=== PATIENT | male | born 1950 | race African-American/Black ===

== ENCOUNTER 2021-08-29 22:56 | Emergency (ER) | payer OTHER ==
[2021-08-30] MEDS ORDERED: HYDROMORPHONE HCL 1 MG/ML INJ ONE ×2 (00:21→02:23)
[2021-08-30 00:39] LABS: Protime INR 1.73
[2021-08-30 00:40] LABS: Absolute Lymphocytes (CBC) 2.1 K/uL (0.7-4.9); Lymphocytes % 18.7 % (15.3-44.8); MPV 7.3 fL (7.6-11.3); RBC Red Blood Cell Count 4.19 M/uL (4.33-5.43)
[2021-08-30 00:58] LABS: Potassium 3.5 mmol/L (3.5-5.1)
--- NOTE | 2021-08-30 02:29 | EDPHYS ---
Physician Documentation [facility] Name: Srikanth Hummel Age: 70 yrs Sex: Male : 1950 Arrival Date: 08/29/2021 Time: 22:56 Bed 20 Private MD: ED Physician Pierre Macedo HPI: 08/29 23:50 This 70 yrs old Black Male presents to ER via Wheelchair with complaints of Knee Pain. cp 23:50 The patient presents with pain, that is chronic. cp 23:50 The complaints affect the right knee. Context: the patient is not able to bear weight, cp the patient is able to ambulate, must have assistance, from family. Onset: The symptoms/episode began/occurred chronically, became worse over past 2-3 days. Patient denies specific injury. Reports may have twisted right knee transferring himself. Patient reports he was performing physical therapy for right knee pain, but has been unable to recently due to pain. Patient has a primary orthopedist at [facility] who recommends knee replacement surgery. Associated signs and symptoms: Pertinent negatives calf tenderness, fever, numbness, rash, warmth. Historical: - Allergies: 23:12 No Known Allergies; sm5 - PMHx: 23:12 Diabetes mellitus; Hypertensive disorder; sm5 - PSHx: 23:12 Left Leg Amputation; sm5 - Immunization history:: Client reports receiving the 2nd dose of the Covid vaccine. - Social history:: Smoking status: Patient denies any tobacco usage or history of. Patient/guardian denies using alcohol. ROS: 23:55 Eyes: Negative for injury, pain, redness, and discharge. cp 23:55 Constitutional: Negative for body aches, chills, fever, poor PO intake. 23:55 ENT: Negative for drainage from ear(s), ear pain, sore throat, difficulty swallowing, difficulty handling secretions. 23:55 Cardiovascular: Negative for chest pain. 23:55 Respiratory: Negative for cough, shortness of breath, wheezing. 23:55 Abdomen/GI: Negative for abdominal pain, vomiting, diarrhea, constipation. 23:55 Back: Negative for pain at rest, pain with movement. 23:55 Skin: Negative for rash. 23:55 Neuro: Negative for altered mental status, dizziness, headache, weakness. 23:55 All other systems are negative. Exam: 23:58 Constitutional: The patient appears in no acute distress, alert, awake, cp non-diaphoretic, non-toxic, well developed, well nourished, in obvious pain, uncomfortable. 23:58 Head/Face: Normocephalic, atraumatic. cp 23:58 Eyes: Periorbital structures: appear normal, Conjunctiva: normal, Sclera: no appreciated abnormality, Lids and lashes: appear normal, bilaterally. 23:58 ENT: External ear(s): are unremarkable, Nose: is normal, Mouth: Lips: moist, Oral mucosa: pink and intact, moist, Posterior pharynx: Airway: no evidence of obstruction, patent. 23:58 Neck: ROM/movement: is normal, is supple, without pain, no range of motions limitations. 23:58 Chest/axilla: Inspection: normal. 23:58 Cardiovascular: Rate: normal, Rhythm: regular, Edema: mild right ankle edema, JVD: is not appreciated. 23:58 Respiratory: the patient does not display signs of respiratory distress, Respirations: normal, no use of accessory muscles, no retractions, labored breathing, is not present, Breath sounds: are clear throughout, no decreased breath sounds, no stridor, no wheezing. 23:58 Abdomen/GI: Exam negative for discomfort, distension, guarding, Inspection: abdomen appears normal. 23:58 Back: pain, is absent, ROM is normal. 23:58 Musculoskeletal/extremity: ROM: limited passive range of motion, in the right knee, limited passive range of motion due to pain, in the right knee, patient unable to fully extend and flex knee due to pain, Perfusion: the extremity is normally perfused throughout, Joints: the right knee displays limited range of motion, painful range of motion, swelling, tenderness. 23:58 Skin: mild superficial abrasions anterior knee with no significant erythema noted. 23:58 Neuro: Orientation: to person, place \T\ time. Mentation: is normal. 23:58 Musculoskeletal/extremity: left below the knee amputation. cp Vital Signs: 23:09 BP 156 / 82; Pulse 91; Resp 21; Temp 98(TE); Pulse Ox 98% on R/A; Weight 104.33 kg; sm5 Height 5 ft. 11 in. (180.34 cm); Pain 12/11; 08/30 00:33 BP 110 / 59; Pulse 73; Resp 18; Pulse Ox 98% on R/A; [facility] 02:28 BP 135 / 77; Pulse 85; Resp 17; Pulse Ox 96% on R/A; 5 08/29 23:09 Body Mass Index 32.08 (104.33 kg, 180.34 cm) [facility] MDM: 08/29 23:37 Patient medically screened. cp 08/30 00:00 Differential diagnosis: fracture, knee effusion, septic joint, sepsis, cellulitis. cp 02:27 Data reviewed: vital signs, nurses notes, lab test result(s), radiologic studies, plain cp films. Test interpretation: by ED physician or midlevel provider: plain radiologic studies. Counseling: I had a detailed discussion with the patient and/or guardian regarding: the historical points, exam findings, and any diagnostic results supporting the discharge/admit diagnosis, lab results, radiology results, the need to transfer to another facility, [facility] does not immediately have the required specialist. Refusal of service: The patient/guardian displays adequate decision making capability and despite a detailed discussion of alternatives, benefits, risks, and consequences refuses: transfer for orthopedic consult. 02:27 ED course: VSS. Pain improved. Attempt at joint aspiration unsuccessful. No ortho cp on-call at this time and available for consult. Discussed with attending, DR Macedo and recommendation for transfer for ortho consultation. Patient refuses at this time and wants to f/u outpatient with primary orthopedist. Discussed immediate concern for septic joint and need for emergent transfer. Patient refuses transfer and understands risk of delaying ortho consultation. 08/29 23:53 Order name: Basic Metabolic Panel; Complete Time: cp 08/30 Interpretation: Normal except: GLUC 107; BUN 19; CRE 1.32; GFR 58. cp 08/29 23:53 Order name: CBC with Diff; Complete Time: cp 08/30 Interpretation: Normal except: WBC 11.2; RBC 4.19; HGB 10.9; HCT 33.0; MCV 78.8; MCH cp 26.0; PLT 488; RDW 17.4; MPV 7.3; EOSINOPHIL % 6.9; EOSA 0.8. 08/29 23:53 Order name: PT-INR; Complete Time: cp 08/29 23:53 Order name: ESR; Complete Time: 01:27 cp 08/29 23:53 Order name: CRP; Complete Time: 01: cp 08/29 23:47 Order name: XRAY Knee RIGHT 3 view cp 08/29 23:53 Order name: Cardiac monitoring; Complete Time: 00:32 cp 08/29 23:53 Order name: IV Saline Lock; Complete Time: 00:08 cp 08/29 23:53 Order name: Labs collected and sent; Complete Time: 00:32 cp 08/29 23:53 Order name: O2 Per Protocol; Complete Time: 00:08 cp 08/29 23:53 Order name: O2 Sat Monitoring; Complete Time: 00:08 cp Administered Medications: 00:15 Drug: Dilaudid (HYDROmorphone) 1 mg Route: IVP; Site: right antecubital; sm5 02:29 Follow up: Response: No adverse reaction 5 02:22 Drug: Dilaudid (HYDROmorphone) 1 mg Route: IVP; Site: right antecubital; sm5 02:36 Follow up: Response: No adverse reaction 5 Disposition: 03:02 Co-signature as Attending Physician, Pierre Macedo MD I agree with the assessment and kdr plan of care. Disposition Summary: 08/30/21 02:28 Discharge Ordered Location: Home cp Problem: new cp Symptoms: have improved cp Condition: Stable cp Diagnosis - Pain in right knee cp Followup: cp - With: Private Physician - When: 1 - 2 days - Reason: Recheck today's complaints Discharge Instructions: - Discharge Summary Sheet cp - Elastic Bandage and RICE Therapy cp - Joint Pain cp Forms: - Medication Reconciliation Form cp - Thank You Letter cp - Antibiotic Education cp - Prescription Opioid Use cp Signatures: Dispatcher [employer] EDPierre Jose MD MD kdr Page, Corey, PA PA cp Saumya Harding RN RN 5 Corrections: (The following items were deleted from the chart) 01: 01:28 Normal except: WBC 11.2; RBC 4.19; HGB 10.9; HCT 33.0; MCV 78.8; MCH 26.0; PLT cp 488; RDW 17.4; MPV 7.3; EOSINOPHIL % 6.9. cp
--- NOTE | 2021-08-30 02:29 | ER ---
Nurse's Notes [facility] Name: Srikanth Hummel Age: 70 yrs Sex: Male : 1950 Arrival Date: 08/29/2021 Time: 22:56 Bed 20 Private MD: Diagnosis: Pain in right knee Presentation: 08/29 23:09 Chief complaint: Patient states: he was seeing a dr at [facility] for his R knee pain, 5 states he "has bone on bone" and needs a knee replacement. pain has been getting worse, unable to straighten knee out now. Coronavirus screen: Vaccine status:. Ebola Screen: No symptoms or risks identified at this time. Initial Sepsis Screen: Does the patient meet any 2 criteria? No. Patient's initial sepsis screen is negative. Does the patient have a suspected source of infection? No. Patient's initial sepsis screen is negative. Risk Assessment: Do you want to hurt yourself or someone else? Patient reports no desire to harm self or others. Onset of symptoms was August 29, 2021. 23:09 Method Of Arrival: Wheelchair [facility] 23:09 Acuity: BRENDAN 4 5 Triage Assessment: 23:12 General: Appears uncomfortable, Behavior is cooperative. Pain: Complains of pain in [facility] right knee. Neuro: Level of Consciousness is awake, alert, obeys commands, Oriented to person, place, time, situation. Cardiovascular: No deficits noted. Capillary refill < 3 seconds Patient's skin is warm and dry. Respiratory: Airway is patent Trachea midline Respiratory effort is even. Musculoskeletal: Reports pain in right knee. Historical: - Allergies: 23:12 No Known Allergies; sm5 - PMHx: 23:12 Diabetes mellitus; Hypertensive disorder; sm5 - PSHx: 23:12 Left Leg Amputation; sm5 - Immunization history:: Client reports receiving the 2nd dose of the Covid vaccine. - Social history:: Smoking status: Patient denies any tobacco usage or history of. Patient/guardian denies using alcohol. Screenin:13 Abuse screen: Denies threats or abuse. Denies injuries from another. Nutritional [facility] screening: No deficits noted. Tuberculosis screening: No symptoms or risk factors identified. Fall Risk Gait- Impaired (20 pts.). Assessment: 23:30 Reassessment: see triage assessment. [facility] 08/30 00:34 Reassessment: No changes from previously documented assessment. Patient and/or family 5 updated on plan of care and expected duration. Pain level reassessed. 02:28 Reassessment: No changes from previously documented assessment. 5 Vital Signs: 08/29 23:09 BP 156 / 82; Pulse 91; Resp 21; Temp 98(TE); Pulse Ox 98% on R/A; Weight 104.33 kg; sm5 Height 5 ft. 11 in. (180.34 cm); Pain 10/10; 08/30 00:33 BP 110 / 59; Pulse 73; Resp 18; Pulse Ox 98% on R/A; sm5 02:28 BP 135 / 77; Pulse 85; Resp 17; Pulse Ox 96% on R/A; sm5 08/29 23:09 Body Mass Index 32.08 (104.33 kg, 180.34 cm) 5 ED Course: 08/29 22:56 Patient arrived in ED. ja2 23:09 Walter Bess PA is PHCP. cp 23:10 Pierre Macedo MD is Attending Physician. cp 23:10 Triage completed. 5 23:13 Arm band placed on right wrist. sm5 23:13 Patient has correct armband on for positive identification. Bed in low position. Call [facility] light in reach. Side rails up X2. 23:49 Saumya Harding, RN is Primary Nurse. 5 08/30 00:10 XRAY Knee RIGHT 3 view In Process Unspecified. EDMS 00:34 Inserted saline lock: 20 gauge in right antecubital area, using aseptic technique. 5 Blood collected. 02:36 No provider procedures requiring assistance completed. IV discontinued, intact, 5 bleeding controlled, No redness/swelling at site. Pressure dressing applied. Administered Medications: 00:15 Drug: Dilaudid (HYDROmorphone) 1 mg Route: IVP; Site: right antecubital; 5 02:29 Follow up: Response: No adverse reaction 5 02:22 Drug: Dilaudid (HYDROmorphone) 1 mg Route: IVP; Site: right antecubital; sm5 02:36 Follow up: Response: No adverse reaction [facility] Medication: 08/29 23:13 VIS not applicable for this client. [facility] Outcome: 08/30 02:28 Discharge ordered by MD. gaytan 02:36 AMA AMA form signed 5 02:36 Condition: stable 02:36 Discharge instructions given to patient, family, Instructed on discharge instructions, follow up and referral plans. Demonstrated understanding of instructions, follow-up care. 02:36 Patient left the ED. sm5 Signatures: Dispatcher [employer] EDMS Walter Bess PA PA cp Alexander, Jessica ja2 Mazur, Sarah, RN RN 5
[2021-08-30 03:16] VITALS: TEMP 98
[2021-08-30 03:19] VITALS: BP 135/77; O2SAT 96
--- NOTE | 2021-08-30 13:40 | RAD REPORT ---
EXAM DESCRIPTION: RAD - Knee Right 3 View - 08/30/2021 12:07 am CLINICAL HISTORY: 70 years Male, PAIN COMPARISON: 05/29/2021. 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 Electronically signed by: Tee Cunha MD 08/30/2021 1:01 AM CDT Due to temporary technical issues with the PACS/Fluency reporting system, reports are being signed by the in house radiologist without review as a courtesy to ensure prompt reporting. The interpreting r adiologist is fully responsible for the content of the report.
== END 2021-08-30 02:36 | disposition home or self-care (01) ==
LOC: ER 22:56
DX: M25.561 Pain in right knee (principal); E11.9 Type 2 diabetes mellitus without complications; I10 Essential (primary) hypertension
CPT/HCPCS: 85025; 80048; 36415; 85610; 85652; 86140; 73562; J1170 ×2

== ENCOUNTER 2022-01-30 17:21 | Emergency (ER) | payer OTHER ==
--- OUTSIDE RECORDS SUMMARY | 2022-01-30 17:34 | XMS REPORT | Continuity of Care Document ---
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 mg, IV Univers (CUBICIN) 06-21 Piggyback, ity of 700 mg in 18:00: 19:18 ONCE, 1 [place] NaCl 0.9% 00 :00 dose, On Medica l (NS) Wed Branch piggyback 06/21/21 at 1300, Administer over 30 Minutes, 100 mL
R ashleigh for Anti-Infec tive: Documented Infection< br>Documen cesar Infection Site: Joint<br&g t;Duration of Therapy: Other (see Comments)< br>Restric cesar use approved by: HAKAN, MELA, CLC ID amLODIPine Yes 10mg Take 10 mg U nivers 10 mg 4-20 by mouth ity of tablet 16:50: daily. [place] 17 Medical Branch losartan-hy Yes 1{tbl} Take 1 Un lazara drochloroth 4-20 tablet by ity of iazide 16:50: mouth [place] 50-12.5 mg 17 daily. Medical per tablet Branch glimepiride Yes 1mg Take 1 mg U nivers (AMARYL) 1 4-20 by mouth ity o f mg tablet 16:50: daily with [place] 17 breakfast. Medical Branch methocarbam Yes 500mg Take 500 U nivers oL 500 mg 4-20 mg by ity of tablet 16:50: mouth 4 [place] 17 (four) Medical times Branch daily as needed for Other (MUSCLE SPASM). pregabalin Yes 75mg Take 75 mg U nivers (LYRICA) 75 4-20 by mouth 2 it y of mg capsule 16:50: (two) [place] 17 times Medical daily. Branch DULoxetine Yes 20mg Take 20 mg U nivers (CYMBALTA) 4-20 by mouth ity o f 20 mg 16:50: daily. [place] capsule 17 Medical Branch melatonin 3 Yes 3mg Take 3 mg U nivers mg tablet 4-20 by mouth ity of 16:50: at bedtime [place] 17 as needed Medical for Branch Insomnia. HYDROcodone Yes 1{tbl} Take 1 Un lazara -acetaminop 4-20 tablet by ity of hen (NORCO) 16:50: mouth [place] 10-325 mg 17 every 6 Medical tablet (six) Branch hours as needed for Pain (scale 7-10). buprenorphi Yes [address] Univers ne HCL 4-20 mcg in ity of (BELBUCA) 16:50: cheeks 2 [place] 750 mcg 17 (two) Medical Film times Branch daily. Indication s: chronic pain ibuprofen Yes 600mg Take 600 Uni vers 600 mg 4-20 mg by ity of tablet 16:50: mouth [place] 17 every 6 Medical (six) Branch hours as needed for Pain (scale 4-6). Diclofenac Yes 1{dose} Apply 1 U nivers Sodium 4-20 Dose to ity of (VOLTAREN 16:50: area(s) [place] ARTHRITIS 17 every 6 Medical PAIN) 1 % (six) Branch gel hours as needed (JOINT PAIN). amLODIPine Yes 10mg Take 10 mg U nivers 10 mg 4-20 by mouth ity of tablet 16:50: daily. [place] 17 Medical Branch losartan-hy Yes 1{tbl} Take 1 Un lazara drochloroth 4-20 tablet by ity of iazide 16:50: mouth [place] 50-12.5 mg 17 daily. Medical per tablet Branch glimepiride Yes 1mg Take 1 mg U nivers (AMARYL) 1 4-20 by mouth ity o f mg tablet 16:50: daily with [place] 17 breakfast. Medical Branch methocarbam Yes 500mg Take 500 U nivers oL 500 mg 4-20 mg by ity of tablet 16:50: mouth 4 [place] 17 (four) Medical times Branch daily as needed for Other (MUSCLE SPASM). pregabalin Yes 75mg Take 75 mg U nivers (LYRICA) 75 4-20 by mouth 2 it y of mg capsule 16:50: (two) [place] [address] times Medical daily. Branch DULoxetine Yes 20mg Take 20 mg U nivers (CYMBALTA) 4-20 by mouth ity o f 20 mg 16:50: daily. [place] capsule 17 Medical Branch melatonin 3 Yes 3mg Take 3 mg U nivers mg tablet 4-20 by mouth ity of 16:50: at bedtime [place] 17 as needed Medical for Branch Insomnia. HYDROcodone Yes 1{tbl} Take 1 Un lazara -acetaminop 4-20 tablet by ity of hen (NORCO) 16:50: mouth [place] 10-325 mg 17 every 6 Medical tablet (six) Branch hours as needed for Pain (scale 7-10). buprenorphi Yes [address] Univers ne HCL 4-20 mcg in ity of (BELBUCA) 16:50: cheeks 2 [place] 750 mcg 17 (two) Medical Film times Branch daily. Indication s: chronic pain ibuprofen Yes 600mg Take 600 Uni vers 600 mg 4-20 mg by ity of tablet 16:50: mouth [place] 17 every 6 Medical (six) Branch hours as needed for Pain (scale 4-6). Diclofenac Yes 1{dose} Apply 1 U nivers Sodium 4-20 Dose to ity of (VOLTAREN 16:50: area(s) [place] ARTHRITIS 17 every 6 Medical PAIN) 1 % (six) Branch gel hours as needed (JOINT PAIN). amLODIPine Yes 10mg Take 10 mg U nivers 10 mg 4-20 by mouth ity of tablet 16:50: daily. [place] 17 Medical Branch losartan-hy Yes 1{tbl} Take 1 Un [place]zara drochloroth 4-20 tablet by ity of iazide 16:50: mouth [place] 50-12.5 mg 17 daily. Medical per tablet Branch glimepiride Yes 1mg Take 1 mg U nivers (AMARYL) 1 4-20 by mouth ity o f mg tablet 16:50: daily with [place] 17 breakfast. Medical Branch methocarbam Yes 500mg Take 500 U nivers oL 500 mg 4-20 mg by ity of tablet 16:50: mouth 4 [place] 17 (four) Medical times Branch daily as needed for Other (MUSCLE SPASM). pregabalin Yes 75mg Take 75 mg U nivers (LYRICA) 75 4-20 by mouth 2 it y of mg capsule 16:50: (two) [place] 17 times Medical daily. Branch DULoxetine Yes 20mg Take 20 mg U nivers (CYMBALTA) 4-20 by mouth ity o f 20 mg 16:50: daily. [place] capsule 17 Medical Branch melatonin 3 0 Yes 3mg Take 3 mg U nivers mg tablet 4-20 by mouth ity of 16:50: at bedtime [place] 17 as needed Medical for Branch Insomnia. HYDROcodone Yes 1{tbl} Take 1 Un lazara -acetaminop 4-20 tablet by ity of hen (NORCO) 16:50: mouth [place] 10-325 mg 17 every 6 Medical tablet (six) Branch hours as needed for Pain (scale 7-10). buprenorphi Yes [address] Univers ne HCL 4-20 mcg in ity of (BELBUCA) 16:50: cheeks 2 [place] 750 mcg 17 (two) Medical Film times Branch daily. Indication s: chronic pain ibuprofen Yes 600mg Take 600 Uni vers 600 mg 4-20 mg by ity of tablet 16:50: mouth [place] 17 every 6 Medical (six) Branch hours as needed for Pain (scale 4-6). Diclofenac Yes 1{dose} Apply 1 U nivers Sodium 4-20 Dose to ity of (VOLTAREN 16:50: area(s) [place] ARTHRITIS 17 every 6 Medical PAIN) 1 % (six) Branch gel hours as needed (JOINT PAIN). amLODIPine Yes 10mg Take 10 mg U nivers 10 mg 4-20 by mouth ity of tablet 16:50: daily. [place] 17 Medical Branch losartan-hy Yes 1{tbl} Take 1 Un lazara drochloroth 4-20 tablet by ity of iazide 16:50: mouth [place] 50-12.5 mg 17 daily. Medical per tablet Branch glimepiride Yes 1mg Take 1 mg U nivers (AMARYL) 1 4-20 by mouth ity o f mg tablet 16:50: daily with [place] 17 breakfast. Medical Branch methocarbam Yes 500mg Take 500 U nivers oL 500 mg 4-20 mg by ity of tablet 16:50: mouth 4 [place] 17 (four) Medical times Branch daily as needed for Other (MUSCLE SPASM). pregabalin Yes 75mg Take 75 mg U nivers (LYRICA) 75 4-20 by mouth 2 it y of mg capsule 16:50: (two) [place] 17 times Medical daily. Branch DULoxetine Yes 20mg Take 20 mg U nivers (CYMBALTA) 4-20 by mouth ity o f 20 mg 16:50: daily. [place] capsule 17 Medical Branch melatonin 3 Yes 3mg Take 3 mg U nivers mg tablet 4-20 by mouth ity of 16:50: at bedtime [place] 17 as needed Medical for Branch Insomnia. HYDROcodone Yes 1{tbl} Take 1 Un lazara -acetaminop 4-20 tablet by ity of hen (NORCO) 16:50: mouth [place] 10-325 mg 17 every 6 Medical tablet (six) Branch hours as needed for Pain (scale 7-10). buprenorphi Yes [address] Univers ne HCL 4-20 mcg in ity of (BELBUCA) 16:50: cheeks 2 [place] 750 mcg 17 (two) Medical Film times Branch daily. Indication s: chronic pain ibuprofen Yes 600mg Take 600 Uni vers 600 mg 4-20 mg by ity of tablet 16:50: mouth [place] 17 every 6 Medical (six) Branch hours as needed for Pain (scale 4-6). Diclofenac Yes 1{dose} Apply 1 U nivers Sodium 4-20 Dose to ity of (VOLTAREN 16:50: area(s) [place] ARTHRITIS 17 every 6 Medical PAIN) 1 % (six) Branch gel hours as needed (JOINT PAIN). amLODIPine Yes 10mg Take 10 mg U nivers 10 mg 4-20 by mouth ity of tablet 16:50: daily. [place] 17 Medical Branch losartan-hy Yes 1{tbl} Take 1 Un lazara drochloroth 4-20 tablet by ity of iazide 16:50: mouth [place] 50-12.5 mg 17 daily. Medical per tablet Branch glimepiride Yes 1mg Take 1 mg U nivers (AMARYL) 1 4-20 by mouth ity o f mg tablet 16:50: daily with [place] 17 breakfast. Medical Branch methocarbam Yes 500mg Take 500 U nivers oL 500 mg 4-20 mg by ity of tablet 16:50: mouth 4 [place] 17 (four) Medical times Branch daily as needed for Other (MUSCLE SPASM). pregabalin Yes 75mg Take 75 mg U nivers (LYRICA) 75 4-20 by mouth 2 it y of mg capsule 16:50: (two) [place] 17 times Medical daily. Branch DULoxetine Yes 20mg Take 20 mg U nivers (CYMBALTA) 4-20 by mouth ity o f 20 mg 16:50: daily. [place] capsule 17 Medical Branch melatonin 3 Yes 3mg Take 3 mg U nivers mg tablet 4-20 by mouth ity of 16:50: at bedtime [place] 17 as needed Medical for Branch Insomnia. HYDROcodone Yes 1{tbl} Take 1 Un lazara -acetaminop 4-20 tablet by ity of hen (NORCO) 16:50: mouth [place] 10-325 mg 17 every 6 Medical tablet (six) Branch hours as needed for Pain (scale 7-10). buprenorphi [address] Univers ne HCL 4-20 mcg in ity of (BELBUCA) 16:50: cheeks 2 [place] 750 mcg 17 (two) Medical Film times Branch daily. Indication s: chronic pain ibuprofen Yes 600mg Take 600 Uni vers 600 mg 4-20 mg by ity of tablet 16:50: mouth [place] 17 every 6 Medical (six) Branch hours as needed for Pain (scale 4-6). Diclofenac Yes 1{dose} Apply 1 U nivers Sodium 4-20 Dose to ity of (VOLTAREN 16:50: area(s) [place] ARTHRITIS 17 every 6 Medical PAIN) 1 % (six) Branch gel hours as needed (JOINT PAIN). DAPTOMYCIN 0 2021- No 710mg QD Infuse 710 Methodi IV 4-20 06-[address] 00:00: 04:59 venous Hospita 00 :00 catheter l daily. lidocaine 0 2021- No 5mL 5 mL, Univer s 1% (PF) 06-20-19 Subcutaneo ity o f (XYLOCAINE) 15:45: 20:19 , ONCE, [place] injection 5 00 :00 1 dose, On Me dical mL Sat06/20/21 at 1045, Routine NaCl 0.9% Yes 10mL 10 mL, Univer s (NS) 419 Slow IV ity of injection 15:40: Push, PRN, [place] 10 mL 36 Starting Medical on Sat06/20/21 at 1040, Until Discontinu ed, Routine, line maintenanc e morpHINE Yes 4mg 4 mg, Slow Uni vers injection 4 - IV Push, ity of mg 09:15: Q4HPRN, [place] 53 Starting Medical on Sat22 at 0415, Until Discontinu ed, Routine, Pain (scale 7-10) HYDROcodone 0 Yes 1{tbl} 1 tablet, Univers -acetaminop 06-20 Oral, ity of hen (NORCO 08:08: Q6HPRN, [place] 5) 5-325 mg 08 Starting Medi jessica tablet 1 on Sat [place] tablet 06/20/21 at 0308, Until Discontinu ed, Routine, Pain (scale 4-6) vancomycin Yes 1500mg 1,500 mg, Univers 1500 mg in 06-20 IV ity of NS 500 mL 08:00: Infusion, [place] as IV 00 Q12H ABX, Medical Piggyback First dose Bran ch RTU 1,500 on e mg 06/20/21 at 0300, Until Discontinu ed, Administer over 90 Minutes
Reason for Anti-Infec tive: Empiric Therapy for Suspected Infection< br>Empiric Therapy Site: Joint
D uration of therapy: 72 hours vancomycin No 1500mg 1,500 mg, Univers 1500 mg in 06-20 04- IV ity of NS 500 mL 08:00: 16:59 [place]fusion, [place] IV 00 :51 Q12H ABX, Medical Piggyback First dose Bran ch RTU 1,500 on e mg 06/20/21 at 0300, Until Discontinu ed, Administer over 90 Minutes
Reason for Anti-Infec tive: Empiric Therapy for Suspected Infection< br>Empiric Therapy Site: Joint
D uration of therapy: 72 hours enoxaparin 0 Yes 40mg 40 mg, Unive rs (LOVENOX) 06-20 Subcutaneo ity of injection 02:00: us, QHS, [place] 40 mg 00 First dose Medical on Sat06/19/21 at 2100, Until Discontinu ed, Routine enoxaparin 0 Yes 40mg 40 mg, Unive rs (LOVENOX) 06-20 Subcutaneo ity of injection 02:00: us, QHS, [place] 40 mg 00 First dose Medical on Sat06/19/21 at 2100, Until Discontinu ed, Routine pregabalin 2022-0 Yes 75mg 75 mg, Unive rs (LYRICA) 4-19 Oral, BID, ity o f capsule 75 01:00: First dose [place] mg 00 on [facility] 06/19/21 at [place] 1999, Until Discontinu ed, Routine pregabalin 2022-0 Yes 75mg 75 mg, Unive rs (LYRICA) 4-19 Oral, BID, ity o f capsule 75 01:00: First dose [place] mg 00 on [facility] 06/19/21 at [place] 1999, Until Discontinu ed, Routine hydroCHLORO 2022-0 Yes 12.5mg 12.5 mg, Univers thiazide 4-18 Oral, ity of (ESIDRIX) 14:00: DAILY, [place] capsule 00 First dose Medica l 12.5 mg on [facility] 06/19/21 at 0900, Until Discontinu ed, Routine losartan 2022-0 Yes 50mg 50 mg, Univers (COZAAR) 4-18 Oral, ity of tablet 50 14:00: DAILY, [place] mg 00 First dose Medical on [facility] 06/19/21 at 0900, Until Discontinu ed, Routine amLODIPine 2-0 Yes 10mg 10 mg, Unive rs (NORVASC) 4-18 Oral, ity of tablet 10 14:00: DAILY, [place] mg 00 First dose Medical on [facility] 06/19/21 at 0900, Until Discontinu ed, Routine hydroCHLORO 2022-0 Yes 12.5mg 12.5 mg, Univers thiazide 06-19 Oral, ity of (ESIDRIX) 14:00: DAILY, [place] capsule 00 First dose Medica l 12.5 mg on [facility] 06/19/21 at 0900, Until Discontinu ed, Routine losartan 2022-0 Yes 50mg 50 mg, Univers (COZAAR) 4-18 Oral, ity of tablet 50 14:00: DAILY, [place] mg 00 First dose Medical on [facility] 06/19/21 at 0900, Until Discontinu ed, Routine amLODIPine 2022-0 Yes 10mg 10 mg, Unive rs (NORVASC) 4-18 Oral, ity of tablet 10 14:00: DAILY, [place] mg 00 First dose Medical on [facility] 06/19/21 at 0900, Until Discontinu ed, Routine methocarbam 2022-0 Yes 500mg 500 mg, Un lazara oL 4-18 Oral, ity of (ROBAXIN) 13:10: QISumrall, [place] tablet 500 56 Starting Medic al mg on Sat06/19/21 at 0810, Until Discontinu ed, Routine, Muscle Spasms methocarbam 2021-0 Yes 500mg 500 mg, Un lazara oL 4-18 Oral, ity of (ROBAXIN) 13:10: QIDPSixes, [place] tablet 500 56 Starting Medic al mg on Sat [place] 06/19/21 at 0810, Until Discontinu ed, Routine, Muscle Spasms melatonin 2021-0 Yes 3mg 3 mg, Univers (MELATIN) 4-18 Oral, ity of tablet 3 mg 13:10: QHSPRN, [place] 30 Starting Medical on Sat06/19/21 at 0810, Until Discontinu ed, Routine, Insomnia melatonin 2021-0 Yes 3mg 3 mg, Univers (MELATIN) 4-18 Oral, ity of tablet 3 mg 13:10: QHSPRN, [place] as 30 Starting Medical on Sat [place] 06/19/21 at 0810, Until Discontinu ed, Routine, Insomnia morpHINE 2021-0 2021- No 4mg 4 mg, Slow Un lazara injection 4 06-19- IV Push, ity of mg 08:40: 08:39 [facility], [place] 31 :31 Starting Medical on Sat [place] 06/19/21 at 0340, Until Sat06/20/21 at 0339, Routine, Pain (scale 7-10) morpHINE 2021-0 2021- No 4mg 4 mg, Slow Un lazara injection 4 06-19 IV Push, ity of mg 08:40: 08:39 [facility], [place] 31 :31 Starting Medical on Sat [place] 06/19/21 at 0340, Until Sat06/20/21 at 0339, Routine, Pain (scale 7-10) ibuprofen 2021-0 Yes 600mg Take 600 Uni vers 600 mg 4-18 mg by ity of tablet 08:11: mouth [place] 10 every 6 Medical (six) Branch hours as needed for Pain (scale 4-6). Diclofenac 2021-0 Yes 1{dose} Apply 1 U nivers Sodium 4-18 Dose to ity of (VOLTAREN 08:11: area(s) [place] ARTHRITIS 10 every 6 Medical PAIN) 1 % (six) Branch gel hours as needed (JOINT PAIN). amLODIPine Yes 10mg Take 10 mg U nivers 10 mg 4-18 by mouth ity of tablet 08:11: daily. [place] 10 Medical Branch losartan-hy 0 Yes 1{tbl} Take 1 Un [place]zara drochloroth 4-18 tablet by ity of iazide 08:11: mouth [place] 50-12.5 mg 10 daily. Medical per tablet Branch glimepiride Yes 1mg Take 1 mg U nivers (AMARYL) 1 4-18 by mouth ity o f mg tablet 08:11: daily with [place] 10 breakfast. Medical Branch methocarbam Yes 500mg Take 500 U nivers oL 500 mg 4-18 mg by ity of tablet 08:11: mouth 4 [place] 10 (four) Medical times Branch daily as needed for Other (MUSCLE SPASM). pregabalin Yes 75mg Take 75 mg U nivers (LYRICA) 75 4-18 by mouth 2 it y of mg capsule 08:11: (two) [place] 10 times Medical daily. Branch DULoxetine Yes 20mg Take 20 mg U nivers (CYMBALTA) 4-18 by mouth ity o f 20 mg 08:11: daily. [place] capsule 10 Medical Branch melatonin 3 0 Yes 3mg Take 3 mg U nivers mg tablet 4-18 by mouth ity of 08:11: at bedtime [place] 10 as needed Medical for Branch Insomnia. HYDROcodone Yes 1{tbl} Take 1 Un lazara -acetaminop 4-18 tablet by ity of hen (NORCO) 08:11: mouth [place] 10-325 mg 10 every 6 Medical tablet (six) Branch hours as needed for Pain (scale 7-10). buprenorphi Yes [address] Univers ne HCL 4-18 mcg in ity of (BELBUCA) 08:11: cheeks 2 [place] 750 mcg 10 (two) Medical Film times Branch daily. Indication s: chronic pain ceFEPIme 0 Yes 2000mg 2,000 mg, Un lazara (MAXIPIME) 4-18 IV ity of 2,000 mg in 01:45: Piggyback, [place] NaCl 0.9% 00 Q8H ABX, Medica l (NS) 50 mL First dose Bra nch MINI-BAG on [place] 06/18/21 at 2044, Until Discontinu ed, Administer over 4 Hours, 50 mL
Reas on for Anti-Infec tive: Documented Infection< br>Documen cesar Infection Site: Joint
D uration of Therapy: 7 days ceFEPIme 0 202- No 2000mg 2,000 mg, U nivers (MAXIPIME) 18 04-19 IV ity of 2,000 mg in 01:45: 15:43 [place], [place] NaCl 0.9% 00 :04 Q8H ABX, Medica l (NS) 50 mL First dose Bra nch MINI-BAG on [place] 06/18/21 at 2044, Until Discontinu ed, Administer over 4 Hours, 50 mL
Reas on for Anti-Infec tive: Documented Infection< br>Documen cesar Infection Site: Joint
D uration of Therapy: 7 days bacitracin 0 Yes PRN, Univers 500 unit/g 18 Starting ity o f ointment 30 00:23: on [place] g tube 00 06/18/[address] Until Discontinu ed, Routine, Intra-op bacitracin 0 Yes PRN, Univers 500 unit/g 18 Starting ity o f ointment 30 00:23: on [place] g tube 00 06/18/[address] Until Discontinu ed, Routine, Intra-op ondansetron 0 Yes 4mg 4 mg, Slow Univers (ZOFRAN 4-17 IV Push, ity of (PF)) 22:32: PRN, 1 [place] injection 4 14 dose, Medical mg Starting Branch on [place] 06/18/21 at 1732, Until Discontinu ed, Routine, Nausea and Vomiting (N/V), PACU FENTanyl PF 0 Yes 25ug 25 mcg, Uni vers (SUBLIMAZE 4-17 Slow IV ity of (PF)) 22:32: Push, [place] injection 14 Q5MIN PRN, Medi jessica 25 mcg 4 doses, Branch Starting on [place] 06/18/21 at 1732, Until Discontinu ed, Routine, Pain (scale 4-6), PACU ondansetron Yes 4mg 4 mg, Slow Univers (ZOFRAN -17 IV Push, ity of (PF)) 22:32: PRN, 1 [place] injection 4 14 dose, Medical mg Starting Branch on [place] 06/18/21 at 1732, Until Discontinu ed, Routine, Nausea and Vomiting (N/V), PACU FENTanyl PF 2021- No 25ug 25 mcg, Un lazara (SUBLIMAZE 06-18 Slow IV ity o f (PF)) 22:32: 08:09 Push, [place] injection 14 :54 Q5MIN PRN, Medi jessica 25 mcg 4 doses, Branch Starting on [place] 06/18/21 at 1732, Until Sat06/20/21 at 0309, Routine, Pain (scale 4-6), PACU ceFEPIme 2021- No 1000mg 1,000 mg, U nivers (MAXIPIME) 06-18 IV ity of 1,000 mg in 18:15: 22:05 [place], [place] NaCl 0.9% 00 :00 ONCE, 1 Medical (NS) 50 mL dose, On Bran h MINI-BAG [place] 06/18/21 at 1315, Administer over 240 Minutes, 50 mL
Reas on for Anti-Infec tive: Documented Infection< br>Documen cesar Infection Site: Joint<br&g t;Duration of Therapy: 7 days gadobenate 2021- No [id number] .2mL/kg 21.38 mL Univers dimeglumine 06-18 9104 (0.2 mL/kg i ty of (MULTIHANCE 17:15: 17:15 ?106.9 Noe as -20 mL) 00 :00 kg), Medical injection Intravenou Bran ch 21.38 mL s, ONCE, 1 dose, On [place] 06/18/21 at 1215, Routine ondansetron Yes 4mg 4 mg, Slow Univers (ZOFRAN 4-17 IV Push, ity of (PF)) 06:54: Q6HPRN, [place] injection 4 33 Starting Medi jessica mg on [place] 06/18/21 at 0154, Until Discontinu ed, Routine, Nausea and Vomiting (N/V) ondansetron 0 Yes 4mg 4 mg, Slow Univers (ZOFRAN 17 IV Push, ity of (PF)) 06:54: Q6HPRN, [place] injection 4 33 Starting Medi jessica mg on [place] 06/18/21 at 0154, Until Discontinu ed, Routine, Nausea and Vomiting (N/V) morpHINE 2021- No 4mg 4 mg, Slow Un [place] injection 4 06-18 04-18 IV Push, ity of mg 06:54: 06:53 Q4HPRN, [place] 31 :31 Starting Medical on [place] Branch 06/18/21 at 0154, Until Sat06/19/21 at 0153, Routine, Pain (scale 7-10) HYDROcodone 2021-0 2021- No 1{tbl} 1 tablet, Univers -acetaminop 06-18 Oral, ity of hen (NORCO 06:54: 06:53 Q6HPRN, [place]e [place] 5) 5-325 mg 29 :29 Starting Medi jessica tablet 1 on [place] Branch tablet 06/18/21 at 0154, Until Sat06/20/21 at 0153, Routine, Pain (scale 4-6) HYDROcodone 2021-2021- No 1{tbl} 1 tablet, Univers -acetaminop 06-18 Oral, ity of hen (NORCO 06:54: 06:53 Q6HPRN, [place] 5) 5-325 mg 29 :29 Starting Medi jessica tablet 1 on [place] Branch tablet 06/18/21 at 0154, Until Sat06/20/21 at 0153, Routine, Pain (scale 4-6) acetaminoph 2021-0 Yes 650mg 650 mg, Un lazara en 17 Oral, ity of (TYLENOL) 06:54: Q6HPRN, [place] tablet 650 27 Starting Medic al mg on [place] 06/18/21 at 0154, Until Discontinu ed, Routine, Pain (scale 1-3) acetaminoph 2021-0 Yes 650mg 650 mg, Un lazara en 17 Oral, ity of (TYLENOL) 06:54: Q6HPRN, [place] tablet 650 27 Starting Medic al mg on [place] 06/18/21 at 0154, Until Discontinu ed, Routine, Pain (scale 1-3) morpHINE 2021- No 4mg 4 mg, Slow Un [place]zara injection 4 06-18 IV Push, ity of mg 06:00: 06:21 ONCE, 1 [place] 00 :00 dose, On Medical [place] 06/18/21 at 0100, STAT HYDROcodone 2021- No 1{tbl} 1 tablet, Univers -acetaminop 06-18 Oral, ity of hen (NORCO 04:00: 03:42 ONCE, 1 [place] 5) 5-325 mg 00 :00 dose, On [facility] jessica tablet 1 [facility] Branch tablet 06/17/21 at 2300, [place]ALL ibuprofen 2021- No 600mg Q6H Take 1 Meth [place] (ADVIL) 600 06-09 09-[address] MG tablet 00:00: 00:00 (600 mg Hosp mi 00 :00 total) by l mouth every 6 (six) hours as needed for mild pain for up to 30 doses. oxyCODone-a 2021- [place] [id number] 1{tbl} Q4H Take 1 [facility] cetaminophe 06-[address] n 00:00: 04:59 mouth Hospita (PERCOCET) 00 :00 every 4 l 5-325 mg (four) per tablet hours as needed for moderate pain for up to 5 days .acute pain. Max Daily Amount: 6 tablets predniSONE 2021- No [id number] 50mg QD Take 1 [facility] (DELTASONE) 04-11 tablet (50 s t 50 mg 00:00: 05:59 mg total) Hospit a tablet 00 :00 by mouth l daily for 5 days. triamcinolo 2021- No [id number] Q.5D Apply [facility] ne 04-[address] (KENALOG) 00:00: 05:59 2 (two) Hosp mi 0.1 % cream 00 :00 times a l day for 21 days. Do not apply for longer than 14 days continuous ly. diclofenac 2021- No [id number] Q.25D Apply [facility] (VOLTAREN) 1-26 07-[address] 1 % gel 00:00: 00:00 4 (four) Hospi ta 00 :00 times a l day. losartan-hy 2022- No 1{tbl} QD Take 1 M [facility] drochloroth 03-[address] iazide 00:00: 05:59 mouth [facility]ospita (Hyzaar) 00 :00 daily. l 50-12.5 mg per tablet amLODIPine 2021- No 10mg QD Take 1 Meth [place] (NORVASC) 03-07 tablet (10 st 10 mg 00:00: 00:00 mg total) Hospit a tablet 00 :00 by mouth l daily. pantoprazol 2021- No 40mg QD Take 1 Met hodi e 03-07 tablet (40 st (PROTONIX) 00:00: 00:00 mg total) H ospita 40 MG EC 00 :00 by mouth l tablet daily for 90 days. pregabalin 2020-03- No [id number] 75mg Q.5D Take 1 [facility] (Lyrica) 75 03-[address] MG capsule 00:00: 05:59 (75 mg Hosp mi 00 :00 total) by l mouth 2 (two) times a day. apixaban 2020-03- [place] [id number] 5mg Q.5D Take 1 Metho di (ELIQUIS) 5 09-20 tablet (5 st mg tablet 00:00: 00:00 mg total) Ho spita 00 :00 by mouth 2 l (two) times a day .blood clot in a deep vein of the [facility] s. glimepiride 2020-03- No [id number] 1mg QD Take 1 [facility] (AmaryL) 1 - tablet (1 st MG tablet 00:00: 00:00 mg total) [facility]ita 00 :00 by mouth l daily before breakfast. DULoxetine 2020-03- No [id number] 20mg QD Take 1 [facility] (Cymbalta) - [address] 20 MG 00:00: 00:00 (20 mg Hospita capsule 00 :00 total) by l mouth daily. methocarbam 2020-03- No [id number] 500mg Q.25D Take 1 [facility] oL 05-[address] (ROBAXIN) 00:00: 00:00 (500 mg Hosp mi 500 MG 00 :00 total) by l tablet mouth 4 (four) times a day as needed for muscle spasms. methocarbam 2020-03- No [id number] TAKE 1 [facility] oL 05-01 9104 TABLET(500 st (ROBAXIN) 00:00: 00:00 MG) BY Hospi ta 500 MG 00 :00 MOUTH FOUR l tablet TIMES DAILY NEEDED FOR MUSCLE SPASMS pantoprazol 2020-03- No QD daily. Met hodeloy e 04-04 st (PROTONIX) 00:00: 00:00 Hospit a 40 MG EC 00 :00 l tablet HYDROcodone 2020-03 Yes 150{tbl Q.25D Take 150 [facility] -acetaminop 1-18 } tablets by st hen (NORCO) 00:00: mouth 4 Hos amadou 10-325 mg 00 (four) l per tablet times a day. pregabalin 2020- No [id number] 75mg Q.5D Take 1 [facility] (Lyrica) 75 11-[address] MG capsule 00:00: 00:00 (75 mg Hosp mi 00 :00 total) by l mouth 2 (two) times a day. DULoxetine 2020- No [id number] 20mg QD Take 1 [facility] (Cymbalta) 11-[address] 20 MG 00:00: 00:00 (20 mg Hospita capsule 00 :00 total) by l mouth daily. apixaban 2020- No [id number] 5mg Q.5D Take 1 Metho di (ELIQUIS) 5 11-01 tablet (5 st mg tablet 00:00: 00:00 mg total) Ho spita 00 :00 by mouth 2 l (two) times a day .blood clot in a deep vein of the extremitie s. methocarbam 2020- No [id number] 500mg Q.25D Take 1 [facility] oL 11-[address] (Robaxin) 00:00: 00:00 (500 mg Hosp mi 500 MG 00 :00 total) by l tablet mouth 4 (four) times a day as needed for muscle spasms. pantoprazol 2020- No [id number] 40mg QD Take 1 [facility] e 11-01-30 tablet (40 st (Protonix) 00:00: 00:00 mg total) H ospita 40 MG EC 00 :00 by mouth l tablet daily. glimepiride 2020- No [id number] 1mg QD Take 1 [facility] (AmaryL) 1 10-3030 tablet (1 st MG tablet 00:00: 00:00 mg total) [facility]ita 00 :00 by mouth l daily before breakfast. melatonin 3 Yes 3mg 3 mg. Metho di mg tablet 10-08 st 00:00: Hospita 00 l diclofenac Yes [id number] YULIA 1 PA [facility] (FLECTOR) 08-[address] 1.3 % patch 00:00: SKIN Q 12 H ospita 12 hour 00 H PRN l [place] 750 Yes Q.5D Take by Met hodi mcg film 10-[address] 00:00: (two) Hospita 00 times a l day. Omnipaque No 100 mL, Mem[facility] ia 300 4- Route: IV, l 22:09: Dosing Gabriel 00 Weight 113.773, kg, ONCE, Start date: 06/03/17 17:09:00 CDT, Stop date: 06/03/17 17:09:00 CDT Omnipaque 2017-0 No 100 mL, [facility] ia 300 4- Route: IV, l 22:09: Dosing Weight 113.773, kg, ONCE, Start date: 06/03/17 17:09:00 CDT, Stop date: 06/03/17 17:09:00 CDT Acetaminoph No 1 tab, PO, Memoria en 300 MG / 3-02 Q6H, PRN l Codeine 22:42: Pain, X 7 Cailin nn Phosphate day, # 40 30 MG Oral tab, 0 Tablet Refill(s), [Tylenol given to with patient Codeine #3] Acetaminoph No 1 tab, PO, Memoria en 300 MG / 02 Q6H, PRN l Codeine 22:42: Pain, X 7 Cailin nn Phosphate 00 day, # 40 30 MG Oral tab, 0 Tablet Refill(s), [Tylenol given to with patient Codeine #3] 200 ML No Notes: Do Memori a Ciprofloxac -02 not l in 2 MG/ML 21:40: refrigerat H ermann Injection 00 e 200 ML No Notes: Do Memori a Ciprofloxac 3-02 not l in 2 MG/ML 21:40: refrigerat H ermann Injection 00 e Acetaminoph No Notes: Keegan nicholas en 10 MG/ML 05-03 Infuse l Injectable 21:26: over 15 Herm gosia Solution 00 minutes Do not exceed 4gm/day of acetaminop hen MEDICATION WASTE Product Size: 1000 mg Product Wasted: ___ mg Ketorolac No 4 days Memor ia 05-03 l 21:26: MEDICATION Gabriel 00 WASTE Product Size: 30 mg Product Wasted: ___ mg Acetaminoph No Notes: Keegan nicholas en 10 MG/ML 05-03 Infuse l Injectable 21:26: over 15 Herm gosia Solution 00 minutes Do not exceed 4gm/day of acetaminop hen MEDICATION WASTE Product Size: 1000 mg Product Wasted: ___ mg Ketorolac 0 No 4 days Memor ia 05-03 l 21:26: MEDICATION Gabriel 00 WASTE Product Size: 30 mg Product Wasted: ___ mg acetaminoph No Route: IV, Memoria en (ANES) 05-03 Drug form: l 21:22: INJ, ONCE, Gabriel 00 Stop date: 05/03/17 15:22:00 [employer] morphine No Route: IV, Mem oria Sulfate 05-03 Drug form: l (ANES) 21:22: INJ, ONCE, Cail[place] nn Stop date: 05/03/17 15:22:00 [employer] acetaminoph No Route: IV, Memoria en (ANES) 05-03 Drug form: l 21:22: INJ, ONCE, Gabriel 00 Stop date: 05/03/17 15:22:00 [employer] morphine 2018-0 No Route: IV, Mem oria Sulfate 3- Drug form: l (ANES) 21:22: INJ, ONCE, Cailin Stop date: 05/03/17 15:22:00 [employer] ceFAZolin 2018-0 No Route: IV, Me moria (ANES) 3- Drug form: l 21:02: INJ, ONCE, [place] 00 Stop date: 05/03/17 15:02:00 [employer] ondansetron 2018-0 No Route: IV, Memoria (ANES) 3- Drug form: l 21:02: INJ, ONCE, [place] 00 Stop date: 05/03/17 15:02:00 [employer] propofol 2018-0 No Route: IV, Mem oria (ANES) 3- Drug form: l 21:02: INJ, ONCE, Gabriel 00 Stop date: 05/03/17 15:02:00 [employer] fentaNYL 2018-0 No Route: IV, Mem oria (ANES) 3 Drug form: l 21:02: INJ, ONCE, [place] 00 Stop date: 05/03/17 15:02:00 [employer] ceFAZolin 2018-0 No Route: IV, Me moria (ANES) 3- Drug form: l 21:02: INJ, ONCE, [place] 00 Stop date: 05/03/17 15:02:00 [employer] ondansetron 2018-0 No Route: IV, Memoria (ANES) 3- Drug form: l 21:02: INJ, ONCE, [place] 00 Stop date: 05/03/17 15:02:00 [employer] propofol 2018-0 No Route: IV, Mem oria (ANES) 3- Drug form: l 21:02: INJ, ONCE, [place] 00 Stop date: 05/03/17 15:02:00 [employer] fentaNYL 2018-0 No Route: IV, Mem oria (ANES) 3- Drug form: l 21:02: INJ, ONCE, [place] Stop date: 05/03/17 15:02:00 [employer] midazolam 2018-0 No Route: IV, Me moria (ANES) 3- Drug form: l 20:57: SOLN, Gabriel 00 ONCE, Stop date: 05/03/17 14:57:00 [employer] midazolam No Route: IV, Me moria (ANES) 05-03 Drug form: l 20:57: SOLN, [place] 00 ONCE, Stop date: 05/03/17 14:57:00 [employer] Lactated No Route: IV, Mem oria Ringers 3-02 Total l Injection 20:15: Volume: Cailin nn IV (ANES) 00 1,000, 1000 mL Start date: 05/03/17 14:15:00 [employer], Stop date: 05/03/17 15:15:00 [employer] Lactated No Route: IV, Mem oria Ringers 3-02 Total l Injection 20:15: Volume: Cailin nn IV (ANES) 00 1,000, 1000 mL Start date: 05/03/17 14:15:00 [employer], Stop date: 05/03/17 15:15:00 [employer] Calcium No 1,000 mL, Memor ia Chloride 05-03 Rate: 25 l 0.0014 18:59: ml/hr, Gabriel MEQ/ML / 00 Infuse Potassium over: 40 Chloride hr, Route: 0.004 IV, Dosing MEQ/ML / Weight Sodium 113.773 Chloride kg, Total 0.103 Volume: MEQ/ML / 1,000, Sodium Start Lactate date: 0.028 05/03/17 MEQ/ML 12:59:00 Injectable [employer], Stop Solution date: 05/03/17 20:00:00 [employer], 2.41, m2 Calcium 0 No 1,000 mL, Memor ia Chloride 05-03 Rate: 25 l 0.0014 18:59: ml/hr, Gabriel MEQ/ML / 00 Infuse Potassium over: 40 Chloride hr, Route: 0.004 IV, Dosing MEQ/ML / Weight Sodium 113.773 Chloride kg, Total 0.103 Volume: MEQ/ML / 1,000, Sodium Start Lactate date: 0.028 05/03/17 MEQ/ML 12:59:00 Injectable [employer], Stop Solution date: 05/03/17 20:00:00 [employer], 2.41, m2 Acetaminoph Yes 1 tab, PO, Memoria en 325 MG / 3-02 Q6H, PRN l Hydrocodone 17:42: Pain, 0 [place] Bitartrate 00 Refill(s) 10 MG Oral Tablet Acetaminoph Yes 1 tab, PO, Memoria en 325 MG / 3-02 Q6H, PRN l Hydrocodone 17:42: Pain, 0 [place] Bitartrate 00 Refill(s) 10 MG Oral Tablet Sodium 2014-03 Yes 1,000 mL, Memori a Chloride 2-23 1000 l 0.154 00:02: ml/hr, [place] MEQ/ML 00 Infuse Injectable Over: 1 Solution hr, Route: IV, 1,000, Drug form: INJ, ONCE, Priority: STAT, Dosing Weight 124.091 kg, Start date: 02/22/15 18:02:00, Duration: 1 doses or times, Stop date: 02/22/15 18:02:00 Saline 2014-03 No Notes: [facility]oria Flush 0.9% 2-23 (Same as: l 00:02: BD Gabriel 00 Posiflush) Sodium 2014-03 Yes 1,000 mL, Memori a Chloride 2-23 1000 l 0.154 00:02: ml/hr, [place] MEQ/ML 00 Infuse Injectable Over: 1 Solution hr, Route: IV, 1,000, Drug form: INJ, ONCE, Priority: STAT, Dosing Weight 124.091 kg, Start date: 02/22/15 18:02:00, Duration: 1 doses or times, Stop date: 02/22/15 18:02:00 Saline 2014-03 No Notes: [facility] Flush 0.9% 2-23 (Same as: l 00:02: BD [place] 00 Posiflush) vancomycin 2014-03 Yes 1 gm, IV, Me moria 1 g/250 2-19 Q12H, X 14 l mL-NaCl 16:30: day, # 28 Cailin nn 0.9% 00 unit, 0 intravenous Refill(s) solution ocular 2014-03 Yes 1 drop, Memoria lubricant 2-19 Each l solution 16:30: Affected Cailin nn 00 Eye, QID, PRN Dry Eyes, # 2 btl, 0 Refill(s) vancomycin 2014-03 Yes 1 gm, IV, Me moria 1 g/250 2-19 Q12H, X 14 l mL-NaCl 16:30: day, # 28 Cailin nn 0.9% 00 unit, 0 intravenous Refill(s) solution ocular 2014-03 Yes 1 drop, Memoria lubricant 2-19 Each l solution 16:30: Affected Cailin nn 00 Eye, QID, PRN Dry Eyes, # 2 btl, 0 Refill(s) Saline 2014-03 No Notes: [facility] Flush 0.9% 2-18 Same as: l 03:00: BD Gabriel 00 Posiflush Sterile Saline 2014-03 No Notes: [facility] Flush 0.9% 2-18 Same as: l 03:00: BD [place] 00 Posiflush Sterile Lubricant 2014-03 No 1 drp, Memori a Eye Drops -17 Route: l 22:40: Each Gabriel 00 Affected Eye, QID, Drug form: SOLN, PRN Dry Eyes, Start date: 02/17/15 16:40:00, Duration: 30 day, Stop date: 03/19/15 16:39:00 Lubricant 2014-03 No 1 drp, Memori a Eye Drops 17 Route: l 22:40: Each Gabriel Affected Eye, QID, Drug form: SOLN, PRN Dry Eyes, Start date: 02/17/15 16:40:00, Duration: 30 day, Stop date: 03/19/15 16:39:00 Hydromorpho 2014-03 No 0.5 mg, Mem oria ne 17 Route: l 20:58: IVP, Gabriel 00 Q5Min, Dosing Weight 120.483, kg, PRN Pain Score 7-10, Start date: 02/17/15 14:58:00, Duration: 4 doses or times, Stop date: Limited # of times Fentanyl 2014-03 No 50 Memoria 2-17 microgram, l 20:58: Route: [place] 00 IVP, Q5Min, Dosing Weight 120.483, kg, PRN Pain Score 7-10, Start date: 02/17/15 14:58:00, Duration: 2 doses or times, Stop date: Limited # of times Acetaminoph 2014-03 No 1,000 mg, M emoria en 17 Route: l 20:58: IVPB, Drug Gabriel 00 form: INJ, ONCE, Dosing Weight 120.483, kg, PRN Pain Score 1-3, Start date: 02/17/15 14:58:00, Duration: 1 doses or times, Stop date: Limited # of times Oxycodone 2014-03 No 5 mg, Memoria 2-17 Route: PO, l 20:58: Drug form: Gabriel 00 TAB, Q4H, Dosing Weight 120.483, kg, PRN Pain Score 4-6, Start date: 02/17/15 14:58:00, Duration: 30 day, Stop date: 03/19/15 14:57:00 Flumazenil 2014-03 No 0.2 mg, Keegan nicholas 217 Route: l 20:58: IVP, PRN, Gabriel 00 Dosing Weight 120.483, kg, PRN Benzodiaze pine Reversal, Initial dose, Start date: 02/17/15 14:58:00, Duration: 30 day, Stop date: 03/19/15 14:57:00 Naloxone 2014-03 No 0.04 mg, Memor ia 2-17 Route: l 20:58: IVP, Gabriel 00 Q2MIN, Dosing Weight 120.483, kg, PRN Narcotic Reversal, Start date: 02/17/15 14:58:00, Duration: 8 doses or times, Stop date: Limited # of times Meperidine 2014-03 No 12.5 mg, Mem oria 2-17 Route: l 20:58: IVP, Gabriel 00 Q30Min, Dosing Weight 120.483, kg, PRN Other -See Comment, For shivering, Start date: 02/17/15 14:58:00, Duration: 2 doses or times, Stop date: Limited # of times Ondansetron 2014-03 No 4 mg, Memor ia 2-17 Route: l 20:58: IVP, ONCE, [place] 00 Dosing Weight 120.483, kg, PRN Nausea & Vomiting, Start date: 02/17/15 14:58:00 Hydromorpho 2014-03 No 0.5 mg, Mem oria ne 2-17 Route: l 20:58: IVP, Gabriel 00 Q5Min, Dosing Weight 120.483, kg, PRN Pain Score 7-10, Start date: 02/17/15 14:58:00, Duration: 4 doses or times, Stop date: Limited # of times Fentanyl 2014-03 No 50 Memoria 2-17 microgram, l 20:58: Route: Gabriel 00 IVP, Q5Min, Dosing Weight 120.483, kg, PRN Pain Score 7-10, Start date: 02/17/15 14:58:00, Duration: 2 doses or times, Stop date: Limited # of times Acetaminoph 2014-03 No 1,000 mg, M emoria en 04-20 Route: l 20:58: IVPB, Drug [place] 00 form: INJ, ONCE, Dosing Weight 120.483, kg, PRN Pain Score 1-3, Start date: 02/17/15 14:58:00, Duration: 1 doses or times, Stop date: Limited # of times Oxycodone 2014-03 No 5 mg, Memoria 2-17 Route: PO, l 20:58: Drug form: [place] 00 TAB, Q4H, Dosing Weight 120.483, kg, PRN Pain Score 4-6, Start date: 02/17/15 14:58:00, Duration: 30 day, Stop date: 03/19/15 14:57:00 Flumazenil 2014-03 No 0.2 mg, Keegan nicholas 04-20 Route: l 20:58: IVP, PRN, [place] 00 Dosing Weight 120.483, kg, PRN Benzodiaze pine Reversal, Initial dose, Start date: 02/17/15 14:58:00, Duration: 30 day, Stop date: 03/19/15 14:57:00 Naloxone 2014-03 No 0.04 mg, Memor ia 17 Route: l 20:58: IVP, [place] 00 Q2MIN, Dosing Weight 120.483, kg, PRN Narcotic Reversal, Start date: 02/17/15 14:58:00, Duration: 8 doses or times, Stop date: Limited # of times Meperidine 2014-03 No 12.5 mg, Mem oria 2-17 Route: l 20:58: IVP, Gabriel 00 Q30Min, Dosing Weight 120.483, kg, PRN Other -See Comment, For shivering, Start date: 02/17/15 14:58:00, Duration: 2 doses or times, Stop date: Limited # of times Ondansetron 2014-03 No 4 mg, Memor ia 2-17 Route: l 20:58: IVP, ONCE, Dosing Weight 120.483, kg, PRN Nausea & Vomiting, Start date: 02/17/15 14:58:00 Saline 2014-03 No Notes: Memoria Flush 0.9% 2-17 Same as: l 19:33: BD [place] 00 Posiflush Sterile Acetaminoph 2014-03 No Notes: Keegan nicholas en 325 MG / 2-17 (Same as: l Hydrocodone 19:33: [place] Cailin nn Bitartrate 00 325/5) Do 5 MG Oral not exceed Tablet 4gm/day of acetaminop hen. Saline 2014-03 No Notes: Memoria Flush 0.9% 2-17 Same as: l 19:33: BD [place] 00 Posiflush Sterile Acetaminoph 2014-03 No Notes: Keegan nicholas en 325 MG / 2-17 (Same as: l Hydrocodone 19:33: [place] Cailin nn Bitartrate 00 325/5) Do 5 MG Oral not exceed Tablet 4gm/day of acetaminop hen. Dilaudid 2014-03 No Notes: Memoria 2-17 (Same as: l 18:54: Dilaudid) Ativan 2014-03 No Notes: [facility]oria 2-17 (Same as: l 18:54: Ativan) Dilaudid 2014-03 No Notes: Memoria 2-17 (Same as: l 18:54: Dilaudid) Ativan 2014-03 No Notes: Memoria 2-17 (Same as: l 18:54: Ativan) Calcium 2014-03 No 1,000 mL, Memor ia Chloride 2-17 Rate: 25 l 0.0014 17:49: ml/hr, Gabriel MEQ/ML / 00 Infuse Potassium over: 40 Chloride hr, Route: 0.004 IV, Dosing MEQ/ML / Weight Sodium 120.483 Chloride kg, Total 0.103 Volume: MEQ/ML / 1,000, Sodium Start Lactate date: 0.028 02/17/15 MEQ/ML 11:49:00, Injectable Duration: Solution 30 day, Stop date: 03/19/15 11:48:00 Calcium 2014-03 No 1,000 mL, Memor ia Chloride 2-17 Rate: 25 l 0.0014 17:49: ml/hr, [place] MEQ/ML / 00 Infuse Potassium over: 40 Chloride hr, Route: 0.004 IV, Dosing MEQ/ML / Weight Sodium 120.483 Chloride kg, Total 0.103 Volume: MEQ/ML / 1,000, Sodium Start Lactate date: 0.028 02/17/15 MEQ/ML 11:49:00, Injectable Duration: Solution 30 day, Stop date: 03/19/15 11:48:00 hydrochloro 2014-03 No Notes: Keegan nicholas thiazide 25 2-17 (Same as: l mg oral 15:00: Hydrodiuri Herm gosia tablet 00 l) With food. meloxicam 2014-03 No Notes: Memori a 2-17 (Same as: l 15:00: Mobic) Hydrochloro 2014-03 No 1 tab, Keegan nicholas thiazide 2-17 Route: PO, l 12.5 MG / 15:00: Drug Form: [place] Losartan 00 TAB, Potassium Dosing 50 MG Oral Weight Tablet 114.091, kg, Daily, Start date: 02/17/15 9:00:00, Duration: 30 day, Stop date: 03/18/15 9:00:00 120 ACTUAT 2014-03 No Notes: Memor ia Fluticasone 2-17 (Same as: l propionate 15:00: Flonase) [place] 0.05 00 MG/ACTUAT Nasal Inhaler Amlodipine 2014-03 No Notes: Memor ia 2-17 (Same as: l 15:00: Norvasc) Cozaar 2014-03 No Notes: Memoria 2-17 (Same as: l 15:00: Cozaar) hydrochloro 2014-03 No Notes: Keegan nicholas thiazide 25 2-17 (Same as: l mg oral 15:00: Hydrodiuri Herm gosia tablet 00 l) With food. meloxicam 2014-03 No Notes: Memori a 2-17 (Same as: l 15:00: Mobic) Hydrochloro 2014-03 No 1 tab, Keegan nicholas thiazide 2-17 Route: PO, l 12.5 MG / 15:00: Drug Form: [place] Losartan 00 TAB, Potassium Dosing 50 MG Oral Weight Tablet 114.091, kg, Daily, Start date: 02/17/15 9:00:00, Duration: 30 day, Stop date: 03/18/15 9:00:00 120 ACTUAT 2014-03 No Notes: Memor ia Fluticasone 2-17 (Same as: l propionate 15:00: Flonase) [place] 0.05 00 MG/ACTUAT Nasal Inhaler Amlodipine 2014-03 No Notes: Memor ia 2-17 (Same as: l 15:00: Norvasc) Cozaar 2014-03 No Notes: Memoria 2-17 (Same as: l 15:00: Cozaar) vancomycin 2014-03 No 2001 mg: Me moria + Sodium 2-17 infuse l Chloride 11:00: over 2.5 Cailin nn 0.9% IV 250 00 hours mL MEDICATION WASTE Product Size: 1000 mg Product Wasted: ___ mg vancomycin 2014-03 No 2000 mg: Me moria + Sodium 2-17 infuse l Chloride 11:00: over 2.5 Cailin nn 0.9% IV 250 00 hours mL MEDICATION WASTE Product Size: 1000 mg Product Wasted: ___ mg meropenem + 2014-03 No Notes: Keegan nicholas Sodium 2-17 Same as l Chloride 04:00: Merrem [place] 0.9% IV 100 00 MEDICATION mL WASTE Product Size: 500 mg Product Wasted: ___ mg meropenem + 2014-03 No Notes: Keegan nicholas Sodium 2-17 Same as l Chloride 04:00: Merrem [place] 0.9% IV 100 00 MEDICATION mL WASTE Product Size: 500 mg Product Wasted: ___ mg Neurontin 2014-03 No Notes: Memori a 2-16 (Same as: l 21:00: Neurontin) vancomycin 2014-03 No 2001 mg: Me moria + Sodium 2-16 infuse l Chloride 21:00: over 2.5 Cailin nn 0.9% IV 250 00 hours mL MEDICATION WASTE Product Size: 1000 mg Product Wasted: ___ mg cadexomer 2014-03 No Notes: Memori a iodine 2-16 Non-Formul l 0.009 MG/MG 21:00: sushma Drug. H ermann Topical Gel 00 For [Iodosorb] external use only. (Same As: Iodosorb) Neurontin 2014-03 No Notes: Memori a 2-16 (Same as: l 21:00: Neurontin) [place] vancomycin 2014-03 No 2001 mg: Me moria + Sodium 2-16 infuse l Chloride 21:00: over 2.5 Cailin nn 0.9% IV 250 00 hours mL MEDICATION WASTE Product Size: 1000 mg Product Wasted: ___ mg cadexomer 2014-03 No Notes: Memori a iodine 2-16 Non-Formul l 0.009 MG/MG 21:00: sushma Drug. H ermann Topical Gel 00 For [Iodosorb] external use only. (Same As: Iodosorb) meropenem + 2014-03 No Notes: Keegan nicholas Sodium 2-16 Same as l Chloride 20:30: Merrem [place] 0.9% IV 100 00 MEDICATION mL WASTE Product Size: 500 mg Product Wasted: ___ mg meropenem + 2014-03 No Notes: Keegan nicholas Sodium 2-16 Same as l Chloride 20:30: Merrem [place] 0.9% IV 100 00 MEDICATION mL WASTE Product Size: 500 mg Product Wasted: ___ mg gabapentin 2014-03 No Notes: Memor ia 600 MG Oral 2-16 (Same as: l Tablet 19:00: Neurontin) Cail[place] nn gabapentin 2014-03 No Notes: Memor ia 600 MG Oral 2-16 (Same as: l Tablet 19:00: Neurontin) Cailin nn Insulin, 2014-03 No Notes: Memoria Aspart, 2-16 Roll in l Human 18:58: palms of [place] 00 hands gently; Do not shake vigorously . (Same as: NovoLOG) "single patient use only" Stable for 28 days at room temperatur e. Expires in days from ____Date Dextrose 2014-03 No 12.5 gm, Memor ia 50% Syringe 2-16 25 mL, l 18:58: Route: Gabriel 00 IVP, Drug Form: INJ, Dosing Weight 114.091, kg, PRN, PRN Blood Glucose Results, Start date: 02/16/15 12:58:00, Duration: 30 day, Stop date: 03/18/15 12:57:00 Glucagon 2014-03 No 1 mg, Memoria 2-16 Route: IM, l 18:58: Drug form: Gabriel 00 PDR/INJ, PRN, Dosing Weight 114.091, kg, PRN Blood Glucose Results, Start date: 02/16/15 12:58:00, Duration: 30 day, Stop date: 03/18/15 12:57:00 Insulin, 2014-03 No Notes: Memoria Aspart, 2-16 Roll in l Human 18:58: palms of Gabriel 00 hands gently; Do not shake vigorously . (Same as: NovoLOG) "single patient use only" Stable for 28 days at room temperatur e. Expires in days from ____Date Dextrose 2014-03 No 12.5 gm, Memor ia 50% Syringe 2-16 25 mL, l 18:58: Route: [place] 00 IVP, Drug Form: INJ, Dosing Weight 114.091, kg, PRN, PRN Blood Glucose Results, Start date: 02/16/15 12:58:00, Duration: 30 day, Stop date: 03/18/15 12:57:00 Glucagon 2014-03 No 1 mg, Memoria 2-16 Route: IM, l 18:58: Drug form: [place] 00 PDR/INJ, PRN, Dosing Weight 114.091, kg, PRN Blood Glucose Results, Start date: 02/16/15 12:58:00, Duration: 30 day, Stop date: 03/18/15 12:57:00 Labetalol 2014-03 No 20 mg, 4 Keegan nicholas 2-16 mL, Route: l 18:46: IVP, Drug form: INJ, Q6H, Dosing Weight 114.091, kg, PRN Hypertensi on, Start date: 02/16/15 12:46:00, Duration: 30 day, Stop date: 03/18/15 12:45:00 Labetalol 2014-03 No 20 mg, 4 Keegan nicholas 2-16 mL, Route: l 18:46: IVP, Drug form: INJ, Q6H, Dosing Weight 114.091, kg, PRN Hypertensi on, Start date: 02/16/15 12:46:00, Duration: 30 day, Stop date: 03/18/15 12:45:00 Morphine 2014-03 No Notes: Memoria 2-16 (Same l 18:45: as:MORPhin [place] 00 e Sulfate) Tylenol 2014-03 No Notes: Do Memor ia 2-16 not exceed l 18:45: 4 gm/day. [place] 00 (Same as: Tylenol) Morphine 2014-03 No Notes: Memoria 2-16 (Same l 18:45: as:MORPhin [place] 00 e Sulfate) Tylenol 2014-03 No Notes: Do Memor ia 2-16 not exceed l 18:45: 4 gm/day. [place] 00 (Same as: Tylenol) amLODIPine 2014-03 Yes 10 mg = 1 Me moria 10 mg oral 2-16 tab, PO, l tablet 17:30: Daily, 0 [place] 00 Refill(s) meloxicam 2014-03 Yes 15 mg = 1 Mem oria 15 mg oral 2-16 tab, PO, l tablet 17:30: Daily, 0 [place] 00 Refill(s) Hydrochloro 2014-03 Yes 1 tab, PO, Memoria thiazide 2-16 Daily, 0 l 12.5 MG / 17:30: Refill(s) [place] Losartan 00 Potassium 50 MG Oral Tablet cadexomer 2014-03 Yes 1 appl, Memor ia iodine 2-16 TOP, l 0.009 MG/MG 17:30: Daily, Herm gosia Topical Gel 00 Apply to [Iodosorb] affected areas. lt. foot, # 10 gm, 1 Refill(s) glimepiride 2014-03 Yes 2 mg = 1 Me moria 2 mg oral 2-16 tab, PO, l tablet 17:30: Daily, 0 [place] 00 Refill(s) 120 ACTUAT 2014-03 Yes 1 spray, Mem oria Fluticasone 2-16 NASAL, l propionate 17:30: Daily, 0 [place] 0.05 00 Refill(s) MG/ACTUAT Nasal Inhaler gabapentin 2014-03 Yes 600 mg = 1 M emoria 600 MG Oral 2-16 tab, PO, l Tablet 17:30: TID, 0 [place] 00 Refill(s) amLODIPine 2014-03 Yes 10 mg = 1 Me moria 10 mg oral 2-16 tab, PO, l tablet 17:30: Daily, 0 [place] 00 Refill(s) meloxicam 2014-03 Yes 15 mg = 1 Mem oria 15 mg oral 2-16 tab, PO, l tablet 17:30: Daily, 0 [place] 00 Refill(s) Hydrochloro 2014-03 Yes 1 tab, PO, Memoria thiazide 2-16 Daily, 0 l 12.5 MG / 17:30: Refill(s) [place] Losartan 00 Potassium 50 MG Oral Tablet cadexomer 2014-03 Yes 1 appl, Memor ia iodine 2-16 TOP, l 0.009 MG/MG 17:30: Daily, Herm gosia Topical Gel 00 Apply to [Iodosorb] affected areas. lt. foot, # 10 gm, 1 Refill(s) glimepiride 2014-03 Yes 2 mg = 1 Me moria 2 mg oral 2-16 tab, PO, l tablet 17:30: Daily, 0 [place] 00 Refill(s) 120 ACTUAT 2014-03 Yes 1 spray, Mem oria Fluticasone 2-16 NASAL, l propionate 17:30: Daily, 0 [place] 0.05 00 Refill(s) MG/ACTUAT Nasal Inhaler gabapentin 2014-03 Yes 600 mg = 1 M emoria 600 MG Oral 2-16 tab, PO, l Tablet 17:30: TID, 0 Gabriel 00 Refill(s) BD Normal 2014-03 No Notes: Memori a Saline 2-16 Same as: l Flush 17:19: BD [place] 00 Posiflush Sterile BD Normal 2014-03 No Notes: Memori a Saline 2-16 Same as: l Flush 17:19: BD [place] 00 Posiflush Sterile Lisinopril- Yes Mat Unknown Memoria Hydrochloro 10-01 Daniel l thiazide 02:07: Hydrocodone Yes Amt Unknown Memoria -Acetaminop 10-01 Daniel l hen 02:07: Baclofen Yes Mat Unknown Mem oria -31 Daniel l 02:07: Amlodipine Yes Mat Unknown M emoria Besylate 10-01 Daniel l 02:07: Gabriel 12 Gabapentin Yes Mat Unknown M emoria 7-31 Daniel l 02:07: Gabriel 12 Glimepiride 2014- Yes Mat Unknown Memoria 7-31 Daniel l 02:07: Lisinopril- Yes Mat Unknown Memoria Hydrochloro 7-31 Daniel l thiazide 02:07: Hydrocodone Yes Mat Unknown Memoria -Acetaminop 7-31 Daniel l hen 02:07: Baclofen Yes Mat Unknown Mem oria 7-31 Daniel l 02:07: Amlodipine Yes Mat Unknown M emoria Besylate 7-31 Daniel l 02:07: Gabapentin Yes Mat Unknown M emoria 7-31 Daniel l 02:07: Glimepiride Yes Mat Unknown Memoria 7-31 Daniel l 02:07: Silvadene Yes Mat 1 Memor ia 7-30 Daniel applicatio l 00:00: n to [place] 00 affected area Clindamycin Yes Mat one tab Memoria 300 mg 14 d 7-30 Daniel l 00:00: [place] 00 Cipro Yes Mat 1 tablet Memor ia 7-30 Daniel l 00:00: [place] 00 Silvadene Yes Mat 1 Memor ia 7-30 Daniel applicatio l 00:00: n to [place] 00 affected area Clindamycin Yes Mat one tab Memoria 300 mg 14 d 7-30 Daniel l 00:00: [place] 00 Cipro Yes Mat 1 tablet Memor ia 7-30 Daniel l 00:00: [place] 00 Glimepiride 2013- Yes Mat Unknown Memoria 3-05 Daniel l 05:10: Gabriel 03 Gabapentin 2013- Yes Mat Unknown M emoria 3-05 Daniel l 05:10: [place] 03 Amlodipine 2013- Yes Mat Unknown M emoria Besylate 3-05 Daniel l 05:10: [place] 03 Hydrocodone Yes Mat Unknown Memoria -Acetaminop 3-05 Daniel l hen 05:10: [place] 03 Baclofen 2013- Yes Mat Unknown Mem oria 3-05 Daniel l 05:10: [place] 03 Glimepiride Yes Mat Unknown Memoria 3-05 Daniel l 05:10: Gabriel Gabapentin Yes Mat Unknown M emoria 3-05 Daniel l 05:10: [place] 03 Amlodipine Yes Mat Unknown M emoria Besylate 3-05 Daniel l 05:10: [place] 03 Hydrocodone Yes Mat Unknown Memoria -Acetaminop 3-05 Daniel l hen 05:10: [place] 03 Baclofen Yes Mat Unknown Mem oria 3-05 Daniel l 05:10: Gabriel Urea Yes Mat 1 Memoria 3-04 Daniel applicatio l 00:00: n to [place] 00 affected area Bactroban Yes Mta 1 Memor ia 3-04 Daniel applicatio l 00:00: n to [place] 00 affected area small amount Urea Yes Mat 1 Memoria 3-04 Daniel applicatio l 00:00: n to [place] 00 affected area Bactroban Yes Mat 1 Memor ia 3-04 Daniel applicatio l 00:00: n to [place] 00 affected area small amount Acetaminoph Yes 1-2 tab, Me moria en 325 MG / 2-21 PO, Q4-6H, l Hydrocodone 08:46: Pain, # 20 [place] Bitartrate 00 tab, 0 5 MG Oral Refill(s) Tablet [[place] 5/325] baclofen Yes 1-2 tabs, M emoria mg oral 2-21 PO, TID, # l tablet 08:46: 30 tab, 0 Gurinder n 00 Refill(s) Ibuprofen Yes 600 mg = 1 Me moria 600 MG Oral 2-21 tab, PO, l Tablet 08:46: Q6H, Pain, Cailin nn [Motrin] 00 take with food, # 30 tab, 0 Refill(s)t vicky with food Acetaminoph Yes 1-2 tab, Me moria en 325 MG / 2-21 PO, Q4-6H, l Hydrocodone 08:46: Pain, # 20 Gabriel Bitartrate 00 tab, 0 5 MG Oral Refill(s) Tablet [[place] 5/325] baclofen Yes 1-2 tabs, M emoria mg oral 2-21 PO, TID, # l tablet 08:46: 30 tab, 0 Gurinder n 00 Refill(s) Ibuprofen Yes 600 mg = 1 Me moria 600 MG Oral 2-21 tab, PO, l Tablet 08:46: Q6H, Pain, Cailin nn [Motrin] 00 take with food, # 30 tab, 0 Refill(s)t vicky with food Motrin No 600 mg, 1 Memori a 2-21 tab, l 06:54: Route: PO, [place] 00 Drug form: TAB, ONCE, Dosing Weight 114.091, kg, Priority: STAT, Start date: 04/24/13 0:54:00, Stop date: 04/24/13 0:54:00(Sa me as: Motrin) "Do Not Crush" Take with food. Motrin No 600 mg, 1 Memori a 2-21 tab, l 06:54: Route: PO, [place] Drug form: TAB, ONCE, Dosing Weight 114.091, kg, Priority: STAT, Start date: 04/24/13 0:54:00, Stop date: 04/24/13 0:54:00(Sa me as: Motrin) "Do Not Crush" Take with food. Valium No 5 mg, 1 Memoria 2-21 tab, l 06:53: Route: PO, [place] 00 Drug form: TAB, ONCE, Dosing Weight 114.091, kg, Start date: 04/24/13 0:53:00, Stop date: 04/24/13 0:53:00(Sa me as: Valium) Acetaminoph No 1 tab, Keegan nicholas en 325 MG / -21 Route: PO, l Hydrocodone 06:53: Drug Form: [place] Bitartrate 00 TAB, 5 MG Oral Dosing Tablet Weight [[place] 114.091, 5/325] kg, ONCE, Start date: 04/24/13 0:53:00, Stop date: 04/24/13 0:53:00(Sa me as: [place] 325/5) Do not exceed 4gm/day of acetaminop hen. Valium No 5 mg, 1 Memoria 2-21 tab, l 06:53: Route: PO, [place] 00 Drug form: TAB, ONCE, Dosing Weight 114.091, kg, Start date: 04/24/13 0:53:00, Stop date: 04/24/13 0:53:00([facility] as: Valium) Acetaminoph 2014-0 No 1 tab, Keegan nicholas en 325 MG / 04-24 Route: PO, l Hydrocodone 06:53: Drug Form: [place] Bitartrate 00 TAB, 5 MG Oral Dosing Tablet Weight [[place] 114.091, 5/325] kg, ONCE, Start date: 04/24/13 0:53:00, Stop date: 04/24/13 0:53:00([facility] as: [place] 325/5) Do not exceed 4gm/day of acetaminop hen. [facility] No [facility] Losartan Losartan No Losartan Potassium-H Potassium-H Potassium- CTZ CTZ HCTZ amLODIPine amLODIPine No amLODIPine Benzoate Benzoate Benzoate HYDROcodone HYDROcodone No HYDROcodon -Acetaminop -Acetaminop e-Acetamin hen hen ophen Methocarbam Methocarbam No Methocarba ol ol mol DULoxetine DULoxetine No DULoxetine HCl HCl HCl Ibuprofen Ibuprofen No Ibuprofen Glimepiride Glimepiride No Glimepirid e Amlodipine Amlodipine No Amlodipine & Diet & Diet & Diet Manage Prod Manage Prod Manage Prod Diclofenac Diclofenac No Diclofenac [facility] No [facility] Losartan Losartan No Losartan Potassium-H Potassium-H Potassium- CTZ CTZ HCTZ amLODIPine amLODIPine No amLODIPine Benzoate Benzoate Benzoate HYDROcodone HYDROcodone No HYDROcodon -Acetaminop -Acetaminop e-Acetamin hen hen ophen Methocarbam Methocarbam No Methocarba ol ol mol DULoxetine DULoxetine No DULoxetine HCl HCl HCl Ibuprofen Ibuprofen No Ibuprofen Glimepiride Glimepiride No Glimepirid e Amlodipine Amlodipine No Amlodipine & Diet & Diet & Diet Manage Prod Manage Prod Manage Prod Diclofenac Diclofenac No Diclofenac [facility] No [facility] Losartan Losartan No Losartan Potassium-H Potassium-H Potassium- CTZ CTZ HCTZ amLODIPine amLODIPine No amLODIPine Benzoate Benzoate Benzoate Methocarbam Methocarbam No Methocarba ol ol mol Glimepiride Glimepiride No Glimepirid e amLODIPine amLODIPine No amLODIPine Benzoate Benzoate Benzoate Ibuprofen Ibuprofen No Ibuprofen [place] No [place] Losartan Losartan No Losartan Potassium-H Potassium-H Potassium- CTZ CTZ HCTZ DULoxetine DULoxetine No DULoxetine HCl HCl HCl Amlodipine Amlodipine No Amlodipine & Diet & Diet & Diet Manage Prod Manage Prod Manage Prod Diclofenac Diclofenac No Diclofenac HYDROcodone HYDROcodone No HYDROcodon -Acetaminop -Acetaminop e-Acetamin hen hen [place] HYDROcodone HYDROcodone No HYDROcodon -Acetaminop -Acetaminop e-Acetamin hen hen ophen Methocarbam Methocarbam No Methocarba ol ol mol DULoxetine DULoxetine No DULoxetine HCl HCl HCl acetaminoph acetaminoph No acetaminop Jennifer en 500 mg en 500 mg hen 500 mg [facility] tablet Take tablet Take tablet dic 2 tablet(s) 2 tablet(s) Take 2 Sports EVERY 8 EVERY 8 tablet(s) Medi beena HOURS by HOURS by EVERY 8 e oral route. oral route. HOURS by oral route. Ibuprofen Ibuprofen No Ibuprofen amlodipine amlodipine No amlodipine Jennifer 10 mg 10 mg 10 mg [facility] tablet tablet tablet dic Sports Medicin e [place] 750 [place] 750 No [place] Jennifer mcg buccal mcg buccal 750 mcg [facility] film film buccal dic DISSOLVE 1 DISSOLVE 1 film Spo rts FILM BY FILM BY DISSOLVE 1 Med icin MOUTH EVERY MOUTH EVERY FILM BY e 12 HOURS 12 HOURS MOUTH EVERY 12 HOURS clindamycin clindamycin No clindamyci Jennifer HCl 300 mg HCl 300 mg n HCl 300 [facility] capsule capsule mg capsule dic TAKE 1 TAKE 1 TAKE 1 Sports CAPSULE BY CAPSULE BY CAPSULE BY Medicin MOUTH EVERY MOUTH EVERY MOUTH e 8 HOURS 8 HOURS EVERY 8 HOURS colchicine colchicine No colchicine Jennifer 0.6 mg 0.6 mg 0.6 mg [facility] tablet TAKE tablet TAKE tablet dic 1 TABLET BY 1 TABLET BY TAKE 1 Sports MOUTH TWICE MOUTH TWICE TABLET BY Medicin DAILY DAILY MOUTH e TWICE DAILY daptomycin daptomycin No daptomycin Jennifer 500 mg 500 mg 500 mg [facility] intravenous intravenous intravenou dic solution solution s solution S ports Medicin e diclofenac diclofenac No diclofenac Jennifer 1 % topical 1 % topical 1 % O r[facility]ope gel APPLY gel APPLY topical di c TOPICALLY TOPICALLY gel APPLY Sports TO THE TO THE TOPICALLY Medici n AFFECTED AFFECTED TO THE e AREA FOUR AREA FOUR AFFECTED TIMES DAILY TIMES DAILY AREA FOUR TIMES DAILY diclofenac diclofenac No diclofenac Jennifer epolamine epolamine epolamine [facility] 1.3 % 1.3 % 1.3 % dic transdermal transdermal transderma Sports 12 hour 12 hour l 12 hour Medi beena patch APPLY patch APPLY patch e 1 PATCH 1 PATCH APPLY 1 TOPICALLY TOPICALLY PATCH TO THE SKIN TO THE SKIN TOPICALLY TWICE DAILY TWICE DAILY TO THE SKIN TWICE DAILY doxycycline doxycycline No doxycyclin Jennifer hyclate 100 hyclate 100 e hyclate [facility] mg capsule mg capsule 100 mg d ic Take 1 Take 1 capsule Sports capsule capsule Take 1 Medicin twice a day twice a day capsule e by oral by oral twice a route for 7 route for 7 day by days. days. oral route for 7 days. duloxetine duloxetine No duloxetine Jennifer 20 mg 20 mg 20 mg [facility] capsule,del capsule,del capsule,de dic ayed ayed layed Sports release release release Medici n TAKE 1 TAKE 1 TAKE 1 e CAPSULE BY CAPSULE BY CAPSULE BY MOUTH DAILY MOUTH DAILY MOUTH DAILY Eliquis 5 Eliquis 5 No Eliquis 5 Jennifer mg tablet mg tablet mg tablet [facility] TAKE 1 TAKE 1 TAKE 1 dic TABLET BY TABLET BY TABLET BY Sports MOUTH TWICE MOUTH TWICE MOUTH Medicin DAILY DAILY TWICE e DAILY Glimepiride Glimepiride No Glimepirid e fluticasone fluticasone No fluticason Jennifer propionate propionate e Ort hope 50 50 propionate dic mcg/actuati mcg/actuati 50 S ports on nasal on nasal mcg/actuat M edicin spray,suspe spray,suspe ion nasal e nsion USE 2 nsion USE 2 spray,susp SPRAYS IN SPRAYS IN ension USE EACH EACH 2 SPRAYS NOSTRIL NOSTRIL IN EACH TWICE DAILY TWICE DAILY NOSTRIL TWICE DAILY glimepiride glimepiride No glimepirid Jennifer 1 mg tablet 1 mg tablet e 1 mg [facility] tablet dic Sports Medicin e hydrocodone hydrocodone No hydrocodon Jennifer 10 10 e 10 [facility] mg-acetamin mg-acetamin mg-acetami dic ophen 325 ophen 325 nophen 325 Sports mg tablet mg tablet mg tablet Medicin TAKE 1 TAKE 1 TAKE 1 e TABLET BY TABLET BY TABLET BY MOUTH FOUR MOUTH FOUR MOUTH FOUR TIMES DAILY TIMES DAILY TIMES DAILY ibuprofen ibuprofen No ibuprofen Jennifer 600 mg 600 mg 600 mg [facility] tablet tablet tablet dic Sports Medicin e methocarbam methocarbam No methocarba Jennifer ol 500 mg ol 500 mg mol 500 mg [facility] tablet Take tablet Take tablet dic 1 tablet 4 1 tablet 4 Take 1 S ports times a day times a day tablet 4 Medicin by oral by oral times a e route as route as day by needed for needed for oral route 30 days. 30 days. as needed for 30 days. oxycodone 5 oxycodone 5 No oxycodone Jennifer mg tablet mg tablet 5 mg Ortho pe Take 1 Take 1 tablet dic tablet(s) tablet(s) Take 1 Spo rts EVERY 6-8 EVERY 6-8 tablet(s) Medicin HOURS as HOURS as EVERY 6-8 e needed for needed for HOURS as severe pain severe pain needed for by oral by oral severe route route pain by oral route pantoprazol pantoprazol No pantoprazo Jennifer e 40 mg e 40 mg le 40 mg Ortho pe tablet,radha tablet,radha tablet,del dic yed release yed release ayed S ports TAKE 1 TAKE 1 release Medicin TABLET BY TABLET BY TAKE 1 e MOUTH MOUTH TABLET BY BEFORE BEFORE MOUTH BREAKFAST BREAKFAST BEFORE BREAKFAST Paxlovid Paxlovid No Paxlovid Aza nikko 300 mg (150 300 mg (150 300 mg [facility] mg x 2)-100 mg x 2)-100 (150 mg x dic mg tablets mg tablets 2)-100 mg Sports in a dose in a dose tablets in Medicin pack (EUA) pack (EUA) a dose e TK 2 TK 2 pack (EUA) NIRMATRELVI NIRMATRELVI TK 2 R TS AND 1 R TS AND 1 NIRMATRELV RITONAVIR T RITONAVIR T IR TS AND TOGETHER PO TOGETHER PO 1 BID FOR 5 BID FOR 5 RITONAVIR DAYS BID DAYS BID T TOGETHER FOR 5 DAYS FOR 5 DAYS PO BID FOR 5 DAYS BID FOR 5 DAYS pregabalin pregabalin No pregabalin Jennifer 75 mg 75 mg 75 mg [facility] capsule capsule capsule dic TAKE 1 TAKE 1 TAKE 1 Sports CAPSULE BY CAPSULE BY CAPSULE BY Medicin MOUTH TWICE MOUTH TWICE MOUTH e DAILY DAILY TWICE DAILY tramadol 50 tramadol 50 No tramadol Jennifer mg tablet mg tablet 50 mg Orth ope Take 1 Take 1 tablet dic tablet tablet Take 1 Sports every 6 every 6 tablet Medicin hours by hours by every 6 e oral route oral route hours by as needed as needed oral route for 7 days. for 7 days. as needed for 7 days. Amlodipine Amlodipine No Amlodipine & Diet & Diet & Diet Manage Prod Manage Prod Manage Prod triamcinolo triamcinolo No triamcinol Jennifer ne ne one [facility] acetonide acetonide acetonide dic 0.1 % 0.1 % 0.1 % Sports topical topical topical Medici n cream APPLY cream APPLY cream e TOPICALLY TOPICALLY APPLY TO THE TO THE TOPICALLY AFFECTED AFFECTED TO THE AREA TWICE AREA TWICE AFFECTED DAILY FOR DAILY FOR AREA TWICE 21 DAYS. DO 21 DAYS. DO DAILY FOR NOT APPLY NOT APPLY 21 DAYS. FOR LONGER FOR LONGER DO NOT THAN 14 THAN 14 APPLY FOR DAYS DAYS LONGER CONTINUOUSL CONTINUOUSL THAN 14 Y Y DAYS CONTINUOUS LY acetaminoph acetaminoph No acetaminop Jennifer en 500 mg en 500 mg hen 500 mg [facility] tablet Take tablet Take tablet dic 2 tablet(s) 2 tablet(s) Take 2 Sports EVERY 8 EVERY 8 tablet(s) Medi beena HOURS by HOURS by EVERY 8 e oral route. oral route. HOURS by oral route. amlodipine amlodipine No amlodipine Jennifer 10 mg 10 mg 10 mg [facility] tablet tablet tablet dic Sports Medicin e [place] 750 [place] 750 No [place] Jennifer mcg buccal mcg buccal 750 mcg [facility] film USE 1 film USE 1 buccal d ic FILM EVERY FILM EVERY film USE 1 Sports 12 HOURS 12 HOURS FILM EVERY M edicin 12 HOURS e clindamycin clindamycin No clindamyci Jennifer HCl 300 mg HCl 300 mg n HCl 300 [facility] capsule capsule mg capsule dic TAKE 1 TAKE 1 TAKE 1 Sports CAPSULE BY CAPSULE BY CAPSULE BY Medicin MOUTH EVERY MOUTH EVERY MOUTH e 8 HOURS 8 HOURS EVERY 8 HOURS colchicine colchicine No colchicine Jennifer 0.6 mg 0.6 mg 0.6 mg [facility] tablet TAKE tablet TAKE tablet dic 1 TABLET BY 1 TABLET BY TAKE 1 Sports MOUTH TWICE MOUTH TWICE TABLET BY Medicin DAILY DAILY MOUTH e TWICE DAILY daptomycin daptomycin No daptomycin Jennifer 500 mg 500 mg 500 mg [facility] intravenous intravenous intravenou dic solution solution s solution S ports Medicin e diclofenac diclofenac No diclofenac Jennifer 1 % topical 1 % topical 1 % O [facility]ope gel APPLY gel APPLY topical di c TOPICALLY TOPICALLY gel APPLY Sports TO THE TO THE TOPICALLY Medici n AFFECTED AFFECTED TO THE e AREA FOUR AREA FOUR AFFECTED TIMES DAILY TIMES DAILY AREA FOUR TIMES DAILY diclofenac diclofenac No diclofenac Jennifer epolamine epolamine epolamine [facility] 1.3 % 1.3 % 1.3 % dic transdermal transdermal transderma Sports 12 hour 12 hour l 12 hour Medi beena patch APPLY patch APPLY patch e 1 PATCH 1 PATCH APPLY 1 TOPICALLY TOPICALLY PATCH TO THE SKIN TO THE SKIN TOPICALLY TWICE DAILY TWICE DAILY TO THE SKIN TWICE DAILY doxycycline doxycycline No doxycyclin Jennifer hyclate 100 hyclate 100 e hyclate [facility] mg capsule mg capsule 100 mg d ic Take 1 Take 1 capsule Sports capsule capsule Take 1 Medicin twice a day twice a day capsule e by oral by oral twice a route for 7 route for 7 day by days. days. oral route for 7 days. duloxetine duloxetine No duloxetine Jennifer 20 mg 20 mg 20 mg [facility] capsule,del capsule,del capsule,de dic ayed ayed layed Sports release release release Medici n TAKE 1 TAKE 1 TAKE 1 e CAPSULE BY CAPSULE BY CAPSULE BY MOUTH DAILY MOUTH DAILY MOUTH DAILY Eliquis 5 Eliquis 5 No Eliquis 5 Jennifer mg tablet mg tablet mg tablet [facility] TAKE 1 TAKE 1 TAKE 1 dic TABLET BY TABLET BY TABLET BY Sports MOUTH TWICE MOUTH TWICE MOUTH Medicin DAILY DAILY TWICE e DAILY fluticasone fluticasone No fluticason Jennifer propionate propionate e Ort hope 50 50 propionate dic mcg/actuati mcg/actuati 50 S ports on nasal on nasal mcg/actuat M edicin spray,suspe spray,suspe ion nasal e nsion USE 2 nsion USE 2 spray,susp SPRAYS IN SPRAYS IN ension USE EACH EACH 2 SPRAYS NOSTRIL NOSTRIL IN EACH TWICE DAILY TWICE DAILY NOSTRIL TWICE DAILY glimepiride glimepiride No glimepirid Jennifer 1 mg tablet 1 mg tablet e 1 mg [facility] tablet dic Sports Medicin e hydrocodone hydrocodone No hydrocodon Jennifer 10 10 e 10 [facility] mg-acetamin mg-acetamin mg-acetami dic ophen 325 ophen 325 nophen 325 Sports mg tablet mg tablet mg tablet Medicin TAKE 1 TAKE 1 TAKE 1 e TABLET BY TABLET BY TABLET BY MOUTH FOUR MOUTH FOUR MOUTH FOUR TIMES DAILY TIMES DAILY TIMES DAILY ibuprofen ibuprofen No ibuprofen Jennifer 600 mg 600 mg 600 mg [facility] tablet tablet tablet dic Sports Medicin e Diclofenac Diclofenac No Diclofenac methocarbam methocarbam No methocarba Jennifer ol 500 mg ol 500 mg mol 500 mg [facility] tablet Take tablet Take tablet dic 1 tablet 4 1 tablet 4 Take 1 S ports times a day times a day tablet 4 Medicin by oral by oral times a e route as route as day by needed for needed for oral route 30 days. 30 days. as needed for 30 days. oxycodone 5 oxycodone 5 No oxycodone Jennfier mg tablet mg tablet 5 mg Ortho pe Take 1 Take 1 tablet dic tablet(s) tablet(s) Take 1 Spo rts EVERY 6-8 EVERY 6-8 tablet(s) Medicin HOURS as HOURS as EVERY 6-8 e needed for needed for HOURS as severe pain severe pain needed for by oral by oral severe route route pain by oral route pantoprazol pantoprazol No pantoprazo Jennifer e 40 mg e 40 mg le 40 mg Ortho pe tablet,radha tablet,radha tablet,del dic yed release yed release ayed S ports TAKE 1 TAKE 1 release Medicin TABLET BY TABLET BY TAKE 1 e MOUTH MOUTH TABLET BY BEFORE BEFORE MOUTH BREAKFAST BREAKFAST BEFORE BREAKFAST Paxlovid Paxlovid No Paxlovid Aza nikko 300 mg (150 300 mg (150 300 mg [facility] mg x 2)-100 mg x 2)-100 (150 mg x dic mg tablets mg tablets 2)-100 mg Sports in a dose in a dose tablets in Medicin pack (EUA) pack (EUA) a dose e TK 2 TK 2 pack (EUA) NIRMATRELVI NIRMATRELVI TK 2 R TS AND 1 R TS AND 1 NIRMATRELV RITONAVIR T RITONAVIR T IR TS AND TOGETHER PO TOGETHER PO 1 BID FOR 5 BID FOR 5 RITONAVIR DAYS BID DAYS BID T TOGETHER FOR 5 DAYS FOR 5 DAYS PO BID FOR 5 DAYS BID FOR 5 DAYS [place] No [place] pregabalin pregabalin No pregabalin Jennifer 75 mg 75 mg 75 mg [facility] capsule capsule capsule dic TAKE 1 TAKE 1 TAKE 1 Sports CAPSULE BY CAPSULE BY CAPSULE BY Medicin MOUTH TWICE MOUTH TWICE MOUTH e DAILY DAILY TWICE DAILY tramadol 50 tramadol 50 No tramadol Jennifer mg tablet mg tablet 50 mg Orth ope Take 1 Take 1 tablet dic tablet tablet Take 1 Sports every 6 every 6 tablet Medicin hours by hours by every 6 e oral route oral route hours by as needed as needed oral route for 7 days. for 7 days. as needed for 7 days. triamcinolo triamcinolo No triamcinol Jennifer ne ne one [facility] acetonide acetonide acetonide dic 0.1 % 0.1 % 0.1 % Sports topical topical topical Medici n cream APPLY cream APPLY cream e TOPICALLY TOPICALLY APPLY TO THE TO THE TOPICALLY AFFECTED AFFECTED TO THE AREA TWICE AREA TWICE AFFECTED DAILY FOR DAILY FOR AREA TWICE 21 DAYS. DO 21 DAYS. DO DAILY FOR NOT APPLY NOT APPLY 21 DAYS. FOR LONGER FOR LONGER DO NOT THAN 14 THAN 14 APPLY FOR DAYS DAYS LONGER CONTINUOUSL CONTINUOUSL THAN 14 Y Y DAYS CONTINUOUS LY amlodipine amlodipine No amlodipine Jennifer 10 mg 10 mg 10 mg [facility] tablet tablet tablet dic Sports Medicin e [place] 750 [place] 750 No [place] Jennifer mcg buccal mcg buccal 750 mcg [facility] film film buccal dic DISSOLVE 1 DISSOLVE 1 film Spo rts FILM BY FILM BY DISSOLVE 1 Med icin MOUTH EVERY MOUTH EVERY FILM BY e 12 HOURS 12 HOURS MOUTH EVERY 12 HOURS clindamycin clindamycin No clindamyci Jennifer HCl 300 mg HCl 300 mg n HCl 300 [facility] capsule capsule mg capsule dic TAKE 1 TAKE 1 TAKE 1 Sports CAPSULE BY CAPSULE BY CAPSULE BY Medicin MOUTH EVERY MOUTH EVERY MOUTH e 8 HOURS 8 HOURS EVERY 8 HOURS colchicine colchicine No colchicine Jennifer 0.6 mg 0.6 mg 0.6 mg [facility] tablet TAKE tablet TAKE tablet dic 1 TABLET BY 1 TABLET BY TAKE 1 Sports MOUTH TWICE MOUTH TWICE TABLET BY Medicin DAILY DAILY MOUTH e TWICE DAILY daptomycin daptomycin No daptomycin Jennifer 500 mg 500 mg 500 mg [facility] intravenous intravenous intravenou dic solution solution s solution S ports Medicin e diclofenac diclofenac No diclofenac Jennifer 1 % topical 1 % topical 1 % O [facility]ope gel APPLY gel APPLY topical di c TOPICALLY TOPICALLY gel APPLY Sports TO THE TO THE TOPICALLY Medici n AFFECTED AFFECTED TO THE e AREA FOUR AREA FOUR AFFECTED TIMES DAILY TIMES DAILY AREA FOUR TIMES DAILY Losartan Losartan No Losartan Potassium-H Potassium-H Potassium- CTZ CTZ HCTZ amLODIPine amLODIPine No amLODIPine Benzoate Benzoate Benzoate diclofenac diclofenac No diclofenac Jennifer epolamine epolamine epolamine [facility] 1.3 % 1.3 % 1.3 % dic transdermal transdermal transderma Sports 12 hour 12 hour l 12 hour Medi beena patch APPLY patch APPLY patch e 1 PATCH 1 PATCH APPLY 1 TOPICALLY TOPICALLY PATCH TO THE SKIN TO THE SKIN TOPICALLY TWICE DAILY TWICE DAILY TO THE SKIN TWICE DAILY duloxetine duloxetine No duloxetine Jennifer 20 mg 20 mg 20 mg [facility] capsule,del capsule,del capsule,de dic ayed ayed layed Sports release release release Medici n TAKE 1 TAKE 1 TAKE 1 e CAPSULE BY CAPSULE BY CAPSULE BY MOUTH DAILY MOUTH DAILY MOUTH DAILY glimepiride glimepiride No glimepirid Jennifer 1 mg tablet 1 mg tablet e 1 mg [facility] tablet dic Sports Medicin e hydrocodone hydrocodone No hydrocodon Jennifer 10 10 e 10 [facility] mg-acetamin mg-acetamin mg-acetami dic ophen 325 ophen 325 nophen 325 Sports mg tablet mg tablet mg tablet Medicin TAKE 1 TAKE 1 TAKE 1 e TABLET BY TABLET BY TABLET BY MOUTH FOUR MOUTH FOUR MOUTH FOUR TIMES DAILY TIMES DAILY TIMES DAILY ibuprofen ibuprofen No ibuprofen Jennifer 600 mg 600 mg 600 mg [facility] tablet tablet tablet dic Sports Medicin e methocarbam methocarbam No methocarba Jennifer ol 500 mg ol 500 mg mol 500 mg [facility] tablet TAKE tablet TAKE tablet dic 1 TABLET BY 1 TABLET BY TAKE 1 Sports MOUTH EVERY MOUTH EVERY TABLET BY Medicin 6 HOURS FOR 6 HOURS FOR MOUTH e 5 DAYS 5 DAYS EVERY 6 NEEDED FOR NEEDED FOR HOURS FOR MUSCLE MUSCLE 5 DAYS SPASMS SPASMS NEEDED FOR MUSCLE SPASMS pantoprazol pantoprazol No pantoprazo Jennifer e 40 mg e 40 mg le 40 mg Ortho pe tablet,radha tablet,radha tablet,del dic yed release yed release ayed S ports TAKE 1 TAKE 1 release Medicin TABLET BY TABLET BY TAKE 1 e MOUTH MOUTH TABLET BY BEFORE BEFORE MOUTH BREAKFAST BREAKFAST BEFORE BREAKFAST pregabalin pregabalin No pregabalin Jennifer 75 mg 75 mg 75 mg [facility] capsule capsule capsule dic TAKE 1 TAKE 1 TAKE 1 Sports CAPSULE BY CAPSULE BY CAPSULE BY Medicin MOUTH TWICE MOUTH TWICE MOUTH e DAILY DAILY TWICE DAILY triamcinolo triamcinolo No triamcinol Jennifer ne ne one [facility] acetonide acetonide acetonide dic 0.1 % 0.1 % 0.1 % Sports topical topical topical Medici n cream APPLY cream APPLY cream e TOPICALLY TOPICALLY APPLY TO THE TO THE TOPICALLY AFFECTED AFFECTED TO THE AREA TWICE AREA TWICE AFFECTED DAILY FOR DAILY FOR AREA TWICE 21 DAYS. DO 21 DAYS. DO DAILY FOR NOT APPLY NOT APPLY 21 DAYS. FOR LONGER FOR LONGER DO NOT THAN 14 THAN 14 APPLY FOR DAYS DAYS LONGER CONTINUOUSL CONTINUOUSL THAN 14 Y Y DAYS CONTINUOUS LY HYDROcodone HYDROcodone No HYDROcodon -Acetaminop -Acetaminop e-Acetamin hen hen ophen Alcohol Alcohol No Alcohol Vill[facility] e Prep Pads Prep Pads Prep Pads Family Practic e amlodipine amlodipine No amlodipine [place] 10 mg 10 mg 10 mg Family tablet Take tablet Take tablet Practic one(1) one(1) Take e Tablet by Tablet by one(1) mouth EVERY mouth EVERY Tablet by DAY DAY mouth EVERY DAY Methocarbam Methocarbam No Methocarba ol ol mol ciprofloxac ciprofloxac No ciprofloxa [facility] in 500 mg in 500 mg beena 500 mg Family tablet tablet tablet Practic e FreeStyle FreeStyle No FreeStyle [facility] L[facility] Meter Lite Meter Family kit kit kit Practic e gabapentin gabapentin No gabapentin [facility] 600 mg 600 mg 600 mg Family tablet TAKE tablet TAKE tablet Practic ONE-HALF ONE-HALF TAKE e TABLET TO TABLET TO ONE-HALF ONE TABLET ONE TABLET TABLET TO BY MOUTH BY MOUTH ONE TABLET THREE TIMES THREE TIMES BY MOUTH DAILY DAILY THREE TIMES DAILY gentamicin gentamicin No gentamicin [facility] 40 mg/mL 40 mg/mL 40 mg/mL Fam maria esther injection injection injection Practic solution solution solution e glimepiride glimepiride No glimepirid [facility] 2 mg tablet 2 mg tablet e 2 mg Family Take one(1) Take one(1) tablet Practic Tablet by Tablet by Take e mouth EVERY mouth EVERY one(1) DAY DAY Tablet by mouth EVERY DAY hydrocodone hydrocodone No 1 BID hydrocodon [facility] 10 10 e 10 Family mg-acetamin mg-acetamin mg-acetami Practic ophen 325 ophen 325 nophen 325 e mg tablet mg tablet mg tablet Take 1 Take 1 Take 1 tablet tablet tablet twice a day twice a day twice a by oral by oral day by route as route as oral route needed. needed. as needed. lancing lancing No lancing [facility] device device device Family Practic e losartan 50 losartan 50 No losartan [facility] mg-hydrochl mg-hydrochl 50 F amily orothiazide orothiazide mg-hydroch Practic 12.5 mg 12.5 mg lorothiazi e tablet Take tablet Take de 12.5 mg one(1) one(1) tablet Tablet by Tablet by Take mouth EVERY mouth EVERY one(1) DAY DAY Tablet by mouth EVERY DAY meloxicam meloxicam No 1 Q1D meloxicam [facility] 15 mg 15 mg 15 mg Family tablet Take tablet Take tablet Practic 1 tablet 1 tablet Take 1 e every day every day tablet by oral by oral every day route. route. by oral route. sulfamethox sulfamethox No sulfametho [facility] azole 800 azole 800 xazole 800 Family mg-trimetho mg-trimetho mg-trimeth Practic prim 160 mg prim 160 mg oprim 160 e tablet tablet mg tablet TRUEplus TRUEplus No TRUEplus Elli anabela Lancets 30 Lancets 30 Lancets 30 Family gauge gauge gauge Practic e Truetest Truetest No Truetest Elli anabela Test Strips Test Strips Test F amily Strips Practic e DULoxetine DULoxetine No DULoxetine HCl HCl HCl Ibuprofen Ibuprofen No Ibuprofen Glimepiride Glimepiride No Glimepirid e Amlodipine Amlodipine No Amlodipine & Diet & Diet & Diet Manage Prod Manage Prod Manage Prod Diclofenac Diclofenac No Diclofenac Belbuca Belbuca No Belbuca Losartan Losartan No Losartan Potassium-H Potassium-H Potassium- CTZ CTZ HCTZ amLODIPine amLODIPine No amLODIPine Benzoate Benzoate Benzoate HYDROcodone HYDROcodone No HYDROcodon -Acetaminop -Acetaminop e-Acetamin hen hen ophen Methocarbam Methocarbam No Methocarba ol ol mol DULoxetine DULoxetine No DULoxetine HCl HCl HCl Ibuprofen Ibuprofen No Ibuprofen Glimepiride Glimepiride No Glimepirid e Amlodipine Amlodipine No Amlodipine & Diet & Diet & Diet Manage Prod Manage Prod Manage Prod Diclofenac Diclofenac No Diclofenac FreeStyle FreeStyle 2016- No FreeStyle [facility] Control Control 11-23 Control Famil y solution solution 00:00 solution Pr actic :00 e Zithromax Zithromax 2016- No Zithromax [facility] Z-Byron 250 Z-Byron 250 11-23 Z-Byron 250 Family mg tablet mg tablet 00:00 mg tablet Practic as directed as directed :00 as e with food with food directed with food cefuroxime cefuroxime cefuroxime [facility] axetil 250 axetil 250 07-26 axetil 250 Family mg tablet mg tablet 00:00 mg tablet Practic :00 e SSD 1 % SSD 1 % SSD 1 % Mckee ge topical topical 07-26 topical Famil y cream cream 00:00 cream Practic :00 e sucralfate sucralfate sucralfate [facility] 1 gram 1 gram 07-26 1 gram Family tablet tablet 00:00 tablet Practic :00 e benzonatate benzonatate 1capsul TID benzonatat [facility] 200 mg 200 mg 04-24 e(s) e 200 mg Family capsule capsule 00:00 capsule Pract ic Take 1 Take 1 :00 Take 1 e capsule 3 capsule 3 capsule 3 times a day times a day times a by oral by oral day by route as route as oral route needed. needed. as needed. fluticasone fluticasone fluticason [facility] 50 50 04-24 e 50 Family mcg/actuati mcg/actuati 00:00 mcg/actuat Practic on nasal on nasal :00 ion nasal e spray,suspe spray,suspe spray,susp nsion nsion ension pantoprazol pantoprazol pantoprazo [facility] e 40 mg e 40 mg 04-24 le 40 mg Fami ly tablet,radha tablet,radha 00:00 tablet,del Practic yed release yed release :00 ayed e release vancomycin vancomycin vancomycin [facility] 1,000 mg 1,000 mg 04-24 1,000 mg [facility] intravenous intravenous 00:00 intravenou Practic injection injection :00 s e injection amoxicillin amoxicillin amoxicilli [facility] [id number] 10-19 n 875 Family mg-potassiu mg-potassiu 00:00 mg-potassi Practic m m :00 um e clavulanate clavulanate clavulanat 125 mg 125 mg e 125 mg tablet tablet tablet cephalexin cephalexin cephalexin [facility] 500 mg 500 mg 10-19 500 mg Family capsule capsule 00:00 capsule Pract ic :00 e clindamycin clindamycin clindamyci [facility] HCl 300 mg HCl 300 mg 10-19 n HCl 300 Family capsule capsule 00:00 mg capsule Pr actic :00 e diphenhydra diphenhydra 2016- No diphenhydr [facility] 50 mine 50 08-18 amine 50 Fami ly mg/mL mg/mL 00:00 mg/mL Practic injection injection :00 injection e solution solution solution Immunizations Ordered Immunization Filled Immunization Date Status Commen ts Source Name Name Influenza Virus 2021-03-29 Completed [facility] Vaccine 00:00[facility]00 [facility] SARS-COV-2 COVID-19 2021-03-29 Completed Unive rsity of MODERNA VACCINE 00:00:00 [facility] Influenza Virus 2021-03-29 Completed Universit [facility] of Vaccine 00:00:00 [facility] SARS-COV-2 COVID-19 2021-03-29 Completed Unive rsity of MODERNA VACCINE 00:00:00 [facility] Influenza Virus 2021-03-29 Completed Universit [facility] of Vaccine 00:00:00 [facility] SARS-COV-2 COVID-19 2021-03-29 Completed Unive rsity of MODERNA VACCINE 00:00:00 [facility] Influenza Virus 2021-03-29 Completed Universit [facility] of Vaccine 00:00:00 [facility] SARS-COV-2 COVID-19 2021-03-29 Completed Unive rsity of MODERNA VACCINE 00:00:00 [facility] Influenza Virus 2021-03-29 Completed Universit y of Vaccine 00:00:00 [facility] SARS-COV-2 COVID-19 2021-03-29 Completed Unive rsity of MODERNA VACCINE 00:00:00 [facility] Influenza Virus 2021-03-29 Completed Universit y of Vaccine 00:00:00 [facility] SARS-COV-2 COVID-19 2021-03-29 Completed Unive rsity of MODERNA VACCINE 00:00:00 [facility] MODERNA COVID-19 2021-03-29 Completed [facility] t MRNA VACCINATION 00:00:00 [facility] FLUZONE HIGH-DOSE PF 2021-01-31 Completed Meth odist 00:00:00 [facility] MODERNA COVID-19 2021-01-31 Completed [facility] MRNA VACCINATION 00:00:00 [facility] SARS-COV-2 COVID-19 2020-06-26 Completed Unive rsity of MODERNA VACCINE 00:00:00 [facility] SARS-COV-2 COVID-19 2020-06-26 Completed Unive rsity of MODERNA VACCINE 00:00:00 [facility] SARS-COV-2 COVID-19 2020-06-26 Completed Unive rsity of MODERNA VACCINE 00:00:00 [facility] SARS-COV-2 COVID-19 2020-06-26 Completed Unive rsity of MODERNA VACCINE 00:00:00 [facility] SARS-COV-2 COVID-19 2020-06-26 Completed Unive rsity of MODERNA VACCINE 00:00:00 [facility] SARS-COV-2 COVID-19 2020-06-26 Completed Unive rsity of MODERNA VACCINE 00:00:00 [facility] MODERNA COVID-19 2020-06-26 Completed [facility] MRNA VACCINATION 00:00:00 [facility] SARS-COV-2 COVID-19 2020-05-24 Completed Unive rsity of MODERNA VACCINE 00:00:00 [facility] SARS-COV-2 COVID-19 2020-05-24 Completed Unive rsity of MODERNA VACCINE 00:00:00 [facility] SARS-COV-2 COVID-19 2020-05-24 Completed Unive rsity of MODERNA VACCINE 00:00:00 [facility] SARS-COV-2 COVID-19 2020-05-24 Completed Unive rsity of MODERNA VACCINE 00:00:00 [facility] SARS-COV-2 COVID-19 2020-05-24 Completed Unive rsity of MODERNA VACCINE 00:00:00 [facility] SARS-COV-2 COVID-19 2020-05-24 Completed Unive rsity of MODERNA VACCINE 00:00:00 [facility] MODERNA COVID-19 2020-05-24 Completed [facility] MRNA VACCINATION 00:00:00 [facility] PFIZER COVID-19 MRNA 2020-05-16 Completed Meth odist VACCINATION 00:00:00 [facility] PFIZER COVID-19 MRNA 2020-04-23 Completed Meth odist VACCINATION 00:00:00 [facility] FLUZONE HIGH-DOSE PF 2019-11-18 Completed [facility] odist 00:00:00 Hospital Tdap Tdap 2016-11-23 Completed [facility] Family 12:20:00 Practice influenza, high dose influenza, high dose 2016-11-23 Completed [facility] Family seasonal seasonal 11:37:33 Practice FLUZONE HIGH-DOSE PF 2016-11-23 Completed [facility] 00:00:00 Hospital Tdap 2016-11-23 Completed [facility] 00:[facility] FLUZONE HIGH-DOSE PF 2015-02-02 Completed [facility] 00:00:00 Hospital Pneumococcal 2015-02-02 Completed [facility] Conjugate 13-Valent 00:00:00 Hospi ashley influenza, high dose influenza, high dose 2015-02-02 Completed [facility] Family seasonal seasonal 00:00:00 Practice pneumococcal pneumococcal 2015-02-02 Completed [facility] moraima conjugate PCV 13 conjugate PCV 13 00:00:00 Pr actice influenza virus 2015-01-21 Completed [facility] [place] vaccine, 23:09:00 inactivated<sup>1</s up> influenza virus 2015-01-21 Completed [facility] vaccine, 23:09:00 inactivated<sup>1</s up> Influenza, 2015-01-21 Completed [facility] Unspecified 00:00:00 Hospital Influenza 2014-09-30 Completed [facility] 00:[facility]:00 Influenza 2014-09-30 Completed [facility] 00:00:00 Influenza, 2013-11-16 Completed [facility] Unspecified 00:00:00 Hospital FLUCELVAX QUAD PF 2013-11-[address] 00:00[facility]00 Hospital Influenza, Influenza, 2013-11-[address] [facility] injectable, MDCK, injectable, MDCK, 00:00:00 Practice preservative free preservative free Pneumococcal 2013-04-15 Completed [facility] Polysaccharide 00:00:00 Hospital pneumococcal pneumococcal 2013-04-15 Completed [facility] moraima polysaccharide PPV23 polysaccharide PPV23 00:00:00 Practice pneumococcal 2013-02-16 Completed [facility] [place] 23-valent 23:08:00 vaccine<sup>2</sup> pneumococcal 2013-02-16 Completed [facility] [place] 23-valent 23:08:00 vaccine<sup>2</sup> Pneumococcal 2013-02-16 Completed [facility] Polysaccharide 00:00:00 Hospital Vital Signs Vital Name Observation Time Observation Value Comments Source respiratory rate 2022-01-17 11:30:00 18 /min [facility] blood pressure 2022-01-17 11:30:00 106 mm[Hg] [facility] blood pressure 2022-01-17 11:30:00 62 mm[Hg] [facility] diastolic [facility] height 2022-01-17 11:30:00 71 [in_i] [facility] weight 2022-01-17 11:30:00 230 [lb_av] [facility] temperature 2022-01-17 11:30:00 98.6 [degF] [facility] bmi 2022-01-17 11:30:00 32.07 kg/m2 [facility] oximetry 2022-01-17 11:30:00 96 % [facility] Height 2021 00:00:00 71 [in_i] [facility] BMI (Body Mass 2021 00:00:00 33.5 kg/m2 [facility] Body Weight 2021 00:00:00 240 [lb_av] [facility] Systolic blood 2021-10-13 01:01:00 119 mm[Hg] [facility] Diastolic blood 2021-10-13 01:01:00 76 mm[Hg] [facility] Heart rate 2021-10-13 01:01:00 92 /min [facility] Body temperature 2021-10-13 01:01:00 36.83 Romina Univ ersity [facility] Respiratory rate 2021-10-13 01:01:00 18 /min [facility] height 2021-10-13 01:01:00 180.3 cm [facility] Body weight 2021-10-13 01:01:00 106.595 kg [facility] BMI 2021-10-13 01:01:00 32.78 kg/m2 [facility] Oxygen saturation in 2021-10-13 01:01:00 96 /min [facility] Arterial blood by [place] [facility] Pulse oximetry Branch Height 2021-09-19 00:00:00 71 [in_i] [facility] BMI (Body Mass 2021-09-19 00:00:00 33.5 kg/m2 [facility] Body Weight 2021-09-19 00:00:00 240 [lb_av] [facility] height 2021-09-13 15:00:00 71 [in_i] [facility] weight 2021-09-13 15:00:00 235 [lb_av] [facility] temperature 2021-09-13 15:00:00 98.2 [degF] [facility] bmi 2021-09-13 15:00:00 32.77 kg/m2 [facility] blood pressure 2021-09-13 15:00:00 114 mm[Hg] [facility] blood pressure 2021-09-13 15:00:00 72 mm[Hg] [facility] Systolic blood 2021-06-21 21:06:00 128 mm[Hg] [facility] Diastolic blood 2021-06-21 21:06:00 76 mm[Hg] [facility] Heart rate 2021-06-21 21:06:00 104 /min [facility] Body temperature 2021-06-21 21:06:00 36.83 Romina Univ ersity [facility] Respiratory rate 2021-06-21 21:06:00 16 /min [facility] O[facility] saturation in 2021-06-21 21:06:00 96 /min [facility] Arterial blood by [facility] Pulse oximetry [facility] Body height 2021-06-18 07:08:00 180.3 cm Universi [facility] Body weight 2021-06-18 07:08:00 106.9 kg Universi [facility] BMI 2021-06-18 07:08:00 32.87 kg/m2 [facility] Systolic blood 2021-06-18 23:12:00 142 mm[Hg] Univer sity of pressure [facility] Diastolic blood 2021-06-18 23:12:00 78 mm[Hg] Unive rsity of pressure [facility] Heart rate 2021-06-18 23:12:00 79 /min [facility] Body temperature 2021-06-18 23:12:00 36.72 Romina Univ ersity [facility] Respiratory rate 2021-06-18 23:12:00 16 /min [facility] Oxygen saturation in 2021-06-18 23:12:00 96 /min University Arterial blood by [facility] Pulse oximetry [place] Body height 2021-06-18 07:08:00 180.3 cm [facility] Body weight 2021-06-18 07:08:00 106.9 kg [facility] BMI 2021-06-18 07:08:00 32.87 kg/m2 [facility] Systolic blood 2021-07-10 20:12:00 131 mm[Hg] [facility] pressure Diastolic blood 2021-07-10 20:12:00 71 mm[Hg] [facility] pressure Heart rate 2021-07-10 20:12:00 82 /min [facility] Body temperature 2021-07-10 20:12:00 36.83 Romina [facility] Body height 2021-07-10 20:12:00 180.3 cm [facility] Oxygen saturation in 2021-07-10 20:12:00 98 /min [facility] Arterial blood by Pulse oximetry Respiratory rate 2021-06-17 05:15:00 16 /min [facility] Body weight 2021-06-17 00:40:00 102.059 kg [facility] BMI 2021-06-17 00:40:00 31.38 kg/m2 [facility] BP Diastolic 2017-05-22 00:00:00 76 mm[Hg] [facility] Family Practice Height 2017-05-22 00:00:00 70 [in_i] [facility] Practice BMI (Body Mass 2017-05-22 00:00:00 37.3 kg/m2 [facility] Practice BP Systolic 2017-05-22 00:00:00 130 mm[Hg] [facility] Body Weight 2017-05-22 00:00:00 259.8 [lb_av] [facility] Systolic (mm Hg) 2017-05-04 00:30:00 [facility] [place] Diastolic (mm Hg) 2017-05-04 00:30:00 [facility] [place] Respitory Rate 2017-05-04 00:30:00 [facility] Systolic (mm Hg) 2017-05-04 00:15:00 [facility] [place] Diastolic (mm Hg) 2017-05-04 00:15:00 [facility] [place] Respitory Rate 2017-05-04 00:15:00 [facility] [place] Respitory Rate 2017-05-04 00:00:00 [facility] [place] Systolic (mm Hg) 2017-05-04 00:00:00 [facility] [place] Diastolic (mm Hg) 2017-05-04 00:00:00 [facility] Heart Rate 2017-05-03 18:35:00 [facility] [place] Heart Rate 2017-05-03 17:50:00 [facility] [place] BMI Calculated 2017-05-03 17:23:00 [facility] [place] Weight 2017-05-03 17:23:00 [facility] Height 2017-05-03 17:23:00 180.34 cm [facility] Weight 2017-04-25 15:05:00 [facility] [place] BMI Calculated 2017-04-25 15:05:00 [facility] Height 2017-04-25 15:05:00 187.96 cm [facility] BP Diastolic 2017-02-26 00:00:00 74 mm[Hg] [facility] Height 2017-02-26 00:00:00 70 [in_i] [facility] Family Practice BP Systolic 2017-02-26 00:00:00 122 mm[Hg] [facility] BP Diastolic 2016-11-23 00:00:00 74 mm[Hg] [facility] Height 2016-11-23 00:00:00 70 [in_i] [facility] Family Practice BMI (Body Mass 2016-11-23 00:00:00 36.6 kg/m2 [facility] Family Index) Practice BP Systolic 2016-11-23 00:00:00 118 mm[Hg] [facility] Body Weight 2016-11-23 00:00:00 255 [lb_av] [facility] BP Diastolic 2016-08-23 00:00:00 76 mm[Hg] [facility] Height 2016-08-23 00:00:00 70 [in_i] [facility] BMI (Body Mass 2016-08-23 00:00:00 37.7 kg/m2 [facility] BP Systolic 2016-08-23 00:00:00 126 mm[Hg] [facility] Body Weight 2016-08-23 00:00:00 263 [lb_av] [facility] BP Diastolic 2016-07-26 00:00:00 70 mm[Hg] [facility] Height 2016-07-26 00:00:00 70 [in_i] [facility] BMI (Body Mass 2016-07-26 00:00:00 37.5 kg/m2 [facility] BP Systolic 2016-07-26 00:00:00 102 mm[Hg] [facility] Body Weight 2016-07-26 00:00:00 261.4 [lb_av] [facility] BP Diastolic 2016-06-26 00:00:00 82 mm[Hg] [facility] Height 2016-06-26 00:00:00 70 [in_i] [facility] BP Systolic 2016-06-26 00:00:00 132 mm[Hg] [facility] BP Diastolic 2016-04-24 00:00:00 82 mm[Hg] [facility] Height 2016-04-24 00:00:00 70 [in_i] [facility] BMI (Body Mass 2016-04-24 00:00:00 38.1 kg/m2 [facility] BP Systolic 2016-04-24 00:00:00 134 mm[Hg] [facility] Body Weight 2016-04-24 00:00:00 265.4 [lb_av] [facility] BP Diastolic 2016-03-15 00:00:00 86 mm[Hg] [facility] Height 2016-03-15 00:00:00 70 [in_i] [facility] BMI (Body Mass 2016-03-15 00:00:00 38.3 kg/m2 [facility] BP Systolic 2016-03-15 00:00:00 134 mm[Hg] [facility] Body Weight 2016-03-15 00:00:00 267 [lb_av] [facility] BP Diastolic 2016-02-15 00:00:00 76 mm[Hg] [facility] Height 2016-02-15 00:00:00 70 [in_i] [facility] BMI (Body Mass 2016-02-15 00:00:00 37.2 kg/m2 [facility] BP Systolic 2016-02-15 00:00:00 120 mm[Hg] [facility] Body Weight 2016-02-15 00:00:00 259.6 [lb_av] [facility] BP Diastolic 2016-01-30 00:00:00 72 mm[Hg] [facility] Height 2016-01-30 00:00:00 70 [in_i] [facility] BMI (Body Mass 2016-01-30 00:00:00 37.7 kg/m2 [facility] BP Systolic 2016-01-30 00:00:00 110 mm[Hg] [facility] Body Weight 2016-01-30 00:00:00 263 [lb_av] [facility] BP Diastolic 2015-10-20 00:00:00 68 mm[Hg] [facility] Height 2015-10-20 00:00:00 70 [in_i] [facility] BMI (Body Mass 2015-10-20 00:00:00 37 kg/m2 [facility] BP Systolic 2015-10-20 00:00:00 106 mm[Hg] [facility] Body Weight 2015-10-20 00:00:00 258 [lb_av] [facility] BP Diastolic 2015-07-26 00:00:00 80 mm[Hg] [facility] BP Systolic 2015-07-26 00:00:00 110 mm[Hg] [facility] Body Weight 2015-07-26 00:00:00 255 [lb_av] [facility] Height 2015-07-26 00:00:00 70 [in_i] [facility] BMI (Body Mass 2015-07-26 00:00:00 36.59 kg/m2 [facility] BP Diastolic 2015-04-26 00:00:00 86 mm[Hg] [facility] Height 2015-04-26 00:00:00 70 [in_i] [facility] BMI (Body Mass 2015-04-26 00:00:00 37.59 kg/m2 [facility] BP Systolic 2015-04-26 00:00:00 118 mm[Hg] [facility] Body Weight 2015-04-26 00:00:00 262 [lb_av] [facility] Height 2015-02-24 00:00:00 70 [in_i] [facility] BMI (Body Mass 2015-02-24 00:00:00 39.17 kg/m2 [facility] BP Diastolic 2015-02-24 00:00:00 80 mm[Hg] [facility] Family Practice BP Systolic 2015-02-24 00:00:00 122 mm[Hg] [facility] Body Weight 2015-02-24 00:00:00 273 [lb_av] [facility] Practice Respitory Rate 2015-02-22 23:19:00 [facility] [place] Weight 2015-02-22 23:19:00 [facility] [place] Height 2015-02-22 23:19:00 182.88 cm [facility] Temperature Oral (F) 2015-02-22 23:19:00 98.7 F [facility] BMI Calculated 2015-02-22 23:19:00 [facility] [place] Systolic (mm Hg) 2015-02-22 23:19:00 [facility] Diastolic (mm Hg) 2015-02-22 23:19:00 [facility] Heart Rate 2015-02-22 23:19:00 [facility] Respitory Rate 2015-02-19 17:24:00 [facility] [place] Systolic (mm Hg) 2015-02-19 13:40:00 [facility] [place] Diastolic (mm Hg) 2015-02-19 13:40:00 [facility] [place] Respitory Rate 2015-02-19 13:40:00 [facility] [place] Heart Rate 2015-02-19 13:40:00 [facility] Temperature Oral (F) 2015-02-19 13:40:00 99.1 F [facility] Temperature Oral (F) 2015-02-19 11:22:00 98.3 F [facility] [place] Systolic (mm Hg) 2015-02-19 11:22:00 [facility] Diastolic (mm Hg) 2015-02-19 11:22:00 [facility] Heart Rate 2015-02-19 11:22:00 [facility] Respitory Rate 2015-02-19 11:22:00 [facility] Temperature Oral (F) 2015-02-19 06:36:00 98.3 F [facility] Heart Rate 2015-02-19 06:36:00 [facility] [place] Systolic (mm Hg) 2015-02-19 06:36:00 Keegan [facility] Diastolic (mm Hg) 2015-02-19 06:36:00 [facility] Height 2015-02-16 19:24:00 182.88 cm [facility] BMI Calculated 2015-02-16 19:24:00 [facility] [place] Weight 2015-02-16 19:24:00 [facility] [place] BP Diastolic 2015-02-02 00:00:00 80 mm[Hg] [facility] Height 2015-02-02 00:00:00 70 [in_i] [facility] BMI (Body Mass 2015-02-02 00:00:00 38.74 kg/m2 [facility] BP Systolic 2015-02-02 00:00:00 116 mm[Hg] [facility] Body Weight 2015-02-02 00:00:00 270 [lb_av] [facility] BP Diastolic 2014-12-14 00:00:00 70 mm[Hg] [facility] Height 2014-12-14 00:00:00 70 [in_i] [facility] BMI (Body Mass 2014-12-14 00:00:00 38.88 kg/m2 [facility] BP Systolic 2014-12-14 00:00:00 98 mm[Hg] [facility] Body Weight 2014-12-14 00:00:00 271 [lb_av] [facility] BMI (Body Mass 2014-11-03 00:00:00 38.31 kg/m2 [facility] BP Diastolic 2014-11-03 00:00:00 85 mm[Hg] [facility] Height 2014-11-03 00:00:00 70 [in_i] [facility] BP Systolic 2014-11-03 00:00:00 135 mm[Hg] [facility] Body Weight 2014-11-03 00:00:00 267 [lb_av] [facility] Weight 2014-09-30 14:45:00 [facility] Height 2014-09-30 14:45:00 [facility] Heart Rate 2014-09-30 14:45:00 [facility] Diastolic (mm Hg) 2014-09-30 14:45:00 Saman Rios Systolic (mm Hg) 2014-09-30 14:45:00 Keegan Parisann BP Diastolic 2014-09-13 00:00:00 72 mm[Hg] [facility] Height 2014-09-13 00:00:00 70 [in_i] [facility] BMI (Body Mass 2014-09-13 00:00:00 39.31 kg/m2 [facility] BP Systolic 2014-09-13 00:00:00 112 mm[Hg] [facility] Body Weight 2014-09-13 00:00:00 274 [lb_av] [facility] BP Diastolic 2014-08-23 00:00:00 82 mm[Hg] [facility] Height 2014-08-23 00:00:00 70 [in_i] [facility] BMI (Body Mass 2014-08-23 00:00:00 38.83 kg/m2 [facility] BP Systolic 2014-08-23 00:00:00 123 mm[Hg] [facility] Body Weight 2014-08-23 00:00:00 270.6 [lb_av] [facility] BP Diastolic 2014-02-02 00:00:00 84 mm[Hg] [facility] Height 2014-02-02 00:00:00 70 [in_i] [facility] BMI (Body Mass 2014-02-02 00:00:00 39.00 kg/m2 [facility] BP Systolic 2014-02-02 00:00:00 128 mm[Hg] [facility] Body Weight 2014-02-02 00:00:00 271.8 [lb_av] [facility] BP Diastolic 2013-11-16 00:00:00 64 mm[Hg] [facility] Height 2013-11-16 00:00:00 70 [in_i] [facility] BMI (Body Mass 2013-11-16 00:00:00 37.79 kg/m2 [facility] BP Systolic 2013-11-16 00:00:00 110 mm[Hg] [facility] Body Weight 2013-11-16 00:00:00 263.4 [lb_av] [facility] BP Diastolic 2013-08-05 00:00:00 82 mm[Hg] [facility] Height 2013-08-05 00:00:00 70 [in_i] [facility] BMI (Body Mass 2013-08-05 00:00:00 36.15 kg/m2 [facility] BP Systolic 2013-08-05 00:00:00 130 mm[Hg] [facility] Body Weight 2013-08-05 00:00:00 252 [lb_av] [facility] Weight 2013-06-08 14:45:00 [facility] Heart Rate 2013-06-08 14:45:00 [facility] Diastolic (mm Hg) 2013-06-08 14:45:00 Mem orial [facility] Systolic (mm Hg) 2013-06-08 14:45:00 Keegan rial [facility] BP Diastolic 2013-05-27 00:00:00 70 mm[Hg] [facility] Height 2013-05-27 00:00:00 70 [in_i] [facility] BMI (Body Mass 2013-05-27 00:00:00 34.89 kg/m2 [facility] BP Systolic 2013-05-27 00:00:00 126 mm[Hg] [facility] Body Weight 2013-05-27 00:00:00 243.2 [lb_av] [facility] Weight 2013-05-05 15:45:00 [facility] Heart Rate 2013-05-05 15:45:00 [facility] Diastolic (mm Hg) 2013-05-05 15:45:00 [facility] [place] Systolic (mm Hg) 2013-05-05 15:45:00 Keegan rial [facility] BP Diastolic 2013-04-29 00:00:00 90 mm[Hg] [facility] Height 2013-04-29 00:00:00 70 [in_i] [facility] BMI (Body Mass 2013-04-29 00:00:00 35.29 kg/m2 [facility] BP Systolic 2013-04-29 00:00:00 124 mm[Hg] [facility] Body Weight 2013-04-29 00:00:00 246 [lb_av] [facility] Diastolic (mm Hg) 2013-04-24 09:10:00 Mem orial [facility] Systolic (mm Hg) 2013-04-24 09:10:00 Keegan rial Gabriel Temperature Oral (F) 2013-04-24 09:10:00 97.1 F [facility] Heart Rate 2013-04-24 09:10:00 [facility] Respitory Rate 2013-04-24 09:10:00 Bulmaro Barroso BMI Calculated 2013-04-24 04:40:00 Bulmaro Barroso Weight 2013-04-24 04:40:00 [facility] Height 2013-04-24 04:40:00 182.88 cm [facility] Respitory Rate 2013-04-24 04:40:00 Bulmaro Barroso Temperature Oral (F) 2013-04-24 04:40:00 97.7 F [facility] Heart Rate 2013-04-24 04:40:00 [facility] Diastolic (mm Hg) 2013-04-24 04:40:00 Mem elpidio Parisann Systolic (mm Hg) 2013-04-24 04:40:00 Keeganmirian khan [facility] BP Diastolic 2013-04-15 00:00:00 80 mm[Hg] [facility] Height 2013-04-15 00:00:00 70 [in_i] [facility] BMI (Body Mass 2013-04-15 00:00:00 36.58 kg/m2 [facility]) Practice BP Systolic 2013-04-15 00:00:00 128 mm[Hg] [facility] Body Weight 2013-04-15 00:00:00 255 [lb_av] [facility] Procedures Procedure Date / Time Performing Clinician Source Performed XR, knee, 3 view 2021 00:00:00 Jennifer [facility] [id number] 2021-11-07 00:00:00 SANJAY [facility] Total Replacement of 2021-11-07 00:00:00 Jennifer Orthopedic Right Knee Joint Sports Medicine XR, knee, 4 or more view 2021-09-19 00:00:00 Kingsley el [facility] POCT GLUCOSE (AUTOMATED) 2021-06-21 21:08:00 [facility] 2021-06-21 18:06:00 [facility] (AUTOMATED) 2021-06-21 13:21:00 Mitch Sherman Uni [facility] POCT GLUCOSE (AUTOMATED) 2021-06-21 03:04:00 Maite Shermanarg Uni versity of [facility] XR CHEST 1 VW 2021-06-20 21:12:00 [facility] o f [facility] POCT GLUCOSE (AUTOMATED) 2021-06-20 20:52:00 Sherman, Mitch [facility] [place] [facility] POCT GLUCOSE (AUTOMATED) 2021-06-20 16:29:00 John Mitch [facility] [place] [facility] POCT GLUCOSE (AUTOMATED) 2021-06-20 13:26:00 John, Mitch Uni vers[facility] of [facility] BASIC METABOLIC PANEL 2021-06-20 09:37:00 [facility] ([facility], K, CL, CO2, GLUCOSE, Medica l Branch BUN, CREATININE, CA) CBC WITH DIFF 2021-06-20 09:37:00 [facility] POCT GLUCOSE (AUTOMATED) 2021-06-20 02:29:00 Maite Shermanarg Uni versity of [facility] POCT GLUCOSE (AUTOMATED) 2021-06-19 21:46:00 John Mitch Uni versity of [facility] POCT GLUCOSE (AUTOMATED) 2021-06-19 21:46:00 John Mitch Uni versity of [facility] VANCOMYCIN TROUGH 2021-06-19 19:20:00 Abu AtherSean lacey [facility] VANCOMYCIN TROUGH 2021-06-19 19:20:00 Abu Atherabhijit Emran [facility] POCT GLUCOSE (AUTOMATED) 2021-06-19 16:52:00 John Mitch [facility] [place] [facility] POCT GLUCOSE (AUTOMATED) 2021-06-19 16:52:00 John, Mitch [facility] [place] POCT GLUCOSE (AUTOMATED) 2021-06-19 13:08:00 John, Mitch Uni versity of [facility] POCT GLUCOSE (AUTOMATED) 2021-06-19 13:08:00 John, Mitch Uni vers[facility] of [facility] BASIC METABOLIC PANEL 2021-06-19 09:16:00 Abu Ather, Emran [facility] (NA, K, CL, CO2, GLUCOSE, Medica l Branch BUN, CREATININE, CA) CBC WITH DIFF 2021-06-19 09:16:00 Elvis [facility] BASIC METABOLIC PANEL 2021-06-19 09:16:00 Elvis RamosHasmukhoctavia [facility] (NA, K, CL, CO2, GLUCOSE, Medica l Branch BUN, CREATININE, CA) CBC WITH DIFF 2021-06-19 09:16:00 Abu Darlene [facility] POCT GLUCOSE (AUTOMATED) 2021-06-19 00:56:00 Maite Shermanarg [facility] POCT GLUCOSE (AUTOMATED) 2021-06-19 00:56:00 John Mitch Uni [facility] POCT GLUCOSE (AUTOMATED) 2021-06-18 22:26:00 John Mitch [facility] POCT GLUCOSE (AUTOMATED) 2021-06-18 22:26:00 Mitch Sherman [facility] BODY FLUID DIRECT COUNT 2021-06-18 22:19:00 Bong Morris [facility] CULTURE 2021-06-18 22:19:00 Bong Morris [facility] BODY FLUID 2021-06-18 22:19:00 Bong Morris [facility] CULTURE(AEROBIC/ANAEROBIC Medica l Branch ) BODY FLUID DIRECT COUNT 2021-06-18 22:19:00 Arturo [facility] CULTURE 2021-06-18 22:19:00 Bong Morris [facility] BODY FLUID 2021-06-18 22:19:00 Arturo [facility] CULTURE(AEROBIC/ANAEROBIC Medica l Branch ) ASPIRATION JOINT LOWER 2021-06-18 21:03:00 [facility] ASPIRATION JOINT LOWER 2021-06-18 21:03:00 Bong Morris [facility] POCT GLUCOSE (AUTOMATED) 2021-06-18 17:38:00 Elvis Colon [facility] POCT GLUCOSE (AUTOMATED) 2021-06-18 17:38:00 Abkingsley Ramos [facility] MR KNEE RIGHT W WO 2021-06-18 17:08:31 Mikhail Goodwin [facility] CONTRAST [facility] MR KNEE RIGHT W WO 2021-06-18 17:08:31 Mikhail Goodwin [facility] CONTRAST [facility] POCT GLUCOSE (AUTOMATED) 2021-06-18 12:58:00 Abu [facility] POCT GLUCOSE (AUTOMATED) 2021-06-18 12:58:00 Abu Ather, [facility] POCT GLUCOSE (AUTOMATED) 2021-06-18 06:44:00 Abu Ather, [facility] POCT GLUCOSE (AUTOMATED) 2021-06-18 06:44:00 Abu Darlene [facility] BLOOD CULTURE SCREEN 2021-06-18 06:20:00 Mikhail Goodwin [facility] BLOOD CULTURE SCREEN 2021-06-18 06:20:00 Mikhail Goodwin [facility] ND ARTHROCENTESIS 2021-06-18 06:02:02 Mikhail Goodwin [facility] ASPIR&/INJ MAJOR JT/BURSA Medica [facility] W/O US ND ARTHROCENTESIS 2021-06-18 06:02:02 Mikhail Goodwin [facility] ASPIR&/INJ MAJOR JT/BURSA Med[facility] W/O US URIC ACID 2021-06-18 03:51:00 Mikhail Goodwin [facility] C-REACTIVE PROTEIN 2021-06-18 03:51:00 Mikhail Goodwin [facility] BASIC METABOLIC PANEL 2021-06-18 03:51:00 Mikhail Goodwin [facility] (NA, K, CL, CO2, GLUCOSE, Medica l Branch BUN, CREATININE, CA) SEDIMENTATION RATE 2021-06-18 03:51:00 Mikhail Goodwin [facility] CBC WITH DIFF 2021-06-18 03:51:00 Mikhail Goodwin [facility] URIC ACID 2021-06-18 03:51:00 Mikhail Goodwin [facility] C-REACTIVE PROTEIN 2021-06-18 03:51:00 Mikhail Goodwin [facility] BASIC METABOLIC PANEL 2021-06-18 03:51:00 Mikhail Goodwin [facility] (NA, K, CL, CO2, GLUCOSE, Medica l Branch BUN, CREATININE, CA) SEDIMENTATION RATE 2021-06-18 03:51:00 Mikhail Goodwin [facility] CBC WITH DIFF 2021-06-18 03:51:00 Mikhail Goodwin [facility] XR KNEE <3 VW RIGHT 2021-06-18 03:35:00 Mikhail Goodwin [facility] XR KNEE <3 VW RIGHT 2021-06-18 03:35:00 Mikhail Goodwin [facility] CONSENT/REFUSAL FOR 2021-06-18 03:05:21 Doctor Unassharry, [facility] DIAGNOSIS AND TREATMENT [facility] CONSENT/REFUSAL FOR 2021-06-18 03:05:21 Doctor Unassigned, [facility] DIAGNOSIS AND TREAT[facility] 2021-06-17 05:01:00 Doctor Carlos Manuel, [facility] XR KNEE 4+ VW RIGHT 2021-06-17 03:24:13 [facility] COMPLETE BLD COUNT 2021-06-17 02:40:00 Israel esposito [facility] W/AUTO DIFF COMPREHENSIVE METABOLIC 2021-06-17 02:40:00 [facility] PANEL Go SEDIMENTATION RATE 2021-06-17 02:40:00 Bharat Chawla [facility] Aleksander ESTIMATED GFR 2021-06-17 02:40:00 [facility] Go C-REACTIVE PROTEIN 2021-06-17 02:40:00 [facility] HC COMPLETE BLD COUNT 2021-06-10 02:44:00 Graham Nina [facility] W/AUTO DIFF SEDIMENTATION RATE 2021-06-10 02:44:00 MaicoGraham trevino [facility] BASIC METABOLIC PANEL 2021-06-10 02:44:00 Graham Nina [facility] URIC ACID LEVEL 2021-06-10 02:44:00 Graham Nina ospital ESTIMATED GFR 2021-06-10 02:44:00 Graham Nina H ospital XR KNEE 4+ VW RIGHT 2021-06-10 01:48:29 Graham Nina [facility] C-REACTIVE PROTEIN 2021-06-09 20:54:00 Kymberly Hastings [facility] Emmanuel CELL COUNT AND 2021-05-26 17:00:00 Deuce Valentino Ho spital DIFFERENTIAL, BODY FLUID Hashim [place] ARTHROCENTESIS 2021-05-26 16:00:00 [facility] ASPIR&/INJ MAJOR JT/BURSA W/O US XR KNEE 4+ VW RIGHT 2021-05-26 15:43:26 [facility] CBC WITH PLATELET AND 2021-03-29 19:10:00 Deuce Valentino [facility] DIFFERENTIAL Hashim HEMOGLOBIN A1C 2021-03-29 19:10:00 Deuce Valentino Ho spital Hashim MICROALBUMIN / CREATININE 2021-03-29 19:10:00 Deuce Valentino [facility] URINE RATIO Hashim COMPREHENSIVE METABOLIC 2021-03-29 19:10:00 [facility] PANEL WITH ADJUSTED Hashim CALCIUM LIPID PANEL 2021-03-29 19:10:00 Deuce Valentino spital Hashim PSA, TOTAL WITH REFLEX TO 2021-03-29 19:10:00 [facility] FREE Hashim XR KNEE 1 OR 2 VW RIGHT 2021-03-29 18:39:24 [facility] Hashim COLOGUARD 2021-02-17 01:12:00 Deuce Valentino spital Hashim HEMOGLOBIN A1C 2021-01-31 18:09:00 Deuce Valentino spital Hashim MICROALBUMIN / CREATININE 2021-01-31 18:09:00 Deuce Valentino [facility] URINE RATIO Hashim COMPREHENSIVE METABOLIC 2021-01-31 18:09:00 [facility] PANEL WITH ADJUSTED Hashim CALCIUM photo, eye, retina 2016-04-24 00:00:00 [facility] X[facility] OF SHOULDER 2 VIEW 2016-01-30 00:00:00 [facility] MRI of foot<sup>1</sup> 2015-02-18 06:00:00 Keegan Rios Emergency department 2013-04-24 06:00:00 Ernesto Rios visit for the evaluation and management of a patient, which requires these 3 rodriguez components: A detailed history; A detailed examination; and Medical decision making of moderate complexity. Counseling and/or coordination of care with o [place] [facility] operation<sup>3</sup> Operative procedure on [facility] foot<sup>2</sup> Tonsillectomy [facility] Plan of Care Planned Activity Planned Date Details Comments Source Future Scheduled 2022-01-30 HEPATITIS B VACCINES [facility] 17:23:41 (1 of 3 - 3-dose Hospital series) [code = HEPATITIS B VACCINES (1 of 3 - 3-dose series)] Future Scheduled 2022-01-30 Hepatitis C screening [facility] Test 17:23:41 (procedure) [code = Hospital [id number]] Future Scheduled 2022-01-30 COLONOSCOPY SCREENING [facility] 17:23:41 [code = COLONOSCOPY Hospital SCREENING] Future Scheduled 2022-01-30 65+ PNEUMOCO[address] Methodi [facility] Test 17:23:41 VACCINE (3 - PPSV23 Hospital if available, else PCV20) [code = 65+ PNEUMOCOCCAL VACCINE (3 - PPSV23 if available, else PCV20)] Future Scheduled 2022-01-30 DIABETIC FOOT EXAM [facility] Test 17:23:41 [code = DIABETIC FOOT Hospit al EXAM] Future Scheduled 2022-01-30 INFLUENZA VACCINE Method ist Test 17:23:41 [code = INFLUENZA Hospital VACCINE] Future Scheduled 2022-01-30 DIABETES: RETINAL EYE [facility] Test 17:23:41 EXAM [code = Hospital DIABETES: RETINAL EYE EXAM] Future Scheduled 2022-01-30 SHINGLES VACCINES (1 Postponed from M ethodist Test 17:23:41 of 2) [code = 11/30/1999 [facility] SHINGREGORIO VACCINES (1 (Patient of 2)] Refused) Future Scheduled I discussed at this [facility] Test time the patient has Orthope dic not had good symptom Sports Medicine relief with conservative management including trials of PT, NSAIDs, and/or injections to the knee. Having failed conservative therapy I believe the patient is a candidate for a TKR. I discussed the risks and benefits of the procedure with the patient. With regard to risks I discussed that there is an 85% percent satisfaction rate with this procedure. I discussed that after the procedure she may have some continued anterior pain, feelings of instability, or occasional crepitus. We discussed that I use a PCL substituting device as I believe it leads to better range of motion and decreased risk of knee instability predatory animal exterminator. I discussed that risk factors for a less than optimal outcome include smoking, depression, obesity, and prior fracture to the knee. I also discussed that there were risks including infection (1-2%), bleeding issues (1%), and damage to major nerves or vessels (1%) that can lead to possible foot drop and need for a permanent AFO. I also discussed the risks of DVT and Pulmonary embolism in the postoperative setting (1-2%). Finally we discussed the longevity of these prostheses and a survivorship of approximately 92% at 10 years and 75-80% at 20 years. I discussed that this knee may not feel like a natural knee due to the sacrificing of ligaments and the mechanical design of the knee. I discussed the goals of the surgery were to achieve a knee with good and painless range of motion. I discussed that most nonimpact activities such as cycling, swimming, and doubles tennis may be possible after surgery if the patient was similarly active prior to surgery. I discussed the importance of weight loss and how it can positively affect a patient both prior to and after knee replacement surgery. I discussed that the surgery takes about 2 hours. The patient will then stay in the hospital for one to two nights and be discharged either to home or to an appropriate facility depending on their rehabilitation needs. I discussed pain management with the procedure and that the patient would be on anticoagulation medicine postoperatively. I discussed that generally patients do not begin to feel an improvement in the knee until 3 months postoperatively and that the main focus in the early postoperative period will be on pain relief and regaining range of motion with aggressive physical therapy. The patient understood this discussion and all questions were answered at time of clinical visit today. This was a shared decsion making process with the patient. [code = I discussed at this time the patient has not had good symptom relief with conservative management in] Instructions [facility] Instructions [facility] Encounters Start End Encounter Admission Attending Care Care Encounter Source Date/Time Date/Time Type Type Clinicians Facility Department ID 2022-01-17 Outpatient Guru[facility] [id number] Common 13:02:02 Jean-Pierre [facility] 2022-01-15 [facility] [id number] Common 11:50:02 [id number] [facility] 2021-11-13 Inpatient Valentina Vilchis HCAT[facility] SURG [id number] [facility] 12:11:00 [id number] [facility] 2021-09-30 Outpatient STLC STLC [id number] Common 09:19:01 [id number] [facility] 2021-09-14 [facility] [id number] Common 08:24:02 [id number] [facility] 2021-09-13 Out[facility] [id number] Common 14:49:03 [facility] 2021-03-30 Outpatient 3 JenaeELYSSAPL AML [id number] [facility] 12:34:20 Saul [facility] 2021-03-30 Outpatient 3 [id number] ENC[facility] AML [id number] [facility] 12:34:05 0723 [facility] [place] [facility] 2021-03-30 Outpatient 3 [id number] E[facility] REF [id number] [facility] 12:31:44 0717 [facility] [place] 2021-03-30 Outpatient 3 [id number] ENC[facility] REF [id number] [facility] 12:31:28 0716 [facility] [place] 2022-01-17 2022-01-17 OFF[facility] [id number] Co mmon 00:00:00 00:00:00 VISIT [facility] it PT LEVEL 4 [facility] 2022-01-04 2022-01-04 (TEL) STLMLC STLMLC [id number] Co mmon 00:00:00 00:00:00 [facility] 2022-01-02 2022-01-02 Refill Dadabhoy, 1.2.840.1 [id number] [id number] Methodi 00:00:00 00:00:[address] Hashim 3.430.2.7 Hospit a .3.647007 l .8 2021-12-21 2021-12-21 (TEL) STLMLC STLMLC [id number] Co mmon 00:00:00 00:00:00 [facility] 2021 2021 Outpatient FOG_Patel_A AOSM AOSM [id number] Jennifer 00:00:00 00:00:00 Ramiro [id number] [facility] 2021 2021 Christi Diamond AO [place] - Ortho [id number] Jennifer 00:00:00 00:00:00 Lindy ANIMAL CONTROL OFFICER: Bety Abarca - Orthope [address] FOG_Ofc dic [facility] Spor [facility], [place] [address] , Ph. [phone] 2021-11-24 2021-11-24 Outpatient FOG_Patel_A AOSM AOSM [id number] [id number] Jennifer 00:00:00 00:00:00 Ramiro [id number] Orthop e dic [facility] 2021-11-21 2021-11-21 Refill Dadabhoy, 1.2.840.1 [id number] Methodi 00:00:00 00:00:[address] Hashim 3.430.2.7 Hospit a .3.617066 l .8 2021-11-18 2021-11-18 Refill Dadabhoy, 1.2.840.1 [id number] [id number] Methodi 00:00:00 00:00:[address] Hashim 3.430.2.7 Hospit a .3.628461 l .8 2021-11-09 2021-11-09 Outpatient FOG_Patel_A AOSM AOSM [id number] Jennifer 00:00:00 00:00:00 Ramiro [id number] [facility] 2021-11-09 2021-11-09 Refill Betito, 1.2.840.1 [id number] [id number] Methodi 00:00:00 00:00:[address] Hashim 3.430.2.7 Hospit a .3.896302 l .8 2021-11-07 2021-11-08 Inpatient EL Valentina Sherman [facility]AT[facility] SURG [id number] [facility] 10:05:00 16:04:00 [facility] 2021-11-08 2021-11-08 Outpatient FOG_Patel_A AOSM AOSM [id number] Jennifer 00:00:00 00:00:00 Ramiro [id number] [facility] 2021-11-07 2021-11-07 Outpatient FOG_Patel_A AOSM AOSM [id number] Jennifer 00:00:00 00:00:00 Ramiro [id number] Orthop e [facility] 2021-11-07 2021-11-07 Outpatient Valentina Sherman AOSM AOSM [id number] 00:00:00 00:00:00 R [id number] 2021-11-07 2021-11-07 Valentina R AOSM [place] - Ortho [id number] Jennifer 00:00:00 00:00:00 MD John: Bety Abarca - Orthope [address] F[address]gery [address], [place] [address] , Ph. [phone] 2021-11-06 2021-11-06 Refill Betito, 1.2.840.1 [id number] 2100 [id number] Methodi 00:00:00 00:00:[address] Hashim 3.430.2.7 Hospit a .3.019719 l .8 2021-11-02 2021-11-02 Outpatient FOG_Patel_A AOSM AOSM [id number] Jennifer 00:00:00 00:00:00 Ramiro [id number] Orthop e dic [facility] 2021-10-30 2021-10-30 Outpatient FOG_Patel_A AOSM AOSM [id number] Jennifer 00:00:00 00:00:00 Ramiro [id number] Orthop e dic [facility] Medic[facility] 2021-10-20 2021-10-20 Refkaran Valentino, 1.2.840.1 [id number] 2100 [id number] Methodi 00:00:00 00:00:00 Irfan 75723.1.1 910 [facility] 3.430.2.7 Hospit a .3.754340 l .8 2021-10-19 2021-10-19 Outpatient FOG_Patel_A AOSM AOSM [id number] [id number] Jennifer 00:00:00 00:00:00 Ramiro [id number] Orthop e dic [facility] Medic[facility] 2021-10-19 2021-10-19 Outpatient FOG_Loftis_ AOSM AOSM [id number] Jennifer 00:00:00 00:00:00 Rupesh [id number] Ortho pe dic Sports Medicin e 2021-10-16 2021-10-16 Outpatient FOG_Patel_A AOSM AOSM [id number] Jennifer 00:00:00 00:00:00 Ramiro [id number] Orthop e dic [facility] Medic[facility] 2021-10-13 2021-10-13 RAYO Sena 1.2.712.636 [id number] Univers 00:00:00 00:00:00 (Out) Walter FORD 350.1.13.10 it y of HOSPITAL 4.2.7.2.686 Noe as [id number] [place] [address] [address] 2021-10-13 2021-10-13 Telephone Provider, [facility] 1.2.840.114 [id number] Univers 00:00:00 00:00:00 Ang [facility] access hospital 350.1.13.10 it y of Urgent [place] 4.2.7.2.686 [place] RASHI?BLEA [phone] Vt dical [address] MEDICAL OFFICE [facility] 2021-10-12 2021-10-12 Outpatient R MATEO [facility] [id number] Univers 19:40:00 20:20:30 POONAM ashton [facility] 2021-10-12 2021-10-12 [facility] 1.2.840.114 [id number] Univers 19:40:00 20:20:30 [facility] 350.1.13.10 it y [facility] 4.2.7.2.686 Noe as RASHI?BLEA [phone] Vt dical [address] MEDICAL OFFICE [facility] 2021-10-12 2021-10-12 Outpatient FOG_Patel_A AOSM AOSM 633 6722-20 Jennifer 00:00:00 00:00:00 Ramiro [id number] [facility] 2021-10-11 2021-10-11 Outpatient FOG_Patel_A AOSM AOSM 633 6722-20 Jennifer 00:00:00 00:00:00 Ramiro 091807 [facility] 2021-10-05 2021-10-05 Outpatient DANIELE Valentina Sherman HCATO 3DAY Y00 [id number] [facility] 08:00:00 23:00:00 74 [facility] [place] [facility] 2021-10-05 2021-10-05 Outpatient Valentina Sherman HCACL LABO G00 [id number] [facility] 15:57:00 15:57:00 02 [facility] 2021-10-02 2021-10-02 Outpatient FOG_Loftis_ AOSM AOSM 634 4081-20 Jennifer 00:00:00 00:00:00 Rupesh [id number] Ortho pe dic [facility] Medicin e 2021-09-27 2021-09-27 Telemedici Betito, 1.2.840.1 [id number] 2 [id number] Methodi 14:00:00 15:37:29 ne Irfan 23201.1.[address] Hash 3.430.2.7 Hospit a .3.577606 l .8 2021-09-27 2021-09-27 Outpatient DADABHOY, [facility] 61038 9[address]67 [place] 00:00:00 00:00:00 IRFAN [address] 2021-09-25 2021-09-25 Outpatient FOG_Patel_A AOSM AOSM 633 22 Jennifer 00:00:00 00:00:00 Ramiro 401237 [facility] 2021-09-22 2021-09-22 Outpatient FOG_Patel_A AOSM AOSM 633 22 Jennifer 12:59:00 12:59:00 Ramiro 412704 [facility] e 2021-09-21 2021-09-21 Outpatient FOG_Patel_A AOSM AOSM 633 22 Jennifer 01:45:00 01:45:00 Ramiro 919618 Orthop e dic [facility] Medicin e 2021-09-20 2021-09-20 Outpatient FOG_Patel_A AOSM AOSM 633 22 Jennifer 01:53:00 01:53:00 Ramiro 139253 Orthop e dic [facility] Medicin e 2021-09-19 2021-09-19 Outpatient FOG_Patel_A AOSM AOSM 633 2220 Jennifer 02:45:00 02:45:00 Ramiro 692453 Orthop e dic Sports Medicin e 2021-09-19 2021-09-19 Outpatient Valentina Sherman AOSM AOSM 02a 20p00-5 00:00:00 00:00:00 R 7ab-11ed-a [id number] 2021-09-19 2021-09-19 Valentina R AOSM [place] - Ortho [id number] 9 Jennifer 00:00:00 00:00:00 MD John: Bety Abarca - Orthope [address] FOG_Ofc dic [facility] Spor [facility], [place] [address] , Ph. [phone] 2021-09-18 2021-09-18 Orders Betito, 1.2.840.1 [id number] 2100 [id number] Methodi 00:00:00 00:00:00 Only Irfan 81297.1.[address] Hashim 3.430.2.7 Hospit a .3.812933 l .8 2021-09-15 2021-09-15 Orders Claus, 1.2.840.1 [id number] 87355 71342 Methodi 00:00:00 00:00:00 Only Rita 85717.1.[address] 3.430.2.7 Hospit a .3.418937 l .8 2021-09-14 2021-09-14 Outpatient FOG_Patel_A AOSM AOSM 633 6722-20 Jennifer 01:25:00 01:25:00 Ramiro 866366 Orthop e dic Sports Medicin e 2021-09-14 2021-09-14 (TEL) STLMLC STLMLC [id number] Co mmon 00:00:00 00:00:00 Spirit [facility] 2021-09-13 2021-09-13 OFFICE STLMLC STLMLC [id number] Co mmon 00:00:00 00:00:00 VISIT [facility] PT LEVEL 3 [facility] 2021-09-11 2021-09-11 Patient Scott, 1.2.840.1 [id number] 68239 Methodi 00:00:00 00:00:00 Outreach Kwan 76366.1.[address] 3.430.2.7 Hospit a .3.821919 l .8 2021-09-04 2021-09-04 Orders Betito, 1.2.840.1 [id number] 2100 019079 Methodi 00:00:00 00:00:00 Only Irfoctavia 66167.1.[address] Hashim 3.430.2.7 Hospit a .3.022817 l .8 2021-09-01 2021-09-01 Emergency EM Mena, HCATO HCATO [id number] [facility] 19:25:00 20:59:00 [place] 768858 [place] [facility] 2021-09-01 2021-09-01 Emergency EM Mena, HCATO AMBROSE [id number] [facility] 19:25:00 20:59:00 Christopher 60 [place] [facility] 2021-08-29 2021-08-29 Patient Johnny, 1.2.840.1 [id number] 8486 Methodi 00:00:00 00:00:00 Outreach Magaly 69292.1.[address] 3.430.2.7 Hospit a .3.823211 l .8 2021-08-28 2021-08-28 Telephone Carlos, 1.2.840.1 [id number] 2100 [id number] Methodi 00:00:00 00:00:[address] 3.430.2.7 Hospit a .3.214189 l .8 2021-07-27 2021-07-27 Orders Betito, 1.2.840.1 [id number] 2100 278153 Methodi 00:00:00 00:00:00 Only Irfan 30483.1.[address] Hashim 3.430.2.7 Hospit a .3.516518 l .8 2021-07-10 2021-07-10 Office Betito, 1.2.840.1 [id number] 2099 342342 Methodi 15:00:00 15:59:21 Visit Irfoctavia 47545.1.[address] Hashim 3.430.2.7 Hospit a .3.248732 l .8 2021-07-10 2021-07-10 Orders Carlos, 1.2.840.1 [id number] 789615 8986 Methodi 00:00:00 00:00:00 Only Evernice 44250.1.[address] 3.430.2.7 Hospit a .3.197080 l .8 2021-07-10 2021-07-10 Travel 1.2.840.1 1.2.861.707 2629 753149 Methodi 00:00:00 00:00:[address] 3.430.2.7 0.2.7.3.698 Ho spita .3.875081 084.8 l .8 2021-07-10 2021-07-10 [facility] 90667 90351 [place] 00:00:00 00:00:00 IRFAN [address] 2021-06-30 2021-06-30 Patient Garret, 1.2.840.1 [id number] 50756 94813 Methodi 00:00:00 00:00:00 Outreach Roberta 16055.1.[address] 3.430.2.7 Hospit a .3.763834 l .8 2021-06-22 2021-06-22 Telephone Betito, 1.2.840.1 [id number] Methodi 00:00:00 00:00:[address] Hashim 3.430.2.7 Hospit a .3.436447 l .8 2021-06-22 2021-06-22 Travel 1.2.840.1 1.2.519.345 5256 828169 Methodi 00:00:00 00:00:[address] 3.430.2.7 0.2.7.3.698 Ho spita .3.932211 084.8 l .8 2021-06-22 2021-06-22 Transition CHAVEZ DeutschDaryl 1.2.840.114 929 26943 Univers 00:00:00 00:00:00 of Care Maxim WOODY 350.1.13.10 ity of [place] 4.2.7.2.686 [facility] [phone] [facility] [address] 2021-06-17 2021-06-21 Hospital Mikhail Goodwin [facility] 1.2.840.11 4 [id number] Univers 22:07:00 16:30:00 [facility]counter [facility] 350.1.13. 10 ity of Mitch Sherman CLEAR 4.2.7.2.686 [facility] [phone] [facility] [address] (CLC) 2021-06-17 2021-06-21 Inpatient X MITCH SHERMAN [facility] MAT 10 [id number] Univers 22:07:00 16:30:00 MITCH SHERMAN ity of [facility] 2021-06-18 2021-06-18 Surgery [facility] 1.2.867.[address] [facility] 16:00:00 18:12:00 [facility] 350.1.13.10 it y of CLEAR 4.2.7.2.686 Ti WALLER [phone] [address] ([facility]) 2021-06-16 2021-06-17 Emergency Dandy, 1.2.840.1 [id number] 875 [id number] Methodi 19:44:00 00:38:[address] Go 3.430.2.7 Hospit a .3.789567 l .8 2021-06-16 2021-06-17 Emergency DANDY, [facility] 251 [id number] 226 [place] 00:00:00 00:00:00 ISRAEL 494 Me thodi 2021-06-15 2021-06-15 Office Alize Brenner 1.2.840.1 [id number] 078 [id number] Methodi 13:30:00 14:11:00 Visit Niels 33435.1.[address] 3.430.2.7 Hospit a .3.902421 l .8 2021-06-15 2021-06-15 Outpatient [facility] [id number] 826 [place] 00:00:00 00:00:[address] 2021-06-09 2021-06-10 Emergency Venkata, 1.2.840.1 [id number] 2100 753381 Methodi 20:47:00 01:38:[address] Emmanuel 3.430.2.7 Hosp mi .3.099976 l .8 2021-06-09 2021-06-10 [facility] 064 [id number] [place] 00:00:00 00:00:00 KALIF [address] 2021-05-26 2021-05-26 Office Alize Brenner 1.2.840.1 [id number] 008 [id number] Methodi 11:00:00 11:11:44 Visit Niels 63278.1.[address] 3.430.2.7 Hospit a .3.670050 l .8 2021-05-26 2021-05-26 Telephone Alize Brenner 1.2.840.1 [id number] 2 [id number] Methodi 00:00:00 00:00:[address] 3.430.2.7 Hospit a .3.997015 l .8 2021-05-26 2021-05-26 Travel 1.2.840.1 1.2.579.439 1054 686465 Methodi 00:00:00 00:00:[address] 3.430.2.7 0.2.7.3.698 Ho spita .3.444081 084.8 l .8 2021-05-26 2021-05-26 Outpatient ALIZE BRENNER [facility] 2100 [id number] [place] 00:00:00 00:00:[address] 2021-05-26 2021-05-26 Outpatient ALIZE BRENNER [facility] 2100 [id number] [place] 00:00:00 00:00:[address] 2021-05-24 2021-05-24 Orders Presley, 1.2.840.1 [id number] 100263 5004 Methodi 00:00:00 00:00:00 Only Rosalia 23181.1.[address] 3.430.2.7 Hospit a .3.121030 l .8 2021-05-15 2021-05-15 Treatment Deuce Valentino 1.2.840.1 [id number] Methodi 10:30:00 11:30:00 Jeremi Gonzalez 34494.1. [address] 3.430.2.7 Hospit a .3.857462 l .8 2021-05-15 2021-05-15 Travel 1.2.840.1 1.2.293.633 7052 716865 Methodi 00:00:00 00:00:[address] 3.430.2.7 0.2.7.3.698 Ho spita .3.615003 084.8 l .8 2021-05-15 2021-05-15 [facility] [place] 00:00:00 00:00:[address] 2021-05-08 2021-05-08 Treatment Deuce Valentino 1.2.840.1 [id number] Methodi 11:30:00 12:30:[address] 3.430.2.7 Hospit a .3.241999 l .8 2021-05-08 2021-05-08 Travel 1.2.840.1 1.2.244.280 8198 908539 Methodi 00:00:00 00:00:[address] 3.430.2.7 0.2.7.3.698 Ho spita .3.908327 084.8 l .8 2021-05-08 2021-05-08 Plan of 1.2.840.1 [id number] 097717 3503 Methodi 00:00:00 00:00:[address] Documentat 3.430.2.7 Hos amadou ion .3.184769 l .8 2021-05-08 2021-05-08 [facility]patient [facility] [place] 00:00:00 00:00:00 DEUCE [address] 2021-05-03 2021-05-03 Documentat Rios, 1.2.840.1 [id number] 818 [id number] Methodi 00:00:00 00:00:00 ion Ozzy 76639.1.[address] 3.430.2.7 Hospit a .3.559190 l .8 2021-04-28 2021-04-28 Treatment Deuce Valentino 1.2.840.1 [id number] Methodi 11:00:00 12:00:00 Kayley Devlin 39861.1.[address] 3.430.2.7 Hospit a .3.573843 l .8 2021-04-282021-04-28 [facility] 65025 34855 [place] 00:00:00 00:00:00 IRFOCTAVIA [address] 2021-04-26 2021-04-26 Telephone Carlos, 1.2.840.1 [id number] 2099 386071 Methodi 00:00:00 00:00:[address] 3.430.2.7 Hospit a .3.808394 l .8 2021-04-25 2021-04-25 Treatment Deuce Valentino 1.2.840.1 [id number] Methodi 10:30:00 11:30:00 [address] Qiu 72331.1.[address] 3.430.2.7 Hospit a .3.869485 l .8 2021-04-25 2021-04-25 Travel 1.2.840.1 1.2.928.802 7045 650270 Methodi 00:00:00 00:00:[address] 3.430.2.7 0.2.7.3.698 Ho spita .3.936659 084.8 l .8 2021-04-25 2021-04-25 [facility] 46553 33335 [place] 00:00:00 00:00:00 RICARDOOCTAVIA [address] 2021-04-21 2021-04-21 Treatment Deuce Valentinohelen 1.2.840.1 [id number] Methodi 10:30:00 11:30:00 Allison Qiu 11739.1.[address] 3.430.2.7 Hospit a .3.900014 l .8 2021-04-21 2021-04-21 Travel 1.2.840.1 1.2.000.430 2043 450913 Methodi 00:00:00 00:00:[address] 3.430.2.7 0.2.7.3.698 Ho spita .3.160523 084.8 l .8 2021-04-21 2021-04-21 [facility] 49220 89624 [place] 00:00:00 00:00:00 IRFOCTAVIA [address] 2021-04-14 2021-04-14 Treatment Deuce Valentino 1.2.840.1 [id number] Methodi 10:30:00 11:30:[address]405.1.[address] 3.430.2.7 Hospit a .3.334113 l .8 2021-04-14 2021-04-14 Travel 1.2.840.1 1.2.484.122 3624 022158 Methodi 00:00:00 00:00:[address] 3.430.2.7 0.2.7.3.698 Ho spita .3.351382 084.8 l .8 2021-04-14 2021-04-14 [facility] 52458 87752 [place] 00:00:00 00:00:00 DEUCE [address] 2021-04-11 2021-04-11 Office Betito, 1.2.840.1 [id number] 2100 546668 Methodi 11:20:00 12:12:05 Visit Deuce 91435.1.[address] Hashim 3.430.2.7 Hospit a .3.541989 l .8 2021-04-11 2021-04-11 Treatment Deuce Valentino 1.2.840.1 [id number] Methodi 10:00:00 11:00:00 Kayley Devlin 21177.1.[address] 3.430.2.7 Hospit a .3.417890 l .8 2021-04-11 2021-04-11 Travel 1.2.840.1 1.2.334.254 8887 632958 Methodi 00:00:00 00:00:[address] 3.430.2.7 0.2.7.3.698 Ho spita .3.885865 084.8 l .8 2021-04-11 2021-04-11 Outpatient [facility], [facility] 02957 66565 [place] 00:00:00 00:00:00 IRFAN [address] 2021-04-11 2021-04-11 Outpatient [facility], [facility] 43978 [place] 00:00:00 00:00:00 IRFAN [address] 2021-04-07 2021-04-07 Documentat Jernsletten 1.2.840.1 [id number] Methodi 00:00:00 00:00:00 ion RashaunAllison 93961.1.1 719 s t 3.430.2.7 Hospit a .3.224574 l .8 2021-04-06 2021-04-06 Procedure Betito, 1.2.840.1 [id number] 21 [id number] Methodi 14:40:00 15:47:26 visit Irfan 67866.1.[address] Hashim 3.430.2.7 Hospit a .3.269895 l .8 2021-04-06 2021-04-06 Travel 1.2.840.1 1.2.714.984 9710 125890 Methodi 00:00:00 00:00:[address] 3.430.2.7 0.2.7.3.698 Ho spita .3.928962 084.8 l .8 2021-04-06 2021-04-06 Outpatient [facility] 18368 [place] 00:00:00 00:00:00 IRFAN [address] 2021-04-04 2021-04-04 Documentat Jernsletten 1.2.840.1 [id number] 3421112103 Methodi 00:00:00 00:00:00 ion Allison 11283.1.1 148 s t 3.430.2.7 Hospit a .3.519256 l .8 2021-04-02 2021-04-02 Orders Dadabhoy, 1.2.840.1 760804910 2100 069894 Methodi 00:00:00 00:00:00 Only Irfan 32968.1.[address] Hashim 3.430.2.7 Hospit a .3.995796 l .8 2021-03-31 2021-03-31 Treatment Deuce Valentino 1.2.840.1 [id number] [id number] Methodi 11:00:00 12:00:00 Kayley Devlin 76756.1.[address] 3.430.2.7 Hospit a .3.702903 l .8 2021-03-31 2021-03-31 Travel 1.2.840.1 1.2.247.504 6123 264165 Methodi 00:00:00 00:00:[address] 3.430.2.7 0.2.7.3.698 Ho spita .3.139857 084.8 l .8 2021-03-31 2021-03-31 [facility] 26891 16889 [place] 00:00:00 00:00:00 IRFAN [address] 2021-03-29 2021-03-29 Office Betito, 1.2.840.1 659999055 2100 252897 Methodi 11:20:00 12:04:24 Visit Irfoctavia 55221.1.[address] Hashim 3.430.2.7 Hospit a .3.583784 l .8 2021-03-29 2021-03-29 Outpatient [facility] 64135 08802 [place] 00:00:00 00:00:00 IRFAN [address] 2021-03-29 2021-03-29 Outpatient [facility] 20028 05489 [place] 00:00:00 00:00:00 IRFAN [address] 2021-03-28 2021-03-28 Treatment Deuce Valentino 1.2.840.1 [id number] Methodi 11:30:00 12:30:00 Allison Qiu [address]1509.1.[address] 3.430.2.7 Hospit a .3.721015 l .8 2021-03-28 2021-03-28 Travel 1.2.840.1 1.2.614.354 2175 878864 Methodi 00:00:00 00:00:[address] 3.430.2.7 0.2.7.3.698 Ho spita .3.167461 084.8 l .8 2021-03-28 2021-03-28 Patient Eb, 1.2.840.1 [id number] 922 9096241 Methodi 00:00:00 00:00:[address].1.[address] 3.430.2.7 Hospit a .3.437824 l .8 2021-03-28 2021-03-28 Outpatient [facility] 84421 89564 [place] 00:00:00 00:00:[address] 2021-03-24 2021-03-24 Treatment Deuce Valentinohelen 1.2.840.1 [id number] [id number] Methodi 11:30:00 12:30:00 [address]ios [address]15.1.[address] 3.430.2.7 Hospit a .3.263683 l .8 2021-03-24 2021-03-24 Outpatient [facility] 21860 25561 [place] 00:00:00 00:00:[address] DEUCE [address] 2021-03-23 2021-03-23 Travel 1.2.840.1 1.2.524.396 9018 542062 Methodi 00:00:00 00:00:[address] 3.430.2.7 0.2.7.3.698 Ho spita .3.674190 084.8 l .8 2021-03-20 2021-03-20 Evaluation Deuce Valentino Elsy 1.2.840. 1 [id number] [id number] Methodi 11:30:00 12:30:00 [address] Qiu [address]93.1.[address] 3.430.2.7 Hospit a .3.847623 l .8 2021-03-20 2021-03-20 Plan of 1.2.840.1 123028337 786614 5629 Methodi 00:00:00 00:00:[address] Documentat 3.430.2.7 Hos amadou ion .3.372536 l .8 2021-03-20 2021-03-20 Travel 1.2.840.1 1.2.350.747 4734 812064 Methodi 00:00:00 00:00:[address] 3.430.2.7 0.2.7.3.698 Ho spita .3.885254 084.8 l .8 2021-03-20 2021-03-20 [facility] 07323 54573 [place] 00:00:00 00:00:00 [address]FAN [address] 2021-03-13 2021-03-13 Travel 1.2.840.1 1.2.722.499 3260 823361 Methodi 00:00:00 00:00:[address] 3.430.2.7 0.2.7.3.698 Ho spita .3.941535 084.8 l .8 2021-03-08 2021-03-08 Orders Betito 1.2.840.1 [id number] 2099 179575 Methodi 00:00:00 00:00:00 Only Irfan 26870.1.[address] Hashim 3.430.2.7 Hospit a .3.927433 l .8 2021-03-07 2021-03-07 Refill Aragon, 1.2.840.1 579074418 2099 999436 Methodi 00:00:00 00:00:00 Jeana 63328.1.1 780 s t 3.430.2.7 Hospit a .3.541261 l .8 2021-03-02 2021-03-02 Refill Aragon, 1.2.840.1 870813399 2099 532439 Methodi 00:00:00 00:00:00 Jeana 15523.1.1 152 s t 3.430.2.7 Hospit a .3.198662 l .8 2021-02-28 2021-02-28 Refill Betito, 1.2.840.1 726344772 2099 242888 Methodi 00:00:00 00:00:[address] Hashim 3.430.2.7 Hospit a .3.264059 l .8 2021-02-14 2021-02-14 Travel 1.2.840.1 1.2.949.473 3040 380829 Methodi 00:00:00 00:00:[address] 3.430.2.7 0.2.7.3.698 Ho spita .3.575896 084.8 l .8 2021-01-31 2021-01-31 Office Betito, 1.2.840.1 [id number] 2099 344608 Methodi 11:20:00 12:33:36 Visit Irfan 73580.1.[address] Hashim 3.430.2.7 Hospit a .3.388427 l .8 2021-01-31 2021-01-31 Travel 1.2.840.1 1.2.149.048 5647 996373 Methodi 00:00:00 00:00:[address] 3.430.2.7 0.2.7.3.698 Ho spita .3.378273 084.8 l .8 2021-01-31 2021-01-31 Outpatient BETITO, [facility] 63190 15437 [place] 00:00:00 00:00:00 IRFAN [address] 2021-01-11 2021-01-11 Outpatient HILDA [facility] [id number] 290 [place] 00:00:00 00:00:00 AL[address]EDO [address] 2020-12-12 2020-12-12 Outpatient ADELITA, [facility] [id number] 5055 [place] 00:00:00 00:00:00 ECHO 668 Method i 2020-12-09 2020-12-09 Outpatient [facility] [id number] 127 [place] 00:00:00 00:00:00 601 Method i 2020 2020 Outpatient BETITO, [facility] 48896 31954 [place] 00:00:00 00:00:00 IRFAN 892 Method i 2020-11-23 2020-11-23 Outpatient [facility] [id number] 619 [place] 00:00:00 00:00:00 955 Method i 2020-11-01 2020-11-01 Outpatient BETITO, [facility] 75666 59621 [place] 00:00:00 00:00:00 IRFAN 568 Method i 2020-09-11 2020-09-24 Inpatient ARUN, SYDNEE [facility] 014 84525 74408 [place] 00:00:00 00:00:00 681 Method i 2020-09-03 2020-09-11 Inpatient JONATHAN, [facility] 064 [id number] 87 [place] 00:00:00 00:00:00 AIKL 221 Method i 2020-08-29 2020-08-29 Outpatient BETITO, [facility] 01184 04586 [place] 00:00:00 00:00:00 IRFAN 858 Method i 2020-08-15 2020-08-15 Outpatient CHRISSY, [facility] 694 9781268 [place] 00:00:00 00:00:00 MALIA 535 [facility] 2020-07-04 2020-07-04 Outpatient KAT, [facility] [id number] [place] 00:00:00 00:00:00 STORM 876 [facility] 2020-06-24 2020-06-24 Outpatient GARDINER, AFAF [facility] [id number] [place] 00:00:00 00:00:00 415 [facility] 2020-06-23 2020-06-23 Outpatient JARODKEN, [facility] [id number] [place] 00:00:00 00:00:00 MAURICE 249 [facility] 2020-06-22 2020-06-22 Outpatient KRISH, [facility] [id number] [place] 00:00:00 00:00:00 OMER 382 [facility] 2020-06-21 2020-06-21 Outpatient GILDARDO, [facility] [id number] [place] 00:00:00 00:00:00 RIVAS 026 [facility] 2020-06-20 2020-06-20 Outpatient KAT, [facility] [id number] [place] 00:00:00 00:00:00 STORM 141 [facility] 2020-06-20 2020-06-20 Outpatient GARDINER, AFAF [facility] [id number] [place] 00:00:00 00:00:00 531 [facility] 2020-06-17 2020-06-17 Outpatient GARDINER, AFAF [facility] [id number] [place] 00:00:00 00:00:00 499 [facility] 2020-06-16 2020-06-16 Outpatient EDKENYAKEN, [facility] [id number] [place] 00:00:00 00:00:00 MAURICE 463 [facility] 2020-06-15 2020-06-16 Outpatient KRISH, [facility] [id number] [place] 00:00:00 00:00:00 OMER 021 [facility] 2020-06-14 2020-06-14 Outpatient GILDARDO, [facility] [id number] [place] 00:00:00 00:00:00 RIVAS 787 [facility] 2020-06-13 2020-06-13 Outpatient KAT, [facility] [id number] [place] 00:00:00 00:00:00 STORM 797 [facility] 2020-06-13 2020-06-13 Outpatient GARDINER, AFAF [facility] [id number] [place] 00:00:00 00:00:00 055 [facility] 2020-06-10 2020-06-10 Outpatient GARDINER, AFAF [facility] [id number] [place] 00:00:00 00:00:[address] 2020-06-08 2020-06-08 Outpatient ROXANN, [facility] [id number] [place] 00:00:00 00:00:00 JOSETTE [address] 2020-06-06 2020-06-06 Outpatient ABDIFATAH, AFAF [facility] [id number] [place] 00:00:00 00:00:[address] 2020-06-02 2020-06-02 Outpatient EDANDRIY, [facility] [id number] [place] 00:00:00 00:00:00 MAURICE [address] 2020-06-01 2020-06-01 Outpatient KRISH, [facility] [id number] [place] 00:00:00 00:00:00 OMER [address] 2020-05-31 2020-05-31 Outpatient GILDARDO, [facility] [id number] [place] 00:00:00 00:00:00 RIVAS [address] 2020-05-30 2020-05-30 Outpatient ABDIFATAH, AFAF [facility] [id number] [place] 00:00:00 00:00:[address] 2020-05-27 2020-05-27 Outpatient ABDIFATAH, AF [facility] [id number] [place] 00:00:00 00:00:[address] 2020-05-26 2020-05-26 Outpatient ZORAIDA, [facility] [id number] [place] 00:00:00 00:00:00 MAURICE [address] 2020-05-25 2020-05-25 Outpatient KRISH, [facility] [id number] [place] 00:00:00 00:00:00 OMER [address] 2020-05-24 2020-05-24 Outpatient GILDARDO, [facility] [id number] [place] 00:00:00 00:00:00 RIVAS [address] 2020-05-23 2020-05-23 Outpatient KAT, [facility] [id number] [place] 00:00:00 00:00:00 STORM [address] 2020-05-23 2020-05-23 Outpatient ABDIFATAH, AFAF [facility] [id number] [place] 00:00:00 00:00:[address] 2020-05-20 2020-05-20 Outpatient ZORAIDA, [facility] [id number] [place] 00:00:00 00:00:00 MAURICE [address] 2020-05-19 2020-05-19 Outpatient EDEIKEN, [facility] [id number] [place] 00:00:00 00:00:00 MAURICE [address] 2020-05-18 2020-05-18 Outpatient KRISH, [facility] [id number] [place] 00:00:00 00:00:00 OMER [address] 2020-05-17 2020-05-17 Outpatient GILDARDO, [facility] [id number] [place] 00:00:00 00:00:00 ROB [address] 2020-05-16 2020-05-16 Outpatient ROXANN, [facility] [id number] [place] 00:00:00 00:00:00 JOSETTE [address] 2020-05-16 2020-05-16 Outpatient [facility] [id number] [place] 00:00:00 00:00:[address] 2020-05-13 2020-05-13 Outpatient ABDIFATAH, AFAF [facility] [id number] [place] 00:00:00 00:00:[address] 2020-05-12 2020-05-12 Outpatient ZORAIDA, [facility] [id number] [place] 00:00:00 00:00:00 MAURICE [address] 2020-05-11 2020-05-11 Outpatient ROXANN, [facility] [id number] [place] 00:00:00 00:00:00 JOSETTE [address] 2020-05-10 2020-05-10 Outpatient GILDARDO, [facility] [id number] [place] 00:00:00 00:00:00 ROB [address] 2020-05-09 2020-05-09 Outpatient ABDIFATAH, AFAF [facility] [id number] [place] 00:00:00 00:00:[address] 2020-05-06 2020-05-06 Outpatient GARDINER, AFAF [facility] [id number] [place] 00:00:00 00:00:[address] 2020-05-05 2020-05-05 Outpatient ZORAIDA, [facility] [id number] [place] 00:00:00 00:00:00 MAURICE [address] 2020-05-04 2020-05-04 Outpatient KRISH, [facility] [id number] [place] 00:00:00 00:00:00 OMER [address] 2020-05-03 2020-05-03 Outpatient GILDARDO, [facility] [id number] [place] 00:00:00 00:00:00 RIVAS [address] 2020-05-02 2020-05-02 Outpatient ABDIFATAH, AF [facility] [id number] [place] 00:00:00 00:00:[address] 2020-04-29 2020-04-29 Outpatient ABDIFATAH, AFAF [facility] [id number] [place] 00:00:00 00:00:[address] 2020-04-28 2020-04-28 Outpatient GILDARDO, [facility] [id number] [place] 00:00:00 00:00:00 ROB [address] 2020-04-27 2020-04-27 Outpatient ZORAIDA, [facility] [id number] [place] 00:00:00 00:00:00 MAURICE [address] 2020-04-26 2020-04-26 Outpatient GILDARDO, [facility] [id number] [place] 00:00:00 00:00:00 RIVAS 183 [facility] 2020-04-25 2020-04-25 Outpatient KAT, [facility] [id number] [place] 00:00:00 00:00:00 STORM [address] 2020-04-23 2020-04-23 Outpatient [facility] [id number] [place] 00:00:00 00:00:[address] 2020-04-12 2020-04-12 Outpatient ZORAIDA, [facility] [id number] [place] 00:00:00 00:00:00 MAURICE [address] 2020-04-07 2020-04-07 Outpatient ZORAIDA, [facility] [id number] [place] 00:00:00 00:00:00 MAURICE [address] 2020-04-07 2020-04-07 Outpatient KRISH, [facility] [id number] [place] 00:00:00 00:00:00 OMER [address] 2020-04-06 2020-04-06 Outpatient Cerana_M VFP VFP [id number] [facility] 03:42:00 03:42:00 03610 Family Practic e 2020-04-06 2020-04-06 Outpatient BETITO, [facility] [id number] [place] 00:00:00 00:00:00 IRFAN 833 [facility] i 2020-04-06 2020-04-06 Outpatient KRISH, [facility] [id number] [place] 00:00:00 00:00:00 OMER 340 [facility] i 2020-04-04 2020-04-04 Outpatient KAT, [facility] [id number] [place] 00:00:00 00:00:00 STORM 909 Method i 2020-03-28 2020-03-28 Outpatient ROXANN, [facility] [id number] [place] 00:00:00 00:00:00 JOSETTE 101 [facility] i 2020-03-28 2020-03-28 Outpatient KAT, [facility] [id number] [place] 00:00:00 00:00:00 STORM 125 [facility] i 2020-03-17 2020-03-17 Outpatient EDEIKEN, [facility] [id number] [place] 00:00:00 00:00:00 MAURICE 698 [facility] i 2020-03-16 2020-03-16 Outpatient KRONFOL, [facility] [id number] [place] 00:00:00 00:00:00 ZIAD 726 Method i 2020-03-15 2020-03-15 Outpatient MARQUEZKO, [facility] [id number] [place] 00:00:00 00:00:00 RIVAS 881 [facility] i 2020-03-14 2020-03-14 Outpatient ROXANN, [facility] [id number] [place] 00:00:00 00:00:00 JOSETTE 007 Method i 2020-03-14 2020-03-14 Outpatient KAT, [facility] [id number] [place] 00:00:00 00:00:00 STORM 545 [facility] i 2020-03-11 2020-03-11 Outpatient GARDINER, AFAF [facility] [id number] [place] 00:00:00 00:00:00 909 [facility] i 2020-03-10 2020-03-10 Outpatient EDEIKEN, [facility] [id number] [place] 00:00:00 00:00:00 MAURICE [address] 2020-03-09 2020-03-09 Outpatient KRONFOL, [facility] [id number] [place] 00:00:00 00:00:00 ZIAD [address] 2020-03-08 2020-03-08 Outpatient NURKO, [facility] [id number] [place] 00:00:00 00:00:00 RIVAS [address] 2020-03-07 2020-03-07 Outpatient ROXANN, [facility] [id number] [place] 00:00:00 00:00:00 JOSETTE [address] 2020-03-03 2020-03-03 Outpatient EDEIKEN, [facility] [id number] [place] 00:00:00 00:00:00 MAURICE [address] 2020-03-02 2020-03-02 Outpatient ROXANN, [facility] [id number] [place] 00:00:00 00:00:00 JOSETTE [address] 2020-03-01 2020-03-01 Outpatient NURKO, [facility] [id number] [place] 00:00:00 00:00:00 RIVAS [address] 2020-02-29 2020-02-29 Outpatient ROXANN, [facility] [id number] [place] 00:00:00 00:00:00 JOSETTE [address] 2020-02-25 2020-02-25 Outpatient EDEIKEN, [facility] [id number] [place] 00:00:00 00:00:00 MAURICE [address] 2020-02-24 2020-02-24 Outpatient KRONFOL, [facility] [id number] [place] 00:00:00 00:00:00 ZIAD [address] 2020-02-24 2020-02-24 Outpatient DADABHOY, [facility] [id number] [place] 00:00:00 00:00:00 IRFAN [address] 2020-02-23 2020-02-23 Outpatient NURKO, [facility] [id number] [place] 00:00:00 00:00:00 RIVAS [address] 2020-02-22 2020-02-22 Outpatient GARDINER, AFAF [facility] [id number] [place] 00:00:00 00:00:[address] 2020-02-19 2020-02-19 Outpatient GARDINER, AF [facility] [id number] [place] 00:00:00 00:00:[address] 2020-02-18 2020-02-18 Outpatient EDEIKEN, [facility] [id number] [place] 00:00:00 00:00:00 MAURICE [address] 2020-02-17 2020-02-17 Outpatient KRONFOL, [facility] [id number] [place] 00:00:00 00:00:00 ZIAD [address] 2020-02-16 2020-02-16 Outpatient NURKO, [facility] [id number] [place] 00:00:00 00:00:00 RIVAS [address] 2020-02-15 2020-02-15 Outpatient GARDINER, [facility] [id number] [place] 00:00:00 00:00:[address] 2020-02-12 2020-02-12 Outpatient GARDINER, AF [facility] [id number] [place] 00:00:00 00:00:[address] 2020-02-11 2020-02-11 Outpatient EDEIKEN, [facility] [id number] [place] 00:00:00 00:00:00 MAURICE [address] 2020-02-10 2020-02-10 Outpatient KRONFOL, [facility] [id number] [place] 00:00:00 00:00:00 ZIAD [address] 2020-02-09 2020-02-09 Outpatient KAT, [facility] [id number] [place] 00:00:00 00:00:00 STORM [address] 2020-02-08 2020-02-08 Outpatient NURKO, [facility] [id number] [place] 00:00:00 00:00:00 RIVAS [address] 2020-02-05 2020-02-05 Outpatient GARDINER, AF [facility] [id number] [place] 00:00:00 00:00:[address] 2020-02-04 2020-02-04 Outpatient EDEIKEN, [facility] [id number] [place] 00:00:00 00:00:00 MAURICE [address] 2020-02-03 2020-02-03 Outpatient EDEIKEN, [facility] [id number] [place] 00:00:00 00:00:00 MAURICE [address] 2020-01-25 2020-01-25 Outpatient KAT, [facility] [id number] [place] 00:00:00 00:00:00 STORM [address] 2020-01-18 2020-01-18 Outpatient KRISH, [facility] [id number] [place] 00:00:00 00:00:00 OMER [address] 2020-01-13 2020-01-13 Outpatient KRISH, [facility] [id number] [place] 00:00:00 00:00:00 OMER [address] 2020-01-11 2020-01-11 Outpatient KAT, [facility] [id number] [place] 00:00:00 00:00:00 STORM [address] 2019-12-30 2019-12-30 Outpatient KAT, [place] [id number] [place] 00:00:00 00:00:00 STORM [address] 2019-12-28 2019-12-28 Outpatient KAT, [facility] [id number] [place] 00:00:00 00:00:00 STORM [address] 2019-12-28 2019-12-28 Outpatient KAT, [facility] [id number] [place] 00:00:00 00:00:00 STORM [address] 2019-12-15 2019-12-15 Outpatient DADABHOY, [facility] [id number] [place] 00:00:00 00:00:00 RICARDOAN [address] 2019-12-14 2019-12-14 Outpatient KAT, [facility] [id number] [place] 00:00:00 00:00:00 STORM [address] 2019-11-30 2019-11-30 Outpatient KAT, [facility] [id number] [place] 00:00:00 00:00:00 STORM [address] 2019-11-30 2019-11-30 Outpatient KAT, [facility] [id number] [place] 00:00:00 00:00:00 STORM [address] 2019-11-18 2019-11-18 Outpatient DADABHOY, [facility] [id number] [place] 00:00:00 00:00:00 IRFAN 357 [facility] i 2019-11-16 2019-11-16 Outpatient KAT, [facility] [id number] [place] 00:00:00 00:00:00 STORM [address] 2019-11-12 2019-11-12 Outpatient KAT, [facility] [id number] [place] 00:00:00 00:00:00 STORM 465 Method i 2019-11-02 2019-11-02 Outpatient KAT, [facility] [id number] [place] 00:00:00 00:00:00 STORM 368 [facility] i 2019-10-30 2019-10-30 Outpatient KAT, [facility] [id number] [place] 00:00:00 00:00:00 STORM 861 Method i 2019-10-30 2019-10-30 Outpatient KAT, [facility] [id number] [place] 00:00:00 00:00:00 STORM 865 Method i 2019-10-26 2019-10-26 Outpatient KAT, [facility] [id number] [place] 00:00:00 00:00:00 STORM 098 Method i 2017-06-27 2017-07-27 [facility] [id number] [place] 12:09:00 04:59:00 r Gabriel 19 l [facility] 2017-06-27 2017-07-27 [facility] [id number] [place] 12:09:00 04:59:00 r Gabriel 19 l [facility] 2017-06-27 2017-07-26 Outpatient Dara Morton [facility] [id number] 07:09:00 23:59:00 Guillermina 19 2017-07-10 2017-07-11 [facility] 4572 [id number] [place] 14:51:00 04:59:00 r Gabriel 06 l [facility] 2017-07-10 2017-07-11 [facility] [id number] [place] 14:51:00 04:59:00 r Gabriel 06 l [facility] 2017-07-10 2017-07-10 [facility] [id number] 09:51:00 23:59:00 Michael Kathi [facility] n 2017-07-10 2017-07-10 Outpatient Uriah [facility] [id number] 09:51:00 23:59:00 Michael Kathi Uriarte-Rehma n 2017-06-03 2017-07-03 Wound [facility] 4572 [id number] [place] 18:06:00 04:59:00 r [place] 18 l [facility] 2017-06-03 2017-07-03 Wound [facility] 4572 [id number] [facility] 18:06:00 04:59:00 r [place] 18 l [facility] 2017-06-03 2017-07-02 Outpatient Pankaj [facility] [id number] 13:06:00 23:59:00 Elías E 18 2017-06-17 2017-06-18 Outpatient nullFlavo [facility] 4572 [id number] [place] 14:32:00 04:59:00 r [place] 05 l [facility] 2017-06-17 2017-06-18 Outpatient nullFlavo [place] [id number] Memoria 14:32:00 04:59:00 r [place] 05 l [facility] 2017-06-17 2017-06-17 Outpatient Uriah [facility] [id number] 09:32:00 23:59:00 [facility]al [facility] 2017-06-03 2017-06-04 [facility] 4572 [id number] [place] 20:01:00 04:59:00 r Gabriel 04 l [facility] 2017-06-03 2017-06-04 Outpatient nullFlavo [facility] 4572 [id number] [place] 20:01:00 04:59:00 r [place] 04 l [facility] 2017-06-03 2017-06-03 Outpatient Uriah [facility] [id number] 15:01:00 23:59:00 Michael 04 Abdur-Rehma n 2017-05-22 2017-05-22 Joseph Medina [facility] [place] - [id number] V illage 00:00:00 00:00:00 Zoran Ann: 9055 [facility] [address], [place] [address] , Ph. 2017-05-03 2017-05-04 Day [facility] [id number] [place] 18:23:00 01:10:00 Surgery r [place] 02 l [facility] 2017-05-03 2017-05-04 Day [facility] [id number] [place] 18:23:00 01:10:00 Surgery r [place] 02 l [facility] 2017-05-03 2017-05-03 Outpatient Pankaj [facility] [id number] 12:23:00 19:10:00 Elías E 02 2017-03-28 2017-04-27 Wound [facility] 4572 [id number] Memoria 17:21:00 05:59:00 r Gabriel 17 l [facility] 2017-03-28 2017-04-27 Wound [facility] 4572 [id number] Memoria 17:21:00 05:59:00 r Gabriel 17 l [facility] 2017-03-28 2017-04-26 Outpatient Pankaj [facility] [id number] 11:21:00 23:59:00 Elías E 17 2017-04-25 2017-04-26 Out[facility] 4572 [id number] Mem[place] 14:33:00 05:59:00 r Gabriel 03 l [facility] 2017-04-25 2017-04-26 Outpatient [facility] 4572 [id number] [place] 14:33:00 05:59:00 r Gabriel 03 l [facility] 2017-04-25 2017-04-25 Outpatient Pankaj [facility] [id number] 08:33:00 23:59:00 Elías E 03 2017-04-18 2017-04-19 Out[facility] 4572 [id number] [place] 11:00:00 05:59:00 r Gabriel 46 l [facility] 2017-04-18 2017-04-19 Outpatient [facility] 4572 [id number] [facility] 11:00:00 05:59:00 r Gabriel 46 l [facility] 2017-04-18 2017-04-18 Outpatient Pankaj [facility] [id number] 05:00:00 23:59:00 Elías E 46 2017-03-28 2017-03-28 Outpatient [facility] NW [id number] [facility] 11:21:00 11:21:00 2017-02-26 2017-02-26 Joseph Medina [facility] [place] - [id number] V illage 00:00:00 00:00:00 Zoran Ann y MD: 9055 [facility], [facility] [address], [place] [address] , Ph. 2016-11-22 2016-12-22 Wound Care [facility] 4572 [id number] Memoria 15:55:00 04:59:00 r Gabriel 16 cari [facility] 2016-11-22 2016-12-22 Wound Care nullFlavo [place] [id number] Memoria 15:55:00 04:59:00 r Gabriel 16 cari [facility] 2016-11-22 2016-12-21 Outpatient Pankaj [facility] [id number] 10:55:00 23:59:00 Elías E 16 2016-11-23 2016-11-23 Joseph Carol [facility] [place] - [id number] V illage 00:00:00 00:00:00 Zoran Ann y MD: 9055 [facility], [facility] [address], [place] [address] , Ph. 2016-10-11 2016-11-10 Wound Care nullFlavo [facility] 4572 [id number] [place] 14:30:00 04:59:00 r Gabriel 15 cari [facility] 2016-10-11 2016-11-10 Wound Care nullFlavo [facility] 4572 [id number] Memoria 14:30:00 04:59:00 r Gabriel 15 cari [facility] 2016-10-11 2016-11-09 Outpatient [facility] [id number] 09:30:00 23:59:00 Elías E 15 2016-10-18 2016-10-18 Outpatient spring [id number] [facility]inic 14:29:00 14:29:00 [facility] Podiatry [facility] 2016-09-06 2016-10-06 Wound Care [facility] 4572 [id number] Memoria 14:53:00 04:59:00 r Gabriel 14 l [facility] 2016-09-06 2016-10-06 Wound [facility] 4572 [id number] Memoria 14:53:00 04:59:00 r Gabriel 14 l [facility] 2016-09-06 2016-10-05 [facility] [id number] 09:53:00 23:59:00 Elías E 14 2016-08-02 2016-09-01 Wound Care [facility] 4572 [id number] Memoria 17:02:00 04:59:00 r Gabriel 13 l [facility] 2016-08-02 2016-09-01 Wound Care [facility] 4572 [id number] Memoria 17:02:00 04:59:00 r Gabriel 13 l [facility] 2016-08-02 2016-08-31 [facility] [id number] 12:02:00 23:59:00 Elías E 13 2016-08-23 2016-08-23 Joseph Medina [facility] [place] - [id number] V illage 00:00:00 00:00:00 Zoran Ann y MD: 9055 [facility] [address], [place] [address] , Ph. 2016-06-28 2016-07-28 Wound [facility] 4572 [id number] Memoria 15:44:00 04:59:00 r Gabriel 12 l [facility] 2016-06-28 2016-07-28 Wound Care nullFlavo [facility] 4572 [id number] Memoria 15:44:00 04:59:00 r Gabriel 12 l [facility] 2016-06-28 2016-07-27 Outpatient Pankaj [facility] [id number] 10:44:00 23:59:00 Elías E 12 2016-07-26 2016-07-26 Joseph Medina V[facility] [place] - [id number] V illage 00:00:00 00:00:00 Zoran Ann y MD: 9055 [facility] [address], [place] [address] , Ph. 2016-06-26 2016-06-26 Joseph Medina [facility] [place] - [id number] V illage 00:00:00 00:00:00 Zoran Ann: 9055 [facility] - [facility], [facility] [address], [place] [address] , Ph. 2016-05-24 2016-06-23 Wound Care [facility] 4572 [id number] Memoria 15:11:00 04:59:00 r Gabriel 11 l [facility] 2016-05-24 2016-06-23 Wound Care [facility] 4572 [id number] Memoria 15:11:00 04:59:00 r Gabriel 11 l [facility] 2016-05-24 2016-06-22 Outpatient CarlosMarichuy [facility] [id number] 10:11:00 23:59:00 Leida brasher 11 2016-06-14 2016-06-15 Outpatient nullFlavo [facility] 4572 [id number] Memoria 16:29:00 04:59:00 r [place] 03 l [facility] 2016-06-14 2016-06-15 Outpatient [facility] 4572 [id number] Memoria 16:29:00 04:59:00 r Gabriel 03 l [facility] 2016-06-14 2016-06-14 Outpatient Pankaj [facility] [id number] 11:29:00 23:59:00 Elías E 03 2016-04-24 2016-05-24 Wound Care [facility] 4572 [id number] Memoria 14:30:00 04:59:00 r [place] 10 l [facility] 2016-04-24 2016-05-24 Wound Care [facility] 4572 [id number] Memoria 14:30:00 04:59:00 r Gabriel 10 l [facility] 2016-04-24 2016-05-23 Outpatient CarlosMarichuy [facility] [id number] 08:30:00 23:59:00 ttLeida 10 2016-04-24 2016-04-24 Joseph Medina V[facility] [place] - [id number] V illage 00:00:00 00:00:00 Seth Zoran Burns y MD: 9055 [facility] [address], [facility] [address], [place] [address] , Ph. 2016-03-16 2016-04-15 Wound Care nullFlavo [facility] 4572 [id number] Memoria 16:00:00 05:59:00 r Gabriel 09 l [facility] 2016-03-16 2016-04-15 Wound Care nullFlavo [facility] 4572 [id number] Memoria 16:00:00 05:59:00 r Gabriel 09 l [facility] 2016-03-16 2016-04-14 [facility] [id number] 10:00:00 23:59:00 tt, Leida 2016-03-15 2016-03-15 Joseph Medina VFP [place] - [id number] V illage 00:00:00 00:00:00 Zoran Ann y MD: 9055 [facility] [address], P[facility] [address], [place] [address] , Ph. 2016-02-15 2016-02-15 Joseph Medina VF [place] - [id number] V illage 00:00:00 00:00:00 SethZoran y MD: 9055 [facility] [address] [facility], [facility] [address] [place] [address] , Ph. 2016-01-13 2016-02-12 Wound Care nullFlavo [facility] 4572 [id number] Memoria 17:30:00 05:59:00 r Gabriel 07 l [facility] 2016-01-13 2016-02-12 Wound Care nullFlavo [facility] 4572 [id number] Memoria 17:30:00 05:59:00 r Gabriel 07 l [facility] 2016-01-13 2016-02-11 [facility] [id number] 11:30:00 23:59:00 tt, Casarez 2016-01-30 2016-01-30 Joseph Medina V[facility] [place] - [id number] V illage 00:00:00 00:00:00 Zoran Ann y : 9055 [facility] - e [facility], [facility] [address], [place] [address] , Ph. 2015-11-11 2015-12-11 Wound Care nullFlavo [facility] 4572 [id number] Memoria 17:21:00 04:59:00 r Gabriel 06 l [facility] 2015-11-11 2015-12-11 Wound Care nullFlavo [place] [id number] Memoria 17:21:00 04:59:00 r Gabriel 06 l [facility] 2015-11-11 2015-12-10 Outpatient [facility] 006 [id number] 12:21:00 23:59:00 tt, Casarez 2015-09-23 2015-10-23 Wound Care nullFlavo [facility] 4572 [id number] Memoria 16:58:00 04:59:00 r [place] 05 l [facility] 2015-09-23 2015-10-23 [facility] [place] [id number] Memoria 16:58:00 04:59:00 r [place] 05 l [facility] 2015-09-23 2015-10-22 Outpatient [facility] [id number] 11:58:00 23:59:00 tt, [place] 05 2015-10-21 2015-10-22 [facility] 4572 [id number] Memoria 05:00:00 04:59:00 r Gabriel 32 l [facility] 2015-10-21 2015-10-22 Outpatient [place] [id number] Memoria 05:00:00 04:59:00 r [place] 32 l [facility] 2015-10-21 2015-10-21 Outpatient [facility] 590 [id number] 00:00:00 23:59:00 tt, Casarez 2015-10-20 2015-10-20 [facility] - [id number] V illage 00:00:00 00:00:00 Zoran Ann: 9055 [facility], [facility] [address], [place] [address] , Ph. 2015-08-16 2015-09-15 Wound [facility] 4572 [id number] Memoria 16:50:00 04:59:00 r Gabriel 04 l [facility] 2015-08-16 2015-09-15 Wound [facility] 4572 [id number] Mem[facility] 16:50:00 04:59:00 r [place] 04 l [facility] 2015-08-16 2015-09-14 [facility] [id number] 11:50:00 23:59:00 tt, [place] 2015-07-15 2015-08-14 [facility] 4572 [id number] [facility] 19:10:00 04:59:00 r Gabriel 03 l [facility] 2015-07-15 2015-08-14 [facility] 4572 [id number] [facility] 19:10:00 04:59:00 r Gabriel 03 l [facility] 2015-07-15 2015-08-13 [facility] [id number] 14:10:00 23:59:00 tt, [place] 2015-06-13 2015-07-13 [facility] 4572 [id number] [facility] 18:56:00 04:59:00 r Gabriel 02 l [facility] 2015-06-13 2015-07-13 [facility] 4572 [id number] [facility] 18:56:00 04:59:00 r Gabriel 02 l [facility] 2015-06-13 2015-07-12 [facility] 145 [id number] 13:56:00 23:59:00 tt, [place] 2015-04-25 2015-05-25 [facility] 4572 [id number] [facility] 18:57:00 04:59:00 r Gabriel 01 l [facility] 2015-04-25 2015-05-25 [facility] 4572 [id number] [facility] 18:57:00 04:59:00 r Gabriel 01 l [facility] 2015-04-25 2015-05-24 Outpatient [facility] 554 [id number] 12:57:00 23:59:00 tt, [place] 2015-03-17 2015-04-16 [facility] 4572 [id number] [facility] 14:00:00 05:59:00 r [place] 00 l [facility] 2015-03-17 2015-04-16 [facility] 4572 [id number] [facility] 14:00:00 05:59:00 r [place] 00 l [facility] 2015-03-17 2015-04-15 Outpatient JordanaErrollindsay [facility] [id number] 08:00:00 23:59:00 tt, [place] 2015-02-15 2015-03-17 [facility] 4572 [id number] [facility] 17:40:00 05:59:00 r [place] 00 l [facility] [facility] 2015-02-15 2015-03-17 [facility] [id number] Memoria 17:40:00 05:59:00 r [place] 00 l [facility] 2015-02-15 2015-03-16 Outpatient JordanaErrollindsay [facility] [id number] [id number] 11:40:00 23:59:00 tt, [place] 2015-02-22 2015-02-23 EC [facility] [id number] Memoria 23:10:00 01:23:00 Emergency r [place] 01 l [facility] 2015-02-22 2015-02-23 EC [facility] [id number] Memoria 23:10:00 01:23:00 Emergency r [place] 01 l [facility] 2015-02-22 2015-02-22 Outpatient Bradley [facility] [id number] 17:10:00 19:23:00 Jacqueline Kate 2015-02-16 2015-02-19 Inpatient [facility] [id number] Memoria 16:42:00 17:48:00 r [place] 49 l [facility] 2015-02-16 2015-02-19 Inpatient [facility] [id number] Memoria 16:42:00 17:48:00 r [place] 49 l [facility] 2015-02-16 2015-02-19 Outpatient Kyler [facility] [id number] 10:42:00 11:48:00 Michael Burleson 2014-09-30 2014-09-30 ESTABLISHE [facility] 4e1e9 af4-4 Memoria 14:45:00 14:45:00 D PT: Lt r [facility] 7p6-587o-u l [facility] [id number] [place] 13599j 2014-09-30 2014-09-30 ESTABLISHE [facility] 4e1e9 af4-4 Memoria 14:45:00 14:45:00 D PT: Lt r Branch 7g4-439u-r l [facility]iatry [id number] [place] 41013q 2014-09-30 2014-09-30 Outpatient [facility] [id number] eClinic 09:45:00 09:45:00 Branch [facility] Podiatry 2013-07-01 2013-07-01 diabetic [facility] 586313q 7-1 Memoria 19:20:00 19:20:00 shoes r Branch eab-432b-a l Podiatry 69a-dcfcfa Herm [place] 81341n 2013-07-01 2013-07-01 diabetic [facility] [id number] 2-c Memoria 19:20:00 19:20:00 shoes r Branch 835-414f-8 l Podiatry aa4-a489da Herm [place] f62f48 2013-07-01 2013-07-01 diabetic [facility] [id number] 7-1 Memoria 19:20:00 19:20:00 shoes r Branch eab-432b-a l Podiatry 69a-dcfcfa Herm [place] 67588j 2013-07-01 2013-07-01 diabetic [facility] k1q5zs7 2-c Memoria 19:20:00 19:20:00 shoes r Branch 835-414f-8 l Podiatry aa4-a489da Herm [place] f62f48 2013-07-01 2013-07-01 Outpatient [facility] [id number] eClinic 14:20:00 14:20:00 [facility] Podiatry 2013-05-05 2013-05-05 NEW PT: [facility] 6pd0g0x5 -4 Memoria 15:45:00 15:45:00 DIABETIC: r Branch ff1-48be-8 l POSSIBLE Podiatry 504-rmj478 [place] ULCER LT [id number] FT 2013-05-05 2013-05-05 NEW PT: [facility] 7zx2z1p5 -4 Memoria 15:45:00 15:45:00 DIABETIC: r Branch ff1-48be-8 l POSSIBLE Podiatry 504-zzz624 [place] ULCER LT [id number] FT 2013-05-05 2013-05-05 NEW PT: [facility] 4oau6638 -9 Memoria 14:45:00 14:45:00 DIABETIC: r Branch 6a0-0629-8 l POSSIBLE Podiatry 4s8-7z97td [place] ULCER LT 3a5b2b FT 2013-05-05 2013-05-05 NEW PT: [facility] w37j17q2 -4 Memoria 14:45:00 14:45:00 DIABETIC: r Branch 59a-46c7-9 l POSSIBLE Podiatry 16d-80822f [place] ULCER LT 04694u FT 2013-05-05 2013-05-05 NEW PT: [facility] 8wta1663 -9 Memoria 14:45:00 14:45:00 DIABETIC: r Branch 7s7-4454-7 l POSSIBLE Podiatry 1x6-9c84tc [place] ULCER LT 3a5b2b FT 2013-05-05 2013-05-05 NEW PT: [facility] q06r24m9 -4 Memoria 14:45:00 14:45:00 DIABETIC: r Branch 59a-46c7-9 l POSSIBLE Podiatry 16d-06793o [place] 05569t FT 2013-05-05 2013-05-05 [facility] [id number] eClinic 09:45:00 09:45:00 Branch [facility] Podiatry 2013-04-24 2013-04-24 EC [facility] [id number] Memoria 03:15:00 09:14:00 Emergency r [place] [id number] l [address] 2013-04-24 2013-04-24 EC [facility] [id number] Memoria 03:15:00 09:14:00 Emergency r [place] [id number] l [address] 2013-04-23 2013-04-24 Emergency [facility] [id number] Memoria 21:15:00 03:14:[address] Gabriel 2013-04-23 2013-04-24 Outpatient Carmela, [id number]. [id number]. [id number] 21:15:00 03:14:00 Len Sheriff [id number]. [id number] 06 7244-02-20 2013-04-24 Emergency [facility] [id number] Memoria 21:15:00 03:14:00 r [place] 00 [facility] Results Test Description Test Time Test Comments Results Result [facility] e Comments - XR KNEE 1 OR 2 V 2021-11-08 RT 13:46:00 [facility] 1950 Sex: M Patient Name: ADONIS HUMMEL Unit No: [id number] EXAMS: CPT CODE: [id number] XR KNEE 1 OR 2 V RT 12805 IMAGES PROVIDED: 2 FINDINGS: Postoperative changes from right total knee arthoplasty demonstrated without evidence of immediate complication. No acute fracture is visualized. IMPRESSION: Postoperative exam as above. at 1346 Reported and signed by: Francisco Mendoza M.D. CC: Valentina Sherman MD Technologist: WANG VERAS. RT(R) Transcribed D/ (9968) [facility]: ADONIS HUMMEL [address] [facility] PHYS: CIRILO. Valentina Sherman MD : 1950 AGE: 70 SEX: M [place], [place] [address] LOC: Y.520 A PHONE #: [phone] EXAM DATE: 11/07/2021 STATUS: ADM IN FAX #: [phone] RAD #: D/C DT PAGE 1 Signed Report Patient Name: ADONIS HUMMEL Unit No: [id number] EXAMS: CPT CODE: [id number] XR KNEE 1 OR 2 V RT 79898 (Continued) Orig Print D/T: S: 11/08/2021 (1350) [facility] NAME: ADONIS HUMMEL [address] [facility] PHYS: CIRILO.Kathi Valentina Sherman MD : 1950 AGE: 70 SEX: M [place], [place] [address] LOC: Y.520 A PHONE #: [phone] EXAM DATE: 11/07/2021 STATUS: ADM IN FAX #: [phone] RAD #: D/C DT PAGE 2 Signed Report BASIC METABOLIC PANEL 2021-11-08 07:42:00 Test Item Value Reference Range Interpretation Comme nts SODIUM (test code = NA) 136 mmol/L 136-145 N POTASSIUM (test code = K) 4.5 mmol/L 3.5-5.1 N CHLORIDE (test code = CL) 100.0 mmol/L 98-107 N CARBON DIOXIDE (test code = 23.2 mmol/L 21-32 N CO2) GLUCOSE (test code = GLU) 196 mg/dL 70-110 H BLOOD UREA NITROGEN (test code 18 mg/dL 7-18 N = BUN) GLOMERULAR FILTRATION RATE 64.2 >60 U nit of measure: mL/min/1.73 (test code = GFR) [id number] e Range:Healthy Adults >90 mL/m in/1.73 m2 For Chronic Kidney Disease: Stage II Mild Decreas e in GFR 60-90 Stage III Moder ate Decrease in GFR 30-59 St age IV Severe Decrease in GFR 15-29 Stage V Kidney Failure <15 CREATININE (test code = CREAT) 1.33 mg/dL 0.55-1.30 H CALCIUM (test code = CA) 8.7 mg/dL 8.2-10.1 N SPECIMEN COMMENT: POD #1HGB [id number] 06:05:00 Test Item Value Reference Range Interpretation Comments HEMOGLOBIN (test code = HGB) 10.7 g/dL 12-16 L HEMATOCRIT (test code = HCT) 32.9 % 37-47 L SPECIMEN COMMENT: POD #1basic metabolic [id number] 03:36:00 Test Item Value Reference Range Interpretation Comments sodium (test code = sodium) 136 mmol/L 136-145 potassium (test code = 4.5 mmol/L 3.5-5.1 potassium) chloride (test code = chloride) 100.0 mmol/L 98-107 carbon dioxide (test code = 23.2 mmol/L 21-32 carbon dioxide) glucose (test code = glucose) 196 mg/dL 70-110 H blood urea nitrogen (test code = 18 mg/dL 7-18 blood urea nitrogen) glomerular filtration rate (test 64.2 >60 code = glomerular filtration rate) creatinine (test code = 1.33 mg/dL 0.55-1.30 H creatinine) calcium (test code = calcium) 8.7 mg/dL 8.2-10.1 performing lab: (test code = performing lab:) [facility] [id number] 03:36:00 Test Item Value Reference Range Interpretation Comments sodium (test code = sodium) 136 mmol/L 136-145 potassium (test code = 4.5 mmol/L 3.5-5.1 potassium) chloride (test code = chloride) 100.0 mmol/L 98-107 carbon dioxide (test code = 23.2 mmol/L 21-32 carbon dioxide) glucose (test code = glucose) 196 mg/dL 70-110 H blood urea nitrogen (test code = 18 mg/dL 7-18 blood urea nitrogen) glomerular filtration rate (test 64.2 >60 code = glomerular filtration rate) creatinine (test code = 1.33 mg/dL 0.55-1.30 H creatinine) calcium (test code = calcium) 8.7 mg/dL 8.2-10.1 performing lab: (test code = performing lab:) [facility] 00:08:00 Test Item Value Reference Range Interpretation Comments GLUBED (test code = GLUBED) 227 mg/dL 60-125 H [id number] 21:48:00 Test Item Value Reference Range Interpretation Comments GLUBED (test code = GLUBED) 285 mg/dL 60-125 H [id number] 21:34:00 Test Item Value Reference Range Interpretation Comments glubed (test code = glubed) 285 mg/dL 60-125 H performing lab: (test code = performing lab:) [place] [id number] 21:34:00 Test Item Value Reference Range Interpretation Comments glubed (test code = glubed) 285 mg/dL 60-125 H performing lab: (test code = performing lab:) [place] [id number] 13:13:00 Test Item Value Reference Range Interpretation Comments GLUBED (test code = GLUBED) 131 mg/dL 60-125 H [id number] 12:49:00 Test Item Value Reference Range Interpretation Comments glubed (test code = glubed) 131 mg/dL 60-125 H performing lab: (test code = performing lab:) [place] [id number] 12:49:00 Test Item Value Reference Range Interpretation Comments glubed (test code = glubed) 131 mg/dL 60-125 H performing lab: (test code = performing lab:) [facility]HA1C)2021-10-05 22:05:00 Test Item Value Reference Range Interpretation Comments GLYCOSYLATED 5.9 % 4.8-5.9 Any condition t hat shortens HEMOGLOBIN (HA1C) erythocyte survival or (test code = GLYHGB) decreas esmean erythrocyte age (e.g., anna very from acute blood los s,hemolytic anemai) will fa lsely lower HGBA1c resultsr egardless of the method used . HGBA1c results frompat ients with HbSS, HbCC and HbSc must be interpreted wit hcaution given the patho logical processes, incl uding anemia,increase d red cell turnover, trans fusion requirements, t hatadversely impact HGBA1c a s a marker of long-term glycemiccontrol . Alternative for ms of testing such as fructosaminesho uld be considered for these patients.Any co ndition that shortens erytho cyte survival or dec reasesmean erythrocyte age (e.g., recovery from a cute blood loss,hemolytic anemia) will falsely lower H GBA1c resultsregardle ss of the method used. HG BA1c results from patientswi th HbSS, HbCC, and HbSc must be interpreted wit h cautiongiven th e pathological pr ocesses, including anemi a,increased red cell turnov er, transfusion req uirements, thatadversely i mpact HGBA1c as a marker of long-term glycemiccontrol . Alternative for ms of testing such as fructosaminesho uld be considered for these patients.DONE A T: [facility] [address] [facility] [place], [place] [address] GLYCOSYLATED HEMOGLOBIN (HA1C)2021-10-05 22:05:00 Test Item Value Reference Range Interpretation Comments GLYCOSYLATED 5.9 % 4.8-5.9 N Any condition t hat shortens HEMOGLOBIN (HA1C) erythocyte survival or (test code = GLYHGB) decreas esmean erythrocyte age (e.g., anna very from acute blood los s,hemolytic anemia) will fa lsely lower HGBA1c resultsr egardless of the method used . HGBA1c results from merle diamantesingh HbSS, HbCC, and HbSc must be interpreted with cautiongiven th e pathological pr ocesses, including anemi a,increased red cell turnov er, transfusion req uirements, thatadversely i mpact HGBA1c as a marker of long-term glycemiccontrol . Alternative for ms of testing such as fructosaminesho uld be considered for these patients. COMPREHENSIVE METABOLIC [id number] 17:05:00 Test Item Value Reference Range Interpretation Comments SODIUM (test code = 140 mmol/L 136-145 N NA) POTASSIUM (test code = 4.1 mmol/L 3.5-5.1 N K) CHLORIDE (test code = 102.0 mmol/L 98-107 N CL) CARBON DIOXIDE (test 30.1 mmol/L 21-32 N code = CO2) GLUCOSE (test code = 97 mg/dL 70-110 N GLU) BLOOD UREA NITROGEN 9 mg/dL 7-18 N (test code = BUN) GLOMERULAR FILTRATION 78.3 >60 Unit o f measure: RATE (test code = GFR) mL/mi n/1.73 d0Dhakpjpar Range:Healthy Adults >90 mL/min/1.73 m2 For Chronic Kidney Disease: Stage II Mild Decrease i n GFR 60-90 Stage III Moderate Decrea se in GFR 30-59 St age IV Severe Decre ase in GFR 15-29 St age V Kidney Failur e <15 CREATININE (test code 1.12 mg/dL 0.55-1.30 N = CREAT) TOTAL PROTEIN (test 10.2 g/dL 6.4-8.2 H code = PROT) ALBUMIN (test code = 2.9 g/dL 3.4-5.0 L ALB) GLOBULIN (test code = 7.3 g/dL 2.2-4.2 H GLOB) ALBUMIN/GLOBULIN RATIO 0.4 0.7-2.0 L (test code = A/G) CALCIUM (test code = 8.9 mg/dL 8.2-10.1 N CA) BILIRUBIN TOTAL (test 0.50 mg/dL 0.2-1.00 N code = BILT) SGOT/AST (test code = 25.0 U/L 15-37 N AST) SGPT/ALT (test code = 18.0 U/L 12-78 N Please note new ALT) normal range. ALKALINE PHOSPHATASE 62 U/L 46-116 N TOTAL (test code = ALKP) PROTHROMBIN [id number] 17:02:00 Test Item Value Reference Range Interpretation Comments PROTHROMBIN TIME 15.3 secs 9.7-12.5 H Please note new normal PATIENT (test code = range. PTP) INTERNATIONAL NORMAL 1.37 <2.0 RECOMME NDED THERAPEUTIC RATIO (test code = RANGE FOR ORAL INR) ANTICOAGULANTTR EATMENT: CONDITION INRPr ophylaxis of venous throm bosis in 2.0 - 3.0 high- risk medical or surg ical patientsTreatme nt of venous thrombos is 2.0 - 3.0Prevention o f embolism 2.0 - 3.0Prevention o f recurrent embol ism, or 3.0 - 4.5 patie nts with mechanical pros thetic intravascular v morales IS PATIENT ON ANTICOAGULANTS ? NHas Lab been notified if Patient is on Heparin Drip? NOTHROMBOPLASTIN TIME [id number] 17:02:00 Test Item Value Reference Range Interpretation Comments PTT ACTIVATED (test 37.0 secs 26.6-34.6 H Please n ote new code = APTT) normal range. IS PATIENT ON ANTICOAGULANTS ? MTas Lab been notified if Patient is on Heparin Drip? NOCBC W/AUTO [id number] 15:09:00 Test Item Value Reference Range Interpretation Comments WHITE BLOOD CELL (test code = WBC) 9.4 K/mm3 5.7-10.5 N RED BLOOD CELL (test code = RBC) 4.30 M/mm3 4.2-5.4 N HEMOGLOBIN (test code = HGB) 11.2 g/dL 12-16 L HEMATOCRIT (test code = HCT) 33.9 % 37-47 L MEAN CELL VOLUME (test code = MCV) 79 fL 80-98 L MEAN CELL HGB (test code = MCH) 26.0 pg 27-34 L MEAN CELL HGB CONCENTRATION (test 33.0 g/dL 30.8-34.1 N code = MCHC) RED CELL DISTRIBUTION WIDTH (test 15.2 % 11-16 N code = RDW) PLT (test code = PLT) 427 K/mm3 130-400 H MEAN PLATELET VOLUME (test code = 9.4 fL 8.9-12.1 N MPV) NEUTROPHIL % (test code = NT%) 66.7 % 45-70 N LYMPHOCYTE % (test code = LY%) 20.7 % 20-40 N MONOCYTE % (test code = MO%) 7.6 % 3-10 N EOSINOPHIL % (test code = EO%) 4.3 % 1-5 N BASOPHIL % (test code = BA%) 0.5 % 0.0-1.1 N NEUTROPHIL # (test code = NT#) 6.27 K/mm3 2.00-7.50 N LYMPHOCYTE # (test code = LY#) 1.94 K/mm3 1.50-4.00 N MONOCYTE # (test code = MO#) 0.71 K/mm3 0.2-0.8 N EOSINOPHIL # (test code = EO#) 0.40 K/mm3 0.04-0.4 N BASOPHIL # (test code = BA#) 0.05 K/mm3 0.02-0.10 N MANUAL DIFF REQUIRED (test code = NO MANUAL DIFF MDIFF) NUCLEATED RED BLOOD CELL (test 0 % 0-0 N code = NRBC) POCT GLUCOSE (AUTOMATED)2021-06-21 21:22:48 Test Item Value Reference Range Interpretation Comments POCT GLU (test code = 1525450614) 161 mg/dL 70-110 H Lab Interpretation (test code = Abnormal 37308-1) [facility] GLUCOSE (AUTOMATED)2021-06-21 18:10:43 Test Item Value Reference Range Interpretation Comments POCT GLU (test code = 7689527804) 173 mg/dL 70-110 H Lab Interpretation (test code = Abnormal 28457-0) [facility] GLUCOSE (AUTOMATED)2021-06-21 13:28:30 Test Item Value Reference Range Interpretation Comments POCT GLU (test code = 6477878987) 126 mg/dL 70-110 H Lab Interpretation (test code = Abnormal 38930-1) [facility] GLUCOSE (AUTOMATED)2021-06-21 03:08:07 Test Item Value Reference Range Interpretation Comments POCT GLU (test code = 3138426500) 127 mg/dL 70-110 H Lab Interpretation (test code = Abnormal 95261-6) [facility] GLUCOSE (AUTOMATED)2021-06-20 21:12:06 Test Item Value Reference Range Interpretation Comments POCT GLU (test code = 2965774496) 142 mg/dL 70-110 H Lab Interpretation (test code = Abnormal 92749-8) [facility] GLUCOSE (AUTOMATED)2021-06-20 16:30:19 Test Item Value Reference Range Interpretation Comments POCT GLU (test code = 6218424178) 122 mg/dL 70-110 H Lab Interpretation (test code = Abnormal 78671-6) [facility] GLUCOSE (AUTOMATED)2021-06-20 13:27:27 Test Item Value Reference Range Interpretation Comments POCT GLU (test code = 0350744026) 167 mg/dL 70-110 H Lab Interpretation (test code = Abnormal 23064-7) [facility] METABOLIC PANEL (NA, K, CL, CO2, GLUCOSE, BUN, CREATININE, CA)2021-06-20 09:58:38 Test Item Value Reference Range Interpretation Comments NA (test code = 140 mmol/L 135-145 3066025112) K (test code = 3.8 mmol/L 3.5-5.0 2025103166) CL (test code = 102 mmol/L 98-108 9736524985) CO2 TOTAL (test code = 34 mmol/L 23-31 H 6640034872) AGAP (test code = 2-16 4607953283) BUN (test code = 17 mg/dL 7-23 2893666514) GLUCOSE (test code = 133 mg/dL 70-110 H 3415911502) CREATININE (test code = 0.80 mg/dL 0.60-1.25 6223148355) CALCIUM (test code = 8.5 mg/dL 8.6-10.6 L 2354628931) eGFR (test code = mL/min/1.73m2 5486988627) MILO (test code = MILO) Association of Glomerular Filtration Rate (GFR) and Staging of Kidney Disease* + --+ --+ ------+| GFR (mL/min/1.73 m2) ?| With Kidney Damage ?| ?Without Kidney Damage+ --------+ --------+ +| ?>90 ?| ?Stage one ?| ? Normal ?+ ---+ ---+ -------+| ?60-89 ?| ?Stage two ?| ? Decreased GFR ? + --+ --+ ------+| ?30-59 ?| ?Stage three ?| ? Stage three ? + --+ --+ ------+| ?15-29 ?| ?Stage four ? | ? Stage four ?+ ---+ ---+ -------+| ?<15 (or dialysis) ? ?| ?Stage five ? | ? Stage five ?+ ---+ ---+ -------+ *Each stage assumes the associated GFR level has been in effect for at least three months. ?Stages 1 to 5, with or without kidney disease, indicate chronic kidney disease. Notes: Determination of stages one and two (with eGFR >59mL/min/1.73 m2) requires estimation of kidney damage for at least three months as defined by structural or functional abnormalities of the kidney, manifested by either:Pathological abnormalities or Markers of kidney damage (including abnormalities in the composition of the blood or urine or abnormalities in imaging tests). Lab Interpretation Abnormal (test code = 92655-7) [facility] WITH [id number] 09:43:36 Test Item Value Reference Range Interpretation Comments WBC (test code = See_Comment [Automated 6690-2) message] The sy stem which generated this result transmitted reference range : 4.20 - 10.70 10*3/?L. The reference range was not used to interpret this result as normal/abnormal . RBC (test code = See_Comment L [Automated 789-8) message] The sy stem which generated this result transmitted reference range : 4.26 - 5.52 10*6/?L. The reference range was not used to interpret this result as normal/abnormal . HGB (test code = 10.0 g/dL 12.2-16.4 L 718-7) HCT (test code = 32.9 % 38.4-49.3 L 4544-3) MCV (test code = 79.5 fL 81.7-95.6 L 787-2) MCH (test code = 24.2 pg 26.1-32.7 L 785-6) MCHC (test code = 30.4 g/dL 31.2-35.0 L 786-4) RDW-SD (test code = 47.0 fL 38.5-51.6 26837-5) RDW-CV (test code = 16.5 % 12.1-15.4 H 788-0) PLT (test code = See_Comment H [Automated 777-3) message] The sy stem which generated this result transmitted reference range : 150 - 328 10*3/ ?L. The reference r jay was not used to interpret this result as normal/abnormal . MPV (test code = 9.1 fL 9.8-13.0 L 90920-9) NRBC/100 WBC (test See_Comment [Automat ed code = 0230378239) message] The system which generated this result transmitted reference range : 0.0 - 10.0 /100 WBCs. The refer ence range was not u sed to interpret th is result as normal/abnormal . NRBC x10^3 (test code <0.01 See_Comment [Auto mated = 7758586307) message] The s ystem which generated this result transmitted reference range : 10*3/?L. The reference range was not used to interpret this result as normal/abnormal . GRAN MAT (NEUT) % 57.6 % (test code = 770-8) IMM GRAN % (test code 0.10 % = 7155958193) LYMPH % (test code = 24.4 % 736-9) MONO % (test code = 11.3 % 5905-5) EOS % (test code = 6.1 % 713-8) BASO % (test code = 0.5 % 706-2) GRAN MAT x10^3(ANC) 4.27 10*3/uL 1.99-6.95 (test code = 3796375952) IMM GRAN x10^3 (test <0.03 0.00-0.06 code = 3651915485) LYMPH x10^3 (test code 1.81 10*3/uL 1.09-3.23 = 731-0) MONO x10^3 (test code 0.84 10*3/uL 0.36-1.02 = 742-7) EOS x10^3 (test code = 0.45 10*3/uL 0.06-0.53 711-2) BASO x10^3 (test code 0.04 10*3/uL 0.01-0.09 = 704-7) Lab Interpretation Abnormal (test code = 98465-8) [facility] GLUCOSE (AUTOMATED)2021-06-20 02:43:28 Test Item Value Reference Range Interpretation Comments POCT GLU (test code = 6473161890) 129 mg/dL 70-110 H Lab Interpretation (test code = Abnormal 65951-4) [facility] GLUCOSE (AUTOMATED)2021-06-19 21:47:17 Test Item Value Reference Range Interpretation Comments POCT GLU (test code = 3243865253) 252 mg/dL 70-110 H Lab Interpretation (test code = Abnormal 50281-2) [facility] GLUCOSE (AUTOMATED)2021-06-19 21:47:17 Test Item Value Reference Range Interpretation Comments POCT GLU (test code = 1793554218) 252 mg/dL 70-110 H Lab Interpretation (test code = Abnormal 38112-4) [facility] Please draw at 1430 2021-06-19 20:48:57 Test Item Value Reference Range Interpretation Comments VANCO TROUGH (test code 8.0 ug/mL 10.0-20.0 L = 8961818075) MILO (test code = MILO) Toxic Range: ?>20 ug/mL 15-20 ug/mL is recommended for severe infection or when Vancomycin KIERAN is greater than or equal to 2. Lab Interpretation (test Abnormal code = 59573-0) [facility] - Please draw at 1430 2021-06-19 20:48:57 Test Item Value Reference Range Interpretation Comments VANCO TROUGH (test code 8.0 ug/mL 10.0-20.0 L = 3366767366) MILO (test code = MILO) Toxic Range: ?>20 ug/mL 15-20 ug/mL is recommended for severe infection or when Vancomycin KIERAN is greater than or equal to 2. Lab Interpretation (test Abnormal code = 70584-6) [facility] GLUCOSE (AUTOMATED)2021-06-19 16:53:39 Test Item Value Reference Range Interpretation Comments POCT GLU (test code = 5863684008) 145 mg/dL 70-110 H Lab Interpretation (test code = Abnormal 50105-6) [facility] GLUCOSE (AUTOMATED)2021-06-19 16:53:39 Test Item Value Reference Range Interpretation Comments POCT GLU (test code = 8024032002) 145 mg/dL 70-110 H Lab Interpretation (test code = Abnormal 03099-5) [facility] GLUCOSE (AUTOMATED)2021-06-19 13:09:01 Test Item Value Reference Range Interpretation Comments POCT GLU (test code = 0504506673) 138 mg/dL 70-110 H Lab Interpretation (test code = Abnormal 00828-4) [facility] GLUCOSE (AUTOMATED)2021-06-19 13:09:01 Test Item Value Reference Range Interpretation Comments POCT GLU (test code = 3617120591) 138 mg/dL 70-110 H Lab Interpretation (test code = Abnormal 45424-4) [facility] Met[facility] (NA, K, CL, CO2, GLUCOSE, BUN, CREATININE, CA)2021-06-19 10:00:53 Test Item Value Reference Range Interpretation Comments NA (test code = 139 mmol/L 135-145 7430425966) K (test code = 4.0 mmol/L 3.5-5.0 Slight 6090729389) hemolysis CL (test code = 100 mmol/L 98-108 5645890514) CO2 TOTAL (test code 31 mmol/L 23-31 = 0310380301) AGAP (test code = 2-16 1958944505) BUN (test code = 15 mg/dL 7-23 Slight 8396030793) hemolysis GLUCOSE (test code = 166 mg/dL 70-110 H 2003297469) CREATININE (test code 0.72 mg/dL 0.60-1.25 = 4278207139) CALCIUM (test code = 8.3 mg/dL 8.6-10.6 L [id number]) eGFR (test code = mL/min/1.73m2 3413803236) MILO (test code = MILO) Association of Glomerular Filtration Rate (GFR) and Staging of Kidney Disease* + -----+ --------+ +| GFR (mL/min/1.73 m2) ?| With Kidney Damage ?| ?Without Kidney Damage+ +------- +---- --+| ?>90 ?| ?Stage one ?| ? Normal ?+ ------+ ---------+--------- +| ?60-89 ?| ?Stage two ?| ? Decreased GFR ? + -----+ --------+ +| ?30-59 ?| ?Stage three ?| ? Stage three ? + -----+ --------+ +| ?15-29 ?| ?Stage four ? | ? Stage four ?+ ------+ ---------+--------- +| ?<15 (or dialysis) ? ?| ?Stage five ? | ? Stage five ?+ ------+ ---------+--------- + *Each stage assumes the associated GFR level has been in effect for at least three months. ?Stages 1 to 5, with or without kidney disease, indicate chronic kidney disease. Notes: Determination of stages one and two (with eGFR >59mL/min/1.73 m2) requires estimation of kidney damage for at least three months as defined by structural or functional abnormalities of the kidney, manifested by either:Pathological abnormalities or Markers of kidney damage (including abnormalities in the composition of the blood or urine or abnormalities in imaging tests). Lab Interpretation Abnormal (test code = 03144-2) [facility] Metabolic Panel (NA, K, CL, CO2, GLUCOSE, BUN, CREATININE, CA)2021-06-19 10:00:53 Test Item Value Reference Range Interpretation Comments NA (test code = 139 mmol/L 135-145 4309020604) K (test code = 4.0 mmol/L 3.5-5.0 Slight 4752772103) hemolysis CL (test code = 100 mmol/L 98-108 5821983420) CO2 TOTAL (test code 31 mmol/L 23-31 = 6709590566) AGAP (test code = 2-16 1002437702) BUN (test code = 15 mg/dL 7-23 Slight 2218301648) hemolysis GLUCOSE (test code = 166 mg/dL 70-110 H 3637211720) CREATININE (test code 0.72 mg/dL 0.60-1.25 = 1790024608) CALCIUM (test code = 8.3 mg/dL 8.6-10.6 L 8600615017) eGFR (test code = mL/min/1.73m2 2374161970) MILO (test code = MILO) Association of Glomerular Filtration Rate (GFR) and Staging of Kidney Disease* + -----+ --------+ +| GFR (mL/min/1.73 m2) ?| With Kidney Damage ?| ?Without Kidney Damage+ +------- +---- --+| ?>90 ?| ?Stage one ?| ? Normal ?+ ------+ ---------+--------- +| ?60-89 ?| ?Stage two ?| ? Decreased GFR ? + -----+ --------+ +| ?30-59 ?| ?Stage three ?| ? Stage three ? + -----+ --------+ +| ?15-29 ?| ?Stage four ? | ? Stage four ?+ ------+ ---------+--------- +| ?<15 (or dialysis) ? ?| ?Stage five ? | ? Stage five ?+ ------+ ---------+--------- + *Each stage assumes the associated GFR level has been in effect for at least three months. ?Stages 1 to 5, with or without kidney disease, indicate chronic kidney disease. Notes: Determination of stages one and two (with eGFR >59mL/min/1.73 m2) requires estimation of kidney damage for at least three months as defined by structural or functional abnormalities of the kidney, manifested by either:Pathological abnormalities or Markers of kidney damage (including abnormalities in the composition of the blood or urine or abnormalities in imaging tests). Lab Interpretation Abnormal (test code = 33305-9) [facility] [id number] 09:51:10 Test Item Value Reference Range Interpretation Comments WBC (test code = See_Comment [Automated 6690-2) message] The sy stem which generated this result transmitted reference range : 4.20 - 10.70 10*3/?L. The reference range was not used to interpret this result as normal/abnormal . RBC (test code = See_Comment L [Automated 789-8) message] The sy stem which generated this result transmitted reference range : 4.26 - 5.52 10*6/?L. The reference range was not used to interpret this result as normal/abnormal . HGB (test code = 10.2 g/dL 12.2-16.4 L 718-7) HCT (test code = 33.2 % 38.4-49.3 L 4544-3) MCV (test code = 78.5 fL 81.7-95.6 L 787-2) MCH (test code = 24.1 pg 26.1-32.7 L 785-6) MCHC (test code = 30.7 g/dL 31.2-35.0 L 786-4) RDW-SD (test code = 46.8 fL 38.5-51.6 62726-0) RDW-CV (test code = 16.4 % 12.1-15.4 H 788-0) PLT (test code = See_Comment H [Automated 777-3) message] The sy stem which generated this result transmitted reference range : 150 - 328 10*3/ ?L. The reference r jay was not used to interpret this result as normal/abnormal . MPV (test code = 9.4 fL 9.8-13.0 L 74736-0) NRBC/100 WBC (test See_Comment [Automat ed code = 6587205212) message] The system which generated this result transmitted reference range : 0.0 - 10.0 /100 WBCs. The refer ence range was not u sed to interpret th is result as normal/abnormal . NRBC x10^3 (test code <0.01 See_Comment [Auto mated = 2254731889) message] The s ystem which generated this result transmitted reference range : 10*3/?L. The reference range was not used to interpret this result as normal/abnormal . GRAN MAT (NEUT) % 64.2 % (test code = 770-8) IMM GRAN % (test code 0.60 % = 9640992659) LYMPH % (test code = 21.1 % 736-9) MONO % (test code = 11.1 % 5905-5) EOS % (test code = 2.5 % 713-8) BASO % (test code = 0.5 % 706-2) GRAN MAT x10^3(ANC) 5.32 10*3/uL 1.99-6.95 (test code = 1832225147) IMM GRAN x10^3 (test 0.05 10*3/uL 0.00-0.06 code = 1472195694) LYMPH x10^3 (test code 1.75 10*3/uL 1.09-3.23 = 731-0) MONO x10^3 (test code 0.92 10*3/uL 0.36-1.02 = 742-7) EOS x10^3 (test code = 0.21 10*3/uL 0.06-0.53 711-2) BASO x10^3 (test code 0.04 10*3/uL 0.01-0.09 = 704-7) Lab Interpretation Abnormal (test code = 47734-6) [facility] [id number] 09:51:10 Test Item Value Reference Range Interpretation Comments WBC (test code = See_Comment [Automated 2490-2) message] The sy stem which generated this result transmitted reference range : 4.20 - 10.70 10*3/?L. The reference range was not used to interpret this result as normal/abnormal . RBC (test code = See_Comment L [Automated 639-8) message] The sy stem which generated this result transmitted reference range : 4.26 - 5.52 10*6/?L. The reference range was not used to interpret this result as normal/abnormal . HGB (test code = 10.2 g/dL 12.2-16.4 L 718-7) HCT (test code = 33.2 % 38.4-49.3 L 4544-3) MCV (test code = 78.5 fL 81.7-95.6 L 787-2) MCH (test code = 24.1 pg 26.1-32.7 L 785-6) MCHC (test code = 30.7 g/dL 31.2-35.0 L 786-4) RDW-SD (test code = 46.8 fL 38.5-51.6 21323-6) RDW-CV (test code = 16.4 % 12.1-15.4 H 788-0) PLT (test code = See_Comment H [Automated 777-3) message] The sy stem which generated this result transmitted reference range : 150 - 328 10*3/ ?L. The reference r jay was not used to interpret this result as normal/abnormal . MPV (test code = 9.4 fL 9.8-13.0 L 22410-6) NRBC/100 WBC (test See_Comment [Automat ed code = 2432279447) message] The system which generated this result transmitted reference range : 0.0 - 10.0 /100 WBCs. The refer ence range was not u sed to interpret th is result as normal/abnormal . NRBC x10^3 (test code <0.01 See_Comment [Auto mated = 8049658480) message] The s ystem which generated this result transmitted reference range : 10*3/?L. The reference range was not used to interpret this result as normal/abnormal . GRAN MAT (NEUT) % 64.2 % (test code = 770-8) IMM GRAN % (test code 0.60 % = 1909894534) LYMPH % (test code = 21.1 % 736-9) MONO % (test code = 11.1 % 5905-5) EOS % (test code = 2.5 % 713-8) BASO % (test code = 0.5 % 706-2) GRAN MAT x10^3(ANC) 5.32 10*3/uL 1.99-6.95 (test code = 7374051940) IMM GRAN x10^3 (test 0.05 10*3/uL 0.00-0.06 code = 7507170577) LYMPH x10^3 (test code 1.75 10*3/uL 1.09-3.23 = 731-0) MONO x10^3 (test code 0.92 10*3/uL 0.36-1.02 = 742-7) EOS x10^3 (test code = 0.21 10*3/uL 0.06-0.53 711-2) BASO x10^3 (test code 0.04 10*3/uL 0.01-0.09 = 704-7) Lab Interpretation Abnormal (test code = 35479-1) [facility] GLUCOSE (AUTOMATED)2021-06-19 00:57:14 Test Item Value Reference Range Interpretation Comments POCT GLU (test code = 8799938100) 181 mg/dL 70-110 H Lab Interpretation (test code = Abnormal 42311-0) [facility] GLUCOSE (AUTOMATED)2021-06-19 00:57:14 Test Item Value Reference Range Interpretation Comments POCT GLU (test code = 3427427760) 181 mg/dL 70-110 H Lab Interpretation (test code = Abnormal 19485-4) [facility] FLUID MANUAL [id number] 23:14:46 Test Item Value Reference Range Interpretation Comments BF SEGS% (test code = 97838-9) 89 % 0-25 H BF LYMPHS% (test code = 45203-7) 8 % BF MACROPHAGE% (test code = 36934-9) 3 % BF #CELLS CNTD (test code = cells/uL 6933203445) Lab Interpretation (test code = Abnormal 97977-1) [facility] FLUID MANUAL [id number] 23:14:46 Test Item Value Reference Range Interpretation Comments BF SEGS% (test code = 74657-6) 89 % 0-25 H BF LYMPHS% (test code = 35143-9) 8 % BF MACROPHAGE% (test code = 72715-9) 3 % BF #CELLS CNTD (test code = cells/uL 0291147190) Lab Interpretation (test code = Abnormal 47734-8) [facility] FLUID DIRECT [id number] 23:14:16 Test Item Value Reference Range Interpretation Comments BF COLOR (test code = Bloody 1888612245) TURBIDITY (test code = Turbid 5356511280) BF WBC Count (test code See_Comment [Au tomated message] The = 7914092675) system which g enerated this result tra nsmitted reference range : 0 - 150 /?L. The refere nce range was not used to interpret this result as normal/abnormal . BF RBC Count (test code See_Comment [Au tomated message] The = 4762938027) system which g enerated this result tra nsmitted reference range : /?L. The reference r jay was not used to int erpret this result as normal/abnormal . [facility] [id number] 23:14:16 Test Item Value Reference Range Interpretation Comments BF COLOR (test code = Bloody 0923173562) TURBIDITY (test code = Turbid 3768236358) BF WBC Count (test code See_Comment [Au tomated message] The = 6014655005) system which g enerated this result tra nsmitted reference range : 0 - 150 /?L. The refere nce range was not used to interpret this result as normal/abnormal . BF RBC Count (test code See_Comment [Au tomated message] The = 8292515891) system which g enerated this result tra nsmitted reference range : /?L. The reference r jay was not used to int erpret this result as normal/abnormal . [facility] GLUCOSE (AUTOMATED)2021-06-18 22:29:05 Test Item Value Reference Range Interpretation Comments POCT GLU (test code = 1320795247) 98 mg/dL 70-110 Lab Interpretation (test code = Normal 84621-4) [facility] GLUCOSE (AUTOMATED)2021-06-18 22:29:05 Test Item Value Reference Range Interpretation Comments POCT GLU (test code = 6584011768) 98 mg/dL 70-110 Lab Interpretation (test code = Normal 37843-4) [facility] GLUCOSE (AUTOMATED)2021-06-18 17:39:04 Test Item Value Reference Range Interpretation Comments POCT GLU (test code = 7527264336) 88 mg/dL 70-110 Lab Interpretation (test code = Normal 61448-4) [facility] GLUCOSE (AUTOMATED)2021-06-18 17:39:04 Test Item Value Reference Range Interpretation Comments POCT GLU (test code = 9562078679) 88 mg/dL 70-110 Lab Interpretation (test code = Normal 71083-0) [facility] GLUCOSE (AUTOMATED)2021-06-18 12:59:25 Test Item Value Reference Range Interpretation Comments POCT GLU (test code = 3846129820) 85 mg/dL 70-110 Lab Interpretation (test code = Normal 10234-4) [facility] GLUCOSE (AUTOMATED)2021-06-18 12:59:25 Test Item Value Reference Range Interpretation Comments POCT GLU (test code = 8467278843) 85 mg/dL 70-110 Lab Interpretation (test code = Normal 73708-9) [facility] GLUCOSE (AUTOMATED)2021-06-18 06:45:29 Test Item Value Reference Range Interpretation Comments POCT GLU (test code = 3991966826) 120 mg/dL 70-110 H Lab Interpretation (test code = Abnormal 92968-1) [facility] GLUCOSE (AUTOMATED)2021-06-18 06:45:29 Test Item Value Reference Range Interpretation Comments POCT GLU (test code = 2912408911) 120 mg/dL 70-110 H Lab Interpretation (test code = Abnormal 17292-2) [id number] 06:09:58 Test Item Value Reference Range Interpretation Comments URIC ACID (test code = 1005043375) 6.4 mg/dL 3.6-8.0 Lab Interpretation (test code = Normal 85214-8) [facility] [id number] 06:09:58 Test Item Value Reference Range Interpretation Comments URIC ACID (test code = 0161305913) 6.4 mg/dL 3.6-8.0 Lab Interpretation (test code = Normal 90516-4) [facility]RE[facility] [id number] 05:01:18 Test Item Value Reference Range Interpretation Comments CRP (test code = 8647502040) 6.7 mg/dL <1.0 H Lab Interpretation (test code = Abnormal 08886-2) [facility]RE[facility] [id number] 05:01:18 Test Item Value Reference Range Interpretation Comments CRP (test code = 6204933960) 6.7 mg/dL <1.0 H Lab Interpretation (test code = Abnormal 93351-8) [facility] METABOLIC PANEL (NA, K, CL, CO2, GLUCOSE, BUN, CREATININE, CA)2021-06-18 04:12:16 Test Item Value Reference Range Interpretation Comments NA (test code = 138 mmol/L 135-145 4924374948) K (test code = 4.0 mmol/L 3.5-5.0 7589956024) CL (test code = 104 mmol/L 98-108 1574784167) CO2 TOTAL (test code = 28 mmol/L 23-31 5800767768) AGAP (test code = 2-16 3774652254) BUN (test code = 15 mg/dL 7-23 0200030536) GLUCOSE (test code = 185 mg/dL 70-110 H 8433632827) CREATININE (test code = 0.91 mg/dL 0.60-1.25 8368548034) CALCIUM (test code = 8.0 mg/dL 8.6-10.6 L 4691192131) eGFR (test code = mL/min/1.73m2 3515677847) MILO (test code = MILO) Association of Glomerular Filtration Rate (GFR) and Staging of Kidney Disease* + --+ --+ ------+| GFR (mL/min/1.73 m2) ?| With Kidney Damage ?| ?Without Kidney Damage+ --------+ --------+ +| ?>90 ?| ?Stage one ?| ? Normal ?+ ---+ ---+ -------+| ?60-89 ?| ?Stage two ?| ? Decreased GFR ? + --+ --+ ------+| ?30-59 ?| ?Stage three ?| ? Stage three ? + --+ --+ ------+| ?15-29 ?| ?Stage four ? | ? Stage four ?+ ---+ ---+ -------+| ?<15 (or dialysis) ? ?| ?Stage five ? | ? Stage five ?+ ---+ ---+ -------+ *Each stage assumes the associated GFR level has been in effect for at least three months. ?Stages 1 to 5, with or without kidney disease, indicate chronic kidney disease. Notes: Determination of stages one and two (with eGFR >59mL/min/1.73 m2) requires estimation of kidney damage for at least three months as defined by structural or functional abnormalities of the kidney, manifested by either:Pathological abnormalities or Markers of kidney damage (including abnormalities in the composition of the blood or urine or abnormalities in imaging tests). Lab Interpretation Abnormal (test code = 23589-9) [facility] METABOLIC PANEL (NA, K, CL, CO2, GLUCOSE, BUN, CREATININE, CA)2021-06-18 04:12:16 Test Item Value Reference Range Interpretation Comments NA (test code = 138 mmol/L 135-145 7874590804) K (test code = 4.0 mmol/L 3.5-5.0 2534583463) CL (test code = 104 mmol/L 98-108 1236397746) CO2 TOTAL (test code = 28 mmol/L 23-31 9323650008) AGAP (test code = 2-16 7192711360) BUN (test code = 15 mg/dL 7-23 2888175278) GLUCOSE (test code = 185 mg/dL 70-110 H 7741194212) CREATININE (test code = 0.91 mg/dL 0.60-1.25 4931469989) CALCIUM (test code = 8.0 mg/dL 8.6-10.6 L 0401841485) eGFR (test code = mL/min/1.73m2 4490945525) MILO (test code = MILO) Association of Glomerular Filtration Rate (GFR) and Staging of Kidney Disease* + --+ --+ ------+| GFR (mL/min/1.73 m2) ?| With Kidney Damage ?| ?Without Kidney Damage+ --------+ --------+ +| ?>90 ?| ?Stage one ?| ? Normal ?+ ---+ ---+ -------+| ?60-89 ?| ?Stage two ?| ? Decreased GFR ? + --+ --+ ------+| ?30-59 ?| ?Stage three ?| ? Stage three ? + --+ --+ ------+| ?15-29 ?| ?Stage four ? | ? Stage four ?+ ---+ ---+ -------+| ?<15 (or dialysis) ? ?| ?Stage five ? | ? Stage five ?+ ---+ ---+ -------+ *Each stage assumes the associated GFR level has been in effect for at least three months. ?Stages 1 to 5, with or without kidney disease, indicate chronic kidney disease. Notes: Determination of stages one and two (with eGFR >59mL/min/1.73 m2) requires estimation of kidney damage for at least three months as defined by structural or functional abnormalities of the kidney, manifested by either:Pathological abnormalities or Markers of kidney damage (including abnormalities in the composition of the blood or urine or abnormalities in imaging tests). Lab Interpretation Abnormal (test code = 82537-6) [facility] [id number] 04:04:30 Test Item Value Reference Range Interpretation Comments ESR (test code = See_Comment H [Automated message] 0084905337) The system [employer] generated this result transmitted ref erence range: 0 - 15 m m/HR. The reference r jay was not used to interpret this result as normal/abnor mal. Lab Interpretation (test Abnormal code = 01542-4) [facility] [id number] 04:04:30 Test Item Value Reference Range Interpretation Comments ESR (test code = See_Comment H [Automated message] 4094010538) The system [employer] generated this result transmitted ref erence range: 0 - 15 m m/HR. The reference r jay was not used to interpret this result as normal/abnor mal. Lab Interpretation (test Abnormal code = 13159-6) [facility] [id number] 03:59:38 Test Item Value Reference Range Interpretation Comments WBC (test code = See_Comment [Automated 6690-2) message] The sy stem which generated this result transmitted reference range : 4.20 - 10.70 10*3/?L. The reference range was not used to interpret this result as normal/abnormal . RBC (test code = See_Comment L [Automated 789-8) message] The sy stem which generated this result transmitted reference range : 4.26 - 5.52 10*6/?L. The reference range was not used to interpret this result as normal/abnormal . HGB (test code = 9.3 g/dL 12.2-16.4 L 718-7) HCT (test code = 30.1 % 38.4-49.3 L 4544-3) MCV (test code = 79.4 fL 81.7-95.6 L 787-2) MCH (test code = 24.5 pg 26.1-32.7 L 785-6) MCHC (test code = 30.9 g/dL 31.2-35.0 L 786-4) RDW-SD (test code = 46.5 fL 38.5-51.6 15380-1) RDW-CV (test code = 16.2 % 12.1-15.4 H 788-0) PLT (test code = See_Comment H [Automated 777-3) message] The sy stem which generated this result transmitted reference range : 150 - 328 10*3/ ?L. The reference r jay was not used to interpret this result as normal/abnormal . MPV (test code = 9.2 fL 9.8-13.0 L 54657-8) NRBC/100 WBC (test See_Comment [Automat ed code = 5798692669) message] The system which generated this result transmitted reference range : 0.0 - 10.0 /100 WBCs. The refer ence range was not u sed to interpret th is result as normal/abnormal . NRBC x10^3 (test code <0.01 See_Comment [Auto mated = 8386409585) message] The s ystem which generated this result transmitted reference range : 10*3/?L. The reference range was not used to interpret this result as normal/abnormal . GRAN MAT (NEUT) % 60.9 % (test code = 770-8) IMM GRAN % (test code 0.20 % = 2202060441) LYMPH % (test code = 21.7 % 736-9) MONO % (test code = 11.2 % 5905-5) EOS % (test code = 5.4 % 713-8) BASO % (test code = 0.6 % 706-2) GRAN MAT x10^3(ANC) 5.32 10*3/uL 1.99-6.95 (test code = 7411074308) IMM GRAN x10^3 (test <0.03 0.00-0.06 code = 9378802605) LYMPH x10^3 (test code 1.90 10*3/uL 1.09-3.23 = 731-0) MONO x10^3 (test code 0.98 10*3/uL 0.36-1.02 = 742-7) EOS x10^3 (test code = 0.47 10*3/uL 0.06-0.53 711-2) BASO x10^3 (test code 0.05 10*3/uL 0.01-0.09 = 704-7) Lab Interpretation Abnormal (test code = 67140-4) [facility] [id number] 03:59:38 Test Item Value Reference Range Interpretation Comments WBC (test code = See_Comment [Automated 6690-2) message] The sy stem which generated this result transmitted reference range : 4.20 - 10.70 10*3/?L. The reference range was not used to interpret this result as normal/abnormal . RBC (test code = See_Comment L [Automated 789-8) message] The sy stem which generated this result transmitted reference range : 4.26 - 5.52 10*6/?L. The reference range was not used to interpret this result as normal/abnormal . HGB (test code = 9.3 g/dL 12.2-16.4 L 718-7) HCT (test code = 30.1 % 38.4-49.3 L 4544-3) MCV (test code = 79.4 fL 81.7-95.6 L 787-2) MCH (test code = 24.5 pg 26.1-32.7 L 785-6) MCHC (test code = 30.9 g/dL 31.2-35.0 L 786-4) RDW-SD (test code = 46.5 fL 38.5-51.6 53811-0) RDW-CV (test code = 16.2 % 12.1-15.4 H 788-0) PLT (test code = See_Comment H [Automated 777-3) message] The sy stem which generated this result transmitted reference range : 150 - 328 10*3/ ?L. The reference r jay was not used to interpret this result as normal/abnormal . MPV (test code = 9.2 fL 9.8-13.0 L 88951-9) NRBC/100 WBC (test See_Comment [Automat ed code = 2753656638) message] The system which generated this result transmitted reference range : 0.0 - 10.0 /100 WBCs. The refer ence range was not u sed to interpret th is result as normal/abnormal . NRBC x10^3 (test code <0.01 See_Comment [Auto mated = 4680656678) message] The s ystem which generated this result transmitted reference range : 10*3/?L. The reference range was not used to interpret this result as normal/abnormal . GRAN MAT (NEUT) % 60.9 % (test code = 770-8) IMM GRAN % (test code 0.20 % = 2719260732) LYMPH % (test code = 21.7 % 736-9) MONO % (test code = 11.2 % 5905-5) EOS % (test code = 5.4 % 713-8) BASO % (test code = 0.6 % 706-2) GRAN MAT x10^3(ANC) 5.32 10*3/uL 1.99-6.95 (test code = 3084249942) IMM GRAN x10^3 (test <0.03 0.00-0.06 code = 5036220500) LYMPH x10^3 (test code 1.90 10*3/uL 1.09-3.23 = 731-0) MONO x10^3 (test code 0.98 10*3/uL 0.36-1.02 = 742-7) EOS x10^3 (test code = 0.47 10*3/uL 0.06-0.53 711-2) BASO x10^3 (test code 0.05 10*3/uL 0.01-0.09 = 704-7) Lab Interpretation Abnormal (test code = 86553-9) [facility] 2021-05-26 18:07:01 Test Item Value Reference Range Interpretation Comments Misc fluid type (test Synovial code = 61091-0) Color, fluid (test Red code = 6824-7) Appearance, fluid Cloudy A (test code = 9335-1) RBC, fluid (test code SEE COMMENT See_Comment Many R BCs = 92447-7) seenUnable to quantitate due to fibrinous speci men Footnote------- -- [Automated message] The system which generated this result transmit cesar reference range : /CMM. The reference range was not used to interpret this result as normal/abnormal . Nucleated cells, SEE COMMENT See_Comment Many WBCs fluid ([place] = [place] [address]-2) quantitate due to fibrinous specimenFootnot e-- ------- [Automa cesar message] The system which generated this result transmit cesar reference range : /CMM. The reference range was not used to interpret this result as normal/abnormal . Fluid mononuclear Diff to follow cell (test code = 1407) Neutrophils, fluid 85 % (test code = 07430-7) Lymphocytes, fluid 10 % (test code = 49789-1) Eosinophils, fluid 1 % (test code = 23918-0) Macrophages, fluid 5 % Synovial Fluid: (test code = 76255-1) WBC 0- 150/mm3 RBC 0-1/mm3 Diferential: Le ss than 25% Neutrophils. Lymphocytes and monocytes/histo cyt es predominatePeri car dial, Peritonea l andPleural Flui d: WBC <500/mm3 RB C <100/mm3 Diferential: Le ss than 25% Neutrophils. Lymphocytes, macrophages and mesothelial romina l predominate Lab Interpretation Abnormal (test code = 03570-5) [facility] [id number] 03:44:00 Test Item Value Reference Range Interpretation Comments Cholesterol, total 90 mg/dL See_Comment [Automat ed (test code = 2093-3) message ] The system which generated this result transmitted reference range : <=200. The reference range was not used to interpret this result as normal/abnormal . HDL cholesterol 41 mg/dL See_Comment [Automated (test code = 2085-9) message ] The system which generated this result transmitted reference range : > OR = 40. The reference range was not used to interpret this result as normal/abnormal . Triglycerides (test 53 mg/dL See_Comment [Automa cesar code = 2571-8) message] The system which generated this result transmitted reference range : <=150. The reference range was not used to interpret this result as normal/abnormal . LDL cholesterol mg/dL (calc) Reference ra nge: calculated (test <100 Desira ble code = 55451-0) range <100 m g/dL for primary prevention; <70 mg/dL for patients with C HD or diabetic patients with > or = 2 CHD risk factors. LDL-C is now calculated using the Lydia calculation, which is a validated novel method providin g better accuracy than the Friedewald equation in the estimation of LDL-C. Robb S S et al. KAROLINA. 2013;310(19): 8797-4215 (http://educati on .[employer]books[employer] .com/faq/RLL161 ) Cholesterol/HDL See_Comment [Automated ratio (test code = message] The 9830-1) system which generated this result transmitted reference range : <5.0 (calc). Th e reference range was not used to interpret this result as normal/abnormal . Non-HDL cholesterol See_Comment For deedee ents with (test code = diabetes plus 1 90897-8) major ASCVD ris k factor, treatin g to a non-HDL-C goal of <100 mg/dL (LDL-C of <70 mg/dL) is considered a therapeutic option. [Automated message] The system which generated this result transmitted reference range : <130 mg/dL (calc). The reference range was not used to interpret this result as normal/abnormal . MILO (test code = FASTING:YES MILO) FASTING: YES RAC (test code = Performing RAC) Organization Information: Site ID: RGA Name: [facility] Address: [address] [place], [place] [address] Director: Arley Agudelo [facility] Children[facility]em[facility] [id number] 03:44:00 Test Item Value Reference Range Interpretation Comments Hemoglobin A1C See_Comment For the purpo se of (test code = screening for t he 4548-4) presence ofdiab etes: <5.7% Consisten t with the absence of diabetes5.7-6.4 % Consistent with increased risk for diabetes (prediabetes)> or =6.5% Consisten t with diabetes This a ssay result is consi stent with a decrease d riskof diabetes . Currently, no consensus exist s regarding use ofhemoglobin A1 c for diagnosis of di abetes in children. According to [place] er[place] Diabetes Associ ation (ADA)guidelines , hemoglobin A1c <7.0% represents optimalcontrol in non- di abetic patients. Differentmetric s may apply to specif ic patient populat ions. Standards of Me dical Care in Diabetes(ADA). [Automated mess age] The system Simple[employer] generated this result transmitted ref erence range: <5.7 % o f total Hgb. The reference range was not used to int erpret this result as normal/abnormal . MILO (test code = FASTING:YES MILO) FASTING: YES RAC (test code = Performing RAC) Organization Information: Site ID: RGA Name: [facility] Address: [address] [place] [address] Director: Arley Agudelo [facility] ChildrenMicro[facility]in / creatinine urine [id number] 03:44:00 Test Item Value Reference Interpretation Comments Range Creatinine, urine 86 mg/dL 20-320 (mg/dL) (test code = 2161-8) Microalbumin, urine 3.3 mg/dL See Note: Referenc e Range: (test code = Reference Range Not 02095-7) established Microalbumin/creati See_Comment H The ADA defines nine ratio (test abnormaliti es in code = 9318-7) albuminexcret ion as follows: Albumi kimberlyn Category Result (mcg/mg creatin ine) Normal to Mildl y increased <30Moderately increased 30-29 9 Severely increa sed > OR = 300 The AD A recommends that at least two of threespecimens collected withi n a 3-6 month perio d beabnormal befo re considering a patient to bewi thin a diagnostic category. [Auto mated message] The sy stem which generated this result transmit cesar reference range : <30 mcg/mg creat. T he reference range was not used to interpret this result as normal/abnormal . MILO (test code = FASTING:YES MILO) FASTING: YES RAC (test code = Performing RAC) Organization Information: Site ID: RGA Name: [facility] Address: [address] [place] [address] Director: Arley Agudelo Lab Interpretation Abnormal (test code = 04617-6) [facility] ChildrenPS[facility], total with reflex to [id number] 03:44:00 Test Item Value Reference Interpretation Comments Range PSA (test code = 5.3 ng/mL See_Comment H [Automated message] 2857-1) The system Simpleview generated this result transmitted ref erence range: < OR = 4 .0. The reference range was not used to int erpret this result as normal/abnormal . PSA, free (test 1.0 ng/mL code = 08685-0) PSA, free percent See_Comment L PSA(ng/mL ) Free (test code = PSA(%) Estimate d(x) 50918-2) Probability of Cancer(as%)0-2. 5 (*) Approx. 12.6-4. 0(1) 0-27(2) 24(3)4.1-10(4) 0-10 56 11-15 28 16-20 20 21-25 16 >or = 26 8>10(+) N/A >50 References:(1)Gregory ashby et al.:Urology 60: 469-474 (2001) (2)Karen et al.:J.Urol 168: 922-925 (2001) Free PSA(%) Sensitiv ity(%) Specificity(%) < or = 25 85 19 < or = 30 93 9 (3)Catalona et al.:KAROLINA 277: 6380-4659 (1996 ) (4)Catalona et al.:KAR[place]INA 279: 8968-3024 (1997 ) (x)These estima francis vary with age, ethnicity, fami ly history and LIANNE results.(*)The diagnostic usef ulness of % Free PSA h as not been establishe d in patients with t otal PSA below 2.6 ng/mL(+)In men with PSA above 10 ng /mL, prostate cancer risk is determined b y total PSA alone. The Total PSA value from this assay system is standardized ag ainst the equimolar P SA standard. The t est result will be approximately 2 0% higher when com pared to the WHO-standardize d Total PSA (Siemens as say). Comparison of s erial PSA results marzena uld be interpreted wit h this fact in mind. P SA was performed using the Daniel CoulterImmunoas say method. Values obtained from differentassay methods cannot be used interchangeably . PSAlevels, rega rdless of value, shoul d not be interpreteda s absolute eviden ce of the presence or absence ofdisea se. [Automated mess age] The system whic h generated this result transmitted ref erence range: >25 % (c alc). The reference r jay was not used to interpret this result as normal/abnor mal. MILO (test code = FASTING:YES MILO) FASTING: YES RAC (test code = Performing RAC) Organization Information: Site ID: IG Name: [facility] Address: [address] [place], [place] [address], [place] [address] Director: Dr. Arley Agudelo Lab Interpretation Abnormal (test code = 57320-5) [facility] ChildrenComprehensi Metabolic Panel with Adjusted [id number] 03:44:00 Test Item Value Reference Interpretation Comments Range Glucose (test code 64 mg/dL 65-99 L Fasting reference = 2345-7) interval BUN (test code = 21 mg/dL 7-25 3094-0) Creatinine (test 1.19 mg/dL 0.70-1.18 H For patient s >49 code = 2160-0) years of age, the reference limit for Creatinine is approximately 1 3% higher for peopleidentifie d as -Debra n. EGFR Non-Afr. See_Comment [Automated me ssage] Malagasy (test code The syst em which = 1025) generated this result transmit cesar reference range : > OR = 60 mL/min/1.73m2. The reference range was not used to interpret this result as normal/abnormal . EGFR See_Comment [Automated mes surendra] Malagasy (test code The syst em which = 9074) generated this result transmit cesar reference range : > OR = 60 mL/min/1.73m2. The reference range was not used to interpret this result as normal/abnormal . BUN/creatinine See_Comment [Automated m essage] ratio (test code = The syste m which 3097-3) generated this result transmit cesar reference range : 6 - 22 (calc). The reference range was not used to interpret this result as normal/abnormal . Sodium (test code = 139 mmol/L 214-165 7479-2) Potassium (test 4.7 mmol/L 3.5-5.3 code = 2823-3) Chloride (test code 104 mmol/L 98-110 = 2075-0) CO2 (test code = 27 mmol/L 20-32 2027-9) Calcium (test code 9.2 mg/dL 8.6-10.3 = 24502-3) Calcium (adjusted See_Comment [Automate d message] for albumin) (test The syste m which code = 34232-4) generated th is result transmit cesar reference range : 8.6 - 10.2 mg/dL (c alc). The reference r jay was not used to interpret this result as normal/abnormal . Protein (test code 9.4 g/dL 6.1-8.1 H = 2885-2) Albumin, S (test 3.3 g/dL 3.6-5.1 L code = 1751-7) Globulin, total See_Comment H [Automated message] (test code = The system In[place] Technologyic h 72100-6) generated this result transmit cesar reference range : 1.9 - 3.7 g/dL (jessica c). The reference r jay was not used to interpret this result as normal/abnormal . Albumin/globulin See_Comment L [Automated message] ratio (test code = The syste m which 1759-0) generated this result transmit cesar reference range : 1.0 - 2.5 (calc). T he reference range was not used to interpret this result as normal/abnormal . Total bilirubin 0.4 mg/dL 0.2-1.2 (test code = 1974-) Alkaline 62 U/L 35-144 phosphatase (test code = 6768-6) AST (test code = 30 U/L 10-35 1920-8) ALT (test code = 19 U/L 9-46 1742-6) MILO (test code = FASTING:YES MILO) FASTING: YES RAC (test code = Performing RAC) Organization Information: Site ID: RGA [facility] Address: [address] [place] [address] Director: Arley Agudelo Lab Interpretation Abnormal (test code = 67755-5) [facility] FallsMnpmuastHlvubnirp6940-19-72 14:33:34 Test Item Value Reference Range Interpretation Comments Cologuard result Negative Negative NEGATIVE TE ST RESULT. A reportable (test negative Co loguard result code = 6325) indicates a low likelihood that a colorectal canc er (CRC) or advanced nova noma (adenomatous po lyps with more advanced pre-malignant f eatures) is present. The chance that a person w ith a negative Cologu arpan test has a colorecta l cancer is less than 1 in 1500 (negative predi ctive value >99.9%) o r has an advanced adenom a is less than 5.3% (nega tive predictive valu e 94.7%). These data are based on a prospective cross-sectional study of 10,000 individu als at average risk fo r colorectal canc er who were screened w ith both Cologuard and colonoscopy. (I kimo T. et al, N Eng l J Med 2014;370(14):12 86-1297) The normal valu e (reference rang e) for this assay is negative.COLOGU ARPAN RE-SCREENING RECOMMENDATION: Periodic colorectal canc er screening is an important part of prevent sandeep healthcare for asymptomatic in dividuals at average risk for colorectal canc er. Following a neg ative Cologuard resul t, the [place] Cancer Society and U.S. Multi- Society Task Force scre ening guidelines anna mmend a Cologuard re-sc reening interval of 3 y ears. References: [place] r[place] Cancer Society Guideline for Colorectal Cancer Screening: https://www.can cer.org/ca ncer/colon-rect al-cancer/ detection-diagn osis-stagi ng/acs-recommen dations.ht ml.; Jeff DK, Eliceo garzon CR, Kieran MotleyK, Co lorectal Cancer Screenin g: Recommendations for Physicians and Patients from the U.S. Multi-Society T ask Force on Colorectal C ancer Screening , Am J Gastroenterolog y 2017; 112:1268-8853.T EST DESCRIPTION: Co mposite algorithmic gabrielle lysis of stool DNA-bioma rkers with hemoglobin immu noassay. Quantitative va lues of individual biom arkers are not reportable and are not associated with individual biom arker result referenc e ranges. Cologuard is in tended for colorectal canc er screening of ad ults of either sex, 45 years or older, who are at average-risk fo r colorectal canc er (CRC). Cologuard has b een approved for us e by the U.S. FDA. The p erformance of Cologuard wa s established in a cross sectional study of average-risk ad ults aged 50-84. Cologuar d performance in patients ages 45 to 49 y ears was estimated by farrar b-group analysis of jose luis r-age groups. Colonos copies performed for a positive result may find as the most clinically significant les ion: colorectal canc er [4.0%], advanced adenom a (including sess ile serrated polyps greater than or equal t o 1cm diameter) [20%] or non- advanced adenom a [31%]; or no colorecta l neoplasia [45%] . These estimates are d erived from a prospect sandeep cross-sectional screening study of 10,000 individuals at average risk for colore ctal cancer who were screened with both Colog uard and colonoscopy. (I kimo Lam al, N Eng l J Med 2014;370(14):12 86-1297.) Cologuard may p roduce a false negative or false positive result (no colorectal canc er or precancerous po lyp present at colo noscopy follow up). A n egative Cologuard test result does not guaran katrina the absence of CRC or advanced adenom a (pre-cancer). T he current Cologuard scree roque interval is jayme ry 3 years. ([place]ra n Cancer Society and U.S . Multi-Society T ask Force). Cologua rd performance fili a in a 10,000 patient pivotal study using col onoscopy as the referenc e method can be accessed at the following locat ion: www.exactOctapolys.c om/results . Additional de scription of the Cologuar d test process, radha olivas and precautions can be found at www.cologuar d.com. Irineo GonzalezARS-CoV-2 (COVID-19) RNA [Presence] in Respiratory specimen by ROCIO with probe [id number] 04:20:50 Test Item Value Reference Range Interpretation Comments SARS-CoV-2 (COVID-19) RNA Not detected Not-Detected [Presence] in Respiratory specimen by ROCIO with probe detection (test code = 28674-7) Whether patient is employed in a healthcare setting (test code = 79926-6) Whether the patient has symptoms related to condition of interest (test code = 83210-2) Patient was hospitalized because of this condition (test code = 16861-0) Whether the patient was admitted to intensive care unit (ICU) for condition of interest (test code = 48835-1) Whether patient resides in a congregate care setting (test code = 79493-7) [facility] THNRWWNJ-WuK-5 (COVID-19) RNA [Presence] in Respiratory specimen by ROCIO with probe ylpupfsif7946-21-89 02:08:21 Test Item Value Reference Range Interpretation Comments SARS-CoV-2 (COVID-19) RNA Not detected Not-Detected [Presence] in Respiratory specimen by ROCIO with probe detection (test code = 44964-0) [facility] ([facility]OVID-19) RNA [Presence] in Respiratory specimen by ROCIO with probe [id number] 02:59:46 Test Item Value Reference Range Interpretation Comments SARS-CoV-2 (COVID-19) RNA Not detected Not-Detected [Presence] in Respiratory specimen by ROCIO with probe detection (test code = 28477-8) [facility] 17:35:00 Test Item Value Reference Range Interpretation Comments AGAP (test code = AGAP) 12.1 10.0-20.0 [facility]HuaefxnLOAEWGJPUEQR0382-85-66 17:35:00 Test Item Value Reference Range Interpretation Comments eGFR (test code = eGFR) 73 [facility] CenterWrieszfLJJVXNAKEVEO2452-69-64 17:35:00 Test Item Value Reference Range Interpretation Comments Potassium Lvl (test code = Potassium 4.1 3.5-5.1 Lvl) [facility] CenterXqoccdkFJLEWELGCRGI8710-45-61 17:35:00 Test Item Value Reference Range Interpretation Comments Sodium Lvl (test code = Sodium Lvl) 140 135-145 [facility] CenterEoesyhsZOQAEWJGQCOT2904-52-71 17:35:00 Test Item Value Reference Range Interpretation Comments BUN (test code = BUN) 14 7-22 [facility] CenterYvwinytVLBVHUUUCFIA9277-92-75 17:35:00 Test Item Value Reference Range Interpretation Comments Creatinine Lvl (test code = Creatinine 1.19 0.50-1.40 Lvl) [facility] CenterWexjjmyFGDLWYIDVHPC3991-39-43 17:35:00 Test Item Value Reference Range Interpretation Comments Glucose Lvl (test code = Glucose Lvl) 120 70-99 [facility] CenterVlhadkwCJISDGGJXSNH0958-94-74 17:35:00 Test Item Value Reference Range Interpretation Comments Calcium Lvl (test code = Calcium Lvl) 8.7 8.5-10.5 [facility] CenterNejnnwdJHPJPRDTYTGT3707-51-66 17:35:00 Test Item Value Reference Range Interpretation Comments CO2 (test code = CO2) 26 24-32 [facility] CenterYihmljlIRAVVXDTAMES3648-12-01 17:35:00 Test Item Value Reference Range Interpretation Comments Chloride Lvl (test code = Chloride Lvl) 106 95-109 [facility] DallasGrrarqcCGXHVGHQRE5529-83-46 17:35:00 Test Item Value Reference Range Interpretation Comments PTT (test code = PTT) 32.8 s 22.9-35.8 [place] [address]-03-02 17:35:00 Test Item Value Reference Range Interpretation Comments INR (test code = INR) 1.06 1 0.85-1.17 [facility] DallasRxoqjxaLUURTKLXEM4278-23-54 17:35:00 Test Item Value Reference Range Interpretation Comments PT (test code = PT) 13.8 s 12.0-14.7 [facility] DallasJwppgtdLFZIDQXCUR4454-72-86 17:35:00 Test Item Value Reference Range Interpretation Comments MPV (test code = MPV) 8.1 7.4-10.4 [facility] DallasYqbhndvROQDMDGPWJ4766-40-89 17:35:00 Test Item Value Reference Range Interpretation Comments MCV (test code = MCV) 86.7 80.0-94.0 [place] [address]-03-02 17:35:00 Test Item Value Reference Range Interpretation Comments Hct (test code = Hct) 44.3 42.0-54.0 [place] [address]-03-02 17:35:00 Test Item Value Reference Range Interpretation Comments Hgb (test code = Hgb) 15.1 14.0-18.0 [place] [address]-03-02 17:35:00 Test Item Value Reference Range Interpretation Comments WBC (test code = WBC) 7.4 3.7-10.4 [facility] DallasCrbmenwBDNCBWEEDF7417-28-06 17:35:00 Test Item Value Reference Range Interpretation Comments RBC (test code = RBC) 5.10 4.70-6.10 [facility] DallasVuhejgaGLMAOMCKMY5432-89-72 17:35:00 Test Item Value Reference Range Interpretation Comments Platelet (test code = Platelet) 281 133-450 [facility] DallasKmfdgptBHLGEPYSRA8611-31-67 17:35:00 Test Item Value Reference Range Interpretation Comments RDW (test code = RDW) 14.2 11.5-14.5 [facility] DallasFsxumzdKJBHPCBJTE7049-20-61 17:35:00 Test Item Value Reference Range Interpretation Comments MCHC (test code = MCHC) 34.1 32.0-36.0 [facility] DallasSfernsnCFNGMWIBWD1375-55-99 17:35:00 Test Item Value Reference Range Interpretation Comments MCH (test code = MCH) 29.5 pg 27.0-31.0 [facility] DallasYwlbzywIMTLVNTUBI4970-40-61 17:35:00 Test Item Value Reference Range Interpretation Comments Basophils # (test code 0.1 See_Comment [Aut omated message] The = Basophils #) system which generated this result tra nsmitted reference range : <=0.2. The reference r jay was not used to int erpret this result as normal/abnormal . [facility] DallasNtvrbjfKMTDOXFTVM0930-93-41 17:35:00 Test Item Value Reference Range Interpretation Comments Eosinophils # (test code 0.3 See_Comment [A utomated message] The = Eosinophils #) system whic h generated this result tra nsmitted reference range : <=0.5. The reference r jay was not used to int erpret this result as normal/abnormal . [facility] DallasWwlvqyyKZCOHCEAIH3825-24-28 17:35:00 Test Item Value Reference Range Interpretation Comments Monocytes # (test code 0.5 See_Comment [Aut omated message] The = Monocytes #) system which generated this result tra nsmitted reference range : <=0.8. The reference r jay was not used to int erpret this result as normal/abnormal . [facility] DallasUehfdbnSKGQUWYOPR2804-96-27 17:35:00 Test Item Value Reference Range Interpretation Comments Lymphocytes # (test code = Lymphocytes 2.0 1.0-5.5 #) [facility] DallasQvhxyamLMRQLYTHXM6680-86-03 17:35:00 Test Item Value Reference Range Interpretation Comments Segs-Bands # (test code = Segs-Bands #) 4.4 1.5-8.1 [facility] DallasVyuromtMKKSWNDGVL4487-14-05 17:35:00 Test Item Value Reference Range Interpretation Comments Basophils (test code = 1.4 See_Comment [Aut omated message] The Basophils) system which ge nerated this result tra nsmitted reference range : <=1.0. The reference r jay was not used to int erpret this result as normal/abnormal . [facility] DallasIprpgrnUJRQKIVLLW9160-51-26 17:35:00 Test Item Value Reference Range Interpretation Comments Eosinophils (test code = 4.2 See_Comment [A utomated message] The Eosinophils) system which ge nerated this result tra nsmitted reference range : <=4.0. The reference r jay was not used to int erpret this result as normal/abnormal . [facility] DallasSribtnaSRCJPRWWDO2005-30-21 17:35:00 Test Item Value Reference Range Interpretation Comments Monocytes (test code = Monocytes) 7.1 2.0-12.0 [facility] DallasTcugvklHMESNSCHKY9848-53-28 17:35:00 Test Item Value Reference Range Interpretation Comments Segs (test code = Segs) 60.0 45.0-75.0 [facility] DallasBxhvpcuXMUZHSQAZP2453-72-49 17:35:00 Test Item Value Reference Range Interpretation Comments Lymphocytes (test code = Lymphocytes) 27.3 20.0-40.0 [facility] CenterUctcmzfGKWFOWYGGRCT7795-39-83 17:35:00 Test Item Value Reference Range Interpretation Comments AGAP (test code = AGAP) 12.1 10.0-20.0 [facility] CenterBfczpxuKQPSHJFVEBSY0845-11-64 17:35:00 Test Item Value Reference Range Interpretation Comments eGFR (test code = eGFR) 73 [facility] CenterSlxopswKXMPRFRKYSIR1503-42-02 17:35:00 Test Item Value Reference Range Interpretation Comments Potassium Lvl (test code = Potassium 4.1 3.5-5.1 Lvl) [facility] CenterTxybcudBSQHSHOGIENP6873-42-85 17:35:00 Test Item Value Reference Range Interpretation Comments Sodium Lvl (test code = Sodium Lvl) 140 135-145 [facility] CenterBgmgztlNPRFLWMENJOL4262-76-79 17:35:00 Test Item Value Reference Range Interpretation Comments BUN (test code = BUN) 14 7-22 [facility] CenterBstqnjbOATWXGRJXPNB8656-09-74 17:35:00 Test Item Value Reference Range Interpretation Comments Creatinine Lvl (test code = Creatinine 1.19 0.50-1.40 Lvl) [facility] CenterTmggyplQXFQQFNYQBPN3570-33-00 17:35:00 Test Item Value Reference Range Interpretation Comments Glucose Lvl (test code = Glucose Lvl) 120 70-99 [facility] CenterTdlciwfISOUVSUGCEQE0448-66-77 17:35:00 Test Item Value Reference Range Interpretation Comments Calcium Lvl (test code = Calcium Lvl) 8.7 8.5-10.5 [place] [address]-03-02 17:35:00 Test Item Value Reference Range Interpretation Comments CO2 (test code = CO2) 26 24-32 [facility] CenterSggxoanVNLODPRMFUCA1056-80-14 17:35:00 Test Item Value Reference Range Interpretation Comments Chloride Lvl (test code = Chloride Lvl) 106 95-109 [facility] DallasImroktfJXXIBWDZTO6741-25-61 17:35:00 Test Item Value Reference Range Interpretation Comments PTT (test code = PTT) 32.8 s 22.9-35.8 [facility] DallasAccibtpHRGJBVVNGN8253-56-86 17:35:00 Test Item Value Reference Range Interpretation Comments INR (test code = INR) 1.06 1 0.85-1.17 [facility] DallasJwqbceuTVEUNYPPFC6346-59-88 17:35:00 Test Item Value Reference Range Interpretation Comments PT (test code = PT) 13.8 s 12.0-14.7 [facility] DallasLfxcspoJKKWKNOEZS6365-24-12 17:35:00 Test Item Value Reference Range Interpretation Comments MPV (test code = MPV) 8.1 7.4-10.4 [facility] DallasXzgrdkxEHAAJCSLAT3000-45-56 17:35:00 Test Item Value Reference Range Interpretation Comments MCV (test code = MCV) 86.7 80.0-94.0 [place] [address]-03-02 17:35:00 Test Item Value Reference Range Interpretation Comments Hct (test code = Hct) 44.3 42.0-54.0 [place] [address]-03-02 17:35:00 Test Item Value Reference Range Interpretation Comments Hgb (test code = Hgb) 15.1 14.0-18.0 [facility] DallasYpsbhbzIOZLDVTSWR1412-38-47 17:35:00 Test Item Value Reference Range Interpretation Comments WBC (test code = WBC) 7.4 3.7-10.4 [facility] DallasTdgyikaKPPYGTBSJK6004-07-78 17:35:00 Test Item Value Reference Range Interpretation Comments RBC (test code = RBC) 5.10 4.70-6.10 [facility] DallasTzbeuhgFQVXDKPXTV6039-47-75 17:35:00 Test Item Value Reference Range Interpretation Comments Platelet (test code = Platelet) 281 133-450 [facility] DallasBobocuwKZYXRBATVX3988-60-41 17:35:00 Test Item Value Reference Range Interpretation Comments RDW (test code = RDW) 14.2 11.5-14.5 [facility] DallasXcobkuzPLCNNZYSSO6703-56-24 17:35:00 Test Item Value Reference Range Interpretation Comments MCHC (test code = MCHC) 34.1 32.0-36.0 [facility] DallasLdzgdbvSVNIXSRIZD7906-81-97 17:35:00 Test Item Value Reference Range Interpretation Comments MCH (test code = MCH) 29.5 pg 27.0-31.0 [facility] DallasUrtgtlkWOJZUDFSXW8317-07-20 17:35:00 Test Item Value Reference Range Interpretation Comments Basophils # (test code 0.1 See_Comment [Aut omated message] The = Basophils #) system which generated this result tra nsmitted reference range : <=0.2. The reference r jay was not used to int erpret this result as normal/abnormal . [facility] DallasEfcltmhFMZFBODEQP9106-63-50 17:35:00 Test Item Value Reference Range Interpretation Comments Eosinophils # (test code 0.3 See_Comment [A utomated message] The = Eosinophils #) system whic h generated this result tra nsmitted reference range : <=0.5. The reference r jay was not used to int erpret this result as normal/abnormal . [facility] DallasPpjmosbCVDIZDTIKY7657-92-23 17:35:00 Test Item Value Reference Range Interpretation Comments Monocytes # (test code 0.5 See_Comment [Aut omated message] The = Monocytes #) system which generated this result tra nsmitted reference range : <=0.8. The reference r jay was not used to int erpret this result as normal/abnormal . [facility]RjzszgdMFDIYVYRGB3220-76-71 17:35:00 Test Item Value Reference Range Interpretation Comments Lymphocytes # (test code = Lymphocytes 2.0 1.0-5.5 #) [facility] DallasYnvilmtADJJHUWWUW3046-40-67 17:35:00 Test Item Value Reference Range Interpretation Comments Segs-Bands # (test code = Segs-Bands #) 4.4 1.5-8.1 [facility] Dall[id number] 17:35:00 Test Item Value Reference Range Interpretation Comments Basophils (test code = 1.4 See_Comment [Aut omated message] The Basophils) system which ge nerated this result tra nsmitted reference range : <=1.0. The reference r jay was not used to int erpret this result as normal/abnormal . [facility] DallasNwunfkvQEBEEWLBXR7376-76-52 17:35:00 Test Item Value Reference Range Interpretation Comments Eosinophils (test code = 4.2 See_Comment [A utomated message] The Eosinophils) system which ge nerated this result tra nsmitted reference range : <=4.0. The reference r jay was not used to int erpret this result as normal/abnormal . [facility] DallasMhsflmiQXCDSBXNTS3145-38-69 17:35:00 Test Item Value Reference Range Interpretation Comments Monocytes (test code = Monocytes) 7.1 2.0-12.0 [facility] DallasRummvamVQSWUBIKTW8215-28-55 17:35:00 Test Item Value Reference Range Interpretation Comments Segs (test code = Segs) 60.0 45.0-75.0 [facility] DallasInjlontZNFMOHNTPP0202-54-70 17:35:00 Test Item Value Reference Range Interpretation Comments Lymphocytes (test code = Lymphocytes) 27.3 20.0-40.0 [facility] metabolic 2000 panel - Serum or [id number] 08:18:00 Test Item Value Reference Range Interpretation Comments glucose (test code = 157 mg/dL 65-99 H glucose) urea nitrogen (BUN) (test 14 mg/dL 7 code = urea nitrogen (BUN)) creatinine (test code = 1.20 mg/dL 0.70-1.25 creatinine) eGFR non-afr. swiss (test 63 mL/min/1.73m2 > or = 60 code = eGFR non-afr. swiss) eGFR (test 73 mL/min/1.73m2 > or = 60 code = eGFR ) BUN/creatinine ratio (test not applicable 08-23 code = BUN/creatinine ratio) sodium (test code = sodium) 144 mmol/L 135-146 potassium (test code = 4.0 mmol/L 3.5-5.3 potassium) chloride (test code = 105 mmol/L 98-110 chloride) carbon dioxide (test code = 26 mmol/L 20-31 carbon dioxide) calcium (test code = 9.3 mg/dL 8.6-10.3 calcium) protein, total (test code = 8.0 g/dL 6.1-8.1 protein, total) albumin (test code = 4.1 g/dL 3.6-5.1 albumin) globulin (test code = 3.9 g/dL (calc) 1.9-3.7 H globulin) albumin/globulin ratio (test 1.1 (calc) 1.0-2.5 code = albumin/globulin ratio) bilirubin, total (test code 0.7 mg/dL 0.2-1.2 = bilirubin, total) alkaline phosphatase (test 53 U/L 40-115 code = alkaline phosphatase) AST (test code = AST) 42 U/L 10-35 H ALT (test code = ALT) 35 U/L 9-46 [facility].total in [id number] 08:18:00 Test Item Value Reference Range Interpretation Comments hemoglobin A1C (test code 6.5 % of total HGB <5.7 H = hemoglobin A1C) EAG (mg/dL) (test code = 140 (calc) EAG (mg/dL)) EAG (mmol/L) (test code = 7.7 (calc) EAG (mmol/L)) [facility] - Serum or Plasma 2016-07-27 00:38:00 Test Item Value Reference Range Interpretation Comments glucose (test code = 139 mg/dL 65-99 H glucose) urea nitrogen (BUN) (test 12 mg/dL 7-25 code = urea nitrogen (BUN)) creatinine (test code = 1.13 mg/dL 0.70-1.25 creatinine) eGFR non-afr. swiss (test 67 mL/min/1.73m2 > or = 60 code = eGFR non-afr. swiss) eGFR (test 78 mL/min/1.73m2 > or = 60 code = eGFR ) BUN/creatinine ratio (test not applicable 08-23 code = BUN/creatinine ratio) sodium (test code = sodium) 140 mmol/L 135-146 potassium (test code = 3.8 mmol/L 3.5-5.3 potassium) chloride (test code = 104 mmol/L 98-110 chloride) carbon dioxide (test code = 27 mmol/L 20-31 carbon dioxide) calcium (test code = 9.5 mg/dL 8.6-10.3 calcium) protein, total (test code = 7.8 g/dL 6.1-8.1 protein, total) albumin (test code = 4.1 g/dL 3.6-5.1 albumin) globulin (test code = 3.7 g/dL (calc) 1.9-3.7 globulin) albumin/globulin ratio (test 1.1 (calc) 1.0-2.5 code = albumin/globulin ratio) bilirubin, total (test code 1.0 mg/dL 0.2-1.2 = bilirubin, total) alkaline phosphatase (test 54 U/L 40-115 code = alkaline phosphatase) AST (test code = AST) 39 U/L 10-35 H ALT (test code = ALT) 38 U/L 9-46 [facility]c/Hemoglobin.total in [id number] 00:38:00 Test Item Value Reference Range Interpretation Comments hemoglobin A1C (test code 6.8 % of total HGB <5.7 H = hemoglobin A1C) EAG (mg/dL) (test code = 148 (calc) EAG (mg/dL)) EAG (mmol/L) (test code = 8.2 (calc) EAG (mmol/L)) [facility] - Serum or Plasma 2016-04-25 05:42:00 Test Item Value Reference Range Interpretation Comments glucose (test code = 119 mg/dL 65-99 H glucose) urea nitrogen (BUN) (test 10 mg/dL 7-25 code = urea nitrogen (BUN)) creatinine (test code = 1.23 mg/dL 0.70-1.25 creatinine) eGFR non-afr. swiss (test 61 mL/min/1.73m2 > or = 60 code = eGFR non-afr. swiss) eGFR (test 70 mL/min/1.73m2 > or = 60 code = eGFR ) BUN/creatinine ratio (test not applicable 08-23 code = BUN/creatinine ratio) sodium (test code = sodium) 138 mmol/L 135-146 potassium (test code = 3.9 mmol/L 3.5-5.3 potassium) chloride (test code = 100 mmol/L 98-110 chloride) carbon dioxide (test code = 27 mmol/L 20-31 carbon dioxide) calcium (test code = 9.6 mg/dL 8.6-10.3 calcium) protein, total (test code = 7.9 g/dL 6.1-8.1 protein, total) albumin (test code = 4.2 g/dL 3.6-5.1 albumin) globulin (test code = 3.7 g/dL (calc) 1.9-3.7 globulin) albumin/globulin ratio (test 1.1 (calc) 1.0-2.5 code = albumin/globulin ratio) bilirubin, total (test code 0.8 mg/dL 0.2-1.2 = bilirubin, total) alkaline phosphatase (test 63 U/L 40-115 code = alkaline phosphatase) AST (test code = AST) 37 U/L 10-35 H ALT (test code = ALT) 30 U/L 9-46 [facility] - Serum or [id number] 05:42:00 Test Item Value Reference Range Interpretation Comments cholesterol, total (test code 120 mg/dL 125-200 L = cholesterol, total) HDL cholesterol (test code = 35 mg/dL > or = 40 L HDL cholesterol) triglycerides (test code = 82 mg/dL <150 triglycerides) LDL-cholesterol (test code = 69 mg/dL (calc) <130 LDL-cholesterol) chol/HDLC ratio (test code = 3.4 (calc) < or = 5.0 chol/HDLC ratio) non HDL cholesterol (test 85 mg/dL (calc) code = non HDL cholesterol) [facility]Hemoglobin.total in [id number] 05:42:00 Test Item Value Reference Range Interpretation Comments hemoglobin A1C (test code 7.4 % of total HGB <5.7 H = hemoglobin A1C) EAG (mg/dL) (test code = 166 (calc) EAG (mg/dL)) EAG (mmol/L) (test code = 9.2 (calc) EAG (mmol/L)) [facility] A[facility]/Hemoglobin.total in [id number] 01:16:00 Test Item Value Reference Range Interpretation Comments hemoglobin A1C (test code 8.0 % of total HGB <5.7 H = hemoglobin A1C) EAG (mg/dL) (test code = 183 (calc) EAG (mg/dL)) EAG (mmol/L) (test code = 10.1 (calc) EAG (mmol/L)) [facility] - Serum or Plasma 2016-01-31 01:16:00 Test Item Value Reference Range Interpretation Comments glucose (test code = 189 mg/dL 65-99 H glucose) urea nitrogen (BUN) (test 15 mg/dL 7-25 code = urea nitrogen (BUN)) creatinine (test code = 1.17 mg/dL 0.70-1.25 creatinine) eGFR non-afr. swiss (test 65 mL/min/1.73m2 > or = 60 code = eGFR non-afr. swiss) eGFR (test 75 mL/min/1.73m2 > or = 60 code = eGFR ) BUN/creatinine ratio (test not applicable 6- code = BUN/creatinine ratio) sodium (test code = sodium) 136 mmol/L 135-146 potassium (test code = 3.9 mmol/L 3.5-5.3 potassium) chloride (test code = 101 mmol/L 98-110 chloride) carbon dioxide (test code = 28 mmol/L 20-31 carbon dioxide) calcium (test code = 9.5 mg/dL 8.6-10.3 calcium) protein, total (test code = 7.8 g/dL 6.1-8.1 protein, total) albumin (test code = 4.0 g/dL 3.6-5.1 albumin) globulin (test code = 3.8 g/dL (calc) 1.9-3.7 H globulin) albumin/globulin ratio (test 1.1 (calc) 1.0-2.5 code = albumin/globulin ratio) bilirubin, total (test code 0.6 mg/dL 0.2-1.2 = bilirubin, total) alkaline phosphatase (test 55 U/L 40-115 code = alkaline phosphatase) AST (test code = AST) 42 U/L 10-35 H ALT (test code = ALT) 41 U/L - [facility] - Serum or Plasma 2015-10-20 23:38:00 Test Item Value Reference Range Interpretation Comments glucose (test code = 132 mg/dL 65-99 H glucose) urea nitrogen (BUN) (test 15 mg/dL 7-25 code = urea nitrogen (BUN)) creatinine (test code = 1.45 mg/dL 0.70-1.25 H creatinine) eGFR non-afr. swiss (test 50 mL/min/1.73m2 > or = 60 L code = eGFR non-afr. swiss) eGFR (test 58 mL/min/1.73m2 > or = 60 L code = eGFR ) BUN/creatinine ratio (test 10 (calc) 6-22 code = BUN/creatinine ratio) sodium (test code = sodium) 140 mmol/L 135-146 potassium (test code = 4.3 mmol/L 3.5-5.3 potassium) chloride (test code = 105 mmol/L 98-110 chloride) carbon dioxide (test code = 27 mmol/L 20-31 carbon dioxide) calcium (test code = 9.5 mg/dL 8.6-10.3 calcium) protein, total (test code = 8.0 g/dL 6.1-8.1 protein, total) albumin (test code = 4.1 g/dL 3.6-5.1 albumin) globulin (test code = 3.9 g/dL (calc) 1.9-3.7 H globulin) albumin/globulin ratio (test 1.1 (calc) 1.0-2.5 code = albumin/globulin ratio) bilirubin, total (test code 0.9 mg/dL 0.2-1.2 = bilirubin, total) alkaline phosphatase (test 42 U/L 40-115 code = alkaline phosphatase) AST (test code = AST) 32 U/L 10-35 ALT (test code = ALT) 31 U/L [facility]Hemoglobin.total in [id number] 23:38:00 Test Item Value Reference Range Interpretation Comments hemoglobin A1C (test code 6.1 % of total HGB <5.7 H = hemoglobin A1C) EAG (mg/dL) (test code = 128 (calc) EAG (mg/dL)) EAG (mmol/L) (test code = 7.1 (calc) EAG (mmol/L)) [facility] - Serum or [id number] 23:38:00 Test Item Value Reference Range Interpretation Comments cholesterol, total (test code 101 mg/dL 125-200 L = cholesterol, total) HDL cholesterol (test code = 35 mg/dL > or = 40 L HDL cholesterol) triglycerides (test code = 71 mg/dL <150 triglycerides) LDL-cholesterol (test code = 52 mg/dL (calc) <130 LDL-cholesterol) chol/HDLC ratio (test code = 2.9 (calc) < or = 5.0 chol/HDLC ratio) non HDL cholesterol (test 66 mg/dL (calc) code = non HDL cholesterol) [facility] 1999 [facility] - Serum or Plasma 2015-04-26 00:00:00 Test Item Value Reference Range Interpretation Comments glucose (test code = 122 mg/dL 65-99 H glucose) urea nitrogen (BUN) (test 13 mg/dL 7-25 code = urea nitrogen (BUN)) creatinine (test code = 1.23 mg/dL 0.70-1.25 creatinine) eGFR non-afr. swiss (test 61 mL/min/1.73m2 > or = 60 code = eGFR non-afr. swiss) eGFR (test 71 mL/min/1.73m2 > or = 60 code = eGFR ) BUN/creatinine ratio (test not applicable 6- code = BUN/creatinine ratio) sodium (test code = sodium) 136 mmol/L 135-146 potassium (test code = 3.9 mmol/L 3.5-5.3 potassium) chloride (test code = 103 mmol/L 98-110 chloride) carbon dioxide (test code = 24 mmol/L 19-30 carbon dioxide) calcium (test code = 9.5 mg/dL 8.6-10.3 calcium) protein, total (test code = 7.9 g/dL 6.1-8.1 protein, total) albumin (test code = 4.4 g/dL 3.6-5.1 albumin) globulin (test code = 3.5 g/dL (calc) 1.9-3.7 globulin) albumin/globulin ratio (test 1.3 (calc) 1.0-2.5 code = albumin/globulin ratio) bilirubin, total (test code 0.9 mg/dL 0.2-1.2 = bilirubin, total) alkaline phosphatase (test 52 U/L 40-115 code = alkaline phosphatase) AST (test code = AST) 39 U/L 10-35 H ALT (test code = ALT) 39 U/L 9-46 [facility] - Serum or [id number] 00:00:00 Test Item Value Reference Range Interpretation Comments cholesterol, total (test code 115 mg/dL 125-200 L = cholesterol, total) HDL cholesterol (test code = 34 mg/dL > or = 40 L HDL cholesterol) triglycerides (test code = 78 mg/dL <150 triglycerides) LDL-cholesterol (test code = 65 mg/dL (calc) <130 LDL-cholesterol) chol/HDLC ratio (test code = 3.4 (calc) < or = 5.0 chol/HDLC ratio) non HDL cholesterol (test 81 mg/dL (calc) code = non HDL cholesterol) [facility]/Hemoglobin.total in [id number] 00:00:00 Test Item Value Reference Range Interpretation Comments hemoglobin A1C (test code 6.8 % of total HGB <5.7 H = hemoglobin A1C) EAG (mg/dL) (test code = 148 (calc) EAG (mg/dL)) EAG (mmol/L) (test code = 8.2 (calc) EAG (mmol/L)) [facility] CenterI[id number] 12:31:00 Test Item Value Reference Range Interpretation Comments AGAP (test code = AGAP) 7.3 10.0-20.0 [facility]XstkdksEROVMBLIXWHX8250-69-05 12:31:00 Test Item Value Reference Range Interpretation Comments Chloride Lvl (test code = Chloride Lvl) 106 95-109 [facility] CenterLqazgdtYVNOQMGUXFUB3889-03-07 12:31:00 Test Item Value Reference Range Interpretation Comments CO2 (test code = CO2) 32 24-32 [facility] CenterDupbtobANBGCQBJTPPR4591-74-06 12:31:00 Test Item Value Reference Range Interpretation Comments Potassium Lvl (test code = Potassium 4.3 3.5-5.1 Lvl) [facility] CenterPdzwseaZKXQIZHKCBBP3119-00-18 12:31:00 Test Item Value Reference Range Interpretation Comments eGFR (test code = eGFR) 76 [facility] CenterVyourtzZWJPXLYNUYZW2880-02-66 12:31:00 Test Item Value Reference Range Interpretation Comments Calcium Lvl (test code = Calcium Lvl) 8.4 8.5-10.5 [facility] CenterDupmmydKCAMTNTTFSGB9259-79-26 12:31:00 Test Item Value Reference Range Interpretation Comments BUN (test code = BUN) 13 7-22 [facility] CenterHitifwyNKXJUKJXOVCC3410-80-46 12:31:00 Test Item Value Reference Range Interpretation Comments Glucose Lvl (test code = Glucose Lvl) 133 70-99 [facility] CenterCsxexogWVFXUWRDKFHO6973-06-16 12:31:00 Test Item Value Reference Range Interpretation Comments Sodium Lvl (test code = Sodium Lvl) 141 135-145 [facility] CenterOeuimokELUTBQNXQEXQ8050-17-43 12:31:00 Test Item Value Reference Range Interpretation Comments Creatinine Lvl (test code = Creatinine 1.16 0.50-1.40 Lvl) [facility] DallasZpqpettLMHYNWFXRF2359-39-96 12:31:00 Test Item Value Reference Range Interpretation Comments Segs-Bands # (test code = Segs-Bands #) 5.6 1.5-8.1 [facility] DallasKtadqoaTJKTTEJHTZ6966-12-75 12:31:00 Test Item Value Reference Range Interpretation Comments Eosinophils # (test code 0.5 See_Comment [A utomated message] The = Eosinophils #) system whic h generated this result tra nsmitted reference range : <=0.5. The reference r jay was not used to int erpret this result as normal/abnormal . [facility] DallasPafoxqiDFXXUQGTET2447-43-26 12:31:00 Test Item Value Reference Range Interpretation Comments Lymphocytes # (test code = Lymphocytes 2.4 1.0-5.5 #) [facility] DallasRujzxumZFWBGSBGLC7642-82-44 12:31:00 Test Item Value Reference Range Interpretation Comments Monocytes # (test code 0.8 See_Comment [Aut omated message] The = Monocytes #) system which generated this result tra nsmitted reference range : <=0.8. The reference r jay was not used to int erpret this result as normal/abnormal . [facility] DallasGdpuwxqFBRESLTQOD6774-54-30 12:31:00 Test Item Value Reference Range Interpretation Comments Basophils # (test code 0.1 See_Comment [Aut omated message] The = Basophils #) system which generated this result tra nsmitted reference range : <=0.2. The reference r jay was not used to int erpret this result as normal/abnormal . [facility] DallasKgdxgqlCAICJPXFKR5961-15-03 12:31:00 Test Item Value Reference Range Interpretation Comments Basophils (test code = 1.1 See_Comment [Aut omated message] The Basophils) system which ge nerated this result tra nsmitted reference range : <=1.0. The reference r jay was not used to int erpret this result as normal/abnormal . [facility] DallasBubzbpuOMAGBYWVSF3183-32-01 12:31:00 Test Item Value Reference Range Interpretation Comments Eosinophils (test code = 5.7 See_Comment [A utomated message] The Eosinophils) system which ge nerated this result tra nsmitted reference range : <=4.0. The reference r jay was not used to int erpret this result as normal/abnormal . [facility] DallasHeaifuzXSCHWIEGMP2109-79-00 12:31:00 Test Item Value Reference Range Interpretation Comments Monocytes (test code = Monocytes) 8.6 2.0-12.0 [facility] DallasJaofdzcUAIMCGZQHZ5085-17-18 12:31:00 Test Item Value Reference Range Interpretation Comments Segs (test code = Segs) 58.9 45.0-75.0 [facility] DallasXqyxmicBBKIJTZNVG8556-51-26 12:31:00 Test Item Value Reference Range Interpretation Comments Lymphocytes (test code = Lymphocytes) 25.7 20.0-40.0 [facility] DallasMzzzyjcDCSJEXXLPE5394-74-19 12:31:00 Test Item Value Reference Range Interpretation Comments Platelet (test code = Platelet) 203 133-450 [facility] DallasCuiajffYIDFRBYOKV7972-52-56 12:31:00 Test Item Value Reference Range Interpretation Comments MPV (test code = MPV) 8.5 7.4-10.4 [facility] DallasKyrxdddCRIBGDUQLG1430-30-62 12:31:00 Test Item Value Reference Range Interpretation Comments Hgb (test code = Hgb) 13.7 14.0-18.0 [facility] DallasYqtriohSCDAJFVDNG5187-34-67 12:31:00 Test Item Value Reference Range Interpretation Comments RBC (test code = RBC) 4.41 4.70-6.10 [facility] DallasPmcpeiwLXWMUPIBXO1664-82-69 12:31:00 Test Item Value Reference Range Interpretation Comments Hct (test code = Hct) 39.1 42.0-54.0 [facility] DallasRhvkuktMQPWNAQVJG2739-72-32 12:31:00 Test Item Value Reference Range Interpretation Comments MCH (test code = MCH) 31.2 pg 27.0-31.0 [facility] DallasLmqvkhoCQNUXTSXJP4350-69-11 12:31:00 Test Item Value Reference Range Interpretation Comments MCV (test code = MCV) 88.7 80.0-94.0 [facility] DallasEsmzvayFKPBIDUMMT0920-87-09 12:31:00 Test Item Value Reference Range Interpretation Comments RDW (test code = RDW) 13.0 11.5-14.5 [facility] DallasSgodguxNACOGONBLZ5195-01-19 12:31:00 Test Item Value Reference Range Interpretation Comments MCHC (test code = MCHC) 35.1 32.0-36.0 [facility] DallasVoaipwpJBMIBMAUBL1103-41-26 12:31:00 Test Item Value Reference Range Interpretation Comments WBC (test code = WBC) 9.4 3.7-10.4 [facility] CenterCzyaefmDUVGQFCFGSMU7946-31-41 12:31:00 Test Item Value Reference Range Interpretation Comments AGAP (test code = AGAP) 7.3 10.0-20.0 [facility] CenterYvrlbbdLWHCWNLUXHHO4326-59-29 12:31:00 Test Item Value Reference Range Interpretation Comments Chloride Lvl (test code = Chloride Lvl) 106 95-109 [facility] CenterTvrgozkQEJYRMEYOOMI5494-15-25 12:31:00 Test Item Value Reference Range Interpretation Comments CO2 (test code = CO2) 32 24-32 [facility] CenterApjxdniQQYOSJRWYFUZ0141-39-46 12:31:00 Test Item Value Reference Range Interpretation Comments Potassium Lvl (test code = Potassium 4.3 3.5-5.1 Lvl) [facility] CenterZbymaynTFAEQNHHAJAH2679-34-00 12:31:00 Test Item Value Reference Range Interpretation Comments eGFR (test code = eGFR) 76 [facility] CenterFhxegweTCMFRQMJWNHU4695-12-54 12:31:00 Test Item Value Reference Range Interpretation Comments Calcium Lvl (test code = Calcium Lvl) 8.4 8.5-10.5 [facility] CenterWshhcdpCSAFTPPFMJQC6377-01-16 12:31:00 Test Item Value Reference Range Interpretation Comments BUN (test code = BUN) 13 7-22 [facility] CenterJyljdlpKZRALXNGPACY6770-07-13 12:31:00 Test Item Value Reference Range Interpretation Comments Glucose Lvl (test code = Glucose Lvl) 133 70-99 [facility] CenterAyarujxFQZMHBMGPZII7692-97-15 12:31:00 Test Item Value Reference Range Interpretation Comments Sodium Lvl (test code = Sodium Lvl) 141 135-145 [facility] CenterCfbjatsDGQYUAYXADXF3960-20-80 12:31:00 Test Item Value Reference Range Interpretation Comments Creatinine Lvl (test code = Creatinine 1.16 0.50-1.40 Lvl) [facility] DallasHtenoyvDLEUEXFXUO7272-15-10 12:31:00 Test Item Value Reference Range Interpretation Comments Segs-Bands # (test code = Segs-Bands #) 5.6 1.5-8.1 [facility] DallasCdgbwtcTKRABOCEFK2534-44-21 12:31:00 Test Item Value Reference Range Interpretation Comments Eosinophils # (test code 0.5 See_Comment [A utomated message] The = Eosinophils #) system whic h generated this result tra nsmitted reference range : <=0.5. The reference r jay was not used to int erpret this result as normal/abnormal . [facility] DallasGbfgrkdWNGZSGYHFM1720-37-48 12:31:00 Test Item Value Reference Range Interpretation Comments Lymphocytes # (test code = Lymphocytes 2.4 1.0-5.5 #) [facility] DallasXyileezGSFBTGULXQ8196-72-56 12:31:00 Test Item Value Reference Range Interpretation Comments Monocytes # (test code 0.8 See_Comment [Aut omated message] The = Monocytes #) system which generated this result tra nsmitted reference range : <=0.8. The reference r jay was not used to int erpret this result as normal/abnormal . [facility] DallasSiomotsOQPJECRNCO5882-59-77 12:31:00 Test Item Value Reference Range Interpretation Comments Basophils # (test code 0.1 See_Comment [Aut omated message] The = Basophils #) system which generated this result tra nsmitted reference range : <=0.2. The reference r jay was not used to int erpret this result as normal/abnormal . [facility] DallasEuzecaaTRNRLYQAIJ1354-60-02 12:31:00 Test Item Value Reference Range Interpretation Comments Basophils (test code = 1.1 See_Comment [Aut omated message] The Basophils) system which ge nerated this result tra nsmitted reference range : <=1.0. The reference r jay was not used to int erpret this result as normal/abnormal . [facility] DallasQlhltqpNIPJIOOCZZ3272-83-70 12:31:00 Test Item Value Reference Range Interpretation Comments Eosinophils (test code = 5.7 See_Comment [A utomated message] The Eosinophils) system which ge nerated this result tra nsmitted reference range : <=4.0. The reference r jay was not used to int erpret this result as normal/abnormal . [facility] DallasBgkczukLMLLJYEBJV7200-28-17 12:31:00 Test Item Value Reference Range Interpretation Comments Monocytes (test code = Monocytes) 8.6 2.0-12.0 [facility] DallasRnrzkczZLEURHQBJW2868-85-11 12:31:00 Test Item Value Reference Range Interpretation Comments Segs (test code = Segs) 58.9 45.0-75.0 [facility] DallasWfsdfiuNUQVMREQVO8145-37-41 12:31:00 Test Item Value Reference Range Interpretation Comments Lymphocytes (test code = Lymphocytes) 25.7 20.0-40.0 [facility] DallasSalxsumYIWWMUSVEY3616-00-55 12:31:00 Test Item Value Reference Range Interpretation Comments Platelet (test code = Platelet) 203 133-450 [facility] DallasKtkybchUXDAGXINSM6649-05-27 12:31:00 Test Item Value Reference Range Interpretation Comments MPV (test code = MPV) 8.5 7.4-10.4 [facility] DallasYfkvbtrPQPPPYPYAH9880-59-40 12:31:00 Test Item Value Reference Range Interpretation Comments Hgb (test code = Hgb) 13.7 14.0-18.0 [facility] DallasUvhviroEUMSAOTIVR5263-48-46 12:31:00 Test Item Value Reference Range Interpretation Comments RBC (test code = RBC) 4.41 4.70-6.10 [facility] DallasHnyxrzqALAXSVHMFD3032-36-33 12:31:00 Test Item Value Reference Range Interpretation Comments Hct (test code = Hct) 39.1 42.0-54.0 [facility] DallasCrimcwxPDQDAGDMVW4116-78-44 12:31:00 Test Item Value Reference Range Interpretation Comments MCH (test code = MCH) 31.2 pg 27.0-31.0 [place] [address]-12-19 12:31:00 Test Item Value Reference Range Interpretation Comments MCV (test code = MCV) 88.7 80.0-94.0 [facility] DallasJcyjaycWMPHHUDUOH5018-76-60 12:31:00 Test Item Value Reference Range Interpretation Comments RDW (test code = RDW) 13.0 11.5-14.5 [facility] DallasSjxgxxdPIFMLNONLF0974-95-06 12:31:00 Test Item Value Reference Range Interpretation Comments MCHC (test code = MCHC) 35.1 32.0-36.0 [facility] DallasEdyrowcDFDWAMCVTH2378-00-82 12:31:00 Test Item Value Reference Range Interpretation Comments WBC (test code = WBC) 9.4 3.7-10.4 [facility]PkkldgwQEECUQGEHNAL7248-60-74 12:59:00 Test Item Value Reference Range Interpretation Comments AGAP (test code = AGAP) 9.3 10.0-20.0 [facility] CenterNzvasaqWSDJHWVPMBUK4946-09-25 12:59:00 Test Item Value Reference Range Interpretation Comments eGFR (test code = eGFR) 74 [facility] CenterWdofohwSDDDXNIVJLVD0476-21-33 12:59:00 Test Item Value Reference Range Interpretation Comments Chloride Lvl (test code = Chloride Lvl) 106 95-109 [facility] CenterHwczuqfATCIFFUKOARX1324-56-41 12:59:00 Test Item Value Reference Range Interpretation Comments Potassium Lvl (test code = Potassium 4.3 3.5-5.1 Lvl) [facility] CenterQxiyrslQGCTGJDGXIVW0788-55-72 12:59:00 Test Item Value Reference Range Interpretation Comments Calcium Lvl (test code = Calcium Lvl) 8.2 8.5-10.5 [facility] CenterCbcovchMZRDFORUTPUY9225-32-11 12:59:00 Test Item Value Reference Range Interpretation Comments CO2 (test code = CO2) 28 24-32 [facility] CenterYlmnrskSAYDTBJBFMET2764-92-03 12:59:00 Test Item Value Reference Range Interpretation Comments Creatinine Lvl (test code = Creatinine 1.18 0.50-1.40 Lvl) [facility] CenterUfyotqjYOYUCVORWRGR8664-76-92 12:59:00 Test Item Value Reference Range Interpretation Comments Glucose Lvl (test code = Glucose Lvl) 135 70-99 [facility] CenterKelkocrWBPBJCAXQRUI3814-16-52 12:59:00 Test Item Value Reference Range Interpretation Comments Sodium Lvl (test code = Sodium Lvl) 139 135-145 [facility]icsQkjbfyiCIPURJSELGCJ7861-11-53 12:59:00 Test Item Value Reference Range Interpretation Comments BUN (test code = BUN) 13 7-22 [facility] DallasSuvmhanJHCSQPLIGQ1111-23-12 12:59:00 Test Item Value Reference Range Interpretation Comments MCH (test code = MCH) 31.1 pg 27.0-31.0 [facility] DallasKmpafhcPIDTXCFKLS7387-54-43 12:59:00 Test Item Value Reference Range Interpretation Comments MCV (test code = MCV) 88.4 80.0-94.0 [facility] DallasXwwojuiTTMOOLXZAQ0161-97-38 12:59:00 Test Item Value Reference Range Interpretation Comments Hct (test code = Hct) 38.8 42.0-54.0 [facility] DallasWaixtyqMGTRPGLKXR2384-98-45 12:59:00 Test Item Value Reference Range Interpretation Comments MCHC (test code = MCHC) 35.2 32.0-36.0 [facility] DallasGevmquoWXNNYSJNTU0493-48-17 12:59:00 Test Item Value Reference Range Interpretation Comments WBC (test code = WBC) 8.6 3.7-10.4 [facility] DallasYouahysVJMLTNRTBP5617-30-75 12:59:00 Test Item Value Reference Range Interpretation Comments Hgb (test code = Hgb) 13.7 14.0-18.0 [facility] DallasYamuybyMPTDXYBAHD8751-48-05 12:59:00 Test Item Value Reference Range Interpretation Comments RBC (test code = RBC) 4.39 4.70-6.10 [facility] DallasHlwxpwkOQDYHWMPRI3486-20-60 12:59:00 Test Item Value Reference Range Interpretation Comments Platelet (test code = Platelet) 194 133-450 [facility] DallasXspapjuTRCZUQFOYQ9803-21-14 12:59:00 Test Item Value Reference Range Interpretation Comments RDW (test code = RDW) 12.8 11.5-14.5 [facility] DallasRndxyviWXVIZRHEVP2028-47-72 12:59:00 Test Item Value Reference Range Interpretation Comments MPV (test code = MPV) 8.7 7.4-10.4 [facility] DallasLacqmhuCYMDMMOXLV1172-14-75 12:59:00 Test Item Value Reference Range Interpretation Comments Basophils # (test code 0.1 See_Comment [Aut omated message] The = Basophils #) system which generated this result tra nsmitted reference range : <=0.2. The reference r jay was not used to int erpret this result as normal/abnormal . [facility] DallasRlsrnwwLMXUNIJJPX0237-17-92 12:59:00 Test Item Value Reference Range Interpretation Comments Monocytes # (test code 0.7 See_Comment [Aut omated message] The = Monocytes #) system which generated this result tra nsmitted reference range : <=0.8. The reference r jay was not used to int erpret this result as normal/abnormal . [facility] DallasCgstluhNJHNRQUYBI4244-81-09 12:59:00 Test Item Value Reference Range Interpretation Comments Eosinophils # (test code 0.5 See_Comment [A utomated message] The = Eosinophils #) system whic h generated this result tra nsmitted reference range : <=0.5. The reference r jay was not used to int erpret this result as normal/abnormal . [facility] DallasPyjuijvBAEPYFSKSJ8535-90-40 12:59:00 Test Item Value Reference Range Interpretation Comments Segs (test code = Segs) 60.0 45.0-75.0 [facility] DallasMsnhcsdUMCLCVVOYL6266-86-34 12:59:00 Test Item Value Reference Range Interpretation Comments Lymphocytes # (test code = Lymphocytes 2.1 1.0-5.5 #) [facility] DallasRijzlgdHYCYVBVAYB2041-00-32 12:59:00 Test Item Value Reference Range Interpretation Comments Segs-Bands # (test code = Segs-Bands #) 5.2 1.5-8.1 [facility] DallasNbojjsjRDMEFZFUOG6466-38-08 12:59:00 Test Item Value Reference Range Interpretation Comments Basophils (test code = 1.6 See_Comment [Aut omated message] The Basophils) system which ge nerated this result tra nsmitted reference range : <=1.0. The reference r jay was not used to int erpret this result as normal/abnormal . [facility] DallasHmhetpuFHXXBQRNUE9146-60-15 12:59:00 Test Item Value Reference Range Interpretation Comments Eosinophils (test code = 5.7 See_Comment [A utomated message] The Eosinophils) system which ge nerated this result tra nsmitted reference range : <=4.0. The reference r jay was not used to int erpret this result as normal/abnormal . [place] 980805-12-18 12:59:00 Test Item Value Reference Range Interpretation Comments Lymphocytes (test code = Lymphocytes) 24.2 20.0-40.0 [facility] DallasFbmdjtiCUXAQMMAFW7795-16-20 12:59:00 Test Item Value Reference Range Interpretation Comments Monocytes (test code = Monocytes) 8.5 2.0-12.0 [facility] CenterZvwstlhKDGXAZVXOYRQ2607-53-29 12:59:00 Test Item Value Reference Range Interpretation Comments AGAP (test code = AGAP) 9.3 10.0-20.0 [facility] CenterPmihjdiSEMQLPJDMQQO5545-44-88 12:59:00 Test Item Value Reference Range Interpretation Comments eGFR (test code = eGFR) 74 [facility] CenterMewewrmDGCOYTBAQLDG1187-33-62 12:59:00 Test Item Value Reference Range Interpretation Comments Chloride Lvl (test code = Chloride Lvl) 106 95-109 [facility] CenterPysmebtIYJPZGIXLBYA8845-98-97 12:59:00 Test Item Value Reference Range Interpretation Comments Potassium Lvl (test code = Potassium 4.3 3.5-5.1 Lvl) [facility] CenterFxulfkpUZVZRORZDMVX7019-07-04 12:59:00 Test Item Value Reference Range Interpretation Comments Calcium Lvl (test code = Calcium Lvl) 8.2 8.5-10.5 [facility] CenterFgekvvbGELXJLPEYRDS8111-17-27 12:59:00 Test Item Value Reference Range Interpretation Comments CO2 (test code = CO2) 28 24-32 [facility] CenterQyyrulcNMMNYEFTMMNO7259-23-81 12:59:00 Test Item Value Reference Range Interpretation Comments Creatinine Lvl (test code = Creatinine 1.18 0.50-1.40 Lvl) [facility] CenterJitgyzyOBWSLWKHDVKT5019-84-37 12:59:00 Test Item Value Reference Range Interpretation Comments Glucose Lvl (test code = Glucose Lvl) 135 70-99 [facility] CenterCddjgjtABEONYLFXWDP5401-66-45 12:59:00 Test Item Value Reference Range Interpretation Comments Sodium Lvl (test code = Sodium Lvl) 139 135-145 [facility] CenterZinkldnVGHPGCSPNNFG7291-06-31 12:59:00 Test Item Value Reference Range Interpretation Comments BUN (test code = BUN) 13 7-22 [facility] DallasJddysvnAXISKTMYSQ6965-52-47 12:59:00 Test Item Value Reference Range Interpretation Comments MCH (test code = MCH) 31.1 pg 27.0-31.0 [facility] DallasDmspfzkRMDSBPJVVN9043-75-84 12:59:00 Test Item Value Reference Range Interpretation Comments MCV (test code = MCV) 88.4 80.0-94.0 [facility] DallasStieorcBYTYEYVQNV3607-62-41 12:59:00 Test Item Value Reference Range Interpretation Comments Hct (test code = Hct) 38.8 42.0-54.0 [facility] DallasMxixmpfQVPEZPWUOH1835-70-23 12:59:00 Test Item Value Reference Range Interpretation Comments MCHC (test code = MCHC) 35.2 32.0-36.0 [facility] DallasVegdlkeTSNWEVARYL8837-84-77 12:59:00 Test Item Value Reference Range Interpretation Comments WBC (test code = WBC) 8.6 3.7-10.4 [facility] DallasOgdtkypQSRYNUXXVE1142-06-41 12:59:00 Test Item Value Reference Range Interpretation Comments Hgb (test code = Hgb) 13.7 14.0-18.0 [facility] DallasIieqnquUQOEYWWVAV1669-25-61 12:59:00 Test Item Value Reference Range Interpretation Comments RBC (test code = RBC) 4.39 4.70-6.10 [facility] DallasYlozkwmWFJVXJFRBH3690-22-35 12:59:00 Test Item Value Reference Range Interpretation Comments Platelet (test code = Platelet) 194 133-450 [facility] DallasZcdyoxqSZPPIYTFZT0720-28-16 12:59:00 Test Item Value Reference Range Interpretation Comments RDW (test code = RDW) 12.8 11.5-14.5 [facility] DallasEcoyeexCVQVAQGJEF4905-50-95 12:59:00 Test Item Value Reference Range Interpretation Comments MPV (test code = MPV) 8.7 7.4-10.4 [facility] DallasIzxhjwsQVKWCXNGNZ9643-50-49 12:59:00 Test Item Value Reference Range Interpretation Comments Basophils # (test code 0.1 See_Comment [Aut omated message] The = Basophils #) system which generated this result tra nsmitted reference range : <=0.2. The reference r jay was not used to int erpret this result as normal/abnormal . [facility] DallasHzlygboGQFXMQVAHO2664-57-86 12:59:00 Test Item Value Reference Range Interpretation Comments Monocytes # (test code 0.7 See_Comment [Aut omated message] The = Monocytes #) system which generated this result tra nsmitted reference range : <=0.8. The reference r jay was not used to int erpret this result as normal/abnormal . [facility] DallasBrhhucaZZGJJPWRXL2009-45-62 12:59:00 Test Item Value Reference Range Interpretation Comments Eosinophils # (test code 0.5 See_Comment [A utomated message] The = Eosinophils #) system whic h generated this result tra nsmitted reference range : <=0.5. The reference r jay was not used to int erpret this result as normal/abnormal . [facility] DallasRsvcepyFAAKNZKUTF8413-99-94 12:59:00 Test Item Value Reference Range Interpretation Comments Segs (test code = Segs) 60.0 45.0-75.0 [facility] DallasXqjxmruHSZXGOJXSO8358-93-85 12:59:00 Test Item Value Reference Range Interpretation Comments Lymphocytes # (test code = Lymphocytes 2.1 1.0-5.5 #) [facility] DallasRrgjyvnDUVRKNHJUH6762-92-62 12:59:00 Test Item Value Reference Range Interpretation Comments Segs-Bands # (test code = Segs-Bands #) 5.2 1.5-8.1 [facility] DallasDtmwzziPINBLSQOFK6599-41-15 12:59:00 Test Item Value Reference Range Interpretation Comments Basophils (test code = 1.6 See_Comment [Aut omated message] The Basophils) system which ge nerated this result tra nsmitted reference range : <=1.0. The reference r jay was not used to int erpret this result as normal/abnormal . [facility] DallasPieapsbGEMYBWRANJ4449-43-82 12:59:00 Test Item Value Reference Range Interpretation Comments Eosinophils (test code = 5.7 See_Comment [A utomated message] The Eosinophils) system which ge nerated this result tra nsmitted reference range : <=4.0. The reference r jya was not used to int erpret this result as normal/abnormal . [facility] DallasAfqpttdPXWSOWPUJX5299-71-45 12:59:00 Test Item Value Reference Range Interpretation Comments Lymphocytes (test code = Lymphocytes) 24.2 20.0-40.0 [facility] DallasCjzjradOJRRGYGVBU0565-21-46 12:59:00 Test Item Value Reference Range Interpretation Comments Monocytes (test code = Monocytes) 8.5 2.0-12.0 [facility]LlxtgxmNVLRRKNQQL9582-55-40 02:24:00 Test Item Value Reference Range Interpretation Comments Vanco Pk TLD (test code = Vanco Pk TLD) [address] [facility]icsPgzbmhtXTZAFNTGWU8384-40-34 02:24:00 Test Item Value Reference Range Interpretation Comments Vanco Pk (test code = Vanco Pk) 19.4 [facility]icsPrjxfppYWACPTFNEA6058-06-41 02:24:00 Test Item Value Reference Range Interpretation Comments Vanco [employer]k TLD (test code = Vanco Pk TLD) [address] [facility]icsYeokwxiTDBBYFZNYO0494-42-33 02:24:00 Test Item Value Reference Range Interpretation Comments Vanco Pk (test code = Vanco Pk) 19.4 [facility]icsBaklqitIGRANQGKJP9314-98-69 22:20:00 Test Item Value Reference Range Interpretation Comments Vanco Tr TND (test code = Vanco Tr TND) [facility] [facility]BnikruuDVTCCTEPXL8777-34-30 22:20:00 Test Item Value Reference Range Interpretation Comments Vanco Tr (test code = Vanco Tr) 8.6 [facility]icsApssnmzXZCIRLQASP4123-85-30 22:20:00 Test Item Value Reference Range Interpretation Comments Vanco Tr TND (test code = Vanco Tr TND) [address] [facility]FvqtekdHXENANABDS5279-66-88 22:20:00 Test Item Value Reference Range Interpretation Comments Vanco Tr (test code = Vanco Tr) 8.6 [facility]2015-12-17 10:43:00 Test Item Value Reference Range Interpretation Comments Calcium Lvl (test code = Calcium Lvl) 8.2 8.5-10.5 [facility]icsannCRITICAL ACCESS HOSPITALHRHJB8666-93-53 10:43:00 Test Item Value Reference Range Interpretation Comments Potassium Lvl (test code = Potassium 3.9 3.5-5.1 Lvl) [facility]icsannCRITICAL ACCESS HOSPITALGQNVK1248-87-32 10:43:00 Test Item Value Reference Range Interpretation Comments Sodium Lvl (test code = Sodium Lvl) 141 135-145 [facility]2015-12-17 10:43:00 Test Item Value Reference Range Interpretation Comments Creatinine Lvl (test code = Creatinine 1.22 0.50-1.40 Lvl) [facility]2015-12-17 10:43:00 Test Item Value Reference Range Interpretation Comments Chloride Lvl (test code = Chloride Lvl) 105 95-109 [facility]2015-12-17 10:43:00 Test Item Value Reference Range Interpretation Comments CO2 (test code = CO2) 28 24-32 [facility]2015-12-17 10:43:00 Test Item Value Reference Range Interpretation Comments Glucose Lvl (test code = Glucose Lvl) 154 70-99 [facility]2015-12-17 10:43:00 Test Item Value Reference Range Interpretation Comments BUN (test code = BUN) 20 7-22 [facility]2015-12-17 10:43:00 Test Item Value Reference Range Interpretation Comments eGFR (test code = eGFR) 71 [facility]2015-12-17 10:43:00 Test Item Value Reference Range Interpretation Comments AGAP (test code = AGAP) 11.9 10.0-20.0 [facility] DallasFkfetvnJPMVAWQAAJ6572-08-62 10:43:00 Test Item Value Reference Range Interpretation Comments Segs (test code = Segs) 54.0 45.0-75.0 [facility] DallasScmgdgoXDCDMGYVVT2283-69-47 10:43:00 Test Item Value Reference Range Interpretation Comments Lymphocytes (test code = Lymphocytes) 30.3 20.0-40.0 [facility] DallasKyvyrcvLJSLINQIBT2213-30-72 10:43:00 Test Item Value Reference Range Interpretation Comments Eosinophils (test code = 6.2 See_Comment [A utomated message] The Eosinophils) system which ge nerated this result tra nsmitted reference range : <=4.0. The reference r jay was not used to int erpret this result as normal/abnormal . [facility] DallasRvvkmscRCBVQTMUVW4436-91-90 10:43:00 Test Item Value Reference Range Interpretation Comments Lymphocytes # (test code = Lymphocytes 2.4 1.0-5.5 #) [facility] DallasNakohvaDKLBIVQKWO3906-97-43 10:43:00 Test Item Value Reference Range Interpretation Comments Basophils (test code = 1.2 See_Comment [Aut omated message] The Basophils) system which ge nerated this result tra nsmitted reference range : <=1.0. The reference r jay was not used to int erpret this result as normal/abnormal . [facility] DallasRizghyqSHJEMWOKRQ5391-03-75 10:43:00 Test Item Value Reference Range Interpretation Comments Monocytes (test code = Monocytes) 8.3 2.0-12.0 [facility] DallasGxlermkIOYJRTCHTB3612-63-45 10:43:00 Test Item Value Reference Range Interpretation Comments Segs-Bands # (test code = Segs-Bands #) 4.3 1.5-8.1 [facility] DallasDbxnvuxUKFVLGOBBJ3719-67-78 10:43:00 Test Item Value Reference Range Interpretation Comments Basophils # (test code 0.1 See_Comment [Aut omated message] The = Basophils #) system which generated this result tra nsmitted reference range : <=0.2. The reference r jay was not used to int erpret this result as normal/abnormal . [facility] DallasItckegbBTGNPYHIOF7779-78-64 10:43:00 Test Item Value Reference Range Interpretation Comments Eosinophils # (test code 0.5 See_Comment [A utomated message] The = Eosinophils #) system whic h generated this result tra nsmitted reference range : <=0.5. The reference r jay was not used to int erpret this result as normal/abnormal . [facility] DallasRskxugyBXQXZJWYMF2927-82-52 10:43:00 Test Item Value Reference Range Interpretation Comments Monocytes # (test code 0.7 See_Comment [Aut omated message] The = Monocytes #) system which generated this result tra nsmitted reference range : <=0.8. The reference r jay was not used to int erpret this result as normal/abnormal . [facility] DallasGhfcmfgUGPESRIMKR3430-66-42 10:43:00 Test Item Value Reference Range Interpretation Comments RDW (test code = RDW) 12.9 11.5-14.5 [facility] DallasSaqhsfeWFJCAXSWVN5102-18-28 10:43:00 Test Item Value Reference Range Interpretation Comments MCHC (test code = MCHC) 34.7 32.0-36.0 [facility] DallasNqgwcfoBKDQTZXRFY7791-07-63 10:43:00 Test Item Value Reference Range Interpretation Comments MPV (test code = MPV) 9.1 7.4-10.4 [facility] DallasRygochmVFRYCECAYM6255-48-14 10:43:00 Test Item Value Reference Range Interpretation Comments Platelet (test code = Platelet) 214 133-450 [place] 980805-12-17 10:43:00 Test Item Value Reference Range Interpretation Comments Hgb (test code = Hgb) 14.1 14.0-18.0 [place] 980805-12-17 10:43:00 Test Item Value Reference Range Interpretation Comments MCV (test code = MCV) 89.2 80.0-94.0 [place] [address]-12-17 10:43:00 Test Item Value Reference Range Interpretation Comments Hct (test code = Hct) 40.8 42.0-54.0 [place] [address]-12-17 10:43:00 Test Item Value Reference Range Interpretation Comments MCH (test code = MCH) 31.0 pg 27.0-31.0 [facility] DallasNzeqbyrFPLVDZEROT9094-13-87 10:43:00 Test Item Value Reference Range Interpretation Comments WBC (test code = WBC) 7.9 3.7-10.4 [place] 980805-12-17 10:43:00 Test Item Value Reference Range Interpretation Comments RBC (test code = RBC) 4.57 4.70-6.10 [place] 980805-12-17 10:43:00 Test Item Value Reference Range Interpretation Comments INR (test code = INR) 1.06 0.85-1.17 [place] 980805-12-17 10:43:00 Test Item Value Reference Range Interpretation Comments PTT (test code = PTT) 32.3 s 22.9-35.8 [place] 980805-12-17 10:43:00 Test Item Value Reference Range Interpretation Comments PT (test code = PT) 14.1 s 12.0-14.7 [facility]2015-12-17 10:43:00 Test Item Value Reference Range Interpretation Comments Calcium Lvl (test code = Calcium Lvl) 8.2 8.5-10.5 [facility]2015-12-17 10:43:00 Test Item Value Reference Range Interpretation Comments Potassium Lvl (test code = Potassium 3.9 3.5-5.1 Lvl) [facility]2015-12-17 10:43:00 Test Item Value Reference Range Interpretation Comments Sodium Lvl (test code = Sodium Lvl) 141 135-145 [facility]2015-12-17 10:43:00 Test Item Value Reference Range Interpretation Comments Creatinine Lvl (test code = Creatinine 1.22 0.50-1.40 Lvl) [facility]2015-12-17 10:43:00 Test Item Value Reference Range Interpretation Comments Chloride Lvl (test code = Chloride Lvl) 105 95-109 [facility]2015-12-17 10:43:00 Test Item Value Reference Range Interpretation Comments CO2 (test code = CO2) 28 24-32 [facility]2015-12-17 10:43:00 Test Item Value Reference Range Interpretation Comments Glucose Lvl (test code = Glucose Lvl) 154 70-99 [facility]2015-12-17 10:43:00 Test Item Value Reference Range Interpretation Comments BUN (test code = BUN) 20 7-22 [facility]2015-12-17 10:43:00 Test Item Value Reference Range Interpretation Comments eGFR (test code = eGFR) 71 [facility]2015-12-17 10:43:00 Test Item Value Reference Range Interpretation Comments AGAP (test code = AGAP) 11.9 10.0-20.0 [facility] DallasLmaiktiVBZAKYZTOE5373-22-50 10:43:00 Test Item Value Reference Range Interpretation Comments Segs (test code = Segs) 54.0 45.0-75.0 [facility] DallasGrkufzzUBSVLCZXSB3211-64-61 10:43:00 Test Item Value Reference Range Interpretation Comments Lymphocytes (test code = Lymphocytes) 30.3 20.0-40.0 [facility] DallasQyxpczkCFHWPQLEQP1016-88-31 10:43:00 Test Item Value Reference Range Interpretation Comments Eosinophils (test code = 6.2 See_Comment [A utomated message] The Eosinophils) system which ge nerated this result tra nsmitted reference range : <=4.0. The reference r jay was not used to int erpret this result as normal/abnormal . [facility] DallasIdkfyriYNWLUHNRWU2699-92-34 10:43:00 Test Item Value Reference Range Interpretation Comments Lymphocytes # (test code = Lymphocytes 2.4 1.0-5.5 #) [facility] DallasXiouooxIFBMUOCYNP7105-54-45 10:43:00 Test Item Value Reference Range Interpretation Comments Basophils (test code = 1.2 See_Comment [Aut omated message] The Basophils) system which ge nerated this result tra nsmitted reference range : <=1.0. The reference r jay was not used to int erpret this result as normal/abnormal . [facility] DallasJndbrseKQRAOGTEXA0779-76-19 10:43:00 Test Item Value Reference Range Interpretation Comments Monocytes (test code = Monocytes) 8.3 2.0-12.0 [facility] DallasOlwasdvBOEAVHVQKF9141-47-73 10:43:00 Test Item Value Reference Range Interpretation Comments Segs-Bands # (test code = Segs-Bands #) 4.3 1.5-8.1 [facility] DallasUbelknbZIBZCSCJBR4993-57-23 10:43:00 Test Item Value Reference Range Interpretation Comments Basophils # (test code 0.1 See_Comment [Aut omated message] The = Basophils #) system which generated this result tra nsmitted reference range : <=0.2. The reference r jay was not used to int erpret this result as normal/abnormal . [facility] DallasAelfwbcKYTQITYYFB4564-27-32 10:43:00 Test Item Value Reference Range Interpretation Comments Eosinophils # (test code 0.5 See_Comment [A utomated message] The = Eosinophils #) system whic h generated this result tra nsmitted reference range : <=0.5. The reference r jay was not used to int erpret this result as normal/abnormal . [facility] DallasYqoexuuTEVUGKXTLV8923-63-37 10:43:00 Test Item Value Reference Range Interpretation Comments Monocytes # (test code 0.7 See_Comment [Aut omated message] The = Monocytes #) system which generated this result tra nsmitted reference range : <=0.8. The reference r jay was not used to int erpret this result as normal/abnormal . [facility] [id number] 10:43:00 Test Item Value Reference Range Interpretation Comments RDW (test code = RDW) 12.9 11.5-14.5 [facility] DallasTbecdgwXNGZKAPSSK7522-39-84 10:43:00 Test Item Value Reference Range Interpretation Comments MCHC (test code = MCHC) 34.7 32.0-36.0 [facility] DallasIphdrhdRRRPZYINQA9088-24-52 10:43:00 Test Item Value Reference Range Interpretation Comments MPV (test code = MPV) 9.1 7.4-10.4 [place] [id number] 10:43:00 Test Item Value Reference Range Interpretation Comments Platelet (test code = Platelet) 214 133-450 [facility] DallasXqsxhnsSQZKEPUAQI4583-64-88 10:43:00 Test Item Value Reference Range Interpretation Comments Hgb (test code = Hgb) 14.1 14.0-18.0 [facility] DallasLcjetgmXMMFSKCDVH1793-66-71 10:43:00 Test Item Value Reference Range Interpretation Comments MCV (test code = MCV) 89.2 80.0-94.0 [facility] DallasDuppvwvMEKYVHZJWW9795-15-06 10:43:00 Test Item Value Reference Range Interpretation Comments Hct (test code = Hct) 40.8 42.0-54.0 [facility] DallasNvftdtvPXKZQKSDIF6284-25-53 10:43:00 Test Item Value Reference Range Interpretation Comments MCH (test code = MCH) 31.0 pg 27.0-31.0 [facility] DallasRntumxnTXCTVKPWBQ8343-32-32 10:43:00 Test Item Value Reference Range Interpretation Comments WBC (test code = WBC) 7.9 3.7-10.4 [facility] DallasPtoklsoYCJYLVIFDC9170-95-53 10:43:00 Test Item Value Reference Range Interpretation Comments RBC (test code = RBC) 4.57 4.70-6.10 [facility] DallasZdqxpuhIQBGBPRNZU8095-39-54 10:43:00 Test Item Value Reference Range Interpretation Comments INR (test code = INR) 1.06 0.85-1.17 [facility] DallasFtsorxdKIGRXZKTGU3380-90-28 10:43:00 Test Item Value Reference Range Interpretation Comments PTT (test code = PTT) 32.3 s 22.9-35.8 [facility] DallasGfolcnaCBDLTXVSUH6145-51-45 10:43:00 Test Item Value Reference Range Interpretation Comments PT (test code = PT) 14.1 s 12.0-14.7 [facility] [id number] 19:45:00 Test Item Value Reference Range Interpretation Comments AST (test code = AST) 44 See_Comment [Auto mated message] The system which ge nerated this result transmit cesar reference range : <=37. The reference range was not used to interpr et this result as zaida l/abnormal. [facility] [id number] 19:45:00 Test Item Value Reference Range Interpretation Comments Alk Phos (test code = Alk Phos) 54 39-136 [facility]2015-12-16 19:45:00 Test Item Value Reference Range Interpretation Comments Bili Total (test code = Bili Total) 1.0 0.2-1.3 [facility]2015-12-16 19:45:00 Test Item Value Reference Range Interpretation Comments ALT (test code = ALT) 56 See_Comment [Auto mated message] The system which ge nerated this result transmit cesar reference range : <=65. The reference range was not used to interpr et this result as zaida l/abnormal. [facility]2015-12-16 19:45:00 Test Item Value Reference Range Interpretation Comments Albumin Lvl (test code = Albumin Lvl) 3.9 3.5-5.0 [facility]2015-12-16 19:45:00 Test Item Value Reference Range Interpretation Comments Total Protein (test code = Total 8.7 6.4-8.4 Protein) [facility]2015-12-16 19:45:00 Test Item Value Reference Range Interpretation Comments A/G Ratio (test code = A/G Ratio) 0.8 0.7-1.6 [facility]2015-12-16 19:45:00 Test Item Value Reference Range Interpretation Comments Globulin (test code = Globulin) 4.8 2.0-4.0 [facility]2015-12-16 19:45:00 Test Item Value Reference Range Interpretation Comments B/C Ratio (test code = B/C Ratio) 14 6-25 [place] [id number] 19:45:00 Test Item Value Reference Range Interpretation Comments Lactic Acid Lvl (test code = Lactic 1.9 0.5-2.2 Acid Lvl) [facility] [id number] 19:45:00 Test Item Value Reference Range Interpretation Comments INR (test code = INR) 1.07 0.85-1.17 [place] [id number] 19:45:00 Test Item Value Reference Range Interpretation Comments PTT (test code = PTT) 30.0 s 22.9-35.8 [place] [id number] 19:45:00 Test Item Value Reference Range Interpretation Comments PT (test code = PT) 14.2 s 12.0-14.7 [facility] Re[id number] 19:45:00 Test Item Value Reference Range Interpretation Comments Sed Rate (test code = 15 See_Comment [Auto mated message] The Sed Rate) system which ge nerated this result transmit cesar reference range : <=15. The reference range was not used to interpr et this result as zaida l/abnormal. [facility] ResourcesBewzjakOXYOWJSDWN1498-01-11 19:45:00 Test Item Value Reference Range Interpretation Comments Prealbumin (test code = Prealbumin) 12.0 18.0-45.0 [facility] [id number] 19:45:00 Test Item Value Reference Range Interpretation Comments Hgb A1C (test code = Hgb A1C) 6.7 [facility] [id number] 19:45:00 Test Item Value Reference Range Interpretation Comments AST (test code = AST) 44 See_Comment [Auto mated message] The system which ge nerated this result transmit cesar reference range : <=37. The reference range was not used to interpr et this result as zaida l/abnormal. [facility] [employer] [id number] 19:45:00 Test Item Value Reference Range Interpretation Comments Alk Phos (test code = Alk Phos) 54 39-136 [facility] [employer] [id number] 19:45:00 Test Item Value Reference Range Interpretation Comments Bili Total (test code = Bili Total) 1.0 0.2-1.3 [facility] [id number] 19:45:00 Test Item Value Reference Range Interpretation Comments ALT (test code = ALT) 56 See_Comment [Auto mated message] The system which ge nerated this result transmit cesar reference range : <=65. The reference range was not used to interpr et this result as zaida l/abnormal. [facility] [employer] [id number] 19:45:00 Test Item Value Reference Range Interpretation Comments Albumin Lvl (test code = Albumin Lvl) 3.9 3.5-5.0 [facility] [id number] 19:45:00 Test Item Value Reference Range Interpretation Comments Total Protein (test code = Total 8.7 6.4-8.4 Protein) [facility] [id number] 19:45:00 Test Item Value Reference Range Interpretation Comments A/G Ratio (test code = A/G Ratio) 0.8 0.7-1.6 [facility]icsannCHE[facility] [id number] 19:45:00 Test Item Value Reference Range Interpretation Comments Globulin (test code = Globulin) 4.8 2.0-4.0 [facility] [id number] 19:45:00 Test Item Value Reference Range Interpretation Comments B/C Ratio (test code = B/C Ratio) 14 6-25 [facility]ics[facility]CHE[facility] [id number] 19:45:00 Test Item Value Reference Range Interpretation Comments Lactic Acid Lvl (test code = Lactic 1.9 0.5-2.2 Acid Lvl) [facility]icsDgwarzjORAGPLHJUR3218-13-78 19:45:00 Test Item Value Reference Range Interpretation Comments INR (test code = INR) 1.07 0.85-1.17 [facility] FqzadrkNLZPFMAQVO4592-55-03 19:45:00 Test Item Value Reference Range Interpretation Comments PTT (test code = PTT) 30.0 s 22.9-35.8 [facility] [id number] 19:45:00 Test Item Value Reference Range Interpretation Comments PT (test code = PT) 14.2 s 12.0-14.7 [facility] ClinicsZxayxntOZCALMCQMH4780-01-10 19:45:00 Test Item Value Reference Range Interpretation Comments Sed Rate (test code = 15 See_Comment [Auto mated message] The Sed Rate) system which ge nerated this result transmit cesar reference range : <=15. The reference range was not used to interpr et this result as zaida l/abnormal. [facility] Cl[id number] 19:45:00 Test Item Value Reference Range Interpretation Comments Prealbumin (test code = Prealbumin) 12.0 18.0-45.0 [facility]SPE[facility] [id number] 19:45:00 Test Item Value Reference Range Interpretation Comments Hgb A1C (test code = Hgb A1C) 6.7 [facility] [id number] 18:18:00 Test Item Value Reference Range Interpretation Comments UA Bacteria (test code = None Seen (02/16/15 UA Bacteria) 12:18 PM) [facility] [id number] 18:18:00 Test Item Value Reference Range Interpretation Comments UA RBC (test code = 0-2 /HPF See_Comment [Automa cesar message] The UA RBC) system which ge nerated this result tra nsmitted reference range : <=2. The reference range was not used to interpr et this result as zaida l/abnormal. [facility] [id number] 18:18:00 Test Item Value Reference Range Interpretation Comments UA WBC (test code = UA WBC) 0-2 /HPF [facility] [id number] 18:18:00 Test Item Value Reference Range Interpretation Comments UA Urobilinogen (test code = UA 1.0 0.1-1.0 Urobilinogen) [facility] [id number] 18:18:00 Test Item Value Reference Range Interpretation Comments UA Blood (test code = Negative (02/16/15 12:18 UA Blood) PM) [facility] [id number] 18:18:00 Test Item Value Reference Range Interpretation Comments UA Bili (test code = Negative *NA*(02/16/15 UA Bili) 12:18 PM) [facility] [id number] 18:18:00 Test Item Value Reference Range Interpretation Comments UA Ketones (test code Negative *NA*(02/16/15 = UA Ketones) 12:18 PM) [facility] [id number] 18:18:00 Test Item Value Reference Range Interpretation Comments UA Glucose (test code Negative (02/16/15 = UA Glucose) 12:18 PM) [facility] [id number] 18:18:00 Test Item Value Reference Range Interpretation Comments UA Mucus (test code = None Seen (02/16/15 UA Mucus) 12:18 PM) [facility] [id number] 18:18:00 Test Item Value Reference Range Interpretation Comments UA Protein (test code Negative (02/16/15 = UA Protein) 12:18 PM) [facility] [id number] 18:18:00 Test Item Value Reference Range Interpretation Comments UA pH (test code = UA pH) 6.0 1 5.0-8.0 [facility] [id number] 18:18:00 Test Item Value Reference Range Interpretation Comments UA Color (test code = Yellow *NA*(02/16/15 UA Color) 12:18 PM) [facility] [id number] 18:18:00 Test Item Value Reference Range Interpretation Comments UA Spec Grav (test code = UA Spec 1.025 1 Grav) [facility] [id number] 18:18:00 Test Item Value Reference Range Interpretation Comments UA Turbidity (test code = Clear (02/16/15 UA Turbidity) 12:18 PM) [facility] [id number] 18:18:00 Test Item Value Reference Range Interpretation Comments UA Sq Epi (test code = None Seen (02/16/15 UA Sq Epi) 12:18 PM) [facility] [id number] 18:18:00 Test Item Value Reference Range Interpretation Comments Micro? (test code = Performed (02/16/15 12:18 Micro?) PM) [facility] [id number] 18:18:00 Test Item Value Reference Range Interpretation Comments UA Leuk Est (test Negative (02/16/15 12:18 code = UA Leuk Est) PM) [facility] [id number] 18:18:00 Test Item Value Reference Range Interpretation Comments UA Nitrite (test code Negative (02/16/15 = UA Nitrite) 12:18 PM) [facility] [id number] 18:18:00 Test Item Value Reference Range Interpretation Comments UA Bacteria (test code = None Seen (02/16/15 UA Bacteria) 12:18 PM) [facility] [id number] 18:18:00 Test Item Value Reference Range Interpretation Comments UA RBC (test code = 0-2 /HPF See_Comment [Automa cesar message] The UA RBC) system which ge nerated this result tra nsmitted reference range : <=2. The reference range was not used to interpr et this result as zaida l/abnormal. [facility] [id number] 18:18:00 Test Item Value Reference Range Interpretation Comments UA WBC (test code = UA WBC) 0-2 /HPF [facility] [id number] 18:18:00 Test Item Value Reference Range Interpretation Comments UA Urobilinogen (test code = UA 1.0 0.1-1.0 Urobilinogen) [facility] [id number] 18:18:00 Test Item Value Reference Range Interpretation Comments UA Blood (test code = Negative (02/16/15 12:18 UA Blood) PM) [facility] [id number] 18:18:00 Test Item Value Reference Range Interpretation Comments UA Bili (test code = Negative *NA*(02/16/15 UA Bili) 12:18 PM) [facility] [id number] 18:18:00 Test Item Value Reference Range Interpretation Comments UA Ketones (test code Negative *NA*(02/16/15 = UA Ketones) 12:18 PM) [facility] [id number] 18:18:00 Test Item Value Reference Range Interpretation Comments UA Glucose (test code Negative (02/16/15 = UA Glucose) 12:18 PM) [facility] [id number] 18:18:00 Test Item Value Reference Range Interpretation Comments UA Mucus (test code = None Seen (02/16/15 UA Mucus) 12:18 PM) [facility] [id number] 18:18:00 Test Item Value Reference Range Interpretation Comments UA Protein (test code Negative (02/16/15 = UA Protein) 12:18 PM) [facility] [id number] 18:18:00 Test Item Value Reference Range Interpretation Comments UA pH (test code = UA pH) 6.0 1 5.0-8.0 [facility] [id number] 18:18:00 Test Item Value Reference Range Interpretation Comments UA Color (test code = Yellow *NA*(02/16/15 UA Color) 12:18 PM) [facility] [id number] 18:18:00 Test Item Value Reference Range Interpretation Comments UA Spec Grav (test code = UA Spec 1.025 1 Grav) [facility] [id number] 18:18:00 Test Item Value Reference Range Interpretation Comments UA Turbidity (test code = Clear (02/16/15 UA Turbidity) 12:18 PM) [facility] [id number] 18:18:00 Test Item Value Reference Range Interpretation Comments UA Sq Epi (test code = None Seen (02/16/15 UA Sq Epi) 12:18 PM) [facility] [id number] 18:18:00 Test Item Value Reference Range Interpretation Comments Micro? (test code = Performed (02/16/15 12:18 Micro?) PM) [facility] [id number] 18:18:00 Test Item Value Reference Range Interpretation Comments UA Leuk Est (test Negative (02/16/15 12:18 code = UA Leuk Est) PM) [facility] [id number] 18:18:00 Test Item Value Reference Range Interpretation Comments UA Nitrite (test code Negative (02/16/15 = UA Nitrite) 12:18 PM) [facility]
[2022-01-30] MEDS ORDERED: HYDROMORPHONE HCL 1 MG/ML INJ ONE ×2 (17:50→18:22)
[2022-01-30 18:08] LABS: Hematocrit 34.7 % (39.6-49.0); Lymphocytes % 8.9 % (15.3-44.8); MCV 75.8 fL (80-100); MPV 7.2 fL (7.6-11.3); RBC Red Blood Cell Count 4.57 M/uL (4.33-5.43)
[2022-01-30 18:16] LABS: Protime INR 1.36
[2022-01-30] MEDS ORDERED: NA CHLORIDE 0.9% 1,000 ML ONE (18:23)
[2022-01-30] MEDS ORDERED: DIAZEPAM 10 MG/2 ML INJ SYRINGE ONE (18:23)
--- NOTE | 2022-01-30 19:12 | RAD REPORT ---
EXAM DESCRIPTION: RAD - Chest Single View - 01/30/2022 6:42 pm CLINICAL HISTORY: upper abdomen pain Chest pain. COMPARISON: [facility] Protocol dated 12/25/2021 FINDINGS: Portable technique limits examination quality. Linear atelectasis is present in the right lung base. The lungs are otherwise clear. The heart is nor mal in size. Tortuous thoracic aorta is present.
[2022-01-30 19:43] LABS: Blood Morphology Comment NOT SEEN (NOT SEEN); Platelet Estimate INCR
--- NOTE | 2022-01-30 20:15 | RAD REPORT ---
EXAM DESCRIPTION: MRI - Lumbar Spine Wo Con- 01/30/2022 7:46 pm CLINICAL HISTORY: pain Pain and radiculopathy COMPARISON: [facility] Protocol dated 12/25/2021 FINDINGS: Vertebral body heights are within normal limits. No aggressive marrow pattern is observed. No fracture is suspected. The conus medullaris terminates at a normal level. L1-2 level: Mild posterior disc bulge with mild facet hypertrophy. No significant canal or foraminal stenosis. L2-3 level: Mild facet and ligamentum flavum hypertrophy. L3-4 level: Moderate posterior disc bulge is seen with significant facet and ligament flavum hypertro phy. The findings result in severe canal stenosis. Both lateral recesses are narrowed. Mild narrowing of both exit foramina also seen. L4-5 level: Postsurgical changes are present. There is clumping of the cauda equina nerve roots at th is level. L5-S1 level: Postsurgical changes are present with large laminectomy defect. Clumping of nerve roots at this level noted. IMPRESSION: Severe canal stenosis centrally at L3-4. Postsurgical changes are noted at L4-5 and L5-S1 with nerve root clumping seen of the cauda equina li mary indicating postoperative arachnoiditis.
[2022-01-30] MEDS ORDERED: FENTANYL CITR 100 MCG/2 ML ONE ×3 (20:38→23:14)
[2022-01-30 21:04] LABS: Albumin 2.6 g/dL (3.4-5.0); Bilirubin Direct 0.2 mg/dL (0-0.2); Bilirubin Total 0.4 mg/dL (0.2-1.0)
--- NOTE | 2022-01-30 21:14 | RAD REPORT ---
EXAM DESCRIPTION: CT - Chest Abdomen Pelvis W Cont - 01/30/2022 8:50 pm CLINICAL HISTORY: Chest and abdomen pain. back pain, abdomen pain COMPARISON: No comparisons TECHNIQUE: Approximately 100 mL nonionic IV contrast was administered to the patient. All CT scans are performed using dose optimization technique as appropriate and may include automated exposure control or mA/KV adjustment according to patient size. FINDINGS: Mild diffuse emphysema is seen. There is a destructive bony process noted involving the majority of the T7 vertebral body which demon strates significant height loss as well as a significant portion of the T6 vertebral body extending i nto the posterior elements as well as the T8 vertebral body. Posterior aspect of the medial right T6, T7 and T8 ribs also involved. Abnormal paraspinal soft tissue is present surrounding this level agusto uring up to 3 cm anteriorly and 2 cm along the right paraspinal soft tissues. Moderate spinal canal i nvolvement is present at these levels with stenosis. The liver, spleen, pancreas, adrenal glands are normal. Small stones are present in both kidneys with out hydronephrosis. Significant stool is present throughout the colon. Enlarged lymphadenopathy is seen in both inguinal regions, greater on the left the largest measure up to 4 centimeters. IMPRESSION: Destructive bony process involving predominately T6-8 vertebral bodies, posterior elemen ts and posterior right-sided ribs as detailed. Significant pathologic fracture of the T7 noted. Spinal canal involvement/compromise is likely presen t from this process. Findings are favored to be neoplastic in origin. Spinal osteomyelitis or Mirza disease would be anoth er possibility.
[2022-01-30] MEDS ORDERED: POTASSIUM 25 MEQ EFFERV TAB ONE (21:51)
--- NOTE | 2022-01-30 22:04 | EDPHYS ---
Physician Documentation [facility] Name: Srikanth Hummel Age: 71 yrs Sex: Male : 1950 Arrival Date: 01/30/2022 Time: 17:22 Bed 11 Private MD: Jean-Pierre Garvey ED Physician Dylan Grimes HPI: 01/30 17:35 This 71 yrs old Black Male presents to ER via Wheelchair with complaints of Back Pain. cp 17:35 The patient presents with pain that is acute, with no known mechanism of injury. cp 17:35 The symptoms are located in the low back area and mid back area. Onset: The cp symptoms/episode began/occurred 1 month(s) ago. The pain radiates to the abdomen. 17:35 Associated signs and symptoms: Pertinent negatives: chest pain, fever, incontinence, cp urinary retention, numbness and/or weakness of legs, saddle anesthesia. The problem was sustained from unknown cause. 17:35 Patient reports he was evaluated and sent to ED for MRI of thoracic and lumbar spine by cp DR Garvey after being seen by DR Wade today. Patient was told back pain is not caused by pulmonary issue. Patient denies trauma. Reports pain has been increasing and worsening over past 1 month. Historical: - Allergies: 17:29 No Known Allergies; ld1 - PMHx: 17:29 diabetes mellitus; Hypertensive disorder; ld1 - PSHx: 17:29 left leg amputation; ld1 - Immunization history:: Adult Immunizations up to date, Client reports receiving the 2nd dose of the Covid vaccine. - Social history:: Smoking status: Patient denies any tobacco usage or history of. Patient/guardian denies using alcohol. ROS: 17:40 Abdomen/GI: Positive for abdominal pain, of the right upper quadrant and left upper cp quadrant, Negative for vomiting, diarrhea, constipation, black/tarry stool, rectal bleeding, bowel incontinence. 17:40 Eyes: Negative for injury, pain, redness, and discharge. cp 17:40 Constitutional: Negative for body aches, chills, fever, poor PO intake. 17:40 Cardiovascular: Negative for chest pain, edema, palpitations. 17:40 Respiratory: Negative for cough, shortness of breath, wheezing. 17:40 Back: Positive for pain at rest, pain with movement, of the low back area and mid back area. 17:40 : Negative for urinary symptoms, difficulty urinating, bladder incontinence, cp testicular pain 17:40 Skin: Negative for rash. 17:40 Neuro: Negative for altered mental status, dizziness, headache, numbness, weakness. 17:40 All other systems are negative. Exam: 17:45 Constitutional: The patient appears in no acute distress, alert, awake, cp non-diaphoretic, non-toxic, well developed, well nourished, in obvious pain. 17:45 Head/Face: Normocephalic, atraumatic. cp 17:45 Eyes: Periorbital structures: appear normal, Conjunctiva: normal, no exudate, no injection, Sclera: no appreciated abnormality, Lids and lashes: appear normal, bilaterally. 17:45 ENT: External ear(s): are unremarkable, Nose: is normal, Mouth: Lips: moist, Oral mucosa: moist, Posterior pharynx: Airway: no evidence of obstruction, patent, swelling, is not appreciated, erythema, is not appreciated. 17:45 Neck: ROM/movement: is normal, is supple, without pain, no range of motions limitations, no meningismus. 17:45 Chest/axilla: Inspection: normal, Palpation: is normal, no crepitus, no tenderness. 17:45 Cardiovascular: Rate: normal, Rhythm: regular, JVD: is not appreciated. 17:45 Respiratory: the patient does not display signs of respiratory distress, Respirations: normal, no use of accessory muscles, no retractions, labored breathing, is not present, Breath sounds: are clear throughout, no decreased breath sounds, no stridor, no wheezing. 17:45 Abdomen/GI: Inspection: abdomen appears normal, Bowel sounds: active, all quadrants, Palpation: soft, in all quadrants, moderate abdominal tenderness, in the right upper quadrant and left upper quadrant, rebound tenderness, is not appreciated, voluntary guarding, is elicited in the right upper quadrant and left upper quadrant. 17:45 Back: pain, that is severe, of the thoracic area and upper lumbar area, ROM is painful, with all movement. 17:45 Musculoskeletal/extremity: Extremities: left below the knee amputation, the right leg and left leg Sensation intact. 17:45 Skin: cellulitis, is not appreciated, no rash present. 17:45 Neuro: Orientation: to person, place \T\ time. Mentation: is normal, Motor: moves all fours, no focal deficits, Sensation: is normal, Gait: is unsteady, needs assistance. 18:09 ECG was reviewed by the Attending Physician. cp Vital Signs: 17:30 BP 146 / 77; Pulse 89; Resp 20; Temp 98.9(O); Pulse Ox 100% on R/A; Weight 104.33 kg; ld1 Height 5 ft. 11 in. (180.34 cm); Pain 10/10; 18:30 BP 128 / 81; Pulse 92; Resp 18; Pulse Ox 100% on R/A; em6 19:30 BP 144 / 78; Pulse 86; Resp 18; Pulse Ox 100% on R/A; em6 21:30 BP 135 / 83; Pulse 96; Resp 18; Pulse Ox 100% on R/A; em6 22:00 BP 136 / 72; Pulse 99; Resp 18; Pulse Ox 100% on R/A; em6 23:00 BP 132 / 73; Pulse 98; Resp 18; Temp 98.2; Pulse Ox 97% ; Pain 10/10; pf1 01/31 00:00 BP 121 / 73; Pulse 88; Resp 18; Temp 98; Pulse Ox 96% ; Pain 10/10; pf1 01:00 BP 134 / 73; Pulse 95; Resp 18; Temp 98.1; Pulse Ox 97% ; Pain 10/10; pf1 02:00 BP 114 / 68; Pulse 95; Resp 20; Temp 98.9; Pulse Ox 97% ; Pain 10/10; pf1 02:50 BP 126 / 69; Pulse 94; Resp 17; Temp 98.5; Pulse Ox 98% ; Pain 8/10; pf1 01/30 17:30 Body Mass Index 32.08 (104.33 kg, 180.34 cm) ld1 MDM: 01/30 17:27 Patient medically screened. cp 18:30 Differential diagnosis: Fatigue Fracture Neoplasm Osteomyelitis ruptured disc, cp Ureterolithiasis vertebral fracture, sepsis. 21:35 Physician consultation: Jean-Pierre Garvey MD left message on voicemail. cp 21:55 Physician consultation: Jean-Pierre Garvey MD was called at 21:56, left message on voicemail. cp 01/31 00:00 Data reviewed: vital signs, nurses notes, lab test result(s), EKG, radiologic studies, CT scan, MRI, plain films. 00:00 Test interpretation: by ED physician or midlevel provider: ECG, plain radiologic studies. Counseling: I had a detailed discussion with the patient and/or guardian regarding: the historical points, exam findings, and any diagnostic results supporting the discharge/admit diagnosis, lab results, radiology results, the need to transfer to another facility, for higher level of care, [facility] does not immediately have the required specialist. 01:58 Physician consultation: was contacted at 01:47, regarding regarding transfer, to [facility]. patient's condition, spoke with DR Blackmon, neurosurgery. 01/30 17:47 Order name: Basic Metabolic Panel; Complete Time: 21:15 01/30 21:15 Interpretation: Normal except: NA 132; K 3.0; GLUC 159; GFR 81. 01/30 17:47 Order name: CBC with Diff; Complete Time: 19:53 01/30 19:53 Interpretation: Normal except: WBC 22.20; HGB 11.1; HCT 34.7; MCV 75.8; MCH 24.3; RDW cp 15.7; MPV 7.2; JJ% 85.2; LYM% 8.9; PLT 639; NEUT A 18.9. 01/30 17:47 Order name: LFT's; Complete Time: 21:15 01/30 21:15 Interpretation: Normal except: ALT 11; TP 11.0; ALB 2.6; GLOB 8.4; A/G 0.3. 01/30 17:47 Order name: PT-INR; Complete Time: 19:28 01/30 21:01 Interpretation: Reviewed. 01/30 18:18 Order name: Blood Culture Adult (2) 01/30 18:18 Order name: Lactate w/ 2H reflex if indic.; Complete Time: 21:57 01/30 23:53 Interpretation: Abnormal: LAC 2.2. 01/30 18:18 Order name: Procalcitonin; Complete Time: 23:52 01/30 23:53 Interpretation: Normal except: Procalcitonin 0.09. 01/30 18:18 Order name: Urine Microscopic Only; Complete Time: 23:52 01/30 23:53 Interpretation: Normal except: URBC 21-50; HYAL 10-20. cp 01/30 19:43 Order name: Manual Differential; Complete Time: 19:53 EDMS 01/30 23:54 Interpretation: Normal except: SEGS 84; LYM 7. cp 01/30 20:31 Order name: ESR; Complete Time: 21:15 cp 01/30 21:15 Interpretation: Abnormal: SED 49. cp 01/30 20:38 Order name: C-Reactive Protein; Complete Time: 21:15 EDMS 01/30 21:15 Interpretation: Abnormal: C-REACTIVE PROT 118.00. cp 01/30 22:14 Order name: SARS RAPID; Complete Time: 23:52 mw2 01/30 22:16 Order name: CREATININE WHOLE BLOOD; Complete Time: 23:52 EDMS 01/30 17:29 Order name: MRI Lumbar Spine wo Con; Complete Time: 20:27 cp 01/30 23:57 Interpretation: Report reviewed. 01/30 18:18 Order name: XRAY Chest (1 view); Complete Time: 19:28 01/30 19:08 Order name: CT Chest, Abdomen, Pelvis - W/Contrast; Complete Time: 21:30 01/30 22:58 Order name: Urine Dipstick-Ancillary; Complete Time: 23:52 EDMS 01/30 23:54 Interpretation: Normal except: UKET 1+; UBLD 2+; UPROT 3+. 01/31 00:22 Order name: Lactate Sepsis 2 HR Follow-up; Complete Time: 01:44 EDMS 01/30 17:47 Order name: EKG; Complete Time: 17:48 01/30 17:47 Order name: Cardiac monitoring; Complete Time: 18:09 01/30 17:47 Order name: EKG - Nurse/Tech; Complete Time: 18:09 01/30 17:47 Order name: IV Saline Lock; Complete Time: 18:09 01/30 17:47 Order name: Labs collected and sent; Complete Time: 18:09 01/30 17:47 Order name: O2 Per Protocol; Complete Time: 18:09 01/30 17:47 Order name: O2 Sat Monitoring; Complete Time: 18:09 01/30 18:27 Order name: Labs - recollect needed: recollect green top; Complete Time: 20:25 bd EC/29 18:09 Rate is 121 beats/min. Rhythm is regular. DC interval is normal. QRS interval is cp normal. QT interval is normal. T waves are Inverted in lead aVR. Interpreted by me. Reviewed by me. Administered Medications: 17:50 Drug: Dilaudid (HYDROmorphone) 1 mg Route: IVP; Site: right antecubital; em6 18:20 Follow up: Response: No adverse reaction; RASS: Alert and Calm (0) em6 18:26 Drug: Diazepam 2 mg Route: IVP; Site: right antecubital; em6 22:56 Follow up: Response: No adverse reaction; RASS: Alert and Calm (0) em6 18:26 Drug: Dilaudid (HYDROmorphone) 1 mg Route: IVP; Site: right antecubital; em6 19:00 Follow up: Response: No adverse reaction; RASS: Alert and Calm (0) em6 20:39 Drug: fentaNYL (PF) 50 mcg Route: IVP; Site: right antecubital; em6 21:00 Follow up: Response: No adverse reaction; RASS: Alert and Calm (0) em6 20:40 Drug: NS 0.9% 500 ml Route: IV; Rate: bolus; Site: right antecubital; em6 21:30 Follow up: Response: No adverse reaction; IV Status: Completed infusion; IV Intake: em6 500ml 21:36 Drug: fentaNYL (PF) 50 mcg Route: IVP; Site: right antecubital; em6 22:00 Follow up: Response: No adverse reaction em6 22:31 Drug: Potassium Effervescent Tablet 50 mEq Route: PO; em6 22:58 Follow up: Response: No adverse reaction em6 22:31 Drug: Rocephin - (cefTRIAXone) 2 grams Route: IVPB; Infused Over: 30 mins; Site: right em6 antecubital; 23:00 Follow up: Response: No adverse reaction; IV Status: Completed infusion; IV Intake: em6 250ml 23:18 Drug: vancoMYCIN 1 grams Route: IVPB; Infused Over: 2 hrs; Site: right antecubital; em6 01/31 00:00 Follow up: Response: No adverse reaction pf1 01/30 23:20 Drug: fentaNYL (PF) 50 mcg Route: IVP; Site: right antecubital; pf1 01/31 00:20 Follow up: Response: Pain is unchanged, physician notified pf1 00:00 Drug: NS 0.9% 500 ml Route: IV; Rate: 100 ml/hr; Site: right antecubital; pf1 01:55 Drug: Dilaudid (HYDROmorphone) 2 mg Route: IVP; Site: right antecubital; pf1 03:00 Follow up: Response: Pain is decreased pf1 01:55 Drug: NS 0.9% 250 ml Route: IV; Rate: 250 ml/hr; Site: right antecubital; pf1 02:30 Follow up: IV Status: Completed infusion; IV Intake: 250ml pf1 Disposition Summary: 01/30/22 22:04 Transfer Ordered Reason: Higher level of care cp Condition: Stable cp Problem: new cp Symptoms: have improved cp Transfer Location: [facility](01/31/22 02:48) cp Accepting Physician: DRK. Verma(01/31/22 03:30) pf1 Diagnosis - Fracture of thoracic vertebra - concerning for osteomyelitis(01/31/22 02:48) cp - Other dorsalgia cp - Hypokalemia cp Forms: - Medication Reconciliation Form cp - SBAR form cp Signatures: Dispatcher [employer] EDMS Courtney Post Corey, PA PA cp Alethea Garnica, RN RN ld1 Linda Crenshaw RN RN em6 Maryjane reardon RN RN pf1 Corrections: (The following items were deleted from the chart) 01/30 18:11 17:35 The patient presents with pain that is chronic, with no known mechanism of cp injury, cp 19:30 19:29 Normal except: WBC 22.20; HGB 11.1; HCT 34.7; MCV 75.8; MCH 24.3. cp cp 19:46 18:22 Abdomen ordered. EDMS EDMS 19:53 19:30 Normal except: WBC 22.20; HGB 11.1; HCT 34.7; MCV 75.8; MCH 24.3; RDW 15.7; MPV cp 7.2; JJ% 85.2; LYM% 8.9; PLT 639. cp 21:50 20:32 C-REACTIVE PROTEIN+C.LAB.BRZ ordered. EDMS EDMS 01/31 02:48 01/30 22:04 Doctor cp cp 01/31 02:48 01/30 22:04 [facility] cp cp 01/31 02:48 01/30 22:04 Fracture of thoracic vertebra cp cp 01/31 03:30 02:48 DRK. Verma cp pf1 :01/29 17:40 Constitutional: Negative for body aches, chills, fever, poor PO intake, cp cp 01/31 23:01/29 17:40 Cardiovascular: Negative for chest pain, edema, palpitations, cp cp 01/31 23:01/29 17:40 Respiratory: Negative for cough, shortness of breath, wheezing, cp cp 01/31 23:01/29 17:40 Back: Positive for pain at rest, pain with movement, of the low back area cp and mid back area, cp 01/31 23:01/29 17:40 Abdomen/GI: Positive for abdominal pain, of the right upper quadrant and cp left upper quadrant, Negative for vomiting, diarrhea, constipation, cp 01/31 23:01/29 17:40 Eyes: Negative for injury, pain, redness, and discharge, cp cp
--- NOTE | 2022-01-30 22:04 | ER ---
Nurse's Notes [facility] Name: Srikanth Hummel Age: 71 yrs Sex: Male : 1950 Arrival Date: 01/30/2022 Time: 17:22 Bed 11 Private MD: Jean-Pierre Garvey Diagnosis: Fracture of thoracic vertebra-concerning for osteomyelitis;Other dorsalgia;Hypokalemia Presentation: 01/30 17:29 Chief complaint: Patient states: Pain in back X 1 month. I have had a CT scan recently ld1 "thought it was a kidney stone.". Coronavirus screen: At this time, the client does not indicate any symptoms associated with coronavirus-19. Ebola Screen: No symptoms or risks identified at this time. Initial Sepsis Screen: Does the patient meet any 2 criteria? No. Patient's initial sepsis screen is negative. Does the patient have a suspected source of infection? No. Patient's initial sepsis screen is negative. Risk Assessment: Do you want to hurt yourself or someone else? Patient reports no desire to harm self or others. Onset of symptoms was January 30, 2022. 17:29 Method Of Arrival: Wheelchair ld1 17:29 Acuity: BRENDAN 3 ld1 Triage Assessment: 17:30 General: Appears in no apparent distress. uncomfortable, Behavior is cooperative, ld1 appropriate for age, anxious. Pain: Complains of pain in back Pain does not radiate. Pain currently is 10 out of 10 on a pain scale. Quality of pain is described as. EENT: No signs and/or symptoms were reported regarding the EENT system. Neuro: Level of Consciousness is awake, alert, obeys commands, Oriented to person, place, time, situation. Cardiovascular: Capillary refill < 3 seconds Patient's skin is warm and dry. Respiratory: Airway is patent Respiratory effort is even, unlabored. GI: Abdomen is flat, non-distended. : No signs and/or symptoms were reported regarding the genitourinary system. Derm: No signs and/or symptoms reported regarding the dermatologic system. Musculoskeletal: No signs and/or symptoms reported regarding the musculoskeletal system. Historical: - Allergies: 17: No Known Allergies; ld1 - PMHx: 17:29 diabetes mellitus; Hypertensive disorder; ld1 - PSHx: 17:29 left leg amputation; ld1 - Immunization history:: Adult Immunizations up to date, Client reports receiving the 2nd dose of the Covid vaccine. - Social history:: Smoking status: Patient denies any tobacco usage or history of. Patient/guardian denies using alcohol. Screenin:50 Abuse screen: Denies threats or abuse. Nutritional screening: No deficits noted. em6 Tuberculosis screening: No symptoms or risk factors identified. Fall Risk IV access (20 points). Ambulatory Aid- None/Bed Rest/Nurse Assist (0 pts). Gait- Impaired (20 pts.). Mental Status- Oriented to own ability (0 pts). Total Talavera Fall Scale indicates Low Risk Score (25-44 pts). Fall prevention measures have been instituted. Side Rails Up X 2 Placed close to Nursing Station Frequent Obs/Assesments occuring Family Present and informed to notify staff if they need to leave bedside As available Patient and Family Educated on Fall Prevention Program and strategies. Assessment: 17:50 General: Appears uncomfortable, Behavior is cooperative. Pain: Complains of pain in em6 abdomen and mid back area and low back area and back Pain radiates to abdomen and back Pain currently is 10 out of 10 on a pain scale. Quality of pain is described as radiating, sharp, shooting, stabbing. Neuro: Level of Consciousness is awake, alert, obeys commands, Oriented to person, place, time, situation. Cardiovascular: Patient's skin is warm and dry. Rhythm is sinus tachycardia. Respiratory: Airway is patent Respiratory effort is even, unlabored, Respiratory pattern is regular, symmetrical, Breath sounds are clear bilaterally. GI: Abdomen is non-distended, Bowel sounds present X 4 quads. Abd is soft and non tender X 4 quads. : No signs and/or symptoms were reported regarding the genitourinary system. EENT: No signs and/or symptoms were reported regarding the EENT system. Derm: No signs and/or symptoms reported regarding the dermatologic system. Musculoskeletal: Amputation of below the knee amputation. 19:00 Reassessment: No changes from previously documented assessment. Patient and/or family em6 updated on plan of care and expected duration. Pain level reassessed. 20:14 Reassessment: No changes from previously documented assessment. Patient and/or family tw5 updated on plan of care and expected duration. Pain level reassessed. 20:14 General: called Juliana in Lab to collect second set of blood cultures. Tech at bedside tw5 collecting first set. . 20:25 Reassessment: Patient is alert, oriented x 3, equal unlabored respirations, skin em6 warm/dry/pink. notified provider of pain. new order given. Pain: Complains of pain in left upper quadrant and right upper quadrant and abdomen and mid back area and low back area and back Pain currently is 10 out of 10 on a pain scale. Quality of pain is described as sharp, shooting, stabbing. 21:25 Reassessment: No changes from previously documented assessment. Patient and/or family em6 updated on plan of care and expected duration. Pain level reassessed. Patient is alert, oriented x 3, equal unlabored respirations, skin warm/dry/pink. provider notified of the pain. new order given Patient states symptoms have not improved. 22:25 Reassessment: No changes from previously documented assessment. Patient and/or family em6 updated on plan of care and expected duration. Pain level reassessed. Patient is alert, oriented x 3, equal unlabored respirations, skin warm/dry/pink. 23:20 Reassessment: No changes from previously documented assessment. Patient and/or family em6 updated on plan of care and expected duration. Pain level reassessed. Patient is alert, oriented x 3, equal unlabored respirations, skin warm/dry/pink. provider notified of pain no new order Patient states symptoms have not improved. 01/31 00:00 General: Appears in no apparent distress. uncomfortable, well groomed, well developed, pf1 Behavior is cooperative, restless. 00:00 Pain: Complains of pain in Patient C/O mid bilateral back area that radiates to left pf1 thoracic region,onset 1 month. Patient stated fell out of bed 2 days ago. Patient denies any head injury. Neuro: No deficits noted. Cardiovascular: No deficits noted. Capillary refill < 3 seconds Patient's skin is warm and dry. Respiratory: No deficits noted. GI: No deficits noted. : No signs and/or symptoms were reported regarding the genitourinary system. EENT: No signs and/or symptoms were reported regarding the EENT system. Derm: No signs and/or symptoms reported regarding the dermatologic system. Musculoskeletal: Amputation of Patient has a below the knee amputation.. 02:50 General: Patient report given to Roque Huff with [facility]. Patient being pf1 transferred to [facility] at [facility].. Vital Signs: 01/30 17:30 BP 146 / 77; Pulse 89; Resp 20; Temp 98.9(O); Pulse Ox 100% on R/A; Weight 104.33 kg; ld1 Height 5 ft. 11 in. (180.34 cm); Pain 10/10; 18:30 BP 128 / 81; Pulse 92; Resp 18; Pulse Ox 100% on R/A; em6 19:30 BP 144 / 78; Pulse 86; Resp 18; Pulse Ox 100% on R/A; em6 21:30 BP 135 / 83; Pulse 96; Resp 18; Pulse Ox 100% on R/A; em6 22:00 BP 136 / 72; Pulse 99; Resp 18; Pulse Ox 100% on R/A; em6 23:00 BP 132 / 73; Pulse 98; Resp 18; Temp 98.2; Pulse Ox 97% ; Pain 10/10; pf1 01/31 00:00 BP 121 / 73; Pulse 88; Resp 18; Temp 98; Pulse Ox 96% ; Pain 10/10; pf1 01:00 BP 134 / 73; Pulse 95; Resp 18; Temp 98.1; Pulse Ox 97% ; Pain 10/10; pf1 02:00 BP 114 / 68; Pulse 95; Resp 20; Temp 98.9; Pulse Ox 97% ; Pain 10/10; pf1 02:50 BP 126 / 69; Pulse 94; Resp 17; Temp 98.5; Pulse Ox 98% ; Pain 8/10; pf1 01/30 17:30 Body Mass Index 32.08 (104.33 kg, 180.34 cm) ld1 ED Course: 01/30 17:22 Patient arrived in ED. am2 17:22 Jean-Pierre Garvey MD is Private Physician. am2 17:23 Walter Bess PA is PHCP. cp 17:23 Dylan Grimes MD is Attending Physician. cp 17:27 Linda Crenshaw, GODWIN is Primary Nurse. em6 17:29 Triage completed. ld1 17:30 Arm band placed on right wrist. ld1 17:50 Bed in low position. Call light in reach. Side rails up X 1. Pulse ox on. NIBP on. Warm em6 blanket given. 17:50 Inserted saline lock: 20 gauge in right antecubital area, using aseptic technique. em6 Blood collected. 18:09 Basic Metabolic Panel Sent. em6 18:09 CBC with Diff Sent. em6 18:09 LFT's Sent. em6 18:09 PT-INR Sent. em6 18:42 XRAY Chest (1 view) In Process Unspecified. EDMS 19:48 MRI Lumbar Spine wo Con In Process Unspecified. EDMS 20:52 CT Chest, Abdomen, Pelvis - W/Contrast In Process Unspecified. EDMS 22:12 initiated a transfer with Emy from [facility]. mw2 22:31 [facility] denied due to capacity. mw2 22:31 SARS RAPID Sent. em6 22:33 attempting to initiate a transfer with [facility] still on hold. mw2 23:03 still on hold with [facility] for 30 minutes. mw2 23:41 was on hold for 1 hour and 4 minutes with [facility] still no mw2 answer. 23:43 initiated a transfer with Te from [facility]. mw2 23:58 [facility] denied due to capacity. mw2 23:58 attempted to initiated a transfer with [facility] was on hold for mw2 25 minutes phone line hung up. 01/31 00:26 attempted to initiate to [facility]. mw2 00:30 [facility] denied due to capacity. mw2 00:33 attempted to initiate with [facility]. mw2 01:24 finally was able to initiate a transfer with Ruby Lim from [place] [address] [facility] [place]. 01:42 Connected Walter KHAN with the Doctor from [facility]. mw2 01:48 administrative approval given by Ruby Lim/ patient has been accepted to [address] to the Neuro floor/ Dr. Verma accepted the patient in transfer/report to be called to [phone]. 02:00 No provider procedures requiring assistance completed. pf1 02:50 Patient transferred, IV remains in place. pf1 Administered Medications: 01/30 17:50 Drug: Dilaudid (HYDROmorphone) 1 mg Route: IVP; Site: right antecubital; em6 18:20 Follow up: Response: No adverse reaction; RASS: Alert and Calm (0) em6 18:26 Drug: Diazepam 2 mg Route: IVP; Site: right antecubital; em6 22:56 Follow up: Response: No adverse reaction; RASS: Alert and Calm (0) em6 18:26 Drug: Dilaudid (HYDROmorphone) 1 mg Route: IVP; Site: right antecubital; em6 19:00 Follow up: Response: No adverse reaction; RASS: Alert and Calm (0) em6 20:39 Drug: fentaNYL (PF) 50 mcg Route: IVP; Site: right antecubital; em6 21:00 Follow up: Response: No adverse reaction; RASS: Alert and Calm (0) em6 20:40 Drug: NS 0.9% 500 ml Route: IV; Rate: bolus; Site: right antecubital; em6 21:30 Follow up: Response: No adverse reaction; IV Status: Completed infusion; IV Intake: em6 500ml 21:36 Drug: fentaNYL (PF) 50 mcg Route: IVP; Site: right antecubital; em6 22:00 Follow up: Response: No adverse reaction em6 22:31 Drug: Potassium Effervescent Tablet 50 mEq Route: PO; em6 22:58 Follow up: Response: No adverse reaction em6 22:31 Drug: Rocephin - (cefTRIAXone) 2 grams Route: IVPB; Infused Over: 30 mins; Site: right em6 antecubital; 23:00 Follow up: Response: No adverse reaction; IV Status: Completed infusion; IV Intake: em6 250ml 23:18 Drug: vancoMYCIN 1 grams Route: IVPB; Infused Over: 2 hrs; Site: right antecubital; em6 01/31 00:00 Follow up: Response: No adverse reaction pf1 01/30 23:20 Drug: fentaNYL (PF) 50 mcg Route: IVP; Site: right antecubital; pf1 01/31 00:20 Follow up: Response: Pain is unchanged, physician notified pf1 00:00 Drug: NS 0.9% 500 ml Route: IV; Rate: 100 ml/hr; Site: right antecubital; pf1 01:55 Drug: Dilaudid (HYDROmorphone) 2 mg Route: IVP; Site: right antecubital; pf1 03:00 Follow up: Response: Pain is decreased pf1 01:55 Drug: NS 0.9% 250 ml Route: IV; Rate: 250 ml/hr; Site: right antecubital; pf1 02:30 Follow up: IV Status: Completed infusion; IV Intake: 250ml pf1 Medication: 01/30 18:12 VIS not applicable for this client. em6 Intake: 21:30 IV: 500ml; Total: 500ml. em6 23:00 IV: 250ml; Total: 750ml. em6 01/31 02:30 IV: 250ml; Total: 1000ml. pf1 Outcome: 01/30 22:04 ER care complete, transfer ordered by MD. cp 01/31 02:50 Instructed on the need for transfer, Demonstrated understanding of instructions. pf1 02:50 Transferred by ground EMS to [facility], Transfer form completed. X-rays sent pf1 w/ patient. Note: Patient report given to GODWIN Perrin at [facility] ER. 02:50 Condition: stable pf1 03:30 Patient left the ED. pf1 Signatures: Dispatcher [employer] EDMS Walter Bess PA PA cp Moreno, Amanda am2 Sharmin Groves mw2 Aleteha Garnica RN RN ld1 Debra Jarquin tw5 Linda Crenshaw RN RN em6 Maryjane reardon RN RN pf1 Corrections: (The following items were deleted from the chart) 01/30 22:56 19:00 Response: No adverse reaction em6 em6 01/31 00:18 01/30 21:00 Reassessment: No changes from previously documented assessment. Patient em6 and/or family updated on plan of care and expected duration. Pain level reassessed. em6 01/31 00:18 01/30 22:00 Reassessment: No changes from previously documented assessment. Patient em6 and/or family updated on plan of care and expected duration. Pain level reassessed. em6 01/31 00:19 01/30 22:25 Reassessment: No changes from previously documented assessment. Patient em6 and/or family updated on plan of care and expected duration. Pain level reassessed. em6 01/31 00:01/30 20:25 Pain: Complains of pain in left upper quadrant and right upper quadrant and em6 abdomen and mid back area and low back area and back Pain currently is 10 out of 10 on a pain scale. Quality of pain is described as sharp, shooting, stabbing, em6 01/31 00:19 01/30 20:25 Reassessment: notified provider of pain. new order given em6 em6 01/31 00:01/30 21:25 Reassessment: No changes from previously documented assessment. Patient em6 and/or family updated on plan of care and expected duration. Pain level reassessed. provider notified of the pain. new order given Patient states symptoms have not improved. em6 01/31 00:01/30 23:58 attempted to initiated a transfer with [facility] was mw2 on hold for 25 minutes 2 01/31 03:27 03:25 Instructed on the need for transfer, Demonstrated understanding of instructions, pf1 pf1 03:25 Transferred by ground EMS to [facility], Transfer form completed. pf1 X-rays sent w/ patient. pf1 03: 03:25 Condition: stable pf1 pf1
[2022-01-30] MEDS ORDERED: CEFTRIAXONE 2000 MG/VIAL ONE (22:15)
[2022-01-30] MEDS ORDERED: VANCOMYCIN 1 GM/VIAL ONE (22:15)
[2022-01-30] MEDS ORDERED: NA CHLORIDE 0.9% 100 ML IV ONE (22:15)
[2022-01-30] MEDS ORDERED: NA CHLORIDE 0.9% 250 ML ONE (22:15)
[2022-01-30 22:58] LABS: Urine Blood 2+ (Negative); Urine Glucose Negative (Negative); Urine Protein 3+ (Negative); Urine pH 6.5 (5.0-7.0)
[2022-01-30 23:01] LABS: SARS-CoV-2 Antigen Rapid Res Negative (Negative)
[2022-01-30 23:51] LABS: Urine Mucus Slight /HPF (None Seen); Urine RBC 21-50 /HPF (None Seen)
[2022-01-31] MEDS ORDERED: HYDROMORPHONE HCL 2 MG/ML inj ONE (01:48)
[2022-01-31] MEDS ORDERED: NA CHLORIDE 0.9% 250 ML ONE (01:49)
[2022-01-31 03:51] VITALS: BP 126/69; TEMP 98.5; O2SAT 98
--- NOTE | 2022-01-31 16:26 | EKG ---
Test Date: 2022-01-30 Test Time: 18:04:34 Customer Service Coordinator: MEASUREMENT RESULTS: Intervals: Rate: 121 NE: 144 QRSD: 82 QT: 344 QTc: 488 [place]: P: 62 NE: 144 QRS: 19 T: 49 INTERPRETIVE STATEMENTS: Sinus tachycardia Otherwise normal ECG No previous ECG available for comparison Electronically Signed On 01-31-22 16:23:03 TOBACCO WRAPPING MACHINE TENDER by Blaise Keller
== END 2022-01-31 03:30 | disposition short-term general hospital (02) ==
LOC: ER 17:21
DX: S22.009A Unspecified fracture of unspecified thoracic vertebra, initial encounter for closed fracture (principal); E87.6 Hypokalemia; I10 Essential (primary) hypertension; E11.9 Type 2 diabetes mellitus without complications; Z20.822 Contact with and (suspected) exposure to COVID-19
CPT/HCPCS: 87040 ×2; 85025; 80048; 36415; 85610; 82565; 80076; 83605 ×2; 85652; 84145; 86140; 71260; 74177; 71045; 72148; 87811; Q9967; J3360; J3010 ×3; J3370; J1170 ×2; J7050; J7040; J0696; 81003; 81015; 93005

== ENCOUNTER 2022-04-13 10:30 | Observation (INO) | payer OTHER ==
[2022-04-13] MEDS ORDERED: MORPHINE 4 MG/ML SYR ONE (10:46)
--- OUTSIDE RECORDS SUMMARY | 2022-04-13 10:55 | XMS REPORT | Clinical Summary ---
:1950 Author Organization [facility] MD [facility] Address [address] [place] [address] Care Team Providers Name Role Phone Jean-Pierre Garvey MD Unavailable [phone] Allergies Not on File Medications Not on file Active Problems Not on file Encounters Date Type Specialty Care Team Description 03/08/2022 Ancillary Procedure Radiology Cancer 03/08/2022 Ancillary Procedure Radiology Cancer 03/08/2022 Ancillary Procedure Radiology Cancer 03/08/2022 Ancillary Procedure Radiology Cancer 02/19/2022 Ancillary Procedure Radiology Cancer 02/19/2022 Ancillary Procedure Radiology Cancer 02/19/2022 Ancillary Procedure Radiology Cancer 02/19/2022 Ancillary Procedure Radiology Cancer 02/19/2022 Ancillary Procedure Radiology Cancer 02/19/2022 Ancillary Procedure Radiology Cancer 02/19/2022 Ancillary Procedure Radiology Cancer 02/15/2022 Lab Requisition Andrzej Corona MD Clement, Karla Ziegler MD after 04/13/2021 Social History Tobacco Use Types Packs/Day Years Used Date Smoking Tobacco: Never Assessed Sex Assigned at Date Recorded Not on file Last Filed Vital Signs Not on file Plan of Treatment Health Maintenance Due Date Last Done Comments COVID-19 Vaccination Completed 03/29/2021, 01/31/2021, , Additional history exists Procedures Procedure Name Priority Date/Time Associated Diagnosis Comme nts OSI CT SPINE LUMBAR Routine 02/05/2022 1:41 PM Cancer Re sults for this GARMENT MANUFACTURER procedure are i n the results section. OSI CT SPINE Routine 02/05/2022 1:41 PM Cancer Results f or this THORACIC GARMENT MANUFACTURER procedure are i n the results section. OSI CT CHEST Routine 02/02/2022 1:41 PM Cancer Results f or this GARMENT MANUFACTURER procedure are i n the results section. OSI CT SPINE LUMBAR Routine 02/02/2022 1:41 PM Cancer Re sults for this GARMENT MANUFACTURER procedure are i n the results section. OSI CT SPINE Routine 02/02/2022 1:41 PM Cancer Results f or this THORACIC GARMENT MANUFACTURER procedure are i n the results section. OSI CHEST Routine 01/30/2022 3:27 PM Cancer Results f or this GARMENT MANUFACTURER procedure are i n the results section. OSI MRI SPINE Routine 01/30/2022 3:27 PM Cancer Results for this LUMBAR GARMENT MANUFACTURER procedure are i n the results section. OSI CT CHEST Routine 01/30/2022 3:26 PM Cancer Results f or this ABDOMEN PELVIS GARMENT MANUFACTURER procedure are in the results section. OSI CT ABDOMEN AND Routine 12/25/2021 3:27 PM Cancer Res ults for this PELVIS CDT procedure are i n the results section. OSI MRI LOWER EXT Routine 06/18/2021 1:40 PM Cancer Resu lts for this CDT procedure are i n the results section. after 04/13/[address] Spine Thoracic (02/05/2022 1:41 PM GARMENT MANUFACTURER)Only the most recent of2 results within the time period is included. Specimen (Source) Anatomical Location Collection Method / Collectio n Time Received Time / Laterality Volume Narrative Systemgenerated, Documentation - 022 1:41 PM GARMENT MANUFACTURER Study acquired at another institution. For comparison only. No MD Gamino originated interpretation requested or a vailable. Jean-Pierre Garvey MD IMG OUTSIDE IMAGE ORDERABLES OSI CT Spine Lumbar (02/05/2022 1:41 PM GARMENT MANUFACTURER)Only the most recent of2 results within the time period is included. Specimen (Source) Anatomical Location Collection Method / Collectio n Time Received Time / Laterality Volume Narrative Systemgenerated, Documentation - 022 1:42 PM GARMENT MANUFACTURER Study acquired at another institution. For comparison only. No Stevenson originated interpretation requested or a vailable. Jean-Pierre Garvey MD IMG OUTSIDE IMAGE ORDERABLES OSI CT Chest (02/02/2022 1:41 PM GARMENT MANUFACTURER) Specimen (Source) Anatomical Location Collection Method / Collectio n Time Received Time / Laterality Volume Narrative Systemgenerated, Documentation - 022 1:41 PM GARMENT MANUFACTURER Study acquired at another institution. For comparison only. No MD Gamino originated interpretation requested or a vailable. Jean-Pierre DE LA FUENTEG OUTSIDE IMAGE ORDERABLES OSI MRI SPINE LUMBAR (01/30/2022 3:27 PM GARMENT MANUFACTURER) Specimen (Source) Anatomical Location Collection Method / Collectio n Time Received Time / Laterality Volume Narrative Systemgenerated, Documentation - 023 3:27 PM GARMENT MANUFACTURER Study acquired at another institution. For comparison only. No MD Gamino originated interpretation requested or a vailable. Jean-Pierre DE LA FUENTEG OUTSIDE IMAGE ORDERABLES OSI Chest (01/30/2022 3:27 PM GARMENT MANUFACTURER) Specimen (Source) Anatomical Location Collection Method / Collectio n Time Received Time / Laterality Volume Narrative Systemgenerated, Documentation - 023 3:27 PM GARMENT MANUFACTURER Study acquired at another institution. For comparison only. No MD Gamino originated interpretation requested or a vailable. Jean-Pierre DE LA FUENTEG OUTSIDE IMAGE ORDERABLES OSI CT CHEST ABDOMEN PELVIS (01/30/2022 3:26 PM GARMENT MANUFACTURER) Specimen (Source) Anatomical Location Collection Method / Collectio n Time Received Time / Laterality Volume Narrative Systemgenerated, Documentation - 023 3:27 PM GARMENT MANUFACTURER Study acquired at another institution. For comparison only. No MD Gamino originated interpretation requested or a vailable. Jean-Pierre DE LA FUENTEG OUTSIDE IMAGE ORDERABLES OSI CT Abdomen and Pelvis (12/25/2021 3:27 PM CDT) Specimen (Source) Anatomical Location Collection Method / Collectio n Time Received Time / Laterality Volume Narrative Systemgenerated, Documentation - 023 3:27 PM GARMENT MANUFACTURER Study acquired at another institution. For comparison only. No MD Gamino originated interpretation requested or a vailable. Jean-Pierre OSUNA OUTSIDE IMAGE ORDERABLES OSI MRI Lower Ext (06/18/2021 1:40 PM CDT) Specimen (Source) Anatomical Location Collection Method / Collectio n Time Received Time / Laterality Volume Narrative Systemgenerated, Documentation - 022 1:41 PM GARMENT MANUFACTURER Study acquired at another institution. For comparison only. No MD Gamino originated interpretation requested or a vailable. Jean-Pierre Garvey MD IMG OUTSIDE IMAGE ORDERABLES after 04/13/2021 Insurance Payer Benefit Plan / Subscriber ID Effective Phone Address T ype Group Dates [facility] MEDICARE [id number] 2020-Prese [address] Medicare HEALTHCARE MEDICAID DUAL nt [place], [place] MEDICARE HMO [id number] SOLUTIONS Care Teams Collateral Clerk Relationship Specialty Start Date End Date Jean-Pierre Garvey PCP - External Primary Internal Medicine 02/06/22 MD Katherine Care Provider [address] [place], [place] [id number]
--- OUTSIDE RECORDS SUMMARY | 2022-04-13 11:20 | XMS REPORT | Continuity of Care Document ---
:1950 Author Organization [facility] t Address [address] [place] [address] Care Team Providers Name Role Phone Deuce Valentino MD Primary Care Physician CHINYERE LOZANO Attending Clinician Unavailable CHINYERE LOZANO Attending Clinician Unavailable Jean-Pierre Garvey Attending Clinician Unavailable Valentina Sherman Attending Clinician Unavailable Saul Emanuel Rahil Attending Clinician Unavailable [id number] Attending Clinician Unavailable LIZ MOSS Attending Clinician Unavailable LIZ MOSS Attending Clinician Unavailable DARLENE JUAN Attending Clinician Unavailable RAYO LOREDO Attending Clinician Unavailable Doctor Unassigned, [place] Attending Clinician Unavailable Deborah POWELL, Jessee Attending Clinician Chelsi POWELL, Naveen Attending Clinician Triny Elizondo RN Attending Clinician Unavailable JESSEE CABRERA Attending Clinician Unavailable Ezra Serra DO Attending Clinician Toñito POWELL, Kingsley Barone Attending Clinician Cj POWELL, Andrzej Cormier Attending Clinician Papa POWELL, Karla Ziegler Attending Clinician Unavailable Sydnee POWELL, Shoaib Attending Clinician Manohar POWELL, Edgar Attending Clinician Bran POWELL, Caridad Attending Clinician Anesthesiology Attending Clinician Unavailable Leida POWELL, Abhay Sheriff Attending Clinician Joanie Douglas MD Attending Clinician Camila POWELL, Bhavana Attending Clinician Clinic-Stv, Care Transition Attending Clinician Unavailable Padmini Castillo MD Attending Clinician MOHIT BROWN Attending Clinician Unavailable Betito POWELL, Deuce Chin Attending Clinician [phone] Anastasia Attending Clinician Unavailable Valentina Sherman Attending Clinician [phone] Mamadou Attending Clinician Unavailable Walter Velazquez RN Attending Clinician Unavailable Provider, [facility] Attending Clinician Unavailable POONAM PARKS Attending Clinician Unavailable Poonam Pearson Attending Clinician Rita Devlin MA Attending Clinician Unavailable [facility] Attending Clinician Unavailable Marlo San Attending Clinician Unavailable Johnny [facility], Magaly Attending Clinician Unavailable Joseph Gonzalez MA Attending Clinician Unavailable Roberta Combs RN Attending Clinician Unavailable Maxim Deutsch RN Attending Clinician Unavailable Mikhail Goodwin MD Attending Clinician Sean Goode MD Attending Clinician John POWELL, Mitch Attending Clinician MITCH SHERMAN Attending Clinician Unavailable Bong Morris MD Attending Clinician Wing Dorman MD Attending Clinician [phone] Alize Brenner MD Attending Clinician Kymberly Hastings DO Attending Clinician [phone] Rosalia Sherwood MA Attending Clinician Unavailable Carlos PT, Jeremi Cortez Attending Clinician Unavail able Gabriel PT, Ozzy Attending Clinician Unavailable Claus PT, Kayley Attending Clinician Unavailable Lazarus PT, Allison Attending Clinician Unavailable Tu Parson Attending Clinician Unavailable Jeana Aragon MA Attending Clinician Unavailable ALFREDO STEVENS Attending Clinician Unavailable ECHO UREÑA Attending Clinician Unavailable SYDNEE DIAS Attending Clinician Unavailable MD SYDNEE DIAS Attending Clinician Unavailable AKIL ACSTILLO Attending Clinician Unavailable MALIA LOWE Attending Clinician Unavailable STORM STPEHENS Attending Clinician Unavailable ARTEM GARDINER Attending Clinician Unavailable MAURICE CONWAY Attending Clinician Unavailable OMER RUTHERFORD Attending Clinician Unavailable ROB EWING Attending Clinician Unavailable JOSETTE HACKETT Attending Clinician Unavailable Cassidy Attending Clinician Unavailable IRINA BLOOM Attending Clinician Unavailable SHRADDHA STEPHENS Attending Clinician Unavailable CHINYERE LOZANO Admitting Clinician Unavailable Valentina Sherman Admitting Clinician Unavailable Saul Emanuel Rahil Admitting Clinician Unavailable [id number] Admitting Clinician Unavailable LATRICIA STEPHAN NERI Admitting Clinician Unavailable EZRA SERRA Admitting Clinician Unavailable Ezra Serra DO Admitting Clinician SALLY NORMAN Admitting Clinician Unavailable Anastasia Admitting Clinician Unavailable Mamadou Admitting Clinician Unavailable KNOW, DOES_NOT Admitting Clinician Unavailable Mitch Sherman MD Admitting Clinician SYDNEE DIAS Admitting Clinician Unavailable MD SYDNEE DIAS Admitting Clinician Unavailable JESSIE FRANZ Admitting Clinician Unavailable MAURICE CONWAY Admitting Clinician Unavailable Cassidy Admitting Clinician Unavailable STORM STEPHENS Admitting Clinician Unavailable MD REGAN JOHNSON Admitting Clinician Unavailable SHRADDHA STEPHENS Admitting Clinician Unavailable Payers Payer Name Policy Type Policy Number Effective Date Expiration Date S josey WELLMED/UHC DUAL [id number] 2020 COMP HMO D SNP 00:00:00 MEDICAID OF [place] [id number] 2021 00:00:00 UHC WELLMED [id number] 2017 00:00:00 U[facility]WM U[facility]WM [id number] [facility] 53 [id number] Common DUAL [facility] WELLMED [facility] WELLMED GROUP - [id number] 2020 [facility] 00:00:00 (MEDICARE REPLACEMENT/ADVAN TAGE - HMO) [place] [id number] [place]MEDICAID) [facility] 53 [id number] Common [facility] [id number] - DUAL COMPLETE - DUAL ELIGIBLE - SNP (MEDICARE-MEDICAI D REPLACEMENT HMO) Problems Condition Condition Condition Status Onset Resolution Last Treating Co mments Source Name Details Category Date Date Treatment Clinician Date Pathologic Pathologic Disease Active Overview : Univers al al 03-09 Formattin ity of fracture fracture 00:00: g of this Noe as of of note Medical thoracic thoracic might be Bran ch vertebra vertebra different with with from the routine routine original. healing, healing, Added subsequent subsequent automatic encounter encounter ally from request for surgery [id number] Right Right Disease Active 2021-03 Univers lower lobe lower lobe 04-05 [place] pulmonary [place] infiltr[place] infiltrate 00 Me dical Branch SCC SCC Disease Active 2021-03 Overview: Univer s (squamous (squamous 04-05 Formattin i ty of cell cell 00:00: g of this [place] carcinoma) carcinoma) 00 note Me dical might be Branch different from the original. Added automatic ally from request for surgery [id number] Chronic Chronic Problem Active Jennifer postoperat Postoperat [...] nivers left left 4-18 ity of 00:00: [place] [address] Medical Branch Primary Primary Disease Recurre Univer s osteoarthr osteoarthr nce 4-18 it y of itis of itis of 00:00: [place] right knee right knee 00 Me dical Branch Effusion Effusion Disease Active Unive rs of right of right 4-17 ity of knee knee 00:00: [place] [address] Medical Branch S/P BKA S/P BKA Disease Active Methodi (below (below 7-14 st knee knee 00:00: Hospita amputation amputation 00 l ) ) Osteomyeli Osteomyeli Disease Active M ethodi tis tis 7-11 st 00:00: Hospita 00 l Sepsis Sepsis Disease Active Methodi 7-03 st 00:00: Hospita 00 l Necrotizin Necrotizin Disease Active Overview : Methodi g g 7- Formattin st fasciitis fasciitis 00:00: g of this H ospita of lower of lower 00 note l leg leg might be different from the original. 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 6- Rory valera neuropathy Neuropathy 00:00: Pr actic 00 e Chronic Chronic Problem Active [facility] osteomyeli Osteomyeli 6-07 [facility] valera tis of tis of 00:00: Practic lower leg Lower Leg 00 e Hypertensi Hypertensi Problem Active [facility] renal ve Renal - Family disease Disease 00:00: Practic 00 e Proteinuri Proteinuri Problem Active [facility] c diabetic c Diabetic 05-27 [facility] nephropath Nephropath 00:00: Pr actic y y 00 e Chronic Chronic Problem Active [facility] renal Renal 3- Family impairment Impairment 00:00: Pr actic 00 e Benign Benign Problem Active [facility] essential Essential 2-12 Fami ly hypertensi Hypertensi 00:00: Pr actic on on 00 e Ulcer of Ulcer of Problem Active [facility] foot Foot 2-12 Family 00:00: Practic 00 e Diabetes Diabetes Problem Active 2016-12-13 Memoria mellitus-N mellitus-N 02:01:17 l ID ID Active [place] Problem 12/13/2016 [facility] Hypertensi Hypertens Problem Active 2016-12-13 Memoria on ion Active 02:01:17 l Problem [place] 12/13/2016 [facility] Abscess/ce Abscess/c Problem Active 2016-12-13 Memoria llulitis-f ellulitis- 02:01:17 l oot foot [place] Active Problem 12/13/2016 [facility] Ulcer-heel Ulcer-ni Problem Active 2016-12-13 Memoria /midfoot l/midfoot 02:01:17 l Active [place] Problem 12/13/2016 [facility] Arthritis Arthritis Problem Active 2016-12-13 Memoria Active 02:01:17 l Problem [place] 12/13/2016 [facility] Charcot Charcot Problem Active 2016-12-13 Me moria Joint Joint 02:01:17 l Active [place] Problem 12/13/2016 [facility] [id number] Arthritis Problem Com mon of knee [facility] [id number] Calculus Problem Commo n of kidney [facility] [id number] [place] of Problem Commo n right lung [facility] [id number] BPH loc w Problem Com mon urin Spirit obs/LUTS [facility] Type 2 Type 2 Disease Active Last [...] d at the next regular appointme nt. Allergies, Adverse Reactions, Alerts Allergy Allergy Status Severity Reaction(s) Onset Inactive Treating Comm ents Source Name Type Date Date Clinician No Known DA Active U [facility] Allergie 09-01 [place] [facility] 00:00: [address] No Known DA Active U [facility] Contrast 05-28 [place] Allergie 00:00: [facility] No Known DA Active U [facility] Drug 05-28 [place] Allergie 00:00: Orthope s 00 dic [facility]ospita l No Known DA Active U 2007-0 [facility] Food 3 [place] Allergie 00:00: Orthope s 00 dic Hospita l No Known DA Active U 2007-0 [facility] Other 3- [place] Allergie 00:00: Orthope s 00 dic Hospita l NO KNOWN Drug Active Univers ALLERGIE Class ity of S [facility] Family History Family Member Diagnosis Comments Start Date Stop Date Source Natural father Cirrhosis [facility] Natural mother Cancer [facility] Social History Social Habit Start Date Stop Date Quantity Comments Source History of tobacco Passive smoker Un iversity of use [facility] Exposure to 2022-03-12 2022-03-22 Not sure University of SARS-CoV-2 (event) 00:00:00 15:03:00 [facility] History SDOH 2022-02-06 2022-02-06 1 University o f Financial 00:00:00 00:00:00 [facility] Tobacco Comment 2022-02-02 2022-02-02 quit 1992 Universit y of 00:00:00 00:00:00 [facility] Alcohol intake 2021-09-27 2021-09-27 Ex-drinker [facility] 00:00:00 00:00:00 (finding) Hospital Education 2021-06-18 2021-06-18 21 University of 00:00:00 00:00:00 [facility] Cigarettes smoked 2021-05-26 2021-05-[address] current (pack per 00:00:00 00:00:00 Hospita l day) - Reported Cigarette 2021-05-26 2021-05-26 [facility] pack-years 00:00:00 00:00:00 Hospital Tobacco use and 2021-05-26 2021-05-26 Smokeless [facility] exposure 00:00:00 00:00:00 tobacco non-user Hospital History [facility] Food 2020-11-03 2020-11-[address] Worry 00:00:00 00:00:00 Hospital History [facility] Food 2020-11-03 2020-11-[address] Scarcity 00:00:00 00:00:00 Hospital History [facility] 2020-11-03 2020-11-03 2 [facility] Transport Med 00:00:00 00:00:00 Hospital History [facility] 2020-11-03 2020-11-03 2 [facility] Transport Non-Med 00:00:00 00:00:00 Hospita l History [facility] 2020-11-03 2020-11-03 2 [facility] Housing Unable to 00:00:00 00:00:00 Hospita l Pay History [facility] 2020-11-03 2020-11-03 1 [facility] Places 00:00:00 00:00:00 Hospital Lived History [facility] 2020-11-03 2020-11-03 2 [facility] Homeless 00:00:00 00:00:00 Hospital Last Year TobaccoUse: 2014-09-30 2014-09-30 [facility] Raina gosia 00:00:00 00:00:00 Sex [birth year] Universit y of 00:00:00 00:00:00 [place] MD [facility] Smoking Status Start Date Stop Date Source Never smoked tobacco [facility] Ex-smoker 2021-06-18 00:00:00 2021-06-18 00:00:00 [facility] Medications Ordered Filled Start Stop Current Ordering Indication Dosage Frequency Signature Comments Components Source Medication Medication Date Date Medication? Clinician (SIG) Name Name Maria Isabel 0 Yes [id number] 1mg Take 1 Univers ne 1 mg 1-24 tablet by ity of tablet 00:00: mouth in [place] the Medical morning. Branch dexAMETHaso 2022-0 Yes [id number] 1mg Take 1 Univers ne 1 mg 1-24 tablet by ity of tablet 00:00: mouth in [place] the Medical morning. Branch dexAMETHaso 2022-0 Yes [id number] 1mg Take 1 Univers ne 1 mg 1-24 tablet by ity of tablet 00:00: mouth in [place] the Medical morning. Branch dexAMETHaso 2022-0 Yes [id number] 1mg Take 1 Univers ne 1 mg 1-24 tablet by ity of tablet 00:00: mouth in [place] the Medical morning. Branch dexAMETHaso 2022-0 Yes [id number] 1mg Take 1 Univers ne 1 mg 1-24 tablet by ity of tablet 00:00: mouth in [place] the Medical morning. Branch dexAMETHaso 2022-0 Yes [id number] 1mg Take 1 Univers ne 1 mg 1-24 tablet by ity of tablet 00:00: mouth in [place] the Medical morning. Branch dexAMETHaso 2022-0 Yes [id number] 1mg Take 1 Univers ne 1 mg 1-24 tablet by ity of tablet 00:00: mouth in [place] the Medical morning. Branch dexAMETHaso 2022-0 Yes [id number] 1mg Take 1 Univers ne 1 mg 1-24 tablet by ity of tablet 00:00: mouth in [place] the Medical morning. Branch dexAMETHaso 2022-0 Yes [id number] 1mg Take 1 Univers ne 1 mg 1-24 tablet by ity of tablet 00:00: mouth in [place] the Medical morning. Branch dexAMETHaso 2023-0 Yes [id number] 1mg Take 1 Univers ne 1 mg 1-24 tablet by ity of tablet 00:00: mouth in [place] the Medical morning. Branch dexAMETHaso 2023-0 Yes [id number] 1mg Take 1 Univers ne 1 mg 1-24 tablet by ity of tablet 00:00: mouth in [place] the Medical morning. Branch dexAMETHaso 2023-0 Yes [id number] 1mg Take 1 Univers ne 1 mg 1-24 tablet by ity of tablet 00:00: mouth in [place] the Medical morning. Branch dexAMETHaso 2023-0 Yes [id number] 1mg Take 1 Univers ne 1 mg 1-24 tablet by ity of tablet 00:00: mouth in [place] the Medical morning. Branch dexAMETHaso 2023-0 Yes [id number] 1mg Take 1 Univers ne 1 mg 1-24 tablet by ity of tablet 00:00: mouth in [place] the Medical morning. Branch dexAMETHaso 2023-0 Yes [id number] 1mg Take 1 Univers ne 1 mg 1-24 tablet by ity of tablet 00:00: mouth in [place] the Medical morning. Branch dexAMETHaso 3-0 Yes [id number] 1mg Take 1 Univers ne 1 mg 1-24 tablet by ity of tablet 00:00: mouth in [place] the Medical morning. Branch dexAMETHaso 3-0 Yes [id number] 1mg Take 1 Univers ne 1 mg 1-24 tablet by ity of tablet 00:00: mouth in [place] the Medical morning. Branch dexAMETHaso 2023-0 Yes [id number] 1mg Take 1 Univers ne 1 mg 1-24 tablet by ity of tablet 00:00: mouth in [place] the Medical morning. Branch dexAMETHaso 2023-0 Yes [id number] 1mg Take 1 Univers ne 1 mg 1-24 tablet by ity of tablet 00:00: mouth in [place] the Medical morning. Branch dexAMETHaso 2023-0 Yes [id number] 1mg Take 1 Univers ne 1 mg 1-24 tablet by ity of tablet 00:00: mouth in [place] the Medical morning. Branch dexAMETHaso 2023-0 Yes [id number] 1mg Take 1 Univers ne 1 mg 1-24 tablet by ity of tablet 00:00: mouth in [place] 00 the Medical morning. [place] dexAMETHaso Yes [id number] 1mg Take 1 Univers ne 1 mg 1-24 tablet by ity of tablet 00:00: mouth in [place] 00 the morning. Branch dexAMETHaso 2021- No [id number] 1mg Take 2 Univers ne 0.5 mg 1-24 12-15 tablets by ity of tablet 00:00: 00:00 mouth in [place] 00 :00 the morning Branch for 30 days. dexAMETHaso 2021- No [id number] 1mg Take 1 Univers ne 1 mg 1-24 12-15 tablet by ity of tablet 00:00: 00:00 mouth in [place] 00 :00 the morning [place] for 7 days. contrast 2022- No [id number] Intravenou Univers previously 03-22 s, ONCE, 1 it y of administere 17:00: 16:00 dose, [place] 0 mL 00 :00 [facility] 03/22/22 at [place] 1100, Routine iopamidol 2022- No [id number] 20mL 20 mL, Univers (ISOVUE-M 03-22 Intratheca ity of 200-20 mL) 16:00: 18:11 l, TITRATE [place] intrathecal 00 :00 - FOR Medical injection PROCEDURE Branc h 20 mL USE, 1 dose, Starting on Brianna 03/22/22 at 1000, Until Brianna 03/22/22 at 1211, [place], Surgery/Pr ocedure iopamidol 2022- No [id number] 20mL 20 mL, Univers (ISOVUE-M 03-22 Intratheca ity of 200-20 mL) 16:00: 18:11 l, TITRATE [place] intrathecal 00 :00 - FOR Medical injection PROCEDURE Branc h 20 mL USE, 1 dose, Starting on Brianna 03/22/22 at 1000, Until Brianna 03/22/22 at 1211, [place], Surgery/Pr ocedure lidocaine 2022- Yes PRN, Univers 1% (PF) 03-22 Starting ity of (XYLOCAINE) 15:31: on [place] injection 09 03/22/22 at [facility] 0931, Branch Until Discontinu ed, Routine lidocaine 2022- No PRN, Univers 1% (PF) 03-22 Starting ity of (XYLOCAINE) 15:31: 10:09 on Brianna Noe as injection 09 :59 03/22/22 at [facility] jessica 0931, Branch Until 03/23/22 at 0409, Routine amLODIPine Yes 10mg Take 10 mg U nivers 10 mg 1-19 by mouth ity of tablet 15:09: in the [place] [address] morning. Medical Branch amLODIPine 0 Yes 10mg Take 10 mg U nivers 10 mg 1-19 by mouth ity of tablet 15:09: in the [place] [address] morning. Medical Branch amLODIPine 0 Yes 10mg Take 10 mg U nivers 10 mg 1-19 by mouth ity of tablet 15:09: in the [place] [address] morning. Medical Branch amLODIPine Yes 10mg Take 10 mg U nivers 10 mg 1-19 by mouth ity of tablet 15:09: in the [place] [address] morning. Medical Branch HYDROcodone 2021-03- No 1{tbl} 1 tablet, Univers -acetaminop 2-15 12-15 Oral, ity of hen (NORCO) 23:15: 22:37 ONCE, 1 [place] 10-325 mg 00 :00 dose, On Medica l tablet 1 Brianna [place] tablet 02/15/22 at 1715, Routine morpHINE (2 2021-03- No 4mg 4 mg, Slow Univers mg/mL) 2-15 12-15 IV Push, ity of injection 4 18:12: 19:49 Q4HPRN, [place] mg 30 :18 Starting Medical on Brianna Branch 02/15/22 at 1212, Until Brianna 02/15/22 at 1349, Routine, Pain (scale 7-10) melatonin 3 2021-03 Yes 3mg Take 3 mg U nivers mg tablet 2-15 by mouth ity of 18:01: at bedtime [place] [address] as needed Medical for Branch Insomnia. melatonin 2021-03 Yes 3mg Take 3 mg U nivers mg tablet 2-15 by mouth ity of 18:01: at bedtime [place] [address] as needed Medical for Branch Insomnia. melatonin 3 2021-03 Yes 3mg Take 3 mg U nivers mg tablet 2-15 by mouth ity of 18:01: at bedtime [place] 05 as needed Medical for Branch Insomnia. melatonin 2021-03 Yes 3mg Take 3 mg U nivers mg tablet 2-15 by mouth ity of 18:01: at bedtime [place] 05 as needed Medical for Branch Insomnia. melatonin 2021-03 Yes 3mg Take 3 mg U nivers mg tablet 2-15 by mouth ity of 18:01: at bedtime [place] 05 as needed Medical for Branch Insomnia. melatonin 2021-03 Yes 3mg Take 3 mg U nivers mg tablet 2-15 by mouth ity of 18:01: at bedtime [place] 05 as needed Medical for Branch Insomnia. melatonin 2021-03 Yes 3mg Take 3 mg U nivers mg tablet 2-15 by mouth ity of 18:01: at bedtime [place] 05 as needed Medical for Branch Insomnia. melatonin 2021-03 Yes 3mg Take 3 mg U nivers mg tablet 2-15 by mouth ity of 18:01: at bedtime [place] 05 as needed Medical for Branch Insomnia. melatonin 2021-03 Yes 3mg Take 3 mg U nivers mg tablet 2-15 by mouth ity of 18:01: at bedtime [place] 05 as needed Medical for Branch Insomnia. melatonin 2021-03 Yes 3mg Take 3 mg U nivers mg tablet 2-15 by mouth ity of 18:01: at bedtime [place] 05 as needed Medical for Branch Insomnia. melatonin 2021-03 Yes 3mg Take 3 mg U nivers mg tablet 2-15 by mouth ity of 18:01: at bedtime [place] 05 as needed Medical for Branch Insomnia. melatonin 2021-03 Yes 3mg Take 3 mg U nivers mg tablet 2-15 by mouth ity of 18:01: at bedtime [place] 05 as needed Medical for Branch Insomnia. melatonin 2021-03 Yes 3mg Take 3 mg U nivers mg tablet 2-15 by mouth ity of 18:01: at bedtime [place] 05 as needed Medical for Branch Insomnia. melatonin 2021-03 Yes 3mg Take 3 mg U nivers mg tablet 2-15 by mouth ity of 18:01: at bedtime [place] 05 as needed Medical for Branch Insomnia. melatonin 2021-03 Yes 3mg Take 3 mg U nivers mg tablet 2-15 by mouth ity of 18:01: at bedtime [place] 05 as needed Medical for Branch Insomnia. melatonin 2021-03 Yes 3mg Take 3 mg U nivers mg tablet 2-15 by mouth ity of 18:01: at bedtime [place] 05 as needed Medical for Branch Insomnia. melatonin 2021-03 Yes 3mg Take 3 mg U nivers mg tablet 2-15 by mouth ity of 18:01: at bedtime [place] 05 as needed Medical for Branch Insomnia. melatonin 2021-03 Yes 3mg Take 3 mg U nivers mg tablet 2-15 by mouth ity of 18:01: at bedtime [place] 05 as needed Medical for Branch Insomnia. melatonin 2021-03 Yes 3mg Take 3 mg U nivers mg tablet 2-15 by mouth ity of 18:01: at bedtime [place] 05 as needed Medical for Branch Insomnia. melatonin 2021-03 Yes 3mg Take 3 mg U nivers mg tablet 2-15 by mouth ity of 18:01: at bedtime [place] 05 as needed Medical for Branch Insomnia. melatonin 2021-03 Yes 3mg Take 3 mg U nivers mg tablet 2-15 by mouth ity of 18:01: at bedtime [place] 05 as needed Medical for Branch Insomnia. melatonin 2021-03 Yes 3mg Take 3 mg U nivers mg tablet 2-15 by mouth ity of 18:01: at bedtime [place] 05 as needed Medical for Branch Insomnia. buprenorphi 2021-03- No [address] 750 Univers ne HCL 2-15 12-15 mcg in ity of (BELBUCA) 17:11: 00:00 cheeks 2 Noe as 750 mcg 29 :00 (two) Medical Film times Branch daily. Indication s: chronic pain Diclofenac 2021-03- No 1{dose} Apply 1 Univers Sodium 2-15 12-15 Dose to ity of (VOLTAREN 15:51: 00:00 area(s) [place] ARTHRITIS 29 :00 every 6 Medical PAIN) 1 % (six) Branch gel hours as needed (JOINT PAIN). ibuprofen 2021-03- No 600mg Take 600 Un lazara 600 mg 2-15 12-15 mg by ity of tablet 15:51: 00:00 mouth [place] 28 :00 every 6 Medical (six) Branch hours as needed for Pain (scale 4-6). glimepiride 2021-03 No 1mg Take 1 mg Univers (AMARYL) 1 2-15 12-15 by mouth ity of mg tablet 15:51: 00:00 daily with [place] 28 :00 breakfast. Medical Branch DULoxetine 2021-03 No 20mg Take 20 mg Univers (CYMBALTA) 2-15 12-15 by mouth ity of 20 mg 15:51: 00:00 daily. [place] capsule 28 :00 Medical Branch HYDROcodone 2021-03 No 1{tbl} Take 1 U nivers -acetaminop 2-15 12-15 tablet by it y of hen (NORCO) 15:51: 00:00 mouth [place] 10-325 mg 28 :00 every 6 Medical tablet (six) Branch hours as needed for Pain (scale 7-10). methocarbam 2021-03 No 500mg Take 500 Univers oL 500 mg 2-15 12-15 mg by ity of tablet 14:32: 00:00 mouth 4 [place] 48 :00 (four) Medical times Branch daily as needed for Other (MUSCLE SPASM). pregabalin 2021-03 No 75mg Take 75 mg Univers (LYRICA) 75 2-15 12-15 by mouth 2 i ty of mg capsule 14:32: 00:00 (two) [place] 48 :00 times Medical daily. Branch insulin 2021-03 Yes 12U 12 Units, Unive rs glargine 2-15 Subcutaneo ity o f (LANTUS 03:00: , [facility], [place] U-100) 00 First dose Medical injection (after Branch 12 Units last modificati on) on Sat02/14/22 at 2100, Until Discontinu ed, Routine Sliding 2021-03 Yes Subcutaneo Univ ers Scale 2-15 us, Q4H, ity of Insulin - 02:00: First dose [place] Lispro 00 (after Medical (HumaLOG) + last Branch Fsbg modificati Testing on) on Sat02/14/22 at 2000, Until Discontinu ed, Routine dexAMETHaso 2021-03 Yes 4mg 4 mg, Unive rs ne 2-15 Oral, ity of (DECADRON) 02:00: Q12H, [place] tablet 4 mg 00 First dose Me dical (after Branch last modificati on) on Sat02/14/22 at 1999, Until Discontinu ed, Routine morphine ER 2021-03 Yes [id number] 30mg Take 1 [facility] 30 mg 12 hr 2-15 tablet by [facility] of tablet 00:00: mouth [place] 00 every 12 Medical (twelve) Branch hours. Indication s: acute pain glimepiride 2021-03 Yes [id number] 1mg Take 1 [facility] (AMARYL) 1 2-15 tablet by [facility] of mg tablet 00:00: mouth [place] 00 daily with Medical breakfast. Branch pregabalin 2021-03 Yes [id number] 100mg Take 1 [facility] 100 mg 2-15 capsule by [facility] of capsule 00:00: mouth in [place] 00 the Medical morning Branch and 1 capsule in the evening. methocarbam 2021-03 Yes [id number] 1000mg Take 2 [facility] oL 500 mg 2-15 tablets by [facility] of tablet 00:00: mouth 4 [place] 00 (four) Medical times Branch daily. hydroCHLORO 2021-03 Yes [id number] 12.5mg Take 1 [facility] thiazide 2-15 tablet by ity of 12.5 mg 00:00: mouth in [place] tablet 00 the Medical morning. Branch losartan 50 2021-03 Yes [id number] 50mg Take 1 [facility] mg tablet 2-15 tablet by ity o f 00:00: mouth in [place] 00 the Medical morning. Branch Diclofenac 2021-03 Yes [id number] 1{dose} Apply 1 [facility] Sodium 2-15 Dose to ity of (VOLTAREN 00:00: area(s) [place] ARTHRITIS 00 every 6 Medical PAIN) 1 % (six) Branch gel hours as needed (JOINT PAIN). buprenorphi 2021-[id number] [facility] ne HCL 2-15 mcg in it[facility] of ([place]) 00:00: cheeks 2 [place] 750 mcg 00 (two) Medical Film times Branch daily. Indication s: chronic pain morphine ER 2021-03 Yes [id number] 30mg Take 1 [facility] ers 30 mg 12 hr 2-15 tablet by it[facility] of tablet 00:00: mouth [place] 00 every 12 Medical (twelve) Branch hours. Indication s: acute pain glimepiride 2021-03 Yes [id number] 1mg Take 1 [facility] (AMARYL) 1 2-15 tablet by ity of mg tablet 00:00: mouth [place] 00 daily with Medical breakfast. Branch pregabalin 2021-03 Yes [id number] 100mg Take 1 [facility] 100 mg 2-15 capsule by [facility] of capsule 00:00: mouth in [place] 00 the Medical morning Branch and 1 capsule in the evening. methocarbam 2021-03 Yes [id number] 1000mg Take 2 [facility] oL 500 mg 2-15 tablets by ity of tablet 00:00: mouth 4 [place] 00 (four) Medical times Branch daily. hydroCHLORO 2021-03 Yes [id number] 12.5mg Take 1 [facility] thiazide 2-15 tablet by ity of 12.5 mg 00:00: mouth in [place] tablet 00 the Medical morning. Branch losartan 50 2021-03 Yes [id number] 50mg Take 1 [facility] mg tablet 2-15 tablet by ity o f 00:00: mouth in [place] 00 the Medical morning. Branch Diclofenac 2021-03 Yes [id number] 1{dose} Apply 1 [facility] Sodium 2-15 Dose to ity of (VOLTAREN 00:00: area(s) [place] ARTHRITIS 00 every 6 Medical PAIN) 1 % (six) Branch gel hours as needed (JOINT PAIN). buprenorphi 2021-[id number] [facility] ne HCL 2-15 mcg in ity of ([place]) 00:00: cheeks 2 [place] 750 mcg 00 (two) Medical Film times Branch daily. Indication s: chronic pain morphine ER 2021-03 Yes [id number] 30mg Take 1 [facility] ers 30 mg 12 hr 2-15 tablet by it[facility] of tablet 00:00: mouth [place] 00 every 12 Medical (twelve) Branch hours. Indication s: acute pain glimepiride 2021-03 Yes [id number] 1mg Take 1 [facility] (AMARYL) 1 2-15 tablet by it[facility] of mg tablet 00:00: mouth [place] 00 daily with Medical breakfast. Branch pregabalin 2021-03 Yes [id number] 100mg Take 1 [facility] 100 mg 2-15 capsule by [facility] of capsule 00:00: mouth in [place] 00 the Medical morning Branch and 1 capsule in the evening. methocarbam 2021-03 Yes [id number] 1000mg Take 2 [facility] oL 500 mg 2-15 tablets by it[facility] of tablet 00:00: mouth 4 [place] 00 (four) Medical times Branch daily. hydroCHLORO 2021-03 Yes [id number] 12.5mg Take 1 [facility] thiazide 2-15 tablet by ity of 12.5 mg 00:00: mouth in [place] tablet 00 the Medical morning. Branch losartan 50 2021-03 Yes [id number] 50mg Take 1 [facility] mg tablet 2-15 tablet by ity o f 00:00: mouth in [place] 00 the Medical morning. Branch Diclofenac 2021-03 Yes [id number] 1{dose} Apply 1 [facility] Sodium 2-15 Dose to ity of (VOLTAREN 00:00: area(s) [place] ARTHRITIS 00 every 6 Medical PAIN) 1 % (six) Branch gel hours as needed (JOINT PAIN). buprenorphi 2021-[id number] [facility] ne HCL 2-15 mcg in ity of ([place]) 00:00: cheeks 2 [place] 750 mcg 00 (two) Medical Film times Branch daily. Indication s: chronic pain morphine ER 2021-03 Yes [id number] 30mg Take 1 [facility] ers 30 mg 12 hr 2-15 tablet by it[facility] of tablet 00:00: mouth [place] 00 every 12 Medical (twelve) Branch hours. Indication s: acute pain glimepiride 2021-03 Yes [id number] 1mg Take 1 [facility] (AMARYL) 1 2-15 tablet by it[facility] of mg tablet 00:00: mouth [place] 00 daily with Medical breakfast. Branch pregabalin 2021-03 Yes [id number] 100mg Take 1 [facility] 100 mg 2-15 capsule by [facility] of capsule 00:00: mouth in [place] 00 the Medical morning Branch and 1 capsule in the evening. methocarbam 2021-03 Yes [id number] 1000mg Take 2 [facility] oL 500 mg 2-15 tablets by it[facility] of tablet 00:00: mouth 4 [place] 00 (four) Medical times Branch daily. hydroCHLORO 2021-03 Yes [id number] 12.5mg Take 1 [facility] thiazide 2-15 tablet by ity of 12.5 mg 00:00: mouth in [place] tablet 00 the Medical morning. Branch losartan 50 2021-03 Yes [id number] 50mg Take 1 [facility] mg tablet 2-15 tablet by ity o f 00:00: mouth in [place] 00 the Medical morning. Branch Diclofenac 2021-03 Yes [id number] 1{dose} Apply 1 [facility] Sodium 2-15 Dose to ity of (VOLTAREN 00:00: area(s) [place] ARTHRITIS 00 every 6 Medical PAIN) 1 % (six) Branch gel hours as needed (JOINT PAIN). buprenorphi 2021-[id number] [facility] ne HCL 2-15 mcg in ity of ([place]) 00:00: cheeks 2 [place] 750 mcg 00 (two) Medical Film times Branch daily. Indication s: chronic pain morphine ER 2021-03 Yes [id number] 30mg Take 1 [facility] ers 30 mg 12 hr 2-15 tablet by it[facility] of tablet 00:00: mouth [place] 00 every 12 Medical (twelve) Branch hours. Indication s: acute pain glimepiride 2021-03 Yes [id number] 1mg Take 1 [facility] (AMARYL) 1 2-15 tablet by ity of mg tablet 00:00: mouth [place] 00 daily with Medical breakfast. Branch pregabalin 2021-03 Yes [id number] 100mg Take 1 [facility] 100 mg 2-15 capsule by it[facility] of capsule 00:00: mouth in [place] 00 the Medical morning Branch and 1 capsule in the evening. methocarbam 2021-03 Yes [id number] 1000mg Take 2 [facility] oL 500 mg 2-15 tablets by it[facility] of tablet 00:00: mouth 4 [place] 00 (four) Medical times Branch daily. hydroCHLORO 2021-03 Yes [id number] 12.5mg Take 1 [facility] thiazide 2-15 tablet by ity of 12.5 mg 00:00: mouth in [place] tablet 00 the Medical morning. Branch losartan 50 2021-03 Yes [id number] 50mg Take 1 [facility] mg tablet 2-15 tablet by ity o f 00:00: mouth in [place] 00 the Medical morning. Branch Diclofenac 2021-03 Yes [id number] 1{dose} Apply 1 [facility] Sodium 2-15 Dose to ity of (VOLTAREN 00:00: area(s) [place] ARTHRITIS 00 every 6 Medical PAIN) 1 % (six) Branch gel hours as needed (JOINT PAIN). buprenorphi 2021-[id number] [facility] ne HCL 2-15 mcg in ity of ([place]) 00:00: cheeks 2 [place] 750 mcg 00 (two) Medical Film times Branch daily. Indication s: chronic pain morphine ER 2021-03 Yes [id number] 30mg Take 1 [facility] ers 30 mg 12 hr 2-15 tablet by it[facility] of tablet 00:00: mouth [place] 00 every 12 Medical (twelve) Branch hours. Indication s: acute pain glimepiride 2021-03 Yes [id number] 1mg Take 1 [facility] (AMARYL) 1 2-15 tablet by ity of mg tablet 00:00: mouth [place] 00 daily with Medical breakfast. Branch pregabalin 2021-03 Yes [id number] 100mg Take 1 [facility] 100 mg 2-15 capsule by it[facility] of capsule 00:00: mouth in [place] 00 the Medical morning Branch and 1 capsule in the evening. methocarbam 2021-03 Yes [id number] 1000mg Take 2 [facility] oL 500 mg 2-15 tablets by it[facility] of tablet 00:00: mouth 4 [place] 00 (four) Medical times Branch daily. hydroCHLORO 2021-03 Yes [id number] 12.5mg Take 1 [facility] thiazide 2-15 tablet by ity of 12.5 mg 00:00: mouth in [place] tablet 00 the Medical morning. Branch losartan 50 2021-03 Yes [id number] 50mg Take 1 [facility] mg tablet 2-15 tablet by ity o f 00:00: mouth in [place] 00 the Medical morning. Branch Diclofenac 2021-03 Yes [id number] 1{dose} Apply 1 [facility] Sodium 2-15 Dose to ity of (VOLTAREN 00:00: area(s) [place] ARTHRITIS 00 every 6 Medical PAIN) 1 % (six) Branch gel hours as needed (JOINT PAIN). buprenorphi 2021-[id number] [facility] ne HCL 2-15 mcg in ity of ([place]) 00:00: cheeks 2 [place] 750 mcg 00 (two) Medical Film times Branch daily. Indication s: chronic pain morphine ER 2021-03 Yes [id number] 30mg Take 1 [facility] ers 30 mg 12 hr 2-15 tablet by it[facility] of tablet 00:00: mouth [place] 00 every 12 Medical (twelve) Branch hours. Indication s: acute pain glimepiride 2021-03 Yes [id number] 1mg Take 1 [facility] (AMARYL) 1 2-15 tablet by ity of mg tablet 00:00: mouth [place] 00 daily with Medical breakfast. Branch pregabalin 2021-03 Yes [id number] 100mg Take 1 [facility] 100 mg 2-15 capsule by it[facility] of capsule 00:00: mouth in [place] 00 the Medical morning Branch and 1 capsule in the evening. methocarbam 2021-03 Yes [id number] 1000mg Take 2 [facility] oL 500 mg 2-15 tablets by ity of tablet 00:00: mouth 4 [place] 00 (four) Medical times Branch daily. hydroCHLORO 2021-03 Yes [id number] 12.5mg Take 1 [facility] thiazide 2-15 tablet by ity of 12.5 mg 00:00: mouth in [place] tablet 00 the Medical morning. Branch losartan 50 2021-03 Yes [id number] 50mg Take 1 [facility] mg tablet 2-15 tablet by ity o f 00:00: mouth in [place] 00 the Medical morning. Branch Diclofenac 2021-03 Yes [id number] 1{dose} Apply 1 [facility] Sodium 2-15 Dose to ity of (VOLTAREN 00:00: area(s) [place] ARTHRITIS 00 every 6 Medical PAIN) 1 % (six) Branch gel hours as needed (JOINT PAIN). buprenorphi 2021-[id number] [facility] ne HCL 2-15 mcg in ity of ([place]) 00:00: cheeks 2 [place] 750 mcg 00 (two) Medical Film times Branch daily. Indication s: chronic pain morphine ER 2021-03 Yes [id number] 30mg Take 1 [facility] ers 30 mg 12 hr 2-15 tablet by it[facility] of tablet 00:00: mouth [place] 00 every 12 Medical (twelve) Branch hours. Indication s: acute pain glimepiride 2021-03 Yes [id number] 1mg Take 1 [facility] (AMARYL) 1 2-15 tablet by ity of mg tablet 00:00: mouth [place] 00 daily with Medical breakfast. Branch pregabalin 2021-03 Yes [id number] 100mg Take 1 [facility] 100 mg 2-15 capsule by ity of capsule 00:00: mouth in [place] 00 the Medical morning Branch and 1 capsule in the evening. methocarbam 2021-03 Yes [id number] 1000mg Take 2 [facility] oL 500 mg 2-15 tablets by ity of tablet 00:00: mouth 4 [place] 00 (four) Medical times Branch daily. hydroCHLORO 2021-03 Yes [id number] 12.5mg Take 1 [facility] thiazide 2-15 tablet by ity of 12.5 mg 00:00: mouth in [place] tablet 00 the Medical morning. Branch losartan 50 2021-03 Yes [id number] 50mg Take 1 [facility] mg tablet 2-15 tablet by ity o f 00:00: mouth in [place] 00 the Medical morning. Branch Diclofenac 2021-03 Yes [id number] 1{dose} Apply 1 [facility] Sodium 2-15 Dose to ity of (VOLTAREN 00:00: area(s) [place] ARTHRITIS 00 every 6 Medical PAIN) 1 % (six) Branch gel hours as needed (JOINT PAIN). buprenorphi 2021-[id number] [facility] ne HCL 2-15 mcg in ity of ([place]) 00:00: cheeks 2 [place] 750 mcg 00 (two) Medical Film times Branch daily. Indication s: chronic pain morphine ER 2021-03 Yes [id number] 30mg Take 1 [facility] ers 30 mg 12 hr 2-15 tablet by it[facility] of tablet 00:00: mouth [place] 00 every 12 Medical (twelve) Branch hours. Indication s: acute pain glimepiride 2021-03 Yes [id number] 1mg Take 1 [facility] (AMARYL) 1 2-15 tablet by ity of mg tablet 00:00: mouth [place] 00 daily with Medical breakfast. Branch pregabalin 2021-03 Yes [id number] 100mg Take 1 [facility] 100 mg 2-15 capsule by it[facility] of capsule 00:00: mouth in [place] 00 the Medical morning Branch and 1 capsule in the evening. methocarbam 2021-03 Yes [id number] 1000mg Take 2 [facility] oL 500 mg 2-15 tablets by it[facility] of tablet 00:00: mouth 4 [place] 00 (four) Medical times Branch daily. hydroCHLORO 2021-03 Yes [id number] 12.5mg Take 1 [facility] thiazide 2-15 tablet by ity of 12.5 mg 00:00: mouth in [place] tablet 00 the Medical morning. Branch losartan 50 2021-03 Yes [id number] 50mg Take 1 [facility] mg tablet 2-15 tablet by ity o f 00:00: mouth in [place] 00 the Medical morning. Branch Diclofenac 2021-03 Yes [id number] 1{dose} Apply 1 [facility] Sodium 2-15 Dose to ity of (VOLTAREN 00:00: area(s) [place] ARTHRITIS 00 every 6 Medical PAIN) 1 % (six) Branch gel hours as needed (JOINT PAIN). buprenorphi 2021-[id number] [facility] ne HCL 2-15 mcg in ity of ([place]) 00:00: cheeks 2 [place] 750 mcg 00 (two) Medical Film times Branch daily. Indication s: chronic pain morphine ER 2021-03 Yes [id number] 30mg Take 1 [facility] ers 30 mg 12 hr 2-15 tablet by ity of tablet 00:00: mouth [place] 00 every 12 Medical (twelve) Branch hours. Indication s: acute pain glimepiride 2021-03 Yes [id number] 1mg Take 1 [facility] (AMARYL) 1 2-15 tablet by ity of mg tablet 00:00: mouth [place] 00 daily with Medical breakfast. Branch pregabalin 2021-03 Yes [id number] 100mg Take 1 [facility] 100 mg 2-15 capsule by ity of capsule 00:00: mouth in [place] 00 the Medical morning Branch and 1 capsule in the evening. methocarbam 2021-03 Yes [id number] 1000mg Take 2 [facility] oL 500 mg 2-15 tablets by ity of tablet 00:00: mouth 4 [place] 00 (four) Medical times Branch daily. hydroCHLORO 2021-03 Yes [id number] 12.5mg Take 1 [facility] thiazide 2-15 tablet by ity of 12.5 mg 00:00: mouth in [place] [facility] 00 the Medical morning. Branch losartan 50 2021-03 Yes [id number] 50mg Take 1 [facility] mg tablet 2-15 tablet by ity o f 00:00: mouth in [place] 00 the Medical morning. Branch Diclofenac 2021-03 Yes [id number] 1{dose} Apply 1 [facility] Sodium 2-15 Dose to ity of (VOLTAREN 00:00: area(s) [place] ARTHRITIS 00 every 6 Medical PAIN) 1 % (six) Branch gel hours as needed (JOINT PAIN). buprenorphi 2021-[id number] [facility] ne HCL 2-15 mcg in ity of ([place]) 00:00: cheeks 2 [place] 750 mcg 00 (two) Medical Film times Branch daily. Indication s: chronic pain morphine ER 2021-03 Yes [id number] 30mg Take 1 [facility] ers 30 mg 12 hr 2-15 tablet by ity of tablet 00:00: mouth [place] 00 every 12 Medical (twelve) Branch hours. Indication s: acute pain glimepiride 2021-03 Yes [id number] 1mg Take 1 [facility] (AMARYL) 1 2-15 tablet by ity of mg tablet 00:00: mouth [place] 00 daily with Medical breakfast. Branch pregabalin 2021-03 Yes [id number] 100mg Take 1 [facility] 100 mg 2-15 capsule by ity of capsule 00:00: mouth in [place] 00 the Medical morning Branch and 1 capsule in the evening. methocarbam 2021-03 Yes [id number] 1000mg Take 2 [facility] oL 500 mg 2-15 tablets by ity of tablet 00:00: mouth 4 [place] 00 (four) Medical times Branch daily. hydroCHLORO 2021-03 Yes [id number] 12.5mg Take 1 [facility] thiazide 2-15 tablet by ity of 12.5 mg 00:00: mouth in [place] tablet 00 the Medical morning. Branch losartan 50 2021-03 Yes [id number] 50mg Take 1 [facility] mg tablet 2-15 tablet by ity o f 00:00: mouth in [place] 00 the Medical morning. Branch Diclofenac 2021-03 Yes [id number] 1{dose} Apply 1 [facility] Sodium 2-15 Dose to ity of (VOLTAREN 00:00: area(s) [place] ARTHRITIS 00 every 6 Medical PAIN) 1 % (six) Branch gel hours as needed (JOINT PAIN). buprenorphi 2021-[id number] [facility] ne HCL 2-15 mcg in ity of ([place]) 00:00: cheeks 2 [place] 750 mcg 00 (two) Medical Film times Branch daily. Indication s: chronic pain morphine ER 2021-03 Yes [id number] 30mg Take 1 [facility] ers 30 mg 12 hr 2-15 tablet by ity of tablet 00:00: mouth [place] 00 every 12 Medical (twelve) Branch hours. Indication s: acute pain glimepiride 2021-03 Yes [id number] 1mg Take 1 [facility] (AMARYL) 1 2-15 tablet by ity of mg tablet 00:00: mouth [place] 00 daily with Medical breakfast. Branch pregabalin 2021-03 Yes [id number] 100mg Take 1 [facility] 100 mg 2-15 capsule by ity of capsule 00:00: mouth in [place] 00 the Medical morning Branch and 1 capsule in the evening. methocarbam 2021-03 Yes [id number] 1000mg Take 2 [facility] oL 500 mg 2-15 tablets by ity of tablet 00:00: mouth 4 [place] 00 (four) Medical times Branch daily. hydroCHLORO 2021-03 Yes [id number] 12.5mg Take 1 [facility] thiazide 2-15 tablet by ity of 12.5 mg 00:00: mouth in [place] tablet 00 the Medical morning. Branch losartan 50 2021-03 Yes [id number] 50mg Take 1 [facility] mg tablet 2-15 tablet by ity o f 00:00: mouth in [place] 00 the Medical morning. Branch Diclofenac 2021-03 Yes [id number] 1{dose} Apply 1 [facility] Sodium 2-15 Dose to ity of (VOLTAREN 00:00: area(s) [place] ARTHRITIS 00 every 6 Medical PAIN) 1 % (six) Branch gel hours as needed (JOINT PAIN). buprenorphi 2021-[id number] [facility] ne HCL 2-15 mcg in ity of ([place]) 00:00: cheeks 2 [place] 750 mcg 00 (two) Medical Film times Branch daily. Indication s: chronic pain morphine ER 2021-03 Yes [id number] 30mg Take 1 [facility] ers 30 mg 12 hr 2-15 tablet by ity of tablet 00:00: mouth [place] 00 every 12 Medical (twelve) Branch hours. Indication s: acute pain glimepiride 2021-03 Yes [id number] 1mg Take 1 [facility] (AMARYL) 1 2-15 tablet by ity of mg tablet 00:00: mouth [place] 00 daily with Medical breakfast. Branch pregabalin 2021-03 Yes [id number] 100mg Take 1 [facility] 100 mg 2-15 capsule by ity of capsule 00:00: mouth in [place] 00 the Medical morning Branch and 1 capsule in the evening. methocarbam 2021-03 Yes [id number] 1000mg Take 2 [facility] oL 500 mg 2-15 tablets by ity of tablet 00:00: mouth 4 [place] 00 (four) Medical times Branch daily. hydroCHLORO 2021-03 Yes [id number] 12.5mg Take 1 [facility] thiazide 2-15 tablet by ity of 12.5 mg 00:00: mouth in [place] tablet 00 the Medical morning. Branch losartan 50 2021-03 Yes [id number] 50mg Take 1 [facility] mg tablet 2-15 tablet by ity o f 00:00: mouth in [place] 00 the Medical morning. Branch Diclofenac 2021-03 Yes [id number] 1{dose} Apply 1 [facility] Sodium 2-15 Dose to ity of (VOLTAREN 00:00: area(s) [place] ARTHRITIS 00 every 6 Medical PAIN) 1 % (six) Branch gel hours as needed (JOINT PAIN). buprenorphi 2021-[id number] [facility] ne HCL 2-15 mcg in ity of ([place]) 00:00: cheeks 2 [place] 750 mcg 00 (two) Medical Film times Branch daily. Indication s: chronic pain morphine ER 2021-03 Yes [id number] 30mg Take 1 [facility] ers 30 mg 12 hr 2-15 tablet by ity of tablet 00:00: mouth [place] 00 every 12 Medical (twelve) Branch hours. Indication s: acute pain glimepiride 2021-03 Yes [id number] 1mg Take 1 [facility] (AMARYL) 1 2-15 tablet by ity of mg tablet 00:00: mouth [place] 00 daily with Medical breakfast. Branch pregabalin 2021-03 Yes [id number] 100mg Take 1 [facility] 100 mg 2-15 capsule by ity of capsule 00:00: mouth in [place] 00 the Medical morning Branch and 1 capsule in the evening. methocarbam 2021-03 Yes [id number] 1000mg Take 2 [facility] oL 500 mg 2-15 tablets by ity of tablet 00:00: mouth 4 [place] 00 (four) Medical times Branch daily. hydroCHLORO 2021-03 Yes [id number] 12.5mg Take 1 [facility] thiazide 2-15 tablet by ity of 12.5 mg 00:00: mouth in [place] tablet 00 the Medical morning. Branch losartan 50 2021-03 Yes [id number] 50mg Take 1 [facility] mg tablet 2-15 tablet by ity o f 00:00: mouth in [place] 00 the Medical morning. Branch Diclofenac 2021-03 Yes [id number] 1{dose} Apply 1 [facility] Sodium 2-15 Dose to ity of (VOLTAREN 00:00: area(s) [place] ARTHRITIS 00 every 6 Medical PAIN) 1 % (six) Branch gel hours as needed (JOINT PAIN). buprenorphi 2021-[id number] [facility] ne HCL 2-15 mcg in ity of ([place]) 00:00: cheeks 2 [place] 750 mcg 00 (two) Medical Film times Branch daily. Indication s: chronic pain morphine ER 2021-03 Yes [id number] 30mg Take 1 [facility] ers 30 mg 12 hr 2-15 tablet by ity of tablet 00:00: mouth [place] 00 every 12 Medical (twelve) Branch hours. Indication s: acute pain glimepiride 2021-03 Yes [id number] 1mg Take 1 [facility] (AMARYL) 1 2-15 tablet by ity of mg tablet 00:00: mouth [place] 00 daily with Medical breakfast. Branch pregabalin 2021-03 Yes [id number] 100mg Take 1 [facility] 100 mg 2-15 capsule by ity of capsule 00:00: mouth in [place] 00 the Medical morning Branch and 1 capsule in the evening. methocarbam 2021-03 Yes [id number] 1000mg Take 2 [facility] oL 500 mg 2-15 tablets by ity of tablet 00:00: mouth 4 [place] 00 (four) Medical times Branch daily. hydroCHLORO 2021-03 Yes [id number] 12.5mg Take 1 [facility] thiazide 2-15 tablet by ity of 12.5 mg 00:00: mouth in [place] tablet 00 the Medical morning. Branch losartan 50 2021-03 Yes [id number] 50mg Take 1 [facility] mg tablet 2-15 tablet by ity o f 00:00: mouth in [place] 00 the Medical morning. Branch Diclofenac 2021-03 Yes [id number] 1{dose} Apply 1 [facility] Sodium 2-15 Dose to ity of (VOLTAREN 00:00: area(s) [place] ARTHRITIS 00 every 6 Medical PAIN) 1 % (six) Branch gel hours as needed (JOINT PAIN). buprenorphi 2021-[id number] [facility] ne HCL 2-15 mcg in ity of ([place]) 00:00: cheeks 2 [place] 750 mcg 00 (two) Medical Film times Branch daily. Indication s: chronic pain morphine ER 2021-03 Yes [id number] 30mg Take 1 [facility] ers 30 mg 12 hr 2-15 tablet by ity of tablet 00:00: mouth [place] 00 every 12 Medical (twelve) Branch hours. Indication s: acute pain glimepiride 2021-03 Yes [id number] 1mg Take 1 [facility] (AMARYL) 1 2-15 tablet by ity of mg tablet 00:00: mouth [place] 00 daily with Medical breakfast. Branch pregabalin 2021-03 Yes [id number] 100mg Take 1 [facility] 100 mg 2-15 capsule by ity of capsule 00:00: mouth in [place] 00 the Medical morning Branch and 1 capsule in the evening. methocarbam 2021-03 Yes [id number] 1000mg Take 2 [facility] oL 500 mg 2-15 tablets by ity of tablet 00:00: mouth 4 [place] 00 (four) Medical times Branch daily. hydroCHLORO 2021-03 Yes [id number] 12.5mg Take 1 [facility] thiazide 2-15 tablet by ity of 12.5 mg 00:00: mouth in [place] tablet 00 the Medical morning. Branch losartan 50 2021-03 Yes [id number] 50mg Take 1 [facility] mg tablet 2-15 tablet by ity o f 00:00: mouth in [place] 00 the Medical morning. Branch Diclofenac 2021-03 Yes [id number] 1{dose} Apply 1 [facility] Sodium 2-15 Dose to ity of (VOLTAREN 00:00: area(s) [place] ARTHRITIS 00 every 6 Medical PAIN) 1 % (six) Branch gel hours as needed (JOINT PAIN). buprenorphi 2021-[id number] [facility] ne HCL 2-15 mcg in ity of ([place]) 00:00: cheeks 2 [place] 750 mcg 00 (two) Medical Film times Branch daily. Indication s: chronic pain morphine ER 2021-03 Yes [id number] 30mg Take 1 [facility] ers 30 mg 12 hr 2-15 tablet by ity of tablet 00:00: mouth [place] 00 every 12 Medical (twelve) Branch hours. Indication s: acute pain glimepiride 2021-03 Yes [id number] 1mg Take 1 [facility] (AMARYL) 1 2-15 tablet by ity of mg tablet 00:00: mouth [place] 00 daily with Medical breakfast. Branch pregabalin 2021-03 Yes [id number] 100mg Take 1 [facility] 100 mg 2-15 capsule by ity of capsule 00:00: mouth in [place] 00 the Medical morning Branch and 1 capsule in the evening. methocarbam 2021-03 Yes [id number] 1000mg Take 2 [facility] oL 500 mg 2-15 tablets by ity of tablet 00:00: mouth 4 [place] 00 (four) Medical times Branch daily. hydroCHLORO 2021-03 Yes [id number] 12.5mg Take 1 [facility] thiazide 2-15 tablet by ity of 12.5 mg 00:00: mouth in [place] tablet 00 the Medical morning. Branch losartan 50 2021-03 Yes [id number] 50mg Take 1 [facility] mg tablet 2-15 tablet by ity o f 00:00: mouth in [place] 00 the Medical morning. Branch Diclofenac 2021-03 Yes [id number] 1{dose} Apply 1 [facility] Sodium 2-15 Dose to ity of (VOLTAREN 00:00: area(s) [place] ARTHRITIS 00 every 6 Medical PAIN) 1 % (six) Branch gel hours as needed (JOINT PAIN). buprenorphi 2021-[id number] [facility] ne HCL 2-15 mcg in ity of ([place]) 00:00: cheeks 2 [place] 750 mcg 00 (two) Medical Film times Branch daily. Indication s: chronic pain morphine ER 2021-03 Yes [id number] 30mg Take 1 [facility] ers 30 mg 12 hr 2-15 tablet by ity of tablet 00:00: mouth [place] 00 every 12 Medical (twelve) Branch hours. Indication s: acute pain glimepiride 2021-03 Yes [id number] 1mg Take 1 [facility] (AMARYL) 1 2-15 tablet by ity of mg tablet 00:00: mouth [place] 00 daily with Medical breakfast. Branch pregabalin 2021-03 Yes [id number] 100mg Take 1 [facility] 100 mg 2-15 capsule by ity of capsule 00:00: mouth in [place] 00 the Medical morning Branch and 1 capsule in the evening. methocarbam 2021-03 Yes [id number] 1000mg Take 2 [facility] oL 500 mg 2-15 tablets by ity of tablet 00:00: mouth 4 [place] 00 (four) Medical times Branch daily. hydroCHLORO 2021-03 Yes [id number] 12.5mg Take 1 [facility] thiazide 2-15 tablet by ity of 12.5 mg 00:00: mouth in [place] tablet 00 the Medical morning. Branch losartan 50 2021-03 Yes [id number] 50mg Take 1 [facility] mg tablet 2-15 tablet by ity o f 00:00: mouth in [place] 00 the Medical morning. Branch Diclofenac 2021-03 Yes [id number] 1{dose} Apply 1 [facility] Sodium 2-15 Dose to ity of (VOLTAREN 00:00: area(s) [place] ARTHRITIS 00 every 6 Medical PAIN) 1 % (six) Branch gel hours as needed (JOINT PAIN). buprenorphi 2021-[id number] [facility] ne HCL 2-15 mcg in ity of (BELBUCA) 00:00: cheeks 2 [place] 750 mcg 00 (two) Medical Film times Branch daily. Indication s: chronic pain morphine ER 2021-03 Yes [id number] 30mg Take 1 Univ ers 30 mg 12 hr 2-15 tablet by ity of tablet 00:00: mouth [place] 00 every 12 Medical (twelve) Branch hours. Indication s: acute pain glimepiride 2021-03 Yes [id number] 1mg Take 1 [facility] (AMARYL) 1 2-15 tablet by ity of mg tablet 00:00: mouth [place] 00 daily with Medical breakfast. Branch pregabalin 2021-03 Yes [id number] 100mg Take 1 [facility] 100 mg 2-15 capsule by ity of capsule 00:00: mouth in [place] 00 the Medical morning Branch and 1 capsule in the evening. methocarbam 2021-03 Yes [id number] 1000mg Take 2 [facility] oL 500 mg 2-15 tablets by ity of tablet 00:00: mouth 4 [place] 00 (four) Medical times Branch daily. hydroCHLORO 2021-03 Yes [id number] 12.5mg Take 1 [facility] thiazide 2-15 tablet by ity of 12.5 mg 00:00: mouth in [place] tablet 00 the Medical morning. Branch losartan 50 2021-03 Yes [id number] 50mg Take 1 [facility] mg tablet 2-15 tablet by ity o f 00:00: mouth in [place] 00 the Medical morning. Branch Diclofenac 2021-03 Yes [id number] 1{dose} Apply 1 [facility] Sodium 2-15 Dose to ity of (VOLTAREN 00:00: area(s) [place] ARTHRITIS 00 every 6 Medical PAIN) 1 % (six) Branch gel hours as needed (JOINT PAIN). buprenorphi 2021-[id number] [facility] ne HCL 2-15 mcg in ity of (BELBUCA) 00:00: cheeks 2 [place] 750 mcg 00 (two) Medical Film times Branch daily. Indication s: chronic pain morphine ER 2021-03 Yes [id number] 30mg Take 1 [facility] ers 30 mg 12 hr 2-15 tablet by ity of tablet 00:00: mouth [place] 00 every 12 Medical (twelve) Branch hours. Indication s: acute pain glimepiride 2021-03 Yes [id number] 1mg Take 1 [facility] (AMARYL) 1 2-15 tablet by ity of mg tablet 00:00: mouth [place] 00 daily with Medical breakfast. Branch pregabalin 2021-03 Yes [id number] 100mg Take 1 [facility] 100 mg 2-15 capsule by ity of capsule 00:00: mouth in [place] 00 the Medical morning Branch and 1 capsule in the evening. methocarbam 2021-03 Yes [id number] 1000mg Take 2 [facility] oL 500 mg 2-15 tablets by ity of tablet 00:00: mouth 4 [place] 00 (four) Medical times Branch daily. hydroCHLORO 2021-03 Yes [id number] 12.5mg Take 1 [facility] thiazide 2-15 tablet by ity of 12.5 mg 00:00: mouth in [place] tablet 00 the Medical morning. Branch losartan 50 2021-03 Yes [id number] 50mg Take 1 [facility] mg tablet 2-15 tablet by ity o f 00:00: mouth in [place] 00 the Medical morning. Branch Diclofenac 2021-03 Yes [id number] 1{dose} Apply 1 [facility] Sodium 2-15 Dose to ity of (VOLTAREN 00:00: area(s) [place] ARTHRITIS 00 every 6 Medical PAIN) 1 % (six) Branch gel hours as needed (JOINT PAIN). buprenorphi 2021-[id number] [facility] ne HCL 2-15 mcg in ity of (BELBUCA) 00:00: cheeks 2 [place] 750 mcg 00 (two) Medical Film times Branch daily. Indication s: chronic pain morphine ER 2021-03 Yes [id number] 30mg Take 1 [facility] ers 30 mg 12 hr 2-15 tablet by ity of tablet 00:00: mouth [place] 00 every 12 Medical (twelve) Branch hours. Indication s: acute pain glimepiride 2021-03 Yes [id number] 1mg Take 1 [facility] (AMARYL) 1 2-15 tablet by ity of mg tablet 00:00: mouth [place] 00 daily with Medical breakfast. Branch pregabalin 2021-03 Yes [id number] 100mg Take 1 [facility] 100 mg 2-15 capsule by ity of capsule 00:00: mouth in [place] 00 the Medical morning Branch and 1 capsule in the evening. methocarbam 2021-03 Yes [id number] 1000mg Take 2 [facility] oL 500 mg 2-15 tablets by ity of tablet 00:00: mouth 4 [place] 00 (four) Medical times Branch daily. hydroCHLORO 2021-03 Yes [id number] 12.5mg Take 1 [facility] thiazide 2-15 tablet by ity of 12.5 mg 00:00: mouth in [place] tablet 00 the Medical morning. Branch losartan 50 2021-03 Yes [id number] 50mg Take 1 [facility] mg tablet 2-15 tablet by ity o f 00:00: mouth in [place] 00 the Medical morning. Branch Diclofenac 2021-03 Yes [id number] 1{dose} Apply 1 [facility] Sodium 2-15 Dose to ity of (VOLTAREN 00:00: area(s) [place] ARTHRITIS 00 every 6 Medical PAIN) 1 % (six) Branch gel hours as needed (JOINT PAIN). buprenorphi 2021-[id number] [facility] ne HCL 2-15 mcg in ity of (BELBUCA) 00:00: cheeks 2 [place] 750 mcg 00 (two) Medical Film times Branch daily. Indication s: chronic pain morphine ER 2021-03 Yes [id number] 30mg Take 1 [facility] ers 30 mg 12 hr 2-15 tablet by ity of tablet 00:00: mouth [place] 00 every 12 Medical (twelve) Branch hours. Indication s: acute pain glimepiride 2021-03 Yes [id number] 1mg Take 1 [facility] (AMARYL) 1 2-15 tablet by ity of mg tablet 00:00: mouth [place] 00 daily with Medical breakfast. Branch pregabalin 2021-03 Yes [id number] 100mg Take 1 [facility] 100 mg 2-15 capsule by ity of capsule 00:00: mouth in [place] 00 the Medical morning Branch and 1 capsule in the evening. methocarbam 2021-03 Yes [id number] 1000mg Take 2 [facility] oL 500 mg 2-15 tablets by ity of tablet 00:00: mouth 4 [place] 00 (four) Medical times Branch daily. hydroCHLORO 2021-03 Yes [id number] 12.5mg Take 1 [facility] thiazide 2-15 tablet by ity of 12.5 mg 00:00: mouth in [place] tablet 00 the Medical morning. Branch losartan 50 2021-03 Yes [id number] 50mg Take 1 [facility] mg tablet 2-15 tablet by ity o f 00:00: mouth in [place] 00 the Medical morning. Branch Diclofenac 2021-03 Yes [id number] 1{dose} Apply 1 [facility] Sodium 2-15 Dose to ity of (VOLTAREN 00:00: area(s) [place] ARTHRITIS 00 every 6 Medical PAIN) 1 % (six) Branch gel hours as needed (JOINT PAIN). buprenorphi 2021-[id number] [facility] ne HCL 2-15 mcg in ity of (BELBUCA) 00:00: cheeks 2 [place] 750 mcg 00 (two) Medical Film times Branch daily. Indication s: chronic pain DULoxetine 2021-03- Yes [id number] 20mg Take 1 [facility] (CYMBALTA) 2-15 01-15 capsule by it y of 20 mg 00:00: 05:59 mouth in [place] capsule 00 :00 the Medical morning Branch for 30 days. ibuprofen 2021-03- Yes [id number] 600mg Take 1 [facility] 600 mg 2-15 01-15 tablet by ity of tablet 00:00: 05:59 mouth [place] 00 :00 every 6 Medical (six) Branch hours as needed for Pain (scale 4-6) for up to 30 days. DULoxetine 2021-03- Yes [id number] 20mg Take 1 [facility] (CYMBALTA) 2-15 01-15 capsule by it y of 20 mg 00:00: 05:59 mouth in [place] capsule 00 :00 the Medical morning Branch for 30 days. ibuprofen 2021-03- Yes [id number] 600mg Take 1 [facility] 600 mg 2-15 01-15 tablet by ity of tablet 00:00: 05:59 mouth [place] 00 :00 every 6 Medical (six) Branch hours as needed for Pain (scale 4-6) for up to 30 days. DULoxetine 2021-03- Yes [id number] 20mg Take 1 [facility] (CYMBALTA) 2-15 01-15 capsule by it y of 20 mg 00:00: 05:59 mouth in [place] capsule 00 :00 the Medical morning Branch for 30 days. ibuprofen 2021-03- Yes [id number] 600mg Take 1 [facility] 600 mg 2-15 01-15 tablet by ity of tablet 00:00: 05:59 mouth [place] 00 :00 every 6 Medical (six) Branch hours as needed for Pain (scale 4-6) for up to 30 days. DULoxetine 2021-03- Yes [id number] 20mg Take 1 [facility] (CYMBALTA) 2-15 01-15 capsule by it y of 20 mg 00:00: 05:59 mouth in [place] capsule 00 :00 the Medical morning Branch for 30 days. ibuprofen 2021-03- Yes [id number] 600mg Take 1 [facility] 600 mg 2-15 -15 tablet by ity of tablet 00:00: 05:59 mouth [place] 00 :00 every 6 Medical (six) Branch hours as needed for Pain (scale 4-6) for up to 30 days. DULoxetine 2021-03- Yes [id number] 20mg Take 1 [facility] (CYMBALTA) 2-15 -15 capsule by it y of 20 mg 00:00: 05:59 mouth in [place] capsule 00 :00 the Medical morning Branch for 30 days. ibuprofen 2021-03- Yes [id number] 600mg Take 1 [facility] 600 mg 2-15 -15 tablet by ity of tablet 00:00: 05:59 mouth [place] 00 :00 every 6 Medical (six) Branch hours as needed for Pain (scale 4-6) for up to 30 days. DULoxetine 2021-03- Yes [id number] 20mg Take 1 [facility] (CYMBALTA) 2-15 -15 capsule by it y of 20 mg 00:00: 05:59 mouth in [place] capsule 00 :00 the Medical morning Branch for 30 days. ibuprofen 2021-03- Yes [id number] 600mg Take 1 [facility] 600 mg 2-15 -15 tablet by ity of tablet 00:00: 05:59 mouth [place] 00 :00 every 6 Medical (six) Branch hours as needed for Pain (scale 4-6) for up to 30 days. DULoxetine 2021-03- Yes [id number] 20mg Take 1 [facility] (CYMBALTA) 2-15 -15 capsule by it y of 20 mg 00:00: 05:59 mouth in [place] capsule 00 :00 the Medical morning Branch for 30 days. ibuprofen 2021-03- Yes [id number] 600mg Take 1 [facility] 600 mg 2-15 -15 tablet by ity of tablet 00:00: 05:59 mouth [place] 00 :00 every 6 Medical (six) Branch hours as needed for Pain (scale 4-6) for up to 30 days. DULoxetine 2021-03- Yes [id number] 20mg Take 1 [facility] (CYMBALTA) 2-15 -15 capsule by it y of 20 mg 00:00: 05:59 mouth in [place] capsule 00 :00 the Medical morning Branch for 30 days. ibuprofen 2021-03- Yes [id number] 600mg Take 1 [facility] 600 mg 2-15 -15 tablet by ity of tablet 00:00: 05:59 mouth [place] 00 :00 every 6 Medical (six) Branch hours as needed for Pain (scale 4-6) for up to 30 days. DULoxetine 2021-03- Yes [id number] 20mg Take 1 [facility] (CYMBALTA) 2-15 -15 capsule by it y of 20 mg 00:00: 05:59 mouth in [place] capsule 00 :00 the Medical morning Branch for 30 days. ibuprofen 2021-03- Yes [id number] 600mg Take 1 [facility] 600 mg 2-15 -15 tablet by ity of tablet 00:00: 05:59 mouth [place] 00 :00 every 6 Medical (six) Branch hours as needed for Pain (scale 4-6) for up to 30 days. DULoxetine 2021-03- Yes [id number] 20mg Take 1 [facility] (CYMBALTA) 2-15 -15 capsule by it y of 20 mg 00:00: 05:59 mouth in [place] capsule 00 :00 the Medical morning Branch for 30 days. ibuprofen 2021-03- Yes [id number] 600mg Take 1 [facility] 600 mg 2-15 -15 tablet by ity of tablet 00:00: 05:59 mouth [place] 00 :00 every 6 Medical (six) Branch hours as needed for Pain (scale 4-6) for up to 30 days. DULoxetine 2021-03- Yes [id number] 20mg Take 1 [facility] (CYMBALTA) 2-15 -15 capsule by it y of 20 mg 00:00: 05:59 mouth in [place] capsule 00 :00 the Medical morning Branch for 30 days. ibuprofen 2021-03- Yes [id number] 600mg Take 1 [facility] 600 mg 2-15 -15 tablet by ity of tablet 00:00: 05:59 mouth [place] 00 :00 every 6 Medical (six) Branch hours as needed for Pain (scale 4-6) for up to 30 days. DULoxetine 2021-03- Yes [id number] 20mg Take 1 [facility] (CYMBALTA) 2-15 -15 capsule by it y of 20 mg 00:00: 05:59 mouth in [place] capsule 00 :00 the Medical morning Branch for 30 days. ibuprofen 2021-03- Yes [id number] 600mg Take 1 [facility] 600 mg 2-15 -15 tablet by ity of tablet 00:00: 05:59 mouth [place] 00 :00 every 6 Medical (six) Branch hours as needed for Pain (scale 4-6) for up to 30 days. dexAMETHaso 2021-03- Yes [id number] Take 1 [facility] ne 4 mg 2-15 -05 tablet by ity of tablet 00:00: 05:59 mouth [place] 00 :00 every 12 Medical (twelve) Branch hours for 6 days, THEN 1 tablet daily for 7 days, THEN 0.5 tablets daily for 7 days. dexAMETHaso 2021-03- Yes [id number] Take 1 [facility] ne 4 mg 2-15 -05 tablet by ity of tablet 00:00: 05:59 mouth [place] 00 :00 every 12 Medical (twelve) Branch hours for 6 days, THEN 1 tablet daily for 7 days, THEN 0.5 tablets daily for 7 days. dexAMETHaso 2021-03- Yes [id number] Take 1 [facility] ne 4 mg 2-15 -05 tablet by ity of tablet 00:00: 05:59 mouth [place] 00 :00 every 12 Medical (twelve) Branch hours for 6 days, THEN 1 tablet daily for 7 days, THEN 0.5 tablets daily for 7 days. HYDROcodone 2021-03- Yes [id number] 1{tbl} Take 1 U nivers -acetaminop 2-15 - tablet by it y of hen (NORCO) 00:00: 05:59 mouth [place] 10-325 mg 00 :00 every 6 Medical tablet (six) Branch hours as needed for Pain (scale 7-10) for up to 7 days. Indication s: acute pain, chronic pain HYDROcodone 2021-03- Yes [id number] 1{tbl} Take 1 U nivers -acetaminop 2-15 12-23 tablet by it y of hen (NORCO) 00:00: 05:59 mouth [place] 10-325 mg 00 :00 every 6 Medical tablet (six) Branch hours as needed for Pain (scale 7-10) for up to 7 days. Indication s: acute pain, chronic pain HYDROcodone 2021-03- Yes [id number] 1{tbl} Take 1 U nivers -acetaminop 2-15 12-23 tablet by it y of hen (NORCO) 00:00: 05:59 mouth [place] 10-325 mg 00 :00 every 6 Medical tablet (six) Branch hours as needed for Pain (scale 7-10) for up to 7 days. Indication s: acute pain, chronic pain dexAMETHaso 2021-03- No [id number] Take 1 [facility] ne 4 mg 2-15 12-15 tablet by ity of tablet 00:00: 00:00 mouth [place] 00 :00 every 12 Medical (twelve) Branch hours for 6 days, THEN 1 tablet daily for 7 days, THEN ? tablet daily for 7 days. losartan-hy 2021-03- No [id number] 1{tbl} Take 1 [facility] drochloroth 2-15 12-15 tablet by it y of iazide 00:00: 00:00 mouth in [place] 50-12.5 mg 00 :00 the Medical per tablet morning. Branc h losartan 50 2021-03- No [id number] 50mg Take 1 [facility] mg tablet 2-15 12-15 tablet by ity of 00:00: 00:00 mouth in [place] 00 :00 the Medical morning. Branch hydroCHLORO 2021-03- No [id number] 12.5mg Take 1 [facility] thiazide 2-15 12-15 tablet by ity o f 12.5 mg 00:00: 00:00 mouth in [place] tablet 00 :00 the Medical morning. Branch buprenorphi 2021-03- No [id number] [facility] ne HCL 2-15 12-15 mcg in ity of (BELCA) 00:00: 00:00 cheeks 2 [place] 750 mcg 00 :00 (two) Medical Film times Branch daily. Indication s: chronic pain sennosides- 2021-03 Yes 1{tbl} 1 tablet, [facility] docusate 2-14 Oral, ity of sodium 15:00: DAILY, [place] (SENOKOT-S) 00 First dose Me dical 8.6-50 mg on Sat per tablet 02/14/22 1 tablet at 0900, Until Discontinu ed, Routine bisacodyL 2021-03 Yes 5mg 5 mg, Univers (DULCOLAX) 2-14 Oral, ity of tablet 5 mg 14:19: QDAILYPRN, [place] 59 Starting Medical on Sat02/14/22 at 0819, Until Discontinu ed, Routine, Constipati on insulin 2021-03- No 10U 10 Units, Univ ers glargine 2- 12-14 Subcutaneo ity of (LANTUS 03:00: 18:03 us, QHS, [place] U-100) 00 :35 First dose Medical injection (after Branch 10 Units last modificati on) on Sat02/13/22 at 2100, Until Discontinu ed, Routine contrast 2021-03- No [id number] Intravenou Univers previously 2- 12-13 s, ONCE, 1 it y of administere 23:45: 23:45 dose, On [place] d 0 mL 00 :00 Sat [facility] 02/13/22 Branch at 1745, Routine Sliding 2021-03 Yes Subcutaneo Univ ers Scale 2-12 us, Q4H, ity of Insulin - 22:00: First dose [place] Lispro 00 (after Medical (HumaLOG) + last Branch Fsbg modificati Testing on) on Sat02/12/22 at 1600, Until Discontinu ed, Routine Sliding 2021-03- No Subcutaneo Uni vers Scale 2-12 12-15 us, Q4H, ity of Insulin - 22:00: 00:05 First dose [place] Lispro 00 :54 (after Medical (HumaLOG) + last Branch Fsbg modificati Testing on) on Sat02/12/22 at 1600, Until Discontinu ed, Routine dexAMETHaso 2021-03 Yes 8mg 8 mg, Unive rs ne 2-12 Oral, ity of (DECADRON) 14:00: Q12H, [place] tablet 8 mg 00 First dose Me dical on Sat12/22 at 0800, Until Discontinu ed, Routine dexAMETHaso 2021-03- No 8mg 8 mg, Univ ers ne 04-15 Oral, ity of (DECADRON) 14:00: 19:17 Q12H, [place] tablet 8 mg 00 :57 First dose Me dical on Sat Branch 02/12/22 at 0800, Until Discontinu ed, Routine Sliding 2021-03- No Subcutaneo Uni vers Scale 04-15 us, Q4H, ity of Insulin - 14:00: 19:27 First dose [place] Lispro 00 :38 (after Medical (HumaLOG) + last Branch Fsbg modificati Testing on) on Sat02/12/22 at 0800, Until Discontinu ed, Routine dextrose 2021-03 Yes 250mL 250 mL, IV Un lazara 10% (D10W) 2-12 Infusion, ity of bolus 12:07: PRN - SEE [place] infusion 02 INSTRUCTIO Medic al 250 mL NS, Branch Administer over 60 Minutes, Other, If blood glucose is < or = 70 mg/dL and patient is unable to swallow or has mental status changes, Starting on Sat02/12/22 at 0607
If blood glucose is < or = 70 mg/dL and patient is unable to swallow or has mental status changes (Give glucagon order if patient needs fluid restrictio n): IF IV access available: Dextrose 10%. 1. 125 mL (? bag) of D10W IV infusion - equivalent to 12.5 g dextrose 2. Blood glucose - draw blood glucose 15 minutes after D10W Administra tion. 3. If blood glucose is < 80 mg/dL, repeat.
dextrose 2021-03 Yes 250mL 250 mL, IV Un lazara 10% (D10W) 2-12 Infusion, ity of bolus 12:07: PRN - SEE [place] infusion 02 INSTRUCTIO Medic al 250 mL NS, Branch Administer over 60 Minutes, Other, If blood glucose is < or = 70 mg/dL and patient is unable to swallow or has mental status changes, Starting on Sat02/12/22 at 0607
If blood glucose is < or = 70 mg/dL and patient is unable to swallow or has mental status changes (Give glucagon order if patient needs fluid restrictio n): IF IV access available: Dextrose 10%. 1. 125 mL (? bag) of D10W IV infusion - equivalent to 12.5 g dextrose 2. Blood glucose - draw blood glucose 15 minutes after D10W Administra tion. 3. If blood glucose is < 80 mg/dL, repeat.
glucagon 2021-03 Yes 1mg 1 mg, Univers (GLUCAGEN 2-12 Intramuscu ity of DIAGNOSTIC 12:07: lar, PRN, [place] KIT) 00 Starting Medical injection 1 on [facility] 02/12/22 at 0607, Until Discontinu ed, [place], Blood Glucose < or = 70 mg/dL and patient is unable to swallow or has mental changes. glucagon 2021-03 Yes 1mg 1 mg, Univers (GLUCAGEN 2-12 Intramuscu ity of DIAGNOSTIC 12:07: lar, PRN, [place] KIT) 00 Starting Medical injection 1 on [facility] 02/12/22 at 0607, Until Discontinu ed, [place], Blood Glucose < or = 70 mg/dL and patient is unable to swallow or has mental changes. Sliding 2021-03- No Subcutaneo Uni vers Scale 04-1512 us, Q4H ity of Insulin - 05:00: 12:07 ABX, First [place] Lispro 00 :41 dose Medical (HumaLOG) + (after Branch Fsbg last Testing modificati on) on [place] 02/11/22 at 2300, Until Discontinu ed, Routine insulin 2021-03 Yes 10U 10 Units, Unive rs glargine -12 Subcutaneo ity o f (LANTUS 03:00: us, [facility], [place] U-100) 00 First dose Medical injection (after Branch 10 Units last modificati on) on [place] 02/11/22 at 2100, Until Discontinu ed, Routine insulin 2021-03- No 10U 10 Units, Univ ers glargine 04-15-13 Subcutaneo ity of (LANTUS 03:00: 12:07 us, Q, [place] U-100) 00 :05 First dose Medical injection (after Branch 10 Units last modificati on) on 02/11/22 at 2100, Until Discontinu ed, Routine morphine ER 2021-03 Yes 45mg 45 mg, Univ ers (MS CONTIN) 2-12 Oral, ity of 12 hr 02:00: Q12H, [place] tablet 45 00 First dose Medi jessica mg (after Branch last modificati on) on 02/11/22 at 2000, Until Discontinu ed, Routine morphine ER 2021-03 Yes 45mg 45 mg, Univ ers (MS CONTIN) 2-12 Oral, ity of 12 hr 02:00: Q12H, [place] tablet 45 00 First dose Medi jessica mg (after Branch last modificati on) on 02/11/22 at 2000, Until Discontinu ed, Routine Sliding 2021-03 No Subcutaneo Uni vers Scale 04-14 us, Q4H, ity of Insulin - 23:15: 02:28 First dose [place] Lispro 00 :59 (after Medical (HumaLOG) + last Branch Fsbg modificati Testing on) on [place] 02/11/22 at 1715, Until Discontinu ed, Routine dexamethaso 2021-03- No 10mg 10 mg, Uni vers ne sod phos 04-14 Intravenou i ty of PF 17:45: 17:59 s, ONCE, 1 [place] injection 00 :00 dose, On Medica l 10 mg [place] Branch 02/11/22 at 1145, 1 mL morpHINE (2021-03 Yes 4mg 4 mg, Slow Univers mg/mL) 04-12 IV Push, ity of injection 4 22:45: Q3HPRN, [place] mg 00 Starting Medical on Sat Branch 02/09/22 at 1645, Until Discontinu ed, Routine, Pain (scale 7-10) morpHINE (4 2021-03- No 4mg 4 mg, Slow [facility] mg/mL) 202-15 IV Push, ity of injection 4 22:45: 17:10 Q3HPRN, [place] mg 00 :59 Starting Medical on Sat Branch 02/09/22 at 1645, Until [place] 02/15/22 at 1110, Routine, Pain (scale 7-10) HYDROmorpho 2021-03- No .2mg 0.2 mg, Un lazara ne 04-12 Slow IV ity of (DILAUDID) 20:45: 21:34 Push, [place] injection 25 :00 Q5MIN PRN, Medi jessica 0.2 mg 10 doses, Branch Starting on Sat02/09/22 at 1445, Until Sat02/09/22 at 1534, Routine, Pain (scale 7-10), PACU
Us e approved by (Faculty): PACU USE -ANESTHESI A SERVICE-HY DROMORPHON E INJECTIONS FENTanyl PF 2021-03- No 25ug 25 mcg, Un lazara (SUBLIMAZE 04-12 Slow IV ity o f (PF)) 20:26: 20:40 Push, [place] injection 42 :00 Q5MIN PRN, Medi jessica 25 mcg 4 doses, Branch Starting on Sat02/09/22 at 1426, Until Sat02/09/22 at 1440, Routine, Pain (scale 4-6), PACU iopamidol 2021-03- No [id number] 80mL 80 mL, Univers (ISOVUE 04-12 Intravenou ity o f 370-500 mL) 20:00: 19:59 s, ONCE, 1 [place] injection 00 :00 dose, On Medica l 80 mL Fri Branch 02/09/22 at 1400, Routine NaCl 0.9% 2021-03- No 1000mL at 75 Univ ers (NS) IV 04-12 12-11 mL/hr, IV ity of infusion 17:15: 11:41 Infusion, Noe as 1,000 mL 00 :56 CONTINUOUS Medic al , Starting Branch on Sat02/09/22 at 1115, Until 02/11/22 at 0541, Routine amLODIPine 2021-03- No 10mg Take 10 mg Univers 10 mg 04-11 by mouth ity of tablet 14:40: 00:00 daily. [place] 58 :00 Medical Branch losartan-hy 2021-03- No 1{tbl} Take 1 U nivers drochloroth 04-11 tablet by it y of iazide 14:40: 00:00 mouth [place] 50-12.5 mg 58 :00 daily. Medical per tablet Branch amLODIPine 2021-03- No 10mg Take 10 mg Univers 10 mg 2-08 12-08 by mouth ity of tablet 14:40: 00:00 daily. [place] 58 :00 Medical Branch losartan-hy 2021-2021- No 1{tbl} Take 1 U nivers drochloroth 2- 12-08 tablet by it y of iazide 14:40: 00:00 mouth [place] 50-12.5 mg 58 :00 daily. Medical per tablet Branch amLODIPine 2021-03- No 10mg Take 10 mg Univers 10 mg 2- 12-08 by mouth ity of tablet 14:40: 00:00 daily. [place] 58 :00 Medical Branch losartan-hy 2021-03- No 1{tbl} Take 1 U nivers drochloroth 2- 12-08 tablet by it y of iazide 14:40: 00:00 mouth [place] 50-12.5 mg 58 :00 daily. Medical per tablet Branch ibuprofen 2021-03 Yes 600mg Take 600 Uni vers 600 mg 2-08 mg by ity of tablet 14:40: mouth [place] 56 every 6 Medical (six) Branch hours as needed for Pain (scale 4-6). Diclofenac 2021-03 Yes 1{dose} Apply 1 U nivers Sodium 2-08 Dose to ity of (VOLTAREN 14:40: area(s) [place] ARTHRITIS 56 every 6 Medical PAIN) 1 % (six) Branch gel hours as needed (JOINT PAIN). glimepiride 2021-03 Yes 1mg Take 1 mg U nivers (AMARYL) 1 2-08 by mouth ity o f mg tablet 14:40: daily with [place] 56 breakfast. Medical Branch methocarbam 2021-03 Yes 500mg Take 500 U nivers oL 500 mg 2-08 mg by ity of tablet 14:40: mouth 4 [place] 56 (four) Medical times Branch daily as needed for Other (MUSCLE SPASM). pregabalin 2021-03 Yes 75mg Take 75 mg U nivers (LYRICA) 75 2-08 by mouth 2 it y of mg capsule 14:40: (two) [place] 56 times Medical daily. Branch DULoxetine 2021-03 Yes 20mg Take 20 mg U nivers (CYMBALTA) 2-08 by mouth ity o f 20 mg 14:40: daily. [place] capsule 56 Medical Branch melatonin 3 2021-03 Yes 3mg Take 3 mg U nivers mg tablet 2-08 by mouth ity of 14:40: at bedtime [place] 56 as needed Medical for Branch Insomnia. HYDROcodone 2021-03 Yes 1{tbl} Take 1 Un lazara -acetaminop 2-08 tablet by ity of hen (NORCO) 14:40: mouth [place] 10-325 mg 56 every 6 Medical tablet (six) Branch hours as needed for Pain (scale 7-10). buprenorphi 2021-[address] Univers ne HCL 2-08 mcg in ity of (BELBUCA) 14:40: cheeks 2 [place] 750 mcg 56 (two) Medical Film times Branch daily. Indication s: chronic pain ibuprofen 2021-03 Yes 600mg Take 600 Uni vers 600 mg 2-08 mg by ity of tablet 14:40: mouth [place] 56 every 6 Medical (six) Branch hours as needed for Pain (scale 4-6). Diclofenac 2021-03 Yes 1{dose} Apply 1 U nivers Sodium 2-08 Dose to ity of (VOLTAREN 14:40: area(s) [place] ARTHRITIS 56 every 6 Medical PAIN) 1 % (six) Branch gel hours as needed (JOINT PAIN). glimepiride 2021-03 Yes 1mg Take 1 mg U nivers (AMARYL) 1 2-08 by mouth ity o f mg tablet 14:40: daily with [place] 56 breakfast. Medical Branch methocarbam 2021-03 Yes 500mg Take 500 U nivers oL 500 mg 2-08 mg by ity of tablet 14:40: mouth 4 [place] 56 (four) Medical times Branch daily as needed for Other (MUSCLE SPASM). pregabalin 2021-03 Yes 75mg Take 75 mg U nivers (LYRICA) 75 2-08 by mouth 2 it y of mg capsule 14:40: (two) [place] 56 times Medical daily. Branch DULoxetine 2021-03 Yes 20mg Take 20 mg U nivers (CYMBALTA) 2-08 by mouth ity o f 20 mg 14:40: daily. [place] capsule 56 Medical Branch melatonin 3 2021-03 Yes 3mg Take 3 mg U nivers mg tablet 2-08 by mouth ity of 14:40: at bedtime [place] 56 as needed Medical for Branch Insomnia. HYDROcodone 2021-03 Yes 1{tbl} Take 1 Un lazara -acetaminop 2-08 tablet by ity of hen (NORCO) 14:40: mouth [place] 10-325 mg 56 every 6 Medical tablet (six) Branch hours as needed for Pain (scale 7-10). buprenorphi 2021-[address] [facility] ne HCL 2-08 mcg in ity of (BELBUCA) 14:40: cheeks 2 [place] 750 mcg 56 (two) Medical Film times Branch daily. Indication s: chronic pain pregabalin 2021-03 Yes 100mg 100 mg, Uni vers (LYRICA) 2-08 Oral, BID, ity o f capsule 100 02:00: First dose [place] mg 00 (after Medical last Branch modificati on) on Sat02/07/22 at 1999, Until Discontinu ed, Routine pregabalin 2021-03 Yes 100mg 100 mg, Uni vers (LYRICA) 2-08 Oral, BID, ity o f capsule 100 02:00: First dose [place] mg 00 (after Medical last Branch modificati on) on Sat02/07/22 at 1999, Until Discontinu ed, Routine methocarbam 2021-03- Yes [id number] 1000mg Take 1,000 Univers oL 1,000 mg 2-08 03-09 mg by ity of Tab 00:00: 05:59 mouth 4 [place] 00 :00 (four) Medical times Branch daily for 90 days. pregabalin 2021-03- Yes [id number] 100mg Take 1 [facility] 100 mg 2-08 03-09 capsule by ity of capsule 00:00: 05:59 mouth in [place] 00 :00 the Medical morning Branch and 1 capsule in the evening. Do all this for 90 days. methocarbam 2021-03- Yes [id number] 1000mg Take 1,000 [facility] oL 1,000 mg 2-08 03-09 mg by ity of Tab 00:00: 05:59 mouth 4 [place] 00 :00 (four) Medical times Branch daily for 90 days. pregabalin 2021-03- Yes [id number] 100mg Take 1 [facility] 100 mg 2-08 03-09 capsule by ity of capsule 00:00: 05:59 mouth in [place] 00 :00 the Medical morning Branch and 1 capsule in the evening. Do all this for 90 days. morphine ER 2021-03- Yes [id number] 30mg Take 1 Uni vers 30 mg 12 hr 2-08 12-16 tablet by it y of tablet 00:00: 05:59 mouth [place] 00 :00 every 12 Medical (twelve) Branch hours for 7 days. Indication s: acute pain morphine ER 2021-03- Yes 4647 30mg Take 1 Uni vers 30 mg 12 hr 2-08 12-16 tablet by it y of tablet 00:00: 05:59 mouth [place] 00 :00 every 12 Medical (twelve) Branch hours for 7 days. Indication s: acute pain morphine ER 2021-03- No 4647 30mg Take 1 Uni vers 30 mg 12 hr 2-08 12-15 tablet by it y of tablet 00:00: 00:00 mouth [place] 00 :00 every 12 Medical (twelve) Branch hours for 7 days. Indication s: acute pain methocarbam 2021-03- No [id number] 1000mg Take 1,000 Univers oL 1,000 mg 2-08 12-15 mg by ity of Tab 00:00: 00:00 mouth 4 [place] 00 :00 (four) Medical times Branch daily for 90 days. pregabalin 2021-03- No [id number] 100mg Take 1 [facility] 100 mg 2 12-15 capsule by ity of capsule 00:00: 00:00 mouth in [place] 00 :00 the Medical morning Branch and 1 capsule in the evening. Do all this for 90 days. methocarbam 2021-03 Yes 1000mg 1,000 mg, [facility] oL 2-07 Oral, QID, ity of (ROBAXIN) 18:00: First dose [place] tablet 00 (after Medical 1,000 mg last Branch modificati on) on Sat02/07/22 at 1200, Until Discontinu ed, Routine methocarbam 2021-03 Yes 1000mg 1,000 mg, Univers oL 2-07 Oral, QID, ity of (ROBAXIN) 18:00: First dose [place] tablet 00 (after Medical 1,000 mg last Branch modificati on) on Sat02/07/22 at 1200, Until Discontinu ed, Routine morpHINE (4 2021-03 No 4mg 4 mg, Slow Univers mg/mL) 04-10 IV Push, ity of injection 4 16:00: 22:35 Q4HPRN, [place] mg 00 :09 Starting Medical on Sat02/07/22 at 1000, Until Sat02/09/22 at 1635, Routine, Pain (scale 7-10) methocarbam 2021-03 No 750mg 750 mg, U nivers oL 04-09 Oral, QID, ity of (ROBAXIN) 18:00: 15:45 First dose [place] tablet 750 00 :28 (after Medical mg last Branch modificati on) on Sat02/06/22 at 1200, Until Discontinu ed, Routine morphine ER 2021-03 No 30mg 30 mg, Uni vers (MS CONTIN) 04-09 Oral, ity of 12 hr 02:00: 16:54 Q12H, [place] tablet 30 00 :10 First dose Medi jessica mg (after Branch last modificati on) on Sat02/05/22 at 2000, Until Discontinu ed, Routine dexAMETHaso 2021-03 No 8mg 8 mg, Univ ers ne 04-09 Oral, ity of (DECADRON) 02:00: 16:17 Q12H, [place] tablet 8 mg 00 :24 First dose Me dical on Sat02/05/22 at 2000, Until Discontinu ed, Routine iopamidol 2021-03 [id number] 80mL 80 mL, Univers (ISOVUE 04-08 Intravenou ity o f 370-500 mL) 22:45: 21:43 s, ONCE, 1 [place] injection 00 :00 dose, On Medica l 80 mL Sat02/05/22 at 1645, Routine lidocaine 2021-03 PRN, Univers 1% (PF) 04-08 Starting ity of (XYLOCAINE) 21:07: 21:07 on Sat Noe as injection 38 :38 02/05/22 at Medi jessica 1507, Branch Until Discontinu ed, Routine morphine ER 2021-03 No 15mg 15 mg, Uni vers (MS CONTIN) 04-08 Oral, ity of 12 hr 17:30: 23:00 ONCE, 1 [place] tablet 15 00 :00 dose, On Medica l mg Mon Branch 02/05/22 at 1130, Routine morphine ER 2021-03 No 15mg 15 mg, Uni vers (MS CONTIN) 04-08 Oral, ity of 12 hr 02:00: 16:38 Q12H, [place] tablet 15 00 :54 First dose Medi jessica mg on [place] Branch 02/04/22 at 2000, Until Discontinu ed, Routine HYDROcodone 2021-03 No 1{tbl} 1 tablet, Univers -acetaminop 04-0704 Oral, Q4H, i ty of hen (NORCO) 18:00: 19:33 First dose [place] 10-325 mg 00 :08 (after Medical tablet 1 last Branch tablet modificati on) on [place] 02/04/22 at 1200, Until Discontinu ed, Routine methocarbam 2021-03 No 500mg 500 mg, U nivers oL 04-0606 Oral, QID, ity of (ROBAXIN) 18:00: 16:18 First dose [place] tablet 500 00 :11 on [facility] Medical mg 02/03/22 at Branch 1200, Until Discontinu ed, Routine melatonin 2021-03 Yes 3mg 3 mg, Univers (MELATIN) 2 Oral, ity of tablet 3 mg 16:00: QHSPRN, Noe as 03 Starting Medical on [facility] Branch 02/03/22 at 1000, Until Discontinu ed, Routine, Insomnia melatonin 2021-03 Yes 3mg 3 mg, Univers (MELATIN) 2 Oral, ity of tablet 3 mg 16:00: QHSPRN, Noe as 03 Starting Medical on [facility] Branch 02/03/22 at 1000, Until Discontinu ed, Routine, Insomnia morpHINE (4 2021-03 No 4mg 4 mg, Slow Univers mg/mL) 04-0607 IV Push, ity of injection 4 15:45: 15:45 Q3HPRN, [place] mg 17 :28 Starting Medical on [facility] Branch 02/03/22 at 0945, Until 02/07/22 at 0945, Routine, Pain (scale 7-10) polyethylen 2021-03 Yes 17g 17 g, Unive rs e glycol 03 Oral, ity of 3350 powder 15:00: DAILY, [place] 17 g 00 First dose Medical on [facility] 02/03/22 at 0900, Until Discontinu ed, Routine enoxaparin 2021-03 Yes 40mg 40 mg, Unive rs (LOVENOX) 04-06 Subcutaneo ity of injection 15:00: us, DAILY, [place] 40 mg 00 First dose Medical on [facility] 02/03/22 at 0900, Until Discontinu ed, Routine enoxaparin 2021-03 No 40mg 40 mg, Univ ers (LOVENOX) 04-06 12-15 Subcutaneo ity of injection 15:00: 03:13 us, DAILY, [place] 40 mg 00 :03 First dose Medical on [facility] 02/03/22 at 0900, Until Discontinu ed, Routine polyethylen 2021-03 No 17g 17 g, Univ ers e glycol 04-06 12-14 Oral, ity of 3350 powder 15:00: 14:20 DAILY, Noe as 17 g 00 :10 First dose Medical on [facility] 02/03/22 at 0900, Until Discontinu ed, Routine pantoprazol 2021-03 No 40mg 40 mg, Uni vers e 04-0606 Oral, ity of (PROTONIX) 15:00: 00:06 DAILY, [place] EC tablet 00 :00 First dose Medi jessica 40 mg on [facility] 02/03/22 at 0900, Until Discontinu ed, Routine HYDROcodone 2021-03 No 1{tbl} 1 tablet, Univers -acetaminop 04-06 1204 Oral, Q6H, i ty of hen (NORCO) 15:00: 14:15 First dose [place] 10-325 mg 00 :57 on [facility] Medical tablet 1 02/03/22 at [facility] h tablet 0900, Until Discontinu ed, Routine Sliding 2021-03 Subcutaneo Uni vers Scale 2- 12-11 us, TID ity of Insulin - 14:00: 23:10 MEALS+HS, [place] Lispro 00 :34 First dose Medical (HumaLOG) + on [facility] Fsbg 02/03/22 at Testing 0800, Until Discontinu ed, Routine pregabalin 2021-03- No 75mg 75 mg, Univ ers (LYRICA) 202-07 Oral, BID, ity of capsule 75 14:00: 15:45 First dose [place] mg 00 :28 on Sat Medical 02/03/22 at Branch 0800, Until Discontinu ed, Routine KCL 20 2021-03- No 40meq 40 mEq, Univer s mEq/15 mL 04-06 Oral, ity of solution 40 13:45: 14:21 ONCE, 1 [place] mEq 00 :00 dose, On Medical Sat [place] 02/03/22 at 0745, Routine melatonin 3 2021-03 Yes 3mg Take 3 mg U nivers mg tablet 2- by mouth ity of 10:00: at bedtime [place] [id number] as needed Medical for [place] Insomnia. melatonin 3 2021-03 Yes 3mg Take 3 mg U nivers mg tablet - by mouth ity of 10:00: at bedtime [place] [id number] as needed Medical for [place] Insomnia. lactated 2021-03- No 500mL at 42 Univer s ringers IV 04-06 mL/hr, 500 it y of infusion 08:00: 15:51 mL, IV [place] 500 mL 00 :40 Infusion, Medical CONTINUOUS [place] , Starting on 02/03/22 at 0200, Until 02/03/22 at 0951, Routine naloxone 2021-03 Yes .4mg 0.4 mg, Univer s (NARCAN) 04-06 Slow IV ity of injection 07:32: Push, PRN Noe as 0.4 mg 13 - SEE [facility] NS, Starting on 02/03/22 at 0132, Until Discontinu ed, Routine, Sedation/R espiratory Depression naloxone 2021-03 Yes .4mg 0.4 mg, Univer s (NARCAN) 04-06 Slow IV ity of injection 07:32: Push, PRN Noe as 0.4 mg 13 - SEE [facility] NS, Starting on 02/03/22 at 0132, Until Discontinu ed, Routine, Sedation/R espiratory Depression HYDROmorpho 2021-03- No .5mg 0.5 mg, Un [place] ne 04-06 Slow IV ity of (DILAUDID) 06:00: 15:46 Push, [place] injection 00 :07 Q3HPRN, Medical 0.5 mg Starting Branch on 02/03/22 at 0000, Until 02/03/22 at 0946, Routine, Pain (scale 7-10)
U se approved by (Faculty): [facility], INTERNAL MED HYDROmorpho 2021-03- No .2mg 0.2 mg, Un lazara ne 04-06 Slow IV ity of (DILAUDID) 04:43: 05:48 Push, [place] injection 35 :53 Q4HPRN, Medical 0.2 mg Starting Branch on Sat02/02/22 at 2243, Until Sat02/02/22 at 2348, Routine, Pain (scale 7-10)
U se approved by (Faculty): [facility], INTERNAL MED dextrose 50 2021-03 Yes 25mL 25 mL, Univ ers % in water 03 Slow IV ity of (D50W) 03:53: Push, PRN, [place] injection 44 Starting Medica l 25 mL on Sat Branch 02/02/22 at 2153, Until Discontinu ed, [place], Blood Glucose < or = 70 mg/dL and patient is unable to swallow or has mental status changes. dextrose 50 2021-03 Yes 25mL 25 mL, Univ ers % in water 03 Slow IV ity of (D50W) 03:53: Push, PRN, [place] injection 44 Starting Medica l 25 mL on Sat Branch 02/02/22 at 2153, Until Discontinu ed, RANDALL, Blood Glucose < or = 70 mg/dL and patient is unable to swallow or has mental status changes. ondansetron 2021-03 Yes 4mg 4 mg, Slow Univers (ZOFRAN 2-03 IV Push, ity of (PF)) 03:53: Q6HPRN, [place] injection 4 36 Starting Medi jessica mg on Fri Branch 02/02/22 at 2153, Until Discontinu ed, Routine, Nausea and Vomiting (N/V) ondansetron 2021-03 Yes 4mg 4 mg, Slow Univers (ZOFRAN 2-03 IV Push, ity of (PF)) 03:53: Q6HPRN, [place] injection 4 36 Starting Medi jessica mg on Fri Branch 02/02/22 at 2153, Until Discontinu ed, Routine, Nausea and Vomiting (N/V) ibuprofen 2021-03 Yes 600mg Take 600 Uni vers 600 mg 2-02 mg by ity of tablet 21:55: mouth [place] 45 every 6 Medical (six) Branch hours as needed for Pain (scale 4-6). Diclofenac 2021-03 Yes 1{dose} Apply 1 U nivers Sodium 2-02 Dose to ity of (VOLTAREN 21:55: area(s) [place] ARTHRITIS 45 every 6 Medical PAIN) 1 % (six) Branch gel hours as needed (JOINT PAIN). amLODIPine 2021-03 Yes 10mg Take 10 mg U nivers 10 mg 2-02 by mouth ity of tablet 21:55: daily. [place] 45 Medical Branch losartan-hy 2021-03 Yes 1{tbl} Take 1 Un laz[place] drochloroth 2-02 tablet by ity of iazide 21:55: mouth [place] 50-12.5 mg 45 daily. Medical per tablet Branch glimepiride 2021-03 Yes 1mg Take 1 mg U nivers (AMARYL) 1 2-02 by mouth ity o f mg tablet 21:55: daily with [place] 45 breakfast. Medical Branch methocarbam 2021-03 Yes 500mg Take 500 U nivers oL 500 mg 2-02 mg by ity of tablet 21:55: mouth 4 [place] 45 (four) Medical times Branch daily as needed for Other (MUSCLE SPASM). pregabalin 2021-03 Yes 75mg Take 75 mg U nivers (LYRICA) 75 2-02 by mouth 2 it y of mg capsule 21:55: (two) [place] 45 times Medical daily. Branch DULoxetine 2021-03 Yes 20mg Take 20 mg U nivers (CYMBALTA) 2-02 by mouth ity o f 20 mg 21:55: daily. [place] capsule 45 Medical Branch HYDROcodone 2021-03 Yes 1{tbl} Take 1 Un [place] -acetaminop 2-02 tablet by ity of hen (NORCO) 21:55: mouth [place] 10-325 mg 45 every 6 Medical tablet (six) Branch hours as needed for Pain (scale 7-10). buprenorphi 2021-[address] Univers ne HCL 2-02 mcg in ity of (BELBUCA) 21:55: cheeks 2 [place] 750 mcg 45 (two) Medical Film times Branch daily. Indication s: chronic pain ibuprofen 2021-03 Yes 600mg Take 600 Uni vers 600 mg 2-02 mg by ity of tablet 21:55: mouth [place] 45 every 6 Medical (six) Branch hours as needed for Pain (scale 4-6). Diclofenac 2021-03 Yes 1{dose} Apply 1 U nivers Sodium 2-02 Dose to ity of (VOLTAREN 21:55: area(s) [place] ARTHRITIS 45 every 6 Medical PAIN) 1 % (six) Branch gel hours as needed (JOINT PAIN). amLODIPine 2021-03 Yes 10mg Take 10 mg U nivers 10 mg 2-02 by mouth ity of tablet 21:55: daily. [place] 45 Medical Branch losartan-hy 2021-03 Yes 1{tbl} Take 1 Un [place] drochloroth 2-02 tablet by ity of iazide 21:55: mouth [place] 50-12.5 mg 45 daily. Medical per tablet Branch glimepiride 2021-03 Yes 1mg Take 1 mg U nivers (AMARYL) 1 2-02 by mouth ity o f mg tablet 21:55: daily with [place] 45 breakfast. Medical Branch methocarbam 2021-03 Yes 500mg Take 500 U nivers oL 500 mg 2-02 mg by ity of tablet 21:55: mouth 4 [place] 45 (four) Medical times Branch daily as needed for Other (MUSCLE SPASM). pregabalin 2021-03 Yes 75mg Take 75 mg U nivers (LYRICA) 75 2-02 by mouth 2 it y of mg capsule 21:55: (two) [place] 45 times Medical daily. Branch DULoxetine 2021-03 Yes 20mg Take 20 mg U nivers (CYMBALTA) 2-02 by mouth ity o f 20 mg 21:55: daily. [place] capsule 45 Medical Branch HYDROcodone 2021-03 Yes 1{tbl} Take 1 Un [place] -acetaminop 2-02 tablet by ity of hen (NORCO) 21:55: mouth [place] 10-325 mg 45 every 6 Medical tablet (six) Branch hours as needed for Pain (scale 7-10). buprenorphi 2021-[address] Univers ne HCL 2-02 mcg in ity of ([facility]) 21:55: cheeks 2 [place] 750 mcg 45 (two) Medical Film times Branch daily. Indication s: chronic pain Flomax 0.4 Flomax 0.4 2021-03- No 1{capsu QD Flomax 0.4 MG MG -16 - le} MG 00:00: 00:00 00 :00 Eliquis 5 2021-03 Yes [id number] TAKE 1 M ethodi mg tablet 1-[address] 00:00: [facility] 00 TWICE l DAILY FOR BLOOD CLOT IN A DEEP VEIN OF THE EXTREMITIE S Eliquis 5 2021-03 Yes [id number] TAKE 1 M ethodi mg tablet 1-[address] 00:00: MOUTH [facility]ospita 00 TWICE l DAILY FOR BLOOD CLOT IN A DEEP VEIN OF THE EXTREMITIE S Eliquis 5 2021-03 Yes [id number] TAKE 1 M ethodi mg tablet 1-[address] 00:00: MOUTH [facility]ospita 00 TWICE l DAILY FOR BLOOD CLOT IN A DEEP VEIN OF THE EXTREMITIE S Eliquis 5 2021-03 Yes [id number] TAKE 1 M ethodi mg tablet 1-[address] 00:00: MOUTH [facility]ospita 00 TWICE l DAILY FOR BLOOD CLOT IN A DEEP VEIN OF THE EXTREMITIE S Eliquis 5 2021-03 Yes [id number] TAKE 1 M ethodi mg tablet 1-[address] 00:00: MOUTH [facility]ospita 00 TWICE l DAILY FOR BLOOD CLOT IN A DEEP VEIN OF THE EXTREMITIE S Eliquis 5 2021-03 Yes [id number] TAKE 1 M ethodi mg tablet 1-[address] 00:00: MOUTH [facility]ospita 00 TWICE l DAILY FOR BLOOD CLOT IN A DEEP VEIN OF THE EXTREMITIE S Eliquis 5 2021-03 Yes [id number] TAKE 1 M ethodi mg tablet 1-[address] 00:00: MOUTH Hospita 00 TWICE l DAILY FOR BLOOD CLOT IN A DEEP VEIN OF THE EXTREMITIE S Eliquis 5 2021-03 Yes [id number] TAKE 1 M ethodi mg tablet 1-[address] 00:00: MOUTH Hospita 00 TWICE l DAILY FOR BLOOD CLOT IN A DEEP VEIN OF THE EXTREMITIE S Eliquis 5 2021-03 Yes [id number] TAKE 1 M ethodi mg tablet 1-[address] 00:00: MOUTH Hospita 00 TWICE l DAILY FOR BLOOD CLOT IN A DEEP VEIN OF THE EXTREMITIE S Eliquis 5 2021-03 Yes [id number] TAKE 1 M ethodi mg tablet 1-[address] 00:00: MOUTH Hospita 00 TWICE l DAILY FOR BLOOD CLOT IN A DEEP VEIN OF THE EXTREMITIE S Eliquis 5 2021-03 Yes [id number] TAKE 1 M ethodi mg tablet 1-[address] 00:00: MOUTH Hospita 00 TWICE l DAILY FOR BLOOD CLOT IN A DEEP VEIN OF THE EXTREMITIE S Eliquis 5 2021-03 Yes [id number] TAKE 1 M ethodi mg tablet 1-[address] 00:00: MOUTH Hospita 00 TWICE l DAILY FOR BLOOD CLOT IN A DEEP VEIN OF THE EXTREMITIE S pantoprazol 2021-0 Yes [id number] TAKE 1 Methodi e 9-20 TABLET(40 st (PROTONIX) 00:00: MG) BY Hospi ta 40 MG EC 00 MOUTH l tablet DAILY pantoprazol Yes [id number] TAKE 1 Methodi e 9-20 TABLET(40 st (PROTONIX) 00:00: MG) BY Hospi ta 40 MG EC 00 MOUTH l tablet DAILY pantoprazol Yes [id number] TAKE 1 Methodi e 9-20 TABLET(40 st (PROTONIX) 00:00: MG) BY Hospi ta 40 MG EC 00 MOUTH l tablet DAILY pantoprazol 2021-0 Yes [id number] TAKE 1 Methodi e 9-20 TABLET(40 st (PROTONIX) 00:00: MG) BY Hospi ta 40 MG EC 00 MOUTH l tablet DAILY pantoprazol 2021-0 Yes [id number] TAKE 1 Methodi e 9-20 TABLET(40 st (PROTONIX) 00:00: MG) BY Hospi ta 40 MG EC 00 MOUTH l tablet DAILY pantoprazol 2021-0 Yes [id number] TAKE 1 Methodi e 9-20 TABLET(40 st (PROTONIX) 00:00: MG) BY Hospi ta 40 MG EC 00 MOUTH l tablet DAILY pantoprazol 2021-0 Yes [id number] TAKE 1 Methodi e 9-20 TABLET(40 st (PROTONIX) 00:00: MG) BY Hospi ta 40 MG EC 00 MOUTH l tablet DAILY pantoprazol 2021-0 Yes [id number] TAKE 1 Methodi e 9-20 TABLET(40 st (PROTONIX) 00:00: MG) BY Hospi ta 40 MG EC 00 MOUTH l tablet DAILY pantoprazol 2021-0 Yes [id number] TAKE 1 Methodi e 9-20 TABLET(40 st (PROTONIX) 00:00: MG) BY Hospi ta 40 MG EC 00 MOUTH l tablet DAILY pantoprazol 2021-0 Yes [id number] TAKE 1 Methodi e 9-20 TABLET(40 st (PROTONIX) 00:00: MG) BY Hospi ta 40 MG EC 00 MOUTH l tablet DAILY pantoprazol 2021-0 Yes [id number] TAKE 1 Methodi e 9-20 TABLET(40 st (PROTONIX) 00:00: MG) BY Hospi ta 40 MG EC 00 MOUTH l tablet DAILY pantoprazol 2021-0 Yes [id number] TAKE 1 Methodi e 9-20 TABLET(40 st (PROTONIX) 00:00: MG) BY Hospi ta 40 MG EC 00 MOUTH l tablet DAILY Eliquis 5 2021- No [id number] TAKE 1 Methodi mg tablet 11-21 TABLET(5 00:00: 00:00 MG) BY Hospita 00 :00 MOUTH l TWICE DAILY FOR BLOOD CLOT Eliquis 2021- No [id number] TAKE 1 Methodi mg tablet 11-21 TABLET(5 00:00: 00:00 MG) BY Hospita 00 :00 MOUTH l TWICE DAILY FOR BLOOD CLOT Eliquis 5 2021- No [id number] TAKE 1 Methodi mg tablet 11-21 TABLET(5 st 00:00: 00:00 MG) BY Hospita 00 :00 MOUTH l TWICE DAILY FOR BLOOD CLOT Eliquis 5 2021- No [id number] TAKE 1 Methodi mg tablet 11-21 TABLET(5 st 00:00: 00:00 MG) BY Hospita 00 :00 MOUTH l TWICE DAILY FOR BLOOD CLOT Eliquis 5 2021- No [id number] TAKE 1 Methodi mg tablet 11-21 TABLET(5 00:00: 00:00 MG) BY Hospita 00 :00 MOUTH l TWICE DAILY FOR BLOOD CLOT Eliquis No [id number] TAKE 1 Methodi mg tablet 11-21 TABLET( 00:00: 00:00 MG) BY Hospita 00 :00 MOUTH l TWICE DAILY FOR BLOOD CLOT Eliquis 2021- No [id number] TAKE 1 Methodi mg tablet 11-21 TABLET(5 00:00: 00:00 MG) BY Hospita 00 :00 MOUTH l TWICE DAILY FOR BLOOD CLOT Eliquis 2021- No [id number] TAKE 1 Methodi mg tablet 11-21 TABLET( 00:00: 00:00 MG) BY Hospita 00 :00 MOUTH l TWICE DAILY FOR BLOOD CLOT Eliquis 2021- No [id number] TAKE 1 Methodi mg tablet 11-21 TABLET( 00:00: 00:00 MG) BY Hospita 00 :00 MOUTH l TWICE DAILY FOR BLOOD CLOT Eliquis 2021- No [id number] TAKE 1 Methodi mg tablet 11-21 TABLET( 00:00: 00:00 MG) BY Hospita 00 :00 MOUTH l TWICE DAILY FOR BLOOD CLOT Eliquis 5 2021- No [id number] TAKE 1 Methodi mg tablet 11-21 TABLET( 00:00: 00:00 MG) BY Hospita 00 :00 MOUTH l TWICE DAILY FOR BLOOD CLOT Eliquis 2021- No [id number] TAKE 1 Methodi mg tablet 11-21 TABLET(5 00:00: 00:00 MG) BY Hospita 00 :00 MOUTH l TWICE DAILY FOR BLOOD CLOT glimepiride Yes [id number] TAKE 1 Methodi (AMARYL) 1 9-[address] MG tablet 00:00: MOUTH Hospita 00 DAILY l BEFORE BREAKFAST glimepiride Yes [id number] TAKE 1 Methodi (AMARYL) 1 9-[address] MG tablet 00:00: MOUTH Hospita 00 DAILY l BEFORE BREAKFAST glimepiride Yes [id number] TAKE 1 Methodi (AMARYL) 1 9-[address] MG tablet 00:00: MOUTH Hospita 00 DAILY l BEFORE BREAKFAST glimepiride 0 Yes [id number] TAKE 1 Methodi (AMARYL) 1 9-[address] MG tablet 00:00: MOUTH Hospita 00 DAILY l BEFORE BREAKFAST glimepiride 0 Yes [id number] TAKE 1 Methodi (AMARYL) 1 9-[address] MG tablet 00:00: MOUTH Hospita 00 DAILY l BEFORE BREAKFAST glimepiride Yes [id number] TAKE 1 Methodi (AMARYL) 1 9-[address] MG tablet 00:00: MOUTH [facility]ospita 00 DAILY l BEFORE BREAKFAST glimepiride Yes [id number] TAKE 1 Methodi (AMARYL) 1 9-[address] MG tablet 00:00: MOUTH Hospita 00 DAILY l BEFORE BREAKFAST glimepiride 0 Yes [id number] TAKE 1 Methodi (AMARYL) 1 9-[address] MG tablet 00:00: MOUTH Hospita 00 DAILY l BEFORE BREAKFAST glimepiride Yes [id number] TAKE 1 Methodi (AMARYL) 1 9-[address] MG tablet 00:00: MOUTH Hospita 00 DAILY l BEFORE BREAKFAST glimepiride Yes [id number] TAKE 1 Methodi (AMARYL) 1 9-[address] MG tablet 00:00: MOUTH Hospita 00 DAILY l BEFORE BREAKFAST glimepiride 0 Yes [id number] TAKE 1 Methodi (AMARYL) 1 9-[address] MG tablet 00:00: MOUTH Hospita 00 DAILY l BEFORE BREAKFAST glimepiride 0 Yes [id number] TAKE 1 Methodi (AMARYL) 1 9-[address] MG tablet 00:00: MOUTH Hospita 00 DAILY l BEFORE BREAKFAST glimepiride 2021- No [id number] TAKE 1 Methodi (AMARYL) 1 9-08 09-18 TABLET(1 st MG tablet 00:00: 00:00 MG) BY Hospi ta 00 :00 MOUTH l DAILY BEFORE BREAKFAST glimepiride 2021- No [id number] TAKE 1 Methodi (AMARYL) 1 11-09 TABLET(1 st MG tablet 00:00: 00:00 MG) BY Hospi ta 00 :00 MOUTH l DAILY BEFORE BREAKFAST glimepiride No [id number] TAKE 1 Methodi (AMARYL) 1 11-09 TABLET(1 st MG tablet 00:00: 00:00 MG) BY Hospi ta 00 :00 MOUTH l DAILY BEFORE BREAKFAST glimepiride 2021- No [id number] TAKE 1 Methodi (AMARYL) 1 11-09 TABLET(1 st MG tablet 00:00: 00:00 MG) BY Hospi ta 00 :00 MOUTH l DAILY BEFORE BREAKFAST glimepiride 2021- No [id number] TAKE 1 Methodi (AMARYL) 1 11-09 TABLET(1 st MG tablet 00:00: 00:00 MG) BY Hospi ta 00 :00 MOUTH l DAILY BEFORE BREAKFAST glimepiride 2021- No [id number] TAKE 1 Methodi (AMARYL) 1 11-09 TABLET(1 st MG tablet 00:00: 00:00 MG) BY Hospi ta 00 :00 MOUTH l DAILY BEFORE BREAKFAST glimepiride 2021- No [id number] TAKE 1 Methodi (AMARYL) 1 11-09 TABLET(1 st MG tablet 00:00: 00:00 MG) BY Hospi ta 00 :00 MOUTH l DAILY BEFORE BREAKFAST glimepiride 2021- No [id number] TAKE 1 Methodi (AMARYL) 1 11-09 TABLET(1 st MG tablet 00:00: 00:00 MG) BY Hospi ta 00 :00 MOUTH l DAILY BEFORE BREAKFAST glimepiride 2021- No [id number] TAKE 1 Methodi (AMARYL) 1 11-09 TABLET(1 st MG tablet 00:00: 00:00 MG) BY Hospi ta 00 :00 MOUTH l DAILY BEFORE BREAKFAST glimepiride 2021- No [id number] TAKE 1 Methodi (AMARYL) 1 11-09 TABLET(1 st MG tablet 00:00: 00:00 MG) BY Hospi ta 00 :00 MOUTH l DAILY BEFORE BREAKFAST glimepiride 2021-0 2- No [id number] TAKE 1 Methodi (AMARYL) 1 11-09 TABLET(1 st MG tablet 00:00: 00:00 MG) BY Hospi ta 00 :00 MOUTH l DAILY BEFORE BREAKFAST glimepiride 2021-0 2- No [id number] TAKE 1 Methodi (AMARYL) 1 11-09 TABLET(1 st MG tablet 00:00: 00:00 MG) BY Hospi ta 00 :00 MOUTH l DAILY BEFORE BREAKFAST DULoxetine 2021-0 Yes [id number] TAKE 1 [facility]i (CYMBALTA) 11-[address] 20 MG 00:00: MOUTH Hospita capsule 00 DAILY l DULoxetine 2021-0 Yes [id number] TAKE 1 [facility]i (CYMBALTA) 11-[address] 20 MG 00:00: MOUTH Hospita capsule 00 DAILY l DULoxetine 2021-0 Yes [id number] TAKE 1 [facility] ([facility]) 11-[address] 20 MG 00:00: [facility]OUTH [facility] capsule 00 DAILY l DULoxetine 2021-0 Yes [id number] TAKE 1 [facility] ([facility] 11-[address] 20 MG 00:00: [facility]OUTH [facility] capsule 00 DAILY l DULoxetine 2021-0 Yes [id number] TAKE 1 [facility] ([facility] 11-[address] 20 MG 00:00: [facility]OUTH [facility] capsule 00 DAILY l DULoxetine 2021-0 Yes [id number] TAKE 1 [facility] ([facility]) 11-[address] 20 MG 00:00: MOUTH [facility] capsule 00 DAILY l DULoxetine 2021-0 Yes [id number] TAKE 1 [facility] ([facility]) 11-[address] 20 MG 00:00: [facility]OUTH [facility] capsule 00 DAILY l DULoxetine 2021-0 Yes [id number] TAKE 1 [facility] ([facility]) 11-[address] 20 MG 00:00: MOUTH [facility] capsule 00 DAILY l DULoxetine 2021-0 Yes [id number] TAKE 1 [facility] ([facility]) 11-[address] 20 MG 00:00: MOUTH [facility] capsule 00 DAILY l DULoxetine 2-0 Yes [id number] TAKE 1 [facility] ([facility]) 11-[address] 20 MG 00:00: MOUTH [facility] capsule 00 DAILY l DULoxetine 2-0 Yes [id number] TAKE 1 [facility] ([facility] 11-[address] 20 MG 00:00: MOUTH [facility] capsule 00 DAILY l DULoxetine 2-0 Yes [id number] TAKE 1 [facility] ([facility] 11-[address] 20 MG 00:00: [facility] capsule 00 DAILY l amLODIPine 2-0 Yes TAKE 1 Metho di (NORVASC) 8-[address] 10 mg 00:00: [facility] tablet 00 DAILY l amLODIPine 2-0 Yes TAKE 1 Metho di (NORVASC) 8-[address] 10 mg 00:00: [facility] tablet 00 DAILY l amLODIPine 2-0 Yes TAKE 1 Metho di (NORVASC) 8-[address] 10 mg 00:00: [facility] tablet 00 DAILY l amLODIPine 2-0 Yes TAKE 1 Metho di (NORVASC) 8-[address] 10 mg 00:00: [facility] tablet 00 DAILY l amLODIPine 2-0 Yes TAKE 1 Metho di (NORVASC) 8-[address] 10 mg 00:00: [facility] tablet 00 DAILY l amLODIPine 2-0 Yes TAKE 1 Metho di (NORVASC) 8-[address] 10 mg 00:00: [facility] tablet 00 DAILY l amLODIPine 2-0 Yes TAKE 1 Metho di (NORVASC) 8-[address] 10 mg 00:00: [facility] tablet 00 DAILY l amLODIPine 2-0 Yes TAKE 1 Metho di (NORVASC) 8-[address] 10 mg 00:00: [facility] tablet 00 DAILY l amLODIPine 2022-0 Yes TAKE 1 Metho di (NORVASC) 8-[address] 10 mg 00:00: [facility] tablet 00 DAILY l amLODIPine 2-0 Yes TAKE 1 Metho di (NORVASC) 8-[address] 10 mg 00:00: [facility] tablet 00 DAILY l amLODIPine 2022-0 Yes TAKE 1 Metho di (NORVASC) 8-[address] 10 mg 00:00: [facility] tablet 00 DAILY l amLODIPine 0 Yes TAKE 1 Metho di (NORVASC) 8-[address] 10 mg 00:00: [facility] tablet 00 DAILY l nirmatrelvi 0 Yes [id number] 3{tbl} Take 3 [facility] r-ritonavir 8-12 tablets by it y of (PAXLOVID, 00:00: mouth in Noe as EUA,) 150 00 the Medical mg x 2- 100 morning Branc [facility] mg tablet and 3 tablets in the evening. nirmatrelvi Yes [id number] 3{tbl} Take 3 [facility] r-ritonavir 8-12 tablets by it y of (PAXLOVID, 00:00: mouth in Noe as EUA,) 150 00 the Medical mg x 2- 100 morning Branc h mg tablet and 3 tablets in the evening. nirmatrelvi Yes [id number] 3{tbl} Take 3 [facility] r-ritonavir 8-12 tablets by it y of (PAXLOVID, 00:00: mouth in Noe as EUA,) 150 00 the Medical mg x 2- 100 morning Branc h mg tablet and 3 tablets in the evening. nirmatrelvi 0 Yes [id number] 3{tbl} Take 3 [facility] r-ritonavir 8-12 tablets by it y of (PAXLOVID, 00:00: mouth in Noe as EUA,) 150 00 the Medical mg x 2- 100 morning Branc h mg tablet and 3 tablets in the evening. nirmatrelvi 0 Yes [id number] 3{tbl} Take 3 [facility] r-ritonavir 8-12 tablets by it y of (PAXLOVID, 00:00: mouth in Noe as EUA,) 150 00 the Medical mg x 2- 100 morning Branc h mg tablet and 3 tablets in the evening. nirmatrelvi 0 Yes [id number] 3{tbl} Take 3 [facility] r-ritonavir 8-12 tablets by it y of (PAXLOVID, 00:00: mouth in Noe as EUA,) 150 00 the Medical mg x 2- 100 morning Branc h mg tablet and 3 tablets in the evening. nirmatrelvi 2021-0 Yes [id number] 3{tbl} Take 3 [facility] r-ritonavir 8-12 tablets by it y of (PAXLOVID, 00:00: mouth in Noe as EUA,) 150 00 the Medical mg x 2- 100 morning Branc h mg tablet and 3 tablets in the evening. nirmatrelvi 2021-0 Yes [id number] 3{tbl} Take 3 [facility] r-ritonavir 8-12 tablets by it y of (PAXLOVID, 00:00: mouth in Noe as EUA,) 150 00 the Medical mg x 2- 100 morning Branc h mg tablet and 3 tablets in the evening. nirmatrelvi 2021-0 Yes [id number] 3{tbl} Take 3 [facility] r-ritonavir 8-12 tablets by it y of (PAXLOVID, 00:00: mouth in Noe as EUA,) 150 00 the Medical mg x 2- 100 morning Branc h mg tablet and 3 tablets in the evening. nirmatrelvi 0 Yes [id number] 3{tbl} Take 3 [facility] r-ritonavir 8-12 tablets by it y of (PAXLOVID, 00:00: mouth in Noe as EUA,) 150 00 the Medical mg x 2- 100 morning Branc h mg tablet and 3 tablets in the evening. nirmatrelvi 2021-0 Yes [id number] 3{tbl} Take 3 [facility] r-ritonavir 8-12 tablets by it y of (PAXLOVID, 00:00: mouth in Noe as EUA,) 150 00 the Medical mg x 2- 100 morning Branc h mg tablet and 3 tablets in the evening. nirmatrelvi 2021-0 Yes [id number] 3{tbl} Take 3 [facility] r-ritonavir 8-12 tablets by it y of (PAXLOVID, 00:00: mouth in Noe as EUA,) 150 00 the Medical mg x 2- 100 morning Branc h mg tablet and 3 tablets in the evening. nirmatrelvi 2021-0 Yes [id number] 3{tbl} Take 3 [facility] r-ritonavir 8-12 tablets by it y of (PAXLOVID, 00:00: mouth in Noe as EUA,) 150 00 the Medical mg x 2- 100 morning Branc h mg tablet and 3 tablets in the evening. nirmatrelvi 2021-0 Yes [id number] 3{tbl} Take 3 [facility] r-ritonavir 8-12 tablets by it y of (PAXLOVID, 00:00: mouth in Noe as EUA,) 150 00 the Medical mg x 2- 100 morning Branc h mg tablet and 3 tablets in the evening. nirmatrelvi 2021-0 Yes [id number] 3{tbl} Take 3 [facility] r-ritonavir 8-12 tablets by it y of (PAXLOVID, 00:00: mouth in Noe as EUA,) 150 00 the Medical mg x 2- 100 morning Branc h mg tablet and 3 tablets in the evening. nirmatrelvi 2021-0 Yes [id number] 3{tbl} Take 3 [facility] r-ritonavir 8-12 tablets by it y of (PAXLOVID, 00:00: mouth in Noe as EUA,) 150 00 the Medical mg x 2- 100 morning Branc h mg tablet and 3 tablets in the evening. nirmatrelvi 2021-0 Yes [id number] 3{tbl} Take 3 [facility] r-ritonavir 8-12 tablets by it y of (PAXLOVID, 00:00: mouth in Noe as EUA,) 150 00 the Medical mg x 2- 100 morning Branc h mg tablet and 3 tablets in the evening. nirmatrelvi 2021-0 Yes [id number] 3{tbl} Take 3 [facility] r-ritonavir 8-12 tablets by it y of (PAXLOVID, 00:00: mouth in Noe as EUA,) 150 00 the Medical mg x 2- 100 morning Branc h mg tablet and 3 tablets in the evening. nirmatrelvi 2021-0 Yes [id number] 3{tbl} Take 3 [facility] r-ritonavir 8-12 tablets by it y of (PAXLOVID, 00:00: mouth in Noe as EUA,) 150 00 the Medical mg x 2- 100 morning Branc h mg tablet and 3 tablets in the evening. nirmatrelvi 2022-0 Yes [id number] 3{tbl} Take 3 [facility] r-ritonavir 8-12 tablets by it y of (PAXLOVID, 00:00: mouth in Noe as EUA,) 150 00 the Medical mg x 2- 100 morning Branc h mg tablet and 3 tablets [facility] the evening. [facility] [id number] 3{tbl} Take 3 [facility] r-ritonavir 8-12 tablets by it y of (PAXLOVID, 00:00: mouth in Noe as EUA,) 150 00 the Medical mg x 2- 100 morning Branc h mg tablet and 3 tablets in the evening. niridtrelvi 0 Yes [id number] 3{tbl} Take 3 [facility] r-ritonavir 8-12 tablets by it y of (PAXLOVID, 00:00: mouth in Noe as EUA,) 150 00 the Medical mg x 2- 100 morning Branc h mg tablet and 3 tablets [facility] evening. [facility] [id number] 3{tbl} Take 3 [facility] r-ritonavir 8-12 tablets by it y of (PAXLOVID, 00:00: mouth in Noe as EUA,) 150 00 the Medical mg x 2- 100 morning Branc h mg tablet and 3 tablets [facility] the evening. [facility] Yes [id number] 3{tbl} Take 3 [facility] r-ritonavir 8-12 tablets by it y of (PAXLOVID, 00:00: mouth in Noe as EUA,) 150 00 the Medical mg x 2- 100 morning Branc h mg tablet and 3 tablets in the evening. [facility] Yes [id number] 3{tbl} Take 3 [facility] r-ritonavir 8-12 tablets by it y of (PAXLOVID, 00:00: mouth in Noe as EUA,) 150 00 the Medical mg x 2- 100 morning Branc h mg tablet and 3 tablets in the evening. [facility] Yes [id number] 3{tbl} Take 3 [facility] r-ritonavir 8-12 tablets by it y of (PAXLOVID, 00:00: mouth in Noe as EUA,) 150 00 the Medical mg x 2- 100 morning Branc h mg tablet and 3 tablets in the evening. nirmatrelvi Yes [id number] 3{tbl} Take 3 [facility] r-ritonavir 8-12 tablets by it y of (PAXLOVID, 00:00: mouth in Noe as EUA,) 150 00 the Medical mg x 2- 100 morning Branc h mg tablet and 3 tablets in the evening. diclofenac 2022- No [id number] Q.25D Apply [facility] (VOLTAREN) 09-[address] 1 % gel 00:00: 04:59 4 (four) Hospi ta 00 :00 times a l day. diclofenac 2022- No [id number] Q.25D Apply [facility] (VOLTAREN) 09-[address] 1 % gel 00:00: 04:59 4 (four) Hospi ta 00 :00 times a l day. diclofenac 2022- No [id number] Q.25D Apply [facility] (VOLTAREN) 09-[address] 1 % gel 00:00: 04:59 4 (four) Hospi ta 00 :00 times a l day. diclofenac 2022- No [id number] Q.25D Apply [facility] (VOLTAREN) 09-[address] 1 % gel 00:00: 04:59 4 (four) Hospi ta 00 :00 times a l day. diclofenac 2022- No [id number] Q.25D Apply [facility] (VOLTAREN) 09-[address] 1 % gel 00:00: 04:59 4 (four) Hospi ta 00 :00 times a l day. diclofenac 2022- No [id number] Q.25D [facility] (VOLTAREN) 09-[address] 1 % gel 00:00: 04:59 4 (four) Hospi ta 00 :00 times a l day. diclofenac 2022- No [id number] Q.25D [facility] (VOLTAREN) 09-[address] 1 % gel 00:00: 04:59 4 (four) Hospi ta 00 :00 times a l day. diclofenac 2022- No [id number] Q.25D Apply [facility] (VOLTAREN) 09-[address] 1 % gel 00:00: 04:59 4 (four) Hospi ta 00 :00 times a l day. diclofenac 2022- No [id number] Q.25D Apply [facility] (VOLTAREN) 09-[address] 1 % gel 00:00: 04:59 4 (four) Hospi ta 00 :00 times a l day. diclofenac 2022- No [id number] Q.25D Apply [facility] (VOLTAREN) 09-[address] 1 % gel 00:00: 04:59 4 (four) Hospi ta 00 :00 times a l day. diclofenac 2022- No [id number] Q.25D Apply [facility] (VOLTAREN) 09-[address] 1 % gel 00:00: 04:59 4 (four) Hospi ta 00 :00 times a l day. diclofenac 2022- No [id number] Q.25D Apply [facility] (VOLTAREN) 09-[address] 1 % gel 00:00: 04:59 4 (four) Hospi ta 00 :00 times a l day. clindamycin 2021- No [id number] 300mg Q.71905498 Take 1 [facility] (Cleocin 09-27 [id number] capsule s t HCL) 300 MG 00:00: 04:59 3D (300 mg [facility] capsule 00 :00 total) by l mouth 3 (three) times a day for 21 days. clindamycin 2021- No [id number] 300mg Q.79598771 Take 1 [facility] (Cleocin 09-27- [id number] capsule s t HCL) 300 MG 00:00: 04:59 3D (300 mg [facility] capsule 00 :00 total) by l mouth 3 (three) times a day for 21 days. clindamycin 2021- No [id number] 300mg Q.16434572 Take 1 [facility] (Cleocin -27 08-18 [id number] capsule s t HCL) 300 MG 00:00: 04:59 3D (300 mg [facility] capsule 00 :00 total) by l mouth 3 (three) times a day for 21 days. clindamycin 2021- No [id number] 300mg Q.[id number] Take 1 [facility] (Cleocin 7-27 08-18 [id number] capsule s t HCL) 300 MG 00:00: 04:59 3D (300 mg [facility] capsule 00 :00 total) by l mouth 3 (three) times a day for 21 days. clindamycin 2021- No [id number] 300mg Q.90603934 Take 1 [facility] (Cleocin 7-27 08-18 [id number] capsule s t HCL) 300 MG 00:00: 04:59 3D (300 mg [facility] capsule 00 :00 total) by l mouth 3 (three) times a day for 21 days. clindamycin 2021- No [id number] 300mg Q.64399500 Take 1 [facility] (Cleocin 7-27 08-18 [id number] capsule s t HCL) 300 MG 00:00: 04:59 3D (300 mg [facility] capsule 00 :00 total) by l mouth 3 (three) times a day for 21 days. clindamycin 2021- No [id number] 300mg Q.24593616 Take 1 [facility] (Cleocin 7-27 08-18 [id number] capsule s t HCL) 300 MG 00:00: 04:59 3D (300 mg [facility] capsule 00 :00 total) by l mouth 3 (three) times a day for 21 days. clindamycin 2021- No [id number] 300mg Q.90788041 Take 1 [facility] (Cleocin 7-27 08-18 [id number] capsule s t HCL) 300 MG 00:00: 04:59 3D (300 mg [facility] capsule 00 :00 total) by l mouth 3 (three) times a day for 21 days. clindamycin 2021-2021- No [id number] 300mg Q.14252970 Take 1 [facility] (Cleocin 7-27 08-18 [id number] capsule s t HCL) 300 MG 00:00: 04:59 3D (300 mg [facility] capsule 00 :00 total) by l mouth 3 (three) times a day for 21 days. clindamycin 2021- No [id number] 300mg Q.55814323 Take 1 [facility] (Cleocin 710-19 [id number] capsule s t HCL) 300 MG 00:00: 04:59 3D (300 mg [facility] capsule 00 :00 total) by l mouth 3 (three) times a day for 21 days. clindamycin 2021- No [id number] 300mg Q.12029594 Take 1 [facility] (Cleocin 710-19 [id number] capsule s t HCL) 300 MG 00:00: 04:59 3D (300 mg [facility] capsule 00 :00 total) by l mouth 3 (three) times a day for 21 days. clindamycin 2021- No [id number] 300mg Q.89995803 Take 1 [facility] (Cleocin 09-27 [id number] capsule s t HCL) 300 MG 00:00: 04:59 3D (300 mg [facility] capsule 00 :00 total) by l mouth 3 (three) times a day for 21 days. clindamycin 2021- No [id number] 300mg Q.47347934 Take 1 [facility] (Cleocin 09-04 9107 [id number] capsule s t HCL) 300 MG 00:00: 04:59 3D (300 mg [facility] capsule 00 :00 total) by l mouth 3 (three) times a day for 14 days. clindamycin 2021- No [id number] 300mg Q.23208270 Take 1 [facility] (Cleocin 09-04 9107 [id number] capsule s t HCL) 300 MG 00:00: 04:59 3D (300 mg [facility] capsule 00 :00 total) by l mouth 3 (three) times a day for 14 days. clindamycin 2021- No [id number] 300mg Q.20551971 Take 1 [facility] (Cleocin 09-04 9107 [id number] capsule s t HCL) 300 MG 00:00: 04:59 3D (300 mg [facility] capsule 00 :00 total) by l mouth 3 (three) times a day for 14 days. clindamycin 2021- No [id number] 300mg Q.19692395 Take 1 [facility] (Cleocin 09-04 9107 [id number] capsule s t HCL) 300 MG 00:00: 04:59 3D (300 mg [facility] capsule 00 :00 total) by l mouth 3 (three) times a day for 14 days. clindamycin 2021- No [id number] 300mg Q.[id number] Take 1 [facility] (Cleocin 09-04 9107 [id number] capsule s t HCL) 300 MG 00:00: 04:59 3D (300 mg [facility] capsule 00 :00 total) by l mouth 3 (three) times a day for 14 days. clindamycin 2021- No [id number] 300mg Q.84879989 Take 1 [facility] (Cleocin 09-04 9107 [id number] capsule s t HCL) 300 MG 00:00: 04:59 3D (300 mg [facility] capsule 00 :00 total) by l mouth 3 (three) times a day for 14 days. clindamycin 2021- No [id number] 300mg Q.79608162 Take 1 [facility] (Cleocin 09-04 9107 [id number] capsule s t HCL) 300 MG 00:00: 04:59 3D (300 mg [facility] capsule 00 :00 total) by l mouth 3 (three) times a day for 14 days. clindamycin 2021- No [id number] 300mg Q.26400483 Take 1 [facility] (Cleocin 09-04 9107 [id number] capsule s t HCL) 300 MG 00:00: 04:59 3D (300 mg [facility] capsule 00 :00 total) by l mouth 3 (three) times a day for 14 days. clindamycin 2021- No [id number] 300mg Q.[id number] Take 1 [facility] (Cleocin 09-04 9107 [id number] capsule s t HCL) 300 MG 00:00: 04:59 3D (300 mg [facility] capsule 00 :00 total) by l mouth 3 (three) times a day for 14 days. clindamycin 2021-0 2021- No [id number] 300mg Q.09596500 Take 1 [facility] (Cleocin 09-04 9107 [id number] capsule s t HCL) 300 MG 00:00: 04:59 3D (300 mg [facility] capsule 00 :00 total) by l mouth 3 (three) times a day for 14 days. clindamycin 2021-0 2021- No [id number] 300mg Q.50809575 Take 1 [facility] (Cleocin 09-04 9107 [id number] capsule s t HCL) 300 MG 00:00: 04:59 3D (300 mg [facility] capsule 00 :00 total) by l mouth 3 (three) times a day for 14 days. clindamycin 2021-2021- No [id number] 300mg Q.05443408 Take 1 [facility] (Cleocin 09-04 9107 [id number] capsule s t HCL) 300 MG 00:00: 04:59 3D (300 mg [facility] capsule 00 :00 total) by l mouth 3 (three) times a day for 14 days. methocarbam 0 Yes [id number] 500mg Q.25D Take 1 [facility] 07-[address] (ROBAXIN) 00:00: (500 mg [facility] 500 MG 00 total) by l tablet mouth 4 (four) times a day as needed for muscle spasms. methocarbam 0 Yes [id number] 500mg Q.25D Take 1 [facility] 07-[address] (ROBAXIN) 00:00: (500 mg [facility] 500 MG 00 total) by l tablet mouth 4 (four) times a day as needed for muscle spasms. methocarbam 2021-0 Yes [id number] 500mg Q.25D Take 1 [facility] 07[facility] (ROBAXIN) 00:00: (500 mg Hos[facility] 500 MG 00 total) by l tablet mouth 4 (four) times a day as needed for muscle spasms. methocarbam 2022-0 Yes [id number] 500mg Q.25D Take 1 [facility] 07[facility] (ROBAXIN) 00:00: (500 mg Hospi [facility] 500 MG 00 total) by l tablet mouth 4 (four) times a day as needed for muscle spasms. methocarbam 2-0 Yes [id number] 500mg Q.25D Take 1 [facility] 07[facility] (ROBAXIN) 00:00: (500 mg Hospi ta 500 MG 00 total) by l tablet mouth 4 (four) times a day as needed for muscle spasms. methocarbam 2-0 Yes [id number] 500mg Q.25D Take 1 [facility] 07[facility] (ROBAXIN) 00:00: (500 mg Hospi ta 500 MG 00 total) by l tablet mouth 4 (four) times a day as needed for muscle spasms. methocarbam 2-0 Yes [id number] 500mg Q.25D Take 1 [facility] 07[facility] (ROBAXIN) 00:00: (500 mg Hospi ta 500 MG 00 total) by l tablet mouth 4 (four) times a day as needed for muscle spasms. methocarbam 2-0 Yes [id number] 500mg Q.25D Take 1 [facility] 07[facility] (ROBAXIN) 00:00: (500 mg Hos[facility] ta 500 MG 00 total) by l tablet mouth 4 (four) times a day as needed for muscle spasms. methocarbam 2-0 Yes [id number] 500mg Q.25D Take 1 [facility] 07-[address] (ROBAXIN) 00:00: (500 mg Hospi ta 500 MG 00 total) by l tablet mouth 4 (four) times a day as needed for muscle spasms. methocarbam 2-0 Yes [id number] 500mg Q.25D Take 1 [facility] 07[facility] (ROBAXIN) 00:00: (500 mg Hospi ta 500 MG 00 total) by l tablet mouth 4 (four) times a day as needed for muscle spasms. methocarbam 2-0 Yes [id number] 500mg Q.25D Take 1 [facility] 07[facility] (ROBAXIN) 00:00: (500 mg Hospi ta 500 MG 00 total) by l tablet mouth 4 (four) times a day as needed for muscle spasms. methocarbam 2021-0 Yes [id number] 500mg Q.25D Take 1 [facility] o[facility] 07-[address] (ROBAXIN) 00:00: (500 mg Hospi ta 500 MG 00 total) by l tablet mouth 4 (four) times a day as needed for muscle spasms. methocarbam 0 2- No [id number] 500mg Q.25D Take 1 [facility] 07[facility] (ROBAXIN) 00:00: 00:00 (500 mg [facility]osp [facility] 500 MG 00 :00 total) by l tablet mouth 4 (four) times a day as needed for muscle spasms. methocarbam 2021-0 2- No [id number] 500mg Q.25D Take 1 [facility] 07[facility] (ROBAXIN) 00:00: 00:00 (500 mg [facility]osp [facility] 500 MG 00 :00 total) by l tablet mouth 4 (four) times a day as needed for muscle spasms. methocarbam 2021-0 2- No [id number] 500mg Q.25D Take 1 [facility] 07[facility] (ROBAXIN) 00:00: 00:00 (500 mg [facility]osp [facility] 500 MG 00 :00 total) by l tablet mouth 4 (four) times a day as needed for muscle spasms. methocarbam 2021-0 2021- No [id number] 500mg Q.25D Take 1 [facility] 07[facility] (ROBAXIN) 00:00: 00:00 (500 mg [facility]osp [facility] 500 MG 00 :00 total) by l tablet mouth 4 (four) times a day as needed for muscle spasms. methocarbam 2021-0 2- No [id number] 500mg Q.25D Take 1 [facility] 07[facility] (ROBAXIN) 00:00: 00:00 (500 mg [facility]osp [facility] 500 MG 00 :00 total) by l tablet mouth 4 (four) times a day as needed for muscle spasms. methocarbam 2021-0 2- No [id number] 500mg Q.25D Take 1 [facility] 07[facility] (ROBAXIN) 00:00: 00:00 (500 mg [facility]osp [facility] 500 MG 00 :00 total) by l tablet mouth 4 (four) times a day as needed for muscle spasms. methocarbam 0 2021- No [id number] 500mg Q.25D Take 1 [facility] 07[facility] (ROBAXIN) 00:00: 00:00 (500 mg [facility]osp [facility] 500 MG 00 :00 total) by l tablet mouth 4 (four) times a day as needed for muscle spasms. methocarbam 0 2021- No [id number] 500mg Q.25D Take 1 [facility] 07[facility] (ROBAXIN) 00:00: 00:00 (500 mg [facility]osp [facility] 500 MG 00 :00 total) by l tablet mouth 4 (four) times a day as needed for muscle spasms. methocarbam 0 2021- No [id number] 500mg Q.25D Take 1 [facility] 07-[address] (ROBAXIN) 00:00: 00:00 (500 mg [facility]osp [facility] 500 MG 00 :00 total) by l tablet mouth 4 (four) times a day as needed for muscle spasms. methocarbam 0 2021- No [id number] 500mg Q.25D Take 1 [facility] 07-[address] (ROBAXIN) 00:00: 00:00 (500 mg [facility]osp [facility] 500 MG 00 :00 total) by l tablet mouth 4 (four) times a day as needed for muscle spasms. methocarbam 2021-0 2021- No [id number] 500mg Q.25D Take 1 [facility] 07[facility] (ROBAXIN) 00:00: 00:00 (500 mg [facility]osp [facility] 500 MG 00 :00 total) by l tablet mouth 4 (four) times a day as needed for muscle spasms. methocarbam 2021-0 2021- No [id number] 500mg Q.25D Take 1 [facility] 07-[address] (ROBAXIN) 00:00: 00:00 (500 mg [facility]osp mi 500 MG 00 :00 total) by l tablet mouth 4 (four) times a day as needed for muscle spasms. DAPTOmycin No 700mg 700 mg, IV [facility] (CUBICIN) 4-20 -20 Piggyback, ity of 700 mg in 18:00: 19:18 ONCE, [place] NaCl 0.9% 00 :00 dose, On Medica l (NS) Wed Branch piggyback 06/21/21 at 1300, Administer over 30 Minutes, 100 mL
R ashleigh for Anti-Infec tive: Documented Infection< br>Documen cesar Infection Site: Joint<br&g t;Duration of Therapy: Other (see Comments)< br>Restric cesar use approved by: MELA MCCLENDON, CLC ID ibuprofen Yes 600mg Take 600 Uni vers [...] as needed for Other (MUSCLE SPASM). pregabalin 0 Yes 75mg Take 75 mg U nivers [...] o f 20 mg 16:50: daily. [place] [facility] 17 Medical Branch melatonin 3 Yes 3mg [...] by mouth ity of tablet 16:50: daily. [place] 17 Medical Branch losartan-hy Yes 1{tbl} Take [...] by mouth ity of tablet 16:50: daily. [place] 17 Medical Branch losartan-hy Yes 1{tbl} Take [...] it y of mg capsule 16:50: (two) [place] 17 times Medical daily. Branch DULoxetine Yes 20mg Take 20 mg U nivers (CYMBALTA) 4-20 by mouth ity o f 20 mg 16:50: daily. [place] capsule 17 Medical Branch melatonin 3 Yes 3mg Take 3 mg U nivers mg tablet 4-20 by mouth ity of 16:50: at bedtime [place] [id number] as needed Medical for Branch Insomnia. HYDROcodone [...] times Branch daily. Indication s: chronic pain DAPTOMYCIN 2021- No 710mg QD Infuse 710 [facility] IV 4-20 06-[address] 00:00: 04:59 venous Hospita 00 :00 catheter l daily. DAPTOMYCIN 0 2021- No 710mg QD Infuse 710 [facility] IV 4-20 06-[address] 00:00: 04:59 venous Hospita 00 :00 catheter l daily. DAPTOMYCIN 2022-0 2022- No 710mg QD Infuse 710 [facility] IV 4-20 06-[address] 00:00: 04:59 venous Hospita 00 :00 catheter l daily. DAPTOMYCIN 2022-0 2022- No 710mg QD Infuse 710 [facility] IV 4-20 06-[address] 00:00: 04:59 venous [facility]ospita 00 :00 catheter l daily. DAPTOMYCIN 2022-0 2022- No 710mg QD Infuse 710 [facility] IV 4-20 06-[address] 00:00: 04:59 venous Hospita 00 :00 catheter l daily. DAPTOMYCIN 2022-0 2022- No 710mg QD Infuse 710 [facility] IV 4-20 06-[address] 00:00: 04:59 venous Hospita 00 :00 catheter l daily. DAPTOMYCIN 2022-0 2022- No 710mg QD Infuse 710 [facility] IV 4-20 06-[address] 00:00: 04:59 venous Hospita 00 :00 catheter l daily. DAPTOMYCIN 2022-0 2022- No 710mg QD Infuse 710 [facility] IV 4-20 06-[address] 00:00: 04:59 venous Hospita 00 :00 catheter l daily. DAPTOMYCIN 2022-0 2022- No 710mg QD Infuse 710 [facility] IV 4-20 06-[address] 00:00: 04:59 venous Hospita 00 :00 catheter l daily. DAPTOMYCIN 2022-0 2022- No 710mg QD Infuse 710 [facility] IV 4-20 06-[address] 00:00: 04:59 venous Hospita 00 :00 catheter l daily. DAPTOMYCIN 2022-0 2022- No 710mg QD Infuse 710 [facility] IV 4-20 06-[address] 00:00: 04:59 venous Hospita 00 :00 catheter l daily. DAPTOMYCIN 2022-0 2022- No 710mg QD Infuse 710 [facility] IV 4-20 06-[address] 00:00: 04:59 venous Hospita 00 :00 catheter l daily. lidocaine 2022-0 2022- No 5mL 5 mL, Univer s 1% (PF) 4-19 -19 Subcutaneo ity o f (XYLOCAINE) 15:45: 20:19 us, ONCE, [place] injection 5 00 :00 1 dose, On Me dical mL Sat Branch 06/20/21 at 1045, Routine NaCl 0.9% Yes 10mL 10 mL, Univer s (NS) 06-20 Slow IV ity of injection 15:40: Push, PRN, [place] 10 mL 36 Starting Medical on Sat06/20/21 at 1040, Until Discontinu ed, Routine, line maintenanc e morpHINE Yes 4mg 4 mg, Slow Uni vers injection 4 06-20 IV Push, ity of mg 09:15: Q4HPRN, [place] 53 Starting Medical on Sat06/20/21 at 0415, Until Discontinu ed, Routine, Pain (scale 7-10) HYDROcodone 0 Yes 1{tbl} 1 tablet, Univers -acetaminop 06-20 Oral, ity of hen (NORCO 08:08: Q6HPRN, [place] 5) 5-325 mg 08 Starting Medi jessica tablet 1 on [facility] tablet 06/20/21 at 0308, Until Discontinu ed, Routine, Pain (scale 4-6) vancomycin Yes 1500mg 1,500 mg, Univers 1500 mg in 06-20 IV ity of NS 500 mL 08:00: Infusion, Noe as IV 00 Q12H ABX, Medical Piggyback First dose Bran ch RTU 1,500 on Tue mg 06/20/21 at 0300, Until Discontinu ed, Administer over 90 Minutes
Reason for Anti-Infec tive: Empiric Therapy for Suspected Infection< br>Empiric Therapy Site: Joint
D uration of therapy: 72 hours vancomycin 2021-0 2021- No 1500mg 1,500 mg, Univers 1500 mg in 06-20 IV ity of NS 500 mL 08:00: 16:59 Infusion, [place] 00 :51 Q12H ABX, Medical Piggyback First dose Bran ch RTU 1,500 on Tue mg 06/20/21 at 0300, Until Discontinu ed, Administer over 90 Minutes
Reason for Anti-Infec tive: Empiric Therapy for Suspected Infection< br>Empiric Therapy Site: Joint
D uration of therapy: 72 hours enoxaparin 2022-0 Yes 40mg 40 mg, Unive rs (LOVENOX) 4-19 Subcutaneo ity of injection 02:00: [place], QHS, [place] 40 [place] 00 First dose Medical on [facility] 06/19/21 at 2100, Until Discontinu ed, Routine enoxaparin 2022-0 Yes 40mg 40 mg, Unive rs (LOVENOX) 4-19 Subcutaneo ity of injection 02:00: [place], [place]HS, [place] 40 [place] 00 First dose Medical on [facility] 06/19/21 at 2100, Until Discontinu ed, Routine pregabalin 2022-0 Yes 75mg 75 mg, Unive rs (LYRICA) 4-19 Oral, BID, ity o f capsule 75 01:00: [place] dose [place] mg 00 on [facility] 06/19/21 at [place] 1999, Until Discontinu ed, Routine pregabalin 2022-0 Yes 75mg 75 mg, Unive rs (LYRICA) 4-19 Oral, BID, ity o f capsule 75 01:00: First dose [place] mg 00 on [facility] 06/19/21 at [place] 1999, Until Discontinu ed, Routine hydroCHLORO 2022-0 Yes 12.5mg 12.5 mg, Univers thiazide 4-18 Oral, ity of (ESIDRIX) 14:00: DAILY, [place] capsule 00 First dose Medica l 12.5 mg on [facility] 06/19/21 at 0900, Until Discontinu ed, Routine losartan 2022-0 Yes 50mg 50 mg, Univers (COZAAR) 4-18 Oral, ity of tablet 50 14:00: DAILY, [place] mg 00 First dose Medical on [facility] 06/19/21 at 0900, Until Discontinu ed, Routine amLODIPine 2022-0 Yes 10mg 10 mg, Unive rs (NORVASC) 4-18 Oral, ity of tablet 10 14:00: DAILY, [place] mg 00 First dose Medical on [facility] 06/19/21 at 0900, Until Discontinu ed, Routine hydroCHLORO 2022-0 Yes 12.5mg 12.5 mg, Univers thiazide 4-18 Oral, ity of (ESIDRIX) 14:00: DAILY, [place] capsule 00 First dose Medica l 12.5 mg on Sat [place] 06/19/21 at 0900, Until Discontinu ed, Routine losartan 2021-0 Yes 50mg 50 mg, Univers (COZAAR) 418 Oral, ity of tablet 50 14:00: DAILY, [place] mg 00 First dose Medical on Sat [place] 06/19/21 at 0900, Until Discontinu ed, Routine amLODIPine 2021-0 Yes 10mg 10 mg, Unive rs (NORVASC) 18 Oral, ity of tablet 10 14:00: DAILY, [place] mg 00 First dose Medical on Sat [place] 06/19/21 at 0900, Until Discontinu ed, Routine methocarbam 2021-0 Yes 500mg 500 mg, Un lazara oL 18 Oral, ity of (ROBAXIN) 13:10: QIDPRN, [place] tablet 500 56 Starting Medic al mg on Sat [place] 06/19/21 at 0810, Until Discontinu ed, Routine, Muscle Spasms methocarbam 2021-0 Yes 500mg 500 mg, Un lazara oL 18 Oral, ity of (ROBAXIN) 13:10: QIDPRN, [place] tablet 500 56 Starting Medic al mg on Sat [place] 06/19/21 at 0810, Until Discontinu ed, Routine, Muscle Spasms melatonin 2021-0 Yes 3mg 3 mg, Univers (MELATIN) 18 Oral, ity of tablet 3 mg 13:10: QHSPRN, [place] 30 Starting Medical on Sat [place] 06/19/21 at 0810, Until Discontinu ed, Routine, Insomnia melatonin 2021-0 Yes 3mg 3 mg, Univers (MELATIN) 18 Oral, ity of tablet 3 mg 13:10: QHSPRN, [place] 30 Starting Medical on Sat [place] 06/19/21 at 0810, Until Discontinu ed, Routine, Insomnia morpHINE 2021-0 2021- No 4mg 4 mg, Slow Un [facility] injection 06-19 04-19 IV Push, ity of mg 08:40: 08:39 Q4HPRN, [place] 31 :31 Starting Medical on Sat [place] 06/19/21 at 0340, Until Sat06/20/21 at 0339, Routine, Pain (scale 7-10) morpHINE 2021-0 2021- No 4mg 4 mg, Slow Un lazara injection 4 4-18 -19 IV Push, ity of mg 08:40: 08:39 Q4HPRN, [place] 31 :31 Starting Medical on Sat [facility] 06/19/21 at 0340, Until Sat06/20/21 at 0339, Routine, Pain (scale 7-10) ibuprofen 0 Yes 600mg Take 600 Uni vers 600 [...] gel hours as needed (JOINT PAIN). amLODIPine 0 Yes 10mg Take 10 mg U nivers 10 mg 4-18 by mouth ity of tablet 08:11: daily. [place] [address] Medical Branch losartan-hy 0 Yes 1{tbl} Take 1 Un [facility] drochloroth 4-18 tablet by ity of iazide 08:11: mouth [place] 50-12.5 mg 10 daily. Medical per tablet Branch glimepiride 0 Yes 1mg Take 1 mg U nivers (AMARYL) 1 4-18 by mouth ity o f mg tablet 08:11: daily with [place] 10 breakfast. Medical Branch methocarbam 0 Yes 500mg Take 500 U nivers oL 500 mg 4-18 mg by ity of tablet 08:11: mouth 4 [place] 10 (four) Medical times Branch daily as needed for Other (MUSCLE SPASM). pregabalin 0 Yes 75mg Take 75 mg U nivers (LYRICA) 75 4-18 by mouth 2 it y of mg capsule 08:11: (two) [place] 10 times Medical daily. Branch DULoxetine 0 Yes 20mg Take 20 mg U nivers (CYMBALTA) 4-18 by mouth ity o f 20 mg 08:11: daily. [place] capsule 10 Medical Branch melatonin 3 2021-0 Yes 3mg Take 3 mg U nivers mg tablet 4-18 by mouth ity of 08:11: at bedtime [place] 10 as needed Medical for Branch Insomnia. HYDROcodone 0 Yes 1{tbl} Take 1 Un lazara -acetaminop [...] Branch daily. Indication s: chronic pain ceFEPIme 2021-0 Yes 2000mg 2,000 mg, Un lazara (MAXIPIME) 4-18 IV ity of 2,000 [facility] [place] NaCl 0.9% 00 Q8H ABX, Medica l (NS) 50 mL First dose Bra nch MINI-BAG on [place] 06/18/21 at 2044, Until Discontinu ed, Administer over 4 Hours, 50 mL
Reas on for Anti-Infec tive: Documented Infection< br>Documen cesar Infection Site: Joint
D uration of Therapy: 7 days ceFEPIme 0 2021- No 2000mg 2,000 mg, U nivers (MAXIPIME) 18 -19 IV ity of 2,000 mg in 01:45: 15:43 [place], [place] NaCl 0.9% 00 :04 Q8H ABX, Medica l (NS) 50 mL First dose Bra nch MINI-BAG on 06/18/21 at 2044, Until Discontinu ed, Administer over 4 Hours, 50 mL
Reas on for Anti-Infec tive: Documented Infection< br>Documen cesar Infection Site: Joint
D uration of Therapy: 7 days bacitracin 0 Yes PRN, Univers 500 unit/g 4-18 Starting ity o f ointment 30 00:23: on [place] tube 00 06/18/21 at [facility] 1923, Branch Until Discontinu ed, Routine, Intra-op bacitracin 2021-0 Yes PRN, Univers 500 unit/g 4-18 Starting ity o f ointment 30 00:23: on [place] g [place] 00 06/18/21 at Medical 1923, Branch Until Discontinu ed, Routine, Intra-op ondansetron 2021-0 Yes 4mg 4 mg, Slow Univers (ZOFRAN 4-17 IV Push, ity of (PF)) 22:32: PRN, 1 [place] injection 4 14 dose, Medical mg Starting Branch on [place] 06/18/21 at 1732, Until Discontinu ed, Routine, Nausea and Vomiting (N/V), PACU FENTanyl PF 2021-0 Yes 25ug 25 mcg, Uni vers (SUBLIMAZE 417 Slow IV ity of (PF)) 22:32: Push, [place] injection 14 Q5MIN PRN, Medi jessica 25 mcg 4 doses, Branch Starting on [place] 06/18/21 at 1732, Until Discontinu ed, Routine, Pain (scale 4-6), PACU ondansetron 0 Yes 4mg 4 mg, Slow Univers (ZOFRAN 4-17 IV Push, ity of (PF)) 22:32: PRN, 1 [place] injection 4 14 dose, Medical mg Starting Branch on [place] 06/18/21 at 1732, Until Discontinu ed, Routine, Nausea and Vomiting (N/V), PACU FENTanyl PF 2021- No 25ug 25 mcg, Un lazara (SUBLIMAZE 06-18 Slow IV ity o f (PF)) 22:32: 08:09 Push, [place] injection 14 :54 Q5MIN PRN, Medi jessica 25 mcg 4 doses, Branch Starting on [place] 06/18/21 at 1732, Until Sat06/20/21 at 0309, Routine, Pain (scale 4-6), PACU ceFEPIme 2021- No 1000mg 1,000 mg, U nivers (MAXIPIME) 06-18 IV ity of 1,000 mg in 18:15: 22:05 [place], [place] NaCl 0.9% 00 :00 ONCE, 1 Medical (NS) 50 mL dose, On Branc h MINI-BAG [place] 06/18/21 at 1315, Administer over 240 Minutes, 50 mL
Reas on for Anti-Infec tive: Documented Infection< br>Documen cesar Infection Site: Joint<br&g t;Duration of Therapy: 7 days gadobenate 2021-0 2021- No [id number] .2mL/kg 21.38 mL Univers dimeglumine 06-18 9104 (0.2 mL/kg i ty of (MULTIHANCE 17:15: 17:15 ?106.9 Noe as -20 mL) 00 :00 kg), Medical injection Intravenou Bran ch 21.38 mL s, ONCE, 1 dose, On [place] 06/18/21 at 1215, Routine ondansetron Yes 4mg 4 mg, Slow Univers (ZOFRAN 4-17 IV Push, ity of (PF)) 06:54: Q6HPRN, [place] injection 4 33 Starting Medi jessica mg on [facility] 06/18/21 at 0154, Until Discontinu ed, Routine, Nausea and Vomiting (N/V) ondansetron Yes 4mg 4 mg, Slow Univers (ZOFRAN 4-17 IV Push, ity of (PF)) 06:54: Q6HPRN, [place] injection 4 33 Starting Medi jessica mg on [facility] 06/18/21 at 0154, Until Discontinu ed, Routine, Nausea and Vomiting (N/V) morpHINE 2021- No 4mg 4 mg, Slow Un laz[place] injection 06-18 IV Push, ity of mg 06:54: 06:53 Q4RN, [place] 31 :31 Starting Medical on [facility] 06/18/21 at 0154, Until 06/19/21 at 0153, Routine, Pain (scale 7-10) HYDROcodone 2021-2021- No 1{tbl} 1 tablet, Univers -acetaminop 06-18 Oral, ity of hen (NORCO 06:54: 06:53 Q6HPRN, [place] 5) 5-325 mg 29 :29 Starting Medi jessica tablet 1 on [facility] tablet 06/18/21 at 0154, Until 06/20/21 at 0153, Routine, Pain (scale 4-6) HYDROcodone 2021-0 2021- No 1{tbl} 1 tablet, Univers -acetaminop 06-18 Oral, ity of hen (NORCO 06:54: 06:53 Q6HPRN, [place] 5) 5-325 mg 29 :29 Starting Medi jessica tablet 1 on [place] [facility] tablet 06/18/21 at 0154, Until 06/20/21 at 0153, Routine, Pain (scale 4-6) acetaminoph 2021-0 Yes 650mg 650 mg, Un lazara en 17 Oral, ity of (TYLENOL) 06:54: Q6HPRN, [place] tablet 650 27 Starting Medic al mg on [place] 06/18/21 at 0154, Until Discontinu ed, Routine, Pain (scale 1-3) acetaminoph 2021-0 Yes 650mg 650 mg, Un lazara en 17 Oral, ity of (TYLENOL) 06:54: Q6HPRN, [place] tablet 650 27 Starting Medic al mg on Sun [place] 06/18/21 at 0154, Until Discontinu ed, Routine, Pain (scale 1-3) morpHINE 2021- No 4mg 4 mg, Slow Un [place] injection 4 06-18 IV Push, ity of mg 06:00: 06:21 ONCE, 1 [place] 00 :00 dose, On Medical [place] 06/18/21 at 0100, STAT HYDROcodone 2021- No 1{tbl} 1 tablet, Univers -acetaminop 06-18 Oral, ity of hen (NORCO 04:00: 03:42 ONCE, 1 [place] 5) 5-325 mg 00 :00 dose, On Medi jessica tablet 1 Sat Branch tablet 06/17/21 at 2300, [place] ibuprofen 2021-2021- No 600mg Q6H Take 1 [facility] [place] (ADVIL) 600 06-[address] MG tablet 00:00: 00:00 (600 mg Hosp mi 00 :00 total) by l mouth every 6 (six) hours as needed for mild pain for up to 30 doses. ibuprofen 2021-2021- No 600mg Q6H Take 1 [facility] [place] (ADVIL) 600 06-09-[address] MG tablet 00:00: 00:00 (600 mg Hosp mi 00 :00 total) by l mouth every 6 (six) hours as needed for mild pain for up to 30 doses. ibuprofen 2021-0 2021- No 600mg Q6H Take 1 [facility] [place] (ADVIL) 600 4-08 09-[address] MG tablet 00:00: 00:00 (600 mg Hosp mi 00 :00 total) by l mouth every 6 (six) hours as needed for mild pain for up to 30 doses. ibuprofen 0 2021- No 600mg Q6H Take 1 [facility] [place] (ADVIL) 600 4-08 09-[address] MG tablet 00:00: 00:00 (600 mg Hosp mi 00 :00 total) by l mouth every 6 (six) hours as needed for mild pain for up to 30 doses. ibuprofen 0 2021- No 600mg Q6H Take 1 [facility] [place] (ADVIL) 600 4-08 09-[address] MG tablet 00:00: 00:00 (600 mg Hosp im 00 :00 total) by l mouth every 6 (six) hours as needed for mild pain for up to 30 doses. ibuprofen 0 2021- No 600mg Q6H Take 1 [facility] [place] (ADVIL) 600 4-08 09-[address] MG tablet 00:00: 00:00 (600 mg Hosp mi 00 :00 total) by l mouth every 6 (six) hours as needed for mild pain for up to 30 doses. ibuprofen 0 2021- No 600mg Q6H Take 1 [facility] [place] (ADVIL) 600 4-08 09-[address] MG tablet 00:00: 00:00 (600 mg Hosp mi 00 :00 total) by l mouth every 6 (six) hours as needed for mild pain for up to 30 doses. ibuprofen 0 2021- No 600mg Q6H Take 1 [facility] [place] (ADVIL) 600 4-08 09-[address] MG tablet 00:00: 00:00 (600 mg Hosp mi 00 :00 total) by l mouth every 6 (six) hours as needed for mild pain for up to 30 doses. ibuprofen 0 2- No 600mg Q6H Take 1 [facility] [place] (ADVIL) 600 4-08 09-[address] MG tablet 00:00: 00:00 (600 mg Hosp mi 00 :00 total) by l mouth every 6 (six) hours as needed for mild pain for up to 30 doses. ibuprofen 0 2022- No 600mg Q6H Take 1 [facility] [place] (ADVIL) 600 4-08 09-[address] MG tablet 00:00: 00:00 (600 mg Hosp mi 00 :00 total) by l mouth every 6 (six) hours as needed for mild pain for up to 30 doses. ibuprofen 2021- No 600mg Q6H Take 1 [facility] [place] (ADVIL) 600 4-08 09-[address] MG tablet 00:00: 00:00 (600 mg Hosp mi 00 :00 total) by l mouth every 6 (six) hours as needed for mild pain for up to 30 doses. ibuprofen 2021- No 600mg Q6H Take 1 [facility] [place] (ADVIL) 600 4-08 09-[address] MG tablet 00:00: 00:00 (600 mg Hosp mi 00 :00 total) by l mouth every 6 (six) hours as needed for mild pain for up to 30 doses. oxyCODone-a 1{tbl} Q4H Take 1 Methodi cetaminophe 06-09-[address] n 00:00: 04:59 mouth Hospita (PERCOCET) 00 :00 every 4 l 5-325 mg (four) per tablet hours as needed for moderate pain for up to 5 days .acute pain. Max Daily Amount: 6 tablets oxyCODone-a 1{tbl} Q4H Take 1 [facility] cetaminophe 06-[address] n 00:00: 04:59 mouth Hospita (PERCOCET) 00 :00 every 4 l 5-325 mg (four) per tablet hours as needed for moderate pain for up to 5 days .acute pain. Max Daily Amount: 6 tablets oxyCODone-a 1{tbl} Q4H Take 1 [facility] cetaminophe -10 05-[address] n 00:00: 04:59 mouth Hospita (PERCOCET) 00 :00 every 4 l 5-325 mg (four) per tablet hours as needed for moderate pain for up to 5 days .acute pain. Max Daily Amount: 6 tablets oxyCODone-a 1{tbl} Q4H Take 1 [facility] cetaminophe 4-10 05-[address] n 00:00: 04:59 mouth Hospita (PERCOCET) 00 :00 every 4 l 5-325 mg (four) per tablet hours as needed for moderate pain for up to 5 days .acute pain. Max Daily Amount: 6 tablets oxyCODone-a 1{tbl} Q4H Take 1 [facility]i cetaminophe 4-10 05-[address] n 00:00: 04:59 mouth Hospita (PERCOCET) 00 :00 every 4 l 5-325 mg (four) per tablet hours as needed for moderate pain for up to 5 days .acute pain. Max Daily Amount: 6 tablets oxyCODone-a 1{tbl} Q4H Take 1 [facility] cetaminophe 4-10 05-[address] n 00:00: 04:59 mouth Hospita (PERCOCET) 00 :00 every 4 l 5-325 mg (four) per tablet hours as needed for moderate pain for up to 5 days .acute pain. Max Daily Amount: 6 tablets oxyCODone-a 1{tbl} Q4H Take 1 [facility] cetaminophe -10 05- tablet by st n 00:00: 04:59 mouth Hospita (PERCOCET) 00 :00 every 4 l 5-325 mg (four) per tablet hours as needed for moderate pain for up to 5 days .acute pain. Max Daily Amount: 6 tablets oxyCODone-a 1{tbl} Q4H Take 1 [facility] cetaminophe 4-10 05-[address] n 00:00: 04:59 mouth Hospita (PERCOCET) 00 :00 every 4 l 5-325 mg (four) per tablet hours as needed for moderate pain for up to 5 days .acute pain. Max Daily Amount: 6 tablets oxyCODone-a 1{tbl} Q4H Take 1 [facility] cetaminophe 4-10 05-[address] n 00:00: 04:59 mouth Hospita (PERCOCET) 00 :00 every 4 l 5-325 mg (four) per tablet hours as needed for moderate pain for up to 5 days .acute pain. Max Daily Amount: 6 tablets oxyCODone-a 1{tbl} Q4H Take 1 [facility] cetaminophe 06-[address] n 00:00: 04:59 mouth Hospita (PERCOCET) 00 :00 every 4 l 5-325 mg (four) per tablet hours as needed for moderate pain for up to 5 days .acute pain. Max Daily Amount: 6 tablets oxyCODone-a No 1{tbl} Q4H Take 1 [facility] cetaminophe 06-[address] n 00:00: 04:59 mouth Hospita (PERCOCET) 00 :00 every 4 l 5-325 mg (four) per tablet hours as needed for moderate pain for up to 5 days .acute pain. Max Daily Amount: 6 tablets oxyCODone-a 1{tbl} Q4H Take 1 [facility] cetaminophe 06-[address] n 00:00: 04:59 mouth Hospita (PERCOCET) 00 :00 every 4 l 5-325 mg (four) per tablet hours as needed for moderate pain for up to 5 days .acute pain. Max Daily Amount: 6 tablets predniSONE No [id number] 50mg QD Take 1 [facility]i (DELTASONE) 04-11 tablet (50 s t 50 mg 00:00: 05:59 mg total) Hospit a tablet 00 :00 by mouth l daily for 5 days. predniSONE 2021- No [id number] 50mg QD Take 1 [facility] (DELTASONE) 04-11 tablet (50 s t 50 mg 00:00: 05:59 mg total) Hospit a tablet 00 :00 by mouth l daily for 5 days. predniSONE 2021- No [id number] 50mg QD Take 1 [facility]i (DELTASONE) 04-11 tablet (50 s t 50 mg 00:00: 05:59 mg total) Hospit a tablet 00 :00 by mouth l daily for 5 days. predniSONE 2021- No [id number] 50mg QD Take 1 [facility] (DELTASONE) 04-11 tablet (50 s t 50 mg 00:00: 05:59 mg total) Hospit a tablet 00 :00 by mouth l daily for 5 days. predniSONE 2021- No [id number] 50mg QD Take 1 [facility]i (DELTASONE) 04-11 tablet (50 s t 50 mg 00:00: 05:59 mg total) Hospit a tablet 00 :00 by mouth l daily for 5 days. predniSONE 2021-2021- No [id number] 50mg QD Take 1 [facility] (DELTASONE) 04-11 tablet (50 s t 50 mg 00:00: 05:59 mg total) Hospit a tablet 00 :00 by mouth l daily for 5 days. predniSONE 2021- No [id number] 50mg QD Take 1 [facility]i (DELTASONE) 04-11 tablet (50 s t 50 mg 00:00: 05:59 mg total) Hospit a tablet 00 :00 by mouth l daily for 5 days. predniSONE 2021-2021- No [id number] 50mg QD Take 1 [facility]i (DELTASONE) 04-11 tablet (50 s t 50 mg 00:00: 05:59 mg total) Hospit a tablet 00 :00 by mouth l daily for 5 days. predniSONE 2021- No [id number] 50mg QD Take 1 [facility] (DELTASONE) 04-11 tablet (50 s t 50 mg 00:00: 05:59 mg total) Hospit a tablet 00 :00 by mouth l daily for 5 days. predniSONE 2021-2021- No [id number] 50mg QD Take 1 [facility]i (DELTASONE) 04-11 tablet (50 s t 50 mg 00:00: 05:59 mg total) Hospit a tablet 00 :00 by mouth l daily for 5 days. predniSONE 2021- No [id number] 50mg QD Take 1 [facility] (DELTASONE) 04-11 tablet (50 s t 50 mg 00:00: 05:59 mg total) Hospit a tablet 00 :00 by mouth l daily for 5 days. predniSONE 2021- No [id number] 50mg QD Take 1 [facility] (DELTASONE) 04-11 tablet (50 s t 50 mg 00:00: 05:59 mg total) Hospit a tablet 00 :00 by mouth l daily for 5 days. triamcinolo 2021- No [id number] Q.5D Apply [facility] ne 04-[address] (KENALOG) 00:00: 05:59 2 (two) Hosp mi 0.1 % cream 00 :00 times a l day for 21 days. Do not apply for longer than 14 days continuous ly. triamcinolo 2021- No [id number] Q.5D Apply Methodi ne 04-[address] (KENALOG) 00:00: 05:59 2 (two) Hosp mi 0.1 % cream 00 :00 times a l day for 21 days. Do not apply for longer than 14 days continuous ly. triamcinolo 2021- No [id number] Q.5D Apply Methodi ne 04-[address] (KENALOG) 00:00: 05:59 2 (two) Hosp mi 0.1 % cream 00 :00 times a l day for 21 days. Do not apply for longer than 14 days continuous ly. triamcinolo 2021- No [id number] Q.5D Apply Methodi ne 04-[address] (KENALOG) 00:00: 05:59 2 (two) Hosp mi 0.1 % cream 00 :00 times a l day for 21 days. Do not apply for longer than 14 days continuous ly. triamcinolo 2021- No [id number] Q.5D Apply Methodi ne 04-06-[address] (KENALOG) 00:00: 05:59 2 (two) Hosp mi 0.1 % cream 00 :00 times a l day for 21 days. Do not apply for longer than 14 days continuous ly. triamcinolo 2021- No [id number] Q.5D Apply Methodi ne 04-[address] (KENALOG) 00:00: 05:59 2 (two) Hosp mi 0.1 % cream 00 :00 times a l day for 21 days. Do not apply for longer than 14 days continuous ly. triamcinolo 2021- No [id number] Q.5D Apply Methodi ne 04-[address] (KENALOG) 00:00: 05:59 2 (two) Hosp mi 0.1 % cream 00 :00 times a l day for 21 days. Do not apply for longer than 14 days continuous ly. triamcinolo 2021- No [id number] Q.5D Apply Methodi ne 04-[address] (KENALOG) 00:00: 05:59 2 (two) Hosp mi 0.1 % cream 00 :00 times a l day for 21 days. Do not apply for longer than 14 days continuous ly. triamcinolo 2021- No [id number] Q.5D Apply Methodi ne 04-[address] (KENALOG) 00:00: 05:59 2 (two) Hosp mi 0.1 % cream 00 :00 times a l day for 21 days. Do not apply for longer than 14 days continuous ly. triamcinolo 2021- No [id number] Q.5D Apply Methodi ne 04-[address] (KENALOG) 00:00: 05:59 2 (two) Hosp mi 0.1 % cream 00 :00 times a l day for 21 days. Do not apply for longer than 14 days continuous ly. triamcinolo 2021- No [id number] Q.5D Apply Methodi ne 04-[address] (KENALOG) 00:00: 05:59 2 (two) Hosp mi 0.1 % cream 00 :00 times a l day for 21 days. Do not apply for longer than 14 days continuous ly. triamcinolo 2021- No [id number] Q.5D Apply Methodi ne 04-[address] (KENALOG) 00:00: 05:59 2 (two) Hosp mi 0.1 % cream 00 :00 times a l day for 21 days. Do not apply for longer than 14 days continuous ly. diclofenac 2021- No [id number] Q.25D Apply [facility]i (VOLTAREN) 03-[address] 1 % gel 00:00: 00:00 4 (four) Hospi ta 00 :00 times a l day. diclofenac 2021- No [id number] Q.25D Apply Methodi (VOLTAREN) 03-[address] 1 % gel 00:00: 00:00 4 (four) Hospi ta 00 :00 times a l day. diclofenac 2021- No [id number] Q.25D Apply Methodi (VOLTAREN) 03-[address] 1 % gel 00:00: 00:00 4 (four) Hospi ta 00 :00 times a l day. diclofenac 2021- No [id number] Q.25D Apply Methodi (VOLTAREN) 03-[address] 1 % gel 00:00: 00:00 4 (four) Hospi ta 00 :00 times a l day. diclofenac 2021- No [id number] Q.25D Apply Methodi (VOLTAREN) 03-[address] 1 % gel 00:00: 00:00 4 (four) Hospi ta 00 :00 times a l day. diclofenac 2021- No [id number] Q.25D Apply Methodi (VOLTAREN) 03-[address] 1 % gel 00:00: 00:00 4 (four) Hospi ta 00 :00 times a l day. diclofenac 2021- No [id number] Q.25D Apply [facility] (VOLTAREN) 03-[address] 1 % gel 00:00: 00:00 4 (four) Hospi ta 00 :00 times a l day. diclofenac 2021- No [id number] Q.25D Apply [facility] (VOLTAREN) 03-[address] 1 % gel 00:00: 00:00 4 (four) Hospi ta 00 :00 times a l day. diclofenac 2021- No [id number] Q.25D Apply [facility] (VOLTAREN) 03-[address] 1 % gel 00:00: 00:00 4 (four) Hospi ta 00 :00 times a l day. diclofenac 2021-2021- No [id number] Q.25D Apply [facility] (VOLTAREN) 03-29- topically st 1 % gel 00:00: 00:00 4 (four) Hospi ta 00 :00 times a l day. diclofenac 2021-0 2021- No [id number] Q.25D Apply [facility]i (VOLTAREN) 03-29- topically st 1 % gel 00:00: 00:00 4 (four) Hospi ta 00 :00 times a l day. diclofenac 2021-2021- No [id number] Q.25D Apply [facility] (VOLTAREN) 03-[address] 1 % gel 00:00: 00:00 4 (four) Hospi ta 00 :00 times a l day. losartan-hy 2022- No 1{tbl} QD Take 1 M ethodi drochloroth 1-03-[address] iazide 00:00: 05:59 mouth Hospita (Hyzaar) 00 :00 daily. l 50-12.5 mg per tablet losartan-hy 2021-0 2022- No 1{tbl} QD Take 1 M ethodi drochloroth -03-[address] iazide 00:00: 05:59 mouth Hospita (Hyzaar) 00 :00 daily. l 50-12.5 mg per tablet losartan-hy 2021-0 2022- No 1{tbl} QD Take 1 M ethodi drochloroth 1-06 02- tablet by st iazide 00:00: 05:59 mouth Hospita (Hyzaar) 00 :00 daily. l 50-12.5 mg per tablet losartan-hy 2021-0 2022- No 1{tbl} QD Take 1 M ethodi drochloroth 1-06 02- tablet by st iazide 00:00: 05:59 mouth Hospita (Hyzaar) 00 :00 daily. l 50-12.5 mg per tablet losartan-hy 2021-0 2022- No 1{tbl} QD Take 1 M ethodi drochloroth 1-06 02-[address] iazide 00:00: 05:59 mouth Hospita (Hyzaar) 00 :00 daily. l 50-12.5 mg per tablet losartan-2021-0 2022- No 1{tbl} QD Take 1 M ethodi drochloroth 1-06 02- tablet by st iazide 00:00: 05:59 mouth Hospita (Hyzaar) 00 :00 daily. l 50-12.5 mg per tablet losartan-2021-0 2022- No 1{tbl} QD Take 1 M ethodi drochloroth 1-06 02- tablet by st iazide 00:00: 05:59 mouth Hospita (Hyzaar) 00 :00 daily. l 50-12.5 mg per tablet losartan-2021-0 2022- No 1{tbl} QD Take 1 M ethodi drochloroth 1-06 02- tablet by st iazide 00:00: 05:59 mouth Hospita (Hyzaar) 00 :00 daily. l 50-12.5 mg per tablet losartan-2022- No 1{tbl} QD Take 1 M ethodi drochloroth 03-07- tablet by st iazide 00:00: 05:59 mouth Hospita (Hyzaar) 00 :00 daily. l 50-12.5 mg per tablet losartan-0 3- No 1{tbl} QD Take 1 M ethodi drochloroth 03-07- tablet by st iazide 00:00: 05:59 mouth Hospita (Hyzaar) 00 :00 daily. l 50-12.5 mg per tablet losartan-0 3- No 1{tbl} QD Take 1 M ethodi drochloroth 1-06 02-[address] iazide 00:00: 05:59 mouth Hospita (Hyzaar) 00 :00 daily. l 50-12.5 mg per tablet losartan-2021-0 3- No 1{tbl} QD Take 1 M ethodi drochloroth 1-06 02-[address] iazide 00:00: 05:59 [facility] (Hyzaar) 00 :00 daily. l 50-12.5 mg per tablet amLODIPine 2022-0 2022- No 10mg QD Take 1 [facility] ([facility]) 03-07 tablet (10 st 10 mg 00:00: 00:00 mg total) [facility] a tablet 00 :00 by mouth l daily. amLODIPine 2022-0 2022- No 10mg QD Take 1 [facility] ([facility]) 03-07 tablet (10 st 10 mg 00:00: 00:00 mg total) [facility] tablet 00 :00 by mouth l daily. amLODIPine 2022-0 2022- No 10mg QD Take 1 Meth [facility] ([facility]) 03-07 tablet (10 st 10 mg 00:00: 00:00 mg total) [facility] a tablet 00 :00 by mouth l daily. amLODIPine 2022-0 2022- No 10mg QD Take 1 [facility] ([facility]) 03-07 tablet (10 st 10 mg 00:00: 00:00 mg total) [facility] tablet 00 :00 by mouth l daily. amLODIPine 2022-0 2022- No 10mg QD Take 1 Meth [facility] ([facility]) 03-07 tablet (10 st 10 mg 00:00: 00:00 mg total) [facility] tablet 00 :00 by mouth l daily. amLODIPine 2022-0 2022- No 10mg QD Take 1 [facility] ([facility]) 03-07 tablet (10 st 10 mg 00:00: 00:00 mg total) [facility] tablet 00 :00 by mouth l daily. amLODIPine 2022-0 2022- No 10mg QD Take 1 Meth [facility] ([facility]) 03-07 tablet (10 st 10 mg 00:00: 00:00 mg total) [facility] tablet 00 :00 by mouth l daily. amLODIPine 2022-0 2022- No 10mg QD Take 1 [facility] ([facility]) 03-07 tablet (10 st 10 mg 00:00: 00:00 mg total) [facility] 00 :00 by mouth l daily. amLODIPine 2022-0 2022- No 10mg QD Take 1 [facility] ([facility]ASC) 03-07 tablet (10 st 10 mg 00:00: 00:00 mg total) [facility] 00 :00 by mouth l daily. amLODIPine 2022-0 2022- No 10mg QD Take 1 [facility] ([facility]ASC) 03-07 tablet (10 st 10 mg 00:00: 00:00 mg total) [facility] tablet 00 :00 by mouth l daily. amLODIPine 2022-0 2022- No 10mg QD Take 1 [facility] ([facility]ASC) 03-07 tablet (10 st 10 mg 00:00: 00:00 mg total) [facility] tablet 00 :00 by mouth l daily. amLODIPine 2-0 2022- No 10mg QD Take 1 [facility] ([facility]ASC) 03-07 tablet (10 st 10 mg 00:00: 00:00 mg total) [facility] tablet 00 :00 by mouth l daily. pantoprazol 2022-0 2022- No 40mg QD Take 1 [facility] tablet (40 st (PROTONIX) 00:00: 00:00 mg total) [facility] 40 MG EC 00 :00 by mouth l tablet daily for 90 days. pantoprazol 2022-0 2022- No 40mg QD Take 1 [facility] 03-07 tablet (40 st (PROTONIX) 00:00: 00:00 mg total) [facility] 40 MG EC 00 :00 by mouth l tablet daily for 90 days. pantoprazol 2-0 2022- No 40mg QD Take 1 [facility]-07 tablet (40 st (PROTONIX) 00:00: 00:00 mg total) [facility] 40 MG EC 00 :00 by mouth l tablet daily for 90 days. pantoprazol 2022-0 2022- No 40mg QD Take 1 [facility] 03-07 tablet (40 st (PROTONIX) 00:00: 00:00 mg total) [facility] 40 MG EC 00 :00 by mouth l tablet daily for 90 days. pantoprazol 2022-0 2022- No 40mg QD Take 1 [facility] 03-07 tablet (40 st (PROTONIX) 00:00: 00:00 mg total) [facility] 40 MG EC 00 :00 by mouth l tablet daily for 90 days. pantoprazol 2021- No 40mg QD Take 1 [facility] 03-07 tablet (40 st (PROTONIX) 00:00: 00:00 mg total) [facility] 40 MG EC 00 :00 by mouth l tablet daily for 90 days. pantoprazol 2021- No 40mg QD Take 1 [facility] 03-07 tablet (40 st (PROTONIX) 00:00: 00:00 mg total) [facility] 40 MG EC 00 :00 by mouth l tablet daily for 90 days. pantoprazol 2021- No 40mg QD Take 1 [facility] 03-07 tablet (40 st (PROTONIX) 00:00: 00:00 mg total) [facility] 40 MG EC 00 :00 by mouth l tablet daily for 90 days. pantoprazol 2021- No 40mg QD Take 1 [facility] 03-07 tablet (40 st (PROTONIX) 00:00: 00:00 mg total) [facility] 40 MG EC 00 :00 by mouth l tablet daily for 90 days. pregabalin 2020-03- No [id number] 75mg Q.5D Take 1 [facility] (Lyrica) 75 2-30 12-[address] MG capsule 00:00: 05:59 (75 mg [facility] 00 :00 total) by l mouth 2 (two) times a day. pregabalin 2020-03- No [id number] 75mg Q.5D Take 1 [facility] (Lyrica) 75 2-30 12-[address] MG capsule 00:00: 05:59 (75 mg [facility] 00 :00 total) by l mouth 2 (two) times a day. pregabalin 2020-03- No [id number] 75mg Q.5D Take 1 [facility] (Lyrica) 75 2-30 12-[address] MG capsule 00:00: 05:59 (75 mg [facility] 00 :00 total) by l mouth 2 (two) times a day. pregabalin 2020-03- No [id number] 75mg Q.5D Take 1 [facility] (Lyrica) 75 2-30 12-[address] MG capsule 00:00: 05:59 (75 mg [facility] 00 :00 total) by l mouth 2 (two) times a day. pregabalin 2020-03- No [id number] 75mg Q.5D Take 1 [facility] (Lyrica) 75 2-30 12-[address] MG capsule 00:00: 05:59 (75 mg [facility] 00 :00 total) by l mouth 2 (two) times a day. pregabalin 2020-03- No [id number] 75mg Q.5D Take 1 [facility] (Lyrica) 75 2-30 12-[address] MG capsule 00:00: 05:59 (75 mg [facility] 00 :00 total) by l mouth 2 (two) times a day. pregabalin 2020-03- No [id number] 75mg Q.5D Take 1 [facility] (Lyrica) 75 2-30 12-[address] MG capsule 00:00: 05:59 (75 mg [facility] 00 :00 total) by l mouth 2 (two) times a day. pregabalin 2020-03- No [id number] 75mg Q.5D Take 1 [facility] (Lyrica) 75 2-30 12-[address] MG capsule 00:00: 05:59 (75 mg [facility] 00 :00 total) by l mouth 2 (two) times a day. pregabalin 2020-03- No [id number] 75mg Q.5D Take 1 [facility] (Lyrica) 75 2-30 12-[address] MG capsule 00:00: 05:59 (75 mg [facility] 00 :00 total) by l mouth 2 (two) times a day. pregabalin 2020-03- No [id number] 75mg Q.5D Take 1 [facility] (Lyrica) 75 2-30 12-[address] MG capsule 00:00: 05:59 (75 mg [facility] 00 :00 total) by l mouth 2 (two) times a day. pregabalin 2020-03- No [id number] 75mg Q.5D Take 1 [facility] (Lyrica) 75 2-30 12-[address] MG capsule 00:00: 05:59 (75 mg [facility] 00 :00 total) by l mouth 2 (two) times a day. pregabalin 2020-03- No [id number] 75mg Q.5D Take 1 [facility] (Lyrica) 75 2 12-[address] MG capsule 00:00: 05:59 (75 mg [facility] 00 :00 total) by l mouth 2 (two) times a day. apixaban 2020-03- No [id number] 5mg Q.5D Take 1 [facility] (ELIQUIS) 5 2-30 09-20 tablet (5 st mg tablet 00:00: 00:00 mg total) [facility] 00 :00 by mouth 2 l (two) times a day .blood clot [facility]. apixaban 2020-03- No [id number] 5mg Q.5D Take 1 [facility] (ELIQUIS) 5 2-01 12-20 tablet (5 st mg tablet 00:00: 00:00 mg total) [facility] 00 :00 by mouth 2 l (two) times a day .blood clot in a deep vein [facility]. apixaban 2020-03- No [id number] 5mg Q.5D Take 1 [facility] (ELIQUIS) 5 2-30 09-20 tablet (5 st mg tablet 00:00: 00:00 mg total) [facility] 00 :00 by mouth 2 l (two) times a day .blood clot in a deep vein [facility]. apixaban 2020-03- No [id number] 5mg Q.5D Take 1 [facility] (ELIQUIS) 5 2-30 09-20 tablet (5 st mg tablet 00:00: 00:00 mg total) [facility] 00 :00 by mouth 2 l (two) times a day .blood clot in a deep vein [facility]. apixaban 2020-03- No [id number] 5mg Q.5D Take 1 [facility] (ELIQUIS) 5 2-30 09-20 tablet (5 st mg tablet 00:00: 00:00 mg total) [facility] 00 :00 by mouth 2 l (two) times a day .blood clot in a deep vein [facility]. apixaban 2020-03- No [id number] 5mg Q.5D Take 1 [facility] (ELIQUIS) 5 2-30 09-20 tablet (5 st mg tablet 00:00: 00:00 mg total) [facility] 00 :00 by mouth 2 l (two) times a day .blood clot in a deep vein [facility]. apixaban 2020-03- No [id number] 5mg Q.5D Take 1 [facility] (ELIQUIS) 5 2-30 09-20 tablet (5 st mg tablet 00:00: 00:00 mg total) [facility] 00 :00 by mouth 2 l (two) times a day .blood clot in a deep vein [facility]. apixaban 2020-03- No [id number] 5mg Q.5D Take 1 [facility] (ELIQUIS) 5 2-30 09-20 tablet (5 st mg tablet 00:00: 00:00 mg total) [facility] 00 :00 by mouth 2 l (two) times a day .blood clot in a deep vein [facility]. apixaban 2020-03- No [id number] 5mg Q.5D Take 1 [facility] (ELIQUIS) 5 2-30 09-20 tablet (5 st mg tablet 00:00: 00:00 mg total) [facility] 00 :00 by mouth 2 l (two) times a day .blood clot in a deep vein [facility]. apixaban 2020-03- No [id number] 5mg Q.5D Take 1 [facility] (ELIQUIS) 5 2-30 09-20 tablet (5 st mg tablet 00:00: 00:00 mg total) [facility] 00 :00 by mouth 2 l (two) times a day .blood clot in a deep vein [facility]. apixaban 2020-03- No [id number] 5mg Q.5D Take 1 [facility] (ELIQUIS) 5 2-30 09-20 tablet (5 st mg tablet 00:00: 00:00 mg total) [facility] 00 :00 by mouth 2 l (two) times a day .blood clot in a deep vein [facility]. apixaban 2020-03- No [id number] 5mg Q.5D Take 1 [facility] (ELIQUIS) 5 2-30 09-20 tablet (5 st mg tablet 00:00: 00:00 mg total) [facility] 00 :00 by mouth 2 l (two) times a day .blood clot in a deep vein [facility] glimepiride 2020-03- No [id number] 1mg QD Take 1 [facility] (AmaryL) 1 - tablet (1 st MG tablet 00:00: 00:00 mg total) [facility] 00 :00 by mouth l daily before breakfast. glimepiride 2020-03- No [id number] 1mg QD Take 1 [facility] (AmaryL) 1 11-09 tablet (1 st MG tablet 00:00: 00:00 mg total) [facility] 00 :00 by mouth l daily before breakfast. glimepiride 2020-03- No [id number] 1mg QD Take 1 [facility] (AmaryL) 1 11-09 tablet (1 st MG tablet 00:00: 00:00 mg total) [facility] 00 :00 by mouth l daily before breakfast. glimepiride 2020-03- No [id number] 1mg QD Take 1 [facility] (AmaryL) 1 11-09 tablet (1 st MG tablet 00:00: 00:00 mg total) [facility] 00 :00 by mouth l daily before breakfast. glimepiride 2020-03- No [id number] 1mg QD Take 1 [facility] (AmaryL) 1 - tablet (1 st MG tablet 00:00: 00:00 mg total) [facility] 00 :00 by mouth l daily before breakfast. glimepiride 2020-03- No [id number] 1mg QD Take 1 [facility] (AmaryL) 1 - tablet (1 st MG tablet 00:00: 00:00 mg total) [facility] 00 :00 by mouth l daily before breakfast. glimepiride 2020-03- No [id number] 1mg QD Take 1 [facility] (AmaryL) 1 - tablet (1 st MG tablet 00:00: 00:00 mg total) [facility] 00 :00 by mouth l daily before breakfast. glimepiride 2020-03- No [id number] 1mg QD Take 1 [facility] (AmaryL) 1 - tablet (1 st MG tablet 00:00: 00:00 mg total) [facility] 00 :00 by mouth l daily before breakfast. glimepiride 2020-03- No [id number] 1mg QD Take 1 [facility] (AmaryL) 1 - tablet (1 st MG tablet 00:00: 00:00 mg total) [facility] 00 :00 by mouth l daily before breakfast. glimepiride 2020-03- No [id number] 1mg QD Take 1 [facility] (AmaryL) 1 11-09 tablet (1 st MG tablet 00:00: 00:00 mg total) [facility] 00 :00 by mouth l daily before breakfast. glimepiride 2020-03- No [id number] 1mg QD Take 1 [facility] (AmaryL) 1 11-09 tablet (1 st MG tablet 00:00: 00:00 mg total) [facility] 00 :00 by mouth l daily before breakfast. glimepiride 2020-03- No [id number] 1mg QD Take 1 [facility] (AmaryL) 1 11-09 tablet (1 st MG tablet 00:00: 00:00 mg total) [facility] 00 :00 by mouth l daily before breakfast. DULoxetine 2020-03- No [id number] 20mg QD Take 1 [facility] (Cymbalta) 11-[address] 20 MG 00:00: 00:00 (20 mg [facility]osp[facility] capsule 00 :00 total) by l mouth daily. DULoxetine 2020-03- No [id number] 20mg QD Take 1 [facility] (Cymbalta) 11-[address] 20 MG 00:00: 00:00 (20 mg [facility]osp[facility] capsule 00 :00 total) by l mouth daily. DULoxetine 2020-03- No [id number] 20mg QD Take 1 [facility] (Cymbalta) 11-[address] 20 MG 00:00: 00:00 (20 mg [facility]osp[facility] capsule 00 :00 total) by l mouth daily. DULoxetine 2020-03- No [id number] 20mg QD Take 1 [facility] (Cymbalta) 11-[address] 20 MG 00:00: 00:00 (20 mg [facility]osp[facility] capsule 00 :00 total) by l mouth daily. DULoxetine 2020-03- No [id number] 20mg QD Take 1 [facility] (Cymbalta) 11-[address] 20 MG 00:00: 00:00 (20 mg [facility]osp[facility] capsule 00 :00 total) by l mouth daily. DULoxetine 2020-03- No [id number] 20mg QD Take 1 [facility] (Cymbalta) 11-[address] 20 MG 00:00: 00:00 (20 mg [facility]osp[facility] capsule 00 :00 total) by l mouth daily. DULoxetine 2020-03- No [id number] 20mg QD Take 1 [facility] (Cymbalta) 11-[address] 20 MG 00:00: 00:00 (20 mg [facility]ospita capsule 00 :00 total) by l mouth daily. DULoxetine 2020-03- No [id number] 20mg QD Take 1 [facility] (Cymbalta) 11-[address] 20 MG 00:00: 00:00 (20 mg [facility]osp[facility] capsule 00 :00 total) by l mouth daily. DULoxetine 2020-03- No [id number] 20mg QD Take 1 [facility] (Cymbalta) 11-[address] 20 MG 00:00: 00:00 (20 mg [facility]osp[facility] capsule 00 :00 total) by l mouth daily. DULoxetine 2020-03- No [id number] 20mg QD Take 1 [facility] (Cymbalta) 11-[address] 20 MG 00:00: 00:00 (20 mg [facility]osp[facility] capsule 00 :00 total) by l mouth daily. DULoxetine 2020-03- No [id number] 20mg QD Take 1 [facility] (Cymbalta) 11-[address] 20 MG 00:00: 00:00 (20 mg [facility] capsule 00 :00 total) by l mouth daily. DULoxetine 2020-03- No [id number] 20mg QD Take 1 [facility] (Cymbalta) 11-[address] 20 MG 00:00: 00:00 (20 mg [facility]osp[facility] capsule 00 :00 total) by l mouth daily. methocarbam 2020-03- No [id number] 500mg Q.25D Take 1 [facility] 07[facility] (ROBAXIN) 00:00: 00:00 (500 mg [facility] 500 MG 00 :00 total) by l tablet mouth 4 (four) times a day as needed for muscle spasms. methocarbam 2020-03- No [id number] 500mg Q.25D Take 1 [facility] 07[facility] (ROBAXIN) 00:00: 00:00 (500 mg [facility] 500 MG 00 :00 total) by l tablet mouth 4 (four) times a day as needed for muscle spasms. methocarbam 2020-03- No [id number] 500mg Q.25D Take 1 [facility] 07[facility] (ROBAXIN) 00:00: 00:00 (500 mg [facility] 500 MG 00 :00 total) by l tablet mouth 4 (four) times a day as needed for muscle spasms. methocarbam 2020-03- No [id number] 500mg Q.25D Take 1 [facility] 07[facility] (ROBAXIN) 00:00: 00:00 (500 mg [facility] 500 MG 00 :00 total) by l tablet mouth 4 (four) times a day as needed for muscle spasms. methocarbam 2020-03- No [id number] 500mg Q.25D Take 1 [facility] 07[facility] (ROBAXIN) 00:00: 00:00 (500 mg [facility] 500 MG 00 :00 total) by l tablet mouth 4 (four) times a day as needed for muscle spasms. methocarbam 2020-03- No [id number] 500mg Q.25D Take 1 [facility] 07[facility] (ROBAXIN) 00:00: 00:00 (500 mg [facility] 500 MG 00 :00 total) by l tablet mouth 4 (four) times a day as needed for muscle spasms. methocarbam 2020-03- No [id number] 500mg Q.25D Take 1 [facility] 207-[address] (ROBAXIN) 00:00: 00:00 (500 mg [facility] 500 MG 00 :00 total) by l tablet mouth 4 (four) times a day as needed for muscle spasms. methocarbam 2020-03- No [id number] 500mg Q.25D Take 1 [facility] 07[facility] (ROBAXIN) 00:00: 00:00 (500 mg [facility] 500 MG 00 :00 total) by l tablet mouth 4 (four) times a day as needed for muscle spasms. methocarbam 2020-03- No [id number] 500mg Q.25D Take 1 [facility] 07[facility] (ROBAXIN) 00:00: 00:00 (500 mg [facility] 500 MG 00 :00 total) by l tablet mouth 4 (four) times a day as needed for muscle spasms. methocarbam 2020-03- No [id number] 500mg Q.25D Take 1 [facility] 07[facility] (ROBAXIN) 00:00: 00:00 (500 mg [facility] 500 MG 00 :00 total) by l tablet mouth 4 (four) times a day as needed for muscle spasms. methocarbam 2020-03- No [id number] 500mg Q.25D Take 1 [facility] 207-[address] (ROBAXIN) 00:00: 00:00 (500 mg [facility] 500 MG 00 :00 total) by l tablet mouth 4 (four) times a day as needed for muscle spasms. methocarbam 2020-03- No [id number] 500mg Q.25D Take 1 [facility] 207-[address] (ROBAXIN) 00:00: 00:00 (500 mg [facility] 500 MG 00 :00 total) by l tablet mouth 4 (four) times a day as needed for muscle spasms. methocarbam 2020-03- No [id number] TAKE 1 [facility] 05-01 9104 TABLET(500 st (ROBAXIN) 00:00: 00:00 MG) BY [facility] 500 MG 00 :00 MOUTH FOUR l tablet TIMES DAILY NEEDED FOR MUSCLE SPASMS methocarbam 2020-03- No [id number] TAKE 1 [facility] 05-01 9104 TABLET(500 st (ROBAXIN) 00:00: 00:00 MG) BY [facility] 500 MG 00 :00 MOUTH FOUR l tablet TIMES DAILY NEEDED FOR MUSCLE SPASMS methocarbam 2020-03- No [id number] TAKE 1 [facility] 05-01 9104 TABLET(500 st (ROBAXIN) 00:00: 00:00 MG) BY Hos[facility] 500 MG 00 :00 MOUTH FOUR l tablet TIMES DAILY NEEDED FOR MUSCLE SPASMS methocarbam 2020-03- No [id number] TAKE 1 [facility] 05-01 9104 TABLET(500 st (ROBAXIN) 00:00: 00:00 MG) BY [facility] 500 MG 00 :00 MOUTH FOUR l tablet TIMES DAILY NEEDED FOR MUSCLE SPASMS methocarbam 2020-03- No [id number] TAKE 1 [facility] 05-01 9104 TABLET(500 st (ROBAXIN) 00:00: 00:00 MG) BY Hos[facility] 500 MG 00 :00 MOUTH FOUR l tablet TIMES DAILY NEEDED FOR MUSCLE SPASMS methocarbam 2020-03- No [id number] TAKE 1 [facility] 05-01 9104 TABLET(500 st (ROBAXIN) 00:00: 00:00 MG) BY [facility] 500 MG 00 :00 MOUTH FOUR l tablet TIMES DAILY NEEDED FOR MUSCLE SPASMS methocarbam 2020-03- No [id number] TAKE 1 [facility] 05-01 9104 TABLET(500 st (ROBAXIN) 00:00: 00:00 MG) BY [facility] 500 MG 00 :00 MOUTH FOUR l tablet TIMES DAILY NEEDED FOR MUSCLE SPASMS pantoprazol 2020-03- No QD daily. [facility] 2-[facility]-07 st (PROTONIX) 00:00: 00:00 Hospit a 40 MG EC 00 :00 l tablet pantoprazol 2020-03- No QD daily. [facility]-04 st (PROTONIX) 00:00: 00:00 Hospit a 40 MG EC 00 :00 l tablet pantoprazol 2020-03- No QD daily. [facility] st (PROTONIX) 00:00: 00:00 Hospit a 40 MG EC 00 :00 l tablet pantoprazol 2020-03- No QD daily. [facility] st (PROTONIX) 00:00: 00:00 Hospit a 40 MG EC 00 :00 l tablet pantoprazol 2020-03- No QD daily. [facility] st (PROTONIX) 00:00: 00:00 Hospit a 40 MG EC 00 :00 l tablet pantoprazol 2020-03- No QD daily. [facility] st (PROTONIX) 00:00: 00:00 Hospit a 40 MG EC 00 :00 l tablet pantoprazol 2020-03- No QD daily. [facility] st (PROTONIX) 00:00: 00:00 Hospit a 40 MG EC 00 :00 l tablet HYDROcodone 2020-03 Yes 150{tbl Q.25D Take 150 [facility] -acetaminop 1-18 } tablets by [facility] ([employer]) 00:00: mouth 4 Hos amadou 10-325 mg 00 (four) l per tablet times a day. HYDROcodone 2020-03 Yes 150{tbl Q.25D Take 150 [facility] -acetaminop 1-18 } tablets by [facility] ([employer]) 00:00: mouth 4 Hos amadou 10-325 mg 00 (four) l per tablet times a day. HYDROcodone 2020-03 Yes 150{tbl Q.25D Take 150 [facility] -acetaminop 1-18 } tablets by [facility] ([employer]) 00:00: mouth 4 Hos amaduo 10-325 mg 00 (four) l per tablet times a day. HYDROcodone 2020-03 Yes 150{tbl Q.25D Take 150 [facility] -acetaminop 1-18 } tablets by [facility]) 00:00: mouth 4 Hos amadou 10-325 mg 00 (four) l per tablet times a day. HYDROcodone 2020-03 Yes 150{tbl Q.25D Take 150 [facility] -acetaminop 1-18 } tablets by [facility] ([facility]) 00:00: mouth 4 Hos amadou 10-325 mg 00 (four) l per tablet times a day. HYDROcodone 2020-03 Yes 150{tbl Q.25D Take 150 [facility] -acetaminop 1-18 } tablets by [facility]) 00:00: mouth 4 Hos amadou 10-325 mg 00 (four) l per tablet times a day. HYDROcodone 2020-03 Yes 150{tbl Q.25D Take 150 [facility] -acetaminop 1-18 } tablets by [facility]) 00:00: mouth 4 Hos amadou 10-325 mg 00 (four) l per tablet times a day. HYDROcodone 2020-03 Yes 150{tbl Q.25D Take 150 [facility] -acetaminop 1-18 } tablets by [facility]) 00:00: mouth 4 Hos amadou 10-325 mg 00 (four) l per tablet times a day. HYDROcodone 2020-03 Yes 150{tbl Q.25D Take 150 [facility] -acetaminop 1-18 } tablets by [facility]) 00:00: mouth 4 Hos amadou 10-325 mg 00 (four) l per tablet times a day. HYDROcodone 2020-03 Yes 150{tbl Q.25D Take 150 [facility] -acetaminop 1-18 } tablets by [facility]) 00:00: mouth 4 Hos amadou 10-325 mg 00 (four) l per tablet times a day. HYDROcodone 2020-03 Yes 150{tbl Q.25D Take 150 [facility] -acetaminop 1-18 } tablets by [facility] [employer]) 00:00: mouth 4 Hos amadou 10-325 mg 00 (four) l per tablet times a day. HYDROcodone 2020-03 Yes 150{tbl Q.25D Take 150 [facility] -acetaminop 1-18 } tablets by [facility] [employer]) 00:00: mouth 4 Hos amadou 10-325 mg 00 (four) l per tablet times a day. pregabalin 2020- No [id number] 75mg Q.5D Take 1 [facility] (Lyrica) 75 11-08 12-[address] MG capsule 00:00: 00:00 (75 mg [facility]osp [facility] 00 :00 total) by l mouth 2 (two) times a day. pregabalin 2020- No [id number] 75mg Q.5D Take 1 [facility] (Lyrica) 75 11-08 12-[address] MG capsule 00:00: 00:00 (75 mg [facility]osp [facility] 00 :00 total) by l mouth 2 (two) times a day. pregabalin 2020- No [id number] 75mg Q.5D Take 1 [facility] (Lyrica) 75 11-08 12-[address] MG capsule 00:00: 00:00 (75 mg [facility]osp [facility] 00 :00 total) by l mouth 2 (two) times a day. pregabalin 2020- No [id number] 75mg Q.5D Take 1 [facility] (Lyrica) 75 11-08 12-[address] MG capsule 00:00: 00:00 (75 mg [facility]osp mi 00 :00 total) by l mouth 2 (two) times a day. pregabalin 2020- No [id number] 75mg Q.5D Take 1 [facility] (Lyrica) 75 11-08 12-[address] MG capsule 00:00: 00:00 (75 mg [facility]osp [facility] 00 :00 total) by l mouth 2 (two) times a day. pregabalin 2020- No [id number] 75mg Q.5D Take 1 [facility] (Lyrica) 75 11-08 12-[address] MG capsule 00:00: 00:00 (75 mg [facility] 00 :00 total) by l mouth 2 (two) times a day. pregabalin 2020- No [id number] 75mg Q.5D Take 1 [facility] (Lyrica) 75 11-08 12-[address] MG capsule 00:00: 00:00 (75 mg [facility] 00 :00 total) by l mouth 2 (two) times a day. DULoxetine 2020- No [id number] 20mg QD Take 1 [facility] (Cymbalta) 11-[address] 20 MG 00:00: 00:00 (20 mg [facility]ospita capsule 00 :00 total) by l mouth daily. apixaban 2020- No [id number] 5mg Q.5D Take 1 [facility] (ELIQUIS) 5 11-0130 tablet (5 st mg tablet 00:00: 00:00 mg total) [facility] 00 :00 by mouth 2 l (two) times a day .blood clot [facility] a [facility]. DULoxetine No [id number] 20mg QD Take 1 [facility] (Cymbalta) 11-[address] 20 MG 00:00: 00:00 (20 mg [facility]ospita capsule 00 :00 total) by [place] [id number] 5mg Q.5D Take 1 [facility] (ELIQUIS) 5 11-01 tablet (5 st mg tablet 00:00: 00:00 mg total) [facility] 00 :00 by mouth 2 l (two) times a day .blood clot in a deep vein [facility]. DULoxetine No [id number] 20mg QD Take 1 [facility] (Cymbalta) 11-[address] 20 MG 00:00: 00:00 (20 mg [facility]osp[facility] capsule 00 :00 total) by l mouth daily. apixaban 2020- No [id number] 5mg Q.5D Take 1 [facility] (ELIQUIS) 5 11-01 tablet (5 st mg tablet 00:00: 00:00 mg total) [facility] 00 :00 by mouth 2 l (two) times a day .blood clot in a deep vein [facility]. DULoxetine No [id number] 20mg QD Take 1 [facility] (Cymbalta) 11-[address] 20 MG 00:00: 00:00 (20 mg [facility]osp[facility] capsule 00 :00 total) by l mouth daily. apixaban 2020- No [id number] 5mg Q.5D Take 1 [facility] (ELIQUIS) 5 8-31 12-30 tablet (5 st mg tablet 00:00: 00:00 mg total) [facility] 00 :00 by mouth 2 l (two) times a day .blood clot in a deep vein [facility]. DULoxetine No [id number] 20mg QD Take 1 [facility] (Cymbalta) 11-[address] 20 MG 00:00: 00:00 (20 mg Hosp[facility] capsule 00 :00 total) by l [place] [id number] 5mg Q.5D Take 1 [facility] (ELIQUIS) 5 11-01 tablet (5 st mg tablet 00:00: 00:00 mg total) [facility] 00 :00 by mouth 2 l (two) times a day .blood clot in a deep vein [facility]. DULoxetine No [id number] 20mg QD Take 1 [facility] (Cymbalta) 11-[address] 20 MG 00:00: 00:00 (20 mg Hospita capsule 00 :00 total) by [place] [id number] 5mg Q.5D Take 1 [facility] (ELIQUIS) 5 11-01 tablet (5 st mg tablet 00:00: 00:00 mg total) [facility] 00 :00 by mouth 2 l (two) times a day .blood clot in a deep vein [facility]. DULoxetine No [id number] 20mg QD Take 1 [facility] (Cymbalta) 11-[address] 20 MG 00:00: 00:00 (20 mg Hospita capsule 00 :00 total) by [place] [id number] 5mg Q.5D Take 1 [facility] (ELIQUIS) 5 11-01 tablet (5 st mg tablet 00:00: 00:00 mg total) [facility] 00 :00 by mouth 2 l (two) times a day .blood clot in a deep vein [facility] s. methocarbam No [id number] 500mg Q.25D Take 1 [facility]-[address] (Robaxin) 00:00: 00:00 (500 mg [facility] 500 MG 00 :00 total) by l tablet mouth 4 (four) times a day as needed for muscle spasms. methocarbam 2020- No [id number] 500mg Q.25D Take 1 [facility] (Robaxin) 00:00: 00:00 (500 mg [facility] 500 MG 00 :00 total) by l tablet mouth 4 (four) times a day as needed for muscle spasms. methocarbam 2020- No [id number] 500mg Q.25D Take 1 [facility] (Robaxin) 00:00: 00:00 (500 mg [facility] 500 MG 00 :00 total) by l tablet mouth 4 (four) times a day as needed for muscle spasms. methocarbam 2020- No [id number] 500mg Q.25D Take 1 [facility] (Robaxin) 00:00: 00:00 (500 mg [facility] 500 MG 00 :00 total) by l tablet mouth 4 (four) times a day as needed for muscle spasms. methocarbam 2020- No [id number] 500mg Q.25D Take 1 [facility] (Robaxin) 00:00: 00:00 (500 mg [facility] 500 MG 00 :00 total) by l tablet mouth 4 (four) times a day as needed for muscle spasms. methocarbam 2020- No [id number] 500mg Q.25D Take 1 [facility] (Robaxin) 00:00: 00:00 (500 mg [facility] 500 MG 00 :00 total) by l tablet mouth 4 (four) times a day as needed for muscle spasms. methocarbam 2020- No [id number] 500mg Q.25D Take 1 [facility] (Robaxin) 00:00: 00:00 (500 mg [facility] 500 MG 00 :00 total) by l tablet mouth 4 (four) times a day as needed for muscle spasms. pantoprazol No [id number] 40mg QD Take 1 [facility] tablet (40 st (Protonix) 00:00: 00:00 mg total) [facility] 40 MG EC 00 :00 by mouth l tablet daily. pantoprazol No [id number] 40mg QD Take 1 [facility]01 tablet (40 st (Protonix) 00:00: 00:00 mg total) [facility] 40 MG EC 00 :00 by mouth l tablet daily. pantoprazol No [id number] 40mg QD Take 1 [facility] tablet (40 st (Protonix) 00:00: 00:00 mg total) [facility] 40 MG EC 00 :00 by mouth l tablet daily. pantoprazol No [id number] 40mg QD Take 1 [facility] tablet (40 st (Protonix) 00:00: 00:00 mg total) [facility] 40 MG EC 00 :00 by mouth l tablet daily. pantoprazol No [id number] 40mg QD Take 1 [facility]01 tablet (40 st (Protonix) 00:00: 00:00 mg total) [facility] 40 MG EC 00 :00 by mouth l tablet daily. pantoprazol No [id number] 40mg QD Take 1 [facility] tablet (40 st (Protonix) 00:00: 00:00 mg total) [facility] 40 MG EC 00 :00 by mouth l tablet daily. pantoprazol No [id number] 40mg QD Take 1 [facility] tablet (40 st (Protonix) 00:00: 00:00 mg total) [facility] 40 MG EC 00 :00 by mouth l tablet daily. glimepiride No [id number] 1mg QD Take 1 [facility] (AmaryL) 10-30-30 tablet (1 st MG tablet 00:00: 00:00 mg total) [facility] 00 :00 by mouth l daily before breakfast. glimepiride No [id number] 1mg QD Take 1 [facility] (AmaryL) 1 10-3030 tablet (1 st MG tablet 00:00: 00:00 mg total) [facility] 00 :00 by mouth l daily before breakfast. glimepiride No [id number] 1mg QD Take 1 [facility] (AmaryL) 1 10-3030 tablet (1 st MG tablet 00:00: 00:00 mg total) [facility] 00 :00 by mouth l daily before breakfast. glimepiride No [id number] 1mg QD Take 1 [facility] (AmaryL) 1 10-30 tablet (1 st MG tablet 00:00: 00:00 mg total) [facility] 00 :00 by mouth l daily before breakfast. glimepiride No [id number] 1mg QD Take 1 [facility] (AmaryL) 1 10-30 tablet (1 st MG tablet 00:00: 00:00 mg total) [facility] 00 :00 by mouth l daily before breakfast. glimepiride No [id number] 1mg QD Take 1 [facility] (AmaryL) 1 10-3030 tablet (1 st MG tablet 00:00: 00:00 mg total) [facility] 00 :00 by mouth l daily before breakfast. glimepiride No [id number] 1mg QD Take 1 [facility] (AmaryL) 1 10-3030 tablet (1 st MG tablet 00:00: 00:00 mg total) [facility] 00 :00 by mouth l daily before breakfast. melatonin 3 2020-0 Yes 3mg 3 mg. Metho di mg tablet 10-08 00:00: [facility] 00 l melatonin 3 2020-0 Yes 3mg 3 mg. Metho di mg tablet 10-08 00:00: [facility]osp[facility] 00 l melatonin 3 2020-0 Yes 3mg 3 mg. Metho di mg tablet 10-08 00:00: [facility]osp[facility] 00 l melatonin 3 2021-0 Yes 3mg 3 mg. Metho di mg tablet 10-08 00:00: [facility]osp[facility] 00 l melatonin 3 2021-0 Yes 3mg 3 mg. Metho di mg tablet 10-08 00:00: [facility]osp[facility] 00 l melatonin 3 2021-0 Yes 3mg 3 mg. Metho di mg tablet 10-08 00:00: [facility]osp[facility] 00 l melatonin 3 2021-0 Yes 3mg 3 mg. Metho di mg tablet 10-08 00:00: [facility]osp[facility] 00 l melatonin 3 2021-0 Yes 3mg 3 mg. Metho di mg tablet 10-08 00:00: [facility]osp[facility] 00 l melatonin 3 2021-0 Yes 3mg 3 mg. Metho di mg tablet 10-08 00:00: [facility]osp[facility] 00 l melatonin 3 2021-0 Yes 3mg 3 mg. Metho di mg tablet 10-08 00:00: [facility]ospita 00 l melatonin 3 2021-0 Yes 3mg 3 mg. Metho di mg tablet 10-08 00:00: [facility]osp[facility] 00 l melatonin 3 2021-0 Yes 3mg 3 mg. Metho di mg tablet 10-08 00:00: [facility]osp[facility] 00 l diclofenac 2021-0 Yes [id number] YULIA 1 PA [facility] (FLECTOR) 08-[address] 1.3 % patch 00:00: SKIN Q 12 [facility] 12 hour 00 H PRN l diclofenac 2021-0 Yes [id number] YULIA 1 PA [facility] (FLECTOR) 08-[address] 1.3 % patch 00:00: SKIN Q 12 [facility] 12 hour 00 H PRN l diclofenac 2021-0 Yes [id number] YULIA 1 PA [facility] (FLECTOR) 08-[address] 1.3 % patch 00:00: SKIN Q 12 [facility] 12 hour 00 H PRN l diclofenac 2021-0 Yes [id number] YULIA 1 PA [facility] (FLECTOR) 08-[address] 1.3 % patch 00:00: SKIN Q 12 [facility] 12 hour 00 H PRN l diclofenac 2021-0 Yes [id number] YULIA 1 PA [facility] (FLECTOR) 08-[address] 1.3 % patch 00:00: SKIN Q 12 [facility] 12 hour 00 H PRN l diclofenac 2021-0 Yes [id number] YULIA 1 PA [facility] (FLECTOR) 08-[address] 1.3 % patch 00:00: SKIN Q 12 [facility] 12 hour 00 H PRN l diclofenac 2021-0 Yes [id number] YULIA 1 PA [facility] (FLECTOR) 08-[address] 1.3 % patch 00:00: SKIN Q 12 [facility] 12 hour 00 H PRN l diclofenac 2021-0 Yes [id number] YULIA 1 PA [facility] (FLECTOR) 08-[address] 1.3 % patch 00:00: SKIN Q 12 [facility] 12 hour 00 H PRN l diclofenac 2021-0 Yes [id number] YULIA 1 PA [facility] (FLECTOR) 08-[address] 1.3 % patch 00:00: SKIN Q 12 [facility] 12 hour 00 H PRN l diclofenac 2021-0 Yes [id number] YULIA 1 PA [facility] (FLECTOR) 08-[address] 1.3 % patch 00:00: SKIN Q 12 [facility] 12 hour 00 H PRN l diclofenac 2021-0 Yes [id number] YULIA 1 PA [facility] (FLECTOR) 08-[address] 1.3 % patch 00:00: SKIN Q 12 [facility] 12 hour 00 H PRN l diclofenac 2021-0 Yes [id number] YULIA 1 PA [facility] (FLECTOR) 08-[address] 1.3 % patch 00:00: SKIN Q 12 [facility] 12 hour 00 H PRN l [place] 750 2020-0 Yes Q.5D Take by [facility] film 10-[address] 00:00: (two) [facility]osp[facility] 00 times a l day. [place] 750 2020-0 Yes Q.5D Take by [facility] film 10-[address] 00:00: (two) [facility]osp[facility] 00 times a l day. [place] 750 2020-0 Yes Q.5D Take by [facility] film 10-[address] 00:00: (two) [facility]osp[facility] 00 times a l day. [place] 750 2020-0 Yes Q.5D Take by [facility] film 8-[address] 00:00: (two) [facility]osp[facility] 00 times a l day. [place] 750 2020-0 Yes Q.5D Take by [facility] film 8-[address] 00:00: (two) [facility]osp[facility] 00 times a l day. [place] 750 2020-0 Yes Q.5D Take by [facility] film 8-[address] 00:00: (two) [facility]osp[facility] 00 times a l day. [place] 750 2020-0 Yes Q.5D Take by [facility] film 8-[address] 00:00: (two) [facility]osp[facility] 00 times a l day. [place] 750 2020-0 Yes Q.5D Take by [facility] film 8-[address] 00:00: (two) [facility]osp[facility] 00 times a l day. [place] 750 2020-0 Yes Q.5D Take by [facility] film 8-[address] 00:00: (two) [facility]osp[facility] 00 times a l day. [place] 750 2020-0 Yes Q.5D Take by [facility] film 8-[address] 00:00: (two) [facility]osp[facility] 00 times a l day. [place] 750 2020-0 Yes Q.5D Take by [facility] film 8-[address] 00:00: (two) [facility]osp[facility] 00 times a l day. [place] 750 2020-0 Yes Q.5D Take by [facility] film 8-[address] 00:00: (two) [facility]ospita 00 times a l day. Omnipaque 2018-0 No 100 mL, [facility] 300 4-02 Route: IV, l 22:09: Dosing [place] 00 Weight 113.773, kg, ONCE, Start date: 06/03/17 17:09:00 CDT, Stop date: 06/03/17 17:09:00 CDT Omnipaque 2018-0 No 100 mL, [facility] 300 4-02 Route: IV, l 22:09: Dosing [place] 00 Weight 113.773, kg, ONCE, Start date: 06/03/17 17:09:00 CDT, Stop date: 06/03/17 17:09:00 CDT Omnipaque No 100 mL, [facility] 300 4-02 Route: IV, l 22:09: Dosing [place] 00 Weight 113.773, kg, ONCE, Start date: [...] mg Ketorolac No 4 days [facility] 3-02 l 21:26: MEDICATION Gabriel 00 WASTE Product Size: 30 mg Product Wasted: ___ mg Acetaminoph No Notes: Keegan nicholas en 10 MG/ML 05-03 Infuse l Injectable 21:26: over 15 Herm gosia Solution 00 minutes Do not exceed 4gm/day of acetaminop hen MEDICATION WASTE Product Size: 1000 mg Product Wasted: ___ mg Ketorolac 2018-0 No 4 days [facility] 05-03 l 21:26: MEDICATION Gabriel WASTE Product Size: 30 mg Product Wasted: ___ mg Acetaminoph No Notes: Keegan nicholas en 10 MG/ML 05-03 Infuse l Injectable 21:26: over 15 Herm gosia Solution 00 minutes Do not exceed 4gm/day of acetaminop hen MEDICATION WASTE Product Size: 1000 mg Product Wasted: ___ mg Ketorolac 2017-0 No 4 days [facility] 05-03 l 21:26: MEDICATION Gabriel WASTE Product Size: 30 mg Product Wasted: ___ mg acetaminoph No Route: IV, [facility]oria en (ANES) 05-03 Drug form: l 21:22: INJ, ONCE, Gabriel Stop date: 05/03/17 15:22:00 [employer]ES SUPERVISOR morphine 2017-0 No Route: IV, Mem oria Sulfate 3 Drug form: l (ANES) 21:22: INJ, ONCE, Cailin nn Stop date: 05/03/17 15:22:00 [employer] SUPERVISOR acetaminoph 2017-0 No Route: IV, [facility] en (ANES) 3- Drug form: l 21:22: INJ, ONCE, Gabriel Stop date: 05/03/17 15:22:00 SOFTLINES SUPERVISOR morphine 2017-0 No Route: IV, [facility] Sulfate 3- Drug form: l (ANES) 21:22: INJ, ONCE, Cailin nn Stop date: 05/03/17 15:22:00 [employer]LINES SUPERVISOR acetaminoph 2017-0 No Route: IV, [facility] en (ANES) 3- Drug form: l 21:22: INJ, ONCE, [place] Stop date: 05/03/17 15:22:00 SOFTLINES SUPERVISOR morphine 2017-0 No Route: IV, [facility] Sulfate 3 Drug form: l (ANES) 21:22: INJ, ONCE, Cailin Stop date: 05/03/17 15:22:00 SOFTLINES SUPERVISOR ceFAZolin 2018-0 No Route: IV, Me moria (ANES) 3 Drug form: l 21:02: INJ, ONCE, Stop date: 05/03/17 15:02:00 SOFTLINES SUPERVISOR ondansetron 2018-0 No Route: IV, [facility] (ANES) 3 Drug form: l 21:02: INJ, ONCE, Stop date: 05/03/17 15:02:00 [employer]LINES SUPERVISOR propofol 2018-0 No Route: IV, Mem oria (ANES) 05-03 Drug form: l 21:02: INJ, ONCE, Stop date: 05/03/17 15:02:00 SO[employer]LINES SUPERVISOR fentaNYL 2018-0 No Route: IV, Mem [facility] (ANES) 05-03 Drug form: l 21:02: INJ, ONCE, Stop date: 05/03/17 15:02:00 SOFTLINES SUPERVISOR ceFAZolin 2018-0 No Route: IV, Me moria (ANES) 05-03 Drug form: l 21:02: INJ, ONCE, Stop date: 05/03/17 15:02:00 SO[employer]LINES SUPERVISOR ondansetron 2018-0 No Route: IV, [facility] (ANES) 3 Drug form: l 21:02: INJ, ONCE, Stop date: 05/03/17 15:02:00 SO[employer]LINES SUPERVISOR propofol 2018-0 No Route: IV, Mem [facility] (ANES) 3 Drug form: l 21:02: INJ, ONCE, Stop date: 05/03/17 15:02:00 SOFTLINES SUPERVISOR fentaNYL 2018-0 No Route: IV, Mem [facility] (ANES) 3 Drug form: l 21:02: INJ, ONCE, Stop date: 05/03/17 15:02:00 SOFTLINES SUPERVISOR ceFAZolin 2018-0 No Route: IV, Me moria (ANES) 3 Drug form: l 21:02: INJ, ONCE, Stop date: 05/03/17 15:02:00 SO[employer]LINES SUPERVISOR ondansetron 2018-0 No Route: IV, [facility] (ANES) 3- Drug form: l 21:02: INJ, ONCE, [place] Stop date: 05/03/17 15:02:00 SO[employer]LINES SUPERVISOR propofol 2018-0 No Route: IV, Mem o[facility] (ANES) 3- Drug form: l 21:02: INJ, ONCE, Gabriel 00 Stop date: 05/03/17 15:02:00 SOFTLINES SUPERVISOR fentaNYL 2018-0 No Route: IV, [facility] (ANES) 3 Drug form: l 21:02: INJ, ONCE, [place] Stop date: 05/03/17 15:02:00 [employer] SUPERVISOR midazolam 2018-0 No Route: IV, Me moria (ANES) 3- Drug form: l 20:57: SOLN, [place] 00 ONCE, Stop date: 05/03/17 14:57:00 [employer]ES SUPERVISOR midazolam 2018-0 No Route: IV, Me moria (ANES) 3 Drug form: l 20:57: SOLN, [place] 00 ONCE, Stop date: 05/03/17 14:57:00 [employer]LINES SUPERVISOR midazolam 2018-0 No Route: IV, Me moria (ANES) 3- Drug form: l 20:57: SOLN, Gabriel 00 ONCE, Stop date: 05/03/17 14:57:00 SO[employer]LINES SUPERVISOR Lactated 2018-0 No Route: IV, [facility] o[facility] Ringers 3-02 Total l Injection 20:15: Volume: Cailin nn IV (ANES) 00 1,000, 1000 mL Start date: 05/03/17 14:15:00 [employer]LINES SUPERVISOR, Stop date: 05/03/17 15:15:00 [employer]LINES SUPERVISOR Lactated 2018-0 No Route: IV, Mem o[facility] Ringers 3-02 Total l Injection 20:15: Volume: Cailin nn IV (ANES) 00 1,000, 1000 mL Start date: 05/03/17 14:15:00 SOFTLINES SUPERVISOR, Stop date: 05/03/17 15:15:00 SOFTLINES SUPERVISOR Lactated 2018-0 No Route: IV, Mem oria Ringers 3-02 Total l Injection 20:15: Volume: Cailin nn IV (ANES) 00 1,000, 1000 mL Start date: 05/03/17 14:15:00 SOFTLINES SUPERVISOR, Stop date: 05/03/17 15:15:00 [employer]LINES SUPERVISOR Calcium 2018-0 No 1,000 mL, [facility] Chloride 3-02 Rate: 25 l 0.0014 18:59: ml/hr, Gabriel MEQ/ML / 00 Infuse Potassium over: 40 Chloride hr, Route: 0.004 IV, Dosing MEQ/ML / Weight Sodium 113.773 Chloride kg, Total 0.103 Volume: MEQ/ML / 1,000, Sodium Start Lactate date: 0.028 18 MEQ/ML 12:59:00 Injectable SO[employer] SUPERVISOR, Stop Solution date: 05/03/17 20:00:00 SOFTLINES SUPERVISOR, 2.41, m2 Calcium 2018-0 No 1,000 mL, [facility] Chloride 05-03 Rate: 25 l 0.0014 18:59: ml/hr, [place] MEQ/ML / 00 Infuse Potassium over: 40 Chloride hr, Route: 0.004 IV, Dosing MEQ/ML / Weight Sodium 113.773 Chloride kg, Total 0.103 Volume: MEQ/ML / 1,000, Sodium Start Lactate date: 0.028 18 MEQ/ML 12:59:00 Injectable SO[employer]ES SUPERVISOR, Stop Solution date: 05/03/17 20:00:00 SOFTLINES SUPERVISOR, 2.41, m2 Calcium 2018-0 No 1,000 mL, [facility] Chloride 05-03 Rate: 25 l 0.0014 18:59: ml/hr, Gabriel MEQ/ML / 00 Infuse Potassium over: 40 Chloride hr, Route: 0.004 IV, Dosing MEQ/ML / Weight Sodium 113.773 Chloride kg, Total 0.103 Volume: MEQ/ML / 1,000, Sodium Start Lactate date: 0.028 18 MEQ/ML 12:59:00 Injectable SO[employer] SUPERVISOR, Stop Solution date: 05/03/17 20:00:00 SOFTLINES SUPERVISOR, 2.41, m2 Acetaminoph Yes 1 tab, PO, [...] Chloride 2-23 1000 l 0.154 00:02: ml/hr, Gabriel MEQ/ML 00 Infuse Injectable Over: 1 Solution [...] Chloride 2-23 1000 l 0.154 00:02: ml/hr, Gabriel MEQ/ML 00 Infuse Injectable Over: 1 Solution [...] Chloride 2-23 1000 l 0.154 00:02: ml/hr, [place] MEQ/ML 00 Infuse Injectable Over: 1 Solution hr, Route: IV, 1,000, Drug form: INJ, ONCE, Priority: STAT, Dosing Weight 124.091 kg, Start date: 02/22/15 18:02:00, Duration: 1 doses or times, Stop date: 02/22/15 18:02:00 Saline 2014-03 No Notes: [facility] Flush 0.9% 2-23 (Same as: l 00:02: BD [place] 00 Posiflush) vancomycin 2014-03 Yes 1 gm, [...] 0.9% 2-18 Same as: l 03:00: BD [place] 00 Posiflush Sterile Saline 2014-03 No Notes: [facility] Flush 0.9% 2-18 Same as: l 03:00: BD Gabriel 00 Posiflush Sterile Saline 2014-03 No Notes: [facility] Flush 0.9% 2-18 Same as: l 03:00: BD [place] 00 Posiflush Sterile Lubricant 2014-03 No 1 drp, Memori a Eye Drops 2-17 Route: l 22:40: Each [place] 00 Affected Eye, QID, Drug form: SOLN, PRN Dry Eyes, Start date: 02/17/15 16:40:00, Duration: 30 day, Stop date: 03/19/15 16:39:00 Lubricant 2014-03 No 1 drp, [facility] a Eye Drops 2-17 Route: l 22:40: Each Gabriel 00 Affected Eye, QID, Drug form: SOLN, PRN Dry Eyes, Start date: 02/17/15 16:40:00, Duration: 30 day, Stop date: 03/19/15 16:39:00 Lubricant 2014-03 No 1 drp, [facility] a Eye Drops 04-20 Route: l 22:40: Each [place] 00 Affected Eye, QID, Drug form: SOLN, PRN Dry Eyes, Start date: 02/17/15 16:40:00, Duration: 30 day, Stop date: 03/19/15 16:39:00 Hydromorpho 2014-03 No 0.5 mg, Mem oria ne 04-20 Route: l 20:58: IVP, Gabriel 00 Q5Min, Dosing Weight 120.483, kg, PRN Pain Score 7-10, Start date: 02/17/15 14:58:00, Duration: 4 doses or times, Stop date: Limited # of times Fentanyl 2014-03 No 50 Memoria 04-20 microgram, l 20:58: Route: [place] 00 IVP, Q5Min, Dosing Weight 120.483, kg, PRN Pain Score 7-10, Start date: 02/17/15 14:58:00, Duration: 2 doses or times, Stop date: Limited # of times Acetaminoph 2014-03 No 1,000 mg, M emoria en 04-20 Route: l 20:58: IVPB, Drug [place] 00 form: INJ, ONCE, Dosing Weight 120.483, kg, PRN Pain Score 1-3, Start date: 02/17/15 14:58:00, Duration: 1 doses or times, Stop date: Limited # of times Oxycodone 2014-03 No 5 mg, Memoria 04-20 Route: PO, l 20:58: Drug form: [place] 00 TAB, Q4H, Dosing Weight 120.483, kg, PRN Pain Score 4-6, Start date: 02/17/15 14:58:00, Duration: 30 day, Stop date: 03/19/15 14:57:00 Flumazenil 2014-03 No 0.2 mg, Keegan nicholas 04-20 Route: l 20:58: IVP, PRN, Gabriel 00 Dosing Weight 120.483, kg, PRN Benzodiaze pine Reversal, Initial dose, Start date: 02/17/15 14:58:00, Duration: 30 day, Stop date: 03/19/15 14:57:00 Naloxone 2014-03 No 0.04 mg, Memor ia 217 Route: l 20:58: IVP, [place] 00 Q2MIN, Dosing Weight 120.483, kg, PRN Narcotic Reversal, Start date: 02/17/15 14:58:00, Duration: 8 doses or times, Stop date: Limited # of times Meperidine 2014-03 No 12.5 mg, Mem oria 217 Route: l 20:58: IVP, [place] 00 Q30Min, Dosing Weight 120.483, kg, PRN Other -See Comment, For shivering, Start date: 02/17/15 14:58:00, Duration: 2 doses or times, Stop date: Limited # of times Ondansetron 2014-03 No 4 mg, [facility] ia 04-20 Route: l 20:58: IVP, ONCE, Dosing Weight 120.483, kg, PRN Nausea & Vomiting, Start date: 02/17/15 14:58:00 Hydromorpho 2014-03 No 0.5 mg, Mem oria ne 04-20 Route: l 20:58: IVP, Gabriel 00 Q5Min, Dosing Weight 120.483, kg, PRN Pain Score 7-10, Start date: 02/17/15 14:58:00, Duration: 4 doses or times, Stop date: Limited # of times Fentanyl 2014-03 No 50 Memoria 2- microgram, l 20:58: Route: IVP, Q5Min, Dosing Weight 120.483, kg, PRN Pain Score 7-10, Start date: 02/17/15 14:58:00, Duration: 2 doses or times, Stop date: Limited # of times Acetaminoph 2014-03 No 1,000 mg, M emoria en 04-20 Route: l 20:58: IVPB, Drug form: INJ, ONCE, Dosing Weight 120.483, kg, [...] Flumazenil 2014-03 No 0.2 mg, Keegan nicholas 2-17 Route: l 20:58: IVP, PRN, [place] 00 Dosing Weight 120.483, kg, PRN Benzodiaze pine Reversal, Initial dose, Start date: 02/17/15 14:58:00, Duration: 30 day, Stop date: 03/19/15 14:57:00 Naloxone 2014-03 No 0.04 mg, Memor ia 2-17 Route: l 20:58: IVP, [place] 00 Q2MIN, Dosing Weight 120.483, kg, PRN [...] ia 2-17 Route: l 20:58: IVP, ONCE, [place] 00 Dosing Weight 120.483, kg, PRN Nausea & Vomiting, Start date: 02/17/15 14:58:00 Hydromorpho 2014-03 No 0.5 mg, Mem oria ne 2-17 Route: l 20:58: IVP, Gabriel 00 Q5Min, Dosing Weight 120.483, kg, PRN Pain Score 7-10, Start date: 02/17/15 14:58:00, Duration: 4 doses or times, Stop date: Limited # of times Fentanyl 2014-03 No 50 Memoria 2-17 microgram, l 20:58: Route: [place] 00 IVP, Q5Min, Dosing Weight 120.483, kg, PRN Pain Score 7-10, Start date: 02/17/15 14:58:00, Duration: 2 doses or times, Stop date: Limited # of times Acetaminoph 2014-03 No 1,000 mg, M emoria en 04-20 Route: l 20:58: IVPB, Drug Gabriel 00 form: INJ, ONCE, Dosing Weight 120.483, kg, PRN Pain Score 1-3, Start date: 02/17/15 14:58:00, Duration: 1 doses or times, Stop date: Limited # of times Oxycodone 2014-03 No 5 mg, Memoria 04-20 Route: PO, l 20:58: Drug form: Gabriel 00 TAB, Q4H, Dosing Weight 120.483, kg, PRN Pain Score 4-6, Start date: 02/17/15 14:58:00, Duration: 30 day, Stop date: 03/19/15 14:57:00 Flumazenil 2014-03 No 0.2 mg, Keegan nicholas 04-20 Route: l 20:58: IVP, PRN, [place] 00 Dosing Weight 120.483, kg, PRN Benzodiaze pine Reversal, Initial dose, Start date: 02/17/15 14:58:00, Duration: 30 day, Stop date: 03/19/15 14:57:00 Naloxone 2014-03 No 0.04 mg, Memor ia 04-20 Route: l 20:58: IVP, [place] 00 Q2MIN, Dosing Weight 120.483, kg, PRN Narcotic Reversal, Start date: 02/17/15 14:58:00, Duration: 8 doses or times, Stop date: Limited # of times Meperidine 2014-03 No 12.5 mg, Mem oria 04-20 Route: l 20:58: IVP, [place] 00 Q30Min, Dosing Weight 120.483, kg, PRN Other -See Comment, For shivering, Start date: 02/17/15 14:58:00, Duration: 2 doses or times, Stop date: Limited # of times Ondansetron 2014-03 No 4 mg, Memor ia 04-20 Route: l 20:58: IVP, ONCE, Gabriel 00 Dosing Weight 120.483, kg, PRN Nausea & Vomiting, Start date: 02/17/15 14:58:00 Saline 2014-03 No Notes: [facility]oria Flush 0.9% 2-17 Same as: l 19:33: BD Gabriel 00 Posiflush Sterile Acetaminoph 2014-03 No Notes: Keegan nicholas en 325 MG / 2-17 (Same as: l Hydrocodone 19:33: [place] Cailin nn Bitartrate 00 325/5) Do 5 MG Oral not exceed Tablet 4gm/day of acetaminop hen. Saline 2014-03 No Notes: [facility]oria Flush 0.9% 2-17 Same as: l 19:33: BD Gabriel 00 Posiflush Sterile Acetaminoph 2014-03 No Notes: Keegan nicholas en 325 MG / 2-17 (Same as: l Hydrocodone 19:33: [place] Cailin nn Bitartrate 00 325/5) Do 5 MG Oral not exceed Tablet 4gm/day of acetaminop hen. Saline 2014-03 No Notes: Memoria Flush 0.9% 2-17 Same as: l 19:33: BD Gabriel 00 Posiflush Sterile Acetaminoph 2014-03 No Notes: Keegan nicholas en 325 MG / 2-17 (Same as: l Hydrocodone 19:33: [place] Cailin nn Bitartrate 00 325/5) Do 5 MG Oral not exceed Tablet 4gm/day of acetaminop hen. Dilaudid 2014-03 No Notes: Memoria 2-17 (Same as: l 18:54: Dilaudid) Gabriel 00 Ativan 2014-03 No Notes: Memoria 2-17 (Same as: l 18:54: Ativan) Dilaudid 2014-03 No Notes: Memoria 2-17 (Same as: l 18:54: Dilaudid) [place] 00 Ativan 2014-03 No Notes: Memoria 2-17 (Same as: l 18:54: Ativan) [place] 00 Dilaudid 2014-03 No Notes: Memoria 2-17 (Same as: l 18:54: Dilaudid) Ativan 2014-03 No Notes: Memoria 2-17 (Same as: l 18:54: Ativan) Gabriel 00 Calcium 2014-03 No 1,000 mL, Memor ia Chloride 04-20 Rate: 25 l 0.0014 17:49: ml/hr, Gabriel [...] 2-17 Rate: 25 l 0.0014 17:49: ml/hr, [place] MEQ/ML / 00 Infuse Potassium over: 40 [...] / 1,000, Sodium Start Lactate date: 0.028 15 MEQ/ML 11:49:00, Injectable Duration: Solution 30 day, Stop date: 03/19/15 11:48:00 hydrochloro 2014-03 No Notes: Keegan nicholas thiazide 25 2-17 (Same as: l mg oral 15:00: Hydrodiuri Herm gosia tablet 00 l) With food. meloxicam 2014-03 No Notes: Memori a 2-17 (Same as: l 15:00: Mobic) Gabriel 00 Hydrochloro 2014-03 No 1 tab, Keegan nicholas [...] as: l 15:00: Cozaar) vancomycin 2014-03 No 2000 mg: Me moria [...] (Same as: l Tablet 19:00: Neurontin) Cailin gabapentin 2014-03 No Notes: Memor ia 600 MG Oral 2-16 (Same as: l Tablet 19:00: Neurontin) Cail[place] gabapentin 2014-03 No Notes: Memor ia 600 MG Oral 2-16 (Same as: l Tablet 19:00: Neurontin) Cailin Insulin, 2014-03 No Notes: Memoria Aspart, 2-16 Roll in l Human 18:58: palms of [place] 00 hands gently; Do not shake vigorously . (Same as: NovoLOG) "single patient use only" Stable for 28 days at room temperatur e. Expires in days from ____Date Dextrose 2014-03 No 12.5 gm, Memor ia 50% Syringe 2-16 25 mL, l 18:58: Route: [place] 00 IVP, Drug Form: INJ, Dosing Weight 114.091, kg, PRN, PRN Blood Glucose Results, Start date: 02/16/15 12:58:00, Duration: 30 day, Stop date: 03/18/15 12:57:00 Glucagon 2014-03 No 1 mg, Memoria 2-16 Route: IM, l 18:58: Drug form: [place] 00 PDR/INJ, PRN, Dosing Weight 114.091, kg, [...] Syringe 2-16 25 mL, l 18:58: Route: [place] 00 IVP, Drug Form: INJ, Dosing Weight 114.091, kg, PRN, PRN Blood Glucose Results, Start date: 02/16/15 12:58:00, Duration: 30 day, Stop date: 03/18/15 12:57:00 Glucagon 2014-03 No 1 mg, Memoria 2-16 Route: IM, l 18:58: Drug form: [place] 00 PDR/INJ, PRN, Dosing Weight 114.091, kg, [...] Syringe 2-16 25 mL, l 18:58: Route: [place] 00 IVP, Drug Form: INJ, Dosing Weight 114.091, kg, PRN, PRN Blood Glucose Results, Start date: 02/16/15 12:58:00, Duration: 30 day, Stop date: 03/18/15 12:57:00 Glucagon 2014-03 No 1 mg, Memoria 2-16 Route: IM, l 18:58: Drug form: [place] 00 PDR/INJ, PRN, Dosing Weight 114.091, kg, PRN Blood Glucose Results, Start date: 02/16/15 12:58:00, Duration: 30 day, Stop date: 03/18/15 12:57:00 Labetalol 2014-03 No 20 mg, 4 Keegan nicholas 2-16 mL, Route: l 18:46: IVP, Drug [place] 00 form: INJ, Q6H, Dosing Weight 114.091, kg, PRN Hypertensi on, Start date: 02/16/15 12:46:00, Duration: 30 day, Stop date: 03/18/15 12:45:00 Labetalol 2014-03 No 20 mg, 4 Keegan nicholas 2-16 mL, Route: l 18:46: IVP, Drug [place] 00 form: INJ, Q6H, Dosing Weight 114.091, kg, PRN Hypertensi on, Start date: 02/16/15 12:46:00, Duration: 30 day, Stop date: 03/18/15 12:45:00 Labetalol 2014-03 No 20 mg, 4 Keegan nicholas 2-16 mL, Route: l 18:46: IVP, Drug [place] 00 form: INJ, Q6H, Dosing Weight 114.091, kg, PRN Hypertensi on, Start date: 02/16/15 12:46:00, Duration: 30 day, Stop date: 03/18/15 12:45:00 Morphine 2014-03 No Notes: Memoria 2-16 (Same l 18:45: as:MORPhin Gabriel 00 e Sulfate) Tylenol 2014-03 No Notes: Do Memor ia 2-16 not exceed l 18:45: 4 gm/day. Gabriel 00 (Same as: Tylenol) Morphine 2014-03 No Notes: Memoria 2-16 (Same l 18:45: as:MORPhin [place] 00 e Sulfate) Tylenol 2014-03 No Notes: Do Memor ia 2-16 not exceed l 18:45: 4 gm/day. [place] 00 (Same as: Tylenol) Morphine 2014-03 No Notes: Memoria 2-16 (Same l 18:45: as:MORPhin [place] 00 e Sulfate) Tylenol 2014-03 No Notes: Do Memor ia 2-16 not exceed l 18:45: 4 gm/day. [place] 00 (Same as: Tylenol) amLODIPine 2014-03 Yes [...] tab, PO, l tablet 17:30: Daily, 0 [place] 00 Refill(s) 120 ACTUAT 2014-03 Yes 1 [...] tablet 17:30: Daily, 0 Gabriel 00 Refill(s) 120 ACTUAT 2014-03 Yes 1 spray, Mem oria Fluticasone 2-16 NASAL, l propionate 17:30: Daily, 0 [place] 0.05 00 Refill(s) MG/ACTUAT Nasal Inhaler gabapentin 2014-03 Yes 600 mg = 1 M emoria 600 MG Oral 2-16 tab, PO, l Tablet 17:30: TID, 0 [place] 00 Refill(s) amLODIPine 2014-03 Yes 10 mg = 1 Me moria 10 mg oral 2-16 tab, PO, l tablet 17:30: Daily, 0 [place] 00 Refill(s) meloxicam 2014-03 Yes 15 mg = 1 Mem oria 15 mg oral 2-16 tab, PO, l tablet 17:30: Daily, 0 [place] 00 Refill(s) Hydrochloro 2014-03 Yes 1 tab, [...] tablet 17:30: Daily, 0 [place] 00 Refill(s) 120 ACTUAT 2014-03 Yes 1 [...] 2-16 Same as: l Flush 17:19: BD [place] 00 Posiflush Sterile BD Normal 2014-03 No Notes: Memori a Saline 2-16 Same as: l Flush 17:19: BD [place] 00 Posiflush Sterile BD Normal 2014-03 No Notes: Memori a Saline 2-16 Same as: l Flush 17:19: BD [place] 00 Posiflush Sterile Lisinopril- Yes Mat Unknown Memoria Hydrochloro 7-31 [...] -Acetaminop 7-31 Daniel l hen 02:07: Baclofen 2014- Yes Mat Unknown Mem oria 7-31 Daniel l 02:07: Amlodipine 2014-0 Yes Mat Unknown M emoria Besylate 7-31 [...] -Acetaminop 7-31 Daniel l hen 02:07: Baclofen 2014- Yes Mat Unknown Mem oria 7-31 Daniel l 02:07: Amlodipine 2014- Yes Mat Unknown M emoria Besylate 7-31 [...] 7-30 Daniel applicatio l 00:00: n to affected area Clindamycin Yes Mat one tab Memoria 300 mg 14 d 7-30 Daniel l 00:00: Cipro Yes Mat 1 tablet Memor ia 7-30 Daniel l 00:00: Silvadene 2015-0 Yes Mat 1 Memor ia 7-30 Daniel applicatio l 00:00: n to [place] 00 affected area Clindamycin 2015-0 Yes Mat one tab Mem[facility] 300 mg 14 d 7-30 Daniel l 00:00: [place] 00 Cipro 2015-0 Yes Mat 1 tablet Memor ia 7-30 Daniel l 00:00: [place] 00 Silvadene 2015-0 Yes Mat 1 Memor ia 7-30 Daniel applicatio l 00:00: n to [place] 00 affected area Clindamycin 2015-0 Yes Mat one tab Memoria 300 mg 14 d 7-30 Daniel l 00:00: [place] 00 Cipro 2015-0 Yes Mat 1 tablet Memor ia 7-30 Daniel l 00:00: [place] 00 Silvadene 2015-0 Yes Mat 1 Memor ia 7-30 Daniel applicatio l 00:00: n to affected area Clindamycin 2015-0 Yes Mat one tab Mem[facility] 300 mg 14 d 7-30 Daniel l 00:00: [place] 00 Cipro 2015-0 Yes Mat 1 tablet Memor ia 7-30 Daniel l 00:00: [place] 00 Silvadene 2015-0 Yes Mat 1 Memor ia 7-30 Daniel applicatio l 00:00: n to affected area Clindamycin 2015-0 Yes Mat one tab Memoria 300 mg 14 d 7-30 Daniel l 00:00: [place] 00 Cipro 2015-0 Yes Mat 1 tablet Memor ia 7-30 Daniel l 00:00: [place] 00 Silvadene 2015-0 Yes Mat 1 Memor ia 7-30 Daniel applicatio l 00:00: n to [place] 00 affected area Clindamycin 2015-0 Yes Mat one tab Mem[facility] 300 mg 14 d 7-30 Daniel l 00:00: [place] 00 Cipro 2015-0 Yes Mat 1 tablet Memor ia 7-30 Daniel l 00:00: [place] 00 Silvadene 2015-0 Yes Mat 1 Memor ia 7-30 Daniel applicatio l 00:00: n to [place] 00 affected area Clindamycin 2015-0 Yes Mat one tab Memoria 300 mg 14 d 7-30 Daniel l 00:00: [place] 00 Cipro 2015-0 Yes Mat 1 tablet Memor ia 7-30 Daniel l 00:00: [place] 00 Silvadene 2015-0 Yes Mat 1 Memor ia 7-30 Daniel applicatio l 00:00: n to affected area Clindamycin 2015-0 Yes Mat one tab [facility] 300 mg 14 d 7-30 Daniel l 00:00: [place] 00 Cipro 2015-0 Yes Mat 1 tablet Memor ia 7-30 Daniel l 00:00: Silvadene 2015-0 Yes Mat 1 Memor ia 7-30 Daniel applicatio l 00:00: n to [place] 00 affected area Clindamycin 2015-0 Yes Mat one tab Memoria 300 mg 14 d 7-30 Daniel l 00:00: Cipro 2015-0 Yes Mat 1 tablet Memor ia 7-30 Daniel l 00:00: Silvadene 2015-0 Yes Mat 1 Memor ia 7-30 Daniel applicatio l 00:00: n to affected area Clindamycin 2015-0 Yes Mat one tab Memoria 300 mg 14 d 7-30 Daniel l 00:00: [place] 00 Cipro 2015-0 Yes Mat 1 tablet Memor ia 7-30 Daniel l 00:00: [place] 00 Silvadene 2015-0 Yes Mat 1 Memor ia 7-30 Daniel applicatio l 00:00: n to affected area Clindamycin 2015-0 Yes Mat one tab Memoria 300 mg 14 d 7-30 Daniel l 00:00: [place] 00 Cipro 2015-0 Yes Mat 1 tablet Memor ia 7-30 Daniel l 00:00: Silvadene 2015-0 Yes Mat 1 Memor ia 7-30 Daniel applicatio l 00:00: n to affected area Clindamycin 2015-0 Yes Mat one tab Memoria 300 mg 14 d 7-30 Daniel l 00:00: Cipro 2015-0 Yes Mat 1 tablet Memor ia 7-30 Daniel l 00:00: Glimepiride 2014-0 Yes Mat Unknown Memoria 3-05 Daniel l 05:10: [place] 03 Gabapentin 2014-0 Yes Mat Unknown M emoria 3-05 Daniel l 05:10: Amlodipine 2013-0 Yes Mat Unknown M emoria Besylate 3-05 Daniel l 05:10: [place] Hydrocodone Yes Mat Unknown Memoria -Acetaminop 3-05 Daniel l hen 05:10: [place] 03 Baclofen Yes Mat Unknown Mem oria 3-05 Daniel l 05:10: [place] 03 Glimepiride Yes Mat Unknown Memoria 3-05 Daniel l 05:10: [place] 03 Gabapentin Yes Mat Unknown M emoria 3-05 Daniel l 05:10: [place] 03 Amlodipine Yes Mat Unknown M emoria Besylate 3-05 Daniel l 05:10: [place] 03 Hydrocodone Yes Mat Unknown Memoria -Acetaminop 3-05 Daniel l hen 05:10: [place] 03 Baclofen Yes Mat Unknown Mem oria 3-05 Daniel l 05:10: [place] 03 Glimepiride Yes Mat Unknown Memoria 3-05 Daniel l 05:10: [place] 03 Gabapentin Yes Mat Unknown M emoria 3-05 Daniel l 05:10: [place] 03 Amlodipine Yes Mat Unknown M emoria Besylate 3-05 Daniel l 05:10: [place] 03 Hydrocodone Yes Mat Unknown Memoria -Acetaminop 3-05 Daniel l hen 05:10: [place] 03 Baclofen Yes Mat Unknown Mem oria 3-05 Daniel l 05:10: [place] 03 Glimepiride Yes Mat Unknown Memoria 3-05 Daniel l 05:10: [place] 03 Gabapentin Yes Mat Unknown M emoria 3-05 Daniel l 05:10: [place] 03 Amlodipine Yes Mat Unknown M emoria Besylate 3-05 Daniel l 05:10: [place] 03 Hydrocodone Yes Mat Unknown Memoria -Acetaminop 3-05 Daniel l hen 05:10: [place] 03 Baclofen Yes Mat Unknown Mem oria 3-05 Daniel l 05:10: [place] 03 Glimepiride Yes Mat Unknown Memoria 3-05 Daniel l 05:10: [place] 03 Gabapentin Yes Mat Unknown M emoria 3-05 Daniel l 05:10: [place] 03 Amlodipine Yes Mat Unknown M emoria Besylate 3-05 Daniel l 05:10: [place] 03 Hydrocodone Yes Mat Unknown Memoria -Acetaminop 3-05 Daniel l hen 05:10: [place] 03 Baclofen Yes Mat Unknown Mem oria 3-05 Daniel l 05:10: [place] 03 Glimepiride Yes Mat Unknown Memoria 3-05 Daniel l 05:10: [place] 03 Gabapentin Yes Mat Unknown M emoria 3-05 Daniel l 05:10: [place] 03 Amlodipine Yes Mat Unknown M emoria Besylate 3-05 Daniel l 05:10: [place] 03 Hydrocodone Yes Mat Unknown Memoria -Acetaminop 3-05 Daniel l hen 05:10: [place] 03 Baclofen Yes Mat Unknown Mem oria 3-05 Daniel l 05:10: [place] 03 Glimepiride Yes Mat Unknown Memoria 3-05 Daniel l 05:10: [place] 03 Gabapentin Yes Mat Unknown M emoria 3-05 Daniel l 05:10: [place] 03 Amlodipine Yes Mat Unknown M emoria Besylate 3-05 Daniel l 05:10: [place] 03 Hydrocodone Yes Mat Unknown Memoria -Acetaminop 3-05 Daniel l hen 05:10: [place] 03 Baclofen Yes Mat Unknown Mem oria 3-05 Daniel l 05:10: [place] 03 Glimepiride Yes Mat Unknown Memoria 3-05 Daniel l 05:10: [place] 03 Gabapentin Yes Mat Unknown M emoria 3-05 Daniel l 05:10: [place] 03 Amlodipine Yes Mat Unknown M emoria Besylate 3-05 Daniel l 05:10: [place] 03 Hydrocodone Yes Mat Unknown Memoria -Acetaminop 3-05 Daniel l hen 05:10: [place] 03 Baclofen Yes Mat Unknown Mem oria 3-05 Daniel l 05:10: [place] 03 Glimepiride Yes Mat Unknown Memoria 3-05 Daniel l 05:10: [place] 03 Gabapentin Yes Mat Unknown M emoria 3-05 Daniel l 05:10: [place] 03 Amlodipine Yes Mat Unknown M emoria Besylate 3-05 Daniel l 05:10: [place] 03 Hydrocodone Yes Mat Unknown Memoria -Acetaminop 3-05 Daniel l hen 05:10: [place] 03 Baclofen Yes Mat Unknown Mem oria 3-05 Daniel l 05:10: [place] 03 Glimepiride Yes Mat Unknown Memoria 3-05 Daniel l 05:10: [place] 03 Gabapentin Yes Mat Unknown M emoria 3-05 Daniel l 05:10: [place] 03 Amlodipine Yes Mat Unknown M emoria Besylate 3-05 Daniel l 05:10: [place] 03 Hydrocodone Yes Mat Unknown Memoria -Acetaminop 3-05 Daniel l hen 05:10: [place] 03 Baclofen Yes Mat Unknown Mem oria 3-05 Daniel l 05:10: [place] 03 Glimepiride Yes Mat Unknown Memoria 3-05 Daniel l 05:10: [place] 03 Gabapentin Yes Mat Unknown M emoria 3-05 Daniel l 05:10: [place] 03 Amlodipine Yes Mat Unknown M emoria Besylate 3-05 Daniel l 05:10: [place] 03 Hydrocodone Yes Mat Unknown Memoria -Acetaminop 3-05 Daniel l hen 05:10: [place] 03 Baclofen Yes Mat Unknown Mem oria 3-05 Daniel l 05:10: [place] 03 Glimepiride Yes Mat Unknown Memoria 3-05 Daniel l 05:10: [place] 03 Gabapentin Yes Mat Unknown M emoria 3-05 Daniel l 05:10: [place] 03 Amlodipine Yes Mat Unknown M emoria Besylate 3-05 Daniel l 05:10: [place] 03 Hydrocodone Yes Mat Unknown Memoria -Acetaminop 3-05 Daniel l hen 05:10: [place] 03 Baclofen Yes Mat Unknown Mem oria 3-05 Daniel l 05:10: [place] 03 Urea Yes Mat 1 Memoria 3-04 Daniel applicatio l 00:00: n to [place] 00 affected area Bactroban 2014-0 Yes Mat 1 Memor ia 3-04 Daniel applicatio l 00:00: n to [place] 00 affected area small amount Urea 2014-0 Yes Mat 1 Memoria 3-04 Daniel applicatio l 00:00: n to [place] 00 affected area Bactroban 2014-0 Yes Mat 1 Memor ia 3-04 Daniel applicatio l 00:00: n to [place] 00 affected area small amount Urea 2014-0 Yes Mat 1 Memoria 3-04 Daniel applicatio l 00:00: n to [place] 00 affected area Bactroban 2014-0 Yes Mat 1 Memor ia 3-04 Daniel applicatio l 00:00: n to [place] affected area small amount Urea 2014-0 Yes Mat 1 Memoria 3-04 Daniel applicatio l 00:00: n to [place] 00 affected area Bactroban 2014-0 Yes Mat 1 Memor ia 3-04 Daniel applicatio l 00:00: n to [place] affected area small amount Urea 2014-0 Yes Mat 1 Memoria 3-04 Daniel applicatio l 00:00: n to [place] 00 affected area Bactroban 2014-0 Yes Mat 1 Memor ia 3-04 Daniel applicatio l 00:00: n to [place] 00 affected area small amount Urea 2014-0 Yes Mat 1 Memoria 3-04 Daniel applicatio l 00:00: n to [place] 00 affected area Bactroban 2014-0 Yes Mat 1 Memor ia 3-04 Daniel applicatio l 00:00: n to [place] 00 affected area small amount Urea 2014-0 Yes Mat 1 Memoria 3-04 Daniel applicatio l 00:00: n to [place] 00 affected area Bactroban 2014-0 Yes Mat 1 Memor ia 3-04 Daniel applicatio l 00:00: n to [place] 00 affected area small amount Urea 2014-0 Yes Mat 1 Memoria 3-04 Daniel applicatio l 00:00: n to [place] 00 affected area Bactroban 2014-0 Yes Mat 1 Memor ia 3-04 Daniel applicatio l 00:00: n to [place] 00 affected area small amount Urea 2014-0 Yes Mat 1 Memoria 3-04 Daniel applicatio l 00:00: n to [place] 00 affected area Bactroban Yes Mat 1 Memor ia 3-04 Daniel applicatio l 00:00: n to [place] 00 affected area small amount Urea Yes Mat 1 Memoria 3-04 Daniel applicatio l 00:00: n to [place] 00 affected area Bactroban Yes Mat 1 Memor ia 3-04 Daniel applicatio l 00:00: n to [place] 00 affected area small amount Urea Yes Mat 1 Memoria 3-04 Daniel applicatio l 00:00: n to [place] 00 affected area Bactroban Yes Mat 1 Memor ia 3-04 Daniel applicatio l 00:00: n to [place] 00 affected area small amount Urea Yes Mat 1 Memoria 3-04 Daniel applicatio l 00:00: n to [place] 00 affected area Bactroban Yes Mat 1 Memor ia 3-04 Daniel applicatio l 00:00: n to [place] 00 affected area small amount Acetaminoph Yes 1-2 tab, Me moria en 325 MG / 2-21 PO, Q4-6H, l Hydrocodone 08:46: Pain, # 20 [place] Bitartrate 00 tab, 0 5 MG Oral Refill(s) Tablet [[place] 5/325] baclofen Yes 1-2 tabs, M emoria [...] tab, 0 5 MG Oral Refill(s) Tablet [[place] 5/325] baclofen Yes 1-2 tabs, M emoria [...] Q4-6H, l Hydrocodone 08:46: Pain, # 20 [place] Bitartrate 00 tab, 0 5 MG Oral Refill(s) Tablet [[place] 5/325] baclofen 10 Yes 1-2 tabs, M emoria mg oral [...] a 2-21 tab, l 06:54: Route: PO, [place] 00 Drug form: TAB, ONCE, Dosing Weight 114.091, kg, Priority: STAT, Start date: 04/24/13 0:54:00, Stop date: 04/24/13 0:54:00( me as: Motrin) "Do Not Crush" Take with food. Motrin No 600 mg, 1 Memori a 2-21 tab, l 06:54: Route: PO, [place] 00 Drug form: TAB, ONCE, Dosing Weight 114.091, kg, Priority: STAT, Start date: 04/24/13 0:54:00, Stop date: 04/24/13 0:54:00( me as: Motrin) "Do Not Crush" Take with food. Motrin 0 No 600 mg, 1 Memori a 2-21 tab, l 06:54: Route: PO, [place] 00 Drug form: TAB, ONCE, Dosing Weight 114.091, kg, Priority: STAT, Start date: 04/24/13 0:54:00, Stop date: 04/24/13 0:54:00(Sa me as: Motrin) "Do Not Crush" Take with food. Valium 2014-0 No 5 mg, 1 Memoria 2-21 tab, l 06:53: Route: PO, [place] 00 Drug form: TAB, ONCE, Dosing Weight 114.091, kg, Start date: 04/24/13 0:53:00, Stop date: 04/24/13 0:53:00(Sa me as: Valium) Acetaminoph 2013-0 No 1 tab, Keegan nicholas en 325 MG / 04-24 Route: PO, l Hydrocodone 06:53: Drug Form: [place] Bitartrate 00 TAB, 5 MG Oral Dosing Tablet Weight [[place] 114.091, 5/325] kg, ONCE, Start date: 04/24/13 0:53:00, Stop date: 04/24/13 0:53:00(Sa me as: [place] 325/5) Do not exceed 4gm/day of acetaminop hen. Valium 2013-0 No 5 mg, 1 Memoria 2-21 tab, l 06:53: Route: PO, [place] 00 Drug form: TAB, ONCE, Dosing Weight 114.091, kg, Start date: 04/24/13 0:53:00, Stop date: 04/24/13 0:53:00(Sa me as: Valium) Acetaminoph 2013-0 No 1 tab, Keegan nicholas en 325 MG / 04-24 Route: PO, l Hydrocodone 06:53: Drug Form: [place] Bitartrate 00 TAB, 5 MG Oral Dosing Tablet Weight [[place] 114.091, 5/325] kg, ONCE, Start date: 04/24/13 0:53:00, Stop date: 04/24/13 0:53:00(Sa me as: [place] 325/5) Do not exceed 4gm/day of acetaminop hen. Valium 2014-0 No 5 mg, 1 Memoria 2-21 tab, l 06:53: Route: PO, [place] 00 Drug form: TAB, ONCE, Dosing Weight 114.091, kg, Start date: 04/24/13 0:53:00, Stop date: 04/24/13 0:53:00([facility] as: Valium) Acetaminoph 2014-0 No 1 tab, Keegan nicholas en 325 MG / 2-21 Route: PO, l Hydrocodone 06:53: Drug Form: [place] Bitartrate 00 TAB, 5 MG Oral Dosing Tablet Weight [[place] 114.091, 5/325] kg, ONCE, Start date: 04/24/13 0:53:00, Stop date: 04/24/13 0:53:00([facility] as: [place] 325/5) Do not exceed 4gm/day of acetaminop hen. HYDROcodone HYDROcodone No HYDROcodon -Acetaminop -Acetaminop e-Acetamin [...] HYDROcodon -Acetaminop -Acetaminop e-Acetamin hen hen ophen acetaminoph acetaminoph No acetaminop Jennifer en 500 [...] THAN 14 Y Y DAYS CONTINUOUS LY Alcohol Alcohol No Alcohol Vill[facility] e Prep Pads Prep Pads Prep Pads Family Practic e amlodipine amlodipine No amlodipine [place] 10 mg 10 mg 10 mg Family tablet Take tablet Take tablet Practic one(1) one(1) Take e Tablet by Tablet by one(1) mouth EVERY mouth EVERY Tablet by DAY DAY mouth EVERY DAY ciprofloxac ciprofloxac No ciprofloxa [place] in 500 [...] solution solution e glimepiride glimepiride No glimepirid [facility] 2 mg tablet 2 mg tablet e [...] DAY meloxicam meloxicam No 1 Q1D meloxicam [facility] 15 mg 15 mg 15 mg Family tablet Take tablet Take tablet Practic 1 tablet 1 tablet Take 1 e every day every day tablet by oral by oral every day route. route. by oral route. sulfamethox sulfamethox No sulfametho [facility] azole 800 azole 800 xazole 800 Family mg-trimetho mg-trimetho mg-trimeth Practic prim 160 mg prim 160 mg oprim 160 e tablet tablet mg tablet TRUEplus TRUEplus No TRUEplus Elli anabela Lancets 30 Lancets 30 Lancets 30 Family gauge gauge gauge Practic e Truetest Truetest No Truetest Elli anabela Test Strips Test Strips Test F amily Strips Practic e FreeStyle FreeStyle 2016- No FreeStyle [facility] Control Control 11-23 Control Famil y solution solution 00:00 solution Pr actic :00 e Zithromax Zithromax 2016- No Zithromax [facility] Z-Byron 250 Z-Byron 250 11-23 Z-Byron 250 Family mg tablet mg tablet 00:00 mg tablet Practic as directed as directed :00 as e with food with food directed with food cefuroxime cefuroxime 2016- No cefuroxime [facility] axetil 250 axetil 250 05-25 axetil 250 Family mg tablet mg tablet 00:00 mg tablet Practic :00 e SSD 1 % SSD 1 % SSD 1 % [place] ge topical topical 07-26 topical Famil y cream cream 00:00 cream Practic :00 e sucralfate sucralfate sucralfate [facility] 1 gram 1 gram 25 1 gram Family tablet tablet 00:00 tablet Practic :00 e benzonatate benzonatate 1capsul TID benzonatat [facility] 200 mg 200 mg 04-24 e(s) e 200 mg Family capsule capsule 00:00 capsule Pract ic Take 1 Take 1 :00 Take 1 e capsule 3 capsule 3 capsule 3 times a day times a day times a by oral by oral day by route as route as oral route needed. needed. as needed. fluticasone fluticasone fluticason [place] 50 50 04-24 e 50 Family mcg/actuati mcg/actuati 00:00 mcg/actuat Practic on nasal on nasal :00 ion nasal e spray,suspe spray,suspe spray,susp nsion nsion ension pantoprazol pantoprazol pantoprazo [facility] e 40 mg e 40 mg 04-24 le 40 mg Fami ly tablet,radha tablet,radha 00:00 tablet,del Practic yed release yed release :00 ayed e release vancomycin vancomycin vancomycin [facility] 1,000 mg 1,000 mg 04-24 1,000 mg Fa moraima intravenous intravenous 00:00 intravenou Practic injection injection :00 s e injection amoxicillin amoxicillin amoxicilli [facility] [phone] 10-19 n 875 Family mg-potassiu mg-potassiu 00:00 mg-potassi Practic m m :00 um e clavulanate clavulanate clavulanat 125 mg 125 mg e 125 mg tablet tablet tablet cephalexin cephalexin cephalexin [facility] 500 mg 500 mg 10-19 500 mg Family capsule capsule 00:00 capsule Pract ic :00 e clindamycin clindamycin clindamyci [facility] HCl 300 mg HCl 300 mg -18 n HCl 300 Family capsule capsule 00:00 mg capsule Pr actic :00 e diphenhydra diphenhydra diphenhydr [facility] 50 mine 50 10-19 amine 50 Fami ly mg/mL mg/mL 00:00 mg/mL Practic injection injection :00 injection e solution solution solution Immunizations Ordered Immunization Filled Immunization Date Status Commen ts Source Name Name SAURABH ARRIAZA 2021-03-29 Completed [facility] t MRNA VACCINATION 00:00:00 [facility] COVID19 2021-03-29 Completed Methodis t MRNA VACCINATION 00:00:00 [facility] COVID19 2021-03-29 Completed Methodis t MRNA VACCINATION 00:00:00 [facility] COVID19 2021-03-29 Completed Methodis t MRNA VACCINATION 00:00:00 [facility] COVID19 2021-03-29 Completed Methodis t MRNA VACCINATION 00:00:00 [facility] COVIDRaymundo 2021-03-29 Completed Methodis t MRNA VACCINATION 00:00:00 [facility] COVID-19 2021-03-29 Completed Methodis t MRNA VACCINATION 00:00:00 [facility] COVID19 2021-03-29 Completed Methodis t MRNA VACCINATION 00:00:00 [facility] COVIDRaymundo 2021-03-29 Completed Methodis t MRNA VACCINATION 00:00:00 [facility] COVIDRaymundo 2021-03-29 Completed Methodis t MRNA VACCINATION 00:00:00 [facility] COVID19 2021-03-29 Completed Methodis t MRNA VACCINATION 00:00:00 [facility] Influenza Virus 2021-03-29 Completed [facility] Vaccine 00:00:00 [facility] SARS-COV-2 COVID-19 2021-03-29 Completed Unive rsity of MODERNA 12+ YRS 00:00:00 [facility] VACCINE [place] Influenza Virus 2021-03-29 Completed Universit [facility] of Vaccine 00:00:00 [facility] SARS-COV-2 COVID-19 2021-03-29 Completed Unive rsity of MODERNA 12+ YRS 00:00:00 [facility] VACCINE [place] Influenza Virus 2021-03-29 Completed Universit [facility] of Vaccine 00:00:00 [facility] SARS-COV-2 COVID-19 2021-03-29 Completed Unive rsity of MODERNA 12+ YRS 00:00:00 [facility] VACCINE [place] Influenza Virus 2021-03-29 Completed Universit [facility] of Vaccine 00:00:00 [facility] SARS-COV-2 COVID-19 2021-03-29 Completed Unive rsity of MODERNA 12+ YRS 00:00:00 [facility] VACCINE [place] Influenza Virus 2021-03-29 Completed Universit [facility] of Vaccine 00:00:00 [facility] SARS-COV-2 COVID-19 2021-03-29 Completed Unive rsity of MODERNA 12+ YRS 00:00:00 [facility] VACCINE [place] Influenza Virus 2021-03-29 Completed Universit [facility] of Vaccine 00:00:00 [facility] SARS-COV-2 COVID-19 2021-03-29 Completed Unive rsity of MODERNA 12+ YRS 00:00:00 [facility] VACCINE [place] Influenza Virus 2021-03-29 Completed Universit y of Vaccine 00:00:00 [facility] SARS-COV-2 COVID-19 2021-03-29 Completed Unive rsity of MODERNA 12+ YRS 00:00:00 [facility] Influenza Virus 2021-03-29 Completed Universit y of Vaccine 00:00:00 [facility] SARS-COV-2 COVID-19 2021-03-29 Completed Unive rsity of MODERNA 12+ YRS 00:00:00 [facility] VACCINE [place] Influenza Virus 2021-03-29 Completed Universit y of Vaccine 00:00:00 [facility] SARS-COV-2 COVID-19 2021-03-29 Completed Unive rsity of MODERNA 12+ YRS 00:00:00 [facility] Influenza Virus 2021-03-29 Completed Universit y of Vaccine 00:00:00 [facility] SARS-COV-2 COVID-19 2021-03-29 Completed Unive rsity of MODERNA 12+ YRS 00:00:00 [facility] VACCINE [place] Influenza Virus 2021-03-29 Completed Universit y of Vaccine 00:00:00 [facility] SARS-COV-2 COVID-19 2021-03-29 Completed Unive rsity of MODERNA 12+ YRS 00:00:00 [facility] Influenza Virus 2021-03-29 Completed Universit y of Vaccine 00:00:00 [facility] SARS-COV-2 COVID-19 2021-03-29 Completed Unive rsity of MODERNA 12+ YRS 00:00:00 [facility] Influenza Virus 2021-03-29 Completed Universit y of Vaccine 00:00:00 [facility] SARS-COV-2 COVID-19 2021-03-29 Completed Unive rsity of MODERNA 12+ YRS 00:00:00 [facility] Influenza Virus 2021-03-29 Completed Universit y of Vaccine 00:00:00 [facility] SARS-COV-2 COVID-19 2021-03-29 Completed Unive rsity of MODERNA 12+ YRS 00:00:00 [facility] Influenza Virus 2021-03-29 Completed Universit y of Vaccine 00:00:00 [facility] SARS-COV-2 COVID-19 2021-03-29 Completed Unive rsity of MODERNA 12+ YRS 00:00:00 [facility] Influenza Virus 2021-03-29 Completed Universit y of Vaccine 00:00:00 [facility] SARS-COV-2 COVID-19 2021-03-29 Completed Unive rsity of MODERNA 12+ YRS 00:00:00 [facility] Influenza Virus 2021-03-29 Completed Universit y of Vaccine 00:00:00 [facility] SARS-COV-2 COVID-19 2021-03-29 Completed Unive rsity of MODERNA 12+ YRS 00:00:00 [facility] Influenza Virus 2021-03-29 Completed Universit y of Vaccine 00:00:00 [facility] SARS-COV-2 COVID-19 2021-03-29 Completed Unive rsity of MODERNA 12+ YRS 00:00:00 [facility] Influenza Virus 2021-03-29 Completed Universit y of Vaccine 00:00:00 [facility] SARS-COV-2 COVID-19 2021-03-29 Completed Unive rsity of MODERNA 12+ YRS 00:00:00 [facility] Influenza Virus 2021-03-29 Completed Universit y of Vaccine 00:00:00 [facility] SARS-COV-2 COVID-19 2021-03-29 Completed Unive rsity of MODERNA 12+ YRS 00:00:00 [facility] Influenza Virus 2021-03-29 Completed Universit y of Vaccine 00:00:00 [facility] SARS-COV-2 COVID-19 2021-03-29 Completed Unive rsity of MODERNA 12+ YRS 00:00:00 [facility] Influenza Virus 2021-03-29 Completed Universit y of Vaccine 00:00:00 [facility] SARS-COV-2 COVID-19 2021-03-29 Completed Unive rsity of MODER[place] VACCINE 00:00:00 [facility] Influenza Virus 2021-03-29 Completed Universit y of Vaccine 00:00:00 [facility] SARS-COV-2 COVID-19 2021-03-29 Completed Unive rsity of MODER[place] VACCINE 00:00:00 [facility] Influenza Virus 2021-03-29 Completed Universit y of Vaccine 00:00:00 [facility] SARS-COV-2 COVID-19 2021-03-29 Completed Unive rsity of MODERNA VACCINE 00:00:00 [facility] Influenza Virus 2021-03-29 Completed Universit y of Vaccine 00:00:00 [facility] SARS-COV-2 COVID-19 2021-03-29 Completed Unive rsity of MODER[place] VACCINE 00:00:00 [facility] Influenza Virus 2021-03-29 Completed Universit [facility] of Vaccine 00:00:00 [facility] SARS-COV-2 COVID-19 2021-03-29 Completed [facility] VACCINE 00:00:00 [facility] Influenza Virus 2021-03-29 Completed [facility] Vaccine 00:00:00 [facility] SARS-COV-2 COVID-19 2021-03-29 Completed [facility] of MODERNA 12+ YRS 00:00:00 [facility] Influenza Virus 2021-03-29 Completed [facility] Vaccine 00:00:00 [facility] SARS-COV-2 COVID-19 2021-03-29 Completed [facility]ive rs[facility] of MODERNA 12+ YRS 00:00:00 [facility] Influenza Virus 2021-03-29 Completed [facility] Vaccine 00:00:00 [facility] Influenza Virus 2021-03-29 Completed [facility] Vaccine 00:00:00 [facility] SARS-COV-2 COVID-19 2021-03-29 Completed [facility]ive rs[facility] of MODERNA 12+ YRS 00:00:[address] [facility] [place] [facility] SARS-COV-2 COVID-19 2021-03-29 Completed [facility] VACCINE 00:00:00 [facility] Influenza Virus 2021-03-29 Completed [facility] Vaccine 00:00:00 [facility] SARS-COV-2 COVID-19 2021-03-29 Completed [facility]ive rs[facility] of MODERNA 12+ YRS 00:00:00 [facility] VACCINE [place] Influenza Virus 2021-03-29 Completed [facility] Vaccine 00:00:00 [facility] SARS-COV-2 COVID-19 2021-03-29 Completed [facility]ive rs[facility] of MODERNA 12+ YRS 00:00:00 [facility] VACCINE [place] MOD[facility]NA COVID-19 2021-03-29 Completed [facility] MRNA VACCINATION 00:00:00 [facility] FLUZOKS HIGH-DOSE PF 2021-01-31 Completed Meth odist 00:00:00 [facility] COVID-19 2021-01-31 Completed Method[facility] t MRNA VACCINATION 00:00:00 [facility] FLUZONE HIGH-DOSE PF 2021-01-31 Completed Meth odist 00:00:00 [facility] COVID-19 2021-01-31 Completed Method[facility] MRNA VACCINATION 00:00:00 [facility] FLUZONE HIGH-DOSE PF 2021-01-31 Completed Meth odist 00:00:00 [facility] COVID-19 2021-01-31 Completed Method[facility] MRNA VACCINATION 00:00:00 [facility] FLUZONE HIGH-DOSE PF 2021-01-31 Completed Meth odist 00:00:00 [facility] COVID-19 2021-01-31 Completed [facility] MRNA VACCINATION 00:00:00 [facility] FLUZONE HIGH-DOSE PF 2021-01-31 Completed Meth odist 00:00:00 [facility] COVID-19 2021-01-31 Completed [facility] MRNA VACCINATION 00:00:00 [facility] FLUZONE HIGH-DOSE PF 2021-01-31 Completed Meth odist 00:00:00 [facility] COVID-19 2021-01-31 Completed [facility] MRNA VACCINATION 00:00:00 [facility] FLUZONE HIGH-DOSE PF 2021-01-31 Com[facility] MRNA VACCINATION 00:00:00 [facility] FLUZOKS HIGH-DOSE PF 2021-01-31 Completed Meth odist 00:00:00 [facility] [id number] 2021-01-31 Completed Method[facility] t MRNA VACCINATION 00:00:00 [facility] FLUZOKS HIGH-DOSE 2021-01-31 Completed Meth odist 00:00:00 [facility] [id number] 2021-01-31 Completed [facility] MRNA VACCINATION 00:00:00 [facility] FLUZOKS HIGH-DOSE 2021-01-31 Completed Meth odist 00:00:00 [facility] [id number] 2021-01-31 Completed [facility] MRNA VACCINATION 00:00:00 [facility] FLUZOKS HIGH-DOSE 2021-01-31 Completed Meth odist 00:00:00 [facility] ELMOIDRaymundo 2021-01-31 Completed Method[facility] t MRNA VACCINATION 00:00:00 [facility] HIGH-DOSE 2021-01-31 Completed [facility]ist 00:00:00 [facility]:00[facility]26 Com[facility]ACC[facility] 00:00[facility] 2020[facility]26 Com[facility] 00:00[facility] 2020[facility]26 Com[facility]ACC[facility] 00:00[facility] 2020[facility]26 Com[facility]ACC[facility]ATION 00:00[facility] 2020-06[facility]26 Com[facility]ACC[facility]ATION 00:00[facility] 2020-06[facility]26 Com[facility]ACCINATION 00:00[facility]00 [facility] 2020-06[facility]26 Com[facility]ACCINATION 00:00[facility]00 [facility] 2020-06-26 Com[facility] VACCINATION 00:00:00 [facility] 2020-06-26 Completed [facility] MRNA VACCINATION 00:00:00 [place] [id number] 2020-06-26 Completed [facility] MRNA VACCINATION 00:00:00 [facility] SARS-COV-2 COVID-19 2020-06-26 Completed [facility] MODERNA 12+ YRS 00:00:00 [place] [facility] SARS-COV-2 COVID-19 2020-06-26 Completed [facility] of MODERNA 12+ YRS 00:00:00 [place] [facility] V[facility] SARS-COV-2 COVID-19 2020-06-26 Completed [facility] of MODERNA 12+ YRS 00:00:00 [place] [facility] V[facility] SARS-COV-2 COVID-19 2020-06-26 Completed [facility] of MODERNA 12+ YRS 00:00:00 [place] [facility] V[facility] SARS-COV-2 COVID-19 2020-06-26 Completed [facility] of MODERNA 12+ YRS 00:00:00 [place] [facility] V[facility] SARS-COV-2 COVID-19 2020-06-26 Completed [facility] of MODERNA 12+ YRS 00:00:00 [place] [facility] VACC[facility] SARS-COV-2 COVID-19 2020-06-26 Completed [facility] of MODERNA 12+ YRS 00:00:00 [place] [facility] V[facility] SARS-COV-2 COVID-19 2020-06-26 Completed [facility] of MODERNA 12+ YRS 00:00:00 [place] [facility] V[facility] SARS-COV-2 COVID-19 2020-06-26 Completed [facility] of MODERNA 12+ YRS 00:00:00 [place] [facility] V[facility] SARS-COV-2 COVID-19 2020-06-26 Completed [facility] of MODERNA 12+ YRS 00:00:00 [place] [facility] V[facility] SARS-COV-2 COVID-19 2020-06-26 Completed [facility] of MODERNA 12+ YRS 00:00:00 [place] [facility] V[facility] SARS-COV-2 COVID-19 2020-06-26 Completed [facility] of MODERNA 12+ YRS 00:00:00 [place] [facility] V[facility] SARS-COV-2 COVID-19 2020-06-26 Completed [facility] of MODERNA 12+ YRS 00:00:00 [place] [facility] V[facility] SARS-COV-2 COVID-19 2020-06-26 Completed [facility] of MODERNA 12+ YRS 00:00:00 [place] [facility] V[facility] SARS-COV-2 COVID-19 2020-06-26 Completed [facility] of MODERNA 12+ YRS 00:00:00 [place] [facility] V[facility] SARS-COV-2 COVID-19 2020-06-26 Completed [facility] of MODERNA 12+ YRS 00:00:00 [place] [facility] SARS-COV-2 COVID-19 2020-06-26 Completed [facility] of MODERNA 12+ YRS 00:00:00 [place] [facility] V[facility] SARS-COV-2 COVID-19 2020-06-26 Completed [facility] of MODERNA 12+ YRS 00:00:00 [place] [facility] V[facility] SARS-COV-2 COVID-19 2020-06-26 Completed [facility] of MODERNA 12+ YRS 00:00:00 [place] [facility] V[facility] SARS-COV-2 COVID-19 2020-06-26 Completed [facility] of MODERNA 12+ YRS 00:00:00 [place] [facility] SARS-COV-2 COVID-19 2020-06-26 Completed [facility] of MODERNA 12+ YRS 00:00:00 [place] [facility] SARS-COV-2 COVID-19 2020-06-26 Completed [facility] VACCINE 00:00:00 [place] [facility] SARS-COV-2 COVID-19 2020-06-26 Completed [facility] VACCINE 00:00:00 [place] [facility] SARS-COV-2 COVID-19 2020-06-26 Completed [facility] VACCINE 00:00:00 [place] [facility] SARS-COV-2 COVID-19 2020-06-26 Completed [facility] VACCINE 00:00:00 [place] [facility] SARS-COV-2 COVID-19 2020-06-26 Completed [facility] VACCINE 00:00:00 [place] [facility] SARS-COV-2 COVID-19 2020-06-26 Completed [facility] of MODERNA 12+ YRS 00:00:00 [place] [facility] VACCINE [facility] SARS-COV-2 COVID-19 2020-06-26 Completed [facility]ive [facility] of MODERNA 12+ YRS 00:00:00 [place] [facility] VACCINE [facility] SARS-COV-2 COVID-19 2020-06-26 Completed Unive rsity of MODERNA 12+ YRS 00:00:00 [place] [facility] VACCINE [facility] SARS-COV-2 COVID-19 2020-06-26 Completed [facility] MODERNA VACCINE 00:00:00 [place] [facility] SARS-COV-2 COVID-19 2020-06-26 Completed [facility] rs[facility] of MODERNA 12+ YRS 00:00:00 [place] [facility] VACCINE [facility] SARS-COV-2 COVID-19 2020-06-26 Completed [facility] of MODERNA 12+ YRS 00:00:00 [place] [facility] MOD[facility]NA COVID-19 2020-06-26 Completed [facility] MRNA VACCINATION 00:00:00 [facility] COVID-19 2020-05-24 Completed [facility] MRNA VACCINATION 00:00:00 [facility] COVID-19 2020-05-24 Completed [facility] MRNA VACCINATION 00:00:00 [facility] COVID-19 2020-05-24 Completed [facility] MRNA VACCINATION 00:00:00 [facility] COVID-19 2020-05-24 Completed [facility] MRNA VACCINATION 00:00:00 [facility] COVID-19 2020-05-24 Completed [facility] MRNA VACCINATION 00:00:00 [facility] COVID-19 2020-05-24 Completed [facility] MRNA VACCINATION 00:00:00 [facility] COVID-19 2020-05-24 Completed [facility]24 Com[facility] MRNA VACCINATION 00:00:00 [facility] COVID-19 2020-05-24 Completed [facility] MRNA VACCINATION 00:00:00 [facility] SARS-COV-2 COVID-19 2020-05-24 Completed [facility] of MODERNA 12+ YRS 00:00:00 [place] [facility] SARS-COV-2 COVID-19 2020-05-24 Completed [facility] of MODERNA 12+ YRS 00:00:00 [place] [facility] V[facility] SARS-COV-2 COVID-19 2020-05-24 Completed [facility] of MODERNA 12+ YRS 00:00:00 [place] [facility] V[facility] SARS-COV-2 COVID-19 2020-05-24 Completed [facility] of MODERNA 12+ YRS 00:00:00 [place] [facility] VACC[facility] SARS-COV-2 COVID-19 2020-05-24 Completed [facility] of MODERNA 12+ YRS 00:00:00 [place] [facility] VACCINE [facility] SARS-COV-2 COVID-19 2020-05-24 Completed [facility] of MODERNA 12+ YRS 00:00:00 [place] [facility] VACCINE [facility] SARS-COV-2 COVID-19 2020-05-24 Completed [facility] of MODERNA 12+ YRS 00:00:00 [place] [facility] VACCINE [facility] SARS-COV-2 COVID-19 2020-05-24 Completed [facility] of MODERNA 12+ YRS 00:00:00 [place] [facility] VACC[facility] SARS-COV-2 COVID-19 2020-05-24 Completed [facility] of MODERNA 12+ YRS 00:00:00 [place] [facility] VACCINE [facility] SARS-COV-2 COVID-19 2020-05-24 Completed [facility] of MODERNA 12+ YRS 00:00:00 [place] [facility] VACC[facility] SARS-COV-2 COVID-19 2020-05-24 Completed [facility] of MODERNA 12+ YRS 00:00:00 [place] [facility] VACCINE [facility] SARS-COV-2 COVID-19 2020-05-24 Completed [facility] of MODERNA 12+ YRS 00:00:00 [place] [facility] VACCINE [facility] SARS-COV-2 COVID-19 2020-05-24 Completed [facility] of MODERNA 12+ YRS 00:00:00 [place] [facility] VACCINE [facility] SARS-COV-2 COVID-19 2020-05-24 Completed [facility] of MODERNA 12+ YRS 00:00:00 [place] [facility] VACCINE [facility] SARS-COV-2 COVID-19 2020-05-24 Completed [facility] of MODERNA 12+ YRS 00:00:00 [place] [facility] VACCINE [facility] SARS-COV-2 COVID-19 2020-05-24 Completed [facility] of MODERNA 12+ YRS 00:00:00 [place] [facility] VACCINE [facility] SARS-COV-2 COVID-19 2020-05-24 Completed [facility] of MODERNA 12+ YRS 00:00:00 [place] [facility] VACCINE [facility] SARS-COV-2 COVID-19 2020-05-24 Completed [facility] of MODERNA 12+ YRS 00:00:00 [place] [facility] VACCINE [facility] SARS-COV-2 COVID-19 2020-05-24 Completed [facility] of MODERNA 12+ YRS 00:00:00 [place] [facility] VACCINE [facility] SARS-COV-2 COVID-19 2020-05-24 Completed [facility] of MODERNA 12+ YRS 00:00:00 [place] [facility] VACCINE [facility] SARS-COV-2 COVID-19 2020-05-24 Completed [facility] of MODERNA 12+ YRS 00:00:00 [place] [facility] VACC[facility] SARS-COV-2 COVID-19 2020-05-24 Completed [facility] VACCINE 00:00:00 [place] [facility] SARS-COV-2 COVID-19 2020-05-24 Completed [facility] VACCINE 00:00:00 [place] [facility] SARS-COV-2 COVID-19 2020-05-24 Completed [facility] VACCINE 00:00:00 [place] [facility] SARS-COV-2 COVID-19 2020-05-24 Completed [facility] VACCINE 00:00:00 [place] [facility] SARS-COV-2 COVID-19 2020-05-24 Completed [facility] VACCINE 00:00:00 [place] [facility] SARS-COV-2 COVID-19 2020-05-24 Completed [facility] of MODERNA 12+ YRS 00:00:00 [place] [facility] VACCINE [facility] SARS-COV-2 COVID-19 2020-05-24 Completed [facility] of MODERNA 12+ YRS 00:00:00 [place] [facility] VACCINE [facility] SARS-COV-2 COVID-19 2020-05-24 Completed [facility]ive rs[facility] of MODERNA 12+ YRS 00:00:00 [facility] ical VACCINE Branch SARS-COV-2 COVID-19 2020-05-24 Completed [facility]ive [facility] of [facility]ER[place] VACCINE 00:00:00 [facility] ical Branch SARS-COV-2 COVID-19 2020-05-24 Completed Unive rsity of MODERNA 12+ YRS 00:00:00 [facility] ical VACCINE Branch SARS-COV-2 COVID-19 2020-05-24 Completed [facility]ive rs[facility] of MODERNA 12+ YRS 00:00:00 [facility] ical VACCINE Branch MODERNA COVID-19 2020-05-24 Completed [facility] MRNA VACCINATION 00:00:00 [facility] PFIZER COVID-19 MRNA 2020-05-16 Completed [facility] VACCINATION 00:00:00 [facility] PFIZER COVID-19 MRNA 2020-05-16 Completed [facility] VACCINATION 00:00:00 [facility] PFIZER COVID-19 MRNA 2020-05-16 Completed [facility] VACCINATION 00:00:00 [facility] PFIZER COVID-19 MRNA 2020-05-16 Completed [facility] VACCINATION 00:00:00 [facility] PFIZER COVID-19 MRNA 2020-05-16 Completed [facility] VACCINATION 00:00:00 [facility] PFIZER COVID-19 MRNA 2020-05-16 Completed [facility] VACCINATION 00:00:00 [facility] PFIZER COVID-19 MRNA 2020-05-16 Completed [facility] VACCINATION 00:00:00 [facility] PFIZER COVID-19 MRNA 2020-05-16 Completed [facility] VACCINATION 00:00:00 [facility] PFIZER COVID-19 MRNA 2020-05-16 Completed [facility] VACCINATION 00:00:00 [facility] PFIZER COVID-19 MRNA 2020-05-16 Completed [facility] VACCINATION 00:00:00 [facility] PFIZER COVID-19 MRNA 2020-05-16 Completed [facility] VACCINATION 00:00:00 [facility] PFIZER COVID-19 MRNA 2020-05-16 Completed [facility] VACCINATION 00:00:00 [facility] PFIZER COVID-19 MRNA 2020-04-23 Completed [facility] VACCINATION 00:00:00 [facility] PFIZER COVID-19 MRNA 2020-04-23 Completed [facility] VACCINATION 00:00:00 [facility] PFIZER COVID-19 MRNA 2020-04-23 Completed [facility]ACC[facility]ATION 00:00:00 [facility] PFIZER COVID-19 MRNA 2020-04-23 Completed [facility] VACCINATION 00:00:00 [facility] PFIZER COVID-19 MRNA 2020-04-23 Completed [facility] VACCINATION 00:00:00 [facility] PFIZER COVID-19 MRNA 2020-04-23 Completed [facility] VACCINATION 00:00:00 [facility] PFIZER COVID-19 MRNA 2020-04-23 Completed [facility] VACCINATION 00:00:00 [facility] PFIZER COVID-19 MRNA 2020-04-23 Completed [facility] VACCINATION 00:00:00 [facility] PFIZER COVID-19 MRNA 2020-04-23 Completed [facility] VACCINATION 00:00:00 [facility] PFIZER COVID-19 MRNA 2020-04-23 Completed [facility] VACCINATION 00:00:00 [facility] PFIZER COVID-19 MRNA 2020-04-23 Completed [facility] VACCINATION 00:00:00 [facility] PFIZER COVID-19 MRNA 2020-04-23 Completed [facility] VACCINATION 00:00:00 [facility] FLUZONE HIGH-DOSE PF 2019-11-18 Completed [facility] 00:00:00 Hospital FLUZONE HIGH-DOSE PF 2019-11-18 Completed [facility] 00:00:00 Hospital FLUZONE HIGH-DOSE PF 2019-11-18 Completed [facility] 00:00:00 Hospital FLUZONE HIGH-DOSE PF 2019-11-18 Completed [facility] 00:00:00 Hospital FLUZONE HIGH-DOSE PF 2019-11-18 Completed [facility] 00:00:00 Hospital FLUZONE HIGH-DOSE PF 2019-11-18 Completed [facility] 00:00:00 Hospital FLUZONE HIGH-DOSE PF 2019-11-18 Completed [facility] 00:00:00 Hospital FLUZONE HIGH-DOSE PF 2019-11-18 Completed [facility] 00:00:00 Hospital FLUZONE HIGH-DOSE PF 2019-11-18 Completed [facility] 00:00:00 Hospital FLUZONE HIGH-DOSE PF 2019-11-18 Completed [facility] 00:00:00 Hospital FLUZONE HIGH-DOSE PF 2019-11-18 Completed [facility] 00:00:00 Hospital FLUZONE HIGH-DOSE PF 2019-11-18 Completed [facility] 00:00:00 Hospital Tdap Tdap 2016-11-23 Completed [facility] 12:20:00 [facility] influenza, high dose influenza, high dose 2016-11-23 Completed [facility] seasonal seasonal 11:37:33 Practice FLUZONE HIGH-DOSE PF 2016-11-23 Completed [facility] 00:00:00 [facility] Tdap 2016-11-23 Completed [facility] 00:[facility]:00 [facility] FLUZONE HIGH-DOSE PF 2016-11-23 Completed [facility] 00:00:00 Hospital Tdap 2016-11-23 Completed [facility] 00:[facility]:00 [facility] FLUZONE HIGH-DOSE PF 2016-11-23 Completed [facility] 00:00:00 Hospital Tdap 2016-11-23 Completed [facility] 00:00:00 [facility] FLUZONE HIGH-DOSE PF 2016-11-23 Completed [facility] 00:00:00 Hospital Tdap 2016-11-23 Completed [facility] 00:00:00 [facility] FLUZONE HIGH-DOSE PF 2016-11-23 Completed [facility] 00:00:00 Hospital Tdap 2016-11-23 Completed [facility] 00:00:00 [facility] FLUZONE HIGH-DOSE PF 2016-11-23 Completed [facility] 00:00:00 Hospital Tdap 2016-11-23 Completed [facility] 00:00:00 [facility] FLUZONE HIGH-DOSE PF 2016-11-23 Completed [facility] 00:00:00 Hospital Tdap 2016-11-23 Completed [facility] 00:00:00 [facility] FLUZONE HIGH-DOSE PF 2016-11-23 Completed [facility] 00:00:00 Hospital Tdap 2016-11-23 Completed [facility] 00:00:00 [facility] FLUZONE HIGH-DOSE PF 2016-11-23 Completed [facility] 00:00:00 Hospital Tdap 2016-11-23 Completed [facility] 00:00:00 [facility] FLUZONE HIGH-DOSE PF 2016-11-23 Completed [facility] 00:00:00 Hospital Tdap 2016-11-23 Completed [facility] 00:00:00 [facility] FLUZONE HIGH-DOSE PF 2016-11-23 Completed [facility] 00:00:00 Hospital Tdap 2016-11-23 Completed [facility] 00:00:00 [facility] FLUZONE HIGH-DOSE PF 2016-11-23 Completed [facility] 00:00:00 Hospital Tdap 2016-11-23 Completed [facility] 00:[facility] FLUZONE HIGH-DOSE PF 2015-02-02 Completed [facility] 00:[facility]:00 [facility] Pneumococcal 2015-02-02 Completed [facility] Conjugate 13-Valent 00:00:00 [facility] FLUZONE HIGH-DOSE PF 2015-02-02 Completed [facility] 00:00:00 [facility] Pneumococcal 2015-02-02 Completed [facility] Conjugate 13-Valent 00:00:00 [facility] FLUZONE HIGH-DOSE PF 2015-02-02 Completed [facility] 00:00:00 [facility] Pneumococcal 2015-02-02 Completed [facility] Conjugate 13-Valent 00:00:00 [facility] FLUZONE HIGH-DOSE PF 2015-02-02 Completed [facility] 00:00:00 Hospital Pneumococcal 2015-02-02 Completed [facility] Conjugate 13-Valent 00:00:00 [facility] FLUZONE HIGH-DOSE PF 2015-02-02 Completed [facility] 00:00:00 [facility] Pneumococcal 2015-02-02 Completed [facility] Conjugate 13-Valent 00:00:00 [facility] FLUZONE HIGH-DOSE PF 2015-02-02 Completed [facility] 00:00:00 [facility] Pneumococcal 2015-02-02 Completed [facility] Conjugate 13-Valent 00:00:00 [facility] FLUZONE HIGH-DOSE PF 2015-02-02 Completed [facility] 00:00:00 Hospital Pneumococcal 2015-02-02 Completed [facility] Conjugate 13-Valent 00:00:00 [facility] FLUZONE HIGH-DOSE PF 2015-02-02 Completed [facility] 00:00:00 [facility] Pneumococcal 2015-02-02 Completed [facility] Conjugate 13-Valent 00:00:00 [facility] FLUZONE HIGH-DOSE PF 2015-02-02 Completed [facility] 00:00:00 [facility] Pneumococcal 2015-02-02 Completed [facility] Conjugate 13-Valent 00:00:00 [facility] FLUZONE HIGH-DOSE PF 2015-02-02 Completed [facility] 00:00:00 Hospital Pneumococcal 2015-02-02 Completed [facility] Conjugate 13-Valent 00:00:00 [facility] FLUZONE HIGH-DOSE PF 2015-02-02 Completed [facility] 00:00:00 Hospital Pneumococcal 2015-02-02 Completed [facility] Conjugate 13-Valent 00:00:00 [facility] FLUZONE HIGH-DOSE PF 2015-02-02 Completed [facility] 00:00:00 Hospital Pneumococcal 2015-02-02 Completed [facility] Conjugate 13-Valent 00:00:00 [facility] influenza, high dose influenza, high dose 2015-02-02 Completed [facility] seasonal seasonal 00:00:00 Practice pneumococcal pneumococcal 2015-02-02 Completed [facility] conjugate PCV 13 conjugate PCV 13 00:00:00 Pr actice influenza virus 2015-01-21 Completed [facility], 23:09:00 inactivated<sup>1</s up> influenza virus 2015-01-21 Completed [facility], 23:09:00 inactivated<sup>1</s up> influenza virus 2015-01-21 Completed [facility], 23:09:00 inactivated<sup>1</s up> Influenza, 2015-01-21 Completed [facility] 00:00:00 [facility] Influenza, 2015-01-21 Completed [facility] 00:00:00 [facility] Influenza, 2015-01-21 Completed [facility] 00:00:00 [facility] Influenza, 2015-01-21 Completed [facility] 00:00:00 [facility] Influenza, 2015-01-21 Completed [facility] 00:00:00 [facility] Influenza, 2015-01-21 Completed [facility] 00:00:00 [facility] Influenza, 2015-01-21 Completed [facility] 00:00:00 [facility] Influenza, 2015-01-21 Completed [facility] 00:00:00 [facility] Influenza, 2015-01-21 Completed [facility] 00:00:00 [facility] Influenza, 2015-01-21 Completed [facility] 00:00:00 [facility] Influenza, 2015-01-21 Completed [facility] 00:00:00 [facility] Influenza, 2015-01-21 Completed [facility] 00:00:00 [facility] Influenza 2014-09-30 [facility], 2013-11-16 Completed [facility] 00:[facility]:00 [facility] FLUCELVAX QUAD PF 2013-11-[address] 00:[facility]00 [facility] Influenza, 2013-11-16 Completed [facility] 00:00:00 [facility] FLUCELVAX QUAD PF 2013-11-[address] 00:00:00 [facility] Influenza, 2013-11-16 Completed [facility] 00:00:00 [facility] FLUCELVAX QUAD PF 2013-11-[address] 00:00:00 [facility] Influenza, 2013-11-16 Completed [facility] 00:00:00 [facility] FLUCELVAX QUAD PF 2013-11-[address] 00:00:00 [facility] Influenza, 2013-11-16 Completed [facility] 00:00:00 [facility] FLUCELVAX QUAD PF 2013-11-[address] 00:00:00 [facility] Influenza, 2013-11-16 Completed [facility] 00:00:00 [facility] FLUCELVAX QUAD PF 2013-11-[address] 00:00:00 [facility] Influenza, 2013-11-16 Completed [facility] 00:00:00 [facility] FLUCELVAX QUAD PF 2013-11-[address] 00:00:00 [facility] Influenza, 2013-11-16 Completed [facility] 00:00:00 [facility] FLUCELVAX QUAD PF 2013-11-[address] 00:00:00 [facility] Influenza, 2013-11-16 Completed [facility] 00:00:00 [facility] FLUCELVAX QUAD PF 2013-11-[address] 00:00:00 [facility] Influenza, 2013-11-16 Completed [facility] 00:00:00 [facility] FLUCELVAX QUAD PF 2013-11-[address] 00:00:00 [facility] Influenza, 2013-11-16 Completed [facility] 00:00:00 [facility] FLUCELVAX QUAD PF 2013-11-[address] 00:00:00 [facility] Influenza, 2013-11-16 Completed [facility] 00:00:00 Hospital FLUCELVAX QUAD PF 2013-11-16 Completed [facility] Influenza, Influenza, 2013-11-16 Completed [facility] injectable, MDCK, injectable, MDCK, 00:00:00 Practice preservative free preservative free Pneumococcal 2013-04-15 Completed [facility] 00:[facility]:00 [facility] Pneumococcal 2013-04-15 Completed [facility] Pol[facility] 00:00:00 Hospital Pneumococcal 2013-04-15 Completed [facility] Polysaccharide 00:00:00 Hospital Pneumococcal 2013-04-15 Completed [facility] Polysaccharide 00:00:00 Hospital Pneumococcal 2013-04-15 Completed [facility] Polysaccharide 00:00:00 Hospital Pneumococcal 2013-04-15 Completed [facility] Pol[facility]accharide 00:00:00 Hospital Pneumococcal 2013-04-15 Completed [facility] Polysaccharide 00:00:00 Hospital Pneumococcal 2013-04-15 Completed [facility] Polysaccharide 00:00:00 Hospital Pneumococcal 2013-04-15 Completed [facility] Pol[facility] 00:00:00 Hospital Pneumococcal 2013-04-15 Completed [facility] Pol[facility]accharide 00:00:00 Hospital Pneumococcal 2013-04-15 Completed [facility] Pol[facility] 00:00:00 Hospital Pneumococcal 2013-04-15 Completed [facility] 00:00:00 Hospital pneumococcal pneumococcal 2013-04-15 Completed [facility] Fa moraima polysaccharide PPV23 polysaccharide PPV23 00:00:00 Practice pneumococcal 2013-02-16 [facility] 23-[facility]ent 23:08:00 vaccine<sup>2</sup> pneumococcal 2013-02-16 Completed [facility] [place] 23-valent 23:08:00 vaccine<sup>2</sup> pneumococcal 2013-02-16 Completed [facility] [place] 23-valent 23:08:00 vaccine<sup>2</sup> Pneumococcal 2013-02-16 Completed [facility] 00:[facility]:00 [facility] Pneumococcal 2013-02-16 Completed [facility] 00:00:00 Hospital Pneumococcal 2013-02-16 Completed [facility] Pol[facility]accharide 00:00:00 Hospital Pneumococcal 2013-02-16 Completed [facility] Pol[facility]accharide 00:00:00 Hospital Pneumococcal 2013-02-16 Completed [facility] 00:00:00 Hospital Pneumococcal 2013-02-16 Completed [facility] 00:00:00 Hospital Pneumococcal 2013-02-16 Completed [facility] 00:00:00 Hospital Pneumococcal 2013-02-16 Completed [facility] Pol[facility] 00:00:00 Hospital Pneumococcal 2013-02-16 Completed [facility] Pol[facility]accharide 00:00:00 Hospital Pneumococcal 2013-02-16 Completed [facility] Polysaccharide 00:00:00 [facility] Pneumococcal 2013-02-16 Completed [facility] Polysaccharide 00:00:00 [facility] Pneumococcal 2013-02-16 Completed [facility] Pol[facility] 00:00:00 Hospital Vital Signs Vital Name Observation Time Observation Value Comments Source Systolic blood 2022-03-22 17:45:00 106 mm[Hg] [facility] Diastolic blood 2022-03-22 17:45:00 73 mm[Hg] Unive rsity of [facility] Heart rate 2022-03-22 17:45:00 92 /min [facility] Respiratory rate 2022-03-22 17:45:00 21 /min [facility] Oxygen saturation in 2022-03-22 17:45:00 92 /min [facility] of Arterial blood by [facility] Pulse oximetry Branch Body temperature 2022-03-22 13:53:00 37.06 Michael [facility] Systolic blood 2022-03-16 14:28:00 144 mm[Hg] [facility] Diastolic blood 2022-03-16 14:28:00 80 mm[Hg] [facility]ive rs[facility] Heart rate 2022-03-16 14:28:00 93 /min [facility] Body temperature 2022-03-16 14:28:00 37.11 Michael [facility] Body height 2022-03-16 14:28:00 180.3 cm [facility] [place] Body weight 2022-03-16 14:28:00 92.987 kg [facility] BMI 2022-03-16 14:28:00 28.59 kg/m2 [facility] Oxygen saturation in 2022-03-16 14:28:00 94 /min [facility] blood by [place] [employer] [facility] Pulse oximetry Branch Systolic blood 2022-03-09 20:19:00 126 mm[Hg] [facility] Diastolic blood 2022-03-09 20:19:00 84 mm[Hg] [facility] rs[facility] Heart rate 2022-03-09 20:19:00 85 /min [facility] Body height 2022-03-09 20:19:00 180.3 cm [facility] Body weight 2022-03-09 20:19:00 92.987 kg [facility] BMI 2022-03-09 20:19:00 28.59 kg/m2 [facility] Systolic blood 2022-02-15 17:39:00 139 mm[Hg] [facility] Diastolic blood 2022-02-15 17:39:00 79 mm[Hg] [facility] Heart rate 2022-02-15 17:39:00 66 /min [facility] Body temperature 2022-02-15 17:39:00 36.78 Michael [facility] Respiratory rate 2022-02-15 17:39:00 16 /min [facility] Oxygen saturation in 2022-02-15 17:39:00 96 /min [facility] blood by [place] [employer] jessica Pulse oximetry Branch Body height 2022-02-05 17:09:00 180.3 cm [facility] Body weight 2022-02-05 17:09:00 93.895 kg [facility] BMI 2022-02-05 17:09:00 28.87 kg/m2 [facility] Heart rate 2022-02-09 20:45:00 79 /min [facility] Oxygen saturation in 2022-02-09 20:45:00 95 /min [facility] by [place] [employer] jessica Pulse oximetry Branch Systolic blood 2022-02-09 20:15:00 140 mm[Hg] [facility] Diastolic blood 2022-02-09 20:15:00 90 mm[Hg] [facility]ive rs[facility] Body temperature 2022-02-09 17:29:00 36.72 Michael [facility] Respiratory rate 2022-02-09 17:29:00 18 /min [facility] Body height 2022-02-05 17:09:00 180.3 cm [facility] Body weight 2022-02-05 17:09:00 93.895 kg [facility] BMI 2022-02-05 17:09:00 28.87 kg/m2 Universi ty [facility] respiratory rate 2022-01-17 11:30:00 18 /min [facility] blood pressure 2022-01-17 11:30:00 106 mm[Hg] [facility] blood pressure 2022-01-17 11:30:00 62 mm[Hg] [facility] height 2022-01-17 11:30:00 71 [in_i] [facility] weight 2022-01-17 11:30:00 230 [lb_av] [facility] temperature 2022-01-17 11:30:00 98.6 [degF] [facility] bmi 2022-01-17 11:30:00 32.07 kg/m2 [facility] oximetry 2022-01-17 11:30:00 96 % [facility] Height 2021 00:00:00 71 [in_i] [facility] BMI (Body Mass 2021 00:00:00 33.5 kg/m2 [facility] Body Weight 2021 00:00:00 240 [lb_av] [facility] Systolic blood 2021-10-13 01:01:00 119 mm[Hg] Univer sity of [facility] Diastolic blood 2021-10-13 01:01:00 76 mm[Hg] Unive rsity of [facility] Heart rate 2021-10-13 01:01:00 92 /min Universi [facility] Body temperature 2021-10-13 01:01:[address] rate 2021-10-13 01:01:00 18 /min [facility] Body height 2021-10-13 01:01:00 180.3 cm Universi [facility] Body weight 2021-10-13 01:01:00 106.595 kg [facility] BMI 2021-10-13 01:01:00 32.78 kg/m2 Universi ty [facility] Oxygen saturation in 2021-10-13 01:01:00 96 /min [facility] Arterial blood by [facility] Pulse oximetry Branch Height 2021-09-19 00:00:00 71 [in_i] [facility] BMI (Body Mass 2021-09-19 00:00:00 33.5 kg/m2 [facility] Body Weight 2021-09-19 00:00:00 240 [lb_av] [facility] height 2021-09-13 15:00:00 71 [in_i] [facility] weight 2021-09-13 15:00:00 235 [lb_av] [facility] temperature 2021-09-13 15:00:00 98.2 [degF] [facility] bmi 2021-09-13 15:00:00 32.77 kg/m2 [facility] blood pressure 2021-09-13 15:00:00 114 mm[Hg] [facility] blood pressure 2021-09-13 15:00:00 72 mm[Hg] [facility] Systolic blood 2021-06-21 21:06:00 128 mm[Hg] Univer sity of [facility] Diastolic blood 2021-06-21 21:06:00 76 mm[Hg] Unive rsity of pressure [facility] Heart rate 2021-06-21 21:06:00 104 /min Universi ty [facility] Body temperature 2021-06-21 21:06:00 36.83 Michael Univ ersity [facility] Respiratory rate 2021-06-21 21:06:00 16 /min Univ ersity [facility] Oxygen saturation in 2021-06-21 21:06:00 96 /min [facility] Arterial blood by [facility] Pulse oximetry Branch Body height 2021-06-18 07:08:00 180.3 cm Universi ty [facility] Body weight 2021-06-18 07:08:00 106.9 kg Universi ty [facility] BMI 2021-06-18 07:08:00 32.87 kg/m2 [facility] Systolic blood 2021-06-18 23:12:00 142 mm[Hg] [facility] Diastolic blood 2021-06-18 23:12:00 78 mm[Hg] [facility]ive rs[facility] Heart rate 2021-06-18 23:12:00 79 /min [facility] Body temperature 2021-06-18 23:12:00 36.72 Michael [facility] Respiratory rate 2021-06-18 23:12:00 16 /min [facility] Oxygen saturation in 2021-06-18 23:12:00 96 /min [facility] blood by [place] [employer] [facility] Pulse oximetry Branch Body height 2021-06-18 07:08:00 180.3 cm [facility] Body weight 2021-06-18 07:08:00 106.9 kg [facility] BMI 2021-06-18 07:08:00 32.87 kg/m2 [facility] Systolic blood 2022-02-15 17:39:00 139 mm[Hg] [facility] Diastolic blood 2022-02-15 17:39:00 79 mm[Hg] [facility] Heart rate 2022-02-15 17:39:00 66 /min [facility] Body temperature 2022-02-15 17:39:00 36.78 Michael [facility] Respiratory rate 2022-02-15 17:39:00 16 /min [facility] Oxygen saturation in 2022-02-15 17:39:00 96 /min [facility] by [place] [employer] [facility]ica Pulse oximetry Branch Systolic blood 2022-02-07 14:14:00 131 mm[Hg] [facility] Diastolic blood 2022-02-07 14:14:00 93 mm[Hg] [facility]ive rs[facility] Heart rate 2022-02-07 14:14:00 86 /min [facility] Body temperature 2022-02-07 14:14:00 36.89 Michael [facility] Respiratory rate 2022-02-07 14:14:00 18 /min [facility] Oxygen saturation in 2022-02-07 14:14:00 95 /min [facility] Arterial blood by [facility] Pulse oximetry Branch Body height 2022-02-05 17:09:00 180.3 cm [facility] Body weight 2022-02-05 17:09:00 93.895 kg [facility] BMI 2022-02-05 17:09:00 28.87 kg/m2 [facility] Systolic blood 2021-07-10 20:12:00 131 mm[Hg] [facility] pressure Diastolic blood 2021-07-10 20:12:00 71 mm[Hg] [facility] pressure Heart rate 2021-07-10 20:12:00 82 /min [facility] Body temperature 2021-07-10 20:12:00 36.83 Michael [facility] Body height 2021-07-10 20:12:00 180.3 cm [facility] Oxygen saturation in 2021-07-10 20:12:00 98 /min [facility] Arterial blood by Pulse oximetry Respiratory rate 2021-06-17 05:15:00 16 /min [facility] Body weight 2021-06-17 00:40:00 102.059 kg [facility] BMI 2021-06-17 00:40:00 31.38 kg/m2 [facility] BP Diastolic 2017-05-22 00:00:00 76 mm[Hg] [facility] Height 2017-05-22 00:00:00 70 [in_i] [facility] BMI (Body Mass 2017-05-22 00:00:00 37.3 kg/m2 [facility] BP Systolic 2017-05-22 00:00:00 130 mm[Hg] [facility] Body Weight 2017-05-22 00:00:00 259.8 [lb_av] [facility] Systolic (mm Hg) 2017-05-04 00:30:00 Keegan Rios Diastolic (mm Hg) 2017-05-04 00:30:00 Mem elpidio Rios Respitory Rate 2017-05-04 00:30:00 [facility] Systolic (mm Hg) 2017-05-04 00:15:00 Keegan rial [facility] Diastolic (mm Hg) 2017-05-04 00:15:00 Mem [facility] [place] Respitory Rate 2017-05-04 00:15:00 [facility] Respitory Rate 2017-05-04 00:00:00 [facility] Systolic (mm Hg) 2017-05-04 00:00:00 Keegan rial [facility] Diastolic (mm Hg) 2017-05-04 00:00:00 Mem orial [facility] Heart Rate 2017-05-03 18:35:00 [facility] Heart Rate 2017-05-03 17:50:00 [facility] [place] BMI Calculated 2017-05-03 17:23:00 [facility] Weight 2017-05-03 17:23:00 [facility] Height 2017-05-03 17:23:00 180.34 cm [facility] [place] Weight 2017-04-25 15:05:00 [facility] BMI Calculated 2017-04-25 15:05:00 [facility] [place] Height 2017-04-25 15:05:[facility] 2017-02-26 00:00:00 74 mm[Hg] [facility] Height 2017-02-26 00:00:00 70 [in_i] [facility] BP Systolic 2017-02-26 00:00:00 122 mm[Hg] [facility] BP Diastolic 2016-11-23 00:00:00 74 mm[Hg] [facility] Height 2016-11-23 00:00:00 70 [in_i] [facility] BMI (Body Mass 2016-11-23 00:00:00 36.6 kg/m2 [facility] BP Systolic 2016-11-23 [...] Family Practice Height 2015-02-24 00:00:00 70 [in_i] [facility] BMI (Body Mass 2015-02-24 00:00:00 39.17 kg/m2 [facility] BP Diastolic 2015-02-24 00:00:00 80 mm[Hg] [facility] BP Systolic 2015-02-24 00:00:00 122 mm[Hg] [facility] Body Weight 2015-02-24 00:00:00 273 [lb_av] [facility] Respitory Rate 2015-02-22 23:19:00 [facility] [place] Weight 2015-02-22 23:19:00 [facility] Height 2015-02-22 23:19:00 182.88 cm [facility] Temperature Oral (F) 2015-02-22 23:19:00 98.7 F [facility] [place] BMI Calculated 2015-02-22 23:19:00 [facility] [place] Systolic (mm Hg) 2015-02-22 23:19:00 Keegan rial [place] Diastolic (mm Hg) 2015-02-22 23:19:00 [facility] [place] Heart Rate 2015-02-22 23:19:00 [facility] Respitory Rate 2015-02-19 17:24:00 [facility] Systolic (mm Hg) 2015-02-19 13:40:00 Keegan rial [facility] Diastolic (mm Hg) 2015-02-19 13:40:00 Mem orial [facility] Respitory Rate 2015-02-19 13:40:00 [facility] Heart Rate 2015-02-19 13:40:00 [facility] [place] Temperature Oral (F) 2015-02-19 13:40:00 99.1 F [facility] [place] Temperature Oral (F) 2015-02-19 11:22:00 98.3 F [facility] [place] Systolic (mm Hg) 2015-02-19 11:22:00 Keegan rial [place] Diastolic (mm Hg) 2015-02-19 11:22:00 Mem orial [facility] Heart Rate 2015-02-19 11:22:00 [facility] [place] Respitory Rate 2015-02-19 11:22:00 [facility] [place] Temperature Oral (F) 2015-02-19 06:36:00 98.3 F [facility] Heart Rate 2015-02-19 06:36:00 [facility] Systolic (mm Hg) 2015-02-19 06:36:00 Keegan rial [facility] Diastolic (mm Hg) 2015-02-19 06:36:00 [facility] [place] Height 2015-02-16 19:24:00 182.88 cm [facility] [place] BMI Calculated 2015-02-16 19:24:00 [facility] Weight 2015-02-16 19:24:00 [facility] BP Diastolic 2015-02-02 00:00:00 80 mm[Hg] [facility] Weight 2014-09-30 14:45:00 [facility] Height 2014-09-30 14:45:00 [facility] Heart Rate 2014-09-30 14:45:00 [facility] [place] Diastolic (mm Hg) 2014-09-30 14:45:00 Mem elpidio Parisann Systolic (mm Hg) 2014-09-30 14:45:00 Keegan Rios BP Diastolic 2014-09-13 00:00:00 72 mm[Hg] [facility] [...] Diastolic (mm Hg) 2013-06-08 14:45:00 Mem [facility] [place] Systolic (mm Hg) 2013-06-08 14:45:00 Keegan rial [facility] BP Diastolic 2013-05-27 00:00:00 70 mm[Hg] [facility] Height 2013-05-27 00:00:00 70 [in_i] [facility] BMI (Body Mass 2013-05-27 00:00:00 34.89 kg/m2 [facility] e Family Index) Practice BP Systolic 2013-05-27 00:00:00 126 mm[Hg] [facility] Body Weight 2013-05-27 00:00:00 243.2 [lb_av] [facility] Weight 2013-05-05 15:45:00 [facility] [place] Heart Rate 2013-05-05 15:45:00 [facility] [place] Diastolic (mm Hg) 2013-05-05 15:45:00 Mem [facility] [place] Systolic (mm Hg) 2013-05-05 15:45:00 Keegan rial [facility] BP Diastolic 2013-04-29 00:00:00 90 mm[Hg] [facility] Height 2013-04-29 00:00:00 70 [in_i] [facility] BMI (Body Mass 2013-04-29 00:00:00 35.29 kg/m2 [facility] e Family Index) Practice BP Systolic 2013-04-29 00:00:00 124 mm[Hg] [facility] Body Weight 2013-04-29 00:00:00 246 [lb_av] [facility] Diastolic (mm Hg) 2013-04-24 09:10:00 Mem [facility] [place] Systolic (mm Hg) 2013-04-24 09:10:00 Keegan rial [facility] Temperature Oral (F) 2013-04-24 09:10:00 97.1 F [facility] [place] Heart Rate 2013-04-24 09:10:00 [facility] Respitory Rate 2013-04-24 09:10:00 Bulmaro Barroso BMI Calculated 2013-04-24 04:40:00 Bulmaro rudolph [place] Weight 2013-04-24 04:40:00 [facility] Height 2013-04-24 04:40:00 182.88 cm [facility] Respitory Rate 2013-04-24 04:40:00 Bulmaro Barroso Temperature Oral (F) 2013-04-24 04:40:00 97.7 F Shawn Rios Heart Rate 2013-04-24 04:40:00 Shawn Parisann Diastolic (mm Hg) 2013-04-24 04:40:00 Saman magallanes [facility] Systolic (mm Hg) 2013-04-24 04:40:00 Keegan khan [facility] BP Diastolic 2013-04-15 00:00:00 80 mm[Hg] [facility] Height 2013-04-15 00:00:00 70 [in_i] [facility] BMI (Body Mass 2013-04-15 00:00:00 36.58 kg/m2 [facility] Practice BP Systolic 2013-04-15 00:00:00 128 mm[Hg] [facility] Body Weight 2013-04-15 00:00:00 255 [lb_av] [facility] Procedures Procedure Date / Time Performing Clinician Source Performed CT THORACIC MYELOGRAM 2022-03-22 16:52:00 Chinyere Lozano [facility] IR SPINAL INJECTION 2022-03-22 16:29:17 Chinyere Lozano [facility] [employer]WELLING CATHETER Medical Bran ch LUMBAR/SACRUM WITH IMAGE BASIC METABOLIC PANEL 2022-03-22 13:45:00 Deuce Dinh [facility] (NA, K, CL, CO2, [facility] GLUCOSE, BUN, CREATININE, CA) CBC WITHOUT DIFF 2022-03-22 13:45:00 Deuce Dinh [facility] PROTHROMBIN TIME / INR 2022-03-22 13:45:[address] [facility] ASSIGNMENT OF BENEFITS 2022-03-09 20:06:11 Doctor Unassigned, No [facility] AUTHORIZATION FOR 2022-03-02 06:01:00 Doctor Unassigned, No [facility] RELEASE OF [facility] POCT GLUCOSE (AUTOMATED) 2022-02-15 23:04:00 Ezra Serra [facility] POCT GLUCOSE (AUTOMATED) 2022-02-15 17:37:00 Ezra Serra [facility] POCT GLUCOSE (AUTOMATED) 2022-02-15 17:37:00 Ezra Serra [facility] POCT GLUCOSE (AUTOMATED) 2022-02-15 13:47:00 Ezra Serra Uni [facility] POCT GLUCOSE (AUTOMATED) 2022-02-15 13:47:00 Ezra Serra [facility] ABORH CONFIRMATION (LAB 2022-02-15 10:32:00 Sydnee [facility] ONLY) Medical Branch ABORH CONFIRMATION (LAB 2022-02-15 10:32:00 Sydnee [facility] ONLY) Medical Branch CBC WITH DIFF 2022-02-15 10:31:00 Simran Luis [facility] PROTHROMBIN TIME / INR 2022-02-15 10:31:00 [facility]-15 10:31:[address] [facility] BASIC METABOLIC PANEL 2022-02-15 10:31:00 Simran Luis [facility] (NA, K, CL, CO2, [facility] GLUCOSE, BUN, CREATININE, CA) CBC WITH DIFF 2022-02-15 10:31:00 Simran Luis [facility] PROTHROMBIN TIME / INR 2022-02-15 10:31:00 [facility] 2022-02-15 10:31:[address] [facility] BASIC METABOLIC PANEL 2022-02-15 10:31:00 Simran Luis [facility] (NA, K, CL, CO2, [facility] GLUCOSE, BUN, CREATININE, CA) POCT GLUCOSE (AUTOMATED) 2022-02-15 10:22:00 Ezra Serra [facility] POCT GLUCOSE (AUTOMATED) 2022-02-15 10:22:00 Ezra Serra Uni vers[facility] POCT GLUCOSE (AUTOMATED) 2022-02-15 05:31:00 Ezra Serra Uni [facility] POCT GLUCOSE (AUTOMATED) 2022-02-15 05:31:00 Ezra Serra [facility] POCT GLUCOSE (AUTOMATED) 2022-02-15 03:30:00 Shauna Serrarick [facility] POCT GLUCOSE (AUTOMATED) 2022-02-15 03:30:00 Maryse Ezra [facility] POCT GLUCOSE (AUTOMATED) 2022-02-15 02:26:00 Maryse, Ezra [facility] POCT GLUCOSE (AUTOMATED) 2022-02-15 02:26:00 Maryse, Ezra [facility] POCT GLUCOSE (AUTOMATED) 2022-02-14 21:59:00 Maryse, Ezra [facility] POCT GLUCOSE (AUTOMATED) 2022-02-14 21:59:00 Maryse, Ezra [facility] POCT GLUCOSE (AUTOMATED) 2022-02-14 17:33:00 Maryse, Ezra [facility] POCT GLUCOSE (AUTOMATED) 2022-02-14 17:33:00 Maryse Ezra [facility] POCT GLUCOSE (AUTOMATED) 2022-02-14 14:09:00 Maryse Ezra [facility] POCT GLUCOSE (AUTOMATED) 2022-02-14 14:09:00 Maryse Ezra [facility] CBC WITH DIFF 2022-02-14 10:50:00 [facility] BASIC METABOLIC PANEL 2022-02-14 10:50:00 [facility] (NA, K, CL, CO2, Medical Branch GLUCOSE, BUN, CREATININE, CA) CBC WITH DIFF 2022-02-14 10:50:00 [facility] BASIC METABOLIC PANEL 2022-02-14 10:50:00 [facility] (NA, K, CL, CO2, Medical Branch GLUCOSE, BUN, CREATININE, CA) POCT GLUCOSE (AUTOMATED) 2022-02-14 10:37:00 Maryse Ezra [facility] POCT GLUCOSE (AUTOMATED) 2022-02-14 10:37:00 Maryse Ezra [facility] POCT GLUCOSE (AUTOMATED) 2022-02-14 07:20:00 Sweet, Ezra [facility] POCT GLUCOSE (AUTOMATED) 2022-02-14 07:20:00 MaryseEzra Uni [facility] POCT GLUCOSE (AUTOMATED) 2022-02-14 06:00:00 Ezra eSrra Uni [facility] POCT GLUCOSE (AUTOMATED) 2022-02-14 06:00:00 Ezra Serra [facility] POCT GLUCOSE (AUTOMATED) 2022-02-14 02:43:00 Maryse Ezra [facility] POCT GLUCOSE (AUTOMATED) 2022-02-14 02:43:00 Ezra Serra Uni [facility] of [facility] CT CERVICAL MYELOGRAM 2022-02-13 23:39:54 Stafford, Lynne Paola Un iversity of [facility] CT LUMBAR MYELOGRAM 2022-02-13 23:39:54 Stafford, Lynne Paola Univ ersity of [facility] CT THORACIC MYELOGRAM 2022-02-13 23:39:54 Stafford, Lynne Paola Un [facility]versity of [facility] CT CERVICAL MYELOGRAM 2022-02-13 23:39:54 Stafford, Lynne Paola Un iversity of [facility] CT THORACIC MYELOGRAM 2022-02-13 23:39:54 Stafford, Lynne Paola Un iversity of [facility] CT LUMBAR MYELOGRAM 2022-02-13 23:39:54 Stafford, Lynne Paola Univ [facility]ity [facility] IR SPINAL INJECTION 2022-02-13 23:00:10 Stafford, Lynne Paola [facility] [place] [employer]WELLING CATHETER Medical Bran ch LUMBAR/SACRUM WITH IMAGE IR SPINAL INJECTION 2022-02-13 23:00:10 Stafford, Lynne Paola [facility] [place] [employer]WELLING CATHETER Medical Bran ch LUMBAR/SACRUM WITH IMAGE INTUBATION 2022-02-13 20:53:00 Cortney Leos [facility] POCT GLUCOSE (AUTOMATED) 2022-02-13 17:44:00 Ezra Serra Kortney versity of [facility] POCT GLUCOSE (AUTOMATED) 2022-02-13 17:44:00 Ezra Serra Uni versity of [facility] POCT GLUCOSE (AUTOMATED) 2022-02-13 16:06:00 Sweet, Ezra [facility] [place] [facility] POCT GLUCOSE (AUTOMATED) 2022-02-13 16:06:00 Maryse, Ezra [facility] [place] [facility] POCT GLUCOSE (AUTOMATED) 2022-02-13 13:51:00 MaryseShaunaEzra [facility] [place] [facility] POCT GLUCOSE (AUTOMATED) 2022-02-13 13:51:00 MaryseEzra [facility] [place] [facility] POCT GLUCOSE (AUTOMATED) 2022-02-13 10:56:00 Maryse Ezra [facility] [place] [facility] POCT GLUCOSE (AUTOMATED) 2022-02-13 10:56:00 Ezra Serra Uni versity of [facility] CBC WITH DIFF 2022-02-13 08:47:00 Toby, [facility] CBC WITH DIFF 2022-02-13 08:47:00 [facility] BASIC METABOLIC PANEL 2022-02-13 08:47:00 [facility] (NA, K, CL, CO2, Medical Branch GLUCOSE, BUN, CREATININE, CA) BASIC METABOLIC PANEL 2022-02-13 08:47:00 [facility] (NA, K, CL, CO2, Medical Branch GLUCOSE, BUN, CREATININE, CA) POCT GLUCOSE (AUTOMATED) 2022-02-13 05:37:00 Ezra Serra [facility] [place] [facility] POCT GLUCOSE (AUTOMATED) 2022-02-13 05:37:00 Ezra Serra [facility] [place] [facility] POCT GLUCOSE (AUTOMATED) 2022-02-13 01:58:00 Maryse Ezra [facility] [place] [facility] POCT GLUCOSE (AUTOMATED) 2022-02-13 01:58:00 Shauna Serrarick [facility] [place] [facility] POCT GLUCOSE (AUTOMATED) 2022-02-12 23:08:00 Maryse Ezra [facility] [place] [facility] POCT GLUCOSE (AUTOMATED) 2022-02-12 23:08:00 Shauna Serrarick [facility] [place] [facility] POCT GLUCOSE (AUTOMATED) 2022-02-12 17:33:00 Shauna Serrarick [facility] [place] [facility] POCT GLUCOSE (AUTOMATED) 2022-02-12 17:33:00 Ezra Serra [facility] [place] [facility] POCT GLUCOSE (AUTOMATED) 2022-02-12 17:33:00 Ezra Serra [facility] [place] [facility] POCT GLUCOSE (AUTOMATED) 2022-02-12 14:14:00 Ezra Serra [facility] [place] [facility] POCT GLUCOSE (AUTOMATED) 2022-02-12 14:14:00 Ezra Serra [facility] [place] [facility] POCT GLUCOSE (AUTOMATED) 2022-02-12 14:14:00 Ezra Serra Uni versity of [facility] CBC WITH DIFF 2022-02-12 11:28:00 Stafford, [facility] MAGNESIUM 2022-02-12 11:28:00 Stafford, [facility] BASIC METABOLIC PANEL 2022-02-12 11:28:00 Stafford, Lynne Caballerose [facility] [place] (NA, K, CL, CO2, Medical Branch GLUCOSE, BUN, CREATININE, CA) CBC WITH DIFF 2022-02-12 11:28:00 Stafford, [facility] BASIC METABOLIC PANEL 2022-02-12 11:28:00 Stafford, Lynne Caballerose [facility] [place] (NA, K, CL, CO2, Medical Branch GLUCOSE, BUN, CREATININE, CA) MAGNESIUM 2022-02-12 11:28:00 Stafford, [facility] CBC WITH DIFF 2022-02-12 11:28:00 Stafford, [facility] [place] MAGNESIUM 2022-02-12 11:28:00 Stafford, [facility] BASIC METABOLIC PANEL 2022-02-12 11:28:00 Stafford, Lynne Caballerose [facility] [place] (NA, K, CL, CO2, Medical Branch GLUCOSE, BUN, CREATININE, CA) POCT GLUCOSE (AUTOMATED) 2022-02-12 08:54:00 Ezra Serra [facility] [place] [facility] POCT GLUCOSE (AUTOMATED) 2022-02-12 08:54:00 Ezra Serra [facility] [place] [facility] POCT GLUCOSE (AUTOMATED) 2022-02-12 08:54:00 Ezra Serra [facility] [place] [facility] POCT GLUCOSE (AUTOMATED) 2022-02-12 05:04:00 Maryse, Ezra [facility] [place] [facility] POCT GLUCOSE (AUTOMATED) 2022-02-12 05:04:00 Sweet, Ezra [facility] [place] [facility] POCT GLUCOSE (AUTOMATED) 2022-02-12 05:04:00 Sweet, Ezra [facility] [place] [facility] POCT GLUCOSE (AUTOMATED) 2022-02-12 02:09:00 Sweet, Ezra [facility] [place] [facility] POCT GLUCOSE (AUTOMATED) 2022-02-12 02:09:00 Sweet, Ezra [facility] [place] [facility] POCT GLUCOSE (AUTOMATED) 2022-02-12 02:09:00 Sweet, Ezra [facility] [place] [facility] POCT GLUCOSE (AUTOMATED) 2022-02-11 23:01:00 Sweet, Ezra [facility] [place] [facility] POCT GLUCOSE (AUTOMATED) 2022-02-11 23:01:00 Maryse, Ezra [facility] [place] [facility] POCT GLUCOSE (AUTOMATED) 2022-02-11 23:01:00 Sweet, Ezra [facility] [place] [facility] POCT GLUCOSE (AUTOMATED) 2022-02-11 17:29:00 Sweet, Ezra [facility] [place] [facility] POCT GLUCOSE (AUTOMATED) 2022-02-11 17:29:00 Sweet, Ezra [facility] [place] [facility] POCT GLUCOSE (AUTOMATED) 2022-02-11 17:29:00 Maryse, Ezra [facility] [place] [facility] POCT GLUCOSE (AUTOMATED) 2022-02-11 14:10:00 Maryse, Ezra [facility] [place] [facility] POCT GLUCOSE (AUTOMATED) 2022-02-11 14:10:00 Maryse, Ezra [facility] [place] [facility] POCT GLUCOSE (AUTOMATED) 2022-02-11 14:10:00 Maryse, Ezra [facility] [place] [facility] CBC WITH DIFF 2022-02-11 12:12:00 Stafford, [facility] ty of [facility] CBC WITH DIFF 2022-02-11 12:12:00 Stafford, [facility] ty [facility] CBC WITH DIFF 2022-02-11 12:12:00 Stafford, [facility] ty of [place] [facility] MAGNESIUM 2022-02-11 12:11:00 Stafford, [facility] BASIC METABOLIC PANEL 2022-02-11 12:11:00 Stafford, Lynne Guevara [facility] [place] (NA, K, CL, CO2, Medical Branch GLUCOSE, BUN, CREATININE, CA) BASIC METABOLIC PANEL 2022-02-11 12:11:00 Stafford, Lynne Guevara [facility] [place] (NA, K, CL, CO2, Medical Branch GLUCOSE, BUN, CREATININE, CA) MAGNESIUM 2022-02-11 12:11:00 Stafford, [facility] MAG[facility]ESIUM 2022-02-11 12:11:00 Stafford, Lynne [facility] BASIC METABOLIC PANEL 2022-02-11 12:11:00 Stafford, Lynne Guevara [facility] [place] (NA, K, CL, CO2, Medical Branch GLUCOSE, BUN, CREATININE, CA) POCT GLUCOSE (AUTOMATED) 2022-02-11 03:06:00 Ezra Serra versity of [facility] POCT GLUCOSE (AUTOMATED) 2022-02-11 03:06:00 Ezra Srera [facility] [place] [facility] POCT GLUCOSE (AUTOMATED) 2022-02-11 03:06:00 Ezra Serra [facility] [place] [facility] POCT GLUCOSE (AUTOMATED) 2022-02-10 23:09:00 Ezra Serra [facility] [place] [facility] POCT GLUCOSE (AUTOMATED) 2022-02-10 23:09:00 Ezra Serra [facility] [place] [facility] POCT GLUCOSE (AUTOMATED) 2022-02-10 23:09:00 Ezra Serra [facility] [place] [facility] CBC WITH DIFF 2022-02-10 11:17:00 Delroy [facility] MAGNESIUM 2022-02-10 11:17:00 Delroy [facility] BASIC METABOLIC PANEL 2022-02-10 11:17:00 Quan Potts [facility] (NA, K, CL, CO2, Medical Branch GLUCOSE, BUN, CREATININE, CA) CBC WITH DIFF 2022-02-10 11:17:00 Delroy [facility] CBC WITH DIFF 2022-02-10 11:17:00 [facility] BASIC METABOLIC PANEL 2022-02-10 11:17:00 [facility] (NA, K, CL, CO2, Medical Branch GLUCOSE, BUN, CREATININE, CA) MAGNESIUM 2022-02-10 11:17:00 [facility] MAGNESIUM 2022-02-10 11:17:00 [facility] BASIC METABOLIC PANEL 2022-02-10 11:17:00 [facility] (NA, K, CL, CO2, Medical Branch GLUCOSE, BUN, CREATININE, CA) COMPUTERIZED AXIAL 2022-02-10 03:00:00 Anesthesiology [facility] TOMOGRAPHY [facility] COMPUTERIZED AXIAL 2022-02-10 03:00:00 Anesthesiology [facility] TOMOGRAPHY [facility] COMPUTERIZED AXIAL 2022-02-10 03:00:00 Anesthesiology [facility] TOMOGRAPHY [facility] POCT GLUCOSE (AUTOMATED) 2022-02-10 02:43:00 Ezra Serra Uni vers[facility] POCT GLUCOSE (AUTOMATED) 2022-02-10 02:43:00 Ezra Serra Uni versity of [facility] POCT GLUCOSE (AUTOMATED) 2022-02-10 02:43:00 Ezra Serra Uni vers[facility] POCT GLUCOSE (AUTOMATED) 2022-02-09 22:33:00 Ezra Serra Uni vers[facility] of [facility] POCT GLUCOSE (AUTOMATED) 2022-02-09 22:33:00 Ezra Serra Uni versity of [facility] POCT GLUCOSE (AUTOMATED) 2022-02-09 22:33:00 Ezra Serra versity of [facility] CT ABDOMEN PELVIS W 2022-02-09 20:14:05 Stafford, [facility] [place] CONTR[facility] CT HEAD WO CONTRAST 2022-02-09 20:14:05 Stafford, [facility] CT THORAX W CONTRAST 2022-02-09 20:14:05 Stafford, Lynne Paola Uni versity of [facility] CT ABDOMEN PELVIS W 2022-02-09 20:14:05 Stafford, [facility] [place] CONTRAST Medical Branch CT THORAX W CONTRAST 2022-02-09 20:14:05 Stafford, Lynne Paola [facility] [place] [facility] CT HEAD WO CONTRAST 2022-02-09 20:14:05 Stafford, [facility] Univ [facility] [place] [facility] CT ABDOMEN PELVIS W 2022-02-09 20:14:05 Stafford, [facility]ity of [place] CONTRAST Medical Branch CT HEAD WO CONTRAST 2022-02-09 20:14:05 Stafford, [facility] ersity of [place] [facility] [place] CT THORAX W CONTRAST 2022-02-09 20:14:05 Stafford, Lynne Paola Uni versity of [facility] POCT GLUCOSE (AUTOMATED) 2022-02-09 17:35:00 Maryse Ezra [facility] [place] [facility] POCT GLUCOSE (AUTOMATED) 2022-02-09 17:35:00 Sweet Ezra [facility] [place] [facility] POCT GLUCOSE (AUTOMATED) 2022-02-09 17:35:00 Sweet Ezra [facility] [place] [facility] POCT GLUCOSE (AUTOMATED) 2022-02-09 13:55:00 Sweet, Ezra [facility] [place] [facility] POCT GLUCOSE (AUTOMATED) 2022-02-09 13:55:00 Sweet, Ezra [facility] [place] [facility] POCT GLUCOSE (AUTOMATED) 2022-02-09 13:55:00 Sweet, Ezra [facility] [place] [facility] CBC WITH DIFF 2022-02-09 11:48:00 Stafford, [facility] MAGNESIUM 2022-02-09 11:48:00 Stafford, [facility] [place] BASIC METABOLIC PANEL 2022-02-09 11:48:00 Stafford, [facility] [place] (NA, K, CL, CO2, Medical Branch GLUCOSE, BUN, CREATININE, CA) CBC WITH DIFF 2022-02-09 11:48:00 Stafford, [facility] [place] BASIC METABOLIC PANEL 2022-02-09 11:48:00 Stafford, [facility] [place] (NA, K, CL, CO2, Medical Branch GLUCOSE, BUN, CREATININE, CA) MAGNESIUM 2022-02-09 11:48:00 Stafford, Lynne Paola [facility] CBC WITH DIFF 2022-02-09 11:48:00 Stafford, Lynne Guevara [facility] Branch MAGNESIUM 2022-02-09 11:48:00 Stafford[facility] METABOLIC PANEL 2022-02-09 11:48:00 Stafford, Lynne Guevara Un [facility] (NA, K, CL, CO2, Medical Branch GLUCOSE, BUN, CREATININE, CA) POCT GLUCOSE (AUTOMATED) 2022-02-09 02:40:00 Maryse Ezra Uni vers[facility] POCT GLUCOSE (AUTOMATED) 2022-02-09 02:40:00 Maryse, Ezra [facility] [place] [facility] POCT GLUCOSE (AUTOMATED) 2022-02-09 02:40:00 Maryse, Ezra [facility] [place] [facility] POCT GLUCOSE (AUTOMATED) 2022-02-09 00:05:00 Maryse Ezra [facility] [place] [facility] POCT GLUCOSE (AUTOMATED) 2022-02-09 00:05:00 Maryse, Ezra [facility] [place] [facility] POCT GLUCOSE (AUTOMATED) 2022-02-09 00:05:00 Maryse, Ezra [facility] [place] [facility] POCT GLUCOSE (AUTOMATED) 2022-02-08 17:57:00 Maryse, Ezra [facility] [place] [facility] POCT GLUCOSE (AUTOMATED) 2022-02-08 17:57:00 Maryse, Ezra [facility] [place] [facility] POCT GLUCOSE (AUTOMATED) 2022-02-08 17:57:00 Maryse Ezra [facility] [place] [facility] POCT GLUCOSE (AUTOMATED) 2022-02-08 14:26:00 Maryse, Ezra [facility] [place] [facility] POCT GLUCOSE (AUTOMATED) 2022-02-08 14:26:00 Maryse, Ezra [facility] [place] [facility] POCT GLUCOSE (AUTOMATED) 2022-02-08 14:26:00 Maryse Ezra Uni versity [facility] CBC WITH DIFF 2022-02-08 10:32:00 Stafford, [facility] 2022-02-08 10:32:00 Stafford, [facility] BASIC METABOLIC PANEL 2022-02-08 10:32:00 Stafford, Lynne Guevara [facility] [place] (NA, K, CL, CO2, Medical Branch GLUCOSE, BUN, CREATININE, CA) CBC WITH DIFF 2022-02-08 10:32:00 Stafford, Lynne Caballerose Univers ty of [facility] BASIC METABOLIC PANEL 2022-02-08 10:32:00 Stafford, Lynne Caballerose [facility] [place] (NA, K, CL, CO2, Medical Branch GLUCOSE, BUN, CREATININE, CA) MAGNESIUM 2022-02-08 10:32:00 Stafford, Lynne Caballerose Univers ty of [facility] CBC WITH DIFF 2022-02-08 10:32:00 Stafford, Lynne [facility] ty [facility] MAGNESIUM 2022-02-08 10:32:00 Stafford, Lynne [facility] ty [facility] BASIC METABOLIC PANEL 2022-02-08 10:32:00 Stafford, Lynne Caballerose [facility] [place] (NA, K, CL, CO2, Medical Branch GLUCOSE, BUN, CREATININE, CA) POCT GLUCOSE (AUTOMATED) 2022-02-08 02:45:00 Ezra Serra [facility] [place] [facility] POCT GLUCOSE (AUTOMATED) 2022-02-08 02:45:00 Maryse Ezra [facility] [place] [facility] POCT GLUCOSE (AUTOMATED) 2022-02-08 02:45:00 Maryse Ezra [facility] [place] [facility] POCT GLUCOSE (AUTOMATED) 2022-02-07 22:59:00 Maryse Ezra [facility] [place] [facility] POCT GLUCOSE (AUTOMATED) 2022-02-07 22:59:00 Maryse, Ezra [facility] [place] [facility] POCT GLUCOSE (AUTOMATED) 2022-02-07 22:59:00 Maryse, Ezra [facility] [place] [facility] POCT GLUCOSE (AUTOMATED) 2022-02-07 17:26:00 Maryse, Ezra [facility] [place] [facility] POCT GLUCOSE (AUTOMATED) 2022-02-07 17:26:00 Maryse, Ezra [facility] [place] [facility] POCT GLUCOSE (AUTOMATED) 2022-02-07 17:26:00 Maryse, Ezra [facility] [place] [facility] POCT GLUCOSE (AUTOMATED) 2022-02-07 13:43:00 Ezra Serra [facility] [place] [facility] POCT GLUCOSE (AUTOMATED) 2022-02-07 13:43:00 Ezra Serra [facility] [place] [facility] POCT GLUCOSE (AUTOMATED) 2022-02-07 13:43:00 Ezra Serra Uni versity of [facility] CBC WITH DIFF 2022-02-07 10:02:00 Stafford, Lynne [facility] BASIC METABOLIC PANEL 2022-02-07 10:02:00 Stafford, Lynne Caballerose [facility] [place] (NA, K, CL, CO2, Medical Branch GLUCOSE, BUN, CREATININE, CA) MAGNESIUM 2022-02-07 10:02:00 Stafford, [facility] CBC WITH DIFF 2022-02-07 10:02:00 Stafford, [facility] MAGNESIUM 2022-02-07 10:02:00 Stafford, [facility] BASIC METABOLIC PANEL 2022-02-07 10:02:00 Stafford, Lynne Caballerose [facility] [place] (NA, K, CL, CO2, Medical Branch GLUCOSE, BUN, CREATININE, CA) CBC WITH DIFF 2022-02-07 10:02:00 Stafford, Lynne [facility] MAGNESIUM 2022-02-07 10:02:00 Stafford, [facility] BASIC METABOLIC PANEL 2022-02-07 10:02:00 Stafford, Lynne Caballerose [facility] [place] (NA, K, CL, CO2, Medical Branch GLUCOSE, BUN, CREATININE, CA) POCT GLUCOSE (AUTOMATED) 2022-02-07 03:42:00 Ezra Serra Uni versity of [facility] POCT GLUCOSE (AUTOMATED) 2022-02-07 03:42:00 Ezra Serra [facility] [place] [facility] POCT GLUCOSE (AUTOMATED) 2022-02-07 03:42:00 Ezra Serra [facility] [place] [facility] POCT GLUCOSE (AUTOMATED) 2022-02-06 23:04:00 Ezra Serra [facility] [place] [facility] POCT GLUCOSE (AUTOMATED) 2022-02-06 23:04:00 Ezra Serra [facility] [place] [facility] POCT GLUCOSE (AUTOMATED) 2022-02-06 23:04:00 Ezra Serra Uni versity of [facility] POCT GLUCOSE (AUTOMATED) 2022-02-06 17:52:00 Ezra Serra [facility] [place] [facility] POCT GLUCOSE (AUTOMATED) 2022-02-06 17:52:00 Ezra Serra [facility] [place] [facility] POCT GLUCOSE (AUTOMATED) 2022-02-06 17:52:00 MaryseEzra Uni versity of [facility] POCT GLUCOSE (AUTOMATED) 2022-02-06 14:03:00 MaryseEzra Uni versity of [facility] POCT GLUCOSE (AUTOMATED) 2022-02-06 14:03:00 MaryseEzra Uni versity of [facility] POCT GLUCOSE (AUTOMATED) 2022-02-06 14:03:00 MaryseEzra Uni versity of [facility] CBC WITH DIFF 2022-02-06 11:03:00 Stafford, Lynne [facility] BASIC METABOLIC PANEL 2022-02-06 11:03:00 Stafford, Lynne Caballerose [facility] [place] (NA, K, CL, CO2, Medical Branch GLUCOSE, BUN, CREATININE, CA) MAGNESIUM 2022-02-06 11:03:00 Stafford, [facility] CBC WITH DIFF 2022-02-06 11:03:00 Stafford Lynne [facility] MAGNESIUM 2022-02-06 11:03:00 Stafford, Lynne [facility] BASIC METABOLIC PANEL 2022-02-06 11:03:00 Stafford, Lynne Guevara [facility] [place] (NA, K, CL, CO2, Medical Branch GLUCOSE, BUN, CREATININE, CA) CBC WITH DIFF 2022-02-06 11:03:00 Stafford, Lynne [facility] MAGNESIUM 2022-02-06 11:03:00 Stafford, Lynne [facility] BASIC METABOLIC PANEL 2022-02-06 11:03:00 Stafford, Lynne Paola [facility] [place] (NA, K, CL, CO2, Medical Branch GLUCOSE, BUN, CREATININE, CA) POCT GLUCOSE (AUTOMATED) 2022-02-06 02:58:00 MaryseEzra Uni versity of [facility] POCT GLUCOSE (AUTOMATED) 2022-02-06 02:58:00 MaryseEzra Uni versity of [facility] POCT GLUCOSE (AUTOMATED) 2022-02-06 02:58:00 Ezra Serra Uni versity of [facility] POCT GLUCOSE (AUTOMATED) 2022-02-06 01:40:00 MaryseEzra Uni versity of [facility] POCT GLUCOSE (AUTOMATED) 2022-02-06 01:40:00 MaryseEzra Uni versity of [facility] POCT GLUCOSE (AUTOMATED) 2022-02-06 01:40:00 Maryse Ezar Kortney versity of [facility] XR CHEST 1 VW 2022-02-05 23:35:00 Dalia [facility] XR CHEST 1 VW 2022-02-05 23:35:00 Dalia [facility] XR CHEST 1 VW 2022-02-05 23:35:00 Dalia [facility] POCT GLUCOSE (AUTOMATED) 2022-02-05 22:57:00 Maryse Ezra Sheets versity of [facility] POCT GLUCOSE (AUTOMATED) 2022-02-05 22:57:00 MaryseEzra Uni versity of [facility] POCT GLUCOSE (AUTOMATED) 2022-02-05 22:57:00 Maryse Ezra Kortney versity of [facility] IR BIOPSY LUNG 2022-02-05 21:52:00 Doretha [facility] PERCUTANEOUS OR Medical Branch MEDASTINUM WITH FLUORO IR BIOPSY LUNG 2022-02-05 21:52:00 Doretha [facility] PERCUTANEOUS OR Medical Branch MEDASTINUM WITH FLUORO IR BIOPSY LUNG 2022-02-05 21:52:00 Doretha [facility] PERCUTANEOUS OR Medical Branch MEDASTINUM WITH FLUORO IR BIOPSY LUNG 2022-02-05 21:52:00 Doretha [facility] PERCUTANEOUS OR Medical Branch MEDASTINUM WITH FLUORO CT LUMBAR SPINE W 2022-02-05 21:48[facility] THORACIC SPINE W 2022-02-05 21:48[facility] LUMBAR SPINE W 2022-02-05 21:48:03 Delroy, [facility] CONTRAST [facility] CT THORACIC SPINE W 2022-02-05 21:48:03 Delroy [facility] CONTRAST Medical Branch CT LUMBAR SPINE W 2022-02-05 21:48:03 Delroy, [facility] CONTRAST Medical Branch CT THORACIC SPINE W 2022-02-05 21:48:03 Delroy [facility] CONTRAST Medical Branch CYTO ORGAN 2022-02-05 21:14:00 Doretha [facility] ASPIRATION-FNA Medical Branch CYTO ORGAN 2022-02-05 21:14:00 Doretha [facility] ASPIRATION[facility] Medical Branch CYTO ORGAN 2022-02-05 21:14:00 Doretha [facility] ASPIRATION[facility] Medical Branch OSI CT SPINE THORACIC 2022-02-05 19:41:00 Jean-Pierre Garvey [facility] er Center OSI CT SPINE LUMBAR 2022-02-05 19:41:00 Jean-Pierre Garvey [facility] er Center POCT GLUCOSE (AUTOMATED) 2022-02-05 14:37:00 Ezra Serra [facility] POCT GLUCOSE (AUTOMATED) 2022-02-05 14:37:00 Ezra Serra [facility] POCT GLUCOSE (AUTOMATED) 2022-02-05 14:37:00 Ezra Serra [facility] CBC WITH DIFF 2022-02-05 09:10:00 Doretha [facility] BASIC METABOLIC PANEL 2022-02-05 09:10:00 Del Coyne [facility] (NA, K, CL, CO2, Medical Branch GLUCOSE, BUN, CREATININE, CA) CBC WITH DIFF 2022-02-05 09:10:00 Doretha [facility] MAGNESIUM 2022-02-05 09:10:00 [facility]-02-05 09:10:00 Doretha [facility] BASIC METABOLIC PANEL 2022-02-05 09:10:00 Del Coyne [facility] (NA, K, CL, CO2, Medical Branch GLUCOSE, BUN, CREATININE, CA) CBC WITH DIFF 2022-02-05 09:10:00 [facility] 2022-02-05 09:10:00 Doretha [facility] BASIC METABOLIC PANEL 2022-02-05 09:10:00 Del Coyne [facility] (NA, K, CL, CO2, Medical Branch GLUCOSE, BUN, CREATININE, CA) POCT GLUCOSE (AUTOMATED) 2022-02-05 02:57:00 Shauna Serrarick Uni versity [facility] POCT GLUCOSE (AUTOMATED) 2022-02-05 02:57:00 Maryse, Ezra Uni versity of [facility] POCT GLUCOSE (AUTOMATED) 2022-02-05 02:57:00 Shauna Serrarick Uni versity of [facility] POCT GLUCOSE (AUTOMATED) 2022-02-04 22:56:00 Shauna Serrarick Uni versity of [facility] POCT GLUCOSE (AUTOMATED) 2022-02-04 22:56:00 Maryse Ezra Uni versity of [facility] POCT GLUCOSE (AUTOMATED) 2022-02-04 22:56:[address] [facility] / INR 2022-02-04 20:16:[address] [facility] BASIC METABOLIC PANEL 2022-02-04 20:16:00 Del Coyne [facility] (NA, K, CL, CO2, Medical Branch GLUCOSE, BUN, CREATININE, CA) PROTHROMBIN TIME / INR 2022-02-04 20:16:[address] [facility] BASIC METABOLIC PANEL 2022-02-04 20:16:00 Del Coyne [facility] (NA, K, CL, CO2, Medical Branch GLUCOSE, BUN, CREATININE, CA) PROTHROMBIN TIME / INR 2022-02-04 20:16:[address] [facility] BASIC METABOLIC PANEL 2022-02-04 20:16:00 Del Coyne [facility] (NA, K, CL, CO2, Medical Branch GLUCOSE, BUN, CREATININE, CA) POCT GLUCOSE (AUTOMATED) 2022-02-04 18:07:00 [facility] PO[facility] GLUCOSE (AUTOMATED) 2022-02-04 18:07:00 Yeh, [facility] POCT GLUCOSE (AUTOMATED) 2022-02-04 18:07:00 Yecarol, [facility] POCT GLUCOSE (AUTOMATED) 2022-02-04 14:15:00 Yeh, [facility] POCT GLUCOSE (AUTOMATED) 2022-02-04 14:15:00 Ye, [facility] POCT GLUCOSE (AUTOMATED) 2022-02-04 14:15:00 [facility]ol, [facility] WITH DIFF 2022-02-04 10:12:00 Stafford, [facility] BASIC METABOLIC PANEL 2022-02-04 10:12:00 StaffordLynnese [facility] [place] (NA, K, CL, CO2, Medical Branch GLUCOSE, BUN, CREATININE, CA) MAGNESIUM 2022-02-04 10:12:00 Stafford, Lynne [facility] CBC WITH DIFF 2022-02-04 10:12:00 Stafford [facility] MAGNESIUM 2022-02-04 10:12:00 Stafford, [facility] BASIC METABOLIC PANEL 2022-02-04 10:12:00 StaffordLynne [facility] [place] (NA, K, CL, CO2, Medical Branch GLUCOSE, BUN, CREATININE, CA) CBC WITH DIFF 2022-02-04 10:12:00 Stafford, [facility] MAGNESIUM 2022-02-04 10:12:00 Stafford, [facility] BASIC METABOLIC PANEL 2022-02-04 10:12:00 StaffordLynne [facility] [place] (NA, K, CL, CO2, Medical Branch GLUCOSE, BUN, CREATININE, CA) URINE CULTURE 2022-02-04 09:45:00 Ameri, [facility] URINE CULTURE 2022-02-04 09:45:00 Amsabino [facility] URINE CULTURE 2022-02-04 09:45:00 Amsabino [facility] URINALYSIS 2022-02-04 09:44:00 Amsabino [facility] URINALYSIS 2022-02-04 09:44:00 Amsabino [facility] URINALYSIS 2022-02-04 09:44:00 Amsabino [facility] POCT GLUCOSE (AUTOMATED) 2022-02-04 02:43:00 Yeh [facility] POCT GLUCOSE (AUTOMATED) 2022-02-04 02:43:00 Yeh, [facility]SE (AUTOMATED) 2022-02-04 02:43:00 Yeh, [facility] POCT GLUCOSE (AUTOMATED) 2022-02-03 22:27:00 Yeh, [facility] PO[facility] GLUCOSE (AUTOMATED) 2022-02-03 22:27:00 Yeh, [facility] POCT GLUCOSE (AUTOMATED) 2022-02-03 22:27:00 Yeh, [facility] CT THORAX WO CONTRAST 2022-02-03 21:30:43 Stafford, Lynne Paola [facility] CT THORAX WO CONTRAST 2022-02-03 21:30:43 Stafford, Lynne Paola [facility] [place] [facility] [place] CT THORAX WO CONTRAST 2022-02-03 21:30:43 Stafford, Lynne Paola [facility] CT THORACIC SPINE WO 2022-02-03 21:30:07 Stafford, Lynne Paola [facility] [place] CONTRAST Medical Branch CT THORACIC SPINE WO 2022-02-03 21:30:07 Stafford, Lynne Paola [facility] [place] CONTRAST Medical Branch CT THORACIC SPINE WO 2022-02-03 21:30:07 Stafford, Lynne Paola [facility] [place] CONTRAST Medical Branch CT LUMBAR SPINE WO 2022-02-03 21:29:26 Stafford, Lynne Paola [facility] CT LUMBAR SPINE WO 2022-02-03 21:29:26 Stafford, [facility] CT LUMBAR SPINE WO 2022-02-03 21:29:26 Stafford, Lynne [facility] POCT GLUCOSE (AUTOMATED) 2022-02-03 17:27:00 Yeh, [facility] POCT GLUCOSE (AUTOMATED) 2022-02-03 17:27:00 [facility]ley [facility] POCT GLUCOSE (AUTOMATED) 2022-02-03 17:27:00 Yeh, [facility] PO[facility]UCOSE (AUTOMATED) 2022-02-03 14:29:00 [facility]ley [facility] POCT GLUCOSE (AUTOMATED) 2022-02-03 14:29:00 [facility] PO[facility] GLUCOSE (AUTOMATED) 2022-02-03 14:29:00 YeK[facility]ley [facility] MRSA / MSSA SCREEN BY 2022-02-03 11:13:00 [facility] / MSSA SCREEN BY 2022-02-03 11:13:00 Roddy [facility] MRSA / MSSA SCREEN BY 2022-02-03 11:13:00 Roddy [facility] SEDIMENTATION RATE 2022-02-03 11:12:00 Fabien Guzmán [facility] CBC WITH DIFF 2022-02-03 11:12:00 Roddy [facility] MAGNESIUM 2022-02-03 11:12:00 Roddy [facility] CBC WITH DIFF 2022-02-03 11:12:00 [facility] BASIC METABOLIC PANEL 2022-02-03 11:12:00 Roddy [facility] (NA, K, CL, CO2, Medical Branch GLUCOSE, BUN, CREATININE, CA) SEDIMENTATION RATE 2022-02-03 11:12:[address] [facility] Medical Branch MAGNESIUM 2022-02-03 11:12:00 Amsabino [facility] BASIC METABOLIC PANEL 2022-02-03 11:12:00 Amsabino [facility] (NA, K, CL, CO2, Medical Branch GLUCOSE, BUN, CREATININE, CA) SEDIMENTATION RATE 2022-02-03 11:12:00 Arielle [facility] CBC WITH DIFF 2022-02-03 11:12:00 Roddy [facility] MAGNESIUM 2022-02-03 11:12:00 Amsabino [facility] BASIC METABOLIC PANEL 2022-02-03 11:12:00 Amsabino [facility] (NA, K, CL, CO2, Medical Branch GLUCOSE, BUN, CREATININE, CA) XR BONE SURVEY 2022-02-03 10:10:00 Roddy [facility] XR BONE SURVEY 2022-02-03 10:10:00 Roddy [facility] XR BONE SURVEY 2022-02-03 10:10:00 Roddy [facility] LIPID PANEL 2022-02-03 05:18:00 Amsabino [facility] ([id number])(TOTAL Medical Branch CHOLESTEROL, TRIGLYCERIDES, HDL) CBC WITH DIFF 2022-02-03 05:18:00 Roddy [facility] GLYCOSYLATED HEMOGLOBIN 2022-02-03 05:18:[address] [facility] (A1C) Medical Branch CBC WITH DIFF 2022-02-03 05:18:00 Amsabino [facility] BASIC METABOLIC PANEL 2022-02-03 05:18:00 Amsabino [facility] (NA, K, CL, CO2, Medical Branch GLUCOSE, BUN, CREATININE, CA) PHOSPHORUS 2022-02-03 05:18:00 Amsabino [facility] GLYCOSYLATED HEMOGLOBIN 2022-02-03 05:18:00 [facility] LIPID PANEL 2022-02-03 05:18:00 Roddy [facility] ([id number])(TOTAL Medical Branch CHOLESTEROL, TRIGLYCERIDES, HDL) BLOOD CULTURE SCREEN 2022-02-03 05:18:00 Roddy [facility] C-REACTIVE PROTEIN 2022-02-03 05:18[facility]EN 2022-02-03 05:18:00 Roddy [facility] PHOSPHORUS 2022-02-03 05:18:00 Amsabino [facility] C-REACTIVE PROTEIN 2022-02-03 05:18:[facility] BASIC MET[facility]OLIC PANEL 2022-02-03 05:18[facility] ([facility], [facility], CL, CO2, Medical Branch GLUCOSE, BUN, CREATININE, CA) LIPID PANEL 2022-02-03 05:18:00 Roddy [facility] ([id number])(TOTAL Medical Branch CHOLESTEROL, TRIGLYCERIDES, HDL) CBC WITH DIFF 2022-02-03 05:18:00 [facility] GLYCOSYLATED HEMOGLOBIN 2022-02-03 05:18:00 [facility] (A[facility] BLOOD CULTURE SCREEN 2022-02-03 05:18:00 Roddy [facility] PHOSPHORUS 2022-02-03 05:18:00 Roddy [facility] C-REACTIVE PROTEIN 2022-02-03 05:18:00 [facility] BASIC METABOLIC PANEL 2022-02-03 05:18[facility] ([facility], K, CL, CO2, Medical Branch GLUCOSE, BUN, CREATININE, CA) OSI CT SPINE THORACIC 2022-02-02 19:41:00 Jean-Pierre Garvey [facility] OSI CT SPINE LUMBAR 2022-02-02 19:41:00 Jean-Pierre Garvey [facility] OSI CT CHEST 2022-02-02 19:41:00 Jean-Pierre Garvey [facility] er Center OSI MRI SPINE LUMBAR 2022-01-30 21:27:00 Jean-Pierre Garvey [facility] er Center OSI CHEST 2022-01-30 21:27:00 Jean-Pierre Garvey [facility] OSI CT CHEST ABDOMEN 2022-01-30 21:26:00 Jean-Pierre Garvey [facility] PELVIS [facility] OSI CT ABDOMEN AND 2021-12-25 20:27:00 [facility] XR, knee, 3 view 2021 00:00:00 Jennifer [facility] Total Replacement of 2021-11-07 00:00:00 Jennifer Orthopedic Right Knee Joint Sports Medicine [id number] 2021-11-07 00:00:00 CIRILO.Kathi [facility] XR, knee, 4 or more view 2021-09-19 00:00:00 Kingsley bondsa [facility] POCT GLUCOSE (AUTOMATED) 2021-06-21 21:08:00 Mitch [facility] PO[facility] GLUCOSE (AUTOMATED) 2021-06-21 18:06:00 Mitch Sherman [facility] POCT GLUCOSE (AUTOMATED) 2021-06-21 13:21:00 Mitch Sherman [facility] POCT GLUCOSE (AUTOMATED) 2021-06-21 03:04:00 Mitch Sherman [facility] XR CHEST 1 VW 2021-06-20 21:12:00 [facility] POCT GLUCOSE (AUTOMATED) 2021-06-20 20:52:00 Mitch Sherman Uni versity [facility] POCT GLUCOSE (AUTOMATED) 2021-06-20 16:29:00 Mitch Sherman Uni versity [facility] POCT GLUCOSE (AUTOMATED) 2021-06-20 13:26:00 Mitch Sherman [facility] [place] [facility] BASIC METABOLIC PANEL 2021-06-20 09:37:00 Channing Degroot [facility] (NA, K, CL, CO2, Medical Branch GLUCOSE, BUN, CREATININE, CA) CBC WITH DIFF 2021-06-20 09:37:00 Zane Channing [place] o [facility] POCT GLUCOSE (AUTOMATED) 2021-06-20 02:29:00 ShermanMaite penaarg [facility] POCT GLUCOSE (AUTOMATED) 2021-06-19 21:46:00 Sherman, Mitch [facility] POCT GLUCOSE (AUTOMATED) 2021-06-19 21:46:00 John Mitch [facility] VANCOMYCIN TROUGH 2021-06-19 19:20:00 Abu Sean Ramos [facility] VANCOMYCIN TROUGH 2021-06-19 19:20:00 Abu Sean Ramos [facility] POCT GLUCOSE (AUTOMATED) 2021-06-19 16:52:00 Sherman, Mitch [facility] POCT GLUCOSE (AUTOMATED) 2021-06-19 16:52:00 Sherman, Mitch [facility] POCT GLUCOSE (AUTOMATED) 2021-06-19 13:08:00 Sherman, Mitch [facility] POCT GLUCOSE (AUTOMATED) 2021-06-19 13:08:00 John Mitch [facility] BASIC METABOLIC PANEL 2021-06-19 09:16:[address] [facility] [place] (NA, K, CL, CO2, Medical Branch GLUCOSE, BUN, CREATININE, CA) CBC WITH DIFF 2021-06-19 09:16:00 Abu Sean Ramos [facility] BASIC METABOLIC PANEL 2021-06-19 09:16:[address] [facility] [place] (NA, K, CL, CO2, Medical Branch GLUCOSE, BUN, CREATININE, CA) CBC WITH DIFF 2021-06-19 09:16:00 Abu Sean Ramos [facility] POCT GLUCOSE (AUTOMATED) 2021-06-19 00:56:00 Sherman, Mitch [facility] POCT GLUCOSE (AUTOMATED) 2021-06-19 00:56:00 John Mitch Uni versity [facility] POCT GLUCOSE (AUTOMATED) 2021-06-18 22:26:00 John Mitch [facility] POCT GLUCOSE (AUTOMATED) 2021-06-18 22:26:00 John Mitch [facility] BODY FLUID DIRECT COUNT 2021-06-18 22:19:00 Bong Morris [facility] [employer] CULTURE 2021-06-18 22:19:00 Arturo [facility] o f [facility] BODY FLUID 2021-06-18 22:19:00 Arturo [facility] o [facility] CULTURE(AEROBIC/ANAEROBI Medical Branch C) BODY FLUID DIRECT COUNT 2021-06-18 22:19:00 Arturo [facility] CULTURE 2021-06-18 22:19:00 Arturo [facility] o f [facility] BODY FLUID 2021-06-18 22:19:00 Arturo [facility] CULTURE(AEROBIC/ANAEROBI Medical Branch C) ASPIRATION JOINT LOWER 2021-06-18 21:03:00 Bong Morris [facility] EXTREMITY [facility] [place] ASPIRATION JOINT LOWER 2021-06-18 21:03:00 Bong Morris [facility] EXTREMITY [facility] [place] OSI MRI LOWER EXT 2021-06-18 18:40:00 Jean-Pierre Garvey Uni [facility] POCT GLUCOSE (AUTOMATED) 2021-06-18 17:38:00 Abu Sean Ramos [facility] POCT GLUCOSE (AUTOMATED) 2021-06-18 17:38:00 Abu Sean Ramos [facility] MR KNEE RIGHT W WO 2021-06-18 17:08:31 Mikhail Goodwin [facility] CONTRAST [facility] MR KNEE RIGHT W WO 2021-06-18 17:08:31 Mikhail Goodwin [facility] CONTRAST [facility] POCT GLUCOSE (AUTOMATED) 2021-06-18 12:58:00 AbSean Mann [facility] POCT GLUCOSE (AUTOMATED) 2021-06-18 12:58:00 Sean Goode [facility] POCT GLUCOSE (AUTOMATED) 2021-06-18 06:44:00 Elvis Ramos [facility] POCT GLUCOSE (AUTOMATED) 2021-06-18 06:44:00 Sean Goode [facility] BLOOD CULTURE SCREEN 2021-06-18 06:20:00 Mikhail Goodwin [facility] BLOOD CULTURE SCREEN 2021-06-18 06:20:00 Mikhail Goodwin [facility] [place] ARTHROCENTESIS 2021-06-18 06:02:02 Mikhail Goodwin [facility] ASPIR&/INJ [facility] JT/BURSA W/O US [place] ARTHROCENTESIS 2021-06-18 06:02:02 Mikhail Goodwin [facility] ASPIR&/INJ [facility] JT/BURSA W/O US URIC ACID 2021-06-18 03:51:00 Mikhail Goodwin [facility] C-REACTIVE PROTEIN 2021-06-18 03:51:00 Mikhail Goodwin [facility] BASIC METABOLIC PANEL 2021-06-18 03:51:00 Mikhail Goodwin [facility] (NA, K, CL, CO2, [facility] GLUCOSE, BUN, CREATININE, CA) SEDIMENTATION RATE 2021-06-18 03:51:00 Mikhail Goodwin [facility] CBC WITH DIFF 2021-06-18 03:51:00 Mikhail Goodwin [facility] URIC ACID 2021-06-18 03:51:00 Mikhail Goodwin [facility] C-REACTIVE PROTEIN 2021-06-18 03:51:00 Mikhail Goodwin [facility] BASIC METABOLIC PANEL 2021-06-18 03:51:00 Mikhail Goodwin [facility] (NA, K, CL, CO2, [facility] GLUCOSE, BUN, CREATININE, CA) SEDIMENTATION RATE 2021-06-18 03:51:00 Mikhail Goodwin [facility] CBC WITH DIFF 2021-06-18 03:51:00 Mikhail Goodwin [facility] XR KNEE <3 VW RIGHT 2021-06-18 03:35:00 Mikhail Goodwin [facility] XR KNEE <3 VW RIGHT 2021-06-18 03:35:00 Mikhail Goodwin [facility] CONSENT/REFUSAL FOR 2021-06-18 03:05:21 Doctor Unassigned, No [facility] [place] [facility] CONSENT/REFUSAL FOR 2021-06-18 03:05:21 Doctor Unassigned, No [facility] [place] [facility] HOSPITAL ADMISSION 2021-06-17 05:01:00 Doctor Unassigned, No [facility] XR KNEE 4+ VW RIGHT 2021-06-17 03:24:13 [facility] CBC WITH PLATELET AND 2021-06-17 02:40:00 [facility] DIFFERENTIAL COMPREHENSIVE METABOLIC 2021-06-17 02:40:00 [facility] PANEL SEDIMENTATION RATE 2021-06-17 02:40:00 Bharat Chawla [facility] ESTIMATED GFR 2021-06-17 02:40:00 [facility] C-REACTIVE PROTEIN 2021-06-17 02:40:00 [facility] CBC WITH PLATELET AND 2021-06-10 02:44:00 Maico, Graham [facility] DIFFERENTIAL SEDIMENTATION RATE 2021-06-10 02:44:00 Maico, Graham [facility] BASIC METABOLIC PANEL 2021-06-10 02:44:00 Maico, Graham H [facility] URIC ACID LEVEL 2021-06-10 02:44:00 Maico, Graham [facility] ESTIMATED GFR 2021-06-10 02:44:00 Maico, Graham [facility] XR KNEE 4+ VW RIGHT 2021-06-10 01:48:29 Maico, Graham H [facility] C-REACTIVE PROTEIN 2021-06-09 20:54:00 Kymberly Hastings [facility] CELL COUNT AND 2021-05-26 17:00:00 [facility] DIFFERENTIAL, BODY FLUID [place] ARTHROCENTESIS 2021-05-26 16:00:00 [facility] ASPIR&/INJ MAJOR JT/BURSA W/O US XR KNEE 4+ VW RIGHT 2021-05-26 15:43:26 [facility] CBC WITH PLATELET AND 2021-03-29 19:10:00 [facility] DIFFERENTIAL HEMOGLOBIN A1C 2021-03-29 19:10:00 [facility] MICROALBUMIN / 2021-03-29 19:10:00 [facility] CREATININE URINE RATIO COMPREHENSIVE METABOLIC 2021-03-29 19:10:00 [facility] PANEL WITH ADJUSTED CALCIUM LIPID PANEL 2021-03-29 19:10:00 [facility] PSA, TOTAL WITH REFLEX 2021-03-29 19:10:00 [facility] TO FREE XR KNEE 1 OR 2 VW RIGHT 2021-03-29 18:39:24 [facility] COLOGUARD 2021-02-17 01:12:00 [facility] HEMOGLOBIN A1C 2021-01-31 18:09:00 [facility] MICROALBUMIN / 2021-01-31 18:09:00 [facility] CREATININE URINE RATIO COMPREHENSIVE METABOLIC 2021-01-31 18:09:00 [facility] PANEL WITH ADJUSTED CALCIUM photo, eye, retina 2016-04-24 00:00:00 Zoran Blancas [facility] X-RAY OF SHOULDER 2 VIEW 2016-01-30 00:00:00 [facility] MRI of foot<sup>1</sup> 2015-02-18 06:00:00 Keegan Rios Emergency department 2013-04-24 06:00:00 Ernesto Rios visit for the evaluation and management of a patient, which requires these 3 rodriguez components: A detailed history; A detailed examination; and Medical decision making of moderate complexity. Counseling and/or coordination of care with o [facility] operation<sup>2</sup> [facility]sup[facility]</sup> Tonsillectomy [facility] Plan of Care Planned Activity Planned Date Details Comments Source Future Scheduled 2022-03-30 Hepatitis C screening [facility] 07:24:29 (procedure) [code = Hospital [id number]] Future Scheduled 2022-03-30 COLONOSCOPY SCREENING [facility] Test 07:24:29 [code = COLONOSCOPY Hospital SCREENING] Future Scheduled 2022-03-30 SHINGLES VACCINES (1 Met [facility] Test 07:24:29 of 2) [code = Hospital SHINGLES VACCINES (1 of 2)] Future Scheduled 2022-03-30 65+ PNEUMOCOCC[address] Methodi [facility] Test 07:24:29 VACCINE (3 - PPSV23 Hospital if available, else PCV20) [code = 65+ PNEUMOCOCCAL VACCINE (3 - PPSV23 if available, else PCV20)] Future Scheduled 2022-03-30 DIABETIC FOOT EXAM [facility] Test 07:24:29 [code = DIABETIC FOOT Hospit al EXAM] Future Scheduled 2022-03-30 INFLUENZA VACCINE Method ist Test 07:24:29 [code = INFLUENZA Hospital VACCINE] Future Scheduled 2022-03-30 DIABETES: RETINAL EYE [facility] 07:24:29 EXAM [code = Hospital DIABETES: RETINAL EYE EXAM] Future Scheduled 2022-03-30 Hepatitis C screening [facility] Test 07:24:29 (procedure) [code = Hospital [id number]] Future Scheduled 2022-03-30 COLONOSCOPY SCREENING [facility] Test 07:24:29 [code = COLONOSCOPY Hospital SCREENING] Future Scheduled 2022-03-30 SHINGLES VACCINES (1 Met [facility] Test 07:24:29 of 2) [code = Hospital SHINGLES VACCINES (1 of 2)] Future Scheduled 2022-03-30 65+ PNEUMOCOCCAL Methodi st Test 07:24:29 VACCINE (3 - PPSV23 Hospital if available, else PCV20) [code = 65+ PNEUMOCOCCAL VACCINE (3 - PPSV23 if available, else PCV20)] Future Scheduled 2022-03-30 DIABETIC FOOT EXAM [facility] Test 07:24:29 [code = DIABETIC FOOT Hospit al EXAM] Future Scheduled 2022-03-30 INFLUENZA VACCINE Method ist Test 07:24:29 [code = INFLUENZA Hospital VACCINE] Future Scheduled 2022-03-30 DIABETES: RETINAL EYE [facility] Test 07:24:29 EXAM [code = Hospital DIABETES: RETINAL EYE EXAM] Future Scheduled 2022-03-30 Hepatitis C screening [facility] Test 07:24:29 (procedure) [code = Hospital [id number]] Future Scheduled 2022-03-30 COLONOSCOPY SCREENING [facility] Test 07:24:29 [code = COLONOSCOPY Hospital SCREENING] Future Scheduled 2022-03-30 SHINGLES VACCINES (1 Met [facility]ist Test 07:24:29 of 2) [code = Hospital SHINGLES VACCINES (1 of 2)] Future Scheduled 2022-03-30 65+ PNEUMOCOCC[address] Methodi [facility] Test 07:24:29 VACCINE (3 - PPSV23 Hospital if available, else PCV20) [code = 65+ PNEUMOCOCCAL VACCINE (3 - PPSV23 if available, else PCV20)] Future Scheduled 2022-03-30 DIABETIC FOOT EXAM [facility] Test 07:24:29 [code = DIABETIC FOOT Hospit al EXAM] Future Scheduled 2022-03-30 INFLUENZA VACCINE Method ist Test 07:24:29 [code = INFLUENZA Hospital VACCINE] Future Scheduled 2022-03-30 DIABETES: RETINAL EYE [facility] Test 07:24:29 EXAM [code = Hospital DIABETES: RETINAL EYE EXAM] Future Scheduled 2022-03-24 Hepatitis C screening [facility] Test 12:38:49 (procedure) [code = Hospital [id number]] Future Scheduled 2022-03-24 COLONOSCOPY SCREENING [facility] Test 12:38:49 [code = COLONOSCOPY Hospital SCREENING] Future Scheduled 2022-03-24 65+ PNEUMOCOCCAL Methodi st Test 12:38:49 VACCINE (3 - PPSV23 Hospital if available, else PCV20) [code = 65+ PNEUMOCOCCAL VACCINE (3 - PPSV23 if available, else PCV20)] Future Scheduled 2022-03-24 DIABETIC FOOT EXAM [facility] Test 12:38:49 [code = DIABETIC FOOT Hospit al EXAM] Future Scheduled 2022-03-24 INFLUENZA VACCINE Method ist Test 12:38:49 [code = INFLUENZA Hospital VACCINE] Future Scheduled 2022-03-24 DIABETES: RETINAL EYE [facility] Test 12:38:49 EXAM [code = Hospital DIABETES: RETINAL EYE EXAM] Future Scheduled 2022-03-24 SHINGLES VACCINES (1 Postponed from M ethodist Test 12:38:49 of 2) [code = 11/30/1999 Hospital SHINGLES VACCINES (1 (Patient of 2)] Refused) Future Scheduled 2022-02-20 Hepatitis C screening [facility] Test 15:27:15 (procedure) [code = Hospital [id number]] Future Scheduled 2022-02-20 COLONOSCOPY SCREENING [facility] Test 15:27:15 [code = COLONOSCOPY Hospital SCREENING] Future Scheduled 2022-02-20 65+ PNEUMOCOCC[address] Methodi st Test 15:27:15 VACCINE (3 - PPSV23 Hospital if available, else PCV20) [code = 65+ PNEUMOCOCCAL VACCINE (3 - PPSV23 if available, else PCV20)] Future Scheduled 2022-02-20 DIABETIC FOOT EXAM Metho dist Test 15:27:15 [code = DIABETIC FOOT Hospit al EXAM] Future Scheduled 2022-02-20 INFLUENZA VACCINE Method ist Test 15:27:15 [code = INFLUENZA Hospital VACCINE] Future Scheduled 2022-02-20 DIABETES: RETINAL EYE [facility] Test 15:27:15 EXAM [code = Hospital DIABETES: RETINAL EYE EXAM] Future Scheduled 2022-02-20 SHINGLES VACCINES (1 Postponed from M ethodist Test 15:27:15 of 2) [code = 11/30/1999 Hospital SHINGLES VACCINES (1 (Patient of 2)] Refused) Future Scheduled 2022-01-30 HEPATITIS B VACCINES [facility] Test 17:23:41 (1 of 3 - 3-dose Hospital series) [code = HEPATITIS B VACCINES (1 of 3 - 3-dose series)] Future Scheduled 2022-01-30 Hepatitis C screening [facility] Test 17:23:41 (procedure) [code = Hospital [id number]] Future Scheduled 2022-01-30 COLONOSCOPY SCREENING [facility] [...] Test 17:23:41 of 2) [code = 11/30/1999 Hospital SHINGLES VACCINES (1 (Patient of 2)] Refused) Future Scheduled 2022-01-30 HEPATITIS B VACCINES [facility] Test 17:23:41 (1 of 3 - 3-dose Hospital series) [code = HEPATITIS B VACCINES (1 of 3 - 3-dose series)] Future Scheduled 2022-01-30 Hepatitis C screening [facility] Test 17:23:41 (procedure) [code = Hospital [id number]] Future Scheduled 2022-01-30 COLONOSCOPY SCREENING [facility] [...] Test 17:23:41 of 2) [code = 11/30/1999 Hospital SHINGLES VACCINES (1 (Patient of 2)] Refused) Future Scheduled 2022-01-30 HEPATITIS B VACCINES [facility] Test 17:23:41 (1 of 3 - 3-dose Hospital series) [code = HEPATITIS B VACCINES (1 of 3 - 3-dose series)] Future Scheduled 2022-01-30 Hepatitis C screening [facility] Test 17:23:41 (procedure) [code = Hospital [id number]] Future Scheduled 2022-01-30 COLONOSCOPY SCREENING Me [facility] [...] Test 17:23:41 of 2) [code = 11/30/1999 Hospital SHINGLES VACCINES (1 (Patient of 2)] Refused) Future Scheduled 2022-01-30 HEPATITIS B VACCINES [facility] Test 17:23:41 (1 of 3 - 3-dose Hospital series) [code = HEPATITIS B VACCINES (1 of 3 - 3-dose series)] Future Scheduled 2022-01-30 Hepatitis C screening [facility] Test 17:23:41 (procedure) [code = Hospital [id number]] Future Scheduled 2022-01-30 COLONOSCOPY SCREENING Me [facility]od[facility] [...] Test 17:23:41 of 2) [code = 11/30/1999 Hospital SHINGLES VACCINES (1 (Patient of 2)] Refused) Future Scheduled 2022-01-30 HEPATITIS B VACCINES [facility] Test 17:23:41 (1 of 3 - 3-dose Hospital series) [code = HEPATITIS B VACCINES (1 of 3 - 3-dose series)] Future Scheduled 2022-01-30 Hepatitis C screening [facility] Test 17:23:41 (procedure) [code = Hospital [id number]] Future Scheduled 2022-01-30 COLONOSCOPY SCREENING Me [facility]odist [...] Test 17:23:41 of 2) [code = 11/30/1999 Hospital SHINGLES VACCINES (1 (Patient of 2)] Refused) Future Scheduled 2022-01-30 HEPATITIS B VACCINES [facility] Test 17:23:41 (1 of 3 - 3-dose Hospital series) [code = HEPATITIS B VACCINES (1 of 3 - 3-dose series)] Future Scheduled 2022-01-30 Hepatitis C screening [facility] Test 17:23:41 (procedure) [code = Hospital [id number]] Future Scheduled 2022-01-30 COLONOSCOPY SCREENING Me [facility]ist [...] Test 17:23:41 of 2) [code = 11/30/1999 Hospital SHINGLES VACCINES (1 (Patient of 2)] Refused) Future Scheduled 2022-01-30 HEPATITIS B VACCINES [facility] Test 17:23:41 (1 of 3 - 3-dose Hospital series) [code = HEPATITIS B VACCINES (1 of 3 - 3-dose series)] Future Scheduled 2022-01-30 Hepatitis C screening [facility] Test 17:23:41 (procedure) [code = Hospital [id number]] Future Scheduled 2022-01-30 COLONOSCOPY SCREENING Me [facility]odist [...] Test 17:23:41 of 2) [code = 11/30/1999 Hospital SHINGLES VACCINES (1 (Patient of 2)] Refused) Future Scheduled I discussed at this Aza ea Test time the patient has Orthope dic [...] 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 I discussed that risk factors for [...] symptom relief with conservative management in] Instructions [facility] Instructions [facility] Encounters Start End Encounter Admission Attending Care Care Encounter Source Date/Time Date/Time Type Type Clinicians Facility Department ID 2022-03-20 Inpatient [facility] S[facility] [id number] Univers 07:45:50 CHINYERE LOZANO i [facility] 2022-03-09 Inpatient [facility] SNS [id number] Univers 16:54:24 CHINYERE LOZANO i [facility] 2022-03-09 Outpatient [facility] [id number] [place] 09:36:59 [id number] [facility] 2022-03-08 Outpatient [facility] [id number] PR 16:30:[id number] [place] [address] 2022-01-31 Outpatient [facility] [id number] PR 05:04:35 [id number] [facility] 2022-01-17 Outpatient Guru, STLMLC STLMLC [id number] Common 13:02:02 Jean-Pierre [address] [place] [address] 2022-01-15 Outpatient STLMLC STLMLC [id number] Common 11:50:[id number] [place] [address] 2021-11-13 Inpatient Valentina Vilchis [facility] SURG [id number] [facility] 12:11:00 [id number] [facility] 2021-09-30 Outpatient STLMLC STLMLC [id number] Common 09:19:01 [facility] 2021-09-14 Outpatient STLMLC STLMLC [id number] Common 08:24:02 [id number] [facility] 2021-09-13 Outpatient STLMLC STLMLC [id number] Common 14:49:03 [facility] 2021-03-30 Outpatient 3 Bernadinejose antoniocindy, ENCPL AML [id number] [facility] 12:34:20 Saul [facility] [place] [facility] 2021-03-30 Outpatient 3 [id number] ENC[facility] AML [id number] [facility] 12:34:05 0723 [facility] [place] 2021-03-30 Outpatient 3 [id number] ENCPL REF [id number] [facility] 12:31:44 0717 [facility] [place] 2021-03-30 Outpatient 3 [id number] ENCPL REF [id number] [facility] 12:31:28 0716 [facility] Teri emiliano 2022-03-30 2022-04-12 Inpatient E YESSICA TW MED 7507 T 04:31:00 19:10:00 DARLENE 2022-03-27 2022-03-27 Telephone Demetrius RAYO 1.2.375.158 [id number] Univers 00:00:00 00:00:00 Chinyere DUKEY 350.1.13.10 it y of HOSPITAL 4.2.7.2.686 Noe as [phone] [address] 2022-03-23 2022-03-23 [facility] 1.2.256.136 [id number] Univers 00:00:00 00:00:00 Chinyere HEALTH 350.1.13.10 [place] [phone] [address] OFFICE BUILDING 2022-03-23 2022-03-23 [facility] 1.2.261.063 [id number] Univers 00:00:00 00:00:00 Chinyere HEALTH 350.1.13.10 [place] [phone] [address] OFFICE BUILDING 2022-03-22 2022-03-22 [facility] 1.2.840.114 [id number] Univers 06:45:50 23:59:00 Encounter Chinyere Huerta HEALTH 350.1.13.10 it[place] [id number] [address] 2022-03-22 2022-03-22 Outpatient R CHINYERE LOZANO [facility] 1 [id number] Univers 06:45:28 23:59:00 CHINYERE LOZANO [facility] 2022-03-22 2022-03-22 [facility] 1.2.840.114 [id number] Univers 06:45:28 23:59:00 Encounter Chinyere Huerta HEALTH 350.1.13.10 it[place] [phone] [facility] [address] 2022-03-21 2022-03-21 Telephone [facility] 1.2.929.487 [id number] Univers 00:00:00 00:00:00 Chinyere HEALTH 350.1.13.10 [place] [id number] [address] OFFICE BUILDING 2022-03-20 2022-03-20 Telephone [facility] 1.2.244.477 [id number] Univers 00:00:00 00:00:00 Chinyere HEALTH 350.1.13.10 [place] [id number] [address] OFFICE BUILDING 2022-03-16 2022-03-16 Outpatient R LIZ MOSS [facility] 1 [id number] Univers 10:00:00 10:00:00 LIZ MOSS [facility] 2022-03-16 2022-03-16 [facility] 1.2.840.114 [id number] Univers 08:30:00 09:00:00 Visit [facility] 350.1.13.10 it y of [place] - [phone] [facility] [address] 2022-03-16 2022-03-16 Outpatient R LIZ MOSS [facility] 1 [id number] Univers 08:30:00 08:30:00 LIZ MOSS [facility] 2022-03-16 2022-03-16 Telephone RAYO Lozano 1.2.605.392 [id number] Univers 00:00:00 00:00:00 Chinyere LOGAN 350.1.13.10 it y of HOSPITAL 4.2.7.2.686 Noe as [phone] [facility] [address] 2022-03-16 2022-03-16 Prep For RAYO Lozano 1.2.840.114 [id number] Univers 00:00:00 00:00:00 Surgery Chinyere LOGAN 350.1.13.10 it y of HOSPITAL 4.2.7.2.686 [place]e as [phone] [facility] [address] 2022-03-14 2022-03-14 Outpatient GERTRUDERAYO [facility] [id number] PR 14:15:00 14:15:00 Health 2022-03-09 2022-03-09 Hospital [facility] 1.2.840.114 [id number] Univers 16:00:00 23:59:00 Encounter [facility] 350.1.13.10 it[place] [phone] [facility] [address] (CLC) 2022-03-09 2022-03-09 Outpatient R CHINYERE LOZANO [facility] 1 [id number] Univers 14:15:00 15:58:36 CHINYERE LOZANO ity [facility] 2022-03-09 2022-03-09 Office [facility] 1.2.840.114 [id number] Univers 14:15:00 15:58:36 Visit [facility] 350.1.13.10 it [place] [id number] [facility] [address] OFFICE BUILDING 2022-03-09 2022-03-09 Orders Doctor RAYO 1.2.840.114 [id number] Univers 00:00:00 00:00:00 Only Unassigned, LOGAN 350.1.13.10 ity of [place] [facility] 4.2.7.2.686 Noe as [phone] [facility] [address] 2022-03-08 2022-03-08 Ancillary EL 1.2.840.1 [id number] 1101 [id number] Univers 20:15:00 20:20:00 Procedure 73574.1.1 it y of 3.412.2.7 Nnamdi .3Caty503662 MD Reynoso [facility] 2022-03-08 2022-03-08 Ancillary 1.2.840.1 [id number] 1101 [id number] Univers 20:15:00 20:20:00 Procedure 19987.1.1 it y of 3.412.2.7 Nnamdi .3Caty814143Terrell Reynoso [facility] 2022-03-08 2022-03-08 Ancillary EL 1.2.840.1 [id number] 1101 [id number] Univers 20:10:00 20:15:00 Procedure 70298.1.1 it y of 3.412.2.7 [place] .3.492564 MD Byrne8 [facility] 2022-03-08 2022-03-08 Ancillary 1.2.840.1 [id number] 1101 [id number] Univers 20:10:00 20:15:00 Procedure 48704.1.1 it y of 3.412.2.7 [place] .3.596031 MD Byrne8 [facility] 2022-03-08 2022-03-08 Ancillary EL 1.2.840.1 [id number] 1101 [id number] Univers 20:05:00 20:10:00 Procedure 36047.1.1 it y of 3.412.2.7 [place] .3.661921 MD Byrne8 [facility] 2022-03-08 2022-03-08 Ancillary 1.2.840.1 [id number] 1101 [id number] Univers 20:05:00 20:10:00 Procedure 96445.1.1 it y of 3.412.2.7 [place] .3.279316 MD Byrne8 [facility] 2022-03-08 2022-03-08 Ancillary EL 1.2.840.1 [id number] 1101 390065 Univers 20:00:00 20:05:00 Procedure 72454.1.1 it y of 3.412.2.7 [place] .3.716120 MD Byrne8 [facility] 2022-03-08 2022-03-08 Ancillary 1.2.840.1 [id number] 1101 [id number] Univers 20:00:00 20:05:00 Procedure 02570.1.1 it y of 3.412.2.7 [place] .3.799768 MD Byrne8 [facility] 2022-03-08 2022-03-08 Telephone Jessee CabreraIT 1.2.840.11 4 [id number] Univers 00:00:00 00:00:00 Y HEALTH 350.1.13.10 i ty of CL[place] [id number] [facility] [address] 2022-03-02 2022-03-02 Orders Doctor RAYO 1.2.840.114 [id number] Univers 00:00:00 00:00:00 Only Unassigned, LOGAN 350.1.13.10 ity of [place] [facility] 4.2.7.2.686 Noe as [phone] [facility] [address] 2022-02-21 2022-02-21 Multidisci RAI Gagnon 1.2.840.114 9 [id number] Univers 00:00:00 00:00:00 plinary Vihitha H 350.1.13.10 it y of Conference BUILDING 4.2.7.2.686 [place] 530.9834134 [facility] [address] 2022-02-19 2022-02-19 Ancillary EL 1.2.840.1 [id number] 1100 [id number] Univers 20:25:00 20:30:00 Procedure 10521.1.1 it y of 3.412.2.7 [place] .3.589520 MD Reynoso [facility] 2022-02-19 2022-02-19 Ancillary 1.2.840.1 [id number] 1100 [id number] Univers 20:25:00 20:30:00 Procedure 52773.1.1 it y of 3.412.2.7 [place] .3.013551 MD Reynoso [facility] 2022-02-19 2022-02-19 Ancillary EL 1.2.840.1 [id number] 1100 [id number] Univers 20:20:00 20:25:00 Procedure 61526.1.1 it y of 3.412.2.7 [place] .3.501762 MD Reynoso [facility] 2022-02-19 2022-02-19 Ancillary 1.2.840.1 [id number] 1100 [id number] Univers 20:20:00 20:25:00 Procedure 68735.1.1 it y of 3.412.2.7 [place] .3.473445 MD Reynoso [facility] 2022-02-19 2022-02-19 Ancillary EL 1.2.840.1 [id number] 1100 [id number] Univers 20:15:00 20:20:00 Procedure 42698.1.1 it y of 3.412.2.7 [place] .3.031139 MD Reynoso [facility] 2022-02-19 2022-02-19 Ancillary 1.2.840.1 [id number] 1100 [id number] Univers 20:15:00 20:20:00 Procedure 72984.1.1 it y of 3.412.2.7 [place] .3.519346 MD Byrne8 [facility] 2022-02-19 2022-02-19 Ancillary EL 1.2.840.1 [id number] 1100 [id number] Univers 20:10:00 20:15:00 Procedure 76504.1.1 it y of 3.412.2.7 [place] .3.953319 MD Reynoso [facility] 2022-02-19 2022-02-19 Ancillary 1.2.840.1 [id number] 1100 [id number] Univers 20:10:00 20:15:00 Procedure 95700.1.1 it y of 3.412.2.7 [place] .3.120319 MD Reynoso [facility] 2022-02-19 2022-02-19 Ancillary EL 1.2.840.1 [id number] 1100 [id number] Univers 20:05:00 20:10:00 Procedure 92097.1.1 it y of 3.412.2.7 [place] .3.705662 MD Reynoso [facility] 2022-02-19 2022-02-19 Ancillary 1.2.840.1 [id number] 1100 [id number] Univers 20:05:00 20:10:00 Procedure 53291.1.1 it y of 3.412.2.7 [place] .3.583401 MD Reynoso [facility] 2022-02-19 2022-02-19 Ancillary EL 1.2.840.1 [id number] 1100 [id number] Univers 20:00:00 20:05:00 Procedure 14867.1.1 it y of 3.412.2.7 [place] .3.043155 MD Reynoso [facility] 2022-02-19 2022-02-19 Ancillary 1.2.840.1 [id number] 1100 [id number] Univers 20:00:00 20:05:00 Procedure 11421.1.1 it y of 3.412.2.7 [place] .3.270388 .8 [facility] 2022-02-19 2022-02-19 Ancillary EL 1.2.840.1 [id number] 1100 [id number] Univers 12:40:00 12:45:00 Procedure 07023.1.1 it y of 3.412.2.7 [place] .3.166587 .8 [facility] 2022-02-19 2022-02-19 Ancillary 1.2.840.1 [id number] 1100 [id number] Univers 12:40:00 12:45:00 Procedure 68175.1.1 it y of 3.412.2.7 [place] .3.881682 .8 [facility] 2022-02-16 2022-02-16 Transition MECHELLE Elizondo 1.2.840.114 991 [id number] Univers 00:00:00 00:00:00 of Care Triny WOODY 350.1.13.10 it y of [place] 4.2.7.2.686 [facility] [id number] [facility] [address] 2022-02-02 2022-02-15 [facility] [id number] Univers 21:39:00 18:00:00 [facility] it y of Surgery [facility] 2022-02-02 2022-02-15 [facility] Ezra Serra 1.2.840.11 4 [id number] Univers 21:39:00 18:00:00 Encounter Kingsley Sibley 350.1.13. 10 ity of [facility] 4.2.7.2.686 [place] [id number] [facility] [address] 2022-02-15 2022-02-15 Lab Andrzej Corona 1.2.840.1 [id number] Univers 00:00:00 00:00:00 RequKarla Armstrong 60493.1.1 ity of n 3.412.2.7 [place] .3.793432 .8 [facility] 2022-02-15 2022-02-15 Lab Andrzej Corona 1.2.840.1 [id number] 52 [id number] Univers 00:00:00 00:00:00 [place] [address].1.1 ity of n 3.412.2.7 [place] .3.447054 .8 [facility] 2022-02-14 2022-02-14 Anesthesia Shoaib Ortiz 1.2.840.1 [id number] 3 [id number] Univers 23:59:59 23:59:59 Event 24282.1.1 ity of 3.104.2.7 [place] .3.591566 Medica l .8 [place] 2022-02-13 2022-02-13 Anesthesia Edgar Villela 1.2.840.1 [id number] 803 [id number] Univers 14:45:00 17:55:00 Event Caridad Sotomayor 86966.1.1 ity of 3.104.2.7 [place] .3.757972 Medica l .8 [place] 2022-02-13 2022-02-13 Travel 1.2.840.1 1.2.924.923 2503 4327 Univers 00:00:00 00:00:00 18377.1.1 350.1.13.10 ity of 3.104.2.7 4.[place].7.3.698 [place] .3.693331 084.8 Medica l .8 [place] 2022-02-09 2022-02-09 Surgery Anesthesiol 1.2.840.3 [id number] 9 [id number] Univers 13:00:00 14:50:00 ogy 20075.1.1 ity of 3.104.2.7 [place] .3.435950 Medica l .8 Branch 2022-02-09 2022-02-09 Anesthesia Abhay Casarez 1.2.840.1 10 [id number] Univers 13:50:00 14:09:00 Event Joanie Douglas 14050.1.1 ity of 3.104.2.7 [place] .3.066402 Medica l .8 Branch 2022-02-08 2022-02-08 Anesthesia Camila Bhavana 1.2.840.0 [id number] Univers 23:59:59 23:59:59 Event 14637.1.1 ity of 3.104.2.7 [place] .3.270799 Medica l .8 Branch 2022-02-06 2022-02-[address] [facility] 1.2.840.9 [id number] 9 [id number] Univers 00:00:00 00:00:00 Management Care 89174.1.1 i ty of Transition 3.104.2.7 Noe as .3.409104 Medica l .8 Branch 2022-02-05 2022-02-05 Anesthesia Casarez, Faithterence Sheriff 1.2.840.1 10 [id number] Univers 14:20:00 15:54:00 Event Padmini Castillo 66320.1.1 ity of 3.104.2.7 [place] .3.235849 Medica l .8 Branch 2022-02-02 2022-02-02 Travel 1.2.840.1 1.2.046.340 4464 2757 Univers 00:00:00 00:00:00 55526.1.1 350.1.13.10 ity of 3.104.2.7 4.[place].7.3.698 [place] .3.149344 084.8 Medica l .8 [place] 2022-01-31 2022-01-31 Emergency E PENELOPE BERNAL, [facility] [address] [facility] 03:02:00 21:53:00 MOHIT 2022-01-17 2022-01-17 OFFICE STLMLC STLMLC [id number] Co mmon 00:00:00 00:00:00 VISIT NEW [place] it PT LEVEL 4 - [facility] 2022-01-04 2022-01-04 (TEL) STLMLC STLMLC [id number] Co mmon 00:00:00 00:00:00 Spirit - [facility] 2022-01-02 2022-01-02 Yadi Valentino, 1.2.840.1 [id number] 2099 458403 Methodi 00:00:00 00:00:[address] [facility] 3.430.2.7 Hospit a .3.706250 l .8 2022-01-02 2022-01-02 Refill Dadabhoy, 1.2.840.1 [id number] 2099 970109 Methodi 00:00:00 00:00:[address] [facility] 3.430.2.7 Hospit a .3.616891 l .8 2021-12-21 2021-12-21 (TEL) STLMLC STLMLC [id number] Co mmon 00:00:00 00:00:00 [facility] 2021 2021 Outpatient FOG_Patel_A AOSM AOSM 633 Jennifer 00:00:00 00:00:00 Ramiro 947441 [facility] 2021 2021 Christi M AOSM [place] - Ortho [id number] 8 Jennifer 00:00:00 00:00:00 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 [phone] 2021-11-24 2021-11-24 Outpatient FOG_Patel_A AOSM AOSM 633 6722- Jennifer 00:00:00 00:00:00 Ramiro 715950 Orthop e dic Sports Medicin e 2021-11-21 2021-11-21 Refill Dadabhoy, 1.2.840.1 [id number] 2099 028800 Methodi 00:00:00 00:00:[address] [facility]im 3.430.2.7 Hospit a .3.229350 l .8 2021-11-21 2021-11-21 Refill Dadabhoy, 1.2.840.1 [id number] 2099 622100 Methodi 00:00:00 00:00:[address] [facility] 3.430.2.7 Hospit a .3.051950 l .8 2021-11-18 2021-11-18 Refill Dadabhoy, 1.2.840.1 [id number] 2099 669757 Methodi 00:00:00 00:00:[address] [facility]im 3.430.2.7 Hospit a .3.293981 l .8 2021-11-18 2021-11-18 Refill Dadabhoy, 1.2.840.1 [id number] 2099 725051 Methodi 00:00:00 00:00:[address] [facility]im 3.430.2.7 Hospit a .3.191329 l .8 2021-11-09 2021-11-09 Outpatient FOG_Patel_A AOSM AOSM 633 6722-20 Jennifer 00:00:00 00:00:00 Ramiro 089484 Orthop e dic Sports Medicin e 2021-11-09 2021-11-09 Refill Dadabhoy, 1.2.840.1 [id number] 2099 344619 Methodi 00:00:00 00:00:[address] [facility]im 3.430.2.7 Hospit a .3.484890 l .8 2021-11-09 2021-11-09 Refill Dadabhoy, 1.2.840.1 [id number] 2099 324376 Methodi 00:00:00 00:00:[address] [facility]im 3.430.2.7 Hospit a .3.782173 l .8 2021-11-07 2021-11-08 Inpatient EL Valentina Sherman [facility] Y000 [id number] [facility] 10:05:00 16:04:00 [facility] [place] [facility] 2021-11-08 2021-11-08 Outpatient FOG_Patel_A AOSM AOSM 633 6722-20 Jennifer 00:00:00 00:00:00 Ramiro 421566 Orthop e dic Sports Medicin e 2021-11-07 2021-11-07 Outpatient FOG_Patel_A AOSM AOSM 633 22-20 Jennifer 00:00:00 00:00:00 Ramiro 603969 Orthop e dic Sports Medicin e 2021-11-07 2021-11-07 Outpatient Valentina Sherman AOSM AOSM 06b 2h60r-9 00:00:00 00:00:00 R 158-11ed-b [id number] 2021-11-07 2021-11-07 Valentina R AOSM [place] - Ortho [id number] 6 Jennifer 00:00:00 00:00:00 MD John: Bety Abarca - Orthope [address] FOG_Surgery [address], [place], [place] [address] , Ph. [phone] 2021-11-06 2021-11-06 Refill Dadabhoy, 1.2.840.1 [id number] 2099 296058 Methodi 00:00:00 00:00:[address] [facility]im 3.430.2.7 Hospit a .3.484221 l .8 2021-11-06 2021-11-06 Refill Dadabhoy, 1.2.840.1 770077871 2099 097474 Methodi 00:00:00 00:00:[address] Hashim 3.430.2.7 Hospit a .3.427982 l .8 2021-11-02 2021-11-02 Outpatient FOG_Patel_A AOSM AOSM 633 20 Jennifer 00:00:00 00:00:00 Ramiro 366663 Orthop e dic Sports Medicin e 2021-10-30 2021-10-30 Outpatient FOG_Patel_A AOSM AOSM 633 22-20 Jennifer 00:00:00 00:00:00 Ramiro 205757 Orthop e dic Sports Medicin e 2021-10-20 2021-10-20 Refill Dadabhoy, 1.2.840.1 [id number] 2100 724067 Methodi 00:00:00 00:00:[address] [facility]im 3.430.2.7 Hospit a .3.750484 l .8 2021-10-20 2021-10-20 Yadi Valentino, 1.2.840.1 145309352 2100 242377 Methodi 00:00:00 00:00:[address] Hashim 3.430.2.7 Hospit a .3.655488 l .8 2021-10-19 2021-10-19 Outpatient FOG_Patel_A AOSM AOSM 633 6722-20 Jennifer 00:00:00 00:00:00 Ramiro 322155 Orthop e dic Sports Medicin e 2021-10-19 2021-10-19 Outpatient FOG_Loftis_ AOSM AOSM 634 1-20 Jennifer 00:00:00 00:00:00 Rupesh 503829 Ortho pe [facility] e 2021-10-16 2021-10-16 Outpatient FOG_Patel_A AOSM AOSM 633 [id number] Jennifer 00:00:00 00:00:00 Ramiro [id number] [facility] e 2021-10-13 2021-10-13 Letter RAYO Velazquez [id number] Univers 00:00:00 00:00:00 (Out) Walter FORD 350.1.13.10 it y of HOSPITAL 4.2.7.2.686 Noe as [id number] [address] 2021-10-13 2021-10-13 Telephone Provider, [facility] 1.2.840.114 [id number] Univers 00:00:00 00:00:00 Ang HEALTH 350.1.13.10 it y of Urgent Care [place] 4.2.7.2.686 [place] RASHI?BLEA [id number] Wi dical [address] MEDICAL OFFICE BUILDING 2021-10-12 2021-10-12 Outpatient R MATEO [facility] [id number] Univers 19:40:00 20:20:30 POONAM ashton [facility] 2021-10-12 2021-10-12 Urgent Mateo [facility] [id number] [facility] 19:40:00 20:20:30 [facility] 350.1.13.10 it y of [place] 4.2.7.2.686 Noe as RASHI?BLEA [phone] Wi dical [address] MEDICAL OFFICE BUILDING 2021-10-12 2021-10-12 Outpatient FOG_Patel_A AOSM AOSM 633 6722-20 Jennifer 00:00:00 00:00:00 Ramiro [id number] [facility] 2021-10-11 2021-10-11 Outpatient FOG_Patel_A AOSM AOSM 633 6722-20 Jennifer 00:00:00 00:00:00 Ramiro [id number] [facility] 2021-10-05 2021-10-05 Outpatient Valentina Vilchis HCATO 3DAY Y00 [id number] [facility] 08:00:00 23:00:00 74 [place] [facility] 2021-10-05 2021-10-05 Outpatient Valentina Sherman HCACL LABO G00 [id number] [facility] 15:57:00 15:57:00 02 [facility] 2021-10-02 2021-10-02 Outpatient FOG_Loftis_ AOSM AOSM 634 [id number] Jennifer 00:00:00 00:00:00 Rupesh [id number] Ortho pe dic [facility] Medicin e 2021-09-27 2021-09-27 Telemedici Daddorcas, 1.2.840.1 [id number] 2 [id number] Methodi 14:00:00 15:37:29 ne Irfan 03106.1.[address] [facility] 3.430.2.7 Hospit a .3.459867 l .8 2021-09-27 2021-09-27 Telemedici Dadabhoy, 1.2.840.1 [id number] 2 [id number] Methodi 14:00:00 15:37:29 ne Irfan 41532.1.[address] [facility] 3.430.2.7 Hospit a .3.383878 l .8 2021-09-25 2021-09-25 Outpatient FOG_Patel_A AOSM AOSM 633 Jennifer 00:00:00 00:00:00 Ramiro [id number] Orthop e [facility] e 2021-09-22 2021-09-22 Outpatient FOG_Patel_A AOSM AOSM 633 Jennifer 12:59:00 12:59:00 Ramiro [id number] [facility] 2021-09-21 2021-09-21 Outpatient FOG_Patel_A AOSM AOSM 633 Jennifer 01:45:00 01:45:00 Ramrio [id number] Orthop e [facility] Medicin e 2021-09-20 2021-09-20 Outpatient FOG_Patel_A AOSM AOSM 633 Jennifer 01:53:00 01:53:00 Ramiro [id number] Orthop e [facility] e 2021-09-19 2021-09-19 Outpatient FOG_Patel_A AOSM AOSM 633 Jennifer 02:45:00 02:45:00 Ramiro [id number] Orthop e [facility]in e 2021-09-19 2021-09-19 Outpatient Valentina Sherman AOSM AOSM 02a [id number] 00:00:00 00:00:00 R 7ab-11ed-a [id number] 2021-09-19 2021-09-19 Valentina R AOSM [place] - Ortho [id number] Jennifer 00:00:00 00:00:00 MD John: Bety Abarca - Orthope [address] FOG_Ofc dic [facility], Medicin [place] [id number] , Ph. [phone] 2021-09-18 2021-09-18 Orders Betito, 1.2.840.1 [id number] 2099 [id number] Methodi 00:00:00 00:00:00 Only Irfan 64453.1.[address] Hashim 3.430.2.7 Hospit a .3.382122 l .8 2021-09-18 2021-09-18 Orders Betito 1.2.840.1 [id number] 2099 755085 Methodi 00:00:00 00:00:00 Only Irfan 94666.1.[address] Hashim 3.430.2.7 Hospit a .3.237921 l .8 2021-09-15 2021-09-15 Orders Claus, 1.2.840.1 [id number] 31707 79239 Methodi 00:00:00 00:00:00 Only Rita 07314.1.[address] 3.430.2.7 Hospit a .3.447295 l .8 2021-09-15 2021-09-15 Orders Claus, 1.2.840.1 [id number] 26378 07578 Methodi 00:00:00 00:00:00 Only Rita 28094.1.[address] 3.430.2.7 Hospit a .3.540970 l .8 2021-09-14 2021-09-14 Outpatient FOG_Patel_A [facility] 633 6722-20 Jennifer 01:25:00 01:25:00 Ramiro 114028 Orthop e [facility]in e 2021-09-14 2021-09-14 (TEL) STLMLC STLMLC [id number] Co mmon 00:00:00 00:00:00 [facility] 2021-09-13 2021-09-13 OFFICE STLMLC STLMLC [id number] Co mmon 00:00:00 00:00:00 VISIT [facility] it PT LEVEL 3 - [facility] 2021-09-11 2021-09-11 Patient Felippi, 1.2.840.1 [id number] 87507 69669 Methodi 00:00:00 00:00:00 Outreach Kwan 80641.1.[address] 3.430.2.7 Hospit a .3.524847 l .8 2021-09-11 2021-09-11 Patient Felippi, 1.2.840.1 [id number] 67937 07595 Methodi 00:00:00 00:00:00 Outreach Kwan 61555.1.[address] 3.430.2.7 Hospit a .3.316389 l .8 2021-09-04 2021-09-04 Orders Dadabhoy, 1.2.840.1 [id number] 2099 514165 Methodi 00:00:00 00:00:00 Only Irfan 45950.1.[address] Hashim 3.430.2.7 Hospit a .3.529971 l .8 2021-09-04 2021-09-04 Orders Dadabhoy, 1.2.840.1 [id number] Methodi 00:00:00 00:00:00 Only Irfan 44537.1.[address] Hashim 3.430.2.7 Hospit a .3.221075 l .8 2021-09-01 2021-09-01 Emergency EM Mena, HCATO HCATO [id number] [facility] 19:25:00 20:59:00 Christopher 682624 [facility] 2021-09-01 2021-09-01 Emergency EM Mena, HCATO AMBROSE [id number] 90 [facility] 19:25:00 20:59:00 Christopher 60 [facility] 2021-08-29 2021-08-29 Patient Johnny, 1.2.840.1 [id number] 038118 3689 Methodi 00:00:00 00:00:00 Outreach Olcmunmi [address]40.1.[address] 3.430.2.7 Hospit a .3.446249 l .8 2021-08-29 2021-08-29 Patient Johnny, 1.2.840.1 [id number] 563373 8942 Methodi 00:00:00 00:00:00 Outreach Olufunmi 44078.1.[address] 3.430.2.7 Hospit a .3.995074 l .8 2021-08-28 2021-08-28 Telephone Carlos 1.2.840.1 [id number] 2099 537882 Methodi 00:00:00 00:00:[address] 3.430.2.7 Hospit a .3.545607 l .8 2021-08-28 2021-08-28 Telephone Carlos, 1.2.840.1 [id number] 2099 028656 Methodi 00:00:00 00:00:[address] 3.430.2.7 Hospit a .3.986360 l .8 2021-07-27 2021-07-27 Orders Betito, 1.2.840.1 [id number] 2099 395289 Methodi 00:00:00 00:00:00 Only Irfan 75467.1.[address] Hashim 3.430.2.7 Hospit a .3.999366 l .8 2021-07-27 2021-07-27 Orders Betito, 1.2.840.1 [id number] 2099 805739 Methodi 00:00:00 00:00:00 Only Irfan 44778.1.[address] Hashim 3.430.2.7 Hospit a .3.876512 l .8 2021-07-10 2021-07-10 Office Betito, 1.2.840.1 [id number] 2099 440222 Methodi 15:00:00 15:59:21 Visit Irfan 51875.1.[address] Hashim 3.430.2.7 Hospit a .3.716452 l .8 2021-07-10 2021-07-10 Office Betito, 1.2.840.1 [id number] 2099 720992 Methodi 15:00:00 15:59:21 Visit Irfan 22837.1.[address] Hashim 3.430.2.7 Hospit a .3.678463 l .8 2021-07-10 2021-07-10 Orders Carlos, 1.2.840.1 [id number] 503878 6561 Methodi 00:00:00 00:00:00 Only Evernice 79865.1.[address] 3.430.2.7 Hospit a .3.650012 l .8 2021-07-10 2021-07-10 Travel 1.2.840.1 1.2.813.458 6065 143360 Methodi 00:00:00 00:00:[address] 3.430.2.7 0.2.7.3.698 Ho spita .3.886282 084.8 l .8 2021-07-10 2021-07-10 Orders Carlos, 1.2.840.1 [id number] 105705 0345 Methodi 00:00:00 00:00:00 Only Joseph 76111.1.[address] 3.430.2.7 Hospit a .3.778820 l .8 2021-07-10 2021-07-10 Travel 1.2.840.1 1.2.889.823 5730 771267 Methodi 00:00:00 00:00:[address] 3.430.2.7 0.2.7.3.698 Ho spita .3.385786 084.8 l .8 2021-06-30 2021-06-30 Patient Garret, 1.2.840.1 [id number] Methodi 00:00:00 00:00:00 Outreach Roberta 06045.1.[address] 3.430.2.7 Hospit a .3.202640 l .8 2021-06-30 2021-06-30 Patient Garret, 1.2.840.1 63 Methodi 00:00:00 00:00:00 Outreach Roberta 13057.1.[address] 3.430.2.7 Hospit a .3.839313 l .8 2021-06-22 2021-06-22 Telephone Betito, 1.2.840.1 [id number] Methodi 00:00:00 00:00:[address] Hashim 3.430.2.7 Hospit a .3.085112 l .8 2021-06-22 2021-06-22 Travel 1.2.840.1 1.2.015.893 4682 135584 Methodi 00:00:00 00:00:[address] 3.430.2.7 0.2.7.3.698 Ho spita .3.756301 084.8 l .8 2021-06-22 2021-06-22 Transition MECHELLE Deutsch 1.2.840.114 929 44685 Univers 00:00:00 00:00:00 of Care Maxim WOODY 350.1.13.10 [place] [phone] [facility] [address] 2021-06-22 2021-06-22 Telephone Betito, 1.2.840.1 [id number] 21 [id number] Methodi 00:00:00 00:00:[address] Hashim 3.430.2.7 Hospit a .3.266226 l .8 2021-06-22 2021-06-22 Travel 1.2.840.1 1.2.674.366 6812 218578 Methodi 00:00:00 00:00:[address] 3.430.2.7 0.2.7.3.698 Ho spita .3.709679 084.8 l .8 2021-06-17 2021-06-21 Hospital Mikhail Goodwin [facility] 1.2.840.11 4 [id number] Univers 22:07:00 16:30:00 Encounter Elvis Ramos, [facility] 350.1.13. 10 ity of [place] CLEAR 4.2.7.2.686 [facility] [phone] [facility] [address] ([facility]) 2021-06-17 2021-06-21 Inpatient X MITCH SHERMAN [facility] MAT 10 [id number] Univers 22:07:00 16:30:00 MAITE SHERMANARG ity [facility] 2021-06-18 2021-06-18 [facility] 1.2.497.800 8757 9055 Univers 16:00:00 18:12:00 [facility]ly [facility] 350.1.13.10 it [place] [id number] [facility] [address] ([facility]) 2021-06-16 2021-06-17 Emergency Wingkun, 1.2.840.1 [id number] 299 [id number] Methodi 19:44:00 00:38:00 Clifton-Dylan 44205.1.[address] Go 3.430.2.7 Hospit a .3.253632 l .8 2021-06-16 2021-06-17 Emergency Wingkun, 1.2.840.1 [id number] 100 [id number] Methodi 19:44:00 00:38:00 Clifton-Dylan 65416.1.[address] Go 3.430.2.7 Hospit a .3.895491 l .8 2021-06-15 2021-06-15 Office Alize Brenner 1.2.840.1 [id number] 528 0570150 Methodi 13:30:00 14:11:00 Visit Niels 23490.1.[address] 3.430.2.7 Hospit a .3.009552 l .8 2021-06-15 2021-06-15 Office Alize Brenner 1.2.840.1 [id number] 402 7905467 Methodi 13:30:00 14:11:00 Visit Niels 62642.1.[address] 3.430.2.7 Hospit a .3.348413 l .8 2021-06-09 2021-06-10 Emergency Kendig, 1.2.840.1 [id number] 2099 883575 Methodi 20:47:00 01:38:[address] Emmanuel 3.430.2.7 Hosp mi .3.399552 l .8 2021-06-09 2021-06-10 Emergency Kendig, 1.2.840.1 [id number] 2100 661242 Methodi 20:47:00 01:38:[address] Emmanuel 3.430.2.7 Hosp mi .3.008054 l .8 2021-05-26 2021-05-26 Office Alize Brenner 1.2.840.1 540016572 317 8447937 Methodi 11:00:00 11:11:44 Visit Niels 54627.1.[address] 3.430.2.7 Hospit a .3.083656 l .8 2021-05-26 2021-05-26 Office Alize Brenner 1.2.840.1 [id number] 684 6573448 Methodi 11:00:00 11:11:44 Visit Niels 24180.1.[address] 3.430.2.7 Hospit a .3.595397 l .8 2021-05-26 2021-05-26 Outpatient ALIZE BRENNER [facility] 2100 512426 [place] 00:00:00 00:00:[address] 2021-05-26 2021-05-26 Telephone Alize Brenner 1.2.840.1 [id number] 2 [id number] Methodi 00:00:00 00:00:[address] 3.430.2.7 Hospit a .3.146622 l .8 2021-05-26 2021-05-26 Travel 1.2.840.1 1.2.355.245 6867 945390 Methodi 00:00:00 00:00:[address] 3.430.2.7 0.2.7.3.698 Ho spita .3.000280 084.8 l .8 2021-05-26 2021-05-26 Telephone Alize Brenner 1.2.840.1 [id number] 2 [id number] Methodi 00:00:00 00:00:[address] 3.430.2.7 Hospit a .3.789035 l .8 2021-05-26 2021-05-26 Travel 1.2.840.1 1.2.809.062 7599 220898 Methodi 00:00:00 00:00:[address] 3.430.2.7 0.2.7.3.698 Ho spita .3.019032 084.8 l .8 2021-05-24 2021-05-24 Pepe Sherwood 1Caty2.840.1 944013104 563352 2704 Methodi 00:00:00 00:00:00 Only Rosalia 31122.1.[address] 3.430.2.7 Hospit a .3.998261 l .8 2021-05-24 2021-05-24 Orders Sherwood, 1.2.840.1 [id number] 185352 7522 Methodi 00:00:00 00:00:00 Only Rosalia 84228.1.[address] 3.430.2.7 Hospit a .3.496752 l .8 2021-05-15 2021-05-15 Treatment Deuce Valentino 1.2.840.1 074464367 0249197646 Methodi 10:30:00 11:30:00 Jeremi Gonzalez 95222.1. [address] 3.430.2.7 Hospit a .3.449288 l .8 2021-05-15 2021-05-15 Treatment Deuce Valentino 1.2.840.1 645853371 8492242794 Methodi 10:30:00 11:30:00 Jeremi Gonzalez 11619.1. [address] 3.430.2.7 Hospit a .3.119951 l .8 2021-05-15 2021-05-15 Travel 1.2.840.1 1.2.847.975 8304 227053 Methodi 00:00:00 00:00:[address] 3.430.2.7 0.2.7.3.698 Ho spita .3.699376 084.8 l .8 2021-05-15 2021-05-15 Travel 1.2.840.1 1.2.732.473 3412 545413 Methodi 00:00:00 00:00:[address] 3.430.2.7 0.2.7.3.698 Ho spita .3.334089 084.8 l .8 2021-05-08 2021-05-08 Treatment Deuce Valentino 1.2.840.1 [id number] 1421748998 Methodi 11:30:00 12:30:[address] 3.430.2.7 Hospit a .3.365799 l .8 2021-05-08 2021-05-08 Treatment Deuce Valentino 1.2.840.1 332108265 5262099525 Methodi 11:30:00 12:30:[address] 3.430.2.7 Hospit a .3.571385 l .8 2021-05-08 2021-05-08 Travel 1.2.840.1 1.2.917.221 3288 518053 Methodi 00:00:00 00:00:[address] 3.430.2.7 0.2.7.3.698 Ho spita .3.888357 084.8 l .8 2021-05-08 2021-05-08 Plan of 1.2.840.1 [id number] 317907 9695 Methodi 00:00:00 00:00:[address] Documentat 3.430.2.7 Hos amadou ion .3.773830 l .8 2021-05-08 2021-05-08 Travel 1.2.840.1 1.2.144.845 0051 596748 Methodi 00:00:00 00:00:[address] 3.430.2.7 0.2.7.3.698 Ho spita .3.533311 084.8 l .8 2021-05-08 2021-05-08 Plan of 1.2.840.1 [id number] 322126 3097 Methodi 00:00:00 00:00:[address] Documentat 3.430.2.7 Hos amadou ion .3.294759 l .8 2021-05-03 2021-05-03 Documentat Rios, 1.2.840.1 [id number] 313 4670338 Methodi 00:00:00 00:00:00 [address].1.[address] 3.430.2.7 Hospit a .3.289864 l .8 2021-05-03 2021-05-03 Documentat Rios, 1.2.840.1 625860999 780 7030546 Methodi 00:00:00 00:00:[address] 3.430.2.7 Hospit a .3.046738 l .8 2021-04-28 2021-04-28 Treatment Deuce Valentino Elsy 1.2.840.1 892160189 [id number] Methodi 11:00:00 12:00:00 Kayley Devlin 52482.1.[address] 3.430.2.7 Hospit a .3.845393 l .8 2021-04-28 2021-04-28 Treatment Deuce Valentino Elsy 1.2.840.1 193828821 6258874058 Methodi 11:00:00 12:00:00 Kayley Devlin 34025.1.[address] 3.430.2.7 Hospit a .3.660382 l .8 2021-04-26 2021-04-26 Telephone Carlos, 1.2.840.1 034012089 2100 088768 Methodi 00:00:00 00:00:[address] 3.430.2.7 Hospit a .3.298437 l .8 2021-04-26 2021-04-26 Telephone Carlos, 1.2.840.1 646458377 2100 816050 Methodi 00:00:00 00:00:[address] 3.430.2.7 Hospit a .3.882042 l .8 2021-04-25 2021-04-25 Treatment Betito Krisoctavia Elsy 1.2.840.1 697812569 3373048578 Methodi 10:30:00 11:30:[address] 60445.1.[address] 3.430.2.7 Hospit a .3.547978 l .8 2021-04-25 2021-04-25 Treatment Deuce Valentino 1.2.840.1 777177285 [id number] Methodi 10:30:00 11:30:[address]504.1.[address] 3.430.2.7 Hospit a .3.422808 l .8 2021-04-25 2021-04-25 Travel 1.2.840.1 1.2.776.869 3182 370472 Methodi 00:00:00 00:00:[address] 3.430.2.7 0.2.7.3.698 Ho spita .3.149269 084.8 l .8 2021-04-25 2021-04-25 Travel 1.2.840.1 1.2.219.826 1010 416218 Methodi 00:00:00 00:00:[address] 3.430.2.7 0.2.7.3.698 Ho spita .3.936011 084.8 l .8 2021-04-21 2021-04-21 Treatment Deuce Valentino 1.2.840.1 972399989 3793983475 Methodi 10:30:00 11:30:00 Allison Qiu 42907.1.[address] 3.430.2.7 Hospit a .3.932978 l .8 2021-04-21 2021-04-21 Treatment Deuce Valentino 1.2.840.1 799436207 [id number] Methodi 10:30:00 11:30:00 Allison Qiu [address]6072.1.[address] 3.430.2.7 Hospit a .3.745935 l .8 2021-04-21 2021-04-21 Travel 1.2.840.1 1.2.463.382 0158 245965 Methodi 00:00:00 00:00:[address] 3.430.2.7 0.2.7.3.698 Ho spita .3.956940 084.8 l .8 2021-04-21 2021-04-21 Travel 1.2.840.1 1.2.769.088 6400 319470 Methodi 00:00:00 00:00:[address] 3.430.2.7 0.2.7.3.698 Ho spita .3.061901 084.8 l .8 2021-04-14 2021-04-14 Treatment Deuce Valentino 1.2.840.1 157502472 1930948672 Methodi 10:30:00 11:30:00 [address]iu [address]28.1.[address] 3.430.2.7 Hospit a .3.939654 l .8 2021-04-14 2021-04-14 Treatment Deuce Valentino 1.2.840.1 116754599 1658093202 Methodi 10:30:00 11:30:[address].1.[address] 3.430.2.7 Hospit a .3.066743 l .8 2021-04-14 2021-04-14 Travel 1.2.840.1 1.2.866.449 2314 892676 Methodi 00:00:00 00:00:[address] 3.430.2.7 0.2.7.3.698 Ho spita .3.218140 084.8 l .8 2021-04-14 2021-04-14 Travel 1.2.840.1 1.2.690.588 5307 809557 Methodi 00:00:00 00:00:[address] 3.430.2.7 0.2.7.3.698 Ho spita .3.210538 084.8 l .8 2021-04-11 2021-04-11 [facility] Betito, 1.2.840.1 899298255 2100 331541 Methodi 11:20:00 12:12:05 Visit Deuce 08319.1.[address] Hashim 3.430.2.7 Hospit a .3.478772 l .8 2021-04-11 2021-04-11 Treatment Betito, Deuce Castrejon 1.2.840.1 887001163 5119192042 Methodi 10:00:00 11:00:00 Kayley Devlin 61678.1.[address] 3.430.2.7 Hospit a .3.107146 l .8 2021-04-11 2021-04-11 Travel 1.2.840.1 1.2.257.718 3235 886588 Methodi 00:00:00 00:00:[address] 3.430.2.7 0.2.7.3.698 Ho spita .3.474871 084.8 l .8 2021-04-07 2021-04-07 Documentat [facility] 1.2.840.1 [id number] Methodi 00:00:00 00:00:00 Allison luna 95881.1.1 719 s t 3.430.2.7 Hospit a .3.149054 l .8 2021-04-06 2021-04-06 [facility] Betito, 1.2.840.1 [id number] 21 [id number] Methodi 14:40:00 15:47:26 visit Deuce 27572.1.[address] Hashim 3.430.2.7 Hospit a .3.316030 l .8 2021-04-06 2021-04-06 Travel 1.2.840.1 1.2.319.805 1178 225912 Methodi 00:00:00 00:00:[address] 3.430.2.7 0.2.7.3.698 Ho spita .3.121301 084.8 l .8 2021-04-04 2021-04-04 Documentat Lazarus 1.2.840.1 583447077 [id number] Methodi 00:00:00 00:00:00 Allison luna 27930.1.1 148 s t 3.430.2.7 Hospit a .3.038259 l .8 2021-04-02 2021-04-02 [facility] Betito 1.2.840.1 380309136 2100 745274 Methodi 00:00:00 00:00:00 Only Irfoctavia 87345.1.[address] Hashim 3.430.2.7 Hospit a .3.617327 l .8 2021-03-31 2021-03-31 Treatment Betito Irfoctavia Hashim 1.2.840.1 323450720 [id number] Methodi 11:00:00 12:00:00 Kayley Devlin 25551.1.[address] 3.430.2.7 Hospit a .3.806550 l .8 2021-03-31 2021-03-31 Travel 1.2.840.1 1.2.863.986 0229 017112 Methodi 00:00:00 00:00:[address] 3.430.2.7 0.2.7.3.698 Ho spita .3.919834 084.8 l .8 2021-03-29 2021-03-29 Office Betito 1.2.840.1 847486050 2100 028561 Methodi 11:20:00 12:04:24 Visit Irfoctvaia 98254.1.[address] Hashim 3.430.2.7 Hospit a .3.642692 l .8 2021-03-29 2021-03-29 Outpatient BETITO [facility] 85973 07008 [place] 00:00:00 00:00:00 [address] 2021-03-28 2021-03-28 Treatment Betito Krisoctavia Elsy 1.2.840.1 070432194 [id number] Methodi 11:30:00 12:30:[address] 3.430.2.7 Hospit a .3.115219 l .8 2021-03-28 2021-03-28 Travel 1.2.840.1 1.2.432.043 2060 711290 Methodi 00:00:00 00:00:[address] 3.430.2.7 0.2.7.3.698 Ho spita .3.443131 084.8 l .8 2021-03-28 2021-03-28 Patient Eb, 1.2.840.1 931306860 194 1696220 Methodi 00:00:00 00:00:[address]857.1.[address] 3.430.2.7 Hospit a .3.168622 l .8 2021-03-24 2021-03-24 Treatment Deuce Valentino 1.2.840.1 541786635 [id number] Methodi 11:30:00 12:30:00 [address] Rios [address]57.1.[address] 3.430.2.7 Hospit a .3.482431 l .8 2021-03-23 2021-03-23 Travel 1.2.840.1 1.2.046.935 4759 723502 Methodi 00:00:00 00:00:[address] 3.430.2.7 0.2.7.3.698 Ho spita .3.678098 084.8 l .8 2021-03-20 2021-03-20 Evaluation BetitoKrisoctavia Elsy 1.2.840. 1 [id number] [id number] Methodi 11:30:00 12:30:00 Allison Qiu [address]123.1.[address] 3.430.2.7 Hospit a .3.095988 l .8 2021-03-20 2021-03-20 Plan of 1.2.840.1 573724943 853990 6760 Methodi 00:00:00 00:00:[address] Documentat 3.430.2.7 Hos amadou ion .3.853091 l .8 2021-03-20 2021-03-20 Travel 1.2.840.1 1.2.938.996 1735 427099 Methodi 00:00:00 00:00:[address] 3.430.2.7 0.2.7.3.698 Ho spita .3.578737 084.8 l .8 2021-03-13 2021-03-13 Travel 1.2.840.1 1.2.640.795 2300 460594 Methodi 00:00:00 00:00:[address] 3.430.2.7 0.2.7.3.698 Ho spita .3.517184 084.8 l .8 2021-03-08 2021-03-08 Orders Dadabhoy, 1.2.840.1 494863071 2100 888234 Methodi 00:00:00 00:00:00 Only Irfan 58412.1.[address] Hashim 3.430.2.7 Hospit a .3.484666 l .8 2021-03-07 2021-03-07 Refill Aragon, 1.2.840.1 926431016 2100 533768 Methodi 00:00:00 00:00:00 Jeana 77097.1.1 780 s t 3.430.2.7 Hospit a .3.711951 l .8 2021-03-02 2021-03-02 Refill Aragon, 1.2.840.1 344187541 2100 334636 Methodi 00:00:00 00:00:00 Jeana 52812.1.1 152 s t 3.430.2.7 Hospit a .3.633453 l .8 2021-02-28 2021-02-28 Refill Dadabhoy, 1.2.840.1 281708482 2100 630877 Methodi 00:00:00 00:00:[address] Hashim 3.430.2.7 Hospit a .3.863335 l .8 2021-02-14 2021-02-14 Travel 1.2.840.1 1.2.272.719 8077 449018 Methodi 00:00:00 00:00:[address] 3.430.2.7 0.2.7.3.698 Ho spita .3.635891 084.8 l .8 2021-01-31 2021-01-31 Office Betito, 1.2.840.1 100911521 2099 599266 Methodi 11:20:00 12:33:36 Visit Irfan 30444.1.[address] Hashim 3.430.2.7 Hospit a .3.783852 l .8 2021-01-31 2021-01-31 Travel 1.2.840.1 1.2.629.232 5045 766475 Methodi 00:00:00 00:00:[address] 3.430.2.7 0.2.7.3.698 Ho spita .3.016290 084.8 l .8 2021-01-11 2021-01-11 Outpatient [facility] [id number] [place] 00:00:00 00:00:00 ALFREDO [address] 2020-12-12 2020-12-12 Outpatient UREÑA, [facility] [id number] [place] 00:00:00 00:00:00 ECHO [address] 2020-12-09 2020-12-09 Outpatient [facility] [id number] [place] 00:00:00 00:00:[address] 2020 2020 Outpatient BETITO, [facility] [id number] [place] 00:00:00 00:00:00 IRFAN [address] 2020-11-23 2020-11-23 Outpatient [facility] [id number] [place] 00:00:00 00:00:[address] 2020-11-01 2020-11-01 Outpatient BETITO, [facility] [id number] [place] 00:00:00 00:00:00 IRFAN [address] 2020-09-11 2020-09-24 Inpatient SYDNEE DIAS [facility] [id number] [id number] [place] 00:00:00 00:00:[address] 2020-09-03 2020-09-11 Inpatient JONATHAN, [facility] [id number] [place] 00:00:00 00:00:00 AKIL [address] 2020-08-29 2020-08-29 Outpatient BETITO, [facility] [id number] [place] 00:00:00 00:00:00 IRFAN 858 [facility] i 2020-08-15 2020-08-15 Outpatient CHRISSY, [facility] [id number] [place] 00:00:00 00:00:00 MALIA 535 [facility] 2020-07-04 2020-07-04 Outpatient KAT, [facility] [id number] [place] 00:00:00 00:00:00 STORM 876 Method i 2020-06-24 2020-06-24 Outpatient LAYTONAF [facility] [id number] [place] 00:00:00 00:00:[address] 2020-06-23 2020-06-23 Outpatient ZORAIDA, [facility] [id number] [place] 00:00:00 00:00:00 MAURICE 249 [facility] i 2020-06-22 2020-06-22 Outpatient KRISH, [facility] [id number] [place] 00:00:00 00:00:00 OMER 382 [facility] i 2020-06-21 2020-06-21 Outpatient GILDARDO, [facility] [id number] [place] 00:00:00 00:00:00 RIVAS 026 Method i 2020-06-20 2020-06-20 Outpatient KAT, [facility] [id number] [place] 00:00:00 00:00:00 STORM [address] 2020-06-20 2020-06-20 Outpatient ABDIFATAH AFAF [facility] [id number] [place] 00:00:00 00:00:[address] 2020-06-17 2020-06-17 Outpatient GARDINER, AFAF [facility] [id number] [place] 00:00:00 00:00:[address] 2020-06-16 2020-06-16 Outpatient EDKENYAKEN, [facility] [id number] [place] 00:00:00 00:00:00 MAURICE [address] 2020-06-15 2020-06-16 Outpatient KRISH, [facility] [id number] [place] 00:00:00 00:00:00 OMER [address] 2020-06-14 2020-06-14 Outpatient GILDARDO, [facility] [id number] [place] 00:00:00 00:00:00 RIVAS [address] 2020-06-13 2020-06-13 Outpatient KAT, [facility] [id number] [place] 00:00:00 00:00:00 STORM [address] 2020-06-13 2020-06-13 Outpatient GARDINER, AFAF [facility] [id number] [place] 00:00:00 00:00:[address] 2020-06-10 2020-06-10 Outpatient GARDINER, AFAF [facility] [id number] [place] 00:00:00 00:00:[address] 2020-06-08 2020-06-08 Outpatient ROXANN, [facility] [id number] [place] 00:00:00 00:00:00 JOSETTE [address] 2020-06-06 2020-06-06 Outpatient GARDINER, AFAF [facility] [id number] [place] 00:00:00 00:00:[address] 2020-06-02 2020-06-02 Outpatient EDKENYAKEN, [facility] [id number] [place] 00:00:00 00:00:00 MAURICE [address] 2020-06-01 2020-06-01 Outpatient KRISH, [facility] [id number] [place] 00:00:00 00:00:00 OMER [address] 2020-05-31 2020-05-31 Outpatient GILDARDO, [facility] [id number] [place] 00:00:00 00:00:00 RIVAS [address] 2020-05-30 2020-05-30 Outpatient ABDIFATAH, AFAF [facility] [id number] [place] 00:00:00 00:00:[address] 2020-05-27 2020-05-27 Outpatient ABDIFATAH, AFAF [facility] [id number] [place] 00:00:00 00:00:[address] 2020-05-26 2020-05-26 Outpatient EDEIKEN, [facility] [id number] [place] 00:00:00 00:00:00 MAURICE [address] 2020-05-25 2020-05-25 Outpatient KRISH, [facility] [id number] [place] 00:00:00 00:00:00 OMER [address] 2020-05-24 2020-05-24 Outpatient GILDARDO, [facility] [id number] [place] 00:00:00 00:00:00 RIVAS [address] 2020-05-23 2020-05-23 Outpatient KAT, [facility] [id number] [place] 00:00:00 00:00:00 STORM [address] 2020-05-23 2020-05-23 Outpatient ABDIFATAH, AFAF [facility] [id number] [place] 00:00:00 00:00:[address] 2020-05-20 2020-05-20 Outpatient EDKENYAKEN, [facility] [id number] [place] 00:00:00 00:00:00 MAURICE [address] 2020-05-19 2020-05-19 Outpatient EDEIKEN, [facility] [id number] [place] 00:00:00 00:00:00 MAURICE [address] 2020-05-18 2020-05-18 Outpatient KRISH, [facility] [id number] [place] 00:00:00 00:00:00 OMER [address] 2020-05-17 2020-05-17 Outpatient GILDARDO, [facility] [id number] [place] 00:00:00 00:00:00 RIVAS [address] 2020-05-16 2020-05-16 Outpatient ROXANN, [facility] [id number] [place] 00:00:00 00:00:00 JOSETTE [address] 2020-05-16 2020-05-16 [facility]patient [facility] SYSTEM-DSM [id number] [place] 00:00:00 00:00:[address] 2020-05-13 2020-05-13 Outpatient GARDINER, AFAF [facility] [id number] [place] 00:00:00 00:00:[address] 2020-05-12 2020-05-12 Outpatient EDKENYAKEN, [facility] [id number] [place] 00:00:00 00:00:00 MAURICE [address] 2020-05-11 2020-05-11 Outpatient ROXANN, [facility] [id number] [place] 00:00:00 00:00:00 JOSETTE [address] 2020-05-10 2020-05-10 Outpatient MARQUEZKO, [facility] [id number] [place] 00:00:00 00:00:00 ROB [address] 2020-05-09 2020-05-09 Outpatient GARDINER, AFAF [facility] [id number] [place] 00:00:00 00:00:[address] 2020-05-06 2020-05-06 Outpatient GARDINER, AFAF [facility] [id number] [place] 00:00:00 00:00:[address] 2020-05-05 2020-05-05 Outpatient EDKENYAKEN, [facility] [id number] [place] 00:00:00 00:00:00 MAURICE [address] 2020-05-04 2020-05-04 Outpatient KRISH, [facility] [id number] [place] 00:00:00 00:00:00 OMER [address] 2020-05-03 2020-05-03 Outpatient NURKO, [facility] [id number] [place] 00:00:00 00:00:00 ROB [address] 2020-05-02 2020-05-02 Outpatient GARDINER, AFAF [facility] [id number] [place] 00:00:00 00:00:[address] 2020-04-29 2020-04-29 Outpatient GARDINER, AFAF [facility] [id number] [place] 00:00:00 00:00:[address] 2020-04-28 2020-04-28 Outpatient GILDARDO, [facility] [id number] [place] 00:00:00 00:00:00 RIVAS [address] 2020-04-27 2020-04-27 Outpatient ZORAIDA, [facility] [id number] [place] 00:00:00 00:00:00 MAURICE [address] 2020-04-26 2020-04-26 Outpatient GILDARDO, [facility] [id number] [place] 00:00:00 00:00:00 RIVAS [address] 2020-04-25 2020-04-25 Outpatient KAT, [facility] [id number] [place] 00:00:00 00:00:00 STORM [address] 2020-04-23 2020-04-23 Outpatient [facility] [id number] [place] 00:00:00 00:00:[address] 2020-04-12 2020-04-12 Outpatient ZORAIDA, [facility] 021 [id number] [place] 00:00:00 00:00:00 MAURICE [address] 2020-04-07 2020-04-07 Outpatient ZORAIDA, [facility] [id number] [place] 00:00:00 00:00:00 MAURICE [address] 2020-04-07 2020-04-07 Outpatient KRISH, [facility] [id number] [place] 00:00:00 00:00:00 OMER [address] 2020-04-06 2020-04-06 Outpatient Cerana_M VFP VFP [id number] -[id number] [facility] 03:42:00 03:42:00 22833 Family Practic e 2020-04-06 2020-04-06 Outpatient DADABHOY, [facility] [id number] [place] 00:00:00 00:00:00 IRFAN [address] 2020-04-06 2020-04-06 Outpatient KRISH, [facility] [id number] [place] 00:00:00 00:00:00 OMER [address] 2020-04-04 2020-04-04 Outpatient KAT, [facility] [id number] [place] 00:00:00 00:00:00 STORM [address] 2020-03-28 2020-03-28 Outpatient ROXANN, [facility] [id number] [place] 00:00:00 00:00:00 JOSETTE 101 Method i 2020-03-28 2020-03-28 Outpatient KAT, [facility] [id number] [place] 00:00:00 00:00:00 STORM 125 Method i 2020-03-17 2020-03-17 Outpatient EDEIKEN, [facility] [id number] [place] 00:00:00 00:00:00 MAURICE 698 Method i 2020-03-16 2020-03-16 Outpatient KRONFOL, [facility] [id number] [place] 00:00:00 00:00:00 ZIAD 726 Method i 2020-03-15 2020-03-15 Outpatient NURKO, [facility] [id number] [place] 00:00:00 00:00:00 RIVAS 881 Method i 2020-03-14 2020-03-14 Outpatient ROXANN, [facility] [id number] [place] 00:00:00 00:00:00 JOSETTE 007 Method i 2020-03-14 2020-03-14 Outpatient KAT, [facility] [id number] [place] 00:00:00 00:00:00 STORM 545 Method i 2020-03-11 2020-03-11 Outpatient GARDINER, AFAF [facility] [id number] [place] 00:00:00 00:00:00 909 Method i 2020-03-10 2020-03-10 Outpatient EDEIKEN, [facility] [id number] [place] 00:00:00 00:00:00 MAURICE 756 Method i 2020-03-09 2020-03-09 Outpatient KRONFOL, [facility] [id number] [place] 00:00:00 00:00:00 ZIAD 507 Method i 2020-03-08 2020-03-08 Outpatient NURKO, [facility] [id number] [place] 00:00:00 00:00:00 RIVAS 576 Method i 2020-03-07 2020-03-07 Outpatient ROXANN, [facility] [id number] [place] 00:00:00 00:00:00 JOSETTE [address] 2020-03-03 2020-03-03 Outpatient EDEIKEN, [facility] [id number] [place] 00:00:00 00:00:00 MAURICE [address] 2020-03-02 2020-03-02 Outpatient ROXANN, [facility] [id number] [place] 00:00:00 00:00:00 JOSETTE [address] 2020-03-01 2020-03-01 Outpatient NURKO, [facility] [id number] [place] 00:00:00 00:00:00 RIVAS [address] 2020-02-29 2020-02-29 Outpatient ROXANN, [facility] [id number] [place] 00:00:00 00:00:00 JOSETTE [address] 2020-02-25 2020-02-25 Outpatient EDEIKEN, [facility] [id number] [place] 00:00:00 00:00:00 MAURICE [address] 2020-02-24 2020-02-24 Outpatient KRONFOL, [facility] [id number] [place] 00:00:00 00:00:00 ZIAD [address] 2020-02-24 2020-02-24 Outpatient DADABHOY, [facility] [id number] [place] 00:00:00 00:00:00 IRFAN [address] 2020-02-23 2020-02-23 Outpatient NURKO, [facility] [id number] [place] 00:00:00 00:00:00 RIVAS [address] 2020-02-22 2020-02-22 Outpatient GARDINER, AFAF [facility] [id number] [place] 00:00:00 00:00:[address] 2020-02-19 2020-02-19 Outpatient GARDINER, AFAF [facility] [id number] [place] 00:00:00 00:00:[address] 2020-02-18 2020-02-18 Outpatient EDEIKEN, [facility] [id number] [place] 00:00:00 00:00:00 MAURICE [address] 2020-02-17 2020-02-17 Outpatient KRONFOL, [facility] [id number] [place] 00:00:00 00:00:00 ZIAD [address] 2020-02-16 2020-02-16 Outpatient NURKO, [facility] [id number] [place] 00:00:00 00:00:00 RIVAS [address] 2020-02-15 2020-02-15 Outpatient GARDINER, AFAF [facility] [id number] [place] 00:00:00 00:00:[address] 2020-02-12 2020-02-12 Outpatient GARDINER, AFAF [facility] [id number] [place] 00:00:00 00:00:[address] 2020-02-11 2020-02-11 Outpatient EDEIKEN, [facility] [id number] [place] 00:00:00 00:00:00 MAURICE [address] 2020-02-10 2020-02-10 Outpatient KRONFOL, [facility] [id number] [place] 00:00:00 00:00:00 ZIAD [address] 2020-02-09 2020-02-09 Outpatient KAT, [facility] [id number] [place] 00:00:00 00:00:00 STORM [address] 2020-02-08 2020-02-08 Outpatient NURKO, [facility] [id number] [place] 00:00:00 00:00:00 RIVAS [address] 2020-02-05 2020-02-05 Outpatient GARDINER, AFAF [facility] [id number] [place] 00:00:00 00:00:[address] 2020-02-04 2020-02-04 Outpatient EDEIKEN, [facility] [id number] [place] 00:00:00 00:00:00 MAURICE [address] 2020-02-03 2020-02-03 Outpatient EDEIKEN, [facility] [id number] [place] 00:00:00 00:00:00 MAURICE [address] 2020-01-25 2020-01-25 Outpatient KAT, [facility] [id number] [place] 00:00:00 00:00:00 STORM [address] 2020-01-18 2020-01-18 Outpatient KRISH, [facility] [id number] [place] 00:00:00 00:00:00 OMER [address] 2020-01-13 2020-01-13 Outpatient KRISH, [facility] [id number] [place] 00:00:00 00:00:00 OMER [address] 2020-01-11 2020-01-11 Outpatient KAT, [facility] [id number] [place] 00:00:00 00:00:00 STORM [address] 2019-12-30 2019-12-30 Outpatient AKT, [place] [id number] [place] 00:00:00 00:00:00 STORM [address] 2019-12-28 2019-12-28 Outpatient KAT, [facility] [id number] [place] 00:00:00 00:00:00 STORM [address] 2019-12-28 2019-12-28 Outpatient KAT, [facility] [id number] [place] 00:00:00 00:00:00 STORM [address] 2019-12-15 2019-12-15 Outpatient DADABHOY, [facility] [id number] [place] 00:00:00 00:00:00 IRFAN [address] 2019-12-14 2019-12-14 Outpatient KAT, [facility] [id number] [place] 00:00:00 00:00:00 STORM [address] 2019-11-30 2019-11-30 Outpatient KAT, [facility] [id number] [place] 00:00:00 00:00:00 STORM [address] 2019-11-30 2019-11-30 Outpatient KAT, [facility] [id number] [place] 00:00:00 00:00:00 STORM [address] 2019-11-18 2019-11-18 Outpatient DADABHOY, [facility] [id number] [place] 00:00:00 00:00:00 IRFAN [address] 2019-11-16 2019-11-16 Outpatient KAT, [facility] [id number] [place] 00:00:00 00:00:00 STORM [address] 2019-11-12 2019-11-12 Outpatient KAT, [facility] [id number] [place] 00:00:00 00:00:00 STORM [address] 2019-11-02 2019-11-02 Outpatient KAT, [facility] [id number] [place] 00:00:00 00:00:00 STORM [address] 2019-10-30 2019-10-30 Outpatient KAT, [facility] [id number] [place] 00:00:00 00:00:00 STORM [address] 2019-10-30 2019-10-30 Outpatient KAT, [facility] [id number] [place] 00:00:00 00:00:00 STORM 865 Method i 2019-10-26 2019-10-26 Outpatient KAT, [facility] [id number] [place] 00:00:00 00:00:00 STORM 098 Method i 2017-06-27 2017-07-27 [facility] 80827 [id number] [facility] 12:09:00 04:59:00 r Gabriel 19 l [facility] 2017-07-10 2017-07-11 [facility]patient [facility] 4572 [id number] [facility] 14:51:00 04:59:00 r Gabriel 06 l [facility] 2017-06-03 2017-07-03 Wound Care [facility] 4572 [id number] [facility] 18:06:00 04:59:00 r Gabriel 18 l [facility] 2017-06-17 2017-06-18 Outpatient [facility] 4572 [id number] [facility] 14:32:00 04:59:00 r Gabriel 05 l [facility] 2017-06-03 2017-06-04 [facility] 4572 [id number] [facility] 20:01:00 04:59:00 r Gabriel 04 l [facility] 2017-05-22 2017-05-22 [facility] [place] - [id number] V illage 00:00:00 00:00:00 Zoran Ann: 9055 [facility] [address], [place] [address] , Ph. 2017-05-03 2017-05-04 Day [facility] [id number] [facility] 18:23:00 01:10:00 Surgery r Gabriel 02 l [facility] 2017-03-28 2017-04-27 Wound [facility] 4572 [id number] [facility] 17:21:00 05:59:00 r Gabriel 17 l [facility] 2017-04-25 2017-04-26 Outpatient nullFlavo [facility] 4572 [id number] [facility] 14:33:00 05:59:00 r Gabriel 03 l [facility] 2017-04-18 2017-04-19 Outpatient nullFlavo [facility] 4572 [id number] [facility] 11:00:00 05:59:00 r Gabriel 46 l [facility] 2017-03-28 2017-03-28 Outpatient [facility] 9417 [facility] 11:21:00 11:21:00 2017-02-26 2017-02-26 Joseph Medina [facility] [place] - [id number] V illage 00:00:00 00:00:00 Zoran Ann y : 9055 [facility] [address], [place] [address] , Ph. 2016-11-22 2016-12-22 [place]ound [place] [id number] [facility] 15:55:00 04:59:00 r Gabriel 16 l [facility] 2016-11-23 2016-11-23 Joseph Medina [facility] [place] - [id number] V illage 00:00:00 00:00:00 Zoran Ann: 9055 [facility] [address], [place] [address] , Ph. 2016-10-11 2016-11-10 Wound Care [facility] 4572 [id number] [facility] 14:30:00 04:59:00 r Gabriel 15 l [facility] 2016-10-18 2016-10-18 Outpatient spring [id number] eClinic 14:29:00 14:29:00 Branch Branch alWork s Podiatry Podiatry [facility] 2016-09-06 2016-10-06 Wound Care nullFlavo [facility] 4572 [id number] [facility] 14:53:00 04:59:00 r Gabriel 14 l [facility] 2016-08-02 2016-09-01 Wound Care nullFlavo [facility] 4572 [id number] [facility] 17:02:00 04:59:00 r Gabriel 13 l [facility] 2016-08-23 2016-08-23 Joseph Medina [facility] [place] - [id number] V illage 00:00:00 00:00:00 Zoran Ann y MD: 9055 [facility], [facility] [address], [place] [id number] , Ph. 2016-06-28 2016-07-28 Wound Care nullFlavo [facility] 4572 [id number] Memoria 15:44:00 04:59:00 r Gabriel 12 l [facility] 2016-07-26 2016-07-26 [facility] [place] - [id number] V illage 00:00:00 00:00:00 Zoran Ann y MD: 9055 [facility], [facility] [address], [place] [address] , Ph. 2016-06-26 2016-06-26 Joseph Medina [facility] [place] - [id number] V illage 00:00:00 00:00:00 Zoran Ann y MD: 9055 [facility], [facility] [address], [place] [address] , Ph. 2016-05-24 2016-06-23 [facility] [place] [id number] [facility] 15:11:00 04:59:00 r Gabriel 11 [facility] 2016-06-14 2016-06-15 [facility] 4572 [id number] [facility] 16:29:00 04:59:00 r Gabriel 03 l [facility] 2016-04-24 2016-05-24 Wound Care nullFlavo [place] 925112 [id number] Mem[facility] 14:30:00 04:59:00 r Gabriel 10 l [facility] 2016-04-24 2016-04-24 Joseph Medina [facility] [place] - [id number] V illage 00:00:00 00:00:00 Zoran Ann y MD: 9055 [facility], [facility] [address], [place] [address] , Ph. 2016-03-16 2016-04-15 Wound Care nullFlavo [place] 925112 [id number] Mem[facility] 16:00:00 05:59:00 r Sarcoxie 09 l [facility] 2016-03-15 2016-03-15 Joseph Medina [facility] [place] - [id number] V illage 00:00:00 00:00:00 Zoran Ann y MD: 9055 [facility], [facility] [address], [place] [address] , Ph. 2016-02-15 2016-02-15 Joseph Medina [facility] [place] - [id number] V illage 00:00:00 00:00:00 Zoran Ann y MD: 9055 [facility] [address] [facility], [facility] [address], [place] [address] , Ph. 2016-01-13 2016-02-12 Wound Care [place] [address] [id number] Memoria 17:30:00 05:59:00 r Gabriel 07 l [facility] 2016-01-30 2016-01-30 Joseph Carol [facility] [place] - [id number] V illage 00:00:00 00:00:00 Zoran Ann y MD: 9055 [facility] [address] [facility], [facility] [address], [place] [address] , Ph. 2015-11-11 2015-12-11 Wound Care [place] [id number] Mem[facility] 17:21:00 04:59:00 r Gabriel 06 l [facility] 2015-09-23 2015-10-23 Wound Care [place] [address] [id number] Mem[facility] 16:58:00 04:59:00 r Gabriel 05 l [facility] 2015-10-21 2015-10-22 Outpatient nullFlavo [place] 925112 [id number] [facility] 05:00:00 04:59:00 r Gabriel 32 l [facility] 2015-10-20 2015-10-20 Joseph Medina [facility] [place] - [id number] V illage 00:00:00 00:00:00 Zoran Ann y MD: 9055 [facility] [address] [facility], [facility] [address], [place] [address] , Ph. 2015-08-16 2015-09-15 Wound Care nullFlavo [facility] 4572 [id number] Memoria 16:50:00 04:59:00 r Sarcoxie 04 l [facility] 2015-07-15 2015-08-14 Wound Care nullFlavo [facility] 4572 [id number] [facility] 19:10:00 04:59:00 r Sarcoxie 03 l [facility] 2015-06-13 2015-07-13 Wound Care nullFlavo [facility] 4572 [id number] Mem[facility] 18:56:00 04:59:00 r Gabriel 02 l [facility] 2015-04-25 2015-05-25 Wound Care nullFlavo [facility] 4572 [id number] [facility] 18:57:00 04:59:00 r Sarcoxie 01 l [facility] 2015-03-17 2015-04-16 Wound Care nullFlavo [facility] 4572 [id number] [facility] 14:00:00 05:59:00 r Sarcoxie 00 l [facility] 2015-02-15 2015-03-17 Wound Care nullFlavo [facility] 4572 [id number] Memoria 17:40:00 05:59:00 r Gabriel 00 l [facility] 2015-02-22 2015-02-23 [facility] [id number] [facility] 23:10:00 01:23:00 Emergency r Gabriel 01 l [facility] 2015-02-16 2015-02-19 [facility] 33466 [id number] [facility] 16:42:00 17:48:00 r Gabriel 49 l [facility] 2014-09-30 2014-09-30 [facility] [place] [id number] af4-4 [facility] 14:45:00 14:45:00 D PT: Lt r Branch 0x5-806g-g l [facility] [id number] [place] 00693b 2014-09-30 2014-09-30 [facility] [place] [id number] af4-4 [facility] 14:45:00 14:45:00 D PT: Lt r Branch 3x5-196j-i l [facility] [id number] Her [place] 04572h 2014-09-30 2014-09-30 Outpatient [facility] [id number] eClinic 09:45:00 09:45:00 [facility] 2013-07-01 2013-07-01 diabetic nullFlavo [place] 715425e 7-1 [facility] 19:20:00 19:20:00 shoes r Branch eab-432b-a l Podiatry 69a-dcfcfa [place] 80603x 2013-07-01 2013-07-01 diabetic nullFlavo [place] c4m5kf0 2-c [facility] 19:20:00 19:20:00 shoes r Branch 835-414f-8 l Podiatry aa4-a489da [place] f62f48 2013-07-01 2013-07-01 diabetic nullFlavo [place] 953976e 7-1 [facility] 19:20:00 19:20:00 shoes r Branch eab-432b-a l Podiatry 69a-dcfcfa [place] 37268g 2013-07-01 2013-07-01 diabetic nullFlavo [place] k1u1ml5 2-c [facility] 19:20:00 19:20:00 shoes r Branch 835-414f-8 l Podiatry aa4-a489da [place] f62f48 2013-07-01 2013-07-01 [facility] 73099 eClinic 14:20:00 14:20:00 [facility] 2013-05-05 2013-05-05 NEW PT: nullFlavo [place] 3us4m0n3 -4 [facility] 15:45:00 15:45:00 DIABETIC: r Branch ff1-48be-8 l POSSIBLE Podiatry 504-vfg449 [place] ULCER LT [id number] FT 2013-05-05 2013-05-05 NEW PT: nullFlavo [place] 2xq4t2l5 -4 [facility] 15:45:00 15:45:00 DIABETIC: r Branch ff1-48be-8 l POSSIBLE Podiatry 504-htn499 Her [place] ULCER LT [id number] FT 2013-05-05 2013-05-05 NEW PT: nullFlavo [place] [id number] -9 [facility] 14:45:00 14:45:00 DIABETIC: r Branch 9h4-0694-0 l POSSIBLE Podiatry 1p9-1p57xo [place] ULCER LT 3a5b2b FT 2013-05-05 2013-05-05 NEW PT: nullFlavo [place] q52p59m2 -4 [facility] 14:45:00 14:45:00 DIABETIC: r Branch 59a-46c7-9 l POSSIBLE Podiatry 16d-70549o [place] U[place]ER LT 58310s FT 2013-05-05 2013-05-05 NEW PT: nullFlavo [place] [id number] -9 [facility] 14:45:00 14:45:00 DIABETIC: r Branch 3d7-5228-9 l POSSIBLE Podiatry 4r3-5y01qf [place] ULCER LT 3a5b2b FT 2013-05-05 2013-05-05 NEW PT: nullFlavo [place] [id number] -4 [facility] 14:45:00 14:45:00 DIABETIC: r Branch 59a-46c7-9 l POSSIBLE Podiatry 16d-78107y [place] ULCER LT 01213o FT 2013-05-05 2013-05-05 Outpatient [facility] 31338 eClinic 09:45:00 09:45:00 Branch Branch alWork s Podiatry Podiatry 2013-04-24 2013-04-24 EC nullFlavo [facility] [id number] [facility] 03:15:00 09:14:00 Emergency r [place] [id number] l [address] 2013-04-23 2013-04-24 [facility] 428114 [id number] [facility] 21:15:00 03:14:00 [facility] 00 l [place] Results Test Description Test Time Test Comments Results Result Comments Source BASIC METABOLIC PANEL (NA, K, CL, CO2, GLUCOSE, BUN, 2022-03 14:40:05 CREATININE, [place]) Test Item Value Reference Range Interpretation Comme nts NA (test code = 139 mmol/L 135-145 1258208466) K (test code = 4.8 mmol/L 3.5-5.0 Slight hemoly sis 3609241258) CL (test code = 103 mmol/L 98-108 6249759653) CO2 TOTAL (test code = 31 mmol/L 23-31 9239674633) AGAP (test code = 2-16 5088771455) BUN (test code = 14 mg/dL 7-23 Slight hemo lysis [id number]) GLUCOSE (test code = 99 mg/dL 70-110 9331094784) CREATININE (test code = 0.77 mg/dL 0.60-1.25 8627793723) CALCIUM (test code = 8.7 mg/dL 8.6-10.6 1080171147) eGFR (test code = mL/min/1.73m2 5384303606) MILO (test code = MILO) Association of Glomerular Filtration Rate (GFR) and Staging of Kidney Disease* + +-- +------- +| GFR (mL/min/1.73 m2) ?| With Kidney Damage ?| ?Without Kidney Damage+ ---+ +- +| ?>90 ?| ?Stage one ?| ? Normal ?+ +- +------ +| ?60-89 ?| ?Stage two ?| ? Decreased GFR ? + +-- +------- +| ?30-59 ?| ?Stage three ?| ? Stage three ? + +-- +------- +| ?15-29 ?| ?Stage four ? | ? Stage four ?+ +- +------ +| ?<15 (or dialysis) ? ?| ?Stage five ? | ? Stage five ?+ +- +------ + *Each stage assumes the associated GFR [...] or urine or abnormalities in imaging tests). [facility] METABOLIC PANEL (NA, K, CL, CO2, GLUCOSE, BUN, CREATININE, CA)2022-03-22 14:40:05 Test Item Value Reference Range Interpretation Comments NA (test code = 139 mmol/L 135-145 [id number]) K (test code = 4.8 mmol/L 3.5-5.0 Slight hemoly sis [id number]) CL (test code = 103 mmol/L 98-108 6307061150) CO2 TOTAL (test 31 mmol/L 23-31 code = 6727260015) AGAP (test code = 2-16 9999111812) BUN (test code = 14 mg/dL 7-23 Slight hemo lysis [id number]) GLUCOSE (test code 99 mg/dL 70-110 = 5194329688) CREATININE (test 0.77 mg/dL 0.60-1.25 code = 6652489618) CALCIUM (test code 8.7 mg/dL 8.6-10.6 = 8300188626) eGFR (test code = mL/min/1.73m2 2703676989) MILO (test code = Association of MILO) Glomerular Filtration Rate (GFR) and Staging of Kidney Disease* + ----+ ------+ +| GFR (mL/min/1.73 m2) ?| With Kidney Damage ?| ?Without Kidney Damage+ +--------- +------- +| ?>90 ?| ?Stage one ?| ? Normal ?+ -----+ -------+ +| ?60-89 ?| ?Stage two ?| ? Decreased GFR ? + ----+ ------+ +| ?30-59 ?| ?Stage three ?| ? Stage three ? + ----+ ------+ +| ?15-29 ?| ?Stage four ? | ? Stage four ?+ -----+ -------+ +| ?<15 (or dialysis) ? ?| ?Stage five ? | ? Stage five ?+ -----+ -------+ + *Each stage assumes the associated GFR [...] or urine or abnormalities in imaging tests). [id number] 14:25:00 Test Item Value Reference Range Interpretation Comments PROTIME PATIENT (test See_Comment H [Auto mated message] code = 5964-2) The system [employer] generated this result transmitted ref erence range: 10.1 - 1 2.6 Seconds. The reference range was not used to int erpret this result as normal/abnormal . INR (test code = 6301-6) Nor mal INR <1.1; Warfarin Therap eutic range 2.0 to 3. 0 or 2.5 to 3.5, dep ending upon the indica tions. Lab Interpretation (test Abnormal code = 76117-5) [facility] [id number] 14:25:00 Test Item Value Reference Range Interpretation Comments PROTIME PATIENT (test See_Comment H [Auto mated message] code = 5964-2) The system [facility] generated this result transmitted ref erence range: 10.1 - 1 2.6 Seconds. The reference range was not used to int erpret this result as normal/abnormal . INR (test code = 6301-6) Nor mal INR <1.1; Warfarin Therap eutic range 2.0 to 3. 0 or 2.5 to 3.5, dep ending upon the indica tions. Lab Interpretation (test Abnormal code = 86507-5) [id number] 14:23:19 Test Item Value Reference Range Interpretation Comments WBC (test code = 6690-2) See_Comment H [A utomated message] The system [employer] generated this result transmit cesar reference range : 4.20 - 10.70 10*3/?L. The reference range was not used to interpret this result as normal/abnormal . RBC (test code = 789-8) See_Comment [Au tomated message] The system [employer] generated this result transmit cesar reference range : 4.26 - 5.52 10* 6/?L. The reference r jay was not used to interpret this result as normal/abnormal . HGB (test code = 718-7) 10.2 g/dL 12.2-16.4 L HCT (test code = 4544-3) 33.9 % 38.4-49.3 L MCH (test code = 785-6) 23.9 pg 26.1-32.7 L MCV (test code = 787-2) 79.6 fL 81.7-95.6 L MCHC (test code = 786-4) 30.1 g/dL 31.2-35.0 L PLT (test code = 777-3) See_Comment H [Au tomated message] The system [facility] generated this result transmit cesar reference range : 150 - 328 10*3/?L. The reference range was not used to interpret this result as normal/abnormal . MPV (test code = 10.1 fL 9.8-13.0 54683-0) RDW-CV (test code = 19.8 % 12.1-15.4 H 788-0) RDW-SD (test code = 56.4 fL 38.5-51.6 H 06621-6) NRBC x10^3 (test code = See_Comment [Au tomated message] 2342315234) The system [facility] generated this result transmit cesar reference range : 10*3/?L. The reference range was not used to interpret this result as normal/abnormal . NRBC/100 WBC (test code See_Comment [Au tomated message] = 5538098951) The system [facility] generated this result transmit cesar reference range : 0.0 - 10.0 /100 WBC s. The reference r jay was not used to interpret this result as normal/abnormal . IPF % (test code = 6373474157) Lab Interpretation (test Abnormal code = 69527-0) [facility] WITHOUT [id number] 14:23:19 Test Item Value Reference Range Interpretation Comments WBC (test code = 6690-2) See_Comment H [A utomated message] The system [facility] generated this result transmit cesar reference range : 4.20 - 10.70 10*3/?L. The reference range was not used to interpret this result as normal/abnormal . RBC (test code = 789-8) See_Comment [Au tomated message] The system [facility] generated this result transmit cesar reference range : 4.26 - 5.52 10* 6/?L. The reference r jay was not used to interpret this result as normal/abnormal . HGB (test code = 718-7) 10.2 g/dL 12.2-16.4 L HCT (test code = 4544-3) 33.9 % 38.4-49.3 L MCH (test code = 785-6) 23.9 pg 26.1-32.7 L MCV (test code = 787-2) 79.6 fL 81.7-95.6 L MCHC (test code = 786-4) 30.1 g/dL 31.2-35.0 L PLT (test code = 777-3) See_Comment H [Au tomated message] The system [employer] generated this result transmit cesar reference range : 150 - 328 10*3/?L. The reference range was not used to interpret this result as normal/abnormal . MPV (test code = 10.1 fL 9.8-13.0 75798-8) RDW-CV (test code = 19.8 % 12.1-15.4 H 788-0) RDW-SD (test code = 56.4 fL 38.5-51.6 H 81114-9) NRBC x10^3 (test code = See_Comment [Au tomated message] 2803305958) The system [employer] generated this result transmit cesar reference range : 10*3/?L. The reference range was not used to interpret this result as normal/abnormal . NRBC/100 WBC (test code See_Comment [Au tomated message] = 8435217183) The system [employer] generated this result transmit cesar reference range : 0.0 - 10.0 /100 WBC s. The reference r jay was not used to interpret this result as normal/abnormal . IPF % (test code = 8915600908) Lab Interpretation (test Abnormal code = 26573-4) [facility] GLUCOSE (AUTOMATED)2022-02-15 23:08:28 Test Item Value Reference Range Interpretation Comments POCT GLU (test code = 8483887590) 322 mg/dL 70-110 H Lab Interpretation (test code = Abnormal 84347-9) [facility] GLUCOSE (AUTOMATED)2022-02-15 17:39:31 Test Item Value Reference Range Interpretation Comments POCT GLU (test code = 6725752165) 269 mg/dL 70-110 H Lab Interpretation (test code = Abnormal 96508-7) [facility] GLUCOSE (AUTOMATED)2022-02-15 17:39:31 Test Item Value Reference Range Interpretation Comments POCT GLU (test code = 7172337302) 269 mg/dL 70-110 H Lab Interpretation (test code = Abnormal 05825-2) [facility] 13:50:39 Test Item Value Reference Range Interpretation Comments POCT GLU (test code = 5652951098) 172 mg/dL 70-110 H Lab Interpretation (test code = Abnormal 62321-2) [facility] Confirmation (Lab Only)2022-02-15 12:43:29 Test Item Value Reference Range Interpretation Comments ABO & RH (test code A Negative Performe d at [facility] = 20) Laboratory [facility] Blood [facility]3 [address] [facility] s [address]Rowl Free: [phone] A No. [id number] [facility] Confirmation (Lab Only)2022-02-15 12:43:29 Test Item Value Reference Range Interpretation Comments ABO & RH (test code A Negative Performe d at [facility] = 20) Laboratory [facility] Blood [facility] [address] [place] [address] s [address]Ysus Free: [phone] A No. [id number] [facility] and Screen - ONCE [id number] 12:42:53 Test Item Value Reference Range Interpretation Comments ABO & RH (test A NEGATIVE anti-D negati ve by tube, code = 20) patient treated as Rh NegativePerform ed at [facility] Laboratory [facility] Blood [address] [address]Uyra Free: [phone] A No. [id number] IAT (test code Negative Performed at [facility] Laboratory = 1185) [facility] Blood [address] [address]Iryf Free: [phone] A No. [id number] [facility] and Screen - ONCE [id number] 12:42:53 Test Item Value Reference Range Interpretation Comments ABO & RH (test A NEGATIVE anti-D negati ve by tube, code = 20) patient treated as Rh NegativePerform ed at [facility] Laboratory [facility] Blood [address] [address]Gkxt Free: [phone] A No. [id number] IAT (test code Negative Performed at [facility] Laboratory = 1185) [facility] Blood [address] [address]Ctqf Free: [phone] A No. [id number] [facility] 10:23:28 Test Item Value Reference Range Interpretation Comments POCT GLU (test code = 6096419679) 252 mg/dL 70-110 H Lab Interpretation (test code = Abnormal 01867-3) [facility] 05:35:40 Test Item Value Reference Range Interpretation Comments POCT GLU (test code = 1337118252) 257 mg/dL 70-110 H Lab Interpretation (test code = Abnormal 76819-9) [facility] 03:31:47 Test Item Value Reference Range Interpretation Comments POCT GLU (test code = 2576154386) 336 mg/dL 70-110 H Lab Interpretation (test code = Abnormal 94377-8) [facility]2022-02-15 02:33:32 Test Item Value Reference Range Interpretation Comments POCT GLU (test code = 5259892463) 309 mg/dL 70-110 H Lab Interpretation (test code = Abnormal 39621-9) [facility]2022-02-14 22:03:42 Test Item Value Reference Range Interpretation Comments POCT GLU (test code = 5948904489) 253 mg/dL 70-110 H Lab Interpretation (test code = Abnormal 01499-6) [facility]2022-02-14 17:38:54 Test Item Value Reference Range Interpretation Comments POCT GLU (test code = 6345811421) 320 mg/dL 70-110 H Lab Interpretation (test code = Abnormal 41290-7) [facility]2022-02-14 14:10:42 Test Item Value Reference Range Interpretation Comments POCT GLU (test code = 0924380793) 206 mg/dL 70-110 H Lab Interpretation (test code = Abnormal 32738-2) [facility] 10:39:55 Test Item Value Reference Range Interpretation Comments POCT GLU (test code = 2442664613) 209 mg/dL 70-110 H Lab Interpretation (test code = Abnormal 12394-3) [facility] GLUCOSE (AUTOMATED)2022-02-14 07:21:00 Test Item Value Reference Range Interpretation Comments POCT GLU (test code = 8104383317) 313 mg/dL 70-110 H Lab Interpretation (test code = Abnormal 04931-7) [facility] GLUCOSE (AUTOMATED)2022-02-14 06:02:33 Test Item Value Reference Range Interpretation Comments POCT GLU (test code = 6903294375) 326 mg/dL 70-110 H Lab Interpretation (test code = Abnormal 22054-4) [facility] GLUCOSE (AUTOMATED)2022-02-14 02:45:01 Test Item Value Reference Range Interpretation Comments POCT GLU (test code = 6140996416) 259 mg/dL 70-110 H Lab Interpretation (test code = Abnormal 79099-5) [facility] 18:19:56 Test Item Value Reference Range Interpretation Comments POCT GLU (test code = 3071042732) 249 mg/dL 70-110 H Lab Interpretation (test code = Abnormal 89178-8) [facility] GLUCOSE (AUTOMATED)2022-02-13 16:07:29 Test Item Value Reference Range Interpretation Comments POCT GLU (test code = 9694689898) 176 mg/dL 70-110 H Lab Interpretation (test code = Abnormal 64832-2) [facility] 13:51:54 Test Item Value Reference Range Interpretation Comments POCT GLU (test code = 3181799242) 191 mg/dL 70-110 H Lab Interpretation (test code = Abnormal 71781-1) [facility] 10:59:33 Test Item Value Reference Range Interpretation Comments POCT GLU (test code = 5796385039) 325 mg/dL 70-110 H Lab Interpretation (test code = Abnormal 23547-0) [facility] GLUCOSE (AUTOMATED)2022-02-13 05:39:29 Test Item Value Reference Range Interpretation Comments POCT GLU (test code = 9273631838) 294 mg/dL 70-110 H Lab Interpretation (test code = Abnormal 61793-6) [facility] 02:05:02 Test Item Value Reference Range Interpretation Comments POCT GLU (test code = 8171034668) 300 mg/dL 70-110 H Lab Interpretation (test code = Abnormal 88446-2) [facility] GLUCOSE (AUTOMATED)2022-02-12 23:08:56 Test Item Value Reference Range Interpretation Comments POCT GLU (test code = 3730588266) 280 mg/dL 70-110 H Lab Interpretation (test code = Abnormal 07755-8) [facility] GLUCOSE (AUTOMATED)2022-02-12 17:34:08 Test Item Value Reference Range Interpretation Comments POCT GLU (test code = 1747726059) 312 mg/dL 70-110 H Lab Interpretation (test code = Abnormal 76102-6) [facility] GLUCOSE (AUTOMATED)2022-02-12 17:34:08 Test Item Value Reference Range Interpretation Comments POCT GLU (test code = 7479042981) 312 mg/dL 70-110 H Lab Interpretation (test code = Abnormal 90470-1) [facility] GLUCOSE (AUTOMATED)2022-02-12 14:15:54 Test Item Value Reference Range Interpretation Comments POCT GLU (test code = 1446901211) 242 mg/dL 70-110 H Lab Interpretation (test code = Abnormal 97049-4) [facility] 14:15:54 Test Item Value Reference Range Interpretation Comments POCT GLU (test code = 8877132054) 242 mg/dL 70-110 H Lab Interpretation (test code = Abnormal 09418-4) [facility]12 08:56:00 Test Item Value Reference Range Interpretation Comments POCT GLU (test code = 6667879579) 289 mg/dL 70-110 H Lab Interpretation (test code = Abnormal 70645-7) [facility] GLUCOSE (AUTOMATED)2022-02-12 08:56:00 Test Item Value Reference Range Interpretation Comments POCT GLU (test code = 7777270832) 289 mg/dL 70-110 H Lab Interpretation (test code = Abnormal 53697-8) [facility]12 05:05:55 Test Item Value Reference Range Interpretation Comments POCT GLU (test code = 3064657217) 390 mg/dL 70-110 H Lab Interpretation (test code = Abnormal 20358-9) [facility]12 05:05:55 Test Item Value Reference Range Interpretation Comments POCT GLU (test code = 8454336371) 390 mg/dL 70-110 H Lab Interpretation (test code = Abnormal 05572-4) [facility]12 02:10:28 Test Item Value Reference Range Interpretation Comments POCT GLU (test code = 5940756844) 458 mg/dL 70-110 HH Lab Interpretation (test code = Abnormal 16667-2) [facility] GLUCOSE (AUTOMATED)2022-02-12 02:10:28 Test Item Value Reference Range Interpretation Comments POCT GLU (test code = 6274853031) 458 mg/dL 70-110 HH Lab Interpretation (test code = Abnormal 68572-2) [facility]22-[facility]-11 23:02:31 Test Item Value Reference Range Interpretation Comments POCT GLU (test code = 6860266652) 386 mg/dL 70-110 H Lab Interpretation (test code = Abnormal 83782-8) [facility]-11 23:02:31 Test Item Value Reference Range Interpretation Comments POCT GLU (test code = 7929987203) 386 mg/dL 70-110 H Lab Interpretation (test code = Abnormal 67835-0) [facility]22-[facility]-11 17:30:37 Test Item Value Reference Range Interpretation Comments POCT GLU (test code = 7919821619) 172 mg/dL 70-110 H Lab Interpretation (test code = Abnormal 25674-1) [facility]11 17:30:37 Test Item Value Reference Range Interpretation Comments POCT GLU (test code = 3460545270) 172 mg/dL 70-110 H Lab Interpretation (test code = Abnormal 94300-1) [facility] 14:11:16 Test Item Value Reference Range Interpretation Comments POCT GLU (test code = 5252325083) 142 mg/dL 70-110 H Lab Interpretation (test code = Abnormal 16637-2) [facility] GLUCOSE (AUTOMATED)2022-02-11 14:11:16 Test Item Value Reference Range Interpretation Comments POCT GLU (test code = 9953889442) 142 mg/dL 70-110 H Lab Interpretation (test code = Abnormal 29489-2) [facility] WITH [id number] 13:16:05 Test Item Value Reference Range Interpretation Comments WBC (test code = See_Comment H [Automated 6690-2) message] The system which generated this result transmit cesar reference range : 4.20 - 10.70 10*3/?L. The reference range was not used to interpret this result as normal/abnormal . RBC (test code = See_Comment L [Automated 789-8) message] The system which generated this result transmit cesar reference range : 4.26 - 5.52 10*6/?L. The reference range was not used to interpret this result as normal/abnormal . HGB (test code = 8.5 g/dL 12.2-16.4 L 718-7) HCT (test code = 26.7 % 38.4-49.3 L 4544-3) MCV (test code = 77.6 fL 81.7-95.6 L 787-2) MCH (test code = 24.7 pg 26.1-32.7 L 785-6) MCHC (test code = 31.8 g/dL 31.2-35.0 786-4) RDW-SD (test code = 44.6 fL 38.5-51.6 84096-5) RDW-CV (test code = 16.2 % 12.1-15.4 H 788-0) PLT (test code = See_Comment H [Automated 777-3) message] The system which generated this result transmit cesar reference range : 150 - 328 10*3/ ?L. The reference range was not u sed to interpret th is result as normal/abnormal . MPV (test code = 10.1 fL 9.8-13.0 98989-0) NRBC/100 WBC (test See_Comment [Automat ed code = 9614844687) message] The system which generated this result transmit cesar reference range : 0.0 - 10.0 /100 WBCs. The reference range was not used to interpret this result as normal/abnormal . NRBC x10^3 (test code See_Comment [Auto mated = 6650295123) message] The system which generated this result transmit cesar reference range : 10*3/?L. The reference range was not used to interpret this result as normal/abnormal . GRAN MAT (NEUT) % 70.8 % (test code = 770-8) IMM GRAN % (test code 1.80 % = 4445461101) LYMPH % (test code = 12.3 % 736-9) MONO % (test code = 11.1 % 5905-5) EOS % (test code = 3.6 % 713-8) BASO % (test code = 0.4 % 706-2) GRAN MAT x10^3(ANC) 11.46 10*3/uL 1.99-6.95 H (test code = 3896373549) IMM GRAN x10^3 (test 0.29 10*3/uL 0.00-0.06 H code = 9262388808) LYMPH x10^3 (test code 1.99 10*3/uL 1.09-3.23 = 731-0) MONO x10^3 (test code 1.79 10*3/uL 0.36-1.02 H = 742-7) EOS x10^3 (test code = 0.58 10*3/uL 0.06-0.53 H 711-2) BASO x10^3 (test code 0.07 10*3/uL 0.01-0.09 = 704-7) REACT LYMPHS (test Rare code = 1374084297) Lab Interpretation Abnormal (test code = 88093-3) [facility] WITH [id number] 13:16:05 Test Item Value Reference Range Interpretation Comments WBC (test code = See_Comment H [Automated 6690-2) message] The system which generated this result transmit cesar reference range : 4.20 - 10.70 10*3/?L. The reference range was not used to interpret this result as normal/abnormal . RBC (test code = See_Comment L [Automated 789-8) message] The system which generated this result transmit cesar reference range : 4.26 - 5.52 10*6/?L. The reference range was not used to interpret this result as normal/abnormal . HGB (test code = 8.5 g/dL 12.2-16.4 L 718-7) HCT (test code = 26.7 % 38.4-49.3 L 4544-3) MCV (test code = 77.6 fL 81.7-95.6 L 787-2) MCH (test code = 24.7 pg 26.1-32.7 L 785-6) MCHC (test code = 31.8 g/dL 31.2-35.0 786-4) RDW-SD (test code = 44.6 fL 38.5-51.6 76281-8) RDW-CV (test code = 16.2 % 12.1-15.4 H 788-0) PLT (test code = See_Comment H [Automated 777-3) message] The system which generated this result transmit cesar reference range : 150 - 328 10*3/ ?L. The reference range was not u sed to interpret th is result as normal/abnormal . MPV (test code = 10.1 fL 9.8-13.0 50736-4) NRBC/100 WBC (test See_Comment [Automat ed code = 6194555690) message] The system which generated this result transmit cesar reference range : 0.0 - 10.0 /100 WBCs. The reference range was not used to interpret this result as normal/abnormal . NRBC x10^3 (test code See_Comment [Auto mated = 2273871478) message] The system which generated this result transmit cesar reference range : 10*3/?L. The reference range was not used to interpret this result as normal/abnormal . GRAN MAT (NEUT) % 70.8 % (test code = 770-8) IMM GRAN % (test code 1.80 % = 3152331345) LYMPH % (test code = 12.3 % 736-9) MONO % (test code = 11.1 % 5905-5) EOS % (test code = 3.6 % 713-8) BASO % (test code = 0.4 % 706-2) GRAN MAT x10^3(ANC) 11.46 10*3/uL 1.99-6.95 H (test code = 5657827280) IMM GRAN x10^3 (test 0.29 10*3/uL 0.00-0.06 H code = 8663073768) LYMPH x10^3 (test code 1.99 10*3/uL 1.09-3.23 = 731-0) MONO x10^3 (test code 1.79 10*3/uL 0.36-1.02 H = 742-7) EOS x10^3 (test code = 0.58 10*3/uL 0.06-0.53 H 711-2) BASO x10^3 (test code 0.07 10*3/uL 0.01-0.09 = 704-7) REACT LYMPHS (test Rare code = 9944614829) Lab Interpretation Abnormal (test code = 06410-3) [facility] METABOLIC PANEL (NA, K, CL, CO2, GLUCOSE, BUN, CREATININE, CA)2022-02-11 12:55:57 Test Item Value Reference Range Interpretation Comments NA (test code = 134 mmol/L 135-145 L 5413504183) K (test code = 4.5 mmol/L 3.5-5.0 Slight 6894267781) hemolysis CL (test code = 102 mmol/L 98-108 4341913031) CO2 TOTAL (test code 25 mmol/L 23-31 = 8139031258) AGAP (test code = 2-16 6265384475) BUN (test code = 17 mg/dL 7-23 Slight 7504877393) hemolysis GLUCOSE (test code = 126 mg/dL 70-110 H 8355797429) CREATININE (test code 0.78 mg/dL 0.60-1.25 = 5729062593) CALCIUM (test code = 8.0 mg/dL 8.6-10.6 L 4707667840) eGFR (test code = mL/min/1.73m2 9903155805) MILO (test code = MILO) Association of [...] tests). Lab Interpretation Abnormal (test code = 04606-3) [facility] 12:[facility]:57 Test Item Value Reference Range Interpretation Comments MAGNESIUM (test code = 2068815853) 2.1 mg/dL 1.7-2.4 Lab Interpretation (test code = Normal 34139-3) [facility] (NA, K, CL, CO2, GLUCOSE, BUN, CREATININE, CA)2022-02-11 12:55:57 Test Item Value Reference Range Interpretation Comments NA (test code = 134 mmol/L 135-145 L 6295823451) K (test code = 4.5 mmol/L 3.5-5.0 Slight 4731391467) hemolysis CL (test code = 102 mmol/L 98-108 5024110338) CO2 TOTAL (test code 25 mmol/L 23-31 = 6706671640) AGAP (test code = 2-16 7640735846) BUN (test code = 17 mg/dL 7-23 Slight 7297657373) hemolysis GLUCOSE (test code = 126 mg/dL 70-110 H 5063189640) CREATININE (test code 0.78 mg/dL 0.60-1.25 = 3834598277) CALCIUM (test code = 8.0 mg/dL 8.6-10.6 L 9703950259) eGFR (test code = mL/min/1.73m2 9891482244) MILO (test code = MILO) Association of [...] tests). Lab Interpretation Abnormal (test code = 18007-8) [facility] 12:55:57 Test Item Value Reference Range Interpretation Comments MAGNESIUM (test code = 0717254841) 2.1 mg/dL 1.7-2.4 Lab Interpretation (test code = Normal 04318-1) [facility]11 03:08:56 Test Item Value Reference Range Interpretation Comments POCT GLU (test code = 2133159722) 204 mg/dL 70-110 H Lab Interpretation (test code = Abnormal 72845-0) [facility] GLUCOSE (AUTOMATED)2022-02-11 03:08:56 Test Item Value Reference Range Interpretation Comments POCT GLU (test code = 9109462026) 204 mg/dL 70-110 H Lab Interpretation (test code = Abnormal 85397-9) [facility] GLUCOSE (AUTOMATED)2022-02-10 23:12:20 Test Item Value Reference Range Interpretation Comments POCT GLU (test code = 3870062511) 140 mg/dL 70-110 H Lab Interpretation (test code = Abnormal 92409-5) [facility] GLUCOSE (AUTOMATED)2022-02-10 23:12:20 Test Item Value Reference Range Interpretation Comments POCT GLU (test code = 0796234469) 140 mg/dL 70-110 H Lab Interpretation (test code = Abnormal 81043-5) [facility] WITH [id number] 13:06:05 Test Item Value Reference Range Interpretation Comments WBC (test code = See_Comment H [Automated 6690-2) message] The sy stem which [...] as normal/abnormal . HGB (test code = 8.6 g/dL 12.2-16.4 L 718-7) HCT (test code = 27.3 % 38.4-49.3 L 4544-3) MCV (test code = 78.7 fL 81.7-95.6 L 787-2) MCH (test code = 24.8 pg 26.1-32.7 L 785-6) MCHC (test code = 31.5 g/dL 31.2-35.0 786-4) RDW-SD (test code = 43.6 fL 38.5-51.6 58331-1) RDW-CV (test code = 15.9 % 12.1-15.4 H 788-0) PLT (test code = See_Comment H [Automated 777-3) message] The sy stem which generated this result transmitted reference range : 150 - 328 10*3/ ?L. The reference r jay was not used to interpret this result as normal/abnormal . MPV (test code = 10.0 fL 9.8-13.0 67029-9) NRBC/100 WBC (test See_Comment [Automat ed code = 6855145610) message] The system which generated this result transmitted reference range : 0.0 - 10.0 /100 WBCs. The refer ence range was not u sed to interpret th is result as normal/abnormal . NRBC x10^3 (test code See_Comment [Auto mated = 3933789346) message] The s ystem which generated this result transmitted reference range : 10*3/?L. The reference range was not used to interpret this result as normal/abnormal . GRAN MAT (NEUT) % 68.2 % (test code = 770-8) IMM GRAN % (test code 2.40 % = 6291538811) LYMPH % (test code = 13.1 % 736-9) MONO % (test code = 11.7 % 5905-5) EOS % (test code = 4.2 % 713-8) BASO % (test code = 0.4 % 706-2) GRAN MAT x10^3(ANC) 8.83 10*3/uL 1.99-6.95 H (test code = 5785166291) IMM GRAN x10^3 (test 0.31 10*3/uL 0.00-0.06 H code = 7806982669) LYMPH x10^3 (test code 1.70 10*3/uL 1.09-3.23 = 731-0) MONO x10^3 (test code 1.52 10*3/uL 0.36-1.02 H = 742-7) EOS x10^3 (test code = 0.55 10*3/uL 0.06-0.53 H 711-2) BASO x10^3 (test code 0.05 10*3/uL 0.01-0.09 = 704-7) Lab Interpretation Abnormal (test code = 31472-0) [facility] WITH [id number] 13:06:05 Test Item Value Reference Range Interpretation Comments WBC (test code = See_Comment H [Automated 6690-2) message] The sy stem which [...] as normal/abnormal . HGB (test code = 8.6 g/dL 12.2-16.4 L 718-7) HCT (test code = 27.3 % 38.4-49.3 L 4544-3) MCV (test code = 78.7 fL 81.7-95.6 L 787-2) MCH (test code = 24.8 pg 26.1-32.7 L 785-6) MCHC (test code = 31.5 g/dL 31.2-35.0 786-4) RDW-SD (test code = 43.6 fL 38.5-51.6 57167-8) RDW-CV (test code = 15.9 % 12.1-15.4 H 788-0) PLT (test code = See_Comment H [Automated 777-3) message] The sy stem which generated this result transmitted reference range : 150 - 328 10*3/ ?L. The reference r jay was not used to interpret this result as normal/abnormal . MPV (test code = 10.0 fL 9.8-13.0 79327-4) NRBC/100 WBC (test See_Comment [Automat ed code = 1983066765) message] The system which generated this result transmitted reference range : 0.0 - 10.0 /100 WBCs. The refer ence range was not u sed to interpret th is result as normal/abnormal . NRBC x10^3 (test code See_Comment [Auto mated = 6704221595) message] The s ystem which generated this result transmitted reference range : 10*3/?L. The reference range was not used to interpret this result as normal/abnormal . GRAN MAT (NEUT) % 68.2 % (test code = 770-8) IMM GRAN % (test code 2.40 % = 7573382289) LYMPH % (test code = 13.1 % 736-9) MONO % (test code = 11.7 % 5905-5) EOS % (test code = 4.2 % 713-8) BASO % (test code = 0.4 % 706-2) GRAN MAT x10^3(ANC) 8.83 10*3/uL 1.99-6.95 H (test code = 2061935863) IMM GRAN x10^3 (test 0.31 10*3/uL 0.00-0.06 H code = 0053767126) LYMPH x10^3 (test code 1.70 10*3/uL 1.09-3.23 = 731-0) MONO x10^3 (test code 1.52 10*3/uL 0.36-1.02 H = 742-7) EOS x10^3 (test code = 0.55 10*3/uL 0.06-0.53 H 711-2) BASO x10^3 (test code 0.05 10*3/uL 0.01-0.09 = 704-7) Lab Interpretation Abnormal (test code = 73027-6) [facility] METABOLIC PANEL (NA, K, CL, CO2, GLUCOSE, BUN, CREATININE, CA)2022-02-10 12:27:58 Test Item Value Reference Range Interpretation Comments NA (test code = 135 mmol/L 135-145 0337953896) K (test code = 4.1 mmol/L 3.5-5.0 0830030627) CL (test code = 101 mmol/L 98-108 8247597145) CO2 TOTAL (test code = 26 mmol/L 23-31 5016605760) AGAP (test code = 2-16 2346824227) BUN (test code = 16 mg/dL 7-23 1550040808) GLUCOSE (test code = 203 mg/dL 70-110 H 0683826618) CREATININE (test code = 0.80 mg/dL 0.60-1.25 9387373665) CALCIUM (test code = 8.0 mg/dL 8.6-10.6 L 9227147743) eGFR (test code = mL/min/1.73m2 5290030641) MILO (test code = MILO) Association of [...] tests). Lab Interpretation Abnormal (test code = 49801-7) [facility] Test Item Value Reference Range Interpretation Comments MAGNESIUM (test code = 9956696958) 2.1 mg/dL 1.7-2.4 Lab Interpretation (test code = Normal 47847-5) [facility] (NA, K, CL, CO2, GLUCOSE, BUN, CREATININE, CA)2022-02-10 12:27:58 Test Item Value Reference Range Interpretation Comments NA (test code = 135 mmol/L 135-145 8289963175) K (test code = 4.1 mmol/L 3.5-5.0 2242902561) CL (test code = 101 mmol/L 98-108 0327377713) CO2 TOTAL (test code = 26 mmol/L 23-31 5488942750) AGAP (test code = 2-16 1927567496) BUN (test code = 16 mg/dL 7-23 2115578465) GLUCOSE (test code = 203 mg/dL 70-110 H 0944812245) CREATININE (test code = 0.80 mg/dL 0.60-1.25 8209468339) CALCIUM (test code = 8.0 mg/dL 8.6-10.6 L 0942921362) eGFR (test code = mL/min/1.73m2 2901705841) MILO (test code = MILO) Association of [...] tests). Lab Interpretation Abnormal (test code = 44433-0) [facility] Test Item Value Reference Range Interpretation Comments MAGNESIUM (test code = 0915338935) 2.1 mg/dL 1.7-2.4 Lab Interpretation (test code = Normal 18820-5) [facility] GLUCOSE (AUTOMATED)2022-02-10 02:45:53 Test Item Value Reference Range Interpretation Comments POCT GLU (test code = 5212644253) 225 mg/dL 70-110 H Lab Interpretation (test code = Abnormal 23358-3) [facility] GLUCOSE (AUTOMATED)2022-02-10 02:45:53 Test Item Value Reference Range Interpretation Comments POCT GLU (test code = 0551249055) 225 mg/dL 70-110 H Lab Interpretation (test code = Abnormal 43911-4) [facility] GLUCOSE (AUTOMATED)2022-02-09 22:39:59 Test Item Value Reference Range Interpretation Comments POCT GLU (test code = 5300886157) 123 mg/dL 70-110 H Lab Interpretation (test code = Abnormal 83118-5) [facility] GLUCOSE (AUTOMATED)2022-02-09 22:39:59 Test Item Value Reference Range Interpretation Comments POCT GLU (test code = 3114688277) 123 mg/dL 70-110 H Lab Interpretation (test code = Abnormal 23520-2) [facility] GLUCOSE (AUTOMATED)2022-02-09 17:37:08 Test Item Value Reference Range Interpretation Comments POCT GLU (test code = 9598705803) 128 mg/dL 70-110 H Lab Interpretation (test code = Abnormal 65138-0) [facility] GLUCOSE (AUTOMATED)2022-02-09 17:37:08 Test Item Value Reference Range Interpretation Comments POCT GLU (test code = 9402712556) 128 mg/dL 70-110 H Lab Interpretation (test code = Abnormal 87886-1) [facility] GLUCOSE (AUTOMATED)2022-02-09 13:57:34 Test Item Value Reference Range Interpretation Comments POCT GLU (test code = 0370607449) 164 mg/dL 70-110 H Lab Interpretation (test code = Abnormal 05805-0) [facility] GLUCOSE (AUTOMATED)2022-02-09 13:57:34 Test Item Value Reference Range Interpretation Comments POCT GLU (test code = 1722064893) 164 mg/dL 70-110 H Lab Interpretation (test code = Abnormal 47333-3) [facility] WITH [id number] 13:08:46 Test Item Value Reference Range Interpretation Comments WBC (test code = See_Comment H [Automated 6690-2) message] The sy stem which [...] as normal/abnormal . HGB (test code = 8.7 g/dL 12.2-16.4 L 718-7) HCT (test code = 27.0 % 38.4-49.3 L 4544-3) MCV (test code = 76.9 fL 81.7-95.6 L 787-2) MCH (test code = 24.8 pg 26.1-32.7 L 785-6) MCHC (test code = 32.2 g/dL 31.2-35.0 786-4) RDW-SD (test code = 42.7 fL 38.5-51.6 82342-3) RDW-CV (test code = 15.5 % 12.1-15.4 H 788-0) PLT (test code = See_Comment H [Automated 777-3) message] The sy stem which generated this result transmitted reference range : 150 - 328 10*3/ ?L. The reference r jay was not used to interpret this result as normal/abnormal . MPV (test code = 9.9 fL 9.8-13.0 01046-9) NRBC/100 WBC (test See_Comment [Automat ed code = 5500368490) message] The system which generated this result transmitted reference range : 0.0 - 10.0 /100 WBCs. The refer ence range was not u sed to interpret th is result as normal/abnormal . NRBC x10^3 (test code See_Comment [Auto mated = 4963772061) message] The s ystem which generated this result transmitted reference range : 10*3/?L. The reference range was not used to interpret this result as normal/abnormal . GRAN MAT (NEUT) % 63.9 % (test code = 770-8) IMM GRAN % (test code 3.70 % = 6597912413) LYMPH % (test code = 17.0 % 736-9) MONO % (test code = 11.8 % 5905-5) EOS % (test code = 3.0 % 713-8) BASO % (test code = 0.6 % 706-2) GRAN MAT x10^3(ANC) 9.23 10*3/uL 1.99-6.95 H (test code = 9803108722) IMM GRAN x10^3 (test 0.53 10*3/uL 0.00-0.06 H code = 1950709824) LYMPH x10^3 (test code 2.46 10*3/uL 1.09-3.23 = 731-0) MONO x10^3 (test code 1.71 10*3/uL 0.36-1.02 H = 742-7) EOS x10^3 (test code = 0.43 10*3/uL 0.06-0.53 711-2) BASO x10^3 (test code 0.08 10*3/uL 0.01-0.09 = 704-7) HYPERSEG NEUTS (test Present See_Comment A [Autom ated code = 765-8) message] The s ystem which generated this result transmitted reference range : (none). The reference range was not used to interpret this result as normal/abnormal . Lab Interpretation Abnormal (test code = 72032-3) [facility] WITH [id number] 13:08:46 Test Item Value Reference Range Interpretation Comments WBC (test code = See_Comment H [Automated 8290-2) message] The sy stem which generated this result transmitted reference range : 4.20 - 10.70 10*3/?L. The reference range was not used to interpret this result as normal/abnormal . RBC (test code = See_Comment L [Automated 899-8) message] The sy stem which generated this result transmitted reference range : 4.26 - 5.52 10*6/?L. The reference range was not used to interpret this result as normal/abnormal . HGB (test code = 8.7 g/dL 12.2-16.4 L 718-7) HCT (test code = 27.0 % 38.4-49.3 L 4544-3) MCV (test code = 76.9 fL 81.7-95.6 L 787-2) MCH (test code = 24.8 pg 26.1-32.7 L 785-6) MCHC (test code = 32.2 g/dL 31.2-35.0 786-4) RDW-SD (test code = 42.7 fL 38.5-51.6 27369-5) RDW-CV (test code = 15.5 % 12.1-15.4 H 788-0) PLT (test code = See_Comment H [Automated 777-3) message] The sy stem which generated this result transmitted reference range : 150 - 328 10*3/ ?L. The reference r jay was not used to interpret this result as normal/abnormal . MPV (test code = 9.9 fL 9.8-13.0 49788-4) NRBC/100 WBC (test See_Comment [Automat ed code = 2193930947) message] The system which generated this result transmitted reference range : 0.0 - 10.0 /100 WBCs. The refer ence range was not u sed to interpret th is result as normal/abnormal . NRBC x10^3 (test code See_Comment [Auto mated = 1259266983) message] The s ystem which generated this result transmitted reference range : 10*3/?L. The reference range was not used to interpret this result as normal/abnormal . GRAN MAT (NEUT) % 63.9 % (test code = 770-8) IMM GRAN % (test code 3.70 % = 0350544516) LYMPH % (test code = 17.0 % 736-9) MONO % (test code = 11.8 % 5905-5) EOS % (test code = 3.0 % 713-8) BASO % (test code = 0.6 % 706-2) GRAN MAT x10^3(ANC) 9.23 10*3/uL 1.99-6.95 H (test code = 5556147492) IMM GRAN x10^3 (test 0.53 10*3/uL 0.00-0.06 H code = 4127738816) LYMPH x10^3 (test code 2.46 10*3/uL 1.09-3.23 = 731-0) MONO x10^3 (test code 1.71 10*3/uL 0.36-1.02 H = 742-7) EOS x10^3 (test code = 0.43 10*3/uL 0.06-0.53 711-2) BASO x10^3 (test code 0.08 10*3/uL 0.01-0.09 = 704-7) HYPERSEG NEUTS (test Present See_Comment A [Autom ated code = 765-8) message] The [employer] which generated this result transmitted reference range : (none). The reference range was not used to interpret this result as normal/abnormal . Lab Interpretation Abnormal (test code = 61580-7) [facility] METABOLIC PANEL (NA, K, CL, CO2, GLUCOSE, BUN, CREATININE, CA)2022-02-09 12:45:07 Test Item Value Reference Range Interpretation Comments NA (test code = 134 mmol/L 135-145 L 8457159373) K (test code = 4.6 mmol/L 3.5-5.0 8825264388) CL (test code = 101 mmol/L 98-108 4880652160) CO2 TOTAL (test code = 26 mmol/L 23-31 1534278576) AGAP (test code = 2-16 8966408297) BUN (test code = 23 mg/dL 7-23 8526140216) GLUCOSE (test code = 148 mg/dL 70-110 H 5291162274) CREATININE (test code = 0.84 mg/dL 0.60-1.25 5718647098) CALCIUM (test code = 8.1 mg/dL 8.6-10.6 L 5241912640) eGFR (test code = mL/min/1.73m2 0317795009) MILO (test code = MILO) Association of [...] tests). Lab Interpretation Abnormal (test code = 78063-5) [facility] 12:[facility]:07 Test Item Value Reference Range Interpretation Comments MAGNESIUM (test code = 2776139097) 1.9 mg/dL 1.7-2.4 Lab Interpretation (test code = Normal 94798-5) [facility] (NA, K, CL, CO2, GLUCOSE, BUN, CREATININE, CA)2022-02-09 12:45:07 Test Item Value Reference Range Interpretation Comments NA (test code = 134 mmol/L 135-145 L 2044667115) K (test code = 4.6 mmol/L 3.5-5.0 7640492437) CL (test code = 101 mmol/L 98-108 1022792180) CO2 TOTAL (test code = 26 mmol/L 23-31 5948726573) AGAP (test code = 2-16 2623153784) BUN (test code = 23 mg/dL 7-23 3975565375) GLUCOSE (test code = 148 mg/dL 70-110 H 2131588105) CREATININE (test code = 0.84 mg/dL 0.60-1.25 3468045740) CALCIUM (test code = 8.1 mg/dL 8.6-10.6 L 2428613390) eGFR (test code = mL/min/1.73m2 0101224585) MILO (test code = MILO) Association of [...] tests). Lab Interpretation Abnormal (test code = 68935-6) [facility] Test Item Value Reference Range Interpretation Comments MAGNESIUM (test code = 9767217123) 1.9 mg/dL 1.7-2.4 Lab Interpretation (test code = Normal 94695-1) [facility] GLUCOSE (AUTOMATED)2022-02-09 02:51:53 Test Item Value Reference Range Interpretation Comments POCT GLU (test code = 8559078474) 302 mg/dL 70-110 H Lab Interpretation (test code = Abnormal 87666-8) [facility] GLUCOSE (AUTOMATED)2022-02-09 02:51:53 Test Item Value Reference Range Interpretation Comments POCT GLU (test code = 7094357842) 302 mg/dL 70-110 H Lab Interpretation (test code = Abnormal 44537-3) [facility] GLUCOSE (AUTOMATED)2022-02-09 00:06:23 Test Item Value Reference Range Interpretation Comments POCT GLU (test code = 1348346654) 168 mg/dL 70-110 H Lab Interpretation (test code = Abnormal 24660-1) [facility] GLUCOSE (AUTOMATED)2022-02-09 00:06:23 Test Item Value Reference Range Interpretation Comments POCT GLU (test code = 9858714356) 168 mg/dL 70-110 H Lab Interpretation (test code = Abnormal 06635-3) [facility] GLUCOSE (AUTOMATED)2022-02-08 17:58:07 Test Item Value Reference Range Interpretation Comments POCT GLU (test code = 7497032085) 139 mg/dL 70-110 H Lab Interpretation (test code = Abnormal 27918-9) [facility] GLUCOSE (AUTOMATED)2022-02-08 17:58:07 Test Item Value Reference Range Interpretation Comments POCT GLU (test code = 2087760932) 139 mg/dL 70-110 H Lab Interpretation (test code = Abnormal 89015-2) [facility] GLUCOSE (AUTOMATED)2022-02-08 14:27:40 Test Item Value Reference Range Interpretation Comments POCT GLU (test code = 9991861761) 132 mg/dL 70-110 H Lab Interpretation (test code = Abnormal 09540-3) [facility] GLUCOSE (AUTOMATED)2022-02-08 14:27:40 Test Item Value Reference Range Interpretation Comments POCT GLU (test code = 1550467200) 132 mg/dL 70-110 H Lab Interpretation (test code = Abnormal 01895-3) [facility] METABOLIC PANEL (NA, K, CL, CO2, GLUCOSE, BUN, CREATININE, CA)2022-02-08 11:22:58 Test Item Value Reference Range Interpretation Comments NA (test code = 134 mmol/L 135-145 L 6183877433) K (test code = 4.3 mmol/L 3.5-5.0 3308364056) CL (test code = 101 mmol/L 98-108 0356056139) CO2 TOTAL (test code = 31 mmol/L 23-31 6095975166) AGAP (test code = 2-16 4604763583) BUN (test code = 32 mg/dL 7-23 H 8992751346) GLUCOSE (test code = 130 mg/dL 70-110 H 6418169259) CREATININE (test code = 0.84 mg/dL 0.60-1.25 3143889939) CALCIUM (test code = 8.2 mg/dL 8.6-10.6 L 4828369131) eGFR (test code = mL/min/1.73m2 3036615922) MILO (test code = MILO) Association of [...] tests). Lab Interpretation Abnormal (test code = 62721-6) [facility]58 Test Item Value Reference Range Interpretation Comments MAGNESIUM (test code = 9317762365) 2.1 mg/dL 1.7-2.4 Lab Interpretation (test code = Normal 06776-8) [facility] METABOLIC PANEL (NA, K, CL, CO2, GLUCOSE, BUN, CREATININE, CA)2022-02-08 11:22:58 Test Item Value Reference Range Interpretation Comments NA (test code = 134 mmol/L 135-145 L 7245627353) K (test code = 4.3 mmol/L 3.5-5.0 9171861385) CL (test code = 101 mmol/L 98-108 6809266130) CO2 TOTAL (test code = 31 mmol/L 23-31 1730227366) AGAP (test code = 2-16 9100727871) BUN (test code = 32 mg/dL 7-23 H 7241794144) GLUCOSE (test code = 130 mg/dL 70-110 H 8838478910) CREATININE (test code = 0.84 mg/dL 0.60-1.25 1327729753) CALCIUM (test code = 8.2 mg/dL 8.6-10.6 L 2856167305) eGFR (test code = mL/min/1.73m2 6515221126) MILO (test code = MILO) Association of [...] tests). Lab Interpretation Abnormal (test code = 65306-0) [facility] 11[facility]22:58 Test Item Value Reference Range Interpretation Comments MAGNESIUM (test code = 7742836995) 2.1 mg/dL 1.7-2.4 Lab Interpretation (test code = Normal 84935-4) [facility] WITH [id number] 11:19:00 Test Item Value Reference Range Interpretation Comments WBC (test code = See_Comment H [Automated 6690-2) message] The system which generated this result transmit cesar reference range : 4.20 - 10.70 10*3/?L. The reference range was not used to interpret this result as normal/abnormal . RBC (test code = See_Comment L [Automated 789-8) message] The system which generated this result transmit cesar reference range : 4.26 - 5.52 10*6/?L. The reference range was not used to interpret this result as normal/abnormal . HGB (test code = 8.4 g/dL 12.2-16.4 L 718-7) HCT (test code = 26.0 % 38.4-49.3 L 4544-3) MCV (test code = 76.5 fL 81.7-95.6 L 787-2) MCH (test code = 24.7 pg 26.1-32.7 L 785-6) MCHC (test code = 32.3 g/dL 31.2-35.0 786-4) RDW-SD (test code = 41.9 fL 38.5-51.6 12578-5) RDW-CV (test code = 15.2 % 12.1-15.4 788-0) PLT (test code = See_Comment H [Automated 777-3) message] The system which generated this result transmit cesar reference range : 150 - 328 10*3/ ?L. The reference range was not u sed to interpret th is result as normal/abnormal . MPV (test code = 9.5 fL 9.8-13.0 L 69855-0) NRBC/100 WBC (test See_Comment [Automat ed code = 7839755946) message] The system which generated this result transmit cesar reference range : 0.0 - 10.0 /100 WBCs. The reference range was not used to interpret this result as normal/abnormal . NRBC x10^3 (test code See_Comment [Auto mated = 5815485776) message] The system which generated this result transmit cesar reference range : 10*3/?L. The reference range was not used to interpret this result as normal/abnormal . GRAN MAT (NEUT) % 70.2 % (test code = 770-8) IMM GRAN % (test code 2.30 % = 0414847734) LYMPH % (test code = 17.5 % 736-9) MONO % (test code = 8.4 % 5905-5) EOS % (test code = 1.2 % 713-8) BASO % (test code = 0.4 % 706-2) GRAN MAT x10^3(ANC) 11.26 10*3/uL 1.99-6.95 H (test code = 1047423861) IMM GRAN x10^3 (test 0.37 10*3/uL 0.00-0.06 H code = 8577992716) LYMPH x10^3 (test code 2.81 10*3/uL 1.09-3.23 = 731-0) MONO x10^3 (test code 1.35 10*3/uL 0.36-1.02 H = 742-7) EOS x10^3 (test code = 0.20 10*3/uL 0.06-0.53 711-2) BASO x10^3 (test code 0.06 10*3/uL 0.01-0.09 = 704-7) Lab Interpretation Abnormal (test code = 83145-0) [facility] WITH [id number] 11:19:00 Test Item Value Reference Range Interpretation Comments WBC (test code = See_Comment H [Automated 6690-2) message] The system which generated this result transmit cesar reference range : 4.20 - 10.70 10*3/?L. The reference range was not used to interpret this result as normal/abnormal . RBC (test code = See_Comment L [Automated 789-8) message] The system which generated this result transmit cesar reference range : 4.26 - 5.52 10*6/?L. The reference range was not used to interpret this result as normal/abnormal . HGB (test code = 8.4 g/dL 12.2-16.4 L 718-7) HCT (test code = 26.0 % 38.4-49.3 L 4544-3) MCV (test code = 76.5 fL 81.7-95.6 L 787-2) MCH (test code = 24.7 pg 26.1-32.7 L 785-6) MCHC (test code = 32.3 g/dL 31.2-35.0 786-4) RDW-SD (test code = 41.9 fL 38.5-51.6 78788-9) RDW-CV (test code = 15.2 % 12.1-15.4 788-0) PLT (test code = See_Comment H [Automated 777-3) message] The system which generated this result transmit cesar reference range : 150 - 328 10*3/ ?L. The reference range was not u sed to interpret th is result as normal/abnormal . MPV (test code = 9.5 fL 9.8-13.0 L 73293-3) NRBC/100 WBC (test See_Comment [Automat ed code = 5241343747) message] The system which generated this result transmit cesar reference range : 0.0 - 10.0 /100 WBCs. The reference range was not used to interpret this result as normal/abnormal . NRBC x10^3 (test code See_Comment [Auto mated = 9475547589) message] The system which generated this result transmit cesar reference range : 10*3/?L. The reference range was not used to interpret this result as normal/abnormal . GRAN MAT (NEUT) % 70.2 % (test code = 770-8) IMM GRAN % (test code 2.30 % = 9712560949) LYMPH % (test code = 17.5 % 736-9) MONO % (test code = 8.4 % 5905-5) EOS % (test code = 1.2 % 713-8) BASO % (test code = 0.4 % 706-2) GRAN MAT x10^3(ANC) 11.26 10*3/uL 1.99-6.95 H (test code = 8928338639) IMM GRAN x10^3 (test 0.37 10*3/uL 0.00-0.06 H code = 6147463120) LYMPH x10^3 (test code 2.81 10*3/uL 1.09-3.23 = 731-0) MONO x10^3 (test code 1.35 10*3/uL 0.36-1.02 H = 742-7) EOS x10^3 (test code = 0.20 10*3/uL 0.06-0.53 711-2) BASO x10^3 (test code 0.06 10*3/uL 0.01-0.09 = 704-7) Lab Interpretation Abnormal (test code = 80877-7) [facility] GLUCOSE (AUTOMATED)2022-02-08 03:02:54 Test Item Value Reference Range Interpretation Comments POCT GLU (test code = 8661362391) 193 mg/dL 70-110 H Lab Interpretation (test code = Abnormal 70822-8) [facility] GLUCOSE (AUTOMATED)2022-02-08 03:02:54 Test Item Value Reference Range Interpretation Comments POCT GLU (test code = 4509288568) 193 mg/dL 70-110 H Lab Interpretation (test code = Abnormal 67318-5) [facility] GLUCOSE (AUTOMATED)2022-02-07 22:59:49 Test Item Value Reference Range Interpretation Comments POCT GLU (test code = 4012475731) 168 mg/dL 70-110 H Lab Interpretation (test code = Abnormal 06950-9) [facility] GLUCOSE (AUTOMATED)2022-02-07 22:59:49 Test Item Value Reference Range Interpretation Comments POCT GLU (test code = 6791789605) 168 mg/dL 70-110 H Lab Interpretation (test code = Abnormal 14930-4) [facility] GLUCOSE (AUTOMATED)2022-02-07 17:27:23 Test Item Value Reference Range Interpretation Comments POCT GLU (test code = 5733640823) 171 mg/dL 70-110 H Lab Interpretation (test code = Abnormal 17993-2) [facility] GLUCOSE (AUTOMATED)2022-02-07 17:27:23 Test Item Value Reference Range Interpretation Comments POCT GLU (test code = 2231058475) 171 mg/dL 70-110 H Lab Interpretation (test code = Abnormal 26025-2) [facility] GLUCOSE (AUTOMATED)2022-02-07 17:27:23 Test Item Value Reference Range Interpretation Comments POCT GLU (test code = 8596541102) 171 mg/dL 70-110 H Lab Interpretation (test code = Abnormal 63455-8) [facility] GLUCOSE (AUTOMATED)2022-02-07 17:27:23 Test Item Value Reference Range Interpretation Comments POCT GLU (test code = 6685399605) 171 mg/dL 70-110 H Lab Interpretation (test code = Abnormal 21616-2) [facility] GLUCOSE (AUTOMATED)2022-02-07 13:44:35 Test Item Value Reference Range Interpretation Comments POCT GLU (test code = 2832100922) 173 mg/dL 70-110 H Lab Interpretation (test code = Abnormal 29688-5) [facility] GLUCOSE (AUTOMATED)2022-02-07 13:44:35 Test Item Value Reference Range Interpretation Comments POCT GLU (test code = 6087725068) 173 mg/dL 70-110 H Lab Interpretation (test code = Abnormal 48226-9) [facility] GLUCOSE (AUTOMATED)2022-02-07 03:43:15 Test Item Value Reference Range Interpretation Comments POCT GLU (test code = 7699114700) 253 mg/dL 70-110 H Lab Interpretation (test code = Abnormal 98709-5) [facility] GLUCOSE (AUTOMATED)2022-02-07 03:43:15 Test Item Value Reference Range Interpretation Comments POCT GLU (test code = 0478876899) 253 mg/dL 70-110 H Lab Interpretation (test code = Abnormal 07678-5) [facility] GLUCOSE (AUTOMATED)2022-02-06 23:06:13 Test Item Value Reference Range Interpretation Comments POCT GLU (test code = [id number]) 237 mg/dL 70-110 H Lab Interpretation (test code = Abnormal 29255-6[facility]06:13 Test Item Value Reference Range Interpretation Comments POCT GLU (test code = [id number]) 237 mg/dL 70-110 H Lab Interpretation (test code = Abnormal 04258-5) [facility] 17:53:23 Test Item Value Reference Range Interpretation Comments POCT GLU (test code = [id number]) 255 mg/dL 70-110 H Lab Interpretation (test code = Abnormal 69328-8) [facility] 17:53:23 Test Item Value Reference Range Interpretation Comments POCT GLU (test code = [id number]) 255 mg/dL 70-110 H Lab Interpretation (test code = Abnormal 61731-1) [facility] GLUCOSE (AUTOMATED)2022-02-06 14:04:47 Test Item Value Reference Range Interpretation Comments POCT GLU (test code = [id number]) 200 mg/dL 70-110 H Lab Interpretation (test code = Abnormal 29479-6) [facility] GLUCOSE (AUTOMATED)2022-02-06 14:04:47 Test Item Value Reference Range Interpretation Comments POCT GLU (test code = 5858147261) 200 mg/dL 70-110 H Lab Interpretation (test code = Abnormal 06104-5) [facility] GLUCOSE (AUTOMATED)2022-02-06 02:59:12 Test Item Value Reference Range Interpretation Comments POCT GLU (test code = 2564619223) 260 mg/dL 70-110 H Lab Interpretation (test code = Abnormal 20337-9) [facility] GLUCOSE (AUTOMATED)2022-02-06 02:59:12 Test Item Value Reference Range Interpretation Comments POCT GLU (test code = 4075294212) 260 mg/dL 70-110 H Lab Interpretation (test code = Abnormal 49677-7) [facility] 01:45:38 Test Item Value Reference Range Interpretation Comments POCT GLU (test code = 4735831858) 170 mg/dL 70-110 H Lab Interpretation (test code = Abnormal 69062-2) [facility] GLUCOSE (AUTOMATED)2022-02-06 01:45:38 Test Item Value Reference Range Interpretation Comments POCT GLU (test code = 4840832238) 170 mg/dL 70-110 H Lab Interpretation (test code = Abnormal 05769-3) [facility] GLUCOSE (AUTOMATED)2022-02-05 22:58:35 Test Item Value Reference Range Interpretation Comments POCT GLU (test code = 4120540407) 133 mg/dL 70-110 H Lab Interpretation (test code = Abnormal 17912-4) [facility] GLUCOSE (AUTOMATED)2022-02-05 22:58:35 Test Item Value Reference Range Interpretation Comments POCT GLU (test code = 9232886906) 133 mg/dL 70-110 H Lab Interpretation (test code = Abnormal 64198-6) [facility] GLUCOSE (AUTOMATED)2022-02-05 14:52:18 Test Item Value Reference Range Interpretation Comments POCT GLU (test code = 6117722803) 134 mg/dL 70-110 H Lab Interpretation (test code = Abnormal 29272-1) [facility] GLUCOSE (AUTOMATED)2022-02-05 14:52:18 Test Item Value Reference Range Interpretation Comments POCT GLU (test code = 3085009849) 134 mg/dL 70-110 H Lab Interpretation (test code = Abnormal 23690-1) [facility] WITH [id number] 09:58:07 Test Item Value Reference Range Interpretation Comments WBC (test code = See_Comment H [Automated 6690-2) message] The system which generated this result transmit cesar reference range : 4.20 - 10.70 10*3/?L. The reference range was not used to interpret this result as normal/abnormal . RBC (test code = See_Comment L [Automated 789-8) message] The system which generated this result transmit cesar reference range : 4.26 - 5.52 10*6/?L. The reference range was not used to interpret this result as normal/abnormal . HGB (test code = 8.8 g/dL 12.2-16.4 L 718-7) HCT (test code = 27.7 % 38.4-49.3 L 4544-3) MCV (test code = 76.9 fL 81.7-95.6 L 787-2) MCH (test code = 24.4 pg 26.1-32.7 L 785-6) MCHC (test code = 31.8 g/dL 31.2-35.0 786-4) RDW-SD (test code = 41.7 fL 38.5-51.6 57965-2) RDW-CV (test code = 15.0 % 12.1-15.4 788-0) PLT (test code = See_Comment H [Automated 777-3) message] The system which generated this result transmit cesar reference range : 150 - 328 10*3/ ?L. The reference range was not u sed to interpret th is result as normal/abnormal . MPV (test code = 9.6 fL 9.8-13.0 L 49087-8) NRBC/100 WBC (test See_Comment [Automat ed code = 0995677221) message] The system which generated this result transmit cesar reference range : 0.0 - 10.0 /100 WBCs. The reference range was not used to interpret this result as normal/abnormal . NRBC x10^3 (test code See_Comment [Auto mated = 1783353601) message] The system which generated this result transmit cesar reference range : 10*3/?L. The reference range was not used to interpret this result as normal/abnormal . GRAN MAT (NEUT) % 75.9 % (test code = 770-8) IMM GRAN % (test code 0.80 % = 6829577258) LYMPH % (test code = 11.9 % 736-9) MONO % (test code = 6.6 % 5905-5) EOS % (test code = 4.4 % 713-8) BASO % (test code = 0.4 % 706-2) GRAN MAT x10^3(ANC) 16.15 10*3/uL 1.99-6.95 H (test code = 2752882221) IMM GRAN x10^3 (test 0.16 10*3/uL 0.00-0.06 H code = 3585911508) LYMPH x10^3 (test code 2.52 10*3/uL 1.09-3.23 = 731-0) MONO x10^3 (test code 1.40 10*3/uL 0.36-1.02 H = 742-7) EOS x10^3 (test code = 0.93 10*3/uL 0.06-0.53 H 711-2) BASO x10^3 (test code 0.09 10*3/uL 0.01-0.09 = 704-7) Lab Interpretation Abnormal (test code = 52057-1) [facility] WITH [id number] 09:58:07 Test Item Value Reference Range Interpretation Comments WBC (test code = See_Comment H [Automated 6690-2) message] The system which generated this result transmit cesar reference range : 4.20 - 10.70 10*3/?L. The reference range was not used to interpret this result as normal/abnormal . RBC (test code = See_Comment L [Automated 789-8) message] The system which generated this result transmit cesar reference range : 4.26 - 5.52 10*6/?L. The reference range was not used to interpret this result as normal/abnormal . HGB (test code = 8.8 g/dL 12.2-16.4 L 718-7) HCT (test code = 27.7 % 38.4-49.3 L 4544-3) MCV (test code = 76.9 fL 81.7-95.6 L 787-2) MCH (test code = 24.4 pg 26.1-32.7 L 785-6) MCHC (test code = 31.8 g/dL 31.2-35.0 786-4) RDW-SD (test code = 41.7 fL 38.5-51.6 72403-9) RDW-CV (test code = 15.0 % 12.1-15.4 788-0) PLT (test code = See_Comment H [Automated 777-3) message] The system which generated this result transmit cesar reference range : 150 - 328 10*3/ ?L. The reference range was not u sed to interpret th is result as normal/abnormal . MPV (test code = 9.6 fL 9.8-13.0 L 83951-3) NRBC/100 WBC (test See_Comment [Automat ed code = 5490301710) message] The system which generated this result transmit cesar reference range : 0.0 - 10.0 /100 WBCs. The reference range was not used to interpret this result as normal/abnormal . NRBC x10^3 (test code See_Comment [Auto mated = 9687142675) message] The system which generated this result transmit cesar reference range : 10*3/?L. The reference range was not used to interpret this result as normal/abnormal . GRAN MAT (NEUT) % 75.9 % (test code = 770-8) IMM GRAN % (test code 0.80 % = 6979383210) LYMPH % (test code = 11.9 % 736-9) MONO % (test code = 6.6 % 5905-5) EOS % (test code = 4.4 % 713-8) BASO % (test code = 0.4 % 706-2) GRAN MAT x10^3(ANC) 16.15 10*3/uL 1.99-6.95 H (test code = 6724978315) IMM GRAN x10^3 (test 0.16 10*3/uL 0.00-0.06 H code = 1242375903) LYMPH x10^3 (test code 2.52 10*3/uL 1.09-3.23 = 731-0) MONO x10^3 (test code 1.40 10*3/uL 0.36-1.02 H = 742-7) EOS x10^3 (test code = 0.93 10*3/uL 0.06-0.53 H 711-2) BASO x10^3 (test code 0.09 10*3/uL 0.01-0.09 = 704-7) Lab Interpretation Abnormal (test code = 04509-3) [facility] METABOLIC PANEL (NA, K, CL, CO2, GLUCOSE, BUN, CREATININE, CA)2022-02-05 09:37:26 Test Item Value Reference Range Interpretation Comments NA (test code = 136 mmol/L 135-145 0951040990) K (test code = 3.8 mmol/L 3.5-5.0 6367150368) CL (test code = 102 mmol/L 98-108 1063919085) CO2 TOTAL (test code = 29 mmol/L 23-31 7432107816) AGAP (test code = 2-16 0404920973) BUN (test code = 14 mg/dL 7-23 0732788981) GLUCOSE (test code = 123 mg/dL 70-110 H 1858475573) CREATININE (test code = 0.84 mg/dL 0.60-1.25 4555129158) CALCIUM (test code = 8.6 mg/dL 8.6-10.6 7089917006) eGFR (test code = mL/min/1.73m2 8278272976) MILO (test code = MILO) Association of [...] tests). Lab Interpretation Abnormal (test code = 48581-7) [facility] Test Item Value Reference Range Interpretation Comments MAGNESIUM (test code = 2692975489) 1.9 mg/dL 1.7-2.4 Lab Interpretation (test code = Normal 93041-2) [facility] (NA, K, CL, CO2, GLUCOSE, BUN, CREATININE, CA)2022-02-05 09:37:26 Test Item Value Reference Range Interpretation Comments NA (test code = 136 mmol/L 135-145 5196946083) K (test code = 3.8 mmol/L 3.5-5.0 5856437779) CL (test code = 102 mmol/L 98-108 5229244112) CO2 TOTAL (test code = 29 mmol/L 23-31 0098803914) AGAP (test code = 2-16 3971297514) BUN (test code = 14 mg/dL 7-23 8695881236) GLUCOSE (test code = 123 mg/dL 70-110 H 9684914640) CREATININE (test code = 0.84 mg/dL 0.60-1.25 1718417791) CALCIUM (test code = 8.6 mg/dL 8.6-10.6 0992979161) eGFR (test code = mL/min/1.73m2 1285451944) MILO (test code = MILO) Association of [...] tests). Lab Interpretation Abnormal (test code = 36607-9) [facility] 09:37:26 Test Item Value Reference Range Interpretation Comments MAGNESIUM (test code = 8557728158) 1.9 mg/dL 1.7-2.4 Lab Interpretation (test code = Normal 70769-5) [facility] GLUCOSE (AUTOMATED)2022-02-05 03:19:53 Test Item Value Reference Range Interpretation Comments POCT GLU (test code = 2586385002) 125 mg/dL 70-110 H Lab Interpretation (test code = Abnormal 30660-2) [facility] GLUCOSE (AUTOMATED)2022-02-05 03:19:53 Test Item Value Reference Range Interpretation Comments POCT GLU (test code = 2422371257) 125 mg/dL 70-110 H Lab Interpretation (test code = Abnormal 14949-9) [facility] GLUCOSE (AUTOMATED)2022-02-04 22:57:26 Test Item Value Reference Range Interpretation Comments POCT GLU (test code = 9799625292) 108 mg/dL 70-110 Lab Interpretation (test code = Normal 18654-1) [facility] GLUCOSE (AUTOMATED)2022-02-04 22:57:26 Test Item Value Reference Range Interpretation Comments POCT GLU (test code = 0134734372) 108 mg/dL 70-110 Lab Interpretation (test code = Normal 63511-0) [facility] (NA, K, CL, CO2, GLUCOSE, BUN, CREATININE, CA)2022-02-04 20:43:32 Test Item Value Reference Range Interpretation Comments NA (test code = 138 mmol/L 135-145 5434051364) K (test code = 3.9 mmol/L 3.5-5.0 Slight 3956153005) hemolysis CL (test code = 101 mmol/L 98-108 7443956875) CO2 TOTAL (test code 29 mmol/L 23-31 = 3544081538) AGAP (test code = 2-16 0917829069) BUN (test code = 16 mg/dL 7-23 Slight 5437243171) hemolysis GLUCOSE (test code = 126 mg/dL 70-110 H 1866689663) CREATININE (test code 0.84 mg/dL 0.60-1.25 = 4694561176) CALCIUM (test code = 8.7 mg/dL 8.6-10.6 1162227632) eGFR (test code = mL/min/1.73m2 9359107076) MILO (test code = MILO) Association of [...] tests). Lab Interpretation Abnormal (test code = 44783-8) [facility] METABOLIC PANEL (NA, K, CL, CO2, GLUCOSE, BUN, CREATININE, CA)2022-02-04 20:43:32 Test Item Value Reference Range Interpretation Comments NA (test code = 138 mmol/L 135-145 5815286539) K (test code = 3.9 mmol/L 3.5-5.0 Slight 6346591267) hemolysis CL (test code = 101 mmol/L 98-108 8622424069) CO2 TOTAL (test code 29 mmol/L 23-31 = 3498840781) AGAP (test code = 2-16 0705962329) BUN (test code = 16 mg/dL 7-23 Slight 0254540376) hemolysis GLUCOSE (test code = 126 mg/dL 70-110 H 0404833618) CREATININE (test code 0.84 mg/dL 0.60-1.25 = 0410504384) CALCIUM (test code = 8.7 mg/dL 8.6-10.6 1409111298) eGFR (test code = mL/min/1.73m2 1062543225) MILO (test code = MILO) Association of [...] tests). Lab Interpretation Abnormal (test code = 00949-9) [facility] / [id number] 20:30:14 Test Item Value Reference Range Interpretation Comments PROTIME PATIENT (test See_Comment H [Auto mated message] code = 5964-2) The system [employer] generated this result transmitted ref erence range: 10.1 - 1 2.6 Seconds. The reference range was not used to int erpret this result as normal/abnormal . INR (test code = 6301-6) Nor mal INR <1.1; Warfarin Therap eutic range 2.0 to 3. 0 or 2.5 to 3.5, dep ending upon the indica tions. Lab Interpretation (test Abnormal code = 53680-9) [facility] [id number] 20:30:14 Test Item Value Reference Range Interpretation Comments PROTIME PATIENT (test See_Comment H [Auto mated message] code = 5964-2) The system [employer] generated this result transmitted ref erence range: 10.1 - 1 2.6 Seconds. The reference range was not used to int erpret this result as normal/abnormal . INR (test code = 6301-6) Nor mal INR <1.1; Warfarin Therap eutic range 2.0 to 3. 0 or 2.5 to 3.5, dep ending upon the indica tions. Lab Interpretation (test Abnormal code = 96728-0) [facility] / [id number] 20:30:14 Test Item Value Reference Range Interpretation Comments PROTIME PATIENT (test See_Comment H [Auto mated message] code = 5964-2) The system [employer] generated this result transmitted ref erence range: 10.1 - 1 2.6 Seconds. The reference range was not used to int erpret this result as normal/abnormal . INR (test code = 6301-6) Nor mal INR <1.1; Warfarin Therap eutic range 2.0 to 3. 0 or 2.5 to 3.5, dep ending upon the indica tions. Lab Interpretation (test Abnormal code = 11406-6) [facility] / [id number] 20:30:14 Test Item Value Reference Range Interpretation Comments PROTIME PATIENT (test See_Comment H [Auto mated message] code = 5964-2) The system [employer] generated this result transmitted ref erence range: 10.1 - 1 2.6 Seconds. The reference range was not used to int erpret this result as normal/abnormal . INR (test code = 6301-6) Nor mal INR <1.1; Warfarin Therap eutic range 2.0 to 3. 0 or 2.5 to 3.5, dep ending upon the indica tions. Lab Interpretation (test Abnormal code = 00723-7) [facility] GLUCOSE (AUTOMATED)2022-02-04 18:10:47 Test Item Value Reference Range Interpretation Comments POCT GLU (test code = 9137125874) 116 mg/dL 70-110 H Lab Interpretation (test code = Abnormal 81117-3) [facility] GLUCOSE (AUTOMATED)2022-02-04 18:10:47 Test Item Value Reference Range Interpretation Comments POCT GLU (test code = 5552757933) 116 mg/dL 70-110 H Lab Interpretation (test code = Abnormal 44469-2) [facility] GLUCOSE (AUTOMATED)2022-02-04 14:17:06 Test Item Value Reference Range Interpretation Comments POCT GLU (test code = 5890432687) 144 mg/dL 70-110 H Lab Interpretation (test code = Abnormal 83239-9) [facility] GLUCOSE (AUTOMATED)2022-02-04 14:17:06 Test Item Value Reference Range Interpretation Comments POCT GLU (test code = 2373725091) 144 mg/dL 70-110 H Lab Interpretation (test code = Abnormal 13813-7) [facility] GLUCOSE (AUTOMATED)2022-02-04 03:00:39 Test Item Value Reference Range Interpretation Comments POCT GLU (test code = 8282297298) 148 mg/dL 70-110 H Lab Interpretation (test code = Abnormal 55399-3) [facility] GLUCOSE (AUTOMATED)2022-02-04 03:00:39 Test Item Value Reference Range Interpretation Comments POCT GLU (test code = 0754949703) 148 mg/dL 70-110 H Lab Interpretation (test code = Abnormal 07029-5) [facility] GLUCOSE (AUTOMATED)2022-02-03 22:38:46 Test Item Value Reference Range Interpretation Comments POCT GLU (test code = 3578105465) 101 mg/dL 70-110 Lab Interpretation (test code = Normal 06843-5) [facility] GLUCOSE (AUTOMATED)2022-02-03 22:38:46 Test Item Value Reference Range Interpretation Comments POCT GLU (test code = 7175195377) 101 mg/dL 70-110 Lab Interpretation (test code = Normal 46155-0) [facility] GLUCOSE (AUTOMATED)2022-02-03 17:28:33 Test Item Value Reference Range Interpretation Comments POCT GLU (test code = 7209567931) 150 mg/dL 70-110 H Lab Interpretation (test code = Abnormal 00558-7) [facility] GLUCOSE (AUTOMATED)2022-02-03 17:28:33 Test Item Value Reference Range Interpretation Comments POCT GLU (test code = 7445986437) 150 mg/dL 70-110 H Lab Interpretation (test code = Abnormal 23964-4) [facility] GLUCOSE (AUTOMATED)2022-02-03 14:30:38 Test Item Value Reference Range Interpretation Comments POCT GLU (test code = 0110200337) 116 mg/dL 70-110 H Lab Interpretation (test code = Abnormal 35846-0) [facility] GLUCOSE (AUTOMATED)2022-02-03 14:30:38 Test Item Value Reference Range Interpretation Comments POCT GLU (test code = 6404745084) 116 mg/dL 70-110 H Lab Interpretation (test code = Abnormal 78182-7) [facility]- XR KNEE 1 OR 2 V [id number] 13:46:00 [facility]Name: ADONIS HUMMEL LEXI : 1950 Sex: MPatient Name: ADONIS HUMMEL LEXI Unit No: [id number] EXAMS: CPT CODE: [id number] XR KNEE 1 OR 2 VRT 71775 IMAGES PROVIDED: 2 FINDINGS: Postoperative changes from right total knee arthoplasty demonstrated without evidence of immediate complication. No acute fracture is visualized. IMPRESSION: Postoperative exam as above. at 1346 Reported and signed by: Francisco Mendoza M.D. CC: Valentina Sherman MD Technologist: WANG VERAS. RT(R) Transcribed D/ (5916) DianeTiesha [facility] NAME: ADONIS HUMMEL [address] [place] [address] PHYS: PATAN. Valentina Sherman MD : 1950 AGE: 70 SEX: M [place] [address] LOC: Y.520 A PHONE #: [phone] EXAM DATE: 11/07/2021 STATUS: ADM IN FAX #: [phone] RAD #: D/C DT PAGE 1 Signed Report Patient Name: ADONIS HUMMEL Unit No: [id number] EXAMS: CPT CODE: [id number] XR KNEE 1 OR 2 V RT 63858 (Continued) Orig Print D/T: S: 11/08/2021 (1350) [facility] NAME: ADONIS HUMMEL [address] [place] [address] PHYS: PATAN. - Valentina Sherman MD : 1950 AGE: 70 SEX: M [place] [address] LOC: Y.520A PHONE #: [phone] EXAM DATE: 11/07/2021 STATUS: ADM IN FAX #: [phone] RAD #: D/C DT PAGE 2 Signed ReportBASIC METABOLIC PANEL 2021-11-08 07:42:00 Test Item Value Reference Range Interpretation Comments SODIUM (test code = 136 mmol/L 136-145 N NA) POTASSIUM (test code = 4.5 mmol/L 3.5-5.1 N K) CHLORIDE (test code = 100.0 mmol/L 98-107 N CL) CARBON DIOXIDE (test 23.2 mmol/L 21-32 N code = CO2) GLUCOSE (test code = 196 mg/dL 70-110 H GLU) BLOOD UREA NITROGEN 18 mg/dL 7-18 N (test code = BUN) GLOMERULAR FILTRATION 64.2 >60 Unit o f measure: RATE (test code = GFR) mL/mi n/1.73 u1Pvkeoghbl Range:Healthy Adults >90 mL/min/1.73 m2 For Chronic Kidney Disease: Stage II Mild Decrease i n GFR 60-90 Stage III Moderate Decrea se in GFR 30-59 St age IV Severe Decre ase in GFR 15-29 St age V Kidney Failur e <15 CREATININE (test code 1.33 mg/dL 0.55-1.30 H = CREAT) CALCIUM (test code = 8.7 mg/dL 8.2-10.1 N CA) SPECIMEN COMMENT: POD #1HGB [id number] 06:05:00 Test Item Value Reference Range Interpretation Comments HEMOGLOBIN (test code = HGB) 10.7 g/dL 12-16 L HEMATOCRIT (test code = HCT) 32.9 % 37-47 L SPECIMEN COMMENT: POD #1basic metabolic [id number] 03:36:00 Test Item Value Reference Range Interpretation [...] performing lab: (test code = performing lab:) [facility] metabolic [id number] 03:36:00 Test Item Value Reference Range Interpretation [...] performing lab: (test code = performing lab:) [place] [id number] 00:08:00 Test Item Value Reference Range Interpretation Comments GLUBED (test code = GLUBED) 227 mg/dL 60-125 H [id number] 21:48:00 Test Item Value Reference Range Interpretation Comments GLUBED (test code = GLUBED) 285 mg/dL 60-125 H [id number] 21:34:00 Test Item Value Reference Range Interpretation Comments glubed (test code = glubed) 285 mg/dL 60-125 H performing lab: (test code = performing lab:) [place] [id number] 21:34:00 Test Item Value Reference Range Interpretation Comments glubed (test code = glubed) 285 mg/dL 60-125 H performing lab: (test code = performing lab:) [place] [id number] 13:13:00 Test Item Value Reference Range Interpretation Comments GLUBED (test code = GLUBED) 131 mg/dL 60-125 H [id number] 12:49:00 Test Item Value Reference Range Interpretation Comments glubed (test code = glubed) 131 mg/dL 60-125 H performing lab: (test code = performing lab:) [place] [id number] 12:49:00 Test Item Value Reference Range Interpretation Comments glubed (test code = glubed) 131 mg/dL 60-125 H performing lab: (test code = performing lab:) [facility]2021-10-05 22:05:00 Test Item Value Reference [...] be considered for these patients.DONE A T: [facility] [address] [facility] [place], [place] [address] GLYCOSYLATED HEMOGLOBIN (HA1C)2021-10-05 22:05:00 Test Item Value Reference Range Interpretation Comments GLYCOSYLATED 5.9 % 4.8-5.9 N Any condition t hat shortens HEMOGLOBIN (HA1C) erythocyte survival or (test code = GLYHGB) decreas esmean erythrocyte age (e.g., anna very from acute blood los s,hemolytic anemia) will fa lsely lower HGBA1c resultsr egardless of the method used . HGBA1c results from [facility] HbSS, HbCC, and HbSc must be interpreted with cautiongiven th e pathological pr ocesses, including anemi a,increased red cell turnov er, transfusion req uirements, thatadversely i mpact HGBA1c as a marker of long-term glycemiccontrol . Alternative for ms of testing such as fructosaminesho uld be considered for these patients. COMPREHENSIVE METABOLIC [id number] 17:05:00 Test Item Value Reference Range Interpretation [...] RATE (test code = GFR) mL/mi n/1.73 h3Jznwgebby Range:Healthy Adults >90 mL/min/1.73 m2 For Chronic [...] N TOTAL (test code = ALKP) PROTHROMBIN [id number] 17:02:00 Test Item Value Reference Range Interpretation [...] Patient is on Heparin Drip? NOTHROMBOPLASTIN TIME [id number] 17:02:00 Test Item Value Reference Range Interpretation Comments PTT ACTIVATED (test 37.0 secs 26.6-34.6 H Please n ote new code = APTT) normal range. IS PATIENT ON ANTICOAGULANTS ? NHas Lab been notified if Patient is on Heparin Drip? NOCBC W/AUTO [id number] 15:09:00 Test Item Value Reference Range Interpretation [...] Interpretation Comments POCT GLU (test code = 6925703435) 161 mg/dL 70-110 H Lab Interpretation (test code = Abnormal 25688-8) [facility] GLUCOSE (AUTOMATED)2021-06-21 18:10:43 Test Item Value Reference Range Interpretation Comments POCT GLU (test code = 1403913348) 173 mg/dL 70-110 H Lab Interpretation (test code = Abnormal 85726-8) [facility] GLUCOSE (AUTOMATED)2021-06-21 13:28:30 Test Item Value Reference Range Interpretation Comments POCT GLU (test code = 5016115582) 126 mg/dL 70-110 H Lab Interpretation (test code = Abnormal 92024-0) [facility] GLUCOSE (AUTOMATED)2021-06-21 03:08:07 Test Item Value Reference Range Interpretation Comments POCT GLU (test code = 8319524006) 127 mg/dL 70-110 H Lab Interpretation (test code = Abnormal 06113-3) [facility] GLUCOSE (AUTOMATED)2021-06-20 21:12:06 Test Item Value Reference Range Interpretation Comments POCT GLU (test code = 7687032194) 142 mg/dL 70-110 H Lab Interpretation (test code = Abnormal 31702-2) [facility] GLUCOSE (AUTOMATED)2021-06-20 16:30:19 Test Item Value Reference Range Interpretation Comments POCT GLU (test code = 9525570367) 122 mg/dL 70-110 H Lab Interpretation (test code = Abnormal 20008-9) [facility] 13:27:27 Test Item Value Reference Range Interpretation Comments POCT GLU (test code = 7129474145) 167 mg/dL 70-110 H Lab Interpretation (test code = Abnormal 03712-5) [facility] METABOLIC PANEL (NA, K, CL, CO2, GLUCOSE, BUN, CREATININE, CA)2021-06-20 09:58:38 Test Item Value Reference Range Interpretation Comments NA (test code = 140 mmol/L 135-145 4642806021) K (test code = 3.8 mmol/L 3.5-5.0 1228452820) CL (test code = 102 mmol/L 98-108 1513675959) CO2 TOTAL (test code = 34 mmol/L 23-31 H 2665192399) AGAP (test code = 2-16 5305670308) BUN (test code = 17 mg/dL 7-23 1152810695) GLUCOSE (test code = 133 mg/dL 70-110 H 0475714989) CREATININE (test code = 0.80 mg/dL 0.60-1.25 2151478262) CALCIUM (test code = 8.5 mg/dL 8.6-10.6 L 4284215445) eGFR (test code = mL/min/1.73m2 8856839471) MILO (test code = MILO) Association of [...] tests). Lab Interpretation Abnormal (test code = 07860-2) [facility] WITH [id number] 09:43:36 Test Item Value Reference Range Interpretation [...] RDW-SD (test code = 47.0 fL 38.5-51.6 38647-7) RDW-CV (test code = 16.5 % 12.1-15.4 H 788-0) PLT (test code = See_Comment H [Automated 777-3) message] The sy stem which generated this result transmitted reference range : 150 - 328 10*3/ ?L. The reference r jay was not used to interpret this result as normal/abnormal . MPV (test code = 9.1 fL 9.8-13.0 L 11227-3) NRBC/100 WBC (test See_Comment [Automat ed code = 8573974548) message] The system which generated this result transmitted reference range : 0.0 - 10.0 /100 WBCs. The refer ence range was not u sed to interpret th is result as normal/abnormal . NRBC x10^3 (test code <0.01 See_Comment [Auto mated = 6359858876) message] The s ystem which generated this result transmitted reference range : 10*3/?L. The reference range was not used to interpret this result as normal/abnormal . GRAN MAT (NEUT) % 57.6 % (test code = 770-8) IMM GRAN % (test code 0.10 % = 9598575197) LYMPH % (test code = 24.4 % 736-9) MONO % (test code = 11.3 % 5905-5) EOS % (test code = 6.1 % 713-8) BASO % (test code = 0.5 % 706-2) GRAN MAT x10^3(ANC) 4.27 10*3/uL 1.99-6.95 (test code = 0757232595) IMM GRAN x10^3 (test <0.03 0.00-0.06 code = 8594757642) LYMPH x10^3 (test code 1.81 10*3/uL 1.09-3.23 = 731-0) MONO x10^3 (test code 0.84 10*3/uL 0.36-1.02 = 742-7) EOS x10^3 (test code = 0.45 10*3/uL 0.06-0.53 711-2) BASO x10^3 (test code 0.04 10*3/uL 0.01-0.09 = 704-7) Lab Interpretation Abnormal (test code = 97097-0) [facility] GLUCOSE (AUTOMATED)2021-06-20 02:43:28 Test Item Value Reference Range Interpretation Comments POCT GLU (test code = 0267895285) 129 mg/dL 70-110 H Lab Interpretation (test code = Abnormal 66629-1) [facility] GLUCOSE (AUTOMATED)2021-06-19 21:47:17 Test Item Value Reference Range Interpretation Comments POCT GLU (test code = 7290998077) 252 mg/dL 70-110 H Lab Interpretation (test code = Abnormal 90234-1) [facility] GLUCOSE (AUTOMATED)2021-06-19 21:47:17 Test Item Value Reference Range Interpretation Comments POCT GLU (test code = 9595548110) 252 mg/dL 70-110 H Lab Interpretation (test code = Abnormal 39195-9) [facility] 1430 2021-06-19 20:48:57 Test Item Value Reference Range Interpretation Comments VANCO TROUGH (test code 8.0 ug/mL 10.0-20.0 L = 0000023897) MILO (test code = MILO) Toxic Range: ?>20 ug/mL 15-20 ug/mL is recommended for severe infection or when Vancomycin KIERAN is greater than or equal to 2. Lab Interpretation (test Abnormal code = 92241-8) [facility] draw at 1430 2021-06-19 20:48:57 Test Item Value Reference Range Interpretation Comments VANCO TROUGH (test code 8.0 ug/mL 10.0-20.0 L = 9791949820) MILO (test code = MILO) Toxic Range: ?>20 ug/mL 15-20 ug/mL is recommended for severe infection or when Vancomycin KIERAN is greater than or equal to 2. Lab Interpretation (test Abnormal code = 71510-2) [facility] GLUCOSE (AUTOMATED)2021-06-19 16:53:39 Test Item Value Reference Range Interpretation Comments POCT GLU (test code = 7237479441) 145 mg/dL 70-110 H Lab Interpretation (test code = Abnormal 04927-6) [facility] GLUCOSE (AUTOMATED)2021-06-19 16:53:39 Test Item Value Reference Range Interpretation Comments POCT GLU (test code = 2629923370) 145 mg/dL 70-110 H Lab Interpretation (test code = Abnormal 07539-4) [facility] GLUCOSE (AUTOMATED)2021-06-19 13:09:01 Test Item Value Reference Range Interpretation Comments POCT GLU (test code = 4767949280) 138 mg/dL 70-110 H Lab Interpretation (test code = Abnormal 76462-4) [facility] GLUCOSE (AUTOMATED)2021-06-19 13:09:01 Test Item Value Reference Range Interpretation Comments POCT GLU (test code = 0233689860) 138 mg/dL 70-110 H Lab Interpretation (test code = Abnormal 47099-5) [facility] Metabolic Panel (NA, K, CL, CO2, GLUCOSE, BUN, CREATININE, CA)2021-06-19 10:00:53 Test Item Value Reference Range Interpretation Comments NA (test code = 139 mmol/L 135-145 4315673019) K (test code = 4.0 mmol/L 3.5-5.0 Slight 2167914865) hemolysis CL (test code = 100 mmol/L 98-108 6848764044) CO2 TOTAL (test code 31 mmol/L 23-31 = 6117329644) AGAP (test code = 2-16 4416408597) BUN (test code = 15 mg/dL 7-23 Slight 3780974106) hemolysis GLUCOSE (test code = 166 mg/dL 70-110 H 5576040219) CREATININE (test code 0.72 mg/dL 0.60-1.25 = 8666019507) CALCIUM (test code = 8.3 mg/dL 8.6-10.6 L 4590041917) eGFR (test code = mL/min/1.73m2 5251261740) MILO (test code = MILO) Association of [...] tests). Lab Interpretation Abnormal (test code = 47205-1) [facility] Metabolic Panel (NA, K, CL, CO2, GLUCOSE, BUN, CREATININE, CA)2021-06-19 10:00:53 Test Item Value Reference Range Interpretation Comments NA (test code = 139 mmol/L 135-145 1841415870) K (test code = 4.0 mmol/L 3.5-5.0 Slight 8824737716) hemolysis CL (test code = 100 mmol/L 98-108 4042078903) CO2 TOTAL (test code 31 mmol/L 23-31 = 0221895135) AGAP (test code = 2-16 8912360391) BUN (test code = 15 mg/dL 7-23 Slight 5556697236) hemolysis GLUCOSE (test code = 166 mg/dL 70-110 H 0329953950) CREATININE (test code 0.72 mg/dL 0.60-1.25 = 5507928754) CALCIUM (test code = 8.3 mg/dL 8.6-10.6 L 4796714747) eGFR (test code = mL/min/1.73m2 4751132198) MILO (test code = MILO) Association of [...] tests). Lab Interpretation Abnormal (test code = 47728-8) [facility] with [id number] 09:51:10 Test Item Value Reference Range Interpretation [...] RDW-SD (test code = 46.8 fL 38.5-51.6 35030-7) RDW-CV (test code = 16.4 % 12.1-15.4 H 788-0) PLT (test code = See_Comment H [Automated 777-3) message] The sy stem which generated this result transmitted reference range : 150 - 328 10*3/ ?L. The reference r jay was not used to interpret this result as normal/abnormal . MPV (test code = 9.4 fL 9.8-13.0 L 36127-3) NRBC/100 WBC (test See_Comment [Automat ed code = 7135259856) message] The system which generated this result transmitted reference range : 0.0 - 10.0 /100 WBCs. The refer ence range was not u sed to interpret th is result as normal/abnormal . NRBC x10^3 (test code <0.01 See_Comment [Auto mated = 8529048197) message] The s ystem which generated this result transmitted reference range : 10*3/?L. The reference range was not used to interpret this result as normal/abnormal . GRAN MAT (NEUT) % 64.2 % (test code = 770-8) IMM GRAN % (test code 0.60 % = 8741531531) LYMPH % (test code = 21.1 % 736-9) MONO % (test code = 11.1 % 5905-5) EOS % (test code = 2.5 % 713-8) BASO % (test code = 0.5 % 706-2) GRAN MAT x10^3(ANC) 5.32 10*3/uL 1.99-6.95 (test code = 5816856599) IMM GRAN x10^3 (test 0.05 10*3/uL 0.00-0.06 code = 7139428184) LYMPH x10^3 (test code 1.75 10*3/uL 1.09-3.23 = 731-0) MONO x10^3 (test code 0.92 10*3/uL 0.36-1.02 = 742-7) EOS x10^3 (test code = 0.21 10*3/uL 0.06-0.53 711-2) BASO x10^3 (test code 0.04 10*3/uL 0.01-0.09 = 704-7) Lab Interpretation Abnormal (test code = 96813-1) [facility] with [id number] 09:51:10 Test Item Value Reference Range Interpretation [...] RDW-SD (test code = 46.8 fL 38.5-51.6 86880-1) RDW-CV (test code = 16.4 % 12.1-15.4 H 788-0) PLT (test code = See_Comment H [Automated 777-3) message] The sy stem which generated this result transmitted reference range : 150 - 328 10*3/ ?L. The reference r jay was not used to interpret this result as normal/abnormal . MPV (test code = 9.4 fL 9.8-13.0 L 71609-0) NRBC/100 WBC (test See_Comment [Automat ed code = 7485257941) message] The system which generated this result transmitted reference range : 0.0 - 10.0 /100 WBCs. The refer ence range was not u sed to interpret th is result as normal/abnormal . NRBC x10^3 (test code <0.01 See_Comment [Auto mated = 7403402704) message] The s ystem which generated this result transmitted reference range : 10*3/?L. The reference range was not used to interpret this result as normal/abnormal . GRAN MAT (NEUT) % 64.2 % (test code = 770-8) IMM GRAN % (test code 0.60 % = 4214066499) LYMPH % (test code = 21.1 % 736-9) MONO % (test code = 11.1 % 5905-5) EOS % (test code = 2.5 % 713-8) BASO % (test code = 0.5 % 706-2) GRAN MAT x10^3(ANC) 5.32 10*3/uL 1.99-6.95 (test code = 2257341556) IMM GRAN x10^3 (test 0.05 10*3/uL 0.00-0.06 code = 6867518431) LYMPH x10^3 (test code 1.75 10*3/uL 1.09-3.23 = 731-0) MONO x10^3 (test code 0.92 10*3/uL 0.36-1.02 = 742-7) EOS x10^3 (test code = 0.21 10*3/uL 0.06-0.53 711-2) BASO x10^3 (test code 0.04 10*3/uL 0.01-0.09 = 704-7) Lab Interpretation Abnormal (test code = 97274-2) [facility] GLUCOSE (AUTOMATED)2021-06-19 00:57:14 Test Item Value Reference Range Interpretation Comments POCT GLU (test code = 6317079107) 181 mg/dL 70-110 H Lab Interpretation (test code = Abnormal 02948-7) [facility] GLUCOSE (AUTOMATED)2021-06-19 00:57:14 Test Item Value Reference Range Interpretation Comments POCT GLU (test code = 8935347008) 181 mg/dL 70-110 H Lab Interpretation (test code = Abnormal 54755-0) [facility] FLUID MANUAL [id number] 23:14:46 Test Item Value Reference Range Interpretation Comments BF SEGS% (test code = 21728-6) 89 % 0-25 H BF LYMPHS% (test code = 61226-8) 8 % BF MACROPHAGE% (test code = 95424-7) 3 % BF #CELLS CNTD (test code = cells/uL 3083565023) Lab Interpretation (test code = Abnormal 93177-4) [facility] FLUID MANUAL [id number] 23:14:46 Test Item Value Reference Range Interpretation Comments BF SEGS% (test code = 38094-0) 89 % 0-25 H BF LYMPHS% (test code = 29878-1) 8 % BF MACROPHAGE% (test code = 47372-8) 3 % BF #CELLS CNTD (test code = cells/uL 6156538240) Lab Interpretation (test code = Abnormal 18334-7) [facility] FLUID DIRECT [id number] 23:14:16 Test Item Value Reference Range Interpretation Comments BF COLOR (test code = Bloody 5729400434) TURBIDITY (test code = Turbid 1649266833) BF WBC Count (test code See_Comment [Au tomated message] The = 7927149996) system which g enerated this result tra nsmitted reference range : 0 - 150 /?L. The refere nce range was not used to interpret this result as normal/abnormal . BF RBC Count (test code See_Comment [Au tomated message] The = 5450171342) system which g enerated this result tra nsmitted reference range : /?L. The reference r jay was not used to int erpret this result as normal/abnormal . [facility] FLUID DIRECT [id number] 23:14:16 Test Item Value Reference Range Interpretation Comments BF COLOR (test code = Bloody 0953481718) TURBIDITY (test code = Turbid 6912480982) BF WBC Count (test code See_Comment [Au tomated message] The = 1830141391) system which g enerated this result tra nsmitted reference range : 0 - 150 /?L. The refere nce range was not used to interpret this result as normal/abnormal . BF RBC Count (test code See_Comment [Au tomated message] The = 4795798789) system which g enerated this result tra nsmitted reference range : /?L. The reference r jay was not used to int erpret this result as normal/abnormal . [facility] GLUCOSE (AUTOMATED)2021-06-18 22:29:05 Test Item Value Reference Range Interpretation Comments POCT GLU (test code = 6497712112) 98 mg/dL 70-110 Lab Interpretation (test code = Normal 29339-6) [facility] GLUCOSE (AUTOMATED)2021-06-18 22:29:05 Test Item Value Reference Range Interpretation Comments POCT GLU (test code = 2197015949) 98 mg/dL 70-110 Lab Interpretation (test code = Normal 73003-5) [facility] GLUCOSE (AUTOMATED)2021-06-18 17:39:04 Test Item Value Reference Range Interpretation Comments POCT GLU (test code = 1151896917) 88 mg/dL 70-110 Lab Interpretation (test code = Normal 19937-5) [facility] GLUCOSE (AUTOMATED)2021-06-18 17:39:04 Test Item Value Reference Range Interpretation Comments POCT GLU (test code = 4064815293) 88 mg/dL 70-110 Lab Interpretation (test code = Normal 65892-3) [facility] GLUCOSE (AUTOMATED)2021-06-18 12:59:25 Test Item Value Reference Range Interpretation Comments POCT GLU (test code = 0233871479) 85 mg/dL 70-110 Lab Interpretation (test code = Normal 64767-8) [facility] GLUCOSE (AUTOMATED)2021-06-18 12:59:25 Test Item Value Reference Range Interpretation Comments POCT GLU (test code = 0478814226) 85 mg/dL 70-110 Lab Interpretation (test code = Normal 40312-8) [facility] GLUCOSE (AUTOMATED)2021-06-18 06:45:29 Test Item Value Reference Range Interpretation Comments POCT GLU (test code = 4725070015) 120 mg/dL 70-110 H Lab Interpretation (test code = Abnormal 73006-8) [facility] GLUCOSE (AUTOMATED)2021-06-18 06:45:29 Test Item Value Reference Range Interpretation Comments POCT GLU (test code = 0397130994) 120 mg/dL 70-110 H Lab Interpretation (test code = Abnormal 10025-5) [id number] 06:09:58 Test Item Value Reference Range Interpretation Comments URIC ACID (test code = 4693935099) 6.4 mg/dL 3.6-8.0 Lab Interpretation (test code = Normal 54773-7) [id number] 06:09:58 Test Item Value Reference Range Interpretation Comments URIC ACID (test code = 5324684011) 6.4 mg/dL 3.6-8.0 Lab Interpretation (test code = Normal 79447-6) [facility]-REACTIVE [id number] 05:01:18 Test Item Value Reference Range Interpretation Comments CRP (test code = 2872631792) 6.7 mg/dL <1.0 H Lab Interpretation (test code = Abnormal 84704-2) [facility]-REACTIVE [id number] 05:01:18 Test Item Value Reference Range Interpretation Comments CRP (test code = 0949533552) 6.7 mg/dL <1.0 H Lab Interpretation (test code = Abnormal 38682-5) [facility] METABOLIC PANEL (NA, K, CL, CO2, GLUCOSE, BUN, CREATININE, CA)2021-06-18 04:12:16 Test Item Value Reference Range Interpretation Comments NA (test code = 138 mmol/L 135-145 1318653769) K (test code = 4.0 mmol/L 3.5-5.0 5503891442) CL (test code = 104 mmol/L 98-108 6100700843) CO2 TOTAL (test code = 28 mmol/L 23-31 8586734324) AGAP (test code = 2-16 8767869136) BUN (test code = 15 mg/dL 7-23 3229184342) GLUCOSE (test code = 185 mg/dL 70-110 H 5642051846) CREATININE (test code = 0.91 mg/dL 0.60-1.25 9607341246) CALCIUM (test code = 8.0 mg/dL 8.6-10.6 L 4908190892) eGFR (test code = mL/min/1.73m2 9503641648) MILO (test code = MILO) Association of [...] tests). Lab Interpretation Abnormal (test code = 99739-1) [facility] METABOLIC PANEL (NA, K, CL, CO2, GLUCOSE, BUN, CREATININE, CA)2021-06-18 04:12:16 Test Item Value Reference Range Interpretation Comments NA (test code = 138 mmol/L 135-145 9689541191) K (test code = 4.0 mmol/L 3.5-5.0 2825685419) CL (test code = 104 mmol/L 98-108 5082134096) CO2 TOTAL (test code = 28 mmol/L 23-31 4765907477) AGAP (test code = 2-16 6325429826) BUN (test code = 15 mg/dL 7-23 9956055845) GLUCOSE (test code = 185 mg/dL 70-110 H 2964637490) CREATININE (test code = 0.91 mg/dL 0.60-1.25 6278195415) CALCIUM (test code = 8.0 mg/dL 8.6-10.6 L 4220791121) eGFR (test code = mL/min/1.73m2 2443277167) MILO (test code = MILO) Association of [...] tests). Lab Interpretation Abnormal (test code = 44495-1) [facility] [id number] 04:04:30 Test Item Value Reference Range Interpretation Comments ESR (test code = See_Comment H [Automated message] 4820021759) The system Lurn[employer] generated this result transmitted ref erence range: 0 - 15 m m/HR. The reference r jay was not used to interpret this result as normal/abnor mal. Lab Interpretation (test Abnormal code = 10801-5) [facility] [id number] 04:04:30 Test Item Value Reference Range Interpretation Comments ESR (test code = See_Comment H [Automated message] 8046634416) The system [employer]urn[employer] generated this result transmitted ref erence range: 0 - 15 m m/HR. The reference r jay was not used to interpret this result as normal/abnor mal. Lab Interpretation (test Abnormal code = 38446-9) [facility] WITH [id number] 03:59:38 Test Item Value Reference Range Interpretation [...] RDW-SD (test code = 46.5 fL 38.5-51.6 80779-1) RDW-CV (test code = 16.2 % 12.1-15.4 H 788-0) PLT (test code = See_Comment H [Automated 777-3) message] The sy stem which generated this result transmitted reference range : 150 - 328 10*3/ ?L. The reference r jay was not used to interpret this result as normal/abnormal . MPV (test code = 9.2 fL 9.8-13.0 L 38447-8) NRBC/100 WBC (test See_Comment [Automat ed code = 6979555824) message] The system which generated this result transmitted reference range : 0.0 - 10.0 /100 WBCs. The refer ence range was not u sed to interpret th is result as normal/abnormal . NRBC x10^3 (test code <0.01 See_Comment [Auto mated = 8115282051) message] The s ystem which generated this result transmitted reference range : 10*3/?L. The reference range was not used to interpret this result as normal/abnormal . GRAN MAT (NEUT) % 60.9 % (test code = 770-8) IMM GRAN % (test code 0.20 % = 1237085498) LYMPH % (test code = 21.7 % 736-9) MONO % (test code = 11.2 % 5905-5) EOS % (test code = 5.4 % 713-8) BASO % (test code = 0.6 % 706-2) GRAN MAT x10^3(ANC) 5.32 10*3/uL 1.99-6.95 (test code = 6395439367) IMM GRAN x10^3 (test <0.03 0.00-0.06 code = 2916178122) LYMPH x10^3 (test code 1.90 10*3/uL 1.09-3.23 = 731-0) MONO x10^3 (test code 0.98 10*3/uL 0.36-1.02 = 742-7) EOS x10^3 (test code = 0.47 10*3/uL 0.06-0.53 711-2) BASO x10^3 (test code 0.05 10*3/uL 0.01-0.09 = 704-7) Lab Interpretation Abnormal (test code = 72096-3) [facility] WITH [id number] 03:59:38 Test Item Value Reference Range Interpretation [...] RDW-SD (test code = 46.5 fL 38.5-51.6 33711-2) RDW-CV (test code = 16.2 % 12.1-15.4 H 788-0) PLT (test code = See_Comment H [Automated 777-3) message] The sy stem which generated this result transmitted reference range : 150 - 328 10*3/ ?L. The reference r jay was not used to interpret this result as normal/abnormal . MPV (test code = 9.2 fL 9.8-13.0 L 38539-6) NRBC/100 WBC (test See_Comment [Automat ed code = 8912943670) message] The system which generated this result transmitted reference range : 0.0 - 10.0 /100 WBCs. The refer ence range was not u sed to interpret th is result as normal/abnormal . NRBC x10^3 (test code <0.01 See_Comment [Auto mated = 5762322193) message] The s ystem which generated this result transmitted reference range : 10*3/?L. The reference range was not used to interpret this result as normal/abnormal . GRAN MAT (NEUT) % 60.9 % (test code = 770-8) IMM GRAN % (test code 0.20 % = 0129908343) LYMPH % (test code = 21.7 % 736-9) MONO % (test code = 11.2 % 5905-5) EOS % (test code = 5.4 % 713-8) BASO % (test code = 0.6 % 706-2) GRAN MAT x10^3(ANC) 5.32 10*3/uL 1.99-6.95 (test code = 2298323424) IMM GRAN x10^3 (test <0.03 0.00-0.06 code = 5016783456) LYMPH x10^3 (test code 1.90 10*3/uL 1.09-3.23 = 731-0) MONO x10^3 (test code 0.98 10*3/uL 0.36-1.02 = 742-7) EOS x10^3 (test code = 0.47 10*3/uL 0.06-0.53 711-2) BASO x10^3 (test code 0.05 10*3/uL 0.01-0.09 = 704-7) Lab Interpretation Abnormal (test code = 38840-0) [facility]26 18:07:01 Test Item Value Reference Range Interpretation Comments Misc fluid type (test Synovial code = 55016-1) Color, fluid (test Red code = 6824-7) Appearance, fluid Cloudy A (test code = 9335-1) RBC, fluid (test code SEE COMMENT See_Comment Many R BCs = 32248-7) seenUnable to quantitate due to fibrinous speci men Footnote------- -- [Automated message] The system which generated this result transmit cesar reference range : /CMM. The reference range was not used to interpret this result as normal/abnormal . Nucleated cells, SEE COMMENT See_Comment Many WBCs fluid ([place] = [place] [address]-8) quantitate due to fibrinous specimenFootnot e-- ------- [Automa cesar message] The system which generated this result transmit cesar reference range : /CMM. The reference range was not used to interpret this result as normal/abnormal . Fluid mononuclear Diff to follow cell (test code = 1407) Neutrophils, fluid 85 % (test code = 29876-7) Lymphocytes, fluid 10 % (test code = 88472-5) Eosinophils, fluid 1 % (test code = 59550-8) Macrophages, fluid 5 % Synovial Fluid: (test code = 76021-9) WBC 0- 150/mm3 RBC 0-1/mm3 Diferential: Le ss than 25% Neutrophils. Lymphocytes and monocytes/histo cyt es predominatePeri car dial, Peritonea l andPleural Flui d: WBC <500/mm3 RB C <100/mm3 Diferential: Le ss than 25% Neutrophils. Lymphocytes, macrophages and mesothelial ce ll predominate Lab Interpretation Abnormal (test code = 37821-7) [facility] [id number] 18:07:01 Test Item Value Reference Range Interpretation Comments Misc fluid type (test Synovial code = 85885-1) Color, fluid (test Red code = 6824-7) Appearance, fluid Cloudy A (test code = 9335-1) RBC, fluid (test code SEE COMMENT See_Comment Many R BCs = 12945-8) seenUnable to quantitate due to fibrinous speci men Footnote------- -- [Automated message] The system which generated this result transmit cesar reference range : /CMM. The reference range was not used to interpret this result as normal/abnormal . Nucleated cells, SEE COMMENT See_Comment Many WBCs fluid (test code = [place] [address]-0) quantitate due to fibrinous specimenFootnot e-- ------- [Automa cesar message] The system which generated this result transmit cesar reference range : /CMM. The reference range was not used to interpret this result as normal/abnormal . Fluid mononuclear Diff to follow cell (test code = 1407) Neutrophils, fluid 85 % (test code = 76127-4) Lymphocytes, fluid 10 % (test code = 47613-8) Eosinophils, fluid 1 % (test code = 26552-9) Macrophages, fluid 5 % Synovial Fluid: (test code = 36427-1) WBC 0- 150/mm3 RBC 0-1/mm3 Diferential: Le ss than 25% Neutrophils. Lymphocytes and monocytes/histo cyt es predominatePeri car dial, Peritonea l andPleural Flui d: WBC <500/mm3 RB C <100/mm3 Diferential: Le ss than 25% Neutrophils. Lymphocytes, macrophages and mesothelial michael l predominate Lab Interpretation Abnormal (test code = 84950-2) [facility] body [id number] 18:07:01 Test Item Value Reference Range Interpretation Comments Misc fluid type (test Synovial code = 70425-2) Color, fluid (test Red code = 6824-7) Appearance, fluid Cloudy A (test code = 9335-1) RBC, fluid (test code SEE COMMENT See_Comment Many R BCs = 16401-6) seenUnable to quantitate due to fibrinous speci men Footnote------- -- [Automated message] The system which generated this result transmit cesar reference range : /CMM. The reference range was not used to interpret this result as normal/abnormal . Nucleated cells, SEE COMMENT See_Comment Many WBCs fluid ([place] = [place] [address]-3) quantitate due to fibrinous specimenFootnot e-- ------- [Automa cesar message] The system which generated this result transmit cesar reference range : /CMM. The reference range was not used to interpret this result as normal/abnormal . Fluid mononuclear Diff to follow cell (test code = 1407) Neutrophils, fluid 85 % (test code = 21022-2) Lymphocytes, fluid 10 % (test code = 73381-0) Eosinophils, fluid 1 % (test code = 16012-4) Macrophages, fluid 5 % Synovial Fluid: (test code = 78907-0) WBC 0- 150/mm3 RBC 0-1/mm3 Diferential: Le ss than 25% Neutrophils. Lymphocytes and monocytes/histo cyt es predominatePeri car dial, Peritonea l andPleural Flui d: WBC <500/mm3 RB C <100/mm3 Diferential: Le ss than 25% Neutrophils. Lymphocytes, macrophages and mesothelial michael l predominate Lab Interpretation Abnormal (test code = 65478-4) [facility] body [id number] 18:07:01 Test Item Value Reference Range Interpretation Comments Misc fluid type (test Synovial code = 44991-1) Color, fluid (test Red code = 6824-7) Appearance, fluid Cloudy A (test code = 9335-1) RBC, fluid (test code SEE COMMENT See_Comment Many R BCs = 03965-6) seenUnable to quantitate due to fibrinous speci men Footnote------- -- [Automated message] The system which generated this result transmit cesar reference range : /CMM. The reference range was not used to interpret this result as normal/abnormal . Nucleated cells, SEE COMMENT See_Comment Many WBCs fluid (test [place] = [place] [address]-0) quantitate due to fibrinous specimenFootnot e-- ------- [Automa cesar message] The system which generated this result transmit cesar reference range : /CMM. The reference range was not used to interpret this result as normal/abnormal . Fluid mononuclear Diff to follow cell (test code = 1407) Neutrophils, fluid 85 % (test code = 87091-9) Lymphocytes, fluid 10 % (test code = 69610-0) Eosinophils, fluid 1 % (test code = 03563-3) Macrophages, fluid 5 % Synovial Fluid: (test code = 79390-0) WBC 0- 150/mm3 RBC 0-1/mm3 Diferential: Le ss than 25% Neutrophils. Lymphocytes and monocytes/histo cyt es predominatePeri car dial, Peritonea l andPleural Flui d: WBC <500/mm3 RB C <100/mm3 Diferential: Le ss than 25% Neutrophils. Lymphocytes, macrophages and mesothelial ce ll predominate Lab Interpretation Abnormal (test code = 41003-2) [facility], [facility] [id number] 18:07:01 Test Item Value Reference Range Interpretation Comments Misc fluid type (test Synovial code = 61301-2) Color, fluid (test Red code = 6824-7) Appearance, fluid Cloudy A (test code = 9335-1) RBC, fluid (test code SEE COMMENT See_Comment Many R BCs = 64620-1) seenUnable to quantitate due to fibrinous speci men Footnote------- -- [Automated message] The system which generated this result transmit cesar reference range : /CMM. The reference range was not used to interpret this result as normal/abnormal . Nucleated cells, SEE COMMENT See_Comment Many WBCs fluid (test [place] = [place] [address]-8) quantitate due to fibrinous specimenFootnot e-- ------- [Automa cesar message] The system which generated this result transmit cesar reference range : /CMM. The reference range was not used to interpret this result as normal/abnormal . Fluid mononuclear Diff to follow cell (test code = 1407) Neutrophils, fluid 85 % (test code = 22732-8) Lymphocytes, fluid 10 % (test code = 48087-9) Eosinophils, fluid 1 % (test code = 48535-4) Macrophages, fluid 5 % Synovial Fluid: (test code = 63748-6) WBC 0- 150/mm3 RBC 0-1/mm3 Diferential: Le ss than 25% Neutrophils. Lymphocytes and monocytes/histo cyt es predominatePeri car dial, Peritonea l andPleural Flui d: WBC <500/mm3 RB C <100/mm3 Diferential: Le ss than 25% Neutrophils. Lymphocytes, macrophages and mesothelial michael l predominate Lab Interpretation Abnormal (test code = 15234-6) [facility] [id number] 18:07:01 Test Item Value Reference Range Interpretation Comments Misc fluid type (test Synovial code = 43886-3) Color, fluid (test Red code = 6824-7) Appearance, fluid Cloudy A (test code = 9335-1) RBC, fluid (test code SEE COMMENT See_Comment Many R BCs = 93527-7) seenUnable to quantitate due to fibrinous speci men Footnote------- -- [Automated message] The system which generated this result transmit cesar reference range : /CMM. The reference range was not used to interpret this result as normal/abnormal . Nucleated cells, SEE COMMENT See_Comment Many WBCs fluid (test code = [place] [address]-7) quantitate due to fibrinous specimenFootnot e-- ------- [Automa cesar message] The system which generated this result transmit cesar reference range : /CMM. The reference range was not used to interpret this result as normal/abnormal . Fluid mononuclear Diff to follow cell (test code = 1407) Neutrophils, fluid 85 % (test code = 17651-9) Lymphocytes, fluid 10 % (test code = 89379-2) Eosinophils, fluid 1 % (test code = 94762-1) Macrophages, fluid 5 % Synovial Fluid: (test code = 05618-1) WBC 0- 150/mm3 RBC 0-1/mm3 Diferential: Le ss than 25% Neutrophils. Lymphocytes and monocytes/histo cyt es predominatePeri car dial, Peritonea l andPleural Flui d: WBC <500/mm3 RB C <100/mm3 Diferential: Le ss than 25% Neutrophils. Lymphocytes, macrophages and mesothelial michael l predominate Lab Interpretation Abnormal (test code = 24276-3) [facility], body [id number] 18:07:01 Test Item Value Reference Range Interpretation Comments Misc fluid type (test Synovial code = 85245-2) Color, fluid (test Red code = 6824-7) Appearance, fluid Cloudy A (test code = 9335-1) RBC, fluid (test code SEE COMMENT See_Comment Many R BCs = 82476-5) seenUnable to quantitate due to fibrinous speci men Footnote------- -- [Automated message] The system which generated this result transmit cesar reference range : /CMM. The reference range was not used to interpret this result as normal/abnormal . Nucleated cells, SEE COMMENT See_Comment Many WBCs fluid (test code = [place] [address]-8) quantitate due to fibrinous specimenFootnot e-- ------- [Automa cesar message] The system which generated this result transmit cesar reference range : /CMM. The reference range was not used to interpret this result as normal/abnormal . Fluid mononuclear Diff to follow cell (test code = 1407) Neutrophils, fluid 85 % (test code = 75962-8) Lymphocytes, fluid 10 % (test code = 74557-1) Eosinophils, fluid 1 % (test code = 75344-8) Macrophages, fluid 5 % Synovial Fluid: (test code = 08598-2) WBC 0- 150/mm3 RBC 0-1/mm3 Diferential: Le ss than 25% Neutrophils. Lymphocytes and monocytes/histo cyt es predominatePeri car dial, Peritonea l andPleural Flui d: WBC <500/mm3 RB C <100/mm3 Diferential: Le ss than 25% Neutrophils. Lymphocytes, macrophages and mesothelial michael l predominate Lab Interpretation Abnormal (test code = 87286-3) [facility] body [id number] 18:07:01 Test Item Value Reference Range Interpretation Comments Misc fluid type (test Synovial code = 49256-6) Color, fluid (test Red code = 6824-7) Appearance, fluid Cloudy A (test code = 9335-1) RBC, fluid (test code SEE COMMENT See_Comment Many R BCs = 63366-7) seenUnable to quantitate due to fibrinous speci men Footnote------- -- [Automated message] The system which generated this result transmit cesar reference range : /CMM. The reference range was not used to interpret this result as normal/abnormal . Nucleated cells, SEE COMMENT See_Comment Many WBCs fluid (test code = [place] [address]-7) quantitate due to fibrinous specimenFootnot e-- ------- [Automa cesar message] The system which generated this result transmit cesar reference range : /CMM. The reference range was not used to interpret this result as normal/abnormal . Fluid mononuclear Diff to follow cell (test code = 1407) Neutrophils, fluid 85 % (test code = 48532-1) Lymphocytes, fluid 10 % (test code = 36665-6) Eosinophils, fluid 1 % (test code = 16000-9) Macrophages, fluid 5 % Synovial Fluid: (test code = 64683-7) WBC 0- 150/mm3 RBC 0-1/mm3 Diferential: Le ss than 25% Neutrophils. Lymphocytes and monocytes/histo cyt es predominatePeri car dial, Peritonea l andPleural Flui d: WBC <500/mm3 RB C <100/mm3 Diferential: Le ss than 25% Neutrophils. Lymphocytes, macrophages and mesothelial michael l predominate Lab Interpretation Abnormal (test code = 20492-3) [facility], body [id number] 18:07:01 Test Item Value Reference Range Interpretation Comments Misc fluid type (test Synovial code = 47394-3) Color, fluid (test Red code = 6824-7) Appearance, fluid Cloudy A (test code = 9335-1) RBC, fluid (test code SEE COMMENT See_Comment Many R BCs = 82904-9) seenUnable to quantitate due to fibrinous speci men Footnote------- -- [Automated message] The system which generated this result transmit cesar reference range : /CMM. The reference range was not used to interpret this result as normal/abnormal . Nucleated cells, SEE COMMENT See_Comment Many WBCs fluid (test code = [place] [address]-9) quantitate due to fibrinous specimenFootnot e-- ------- [Automa cesar message] The system which generated this result transmit cesar reference range : /CMM. The reference range was not used to interpret this result as normal/abnormal . Fluid mononuclear Diff to follow cell (test code = 1407) Neutrophils, fluid 85 % (test code = 56624-8) Lymphocytes, fluid 10 % (test code = 73339-1) Eosinophils, fluid 1 % (test code = 28436-9) Macrophages, fluid 5 % Synovial Fluid: (test code = 34578-9) WBC 0- 150/mm3 RBC 0-1/mm3 Diferential: Le ss than 25% Neutrophils. Lymphocytes and monocytes/histo cyt es predominatePeri car dial, Peritonea l andPleural Flui d: WBC <500/mm3 RB C <100/mm3 Diferential: Le ss than 25% Neutrophils. Lymphocytes, macrophages and mesothelial michael l predominate Lab Interpretation Abnormal (test code = 75213-8) [facility] body [id number] 18:07:01 Test Item Value Reference Range Interpretation Comments Misc fluid type (test Synovial code = 95862-8) Color, fluid (test Red code = 6824-7) Appearance, fluid Cloudy A (test code = 9335-1) RBC, fluid (test code SEE COMMENT See_Comment Many R BCs = 98096-8) seenUnable to quantitate due to fibrinous speci men Footnote------- -- [Automated message] The system which generated this result transmit cesar reference range : /CMM. The reference range was not used to interpret this result as normal/abnormal . Nucleated cells, SEE COMMENT See_Comment Many WBCs fluid (test [place] = [place] [address]-4) quantitate due to fibrinous specimenFootnot e-- ------- [Automa cesar message] The system which generated this result transmit cesar reference range : /CMM. The reference range was not used to interpret this result as normal/abnormal . Fluid mononuclear Diff to follow cell (test code = 1407) Neutrophils, fluid 85 % (test code = 32741-9) Lymphocytes, fluid 10 % (test code = 74601-4) Eosinophils, fluid 1 % (test code = 50607-2) Macrophages, fluid 5 % Synovial Fluid: (test code = 54494-5) WBC 0- 150/mm3 RBC 0-1/mm3 Diferential: Le ss than 25% Neutrophils. Lymphocytes and monocytes/histo cyt es predominatePeri car dial, Peritonea l andPleural Flui d: WBC <500/mm3 RB C <100/mm3 Diferential: Le ss than 25% Neutrophils. Lymphocytes, macrophages and mesothelial michael l predominate Lab Interpretation Abnormal (test code = 42981-1) [facility] [id number] 18:07:01 Test Item Value Reference Range Interpretation Comments Misc fluid type (test Synovial code = 38868-5) Color, fluid (test Red code = 6824-7) Appearance, fluid Cloudy A (test code = 9335-1) RBC, fluid (test code SEE COMMENT See_Comment Many R BCs = 76253-7) seenUnable to quantitate due to fibrinous speci men Footnote------- -- [Automated message] The system which generated this result transmit cesar reference range : /CMM. The reference range was not used to interpret this result as normal/abnormal . Nucleated cells, SEE COMMENT See_Comment Many WBCs fluid (test code = [place] [address]-2) quantitate due to fibrinous specimenFootnot e-- ------- [Automa cesar message] The system which generated this result transmit cesar reference range : /CMM. The reference range was not used to interpret this result as normal/abnormal . Fluid mononuclear Diff to follow cell (test code = 1407) Neutrophils, fluid 85 % (test code = 07527-8) Lymphocytes, fluid 10 % (test code = 60599-9) Eosinophils, fluid 1 % (test code = 15562-2) Macrophages, fluid 5 % Synovial Fluid: (test code = 26631-6) WBC 0- 150/mm3 RBC 0-1/mm3 Diferential: Le ss than 25% Neutrophils. Lymphocytes and monocytes/histo cyt es predominatePeri car dial, Peritonea l andPleural Flui d: WBC <500/mm3 RB C <100/mm3 Diferential: Le ss than 25% Neutrophils. Lymphocytes, macrophages and mesothelial michael l predominate Lab Interpretation Abnormal (test code = 61824-0) [facility] [id number] 18:07:01 Test Item Value Reference Range Interpretation Comments Misc fluid type (test Synovial code = 53451-6) Color, fluid (test Red code = 6824-7) Appearance, fluid Cloudy A (test code = 9335-1) RBC, fluid (test code SEE COMMENT See_Comment Many R BCs = 38906-3) seenUnable to quantitate due to fibrinous speci men Footnote------- -- [Automated message] The system which generated this result transmit cesar reference range : /CMM. The reference range was not used to interpret this result as normal/abnormal . Nucleated cells, SEE COMMENT See_Comment Many WBCs fluid (test [place] = [place] [address]-7) quantitate due to fibrinous specimenFootnot e-- ------- [Automa cesar message] The system which generated this result transmit cesar reference range : /CMM. The reference range was not used to interpret this result as normal/abnormal . Fluid mononuclear Diff to follow cell (test code = 1407) Neutrophils, fluid 85 % (test code = 96407-5) Lymphocytes, fluid 10 % (test code = 47430-0) Eosinophils, fluid 1 % (test code = 04237-8) Macrophages, fluid 5 % Synovial Fluid: (test code = 05246-9) WBC 0- 150/mm3 RBC 0-1/mm3 Diferential: Le ss than 25% Neutrophils. Lymphocytes and monocytes/histo cyt es predominatePeri car dial, Peritonea l andPleural Flui d: WBC <500/mm3 RB C <100/mm3 Diferential: Le ss than 25% Neutrophils. Lymphocytes, macrophages and mesothelial michael l predominate Lab Interpretation Abnormal (test code = 18470-3) [facility] [id number] 03:44:00 Test Item Value Reference Range Interpretation [...] calculated (test <100 Desira ble code = 19241-8) range <100 m g/dL for primary prevention; <70 mg/dL for patients with C HD or diabetic patients with > or = 2 CHD risk factors. LDL-C is now calculated using the Lydia calculation, which is a validated novel method providin g better accuracy than the Friedewald equation in the estimation of LDL-C. Robb S S et al. KAROLINA. 2013;310(19): 1441-4540 (http://educati on .Proginet .com/faq/UQK794 ) Cholesterol/HDL See_Comment [Automated ratio (test code = message] The 9830-1) system which generated this result transmitted reference range : <5.0 (calc). Th e reference range was not used to interpret this result as normal/abnormal . Non-HDL cholesterol See_Comment For deedee ents with (test code = diabetes plus 1 66441-0) major ASCVD ris k factor, treatin g to a non-HDL-C goal of <100 mg/dL (LDL-C of <70 mg/dL) is considered a therapeutic option. [Automated message] The system which generated this result transmitted reference range : <130 mg/dL (calc). The reference range was not used to interpret this result as normal/abnormal . MIOL (test code = FASTING:YES MILO) FASTING: YES RAC (test code = Performing RAC) Organization Information: Site ID: RGA Name: [facility] [facility] Address: [address] [place], [place] [id number] Director: Arley Cabello [facility] [id number] 03:44:00 Test Item Value Reference Range Interpretation [...] specif ic patient populat ions. Standards of Wi dical Care in Diabetes(ADA). [Automated mess age] The system Lurn[employer] generated this result transmitted ref erence range: <5.7 % o f total Hgb. The reference range was not used to int erpret this result as normal/abnormal . MILO (test code = FASTING:YES MILO) FASTING: YES RAC (test code = Performing RAC) Organization Information: Site ID: [id number] Name: [employer] [facility] Address: [address] [place] [address] Director: Arley Agudelo [facility] creatinine urine [id number] 03:44:00 Test Item Value Reference Interpretation Comments Range Creatinine, urine 86 mg/dL 20-320 (mg/dL) (test code = 2161-8) Microalbumin, urine 3.3 mg/dL See Note: Referenc e Range: (test code = Reference [place] [address]-6) established Microalbumin/creati See_Comment H The ADA defines [...] = Performing RAC) Organization Information: Site ID: DEJUAN Name: [employer] [facility] Address: [address] [place] [address] Director: Arley Agudelo Lab Interpretation Abnormal (test code = 54943-2) [facility], total with reflex to [id number] 03:44:00 Test Item Value Reference Interpretation Comments Range PSA (test code = 5.3 ng/mL See_Comment H [Automated message] 5247-1) The system LurnQ generated this result transmitted ref erence range: < OR = 4 .0. The reference range was not used to int erpret this result as normal/abnormal . PSA, free (test 1.0 ng/mL code = 19439-6) PSA, free percent See_Comment L PSA(ng/mL ) Free (test code = PSA(%) Estimate d(x) 77583-6) Probability of Cancer(as%)0-2. 5 (*) Approx. 12.6-4. 0(1) 0-27(2) 24(3)4. 1-10(4) 0-10 56 11-15 2 8 16-20 20 21-25 16 >o r =26 8>10(+) N/A >50 References:(1)Gregory ashby et al.:Urology 60: 469-474 (2001) (2)Karen et al.:J.Urol 168: 922-925 (2001) Free PSA(%) Sensitiv ity(%) Specificity(%) < or = 25 85 19 < or = 30 93 9 (3)Britneyona e t al.:KAROLINA 277: 1992-2448 (1996 ) (4)Catalona et al.:KAROLINA 279: 5198-5162 (1997 ) (x)These estima francis vary with [...] RAC) Organization Information: Site ID: IG Name: [employer] [facility] Address: [address] [place], [place] [address], [place] [address] Director: Dr. Arley Agudelo Lab Interpretation Abnormal (test code = 72486-1) [facility] Worth[facility]prehensi Metabolic Panel with Adjusted [id number] 03:44:00 Test Item Value Reference Interpretation Comments [...] n. EGFR Non-Afr. See_Comment [Automated me ssage] Mosotho (test code The syst em which = 4975) generated this result transmit cesar reference range : > OR = 60 mL/min/1.73m2. The reference range was not used to interpret this result as normal/abnormal . EGFR See_Comment [Automated mes surendra] Mosotho (test code The syst em which = 0674) generated this result transmit cesar reference range [...] . Sodium (test code = 139 mmol/L 792-642 2731-2) Potassium (test 4.7 mmol/L 3.5-5.3 code = 2823-3) Chloride (test code 104 mmol/L 98-110 = 2075-0) CO2 (test code = 27 mmol/L 20-32 2027-9) Calcium (test code 9.2 mg/dL 8.6-10.3 = 53910-3) Calcium (adjusted See_Comment [Automate d message] for albumin) (test The syste m which code = 71784-8) generated th is result transmit cesar reference range : 8.6 - 10.2 mg/dL (c alc). The reference r jay was not used to interpret this result as normal/abnormal . Protein (test code 9.4 g/dL 6.1-8.1 H = 2885-2) Albumin, S (test 3.3 g/dL 3.6-5.1 L code = 1751-7) Globulin, total See_Comment H [Automated message] (test code = The [place]ic h 83988-4) generated this result transmit cesar reference range [...] RAC) Organization Information: Site ID: RGA Name: [employer] Address: [address] [place] [address] Director: Arley Agudelo Lab Interpretation Abnormal (test code = 85010-7) [facility] [id number] 03:44:00 Test Item Value Reference Range Interpretation [...] . Triglycerides (test 53 mg/dL See_Comment [Automa ceasr code = 2571-8) message] The system which generated this result transmitted reference range : <=150. The reference range was not used to interpret this result as normal/abnormal . LDL cholesterol mg/dL (calc) Reference ra nge: calculated (test <100 Desira ble code = 67906-0) range <100 m g/dL for primary prevention; <70 mg/dL for patients with C HD or diabetic patients with > or = 2 CHD risk factors. LDL-C is now calculated using the Robb-Shane calculation, which is a validated novel method providin g better accuracy than the Friedewald equation in the estimation of LDL-C. Robb S S et al. KAROLINA. 2013;310(19): 0251-5848 (http://educati on .[employer] .com/faq/GII629 ) Cholesterol/HDL See_Comment [Automated ratio (test code = message] The 9830-1) system which generated this result transmitted reference range : <5.0 (calc). Th e reference range was not used to interpret this result as normal/abnormal . Non-HDL cholesterol See_Comment For deedee ents with (test code = diabetes plus 1 44711-9) major ASCVD ris k factor, treatin g [...] RAC) Organization Information: Site ID: RGA Name: [employer] [facility] Address: [address] [place] [address] Director: Arley Agudelo [facility] Worth[facility] [id number] 03:44:00 Test Item Value Reference Range Interpretation [...] in Diabetes(ADA). [Automated mess age] The system LurnQ generated this result transmitted ref erence range: <5.7 % o f total Hgb. The reference range was not used to int erpret this result as normal/abnormal . MILO (test code = FASTING:YES MILO) FASTING: YES RAC (test code = Performing RAC) Organization Information: Site ID: RGA [facility] Address: [address] [place] [address] Director: Arley Agudelo [facility] / creatinine urine [id number] 03:44:00 Test Item Value Reference Interpretation Comments Range Creatinine, urine 86 mg/dL 20-320 (mg/dL) (test code = 2161-8) Microalbumin, urine 3.3 mg/dL See Note: Referenc e Range: (test code = Reference Range Not 81707-0) established Microalbumin/creati See_Comment H The ADA defines [...] RAC) Organization Information: Site ID: RGA Name: [employer] [facility] Address: [address] [place] [address] Director: Arley Agudelo Lab Interpretation Abnormal (test code = 32777-4) [facility] with reflex to [id number] 03:44:00 Test Item Value Reference Interpretation Comments Range PSA (test code = 5.3 ng/mL See_Comment H [Automated message] 1341-9) The system [employer] h generated this result transmitted ref erence range: < OR = 4 .0. The reference range was not used to int erpret this result as normal/abnormal . PSA, free (test 1.0 ng/mL code = 46015-3) PSA, free percent See_Comment L PSA(ng/mL ) Free (test code = PSA(%) Estimate d(x) 45667-9) Probability of Cancer(as%)0-2. 5 (*) Approx. 12.6-4. 0(1) 0-27(2) 24(3)4. 1-10(4) 0-10 56 11-15 28 16-20 20 21-25 16 >or =26 8>10(+) N/A >50 References:(1)C symone et al.:Urology 60: 469-474 (2002) (2)Karen et al.:J.Urol 168: 922-925 (2001) Free PSA(%) Sensitiv ity(%) Specificity(%) < or = 25 85 19 < or = 30 93 9 (3)Karen e t al.:KAROLINA 277: 4859-3755 (1996 ) (4)Catalona et al.:KAROLINA 279: 2713-3571 (1997 ) (x)These estima francis vary with [...] RAC) Organization Information: Site ID: IG Name: [facility] Address: [address] [place] [phone] Director: Dr. Arley Agudelo Lab Interpretation Abnormal (test code = 34202-8) [facility] InstituteComprehensive Metabolic Panel with Adjusted [id number] 03:44:00 Test Item Value Reference Interpretation Comments [...] n. EGFR Non-Afr. See_Comment [Automated me ssage] Mosotho (test code The syst em which = 6720) generated this result transmit cesar reference range : > OR = 60 mL/min/1.73m2. The reference range was not used to interpret this result as normal/abnormal . EGFR See_Comment [Automated mes surendra] Mosotho (test code The syst em which = 4487) generated this result transmit cesar reference range : > OR = 60 mL/min/1.73m2. The reference range was not used to interpret this result as normal/abnormal . BUN/creatinine See_Comment [Automated m essage] ratio (test code = [employer] which 3097-3) generated this result transmit cesar reference range : 6 - 22 (calc). The reference range was not used to interpret this result as normal/abnormal . Sodium (test code = 139 mmol/L 951-859 2644-2) Potassium (test 4.7 mmol/L 3.5-5.3 code = 2823-3) Chloride (test code 104 mmol/L 98-110 = 2075-0) CO2 (test code = 27 mmol/L 20-32 2027-9) Calcium (test code 9.2 mg/dL 8.6-10.3 = 04159-6) Calcium (adjusted See_Comment [Automate d message] for albumin) (test The [employer] which code = 86713-5) generated th is result transmit cesar reference range : 8.6 - 10.2 mg/dL (c alc). The reference r jay was not used to interpret this result as normal/abnormal . Protein (test code 9.4 g/dL 6.1-8.1 H = 2885-2) Albumin, S (test 3.3 g/dL 3.6-5.1 L code = 1751-7) Globulin, total See_Comment H [Automated message] (test code = The system [employer] h 73412-8) generated this result transmit cesar reference range : 1.9 - 3.7 g/dL (jessica c). The reference r jay was not used to interpret this result as normal/abnormal . Albumin/globulin See_Comment L [Automated message] ratio (test code = The [employer] which 1759-0) generated this result transmit cesar reference range : 1.0 - 2.5 (calc). T he reference range was not used to interpret this result as normal/abnormal . Total bilirubin 0.4 mg/dL 0.2-1.2 (test code = 1974-2) Alkaline 62 U/L 35-144 phosphatase (test code = 6768-6) AST (test code = 30 U/L 10-35 1920-8) ALT (test code = 19 U/L 9-46 1742-6) MILO (test code = FASTING:YES MILO) FASTING: YES RAC (test code = Performing RAC) Organization Information: Site ID: RGA Name: [employer] Address: [address] [place] [phone] Director: Arley Agudelo Lab Interpretation Abnormal (test code = 11531-7) [facility] Institute[facility]id [id number] 03:44:00 Test Item Value Reference Range Interpretation [...] calculated (test <100 Desira ble code = 80553-2) range <100 m g/dL for primary prevention; <70 mg/dL for patients with C HD or diabetic patients with > or = 2 CHD risk factors. LDL-C is now calculated using the Robb-Shane calculation, which is a validated novel method providin g better accuracy than the Friedewald equation in the estimation of LDL-C. Robb S S et al. KAROLINA. 2013;310(19): 2062-6982 (http://educati on .Scilex PharmaceuticalsDiagnosti Kareo .com/faq/AQD656 ) Cholesterol/HDL See_Comment [Automated ratio (test code = message] The 9830-1) system which generated this result transmitted reference range : <5.0 (calc). Th e reference range was not used to interpret this result as normal/abnormal . Non-HDL cholesterol See_Comment For deedee ents with (test code = diabetes plus 1 79709-6) major ASCVD ris k factor, treatin g [...] RAC) Organization Information: Site ID: RGA Name: PS DEPT. n Lab Address: [address] [place] [address] Director: Arley PetersSaint David's Round [facility] CenterHemoglobin [id number] 03:44:00 Test Item Value Reference Range Interpretation [...] specif ic patient populat ions. Standards of Wi dical Care in Diabetes(ADA). [Automated mess age] The system LurnQ generated this result transmitted ref erence range: <5.7 % o f total Hgb. The reference range was not used to int erpret this result as normal/abnormal . MILO (test code = FASTING:YES MILO) FASTING: YES RAC (test code = Performing RAC) Organization Information: Site ID: RGA Name: PS DEPT. n Lab Address: [address] [place] [phone] Director: Arley VargasMercy Health St[facility] HospitalMicroalbumin / creatinine urine [id number] 03:44:00 Test Item Value Reference Interpretation Comments Range Creatinine, urine 86 mg/dL 20-320 (mg/dL) (test code = 2161-8) Microalbumin, urine 3.3 mg/dL See Note: Referenc e Range: (test code = Reference Range Not 85665-2) established Microalbumin/creati See_Comment H The ADA defines [...] RAC) Organization Information: Site ID: RGA [facility] Address: [address] [place] [phone] Director: Arley Agudelo Lab Interpretation Abnormal (test code = 08945-2) [facility] with reflex to [id number] 03:44:00 Test Item Value Reference Interpretation Comments Range PSA (test code = 5.3 ng/mL See_Comment H [Automated message] 5407-1) The system LurnQ generated this result transmitted ref erence range: < OR = 4 .0. The reference range was not used to int erpret this result as normal/abnormal . PSA, free (test 1.0 ng/mL code = 62306-2) PSA, free percent See_Comment L PSA(ng/mL ) Free (test code = PSA(%) Estimate d(x) 09504-5) Probability of Cancer(as%)0-2. 5 (*) Approx. 12.6-4. 0(1) 0-27(2) 24(3)4. 1-10(4) 0-10 56 11-15 2 8 16-20 20 21-25 16 >o r =26 8>10(+) N/A >50 References:(1)Gregory ashby et al.:Urology 60: 469-474 (2002) (2)Karen et al.:J.Urol 168: 922-925 (2001) Free PSA(%) Sensitiv ity(%) Specificity(%) < or = 25 85 19 < or = 30 93 9 (3)Karen olivas t al.:KAROLINA 277: 0983-6222 (1996 ) (4)Karen et al.:KAROLINA 279: 3801-9335 (1997 ) (x)These estima francis vary with [...] ofdisea se. [Automated mess age] The system [employer] h generated this result transmitted ref erence range: >25 % (c alc). The reference r jay was not used to interpret this result as normal/abnor mal. MILO (test code = FASTING:YES MILO) FASTING: YES RAC (test code = Performing RAC) Organization Information: Site ID: IG Name: [facility] as Lab Address: [address] [place] [address] Director: Dr. Arley Agudelo Lab Interpretation Abnormal (test code = 20059-6) [facility] CenterComprehensive Metabolic Panel with Adjusted [id number] 03:44:00 Test Item Value Reference Interpretation Comments [...] n. EGFR Non-Afr. See_Comment [Automated me ssage] Mosotho (test code The syst em which = 2775) generated this result transmit cesar reference range : > OR = 60 mL/min/1.73m2. The reference range was not used to interpret this result as normal/abnormal . EGFR See_Comment [Automated mes surendra] Mosotho (test code The syst em which = 2774) generated this result transmit cesar reference range : > OR = 60 mL/min/1.73m2. The reference range was not used to interpret this result as normal/abnormal . BUN/creatinine See_Comment [Automated m essage] ratio (test code = The [employer] which 3097-3) generated this result transmit cesar reference range : 6 - 22 (calc). The reference range was not used to interpret this result as normal/abnormal . Sodium (test code = 139 mmol/L 459-664 5325-2) Potassium (test 4.7 mmol/L 3.5-5.3 code = 2823-3) Chloride (test code 104 mmol/L 98-110 = 2075-0) CO2 (test code = 27 mmol/L 20-32 2027-9) Calcium (test code 9.2 mg/dL 8.6-10.3 = 54607-9) Calcium (adjusted See_Comment [Automate d message] for albumin) (test The syste which code = 22203-0) generated th is result transmit cesar reference range : 8.6 - 10.2 mg/dL (c alc). The reference r jay was not used to interpret this result as normal/abnormal . Protein (test code 9.4 g/dL 6.1-8.1 H = 2885-2) Albumin, S (test 3.3 g/dL 3.6-5.1 L code = 1751-7) Globulin, total See_Comment H [Automated message] (test code = The system [employer]Maker[employer] h 39022-0) generated this result transmit cesar reference range [...] bilirubin 0.4 mg/dL 0.2-1.2 (test code = 1975-2) Alkaline 62 U/L 35-144 phosphatase (test code = 6768-6) AST (test code = 30 U/L 10-35 1920-8) ALT (test code = 19 U/L 9-46 1742-6) MILO (test code = FASTING:YES MILO) FASTING: YES RAC (test code = Performing RAC) Organization Information: Site ID: RGA Name: [facility] on Lab Address: [address] [place] [phone] Director: Arley Agudelo Lab Interpretation Abnormal (test code = 45548-9) [facility] WorthLipid [id number] 03:44:00 Test Item Value Reference Range Interpretation [...] calculated (test <100 Desira ble code = 88129-7) range <100 m g/dL for primary prevention; <70 mg/dL for patients with C HD or diabetic patients with > or = 2 CHD risk factors. LDL-C is now calculated using the Lydia calculation, which is a validated novel method providin g better accuracy than the Friedewald equation in the estimation of LDL-C. Robb Prince S et al. KAROLINA. 2013;310(19): 7851-8246 (http://educati on .Proginet .com/faq/DEN610 ) Cholesterol/HDL See_Comment [Automated ratio (test code = message] The 9830-1) system which generated this result transmitted reference range : <5.0 (calc). Th e reference range was not used to interpret this result as normal/abnormal . Non-HDL cholesterol See_Comment For deedee ents with (test code = diabetes plus 1 23984-3) major ASCVD ris k factor, treatin g [...] RAC) Organization Information: Site ID: RGA Name: [employer]twon cynthia Lab Address: [address] [place] [address] Director: Arley Agudelo [facility] WorthHemoglobin [id number] 03:44:00 Test Item Value Reference Range Interpretation [...] specif ic patient populat ions. Standards of Wi dical Care in Diabetes(ADA). [Automated mess age] The system [employer] generated this result transmitted ref erence range: <5.7 % o f total Hgb. The reference range was not used to int erpret this result as normal/abnormal . MILO (test code = FASTING:YES MILO) FASTING: YES RAC (test code = Performing RAC) Organization Information: Site ID: DEJUAN Name: [employer] [facility] Lab Address: [address] [place] [phone] Director: Arley Agudelo [facility] WorthMicroalbumin / creatinine urine [id number] 03:44:00 Test Item Value Reference Interpretation Comments Range Creatinine, urine 86 mg/dL 20-320 (mg/dL) (test code = 2161-8) Microalbumin, urine 3.3 mg/dL See Note: Referenc e Range: (test code = Reference Range Not 85508-3) established Microalbumin/creati See_Comment H The ADA defines [...] = Performing RAC) Organization Information: Site ID: DEJUAN Name: [employer] Sandra on Lab Address: [address] [place] [phone] Director: Arley Agudelo Lab Interpretation Abnormal (test code = 86427-5) [facility] WorthPSA, total with reflex to [id number] 03:44:00 Test Item Value Reference Interpretation Comments Range PSA (test code = 5.3 ng/mL See_Comment H [Automated message] 1347-1) The system Lurn[employer] generated this result transmitted ref erence range: < OR = 4 .0. The reference range was not used to int erpret this result as normal/abnormal . PSA, free (test 1.0 ng/mL code = 51369-4) PSA, free percent See_Comment L PSA(ng/mL ) Free (test code = PSA(%) Estimate d(x) 03889-2) Probability of Cancer(as%)0-2. 5 (*) Approx. 12.6-4. 0(1) 0-27(2) 24(3)4. 1-10(4) 0-10 56 11-15 2 8 16-20 20 21-25 16 >o r =26 8>10(+) N/A >50 References:(1)Gregory ashby et al.:Urology 60: 469-474 (2001) (2)Karen et al.:J.Urol 168: 922-925 (2001) Free PSA(%) Sensitiv ity(%) Specificity(%) < or = 25 85 19 < or = 30 93 9 (3)Karen olivas t al.:KAROLINA 277: 0264-7806 (1996 ) (4)Karen et al.:KAROLINA 279: 4966-4227 (1997 ) (x)These estima francis vary with [...] RAC) Organization Information: Site ID: IG Name: [employer] Lab Address: [address] [place] [address] Director: Dr. Arley Agudelo Lab Interpretation Abnormal (test code = 92931-0) [facility] WorthComprehensive Metabolic Panel with Adjusted [id number] 03:44:00 Test Item Value Reference Interpretation Comments [...] n. EGFR Non-Afr. See_Comment [Automated me ssage] Mosotho (test code The syst em which = 2775) generated this result transmit cesar reference range : > OR = 60 mL/min/1.73m2. The reference range was not used to interpret this result as normal/abnormal . EGFR See_Comment [Automated mes surendra] Mosotho (test code The syst em which = 2774) generated this result transmit cesar reference range [...] . Sodium (test code = 139 mmol/L 684-504 4145-2) Potassium (test 4.7 mmol/L 3.5-5.3 code = 2823-3) Chloride (test code 104 mmol/L 98-110 = 2075-0) CO2 (test code = 27 mmol/L 20-32 8-9) Calcium (test code 9.2 mg/dL 8.6-10.3 = 93610-3) Calcium (adjusted See_Comment [Automate d message] for albumin) (test The syste m which code = 74172-2) generated th is result transmit cesar reference range : 8.6 - 10.2 mg/dL (c alc). The reference r jay was not used to interpret this result as normal/abnormal . Protein (test code 9.4 g/dL 6.1-8.1 H = 2885-2) Albumin, S (test 3.3 g/dL 3.6-5.1 L code = 1751-7) Globulin, total See_Comment H [Automated message] (test code = The [place] wh[place] h 76001-2) generated this result transmit cesar reference range [...] bilirubin 0.4 mg/dL 0.2-1.2 (test code = 1975-2) Alkaline 62 U/L 35-144 phosphatase (test code = 6768-6) AST (test code = 30 U/L 10-35 1920-8) ALT (test code = 19 U/L 9-46 1742-6) MILO (test code = FASTING:YES MILO) FASTING: YES RAC (test code = Performing RAC) Organization Information: Site ID: RGA Name: [employer] Lab Address: [address] [place] [phone] Director: Arley Agudelo Lab Interpretation Abnormal (test code = 08849-2) [facility] WorthLipid [id number] 03:44:00 Test Item Value Reference Range Interpretation [...] calculated (test <100 Desira ble code = 47447-9) range <100 m g/dL for primary prevention; <70 mg/dL for patients with C HD or diabetic patients with > or = 2 CHD risk factors. LDL-C is now calculated using the Robb-Shane calculation, which is a validated novel method providin g better accuracy than the Friedewald equation in the estimation of LDL-C. Robb S S et al. KAROLINA. 2013;310(19): 1517-5393 (http://educati on .Proginet .com/faq/VII831 ) Cholesterol/HDL See_Comment [Automated ratio (test code = message] The 9830-1) system which generated this result transmitted reference range : <5.0 (calc). Th e reference range was not used to interpret this result as normal/abnormal . Non-HDL cholesterol See_Comment For deedee ents with (test code = diabetes plus 1 59483-4) major ASCVD ris k factor, treatin g [...] RAC) Organization Information: Site ID: RGA Name: [employer]Gareth marie Lab Address: [address] [place] [phone] Director: Arley Agudelo [facility] WorthHemoglobin [id number] 03:44:00 Test Item Value Reference Range Interpretation [...] specif ic patient populat ions. Standards of Wi dical Care in Diabetes(ADA). [Automated mess age] The system LurnQ generated this result transmitted ref erence range: <5.7 % o f total Hgb. The reference range was not used to int erpret this result as normal/abnormal . MILO (test code = FASTING:YES MILO) FASTING: YES RAC (test code = Performing RAC) Organization Information: Site ID: RGA Name: [employer] Lab Address: [address] [place] [address] Director: Arley Agudelo [facility] WorthMicroalbumin / creatinine urine [id number] 03:44:00 Test Item Value Reference Interpretation Comments Range Creatinine, urine 86 mg/dL 20-320 (mg/dL) (test code = 2161-8) Microalbumin, urine 3.3 mg/dL See Note: Referenc e Range: (test code = Reference Range Not 13534-3) established Microalbumin/creati See_Comment H The ADA defines [...] RAC) Organization Information: Site ID: RGA Name: [facility] Lab Address: [address] [place] [address] Director: Arley Agudelo Lab Interpretation Abnormal (test code = 08981-8) Irineo Oquendo, total with reflex to [id number] 03:44:00 Test Item Value Reference Interpretation Comments Range PSA (test code = 5.3 ng/mL See_Comment H [Automated message] 2857-1) The system LurnQ generated this result transmitted ref erence range: < OR = 4 .0. The reference range was not used to int erpret this result as normal/abnormal . PSA, free (test 1.0 ng/mL code = 12089-4) PSA, free percent See_Comment L PSA(ng/mL ) Free (test code = PSA(%) Estimate d(x) 33880-0) Probability of Cancer(as%)0-2. 5 (*) Approx. 12.6-4. 0(1) 0-27(2) 24(3)4. 1-10(4) 0-10 56 11-15 28 16-20 20 21-25 16 >or =26 8>10(+) N/A >50 References:(1)Gregory ashby et al.:Urology 60: 469-474 (2001) (2)Britneyona et al.:J.Urol 168: 922-925 (2001) Free PSA(%) Sensitiv ity(%) Specificity(%) < or = 25 85 19 < or = 30 93 9 (3)Karen e t al.:KAROLINA 277: 6754-9525 (1996 ) (4)Catalona et al.:AKROLINA 279: 9438-8818 (1997 ) (x)These estima francis vary with [...] RAC) Organization Information: Site ID: IG Name: [employer] Lab Address: [address] [place] [phone] Director: Dr. Arley Agudelo Lab Interpretation Abnormal (test code = 45858-0) [facility]Com[facility] Metabolic Panel with Adjusted [id number] 03:44:00 Test Item Value Reference Interpretation Comments [...] n. EGFR Non-Afr. See_Comment [Automated me ssage] Mosotho (test code The syst em which = 1835) generated this result transmit cesar reference range : > OR = 60 mL/min/1.73m2. The reference range was not used to interpret this result as normal/abnormal . EGFR See_Comment [Automated mes surendra] Mosotho (test code The syst em which = 8194) generated this result transmit cesar reference range [...] . Sodium (test code = 139 mmol/L 201-719 7793-2) Potassium (test 4.7 mmol/L 3.5-5.3 code = 2823-3) Chloride (test code 104 mmol/L 98-110 = 2075-0) CO2 (test code = 27 mmol/L 20-32 2027-9) Calcium (test code 9.2 mg/dL 8.6-10.3 = 30730-4) Calcium (adjusted See_Comment [Automate d message] for albumin) (test The syste m which code = 83652-1) generated th is result transmit cesar reference range : 8.6 - 10.2 mg/dL (c alc). The reference r ajy was not used to interpret this result as normal/abnormal . Protein (test code 9.4 g/dL 6.1-8.1 H = 2885-2) Albumin, S (test 3.3 g/dL 3.6-5.1 L code = 1751-7) Globulin, total See_Comment H [Automated message] (test code = The system [facility] h [address]-4) generated this result transmit cesar reference range [...] bilirubin 0.4 mg/dL 0.2-1.2 (test code = 1974-2) Alkaline 62 U/L 35-144 phosphatase (test code = 6768-6) AST (test code = 30 U/L 10-35 1920-8) ALT (test code = 19 U/L 9-46 1742-6) MILO (test code = FASTING:YES MILO) FASTING: YES RAC (test code = Performing RAC) Organization Information: Site ID: RGA Name: [employer]oaquín on Lab Address: [address] [place] [address] Director: Arley Agudelo Lab Interpretation Abnormal (test code = 79834-7) [facility] Worth[facility]id [id number] 03:44:00 Test Item Value Reference Range Interpretation [...] calculated (test <100 Desira ble code = 88073-2) range <100 m g/dL for primary prevention; <70 mg/dL for patients with C HD or diabetic patients with > or = 2 CHD risk factors. LDL-C is now calculated using the Robb-Shane calculation, which is a validated novel method providin g better accuracy than the Friedewald equation in the estimation of LDL-C. Robb S S et al. KAROLINA. 2013;310(19): 4459-5045 (http://educati on .Scilex PharmaceuticalsDiagnosti Kareo .com/faq/XFW866 ) Cholesterol/HDL See_Comment [Automated ratio (test code = message] The 9830-1) system which generated this result transmitted reference range : <5.0 (calc). Th e reference range was not used to interpret this result as normal/abnormal . Non-HDL cholesterol See_Comment For deedee ents with (test code = diabetes plus 1 42469-6) major ASCVD ris k factor, treatin g [...] RAC) Organization Information: Site ID: RGA Name: [employer]Gareth marie Lab Address: [address] [place] [address] Director: Arley VargasMercy Health St. Charles HospitalHemoglobin [id number] 03:44:00 Test Item Value Reference Range Interpretation [...] specif ic patient populat ions. Standards of Wi dical Care in Diabetes(ADA). [Automated mess age] The system LurnQ generated this result transmitted ref erence range: <5.7 % o f total Hgb. The reference range was not used to int erpret this result as normal/abnormal . MILO (test code = FASTING:YES MILO) FASTING: YES RAC (test code = Performing RAC) Organization Information: Site ID: RGA Name: [employer] Lab Address: [address] [place] [phone] Director: Arley PetersSaint David's Round Rock Medical CenterMicroalbumin / creatinine urine [id number] 03:44:00 Test Item Value Reference Interpretation Comments Range Creatinine, urine 86 mg/dL 20-320 (mg/dL) (test code = 2161-8) Microalbumin, urine 3.3 mg/dL See Note: Referenc e Range: (test code = Reference Range Not 61448-2) established Microalbumin/creati See_Comment H The ADA defines [...] = Performing RAC) Organization Information: Site ID: DEJUAN Name: [facility]SP[facility] on Lab Address: [address] [place] [address] Director: Arley Agudelo Lab Interpretation Abnormal (test code = 63825-1) Gnosticist [facility] with reflex to [id number] 03:44:00 Test Item Value Reference Interpretation Comments Range PSA (test code = 5.3 ng/mL See_Comment H [Automated message] 6827-1) The system LurnQ generated this result transmitted ref erence range: < OR = 4 .0. The reference range was not used to int erpret this result as normal/abnormal . PSA, free (test 1.0 ng/mL code = 25784-9) PSA, free percent See_Comment L PSA(ng/mL ) Free (test code = PSA(%) Estimate d(x) 64216-2) Probability of Cancer(as%)0-2. 5 (*) Approx. 12.6-4. 0(1) 0-27(2) 24(3)4. 1-10(4) 0-10 56 11-15 2 8 16-20 20 21-25 16 >or =26 8>10(+) N/A >50 References:(1)Gregory ashby et al.:Urology 60: 469-474 (2002) (2)Karen et al.:J.Urol 168: 922-925 (2002) Free PSA(%) Sensitiv ity(%) Specificity(%) < or = 25 85 19 < or = 30 93 9 (3)Karen olivas t al.:KAROLINA 277: 9226-6540 (1996 ) (4)Karen et al.:KAROLINA 279: 0130-4442 (1997 ) (x)These estima francis vary with [...] = Performing RAC) Organization Information: Site ID: Name: [employer] as Lab Address: [address] [place] [phone] Director: Dr. Arley Agudelo Lab Interpretation Abnormal (test code = 56239-9) [facility]Com[facility] Metabolic Panel with Adjusted [id number] 03:44:00 Test Item Value Reference Interpretation Comments [...] n. EGFR Non-Afr. See_Comment [Automated me ssage] Mosotho (test code The syst em which = 6079) generated this result transmit cesar reference range : > OR = 60 mL/min/1.73m2. The reference range was not used to interpret this result as normal/abnormal . EGFR See_Comment [Automated mes surendra] Mosotho (test code The syst em which = 2774) generated this result transmit cesar reference range : > OR = 60 mL/min/1.73m2. The reference range was not used to interpret this result as normal/abnormal . BUN/creatinine See_Comment [Automated m essage] ratio (test code = The [facility] which 3097-3) generated this result transmit cesar reference range : 6 - 22 (calc). The reference range was not used to interpret this result as normal/abnormal . Sodium (test code = 139 mmol/L 108-083 2898-2) Potassium (test 4.7 mmol/L 3.5-5.3 code = 2823-3) Chloride (test code 104 mmol/L 98-110 = 2075-0) CO2 (test code = 27 mmol/L 20-32 2027-9) Calcium (test code 9.2 mg/dL 8.6-10.3 = 08737-0) Calcium (adjusted See_Comment [Automate d message] for albumin) (test The [facility] which code = 12833-4) generated th is result transmit cesar reference range : 8.6 - 10.2 mg/dL (c alc). The reference r ajy was not used to interpret this result as normal/abnormal . Protein (test code 9.4 g/dL 6.1-8.1 H = 2885-2) Albumin, S (test 3.3 g/dL 3.6-5.1 L code = 1751-7) Globulin, total See_Comment H [Automated message] (test code = The system [facility] h 74[address]-7) generated this result transmit cesar reference range : 1.9 - 3.7 g/dL (jessica c). The reference r jay was not used to interpret this result as normal/abnormal . Albumin/globulin See_Comment L [Automated message] ratio (test code = The [facility] which 1759-0) generated this result transmit cesar reference range : 1.0 - 2.5 (calc). T he reference range was not used to interpret this result as normal/abnormal . Total bilirubin 0.4 mg/dL 0.2-1.2 (test code = 1975-2) Alkaline 62 U/L 35-144 phosphatase (test code = 6768-6) AST (test code = 30 U/L 10-35 1920-8) ALT (test code = 19 U/L 9-46 1742-6) MILO (test code = FASTING:YES MILO) FASTING: YES RAC (test code = Performing RAC) Organization Information: Site ID: RGA Name: [employer] on Lab Address: [address] [place] [phone] Director: Arley Agudelo Lab Interpretation Abnormal (test code = 32998-9) [facility] [facility] [id number] 03:44:00 Test Item Value Reference Range Interpretation [...] calculated (test <100 Desira ble code = 86969-6) range <100 m g/dL for primary prevention; <70 mg/dL for patients with C HD or diabetic patients with > or = 2 CHD risk factors. LDL-C is now calculated using the Robb-Shane calculation, which is a validated novel method providin g better accuracy than the Friedewald equation in the estimation of LDL-C. Robb S S et al. KAROLINA. 2013;310(19): 2025-2894 (http://educati on .QuestDiagnosti Kareo .com/faq/GGJ444 ) Cholesterol/HDL See_Comment [Automated ratio (test code = message] The 9830-1) system which generated this result transmitted reference range : <5.0 (calc). Th e reference range was not used to interpret this result as normal/abnormal . Non-HDL cholesterol See_Comment For deedee ents with (test code = diabetes plus 1 77262-2) major ASCVD ris k factor, treatin g to a non-HDL-C goal of <100 mg/dL (LDL-C of <70 mg/dL) is considered a therapeutic option. [Automated message] The system which generated this result transmitted reference range : <130 mg/dL (calc). The reference range was not used to interpret this result as normal/abnormal . MIOL (test code = FASTING:YES MILO) FASTING: YES RAC (test code = Performing RAC) Organization Information: Site ID: RGA Name: PS DEPT. n Lab Address: [address] [place] [phone] Director: Arley [facility]udelo [facility] [id number] 03:44:00 Test Item Value Reference Range Interpretation [...] specif ic patient populat ions. Standards of Wi dical Care in Diabetes(ADA). [Automated mess age] The system LurnQ generated this result transmitted ref erence range: <5.7 % o f total Hgb. The reference range was not used to int erpret this result as normal/abnormal . MILO (test code = FASTING:YES MILO) FASTING: YES RAC (test code = Performing RAC) Organization Information: Site ID: RGA Name: PS DEPT. n Lab Address: [address] [place] [phone] Director: Arley PetersSaint [facility] CenterMicroalbumin / creatinine urine [id number] 03:44:00 Test Item Value Reference Interpretation Comments Range Creatinine, urine 86 mg/dL 20-320 (mg/dL) (test code = 2161-8) Microalbumin, urine 3.3 mg/dL See Note: Referenc e Range: (test code = Reference Range Not 300[address]-6) established Microalbumin/creati See_Comment H The ADA defines [...] a diagnostic category. [Auto mated message] The BitAnimate stem which generated this result transmit cesar reference range : <30 mcg/mg creat. T he reference range was not used to interpret this result as normal/abnormal . MILO (test code = FASTING:YES MILO) FASTING: YES RAC (test code = Performing RAC) Organization Information: Site ID: RGA [facility] Address: [address] [place] [phone] Director: Arley Agudelo Lab Interpretation Abnormal (test code = 97380-3) [facility] with reflex to [id number] 03:44:00 Test Item Value Reference Interpretation Comments Range PSA (test code = 5.3 ng/mL See_Comment H [Automated message] 8394-4) The system LurnQ generated this result transmitted ref erence range: < OR = 4 .0. The reference range was not used to int erpret this result as normal/abnormal . PSA, free (test 1.0 ng/mL code = 93580-1) PSA, free percent See_Comment L PSA(ng/mL ) Free (test code = PSA(%) Estimate d(x) 78816-0) Probability of Cancer(as%)0-2. 5 (*) Approx. 12.6-4. 0(1) 0-27(2) 24(3)4. 1-10(4) 0-10 56 11-15 28 16-20 20 21-25 16 >or =26 8>10(+) N/A >50 References:(1)Gregory ashby et al.:Urology 60: 469-474 (2002) (2)Karen et al.:J.Urol 168: 922-925 (2001) Free PSA(%) Sensitiv ity(%) Specificity(%) < or = 25 85 19 < or = 30 93 9 (3)Karen olivas t al.:KAROLINA 277: 7509-6418 (1996 ) (4)Karen et al.:KAROLINA 279: 4934-0157 (1997 ) (x)These estima francis vary with [...] RAC) Organization Information: Site ID: IG Name: [employer] as Lab Address: [address] [place] [address] Director: Dr. Arley Agudelo Lab Interpretation Abnormal (test code = 51729-8) [facility] with Adjusted [id number] 03:44:00 Test Item Value Reference Interpretation Comments Range Glucose (test code 64 mg/dL 65-99 L Fasting reference = 2345-7) interval BUN (test code = 21 mg/dL 7- 3094-0) Creatinine (test 1.19 mg/dL 0.70-1.18 H For patient s >49 code = 2160-0) years of age, the reference limit for Creatinine is approximately 1 3% higher for peopleidentifie d as -Debra n. EGFR Non-Afr. See_Comment [Automated me ssage] Mosotho (test code The syst em which = 2775) generated this result transmit cesar reference range : > OR = 60 mL/min/1.73m2. The reference range was not used to interpret this result as normal/abnormal . EGFR See_Comment [Automated mes surendra] Mosotho (test code The syst em which = 6424) generated this result transmit cesar reference range : > OR = 60 mL/min/1.73m2. The reference range was not used to interpret this result as normal/abnormal . BUN/creatinine See_Comment [Automated m essage] ratio (test code = The [employer] m which 3097-3) generated this result transmit cesar reference range : 6 - 22 (calc). The reference range was not used to interpret this result as normal/abnormal . Sodium (test code = 139 mmol/L 173-270 6308-2) Potassium (test 4.7 mmol/L 3.5-5.3 code = 2823-3) Chloride (test code 104 mmol/L 98-110 = 2075-0) CO2 (test code = 27 mmol/L 20-32 2028-9) Calcium (test code 9.2 mg/dL 8.6-10.3 = 89776-3) Calcium (adjusted See_Comment [Automate d message] for albumin) (test The syste m which code = 27033-5) generated th is result transmit cesar reference range : 8.6 - 10.2 mg/dL (c alc). The reference r jay was not used to interpret this result as normal/abnormal . Protein (test code 9.4 g/dL 6.1-8.1 H = 2885-2) Albumin, S (test 3.3 g/dL 3.6-5.1 L code = 1751-7) Globulin, total See_Comment H [Automated message] (test code = The system [employer] h 32734-5) generated this result transmit cesar reference range [...] bilirubin 0.4 mg/dL 0.2-1.2 (test code = 1975-2) Alkaline 62 U/L 35-144 phosphatase (test code = 6768-6) AST (test code = 30 U/L 10-35 1920-8) ALT (test code = 19 U/L 9-46 1742-6) MILO (test code = FASTING:YES MILO) FASTING: YES RAC (test code = Performing RAC) Organization Information: Site ID: RGA Name: [employer] Lab Address: [address] [place] [phone] Director: Arley Agudelo Lab Interpretation Abnormal (test code = 94639-2) [facility] Worth[facility] [id number] 03:44:00 Test Item Value Reference Range Interpretation [...] calculated (test <100 Desira ble code = 88952-2) range <100 m g/dL for primary prevention; <70 mg/dL for patients with C HD or diabetic patients with > or = 2 CHD risk factors. LDL-C is now calculated using the Robb-Shane calculation, which is a validated novel method providin g better accuracy than the Friedewald equation in the estimation of LDL-C. Robb S S et al. KAROLINA. 2013;310(19): 5890-5208 (http://educati on .Proginet .com/faq/IFS841 ) Cholesterol/HDL See_Comment [Automated ratio (test code = message] The 9830-1) system which generated this result transmitted reference range : <5.0 (calc). Th e reference range was not used to interpret this result as normal/abnormal . Non-HDL cholesterol See_Comment For deedee ents with (test code = diabetes plus 1 56613-0) major ASCVD ris k factor, treatin g [...] RAC) Organization Information: Site ID: RGA Name: [employer] Lab Address: [address] [place] [phone] Director: Arley Agudelo [facility] WorthHemoglobin [id number] 03:44:00 Test Item Value Reference Range Interpretation [...] specif ic patient populat ions. Standards of Wi dical Care in Diabetes(ADA). [Automated mess age] The system LurnQ generated this result transmitted ref erence range: <5.7 % o f total Hgb. The reference range was not used to int erpret this result as normal/abnormal . MILO (test code = FASTING:YES MILO) FASTING: YES RAC (test code = Performing RAC) Organization Information: Site ID: RGA Name: [employer] [facility] Lab Address: [address] [place] [phone] Director: Arley Agudelo [facility] WorthMicroalbumin / creatinine urine [id number] 03:44:00 Test Item Value Reference Interpretation Comments Range Creatinine, urine 86 mg/dL 20-320 (mg/dL) (test code = 2161-8) Microalbumin, urine 3.3 mg/dL See Note: Referenc e Range: (test code = Reference Range Not 42695-7) established Microalbumin/creati See_Comment H The ADA defines [...] RAC) Organization Information: Site ID: RGA Name: [employer] [facility] Lab Address: [address] [place] [address] Director: Arley Agudelo Lab Interpretation Abnormal (test code = 30801-8) [facility], total with reflex to [id number] 03:44:00 Test Item Value Reference Interpretation Comments Range PSA (test code = 5.3 ng/mL See_Comment H [Automated message] 6639-) The system LurnQ generated this result transmitted ref erence range: < OR = 4 .0. The reference range was not used to int erpret this result as normal/abnormal . PSA, free (test 1.0 ng/mL code = 45432-9) PSA, free percent See_Comment L PSA(ng/mL ) Free (test code = PSA(%) Estimate d(x) 06911-1) Probability of Cancer(as%)0-2. 5 (*) Approx. 12.6-4. 0(1) 0-27(2) 24(3)4. 1-10(4) 0-10 56 11-15 28 16-20 20 21-25 16 >or =26 8>10(+) N/A >50 References:(1)Gregory ashby et al.:Urology 60: 469-474 (2001) (2)Karen et al.:J.Urol 168: 922-925 (2001) Free PSA(%) Sensitiv ity(%) Specificity(%) < or = 25 85 19 < or = 30 93 9 (3)Kaern e t al.:KAROLINA 277: 3331-4466 (1996 ) (4)Catalona et al.:KAROLINA 279: 8155-2827 (1997 ) (x)These estima francis vary with [...] RAC) Organization Information: Site ID: IG Name: [employer] as Lab Address: [address] [facility] [place] [address] Director: Dr. Arley Agudelo Lab Interpretation Abnormal (test code = 20126-8) [facility] Metabolic Panel with Adjusted [id number] 03:44:00 Test Item Value Reference Interpretation Comments [...] n. EGFR Non-Afr. See_Comment [Automated me ssage] Mosotho (test code The syst em which = 2675) generated this result transmit cesar reference range : > OR = 60 mL/min/1.73m2. The reference range was not used to interpret this result as normal/abnormal . EGFR See_Comment [Automated mes surendra] Mosotho (test code The syst em which = 1204) generated this result transmit cesar reference range [...] . Sodium (test code = 139 mmol/L 700-748 8379-2) Potassium (test 4.7 mmol/L 3.5-5.3 code = 2823-3) Chloride (test code 104 mmol/L 98-110 = 2075-0) CO2 (test code = 27 mmol/L 20-32 8-9) Calcium (test code 9.2 mg/dL 8.6-10.3 = 66606-7) Calcium (adjusted See_Comment [Automate d message] for albumin) (test The syste m which code = 32455-4) generated th is result transmit cesar reference range : 8.6 - 10.2 mg/dL (c alc). The reference r jay was not used to interpret this result as normal/abnormal . Protein (test code 9.4 g/dL 6.1-8.1 H = 2885-2) Albumin, S (test 3.3 g/dL 3.6-5.1 L code = 1751-7) Globulin, total See_Comment H [Automated message] (test code = [place] [address]-2) generated this result transmit cesar reference range [...] bilirubin 0.4 mg/dL 0.2-1.2 (test code = 1975-2) Alkaline 62 U/L 35-144 phosphatase (test code = 6768-6) AST (test code = 30 U/L 10-35 1920-8) ALT (test code = 19 U/L 9-46 1742-6) MILO (test code = FASTING:YES MILO) FASTING: YES RAC (test code = Performing RAC) Organization Information: Site ID: RGA Name: [employer] Lab Address: [address] [place] [phone] Director: Arley Agudelo Lab Interpretation Abnormal (test code = 13616-8) [facility] [id number] 03:44:00 Test Item Value Reference Range Interpretation Comments Cholesterol, total 90 mg/dL See_Comment [Automat ed (test code = 2092-3) message ] The system which generated this result transmitted reference range : <=200. The reference range was not used to interpret this result as normal/abnormal . HDL cholesterol 41 mg/dL See_Comment [Automated (test code = 2084-9) message ] The system which generated this [...] calculated (test <100 Desira ble code = 15375-5) range <100 m g/dL for primary prevention; <70 mg/dL for patients with C HD or diabetic patients with > or = 2 CHD risk factors. LDL-C is now calculated using the Lydia calculation, which is a validated novel method providin g better accuracy than the Friedewald equation in the estimation of LDL-C. Robb S S et al. KAROLINA. 2013;310(19): 3101-1499 (http://educati on .Proginet .com/faq/PKU522 ) Cholesterol/HDL See_Comment [Automated ratio (test code = message] The 9830-1) system which generated this result transmitted reference range : <5.0 (calc). Th e reference range was not used to interpret this result as normal/abnormal . Non-HDL cholesterol See_Comment For deedee ents with (test code = diabetes plus 1 23832-6) major ASCVD ris k factor, treatin g [...] RAC) Organization Information: Site ID: RGA Name: [employer] Lab Address: [address] [place] [address] Director: Arley Agudelo [facility] Worth[facility]emoglobin [id number] 03:44:00 Test Item Value Reference Range Interpretation [...] specif ic patient populat ions. Standards of Wi dical Care in Diabetes(ADA). [Automated mess age] The system LurnQ generated this result transmitted ref erence range: <5.7 % o f total Hgb. The reference range was not used to int erpret this result as normal/abnormal . MILO (test code = FASTING:YES MILO) FASTING: YES RAC (test code = Performing RAC) Organization Information: Site ID: RGA Name: [facility] Lab Address: [address] [place] [address] Director: Arley Agudelo [facility] Worth[facility]in / creatinine urine [id number] 03:44:00 Test Item Value Reference Interpretation Comments Range Creatinine, urine 86 mg/dL 20-320 (mg/dL) (test code = 2161-8) Microalbumin, urine 3.3 mg/dL See Note: Referenc e Range: (test code = [place] 37[address]-6) established Microalbumin/creati See_Comment H The ADA defines [...] a diagnostic category. [Auto mated message] The BitAnimate stem which generated this result transmit cesar reference range : <30 mcg/mg creat. T he reference range was not used to interpret this result as normal/abnormal . MILO (test code = FASTING:YES MILO) FASTING: YES RAC (test code = Performing RAC) Organization Information: Site ID: RGA Name: [employer] on Lab Address: [address] [place] [address] Director: Arley Agudelo Lab Interpretation Abnormal (test code = 19350-9) Irineo Oquendo, mallory with reflex to [id number] 03:44:00 Test Item Value Reference Interpretation Comments Range PSA (test code = 5.3 ng/mL See_Comment H [Automated message] 3337-1) The system LurnQ generated this result transmitted ref erence range: < OR = 4 .0. The reference range was not used to int erpret this result as normal/abnormal . PSA, free (test 1.0 ng/mL code = 19840-2) PSA, free percent See_Comment L PSA(ng/mL ) Free (test code = PSA(%) Estimate d(x) 58612-4) Probability of Cancer(as%)0-2. 5 (*) Approx. 12.6-4. 0(1) 0-27(2) 24(3)4. 1-10(4) 0-10 56 11-15 2 8 16-20 20 21-25 16 >o r =26 8>10(+) N/A >50 References:(1)Gregory ashby et al.:Urology 60: 469-474 (2001) (2)Karen et al.:J.Urol 168: 922-925 (2001) Free PSA(%) Sensitiv ity(%) Specificity(%) < or = 25 85 19 < or = 30 93 9 (3)Karen e t al.:KAROLINA 277: 7888-6413 (1996 ) (4)Catalona et al.:KAROLINA 279: 3614-2747 (1997 ) (x)These estima francis vary with [...] RAC) Organization Information: Site ID: IG Name: [facility] as Lab Address: [address] [place] [phone] Director: Dr. Arley Agudelo Lab Interpretation Abnormal (test code = 11832-7) [facility] with [facility]ed [id number] 03:44:00 Test Item Value Reference Interpretation Comments [...] n. EGFR Non-Afr. See_Comment [Automated me ssage] Mosotho (test code The syst em which = 8783) generated this result transmit cesar reference range : > OR = 60 mL/min/1.73m2. The reference range was not used to interpret this result as normal/abnormal . EGFR See_Comment [Automated mes surendra] Mosotho (test code The syst em which = 5219) generated this result transmit cesar reference range [...] . Sodium (test code = 139 mmol/L 544-101 3266-2) Potassium (test 4.7 mmol/L 3.5-5.3 code = 2823-3) Chloride (test code 104 mmol/L 98-110 = 2075-0) CO2 (test code = 27 mmol/L 20-32 2027-9) Calcium (test code 9.2 mg/dL 8.6-10.3 = 78312-9) Calcium (adjusted See_Comment [Automate d message] for albumin) (test The syste m which code = 12799-3) generated th is result transmit cesar reference range : 8.6 - 10.2 mg/dL (c alc). The reference r jay was not used to interpret this result as normal/abnormal . Protein (test code 9.4 g/dL 6.1-8.1 H = 2885-2) Albumin, S (test 3.3 g/dL 3.6-5.1 L code = 1751-7) Globulin, total See_Comment H [Automated message] (test code = [place] [address]-1) generated this result transmit cesar reference range [...] bilirubin 0.4 mg/dL 0.2-1.2 (test code = 1974-2) Alkaline 62 U/L 35-144 phosphatase (test code = 6768-6) AST (test code = 30 U/L 10-35 1919-8) ALT (test code = 19 U/L -46 1742-6) MILO (test code = FASTING:YES MILO) FASTING: YES RAC (test code = Performing RAC) Organization Information: Site ID: A Name: [employer] Address: [address] [place] [phone] Director: Arley Agudelo Lab Interpretation Abnormal (test code = 99609-7) Irineo HardyYuvblztkHwftrsmsi2896-87-49 14:33:34 Test Item Value Reference Range Interpretation Comments Cologuard result Negative Negative NEGATIVE TE ST RESULT. A reportable (test negative Co loguard result code = 6325) indicates a low likelihood that a colorectal canc er (CRC) or advanced nova noma (adenomatous po lyps with more advanced pre-malignant f eatures) is present. The chance that a person w ith a negative Cologu maria elena test has a colorecta l cancer is [...] ith both Cologuard and colonoscopy. (I kimo Cloud. et al, N Eng l J Med 2014;370(14):12 86-1297) The normal valu e (reference rang e) for this assay is negative.COLOGU MARIA ELENA RE-SCREENING RECOMMENDATION: Periodic colorectal canc er screening is an important part of [facility] healthcare for asymptomatic in dividuals at average risk for colorectal canc er. Following a neg ative Cologuard resul t, the [place] Cancer Society and U.S. Multi- Society Task Force scre ening guidelines anna mmend a Cologuard re-sc reening interval of 3 y ears. References: [place] r[place] Cancer Society Guideline for Colorectal Cancer Screening: https://www.can cer.org/ca ncer/colon-rect al-cancer/ detection-diagn osis-stagi ng/acs-recommen dations.ht ml.; Jeff REDDY, Eliceo PINEDO, Kieran GARCIA, Co lorectal Cancer Screenin g: Recommendations for Physicians and Patients from the U.S. Multi-Society T ask Force on Colorectal C ancer Screening , Am J Gastroenterolog y 2017; 112:3700-9152.T EST DESCRIPTION: Co mposite algorithmic gabrielle lysis [...] both Colog uard and colonoscopy. (I kimo T. et al, [...] be accessed at the following locat ion: [email or web address] om/results . Additional de scription of the Cologuar d test process, radha olivas and precautions can be found at www.cologuar d.[email or web address]. [facility]Jeff[facility]NksdjxkkNtlcjqecm4949-18-33 14:33:34 Test Item Value Reference Range Interpretation Comments Cologuard result Negative Negative NEGATIVE TE ST RESULT. A reportable (test negative Co loguard result code = 6325) indicates a low likelihood that a colorectal canc er (CRC) or advanced nova noma (adenomatous po lyps with more advanced pre-malignant f eatures) is present. The chance that a person w ith a negative Cologu maria elena test has a colorecta l cancer is [...] ith both Cologuard and colonoscopy. (I kimo Lam al, N Eng l J Med 2014;370(14):12 86-1297) The normal valu e (reference rang e) for this assay is negative.COLOGU MARIA ELENA RE-SCREENING RECOMMENDATION: Periodic colorectal canc er screening is an important part of [facility] for asymptomatic in dividuals at average risk for colorectal canc er. Following a neg ative Cologuard resul t, the [place] Cancer Society and U.S. Multi- Society Task Force scre ening guidelines anna mmend a Cologuard re-sc reening interval of 3 y ears. References: [place] r[place] Cancer Society Guideline for Colorectal Cancer Screening: https://www.can cer.org/ca ncer/colon-rect al-cancer/ detection-diagn osis-stagi ng/acs-recommen dations.ht ml.; Jeff DK, Eliceo garzon CR, Kieran GARCIA, Co lorectal Cancer Screenin g: Recommendations for Physicians and Patients from the U.S. Multi-Society T ask Force on Colorectal C ancer Screening , Am J Gastroenterolog y 2017; 112:5685-9719.T EST DESCRIPTION: Co mposite algorithmic gabrielle lysis [...] both Colog uard and colonoscopy. (I kimo Varghese et al, N Eng l J Med [...] be accessed at the following locat ion: [email or web address] om/[email or web address] . Additional de scription of the Cologuar d test process, radha olivas and precautions can be found at www.cologuar d.[email or web address]. Gnosticist AbhlvoxwOqhynqpwp6405-13-50 14:33:34 Test Item Value Reference Range Interpretation Comments Cologuard result Negative Negative NEGATIVE TE ST RESULT. A reportable (test negative Co loguard result code = 6325) indicates a low likelihood that a colorectal canc er (CRC) or advanced nova noma (adenomatous po lyps with more advanced pre-malignant f eatures) is present. The chance that a person w ith a negative Cologu maria elena test has a colorecta l cancer is [...] rang e) for this assay is negative.COLOGU MARIA ELENA RE-SCREENING RECOMMENDATION: Periodic colorectal canc er screening is an important part of [facility] healthcare for asymptomatic in dividuals at average risk for colorectal canc er. Following a neg ative Cologuard resul t, the [place] Cancer Society and U.S. Multi- Society Task Force scre ening guidelines anna mmend a Cologuard re-sc reening interval of 3 y ears. References: [place] r[place] Cancer Society Guideline for Colorectal Cancer Screening: https://www.can cer.org/ca ncer/colon-rect al-cancer/ detection-diagn osis-stagi ng/acs-recommen dations.ht ml.; Jeff DK, Eliceo garzon CR, Kieran GARCIA, Co lorectal Cancer Screenin g: Recommendations for Physicians and Patients from the U.S. Multi-Society T ask Force on Colorectal C ancer Screening , Am J Gastroenterolog y 2017; 112:7949-2667.T EST DESCRIPTION: Co mposite algorithmic gabrielle lysis of stool DNA-bioma rkers with hemoglobin immu noassay. Quantitative va lues of individual biom arkers are not reportable and are not associated with individual biom arker result referenc e ranges. Colfranciscord is in tended for colorectal canc er [...] both Colog uard and colonoscopy. (I kimo Cloud. et al, N Eng l J Med [...] be accessed at the following locat ion: [email or web address] om/results . Additional de scription of the Cologuar d test process, radha olivas and precautions can be found at www.[email or web address] d.[email or web address]. Gnosticist SktquxglBkhigshxe8626-01-06 14:33:34 Test Item Value Reference Range Interpretation Comments Cologuard result Negative Negative NEGATIVE TE ST RESULT. A reportable (test negative Co loguard result code = 6325) indicates a low likelihood that a colorectal canc er (CRC) or advanced nova noma (adenomatous po lyps with more advanced pre-malignant f eatures) is present. The chance that a person w ith a negative Cologu maria elena test has a colorecta l cancer is [...] ith both Cologuard and colonoscopy. (I kimo Varghese et al, N Eng l J Med 2014;370(14):12 86-1297) The normal valu e (reference rang e) for this assay is negative.COLOGU MARIA ELENA RE-SCREENING RECOMMENDATION: Periodic colorectal canc er screening is an important part of prevent sandeep healthcare for asymptomatic in dividuals at average risk for colorectal canc er. Following a neg ative Cologuard resul t, the [place] [employer] and U.S. Multi- Society Task Force scre ening guidelines anna mmend a Cologuard re-sc reening interval of 3 y ears. References: [place] [employer] Guideline for Colorectal Cancer Screening: https://www.can cer.org/ca ncer/colon-rect al-cancer/ detection-diagn osis-stagi ng/acs-recommen dations.ht ml.; Jeff DK, Eliceo garzon CR, Kieran GARCIA, Co lorectal Cancer Screenin g: Recommendations for Physicians and Patients from the U.S. Multi-Society T ask Force on Colorectal C ancer Screening , Am J Gastroenterolog y 2017; 112:0672-9937.T EST DESCRIPTION: Co mposite algorithmic gabrielle lysis [...] These estimates are d erived from a [facility] cross-sectional screening study of 10,000 individuals at average risk for colore ctal cancer who were screened with both Colog uard and colonoscopy. (I kimo Cloud. et al, N Eng l J Med 2014;370(14):12 86-1295.) Cologuard may p roduce a false negative [...] be accessed at the following locat ion: www.[email or web address] om/results . Additional de scription of the Cologuar d test process, radha olivas and precautions can be found at www.[email or web address] d.[email or web address]. [facility]HjwxjkvsQwncmwwzs2951-56-07 14:33:34 Test Item Value Reference Range Interpretation Comments Cologuard result Negative Negative NEGATIVE TE ST RESULT. A reportable (test negative Co loguard result code = 6325) indicates a low likelihood that a colorectal canc er (CRC) or advanced nova noma (adenomatous po lyps with more advanced pre-malignant f eatures) is present. The chance that a person w ith a negative Cologu maria elena test has a colorecta l cancer is [...] ith both Cologuard and colonoscopy. (I kimo Varghese et al, N Eng l J Med 2014;370(14):12 86-1297) The normal valu e (reference rang e) for this assay is negative.COLOGU MARIA ELENA RE-SCREENING RECOMMENDATION: Periodic colorectal canc er screening is an important part of prevent sandeep healthcare for asymptomatic in dividuals at average risk for colorectal canc er. Following a neg ative Cologuard resul t, the [place] [employer] and U.S. Multi- Society Task Force scre ening guidelines anna mmend a Cologuard re-sc reening interval of 3 y ears. References: [place] [employer] [employer] Guideline for Colorectal Cancer Screening: https://www.can cer.org/ca ncer/colon-rect al-cancer/ detection-diagn osis-stagi ng/acs-recommen dations.ht ml.; Jeff DK, Eliceo ryann CR, Kieran MotleyK, Co lorectal Cancer Screenin g: Recommendations for Physicians and Patients from the U.S. Multi-Society T ask Force on Colorectal C ancer Screening , Am J Gastroenterolog y 2017; 112:8440-2638.T EST DESCRIPTION: Co mposite algorithmic gabrielle lysis [...] both Colog uard and colonoscopy. (I kimo Varghese et al, N Eng l J Med [...] be accessed at the following locat ion: www.[email or web address] Systemss.c om/results . Additional de scription of the Cologuar d test process, radha olivas and precautions can be found at [email or web address]. [facility] CenterGfygjvvbIhaofbhuf6761-73-91 14:33:34 Test Item Value Reference Range Interpretation Comments Cologuard result Negative Negative NEGATIVE TE ST RESULT. A reportable (test negative Co loguard result code = 6325) indicates a low likelihood that a colorectal canc er (CRC) or advanced nova noma (adenomatous po lyps with more advanced pre-malignant f eatures) is present. The chance that a person w ith a negative Cologu maria elena test has a colorecta l cancer is [...] ith both Cologuard and colonoscopy. (I kimo Varghese et al, N Eng l J Med 2014;370(14):12 09-1295) The normal valu e (reference rang e) for this assay is negative.COLOGU MARIA ELENA RE-SCREENING RECOMMENDATION: Periodic colorectal canc er screening is an important part of prevent sandeep healthcare for asymptomatic in dividuals at average risk for colorectal canc er. Following a neg ative Cologuard resul t, the [place] [employer] and U.S. Multi- Society Task [...] Screening , Am J Gastroenterolog y 2017; 112:8515-0504.T EST DESCRIPTION: Co mposite algorithmic gabrielle lysis [...] These estimates are d erived from a [facility] cross-sectional screening study of 10,000 individuals at average risk for colore ctal cancer who were screened with both Colog uard and colonoscopy. (Tracy Varghese et al, N Eng l J Med [...] be accessed at the following locat ion: [email or web address] om/results . Additional de scription of the Cologuar d test process, radha olivas and precautions can be found at www.[email or web address]. [facility]IbbkariwGpkktfkyw8828-23-74 14:33:34 Test Item Value Reference Range Interpretation Comments Cologuard result Negative Negative NEGATIVE TE ST RESULT. A reportable (test negative Co loguard result code = 6325) indicates a low likelihood that a colorectal canc er (CRC) or advanced nova noma (adenomatous po lyps with more advanced pre-malignant f eatures) is present. The chance that a person w ith a negative Cologu maria elena test has a colorecta l cancer is [...] screened w ith both Cologuard and colonoscopy. (Tracy Lam al, N Eng l J Med 2014;370(14):12 86-1295) The normal valu e (reference rang e) for this assay is negative.COLOGU MARIA ELENA RE-SCREENING RECOMMENDATION: Periodic colorectal canc er screening is an important part of prevent sandeep healthcare for asymptomatic in dividuals at average risk for colorectal canc er. Following a neg ative Cologuard resul t, the [place] [employer] and U.S. Multi- Society Task Force scre ening guidelines anna mmend a Cologuard re-sc reening interval of 3 y ears. References: [place] [employer] Guideline for Colorectal Cancer Screening: https://www.can cer.org/ca ncer/colon-rect al-cancer/ detection-diagn osis-stagi ng/acs-recommen dations.ht ml.; Jeff REDDY, Eliceo garzon CR, Kieran MotleyK, Co lorectal Cancer Screenin g: Recommendations for Physicians and Patients from the U.S. Multi-Society T ask Force on Colorectal C ancer Screening , Am J Gastroenterolog y 2017; 112:3434-7213.T EST DESCRIPTION: Co mposite algorithmic gabrielle lysis [...] al, N Eng l J Med 2014;370(14):12 86-8154.) Cologuard may p roduce a false negative [...] be accessed at the following locat ion: www.[employer] om/results . Additional de scription of the Cologuar d test process, radha olivas and precautions can be found at www.cologuar dODK Media[employer]y Cabello KpgjqcazAQNX-ZbB-1 (COVID-19) RNA [Presence] in Respiratory specimen by ROCIO with probe qkhdtrcjp5815-54-76 04:20:50 Test Item Value Reference Range Interpretation Comments SARS-CoV-2 (COVID-19) RNA Not detected Not-Detected [Presence] in Respiratory specimen by ROCIO with probe detection (test code = 39220-5) Whether patient is employed in a healthcare setting (test code = 60814-8) Whether the patient has symptoms related to condition of interest (test code = 88554-6) Patient was hospitalized because of this condition (test code = 60605-2) Whether the patient was admitted to intensive care unit (ICU) for condition of interest (test code = 09772-9) Whether patient resides in a congregate care setting (test code = 98139-6) MAMI CARCAMOSARS-CoV-2 (COVID-19) RNA [Presence] in Respiratory specimen by ROCOI with probe txjpeccze9422-84-87 02:08:21 Test Item Value Reference Range Interpretation Comments SARS-CoV-2 (COVID-19) RNA Not detected Not-Detected [Presence] in Respiratory specimen by ROCIO with probe detection (test code = 52340-3) [facility] ([facility]OVID[facility]) RNA [Presence] in Respiratory specimen by ROCIO with probe udezkmddl3624-49-95 02:59:46 Test Item Value Reference Range Interpretation Comments SARS-CoV-2 (COVID-19) RNA Not detected Not-Detected [Presence] in Respiratory specimen by ROCIO with probe detection (test code = 22271-1) [facility]-02 17:35:00 Test Item Value Reference Range Interpretation Comments AGAP (test code = AGAP) 12.1 10.0-20.0 [facility]XvbnprtZQOBXQOGOKSU6389-14-55 17:35:00 Test Item Value Reference Range Interpretation Comments eGFR (test code = eGFR) 73 [facility] CenterCsmfrrtZJGJNOCBCQMG1448-13-48 17:35:00 Test Item Value Reference Range Interpretation Comments Potassium Lvl (test code = Potassium 4.1 3.5-5.1 Lvl) [facility] CenterNtvskuiPHKOUSABUBQZ3915-43-48 17:35:00 Test Item Value Reference Range Interpretation Comments Sodium Lvl (test code = Sodium Lvl) 140 135-145 [facility] CenterZqudyllEULLYTVQADHC9578-16-07 17:35:00 Test Item Value Reference Range Interpretation Comments BUN (test code = BUN) 14 7-22 [facility] CenterHvflentCKTAKOINVFAH3405-23-92 17:35:00 Test Item Value Reference Range Interpretation Comments Creatinine Lvl (test code = Creatinine 1.19 0.50-1.40 Lvl) [facility] CenterCskwtlgIRDDZLZOEDUU1013-43-42 17:35:00 Test Item Value Reference Range Interpretation Comments Glucose Lvl (test code = Glucose Lvl) 120 70-99 [facility] CenterPgziwgcGXAQQNLSIVMP1829-46-98 17:35:00 Test Item Value Reference Range Interpretation Comments Calcium Lvl (test code = Calcium Lvl) 8.7 8.5-10.5 [facility] CenterNilxpgkNCOTWRTQMELF6957-01-74 17:35:00 Test Item Value Reference Range Interpretation Comments CO2 (test code = CO2) 26 24-32 [facility] CenterJqhcikzHKEXXATSTKTV2493-79-38 17:35:00 Test Item Value Reference Range Interpretation Comments Chloride Lvl (test code = Chloride Lvl) 106 95-109 [facility] CenterZzacwqiFUQEQHBEEX4306-50-47 17:35:00 Test Item Value Reference Range Interpretation Comments PTT (test code = PTT) 32.8 s 22.9-35.8 [facility] CenterBbwrauvWFVUDEKVOD4703-20-12 17:35:00 Test Item Value Reference Range Interpretation Comments INR (test code = INR) 1.06 1 0.85-1.17 [facility] CenterWdlwhpmHAOXNCTEKP0688-82-56 17:35:00 Test Item Value Reference Range Interpretation Comments PT (test code = PT) 13.8 s 12.0-14.7 [facility] CenterSegpzlxHEMQTCRXIC3543-44-18 17:35:00 Test Item Value Reference Range Interpretation Comments MPV (test code = MPV) 8.1 7.4-10.4 [facility] CenterHvqfbqnXTIABQRHBO1823-77-91 17:35:00 Test Item Value Reference Range Interpretation Comments MCV (test code = MCV) 86.7 80.0-94.0 [facility] CenterPaloimtGFVPGHHKSL9254-90-95 17:35:00 Test Item Value Reference Range Interpretation Comments Hct (test code = Hct) 44.3 42.0-54.0 [facility] CenterGopmzskYIZTZFNJSX1633-69-71 17:35:00 Test Item Value Reference Range Interpretation Comments Hgb (test code = Hgb) 15.1 14.0-18.0 [facility] CenterZsavfxaIQCXLNJBLY4756-31-45 17:35:00 Test Item Value Reference Range Interpretation Comments WBC (test code = WBC) 7.4 3.7-10.4 [facility] CenterGkzobbiNQWAZTJYSF4394-58-59 17:35:00 Test Item Value Reference Range Interpretation Comments RBC (test code = RBC) 5.10 4.70-6.10 [facility] CenterAgcoraaXHJLKLCFUL9939-74-75 17:35:00 Test Item Value Reference Range Interpretation Comments Platelet (test code = Platelet) 281 133-450 [facility] CenterFspsewoNUUKCQZFMN0668-89-66 17:35:00 Test Item Value Reference Range Interpretation Comments RDW (test code = RDW) 14.2 11.5-14.5 [facility] CenterAfopzyeFUEDRDGTOM1677-80-99 17:35:00 Test Item Value Reference Range Interpretation Comments MCHC (test code = MCHC) 34.1 32.0-36.0 [place] 160478-03-02 17:35:00 Test Item Value Reference Range Interpretation Comments MCH (test code = MCH) 29.5 pg 27.0-31.0 [facility] CenterYoppagxKFGBGFPQDE6881-66-88 17:35:00 Test Item Value Reference Range Interpretation Comments Basophils # (test code 0.1 See_Comment [Aut omated message] The = Basophils #) system which generated this result tra nsmitted reference range : <=0.2. The reference r jay was not used to int erpret this result as normal/abnormal . [facility] CenterJgonzuzLERMRTGEFH4115-04-28 17:35:00 Test Item Value Reference Range Interpretation Comments Eosinophils # (test code 0.3 See_Comment [A utomated message] The = Eosinophils #) system whic h generated this result tra nsmitted reference range : <=0.5. The reference r jay was not used to int erpret this result as normal/abnormal . [facility] CenterVyblxmhHNSHCNYIQR7515-55-61 17:35:00 Test Item Value Reference Range Interpretation Comments Monocytes # (test code 0.5 See_Comment [Aut omated message] The = Monocytes #) system which generated this result tra nsmitted reference range : <=0.8. The reference r jay was not used to int erpret this result as normal/abnormal . [facility] CenterSlcbktyGZLTTXOYZO9093-66-62 17:35:00 Test Item Value Reference Range Interpretation Comments Lymphocytes # (test code = Lymphocytes 2.0 1.0-5.5 #) [facility] CenterGoypxfxVRONGJTMNP0768-93-91 17:35:00 Test Item Value Reference Range Interpretation Comments Segs-Bands # (test code = Segs-Bands #) 4.4 1.5-8.1 [place] [address]-03-02 17:35:00 Test Item Value Reference Range Interpretation Comments Basophils (test code = 1.4 See_Comment [Aut omated message] The Basophils) system which ge nerated this result tra nsmitted reference range : <=1.0. The reference r jay was not used to int erpret this result as normal/abnormal . [facility] CenterVsqschgDHQHBQOTWU2765-98-08 17:35:00 Test Item Value Reference Range Interpretation Comments Eosinophils (test code = 4.2 See_Comment [A utomated message] The Eosinophils) system which ge nerated this result tra nsmitted reference range : <=4.0. The reference r jay was not used to int erpret this result as normal/abnormal . [facility] CenterGacaimtHOMPCKRDDA2328-39-43 17:35:00 Test Item Value Reference Range Interpretation Comments Monocytes (test code = Monocytes) 7.1 2.0-12.0 [facility] CenterLtxuptkPEDIWWNCUJ4882-90-82 17:35:00 Test Item Value Reference Range Interpretation Comments Segs (test code = Segs) 60.0 45.0-75.0 [facility] CenterSvqqusoWFYQRSSATY9062-39-94 17:35:00 Test Item Value Reference Range Interpretation Comments Lymphocytes (test code = Lymphocytes) 27.3 20.0-40.0 [facility] CenterJoknedgTGPIGFBMGFDV0096-77-52 17:35:00 Test Item Value Reference Range Interpretation Comments AGAP (test code = AGAP) 12.1 10.0-20.0 [facility] CenterGdcpjzyAUPVFAJYGNIS6800-28-37 17:35:00 Test Item Value Reference Range Interpretation Comments eGFR (test code = eGFR) 73 [facility] CenterHgtfqmgZTMUNPNIULEZ3078-31-19 17:35:00 Test Item Value Reference Range Interpretation Comments Potassium Lvl (test code = Potassium 4.1 3.5-5.1 Lvl) [facility] CenterBisbtngOQPUQXDTQDDN1240-54-90 17:35:00 Test Item Value Reference Range Interpretation Comments Sodium Lvl (test code = Sodium Lvl) 140 135-145 [facility] CenterSecnugqDNLMWJDKPIML1400-17-33 17:35:00 Test Item Value Reference Range Interpretation Comments BUN (test code = BUN) 14 7-22 [facility] CenterNsrgqwcMHAISOHSISNC9683-00-37 17:35:00 Test Item Value Reference Range Interpretation Comments Creatinine Lvl (test code = Creatinine 1.19 0.50-1.40 Lvl) [facility] CenterKncgonvCSYOHHCJXJDX8340-35-19 17:35:00 Test Item Value Reference Range Interpretation Comments Glucose Lvl (test code = Glucose Lvl) 120 70-99 [facility] CenterTmqdjkwPVSGRLLDXZZN5734-98-94 17:35:00 Test Item Value Reference Range Interpretation Comments Calcium Lvl (test code = Calcium Lvl) 8.7 8.5-10.5 [facility] CenterAqbpwinOVJXVXSTVLIZ4930-39-77 17:35:00 Test Item Value Reference Range Interpretation Comments CO2 (test code = CO2) 26 24-32 [facility] CenterKoccoknZYZDYCYEKUFK2467-48-14 17:35:00 Test Item Value Reference Range Interpretation Comments Chloride Lvl (test code = Chloride Lvl) 106 95-109 [facility] CenterMotflfeMGOWFZKAVZ9990-17-11 17:35:00 Test Item Value Reference Range Interpretation Comments PTT (test code = PTT) 32.8 s 22.9-35.8 [facility] CenterDbsalekFAZMKMJFVE6391-60-11 17:35:00 Test Item Value Reference Range Interpretation Comments INR (test code = INR) 1.06 1 0.85-1.17 [facility] CenterBgoeitaWOFVPGJKYX5488-08-17 17:35:00 Test Item Value Reference Range Interpretation Comments PT (test code = PT) 13.8 s 12.0-14.7 [facility] CenterAkvtwtbKYFWOIRVHJ7561-64-54 17:35:00 Test Item Value Reference Range Interpretation Comments MPV (test code = MPV) 8.1 7.4-10.4 [facility] CenterZltkvkgVSFCEYRVYR2812-39-13 17:35:00 Test Item Value Reference Range Interpretation Comments MCV (test code = MCV) 86.7 80.0-94.0 [facility] CenterHhgaalkZSYYXJGCGM5880-52-97 17:35:00 Test Item Value Reference Range Interpretation Comments Hct (test code = Hct) 44.3 42.0-54.0 [facility] CenterGlwoqueLKOSEGDTKP1850-70-72 17:35:00 Test Item Value Reference Range Interpretation Comments Hgb (test code = Hgb) 15.1 14.0-18.0 [facility] CenterWylqdgxRHDVWPVXSV3838-21-18 17:35:00 Test Item Value Reference Range Interpretation Comments WBC (test code = WBC) 7.4 3.7-10.4 [facility] CenterVaayycwPUQEKBLPOH4409-81-32 17:35:00 Test Item Value Reference Range Interpretation Comments RBC (test code = RBC) 5.10 4.70-6.10 [facility] CenterSvelypwZXLOHELBJK1020-57-14 17:35:00 Test Item Value Reference Range Interpretation Comments Platelet (test code = Platelet) 281 133-450 [facility] CenterOafezevHOELRTOUGX4008-59-50 17:35:00 Test Item Value Reference Range Interpretation Comments RDW (test code = RDW) 14.2 11.5-14.5 [facility] CenterWjxwiyxHJJZVQDLLM4698-83-42 17:35:00 Test Item Value Reference Range Interpretation Comments MCHC (test code = MCHC) 34.1 32.0-36.0 [facility] CenterNswczhhQZCQGCQQHY0953-49-03 17:35:00 Test Item Value Reference Range Interpretation Comments MCH (test code = MCH) 29.5 pg 27.0-31.0 [facility] CenterBahgylwOGBISXDPTB7029-50-75 17:35:00 Test Item Value Reference Range Interpretation Comments Basophils # (test code 0.1 See_Comment [Aut omated message] The = Basophils #) system which generated this result tra nsmitted reference range : <=0.2. The reference r jay was not used to int erpret this result as normal/abnormal . [facility] CenterQujlynhEBKCVXHPVG6610-14-98 17:35:00 Test Item Value Reference Range Interpretation Comments Eosinophils # (test code 0.3 See_Comment [A utomated message] The = Eosinophils #) system whic h generated this result tra nsmitted reference range : <=0.5. The reference r jay was not used to int erpret this result as normal/abnormal . [facility] CenterFbwbvyqGIZHFYBXYD4085-33-55 17:35:00 Test Item Value Reference Range Interpretation Comments Monocytes # (test code 0.5 See_Comment [Aut omated message] The = Monocytes #) system which generated this result tra nsmitted reference range : <=0.8. The reference r jay was not used to int erpret this result as normal/abnormal . [facility] CenterDeqpnqhGZRNRDBWCQ5816-87-31 17:35:00 Test Item Value Reference Range Interpretation Comments Lymphocytes # (test code = Lymphocytes 2.0 1.0-5.5 #) [facility] CenterUnlnbdoXIPCSKXFUV4338-66-80 17:35:00 Test Item Value Reference Range Interpretation Comments Segs-Bands # (test code = Segs-Bands #) 4.4 1.5-8.1 [facility] CenterXtylqqzOAZQABSTLM1921-55-13 17:35:00 Test Item Value Reference Range Interpretation Comments Basophils (test code = 1.4 See_Comment [Aut omated message] The Basophils) system which ge nerated this result tra nsmitted reference range : <=1.0. The reference r jay was not used to int erpret this result as normal/abnormal . [facility] CenterCrnndxzXFZLNWOVQA8172-98-61 17:35:00 Test Item Value Reference Range Interpretation Comments Eosinophils (test code = 4.2 See_Comment [A utomated message] The Eosinophils) system which ge nerated this result tra nsmitted reference range : <=4.0. The reference r jay was not used to int erpret this result as normal/abnormal . [facility] CenterQndiqywGMJLUQSSPN2639-85-07 17:35:00 Test Item Value Reference Range Interpretation Comments Monocytes (test code = Monocytes) 7.1 2.0-12.0 [facility] CenterHzfuvduTPGOABACTQ6919-15-90 17:35:00 Test Item Value Reference Range Interpretation Comments Segs (test code = Segs) 60.0 45.0-75.0 [facility] CenterIrpjqrjZBWQGNJHJY9848-96-57 17:35:00 Test Item Value Reference Range Interpretation Comments Lymphocytes (test code = Lymphocytes) 27.3 20.0-40.0 [facility] CenterYjrjyzsELAXNBXMPRWO2616-08-64 17:35:00 Test Item Value Reference Range Interpretation Comments AGAP (test code = AGAP) 12.1 10.0-20.0 [facility] CenterIkyhqsrOECBZCAEYCQD4760-15-15 17:35:00 Test Item Value Reference Range Interpretation Comments eGFR (test code = eGFR) 73 [facility] CenterWdfkwfbUCEJDQMMDDQX4958-54-00 17:35:00 Test Item Value Reference Range Interpretation Comments Potassium Lvl (test code = Potassium 4.1 3.5-5.1 Lvl) [facility] CenterOoczqurODHAOEGKBMFJ8235-59-00 17:35:00 Test Item Value Reference Range Interpretation Comments Sodium Lvl (test code = Sodium Lvl) 140 135-145 [facility] CenterCoiwkvgDIFFAITPIRME0264-78-41 17:35:00 Test Item Value Reference Range Interpretation Comments BUN (test code = BUN) 14 7-22 [facility] CenterUgeuqwkOTMMVUROKORT5841-46-78 17:35:00 Test Item Value Reference Range Interpretation Comments Creatinine Lvl (test code = Creatinine 1.19 0.50-1.40 Lvl) [facility] CenterObbrjguOCCXDUUOUIRS6594-31-58 17:35:00 Test Item Value Reference Range Interpretation Comments Glucose Lvl (test code = Glucose Lvl) 120 70-99 [facility] CenterWqhklatUYRQOILXPYJH6043-70-90 17:35:00 Test Item Value Reference Range Interpretation Comments Calcium Lvl (test code = Calcium Lvl) 8.7 8.5-10.5 [facility] CenterTjegxdnOMWPKKSXUTUG4635-99-93 17:35:00 Test Item Value Reference Range Interpretation Comments CO2 (test code = CO2) 26 24-32 [facility] CenterWjinqnkRQAACVEWARQB0360-47-74 17:35:00 Test Item Value Reference Range Interpretation Comments Chloride Lvl (test code = Chloride Lvl) 106 95-109 [facility] CenterWqjsexuTDJXLEHHUH9016-14-82 17:35:00 Test Item Value Reference Range Interpretation Comments PTT (test code = PTT) 32.8 s 22.9-35.8 [facility] CenterRctdukwDQXHRAKVJN4307-67-09 17:35:00 Test Item Value Reference Range Interpretation Comments INR (test code = INR) 1.06 1 0.85-1.17 [place] [address]-03-02 17:35:00 Test Item Value Reference Range Interpretation Comments PT (test code = PT) 13.8 s 12.0-14.7 [place] [address]-03-02 17:35:00 Test Item Value Reference Range Interpretation Comments MPV (test code = MPV) 8.1 7.4-10.4 [facility] CenterNgzkguuJAYQZTILKI1002-94-91 17:35:00 Test Item Value Reference Range Interpretation Comments MCV (test code = MCV) 86.7 80.0-94.0 [place] [address]-03-02 17:35:00 Test Item Value Reference Range Interpretation Comments Hct (test code = Hct) 44.3 42.0-54.0 [facility] CenterPipgtokYCUGMVCTMN8940-69-99 17:35:00 Test Item Value Reference Range Interpretation Comments Hgb (test code = Hgb) 15.1 14.0-18.0 [facility] CenterImkewfiLUXZMTYTMA1821-12-65 17:35:00 Test Item Value Reference Range Interpretation Comments WBC (test code = WBC) 7.4 3.7-10.4 [place] [address]-03-02 17:35:00 Test Item Value Reference Range Interpretation Comments RBC (test code = RBC) 5.10 4.70-6.10 [place] [address]-03-02 17:35:00 Test Item Value Reference Range Interpretation Comments Platelet (test code = Platelet) 281 133-450 [facility] CenterAvvcdyoQLKLJVUJWY6721-37-82 17:35:00 Test Item Value Reference Range Interpretation Comments RDW (test code = RDW) 14.2 11.5-14.5 [facility] CenterBgbcorrTOTQEXTAQQ2783-89-19 17:35:00 Test Item Value Reference Range Interpretation Comments MCHC (test code = MCHC) 34.1 32.0-36.0 [facility] CenterEhuiakjDMJPACQKXZ6488-24-51 17:35:00 Test Item Value Reference Range Interpretation Comments MCH (test code = MCH) 29.5 pg 27.0-31.0 [facility] CenterMfxatmhPJRGLLZJOX0154-31-72 17:35:00 Test Item Value Reference Range Interpretation Comments Basophils # (test code 0.1 See_Comment [Aut omated message] The = Basophils #) system which generated this result tra nsmitted reference range : <=0.2. The reference r jay was not used to int erpret this result as normal/abnormal . [facility] CenterQlsmlewTXDMXOMFOJ5856-92-36 17:35:00 Test Item Value Reference Range Interpretation Comments Eosinophils # (test code 0.3 See_Comment [A utomated message] The = Eosinophils #) system whic h generated this result tra nsmitted reference range : <=0.5. The reference r jay was not used to int erpret this result as normal/abnormal . [facility] CenterIuugpzdADKIQISSWZ2146-89-80 17:35:00 Test Item Value Reference Range Interpretation Comments Monocytes # (test code 0.5 See_Comment [Aut omated message] The = Monocytes #) system which generated this result tra nsmitted reference range : <=0.8. The reference r jay was not used to int erpret this result as normal/abnormal . [facility] CenterThzxwycMODWDTDKAO1394-11-84 17:35:00 Test Item Value Reference Range Interpretation Comments Lymphocytes # (test code = Lymphocytes 2.0 1.0-5.5 #) [facility] CenterDrpbhqiYWQYWJKSCE0770-36-33 17:35:00 Test Item Value Reference Range Interpretation Comments Segs-Bands # (test code = Segs-Bands #) 4.4 1.5-8.1 [facility] CenterYqoioprSHPFWIJIFF8750-25-31 17:35:00 Test Item Value Reference Range Interpretation Comments Basophils (test code = 1.4 See_Comment [Aut omated message] The Basophils) system which ge nerated this result tra nsmitted reference range : <=1.0. The reference r jay was not used to int erpret this result as normal/abnormal . [facility] CenterPpllfmhMPJYFOYLJA8725-19-67 17:35:00 Test Item Value Reference Range Interpretation Comments Eosinophils (test code = 4.2 See_Comment [A utomated message] The Eosinophils) system which ge nerated this result tra nsmitted reference range : <=4.0. The reference r jay was not used to int erpret this result as normal/abnormal . [facility] CenterZtbdyrmQTEVXXAJOZ3960-04-72 17:35:00 Test Item Value Reference Range Interpretation Comments Monocytes (test code = Monocytes) 7.1 2.0-12.0 [facility] CenterYgcoxjxXFYPHDARGY5002-91-92 17:35:00 Test Item Value Reference Range Interpretation Comments Segs (test code = Segs) 60.0 45.0-75.0 [facility] CenterOqylhkbYBGVWVIGVE2484-91-16 17:35:00 Test Item Value Reference Range Interpretation Comments Lymphocytes (test code = Lymphocytes) 27.3 20.0-40.0 [facility] metabolic 2000 panel - Serum or Yecagm7079-00-62 08:18:00 Test Item Value Reference Range Interpretation Comments glucose (test code = 157 mg/dL 65-99 H glucose) urea nitrogen (BUN) (test 14 mg/dL 7-25 code = urea nitrogen (BUN)) creatinine (test code = 1.20 mg/dL 0.70-1.25 creatinine) eGFR non-afr. norwegian (test 63 mL/min/1.73m2 > or = 60 code = eGFR non-afr. norwegian) eGFR (test 73 mL/min/1.73m2 > or = [...] (test code = ALT) 35 U/L 9-46 [facility].total in Irczj8017-00-41 08:18:00 Test Item Value Reference Range Interpretation Comments hemoglobin A1C (test code 6.5 % of total HGB <5.7 H = hemoglobin A1C) EAG (mg/dL) (test code = 140 (calc) EAG (mg/dL)) EAG (mmol/L) (test code = 7.7 (calc) EAG (mmol/L)) [facility] - Serum or Plasma 2016-07-27 00:38:00 Test Item Value Reference Range Interpretation Comments glucose (test code = 139 mg/dL 65-99 H glucose) urea nitrogen (BUN) (test 12 mg/dL 7-25 code = urea nitrogen (BUN)) creatinine (test code = 1.13 mg/dL 0.70-1.25 creatinine) eGFR non-afr. norwegian (test 67 mL/min/1.73m2 > or = 60 code = eGFR non-afr. norwegian) eGFR (test 78 mL/min/1.73m2 > or = [...] (test code = ALT) 38 U/L 9-46 [facility]Hemoglobin.total in Bmhlo1216-05-51 00:38:00 Test Item Value Reference Range Interpretation Comments hemoglobin A1C (test code 6.8 % of total HGB <5.7 H = hemoglobin A1C) EAG (mg/dL) (test code = 148 (calc) EAG (mg/dL)) EAG (mmol/L) (test code = 8.2 (calc) EAG (mmol/L)) [facility] - Serum or Plasma 2016-04-25 05:42:00 Test Item Value Reference Range Interpretation Comments glucose (test code = 119 mg/dL 65-99 H glucose) urea nitrogen (BUN) (test 10 mg/dL 7-25 code = urea nitrogen (BUN)) creatinine (test code = 1.23 mg/dL 0.70-1.25 creatinine) eGFR non-afr. norwegian (test 61 mL/min/1.73m2 > or = 60 code = eGFR non-afr. norwegian) eGFR (test 70 mL/min/1.73m2 > or = [...] (test code = ALT) 30 U/L 9-46 [facility] - Serum or Fbvszo5606-71-80 05:42:00 Test Item Value Reference Range Interpretation [...] mg/dL (calc) code = non HDL cholesterol) [facility]Hemoglobin.total in Tzxst5132-00-19 05:42:00 Test Item Value Reference Range Interpretation Comments hemoglobin A1C (test code 7.4 % of total HGB <5.7 H = hemoglobin A1C) EAG (mg/dL) (test code = 166 (calc) EAG (mg/dL)) EAG (mmol/L) (test code = 9.2 (calc) EAG (mmol/L)) [facility]/Hemoglobin.total in Tuara2539-01-72 01:16:00 Test Item Value Reference Range Interpretation Comments hemoglobin A1C (test code 8.0 % of total HGB <5.7 H = hemoglobin A1C) EAG (mg/dL) (test code = 183 (calc) EAG (mg/dL)) EAG (mmol/L) (test code = 10.1 (calc) EAG (mmol/L)) [facility] metabolic 1999 panel - Serum or Plasma 2016-01-31 01:16:00 Test Item Value Reference Range Interpretation Comments glucose (test code = 189 mg/dL 65-99 H glucose) urea nitrogen (BUN) (test 15 mg/dL 7-25 code = urea nitrogen (BUN)) creatinine (test code = 1.17 mg/dL 0.70-1.25 creatinine) eGFR non-afr. norwegian (test 65 mL/min/1.73m2 > or = 60 code = eGFR non-afr. norwegian) eGFR (test 75 mL/min/1.73m2 > or = [...] ALT (test code = ALT) 41 U/L 9-[address] [facility] metabolic 1999 panel - Serum or Plasma 2015-10-20 23:38:00 Test Item Value Reference Range Interpretation Comments glucose (test code = 132 mg/dL 65-99 H glucose) urea nitrogen (BUN) (test 15 mg/dL 7-25 code = urea nitrogen (BUN)) creatinine (test code = 1.45 mg/dL 0.70-1.25 H creatinine) eGFR non-afr. norwegian (test 50 mL/min/1.73m2 > or = 60 L code = eGFR non-afr. norwegian) eGFR (test 58 mL/min/1.73m2 > or = [...] ALT (test code = ALT) 31 U/L 9-46 [facility]Hemoglobin.total in Ocruh0145-74-39 23:38:00 Test Item Value Reference Range Interpretation Comments hemoglobin A1C (test code 6.1 % of total HGB <5.7 H = hemoglobin A1C) EAG (mg/dL) (test code = 128 (calc) EAG (mg/dL)) EAG (mmol/L) (test code = 7.1 (calc) EAG (mmol/L)) [facility] - Serum or [id number] 23:38:00 Test Item Value Reference Range Interpretation [...] mg/dL (calc) code = non HDL cholesterol) [facility] - Serum or Plasma 2015-04-26 00:00:00 Test Item Value Reference Range Interpretation Comments glucose (test code = 122 mg/dL 65-99 H glucose) urea nitrogen (BUN) (test 13 mg/dL 7-25 code = urea nitrogen (BUN)) creatinine (test code = 1.23 mg/dL 0.70-1.25 creatinine) eGFR non-afr. norwegian (test 61 mL/min/1.73m2 > or = 60 code = eGFR non-afr. norwegian) eGFR (test 71 mL/min/1.73m2 > or = [...] (test code = ALT) 39 U/L 9-46 [facility] - Serum or Mpyxhq0958-57-74 00:00:00 Test Item Value Reference Range Interpretation [...] mg/dL (calc) code = non HDL cholesterol) [facility]/Hemoglobin.total in Ussfx8303-24-98 00:00:00 Test Item Value Reference Range Interpretation Comments hemoglobin A1C (test code 6.8 % of total HGB <5.7 H = hemoglobin A1C) EAG (mg/dL) (test code = 148 (calc) EAG (mg/dL)) EAG (mmol/L) (test code = 8.2 (calc) EAG (mmol/L)) [facility] HospitalIlblvsweCEIRZBFCAJSJ0269-23-34 12:31:00 Test Item Value Reference Range Interpretation Comments AGAP (test code = AGAP) 7.3 10.0-20.0 [facility]McpvwuwMOFVLNNAVQAN0398-86-17 12:31:00 Test Item Value Reference Range Interpretation Comments Chloride Lvl (test code = Chloride Lvl) 106 95-109 [facility] CenterOjgbetcLYXAPMUQXNDZ2565-12-93 12:31:00 Test Item Value Reference Range Interpretation Comments CO2 (test code = CO2) 32 24-32 [facility] CenterTktezjjVWOTOHBJCARX6578-96-82 12:31:00 Test Item Value Reference Range Interpretation Comments Potassium Lvl (test code = Potassium 4.3 3.5-5.1 Lvl) [facility] CenterEorkrhhCLJGZACBPEXC2012-56-31 12:31:00 Test Item Value Reference Range Interpretation Comments eGFR (test code = eGFR) 76 [facility] CenterXyjvrktXGTRCBDYGXNF9327-65-18 12:31:00 Test Item Value Reference Range Interpretation Comments Calcium Lvl (test code = Calcium Lvl) 8.4 8.5-10.5 [facility] CenterOctqsraVAJDBYCPXDMA3504-22-29 12:31:00 Test Item Value Reference Range Interpretation Comments BUN (test code = BUN) 13 7-22 [facility] CenterVfjgczrBJEQLSKEIVOL7335-70-07 12:31:00 Test Item Value Reference Range Interpretation Comments Glucose Lvl (test code = Glucose Lvl) 133 70-99 [facility] CenterSbfaphfYLLTEUOQORTJ9821-72-02 12:31:00 Test Item Value Reference Range Interpretation Comments Sodium Lvl (test code = Sodium Lvl) 141 135-145 [facility] CenterIdzrsbzFFHTIXMYJRYL0990-04-07 12:31:00 Test Item Value Reference Range Interpretation Comments Creatinine Lvl (test code = Creatinine 1.16 0.50-1.40 Lvl) [facility] CenterXucofypVVHNMULHTO6460-95-21 12:31:00 Test Item Value Reference Range Interpretation Comments Segs-Bands # (test code = Segs-Bands #) 5.6 1.5-8.1 [facility] CenterOpuuxcaSMLWIHFIDU9203-23-48 12:31:00 Test Item Value Reference Range Interpretation Comments Eosinophils # (test code 0.5 See_Comment [A utomated message] The = Eosinophils #) system whic h generated this result tra nsmitted reference range : <=0.5. The reference r jay was not used to int erpret this result as normal/abnormal . [facility] CenterCurokwkFMUILXOQHA9760-85-74 12:31:00 Test Item Value Reference Range Interpretation Comments Lymphocytes # (test code = Lymphocytes 2.4 1.0-5.5 #) [facility] CenterNannionURCQXNPCUB8619-33-24 12:31:00 Test Item Value Reference Range Interpretation Comments Monocytes # (test code 0.8 See_Comment [Aut omated message] The = Monocytes #) system which generated this result tra nsmitted reference range : <=0.8. The reference r jay was not used to int erpret this result as normal/abnormal . [facility] CenterNjjadppEBINUANGZK6554-05-90 12:31:00 Test Item Value Reference Range Interpretation Comments Basophils # (test code 0.1 See_Comment [Aut omated message] The = Basophils #) system which generated this result tra nsmitted reference range : <=0.2. The reference r jay was not used to int erpret this result as normal/abnormal . [facility] CenterCgfmyuoPPYTRRXLRA9204-09-44 12:31:00 Test Item Value Reference Range Interpretation Comments Basophils (test code = 1.1 See_Comment [Aut omated message] The Basophils) system which ge nerated this result tra nsmitted reference range : <=1.0. The reference r jay was not used to int erpret this result as normal/abnormal . [facility] CenterYdgoejaWPKLBESLNL9174-02-66 12:31:00 Test Item Value Reference Range Interpretation Comments Eosinophils (test code = 5.7 See_Comment [A utomated message] The Eosinophils) system which ge nerated this result tra nsmitted reference range : <=4.0. The reference r jay was not used to int erpret this result as normal/abnormal . [facility] CenterVfkpcizKIWSDZFWEL0528-09-93 12:31:00 Test Item Value Reference Range Interpretation Comments Monocytes (test code = Monocytes) 8.6 2.0-12.0 [facility] CenterWerstrpCNYYAGZHMV8941-77-36 12:31:00 Test Item Value Reference Range Interpretation Comments Segs (test code = Segs) 58.9 45.0-75.0 [facility] CenterShkwqohJQBQNPOGOQ6253-92-55 12:31:00 Test Item Value Reference Range Interpretation Comments Lymphocytes (test code = Lymphocytes) 25.7 20.0-40.0 [facility] CenterTrrspqkWYZWURVVHF8626-15-01 12:31:00 Test Item Value Reference Range Interpretation Comments Platelet (test code = Platelet) 203 133-450 [facility] CenterCftajxxRULYLKCEUB5982-34-12 12:31:00 Test Item Value Reference Range Interpretation Comments MPV (test code = MPV) 8.5 7.4-10.4 [facility] CenterWgopllrZNDZUVLIYD7317-89-42 12:31:00 Test Item Value Reference Range Interpretation Comments Hgb (test code = Hgb) 13.7 14.0-18.0 [facility] CenterQslfcvhASAAASSOYA5696-78-87 12:31:00 Test Item Value Reference Range Interpretation Comments RBC (test code = RBC) 4.41 4.70-6.10 [facility] CenterZgfwumiMLQJARBDDW8338-15-92 12:31:00 Test Item Value Reference Range Interpretation Comments Hct (test code = Hct) 39.1 42.0-54.0 [facility] CenterIlpafbxFTIHBKLHCQ6155-46-40 12:31:00 Test Item Value Reference Range Interpretation Comments MCH (test code = MCH) 31.2 pg 27.0-31.0 [facility] CenterHpqpzioYHLXBYYRVV1009-15-59 12:31:00 Test Item Value Reference Range Interpretation Comments MCV (test code = MCV) 88.7 80.0-94.0 [facility] CenterIiujdalAQFWCAUNUS5965-82-14 12:31:00 Test Item Value Reference Range Interpretation Comments RDW (test code = RDW) 13.0 11.5-14.5 [facility] CenterTthwogjOIZNTTOLAW3218-91-36 12:31:00 Test Item Value Reference Range Interpretation Comments MCHC (test code = MCHC) 35.1 32.0-36.0 [facility] CenterEdcvsiwICRPKJLFYY2170-31-08 12:31:00 Test Item Value Reference Range Interpretation Comments WBC (test code = WBC) 9.4 3.7-10.4 [facility] CenterSplveodVMGBXDUOXABV7473-84-63 12:31:00 Test Item Value Reference Range Interpretation Comments AGAP (test code = AGAP) 7.3 10.0-20.0 [facility] CenterKvxxdwaRHIYFLTYXYQT8784-34-73 12:31:00 Test Item Value Reference Range Interpretation Comments Chloride Lvl (test code = Chloride Lvl) 106 95-109 [facility] CenterVodbzixQHXMZPWNYBVQ3820-30-04 12:31:00 Test Item Value Reference Range Interpretation Comments CO2 (test code = CO2) 32 24-32 [facility] CenterPfcmfarBUFSPTTAVMFA3825-62-14 12:31:00 Test Item Value Reference Range Interpretation Comments Potassium Lvl (test code = Potassium 4.3 3.5-5.1 Lvl) [facility] CenterLvelgfkZUUHGACPZTDH0789-27-33 12:31:00 Test Item Value Reference Range Interpretation Comments eGFR (test code = eGFR) 76 [facility] CenterUzgkekcLHXEFGYOZPEY4023-70-20 12:31:00 Test Item Value Reference Range Interpretation Comments Calcium Lvl (test code = Calcium Lvl) 8.4 8.5-10.5 [facility] CenterPqssfyhFSBRCMNLMVYG9881-70-02 12:31:00 Test Item Value Reference Range Interpretation Comments BUN (test code = BUN) 13 7-22 [facility] CenterNnziyicWFWDUHILRNPS5512-09-57 12:31:00 Test Item Value Reference Range Interpretation Comments Glucose Lvl (test code = Glucose Lvl) 133 70-99 [facility] CenterNwwrzefSNDCTFNKXLTP5098-38-81 12:31:00 Test Item Value Reference Range Interpretation Comments Sodium Lvl (test code = Sodium Lvl) 141 135-145 [facility] CenterNhhcmjdDSWXFRORKFBI4753-37-12 12:31:00 Test Item Value Reference Range Interpretation Comments Creatinine Lvl (test code = Creatinine 1.16 0.50-1.40 Lvl) [facility] CenterHespoykQAEPHSZRKB3845-67-17 12:31:00 Test Item Value Reference Range Interpretation Comments Segs-Bands # (test code = Segs-Bands #) 5.6 1.5-8.1 [facility] CenterJbikaqjSMVJEZQOAR3796-98-96 12:31:00 Test Item Value Reference Range Interpretation Comments Eosinophils # (test code 0.5 See_Comment [A utomated message] The = Eosinophils #) system whic h generated this result tra nsmitted reference range : <=0.5. The reference r jay was not used to int erpret this result as normal/abnormal . [facility] CenterGeyqmkxCNUAIRAZZB0911-55-76 12:31:00 Test Item Value Reference Range Interpretation Comments Lymphocytes # (test code = Lymphocytes 2.4 1.0-5.5 #) [facility] CenterRcdmtygGGBFWLOCIM8560-06-65 12:31:00 Test Item Value Reference Range Interpretation Comments Monocytes # (test code 0.8 See_Comment [Aut omated message] The = Monocytes #) system which generated this result tra nsmitted reference range : <=0.8. The reference r jay was not used to int erpret this result as normal/abnormal . [facility] CenterXpgjteyPFSXGFDQNU5451-09-58 12:31:00 Test Item Value Reference Range Interpretation Comments Basophils # (test code 0.1 See_Comment [Aut omated message] The = Basophils #) system which generated this result tra nsmitted reference range : <=0.2. The reference r jay was not used to int erpret this result as normal/abnormal . [facility] CenterKfklyynZQJMRDUPFH3895-38-99 12:31:00 Test Item Value Reference Range Interpretation Comments Basophils (test code = 1.1 See_Comment [Aut omated message] The Basophils) system which ge nerated this result tra nsmitted reference range : <=1.0. The reference r jay was not used to int erpret this result as normal/abnormal . [facility] CenterOopabsiHJPNGMFKWV2436-75-16 12:31:00 Test Item Value Reference Range Interpretation Comments Eosinophils (test code = 5.7 See_Comment [A utomated message] The Eosinophils) system which ge nerated this result tra nsmitted reference range : <=4.0. The reference r jay was not used to int erpret this result as normal/abnormal . [facility] CenterWllvzxhJMZYZPVSZK8857-79-91 12:31:00 Test Item Value Reference Range Interpretation Comments Monocytes (test code = Monocytes) 8.6 2.0-12.0 [facility] CenterStrpmsgXVYCDXJCYR3155-33-39 12:31:00 Test Item Value Reference Range Interpretation Comments Segs (test code = Segs) 58.9 45.0-75.0 [facility] CenterPhqzkywMDDHFXQKOL7919-52-75 12:31:00 Test Item Value Reference Range Interpretation Comments Lymphocytes (test code = Lymphocytes) 25.7 20.0-40.0 [facility] CenterHggfpqaNKOHTHFHSE5309-24-96 12:31:00 Test Item Value Reference Range Interpretation Comments Platelet (test code = Platelet) 203 133-450 [facility] CenterYnlqevfBHGVFYLDEC0757-85-80 12:31:00 Test Item Value Reference Range Interpretation Comments MPV (test code = MPV) 8.5 7.4-10.4 [facility] CenterGfbgvjjKZLBHKTQAC7004-97-66 12:31:00 Test Item Value Reference Range Interpretation Comments Hgb (test code = Hgb) 13.7 14.0-18.0 [facility] CenterHskzjenGBUCSZJLZK5832-26-84 12:31:00 Test Item Value Reference Range Interpretation Comments RBC (test code = RBC) 4.41 4.70-6.10 [facility] CenterRzpwdhkHPGIXHRDSY7192-77-88 12:31:00 Test Item Value Reference Range Interpretation Comments Hct (test code = Hct) 39.1 42.0-54.0 [facility] CenterVgbbkulLKKQQWCDEZ0260-89-41 12:31:00 Test Item Value Reference Range Interpretation Comments MCH (test code = MCH) 31.2 pg 27.0-31.0 [facility] CenterCjrfwyoDUEJRKQRLB8974-91-54 12:31:00 Test Item Value Reference Range Interpretation Comments MCV (test code = MCV) 88.7 80.0-94.0 [facility] CenterPvmrjynMWJLZTNPIU4596-37-41 12:31:00 Test Item Value Reference Range Interpretation Comments RDW (test code = RDW) 13.0 11.5-14.5 [facility] CenterYirhanuNAEEEQQZGU4462-72-33 12:31:00 Test Item Value Reference Range Interpretation Comments MCHC (test code = MCHC) 35.1 32.0-36.0 [facility] CenterZjptzncAUEZUHOOTU1256-11-08 12:31:00 Test Item Value Reference Range Interpretation Comments WBC (test code = WBC) 9.4 3.7-10.4 [facility] CenterWpjamfaZSFWQUUCURQN4252-47-67 12:31:00 Test Item Value Reference Range Interpretation Comments AGAP (test code = AGAP) 7.3 10.0-20.0 [facility] CenterZmdkbupUIWNHKVTLJMJ9987-11-09 12:31:00 Test Item Value Reference Range Interpretation Comments Chloride Lvl (test code = Chloride Lvl) 106 95-109 [facility] CenterXxdfwfiZKLIAHMDMSZC2669-24-24 12:31:00 Test Item Value Reference Range Interpretation Comments CO2 (test code = CO2) 32 24-32 [facility] CenterJrrumnoODKTKWYIFCHT7684-96-33 12:31:00 Test Item Value Reference Range Interpretation Comments Potassium Lvl (test code = Potassium 4.3 3.5-5.1 Lvl) [facility] CenterWdsewaeJEQLVMHEITBN5205-11-43 12:31:00 Test Item Value Reference Range Interpretation Comments eGFR (test code = eGFR) 76 [facility] CenterYwewnkiPFJFWZJRVEWT8694-23-56 12:31:00 Test Item Value Reference Range Interpretation Comments Calcium Lvl (test code = Calcium Lvl) 8.4 8.5-10.5 [facility] CenterSnmjmnlNGYLRPBLSXLV0804-41-07 12:31:00 Test Item Value Reference Range Interpretation Comments BUN (test code = BUN) 13 7-22 [facility] CenterApfgqgmIURSPZOQQQAJ6756-51-18 12:31:00 Test Item Value Reference Range Interpretation Comments Glucose Lvl (test code = Glucose Lvl) 133 70-99 [facility] CenterIodpxrxJBXASPDEOOAI2883-43-88 12:31:00 Test Item Value Reference Range Interpretation Comments Sodium Lvl (test code = Sodium Lvl) 141 135-145 [facility] CenterPosvowtTPUBIRXNBODM1239-39-19 12:31:00 Test Item Value Reference Range Interpretation Comments Creatinine Lvl (test code = Creatinine 1.16 0.50-1.40 Lvl) [facility] CenterVwlunwkMQMAPRCENN2174-03-66 12:31:00 Test Item Value Reference Range Interpretation Comments Segs-Bands # (test code = Segs-Bands #) 5.6 1.5-8.1 [facility] CenterBlyyyuwHHALFDPJQF8990-52-47 12:31:00 Test Item Value Reference Range Interpretation Comments Eosinophils # (test code 0.5 See_Comment [A utomated message] The = Eosinophils #) system whic h generated this result tra nsmitted reference range : <=0.5. The reference r jay was not used to int erpret this result as normal/abnormal . [facility] CenterIbwjsehXEQERNNEGQ2879-64-25 12:31:00 Test Item Value Reference Range Interpretation Comments Lymphocytes # (test code = Lymphocytes 2.4 1.0-5.5 #) [facility] CenterUpiniwvQWBBXNIGGN6836-18-99 12:31:00 Test Item Value Reference Range Interpretation Comments Monocytes # (test code 0.8 See_Comment [Aut omated message] The = Monocytes #) system which generated this result tra nsmitted reference range : <=0.8. The reference r jay was not used to int erpret this result as normal/abnormal . [facility] CenterZaansexZSZCUVYAGH6764-54-00 12:31:00 Test Item Value Reference Range Interpretation Comments Basophils # (test code 0.1 See_Comment [Aut omated message] The = Basophils #) system which generated this result tra nsmitted reference range : <=0.2. The reference r jay was not used to int erpret this result as normal/abnormal . [facility] CenterUzohuwoBCPKVXORAD0739-10-68 12:31:00 Test Item Value Reference Range Interpretation Comments Basophils (test code = 1.1 See_Comment [Aut omated message] The Basophils) system which ge nerated this result tra nsmitted reference range : <=1.0. The reference r jay was not used to int erpret this result as normal/abnormal . [facility] CenterIcytpavZHVYCUKIQR0398-17-36 12:31:00 Test Item Value Reference Range Interpretation Comments Eosinophils (test code = 5.7 See_Comment [A utomated message] The Eosinophils) system which ge nerated this result tra nsmitted reference range : <=4.0. The reference r jay was not used to int erpret this result as normal/abnormal . [facility] CenterOxwhtroLYIBAHGJMQ5325-17-04 12:31:00 Test Item Value Reference Range Interpretation Comments Monocytes (test code = Monocytes) 8.6 2.0-12.0 [place] 160475-12-19 12:31:00 Test Item Value Reference Range Interpretation Comments Segs (test code = Segs) 58.9 45.0-75.0 [facility] CenterFocnuvmQDTBILDVVY3001-26-73 12:31:00 Test Item Value Reference Range Interpretation Comments Lymphocytes (test code = Lymphocytes) 25.7 20.0-40.0 [facility] CenterLwmqamhYJQVGRKZVO7313-08-89 12:31:00 Test Item Value Reference Range Interpretation Comments Platelet (test code = Platelet) 203 133-450 [facility] CenterKsxaqteMKAPFTKNEA6454-92-19 12:31:00 Test Item Value Reference Range Interpretation Comments MPV (test code = MPV) 8.5 7.4-10.4 [facility] CenterRchjoweQDSMTSHLQO6082-75-80 12:31:00 Test Item Value Reference Range Interpretation Comments Hgb (test code = Hgb) 13.7 14.0-18.0 [facility] CenterGqjoqtxSRZSNTTJQZ2353-12-69 12:31:00 Test Item Value Reference Range Interpretation Comments RBC (test code = RBC) 4.41 4.70-6.10 [facility] CenterUtshoiqSYRPKFJGEC3731-61-56 12:31:00 Test Item Value Reference Range Interpretation Comments Hct (test code = Hct) 39.1 42.0-54.0 [facility] CenterNikxjohRKMODLFUDK5168-93-73 12:31:00 Test Item Value Reference Range Interpretation Comments MCH (test code = MCH) 31.2 pg 27.0-31.0 [facility] CenterYgoezotHCEHDHCZHN5548-28-25 12:31:00 Test Item Value Reference Range Interpretation Comments MCV (test code = MCV) 88.7 80.0-94.0 [facility] CenterWcwgflwDNCCWCUXDG7030-86-32 12:31:00 Test Item Value Reference Range Interpretation Comments RDW (test code = RDW) 13.0 11.5-14.5 [facility] CenterZoydvssWNHMLNWNNZ0719-32-88 12:31:00 Test Item Value Reference Range Interpretation Comments MCHC (test code = MCHC) 35.1 32.0-36.0 [facility] CenterJyrtwoaZCFWMNPNMM0796-11-77 12:31:00 Test Item Value Reference Range Interpretation Comments WBC (test code = WBC) 9.4 3.7-10.4 [facility] CenterBqlzefrEUXIVZFHSI4767-57-50 12:59:00 Test Item Value Reference Range Interpretation Comments Hgb (test code = Hgb) 13.7 14.0-18.0 [facility] CenterCczispiQUBJSXRINN3657-24-20 12:59:00 Test Item Value Reference Range Interpretation Comments RBC (test code = RBC) 4.39 4.70-6.10 [facility] CenterYtxjqllRJQBMRFXUV3294-63-70 12:59:00 Test Item Value Reference Range Interpretation Comments Platelet (test code = Platelet) 194 133-450 [facility] CenterRvulmmhBRDZEDVEWD3690-45-05 12:59:00 Test Item Value Reference Range Interpretation Comments RDW (test code = RDW) 12.8 11.5-14.5 [facility] CenterMdppcznCPMNZOFVSD4471-15-75 12:59:00 Test Item Value Reference Range Interpretation Comments MPV (test code = MPV) 8.7 7.4-10.4 [facility] CenterQuvgirfQXKFAUZPYK3318-90-69 12:59:00 Test Item Value Reference Range Interpretation Comments Basophils # (test code 0.1 See_Comment [Aut omated message] The = Basophils #) system which generated this result tra nsmitted reference range : <=0.2. The reference r jay was not used to int erpret this result as normal/abnormal . [facility] CenterDehiquxDMOKYKTOOS9769-49-03 12:59:00 Test Item Value Reference Range Interpretation Comments Monocytes # (test code 0.7 See_Comment [Aut omated message] The = Monocytes #) system which generated this result tra nsmitted reference range : <=0.8. The reference r jay was not used to int erpret this result as normal/abnormal . [facility] CenterNodgcnaZZMJWLCYXS7677-74-23 12:59:00 Test Item Value Reference Range Interpretation Comments Eosinophils # (test code 0.5 See_Comment [A utomated message] The = Eosinophils #) system whic h generated this result tra nsmitted reference range : <=0.5. The reference r jay was not used to int erpret this result as normal/abnormal . [facility] CenterBhcbopeJMKMCSDICO7743-74-78 12:59:00 Test Item Value Reference Range Interpretation Comments Segs (test code = Segs) 60.0 45.0-75.0 [facility] CenterZapaxslESQGZLTVMU4440-21-53 12:59:00 Test Item Value Reference Range Interpretation Comments Lymphocytes # (test code = Lymphocytes 2.1 1.0-5.5 #) [facility] CenterJyefgmyJPXUWAWGOM5948-18-12 12:59:00 Test Item Value Reference Range Interpretation Comments Segs-Bands # (test code = Segs-Bands #) 5.2 1.5-8.1 [facility] CenterLpmfqjkCVTLWBKLXV1801-65-59 12:59:00 Test Item Value Reference Range Interpretation Comments Basophils (test code = 1.6 See_Comment [Aut omated message] The Basophils) system which ge nerated this result tra nsmitted reference range : <=1.0. The reference r jay was not used to int erpret this result as normal/abnormal . [facility] CenterQvxhqdnBGFOUFICXC5048-53-92 12:59:00 Test Item Value Reference Range Interpretation Comments Eosinophils (test code = 5.7 See_Comment [A utomated message] The Eosinophils) system which ge nerated this result tra nsmitted reference range : <=4.0. The reference r jay was not used to int erpret this result as normal/abnormal . [facility] CenterEgpuyzfBRNYQQGRIW2862-31-16 12:59:00 Test Item Value Reference Range Interpretation Comments Lymphocytes (test code = Lymphocytes) 24.2 20.0-40.0 [facility] CenterVofwxuaLEWGAIKBXT7582-94-12 12:59:00 Test Item Value Reference Range Interpretation Comments Monocytes (test code = Monocytes) 8.5 2.0-12.0 [facility] CenterGxqfdryHWTQVDNQPCQM1093-17-60 12:59:00 Test Item Value Reference Range Interpretation Comments AGAP (test code = AGAP) 9.3 10.0-20.0 [facility] CenterEtadkitVBPOSMRRPECS2212-63-51 12:59:00 Test Item Value Reference Range Interpretation Comments eGFR (test code = eGFR) 74 [facility] CenterNfpelyeSWIUYQDHWGCA5164-61-36 12:59:00 Test Item Value Reference Range Interpretation Comments Chloride Lvl (test code = Chloride Lvl) 106 95-109 [facility] CenterBixtcypBSVSNCBGYWHL7798-83-61 12:59:00 Test Item Value Reference Range Interpretation Comments Potassium Lvl (test code = Potassium 4.3 3.5-5.1 Lvl) [facility] CenterEzehgalHDCGUBNGDZET4906-24-84 12:59:00 Test Item Value Reference Range Interpretation Comments Calcium Lvl (test code = Calcium Lvl) 8.2 8.5-10.5 [facility] CenterIofvbugCQYWEVPIHHUY9678-45-87 12:59:00 Test Item Value Reference Range Interpretation Comments CO2 (test code = CO2) 28 24-32 [facility] CenterFhsmeazVSIKNPDRLSWK9503-94-11 12:59:00 Test Item Value Reference Range Interpretation Comments Creatinine Lvl (test code = Creatinine 1.18 0.50-1.40 Lvl) [facility] CenterKaoqxmxWALULOOBWNOV0070-76-73 12:59:00 Test Item Value Reference Range Interpretation Comments Glucose Lvl (test code = Glucose Lvl) 135 70-99 [facility] CenterIkcpxhwEKWFWBSHHZOW6856-10-16 12:59:00 Test Item Value Reference Range Interpretation Comments Sodium Lvl (test code = Sodium Lvl) 139 135-145 [facility] CenterJpeunazZEBNELWHGPGZ2492-87-70 12:59:00 Test Item Value Reference Range Interpretation Comments BUN (test code = BUN) 13 7-22 [facility] CenterSklnrciMITIGRCWHM2929-86-05 12:59:00 Test Item Value Reference Range Interpretation Comments MCH (test code = MCH) 31.1 pg 27.0-31.0 [facility] CenterHzxgkfkUZHSWRHRGC3234-86-00 12:59:00 Test Item Value Reference Range Interpretation Comments MCV (test code = MCV) 88.4 80.0-94.0 [facility] CenterDloziopJWFYGPXUBE2326-24-67 12:59:00 Test Item Value Reference Range Interpretation Comments Hct (test code = Hct) 38.8 42.0-54.0 [facility] CenterPjoljrqCPRVJIDBCF4913-52-05 12:59:00 Test Item Value Reference Range Interpretation Comments MCHC (test code = MCHC) 35.2 32.0-36.0 [facility] CenterIsgxaliITYJGCAMOV1627-96-76 12:59:00 Test Item Value Reference Range Interpretation Comments WBC (test code = WBC) 8.6 3.7-10.4 [facility] CenterKdjycwxPOMHWBNJEP4508-77-54 12:59:00 Test Item Value Reference Range Interpretation Comments Hgb (test code = Hgb) 13.7 14.0-18.0 [facility] CenterDdwkcofIGXTIDAHEG1100-77-50 12:59:00 Test Item Value Reference Range Interpretation Comments RBC (test code = RBC) 4.39 4.70-6.10 [facility] CenterUgcoipaETIHTRUBQM5049-98-96 12:59:00 Test Item Value Reference Range Interpretation Comments Platelet (test code = Platelet) 194 133-450 [facility] CenterWpfxtqvMPCVHTYKHL1421-65-18 12:59:00 Test Item Value Reference Range Interpretation Comments RDW (test code = RDW) 12.8 11.5-14.5 [facility] CenterMrqpfdtQPMWFHHZKL1712-22-90 12:59:00 Test Item Value Reference Range Interpretation Comments MPV (test code = MPV) 8.7 7.4-10.4 [facility] CenterPejljzvGQFJKAKWYX5021-71-52 12:59:00 Test Item Value Reference Range Interpretation Comments Basophils # (test code 0.1 See_Comment [Aut omated message] The = Basophils #) system which generated this result tra nsmitted reference range : <=0.2. The reference r jay was not used to int erpret this result as normal/abnormal . [facility] CenterGqervetDWGXGACYDK9904-34-67 12:59:00 Test Item Value Reference Range Interpretation Comments Monocytes # (test code 0.7 See_Comment [Aut omated message] The = Monocytes #) system which generated this result tra nsmitted reference range : <=0.8. The reference r jay was not used to int erpret this result as normal/abnormal . [facility] CenterYhxaogeZJYLKQYUEJ1827-45-04 12:59:00 Test Item Value Reference Range Interpretation Comments Eosinophils # (test code 0.5 See_Comment [A utomated message] The = Eosinophils #) system whic h generated this result tra nsmitted reference range : <=0.5. The reference r jay was not used to int erpret this result as normal/abnormal . [facility] CenterQmaxxleRMNPZXUDDQ9411-33-81 12:59:00 Test Item Value Reference Range Interpretation Comments Segs (test code = Segs) 60.0 45.0-75.0 [facility] CenterXwatzcjNZQOPGPMSM7434-51-41 12:59:00 Test Item Value Reference Range Interpretation Comments Lymphocytes # (test code = Lymphocytes 2.1 1.0-5.5 #) [facility] CenterWodqbaqIAMLTLBBQI1929-03-34 12:59:00 Test Item Value Reference Range Interpretation Comments Segs-Bands # (test code = Segs-Bands #) 5.2 1.5-8.1 [facility] CenterNfyhxsfMGCXZAANZE0536-63-39 12:59:00 Test Item Value Reference Range Interpretation Comments Basophils (test code = 1.6 See_Comment [Aut omated message] The Basophils) system which ge nerated this result tra nsmitted reference range : <=1.0. The reference r jay was not used to int erpret this result as normal/abnormal . [facility] CenterLmwevbcGVNIRHWDLH0090-82-83 12:59:00 Test Item Value Reference Range Interpretation Comments Eosinophils (test code = 5.7 See_Comment [A utomated message] The Eosinophils) system which ge nerated this result tra nsmitted reference range : <=4.0. The reference r jay was not used to int erpret this result as normal/abnormal . [facility] CenterFnjdmyoCROUTCQMOJ7537-01-09 12:59:00 Test Item Value Reference Range Interpretation Comments Lymphocytes (test code = Lymphocytes) 24.2 20.0-40.0 [facility] CenterQwbycogWCETUQIAPD8532-04-19 12:59:00 Test Item Value Reference Range Interpretation Comments Monocytes (test code = Monocytes) 8.5 2.0-12.0 [facility] CenterJptdtutJGOTTQRJMRJA4226-84-37 12:59:00 Test Item Value Reference Range Interpretation Comments AGAP (test code = AGAP) 9.3 10.0-20.0 [facility] CenterFwzqipwBTGPWEIQHEYS3834-86-39 12:59:00 Test Item Value Reference Range Interpretation Comments eGFR (test code = eGFR) 74 [facility] CenterOqfbjdjESWCWCLDNVRX5447-85-16 12:59:00 Test Item Value Reference Range Interpretation Comments Chloride Lvl (test code = Chloride Lvl) 106 95-109 [facility] CenterVogcbniVACKIYIIWWDH3550-08-30 12:59:00 Test Item Value Reference Range Interpretation Comments Potassium Lvl (test code = Potassium 4.3 3.5-5.1 Lvl) [facility] CenterOzytarwYSGIYVBLFQWK0543-56-03 12:59:00 Test Item Value Reference Range Interpretation Comments Calcium Lvl (test code = Calcium Lvl) 8.2 8.5-10.5 [facility] CenterAzzxfzgFXXNWOEPAJFX2857-15-01 12:59:00 Test Item Value Reference Range Interpretation Comments CO2 (test code = CO2) 28 24-32 [facility] CenterYjwjrpxJAMTGRKAAKIE9553-90-69 12:59:00 Test Item Value Reference Range Interpretation Comments Creatinine Lvl (test code = Creatinine 1.18 0.50-1.40 Lvl) [facility] CenterCrsdgkvNQUWNZMCDQWJ4893-41-62 12:59:00 Test Item Value Reference Range Interpretation Comments Glucose Lvl (test code = Glucose Lvl) 135 70-99 [facility] CenterNmulqmwVRXWDVNXSXKJ0094-43-45 12:59:00 Test Item Value Reference Range Interpretation Comments Sodium Lvl (test code = Sodium Lvl) 139 135-145 [facility] CenterZixyypfGEFUJGQJUCQV0429-20-51 12:59:00 Test Item Value Reference Range Interpretation Comments BUN (test code = BUN) 13 7-22 [facility] CenterQwcacvuXWOZLKTKLH9851-26-69 12:59:00 Test Item Value Reference Range Interpretation Comments MCH (test code = MCH) 31.1 pg 27.0-31.0 [facility] CenterPfehclyTLDGZEBHPN8081-55-77 12:59:00 Test Item Value Reference Range Interpretation Comments MCV (test code = MCV) 88.4 80.0-94.0 [facility] CenterCkvicayACTJLRAHEU2998-42-70 12:59:00 Test Item Value Reference Range Interpretation Comments Hct (test code = Hct) 38.8 42.0-54.0 [facility] CenterQiddixzLWHFORLDKX6828-73-96 12:59:00 Test Item Value Reference Range Interpretation Comments MCHC (test code = MCHC) 35.2 32.0-36.0 [facility] CenterFtjmlovFFWTQMGNXZ9414-85-24 12:59:00 Test Item Value Reference Range Interpretation Comments WBC (test code = WBC) 8.6 3.7-10.4 [facility] CenterMuydwgwOKDSKIXITB1334-46-83 12:59:00 Test Item Value Reference Range Interpretation Comments Hgb (test code = Hgb) 13.7 14.0-18.0 [facility] CenterNrrspdoMESTLSHETX0866-69-09 12:59:00 Test Item Value Reference Range Interpretation Comments RBC (test code = RBC) 4.39 4.70-6.10 [facility] CenterSgcuybqHTEMIPJATP1878-21-52 12:59:00 Test Item Value Reference Range Interpretation Comments Platelet (test code = Platelet) 194 133-450 [facility] CenterDkiojzqSYJSINIMST8854-03-71 12:59:00 Test Item Value Reference Range Interpretation Comments RDW (test code = RDW) 12.8 11.5-14.5 [facility] CenterAbexghlPKOEIELGRI2214-91-05 12:59:00 Test Item Value Reference Range Interpretation Comments MPV (test code = MPV) 8.7 7.4-10.4 [facility] CenterTserrnzMZFWSMSJOQ4646-96-86 12:59:00 Test Item Value Reference Range Interpretation Comments Basophils # (test code 0.1 See_Comment [Aut omated message] The = Basophils #) system which generated this result tra nsmitted reference range : <=0.2. The reference r jay was not used to int erpret this result as normal/abnormal . [facility] CenterAgdxzrnITXCSPTMGV2572-97-59 12:59:00 Test Item Value Reference Range Interpretation Comments Monocytes # (test code 0.7 See_Comment [Aut omated message] The = Monocytes #) system which generated this result tra nsmitted reference range : <=0.8. The reference r jay was not used to int erpret this result as normal/abnormal . [facility] CenterMbbiupwLJZHERVGVB1686-30-61 12:59:00 Test Item Value Reference Range Interpretation Comments Eosinophils # (test code 0.5 See_Comment [A utomated message] The = Eosinophils #) system whic h generated this result tra nsmitted reference range : <=0.5. The reference r jay was not used to int erpret this result as normal/abnormal . [facility] CenterHqcqzvhPAZBRNUXQF9838-77-07 12:59:00 Test Item Value Reference Range Interpretation Comments Segs (test code = Segs) 60.0 45.0-75.0 [facility] CenterTcgomvsBYVLHDKSMG4343-99-30 12:59:00 Test Item Value Reference Range Interpretation Comments Lymphocytes # (test code = Lymphocytes 2.1 1.0-5.5 #) [facility] CenterAjiariyWVYOUGOIJG4190-86-62 12:59:00 Test Item Value Reference Range Interpretation Comments Segs-Bands # (test code = Segs-Bands #) 5.2 1.5-8.1 [facility] CenterIbntmvqMYIMDPNXEV7103-69-63 12:59:00 Test Item Value Reference Range Interpretation Comments Basophils (test code = 1.6 See_Comment [Aut omated message] The Basophils) system which ge nerated this result tra nsmitted reference range : <=1.0. The reference r jay was not used to int erpret this result as normal/abnormal . [facility] CenterFjyurdxCMRGOQZKGR8653-30-08 12:59:00 Test Item Value Reference Range Interpretation Comments Eosinophils (test code = 5.7 See_Comment [A utomated message] The Eosinophils) system which ge nerated this result tra nsmitted reference range : <=4.0. The reference r jay was not used to int erpret this result as normal/abnormal . [facility] CenterLkncnpnKAOXPGHIYQ4540-20-76 12:59:00 Test Item Value Reference Range Interpretation Comments Lymphocytes (test code = Lymphocytes) 24.2 20.0-40.0 [facility] CenterZjxvjhbDGFTYWDWZI2323-39-42 12:59:00 Test Item Value Reference Range Interpretation Comments Monocytes (test code = Monocytes) 8.5 2.0-12.0 [facility] CenterQmnxutfUSWBXSZRMYPX6456-96-97 12:59:00 Test Item Value Reference Range Interpretation Comments AGAP (test code = AGAP) 9.3 10.0-20.0 [facility] CenterQziyteaRLHWTEIDKHKY8238-80-80 12:59:00 Test Item Value Reference Range Interpretation Comments eGFR (test code = eGFR) 74 [facility] CenterTbgeymqVKSPNOBEMHHM2387-26-24 12:59:00 Test Item Value Reference Range Interpretation Comments Chloride Lvl (test code = Chloride Lvl) 106 95-109 [facility] CenterSvnmvgeSWRYCDPGFHLZ7555-54-27 12:59:00 Test Item Value Reference Range Interpretation Comments Potassium Lvl (test code = Potassium 4.3 3.5-5.1 Lvl) [facility] CenterOoggcmdCIWWBLJAERKR9371-19-28 12:59:00 Test Item Value Reference Range Interpretation Comments Calcium Lvl (test code = Calcium Lvl) 8.2 8.5-10.5 [facility] CenterNodxkqbSVWSCCYLSZOF7071-21-69 12:59:00 Test Item Value Reference Range Interpretation Comments CO2 (test code = CO2) 28 24-32 [facility] CenterTolaplzLTNHRQRVQVSK5063-46-62 12:59:00 Test Item Value Reference Range Interpretation Comments Creatinine Lvl (test code = Creatinine 1.18 0.50-1.40 Lvl) [facility] CenterSsorhgtJPNHAXIKVZIA8269-43-63 12:59:00 Test Item Value Reference Range Interpretation Comments Glucose Lvl (test code = Glucose Lvl) 135 70-99 [facility] CenterBglzvuwRLIGWRRZRGFB0877-00-17 12:59:00 Test Item Value Reference Range Interpretation Comments Sodium Lvl (test code = Sodium Lvl) 139 135-145 [facility] CenterUjztrrzBWTDQWTBYSMF3436-11-85 12:59:00 Test Item Value Reference Range Interpretation Comments BUN (test code = BUN) 13 7-22 [facility]oacyLWCLNWGWNW1139-34-52 12:59:00 Test Item Value Reference Range Interpretation Comments MCH (test code = MCH) 31.1 pg 27.0-31.0 [facility]oksliYDVEAEWQKN1507-86-99 12:59:00 Test Item Value Reference Range Interpretation Comments MCV (test code = MCV) 88.4 80.0-94.0 [facility]WemhyfsBVHSTQWKTP5788-88-58 12:59:00 Test Item Value Reference Range Interpretation Comments Hct (test code = Hct) 38.8 42.0-54.0 [facility] HospitalSawonuvLOVQGKXTPD3849-42-70 12:59:00 Test Item Value Reference Range Interpretation Comments MCHC (test code = MCHC) 35.2 32.0-36.0 [facility] HospitalNnmdqocBFKWMFZLVI5544-33-33 12:59:00 Test Item Value Reference Range Interpretation Comments WBC (test code = WBC) 8.6 3.7-10.4 [facility] HospitalGjtehuyQFMRHZJVWA3789-40-08 02:24:00 Test Item Value Reference Range Interpretation Comments [employer] TLD (test code = V[employer] TLD) 1830 [facility] HospitalDnxetbbTMZIMRXYIJ7398-67-89 02:24:00 Test Item Value Reference Range Interpretation Comments Vanco Pk (test code = Vanco Pk) 19.4 [facility] HospitalHwcjdsxIMGYWLIICS2317-16-41 02:24:00 Test Item Value Reference Range Interpretation Comments [employer] TLD (test code = V[employer] P[employer] TLD) 183 [facility] HospitalZejkcnrMTPODTPMWM7870-64-25 02:24:00 Test Item Value Reference Range Interpretation Comments Vanco Pk (test code = Vanco Pk) 19.4 [facility] CenterKqgerihNGWJQKBMKY5796-47-28 02:24:00 Test Item Value Reference Range Interpretation Comments [employer] TLD (test code = V[employer] TLD) [address] [facility]BrymymrUVJZVCTTUW3170-56-31 02:24:00 Test Item Value Reference Range Interpretation Comments Vanco Pk (test code = Vanco Pk) 19.4 [facility] 22:20:00 Test Item Value Reference Range Interpretation Comments Vanco Tr TND (test code = Vanco Tr TND) [address] [place] [id number] 22:20:00 Test Item Value Reference Range Interpretation Comments Vanco Tr (test code = Vanco Tr) 8.6 [place] [id number] 22:20:00 Test Item Value Reference Range Interpretation Comments Vanco Tr TND (test code = Vanco Tr TND) [address] [place] [id number] 22:20:00 Test Item Value Reference Range Interpretation Comments Vanco Tr (test code = Vanco Tr) 8.6 [place] [id number] 22:20:00 Test Item Value Reference Range Interpretation Comments Vanco Tr TND (test code = Vanco Tr TND) [address] [place] [id number] 22:20:00 Test Item Value Reference Range Interpretation Comments Vanco Tr (test code = Vanco Tr) 8.6 [facility]2015-12-17 10:43:00 Test Item Value Reference Range Interpretation Comments Calcium Lvl (test code = Calcium Lvl) 8.2 8.5-10.5 [facility]2015-12-17 10:43:00 Test Item Value Reference Range Interpretation Comments Potassium Lvl (test code = Potassium 3.9 3.5-5.1 Lvl) [facility]2015-12-17 10:43:00 Test Item Value Reference Range Interpretation Comments Sodium Lvl (test code = Sodium Lvl) 141 135-145 [facility]2015-12-17 10:43:00 Test Item Value Reference Range Interpretation Comments Creatinine Lvl (test code = Creatinine 1.22 0.50-1.40 Lvl) [facility]2015-12-17 10:43:00 Test Item Value Reference Range Interpretation Comments Chloride Lvl (test code = Chloride Lvl) 105 95-109 [facility]2015-12-17 10:43:00 Test Item Value Reference Range Interpretation Comments CO2 (test code = CO2) 28 24-32 [facility]2015-12-17 10:43:00 Test Item Value Reference Range Interpretation Comments Glucose Lvl (test code = Glucose Lvl) 154 70-99 [facility]2015-12-17 10:43:00 Test Item Value Reference Range Interpretation Comments BUN (test code = BUN) 20 7-22 [facility]2015-12-17 10:43:00 Test Item Value Reference Range Interpretation Comments eGFR (test code = eGFR) 71 [facility]2015-12-17 10:43:00 Test Item Value Reference Range Interpretation Comments AGAP (test code = AGAP) 11.9 10.0-20.0 [facility] CenterRuimwmdCHMKZQTHPJ6949-34-99 10:43:00 Test Item Value Reference Range Interpretation Comments Segs (test code = Segs) 54.0 45.0-75.0 [facility] CenterPsdyongUBKRXGQPML2092-81-34 10:43:00 Test Item Value Reference Range Interpretation Comments Lymphocytes (test code = Lymphocytes) 30.3 20.0-40.0 [facility] CenterLtuufchHEYGQDPEJZ3749-00-53 10:43:00 Test Item Value Reference Range Interpretation Comments Eosinophils (test code = 6.2 See_Comment [A utomated message] The Eosinophils) system which ge nerated this result tra nsmitted reference range : <=4.0. The reference r jay was not used to int erpret this result as normal/abnormal . [facility] CenterZilbavoDYVIBAQCSM1636-20-23 10:43:00 Test Item Value Reference Range Interpretation Comments Lymphocytes # (test code = Lymphocytes 2.4 1.0-5.5 #) [facility] CenterCpjdffsVFSDVUZZCF7304-42-35 10:43:00 Test Item Value Reference Range Interpretation Comments Basophils (test code = 1.2 See_Comment [Aut omated message] The Basophils) system which ge nerated this result tra nsmitted reference range : <=1.0. The reference r jay was not used to int erpret this result as normal/abnormal . [facility] CenterAkzwrxzOCQDJYIAUU2175-71-30 10:43:00 Test Item Value Reference Range Interpretation Comments Monocytes (test code = Monocytes) 8.3 2.0-12.0 [facility] CenterTzvibkbSUBJRAVJRH1409-40-52 10:43:00 Test Item Value Reference Range Interpretation Comments Segs-Bands # (test code = Segs-Bands #) 4.3 1.5-8.1 [facility] CenterZazdtosPKDKDBAMAU2909-59-58 10:43:00 Test Item Value Reference Range Interpretation Comments Basophils # (test code 0.1 See_Comment [Aut omated message] The = Basophils #) system which generated this result tra nsmitted reference range : <=0.2. The reference r jay was not used to int erpret this result as normal/abnormal . [facility] CenterGijrkwcNFXDAKMIRB9916-15-11 10:43:00 Test Item Value Reference Range Interpretation Comments Eosinophils # (test code 0.5 See_Comment [A utomated message] The = Eosinophils #) system whic h generated this result tra nsmitted reference range : <=0.5. The reference r jay was not used to int erpret this result as normal/abnormal . [facility] CenterRzdinduSYJLNBXMMV3842-87-42 10:43:00 Test Item Value Reference Range Interpretation Comments Monocytes # (test code 0.7 See_Comment [Aut omated message] The = Monocytes #) system which generated this result tra nsmitted reference range : <=0.8. The reference r jay was not used to int erpret this result as normal/abnormal . [facility] CenterMymrxwjIUJPDCZZYS8208-81-13 10:43:00 Test Item Value Reference Range Interpretation Comments RDW (test code = RDW) 12.9 11.5-14.5 [facility] CenterHqlxgbaWKADAIIBDD5185-89-10 10:43:00 Test Item Value Reference Range Interpretation Comments MCHC (test code = MCHC) 34.7 32.0-36.0 [facility] CenterRoqleufRTVXHHOMRG4208-47-84 10:43:00 Test Item Value Reference Range Interpretation Comments MPV (test code = MPV) 9.1 7.4-10.4 [facility] CenterLsdfonoTUBYQBTYPT4205-09-80 10:43:00 Test Item Value Reference Range Interpretation Comments Platelet (test code = Platelet) 214 133-450 [facility] CenterVtlntonHLRSOQKFAC8291-48-85 10:43:00 Test Item Value Reference Range Interpretation Comments Hgb (test code = Hgb) 14.1 14.0-18.0 [facility] CenterZinqokvUEBUHQKHSE5841-05-88 10:43:00 Test Item Value Reference Range Interpretation Comments MCV (test code = MCV) 89.2 80.0-94.0 [facility] CenterDlgpaapINEWRITAKH9152-51-62 10:43:00 Test Item Value Reference Range Interpretation Comments Hct (test code = Hct) 40.8 42.0-54.0 [facility] CenterMjnmutzJQBMAQJDKG2590-38-84 10:43:00 Test Item Value Reference Range Interpretation Comments MCH (test code = MCH) 31.0 pg 27.0-31.0 [facility] CenterSytnxhwJQKONDGIVG9354-74-58 10:43:00 Test Item Value Reference Range Interpretation Comments WBC (test code = WBC) 7.9 3.7-10.4 [facility] CenterKnykuoqZZJWYXPUJX0237-08-36 10:43:00 Test Item Value Reference Range Interpretation Comments RBC (test code = RBC) 4.57 4.70-6.10 [facility] CenterWdbdoeyCCTTZKTZVR6570-71-70 10:43:00 Test Item Value Reference Range Interpretation Comments INR (test code = INR) 1.06 0.85-1.17 [facility] CenterJhexgykJOJHTNFBKY9821-67-72 10:43:00 Test Item Value Reference Range Interpretation Comments PTT (test code = PTT) 32.3 s 22.9-35.8 [facility] CenterIgqpfutOGTDWFKRYC1068-01-04 10:43:00 Test Item Value Reference Range Interpretation Comments PT (test code = PT) 14.1 s 12.0-14.7 [facility]2015-12-17 10:43:00 Test Item Value Reference Range Interpretation Comments Calcium Lvl (test code = Calcium Lvl) 8.2 8.5-10.5 [facility]2015-12-17 10:43:00 Test Item Value Reference Range Interpretation Comments Potassium Lvl (test code = Potassium 3.9 3.5-5.1 Lvl) [facility]2015-12-17 10:43:00 Test Item Value Reference Range Interpretation Comments Sodium Lvl (test code = Sodium Lvl) 141 135-145 [facility]2015-12-17 10:43:00 Test Item Value Reference Range Interpretation Comments Creatinine Lvl (test code = Creatinine 1.22 0.50-1.40 Lvl) [facility]2015-12-17 10:43:00 Test Item Value Reference Range Interpretation Comments Chloride Lvl (test code = Chloride Lvl) 105 95-109 [facility]2015-12-17 10:43:00 Test Item Value Reference Range Interpretation Comments CO2 (test code = CO2) 28 24-32 [facility]2015-12-17 10:43:00 Test Item Value Reference Range Interpretation Comments Glucose Lvl (test code = Glucose Lvl) 154 70-99 [facility]2015-12-17 10:43:00 Test Item Value Reference Range Interpretation Comments BUN (test code = BUN) 20 7-22 [facility]2015-12-17 10:43:00 Test Item Value Reference Range Interpretation Comments eGFR (test code = eGFR) 71 [facility]2015-12-17 10:43:00 Test Item Value Reference Range Interpretation Comments AGAP (test code = AGAP) 11.9 10.0-20.0 [facility] CenterIxcypxsKBAFJGQEXI6769-20-79 10:43:00 Test Item Value Reference Range Interpretation Comments Segs (test code = Segs) 54.0 45.0-75.0 [facility] CenterNdaxkkrNCHQTQXWZG9367-69-17 10:43:00 Test Item Value Reference Range Interpretation Comments Lymphocytes (test code = Lymphocytes) 30.3 20.0-40.0 [facility] CenterGhaotceYKKINKBWEC0549-41-13 10:43:00 Test Item Value Reference Range Interpretation Comments Eosinophils (test code = 6.2 See_Comment [A utomated message] The Eosinophils) system which ge nerated this result tra nsmitted reference range : <=4.0. The reference r jay was not used to int erpret this result as normal/abnormal . [facility] CenterCdsneemXZEDLUGOWG5593-41-06 10:43:00 Test Item Value Reference Range Interpretation Comments Lymphocytes # (test code = Lymphocytes 2.4 1.0-5.5 #) [facility] CenterZmaankuVZRGDMZZFH6594-57-68 10:43:00 Test Item Value Reference Range Interpretation Comments Basophils (test code = 1.2 See_Comment [Aut omated message] The Basophils) system which ge nerated this result tra nsmitted reference range : <=1.0. The reference r jay was not used to int erpret this result as normal/abnormal . [facility] CenterPnvjcicZNJGZAVZCH4817-04-05 10:43:00 Test Item Value Reference Range Interpretation Comments Monocytes (test code = Monocytes) 8.3 2.0-12.0 [facility] CenterVzqvsrjZKRSLSWIVI7461-49-55 10:43:00 Test Item Value Reference Range Interpretation Comments Segs-Bands # (test code = Segs-Bands #) 4.3 1.5-8.1 [facility] CenterZyokaazLWXLDGCQPJ6121-11-07 10:43:00 Test Item Value Reference Range Interpretation Comments Basophils # (test code 0.1 See_Comment [Aut omated message] The = Basophils #) system which generated this result tra nsmitted reference range : <=0.2. The reference r jay was not used to int erpret this result as normal/abnormal . [facility] CenterSpcsyeiREIUZMOPSB2724-53-69 10:43:00 Test Item Value Reference Range Interpretation Comments Eosinophils # (test code 0.5 See_Comment [A utomated message] The = Eosinophils #) system whic h generated this result tra nsmitted reference range : <=0.5. The reference r jay was not used to int erpret this result as normal/abnormal . [facility] CenterDopbtreMQQOMNEEGN0422-47-74 10:43:00 Test Item Value Reference Range Interpretation Comments Monocytes # (test code 0.7 See_Comment [Aut omated message] The = Monocytes #) system which generated this result tra nsmitted reference range : <=0.8. The reference r jay was not used to int erpret this result as normal/abnormal . [facility] CenterSegmgwdKEWJLRCQQN1094-61-53 10:43:00 Test Item Value Reference Range Interpretation Comments RDW (test code = RDW) 12.9 11.5-14.5 [facility] CenterWsymssxQBSYMGBAGH2426-00-96 10:43:00 Test Item Value Reference Range Interpretation Comments MCHC (test code = MCHC) 34.7 32.0-36.0 [facility] CenterJxwczqzECJMUDKXLN2638-83-77 10:43:00 Test Item Value Reference Range Interpretation Comments MPV (test code = MPV) 9.1 7.4-10.4 [facility] CenterBglewkqUDNZZYEBYI1365-44-61 10:43:00 Test Item Value Reference Range Interpretation Comments Platelet (test code = Platelet) 214 133-450 [facility] CenterOmaxyukVIQBVOAHRT8439-31-70 10:43:00 Test Item Value Reference Range Interpretation Comments Hgb (test code = Hgb) 14.1 14.0-18.0 [facility] CenterZvakrrpOLVTUXBLEX6964-79-16 10:43:00 Test Item Value Reference Range Interpretation Comments MCV (test code = MCV) 89.2 80.0-94.0 [facility] CenterHarqejfFXDJIEGMBX6967-62-03 10:43:00 Test Item Value Reference Range Interpretation Comments Hct (test code = Hct) 40.8 42.0-54.0 [place] 160475-12-17 10:43:00 Test Item Value Reference Range Interpretation Comments MCH (test code = MCH) 31.0 pg 27.0-31.0 [facility] CenterRgjxlesDAZAJDJPCE7559-67-79 10:43:00 Test Item Value Reference Range Interpretation Comments WBC (test code = WBC) 7.9 3.7-10.4 [facility] CenterGllxvnfRGWCEHSCMI8957-74-16 10:43:00 Test Item Value Reference Range Interpretation Comments RBC (test code = RBC) 4.57 4.70-6.10 [place] 160475-12-17 10:43:00 Test Item Value Reference Range Interpretation Comments INR (test code = INR) 1.06 0.85-1.17 [facility] CenterFflqtjcEEEWOFMXEF1963-38-74 10:43:00 Test Item Value Reference Range Interpretation Comments PTT (test code = PTT) 32.3 s 22.9-35.8 [facility] CenterYcayishEVBDWUWPFK7580-73-50 10:43:00 Test Item Value Reference Range Interpretation Comments PT (test code = PT) 14.1 s 12.0-14.7 [facility]2015-12-17 10:43:00 Test Item Value Reference Range Interpretation Comments Calcium Lvl (test code = Calcium Lvl) 8.2 8.5-10.5 [facility]2015-12-17 10:43:00 Test Item Value Reference Range Interpretation Comments Potassium Lvl (test code = Potassium 3.9 3.5-5.1 Lvl) [facility]2015-12-17 10:43:00 Test Item Value Reference Range Interpretation Comments Sodium Lvl (test code = Sodium Lvl) 141 135-145 [facility]2015-12-17 10:43:00 Test Item Value Reference Range Interpretation Comments Creatinine Lvl (test code = Creatinine 1.22 0.50-1.40 Lvl) [facility]2015-12-17 10:43:00 Test Item Value Reference Range Interpretation Comments Chloride Lvl (test code = Chloride Lvl) 105 95-109 [facility]2015-12-17 10:43:00 Test Item Value Reference Range Interpretation Comments CO2 (test code = CO2) 28 24-32 [facility]2015-12-17 10:43:00 Test Item Value Reference Range Interpretation Comments Glucose Lvl (test code = Glucose Lvl) 154 70-99 [facility]2015-12-17 10:43:00 Test Item Value Reference Range Interpretation Comments BUN (test code = BUN) 20 7-22 [facility]2015-12-17 10:43:00 Test Item Value Reference Range Interpretation Comments eGFR (test code = eGFR) 71 [facility]2015-12-17 10:43:00 Test Item Value Reference Range Interpretation Comments AGAP (test code = AGAP) 11.9 10.0-20.0 [facility] CenterMfxutueZQMGGTYNGX0006-47-35 10:43:00 Test Item Value Reference Range Interpretation Comments Segs (test code = Segs) 54.0 45.0-75.0 [facility] CenterTexolijRPMMPGYAET2195-72-01 10:43:00 Test Item Value Reference Range Interpretation Comments Lymphocytes (test code = Lymphocytes) 30.3 20.0-40.0 [facility] CenterIyoanzaORQMDOBCHH7291-37-12 10:43:00 Test Item Value Reference Range Interpretation Comments Eosinophils (test code = 6.2 See_Comment [A utomated message] The Eosinophils) system which ge nerated this result tra nsmitted reference range : <=4.0. The reference r jay was not used to int erpret this result as normal/abnormal . [facility] CenterOnxdvcgEXGJJNETSV1532-67-56 10:43:00 Test Item Value Reference Range Interpretation Comments Lymphocytes # (test code = Lymphocytes 2.4 1.0-5.5 #) [facility] CenterYfljvbvKDBOMTTHIN4233-94-85 10:43:00 Test Item Value Reference Range Interpretation Comments Basophils (test code = 1.2 See_Comment [Aut omated message] The Basophils) system which ge nerated this result tra nsmitted reference range : <=1.0. The reference r jay was not used to int erpret this result as normal/abnormal . [facility] CenterRgkzgxjTJWVHCXTUA6762-57-31 10:43:00 Test Item Value Reference Range Interpretation Comments Monocytes (test code = Monocytes) 8.3 2.0-12.0 [facility] CenterNlqtbxeCXPKAKFTAT3862-71-89 10:43:00 Test Item Value Reference Range Interpretation Comments Segs-Bands # (test code = Segs-Bands #) 4.3 1.5-8.1 [facility] CenterVksubfhCSGHJSHULN2546-45-40 10:43:00 Test Item Value Reference Range Interpretation Comments Basophils # (test code 0.1 See_Comment [Aut omated message] The = Basophils #) system which generated this result tra nsmitted reference range : <=0.2. The reference r jay was not used to int erpret this result as normal/abnormal . [facility] CenterNxqlmdkNSRJNCMRVE9014-65-17 10:43:00 Test Item Value Reference Range Interpretation Comments Eosinophils # (test code 0.5 See_Comment [A utomated message] The = Eosinophils #) system whic h generated this result tra nsmitted reference range : <=0.5. The reference r jay was not used to int erpret this result as normal/abnormal . [facility] CenterCsokuxbQFAJEZCFZI3812-80-85 10:43:00 Test Item Value Reference Range Interpretation Comments Monocytes # (test code 0.7 See_Comment [Aut omated message] The = Monocytes #) system which generated this result tra nsmitted reference range : <=0.8. The reference r jya was not used to int erpret this result as normal/abnormal . [facility] CenterOwvpdpbXLOCJZCXHG8175-42-22 10:43:00 Test Item Value Reference Range Interpretation Comments RDW (test code = RDW) 12.9 11.5-14.5 [facility] CenterEiufmbbJJTAOSBIZG0512-78-93 10:43:00 Test Item Value Reference Range Interpretation Comments MCHC (test code = MCHC) 34.7 32.0-36.0 [facility] CenterHjjzmraWPEJPODFXN1625-13-79 10:43:00 Test Item Value Reference Range Interpretation Comments MPV (test code = MPV) 9.1 7.4-10.4 [facility] CenterBnuihvjUHVLJTJCUI8079-60-20 10:43:00 Test Item Value Reference Range Interpretation Comments Platelet (test code = Platelet) 214 133-450 [facility] CenterZuhrqdhMVMNRUGAHF5106-89-12 10:43:00 Test Item Value Reference Range Interpretation Comments Hgb (test code = Hgb) 14.1 14.0-18.0 [facility] CenterSubnecqPHZPVZQXHZ0818-01-08 10:43:00 Test Item Value Reference Range Interpretation Comments MCV (test code = MCV) 89.2 80.0-94.0 [facility] CenterHkmigcyZIAFWREWDR4724-45-96 10:43:00 Test Item Value Reference Range Interpretation Comments Hct (test code = Hct) 40.8 42.0-54.0 [facility] CenterSqnptloKTRCEGKPUX2261-61-02 10:43:00 Test Item Value Reference Range Interpretation Comments MCH (test code = MCH) 31.0 pg 27.0-31.0 [facility] CenterGoijqzxFNTLOWGKLI3319-03-69 10:43:00 Test Item Value Reference Range Interpretation Comments WBC (test code = WBC) 7.9 3.7-10.4 [facility] CenterEizrrneGENGTVFZMP1299-15-13 10:43:00 Test Item Value Reference Range Interpretation Comments RBC (test code = RBC) 4.57 4.70-6.10 [facility] CenterUqjscxxZNUTZPMLGO5762-97-40 10:43:00 Test Item Value Reference Range Interpretation Comments INR (test code = INR) 1.06 0.85-1.17 [facility] CenterNdyumbxDAGRXSRQLK9975-28-70 10:43:00 Test Item Value Reference Range Interpretation Comments PTT (test code = PTT) 32.3 s 22.9-35.8 [facility] CenterZhlhqkeTCNEVYPGIN4040-70-52 10:43:00 Test Item Value Reference Range Interpretation Comments PT (test code = PT) 14.1 s 12.0-14.7 [facility]2015-12-16 19:45:00 Test Item Value Reference Range Interpretation Comments AST (test code = AST) 44 See_Comment [Auto mated message] The system which ge nerated this result transmit cesar reference range : <=37. The reference range was not used to interpr et this result as tu l/abnormal. [facility]2015-12-16 19:45:00 Test Item Value Reference Range Interpretation Comments Alk Phos (test code = Alk Phos) 54 39-136 [facility]2015-12-16 19:45:00 Test Item Value Reference Range Interpretation Comments Bili Total (test code = Bili Total) 1.0 0.2-1.3 [place] 151435-12-16 19:45:00 Test Item Value Reference Range Interpretation Comments ALT (test code = ALT) 56 See_Comment [Auto mated message] The system which ge nerated this result transmit cesar reference range : <=65. The reference range was not used to interpr et this result as tu l/abnormal. [place] 151435-12-16 19:45:00 Test Item Value Reference Range Interpretation Comments Albumin Lvl (test code = Albumin Lvl) 3.9 3.5-5.0 [facility]2015-12-16 19:45:00 Test Item Value Reference Range Interpretation Comments Total Protein (test code = Total 8.7 6.4-8.4 Protein) [facility]2015-12-16 19:45:00 Test Item Value Reference Range Interpretation Comments A/G Ratio (test code = A/G Ratio) 0.8 0.7-1.6 [place] 151435-12-16 19:45:00 Test Item Value Reference Range Interpretation Comments Globulin (test code = Globulin) 4.8 2.0-4.0 [place] 151435-12-16 19:45:00 Test Item Value Reference Range Interpretation Comments B/C Ratio (test code = B/C Ratio) 14 6-25 [place] 151435-12-16 19:45:00 Test Item Value Reference Range Interpretation Comments Lactic Acid Lvl (test code = Lactic 1.9 0.5-2.2 Acid Lvl) [facility] CenterVdpgifkSMYHGZQENK4881-31-96 19:45:00 Test Item Value Reference Range Interpretation Comments INR (test code = INR) 1.07 0.85-1.17 [place] [address]-12-16 19:45:00 Test Item Value Reference Range Interpretation Comments PTT (test code = PTT) 30.0 s 22.9-35.8 [place] [address]-12-16 19:45:00 Test Item Value Reference Range Interpretation Comments PT (test code = PT) 14.2 s 12.0-14.7 [place] [address]-12-16 19:45:00 Test Item Value Reference Range Interpretation Comments Sed Rate (test code = 15 See_Comment [Auto mated message] The Sed Rate) system which ge nerated this result transmit cesar reference range : <=15. The reference range was not used to interpr et this result as tu l/abnormal. [facility]jtRNNJSPBMDH3748[facility]-62 19:45:00 Test Item Value Reference Range Interpretation Comments Prealbumin (test code = Prealbumin) 12.0 18.0-45.0 [facility] NMFPWYSRS5623[facility]-05 19:45:00 Test Item Value Reference Range Interpretation Comments Hgb A1C (test code = Hgb A1C) 6.7 [facility] GLGVD5522-53-99 19:45:00 Test Item Value Reference Range Interpretation Comments AST (test code = AST) 44 See_Comment [Auto mated message] The system which ge nerated this result transmit cesar reference range : <=37. The reference range was not used to interpr et this result as tu l/abnormal. [facility]2015-12-16 19:45:00 Test Item Value Reference Range Interpretation Comments Alk Phos (test code = Alk Phos) 54 39-136 [facility] [id number] 19:45:00 Test Item Value Reference Range Interpretation Comments Bili Total (test code = Bili Total) 1.0 0.2-1.3 [facility]2015-12-16 19:45:00 Test Item Value Reference Range Interpretation Comments ALT (test code = ALT) 56 See_Comment [Auto mated message] The system which ge nerated this result transmit cesar reference range : <=65. The reference range was not used to interpr et this result as tu l/abnormal. [facility] [id number] 19:45:00 Test Item Value Reference Range Interpretation Comments Albumin Lvl (test code = Albumin Lvl) 3.9 3.5-5.0 [facility]2015-12-16 19:45:00 Test Item Value Reference Range Interpretation Comments Total Protein (test code = Total 8.7 6.4-8.4 Protein) [facility]2015-12-16 19:45:00 Test Item Value Reference Range Interpretation Comments A/G Ratio (test code = A/G Ratio) 0.8 0.7-1.6 [facility]2015-12-16 19:45:00 Test Item Value Reference Range Interpretation Comments Globulin (test code = Globulin) 4.8 2.0-4.0 [id number] 19:45:00 Test Item Value Reference Range Interpretation Comments B/C Ratio (test code = B/C Ratio) 14 6-25 [facility] [id number] 19:45:00 Test Item Value Reference Range Interpretation Comments Lactic Acid Lvl (test code = Lactic 1.9 0.5-2.2 Acid Lvl) [id number] 19:45:00 Test Item Value Reference Range Interpretation Comments INR (test code = INR) 1.07 0.85-1.17 [facility] [id number] 19:45:00 Test Item Value Reference Range Interpretation Comments PTT (test code = PTT) 30.0 s 22.9-35.8 [facility] [id number] 19:45:00 Test Item Value Reference Range Interpretation Comments PT (test code = PT) 14.2 s 12.0-14.7 [facility] [id number] 19:45:00 Test Item Value Reference Range Interpretation Comments Sed Rate (test code = 15 See_Comment [Auto mated message] The Sed Rate) system which ge nerated this result transmit cesar reference range : <=15. The reference range was not used to interpr et this result as tu l/abnormal. [id number] 19:45:00 Test Item Value Reference Range Interpretation Comments Prealbumin (test code = Prealbumin) 12.0 18.0-45.0 [facility] [id number] 19:45:00 Test Item Value Reference Range Interpretation Comments Hgb A1C (test code = Hgb A1C) 6.7 [facility] [id number] 19:45:00 Test Item Value Reference Range Interpretation Comments AST (test code = AST) 44 See_Comment [Auto mated message] The system which ge nerated this result transmit cesar reference range : <=37. The reference range was not used to interpr et this result as tu l/abnormal. [facility] [id number] 19:45:00 Test Item Value Reference Range Interpretation Comments Alk Phos (test code = Alk Phos) 54 39-136 [facility]2015-12-16 19:45:00 Test Item Value Reference Range Interpretation Comments Bili Total (test code = Bili Total) 1.0 0.2-1.3 [facility]2015-12-16 19:45:00 Test Item Value Reference Range Interpretation Comments ALT (test code = ALT) 56 See_Comment [Auto mated message] The system which ge nerated this result transmit cesar reference range : <=65. The reference range was not used to interpr et this result as tu l/abnormal. [facility]2015-12-16 19:45:00 Test Item Value Reference Range Interpretation Comments Albumin Lvl (test code = Albumin Lvl) 3.9 3.5-5.0 [facility]2015-12-16 19:45:00 Test Item Value Reference Range Interpretation Comments Total Protein (test code = Total 8.7 6.4-8.4 Protein) [facility]2015-12-16 19:45:00 Test Item Value Reference Range Interpretation Comments A/G Ratio (test code = A/G Ratio) 0.8 0.7-1.6 [place] [id number] 19:45:00 Test Item Value Reference Range Interpretation Comments Globulin (test code = Globulin) 4.8 2.0-4.0 [facility]2015-12-16 19:45:00 Test Item Value Reference Range Interpretation Comments B/C Ratio (test code = B/C Ratio) 14 6-25 [facility]2015-12-16 19:45:00 Test Item Value Reference Range Interpretation Comments Lactic Acid Lvl (test code = Lactic 1.9 0.5-2.2 Acid Lvl) [facility] [id number] 19:45:00 Test Item Value Reference Range Interpretation Comments INR (test code = INR) 1.07 0.85-1.17 [place] [id number] 19:45:00 Test Item Value Reference Range Interpretation Comments PTT (test code = PTT) 30.0 s 22.9-35.8 [facility] [id number] 19:45:00 Test Item Value Reference Range Interpretation Comments PT (test code = PT) 14.2 s 12.0-14.7 [place] [id number] 19:45:00 Test Item Value Reference Range Interpretation Comments Sed Rate (test code = 15 See_Comment [Auto mated message] The Sed Rate) system which ge nerated this result transmit cesar reference range : <=15. The reference range was not used to interpr et this result as tu l/abnormal. [id number] 19:45:00 Test Item Value Reference Range Interpretation Comments Prealbumin (test code = Prealbumin) 12.0 18.0-45.0 [facility]annSPECIAL [id number] 19:45:00 Test Item Value Reference Range Interpretation Comments Hgb A1C (test code = Hgb A1C) 6.7 [facility] [id number] 18:18:00 Test Item Value Reference Range Interpretation Comments UA Sq Epi (test code = None Seen (02/16/15 UA Sq Epi) 12:18 PM) [facility] [id number] 18:18:00 Test Item Value Reference Range Interpretation Comments Micro? (test code = Performed (02/16/15 12:18 Micro?) PM) [facility] [id number] 18:18:00 Test Item Value Reference Range Interpretation Comments UA Leuk Est (test Negative (02/16/15 12:18 code = UA Leuk Est) PM) [facility] [id number] 18:18:00 Test Item Value Reference Range Interpretation Comments UA Nitrite (test code Negative (02/16/15 = UA Nitrite) 12:18 PM) [facility] [id number] 18:18:00 Test Item Value Reference Range Interpretation Comments UA Bacteria (test code = None Seen (02/16/15 UA Bacteria) 12:18 PM) [facility] [id number] 18:18:00 Test Item Value Reference Range Interpretation Comments UA RBC (test code = 0-2 /HPF See_Comment [Automa cesar message] The UA RBC) system which ge nerated this result tra nsmitted reference range : <=2. The reference range was not used to interpr et this result as tu l/abnormal. [facility] [id number] 18:18:00 Test Item Value Reference Range Interpretation Comments UA WBC (test code = UA WBC) 0-2 /HPF [facility] [id number] 18:18:00 Test Item Value Reference Range Interpretation Comments UA Urobilinogen (test code = UA 1.0 0.1-1.0 Urobilinogen) [facility] [id number] 18:18:00 Test Item Value Reference Range Interpretation Comments UA Blood (test code = Negative (02/16/15 12:18 UA Blood) PM) [facility] [id number] 18:18:00 Test Item Value Reference Range Interpretation Comments UA Bili (test code = Negative *NA*(02/16/15 UA Bili) 12:18 PM) [facility] [id number] 18:18:00 Test Item Value Reference Range Interpretation Comments UA Ketones (test code Negative *NA*(02/16/15 = UA Ketones) 12:18 PM) [facility] [id number] 18:18:00 Test Item Value Reference Range Interpretation Comments UA Glucose (test code Negative (02/16/15 = UA Glucose) 12:18 PM) [facility] [id number] 18:18:00 Test Item Value Reference Range Interpretation Comments UA Mucus (test code = None Seen (02/16/15 UA Mucus) 12:18 PM) [facility] [id number] 18:18:00 Test Item Value Reference Range Interpretation Comments UA Protein (test code Negative (02/16/15 = UA Protein) 12:18 PM) [facility] [id number] 18:18:00 Test Item Value Reference Range Interpretation Comments UA pH (test code = UA pH) 6.0 1 5.0-8.0 [facility] [id number] 18:18:00 Test Item Value Reference Range Interpretation Comments UA Color (test code = Yellow *NA*(02/16/15 UA Color) 12:18 PM) [facility] [id number] 18:18:00 Test Item Value Reference Range Interpretation Comments UA Spec Grav (test code = UA Spec 1.025 1 Grav) [facility] AND [id number] 18:18:00 Test Item Value Reference Range Interpretation Comments UA Turbidity (test code = Clear (02/16/15 UA Turbidity) 12:18 PM) [facility] [id number] 18:18:00 Test Item Value Reference Range Interpretation Comments UA Sq Epi (test code = None Seen (02/16/15 UA Sq Epi) 12:18 PM) [facility] [id number] 18:18:00 Test Item Value Reference Range Interpretation Comments Micro? (test code = Performed (02/16/15 12:18 Micro?) PM) [facility] [id number] 18:18:00 Test Item Value Reference Range Interpretation Comments UA Leuk Est (test Negative (02/16/15 12:18 code = UA Leuk Est) PM) [facility] [id number] 18:18:00 Test Item Value Reference Range Interpretation Comments UA Nitrite (test code Negative (02/16/15 = UA Nitrite) 12:18 PM) [facility] [id number] 18:18:00 Test Item Value Reference Range Interpretation Comments UA Bacteria (test code = None Seen (02/16/15 UA Bacteria) 12:18 PM) [facility] [id number] 18:18:00 Test Item Value Reference Range Interpretation Comments UA RBC (test code = 0-2 /HPF See_Comment [Automa cesar message] The UA RBC) system which ge nerated this result tra nsmitted reference range : <=2. The reference range was not used to interpr et this result as tu l/abnormal. [facility] [id number] 18:18:00 Test Item Value Reference Range Interpretation Comments UA WBC (test code = UA WBC) 0-2 /HPF [facility] [id number] 18:18:00 Test Item Value Reference Range Interpretation Comments UA Urobilinogen (test code = UA 1.0 0.1-1.0 Urobilinogen) [facility] [id number] 18:18:00 Test Item Value Reference Range Interpretation Comments UA Blood (test code = Negative (02/16/15 12:18 UA Blood) PM) [facility] [id number] 18:18:00 Test Item Value Reference Range Interpretation Comments UA Bili (test code = Negative *NA*(02/16/15 UA Bili) 12:18 PM) [facility] [id number] 18:18:00 Test Item Value Reference Range Interpretation Comments UA Ketones (test code Negative *NA*(02/16/15 = UA Ketones) 12:18 PM) [facility] [id number] 18:18:00 Test Item Value Reference Range Interpretation Comments UA Glucose (test code Negative (02/16/15 = UA Glucose) 12:18 PM) [facility] [id number] 18:18:00 Test Item Value Reference Range Interpretation Comments UA Mucus (test code = None Seen (02/16/15 UA Mucus) 12:18 PM) [facility] [id number] 18:18:00 Test Item Value Reference Range Interpretation Comments UA Protein (test code Negative (02/16/15 = UA Protein) 12:18 PM) [facility] [id number] 18:18:00 Test Item Value Reference Range Interpretation Comments UA pH (test code = UA pH) 6.0 1 5.0-8.0 [facility] [id number] 18:18:00 Test Item Value Reference Range Interpretation Comments UA Color (test code = Yellow *NA*(02/16/15 UA Color) 12:18 PM) [facility] [id number] 18:18:00 Test Item Value Reference Range Interpretation Comments UA Spec Grav (test code = UA Spec 1.025 1 Grav) [facility] [id number] 18:18:00 Test Item Value Reference Range Interpretation Comments UA Turbidity (test code = Clear (02/16/15 UA Turbidity) 12:18 PM) [facility] [id number] 18:18:00 Test Item Value Reference Range Interpretation Comments UA Sq Epi (test code = None Seen (02/16/15 UA Sq Epi) 12:18 PM) [facility] [id number] 18:18:00 Test Item Value Reference Range Interpretation Comments Micro? (test code = Performed (02/16/15 12:18 Micro?) PM) [facility] [id number] 18:18:00 Test Item Value Reference Range Interpretation Comments UA Leuk Est (test Negative (02/16/15 12:18 code = UA Leuk Est) PM) [facility] AND [id number] 18:18:00 Test Item Value Reference Range Interpretation Comments UA Nitrite (test code Negative (02/16/15 = UA Nitrite) 12:18 PM) [facility] AND [id number] 18:18:00 Test Item Value Reference Range Interpretation Comments UA Bacteria (test code = None Seen (02/16/15 UA Bacteria) 12:18 PM) [facility] AND [id number] 18:18:00 Test Item Value Reference Range Interpretation Comments UA RBC (test code = 0-2 /HPF See_Comment [Automa cesar message] The UA RBC) system which ge nerated this result tra nsmitted reference range : <=2. The reference range was not used to interpr et this result as tu l/abnormal. [facility] AND [id number] 18:18:00 Test Item Value Reference Range Interpretation Comments UA WBC (test code = UA WBC) 0-2 /HPF [facility] AND [id number] 18:18:00 Test Item Value Reference Range Interpretation Comments UA Urobilinogen (test code = UA 1.0 0.1-1.0 Urobilinogen) [facility] AND [id number] 18:18:00 Test Item Value Reference Range Interpretation Comments UA Blood (test code = Negative (02/16/15 12:18 UA Blood) PM) [facility] AND [id number] 18:18:00 Test Item Value Reference Range Interpretation Comments UA Bili (test code = Negative *NA*(02/16/15 UA Bili) 12:18 PM) [facility] AND [id number] 18:18:00 Test Item Value Reference Range Interpretation Comments UA Ketones (test code Negative *NA*(02/16/15 = UA Ketones) 12:18 PM) [facility] AND [id number] 18:18:00 Test Item Value Reference Range Interpretation Comments UA Glucose (test code Negative (02/16/15 = UA Glucose) 12:18 PM) [facility] AND [id number] 18:18:00 Test Item Value Reference Range Interpretation Comments UA Mucus (test code = None Seen (12/16/15 UA Mucus) 12:18 PM) [facility] [id number] 18:18:00 Test Item Value Reference Range Interpretation Comments UA Protein (test code Negative (02/16/15 = UA Protein) 12:18 PM) [facility] [id number] 18:18:00 Test Item Value Reference Range Interpretation Comments UA pH (test code = UA pH) 6.0 1 5.0-8.0 [facility] [id number] 18:18:00 Test Item Value Reference Range Interpretation Comments UA Color (test code = Yellow *NA*(02/16/15 UA Color) 12:18 PM) [facility] AND [id number] 18:18:00 Test Item Value Reference Range Interpretation Comments UA Spec Grav (test code = UA Spec 1.025 1 Grav) [facility] AND [id number] 18:18:00 Test Item Value Reference Range Interpretation Comments UA Turbidity (test code = Clear (02/16/15 UA Turbidity) 12:18 PM) [facility]
--- NOTE | 2022-04-13 12:01 | RAD REPORT ---
EXAM DESCRIPTION: Matt Single View04/13/2022 11:32 am CLINICAL HISTORY: PICC line retraction COMPARISON: 2021 FINDINGS: The lungs appear clear of acute infiltrate. The heart is mildly enlarged. Aorta is tortuous/ectatic. A PICC line is not visualized within field view. Patient is rotated limiting evaluation of the medias tinum.
--- NOTE | 2022-04-13 13:29 | RAD REPORT ---
EXAM DESCRIPTION: CT - Thorax Wo Con - 04/13/2022 1:14 pm CLINICAL HISTORY: FB COMPARISON: Chest Abdomen Pelvis W Cont dated 01/30/2022 FINDINGS: Chest Wall: No suspicious thyroid nodules or pathologic lymphadenopathy. Lungs: Right lower lobe partially consolidative airspace disease. Atelectasis at the left lung base. Pleura: Mild to moderate right pleural effusion. Mediastinum/kenneth: No pathologic lymphadenopathy. Pulmonary arteries/Aorta: Limited evaluation without contrast. No aortic aneurysm. Heart: No significant pericardial effusion. Normal heart size. Upper abdomen: No acute abnormality. Bones: New destructive process involving the right aspect of the right posterior T5 vertebral body. I ncreasing paraspinal soft-tissue. T6, T7, and T8 were previously involved. . All CT scans are performed using dose optimization technique as appropriate and may include automated exposure control or mA/KV adjustment according to patient size. IMPRESSION: 1. No retained catheter fragment identified. 2. Increasing destruction destructive process in the thoracic spine which now involves T5, previously only T6-T8. Also, increasing paraspinal soft tissue that may be due to either tumor or infection.. I ncreased right lower lobe consolidation could reflect pneumonia.
--- NOTE | 2022-04-13 14:00 | EDPHYS ---
Physician Documentation [facility] Name: Srikanth Hummel Age: 71 yrs Sex: Male : 1950 Arrival Date: 04/13/2022 Time: 10:32 Bed 7 Private MD: ED Physician Angel Nicholas HPI: 04/13 11:48 This 71 yrs old Black Male presents to ER via EMS with complaints of PICC line rt dislodgment. 11:48 Patient presents to the ED with a dislodged PICC line. 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 The patient noticed that the PICC line was out this morning. Came here for replacement. Denies other acute complaints at this time. Symptoms are moderate severity, no other aggravating alleviating factors.. Historical: - Allergies: 10:35 No Known Allergies; ll1 - PMHx: 10:35 diabetes mellitus; Hypertensive disorder; ll1 10:50 lung CA; ll1 - PSHx: 10:35 left leg amputation; ll1 10:51 T8 spinal FX; ll1 - Immunization history:: Client reports receiving the 2nd dose of the Covid vaccine. - Social history:: Smoking status: Patient/guardian denies using tobacco. - Family history:: not pertinent. ROS: 11:48 Constitutional: Negative for fever, chills, and weight loss, Cardiovascular: Negative rt for chest pain, palpitations, and edema, Respiratory: Negative for shortness of breath, cough, wheezing, and pleuritic chest pain, Abdomen/GI: Negative for abdominal pain, nausea, vomiting, diarrhea, and constipation, MS/Extremity: Negative for injury and deformity, Skin: Negative for injury, rash, and discoloration, Neuro: Negative for headache, weakness, numbness, tingling, and seizure, Psych: Negative for depression, anxiety, suicide ideation, homicidal ideation, and hallucinations. 11:48 Back: Positive for pain at rest, Negative for injury or acute deformity. Exam: 11:48 Constitutional: This is a well developed, well nourished patient who is awake, alert, rt and in no acute distress. Head/Face: Normocephalic, atraumatic. Chest/axilla: Normal chest wall appearance and motion. Nontender with no deformity. No lesions are appreciated. Cardiovascular: Regular rate and rhythm with a normal S1 and S2. No gallops, murmurs, or rubs. Normal PMI, no JVD. No pulse deficits. Respiratory: Lungs have equal breath sounds bilaterally, clear to auscultation and percussion. No rales, rhonchi or wheezes noted. No increased work of breathing, no retractions or nasal flaring. Abdomen/GI: Soft, non-tender, with normal bowel sounds. No distension or tympany. No guarding or rebound. No evidence of tenderness throughout. Skin: Warm, dry with normal turgor. Normal color with no rashes, no lesions, and no evidence of cellulitis. Neuro: Awake and alert, GCS 15, oriented to person, place, time, and situation. Cranial nerves II-XII grossly intact. Motor strength 5/5 in all extremities. Sensory grossly intact. Cerebellar exam normal. Normal gait. Psych: Awake, alert, with orientation to person, place and time. Behavior, mood, and affect are within normal limits. 11:48 Musculoskeletal/extremity: PICC line is removed at the right upper arm. The PICC line does not appear to be intact. No active bleeding, no swelling, no cellulitis. Vital Signs: 10:33 BP 133 / 78; Pulse 95; Resp 20; Temp 97.1(O); Pulse Ox 88% on R/A; Weight 56.7 kg; ll1 Height 6 ft. 1 in. (185.42 cm); Pain 9/10; 11:33 BP 123 / 65; Pulse 94; Resp 19; Pulse Ox 95% ; ll1 15:45 BP 121 / 64; Pulse 89; Resp 20; Pulse Ox 96% on NC; ll1 15:58 BP 123 / 64; Pulse 90; Resp 16; Temp 98.4(O); Pulse Ox 95% on 2 lpm NC; ll1 10:33 Body Mass Index 16.49 (56.70 kg, 185.42 cm) ll1 MDM: 10:33 Patient medically screened. rt 14:12 Differential Diagnosis PICC line removal, retained PICC line fragment. Data reviewed: rt vital signs, nurses notes, radiologic studies. Independent interpretation of the following test(s) in the Emergency Department X-Ray: My interpretation is No foreign body identified. CT Scan: My interpretation is No foreign body identified. Historians other than the Patient: Spouse/Significant Other: Discussed with care plan from [facility]. Care significantly affected by the following chronic conditions: Diabetes. Counseling: I had a detailed discussion with the patient and/or guardian regarding: the historical points, exam findings, and any diagnostic results supporting the discharge/admit diagnosis, radiology results, the need for further work-up and treatment in the hospital. Response to treatment: the patient's symptoms have mildly improved after treatment. 04/13 14:05 Order name: SARS RAPID; Complete Time: 16:05 ll1 04/13 14:07 Order name: CBC with Diff ll1 04/13 10:37 Order name: Chest Single View XRAY; Complete Time: 12:02 rt 04/13 12:26 Order name: CT Chest Wo Con; Complete Time: 13:30 rt 04/13 14:07 Order name: Basic Metabolic Panel; Complete Time: 16:05 ll1 Administered Medications: 15:44 Drug: vancoMYCIN 1 grams Route: IVPB; Infused Over: 2 hrs; Site: left jugular; 1 16:04 Follow up: Response: No adverse reaction; IV Status: Infusion continued upon admission; 1 IV Intake: 25ml 16:04 Not Given (Patient Refused): morphine 4 mg IM once ll1 Disposition Summary: 04/13/22 13:59 Hospitalization Ordered Hospitalization Status: Observation rt Provider: Jean-Pierre Garvey rt Location: Telemetry/[facility] (observation) rt Condition: Stable rt Problem: an ongoing problem rt Symptoms: are unchanged rt Bed/Room Type: Standard rt Room Assignment: 210(04/13/22 15:25) dw Diagnosis - PICC line dislodgment rt - Vertebral discitis rt Forms: - Medication Reconciliation Form rt - SBAR form rt Signatures: Dispatcher [employer] Anne Fong RN RN dw Javy Lackey RN RN ll1 Angel Nicholas MD MD rt Corrections: (The following items were deleted from the chart) 15:25 13:59 rt dw
--- NOTE | 2022-04-13 14:00 | ER ---
Nurse's Notes [facility] [place] Name: Srikanth Hummel Age: 71 yrs Sex: Male : 1950 Arrival Date: 04/13/2022 Time: 10:32 Bed 7 Private MD: Diagnosis: PICC line dislodgment;Vertebral discitis Presentation: 04/13 10:33 Chief complaint: Patient states: Accidentally pulled out midline IV from RUE. ll1 Coronavirus screen: Vaccine status: Patient reports receiving the 2nd dose of the covid vaccine. Client denies travel out of the [place] in the last 14 days. At this time, the client does not indicate any symptoms associated with coronavirus-19. Ebola Screen: Patient denies travel to an Ebola-affected area in the 21 days before illness onset. Initial Sepsis Screen: Does the patient meet any 2 criteria? No. Patient's initial sepsis screen is negative. Does the patient have a suspected source of infection? Yes: Bone or joint infection. Risk Assessment: Do you want to hurt yourself or someone else? Patient reports no desire to harm self or others. Onset of symptoms was April 13, 2022. 10:33 Method Of Arrival: EMS ll1 10:33 Acuity: BRENDAN 3 ll1 Historical: - Allergies: 10:35 No Known Allergies; ll1 - PMHx: 10:35 diabetes mellitus; Hypertensive disorder; ll1 10:50 lung CA; ll1 - PSHx: 10:35 left leg amputation; ll1 10:51 T8 spinal FX; ll1 - Immunization history:: Client reports receiving the 2nd dose of the Covid vaccine. - Social history:: Smoking status: Patient/guardian denies using tobacco. - Family history:: not pertinent. Screenin:47 [facility] ED Fall Risk Assessment (Adult) History of falling in the last 3 months, ll1 including since admission Yes- single mechanical fall (1 pt) Impaired Gait Yes (1 pt) Mobility Assist Device Used Yes (1 pt) Score/Fall Risk Level 3 or more points = High Risk Oriented to surroundings, Maintained a safe environment, Educated pt \T\ family on fall prevention, incl call for assistance when getting out of bed, Provided non-skid footwear, Hourly rounding (assess needs \T\ fall precautionary measures) done. Abuse screen: Denies threats or abuse. Nutritional screening: No deficits noted. Tuberculosis screening: No symptoms or risk factors identified. Assessment: 10:46 General: Appears uncomfortable, ill, Behavior is calm, cooperative, appropriate for ll1 age. General: Midline accidentally pulled out of RUE today. . Pain: Complains of pain in back Quality of pain is described as aching. Neuro: No deficits noted. Cardiovascular: No deficits noted. Musculoskeletal: Reports pain in back. Musculoskeletal: Circulation, motion, and sensation intact. Capillary refill < 3 seconds. 11:28 Reassessment: No changes from previously documented assessment. X ray in room. ll1 12:18 Reassessment: No changes from previously documented assessment. Dr. Nicohlas at . ll1 12:36 Reassessment: No changes from previously documented assessment. Patient and/or family ll1 updated on plan of care and expected duration. Pain level reassessed. 14:16 Reassessment: No changes from previously documented assessment. Patient and/or family ll1 updated on plan of care and expected duration. Pain level reassessed. 15:45 Reassessment: No changes from previously documented assessment. Patient and/or family ll1 updated on plan of care and expected duration. Pain level reassessed. Patient is alert, oriented x 3, equal unlabored respirations, skin warm/dry/pink. 16:03 Reassessment: No changes from previously documented assessment. Patient and/or family ll1 updated on plan of care and expected duration. Pain level reassessed. Patient is alert, oriented x 3, equal unlabored respirations, skin warm/dry/pink. 16:08 Reassessment: No changes from previously documented assessment. Patient and/or family ll1 updated on plan of care and expected duration. Pain level reassessed. Vital Signs: 10:33 BP 133 / 78; Pulse 95; Resp 20; Temp 97.1(O); Pulse Ox 88% on R/A; Weight 56.7 kg; ll1 Height 6 ft. 1 in. (185.42 cm); Pain 9/10; 11:33 BP 123 / 65; Pulse 94; Resp 19; Pulse Ox 95% ; ll1 15:45 BP 121 / 64; Pulse 89; Resp 20; Pulse Ox 96% on NC; ll1 15:58 BP 123 / 64; Pulse 90; Resp 16; Temp 98.4(O); Pulse Ox 95% on 2 lpm NC; ll1 10:33 Body Mass Index 16.49 (56.70 kg, 185.42 cm) ll1 ED Course: 10:32 Patient arrived in ED. eb 10:32 Angel Nicholas MD is Attending Physician. rt 10:33 Javy Lackey RN is Primary Nurse. ll1 10:35 Triage completed. ll1 10:35 Arm band placed on Patient placed in an exam room, on a stretcher. ll1 10:48 Patient has correct armband on for positive identification. Bed in low position. Call ll1 light in reach. Client placed on continuous cardiac and pulse oximetry monitoring. NIBP monitoring applied. 11:33 Chest Single View XRAY In Process Unspecified. EDMS 12:35 Missed attempt(s): 22 gauge in left forearm. Bleeding controlled, band aid applied, ll1 catheter tip intact. 13:16 CT Chest Wo Con In Process Unspecified. EDMS 13:58 Jean-Pierre Garvey MD is Hospitalizing Provider. rt 15:35 Inserted saline lock: 20 gauge in left EJ, using aseptic technique. Blood collected. by ll1 Keagan Nicholas MD. 16:04 No provider procedures requiring assistance completed. Patient admitted, IV remains in ll1 place. Administered Medications: 15:44 Drug: vancoMYCIN 1 grams Route: IVPB; Infused Over: 2 hrs; Site: left jugular; ll1 16:04 Follow up: Response: No adverse reaction; IV Status: Infusion continued upon admission; ll1 IV Intake: 25ml 16:04 Not Given (Patient Refused): morphine 4 mg IM once ll1 Medication: 10:48 VIS not applicable for this client. ll1 Intake: 16:04 IV: 25ml; Total: 25ml. ll1 Outcome: 13:59 Decision to Hospitalize by Provider. rt 16:04 Admitted to Tele accompanied by tech, via stretcher, room 210, with oxygen, with chart, ll1 Report called to GODWIN Ovalles on 16:04 Condition: stable 16:04 Instructed on the need for admit. 16:42 Patient left the ED. 1 Signatures: Dispatcher [employer] EDMS Guillermina Lunsford Javy Lackey RN RN [facility] Angel Nicholas MD MD rt Corrections: (The following items were deleted from the chart) 15:59 15:45 BP 121 / 64; Pulse 89bpm; Resp 20bpm; Pulse Ox 96% RA; ll1 ll1
[2022-04-13 14:26] LABS: SARS-CoV-2 Antigen Rapid Res Negative (Negative)
[2022-04-13] MEDS ORDERED: NA CHLORIDE 0.9% 250 ML ONE (14:35)
[2022-04-13] MEDS ORDERED: VANCOMYCIN 1 GM/VIAL ONE (14:35)
[2022-04-13 15:50] LABS: Absolute Lymphocytes (CBC) 4.1 K/uL (0.7-4.9); Hematocrit 24.7 % (39.6-49.0); Lymphocytes % 3.1 % (15.3-44.8); MCV 80.2 fL (80-100); MPV 7.2 fL (7.6-11.3); RBC Red Blood Cell Count 3.08 M/uL (4.33-5.43)
[2022-04-13 16:05] LABS: Potassium 4.1 mmol/L (3.5-5.1)
--- NOTE | 2022-04-13 16:47 | P.HP ---
Certification for Inpatient Patient admitted to: Observation Patient will require the following post-hospital care: Home Health Services Practitioner: I am a practitioner with admitting privileges, knowledge of patient current condition, hospital course, and medical plan of care. Services: Services provided to patient in accordance with Admission requirements found in Title 42 Section 412.3 of the Code of Federal Regulations Patient History Date of Service: 04/13/22 Primary Care Provider: Guru Reason for admission: osteomyelitis History of Present Illness: Patient is an unfortunate office patient of mine. He has recently been diagnoised with a lung cancer. The patient was being treated in [facility]. He recently went into [facility] for a spinal osteomyelitis at t8 with compression fracture . He was supposed to have surgery. 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 The patient had flushing of his knee. However the re was concerns about taking him to surgery for the T5 destruction as there was most likely concern for postoperative spread. He was sent home on Vancomycin through a picc line on 04/12/22. His picc line was found beside him on the bed this morning and he came to the ER. Yesterday his wbc was 99 thousand. Today it is 129 thousand Review of Systems 10-point ROS is otherwise unremarkable General: Weakness Physical Examination - Physical Exam General: Alert, In no apparent distress HEENT: Atraumatic, PERRLA, Mucous membr. moist/pink, EOMI, Sclerae nonicteric Neck: Supple, 2+ carotid pulse no bruit, No LAD, Without JVD or thyroid abnormality Respiratory: Clear to auscultation bilaterally, Normal air movement Cardiovascular: Regular rate/rhythm, Normal S1 S2 Gastrointestinal: Normal bowel sounds, No tenderness Musculoskeletal: No tenderness Integumentary: No rashes Neurological: Normal gait, Normal speech, Normal strength at 5/5 x4 extr, Normal tone, Normal affect Lymphatics: No axilla or inguinal lymphadenopathy Assessment and Plan - Problems (Diagnosis) (1) Osteomyelitis Current Visit: Yes Status: Acute Plan: Patient is on vancomycin therapy. Will need a picc line. Which we can get tomorrow. Will send him home. Have discussed with Dr morgan Blood [phone]. The patient had MRSA in the right knee. 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 He was to have neurosurgery. However the infection in the right knee prevented this. Will need to continue his vancomycin therapy Qualifiers: Laterality: unspecified laterality (3) DM2 (diabetes mellitus, type 2) Current Visit: Yes Status: Chronic Plan: He was on glibiride when I met him. Will hold that off and keep him on a sliding scale. Qualifiers: Diabetes mellitus keno terminal operator insulin use: without jail use Diabetes mellitus complication status: without complication Qualified Code(s): E11.9 - Type 2 diabetes mellitus without complications (4) HTN (hypertension) Current Visit: Yes Status: Chronic Plan: BP is low at this time. He was on amlodipine 10mg. will hold it for know and restart in the morning if necessary Qualifiers: Hypertension type: primary hypertension Qualified Code(s): I10 - Essential (primary) hypertension (5) Chronic pain syndrome Current Visit: Yes Status: Acute Plan: Will continue him on dilaudid and adjust as necessary Discharge Plan: Home Plan to discharge in: 24 Hours - Advance Directives Does patient have a Living Will: No Does patient have a Durable POA for Healthcare: No - Code Status/Comfort Care Code Status Assessed: No Code Status: Full Code Physician Review: Patient Assessed, Agree with Above Assessment and Plan Critical Care: No Time Spent Managing Pts Care (In Minutes): 70
[2022-04-13 16:59] LABS: Platelet Estimate ADEQ
[2022-04-13 17:00] LABS: Anisocytosis 1+; Blood Morphology Comment NOTED (NOT SEEN)
[2022-04-13] MEDS ORDERED: HYDROCODONE/APAP 7.5/325 MG TAB PO PRN (17:20)
[2022-04-13] MEDS ORDERED: ONDANSETRON 4 MG/2 ML VIAL IV PRN (17:20)
[2022-04-13 17:23] VITALS: O2SAT 95
[2022-04-13 17:50] VITALS: BMI 31.0
[2022-04-13] MEDS ORDERED: VANCOMYCIN 1.5 GM in NA CHLORIDE 0.9% 500 ML IVPB ONE (18:00)
[2022-04-13] MEDS ORDERED: ENOXAPARIN 40 MG/0.4 ML SQ SCH (18:00)
[2022-04-13] MEDS: HYDROMORPHONE HCL 0.5 MG/0.5 ML INJ IV PRN (21:13)
[2022-04-14] MEDS: HYDROMORPHONE HCL 0.5 MG/0.5 ML INJ IV PRN (01:46)
[2022-04-14] MEDS ORDERED: VANCOMYCIN 1.75 GM in NA CHLORIDE 0.9% 500 ML IVPB SCH ×2 (06:00→09:00)
[2022-04-14] MEDS ORDERED: PANTOPRAZOLE 40MG TABLET PO SCH (07:30)
--- NOTE | 2022-04-14 09:42 | P.DS ---
Admission Date: 04/13/22 Discharge Date: 04/14/22 Primary Care Provider: Guru Disposition: ROUTINE DISCHARGE Discharge Condition: GOOD Reason for Admission: osteomyelitis - Problems (1) Osteomyelitis Current Visit: Yes Status: Acute Qualifiers: Osteomyelitis type: other acute (2) Lung cancer Current Visit: Yes Status: Chronic Qualifiers: Laterality: unspecified laterality (3) DM2 (diabetes mellitus, type 2) Current Visit: Yes Status: Chronic Qualifiers: Diabetes mellitus senior living insulin use: without termite inspector use Diabetes mellitus complication status: without complication Qualified Code(s): E11.9 - Type 2 diabetes mellitus without complications (4) HTN (hypertension) Current Visit: Yes Status: Chronic Qualifiers: Hypertension type: primary hypertension Qualified Code(s): I10 - Essential (primary) hypertension (5) Chronic pain syndrome Current Visit: Yes Status: Acute Brief History of Present Illness: Patient is an unfortunate office patient of World [employer]. He has recently been diagnoised with a lung cancer. The patient was being treated in [facility]. 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 He was supposed to have surgery. 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 The patient had flushing of his knee. However there was concerns about taking him to surgery for the T5 destruction as there was most likely concern for postoperative spread. He was sent home on Vancomycin through a picc line on 04/12/22. His picc line was found beside him on the bed this morning and he came to the ER. Yesterday his wbc was 99 thousand. Today it is 129 thousand Hospital Course: Patient was admitted. Picc line placed in the evening. will give him todays dose of antibiotics. Arrange an ambulance transfer for the patient. Follow up with his hemoncologist and ID. Plans for radiation to his lung cancer. He has may have surgery for the mets and compression fracture of T5-8. He is declining today. Sleeping a lot. His is very agitated. Was demanding to go or she would leave AMA. Would not discuss hospice with the spouse. She has a history of PTST. Will order a hospital bed for the patient. Vital Signs/Physical Exam: Temp Pulse Resp BP Pulse Ox 97.7 F 97 H 16 133/65 91 04/14/22 08:00 04/14/22 08:00 04/14/22 08:00 04/14/22 08:00 04/14/22 08:00 General: Alert, In no apparent distress HEENT: Atraumatic, PERRLA, EOMI Neck: Supple, JVD not distended Respiratory: Clear to auscultation bilaterally, Normal air movement Cardiovascular: Regular rate/rhythm, Normal S1 S2 Gastrointestinal: Normal bowel sounds, No tenderness Musculoskeletal: No tenderness Integumentary: No rashes Neurological: Normal speech, Normal tone, Normal affect Lymphatics: No axilla or inguinal lymphadenopathy Laboratory Data at Discharge: WBC 129.90 K/uL (4.3-10.9) H* 04/13/22 15:35 Hgb 7.7 g/dL (13.6-17.9) L 04/13/22 15:35 Hct 24.7 % (39.6-49.0) L 04/13/22 15:35 Plt Count 387 K/uL (152-406) 04/13/22 15:35 Sodium 135 mmol/L (136-145) L 04/13/22 15:35 Potassium 4.1 mmol/L (3.5-5.1) 04/13/22 15:35 BUN 7 mg/dL (7-18) 04/13/22 15:35 Creatinine 0.76 mg/dL (0.70-1.30) 04/13/22 15:35 Glucose 179 mg/dL (74-106) H 04/13/22 15:35 Home Medications: Amiodarone HCl [Cordarone*] 1 tab PO DAILY 04/13/22 Apixaban [Eliquis] 1 tab PO Q12HR 04/13/22 Duloxetine [Cymbalta *] 1 tab PO DAILY 04/13/22 Gabapentin 1 tab PO TID 04/13/22 Glimepiride 1 mg PO DAILY 04/13/22 Hydrocodone 10/APAP 325 [[place] [address]*] 1 tab PO Q8HR PRN 04/13/22 Iron Polysaccharide Complex [Polysaccharide Iron] 1 tab PO DAILY 04/13/22 Losartan Potassium 1 tab PO DAILY 04/13/22 Melatonin 1 tab PO BEDTIME 04/13/22 Morphine *Extended Release* [MS Contin*] 1 tab PO Q8HR 04/13/22 Pregabalin [Lyrica] 1 tab PO BID 04/13/22 methocarbamoL [Methocarbamol] 2 tab PO BID 04/13/22 Diet: Regular Activity: Ad julio cesar Followup: Jean-Pierre Garvey MD [ACTIVE - CAN ADMIT] - Physician Review: Patient Assessed, Agree with Above Assessment and Plan Time spent managing pt's care (in minutes): 30
[2022-04-14 11:48] VITALS: BP 145/65; TEMP 97.8
--- NOTE | 2022-04-15 11:20 | RAD REPORT ---
EXAM DESCRIPTION: RAD - Chest Single View - 04/14/2022 5:36 am CLINICAL HISTORY: The patient is 71 years old and is Male; PICC TECHNIQUE: Frontal view of the chest. COMPARISON: No relevant prior studies available. FINDINGS: Lungs: Suggestion of right basilar consolidation. Mildly prominent interstitial markings. Pleural space: Blunting of the right costophrenic angle which may indicate a right pleural effus ion. No pneumothorax. Heart: Unremarkable. Mediastinum: Unremarkable. Bones/joints: Unremarkable. Tubes, lines and devices: Right PICC with tip at the cavoatrial junction. IMPRESSION: 1. Suggestion of right basilar consolidation. 2. Blunting of the right costophrenic angle which may indicate a right pleural effusion. 3. Mildly prominent interstitial markings. Electronically signed by: Fredy Fong MD 04/14/2022 5:46 AM ACCOUNT MANAGER EMPLOYEE BENEFITS Due to temporary technical issues with the PACS/Fluency reporting system, reports are being signed by the in house radiologists without review as a courtesy to insure prompt reporting. The interpreting radiologist is fully responsible for the content of the report.
== END 2022-04-14 14:15 | disposition home or self-care (01) ==
LOC: ER 10:30 → ERHOLD 14:06 → 2ND 16:04
PROVIDERS: ADMIT Internal Medicine; ATTEND Internal Medicine
DX: M86.9 Osteomyelitis, unspecified (principal); C34.90 Malignant neoplasm of unspecified part of unspecified bronchus or lung; M46.44 Discitis, unspecified, thoracic region; T82.898A Other specified complication of vascular prosthetic devices, implants and grafts, initial encounter; E11.9 Type 2 diabetes mellitus without complications; I10 Essential (primary) hypertension; G89.4 Chronic pain syndrome; Z96.651 Presence of right artificial knee joint; Z20.822 Contact with and (suspected) exposure to COVID-19
CPT/HCPCS: 96365; 36569; 85025; 80048; 36415; 82947 ×4; 71250; 71045 ×2; 99285; 87811; J1650; J3370 ×4; J1170 ×2; J7050; J7040 ×3; G0378

== ENCOUNTER 2022-04-24 15:04 | Emergency (ER) | payer OTHER ==
--- OUTSIDE RECORDS SUMMARY | 2022-04-24 15:09 | XMS REPORT | Clinical Summary ---
:1950 Author Organization [facility] MD [facility] Address [address] [place] [address] Care Team Providers Name Role Phone Jean-Pierre Garvey MD Unavailable [phone] Allergies Not on File Medications Not [...] Corona MD Clement, Karla Ziegler MD after 04/24/2021 Social History Tobacco Use Types Packs/Day Years [...] 1:41 PM Cancer Re sults for this HUMAN RESOURCES OPERATIONS MANAGER procedure are i n the results section. OSI CT SPINE Routine 02/05/2022 1:41 PM Cancer Results f or this THORACIC HUMAN RESOURCES OPERATIONS MANAGER procedure are i n the results section. OSI CT CHEST Routine 02/02/2022 1:41 PM Cancer Results f or this HUMAN RESOURCES OPERATIONS MANAGER procedure are i n the results section. OSI CT SPINE LUMBAR Routine 02/02/2022 1:41 PM Cancer Re sults for this HUMAN RESOURCES OPERATIONS MANAGER procedure are i n the results section. OSI CT SPINE Routine 02/02/2022 1:41 PM Cancer Results f or this THORACIC HUMAN RESOURCES OPERATIONS MANAGER procedure are i n the results section. OSI CHEST Routine 01/30/2022 3:27 PM Cancer Results f or this HUMAN RESOURCES OPERATIONS MANAGER procedure are i n the results section. OSI MRI SPINE Routine 01/30/2022 3:27 PM Cancer Results for this LUMBAR HUMAN RESOURCES OPERATIONS MANAGER procedure are i n the results section. OSI CT CHEST Routine 01/30/2022 3:26 PM Cancer Results f or this ABDOMEN PELVIS HUMAN RESOURCES OPERATIONS MANAGER procedure are in the results section. OSI CT ABDOMEN AND Routine 12/25/2021 3:27 PM Cancer Res ults for this PELVIS CDT procedure are i n the results section. OSI MRI LOWER EXT Routine 06/18/2021 1:40 PM Cancer Resu lts for this CDT procedure are i n the results section. after 04/24/[address] Spine Thoracic (02/05/2022 1:41 PM HUMAN RESOURCES OPERATIONS MANAGER)Only the most recent of2 results within the time period is included. Specimen (Source) Anatomical Location Collection Method / Collectio n Time Received Time / Laterality Volume Narrative Systemgenerated, Documentation - 022 1:41 PM HUMAN RESOURCES OPERATIONS MANAGER Study acquired at another institution. For comparison only. No MD Gamino originated interpretation requested or a vailable. Jean-Pierre Garvey MD IMG OUTSIDE IMAGE ORDERABLES OSI CT Spine Lumbar (02/05/2022 1:41 PM HUMAN RESOURCES OPERATIONS MANAGER)Only the most recent of2 results within the time period is included. Specimen (Source) Anatomical Location Collection Method / Collectio n Time Received Time / Laterality Volume Narrative Systemgenerated, Documentation - 022 1:42 PM HUMAN RESOURCES OPERATIONS MANAGER Study acquired at another institution. For comparison only. No Stevenson originated interpretation requested or a vailable. Jean-Pierre Garvey MD IMG OUTSIDE IMAGE ORDERABLES OSI CT Chest (02/02/2022 1:41 PM HUMAN RESOURCES OPERATIONS MANAGER) Specimen (Source) Anatomical Location Collection Method / Collectio n Time Received Time / Laterality Volume Narrative Systemgenerated, Documentation - 022 1:41 PM HUMAN RESOURCES OPERATIONS MANAGER Study acquired at another institution. For comparison only. No MD Gamino originated interpretation requested or a vailable. Jean-Pierre DE LA FUENTEG OUTSIDE IMAGE ORDERABLES OSI MRI SPINE LUMBAR (01/30/2022 3:27 PM HUMAN RESOURCES OPERATIONS MANAGER) Specimen (Source) Anatomical Location Collection Method / Collectio n Time Received Time / Laterality Volume Narrative Systemgenerated, Documentation - 023 3:27 PM HUMAN RESOURCES OPERATIONS MANAGER Study acquired at another institution. For comparison only. No MD Gamino originated interpretation requested or a vailable. Jean-Pierre DE LA FUENTEG OUTSIDE IMAGE ORDERABLES OSI Chest (01/30/2022 3:27 PM HUMAN RESOURCES OPERATIONS MANAGER) Specimen (Source) Anatomical Location Collection Method / Collectio n Time Received Time / Laterality Volume Narrative Systemgenerated, Documentation - 023 3:27 PM HUMAN RESOURCES OPERATIONS MANAGER Study acquired at another institution. For comparison only. No MD Gamino originated interpretation requested or a vailable. Jean-Pierre DE LA FUENTEG OUTSIDE IMAGE ORDERABLES OSI CT CHEST ABDOMEN PELVIS (01/30/2022 3:26 PM HUMAN RESOURCES OPERATIONS MANAGER) Specimen (Source) Anatomical Location Collection Method / Collectio n Time Received Time / Laterality Volume Narrative Systemgenerated, Documentation - 023 3:27 PM HUMAN RESOURCES OPERATIONS MANAGER Study acquired at another institution. For comparison only. No MD Gamino originated interpretation requested or a vailable. Jean-Pierre DE LA FUENTEG OUTSIDE IMAGE ORDERABLES OSI CT Abdomen and Pelvis (12/25/2021 3:27 PM CDT) Specimen (Source) Anatomical Location Collection Method / Collectio n Time Received Time / Laterality Volume Narrative Systemgenerated, Documentation - 023 3:27 PM HUMAN RESOURCES OPERATIONS MANAGER Study acquired at another institution. For comparison only. No MD Gamino originated interpretation requested or a vailable. Jean-Pierre OSUNA OUTSIDE IMAGE ORDERABLES OSI MRI Lower Ext (06/18/2021 1:40 PM CDT) Specimen (Source) Anatomical Location Collection Method / Collectio n Time Received Time / Laterality Volume Narrative Systemgenerated, Documentation - 022 1:41 PM HUMAN RESOURCES OPERATIONS MANAGER Study acquired at another institution. For comparison only. No MD Gamino originated interpretation requested or a vailable. 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
[2022-04-24] MEDS ORDERED: NITROGLYCERIN 1 GM PKT TD ONE (15:15)
[2022-04-24] MEDS ORDERED: FUROSEMIDE 100 MG/10 ML VIAL IV ONE (15:15)
[2022-04-24] MEDS ORDERED: RSI MEDICATION KIT IV ONE (15:16)
[2022-04-24 15:42] LABS: Arterial Blood Carboxyhemoglob 1.9 % (0-1.5); Blood Gas Oxyhemoglobin 88.8 % (94-97); Blood O2 Saturation 91.9 % (92-98.5)
--- OUTSIDE RECORDS SUMMARY | 2022-04-24 15:42 | XMS REPORT | Continuity of Care Document ---
:1950 Author Organization [facility] t Address [address] [place] [address] Care Team Providers Name Role Phone Deuce Valentino MD Primary Care Physician CHINYERE LOZANO Attending Clinician Unavailable CHINYERE LOZANO Attending Clinician Unavailable Jean-Pierre Garvey Attending Clinician Unavailable Valentina Sherman Attending Clinician Unavailable Saul Emanuel Rahil Attending Clinician Unavailable [id number] Attending Clinician Unavailable LIZ MOSS Attending Clinician Unavailable LIZ MOSS Attending Clinician Unavailable DARLENE JUAN Attending Clinician Unavailable RAYO LOREDO Attending Clinician Unavailable Doctor Unassigned, [place] Attending Clinician Unavailable Deborah POWELL, [place] Attending [...] Unavailable Betito POWELL, Deuce Chin Attending Clinician [phone] Anastasia Attending Clinician Unavailable Valentina Sherman Attending Clinician [phone] Mamadou Attending Clinician Unavailable Walter Velazquez RN Attending Clinician Unavailable Provider, [facility] Attending Clinician Unavailable POONAM PARKS Attending Clinician Unavailable Poonam Pearson Attending Clinician Rita Devlin MA Attending Clinician Unavailable [facility] Attending Clinician Unavailable Marlo San Attending Clinician Unavailable Johnny [facility], Magaly Attending Clinician Unavailable Joseph Gonzalez MA Attending Clinician Unavailable Roberta Combs RN Attending Clinician Unavailable Maxim Deutsch RN Attending Clinician Unavailable Mikhail Goodwin MD Attending Clinician Sean Goode MD Attending Clinician John POWELL, Mitch Attending Clinician MITCH SHERMAN Attending Clinician Unavailable Bong Morris MD Attending Clinician Wing Dorman MD Attending Clinician [phone] Alize Brenner MD Attending Clinician Kymberly Hastings DO Attending Clinician [phone] Rosalia Sherwood MA Attending Clinician Unavailable Carlos [...] Unavailable Saul Emanuel Rahil Admitting Clinician Unavailable [id number] Admitting Clinician Unavailable LATRICIA STEPHAN NERI Admitting [...] Date Expiration Date S josey WELLMED/UHC DUAL [id number] 2020 COMP HMO D SNP 00:00:00 MEDICAID OF [place] [id number] 2021 00:00:00 UHC WELLMED [id number] 2017 00:00:00 UHWM UHWM [id number] [facility] [id number] Common DUAL [facility] WELLMED [facility] WELLMED GROUP - [id number] 2020 [facility] 00:00:00 (MEDICARE REPLACEMENT/ADVAN TAGE - HMO) [place] [id number] (MEDICAID) [facility] 53 [id number] Common [facility] [id number] - DUAL COMPLETE - DUAL ELIGIBLE - [...] encounter encounter ally from request for surgery [id number] Right Right Disease Active 2021-03 Univers lower lobe lower lobe 04-05 [place] pulmonary [place] infiltr[place]ate 00 Me dical Branch SCC SCC Disease Active 2021-03 Overview: Univer s (squamous (squamous 04-05 Formattin i ty of cell cell 00:00: g of this [place] carcinoma) carcinoma) 00 note Me dical might be Branch different from the original. Added automatic ally from request for surgery [id number] Chronic Chronic Problem Active Jennifer postoperat Postoperat [...] nivers left left 4-18 ity of 00:00: [place] [address] Medical Branch Primary Primary Disease Recurre Univer s osteoarthr osteoarthr nce 4-18 it y of itis of itis of 00:00: [place] right knee right knee 00 Me dical Branch Effusion Effusion Disease Active Unive rs of right of right 4-17 ity of knee knee 00:00: [place] [address] Medical Branch S/P BKA S/P BKA Disease [...] Added automatic ally from request for surgery [id number] Squamous Squamous Disease Active Metho di cell [...] layer exposed exposed Peptic Peptic Problem Active [facility] ulcer Ulcer 8-18 Family 00:00: Practic 00 e Peripheral Peripheral Problem Active 2014-03 [place] vascular Vascular 2- Family disease Disease 00:00: Practic 00 e Diabetic Diabetic Problem Active [facility] renal Renal 6- Family disease Disease 00:00: Practic 00 e 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 6- Rory valera neuropathy Neuropathy 00:00: Pr actic 00 e Chronic Chronic Problem Active [facility] osteomyeli Osteomyeli 6-07 Rory valrea tis of tis of 00:00: Practic lower leg Lower Leg 00 e Hypertensi Hypertensi Problem Active [place] ve renal ve Renal - Family disease Disease 00:00: Practic 00 e Proteinuri Proteinuri Problem Active [place] [facility] c diabetic c Diabetic 05-27 [facility] valera nephropath Nephropath 00:00: Pr actic y y 00 e Chronic Chronic Problem Active [facility] renal Renal 3- Family impairment Impairment 00:00: Pr actic 00 e Benign Benign Problem Active [facility] essential Essential 2-12 Fami ly hypertensi Hypertensi 00:00: Pr actic on on 00 e Ulcer of Ulcer of Problem Active [facility] foot Foot 2-12 Family 00:00: Practic 00 e Diabetes Diabetes Problem Active 2016-12-13 Memoria mellitus-N mellitus-N 02:01:17 l ID ID Active [place] Problem 12/13/2016 [facility] Hypertensi Hypertens Problem Active 2016-12-13 Memoria on ion Active 02:01:17 l Problem [place] 12/13/2016 [facility] Abscess/ce Abscess/c Problem Active 2016-12-13 [facility] llulitis-f ellulitis- 02:01:17 l oot foot [place] Active Problem 12/13/2016 [facility] Ulcer-heel Ulcer-ni Problem Active 2016-12-13 Memoria /midfoot l/midfoot 02:01:17 l Active [place] Problem 12/13/2016 [facility] Arthritis Arthritis Problem Active 2016-12-13 Memoria Active 02:01:17 l Problem [place] 12/13/2016 [facility] Charcot Charcot Problem Active 2016-12-13 Me moria Joint Joint 02:01:17 l Active [place] Problem 12/13/2016 [facility] [id number] Arthritis Problem Com mon of knee [facility] [id number] Calculus Problem Commo n of kidney [facility] [id number] [place] of Problem Commo n right lung [facility] [id number] BPH loc w Problem Com mon urin Spirit obs/LUTS [facility] Type 2 Type 2 Disease Active Last [...] Known DA Active U [facility] Allergie 09-01 [place] s 00:00: [address] No Known DA Active U [facility] Contrast 05-28 [place] Allergie 00:00: Orthope s 00 dic Hospita [...] Active Univers ALLERGIE Class ity of S [facility] Family History Family Member Diagnosis Comments Start Date Stop Date Source Natural father Cirrhosis [facility] Natural mother Cancer [facility] Social History Social Habit Start Date Stop Date Quantity Comments Source History of tobacco Passive smoker Un iversity of use [facility] Exposure to 2022-03-12 2022-03-22 Not sure University of SARS-CoV-2 (event) 00:00:00 15:03:00 [facility] History SDOH 2022-02-06 2022-02-06 1 University o f Financial 00:00:00 00:00:00 [facility] Tobacco Comment 2022-02-02 2022-02-02 quit 1992 Universit y of 00:00:00 00:00:00 [facility] Alcohol intake 2021-09-27 2021-09-27 Ex-drinker [facility] 00:00:00 00:00:00 (finding) Hospital Education 2021-06-18 2021-06-18 21 University of 00:00:00 00:00:00 [facility] Cigarettes smoked 2021-05-26 2021-05-[address] current (pack per 00:00:00 00:00:00 Hospita l day) - Reported Cigarette 2021-05-26 2021-05-26 [facility] pack-years 00:00:00 00:00:00 Hospital Tobacco use and 2021-05-26 2021-05-26 Smokeless [facility] exposure 00:00:00 00:00:00 tobacco non-user Hospital History [facility] Food 2020-11-03 2020-11-[address] Worry 00:00:00 00:00:00 Hospital History [facility] Food 2020-11-03 2020-11-[address] Scarcity 00:00:00 00:00:00 Hospital History [facility] 2020-11-03 2020-11-03 2 [facility] Transport Med 00:00:00 00:00:00 Hospital History [facility] 2020-11-03 2020-11-03 2 [facility] Transport Non-Med 00:00:00 00:00:00 Hospita l History [facility] 2020-11-03 2020-11-03 2 [facility] Housing Unable to 00:00:00 00:00:00 Hospita l Pay History [facility] 2020-11-03 2020-11-03 1 [facility] Housing Places 00:00:00 00:00:00 Hospital Lived History [facility] 2020-11-03 2020-11-03 2 [facility] Housing Homeless 00:00:00 00:00:00 Hospital Last Year TobaccoUse: 2014-09-30 2014-09-30 [facility] Raina gosia 00:00:00 00:00:00 Sex [birth year] Universit y of 00:00:00 00:00:00 [place] MD [facility] Smoking Status Start Date Stop Date Source Never smoked tobacco [facility] Ex-smoker 2021-06-18 00:00:00 2021-06-18 00:00:00 [facility] Medications Ordered Filled Start Stop Current Ordering Indication Dosage Frequency Signature Comments Components Source Medication Medication Date Date Medication? Clinician (SIG) Name Name Maria Isabel 0 Yes [id number] 1mg Take 1 Univers ne 1 mg 1-24 tablet by ity of tablet 00:00: mouth in [place] the Medical morning. Branch dexAMETHaso 2022-0 Yes [id number] 1mg Take 1 Univers ne 1 mg 1-24 tablet by ity of tablet 00:00: mouth in [place] the Medical morning. Branch dexAMETHaso 2022-0 Yes [id number] 1mg Take 1 Univers ne 1 mg 1-24 tablet by ity of tablet 00:00: mouth in [place] the Medical morning. Branch dexAMETHaso 2022-0 Yes [id number] 1mg Take 1 Univers ne 1 mg 1-24 tablet by ity of tablet 00:00: mouth in [place] the Medical morning. Branch dexAMETHaso 2022-0 Yes [id number] 1mg Take 1 Univers ne 1 mg 1-24 tablet by ity of tablet 00:00: mouth in [place] the Medical morning. Branch dexAMETHaso 2022-0 Yes [id number] 1mg Take 1 Univers ne 1 mg 1-24 tablet by ity of tablet 00:00: mouth in [place] the Medical morning. Branch dexAMETHaso 2022-0 Yes [id number] 1mg Take 1 Univers ne 1 mg 1-24 tablet by ity of tablet 00:00: mouth in [place] the Medical morning. Branch dexAMETHaso 2022-0 Yes [id number] 1mg Take 1 Univers ne 1 mg 1-24 tablet by ity of tablet 00:00: mouth in [place] the Medical morning. Branch dexAMETHaso 2022-0 Yes [id number] 1mg Take 1 Univers ne 1 mg 1-24 tablet by ity of tablet 00:00: mouth in [place] the Medical morning. Branch dexAMETHaso 2023-0 Yes [id number] 1mg Take 1 Univers ne 1 mg 1-24 tablet by ity of tablet 00:00: mouth in [place] the Medical morning. Branch dexAMETHaso 2023-0 Yes [id number] 1mg Take 1 Univers ne 1 mg 1-24 tablet by ity of tablet 00:00: mouth in [place] the Medical morning. Branch dexAMETHaso 2023-0 Yes [id number] 1mg Take 1 Univers ne 1 mg 1-24 tablet by ity of tablet 00:00: mouth in [place] the Medical morning. Branch dexAMETHaso 2023-0 Yes [id number] 1mg Take 1 Univers ne 1 mg 1-24 tablet by ity of tablet 00:00: mouth in [place] the Medical morning. Branch dexAMETHaso 2023-0 Yes [id number] 1mg Take 1 Univers ne 1 mg 1-24 tablet by ity of tablet 00:00: mouth in [place] the Medical morning. Branch dexAMETHaso 2023-0 Yes [id number] 1mg Take 1 Univers ne 1 mg 1-24 tablet by ity of tablet 00:00: mouth in [place] the Medical morning. Branch dexAMETHaso 3-0 Yes [id number] 1mg Take 1 Univers ne 1 mg 1-24 tablet by ity of tablet 00:00: mouth in [place] the Medical morning. Branch dexAMETHaso 3-0 Yes [id number] 1mg Take 1 Univers ne 1 mg 1-24 tablet by ity of tablet 00:00: mouth in [place] the Medical morning. Branch dexAMETHaso 2023-0 Yes [id number] 1mg Take 1 Univers ne 1 mg 1-24 tablet by ity of tablet 00:00: mouth in [place] the Medical morning. Branch dexAMETHaso 2023-0 Yes [id number] 1mg Take 1 Univers ne 1 mg 1-24 tablet by ity of tablet 00:00: mouth in [place] the Medical morning. Branch dexAMETHaso 2023-0 Yes [id number] 1mg Take 1 Univers ne 1 mg 1-24 tablet by ity of tablet 00:00: mouth in [place] the Medical morning. Branch dexAMETHaso 2023-0 Yes [id number] 1mg Take 1 Univers ne 1 mg 1-24 tablet by ity of tablet 00:00: mouth in [place] 00 the Medical morning. [place] dexAMETHaso Yes [id number] 1mg Take 1 Univers ne 1 mg 1-24 tablet by ity of tablet 00:00: mouth in [place] 00 the morning. Branch dexAMETHaso 2021- No [id number] 1mg Take 2 Univers ne 0.5 mg 1-24 12-15 tablets by ity of tablet 00:00: 00:00 mouth in [place] 00 :00 the morning Branch for 30 days. dexAMETHaso 2021- No [id number] 1mg Take 1 Univers ne 1 mg 1-24 12-15 tablet by ity of tablet 00:00: 00:00 mouth in [place] 00 :00 the morning [place] for 7 days. contrast 2022- No [id number] Intravenou Univers previously 03-22 s, ONCE, 1 it y of administere 17:00: 16:00 dose, On [place] 0 mL 00 :00 [facility] 03/22/22 at [place] 1100, Routine iopamidol 2022- No [id number] 20mL 20 mL, Univers (ISOVUE-M 03-22 Intratheca ity of 200-20 mL) 16:00: 18:11 l, TITRATE [place] intrathecal 00 :00 - FOR Medical injection PROCEDURE Branc h 20 mL USE, 1 dose, Starting on [place] 03/22/22 at 1000, Until [place] 03/22/22 at 1211, [place], Surgery/Pr ocedure iopamidol 2022- No [id number] 20mL 20 mL, Univers (ISOVUE-M 03-22 Intratheca ity of 200-20 mL) 16:00: 18:11 l, TITRATE [place] intrathecal 00 :00 - FOR Medical injection PROCEDURE Branc h 20 mL USE, 1 dose, Starting on Brianna 03/22/22 at 1000, Until [place] 03/22/22 at 1211, [place], Surgery/Pr ocedure lidocaine 2022- Yes PRN, Univers 1% (PF) 03-22 Starting ity of (XYLOCAINE) 15:31: on [place] injection 09 03/22/[address] [facility] 0931, Branch Until Discontinu ed, Routine lidocaine 2022- No PRN, Univers 1% (PF) 03-22 Starting ity of (XYLOCAINE) 15:31: 10:09 on Brianna Noe as injection 09 :59 03/22/22 at [facility] jessica 0931, Branch Until 03/23/22 at 0409, Routine amLODIPine Yes 10mg Take 10 mg U nivers 10 mg 1-19 by mouth ity of tablet 15:09: in the [place] [address] morning. Medical Branch amLODIPine 0 Yes 10mg Take 10 mg U nivers 10 mg 1-19 by mouth ity of tablet 15:09: in the [place] [address] morning. Medical Branch amLODIPine 0 Yes 10mg Take 10 mg U nivers 10 mg 1-19 by mouth ity of tablet 15:09: in the [place] [address] morning. Medical Branch amLODIPine Yes 10mg Take 10 mg U nivers 10 mg 1-19 by mouth ity of tablet 15:09: in the [place] [address] morning. Medical Branch HYDROcodone 2021-03- No 1{tbl} 1 tablet, Univers -acetaminop 2-15 12-15 Oral, ity of hen (NORCO) 23:15: 22:37 [place]CE, 1 [place] 10-325 mg 00 :00 dose, On Medica l tablet 1 [place] tablet 02/15/22 at 1715, Routine morpHINE (2 [...] by mouth ity of 18:01: at bedtime [place] [id number] as needed Medical for Branch Insomnia. melatonin 2021-03 Yes 3mg Take 3 mg U nivers mg tablet 2-15 by mouth ity of 18:01: at bedtime [place] [id number] as needed Medical for Branch Insomnia. melatonin [...] by mouth ity of 18:01: at bedtime [place] 05 as needed Medical for Branch Insomnia. melatonin 2021-03 Yes 3mg Take 3 mg U nivers mg tablet 2-15 by mouth ity of 18:01: at bedtime [place] 05 as needed Medical for Branch Insomnia. melatonin 2021-03 Yes 3mg Take 3 mg U nivers mg tablet 2-15 by mouth ity of 18:01: at bedtime [place] 05 as needed Medical for Branch Insomnia. [...] ity of tablet 14:32: 00:00 mouth 4 [place] 48 :00 (four) Medical times Branch daily as needed for Other (MUSCLE SPASM). pregabalin 2021-03 No 75mg Take 75 mg Univers (LYRICA) 75 2-15 12-15 by mouth 2 i ty of mg capsule 14:32: 00:00 (two) [place] 48 :00 times Medical daily. Branch insulin 2021-03 Yes 12U 12 Units, Unive rs glargine 2-15 Subcutaneo ity o f (LANTUS 03:00: , [facility], [place] U-100) 00 First dose Medical injection (after [...] Indication s: acute pain glimepiride 2021-03 Yes [id number] 1mg Take 1 Univers (AMARYL) 1 2-15 tablet by ity of mg tablet 00:00: mouth [place] 00 daily with Medical breakfast. Branch pregabalin 2021-03 Yes [id number] 100mg Take 1 Univers 100 mg 2-15 capsule by ity of capsule 00:00: mouth in [place] 00 the Medical morning Branch and 1 capsule in the evening. methocarbam 2021-03 Yes [id number] 1000mg Take 2 Univers oL 500 mg 2-15 tablets by ity of tablet 00:00: mouth 4 [place] 00 (four) Medical times Branch daily. hydroCHLORO 2021-03 Yes [id number] 12.5mg Take 1 Univers thiazide 2-15 tablet by ity of 12.5 mg 00:00: mouth in [place] tablet 00 the Medical morning. Branch losartan 50 2021-03 Yes [id number] 50mg Take 1 Univers mg tablet 2-15 tablet by ity o f 00:00: mouth in [place] 00 the Medical morning. Branch Diclofenac 2021-03 Yes [id number] 1{dose} Apply 1 Univers Sodium 2-15 Dose [...] Indication s: acute pain glimepiride 2021-03 Yes [id number] 1mg Take 1 Univers (AMARYL) 1 2-15 tablet by ity of mg tablet 00:00: mouth [place] 00 daily with Medical breakfast. Branch pregabalin 2021-03 Yes [id number] 100mg Take 1 Univers 100 mg 2-15 capsule by ity of capsule 00:00: mouth in [place] 00 the Medical morning Branch and 1 capsule in the evening. methocarbam 2021-03 Yes [id number] 1000mg Take 2 Univers oL 500 mg 2-15 tablets by ity of tablet 00:00: mouth 4 [place] 00 (four) Medical times Branch daily. hydroCHLORO 2021-03 Yes [id number] 12.5mg Take 1 Univers thiazide 2-15 tablet by ity of 12.5 mg 00:00: mouth in [place] tablet 00 the Medical morning. Branch losartan 50 2021-03 Yes [id number] 50mg Take 1 Univers mg tablet 2-15 tablet by ity o f 00:00: mouth in [place] 00 the Medical morning. Branch Diclofenac 2021-03 Yes [id number] 1{dose} Apply 1 Univers Sodium 2-15 Dose [...] Indication s: acute pain glimepiride 2021-03 Yes [id number] 1mg Take 1 Univers (AMARYL) 1 2-15 tablet by ity of mg tablet 00:00: mouth [place] 00 daily with Medical breakfast. Branch pregabalin 2021-03 Yes [id number] 100mg Take 1 Univers 100 mg 2-15 capsule by ity of capsule 00:00: mouth in [place] 00 the Medical morning Branch and 1 capsule in the evening. methocarbam 2021-03 Yes [id number] 1000mg Take 2 Univers oL 500 mg 2-15 tablets by ity of tablet 00:00: mouth 4 [place] 00 (four) Medical times Branch daily. hydroCHLORO 2021-03 Yes [id number] 12.5mg Take 1 Univers thiazide 2-15 tablet by ity of 12.5 mg 00:00: mouth in [place] tablet 00 the Medical morning. Branch losartan 50 2021-03 Yes [id number] 50mg Take 1 Univers mg tablet 2-15 tablet by ity o f 00:00: mouth in [place] 00 the Medical morning. Branch Diclofenac 2021-03 Yes [id number] 1{dose} Apply 1 Univers Sodium 2-15 Dose [...] Indication s: acute pain glimepiride 2021-03 Yes [id number] 1mg Take 1 Univers (AMARYL) 1 2-15 tablet by ity of mg tablet 00:00: mouth [place] 00 daily with Medical breakfast. Branch pregabalin 2021-03 Yes [id number] 100mg Take 1 Univers 100 mg 2-15 capsule by ity of capsule 00:00: mouth in [place] 00 the Medical morning Branch and 1 capsule in the evening. methocarbam 2021-03 Yes [id number] 1000mg Take 2 Univers oL 500 mg 2-15 tablets by ity of tablet 00:00: mouth 4 [place] 00 (four) Medical times Branch daily. hydroCHLORO 2021-03 Yes [id number] 12.5mg Take 1 Univers thiazide 2-15 tablet by ity of 12.5 mg 00:00: mouth in [place] tablet 00 the Medical morning. Branch losartan 50 2021-03 Yes [id number] 50mg Take 1 Univers mg tablet 2-15 tablet by ity o f 00:00: mouth in [place] 00 the Medical morning. Branch Diclofenac 2021-03 Yes [id number] 1{dose} Apply 1 Univers Sodium 2-15 Dose [...] Indication s: acute pain glimepiride 2021-03 Yes [id number] 1mg Take 1 Univers (AMARYL) 1 2-15 tablet by ity of mg tablet 00:00: mouth [place] 00 daily with Medical breakfast. Branch pregabalin 2021-03 Yes [id number] 100mg Take 1 Univers 100 mg 2-15 capsule by ity of capsule 00:00: mouth in [place] 00 the Medical morning Branch and 1 capsule in the evening. methocarbam 2021-03 Yes [id number] 1000mg Take 2 Univers oL 500 mg 2-15 tablets by ity of tablet 00:00: mouth 4 [place] 00 (four) Medical times Branch daily. hydroCHLORO 2021-03 Yes [id number] 12.5mg Take 1 Univers thiazide 2-15 tablet by ity of 12.5 mg 00:00: mouth in [place] tablet 00 the Medical morning. Branch losartan 50 2021-03 Yes [id number] 50mg Take 1 Univers mg tablet 2-15 tablet by ity o f 00:00: mouth in [place] 00 the Medical morning. Branch Diclofenac 2021-03 Yes [id number] 1{dose} Apply 1 Univers Sodium 2-15 Dose [...] Indication s: acute pain glimepiride 2021-03 Yes [id number] 1mg Take 1 Univers (AMARYL) 1 2-15 tablet by ity of mg tablet 00:00: mouth [place] 00 daily with Medical breakfast. Branch pregabalin 2021-03 Yes [id number] 100mg Take 1 Univers 100 mg 2-15 capsule by ity of capsule 00:00: mouth in [place] 00 the Medical morning Branch and 1 capsule in the evening. methocarbam 2021-03 Yes [id number] 1000mg Take 2 Univers oL 500 mg 2-15 tablets by ity of tablet 00:00: mouth 4 [place] 00 (four) Medical times Branch daily. hydroCHLORO 2021-03 Yes [id number] 12.5mg Take 1 Univers thiazide 2-15 tablet by ity of 12.5 mg 00:00: mouth in [place] tablet 00 the Medical morning. Branch losartan 50 2021-03 Yes [id number] 50mg Take 1 Univers mg tablet 2-15 tablet by ity o f 00:00: mouth in [place] 00 the Medical morning. Branch Diclofenac 2021-03 Yes [id number] 1{dose} Apply 1 Univers Sodium 2-15 Dose [...] tablet by ity of tablet 00:00: mouth [place] 00 every 12 Medical (twelve) Branch hours. Indication s: acute pain glimepiride 2021-03 Yes [id number] 1mg Take 1 Univers (AMARYL) 1 2-15 tablet by ity of mg tablet 00:00: mouth [place] 00 daily with Medical breakfast. Branch pregabalin 2021-03 Yes [id number] 100mg Take 1 Univers 100 mg 2-15 capsule by ity of capsule 00:00: mouth in [place] 00 the Medical morning Branch and 1 capsule in the evening. methocarbam 2021-03 Yes [id number] 1000mg Take 2 Univers oL 500 mg 2-15 tablets by ity of tablet 00:00: mouth 4 [place] 00 (four) Medical times Branch daily. hydroCHLORO 2021-03 Yes [id number] 12.5mg Take 1 Univers thiazide 2-15 tablet by ity of 12.5 mg 00:00: mouth in [place] tablet 00 the Medical morning. Branch losartan 50 2021-03 Yes [id number] 50mg Take 1 Univers mg tablet 2-15 tablet by ity o f 00:00: mouth in [place] 00 the Medical morning. Branch Diclofenac 2021-03 Yes [id number] 1{dose} Apply 1 Univers Sodium 2-15 Dose [...] Indication s: acute pain glimepiride 2021-03 Yes [id number] 1mg Take 1 Univers (AMARYL) 1 2-15 tablet by ity of mg tablet 00:00: mouth [place] 00 daily with Medical breakfast. Branch pregabalin 2021-03 Yes [id number] 100mg Take 1 Univers 100 mg 2-15 capsule by ity of capsule 00:00: mouth in [place] 00 the Medical morning Branch and 1 capsule in the evening. methocarbam 2021-03 Yes [id number] 1000mg Take 2 Univers oL 500 mg 2-15 tablets by ity of tablet 00:00: mouth 4 [place] 00 (four) Medical times Branch daily. hydroCHLORO 2021-03 Yes [id number] 12.5mg Take 1 Univers thiazide 2-15 tablet by ity of 12.5 mg 00:00: mouth in [place] tablet 00 the Medical morning. Branch losartan 50 2021-03 Yes [id number] 50mg Take 1 Univers mg tablet 2-15 tablet by ity o f 00:00: mouth in [place] 00 the Medical morning. Branch Diclofenac 2021-03 Yes [id number] 1{dose} Apply 1 Univers Sodium 2-15 Dose [...] Indication s: acute pain glimepiride 2021-03 Yes [id number] 1mg Take 1 Univers (AMARYL) 1 2-15 tablet by ity of mg tablet 00:00: mouth [place] 00 daily with Medical breakfast. Branch pregabalin 2021-03 Yes [id number] 100mg Take 1 Univers 100 mg 2-15 capsule by ity of capsule 00:00: mouth in [place] 00 the Medical morning Branch and 1 capsule in the evening. methocarbam 2021-03 Yes [id number] 1000mg Take 2 Univers oL 500 mg 2-15 tablets by ity of tablet 00:00: mouth 4 [place] 00 (four) Medical times Branch daily. hydroCHLORO 2021-03 Yes [id number] 12.5mg Take 1 Univers thiazide 2-15 tablet by ity of 12.5 mg 00:00: mouth in [place] tablet 00 the Medical morning. Branch losartan 50 2021-03 Yes [id number] 50mg Take 1 Univers mg tablet 2-15 tablet by ity o f 00:00: mouth in [place] 00 the Medical morning. Branch Diclofenac 2021-03 Yes [id number] 1{dose} Apply 1 Univers Sodium 2-15 Dose [...] Indication s: acute pain glimepiride 2021-03 Yes [id number] 1mg Take 1 Univers (AMARYL) 1 2-15 tablet by ity of mg tablet 00:00: mouth [place] 00 daily with Medical breakfast. Branch pregabalin 2021-03 Yes [id number] 100mg Take 1 Univers 100 mg 2-15 capsule by ity of capsule 00:00: mouth in [place] 00 the Medical morning Branch and 1 capsule in the evening. methocarbam 2021-03 Yes [id number] 1000mg Take 2 [facility] oL 500 mg 2-15 tablets by ity of tablet 00:00: mouth 4 [place] 00 (four) Medical times Branch daily. hydroCHLORO 2021-03 Yes [id number] 12.5mg Take 1 [facility] thiazide 2-15 tablet by ity of 12.5 mg 00:00: mouth in [place] [facility] 00 the Medical morning. Branch losartan 50 2021-03 Yes [id number] 50mg Take 1 [facility] mg tablet 2-15 tablet by ity o f 00:00: mouth in [place] 00 the Medical morning. Branch Diclofenac 2021-03 Yes [id number] 1{dose} Apply 1 [facility] Sodium 2-15 Dose [...] Indication s: acute pain glimepiride 2021-03 Yes [id number] 1mg Take 1 [facility] (AMARYL) 1 2-15 tablet by ity of mg tablet 00:00: mouth [place] 00 daily with Medical breakfast. Branch pregabalin 2021-03 Yes [id number] 100mg Take 1 [facility] 100 mg 2-15 capsule by ity of capsule 00:00: mouth in [place] 00 the Medical morning Branch and 1 capsule in the evening. methocarbam 2021-03 Yes [id number] 1000mg Take 2 [facility] oL 500 mg 2-15 tablets by ity of tablet 00:00: mouth 4 [place] 00 (four) Medical times Branch daily. hydroCHLORO 2021-03 Yes [id number] 12.5mg Take 1 [facility] thiazide 2-15 tablet by ity of 12.5 mg 00:00: mouth in [place] tablet 00 the Medical morning. Branch losartan 50 2021-03 Yes [id number] 50mg Take 1 [facility] mg tablet 2-15 tablet by ity o f 00:00: mouth in [place] 00 the Medical morning. Branch Diclofenac 2021-03 Yes [id number] 1{dose} Apply 1 [facility] Sodium 2-15 Dose [...] tablet by ity of tablet 00:00: mouth [place] 00 every 12 Medical (twelve) Branch hours. Indication s: acute pain glimepiride 2021-03 Yes [id number] 1mg Take 1 [facility] (AMARYL) 1 2-15 tablet by ity of mg tablet 00:00: mouth [place] 00 daily with Medical breakfast. Branch pregabalin 2021-03 Yes [id number] 100mg Take 1 [facility] 100 mg 2-15 capsule by ity of capsule 00:00: mouth in [place] 00 the Medical morning Branch and 1 capsule in the evening. methocarbam 2021-03 Yes [id number] 1000mg Take 2 [facility] oL 500 mg 2-15 tablets by ity of tablet 00:00: mouth 4 [place] 00 (four) Medical times Branch daily. hydroCHLORO 2021-03 Yes [id number] 12.5mg Take 1 [facility] thiazide 2-15 tablet by ity of 12.5 mg 00:00: mouth in [place] tablet 00 the Medical morning. Branch losartan 50 2021-03 Yes [id number] 50mg Take 1 [facility] mg tablet 2-15 tablet by ity o f 00:00: mouth in [place] 00 the Medical morning. Branch Diclofenac 2021-03 Yes [id number] 1{dose} Apply 1 [facility] Sodium 2-15 Dose [...] Indication s: acute pain glimepiride 2021-03 Yes [id number] 1mg Take 1 [facility] (AMARYL) 1 2-15 tablet by ity of mg tablet 00:00: mouth [place] 00 daily with Medical breakfast. Branch pregabalin 2021-03 Yes [id number] 100mg Take 1 [facility] 100 mg 2-15 capsule by ity of capsule 00:00: mouth in [place] 00 the Medical morning Branch and 1 capsule in the evening. methocarbam 2021-03 Yes [id number] 1000mg Take 2 [facility] oL 500 mg 2-15 tablets by ity of tablet 00:00: mouth 4 [place] 00 (four) Medical times Branch daily. hydroCHLORO 2021-03 Yes [id number] 12.5mg Take 1 [facility] thiazide 2-15 tablet by ity of 12.5 mg 00:00: mouth in [place] tablet 00 the Medical morning. Branch losartan 50 2021-03 Yes [id number] 50mg Take 1 [facility] mg tablet 2-15 tablet by ity o f 00:00: mouth in [place] 00 the Medical morning. Branch Diclofenac 2021-03 Yes [id number] 1{dose} Apply 1 [facility] Sodium 2-15 Dose [...] Indication s: acute pain glimepiride 2021-03 Yes [id number] 1mg Take 1 [facility] (AMARYL) 1 2-15 tablet by ity of mg tablet 00:00: mouth [place] 00 daily with Medical breakfast. Branch pregabalin 2021-03 Yes [id number] 100mg Take 1 [facility] 100 mg 2-15 capsule by ity of capsule 00:00: mouth in [place] 00 the Medical morning Branch and 1 capsule in the evening. methocarbam 2021-03 Yes [id number] 1000mg Take 2 [facility] oL 500 mg 2-15 tablets by ity of tablet 00:00: mouth 4 [place] 00 (four) Medical times Branch daily. hydroCHLORO 2021-03 Yes [id number] 12.5mg Take 1 [facility] thiazide 2-15 tablet by ity of 12.5 mg 00:00: mouth in [place] tablet 00 the Medical morning. Branch losartan 50 2021-03 Yes [id number] 50mg Take 1 [facility] mg tablet 2-15 tablet by ity o f 00:00: mouth in [place] 00 the Medical morning. Branch Diclofenac 2021-03 Yes [id number] 1{dose} Apply 1 [facility] Sodium 2-15 Dose [...] Indication s: acute pain glimepiride 2021-03 Yes [id number] 1mg Take 1 [facility] (AMARYL) 1 2-15 tablet by ity of mg tablet 00:00: mouth [place] 00 daily with Medical breakfast. Branch pregabalin 2021-03 Yes [id number] 100mg Take 1 [facility] 100 mg 2-15 capsule by ity of capsule 00:00: mouth in [place] 00 the Medical morning Branch and 1 capsule in the evening. methocarbam 2021-03 Yes [id number] 1000mg Take 2 [facility] oL 500 mg 2-15 tablets by ity of tablet 00:00: mouth 4 [place] 00 (four) Medical times Branch daily. hydroCHLORO 2021-03 Yes [id number] 12.5mg Take 1 [facility] thiazide 2-15 tablet by ity of 12.5 mg 00:00: mouth in [place] tablet 00 the Medical morning. Branch losartan 50 2021-03 Yes [id number] 50mg Take 1 [facility] mg tablet 2-15 tablet by ity o f 00:00: mouth in [place] 00 the Medical morning. Branch Diclofenac 2021-03 Yes [id number] 1{dose} Apply 1 [facility] Sodium 2-15 Dose [...] Indication s: acute pain glimepiride 2021-03 Yes [id number] 1mg Take 1 [facility] (AMARYL) 1 2-15 tablet by ity of mg tablet 00:00: mouth [place] 00 daily with Medical breakfast. Branch pregabalin 2021-03 Yes [id number] 100mg Take 1 [facility] 100 mg 2-15 capsule by ity of capsule 00:00: mouth in [place] 00 the Medical morning Branch and 1 capsule in the evening. methocarbam 2021-03 Yes [id number] 1000mg Take 2 [facility] oL 500 mg 2-15 tablets by ity of tablet 00:00: mouth 4 [place] 00 (four) Medical times Branch daily. hydroCHLORO 2021-03 Yes [id number] 12.5mg Take 1 [facility] thiazide 2-15 tablet by ity of 12.5 mg 00:00: mouth in [place] tablet 00 the Medical morning. Branch losartan 50 2021-03 Yes [id number] 50mg Take 1 [facility] mg tablet 2-15 tablet by ity o f 00:00: mouth in [place] 00 the Medical morning. Branch Diclofenac 2021-03 Yes [id number] 1{dose} Apply 1 [facility] Sodium 2-15 Dose [...] Indication s: acute pain glimepiride 2021-03 Yes [id number] 1mg Take 1 [facility] (AMARYL) 1 2-15 tablet by ity of mg tablet 00:00: mouth [place] 00 daily with Medical breakfast. Branch pregabalin 2021-03 Yes [id number] 100mg Take 1 [facility] 100 mg 2-15 capsule by ity of capsule 00:00: mouth in [place] 00 the Medical morning Branch and 1 capsule in the evening. methocarbam 2021-03 Yes [id number] 1000mg Take 2 [facility] oL 500 mg 2-15 tablets by ity of tablet 00:00: mouth 4 [place] 00 (four) Medical times Branch daily. hydroCHLORO 2021-03 Yes [id number] 12.5mg Take 1 [facility] thiazide 2-15 tablet by ity of 12.5 mg 00:00: mouth in [place] tablet 00 the Medical morning. Branch losartan 50 2021-03 Yes [id number] 50mg Take 1 [facility] mg tablet 2-15 tablet by ity o f 00:00: mouth in [place] 00 the Medical morning. Branch Diclofenac 2021-03 Yes [id number] 1{dose} Apply 1 [facility] Sodium 2-15 Dose [...] Indication s: acute pain glimepiride 2021-03 Yes [id number] 1mg Take 1 [facility] (AMARYL) 1 2-15 tablet by ity of mg tablet 00:00: mouth [place] 00 daily with Medical breakfast. Branch pregabalin 2021-03 Yes [id number] 100mg Take 1 [facility] 100 mg 2-15 capsule by ity of capsule 00:00: mouth in [place] 00 the Medical morning Branch and 1 capsule in the evening. methocarbam 2021-03 Yes [id number] 1000mg Take 2 [facility] oL 500 mg 2-15 tablets by ity of tablet 00:00: mouth 4 [place] 00 (four) Medical times Branch daily. hydroCHLORO 2021-03 Yes [id number] 12.5mg Take 1 [facility] thiazide 2-15 tablet by ity of 12.5 mg 00:00: mouth in [place] tablet 00 the Medical morning. Branch losartan 50 2021-03 Yes [id number] 50mg Take 1 [facility] mg tablet 2-15 tablet by ity o f 00:00: mouth in [place] 00 the Medical morning. Branch Diclofenac 2021-03 Yes [id number] 1{dose} Apply 1 [facility] Sodium 2-15 Dose [...] Indication s: acute pain glimepiride 2021-03 Yes [id number] 1mg Take 1 [facility] (AMARYL) 1 2-15 tablet by ity of mg tablet 00:00: mouth [place] 00 daily with Medical breakfast. Branch pregabalin 2021-03 Yes [id number] 100mg Take 1 [facility] 100 mg 2-15 capsule by ity of capsule 00:00: mouth in [place] 00 the Medical morning Branch and 1 capsule in the evening. methocarbam 2021-03 Yes [id number] 1000mg Take 2 [facility] oL 500 mg 2-15 tablets by ity of tablet 00:00: mouth 4 [place] 00 (four) Medical times Branch daily. hydroCHLORO 2021-03 Yes [id number] 12.5mg Take 1 [facility] thiazide 2-15 tablet by ity of 12.5 mg 00:00: mouth in [place] tablet 00 the Medical morning. Branch losartan 50 2021-03 Yes [id number] 50mg Take 1 [facility] mg tablet 2-15 tablet by ity o f 00:00: mouth in [place] 00 the Medical morning. Branch Diclofenac 2021-03 Yes [id number] 1{dose} Apply 1 [facility] Sodium 2-15 Dose [...] Indication s: acute pain glimepiride 2021-03 Yes [id number] 1mg Take 1 [facility] (AMARYL) 1 2-15 tablet by ity of mg tablet 00:00: mouth [place] 00 daily with Medical breakfast. Branch pregabalin 2021-03 Yes [id number] 100mg Take 1 [facility] 100 mg 2-15 capsule by ity of capsule 00:00: mouth in [place] 00 the Medical morning Branch and 1 capsule in the evening. methocarbam 2021-03 Yes [id number] 1000mg Take 2 [facility] oL 500 mg 2-15 tablets by ity of tablet 00:00: mouth 4 [place] 00 (four) Medical times Branch daily. hydroCHLORO 2021-03 Yes [id number] 12.5mg Take 1 [facility] thiazide 2-15 tablet by ity of 12.5 mg 00:00: mouth in [place] tablet 00 the Medical morning. Branch losartan 50 2021-03 Yes [id number] 50mg Take 1 [facility] mg tablet 2-15 tablet by ity o f 00:00: mouth in [place] 00 the Medical morning. Branch Diclofenac 2021-03 Yes [id number] 1{dose} Apply 1 [facility] Sodium 2-15 Dose [...] Indication s: acute pain glimepiride 2021-03 Yes [id number] 1mg Take 1 [facility] (AMARYL) 1 2-15 tablet by ity of mg tablet 00:00: mouth [place] 00 daily with Medical breakfast. Branch pregabalin 2021-03 Yes [id number] 100mg Take 1 [facility] 100 mg 2-15 capsule by ity of capsule 00:00: mouth in [place] 00 the Medical morning Branch and 1 capsule in the evening. methocarbam 2021-03 Yes [id number] 1000mg Take 2 [facility] oL 500 mg 2-15 tablets by ity of tablet 00:00: mouth 4 [place] 00 (four) Medical times Branch daily. hydroCHLORO 2021-03 Yes [id number] 12.5mg Take 1 [facility] thiazide 2-15 tablet by ity of 12.5 mg 00:00: mouth in [place] tablet 00 the Medical morning. Branch losartan 50 2021-03 Yes [id number] 50mg Take 1 [facility] mg tablet 2-15 tablet by ity o f 00:00: mouth in [place] 00 the Medical morning. Branch Diclofenac 2021-03 Yes [id number] 1{dose} Apply 1 [facility] Sodium 2-15 Dose [...] Indication s: acute pain glimepiride 2021-03 Yes [id number] 1mg Take 1 [facility] (AMARYL) 1 2-15 tablet by ity of mg tablet 00:00: mouth [place] 00 daily with Medical breakfast. Branch pregabalin 2021-03 Yes [id number] 100mg Take 1 [facility] 100 mg 2-15 capsule by ity of capsule 00:00: mouth in [place] 00 the Medical morning Branch and 1 capsule in the evening. methocarbam 2021-03 Yes [id number] 1000mg Take 2 [facility] oL 500 mg 2-15 tablets by ity of tablet 00:00: mouth 4 [place] 00 (four) Medical times Branch daily. hydroCHLORO 2021-03 Yes [id number] 12.5mg Take 1 [facility] thiazide 2-15 tablet by ity of 12.5 mg 00:00: mouth in [place] tablet 00 the Medical morning. Branch losartan 50 2021-03 Yes [id number] 50mg Take 1 [facility] mg tablet 2-15 tablet by ity o f 00:00: mouth in [place] 00 the Medical morning. Branch Diclofenac 2021-03 Yes [id number] 1{dose} Apply 1 [facility] Sodium 2-15 Dose [...] Indication s: chronic pain DULoxetine 2021-03- Yes [id number] 20mg Take 1 [facility] (CYMBALTA) 2-15 01-15 capsule by it y of 20 mg 00:00: 05:59 mouth in [place] capsule 00 :00 the Medical morning Branch for 30 days. ibuprofen 2021-03- Yes [id number] 600mg Take 1 [facility] 600 mg 2-15 01-15 tablet by ity of tablet 00:00: 05:59 mouth [place] 00 :00 every 6 Medical (six) Branch hours as needed for Pain (scale 4-6) for up to 30 days. DULoxetine 2021-03- Yes [id number] 20mg Take 1 [facility] (CYMBALTA) 2-15 01-15 capsule by it y of 20 mg 00:00: 05:59 mouth in [place] capsule 00 :00 the Medical morning Branch for 30 days. ibuprofen 2021-03- Yes [id number] 600mg Take 1 [facility] 600 mg 2-15 01-15 tablet by ity of tablet 00:00: 05:59 mouth [place] 00 :00 every 6 Medical (six) Branch hours as needed for Pain (scale 4-6) for up to 30 days. DULoxetine 2021-03- Yes [id number] 20mg Take 1 [facility] (CYMBALTA) 2-15 01-15 capsule by it y of 20 mg 00:00: 05:59 mouth in [place] capsule 00 :00 the Medical morning Branch for 30 days. ibuprofen 2021-03- Yes [id number] 600mg Take 1 [facility] 600 mg 2-15 01-15 tablet by ity of tablet 00:00: 05:59 mouth [place] 00 :00 every 6 Medical (six) Branch hours as needed for Pain (scale 4-6) for up to 30 days. DULoxetine 2021-03- Yes [id number] 20mg Take 1 [facility] (CYMBALTA) 2-15 01-15 capsule by it y of 20 mg 00:00: 05:59 mouth in [place] capsule 00 :00 the Medical morning Branch for 30 days. ibuprofen 2021-03- Yes [id number] 600mg Take 1 [facility] 600 mg 2-15 -15 tablet by ity of tablet 00:00: 05:59 mouth [place] 00 :00 every 6 Medical (six) Branch hours as needed for Pain (scale 4-6) for up to 30 days. DULoxetine 2021-03- Yes [id number] 20mg Take 1 [facility] (CYMBALTA) 2-15 -15 capsule by it y of 20 mg 00:00: 05:59 mouth in [place] capsule 00 :00 the Medical morning Branch for 30 days. ibuprofen 2021-03- Yes [id number] 600mg Take 1 [facility] 600 mg 2-15 -15 tablet by ity of tablet 00:00: 05:59 mouth [place] 00 :00 every 6 Medical (six) Branch hours as needed for Pain (scale 4-6) for up to 30 days. DULoxetine 2021-03- Yes [id number] 20mg Take 1 [facility] (CYMBALTA) 2-15 -15 capsule by it y of 20 mg 00:00: 05:59 mouth in [place] capsule 00 :00 the Medical morning Branch for 30 days. ibuprofen 2021-03- Yes [id number] 600mg Take 1 [facility] 600 mg 2-15 -15 tablet by ity of tablet 00:00: 05:59 mouth [place] 00 :00 every 6 Medical (six) Branch hours as needed for Pain (scale 4-6) for up to 30 days. DULoxetine 2021-03- Yes [id number] 20mg Take 1 [facility] (CYMBALTA) 2-15 -15 capsule by it y of 20 mg 00:00: 05:59 mouth in [place] capsule 00 :00 the Medical morning Branch for 30 days. ibuprofen 2021-03- Yes [id number] 600mg Take 1 [facility] 600 mg 2-15 -15 tablet by ity of tablet 00:00: 05:59 mouth [place] 00 :00 every 6 Medical (six) Branch hours as needed for Pain (scale 4-6) for up to 30 days. DULoxetine 2021-03- Yes [id number] 20mg Take 1 [facility] (CYMBALTA) 2-15 -15 capsule by it y of 20 mg 00:00: 05:59 mouth in [place] capsule 00 :00 the Medical morning Branch for 30 days. ibuprofen 2021-03- Yes [id number] 600mg Take 1 [facility] 600 mg 2-15 -15 tablet by ity of tablet 00:00: 05:59 mouth [place] 00 :00 every 6 Medical (six) Branch hours as needed for Pain (scale 4-6) for up to 30 days. DULoxetine 2021-03- Yes [id number] 20mg Take 1 [facility] (CYMBALTA) 2-15 -15 capsule by it y of 20 mg 00:00: 05:59 mouth in [place] capsule 00 :00 the Medical morning Branch for 30 days. ibuprofen 2021-03- Yes [id number] 600mg Take 1 [facility] 600 mg 2-15 -15 tablet by ity of tablet 00:00: 05:59 mouth [place] 00 :00 every 6 Medical (six) Branch hours as needed for Pain (scale 4-6) for up to 30 days. DULoxetine 2021-03- Yes [id number] 20mg Take 1 [facility] (CYMBALTA) 2-15 -15 capsule by it y of 20 mg 00:00: 05:59 mouth in [place] capsule 00 :00 the Medical morning Branch for 30 days. ibuprofen 2021-03- Yes [id number] 600mg Take 1 [facility] 600 mg 2-15 -15 tablet by ity of tablet 00:00: 05:59 mouth [place] 00 :00 every 6 Medical (six) Branch hours as needed for Pain (scale 4-6) for up to 30 days. DULoxetine 2021-03- Yes [id number] 20mg Take 1 [facility] (CYMBALTA) 2-15 -15 capsule by it y of 20 mg 00:00: 05:59 mouth in [place] capsule 00 :00 the Medical morning Branch for 30 days. ibuprofen 2021-03- Yes [id number] 600mg Take 1 [facility] 600 mg 2-15 -15 tablet by ity of tablet 00:00: 05:59 mouth [place] 00 :00 every 6 Medical (six) Branch hours as needed for Pain (scale 4-6) for up to 30 days. DULoxetine 2021-03- Yes [id number] 20mg Take 1 [facility] (CYMBALTA) 2-15 -15 capsule by it y of 20 mg 00:00: 05:59 mouth in [place] capsule 00 :00 the Medical morning Branch for 30 days. ibuprofen 2021-03- Yes [id number] 600mg Take 1 [facility] 600 mg 2-15 -15 tablet by ity of tablet 00:00: 05:59 mouth [place] 00 :00 every 6 Medical (six) Branch hours as needed for Pain (scale 4-6) for up to 30 days. dexAMETHaso 2021-03- Yes [id number] Take 1 [facility] ne 4 mg 2-15 -05 tablet by ity of tablet 00:00: 05:59 mouth [place] 00 :00 every 12 Medical (twelve) Branch hours for 6 days, THEN 1 tablet daily for 7 days, THEN 0.5 tablets daily for 7 days. dexAMETHaso 2021-03- Yes [id number] Take 1 [facility] ne 4 mg 2-15 -05 tablet by ity of tablet 00:00: 05:59 mouth [place] 00 :00 every 12 Medical (twelve) Branch hours for 6 days, THEN 1 tablet daily for 7 days, THEN 0.5 tablets daily for 7 days. dexAMETHaso 2021-03- Yes [id number] Take 1 [facility] ne 4 mg 2-15 [...] acute pain, chronic pain dexAMETHaso 2021-03- No [id number] Take 1 [facility] ne 4 mg 2-15 12-15 tablet by ity of tablet 00:00: 00:00 mouth [place] 00 :00 every 12 Medical (twelve) Branch hours for 6 days, THEN 1 tablet daily for 7 days, THEN ? tablet daily for 7 days. losartan-hy 2021-03- No [id number] 1{tbl} Take 1 [facility] drochloroth 2-15 12-15 tablet by it y of iazide 00:00: 00:00 mouth in [place] 50-12.5 mg 00 :00 the Medical per tablet morning. Branc h losartan 50 2021-03- No [id number] 50mg Take 1 [facility] mg tablet 2-15 12-15 tablet by ity of 00:00: 00:00 mouth in [place] 00 :00 the Medical morning. Branch hydroCHLORO 2021-03- No [id number] 12.5mg Take 1 [facility] thiazide 2-15 12-15 tablet by ity o f 12.5 mg 00:00: 00:00 mouth in [place] tablet 00 :00 the Medical morning. Branch buprenorphi 2021-03- No [id number] 750 [facility] ne HCL 2-15 12-15 mcg in ity of (BELCA) 00:00: 00:00 cheeks 2 Noe as 750 mcg 00 :00 (two) Medical Film times Branch daily. Indication s: chronic pain sennosides- 2021-03 Yes 1{tbl} 1 tablet, Univers docusate 2-14 Oral, ity of sodium 15:00: DAILY, [place] (SENOKOT-S) 00 First dose Me dical 8.6-50 mg on Sat per tablet 02/14/22 1 tablet at 0900, Until Discontinu ed, Routine bisacodyL 2021-03 Yes 5mg 5 mg, Univers (DULCOLAX) 2-14 Oral, ity of tablet 5 mg 14:19: QDAILYPRN, [place] 59 Starting Medical on Sat02/14/22 at 0819, Until Discontinu ed, Routine, Constipati on insulin 2021-03- No 10U 10 Units, Univ ers glargine 2- 12-14 Subcutaneo ity of (LANTUS 03:00: 18:03 us, QHS, [place] U-100) 00 :35 First dose Medical injection (after Branch 10 Units last modificati on) on Sat02/13/22 at 2100, Until Discontinu ed, Routine contrast 2021-03- No [id number] Intravenou Univers previously 2- 12-13 s, ONCE, 1 it y of administere 23:45: 23:45 dose, On [place] d 0 mL 00 :00 Sat [facility] 02/13/22 Branch at 1745, Routine Sliding 2021-03 [...] 2-12 Oral, ity of (DECADRON) 14:00: Q12H, [place] tablet 8 mg 00 First dose Me [...] ity of bolus 12:07: PRN - SEE [place] infusion 02 INSTRUCTIO Medic al 250 mL [...] ity of bolus 12:07: PRN - SEE [place] infusion 02 INSTRUCTIO Medic al 250 mL [...] KIT) 00 Starting Medical injection 1 on [facility] 02/12/22 at 0607, Until Discontinu ed, R[place]ALL, Blood Glucose < or = 70 mg/dL and patient is unable to swallow or has mental changes. glucagon 2021-03 Yes 1mg 1 mg, Univers (GLUCAGEN 2-12 Intramuscu ity of DIAGNOSTIC 12:07: lar, PRN, [place] KIT) 00 Starting Medical injection 1 on [facility] 02/12/22 at 0607, Until Discontinu ed, RANDALL, Blood Glucose < or = 70 mg/dL and patient is unable to swallow or has mental changes. Sliding 2021-03- No Subcutaneo Uni vers Scale 04-1512 us, Q4H ity of Insulin - 05:00: 12:07 ABX, First [place] Lispro 00 :41 dose Medical (HumaLOG) + (after Branch Fsbg last Testing modificati on) on [place] 02/11/22 at 2300, Until Discontinu ed, Routine insulin 2021-03 Yes 10U 10 Units, Unive rs glargine -12 Subcutaneo ity o f (LANTUS 03:00: us, [facility], [place] U-100) 00 First dose Medical injection (after Branch 10 Units last modificati on) on [place] 02/11/22 at 2100, Until Discontinu ed, Routine insulin 2021-03- No 10U 10 Units, Univ ers glargine 04-15-13 Subcutaneo ity of (LANTUS 03:00: 12:07 us, Q, [place] U-100) 00 :05 First dose Medical injection [...] Oral, ity of 12 hr 02:00: Q12H, [place] tablet 45 00 First dose Medi jessica mg (after Branch last modificati on) on 02/11/22 at 2000, Until Discontinu ed, Routine Sliding 2021-03 No Subcutaneo Uni vers Scale 04-14 us, Q4H, ity of Insulin - 23:15: 02:28 First dose [place] Lispro 00 :59 (after Medical (HumaLOG) + last Branch Fsbg modificati Testing on) on [place] 02/11/22 at 1715, Until Discontinu ed, Routine dexamethaso 2021-03- No 10mg 10 mg, Uni vers ne sod phos 04-14 Intravenou i ty of PF 17:45: 17:59 s, ONCE, 1 [place] injection 00 :00 dose, On Medica l 10 mg [place] Branch 02/11/22 at 1145, 1 mL morpHINE [...] Pain (scale 4-6), PACU iopamidol 2021-03- No [id number] 80mL 80 mL, Univers (ISOVUE 04-12 Intravenou [...] Until Discontinu ed, Routine methocarbam 2021-03- Yes [id number] 1000mg Take 1,000 [facility] oL 1,000 mg 2-08 03-09 mg by ity of Tab 00:00: 05:59 mouth 4 [place] 00 :00 (four) Medical times Branch daily for 90 days. pregabalin 2021-03- Yes [id number] 100mg Take 1 [facility] 100 mg 2-08 03-09 capsule by ity of capsule 00:00: 05:59 mouth in [place] 00 :00 the Medical morning Branch and 1 capsule in the evening. Do all this for 90 days. methocarbam 2021-03- Yes [id number] 1000mg Take 1,000 [facility] oL 1,000 mg 2-08 03-09 mg by ity of Tab 00:00: 05:59 mouth 4 [place] 00 :00 (four) Medical times Branch daily for 90 days. pregabalin 2021-03- Yes [id number] 100mg Take 1 [facility] 100 mg 2-08 [...] Indication s: acute pain methocarbam 2021-03- No [id number] 1000mg Take 1,000 [facility] oL 1,000 mg 2-08 12-15 mg by ity of Tab 00:00: 00:00 mouth 4 [place] 00 :00 (four) Medical times Branch daily for 90 days. pregabalin 2021-03- No [id number] 100mg Take 1 [facility] 100 mg 2 12-15 capsule by ity of capsule 00:00: 00:00 mouth in [place] 00 :00 the Medical morning Branch and [...] 2000, Until Discontinu ed, Routine iopamidol 2021-03 [id number] 80mL 80 mL, Univers (ISOVUE 04-08 Intravenou [...] :54 First dose Medi jessica mg on [place] Branch 02/04/22 at 2000, Until Discontinu ed, Routine HYDROcodone 2021-03 No 1{tbl} 1 tablet, Univers -acetaminop 04-0704 Oral, Q4H, i ty of hen (NORCO) 18:00: 19:33 First dose [place] 10-325 mg 00 :08 (after Medical tablet 1 last Branch tablet modificati on) on [place] 02/04/22 at 1200, Until Discontinu ed, Routine methocarbam 2021-03 No 500mg 500 mg, U nivers oL 04-0606 Oral, QID, ity of (ROBAXIN) 18:00: 16:18 First dose [place] tablet 500 00 :11 on [facility] Medical mg 02/03/22 at Branch 1200, Until Discontinu ed, Routine melatonin 2021-03 Yes 3mg 3 mg, Univers (MELATIN) 2 Oral, ity of tablet 3 mg 16:00: QHSPRN, [place] 03 Starting Medical on [facility] Branch 02/03/22 at 1000, Until Discontinu ed, Routine, Insomnia melatonin 2021-03 Yes 3mg 3 mg, Univers (MELATIN) 2 Oral, ity of tablet 3 mg 16:00: QHSPRN, [place] 03 Starting Medical on [facility] Branch 02/03/22 at 1000, Until Discontinu ed, Routine, Insomnia morpHINE (4 2021-03 No 4mg 4 mg, Slow Univers mg/mL) 04-0607 IV Push, ity of injection 4 15:45: 15:45 Q3HPRN, [place] mg 17 :28 Starting Medical on [facility] Branch 02/03/22 at 0945, Until 02/07/22 at 0945, Routine, Pain (scale 7-10) polyethylen 2021-03 Yes 17g 17 g, Unive rs e glycol 03 Oral, ity of 3350 powder 15:00: DAILY, [place] 17 g 00 First dose Medical on [facility] 02/03/22 at 0900, Until Discontinu ed, Routine enoxaparin 2021-03 Yes 40mg 40 mg, Unive rs (LOVENOX) 04-06 Subcutaneo ity of injection 15:00: us, DAILY, [place] 40 mg 00 First dose Medical on [facility] 02/03/22 at 0900, Until Discontinu ed, Routine enoxaparin 2021-03 No 40mg 40 mg, Univ ers (LOVENOX) 04-06 12-15 Subcutaneo ity of injection 15:00: 03:13 us, DAILY, [place] 40 mg 00 :03 First dose Medical on [facility] 02/03/22 at 0900, Until Discontinu ed, Routine polyethylen 2021-03 No 17g 17 g, Univ ers e glycol 04-06 12-14 Oral, ity of 3350 powder 15:00: 14:20 DAILY, [place] 17 g 00 :10 First dose Medical on [facility] 02/03/22 at 0900, Until Discontinu ed, Routine pantoprazol 2021-03 No 40mg 40 mg, Uni vers e 04-0606 Oral, ity of (PROTONIX) 15:00: 00:06 [place] tablet 00 :00 First dose Medi jessica 40 mg on [facility] 02/03/22 at 0900, Until Discontinu ed, Routine HYDROcodone 2021-03 No 1{tbl} 1 tablet, Univers -acetaminop 04-06 1204 Oral, Q6H, i ty of hen (NORCO) 15:00: 14:15 First dose [place] 10-325 mg 00 :57 on [facility] Medical tablet 1 02/03/22 at [facility] h tablet 0900, Until Discontinu ed, Routine Sliding 2021-03 Subcutaneo Uni vers Scale 2- 12-11 us, TID ity of Insulin - 14:00: 23:10 [place] Lis[place] 00 :34 First dose Medical (HumaLOG) + on [facility] Fsbg 02/03/22 at Testing 0800, Until Discontinu [...] mEq 00 :00 dose, On Medical Sat [facility] 02/03/22 at 0745, Routine melatonin 3 2021-03 Yes 3mg Take 3 mg U nivers mg tablet 2- by mouth ity of 10:00: at bedtime [place] [id number] as needed Medical for [facility] Insomnia. melatonin 3 2021-03 Yes 3mg Take 3 mg U nivers mg tablet - by mouth ity of 10:00: at bedtime [place] [address] as needed Medical for [facility] Insomnia. lactated 2021-03- No 500mL at 42 Univer s ringers IV 04-06 mL/hr, 500 it y of infusion 08:00: 15:51 mL, IV [place] 500 mL 00 :40 Infusion, Medical CONTINUOUS [facility] , Starting on 02/03/22 at 0200, Until 02/03/22 at 0951, Routine naloxone 2021-03 Yes .4mg 0.4 mg, Univer s (NARCAN) 04-06 Slow IV ity of injection 07:32: Push, PRN Noe as 0.4 mg 13 - SEE [facility], Starting on 02/03/22 at 0132, Until Discontinu ed, Routine, Sedation/R espiratory Depression naloxone 2021-03 Yes .4mg 0.4 mg, Univer s (NARCAN) 04-06 Slow IV ity of injection 07:32: Push, PRN Noe as 0.4 mg 13 - SEE [facility], Starting on 02/03/22 at 0132, [...] ne HCL 2-02 mcg in ity of ([facility]) 21:55: cheeks 2 [place] 750 mcg 45 (two) Medical Film times [place] daily. Indication s: chronic pain Flomax 0.4 Flomax 0.4 2021-03- No 1{capsu QD Flomax 0.4 MG MG -16 - le} MG 00:00: 00:00 00 :00 Eliquis 5 2021-03 Yes [id number] TAKE 1 M ethodi mg tablet 1-[address] 00:00: [facility]TH [facility]osp[facility] 00 TWICE l DAILY FOR BLOOD CLOT IN A DEEP VEIN OF THE EXTREMITIE S Eliquis 5 2021-03 Yes [id number] TAKE 1 M ethodi mg tablet 1-[address] 00:00: MOUTH Hospita 00 TWICE l DAILY FOR BLOOD CLOT IN A DEEP VEIN OF THE EXTREMITIE S Eliquis 5 2021-03 Yes [id number] TAKE 1 M ethodi mg tablet 1-[address] 00:00: MOUTH Hospita 00 TWICE l DAILY FOR BLOOD CLOT IN A DEEP VEIN OF THE EXTREMITIE S Eliquis 5 2021-03 Yes [id number] TAKE 1 M ethodi mg tablet 1-[address] 00:00: MOUTH Hospita 00 TWICE l DAILY FOR BLOOD CLOT IN A DEEP VEIN OF THE EXTREMITIE S Eliquis 5 2021-03 Yes [id number] TAKE 1 M ethodi mg tablet 1-[address] 00:00: MOUTH Hospita 00 TWICE l DAILY FOR BLOOD CLOT IN A DEEP VEIN OF THE EXTREMITIE S Eliquis 5 2021-03 Yes [id number] TAKE 1 M ethodi mg tablet 1-[address] 00:00: MOUTH Hospita 00 TWICE l DAILY FOR BLOOD CLOT IN A DEEP VEIN OF THE EXTREMITIE S Eliquis 5 2021-03 Yes [id number] TAKE 1 M ethodi mg tablet 1-[address] 00:00: MOUTH Hospita 00 TWICE l DAILY FOR BLOOD CLOT IN A DEEP VEIN OF THE EXTREMITIE S Eliquis 5 2021-03 Yes [id number] TAKE 1 M ethodi mg tablet 1-[address] 00:00: MOUTH Hospita 00 TWICE l DAILY FOR BLOOD CLOT IN A DEEP VEIN OF THE EXTREMITIE S Eliquis 5 2021-03 Yes [id number] TAKE 1 M ethodi mg tablet 1-[address] 00:00: MOUTH Hospita 00 TWICE l DAILY FOR BLOOD CLOT IN A DEEP VEIN OF THE EXTREMITIE S Eliquis 5 2021-03 Yes [id number] TAKE 1 M ethodi mg tablet 1-[address] 00:00: MOUTH Hospita 00 TWICE l DAILY FOR BLOOD CLOT IN A DEEP VEIN OF THE EXTREMITIE S Eliquis 5 2021-03 Yes [id number] TAKE 1 M ethodi mg tablet 1-[address] 00:00: MOUTH Hospita 00 TWICE l DAILY FOR BLOOD CLOT IN A DEEP VEIN OF THE EXTREMITIE S Eliquis 5 2021-03 Yes [id number] TAKE 1 M ethodi mg tablet 1-[address] 00:00: MOUTH Hospita 00 TWICE l DAILY FOR BLOOD CLOT IN A DEEP VEIN OF THE EXTREMITIE S Eliquis 5 2021-03 Yes [id number] TAKE 1 M ethodi mg tablet 1-[address] 00:00: MOUTH Hospita 00 TWICE l DAILY FOR BLOOD CLOT IN A DEEP VEIN OF THE EXTREMITIE S pantoprazol Yes [id number] TAKE 1 [facility] e 9-20 TABLET(40 st (PROTONIX) 00:00: MG) BY Hospi ta 40 MG EC 00 MOUTH l tablet DAILY pantoprazol Yes [id number] TAKE 1 [facility] e 9-20 TABLET(40 st (PROTONIX) 00:00: MG) BY Hospi ta 40 MG EC 00 MOUTH l tablet DAILY pantoprazol Yes [id number] TAKE 1 [facility] e 9-20 TABLET(40 st (PROTONIX) 00:00: MG) BY Hospi ta 40 MG EC 00 MOUTH l tablet DAILY pantoprazol Yes [id number] TAKE 1 [facility] e 9-20 TABLET(40 st (PROTONIX) 00:00: MG) BY Hospi ta 40 MG EC 00 MOUTH l tablet DAILY pantoprazol Yes [id number] TAKE 1 [facility] e 9-20 TABLET(40 st (PROTONIX) 00:00: MG) BY Hospi ta 40 MG EC 00 MOUTH l tablet DAILY pantoprazol Yes [id number] TAKE 1 [facility] e 9-20 TABLET(40 st (PROTONIX) 00:00: MG) BY Hospi ta 40 MG EC 00 MOUTH l tablet DAILY pantoprazol 2021-0 Yes [id number] TAKE 1 [facility] e 9-20 TABLET(40 st (PROTONIX) 00:00: MG) BY Hospi ta 40 MG EC 00 MOUTH l tablet DAILY pantoprazol 2021-0 Yes [id number] TAKE 1 [facility] e 9-20 TABLET(40 st (PROTONIX) 00:00: MG) BY Hospi ta 40 MG EC 00 MOUTH l tablet DAILY pantoprazol 2021-0 Yes [id number] TAKE 1 [facility] e 9-20 TABLET(40 st (PROTONIX) 00:00: MG) BY Hospi ta 40 MG EC 00 MOUTH l tablet DAILY pantoprazol 2021-0 Yes [id number] TAKE 1 [facility] e 9-20 TABLET(40 st (PROTONIX) 00:00: MG) BY Hospi ta 40 MG EC 00 MOUTH l tablet DAILY pantoprazol 2021-0 Yes [id number] TAKE 1 [facility] e 9-20 TABLET(40 st (PROTONIX) 00:00: MG) BY Hospi ta 40 MG EC 00 MOUTH l tablet DAILY pantoprazol 2021-0 Yes [id number] TAKE 1 [facility] e 9-20 TABLET(40 st (PROTONIX) 00:00: MG) BY Hospi ta 40 MG EC 00 MOUTH l tablet DAILY pantoprazol 2021-0 Yes [id number] TAKE 1 [facility] e 9-20 TABLET(40 st (PROTONIX) 00:00: MG) BY Hospi ta 40 MG EC 00 MOUTH l tablet DAILY Eliquis 2021- No [id number] TAKE 1 [facility] mg tablet 11-21 TABLET(5 st 00:00: 00:00 MG) BY Hospita 00 :00 MOUTH l TWICE DAILY FOR BLOOD CLOT Eliquis 5 2021- No [id number] TAKE 1 [facility] mg tablet 11-21- TABLET(5 st 00:00: 00:00 MG) BY Hospita 00 :00 MOUTH l TWICE DAILY FOR BLOOD CLOT Eliquis 5 2021- No [id number] TAKE 1 [facility] mg tablet 11-21 TABLET(5 st 00:00: 00:00 MG) BY [facility] 00 :00 MOUTH l TWICE DAILY FOR BLOOD CLOT Eliquis 5 No [id number] TAKE 1 [facility] mg tablet 11-21 TABLET(:00: 00:00 MG) BY Hospita 00 :00 MOUTH l TWICE DAILY FOR BLOOD CLOT Eliquis 5 No [id number] TAKE 1 [facility] mg tablet 11-21 TABLET(:00: 00:00 [facility] TWICE DAILY FOR BLOOD CLOT Eliquis 5 No [id number] TAKE 1 [facility] mg tablet 11-21 TABLET(:00: 00:00 MG) BY [facility] 00 :00 MOUTH l TWICE DAILY FOR BLOOD CLOT Eliquis 5 No [id number] TAKE 1 [facility] mg tablet 11-21 TABLET(:00: 00:00 MG) BY [facility] 00 :00 MOUTH l TWICE DAILY FOR BLOOD CLOT Eliquis No [id number] TAKE 1 [facility] mg tablet 11-21 TABLET(:00: 00:00 MG) BY [facility] 00 :00 MOUTH l TWICE DAILY FOR BLOOD CLOT Eliquis 5 No [id number] TAKE 1 [facility] mg tablet 11-21 TABLET(:00: 00:00 MG) BY [facility] 00 :00 MOUTH l TWICE DAILY FOR BLOOD CLOT Eliquis 5 No [id number] TAKE 1 [facility] mg tablet 11-21 TABLET(:00: 00:00 [facility] l TWICE DAILY FOR BLOOD CLOT Eliquis 5 No [id number] TAKE 1 [facility] mg tablet 11-21 TABLET(:00: 00:00 MG[facility] :[facility] MOUTH l TWICE DAILY FOR BLOOD CLOT Eliquis 5 No [id number] TAKE 1 [facility] mg tablet 11-21 TABLET( 00:00: 00:00 [facility] MOUTH l TWICE DAILY FOR BLOOD CLOT Eliquis 5 0 2021- No [id number] TAKE 1 [facility] mg tablet 11-21- TABLET(5 st 00:00: 00:00 MG) BY Hospita 00 :00 MOUTH l TWICE DAILY FOR BLOOD CLOT glimepiride Yes [id number] TAKE 1 [facility] (AMARYL) 1 9-[address] MG tablet 00:00: MOUTH Hospita 00 DAILY l BEFORE BREAKFAST glimepiride Yes [id number] TAKE 1 [facility] (AMARYL) 1 9-[address] MG tablet 00:00: MOUTH Hospita 00 DAILY l BEFORE BREAKFAST glimepiride Yes [id number] TAKE 1 [facility] (AMARYL) 1 9-[address] MG tablet 00:00: MOUTH Hospita 00 DAILY l BEFORE BREAKFAST glimepiride Yes [id number] TAKE 1 [facility] (AMARYL) 1 9-[address] MG tablet 00:00: MOUTH Hospita 00 DAILY l BEFORE BREAKFAST glimepiride Yes [id number] TAKE 1 [facility] (AMARYL) 1 9-[address] MG tablet 00:00: MOUTH Hospita 00 DAILY l BEFORE BREAKFAST glimepiride Yes [id number] TAKE 1 [facility] (AMARYL) 1 9-[address] MG tablet 00:00: MOUTH Hospita 00 DAILY l BEFORE BREAKFAST glimepiride Yes [id number] TAKE 1 [facility] (AMARYL) 1 9-[address] MG tablet 00:00: MOUTH Hospita 00 DAILY l BEFORE BREAKFAST glimepiride Yes [id number] TAKE 1 [facility] (AMARYL) 1 9-[address] MG tablet 00:00: MOUTH Hospita 00 DAILY l BEFORE BREAKFAST glimepiride Yes [id number] TAKE 1 [facility] (AMARYL) 1 9-[address] MG tablet 00:00: MOUTH Hospita 00 DAILY l BEFORE BREAKFAST glimepiride Yes [id number] TAKE 1 [facility] (AMARYL) 1 9-[address] MG tablet 00:00: MOUTH Hospita 00 DAILY l BEFORE BREAKFAST glimepiride Yes [id number] TAKE 1 [facility] (AMARYL) 1 -[address] MG tablet 00:00: MOUTH Hospita 00 DAILY l BEFORE BREAKFAST glimepiride Yes [id number] TAKE 1 [facility] (AMARYL) 1 -[address] MG tablet 00:00: MOUTH Hospita 00 DAILY l BEFORE BREAKFAST glimepiride Yes [id number] TAKE 1 [facility] (AMARYL) 1 -[address] MG tablet 00:00: MOUTH Hospita 00 DAILY l BEFORE BREAKFAST glimepiride 2021- No [id number] TAKE 1 [facility] (AMARYL) 1 11-09 TABLET(1 st MG tablet 00:00: 00:00 MG) BY Hospi ta 00 :00 MOUTH l DAILY BEFORE BREAKFAST glimepiride 2021- No [id number] TAKE 1 [facility] (AMARYL) 1 11-09 TABLET(1 st MG tablet 00:00: 00:00 MG) BY Hospi ta 00 :00 MOUTH l DAILY BEFORE BREAKFAST glimepiride 2021- No [id number] TAKE 1 [facility] (AMARYL) 1 11-09 TABLET(1 st MG tablet 00:00: 00:00 MG) BY Hospi ta 00 :00 MOUTH l DAILY BEFORE BREAKFAST glimepiride 2021- No [id number] TAKE 1 [facility] (AMARYL) 1 11-09 TABLET(1 st MG tablet 00:00: 00:00 MG) BY Hospi ta 00 :00 MOUTH l DAILY BEFORE BREAKFAST glimepiride 2021- No [id number] TAKE 1 [facility] (AMARYL) 1 11-09 TABLET(1 st MG tablet 00:00: 00:00 MG) BY Hospi ta 00 :00 MOUTH l DAILY BEFORE BREAKFAST glimepiride 2021- No [id number] TAKE 1 [facility] (AMARYL) 1 11-09 TABLET(1 st MG tablet 00:00: 00:00 MG) BY Hospi ta 00 :00 MOUTH l DAILY BEFORE BREAKFAST glimepiride 2021- No [id number] TAKE 1 [facility] (AMARYL) 1 11-09 TABLET(1 st MG tablet 00:00: 00:00 MG) BY Hospi ta 00 :00 MOUTH l DAILY BEFORE BREAKFAST glimepiride 2021- No [id number] TAKE 1 [facility] (AMARYL) 1 11-09 TABLET(1 st MG tablet 00:00: 00:00 MG) BY Hospi ta 00 :00 MOUTH l DAILY BEFORE BREAKFAST glimepiride 2021- No [id number] TAKE 1 [facility] (AMARYL) 1 11-09 TABLET(1 st MG tablet 00:00: 00:00 MG) BY Hospi ta 00 :00 MOUTH l DAILY BEFORE BREAKFAST glimepiride 2021- No [id number] TAKE 1 [facility] (AMARYL) 1 11-09 TABLET(1 st MG tablet 00:00: 00:00 MG) BY Hospi ta 00 :00 MOUTH l DAILY BEFORE BREAKFAST glimepiride 2021- No [id number] TAKE 1 [facility] (AMARYL) 1 11-09 TABLET(1 st MG tablet 00:00: 00:00 MG) BY Hospi ta 00 :00 MOUTH l DAILY BEFORE BREAKFAST glimepiride 2021- No [id number] TAKE 1 [facility] (AMARYL) 1 11-09 TABLET(1 st MG tablet 00:00: 00:00 MG) BY Hospi ta 00 :00 MOUTH l DAILY BEFORE BREAKFAST glimepiride 2021- No [id number] TAKE 1 [facility] (AMARYL) 1 11-09 TABLET(1 st MG tablet 00:00: 00:00 MG) BY Hospi ta 00 :00 MOUTH l DAILY BEFORE BREAKFAST DULoxetine 2021-0 Yes [id number] TAKE 1 [facility] (CYMBALTA) 11-[address] 20 MG 00:00: MOUTH Hospita capsule 00 DAILY l DULoxetine 2021-0 Yes [id number] TAKE 1 [facility] (CYMBALTA) 11-[address] 20 MG 00:00: MOUTH Hospita capsule 00 DAILY l DULoxetine 2021-0 Yes [id number] TAKE 1 [facility] (CYMBALTA) 11-[address] 20 MG 00:00: MOUTH Hospita capsule 00 DAILY l DULoxetine 2021-0 Yes [id number] TAKE 1 [facility] (CYMBALTA) 11-[address] 20 MG 00:00: MOUTH Hospita capsule 00 DAILY l DULoxetine 2021-0 Yes [id number] TAKE 1 [facility] (CYMBALTA) 11-[address] 20 MG 00:00: MOUTH Hospita capsule 00 DAILY l DULoxetine 2021-0 Yes [id number] TAKE 1 [facility] (CYMBALTA) 11-[address] 20 MG 00:00: MOUTH Hospita capsule 00 DAILY l DULoxetine 2021-0 Yes [id number] TAKE 1 [facility] (CYMBALTA) 11-[address] 20 MG 00:00: MOUTH Hospita capsule 00 DAILY l DULoxetine 2021-0 Yes [id number] TAKE 1 [facility] (CYMBALTA) 11-[address] 20 MG 00:00: MOUTH Hospita capsule 00 DAILY l DULoxetine 2021-0 Yes [id number] TAKE 1 [facility] (CYMBALTA) 11-[address] 20 MG 00:00: MOUTH Hospita capsule 00 DAILY l DULoxetine 2021-0 Yes [id number] TAKE 1 [facility] (CYMBALTA) 11-[address] 20 MG 00:00: MOUTH Hospita capsule 00 DAILY l DULoxetine 2021-0 Yes [id number] TAKE 1 [facility] (CYMBALTA) 11-[address] 20 MG 00:00: MOUTH Hospita capsule 00 DAILY l DULoxetine 2021-0 Yes [id number] TAKE 1 [facility] (CYMBALTA) 11-[address] 20 MG 00:00: MOUTH Hospita capsule 00 DAILY l DULoxetine 2021-0 Yes [id number] TAKE 1 [facility] (CYMBALTA) 11-[address] 20 MG 00:00: MOUTH Hospita capsule 00 DAILY l amLODIPine 2021-0 Yes TAKE 1 Metho di (NORVASC) 8-[address] 10 mg 00:00: MOUTH Hospita tablet 00 DAILY l amLODIPine 2021-0 Yes TAKE 1 Metho di (NORVASC) 8-21 [...] MOUTH Hospita tablet 00 DAILY l nirmatrelvi 2021-0 Yes [id number] 3{tbl} Take 3 Univers r-ritonavir 8-12 tablets by it y of (PAXLOVID, 00:00: mouth in Noe as EUA,) 150 00 the Medical mg x 2- 100 morning Branc h mg tablet and 3 tablets in the evening. nirmatrelvi 2021-0 Yes [id number] 3{tbl} Take 3 Univers r-ritonavir 8-12 tablets by it y of (PAXLOVID, 00:00: mouth in Noe as EUA,) 150 00 the Medical mg x 2- 100 morning Branc h mg tablet and 3 tablets in the evening. nirmatrelvi 2021-0 Yes [id number] 3{tbl} Take 3 Univers r-ritonavir 8-12 tablets by it y of (PAXLOVID, 00:00: mouth in Noe as EUA,) 150 00 the Medical mg x 2- 100 morning Branc h mg tablet and 3 tablets in the evening. nirmatrelvi 2021-0 Yes [id number] 3{tbl} Take 3 Univers r-ritonavir 8-12 tablets by it y of (PAXLOVID, 00:00: mouth in Noe as EUA,) 150 00 the Medical mg x 2- 100 morning Branc h mg tablet and 3 tablets in the evening. nirmatrelvi 0 Yes [id number] 3{tbl} Take 3 Univers r-ritonavir 8-12 tablets by it y of (PAXLOVID, 00:00: mouth in Noe as EUA,) 150 00 the Medical mg x 2- 100 morning Branc h mg tablet and 3 tablets in the evening. nirmatrelvi 2021-0 Yes [id number] 3{tbl} Take 3 Univers r-ritonavir 8-12 tablets by it y of (PAXLOVID, 00:00: mouth in Noe as EUA,) 150 00 the Medical mg x 2- 100 morning Branc h mg tablet and 3 tablets in the evening. nirmatrelvi 2021-0 Yes [id number] 3{tbl} Take 3 Univers r-ritonavir 8-12 tablets by it y of (PAXLOVID, 00:00: mouth in Noe as EUA,) 150 00 the Medical mg x 2- 100 morning Branc h mg tablet and 3 tablets in the evening. nirmatrelvi 2021-0 Yes [id number] 3{tbl} Take 3 Univers r-ritonavir 8-12 tablets by it y of (PAXLOVID, 00:00: mouth in Noe as EUA,) 150 00 the Medical mg x 2- 100 morning Branc h mg tablet and 3 tablets in the evening. nirmatrelvi 2021-0 Yes [id number] 3{tbl} Take 3 Univers r-ritonavir 8-12 tablets by it y of (PAXLOVID, 00:00: mouth in Noe as EUA,) 150 00 the Medical mg x 2- 100 morning Branc h mg tablet and 3 tablets in the evening. nirmatrelvi 2021-0 Yes [id number] 3{tbl} Take 3 Univers r-ritonavir 8-12 tablets by it y of (PAXLOVID, 00:00: mouth in Noe as EUA,) 150 00 the Medical mg x 2- 100 morning Branc h mg tablet and 3 tablets in the evening. nirmatrelvi 2021-0 Yes [id number] 3{tbl} Take 3 Univers r-ritonavir 8-12 tablets by it y of (PAXLOVID, 00:00: mouth in Noe as EUA,) 150 00 the Medical mg x 2- 100 morning Branc h mg tablet and 3 tablets in the evening. nircatrelvi 0 Yes [id number] 3{tbl} Take 3 Univers r-ritonavir 8-12 tablets by it y of (PAXLOVID, 00:00: mouth in Noe as EUA,) 150 00 the Medical mg x 2- 100 morning Branc h mg tablet and 3 tablets in the evening. nircatrelvi 0 Yes [id number] 3{tbl} Take 3 Univers r-ritonavir 8-12 tablets by it y of (PAXLOVID, 00:00: mouth in Noe as EUA,) 150 00 the Medical mg x 2- 100 morning Branc h mg tablet and 3 tablets in the evening. nircatrelvi 0 Yes [id number] 3{tbl} Take 3 Univers r-ritonavir 8-12 tablets by it y of (PAXLOVID, 00:00: mouth in Noe as EUA,) 150 00 the Medical mg x 2- 100 morning Branc h mg tablet and 3 tablets in the evening. nirmatrelvi 2021-0 Yes [id number] 3{tbl} Take 3 Univers r-ritonavir 8-12 tablets by it y of (PAXLOVID, 00:00: mouth in Noe as EUA,) 150 00 the Medical mg x 2- 100 morning Branc h mg tablet and 3 tablets in the evening. nirmatrelvi 2021-0 Yes [id number] 3{tbl} Take 3 Univers r-ritonavir 8-12 tablets by it y of (PAXLOVID, 00:00: mouth in Noe as EUA,) 150 00 the Medical mg x 2- 100 morning Branc h mg tablet and 3 tablets in the evening. nirmatrelvi 2021-0 Yes [id number] 3{tbl} Take 3 Univers r-ritonavir 8-12 tablets by it y of (PAXLOVID, 00:00: mouth in Noe as EUA,) 150 00 the Medical mg x 2- 100 morning Branc h mg tablet and 3 tablets in the evening. nirmatrelvi 2021-0 Yes [id number] 3{tbl} Take 3 Univers r-ritonavir 8-12 tablets by it y of (PAXLOVID, 00:00: mouth in Noe as EUA,) 150 00 the Medical mg x 2- 100 morning Branc h mg tablet and 3 tablets in the evening. nirmatrelvi 2021-0 Yes [id number] 3{tbl} Take 3 Univers r-ritonavir 8-12 tablets by it y of (PAXLOVID, 00:00: mouth in Noe as EUA,) 150 00 the Medical mg x 2- 100 morning Branc h mg tablet and 3 tablets in the evening. nirmatrelvi 2021-0 Yes [id number] 3{tbl} Take 3 Univers r-ritonavir 8-12 tablets by it y of (PAXLOVID, 00:00: mouth in Noe as EUA,) 150 00 the Medical mg x 2- 100 morning Branc h mg tablet and 3 tablets in the evening. nirmatrelvi 2021-0 Yes [id number] 3{tbl} Take 3 Univers r-ritonavir 8-12 tablets by it y of (PAXLOVID, 00:00: mouth in Noe as EUA,) 150 00 the Medical mg x 2- 100 morning Branc h mg tablet and 3 tablets in the evening. nirmatrelvi 2021-0 Yes [id number] 3{tbl} Take 3 Univers r-ritonavir 8-12 tablets by it y of (PAXLOVID, 00:00: mouth in Noe as EUA,) 150 00 the Medical mg x 2- 100 morning Branc h mg tablet and 3 tablets in the evening. nirmatrelvi 0 Yes [id number] 3{tbl} Take 3 Univers r-ritonavir 8-12 tablets by it y of (PAXLOVID, 00:00: mouth in Noe as EUA,) 150 00 the Medical mg x 2- 100 morning Branc h mg tablet and 3 tablets in the evening. nirmatrelvi 0 Yes [id number] 3{tbl} Take 3 Univers r-ritonavir 8-12 tablets by it y of (PAXLOVID, 00:00: mouth in Noe as EUA,) 150 00 the Medical mg x 2- 100 morning Branc h mg tablet and 3 tablets in the evening. nirmatrelvi 0 Yes [id number] 3{tbl} Take 3 Univers r-ritonavir 8-12 tablets by it y of (PAXLOVID, 00:00: mouth in Noe as EUA,) 150 00 the Medical mg x 2- 100 morning Branc h mg tablet and 3 tablets in the evening. nirmatrelvi 0 Yes [id number] 3{tbl} Take 3 Univers r-ritonavir 8-12 tablets by it y of (PAXLOVID, 00:00: mouth in Noe as EUA,) 150 00 the Medical mg x 2- 100 morning Branc h mg tablet and 3 tablets in the evening. nirmatrelvi Yes [id number] 3{tbl} Take 3 Univers r-ritonavir 8-12 tablets by it y of (PAXLOVID, 00:00: mouth in Noe as EUA,) 150 00 the Medical mg x 2- 100 morning Branc h mg tablet and 3 tablets in the evening. diclofenac 2022- No [id number] Q.25D Apply [facility] (VOLTAREN) 09-27 07-[address] 1 % gel 00:00: 04:59 4 (four) Hospi ta 00 :00 times a l day. diclofenac 2022- No [id number] Q.25D Apply [facility] (VOLTAREN) 09-[address] 1 % gel 00:00: 04:59 4 (four) Hospi ta 00 :00 times a l day. diclofenac 2022- No [id number] Q.25D Apply [facility] (VOLTAREN) 09-[address] 1 % gel 00:00: 04:59 4 (four) Hospi ta 00 :00 times a l day. diclofenac 2022- No [id number] Q.25D Apply [facility] (VOLTAREN) 09-[address] 1 % gel 00:00: 04:59 4 (four) Hospi ta 00 :00 times a l day. diclofenac 2022- No [id number] Q.25D Apply [facility] (VOLTAREN) 09-[address] 1 % gel 00:00: 04:59 4 (four) Hospi ta 00 :00 times a l day. diclofenac 2022- No [id number] Q.25D Apply [facility] (VOLTAREN) 09-[address] 1 % gel 00:00: 04:59 4 (four) Hospi ta 00 :00 times a l day. diclofenac 2022- No [id number] Q.25D Apply [facility] (VOLTAREN) 09-[address] 1 % gel 00:00: 04:59 4 (four) Hospi ta 00 :00 times a l day. diclofenac 2022- No [id number] Q.25D Apply [facility] (VOLTAREN) 09-[address] 1 % gel 00:00: 04:59 4 (four) Hospi ta 00 :00 times a l day. diclofenac 2022- No [id number] Q.25D Apply [facility] (VOLTAREN) 09-[address] 1 % gel 00:00: 04:59 4 (four) Hospi ta 00 :00 times a l day. diclofenac 2022- No [id number] Q.25D Apply [facility] (VOLTAREN) 09-[address] 1 % gel 00:00: 04:59 4 (four) Hospi ta 00 :00 times a l day. diclofenac 2022- No [id number] Q.25D Apply [facility] (VOLTAREN) 09-27-[address] 1 % gel 00:00: 04:59 4 (four) Hospi ta 00 :00 times a l day. diclofenac 3- No [id number] Q.25D Apply [facility] (VOLTAREN) 09-27-[address] 1 % gel 00:00: 04:59 4 (four) Hospi ta 00 :00 times a l day. diclofenac 2022- No [id number] Q.25D Apply [facility] (VOLTAREN) 09-27-[address] 1 % gel 00:00: 04:59 4 (four) Hospi ta 00 :00 times a l day. clindamycin 2021- No [id number] 300mg Q.[id number] Take 1 [facility] (Cleocin 7-27 08-18 [id number] capsule s t HCL) 300 MG 00:00: 04:59 3D (300 mg [facility] capsule 00 :00 total) by l mouth 3 (three) times a day for 21 days. clindamycin 2021- No [id number] 300mg Q.[id number] Take 1 [facility] (Cleocin 7-27 08-18 [id number] capsule s t HCL) 300 MG 00:00: 04:59 3D (300 mg [facility] capsule 00 :00 total) by l mouth 3 (three) times a day for 21 days. clindamycin 2021- No [id number] 300mg Q.[id number] Take 1 [facility] (Cleocin 7-27 08-18 [id number] capsule s t HCL) 300 MG 00:00: 04:59 3D (300 mg [facility] capsule 00 :00 total) by l mouth 3 (three) times a day for 21 days. clindamycin 2021- No [id number] 300mg Q.[id number] Take 1 [facility] (Cleocin 7-27 08-18 [id number] capsule s t HCL) 300 MG 00:00: 04:59 3D (300 mg [facility] capsule 00 :00 total) by l mouth 3 (three) times a day for 21 days. clindamycin 2021- No [id number] 300mg Q.[id number] Take 1 [facility] (Cleocin 7-27 08-18 [id number] capsule s t HCL) 300 MG 00:00: 04:59 3D (300 mg [facility] capsule 00 :00 total) by l mouth 3 (three) times a day for 21 days. clindamycin 2021- No [id number] 300mg Q.[id number] Take 1 [facility] (Cleocin 7-27 08-18 [id number] capsule s t HCL) 300 MG 00:00: 04:59 3D (300 mg Ho [facility] capsule 00 :00 total) by l mouth 3 (three) times a day for 21 days. clindamycin 2021- No [id number] 300mg Q.[id number] Take 1 [facility] (Cleocin 7-27 08-18 [id number] capsule s t HCL) 300 MG 00:00: 04:59 3D (300 mg [facility] capsule 00 :00 total) by l mouth 3 (three) times a day for 21 days. clindamycin 2021- No [id number] 300mg Q.[id number] Take 1 [facility] (Cleocin 7-27 08-18 [id number] capsule s t HCL) 300 MG 00:00: 04:59 3D (300 mg Ho [facility] capsule 00 :00 total) by l mouth 3 (three) times a day for 21 days. clindamycin 2021- No [id number] 300mg Q.[id number] Take 1 [facility] (Cleocin 7-27 08-18 [id number] capsule s t HCL) 300 MG 00:00: 04:59 3D (300 mg Ho [facility] capsule 00 :00 total) by l mouth 3 (three) times a day for 21 days. clindamycin 2021-2021- No [id number] 300mg Q.[id number] Take 1 [facility] (Cleocin 7-27 08-18 [id number] capsule s t HCL) 300 MG 00:00: 04:59 3D (300 mg [facility] capsule 00 :00 total) by l mouth 3 (three) times a day for 21 days. clindamycin 2021- No [id number] 300mg Q.[id number] Take 1 [facility] (Cleocin 09-27- [id number] capsule s t HCL) 300 MG 00:00: 04:59 3D (300 mg Ho [facility] capsule 00 :00 total) by l mouth 3 (three) times a day for 21 days. clindamycin 2021- No [id number] 300mg Q.[id number] Take 1 [facility] (Cleocin 09-27 [id number] capsule s t HCL) 300 MG 00:00: 04:59 3D (300 mg Ho [facility] capsule 00 :00 total) by l mouth 3 (three) times a day for 21 days. clindamycin 2021- No [id number] 300mg Q.[id number] Take 1 [facility] (Cleocin 09-27 [id number] capsule s t HCL) 300 MG 00:00: 04:59 3D (300 mg [facility] capsule 00 :00 total) by l mouth 3 (three) times a day for 21 days. clindamycin 2021- No [id number] 300mg Q.[id number] Take 1 [facility] (Cleocin 09-04 9107 [id number] capsule s t HCL) 300 MG 00:00: 04:59 3D (300 mg Ho [facility] capsule 00 :00 total) by l mouth 3 (three) times a day for 14 days. clindamycin 2021- No [id number] 300mg Q.[id number] Take 1 [facility] (Cleocin 09-04 9107 [id number] capsule s t HCL) 300 MG 00:00: 04:59 3D (300 mg [facility] capsule 00 :00 total) by l mouth 3 (three) times a day for 14 days. clindamycin 2021- No [id number] 300mg Q.[id number] Take 1 [facility] (Cleocin 09-04 9107 [id number] capsule s t HCL) 300 MG 00:00: 04:59 3D (300 mg [facility] capsule 00 :00 total) by l mouth 3 (three) times a day for 14 days. clindamycin 2021- No [id number] 300mg Q.34855855 Take 1 [facility] (Cleocin 09-04 9107 [id number] capsule s t HCL) 300 MG 00:00: 04:59 3D (300 mg [facility] capsule 00 :00 total) by l mouth 3 (three) times a day for 14 days. clindamycin 2021- No [id number] 300mg Q.[id number] Take 1 [facility] (Cleocin 09-04 9107 [id number] capsule s t HCL) 300 MG 00:00: 04:59 3D (300 mg [facility] capsule 00 :00 total) by l mouth 3 (three) times a day for 14 days. clindamycin 2021- No [id number] 300mg Q.[id number] Take 1 [facility] (Cleocin 09-04 9107 [id number] capsule s t HCL) 300 MG 00:00: 04:59 3D (300 mg [facility] capsule 00 :00 total) by l mouth 3 (three) times a day for 14 days. clindamycin 2021- No [id number] 300mg Q.[id number] Take 1 [facility] (Cleocin 09-04 9107 [id number] capsule s t HCL) 300 MG 00:00: 04:59 3D (300 mg [facility] capsule 00 :00 total) by l mouth 3 (three) times a day for 14 days. clindamycin 2021- No [id number] 300mg Q.[id number] Take 1 [facility] (Cleocin 09-04 9107 [id number] capsule s t HCL) 300 MG 00:00: 04:59 3D (300 mg [facility] capsule 00 :00 total) by l mouth 3 (three) times a day for 14 days. clindamycin 2021- No [id number] 300mg Q.[id number] Take 1 [facility] (Cleocin 09-04 9107 [id number] capsule s t HCL) 300 MG 00:00: 04:59 3D (300 mg [facility] capsule 00 :00 total) by l mouth 3 (three) times a day for 14 days. clindamycin 2021-2021- No [id number] 300mg Q.14660009 Take 1 [facility] (Cleocin 09-04 9107 [id number] capsule s t HCL) 300 MG 00:00: 04:59 3D (300 mg [facility] capsule 00 :00 total) by l mouth 3 (three) times a day for 14 days. clindamycin 2021-2021- No [id number] 300mg Q.92381568 Take 1 [facility] (Cleocin 09-04 9107 [id number] capsule s t HCL) 300 MG 00:00: 04:59 3D (300 mg [facility] capsule 00 :00 total) by l mouth 3 (three) times a day for 14 days. clindamycin 2021-2021- No [id number] 300mg Q.77730976 Take 1 [facility] (Cleocin 09-04 9107 [id number] capsule s t HCL) 300 MG 00:00: 04:59 3D (300 mg [facility] capsule 00 :00 total) by l mouth 3 (three) times a day for 14 days. clindamycin 2021-2021- No [id number] 300mg Q.66799677 Take 1 [facility] (Cleocin 09-04 9107 [id number] capsule s t HCL) 300 MG 00:00: 04:59 3D (300 mg [facility] capsule 00 :00 total) by l mouth 3 (three) times a day for 14 days. methocarbam 2021-0 Yes [id number] 500mg Q.25D Take 1 [facility] 07[facility] (ROBAXIN) 00:00: (500 mg [facility] 500 MG 00 total) by l tablet mouth 4 (four) times a day as needed for muscle spasms. methocarbam 2021-0 Yes [id number] 500mg Q.25D Take 1 [facility] o[facility] 07-[address] (ROBAXIN) 00:00: (500 mg [facility] 500 MG 00 total) by l tablet mouth 4 (four) times a day as needed for muscle spasms. methocarbam 2021-0 Yes [id number] 500mg Q.25D Take 1 [facility] o[facility] 5-[address] (ROBAXIN) 00:00: (500 mg [facility] 500 MG 00 total) by l tablet mouth 4 (four) times a day as needed for muscle spasms. methocarbam 2-0 Yes [id number] 500mg Q.25D Take 1 [facility] 07[facility] (ROBAXIN) 00:00: (500 mg [facility] 500 MG 00 total) by l tablet mouth 4 (four) times a day as needed for muscle spasms. methocarbam 2-0 Yes [id number] 500mg Q.25D Take 1 [facility] 07[facility] (ROBAXIN) 00:00: (500 mg [facility] 500 MG 00 total) by l tablet mouth 4 (four) times a day as needed for muscle spasms. methocarbam 2-0 Yes [id number] 500mg Q.25D Take 1 [facility] 07[facility] (ROBAXIN) 00:00: (500 mg [facility] 500 MG 00 total) by l tablet mouth 4 (four) times a day as needed for muscle spasms. methocarbam 2-0 Yes [id number] 500mg Q.25D Take 1 [facility] 07[facility] (ROBAXIN) 00:00: (500 mg [facility] 500 MG 00 total) by l tablet mouth 4 (four) times a day as needed for muscle spasms. methocarbam 2-0 Yes [id number] 500mg Q.25D Take 1 [facility] o[facility] 07-[address] (ROBAXIN) 00:00: (500 mg [facility] ta 500 MG 00 total) by l tablet mouth 4 (four) times a day as needed for muscle spasms. methocarbam 2-0 Yes [id number] 500mg Q.25D Take 1 [facility] o[facility] 07-[address] (ROBAXIN) 00:00: (500 mg [facility] 500 MG 00 total) by l tablet mouth 4 (four) times a day as needed for muscle spasms. methocarbam 2022-0 Yes [id number] 500mg Q.25D Take 1 [facility] 07[facility] (ROBAXIN) 00:00: (500 mg [facility] ta 500 MG 00 total) by l tablet mouth 4 (four) times a day as needed for muscle spasms. methocarbam 2-0 Yes [id number] 500mg Q.25D Take 1 [facility] oL 07-[address] (ROBAXIN) 00:00: (500 mg [facility] 500 MG 00 total) by l tablet mouth 4 (four) times a day as needed for muscle spasms. methocarbam 2-0 Yes [id number] 500mg Q.25D Take 1 [facility] o[facility] 07-[address] (ROBAXIN) 00:00: (500 mg [facility] 500 MG 00 total) by l tablet mouth 4 (four) times a day as needed for muscle spasms. methocarbam 2021-0 Yes [id number] 500mg Q.25D Take 1 [facility] o[facility] 07-[address] (ROBAXIN) 00:00: (500 mg [facility] ta 500 MG 00 total) by l tablet mouth 4 (four) times a day as needed for muscle spasms. methocarbam 2021-0 2- No [id number] 500mg Q.25D Take 1 [facility] 07[facility] (ROBAXIN) 00:00: 00:00 (500 mg [facility] 500 MG 00 :00 total) by l tablet mouth 4 (four) times a day as needed for muscle spasms. methocarbam 2021-0 2- No [id number] 500mg Q.25D Take 1 [facility] 07[facility] (ROBAXIN) 00:00: 00:00 (500 mg [facility] 500 MG 00 :00 total) by l tablet mouth 4 (four) times a day as needed for muscle spasms. methocarbam 2-0 2- No [id number] 500mg Q.25D Take 1 [facility] o[facility] 07[facility] (ROBAXIN) 00:00: 00:00 (500 mg [facility] 500 MG 00 :00 total) by l tablet mouth 4 (four) times a day as needed for muscle spasms. methocarbam 2-0 2- No [id number] 500mg Q.25D Take 1 [facility] 07[facility] (ROBAXIN) 00:00: 00:00 (500 mg [facility] 500 MG 00 :00 total) by l tablet mouth 4 (four) times a day as needed for muscle spasms. methocarbam 0 2021- No [id number] 500mg Q.25D Take 1 [facility] o[facility] 07-[address] (ROBAXIN) 00:00: 00:00 (500 mg [facility] 500 MG 00 :00 total) by l tablet mouth 4 (four) times a day as needed for muscle spasms. methocarbam 0 2021- No [id number] 500mg Q.25D Take 1 [facility] 07[facility] (ROBAXIN) 00:00: 00:00 (500 mg [facility] 500 MG 00 :00 total) by l tablet mouth 4 (four) times a day as needed for muscle spasms. methocarbam 2021-0 2021- No [id number] 500mg Q.25D Take 1 [facility] 07[facility] (ROBAXIN) 00:00: 00:00 (500 mg [facility] 500 MG 00 :00 total) by l tablet mouth 4 (four) times a day as needed for muscle spasms. methocarbam 0 2021- No [id number] 500mg Q.25D Take 1 [facility] 07-[address] (ROBAXIN) 00:00: 00:00 (500 mg [facility] 500 MG 00 :00 total) by l tablet mouth 4 (four) times a day as needed for muscle spasms. methocarbam 2021-0 2021- No [id number] 500mg Q.25D Take 1 [facility] o[facility] 07-[address] (ROBAXIN) 00:00: 00:00 (500 mg [facility] 500 MG 00 :00 total) by l tablet mouth 4 (four) times a day as needed for muscle spasms. methocarbam 2021-0 2021- No [id number] 500mg Q.25D Take 1 [facility] o[facility] 07-[address] (ROBAXIN) 00:00: 00:00 (500 mg [facility]osp [facility] 500 MG 00 :00 total) by l tablet mouth 4 (four) times a day as needed for muscle spasms. methocarbam 0 2021- No [id number] 500mg Q.25D Take 1 [facility] o[facility] 07-[address] (ROBAXIN) 00:00: 00:00 (500 mg [facility]osp [facility] 500 MG 00 :00 total) by l tablet mouth 4 (four) times a day as needed for muscle spasms. methocarbam 2021-0 2- No [id number] 500mg Q.25D Take 1 [facility] o[facility] 07-[address] (ROBAXIN) 00:00: 00:00 (500 mg [facility]osp [facility] 500 MG 00 :00 total) by l tablet mouth 4 (four) times a day as needed for muscle spasms. methocarbam 2021-0 2021- No [id number] 500mg Q.25D Take 1 [facility] oL 07-10 [...] approved by: MELA MCCLENDON, CLC ID ibuprofen 0 Yes 600mg Take 600 Uni vers 600 mg 4-20 mg by ity of tablet 16:50: mouth [place] 17 every 6 Medical (six) Branch hours as needed for Pain (scale 4-6). Diclofenac 0 Yes 1{dose} Apply 1 U nivers Sodium 4-20 Dose to ity of (VOLTAREN 16:50: area(s) [place] ARTHRITIS 17 every 6 Medical PAIN) 1 % (six) Branch gel hours as needed (JOINT PAIN). amLODIPine Yes 10mg Take 10 mg U nivers 10 mg 4-20 by mouth ity of tablet 16:50: daily. [place] 17 Medical Branch losartan-hy Yes 1{tbl} Take [...] 16:50: daily. [place] 17 Medical Branch losartan-hy 0 Yes 1{tbl} Take [...] by mouth ity of tablet 16:50: daily. [place] 17 Medical Branch losartan-hy Yes 1{tbl} Take [...] it y of mg capsule 16:50: (two) [place] 17 times Medical daily. Branch DULoxetine Yes 20mg Take 20 mg U nivers (CYMBALTA) 4-20 by mouth ity o f 20 mg 16:50: daily. [place] [facility] 17 Medical Branch melatonin 3 0 Yes [...] by mouth ity of tablet 16:50: daily. [place] 17 Medical Branch losartan-hy Yes 1{tbl} Take [...] Hospita 00 :00 catheter l daily. DAPTOMYCIN 202- No 710mg QD Infuse 710 [facility] IV 4-20 06-[address] 00:00: 04:59 venous Hospita 00 :00 catheter l daily. DAPTOMYCIN 202- No 710mg QD Infuse 710 [facility] IV 4-20 06-[address] 00:00: 04:59 venous Hospita 00 :00 catheter l daily. DAPTOMYCIN 202- No 710mg QD Infuse 710 [facility] IV 4-20 06-[address] 00:00: 04:59 venous Hospita 00 :00 catheter l daily. DAPTOMYCIN 2021- No 710mg QD Infuse 710 [facility] IV 4-20 06-[address] 00:00: 04:59 venous Hospita 00 :00 catheter l daily. DAPTOMYCIN 202- No 710mg QD Infuse 710 [facility] IV 4-20 06-[address] 00:00: 04:59 venous Hospita 00 :00 catheter l daily. DAPTOMYCIN 2021-0 2022- No 710mg QD Infuse 710 [facility] IV 4-20 06-[address] 00:00: 04:59 venous Hospita 00 :00 catheter l daily. DAPTOMYCIN 2021- 2022- No 710mg QD Infuse 710 [facility] IV 4-20 06-[address] 00:00: 04:59 venous Hospita 00 :00 catheter l daily. DAPTOMYCIN 2022-0 2022- No 710mg QD Infuse 710 [facility] IV 4-20 06-[address] 00:00: 04:59 venous Hospita 00 :00 catheter l daily. DAPTOMYCIN 2021-0 2- No 710mg QD Infuse 710 [facility] IV 4-20 06-[address] 00:00: 04:59 venous Hospita 00 :00 catheter l daily. DAPTOMYCIN 2021-0 2022- No 710mg QD Infuse 710 [facility] IV 4-20 06-[address] 00:00: 04:59 venous Hospita 00 :00 catheter l daily. DAPTOMYCIN 2021-0 2022- No 710mg QD Infuse 710 [facility] IV 4-20 06-[address] 00:00: 04:59 venous Hospita 00 :00 catheter l daily. DAPTOMYCIN 2021-0 2- No 710mg QD Infuse 710 [facility] IV 4-20 06-[address] 00:00: 04:59 venous Hospita 00 :00 catheter l daily. lidocaine 2021- No 5mL 5 mL, Univer s 1% (PF) 06-20 Subcutaneo ity o f (XYLOCAINE) 15:45: 20:19 , ONCE, [place] injection 5 00 :00 1 dose, On Me dical mL [facility] 06/20/21 at 1045, Routine NaCl 0.9% Yes 10mL 10 mL, Univer s (NS) 06-20 Slow IV ity of injection 15:40: Push, [place]N, [place] 10 [place] 36 Starting Medical on [facility] 06/20/21 at 1040, Until Discontinu ed, Routine, line maintenanc e morpHINE Yes 4mg 4 mg, Slow Uni vers injection 06-20 IV Push, ity [facility] mg 09:15: [facility] [place] [facility] Starting Medical on [facility] 06/20/21 at 0415, Until Discontinu ed, Routine, Pain (scale 7-10) HYDROcodone Yes 1{tbl} 1 tablet, Univers -acetaminop 06-20 Oral, ity of hen (NORCO 08:08: Q6HPRN, [place] 5) 5-325 mg 08 Starting Medi jessica tablet 1 on Tue Branch tablet 06/20/21 at 0308, Until Discontinu ed, Routine, Pain (scale 4-6) vancomycin 2021-0 Yes 1500mg 1,500 mg, Univers 1500 mg [...]
D uration of therapy: 72 hours enoxaparin 2021-0 Yes 40mg 40 mg, Unive rs (LOVENOX) 4- Subcutaneo ity of injection 02:00: us, QHS, [place] 40 [place] 00 First dose Medical on Sat06/19/21 at 2100, Until Discontinu ed, Routine enoxaparin 0 Yes 40mg 40 mg, Unive rs (LOVENOX) 06-20 Subcutaneo ity of injection 02:00: us, QHS, [place] 40 mg 00 First dose Medical on Sat Branch 06/19/21 at 2100, Until Discontinu ed, Routine pregabalin 2021-0 Yes 75mg 75 mg, Unive rs (LYRICA) 4-19 Oral, BID, ity o f capsule 75 01:00: First dose [place] mg 00 on Sat Medical 06/19/21 at Branch 2000, Until Discontinu ed, Routine pregabalin 2021-0 Yes 75mg 75 mg, Unive rs (LYRICA) 4-19 Oral, BID, ity o f capsule 75 01:00: First dose [place] mg 00 on [facility] 06/19/21 at Branch 2000, Until Discontinu ed, Routine hydroCHLORO 2022-0 Yes 12.5mg 12.5 mg, Univers thiazide 4-18 Oral, ity of (ESIDRIX) 14:00: DAILY, [place] capsule 00 First dose Medica l 12.5 mg on [facility] 06/19/21 at 0900, Until Discontinu ed, Routine losartan 2021-0 Yes 50mg 50 mg, Univers (COZAAR) 4-18 [...] at 0900, Until Discontinu ed, Routine hydroCHLORO 2021-0 Yes 12.5mg 12.5 mg, Univers thiazide -18 Oral, ity of (ESIDRIX) 14:00: DAILY, [place] capsule 00 First dose Medica l 12.5 mg on [facility] 06/19/21 at 0900, Until Discontinu ed, Routine losartan 2021-0 Yes 50mg 50 mg, Univers (COZAAR) 4-18 [...] at 0900, Until Discontinu ed, Routine methocarbam 2-0 Yes 500mg 500 mg, Un lazara oL 4-18 Oral, ity of (ROBAXIN) 13:10: QIDPRN, [place] tablet 500 56 Starting Medic al mg on [facility] 06/19/21 at 0810, Until Discontinu ed, Routine, Muscle Spasms methocarbam 2-0 Yes 500mg 500 mg, Un lazara oL 4-18 Oral, ity of (ROBAXIN) 13:10: [place]PR[place], [place] tablet 500 56 Starting Medic al mg on Sat [place] 06/19/21 at 0810, Until Discontinu ed, Routine, Muscle Spasms melatonin Yes 3mg 3 mg, Univers (MELATIN) 4-18 Oral, ity of tablet 3 mg 13:10: QHSPRN, [place] 30 Starting Medical on Sat [place] 06/19/21 at 0810, Until Discontinu ed, Routine, Insomnia melatonin Yes 3mg 3 mg, Univers (MELATIN) 4-18 Oral, ity of tablet 3 mg 13:10: QHSPRN, [place] 30 Starting Medical on Sat [place] 06/19/21 at 0810, Until Discontinu ed, Routine, Insomnia morpHINE 2021-0 2021- No 4mg 4 mg, Slow Un [place] injection 4 06-19- IV Push, ity of mg 08:40: 08:39 [facility] [place] 31 :31 Starting Medical on Sat [place] 06/19/21 at 0340, Until Sat06/20/21 at 0339, Routine, Pain (scale 7-10) morpHINE 0 2021- No 4mg 4 mg, Slow Un laz[place] injection 4 06-19- IV Push, ity of mg 08:40: 08:39 [facility], [place] 31 :31 Starting Medical on [facility] 06/19/21 at 0340, Until Sat06/20/21 at 0339, Routine, Pain (scale 7-10) ibuprofen Yes 600mg Take 600 Uni vers 600 mg 4-18 mg by ity of tablet 08:11: mouth [place] 10 every 6 Medical (six) Branch hours [...] by mouth ity of tablet 08:11: daily. [place] [id number] Medical Branch losartan-hy 0 Yes 1{tbl} Take [...] Branch daily. Indication s: chronic pain ceFEPIme Yes 2000mg 2,000 mg, Un lazara (MAXIPIME) 4-18 IV ity of 2,000 mg in 01:45: Piggyback, [place] NaCl 0.9% 00 Q8H ABX, Medica l (NS) 50 mL First dose [facility] MINI-BAG on 06/18/21 at 2045, Until Discontinu ed, Administer over 4 Hours, 50 mL
Reas on for Anti-Infec tive: Documented Infection< br>Documen cesar Infection Site: Joint
D uration of Therapy: 7 days ceFEPIme 2-0 2021- No 2000mg 2,000 mg, U nivers (MAXIPIME) 06-19-19 IV ity of 2,000 mg in 01:45: 15:43 [place], [place] NaCl 0.9% 00 :04 Q8H ABX, Medica l (NS) 50 mL First dose Bra [place]ah MINI-BAG on Sat06/18/21 at 2045, Until Discontinu ed, Administer over 4 Hours, 50 mL
Reas on for Anti-Infec tive: Documented Infection< br>Documen cesar Infection Site: Joint
D uration of Therapy: 7 days bacitracin 0 Yes PRN, Univers 500 unit/g 06-19 Starting ity o f ointment 30 00:23: on [place] g tube 00 06/18/21 at [facility] 1923, Branch Until Discontinu ed, Routine, Intra-op bacitracin 0 Yes PRN, Univers 500 unit/g 06-19 Starting ity o f ointment 30 00:23: [place] g tube 00 06/18/21 at [facility] 1923, Branch Until Discontinu ed, Routine, Intra-op ondansetron 0 Yes 4mg 4 mg, Slow Univers (ZOFRAN 4-17 IV Push, ity of (PF)) 22:32: PRN, 1 [place] injection 4 14 dose, Medical mg Starting Branch on [place] 06/18/21 at 1732, Until Discontinu ed, Routine, Nausea and Vomiting (N/V), PACU FENTanyl PF 0 Yes 25ug 25 mcg, Uni vers (SUBLIMAZE -17 Slow IV ity of (PF)) 22:32: Push, [place] injection 14 Q5MIN PRN, Medi jessica 25 mcg 4 doses, Branch Starting on Sat06/18/21 at 1732, Until Discontinu ed, Routine, Pain (scale 4-6), PACU ondansetron 0 Yes 4mg 4 mg, Slow Univers (ZOFRAN 4-17 IV Push, ity of (PF)) 22:32: PRN, 1 [place] injection 4 14 dose, Medical mg Starting Branch on [place] 06/18/21 at 1732, Until Discontinu ed, Routine, Nausea and Vomiting (N/V), PACU FENTanyl PF 2021- No 25ug 25 mcg, Un lazara (SUBLIMAZE 06-18 Slow IV ity o f (PF)) 22:32: 08:09 Push, [place] injection 14 :54 Q5MIN PRN, Medi jessica 25 mcg 4 doses, Branch Starting on [place] 06/18/21 at 1732, Until Sat06/20/21 at 0309, Routine, Pain (scale 4-6), PACU ceFEPIme 2021- No 1000mg 1,000 mg, U nivers (MAXIPIME) 06-18 IV ity of 1,000 mg in 18:15: 22:05 [place], [place] NaCl 0.9% 00 :00 ONCE, 1 Medical (NS) 50 mL dose, On Bran h MINI-BAG [place] 06/18/21 at 1315, Administer over 240 Minutes, 50 mL
Reas on for Anti-Infec tive: Documented Infection< br>Documen cesar Infection Site: Joint<br&g t;Duration of Therapy: 7 days gadobenate 2021- No [id number] .2mL/kg 21.38 mL Univers dimeglumine 06-18 9104 (0.2 mL/kg i ty of (MULTIHANCE 17:15: 17:15 ?106.9 Noe as -20 mL) 00 :00 kg), Medical injection Intravenou Bran ch 21.38 mL s, ONCE, 1 dose, On [place] 06/18/21 at 1215, Routine ondansetron 2021-0 Yes 4mg 4 mg, Slow Univers (ZOFRAN 4-17 IV Push, ity of (PF)) 06:54: Q6HPRN, [place] injection 4 33 Starting Medi jessica mg on [place] Branch 06/18/21 at 0154, Until Discontinu ed, Routine, Nausea and Vomiting (N/V) ondansetron 2021-0 Yes 4mg 4 mg, Slow Univers (ZOFRAN 4-17 IV Push, ity of (PF)) 06:54: Q6HPRN, [place] injection 4 33 Starting Medi jessica mg on [facility] 06/18/21 at 0154, Until Discontinu ed, Routine, Nausea and Vomiting (N/V) morpHINE 2021- No 4mg 4 mg, Slow Un lazara injection 4 06-18 IV Push, ity of mg 06:54: 06:53 Q4HPRN, [place] 31 :31 Starting Medical on [place] 06/18/21 at 0154, Until Sat06/19/21 at 0153, Routine, Pain (scale 7-10) HYDROcodone 2021- No 1{tbl} 1 tablet, Univers -acetaminop 06-18 Oral, ity of hen (NORCO 06:54: 06:53 Q6HPRN, [place] 5) 5-325 mg 29 :29 Starting Medi jessica tablet 1 on [place] [facility] tablet 06/18/21 at 0154, Until Sat06/20/21 at 0153, Routine, Pain (scale 4-6) HYDROcodone 2021- No 1{tbl} 1 tablet, Univers -acetaminop 06-18 Oral, ity of hen (NORCO 06:54: 06:53 Q6HPRN, [place] 5) 5-325 mg 29 :29 Starting Medi jessica tablet 1 on [place] tablet 06/18/21 at 0154, Until Sat06/20/21 at 0153, Routine, Pain (scale 4-6) acetaminoph 2021-0 Yes 650mg 650 mg, Un lazara en 06-18 Oral, ity of (TYLENOL) 06:54: Q6HPRN, [place] tablet 650 27 Starting Medic al mg on [place] 06/18/21 at 0154, Until Discontinu ed, Routine, Pain (scale 1-3) acetaminoph 2021-0 Yes 650mg 650 mg, Un lazara en 17 Oral, ity of (TYLENOL) 06:54: Q6HPRN, [place] tablet 650 27 Starting Medic al mg on [place] 06/18/21 at 0154, Until Discontinu ed, Routine, Pain (scale 1-3) morpHINE 2021- No 4mg 4 mg, Slow Un lazara injection 4 06-18 IV Push, ity of mg 06:00: 06:21 ONCE, 1 [place] 00 :00 dose, On Medical [place] 06/18/21 at 0100, STAT HYDROcodone 2021- No 1{tbl} 1 tablet, Univers -acetaminop 06-18-17 Oral, ity of hen (NORCO 04:00: 03:42 ONCE, 1 [place] 5) 5-325 mg 00 :00 dose, On Medi jessica tablet 1 Sat Branch tablet 06/17/21 at 2300, [place] ibuprofen 2021-2021- No 600mg Q6H Take 1 [facility] [place] (ADVIL) 600 -10 10-[address] MG tablet 00:00: 00:00 (600 mg Hosp mi 00 :00 total) by l mouth every 6 (six) hours as needed for mild pain for up to 30 doses. ibuprofen 2021-0 2021- No 600mg Q6H Take 1 [facility] [place] (ADVIL) 600 -10 10-[address] MG tablet 00:00: 00:00 (600 mg Hosp mi 00 :00 total) by l mouth every 6 (six) hours as needed for mild pain for up to 30 doses. ibuprofen 2021-0 2022- No 600mg Q6H Take 1 [facility] [place] (ADVIL) 600 -10 10-[address] MG tablet 00:00: 00:00 (600 mg Hosp mi 00 :00 total) by l mouth every 6 (six) hours as needed for mild pain for up to 30 doses. ibuprofen 2021-0 2- No 600mg Q6H Take 1 [facility] [place] (ADVIL) 600 -10 10-[address] MG tablet 00:00: 00:00 (600 mg Hosp mi 00 :00 total) by l mouth every 6 (six) hours as needed for mild pain for up to 30 doses. ibuprofen 2021-0 2022- No 600mg Q6H Take 1 [facility] [place] (ADVIL) 600 4-08 09-[address] MG tablet 00:00: 00:00 (600 mg Hosp mi 00 :00 total) by l mouth every 6 (six) hours as needed for mild pain for up to 30 doses. ibuprofen 2021-0 2022- No 600mg Q6H Take 1 [facility] [place] (ADVIL) 600 4-08 09-[address] MG tablet 00:00: 00:00 (600 mg Hosp mi 00 :00 total) by l mouth every 6 (six) hours as needed for mild pain for up to 30 doses. ibuprofen 2022-0 2022- No 600mg Q6H Take 1 [facility] [place] (ADVIL) 600 4-08 09-[address] MG tablet 00:00: 00:00 (600 mg Hosp mi 00 :00 total) by l mouth every 6 (six) hours as needed for mild pain for up to 30 doses. ibuprofen 2022-0 2022- No 600mg Q6H Take 1 [facility] [place] (ADVIL) 600 4-08 09-[address] MG tablet 00:00: 00:00 (600 mg Hosp mi 00 :00 total) by l mouth every 6 (six) hours as needed for mild pain for up to 30 doses. ibuprofen 2021-0 2022- No 600mg Q6H Take 1 [facility] [place] (ADVIL) 600 4-08 09-[address] MG tablet 00:00: 00:00 (600 mg Hosp mi 00 :00 total) by l mouth every 6 (six) hours as needed for mild pain for up to 30 doses. ibuprofen 2021-0 2022- No 600mg Q6H Take 1 [facility] [place] (ADVIL) 600 4-08 09-[address] MG tablet 00:00: 00:00 (600 mg Hosp mi 00 :00 total) by l mouth every 6 (six) hours as needed for mild pain for up to 30 doses. ibuprofen 2-0 2022- No 600mg Q6H Take 1 [facility] [place] (ADVIL) 600 4-08 09-[address] MG tablet 00:00: 00:00 (600 mg Hosp mi 00 :00 total) by l mouth every 6 (six) hours as needed for mild pain for up to 30 doses. ibuprofen 2022-0 2022- No 600mg Q6H Take 1 Meth [place] (ADVIL) 600 4-08 09-[address] MG tablet 00:00: 00:00 (600 mg Hosp mi 00 :00 total) by l mouth every 6 (six) hours as needed for mild pain for up to 30 doses. ibuprofen 2022-0 2022- No 600mg Q6H Take 1 Meth [...] 1{tbl} Q4H Take 1 [facility] cetaminophe 4-10 05- tablet by st n 00:00: 04:59 mouth Hospita (PERCOCET) 00 :00 every 4 l 5-325 mg (four) per tablet hours as needed for moderate pain for up to 5 days .acute pain. Max Daily Amount: 6 tablets oxyCODone-a 1{tbl} Q4H Take 1 [facility] cetaminophe 06-09- tablet by st n 00:00: 04:59 mouth [...] Max Daily Amount: 6 [place] [id number] 1{tbl} Q4H Take 1 [facility] cetaminophe 06-[address] n 00:00: 04:59 mouth Hospita (PERCOCET) 00 :00 every 4 l 5-325 mg (four) per tablet hours as needed for moderate pain for up to 5 days .acute pain. Max Daily Amount: 6 tablets oxyCODone-a 2021- No [id number] 1{tbl} Q4H Take 1 [facility] cetaminophe 06-[address] n 00:00: 04:59 [facility] (PERCOCET) 00 :00 every 4 l 5-325 mg (four) per tablet hours as needed for moderate pain for up to 5 days .acute pain. Max Daily Amount: 6 tablets predniSONE No [id number] 50mg QD Take 1 [facility] (DELTASONE) 04-11 tablet (50 s t 50 mg 00:00: 05:59 mg total) [facility] tablet 00 :00 by mouth l daily for 5 days. predniSONE 2021- No [id number] 50mg QD Take 1 [facility] (DELTASONE) 04-11 tablet (50 s t 50 mg 00:00: 05:59 mg total) [facility] a tablet 00 :00 by mouth l daily for 5 days. predniSONE 2021- No [id number] 50mg QD Take 1 [facility] (DELTASONE) 04-11 tablet (50 s t 50 mg 00:00: 05:59 mg total) [facility] a tablet 00 :00 by mouth l daily for 5 days. predniSONE 2021- No [id number] 50mg QD Take 1 [facility] (DELTASONE) 04-11 tablet (50 s t 50 mg 00:00: 05:59 mg total) [facility] tablet 00 :00 by mouth l daily for 5 days. predniSONE 2021- No [id number] 50mg QD Take 1 [facility] (DELTASONE) 04-11 tablet (50 s t 50 mg 00:00: 05:59 mg total) [facility] a tablet 00 :00 by mouth l daily for 5 days. predniSONE 2021- No [id number] 50mg QD Take 1 [facility] (DELTASONE) 04-11 tablet (50 s t 50 mg 00:00: 05:59 mg total) [facility] 00 :00 by mouth l daily for 5 days. predniSONE 2021- No [id number] 50mg QD Take 1 [facility] (DELTASONE) 04-11 tablet (50 s t 50 mg 00:00: 05:59 mg total) [facility] 00 :00 by mouth l daily for 5 days. predniSONE 2021- No [id number] 50mg QD Take 1 [facility] (DELTASONE) 04-11 tablet (50 s t 50 mg 00:00: 05:59 mg total) [facility] 00 :00 by mouth l daily for 5 days. predniSONE 2021- No [id number] 50mg QD Take 1 [facility] (DELTASONE) 04-11 tablet (50 s t 50 mg 00:00: 05:59 mg total) [facility] 00 :00 by mouth l daily for 5 days. predniSONE 2021- No [id number] 50mg QD Take 1 [facility] (DELTASONE) 04-11 tablet (50 s t 50 mg 00:00: 05:59 mg total) [facility] 00 :00 by mouth l daily for 5 days. predniSONE 2021- No [id number] 50mg QD Take 1 [facility] (DELTASONE) 04-11 tablet (50 s t 50 mg 00:00: 05:59 mg total) [facility] 00 :00 by mouth l daily for 5 days. predniSONE 2021- No [id number] 50mg QD Take 1 [facility] (DELTASONE) 04-11 tablet (50 s t 50 mg 00:00: 05:59 mg total) [facility] 00 :00 by mouth l daily for 5 days. triamcinolo 2021- No [id number] Q.5D Apply [facility] 04[facility] (KENALOG) 00:00: 05:59 2 (two) [facility] 0.1 % cream 00 :00 times a l day for 21 days. Do not apply for longer than 14 days continuous ly. triamcinolo 2021- No [id number] Q.5D Apply [facility] 04[facility] (KENALOG) 00:00: 05:59 2 (two) [facility] 0.1 % cream 00 :00 times a l day for 21 days. Do not apply for longer than 14 days continuous ly. triamcinolo 2021- No [id number] Q.5D Apply [facility] ne 04-[address] (KENALOG) 00:00: 05:59 2 (two) [facility] 0.1 % cream 00 :00 times a l day for 21 days. Do not apply for longer than 14 days continuous ly. triamcinolo 2021- No [id number] Q.5D Apply [facility] (KENALOG) 00:00: 05:59 2 (two) [facility] 0.1 % cream 00 :00 times a l day for 21 days. Do not apply for longer than 14 days continuous ly. triamcinolo 2021- No [id number] Q.5D Apply [facility] 04-06- topically st (KENALOG) 00:00: 05:59 2 (two) [facility] 0.1 % cream 00 :00 times a l day for 21 days. Do not apply for longer than 14 days continuous ly. triamcinolo 2021- No [id number] Q.5D Apply [facility] 04-06-[address] (KENALOG) 00:00: 05:59 2 (two) [facility] 0.1 % cream 00 :00 times a l day for 21 days. Do not apply for longer than 14 days continuous ly. triamcinolo 2021- No [id number] Q.5D Apply [facility] 04-06-[address] (KENALOG) 00:00: 05:59 2 (two) [facility] 0.1 % cream 00 :00 times a l day for 21 days. Do not apply for longer than 14 days continuous ly. triamcinolo 2021- No [id number] Q.5D Apply [facility] 04-[address] (KENALOG) 00:00: 05:59 2 (two) [facility] 0.1 % cream 00 :00 times a l day for 21 days. Do not apply for longer than 14 days continuous ly. triamcinolo 2021- No [id number] Q.5D Apply [facility] 04-[address] (KENALOG) 00:00: 05:59 2 (two) [facility] 0.1 % cream 00 :00 times a l day for 21 days. Do not apply for longer than 14 days continuous ly. triamcinolo 2021- No [id number] Q.5D Apply [facility] 04-[address] (KENALOG) 00:00: 05:59 2 (two) [facility] 0.1 % cream 00 :00 times a l day for 21 days. Do not apply for longer than 14 days continuous ly. triamcinolo 2021- No [id number] Q.5D Apply [facility] 04-[address] (KENALOG) 00:00: 05:59 2 (two) [facility] 0.1 % cream 00 :00 times a l day for 21 days. Do not apply for longer than 14 days continuous ly. triamcinolo 2021- No [id number] Q.5D Apply [facility] 04-[address] (KENALOG) 00:00: 05:59 2 (two) [facility] 0.1 % cream 00 :00 times a l day for 21 days. Do not apply for longer than 14 days continuous ly. triamcinolo 2021- No [id number] Q.5D Apply [facility] 04[facility] (KENALOG) 00:00: 05:59 2 (two) [facility] 0.1 % cream 00 :00 times a l day for 21 days. Do not apply for longer than 14 days continuous ly. diclofenac 2021- No [id number] Q.25D Apply [facility] (VOLTAREN) 03-29- topically st 1 % gel 00:00: 00:00 4 (four) [facility] 00 :00 times a l day. diclofenac 2021- No [id number] Q.25D Apply [facility] (VOLTAREN) 03-29-[address] 1 % gel 00:00: 00:00 4 (four) [facility] 00 :00 times a l day. diclofenac 2021- No [id number] Q.25D Apply [facility] (VOLTAREN) 03-29- topically st 1 % gel 00:00: 00:00 4 (four) [facility] 00 :00 times a l day. diclofenac 2021- No [id number] Q.25D Apply [facility] (VOLTAREN) 03-29- topically st 1 % gel 00:00: 00:00 4 (four) [facility] 00 :00 times a l day. diclofenac 2021- No [id number] Q.25D Apply [facility] (VOLTAREN) 03-29- topically st 1 % gel 00:00: 00:00 4 (four) [facility] 00 :00 times a l day. diclofenac 2021- No [id number] Q.25D Apply [facility] (VOLTAREN) 03-29- topically st 1 % gel 00:00: 00:00 4 (four) [facility] 00 :00 times a l day. diclofenac 2021- No [id number] Q.25D Apply [facility] (VOLTAREN) 03-29- topically st 1 % gel 00:00: 00:00 4 (four) [facility] 00 :00 times a l day. diclofenac 2021-2021- No [id number] Q.25D Apply [facility] (VOLTAREN) 03-29-[address] 1 % gel 00:00: 00:00 4 (four) [facility] 00 :00 times a l day. diclofenac 2021- No [id number] Q.25D Apply [facility] (VOLTAREN) 03-29- topically st 1 % gel 00:00: 00:00 4 (four) [facility] 00 :00 times a l day. diclofenac 2021-0 2- No [id number] Q.25D Apply [facility] (VOLTAREN) 03-29- topically st 1 % gel 00:00: 00:00 4 (four) [facility] 00 :00 times a l day. diclofenac 2021-0 2022- No [id number] Q.25D Apply [facility] (VOLTAREN) 03-29- topically st 1 % gel 00:00: 00:00 4 (four) [facility] 00 :00 times a l day. diclofenac 2021-0 2- No [id number] Q.25D Apply [facility] (VOLTAREN) 03-29- topically st 1 % gel 00:00: 00:00 4 (four) [facility] 00 :00 times a l day. diclofenac 2021-0 2- No [id number] Q.25D Apply [facility] (VOLTAREN) 03-29- topically st 1 % gel 00:00: 00:00 4 (four) [facility] 00 :00 times a l day. losartan-hy 2022- No 1{tbl} QD Take 1 [facility] drochloroth 03-[address] iazide 00:00: 05:59 mouth [facility] (Hyzaar) 00 :00 daily. l 50-12.5 mg per tablet losartan-hy 2021-2022- No 1{tbl} QD Take 1 [facility] [...] daily. l 50-12.5 mg per tablet losartan-0 2022- No 1{tbl} QD Take 1 [facility] drochloroth 03-[address] iazide 00:00: 05:59 mouth [facility] (Hyzaar) 00 :00 daily. l 50-12.5 mg per tablet losartan-0 2022- No 1{tbl} QD Take 1 [facility] drochloroth 03-[address] iazide 00:00: 05:59 mouth [facility] (Hyzaar) 00 :00 daily. l 50-12.5 mg per tablet losartan-0 2022- No 1{tbl} QD Take 1 [facility] drochloroth 03-[address] iazide 00:00: 05:59 mouth [facility] (Hyzaar) 00 :00 daily. l 50-12.5 mg per tablet losartan-hy 2022- No 1{tbl} QD Take 1 [facility] drochloroth 03-[address] iazide 00:00: 05:59 mouth [facility] (Hyzaar) 00 :00 daily. l 50-12.5 mg per tablet amLODIPine 2021-0 2- No 10mg QD Take 1 [facility] (NORVASC) 03-07 tablet (10 st 10 mg 00:00: 00:00 mg total) [facility] 00 :00 by mouth l daily. amLODIPine 2021-2- No 10mg QD Take 1 [facility] (NORVASC) 03-07 tablet (10 st 10 mg 00:00: 00:00 mg total) [facility] 00 :00 by mouth l daily. amLODIPine 2021-2021- No 10mg QD Take 1 [facility] (NORVASC) 03-07 tablet (10 st 10 mg 00:00: 00:00 mg total) [facility] 00 :00 by mouth l daily. amLODIPine 2021-0 2021- No 10mg QD Take 1 [facility] (NORVASC) 03-07 tablet (10 st 10 mg 00:00: 00:00 mg total) [facility] 00 :00 by mouth l daily. amLODIPine 2021-0 2- No 10mg QD Take 1 [facility] (NORVASC) 03-07 tablet (10 st 10 mg 00:00: 00:00 mg total) [facility] 00 :00 by mouth l daily. amLODIPine 2021-0 2- No 10mg QD Take 1 [facility] (NORVASC) 03-07- tablet (10 st 10 mg 00:00: 00:00 mg total) [facility] 00 :00 by mouth l daily. amLODIPine 2021-0 2- No 10mg QD Take 1 [facility] (NORVASC) 03-07- tablet (10 st 10 mg 00:00: 00:00 [...] l tablet daily for 90 days. pregabalin 2020-03 No [id number] 75mg Q.5D Take 1 [facility] (Lyrica) 75 2-30 12-[address] MG capsule 00:00: 05:59 (75 mg [facility] 00 :00 total) by l mouth 2 (two) times a day. pregabalin 2020-03 No [id number] 75mg Q.5D Take 1 [facility] (Lyrica) 75 2-30 12-[address] MG capsule 00:00: 05:59 (75 mg [facility] 00 :00 total) by l mouth 2 (two) times a day. pregabalin 2020-2021- No [id number] 75mg Q.5D Take 1 [facility] (Lyrica) 75 2-30 12-[address] MG capsule 00:00: 05:59 (75 mg [facility] 00 :00 total) by l mouth 2 (two) times a day. pregabalin 2020-03- No [id number] 75mg Q.5D Take 1 [facility] (Lyrica) 75 2-30 12-[address] MG capsule 00:00: 05:59 (75 mg [facility] 00 :00 total) by l mouth 2 (two) times a day. pregabalin 2020-03- No [id number] 75mg Q.5D Take 1 [facility] (Lyrica) 75 2-30 12-[address] MG capsule 00:00: 05:59 (75 mg [facility] 00 :00 total) by l mouth 2 (two) times a day. pregabalin 2020-03- No [id number] 75mg Q.5D Take 1 [facility] (Lyrica) 75 2-30 12-[address] MG capsule 00:00: 05:59 (75 mg [facility] 00 :00 total) by l mouth 2 (two) times a day. pregabalin 2020-03- No [id number] 75mg Q.5D Take 1 [facility] (Lyrica) 75 2-30 12-[address] MG capsule 00:00: 05:59 (75 mg [facility] 00 :00 total) by l mouth 2 (two) times a day. pregabalin 2020-03- No [id number] 75mg Q.5D Take 1 [facility] (Lyrica) 75 2-30 12-[address] MG capsule 00:00: 05:59 (75 mg [facility] 00 :00 total) by l mouth 2 (two) times a day. pregabalin 2020-2021- No [id number] 75mg Q.5D Take 1 [facility] (Lyrica) 75 2-30 12-[address] MG capsule 00:00: 05:59 (75 mg [facility] 00 :00 total) by l mouth 2 (two) times a day. pregabalin 2020-03- No [id number] 75mg Q.5D Take 1 [facility] (Lyrica) 75 2-30 12-[address] MG capsule 00:00: 05:59 (75 mg [facility] 00 :00 total) by l mouth 2 (two) times a day. pregabalin 2020-03- No [id number] 75mg Q.5D Take 1 [facility] (Lyrica) 75 2-30 12-[address] MG capsule 00:00: 05:59 (75 mg [facility] 00 :00 total) by l mouth 2 (two) times a day. pregabalin 2020-03- No [id number] 75mg Q.5D Take 1 [facility] (Lyrica) 75 2-30 12-[address] MG capsule 00:00: 05:59 (75 mg [facility] 00 :00 total) by l mouth 2 (two) times a day. pregabalin 2020-03- No [id number] 75mg Q.5D Take 1 [facility] (Lyrica) 75 2-30 12-[address] MG capsule 00:00: 05:59 (75 mg [facility] 00 :00 total) by l mouth 2 (two) times a day. apixaban 2020-03- No [id number] 5mg Q.5D Take 1 [facility] (ELIQUIS) 5 2-30 09-20 tablet (5 st mg tablet 00:00: 00:00 mg total) [facility] 00 :00 by mouth 2 l (two) times a day .blood clot in a deep vein of the extremitie s. apixaban 2020-03- No [id number] 5mg Q.5D Take 1 [facility] (ELIQUIS) 5 2-30 09-20 tablet (5 st mg tablet 00:00: 00:00 mg total) [facility] 00 :00 by mouth 2 l (two) times a day .blood clot in a deep vein of the extremitie s. apixaban 2020-03- No [id number] 5mg Q.5D Take 1 [facility] (ELIQUIS) 5 2-30 09-20 tablet (5 st mg tablet 00:00: 00:00 mg total) [facility] 00 :00 by mouth 2 l (two) times a day .blood clot in a deep vein [facility]. apixaban 2020-03- No [id number] 5mg Q.5D Take 1 [facility] (ELIQUIS) 5 2-30 09-20 tablet (5 st mg tablet 00:00: 00:00 mg total) [facility] 00 :00 by mouth 2 l (two) times a day .blood clot in a deep vein of [facility]. apixaban 2020-03- No [id number] 5mg Q.5D Take 1 [facility] (ELIQUIS) 5 2-30 09-20 tablet (5 st mg tablet 00:00: 00:00 mg total) [facility] 00 :00 by mouth 2 l (two) times a day .blood clot in a deep vein [facility]. apixaban 2020-03- No [id number] 5mg Q.5D Take 1 [facility] (ELIQUIS) 5 2-30 09-20 tablet (5 st mg tablet 00:00: 00:00 mg total) [facility] 00 :00 by mouth 2 l (two) times a day .blood clot in a deep vein [facility]. apixaban 2020-03- No [id number] 5mg Q.5D Take 1 [facility] (ELIQUIS) 5 2-30 09-20 tablet (5 st mg tablet 00:00: 00:00 mg total) [facility] 00 :00 by mouth 2 l (two) times a day .blood clot in a deep vein [facility]. apixaban 2020-03- No [id number] 5mg Q.5D Take 1 [facility] (ELIQUIS) 5 2-30 09-20 tablet (5 st mg tablet 00:00: 00:00 mg total) [facility] 00 :00 by mouth 2 l (two) times a day .blood clot in a deep vein [facility]. apixaban 2020-03- No [id number] 5mg Q.5D Take 1 [facility] (ELIQUIS) 5 2-30 09-20 tablet (5 st mg tablet 00:00: 00:00 mg total) [facility] 00 :00 by mouth 2 l (two) times a day .blood clot in a deep vein [facility]. apixaban 2020-03- No [id number] 5mg Q.5D Take 1 [facility] (ELIQUIS) 5 2-01 12-20 tablet (5 st mg tablet 00:00: 00:00 mg total) [facility] 00 :00 by mouth 2 l (two) times a day .blood clot in a deep vein [facility]. apixaban 2020-03- No [id number] 5mg Q.5D Take 1 [facility] (ELIQUIS) 5 2-01 12-20 tablet (5 st mg tablet 00:00: 00:00 mg total) [facility] 00 :00 by mouth 2 l (two) times a day .blood clot in a deep vein [facility]. apixaban 2020-03- No [id number] 5mg Q.5D Take 1 [facility] (ELIQUIS) 5 -20 tablet (5 st mg tablet 00:00: 00:00 mg total) [facility] 00 :00 by mouth 2 l (two) times a day .blood clot in a deep vein [facility]. apixaban 2020-03- No [id number] 5mg Q.5D Take 1 [facility] (ELIQUIS) 5 2-01 12-20 tablet (5 st mg tablet 00:00: 00:00 mg total) [facility] 00 :00 by mouth 2 l (two) times a day .blood clot in a deep vein [facility]. glimepiride 2020-03- No [id number] 1mg QD Take 1 [facility] (AmaryL) 1 -01 12-08 tablet (1 st MG tablet 00:00: 00:00 mg total) [facility] 00 :00 by mouth l daily before breakfast. glimepiride 2020-03- No [id number] 1mg QD Take 1 [facility] (AmaryL) 1 -01 12-08 tablet (1 st MG tablet 00:00: 00:00 mg total) [facility] 00 :00 by mouth l daily before breakfast. glimepiride 2020-03 No [id number] 1mg QD Take 1 [facility] (AmaryL) 1 -08 tablet (1 st MG tablet 00:00: 00:00 mg total) [facility] 00 :00 by mouth l daily before breakfast. glimepiride 2020-03- No [id number] 1mg QD Take 1 [facility] (AmaryL) 1 -08 tablet (1 st MG tablet 00:00: 00:00 mg total) [facility] 00 :00 by mouth l daily before breakfast. glimepiride 2020-03 No [id number] 1mg QD Take 1 [facility] (AmaryL) 1 - tablet (1 st MG tablet 00:00: 00:00 mg total) [facility] 00 :00 by mouth l daily before breakfast. glimepiride 2020-03 No [id number] 1mg QD Take 1 [facility] (AmaryL) 1 - tablet (1 st MG tablet 00:00: 00:00 mg total) [facility] 00 :00 by mouth l daily before breakfast. glimepiride 2020-03- No [id number] 1mg QD Take 1 [facility] (AmaryL) 1 - tablet (1 st MG tablet 00:00: 00:00 mg total) [facility] 00 :00 by mouth l daily before breakfast. glimepiride 2020-03- No [id number] 1mg QD Take 1 [facility] (AmaryL) 1 - tablet (1 st MG tablet 00:00: 00:00 mg total) [facility] 00 :00 by mouth l daily before breakfast. glimepiride 2020-03- No [id number] 1mg QD Take 1 [facility] (AmaryL) 1 -08 tablet (1 st MG tablet 00:00: 00:00 mg total) [facility] 00 :00 by mouth l daily before breakfast. glimepiride 2020-03- No [id number] 1mg QD Take 1 [facility] (AmaryL) 1 -08 tablet (1 st MG tablet 00:00: 00:00 mg total) [facility] 00 :00 by mouth l daily before breakfast. glimepiride 2020-03 No [id number] 1mg QD Take 1 [facility] (AmaryL) 1 11-09 tablet (1 st MG tablet 00:00: 00:00 mg total) [facility] 00 :00 by mouth l daily before breakfast. glimepiride 2020-03- No [id number] 1mg QD Take 1 [facility] (AmaryL) 1 11-09 tablet (1 st MG tablet 00:00: 00:00 mg total) [facility] 00 :00 by mouth l daily before breakfast. glimepiride 2020-03- No [id number] 1mg QD Take 1 [facility] (AmaryL) 1 11-09 tablet (1 st MG tablet 00:00: 00:00 mg total) [facility] 00 :00 by mouth l daily before breakfast. DULoxetine 2020-03- No [id number] 20mg QD Take 1 [facility] (Cymbalta) 11-[address] 20 MG 00:00: 00:00 (20 mg [facility] capsule 00 :00 total) by l mouth daily. DULoxetine 2020-03- No [id number] 20mg QD Take 1 [facility] (Cymbalta) 11-[address] 20 MG 00:00: 00:00 (20 mg [facility] capsule 00 :00 total) by l mouth daily. DULoxetine 2020-03- No [id number] 20mg QD Take 1 [facility] (Cymbalta) 11-[address] 20 MG 00:00: 00:00 (20 mg [facility] capsule 00 :00 total) by l mouth daily. DULoxetine 2020-03- No [id number] 20mg QD Take 1 [facility] (Cymbalta) 11-[address] 20 MG 00:00: 00:00 (20 mg [facility] capsule 00 :00 total) by l mouth daily. DULoxetine 2020-03- No [id number] 20mg QD Take 1 [facility] (Cymbalta) 11-[address] 20 MG 00:00: 00:00 (20 mg [facility] capsule 00 :00 total) by l mouth daily. DULoxetine 2020-03- No [id number] 20mg QD Take 1 [facility] (Cymbalta) 11-[address] 20 MG 00:00: 00:00 (20 mg [facility] capsule 00 :00 total) by l mouth daily. DULoxetine 2020-03- No [id number] 20mg QD Take 1 [facility] (Cymbalta) 11-[address] 20 MG 00:00: 00:00 (20 mg [facility] capsule 00 :00 total) by l mouth daily. DULoxetine 2020-03- No [id number] 20mg QD Take 1 [facility] (Cymbalta) 11-[address] 20 MG 00:00: 00:00 (20 mg [facility] capsule 00 :00 total) by l mouth daily. DULoxetine 2020-03- No [id number] 20mg QD Take 1 [facility] (Cymbalta) 11-[address] 20 MG 00:00: 00:00 (20 mg [facility] capsule 00 :00 total) by l mouth daily. DULoxetine 2020-03- No [id number] 20mg QD Take 1 [facility] (Cymbalta) 11-[address] 20 MG 00:00: 00:00 (20 mg [facility] capsule 00 :00 total) by l mouth daily. DULoxetine 2020-03- No [id number] 20mg QD Take 1 [facility] (Cymbalta) 11-[address] 20 MG 00:00: 00:00 (20 mg [facility] capsule 00 :00 total) by l mouth daily. DULoxetine 2020-03- No [id number] 20mg QD Take 1 [facility] (Cymbalta) 11-[address] 20 MG 00:00: 00:00 (20 mg [facility] capsule 00 :00 total) by l mouth daily. DULoxetine 2020-03- No [id number] 20mg QD Take 1 [facility] (Cymbalta) 11-[address] 20 MG 00:00: 00:00 (20 mg [facility] capsule 00 :00 total) by l mouth daily. methocarbam 2020-03- No [id number] 500mg Q.25D Take 1 [facility] 207[facility] (ROBAXIN) 00:00: 00:00 (500 mg [facility] 500 MG 00 :00 total) by l tablet mouth 4 (four) times a day as needed for muscle spasms. methocarbam 2020-03- No [id number] 500mg Q.25D Take 1 [facility] 07[facility] (ROBAXIN) 00:00: 00:00 (500 mg [facility] 500 MG 00 :00 total) by l tablet mouth 4 (four) times a day as needed for muscle spasms. methocarbam 2020-03- No [id number] 500mg Q.25D Take 1 [facility] 207[facility] (ROBAXIN) 00:00: 00:00 (500 mg [facility] 500 MG 00 :00 total) by l tablet mouth 4 (four) times a day as needed for muscle spasms. methocarbam 2020-03- No [id number] 500mg Q.25D Take 1 [facility] 07[facility] (ROBAXIN) 00:00: 00:00 (500 mg [facility] 500 MG 00 :00 total) by l tablet mouth 4 (four) times a day as needed for muscle spasms. methocarbam 2020-03- No [id number] 500mg Q.25D Take 1 [facility] 07[facility] (ROBAXIN) 00:00: 00:00 (500 mg [facility] 500 MG 00 :00 total) by l tablet mouth 4 (four) times a day as needed for muscle spasms. methocarbam 2020-03- No [id number] 500mg Q.25D Take 1 [facility] 2[facility]07[facility] (ROBAXIN) 00:00: 00:00 (500 mg [facility] 500 MG 00 :00 total) by l tablet mouth 4 (four) times a day as needed for muscle spasms. methocarbam 2020-03- No [id number] 500mg Q.25D Take 1 [facility] 07[facility] (ROBAXIN) 00:00: 00:00 (500 mg [facility] 500 MG 00 :00 total) by l tablet mouth 4 (four) times a day as needed for muscle spasms. methocarbam 2020-03- No [id number] 500mg Q.25D Take 1 [facility] 07[facility] (ROBAXIN) 00:00: 00:00 (500 mg [facility] 500 MG 00 :00 total) by l tablet mouth 4 (four) times a day as needed for muscle spasms. methocarbam 2020-03- No [id number] 500mg Q.25D Take 1 [facility] 07[facility] (ROBAXIN) 00:00: 00:00 (500 mg [facility] 500 MG 00 :00 total) by l tablet mouth 4 (four) times a day as needed for muscle spasms. methocarbam 2020-03- No [id number] 500mg Q.25D Take 1 [facility] 07[facility] (ROBAXIN) 00:00: 00:00 (500 mg [facility] 500 MG 00 :00 total) by l tablet mouth 4 (four) times a day as needed for muscle spasms. methocarbam 2020-03- No [id number] 500mg Q.25D Take 1 [facility] 07[facility] (ROBAXIN) 00:00: 00:00 (500 mg [facility] 500 MG 00 :00 total) by l tablet mouth 4 (four) times a day as needed for muscle spasms. methocarbam 2020-03- No [id number] 500mg Q.25D Take 1 [facility] 07[facility] (ROBAXIN) 00:00: 00:00 (500 mg [facility] 500 MG 00 :00 total) by l tablet mouth 4 (four) times a day as needed for muscle spasms. methocarbam 2020-03- No [id number] 500mg Q.25D Take 1 [facility] 07[facility] (ROBAXIN) 00:00: 00:00 (500 mg [facility] 500 MG 00 :00 total) by l tablet mouth 4 (four) times a day as needed for muscle spasms. methocarbam 2020-03- No [id number] TAKE 1 [facility] 05-01 9104 TABLET(500 st (ROBAXIN) 00:00: 00:00 MG) BY [facility] 500 MG 00 :00 MOUTH FOUR l tablet TIMES DAILY NEEDED FOR MUSCLE SPASMS methocarbam 2020-03- No [id number] TAKE 1 [facility] 05-01 9104 TABLET(500 st (ROBAXIN) 00:00: 00:00 MG) BY [facility] 500 MG 00 :00 MOUTH FOUR l tablet TIMES DAILY NEEDED FOR MUSCLE SPASMS methocarbam 2020-03- No [id number] TAKE 1 [facility] 05-01 9104 TABLET(500 st (ROBAXIN) 00:00: 00:00 MG) BY [facility] 500 MG 00 :00 MOUTH FOUR l tablet TIMES DAILY NEEDED FOR MUSCLE SPASMS methocarbam 2020-03- No [id number] TAKE 1 [facility] 05-01 9104 TABLET(500 st (ROBAXIN) 00:00: 00:00 MG) BY [facility] 500 MG 00 :00 MOUTH FOUR l tablet TIMES DAILY NEEDED FOR MUSCLE SPASMS methocarbam 2020-03- No [id number] TAKE 1 [facility] 05-01 9104 TABLET(500 st (ROBAXIN) 00:00: 00:00 MG) BY [facility] 500 MG 00 :00 MOUTH FOUR l tablet TIMES DAILY NEEDED FOR MUSCLE SPASMS methocarbam 2020-03- No [id number] TAKE 1 [facility] 05-01 9104 TABLET(500 st (ROBAXIN) 00:00: 00:00 MG) BY [facility] 500 MG 00 :00 MOUTH FOUR l tablet TIMES DAILY NEEDED FOR MUSCLE SPASMS methocarbam 2020-03- No [id number] TAKE 1 [facility] 05-01 9104 TABLET(500 st (ROBAXIN) 00:00: 00:00 MG) BY [facility] 500 MG 00 :00 MOUTH FOUR l tablet TIMES DAILY NEEDED FOR MUSCLE SPASMS pantoprazol 2020-03- No QD daily. [facility] st (PROTONIX) 00:00: 00:00 Hospit a 40 [...] [facility] -acetaminop 1-18 } tablets by [facility] ([place]) 00:00: mouth 4 Hos amadou 10-325 mg 00 (four) l per tablet times a day. HYDROcodone 2020-03 Yes 150{tbl Q.25D Take 150 [facility] -acetaminop 1-18 } tablets by [facility] ([place]) 00:00: mouth 4 Hos amadou 10-325 mg 00 (four) l per tablet times a day. HYDROcodone 2020-03 Yes 150{tbl Q.25D Take 150 [facility] -acetaminop 1-18 } tablets by [facility] ([place]) 00:00: mouth 4 Hos amadou 10-325 mg 00 (four) l per tablet times a day. HYDROcodone 2020-03 Yes 150{tbl Q.25D Take 150 [facility] -acetaminop 1-18 } tablets by [facility] ([place]) 00:00: mouth 4 Hos amadou 10-325 mg 00 (four) l per tablet times a day. HYDROcodone 2020-03 Yes 150{tbl Q.25D Take 150 [facility] -acetaminop 1-18 } tablets by [facility] ([place]) 00:00: mouth 4 [facility] 10-325 mg 00 (four) l per tablet times a day. HYDROcodone 2020-03 Yes 150{tbl Q.25D Take 150 [facility] -acetaminop 1-18 } tablets by [facility] ([place]) 00:00: mouth 4 [facility] 10-325 mg 00 (four) l per tablet times a day. HYDROcodone 2020-03 Yes 150{tbl Q.25D Take 150 [facility] -acetaminop 1-18 } tablets [facility] 00:[facility]: mouth 4 [facility] 10-325 mg 00 (four) l per tablet times a day. HYDROcodone 2020-03 Yes 150{tbl Q.25D Take 150 [facility] -acetaminop 1-18 } tablets by [facility] ([place]) 00:00: mouth 4 [facility] 10-325 mg 00 (four) l per tablet times a day. HYDROcodone 2020-03 Yes 150{tbl Q.25D Take 150 [facility] -acetaminop 1-18 } tablets by [facility] 00:00: mouth 4 [facility] 10-325 mg 00 (four) l per tablet times a day. HYDROcodone 2020-03 Yes 150{tbl Q.25D Take 150 [facility] -acetaminop 1-18 } tablets [facility] 00:00: mouth 4 [facility] 10-325 mg 00 (four) l per tablet times a day. HYDROcodone 2020-03 Yes 150{tbl Q.25D Take 150 [facility] -acetaminop 1-18 } tablets by [facility] ([place]) 00:00: mouth 4 [facility] 10-325 mg 00 (four) l per tablet times a day. HYDROcodone 2020-03 Yes 150{tbl Q.25D Take 150 [facility] -acetaminop 1-18 } tablets by [facility] ([place]) 00:00: mouth 4 [facility] 10-325 mg 00 (four) l per tablet times a day. HYDROcodone 2020-03 Yes 150{tbl Q.25D Take 150 [facility] -acetaminop 1-18 } tablets by [facility] ([place]) 00:00: mouth 4 [facility] 10-325 mg 00 (four) l per tablet times a day. pregabalin 2020- No [id number] 75mg Q.5D Take 1 [facility] ([place]) 75 9- 12-[address] [facility] capsule 00:00: 00:00 (75 mg [facility] 00 :00 total) by l mouth 2 (two) times a day. pregabalin 2020- No [id number] 75mg Q.5D Take 1 [facility] ([place]) 75 11-08 12-[address] MG capsule 00:00: 00:00 (75 mg [facility] 00 :00 total) by l mouth 2 (two) times a day. pregabalin 2020- No [id number] 75mg Q.5D Take 1 [facility] (Lyrica) 75 11-08 12-[address] MG capsule 00:00: 00:00 (75 mg [facility] 00 :00 total) by l mouth 2 (two) times a day. pregabalin 2020- No [id number] 75mg Q.5D Take 1 [facility] (Lyrica) 75 9- 12-[address] MG capsule 00:00: 00:00 (75 mg [facility] 00 :00 total) by l mouth 2 (two) times a day. pregabalin 2020- No [id number] 75mg Q.5D Take 1 [facility] (Lyrica) 75 11-08 12-[address] MG capsule 00:00: 00:00 (75 mg [facility] 00 :00 total) by l mouth 2 (two) times a day. pregabalin 2020- No [id number] 75mg Q.5D Take 1 [facility] (Lyrica) 75 9- 12-[address] MG capsule 00:00: 00:00 (75 mg [facility] 00 :00 total) by l mouth 2 (two) times a day. pregabalin 2020- No [id number] 75mg Q.5D Take 1 [facility] (Lyrica) 75 11-[address] MG capsule 00:00: 00:00 (75 mg [facility] 00 :00 total) by l mouth 2 (two) times a day. DULoxetine No [id number] 20mg QD Take 1 [facility] (Cymbalta) 11-[address] 20 MG 00:00: 00:00 (20 mg [facility] capsule 00 :00 total) by l mouth daily. apixaban 2020- No [id number] 5mg Q.5D Take 1 [facility] (ELIQUIS) 5 11-01 tablet (5 st mg tablet 00:00: 00:00 mg total) [facility] 00 :00 by mouth 2 l (two) times a day .blood clot in a deep vein of the extremitie s. DULoxetine No [id number] 20mg QD Take 1 [facility] (Cymbalta) 11-[address] 20 MG 00:00: 00:00 (20 mg [facility]osp[facility] capsule 00 :00 total) by l mouth daily. apix[place] 2020- [place] [id number] 5mg Q.5D Take 1 [facility] (ELIQUIS) 5 11-01 tablet (5 st mg tablet 00:00: 00:00 mg total) [facility] 00 :00 by mouth 2 l (two) times a day .blood clot in a deep vein of the extremitie s. DULoxetine No [id number] 20mg QD Take 1 [facility] (Cymbalta) 11-[address] 20 MG 00:00: 00:00 (20 mg [facility] capsule 00 :00 total) by l mouth daily. apixaban 2020- [place] [id number] 5mg Q.5D Take 1 [facility] (ELIQUIS) 5 11-01 tablet (5 st mg tablet 00:00: 00:00 mg total) [facility] 00 :00 by mouth 2 l (two) times a day .blood clot in a deep vein of the extremitie s. DULoxetine No [id number] 20mg QD Take 1 [facility] (Cymbalta) 11-[address] 20 MG 00:00: 00:00 (20 mg [facility] capsule 00 :00 total) by l mouth daily. apix[place] 2020- [place] [id number] 5mg Q.5D Take 1 [facility] (ELIQUIS) 5 11-0130 tablet (5 st mg tablet 00:00: 00:00 mg total) [facility] 00 :00 by mouth 2 l (two) times a day .blood [facility] DULoxetine No [id number] 20mg QD Take 1 [facility] (Cymbalta) 11-[address] 20 MG 00:00: 00:00 (20 mg [facility]osp[facility] capsule 00 :00 total) by l mouth daily. apix[place] 2020- [place] [id number] 5mg Q.5D Take 1 [facility] (ELIQUIS) 5 11-01 tablet (5 st mg tablet 00:00: 00:00 mg total) [facility] 00 :00 by mouth 2 l (two) times a day .blood clot in a deep vein of [facility]. DULoxetine No [id number] 20mg QD Take 1 [facility] (Cymbalta) 11-[address] 20 MG 00:00: 00:00 (20 mg [facility]osp[facility] capsule 00 :00 total) by l mouth daily. [place]ix[place] 2020- [place] [id number] 5mg Q.5D Take 1 [facility] (ELIQUIS) 5 11-01 tablet (5 st mg tablet 00:00: 00:00 mg total) [facility] 00 :00 by mouth 2 l (two) times a day .blood clot in a deep vein of [facility] DULoxetine No [id number] 20mg QD Take 1 [facility] (Cymbalta) 11-[address] 20 MG 00:00: 00:00 (20 mg [facility] capsule 00 :00 total) by l mouth daily. apix[place]- [place] [id number] 5mg Q.5D Take 1 [facility] (ELIQUIS) 5 11-01 tablet (5 st mg tablet 00:00: 00:00 mg total) [facility] 00 :00 by mouth 2 l (two) times a day .blood clot in a deep vein of the extremitie s. methocarbam 2020- No [id number] 500mg Q.25D Take 1 [facility] 11-[address] (Robaxin) 00:00: 00:00 (500 mg [facility] 500 MG 00 :00 total) by l tablet mouth 4 (four) times a day as needed for muscle spasms. methocarbam 2020- No [id number] 500mg Q.25D Take 1 [facility] 11-[address] (Robaxin) 00:00: 00:00 (500 mg [facility] 500 MG 00 :00 total) by l tablet mouth 4 (four) times a day as needed for muscle spasms. methocarbam 2020- No [id number] 500mg Q.25D Take 1 [facility] 11-[address] (Robaxin) 00:00: 00:00 (500 mg [facility] 500 MG 00 :00 total) by l tablet mouth 4 (four) times a day as needed for muscle spasms. methocarbam 2020- No [id number] 500mg Q.25D Take 1 [facility] 11-[address] (Robaxin) 00:00: 00:00 (500 mg [facility] 500 MG 00 :00 total) by l tablet mouth 4 (four) times a day as needed for muscle spasms. methocarbam 2020- No [id number] 500mg Q.25D Take 1 [facility] 11-[address] (Robaxin) 00:00: 00:00 (500 mg [facility] 500 MG 00 :00 total) by l tablet mouth 4 (four) times a day as needed for muscle spasms. methocarbam 2020- No [id number] 500mg Q.25D Take 1 [facility] 11-[address] (Robaxin) 00:00: 00:00 (500 mg [facility] 500 MG 00 :00 total) by l tablet mouth 4 (four) times a day as needed for muscle spasms. methocarbam 2020- No [id number] 500mg Q.25D Take 1 [facility] 11-[address] (Robaxin) 00:00: 00:00 (500 mg [facility] 500 MG 00 :00 total) by l tablet mouth 4 (four) times a day as needed for muscle spasms. pantoprazol 2020- No [id number] 40mg QD Take 1 [facility] 11-0130 tablet (40 st (Protonix) 00:00: 00:00 mg total) [facility] 40 MG EC 00 :00 by mouth l tablet daily. pantoprazol No [id number] 40mg QD Take 1 [facility] 11-01 tablet (40 st (Protonix) 00:00: 00:00 mg total) [facility] 40 MG EC 00 :00 by mouth l tablet daily. pantoprazol 2020- No [id number] 40mg QD Take 1 [facility] 11-01 tablet (40 st (Protonix) 00:00: 00:00 mg total) [facility] 40 MG EC 00 :00 by mouth l tablet daily. pantoprazol No [id number] 40mg QD Take 1 [facility] 11-0130 tablet (40 st (Protonix) 00:00: 00:00 mg total) [facility] 40 MG EC 00 :00 by mouth l tablet daily. pantoprazol 2020- No [id number] 40mg QD Take 1 [facility] 11-01-30 tablet (40 st (Protonix) 00:00: 00:00 mg total) [facility] 40 MG EC 00 :00 by mouth l tablet daily. pantoprazol No [id number] 40mg QD Take 1 [facility] 11-01-30 tablet (40 st (Protonix) 00:00: 00:00 mg total) [facility] 40 MG EC 00 :00 by mouth l tablet daily. pantoprazol 2020- No [id number] 40mg QD Take 1 [facility] 11-01-30 tablet (40 st (Protonix) 00:00: 00:00 mg total) [facility] 40 MG EC 00 :00 by mouth l tablet daily. glimepiride No [id number] 1mg QD Take 1 [facility] (AmaryL) 1 10-30-30 tablet (1 st MG tablet 00:00: 00:00 mg total) [facility] 00 :00 by mouth l daily before breakfast. glimepiride No [id number] 1mg QD Take 1 [facility] (AmaryL) 1 10-3030 tablet (1 st MG tablet 00:00: 00:00 mg total) [facility] 00 :00 by mouth l daily before breakfast. glimepiride No [id number] 1mg QD Take 1 [facility] (AmaryL) 1 10-3030 tablet (1 st MG tablet 00:00: 00:00 mg total) [facility] 00 :00 by mouth l daily before breakfast. glimepiride No [id number] 1mg QD Take 1 [facility] (AmaryL) 1 10-3030 tablet (1 st MG tablet 00:00: 00:00 mg total) [facility] 00 :00 by mouth l daily before breakfast. glimepiride No [id number] 1mg QD Take 1 [facility] (AmaryL) 1 10-3030 tablet (1 st MG tablet 00:00: 00:00 mg total) [facility] 00 :00 by mouth l daily before breakfast. glimepiride No [id number] 1mg QD Take 1 [facility] (AmaryL) 1 10-30-30 tablet (1 st MG tablet 00:00: 00:00 mg total) [facility] 00 :00 by mouth l daily before breakfast. glimepiride No [id number] 1mg QD Take 1 [facility] (AmaryL) 1 10-30-30 tablet (1 st MG tablet 00:00: 00:00 mg total) [facility] 00 :00 by mouth l daily before breakfast. melatonin 3 2021-0 Yes 3mg 3 mg. [...] 00:00: [facility]ospita 00 l diclofenac 2021-0 Yes [id number] YULIA 1 PA [facility] (FLECTOR) 08-[address] 1.3 % patch 00:00: SKIN Q 12 [facility] 12 hour 00 H PRN l diclofenac 2021-0 Yes [id number] YULIA 1 PA [facility] (FLECTOR) 08-[address] 1.3 % patch 00:00: SKIN Q 12 [facility] 12 hour 00 H PRN l diclofenac 2021-0 Yes [id number] YULIA 1 PA [facility] (FLECTOR) 08-[address] 1.3 % patch 00:00: SKIN Q 12 [facility] 12 hour 00 H PRN l diclofenac 2021-0 Yes [id number] YULIA 1 PA [facility] (FLECTOR) 08-[address] 1.3 % patch 00:00: SKIN Q 12 [facility] 12 hour 00 H PRN l diclofenac 2021-0 Yes [id number] YULIA 1 PA [facility] (FLECTOR) 08-[address] 1.3 % patch 00:00: SKIN Q 12 [facility] 12 hour 00 H PRN l diclofenac 2021-0 Yes [id number] YULIA 1 PA [facility] (FLECTOR) 08-[address] 1.3 % patch 00:00: SKIN Q 12 [facility] 12 hour 00 H PRN l diclofenac 2021-0 Yes [id number] YULIA 1 PA [facility] (FLECTOR) 08-[address] 1.3 % patch 00:00: SKIN Q 12 [facility] 12 hour 00 H PRN l diclofenac 2021-0 Yes [id number] YULIA 1 PA [facility] (FLECTOR) 08-[address] 1.3 % patch 00:00: SKIN Q 12 [facility] 12 hour 00 H PRN l diclofenac 2021-0 Yes [id number] YULIA 1 PA [facility] (FLECTOR) 08-[address] 1.3 % patch 00:00: SKIN Q 12 [facility] 12 hour 00 H PRN l diclofenac 2021-0 Yes [id number] YULIA 1 PA [facility] (FLECTOR) 08-[address] 1.3 % patch 00:00: SKIN Q 12 [facility] 12 hour 00 H PRN l diclofenac 2021-0 Yes [id number] YULIA 1 PA [facility] (FLECTOR) 08-[address] 1.3 % patch 00:00: SKIN Q 12 [facility] 12 hour 00 H PRN l diclofenac 2021-0 Yes [id number] YULIA 1 PA [facility] (FLECTOR) 08-[address] 1.3 % patch 00:00: SKIN Q 12 [facility] 12 hour 00 H PRN l diclofenac 2021-0 Yes [id number] YULIA 1 ERIN Anna (FLECTOR) 5-[address] 1.3 % patch [...] 4- Route: IV, l 22:09: Dosing Gabriel Weight 113.773, kg, ONCE, Start date: 06/03/17 17:09:00 CDT, Stop date: 06/03/17 17:09:00 CDT Omnipaque 2017-0 No 100 mL, [facility] 300 4- Route: IV, l 22:09: Dosing Gabriel Weight 113.773, kg, ONCE, Start date: 06/03/17 17:09:00 CDT, Stop date: 06/03/17 17:09:00 CDT Omnipaque 2017-0 No 100 mL, [facility] 300 4- Route: IV, l 22:09: Dosing Gabriel Weight 113.773, kg, ONCE, Start date: 06/03/17 [...] to with patient Codeine #3] 200 ML 2018-0 No Notes: Do Memori a Ciprofloxac -02 [...] days [facility] 05-03 l 21:26: MEDICATION [place] 00 WASTE Product Size: 30 mg Product Wasted: ___ mg acetaminoph No Route: IV, [facility] en (ANES) 05-03 Drug form: l 21:22: INJ, ONCE, [place] 00 Stop date: 05/03/17 15:22:00 PODIATRIC MEDICINE PROFESSOR morphine 2018-0 No Route: IV, [facility] Sulfate 3- Drug form: l (ANES) 21:22: INJ, ONCE, Cailin nn Stop date: 05/03/17 15:22:00 PODIATRIC MEDICINE PROFESSOR acetaminoph 2017-0 No Route: IV, [facility] en (ANES) 3- Drug form: l 21:22: INJ, ONCE, Gabriel 00 Stop date: 05/03/17 15:22:00 PODIATRIC MEDICINE PROFESSOR morphine 2017-0 No Route: IV, [facility] Sulfate 3- Drug form: l (ANES) 21:22: INJ, ONCE, Cailin Stop date: 05/03/17 15:22:00 PODIATRIC MEDICINE PROFESSOR acetaminoph 0 No Route: IV, [facility] en (ANES) 3- Drug form: l 21:22: INJ, ONCE, Gabriel 00 Stop date: 05/03/17 15:22:00 PODIATRIC MEDICINE PROFESSOR morphine 0 No Route: IV, [facility] Sulfate 3- Drug form: l (ANES) 21:22: INJ, ONCE, Cailin Stop date: 05/03/17 15:22:00 PODIATRIC MEDICINE PROFESSOR ceFAZolin 0 No Route: IV, Me moria (ANES) 3- Drug form: l 21:02: INJ, ONCE, Stop date: 05/03/17 15:02:00 PODIATRIC MEDICINE PROFESSOR ondansetron 0 No Route: IV, [facility] (ANES) 3- Drug form: l 21:02: INJ, ONCE, [place] 00 Stop date: 05/03/17 15:02:00 PODIATRIC MEDICINE PROFESSOR propofol 2018-0 No Route: IV, [facility] (ANES) 3- Drug form: l 21:02: INJ, ONCE, [place] 00 Stop date: 05/03/17 15:02:00 PODIATRIC MEDICINE PROFESSOR fentaNYL 2018-0 No Route: IV, [facility] (ANES) 3- Drug form: l 21:02: INJ, ONCE, Gabriel 00 Stop date: 05/03/17 15:02:00 PODIATRIC MEDICINE PROFESSOR ceFAZolin 2018-0 No Route: IV, Me moria (ANES) 3- Drug form: l 21:02: INJ, ONCE, Gabriel 00 Stop date: 05/03/17 15:02:00 PODIATRIC MEDICINE PROFESSOR ondansetron 2018-0 No Route: IV, [facility] (ANES) 3- Drug form: l 21:02: INJ, ONCE, [place] 00 Stop date: 05/03/17 15:02:00 PODIATRIC MEDICINE PROFESSOR propofol 2018-0 No Route: IV, [facility] (ANES) 3 Drug form: l 21:02: INJ, ONCE, Gabriel 00 Stop date: 05/03/17 15:02:00 PODIATRIC MEDICINE PROFESSOR fentaNYL 2018-0 No Route: IV, [facility] (ANES) 3 Drug form: l 21:02: INJ, ONCE, Stop date: 05/03/17 15:02:00 PODIATRIC MEDICINE PROFESSOR ceFAZolin 2017- No Route: IV, Me moria (ANES) 05-03 Drug form: l 21:02: INJ, ONCE, Stop date: 05/03/17 15:02:00 PODIATRIC MEDICINE PROFESSOR ondansetron No Route: IV, [facility] (ANES) 05-03 Drug form: l 21:02: INJ, ONCE, Stop date: 05/03/17 15:02:00 PODIATRIC MEDICINE PROFESSOR propofol 2017-0 No Route: IV, [facility] (ANES) 3 Drug form: l 21:02: INJ, ONCE, Stop date: 05/03/17 15:02:00 PODIATRIC MEDICINE PROFESSOR fentaNYL 2017-0 No Route: IV, [facility] (ANES) 3 Drug form: l 21:02: INJ, ONCE, Stop date: 05/03/17 15:02:00 PODIATRIC MEDICINE PROFESSOR midazolam 2017-0 No Route: IV, Me moria (ANES) 3- Drug form: l 20:57: SOLN, Gabriel 00 ONCE, Stop date: 05/03/17 14:57:00 PODIATRIC MEDICINE PROFESSOR midazolam 2017-0 No Route: IV, Me moria (ANES) 3- Drug form: l 20:57: SOLN, [place] 00 ONCE, Stop date: 05/03/17 14:57:00 PODIATRIC MEDICINE PROFESSOR midazolam 2017-0 No Route: IV, Me moria (ANES) 3- Drug form: l 20:57: SOLN, Gabriel 00 ONCE, Stop date: 05/03/17 14:57:00 PODIATRIC MEDICINE PROFESSOR Lactated 2017-0 No Route: IV, Mem oria Ringers 3-02 Total l Injection 20:15: Volume: Cailin nn IV (ANES) 00 1,000, 1000 mL Start date: 05/03/17 14:15:00 PODIATRIC MEDICINE PROFESSOR, Stop date: 05/03/17 15:15:00 PODIATRIC MEDICINE PROFESSOR Lactated 0 No Route: IV, Mem oria Ringers 3-02 Total l Injection 20:15: Volume: Cailin nn IV (ANES) 00 1,000, 1000 mL Start date: 05/03/17 14:15:00 PODIATRIC MEDICINE PROFESSOR, Stop date: 05/03/17 15:15:00 PODIATRIC MEDICINE PROFESSOR Lactated 2018-0 No Route: IV, Mem oria Ringers 3-02 Total l Injection 20:15: Volume: Cailin nn IV (ANES) 00 1,000, 1000 mL Start date: 05/03/17 14:15:00 PODIATRIC MEDICINE PROFESSOR, Stop date: 05/03/17 15:15:00 PODIATRIC MEDICINE PROFESSOR Calcium 20180 No 1,000 mL, [facility] Chloride 3 Rate: 25 l 0.0014 18:59: ml/hr, [place] MEQ/ML / 00 Infuse Potassium over: 40 Chloride hr, Route: 0.004 IV, Dosing MEQ/ML / Weight Sodium 113.773 Chloride kg, Total 0.103 Volume: MEQ/ML / 1,000, Sodium Start Lactate date: 0.028 05/03/17 MEQ/ML 12:59:00 Injectable PODIATRIC MEDICINE PROFESSOR, Stop Solution date: 05/03/17 20:00:00 PODIATRIC MEDICINE PROFESSOR, 2.41, m2 Calcium 2017-0 No 1,000 mL, [facility] Chloride 3 Rate: 25 l 0.0014 18:59: ml/hr, Gabriel MEQ/ML / 00 Infuse Potassium over: 40 Chloride hr, Route: 0.004 IV, Dosing MEQ/ML / Weight Sodium 113.773 Chloride kg, Total 0.103 Volume: MEQ/ML / 1,000, Sodium Start Lactate date: 0.028 05/03/17 MEQ/ML 12:59:00 Injectable PODIATRIC MEDICINE PROFESSOR, Stop Solution date: 05/03/17 20:00:00 PODIATRIC MEDICINE PROFESSOR, 2.41, m2 Calcium 20180 No 1,000 mL, [facility] Chloride 3 Rate: 25 l 0.0014 18:59: ml/hr, Gabriel MEQ/ML / 00 Infuse Potassium over: 40 Chloride hr, Route: 0.004 IV, Dosing MEQ/ML / Weight Sodium 113.773 Chloride kg, Total 0.103 Volume: MEQ/ML / 1,000, Sodium Start Lactate date: 0.028 05/03/17 MEQ/ML 12:59:00 Injectable PODIATRIC MEDICINE PROFESSOR, Stop Solution date: 05/03/17 20:00:00 PODIATRIC MEDICINE PROFESSOR, 2.41, m2 Acetaminoph 2017-0 Yes 1 tab, PO, Memoria en 325 MG / 3-02 Q6H, PRN l Hydrocodone 17:42: Pain, 0 [place] Bitartrate 00 Refill(s) 10 MG Oral Tablet Acetaminoph 0 Yes 1 tab, PO, Memoria en 325 MG / 3-02 Q6H, PRN l Hydrocodone 17:42: Pain, 0 [place] Bitartrate 00 Refill(s) 10 MG Oral Tablet Acetaminoph 2017-0 Yes 1 tab, PO, Memoria en 325 [...] 0.9% 2-23 (Same as: l 00:02: BD [place] 00 Posiflush) Sodium 2014-03 Yes 1,000 mL, Memori a Chloride 2-23 1000 l 0.154 00:02: ml/hr, [place] MEQ/ML 00 Infuse Injectable Over: 1 Solution hr, Route: IV, 1,000, Drug form: INJ, ONCE, Priority: STAT, Dosing Weight 124.091 kg, Start date: 02/22/15 18:02:00, Duration: 1 doses or times, Stop date: 02/22/15 18:02:00 Saline 2014-03 No Notes: Memoria Flush 0.9% 2-23 (Same as: l 00:02: BD [place] 00 Posiflush) Sodium 2014-03 Yes 1,000 mL, [...] 0.9% 2-23 (Same as: l 00:02: BD [place] 00 Posiflush) vancomycin 2014-03 Yes 1 [...] 2-18 Same as: l 03:00: BD Gabriel Posiflush Sterile Saline 2014-03 No Notes: Memoria Flush 0.9% 2-18 Same as: l 03:00: BD Gabriel 00 Posiflush Sterile Lubricant 2014-03 No 1 drp, Memori a Eye Drops 2-17 Route: l 22:40: Each Gabriel Affected Eye, QID, Drug form: SOLN, PRN Dry Eyes, Start date: 02/17/15 16:40:00, Duration: 30 day, Stop date: 03/19/15 16:39:00 Lubricant 2014-03 No 1 drp, Mem[facility] a Eye Drops 2-17 Route: l 22:40: Each Gabriel Affected Eye, QID, Drug form: SOLN, PRN Dry Eyes, Start date: 02/17/15 16:40:00, Duration: 30 day, Stop date: 03/19/15 16:39:00 Lubricant 2014-03 No 1 drp, [facility] a Eye Drops -17 Route: l 22:40: Each [place] 00 Affected Eye, QID, Drug form: SOLN, [...] 50 Memoria 2-17 microgram, l 20:58: Route: [place] 00 IVP, Q5Min, Dosing Weight 120.483, [...] times Oxycodone 2014-03 No 5 mg, Memoria 217 Route: PO, l 20:58: Drug form: Gabriel 00 TAB, Q4H, Dosing Weight 120.483, kg, PRN Pain Score 4-6, Start date: 02/17/15 14:58:00, Duration: 30 day, Stop date: 03/19/15 14:57:00 Flumazenil 2014-03 No 0.2 mg, Keegan nicholas 04-20 Route: l 20:58: IVP, PRN, [place] 00 Dosing Weight 120.483, kg, PRN Benzodiaze pine Reversal, Initial dose, Start date: 02/17/15 14:58:00, Duration: 30 day, Stop date: 03/19/15 14:57:00 Naloxone 2014-03 No 0.04 mg, Memor ia 04-20 Route: l 20:58: IVP, Gabriel 00 Q2MIN, Dosing Weight 120.483, kg, PRN Narcotic Reversal, Start date: 02/17/15 14:58:00, Duration: 8 doses or times, Stop date: Limited # of times Meperidine 2014-03 No 12.5 mg, Mem oria 217 Route: l 20:58: IVP, Gabriel 00 Q30Min, Dosing Weight 120.483, kg, PRN Other -See Comment, For shivering, Start date: 02/17/15 14:58:00, Duration: 2 doses or times, Stop date: Limited # of times Ondansetron 2014-03 No 4 mg, Memor ia 2-17 Route: l 20:58: IVP, ONCE, [place] 00 Dosing Weight 120.483, kg, PRN Nausea & Vomiting, Start date: 02/17/15 14:58:00 Hydromorpho 2014-03 No 0.5 mg, Mem oria ne 217 Route: l 20:58: IVP, Gabriel 00 Q5Min, [...] en 04-20 Route: l 20:58: IVPB, Drug [place] 00 form: INJ, ONCE, Dosing Weight 120.483, kg, PRN Pain Score 1-3, Start date: 02/17/15 14:58:00, Duration: 1 doses or times, Stop date: Limited # of times Oxycodone 2014-03 No 5 mg, Memoria 04-20 Route: PO, l 20:58: Drug form: [place] 00 TAB, Q4H, Dosing Weight 120.483, kg, PRN Pain Score 4-6, Start date: 02/17/15 14:58:00, Duration: 30 day, Stop date: 03/19/15 14:57:00 Flumazenil 2014-03 No 0.2 mg, Keegan nicholas 04-20 Route: l 20:58: IVP, PRN, [place] 00 Dosing Weight 120.483, kg, PRN Benzodiaze pine Reversal, Initial dose, Start date: 02/17/15 14:58:00, Duration: 30 day, Stop date: 03/19/15 14:57:00 Naloxone 2014-03 No 0.04 mg, Mem[facility] ia 04-20 Route: l 20:58: IVP, Gabriel 00 Q2MIN, Dosing Weight 120.483, kg, PRN Narcotic Reversal, Start date: 02/17/15 14:58:00, Duration: 8 doses or times, Stop date: Limited # of times Meperidine 2014-03 No 12.5 mg, Mem oria 04-20 Route: l 20:58: IVP, Gabriel 00 Q30Min, Dosing Weight 120.483, kg, PRN Other -See Comment, For shivering, Start date: 02/17/15 14:58:00, Duration: 2 doses or times, Stop date: Limited # of times Ondansetron 2014-03 No 4 mg, [facility] ia 17 Route: l 20:58: IVP, ONCE, [place] 00 Dosing Weight 120.483, kg, PRN Nausea & Vomiting, Start date: 02/17/15 14:58:00 Hydromorpho 2014-03 No 0.5 mg, Mem oria ne 04-20 Route: l 20:58: IVP, Gabriel 00 Q5Min, Dosing Weight 120.483, kg, PRN Pain Score 7-10, Start date: 02/17/15 14:58:00, Duration: 4 doses or times, Stop date: Limited # of times Fentanyl 2014-03 No 50 Memoria 2- microgram, l 20:58: Route: Gabriel 00 IVP, [...] nicholas 04-20 Route: l 20:58: IVP, PRN, [place] 00 Dosing Weight 120.483, kg, PRN Benzodiaze pine Reversal, Initial dose, Start date: 02/17/15 14:58:00, Duration: 30 day, Stop date: 03/19/15 14:57:00 Naloxone 2014-03 No 0.04 mg, Memor ia 04-20 Route: l 20:58: IVP, [place] 00 Q2MIN, Dosing Weight 120.483, kg, [...] ia 2-17 Route: l 20:58: IVP, ONCE, Gabriel 00 Dosing Weight 120.483, kg, PRN Nausea & Vomiting, Start date: 02/17/15 14:58:00 Saline 2014-03 No Notes: [facility] Flush 0.9% 2-17 Same as: l 19:33: BD Gabriel 00 Posiflush Sterile Acetaminoph 2014-03 No Notes: Keegan nicholas en 325 MG / 2-17 (Same as: l Hydrocodone 19:33: [place] Cailin nn Bitartrate 00 325/5) Do 5 MG Oral not exceed Tablet 4gm/day of acetaminop hen. Saline 2014-03 No Notes: Memoria Flush 0.9% 2-17 Same as: l 19:33: BD Gabriel 00 Posiflush Sterile Acetaminoph 2014-03 No Notes: Keegan nicholas en 325 MG / 2-17 (Same as: l Hydrocodone 19:33: [place] Cailin nn Bitartrate 00 325/5) Do 5 MG Oral not exceed Tablet 4gm/day of acetaminop hen. Saline 2014-03 No Notes: Memoria Flush 0.9% 2-17 Same as: l 19:33: BD [place] 00 Posiflush Sterile Acetaminoph 2014-03 No Notes: Keegan nicholas en 325 MG / 2-17 (Same as: l Hydrocodone 19:33: [place] Cailin nn Bitartrate 00 325/5) Do 5 MG Oral not exceed Tablet 4gm/day of acetaminop hen. Dilaudid 2014-03 No Notes: Memoria 2-17 (Same as: l 18:54: Dilaudid) Gabriel 00 Ativan 2014-03 No Notes: Memoria 2-17 (Same as: l 18:54: Ativan) Dilaudid 2014-03 No Notes: Memoria 2-17 (Same as: l 18:54: Dilaudid) ivan 2014-03 No Notes: Memoria 2-17 (Same as: l 18:54: Ativan) Dilaudid 2014-03 No Notes: Memoria 2-17 (Same as: l 18:54: Dilaudid) ivan 2014-03 No Notes: [facility]oria 2-17 (Same as: l 18:54: Ativan) Calcium 2014-03 No 1,000 mL, Memor ia Chloride 2-17 Rate: 25 l 0.0014 17:49: ml/hr, [place] MEQ/ML / 00 Infuse Potassium over: 40 Chloride hr, Route: 0.004 IV, Dosing MEQ/ML / Weight Sodium 120.483 Chloride kg, Total 0.103 Volume: MEQ/ML / 1,000, Sodium Start Lactate date: 0.028 17/15 MEQ/ML 11:49:00, Injectable Duration: Solution 30 day, Stop date: 03/19/15 11:48:00 Calcium 2014-03 No 1,000 mL, [facility] Chloride 2-17 Rate: 25 l 0.0014 17:49: ml/hr, [place] MEQ/ML / 00 Infuse Potassium over: 40 Chloride hr, Route: 0.004 IV, Dosing MEQ/ML / Weight Sodium 120.483 Chloride kg, Total 0.103 Volume: MEQ/ML / 1,000, Sodium Start Lactate date: 0.028 02/17/15 MEQ/ML 11:49:00, Injectable Duration: Solution 30 day, Stop date: 03/19/15 11:48:00 Calcium 2014-03 No 1,000 mL, [facility] Chloride 2-17 Rate: 25 l 0.0014 17:49: ml/hr, [place] MEQ/ML / 00 Infuse Potassium over: 40 Chloride hr, Route: 0.004 IV, Dosing MEQ/ML / Weight Sodium 120.483 Chloride kg, Total 0.103 Volume: MEQ/ML / 1,000, Sodium Start Lactate date: 0.028 1217/15 MEQ/ML 11:49:00, Injectable Duration: Solution 30 day, [...] 2-17 (Same as: l propionate 15:00: Flonase) [facility] 0.05 00 MG/ACTUAT Nasal Inhaler Amlodipine 2014-03 [...] 2-16 Same as l Chloride 20:30: Merrem [place] 0.9% IV 100 00 mL MEDICATION WASTE Product Size: 500 mg Product Wasted: [...] Roll in l Human 18:58: palms of [place] 00 hands gently; Do not shake vigorously . (Same as: NovoLOG) "single patient use only" Stable for 28 days at room temperatur e. Expires in days from ____Date Dextrose 2014-03 No 12.5 gm, Mem[facility] ia 50% Syringe 2-16 25 mL, l 18:58: Route: [place] 00 IVP, Drug Form: INJ, Dosing Weight 114.091, kg, PRN, PRN Blood Glucose Results, Start date: 02/16/15 12:58:00, Duration: 30 day, Stop date: 03/18/15 12:57:00 Glucagon 2014-03 No 1 mg, Memoria 2-16 Route: IM, l 18:58: Drug form: [place] 00 PDR/INJ, PRN, Dosing Weight 114.091, kg, [...] Roll in l Human 18:58: palms of [place] 00 hands gently; Do not shake [...] 2-16 mL, Route: l 18:46: IVP, Drug [place] 00 form: INJ, Q6H, Dosing Weight 114.091, kg, PRN Hypertensi on, Start date: 02/16/15 12:46:00, Duration: 30 day, Stop date: 03/18/15 12:45:00 Labetalol 2014-03 No 20 mg, 4 Keegan nicholas 2-16 mL, Route: l 18:46: IVP, Drug [place] 00 form: INJ, Q6H, Dosing Weight 114.091, kg, PRN Hypertensi on, Start date: 02/16/15 12:46:00, Duration: 30 day, Stop date: 03/18/15 12:45:00 Morphine 2014-03 No Notes: [facility]oria 2-16 (Same l 18:45: as:MORPhin [place] 00 e Sulfate) Tylenol 2014-03 No Notes: Do Memor ia 2-16 not exceed l 18:45: 4 gm/day. [place] 00 (Same as: Tylenol) Morphine 2014-03 No Notes: Memoria 2-16 (Same l 18:45: as:MORPhin [place] 00 e Sulfate) Tylenol 2014-03 No Notes: Do Mem[facility] ia 2-16 not exceed l 18:45: 4 gm/day. [place] 00 (Same as: Tylenol) Morphine 2014-03 No Notes: Memoria 2-16 (Same l 18:45: as:MORPhin Gabriel 00 e Sulfate) Tylenol 2014-03 No Notes: Do Memor ia 2-16 not exceed l 18:45: 4 gm/day. [place] 00 (Same as: Tylenol) amLODIPine 2014-03 Yes 10 mg = 1 Me moria 10 mg oral 2-16 tab, PO, l tablet 17:30: Daily, 0 [place] 00 Refill(s) meloxicam 2014-03 Yes 15 mg = 1 Mem oria 15 mg oral 2-16 tab, PO, l tablet 17:30: Daily, 0 [place] 00 Refill(s) Hydrochloro 2014-03 Yes 1 [...] tab, PO, l Tablet 17:30: TID, 0 [place] 00 Refill(s) amLODIPine 2014-03 Yes 10 mg [...] tab, PO, l tablet 17:30: Daily, 0 [place] 00 Refill(s) 120 ACTUAT 2014-03 Yes [...] 2-16 Same as: l Flush 17:19: BD [place] 00 Posiflush Sterile BD Normal 2014-03 [...] Mat Unknown Memoria 7-31 Daniel l 02:07: [place] 12 Lisinopril- Yes Mat Unknown Memoria Hydrochloro 7-31 Daniel l thiazide 02:07: Hydrocodone 2014- Yes Mat Unknown Memoria -Acetaminop 7-31 Daniel [...] Baclofen Yes Mat Unknown Mem oria 7-31 Dainel l 02:07: Amlodipine Yes Mat Unknown M [...] -Acetaminop 7-31 Daniel l hen 02:07: Baclofen 2014-0 Yes Mat Unknown Mem oria 7-31 Daniel l 02:07: Amlodipine 2014-0 Yes Mat Unknown M emoria Besylate 731 Daniel l 02:07: Gabapentin 2014-0 Yes Mat Unknown M emoria 731 Daniel l 02:07: Glimepiride 2014-0 Yes Mat Unknown Memoria 7-31 Daniel l 02:07: Silvadene 2014-0 Yes Mat 1 Memor ia 7-30 Daniel applicatio l 00:00: n to affected area Clindamycin 2015-0 Yes Mat one tab Memoria 300 mg 14 d 7-30 Daniel l 00:00: Cipro 2015-0 Yes Mat 1 tablet Memor ia 7-30 Daniel l 00:00: [place] 00 Silvadene 2015-0 Yes Mat 1 Memor ia 7-30 Daniel applicatio l 00:00: n to affected area Clindamycin 2015-0 Yes Mat one tab Memoria 300 mg 14 d 7-30 Daniel l 00:00: [place] 00 Cipro 2015-0 Yes Mat 1 tablet Memor ia 7-30 Daniel l 00:00: [place] 00 Silvadene 2015-0 Yes Mat 1 Memor ia 7-30 Daniel applicatio l 00:00: n to [place] 00 affected area Clindamycin 2015-0 Yes Mat one tab Memoria 300 mg 14 d 7-30 Daniel l 00:00: [place] 00 Cipro 2015-0 Yes Mat 1 tablet Memor ia 7-30 Daniel l 00:00: [place] 00 Silvadene 2015-0 Yes Mat 1 Memor ia 7-30 Daniel applicatio l 00:00: n to [place] 00 affected area Clindamycin 2015-0 Yes Mat one tab Memoria 300 mg 14 d 7-30 Daniel l 00:00: [place] 00 Cipro 2015-0 Yes Mat 1 tablet Memor ia 7-30 Daniel l 00:00: [place] 00 Silvadene 2015-0 Yes Mat 1 Memor ia 7-30 Daniel applicatio l 00:00: n to affected area Clindamycin 2015-0 Yes Mat one tab Memoria 300 mg 14 d 7-30 Daniel l 00:00: [place] 00 Cipro 2015-0 Yes Mat 1 tablet Memor ia 7-30 Daniel l 00:00: [place] 00 Silvadene 2015-0 Yes Mat 1 Memor [...] tablet Memor ia 7-30 Daniel l 00:00: [place] 00 Silvadene 2015-0 Yes Mat 1 Memor ia 7-30 Daniel applicatio l 00:00: n to affected area Clindamycin 2015-0 Yes Mat one tab Memoria 300 mg 14 d 7-30 Daniel l 00:00: [place] 00 Cipro 2015-0 Yes Mat 1 tablet Memor ia 7-30 Daniel l 00:00: [place] 00 Silvadene 2015-0 Yes Mat 1 Memor ia 7-30 Daniel applicatio l 00:00: n to affected area Clindamycin 2015-0 Yes Mat one tab Memoria 300 mg 14 d 7-30 Daniel l 00:00: Cipro Yes Mat 1 tablet Memor ia 7-30 Daniel l 00:00: Silvadene 2014- Yes Mat 1 Memor ia 7-30 Daniel applicatio l 00:00: n to affected area Clindamycin Yes Mat one tab Memoria 300 mg 14 d 7-30 Daniel l 00:00: Cipro Yes Mat 1 tablet Memor ia 7-30 Daniel l 00:00: Glimepiride Yes Mat Unknown Memoria 3-05 Daniel l 05:10: [place] 03 Gabapentin Yes Mat Unknown M emoria 3-05 Daniel l 05:10: [place] 03 Amlodipine Yes Mat Unknown M emoria Besylate 3-05 Daniel l 05:10: [place] 03 Hydrocodone Yes Mat Unknown Memoria -Acetaminop 3-05 Daniel l hen 05:10: [place] 03 Baclofen Yes Mat Unknown Mem oria 3-05 Daniel l 05:10: [place] 03 Glimepiride Yes Mat Unknown Memoria 3-05 Daniel l 05:10: [place] 03 Gabapentin Yes Mat Unknown M emoria 3-05 Daniel l 05:10: [place] 03 Amlodipine Yes Mat Unknown M emoria Besylate 3-05 Daniel l 05:10: [place] 03 Hydrocodone Yes Mat Unknown Mem[facility] -Acetaminop 3-05 Daniel l hen 05:10: [place] 03 Baclofen Yes Mat Unknown Mem oria 3-05 Daniel l 05:10: [place] 03 Glimepiride Yes Mat Unknown Memoria 3-05 Daniel l 05:10: [place] 03 Gabapentin Yes Mat Unknown M emoria 3-05 Daniel l 05:10: [place] 03 Amlodipine Yes Mat Unknown M emoria Besylate 3-05 Daniel l 05:10: [place] 03 Hydrocodone Yes Mat Unknown Memoria -Acetaminop 3-05 Daniel l hen 05:10: [place] 03 Baclofen Yes Mat Unknown Mem oria 3-05 Daniel l 05:10: [place] 03 Glimepiride Yes Mat Unknown Memoria 3-05 Daniel l 05:10: [place] 03 Gabapentin Yes Mat Unknown M emoria 3-05 Daniel l 05:10: [place] 03 Amlodipine Yes Mat Unknown M emoria Besylate 3-05 Daniel l 05:10: [place] 03 Hydrocodone Yes Mat Unknown Mem[facility] -Acetaminop 3-05 Daniel l hen 05:10: [place] 03 Baclofen Yes Mat Unknown Mem oria 3-05 Daniel l 05:10: [place] 03 Glimepiride Yes Mat Unknown Memoria 3-05 Daniel l 05:10: [place] 03 Gabapentin Yes Mat Unknown M emoria 3-05 Daniel l 05:10: [place] 03 Amlodipine Yes Mat Unknown M emoria Besylate 3-05 Daniel l 05:10: [place] 03 Hydrocodone Yes Mat Unknown Memoria -Acetaminop 3-05 Daniel l hen 05:10: [place] 03 Baclofen Yes Mat Unknown Mem oria 3-05 Daniel l 05:10: [place] 03 Glimepiride Yes Mat Unknown Memoria 3-05 Daniel l 05:10: [place] 03 Gabapentin Yes Mat Unknown M emoria 3-05 Daniel l 05:10: [place] 03 Amlodipine Yes Mat Unknown M emoria Besylate 3-05 Daniel l 05:10: [place] 03 Hydrocodone Yes Mat Unknown Memoria -Acetaminop 3-05 Daniel l hen 05:10: [place] 03 Baclofen Yes Mat Unknown Mem oria 3-05 Daniel l 05:10: [place] 03 Glimepiride Yes Mat Unknown Memoria 3-05 Daniel l 05:10: [place] 03 Gabapentin Yes Mat Unknown M emoria 3-05 Daniel l 05:10: [place] 03 Amlodipine Yes Mat Unknown M emoria Besylate 3-05 Daniel l 05:10: [place] 03 Hydrocodone Yes Mat Unknown Memoria -Acetaminop 3-05 Daniel l hen 05:10: [place] 03 Baclofen Yes Mat Unknown Mem oria 3-05 Daniel l 05:10: [place] 03 Glimepiride Yes Mat Unknown Memoria 3-05 Daniel l 05:10: [place] 03 Gabapentin Yes Mat Unknown M emoria 3-05 Daniel l 05:10: [place] 03 Amlodipine Yes Mat Unknown M emoria Besylate 3-05 Daniel l 05:10: [place] 03 Hydrocodone Yes Mat Unknown Memoria -Acetaminop 3-05 Daniel l hen 05:10: [place] 03 Baclofen Yes Mat Unknown Mem oria 3-05 Daniel l 05:10: [place] 03 Glimepiride Yes Mat Unknown Memoria 3-05 Daniel l 05:10: [place] 03 Gabapentin Yes Mat Unknown M emoria 3-05 Daniel l 05:10: [place] 03 Amlodipine Yes Mat Unknown M emoria Besylate 3-05 Daniel l 05:10: [place] 03 Hydrocodone Yes Mat Unknown Memoria -Acetaminop 3-05 Daniel l hen 05:10: [place] 03 Baclofen Yes Mat Unknown Mem oria 3-05 Daniel l 05:10: [place] 03 Glimepiride Yes Mat Unknown Memoria 3-05 Daniel l 05:10: [place] 03 Gabapentin Yes Mat Unknown M emoria 3-05 Daniel l 05:10: [place] 03 Amlodipine Yes Mat Unknown M emoria Besylate 3-05 Daniel l 05:10: [place] 03 Hydrocodone Yes Mat Unknown Memoria -Acetaminop 3-05 Daniel l hen 05:10: [place] 03 Baclofen Yes Mat Unknown Mem oria 3-05 Daniel l 05:10: [place] 03 Glimepiride Yes Mat Unknown Memoria 3-05 Daniel l 05:10: [place] 03 Gabapentin Yes Mat Unknown M emoria 3-05 Daniel l 05:10: [place] 03 Amlodipine Yes Mat Unknown M emoria Besylate 3-05 Daniel l 05:10: [place] 03 Hydrocodone Yes Mat Unknown Memoria -Acetaminop 3-05 Daniel l hen 05:10: [place] 03 Baclofen Yes Mat Unknown Mem oria 3-05 Daniel l 05:10: [place] 03 Glimepiride Yes Mta Unknown Memoria 3-05 Daniel l 05:10: [place] 03 Gabapentin Yes Mat Unknown M emoria 3-05 Daniel l 05:10: [place] 03 Amlodipine Yes Mat Unknown M emoria Besylate 3-05 Daniel l 05:10: [place] 03 Hydrocodone Yes Mat Unknown Memoria -Acetaminop 3-05 Daniel l hen 05:10: [place] 03 Baclofen Yes Mat Unknown Mem oria 3-05 Daniel l 05:10: [place] 03 Urea Yes Mat 1 Memoria 3-04 Daniel applicatio l 00:00: n to [place] 00 affected area Bactroban Yes Mat 1 Memor ia 3-04 Daniel applicatio l 00:00: n to [place] 00 affected area small amount Urea Yes Mat 1 Memoria 3-04 Daniel applicatio l 00:00: n to [place] affected area Bactroban Yes Mat 1 Memor ia 3-04 Daniel applicatio l 00:00: n to [place] 00 affected area small amount Urea Yes Mat 1 Memoria 3-04 Daniel applicatio l 00:00: n to [place] 00 affected area Bactroban Yes Mat 1 Memor ia 3-04 Daniel applicatio l 00:00: n to [place] 00 affected area small amount Urea Yes Mat 1 Memoria 3-04 Daniel applicatio l 00:00: n to [place] affected area Bactroban Yes Mat 1 Memor [...] 3-04 Daniel applicatio l 00:00: n to [place] affected area Bactroban Yes Mat 1 Memor ia 3-04 Daniel applicatio l 00:00: n to [place] affected area small amount Urea Yes Mat 1 Memoria 3-04 Daniel applicatio l 00:00: n to [place] affected area Bactroban Yes Mat 1 Memor ia 3-04 Daniel applicatio l 00:00: n to [place] affected area small amount Urea Yes Mat 1 Memoria 3-04 Daniel applicatio l 00:00: n to [place] affected area Bactroban Yes Mat 1 Memor ia 3-04 Daniel applicatio l 00:00: n to [place] 00 affected area small amount Urea Yes Mat 1 Memoria 3-04 Daniel applicatio l 00:00: n to [place] affected area Bactroban Yes Mat 1 Memor ia 3-04 Daniel applicatio l 00:00: n to [place] affected area small amount Urea Yes Mat 1 Memoria 3-04 Daniel applicatio l 00:00: n to [place] affected area Bactroban Yes Mat 1 Memor ia 3-04 Daniel applicatio l 00:00: n to [place] affected area small amount Urea Yes Mat 1 Memoria 3-04 Daniel applicatio l 00:00: n to [place] affected area Bactroban Yes Mat 1 Memor ia 3-04 Daniel applicatio l 00:00: n to [place] affected area small amount Urea Yes Mat 1 Memoria 3-04 Daniel applicatio l 00:00: n to [place] affected area Bactroban Yes Mat 1 Memor ia 3-04 Daniel applicatio l 00:00: n to [place] affected area small amount Acetaminoph Yes 1-2 tab, Me moria en 325 MG / 2-21 PO, Q4-6H, l Hydrocodone 08:46: Pain, # 20 [place] Bitartrate 00 tab, 0 5 MG Oral Refill(s) Tablet [[place] 5/325] baclofen Yes 1-2 tabs, M emoria [...] tab, 0 5 MG Oral Refill(s) Tablet [[place] 5/325] baclofen Yes 1-2 tabs, M emoria [...] Q4-6H, l Hydrocodone 08:46: Pain, # 20 [place] Bitartrate 00 tab, 0 5 MG Oral Refill(s) Tablet [[place] 5/325] baclofen Yes 1-2 tabs, M emoria [...] a 2-21 tab, l 06:54: Route: PO, [place] 00 Drug form: TAB, ONCE, Dosing Weight 114.091, kg, Priority: STAT, Start date: 04/24/13 0:54:00, Stop date: 04/24/13 0:54:00(Sa me as: Motrin) "Do Not Crush" Take with food. Motrin 2014-0 No 600 mg, 1 Memori a 2-21 tab, l 06:54: Route: PO, Drug form: TAB, ONCE, Dosing Weight 114.091, kg, Priority: STAT, Start date: 04/24/13 0:54:00, Stop date: 04/24/13 0:54:00(Sa me as: Motrin) "Do Not Crush" Take with food. Motrin 2014-0 No 600 mg, 1 Memori a 2-21 tab, l 06:54: Route: PO, Drug form: TAB, ONCE, Dosing Weight 114.091, kg, Priority: STAT, Start date: 04/24/13 0:54:00, Stop date: 04/24/13 0:54:00(Sa me as: Motrin) "Do Not Crush" Take with food. Valium 2013-0 No 5 mg, 1 Memoria 2-21 tab, l 06:53: Route: PO, Drug form: TAB, ONCE, Dosing Weight 114.091, kg, Start date: 04/24/13 0:53:00, Stop date: 04/24/13 0:53:00(Sa me as: Valium) Acetaminoph 2013-0 No 1 tab, Keegan nicholas en 325 MG / 04-24 Route: PO, l Hydrocodone 06:53: Drug Form: [place] Bitartrate 00 TAB, 5 MG Oral Dosing Tablet Weight [[place] 114.091, 5/325] kg, ONCE, Start date: 04/24/13 0:53:00, Stop date: 04/24/13 0:53:00(Sa me as: [place] 325/5) Do not exceed 4gm/day of acetaminop hen. Valium 2014-0 No 5 mg, 1 Memoria 2-21 tab, l 06:53: Route: PO, Drug form: TAB, ONCE, Dosing Weight 114.091, kg, Start date: 04/24/13 0:53:00, Stop date: 04/24/13 0:53:00(Sa me as: Valium) Acetaminoph 2013- No 1 tab, Keegan nicholas en 325 MG / 04-24 Route: PO, l Hydrocodone 06:53: Drug Form: [place] Bitartrate 00 TAB, 5 MG Oral Dosing Tablet Weight [[place] 114.091, 5/325] kg, ONCE, Start date: 04/24/13 0:53:00, Stop date: 04/24/13 0:53:00(Sa me as: [place] 325/5) Do not exceed 4gm/day of acetaminop hen. Valium No 5 mg, 1 Memoria - tab, l 06:53: Route: PO, [place] 00 Drug form: TAB, ONCE, Dosing Weight 114.091, kg, Start date: 04/24/13 0:53:00, Stop date: 04/24/13 0:53:00( me as: Valium) Acetaminoph No 1 tab, Keegan nicholas en 325 MG / 04-24 Route: PO, l Hydrocodone 06:53: Drug Form: [place] Bitartrate 00 TAB, 5 MG Oral Dosing Tablet Weight [[place] 114.091, 5/325] kg, ONCE, Start date: 04/24/13 0:53:00, Stop date: 04/24/13 0:53:00(Sa me as: [place] 325/5) Do not exceed 4gm/day of acetaminop [...] tablet tablet tablet dic Sports Medicin e Alcohol Alcohol No Alcohol Vill[facility] e Prep Pads Prep Pads Prep Pads Family Practic e [place] 750 [place] 750 No [place] Jennifer mcg buccal mcg buccal 750 mcg [facility] film film buccal dic DISSOLVE 1 DISSOLVE 1 film Spo rts FILM BY FILM BY DISSOLVE 1 Med icin MOUTH EVERY MOUTH EVERY FILM BY e 12 HOURS 12 HOURS MOUTH EVERY 12 HOURS amlodipine amlodipine No amlodipine [place] 10 mg 10 mg 10 mg Family tablet Take tablet Take tablet Practic one(1) one(1) Take e Tablet by Tablet by one(1) mouth EVERY mouth EVERY Tablet by DAY DAY mouth EVERY DAY clindamycin clindamycin No clindamyci Jennifer HCl 300 mg HCl 300 mg n HCl 300 [facility] capsule capsule mg capsule dic TAKE 1 TAKE 1 TAKE 1 Sports CAPSULE BY CAPSULE BY CAPSULE BY Medicin MOUTH EVERY MOUTH EVERY MOUTH e 8 HOURS 8 HOURS EVERY 8 HOURS ciprofloxac ciprofloxac No ciprofloxa [place] in 500 mg in 500 mg beena 500 mg Family tablet tablet tablet Practic e colchicine colchicine No colchicine Jennifer 0.6 mg 0.6 mg 0.6 mg [facility] tablet TAKE tablet TAKE tablet dic 1 TABLET BY 1 TABLET BY TAKE 1 Sports MOUTH TWICE MOUTH TWICE TABLET BY Medicin DAILY DAILY MOUTH e TWICE DAILY FreeStyle FreeStyle No FreeStyle [place] Lite Meter Lite Meter Lite Meter Family kit kit kit Practic e daptomycin daptomycin No daptomycin Jennifer 500 mg 500 mg 500 mg [facility] intravenous intravenous intravenou dic solution solution s solution S ports Medicin e gabapentin gabapentin No gabapentin [facility] 600 mg 600 mg 600 mg Family tablet TAKE tablet TAKE tablet Practic ONE-HALF ONE-HALF TAKE e TABLET TO TABLET TO ONE-HALF ONE TABLET ONE TABLET TABLET TO BY MOUTH BY MOUTH ONE TABLET THREE TIMES THREE TIMES BY MOUTH DAILY DAILY THREE TIMES DAILY diclofenac diclofenac No diclofenac Jennifer 1 % topical 1 % topical 1 % O rthope gel APPLY gel APPLY topical di c TOPICALLY TOPICALLY gel APPLY Sports TO THE TO THE TOPICALLY Medici n AFFECTED AFFECTED TO THE e AREA FOUR AREA FOUR AFFECTED TIMES DAILY TIMES DAILY AREA FOUR TIMES DAILY gentamicin gentamicin No gentamicin [facility] 40 mg/mL 40 mg/mL 40 mg/mL Fam maria esther injection injection injection Practic solution solution solution e diclofenac diclofenac No diclofenac Jennifer epolamine epolamine epolamine [facility] 1.3 % 1.3 % 1.3 % dic transdermal transdermal transderma Sports 12 hour 12 hour l 12 hour Medi beena patch APPLY patch APPLY patch e 1 PATCH 1 PATCH APPLY 1 TOPICALLY TOPICALLY PATCH TO THE SKIN TO THE SKIN TOPICALLY TWICE DAILY TWICE DAILY TO THE SKIN TWICE DAILY glimepiride glimepiride No glimepirid [place] 2 mg tablet 2 mg tablet e 2 mg Family Take one(1) Take one(1) tablet Practic Tablet by Tablet by Take e mouth EVERY mouth EVERY one(1) DAY DAY Tablet by mouth EVERY DAY doxycycline doxycycline No doxycyclin Jennifer hyclate 100 hyclate 100 e hyclate [facility] mg capsule mg capsule 100 mg d ic Take 1 Take 1 capsule Sports capsule capsule Take 1 Medicin twice a day twice a day capsule e by oral by oral twice a route for 7 route for 7 day by days. days. oral route for 7 days. hydrocodone hydrocodone No 1 BID hydrocodon [place] 10 10 e 10 Family mg-acetamin mg-acetamin mg-acetami Practic ophen 325 ophen 325 nophen 325 e mg tablet mg tablet mg tablet Take 1 Take 1 Take 1 tablet tablet tablet twice a day twice a day twice a by oral by oral day by route as route as oral route needed. needed. as needed. duloxetine duloxetine No duloxetine Jennifer 20 mg 20 mg 20 mg [facility] capsule,del capsule,del capsule,de dic ayed ayed layed Sports release release release Medici n TAKE 1 TAKE 1 TAKE 1 e CAPSULE BY CAPSULE BY CAPSULE BY MOUTH DAILY MOUTH DAILY MOUTH DAILY lancing lancing No lancing Villag e device device device Family Practic e Eliquis 5 Eliquis 5 No Eliquis 5 Jennifer mg tablet mg tablet mg tablet [facility] TAKE 1 TAKE 1 TAKE 1 dic TABLET BY TABLET BY TABLET BY Sports MOUTH TWICE MOUTH TWICE MOUTH Medicin DAILY DAILY TWICE e DAILY losartan 50 losartan 50 No losartan [place] mg-hydrochl mg-hydrochl 50 F amily orothiazide orothiazide mg-hydroch Practic 12.5 mg 12.5 mg lorothiazi e tablet Take tablet Take de 12.5 mg one(1) one(1) tablet Tablet by Tablet by Take mouth EVERY mouth EVERY one(1) DAY DAY Tablet by mouth EVERY DAY fluticasone fluticasone No fluticason Jennifer propionate propionate e Ort hope 50 50 propionate dic mcg/actuati mcg/actuati 50 S ports on nasal on nasal mcg/actuat M edicin spray,suspe spray,suspe ion nasal e nsion USE 2 nsion USE 2 spray,susp SPRAYS IN SPRAYS IN ension USE EACH EACH 2 SPRAYS NOSTRIL NOSTRIL IN EACH TWICE DAILY TWICE DAILY NOSTRIL TWICE DAILY meloxicam meloxicam No 1 Q1D meloxicam [facility] 15 mg 15 mg 15 mg Family tablet Take tablet Take tablet Practic 1 tablet 1 tablet Take 1 e every day every day tablet by oral by oral every day route. route. by oral route. glimepiride glimepiride No glimepirid Jennifer 1 mg tablet 1 mg tablet e 1 mg [facility] tablet dic Sports Medicin e sulfamethox sulfamethox No sulfametho [place] azole 800 azole 800 xazole 800 Family mg-trimetho mg-trimetho mg-trimeth Practic prim 160 mg prim 160 mg oprim 160 e tablet tablet mg tablet hydrocodone hydrocodone No hydrocodon Jennifer 10 10 e 10 [facility] mg-acetamin mg-acetamin mg-acetami dic ophen 325 ophen 325 nophen 325 Sports mg tablet mg tablet mg tablet Medicin TAKE 1 TAKE 1 TAKE 1 e TABLET BY TABLET BY TABLET BY MOUTH FOUR MOUTH FOUR MOUTH FOUR TIMES DAILY TIMES DAILY TIMES DAILY TRUEplus TRUEplus No TRUEplus Elli anabela Lancets 30 Lancets 30 Lancets 30 Family gauge gauge gauge Practic e ibuprofen ibuprofen No ibuprofen Jennifer 600 mg 600 mg 600 mg [facility] tablet tablet tablet dic Sports Medicin e Truetest Truetest No Truetest Elli anabela Test Strips Test Strips Test F amily Strips Practic e methocarbam methocarbam No methocarba Jennifer ol [...] THAN 14 Y Y DAYS CONTINUOUS LY FreeStyle FreeStyle FreeStyle [facility] Control Control 11-23 Control Famil y solution solution 00:00 solution Pr actic :00 e Zithromax Zithromax Zithromax [facility] Z-Byron 250 Z-Byron 250 11-23 Z-Byron 250 Family mg tablet mg tablet 00:00 mg tablet Practic as directed as directed :00 as e with food with food directed with food cefuroxime cefuroxime cefuroxime [facility] axetil 250 axetil 250 - axetil 250 Family mg tablet mg tablet 00:00 mg tablet Practic :00 e SSD 1 % SSD 1 % SSD 1 % [place] ge topical topical 25 topical Famil y cream cream 00:00 cream Practic :00 e sucralfate sucralfate sucralfate [facility] 1 gram 1 gram 25 1 gram Family tablet tablet 00:00 tablet Practic :00 e benzonatate benzonatate 1capsul TID benzonatat [facility] 200 mg 200 mg 04-24 e(s) e 200 mg Family capsule capsule 00:00 capsule Pract ic Take 1 Take 1 :00 Take 1 e capsule 3 capsule 3 capsule 3 times a day times a day times a by oral by oral day by route as route as oral route needed. needed. as needed. fluticasone fluticasone fluticason [facility] 50 50 04-24 e 50 Family mcg/actuati mcg/actuati 00:00 mcg/actuat Practic on nasal on nasal :00 ion nasal e spray,suspe spray,suspe spray,susp nsion nsion ension pantoprazol pantoprazol pantoprazo [facility] e 40 mg e 40 mg 04-24 le 40 mg Fami ly tablet,radha tablet,radha 00:00 tablet,del Practic yed release yed release :00 ayed e release vancomycin vancomycin vancomycin [facility] 1,000 mg 1,000 mg 04-24 1,000 mg Fa moraima intravenous intravenous 00:00 intravenou Practic injection injection :00 s e injection amoxicillin amoxicillin 2015- No amoxicilli [facility] [id number] 08-18 n 875 Family mg-potassiu mg-potassiu 00:00 mg-potassi Practic m m :00 um e clavulanate clavulanate clavulanat 125 mg 125 mg e 125 mg tablet tablet tablet cephalexin cephalexin 2015- cephalexin [facility] 500 mg 500 mg 18 500 mg Family capsule capsule 00:00 capsule Pract ic :00 e clindamycin clindamycin 2015- clindamyci [facility] HCl 300 mg HCl 300 mg 0818 n HCl 300 Family capsule capsule 00:00 mg capsule Pr actic :00 e diphenhydra diphenhydra 2015- diphenhydr [facility] mine 50 mine 50 10-19 amine 50 Fami ly mg/mL mg/mL 00:00 mg/mL Practic injection injection :00 injection e solution solution solution Immunizations Ordered Immunization Filled Immunization Date Status Commen ts Source Name Name [place] [id number] 2021-03-29 Completed [facility] 00:[facility]:[place] [id number] 2021-03-29 Completed [facility] VACC[facility] 00:00:[place] [id number] 2021-03-29 Completed [facility] VACCIN[facility] 00:00:[place] [id number] 2021-03-29 Completed [facility] MRNA VACCINATION 00:00:00 [place] [id number] 2021-03-29 Completed [facility] MRNA VACCINATION 00:00:00 [place] [id number] 2021-03-29 Completed [facility] MRNA VACCINATION 00:00:00 [place] [id number] 2021-03-29 Completed [facility] MRNA VACCINATION 00:00:00 [place] [id number] 2021-03-29 Completed [facility] MRNA VACCINATION 00:00:00 [place] [id number] 2021-03-29 Completed [facility] MRNA VACCINATION 00:00:00 [place] [id number] 2021-03-29 Completed [facility] MRNA VACCINATION 00:00:00 [place] [id number] 2021-03-29 Completed [facility] MRNA VACCINATION 00:00:00 [place] [id number] 2021-03-29 Completed [facility] t MRNA VACCINATION 00:00:00 [facility] Influenza Virus 2021-03-29 Completed [facility] Vaccine 00:00:00 [facility] SARS-COV-2 COVID-19 2021-03-29 Completed Unive rsity of MODERNA 12+ YRS 00:00:00 [facility] VACCINE Branch Influenza Virus 2021-03-29 Completed Universit [facility] of Vaccine 00:00:00 [facility] SARS-COV-2 COVID-19 2021-03-29 Completed Unive rsity of MODERNA 12+ YRS 00:00:00 [facility] VACCINE Branch Influenza Virus 2021-03-29 Completed Universit [facility] of Vaccine 00:00:00 [facility] SARS-COV-2 COVID-19 2021-03-29 Completed Unive rsity of [place]ER[place] 12+ YRS 00:00:00 [facility] VACCINE Branch Influenza Virus 2021-03-29 Completed Universit [facility] of Vaccine 00:00:00 [facility] SARS-COV-2 COVID-19 2021-03-29 Completed Unive rsity of MODERNA 12+ YRS 00:00:00 [facility] VACCINE Branch Influenza Virus 2021-03-29 Completed Universit [facility] of Vaccine 00:00:00 [facility] SARS-COV-2 COVID-19 2021-03-29 Completed Unive rsity of MODERNA 12+ YRS 00:00:00 [facility] VACCINE Branch Influenza Virus 2021-03-29 Completed Universit [facility] of Vaccine 00:00:00 [facility] SARS-COV-2 COVID-19 2021-03-29 Completed Unive rsity of MODERNA 12+ YRS 00:00:00 [facility] VACCINE Branch Influenza Virus 2021-03-29 Completed Universit [facility] of Vaccine 00:00:00 [facility] SARS-COV-2 COVID-19 2021-03-29 Completed Unive rsity of MODERNA 12+ YRS 00:00:00 [facility] VACCINE Branch Influenza Virus 2021-03-29 Completed Universit [facility] of Vaccine 00:00:00 [facility] SARS-COV-2 COVID-19 2021-03-29 Completed Unive rsity of MODERNA 12+ YRS 00:00:00 [facility] VACCINE Branch Influenza Virus 2021-03-29 Completed [facility] Vaccine 00:00:00 [facility] SARS-COV-2 COVID-19 2021-03-29 Completed Unive rsity of MODERNA 12+ YRS 00:00:00 [facility] VACCINE [place] Influenza Virus 2021-03-29 Completed [facility] Vaccine 00:00:00 [facility] SARS-COV-2 COVID-19 2021-03-29 Completed Unive rsity of MODERNA 12+ YRS 00:00:00 [facility] Influenza Virus 2021-03-29 Completed [facility] Vaccine 00:00:00 [facility] SARS-COV-2 COVID-19 2021-03-29 Completed Unive rsity of MODERNA 12+ YRS 00:00:00 [facility] Influenza Virus 2021-03-29 Completed [facility] Vaccine 00:00:00 [facility] SARS-COV-2 COVID-19 2021-03-29 Completed Unive rsity of MODERNA 12+ YRS 00:00:00 [facility] Influenza Virus 2021-03-29 Completed [facility] Vaccine 00:00:00 [facility] SARS-COV-2 COVID-19 2021-03-29 Completed Unive rsity of MODERNA 12+ YRS 00:00:00 [facility] VACCINE [place] Influenza Virus 2021-03-29 Completed [facility] Vaccine 00:00:00 [facility] SARS-COV-2 COVID-19 2021-03-29 Completed Unive rsity of MODERNA 12+ YRS 00:00:00 [facility] Influenza Virus 2021-03-29 Completed [facility] Vaccine 00:00:00 [facility] SARS-COV-2 COVID-19 2021-03-29 Completed Unive rsity of MODERNA 12+ YRS 00:00:00 [facility] VACCINE [place] Influenza Virus 2021-03-29 Completed [facility] Vaccine 00:00:00 [facility] SARS-COV-2 COVID-19 2021-03-29 Completed Unive rsity of MODERNA 12+ YRS 00:00:00 [facility] Influenza Virus 2021-03-29 Completed [facility] of Vaccine 00:00:00 [facility] SARS-COV-2 COVID-19 2021-03-29 Completed Unive rsity of MODERNA 12+ YRS 00:00:00 [facility] VACCINE Branch Influenza Virus 2021-03-29 Completed [facility] Vaccine 00:00:00 [facility] SARS-COV-2 COVID-19 2021-03-29 Completed Unive rsity of MODERNA 12+ YRS 00:00:00 [facility] VACCINE Branch Influenza Virus 2021-03-29 Completed [facility] of Vaccine 00:00:00 [facility] SARS-COV-2 COVID-19 2021-03-29 Completed Unive rsity of MODERNA 12+ YRS 00:00:00 [facility] Influenza Virus 2021-03-29 Completed [facility] of Vaccine 00:00:00 [facility] SARS-COV-2 COVID-19 2021-03-29 Completed Unive rsity of MODERNA 12+ YRS 00:00:00 [facility] Influenza Virus 2021-03-29 Completed [facility] Vaccine 00:00:00 [facility] SARS-COV-2 COVID-19 2021-03-29 Completed Unive rsity of MODERNA 12+ YRS 00:00:00 [facility] Influenza Virus 2021-03-29 Completed [facility] of Vaccine 00:00:00 [facility] SARS-COV-2 COVID-19 2021-03-29 Completed [facility]ive rsity of [place] VACCINE 00:00:00 [facility] Influenza Virus 2021-03-29 Completed [facility] of Vaccine 00:00:00 [facility] SARS-COV-2 COVID-19 2021-03-29 Completed [facility]ive rsity of [place] VACCINE 00:00:00 [facility] Influenza Virus 2021-03-29 Completed [facility] of Vaccine 00:00:00 [facility] SARS-COV-2 COVID-19 2021-03-29 Completed [facility]ive [facility] of [place] VACCINE 00:00:00 [facility] Influenza Virus 2021-03-29 Completed [facility] Vaccine 00:00:00 [facility] SARS-COV-2 COVID-19 2021-03-29 Completed [facility]ive [facility] of [place] VACCINE 00:00:00 [facility] Influenza Virus 2021-03-29 Completed [facility] Vaccine 00:00:00 [facility] SARS-COV-2 COVID-19 2021-03-29 Completed [facility]ive [facility] of [place] VACCINE 00:00:00 [facility] Influenza Virus 2021-03-29 Completed [facility] Vaccine 00:00:00 [facility] SARS-COV-2 COVID-19 2021-03-29 Completed Unive rsity of MODERNA 12+ YRS 00:00:00 [facility] Influenza Virus 2021-03-29 Completed [facility] of Vaccine 00:00:00 [facility] SARS-COV-2 COVID-19 2021-03-29 Completed Unive rsity of MODERNA 12+ YRS 00:00:00 [facility] Influenza Virus 2021-03-29 Completed [facility] Vaccine 00:00:00 [facility] Influenza Virus 2021-03-29 Completed [facility] Vaccine 00:00:00 [facility] SARS-COV-2 COVID-19 2021-03-29 Completed Unive rsity of MODERNA 12+ YRS 00:00:00 [facility] SARS-COV-2 COVID-19 2021-03-29 Completed [facility]ive [facility]ity of [place] VACCINE 00:00:00 [facility] Influenza Virus 2021-03-29 Completed [facility] Vaccine 00:00:00 [facility] SARS-COV-2 COVID-19 2021-03-29 Completed Unive rsity of MODERNA 12+ YRS 00:00:00 [facility] Influenza Virus 2021-03-29 Completed [facility] Vaccine 00:00:00 [facility] SARS-COV-2 COVID-19 2021-03-29 Completed Unive rsity of MODERNA 12+ YRS 00:00:00 [facility] [place] COVID-19 2021-03-29 Completed [facility] VACCINATION 00:00:00 Hospital FLUZONE HIGH-DOSE PF 2021-01-31 Completed [facility] 00:[facility]00 [facility] COVID-19 2021-01-31 Completed [facility] VACCINATION 00:00:00 Hospital FLUZONE HIGH-DOSE PF 2021-01-31 Completed [facility] 00:00:00 [facility] COVID-19 2021-01-31 Completed [facility] VACCINATION 00:00:00 [facility] FLUZONE HIGH-DOSE PF 2021-01-31 Completed Meth odist 00:00:00 [facility] COVID-19 2021-01-31 Completed [facility] MRNA VACCINATION 00:00:00 [facility] FLUZONE HIGH-DOSE PF 2021-01-31 Completed Meth odist 00:00:00 [facility] COVID-19 2021-01-31 Completed [facility] MRNA VACCINATION 00:00:00 [facility] FLUZONE HIGH-DOSE PF 2021-01-31 Completed Meth odist 00:00:00 [facility] COVID-19 2021-01-31 Completed [facility] MRNA VACCINATION 00:00:00 [facility] FLUZONE HIGH-DOSE PF 2021-01-31 Completed Meth odist 00:00:00 [facility] COVID-19 2021-01-31 Completed [facility] MRNA VACCINATION 00:00:00 [facility] FLUZONE HIGH-DOSE PF 2021-01-31 Completed Meth odist 00:00:00 [facility] COVID-19 2021-01-31 Completed [facility] MRNA VACCINATION 00:00:00 [facility] FLUZONE HIGH-DOSE PF 2021-01-31 Completed Meth odist 00:00:00 [facility] COVID-19 2021-01-31 Completed [facility] MRNA VACCINATION 00:00:00 [facility] FLUZONE HIGH-DOSE PF 2021-01-31 Completed Meth odist 00:00:00 [facility] COVID-19 2021-01-31 Completed [facility] MRNA VACCINATION 00:00:00 [facility] FLUZONE HIGH-DOSE PF 2021-01-31 Completed Meth odist 00:00:00 [facility] COVID-19 2021-01-31 Completed [facility] MRNA VACCINATION 00:00:00 [facility] FLUZONE HIGH-DOSE PF 2021-01-31 Completed Meth odist 00:00:00 [facility] COVID-19 2021-01-31 Completed [facility] MRNA VACCINATION 00:00:00 [facility] FLUZONE HIGH-DOSE PF 2021-01-31 Completed Meth odist 00:00:00 [facility] COVID-19 2021-01-31 Completed [facility] MRNA VACCINATION 00:00:00 [facility] FLUZONE HIGH-DOSE PF 2021-01-31 Com[facility] VACCINATION 00[facility]00:00 [facility] COVID19 2020-06-26 Completed [facility] M[facility] VACCINATION 00:00:00 [facility] COVID19 2020-06-26 Completed [facility] M[facility] VACCINATION 00:00:00 [facility] COVID19 2020-06-26 Completed [facility] VACCINATION 00:00:00 [facility] COVID19 2020-06-26 Completed [facility] VACCINATION 00:00:00 [facility] COVID19 2020-06-26 Completed [facility] M[facility] VACCINATION 00:00:00 [facility] COVID19 2020-06-26 Completed [facility] M[facility] VACCINATION 00:00:00 [facility] COVID-19 2020-06-26 Completed [facility] M[facility] VACCINATION 00:00:00 [facility] COVID19 2020-06-26 Completed [facility] VACCINATION 00[facility]00:00 [facility] COVID19 2020-06-26 Completed [facility]RNA VACCINATION 00:00:00 [facility] COVID19 2020-06-26 Completed [facility] VACCINATION 00:00:00 [facility] COVID19 2020-06-26 Completed [facility] M[facility] VACCINATION 00:00:00 [facility] COVID19 2020-06-26 Completed [facility] MRNA VACCINATION 00:00:00 [facility] SARS-COV-2 COVID-19 2020-06-26 Completed Unive rsity of [...] YRS 00:00:00 [place] [facility] COVID-19 2020-06-26 Completed [facility] MRNA VACCINATION 00[facility]00:00 [facility] COVID-19 2020-05-24 Completed [facility] MRNA VACCINATION 00:00:00 [facility] COVID19 2020-05-24 Completed [facility] MRNA VACCINATION 00:00:00 [facility] COVID-19 2020-05-24 Completed [facility] MRNA VACCINATION 00:00:00 [facility] COVID-19 2020-05-24 Completed [facility] M[facility] VACCINATION 00:00:00 [facility] COVID-19 2020-05-24 Completed [facility] MRNA VACCINATION 00:00:00 [facility] COVID-19 2020-05-24 Completed [facility] MRNA VACCINATION 00:00:00 [facility] COVID-19 2020-05-24 Completed [facility] MRNA VACCINATION 00:00:00 [facility] COVID-19 2020-05-24 Completed [facility] MRNA VACCINATION 00:00:00 [facility] COVID19 2020-05-24 Completed [facility] MRNA VACCINATION 00:00:00 [facility] COVID19 2020-05-24 Completed [facility] MRNA VACCINATION 00:00:00 [facility] COVID19 2020-05-24 Completed [facility] MRNA VACCINATION 00:00:00 [facility] COVID19 2020-05-24 Completed [facility] MRNA VACCINATION 00:00:00 [facility] SARS-COV-2 COVID-19 2020-05-24 Completed Unive rsity of [...] Unive rsity of MODERNA 12+ YRS 00:00:00 [place] [facility] V[facility] SARS-COV-2 COVID-19 2020-05-24 [...] Unive rsity of [place] VACCINE 00:00:00 [place] [facility] ical Branch SARS-COV-2 COVID-19 2020-05-24 Completed Unive rsity of [place] VACCINE 00:00:00 [place] [facility] SARS-COV-2 COVID-19 2020-05-24 Completed Unive rsity of [place] VACCINE 00:00:00 [place] [facility] ical Branch SARS-COV-2 COVID-19 2020-05-24 Completed Unive rsity of [place] VACCINE 00:00:00 [place] [facility] ical Branch SARS-COV-2 COVID-19 2020-05-24 Completed Unive [...] Unive rsity of [place] VACCINE 00:00:00 [facility] ical Branch SARS-COV-2 COVID-19 2020-05-24 Completed Unive rsity of MODERNA 12+ YRS 00:00:00 [facility] ical VACCINE Branch SARS-COV-2 COVID-19 2020-05-24 Completed Unive rsity of MODERNA 12+ YRS 00:00:00 [place] [facility] VACCINE [facility] COVID-19 2020-05-24 Completed [facility] MRNA VACCINATION 00:00:00 [facility] PFIZER COVID-19 MRNA 2020-05-16 Completed [facility] VACCINATION 00:00:00 [facility] PFIZER COVID-19 MRNA 2020-05-16 Completed [facility] VACCINATION 00:00:00 [facility] PFIZER COVID-19 MRNA 2020-05-16 Completed [facility]ist VACCINATION 00:00:00 [facility] PFIZER COVID-19 MRNA 2020-05-16 Completed Meth [facility]ist VACCINATION 00:00:00 [facility] PFIZER COVID-19 MRNA 2020-05-16 Completed [facility]ist VACCINATION 00:00:00 [facility] PFIZER COVID-19 MRNA 2020-05-16 Completed [facility]ist VACCINATION 00:00:00 [facility] PFIZER COVID-19 MRNA 2020-05-16 Completed [facility]ist VACCINATION 00:00:00 [facility] PFIZER COVID-19 MRNA 2020-05-16 Completed [facility] VACCINATION 00:00:00 [facility] PFIZER COVID-19 MRNA 2020-05-16 Completed [facility] VACCINATION 00:00:00 [facility] PFIZER COVID-19 MRNA 2020-05-16 Completed [facility] VACCINATION 00:00:00 [facility] PFIZER COVID-19 MRNA 2020-05-16 Completed [facility] VACCINATION 00:00:00 [facility] PFIZER COVID-19 MRNA 2020-05-16 Completed [facility] VACCINATION 00:00:00 [facility] PFIZER COVID-19 MRNA 2020-05-16 Completed [facility] VACCINATION 00:00:00 [facility] PFIZER COVID-19 MRNA 2020-04-23 Completed [facility] VACCINATION 00:00:00 [facility] PFIZER COVID-19 MRNA 2020-04-23 Completed [facility] VACCINATION 00:00:00 [facility] PFIZER COVID-19 MRNA 2020-04-23 Completed [facility] VACCINATION 00:00:00 [facility] PFIZER COVID-19 MRNA 2020-04-23 Completed [facility]ist VACCINATION 00:00:00 [facility] PFIZER COVID-19 MRNA 2020-04-23 Completed Meth odist VACCINATION 00:00:00 [facility] PFIZER COVID-19 MRNA 2020-04-23 Completed [facility]ist VACCINATION 00:00:00 [facility] PFIZER COVID-19 MRNA 2020-04-23 Completed [facility]ist VACCINATION 00:00:00 [facility] PFIZER COVID-19 MRNA 2020-04-23 Completed [facility]ist VACCINATION 00:00:00 [facility] PFIZER COVID-19 MRNA 2020-04-23 Completed [facility] VACCINATION 00:00:00 [facility] PFIZER COVID-19 MRNA 2020-04-23 Completed [facility] VACCINATION 00:00:00 Hospital PFIZER COVID-19 MRNA 2020-04-23 Completed [facility] VACCINATION 00:00:00 Hospital PFIZER COVID-19 MRNA 2020-04-23 Completed [facility] VACCINATION 00:00:00 Hospital PFIZER COVID-19 MRNA 2020-04-23 Completed [facility] VACCINATION 00:00:00 Hospital FLUZONE HIGH-DOSE PF 2019-11-18 Completed [...] Meth odist 00:00:00 Hospital Tdap 2016-11-23 Completed [facility] 00:00:00 Hospital FLUZONE HIGH-DOSE PF 2016-11-23 Completed [facility] 00:00:00 Hospital Tdap 2016-11-23 Completed [facility] 00:00:00 Hospital FLUZONE HIGH-DOSE PF 2016-11-23 Completed [facility] 00:00:00 Hospital Tdap 2016-11-23 Completed [facility] 00:00:00 Hospital FLUZONE HIGH-DOSE PF 2016-11-23 Completed [facility] 00:00:00 Hospital Tdap 2016-11-23 Completed [facility] 00:00:00 Hospital FLUZONE HIGH-DOSE PF 2016-11-23 Completed [facility] 00:00:00 Hospital Tdap 2016-11-23 Completed [facility] 00:00:00 Hospital FLUZONE HIGH-DOSE PF 2016-11-23 Completed [facility] 00:00:00 Hospital Tdap 2016-11-23 Completed [facility] 00:00:00 Hospital FLUZONE HIGH-DOSE PF 2016-11-23 Completed [facility] 00:00:00 Hospital Tdap 2016-11-23 Completed [facility] 00:00:00 Hospital FLUZONE HIGH-DOSE PF 2016-11-23 Completed [facility] 00:00:00 Hospital Tdap 2016-11-23 Completed [facility] 00:00:00 Hospital FLUZONE HIGH-DOSE PF 2016-11-23 Completed [facility] 00:00:00 Hospital Tdap 2016-11-23 Completed [facility] 00:00:00 Hospital FLUZONE HIGH-DOSE PF 2016-11-23 Completed [facility] 00:00:00 Hospital Tdap 2016-11-23 Completed [facility] 00:00:00 Hospital FLUZONE HIGH-DOSE PF 2016-11-23 Completed [facility] 00:00:00 Hospital Tdap 2016-11-23 Completed [facility] 00:00:00 Hospital FLUZONE HIGH-DOSE PF 2016-11-23 Completed [facility] 00:00:00 Hospital Tdap 2016-11-23 Completed [facility] 00:00:00 Hospital FLUZONE HIGH-DOSE PF 2016-11-23 Completed [facility] 00:00:00 Hospital Tdap 2016-11-23 Completed [facility] 00:00:00 Hospital FLUZONE HIGH-DOSE PF 2015-02-02 Completed [facility] 00:00:00 Hospital Pneumococcal 2015-02-02 Completed [facility] Conjugate 13-Valent 00:00:00 [facility] FLUZONE HIGH-DOSE PF 2015-02-02 Completed [facility] 00:00:00 Hospital Pneumococcal 2015-02-02 Completed [facility] Conjugate 13-Valent 00:00:00 [facility] FLUZONE HIGH-DOSE PF 2015-02-02 Completed [facility] 00:00:00 Hospital Pneumococcal 2015-02-02 Completed [facility] Conjugate 13-Valent 00:00:00 [facility] FLUZONE HIGH-DOSE PF 2015-02-02 Completed [facility] 00:00:00 Hospital Pneumococcal 2015-02-02 Completed [facility] Conjugate 13-Valent 00:00:00 [facility] FLUZONE HIGH-DOSE PF 2015-02-02 Completed [facility] 00:00:00 Hospital Pneumococcal 2015-02-02 Completed [facility] Conjugate 13-Valent 00:00:00 [facility] FLUZONE HIGH-DOSE PF 2015-02-02 Completed [facility] 00:00:00 Hospital Pneumococcal 2015-02-02 Completed [facility] Conjugate 13-Valent 00:00:00 [facility] FLUZONE HIGH-DOSE PF 2015-02-02 Completed [facility] 00:00:00 Hospital Pneumococcal 2015-02-02 Completed [facility] Conjugate 13-Valent 00:00:00 [facility] FLUZONE HIGH-DOSE PF 2015-02-02 Completed [facility] 00:00:00 Hospital Pneumococcal 2015-02-02 Completed [facility] Conjugate 13-Valent 00:00:00 [facility] FLUZONE HIGH-DOSE PF 2015-02-02 Completed [facility] 00:00:00 Hospital Pneumococcal 2015-02-02 Completed [facility] Conjugate 13-Valent 00:00:00 [facility] FLUZONE HIGH-DOSE PF 2015-02-02 Completed [facility] 00:00:00 Hospital Pneumococcal 2015-02-02 Completed [facility] Conjugate 13-Valent 00:00:00 [facility] FLUZONE HIGH-DOSE PF 2015-02-02 Completed [facility] 00:00:00 Hospital Pneumococcal 2015-02-02 Completed [facility] Conjugate 13-Valent 00:00:00 [facility] FLUZONE HIGH-DOSE PF 2015-02-02 Completed [facility] 00:00:00 Hospital Pneumococcal 2015-02-02 Completed [facility] Conjugate 13-Valent 00:00:00 [facility] FLUZONE HIGH-DOSE PF 2015-02-02 Completed [facility] 00:00:00 Hospital Pneumococcal 2015-02-02 Completed [facility] Conjugate 13-Valent 00:00:00 [facility] influenza, high dose influenza, high dose 2015-02-02 Completed [facility] seasonal seasonal 00:00:00 Practice pneumococcal pneumococcal 2015-02-02 Completed [facility] moraima conjugate PCV 13 conjugate PCV 13 00:00:00 Pr actice influenza virus 2015-01-21 Completed [facility] [place] vaccine, 23:09:00 inactivated<sup>1</s up> influenza virus 2015-01-21 Completed [facility], 23:09:00 inactivated<sup>1</s up> influenza virus 2015-01-21 Completed [facility], 23:09:00 inactivated<sup>1</s up> Influenza, 2015-01-21 Completed [facility] Un[facility] 00:00:00 Hospital Influenza, 2015-01-21 Completed [facility] Unspecified 00:00:00 Hospital Influenza, 2015-01-21 Completed [facility] Unspecified 00:00:00 Hospital Influenza, 2015-01-21 Completed [facility] Unspecified 00:00:00 Hospital Influenza, 2015-01-21 Completed [facility] Unspecified 00:00:00 Hospital Influenza, 2015-01-21 Completed [facility] Unspecified 00:00:00 Hospital Influenza, 2015-01-21 Completed [facility] Unspecified 00:00:00 Hospital Influenza, 2015-01-21 Completed [facility] Unspecified 00:00:00 Hospital Influenza, 2015-01-21 Completed [facility] Unspecified 00:00:00 Hospital Influenza, 2015-01-21 Completed [facility] Unspecified 00:00:00 Hospital Influenza, 2015-01-21 Completed [facility] Unspecified 00:00:00 Hospital Influenza, 2015-01-21 Completed [facility] Unspecified 00:00:00 Hospital Influenza, 2015-01-21 Completed [facility] Unspecified 00:00:00 [facility] Influenza 2014-09-30 [facility] Influenza 2014-09-30 [facility] Influenza 2014-09-30 Completed [facility]00 Influenza 2014-09-30 Completed [facility]:00 Influenza 2014-09-30 Completed [facility] 00:[facility]:00 Influenza 2014-09-30 Completed [facility] 00:[facility]: Influenza 2014-09-30 Completed [facility] 00:[facility]:00 Influenza 2014-09-30 Completed [facility] 00:00:00 Influenza 2014-09-30 Completed [facility] 00:00:00 Influenza 2014-09-30 Completed [facility] 00:[facility]:00 Influenza 2014-09-30 Completed [facility] 00:[facility]:00 Influenza 2014-09-30 [facility]pleted [facility] 00:[facility]:00 Influenza, 2013-11-16 Completed [facility] Unspecified 00:00:00 Hospital FLUCELVAX QUAD PF 2013-11-[address] 00[facility] Influenza, 2013-11-16 Completed [facility] Unspecified 00:00:00 Hospital FLUCELVAX QUAD PF 2013-11-[address] 00:00:00 [facility] Influenza, 2013-11-16 Completed [facility] Unspecified 00:00:00 Hospital FLUCELVAX QUAD PF 2013-11-[address] 00:00:00 [facility] Influenza, 2013-11-16 Completed [facility] Unspecified 00:00:00 Hospital FLUCELVAX QUAD PF 2013-11-[address] 00:00:00 [facility] Influenza, 2013-11-16 Completed [facility] Unspecified 00:00:00 Hospital FLUCELVAX QUAD PF 2013-11-[address] 00:00:00 [facility] Influenza, 2013-11-16 Completed [facility] Unspecified 00:00:00 Hospital FLUCELVAX QUAD PF 2013-11-[address] 00:00:00 [facility] Influenza, 2013-11-16 Completed [facility] Unspecified 00:00:00 Hospital FLUCELVAX QUAD PF 2013-11-[address] 00:00:00 [facility] Influenza, 2013-11-16 Completed [facility] Unspecified 00:00:00 Hospital FLUCELVAX QUAD PF 2013-11-[address] 00:00:00 [facility] Influenza, 2013-11-16 Completed [facility] Unspecified 00:00:00 Hospital FLUCELVAX QUAD PF 2013-11-[address] 00:00:00 [facility] Influenza, 2013-11-16 Completed [facility] Unspecified 00:00:00 Hospital FLUCELVAX QUAD PF 2013-11-[address] 00:00:00 [facility] Influenza, 2013-11-16 Completed [facility] Unspecified 00:00:00 Hospital FLUCELVAX QUAD PF 2013-11-[address] 00:00:00 Hospital Influenza, 2013-11-16 Completed [facility] Unspecified 00:00:00 Hospital FLUCELVAX QUAD PF 2013-11-[address] 00:00:00 [facility] Influenza, 2013-11-16 Completed [facility] Unspecified 00:00:00 Hospital FLUCELVAX QUAD PF 2013-11-[address] 00:00:00 Hospital Influenza, Influenza, 2013-11-16 Completed [facility] injectable, MDCK, injectable, MDCK, 00:00:00 Practice preservative free preservative free Pneumococcal 2013-04-15 Completed [facility] Polysaccharide 00:00:00 Hospital Pneumococcal 2013-04-15 Completed [facility] Polysaccharide 00:00:00 Hospital Pneumococcal 2013-04-15 Completed [facility] Polysaccharide 00:00:00 Hospital Pneumococcal 2013-04-15 Completed [facility] Polysaccharide 00:00:00 Hospital Pneumococcal 2013-04-15 Completed [facility] Polysaccharide 00:00:00 Hospital Pneumococcal 2013-04-15 Completed [facility] Polysaccharide 00:00:00 Hospital Pneumococcal 2013-04-15 Completed [facility] Polysaccharide 00:00:00 Hospital Pneumococcal 2013-04-15 Completed [facility] Polysaccharide 00:00:00 Hospital Pneumococcal 2013-04-15 Completed [facility] Polysaccharide 00:00:00 Hospital Pneumococcal 2013-04-15 Completed [facility] Polysaccharide 00:00:00 Hospital Pneumococcal 2013-04-15 Completed [facility] Polysaccharide 00:00:00 Hospital Pneumococcal 2013-04-15 Completed [facility] Polysaccharide 00:00:00 Hospital Pneumococcal 2013-04-15 Completed [facility] Polysaccharide 00:00:00 Hospital pneumococcal pneumococcal 2013-04-15 Completed [facility] polysaccharide PPV23 polysaccharide PPV23 00:00:00 Practice pneumococcal 2013-02-16 Completed [facility] 23-valent 23:08:00 vaccine<sup>2</sup> pneumococcal 2013-02-16 Completed [facility] 23-valent 23:08:00 vaccine<sup>2</sup> pneumococcal 2013-02-16 Completed [facility] 23-valent 23:08:00 vaccine<sup>2</sup> Pneumococcal 2013-02-16 Completed [facility] Polysaccharide 00:00:00 Hospital Pneumococcal 2013-02-16 Completed [facility] Polysaccharide 00:00:00 Hospital Pneumococcal 2013-02-16 Completed [facility] Polysaccharide 00:00:00 Hospital Pneumococcal 2013-02-16 Completed [facility] Polysaccharide 00:00:00 Hospital Pneumococcal 2013-02-16 Completed [facility] Polysaccharide 00:00:00 Hospital Pneumococcal 2013-02-16 Completed [facility] Polysaccharide 00:00:00 Hospital Pneumococcal 2013-02-16 Completed [facility] Polysaccharide 00:00:00 Hospital Pneumococcal 2013-02-16 Completed [facility] Polysaccharide 00:00:00 Hospital Pneumococcal 2013-02-16 Completed [facility] Polysaccharide 00:00:00 Hospital Pneumococcal 2013-02-16 Completed [facility] Polysaccharide 00:00:00 Hospital Pneumococcal 2013-02-16 Completed [facility] Polysaccharide 00:00:00 [facility] Pneumococcal 2013-02-16 Completed [facility] Polysaccharide 00:00:00 [facility] Pneumococcal 2013-02-16 Completed [facility] Polysaccharide 00:00:00 Hospital Vital Signs Vital Name Observation Time Observation Value Comments Source Systolic blood 2022-03-22 17:45:00 106 mm[Hg] Univer sity of pressure [facility] Diastolic blood 2022-03-22 17:45:00 73 mm[Hg] Unive rsity of pressure [facility] Heart rate 2022-03-22 17:45:00 92 /min [facility]i ty of [facility] Respiratory rate 2022-03-22 17:45:00 21 /min Univ ersity of [facility] Oxygen saturation in 2022-03-22 17:45:00 92 /min University of Arterial blood by [place] [facility] Pulse oximetry Branch Body temperature 2022-03-22 13:53:00 37.06 Michael [facility] ersity of [facility] Systolic blood 2022-03-16 14:28:00 144 mm[Hg] Univer sity of pressure [facility] Diastolic blood 2022-03-16 14:28:00 80 mm[Hg] Unive rsity of pressure [facility] Heart rate 2022-03-16 14:28:00 93 /min Universi ty of [facility] Body temperature 2022-03-16 14:28:00 37.11 Michael Univ [facility] Body height 2022-03-16 14:28:00 180.3 cm [facility] Body weight 2022-03-16 14:28:00 92.987 kg Universi ty of [facility] Branch BMI 2022-03-16 14:28:00 28.59 kg/m2 [facility]i ty of [facility] Oxygen saturation in 2022-03-16 14:28:00 94 /min University of Arterial blood by [place] [facility] Pulse oximetry Branch Systolic blood 2022-03-09 20:19:00 126 mm[Hg] Univer sity of pressure [facility] Branch Diastolic blood 2022-03-09 20:19:00 84 mm[Hg] Unive rsity of [facility] Heart rate 2022-03-09 20:19:00 85 /min [facility] Body height 2022-03-09 20:19:00 180.3 cm [facility] Body weight 2022-03-09 20:19:00 92.987 kg [facility] BMI 2022-03-09 20:19:00 28.59 kg/m2 [facility] Systolic blood 2022-02-15 17:39:00 139 mm[Hg] Univer sity of [facility] Diastolic blood 2022-02-15 17:39:00 79 mm[Hg] Unive rsity of [facility] Heart rate 2022-02-15 17:39:00 66 /min [facility] Body temperature 2022-02-15 17:39:00 36.78 Michael Univ [facility] Respiratory rate 2022-02-15 17:39:00 16 /min Univ [facility] Oxygen saturation in 2022-02-15 17:39:00 96 /min [facility] of Arterial blood by [place] [facility] jessica Pulse oximetry Branch Body height 2022-02-05 17:09:00 180.3 cm [facility] Body weight 2022-02-05 17:09:00 93.895 kg [facility] BMI 2022-02-05 17:09:00 28.87 kg/m2 [facility] Heart rate 2022-02-09 20:45:00 79 /min [facility] Oxygen saturation in 2022-02-09 20:45:00 95 /min [facility] of Arterial blood by [place] [facility] jessica Pulse oximetry Branch Systolic blood 2022-02-09 20:15:00 140 mm[Hg] Univer sity of [facility] Diastolic blood 2022-02-09 20:15:00 90 mm[Hg] Unive rsity of [facility] Body temperature 2022-02-09 17:29:00 36.72 Michael [facility] Respiratory rate 2022-02-09 17:29:00 18 /min Univ [facility] Body height 2022-02-05 17:09:00 180.3 cm Universi ty [facility] Body weight 2022-02-05 17:09:00 93.895 kg Universi ty [facility] BMI 2022-02-05 17:09:00 28.87 kg/m2 Universi ty [facility] respiratory rate 2022-01-17 11:30:00 18 /min [facility] blood pressure 2022-01-17 11:30:00 106 mm[Hg] [facility] blood pressure 2022-01-17 11:30:00 62 mm[Hg] [facility] height 2022-01-17 11:30:00 71 [in_i] [facility] weight 2022-01-17 11:30:00 230 [lb_av] [facility] temperature 2022-01-17 11:30:00 98.6 [degF] [facility] bmi 2022-01-17 11:30:00 32.07 kg/m2 [facility] oximetry 2022-01-17 11:30:00 96 % [facility] Height 2021 00:00:00 71 [in_i] [facility] BMI (Body Mass 2021 00:00:00 33.5 kg/m2 [facility] Body Weight 2021 00:00:00 240 [lb_av] [facility] Systolic blood 2021-10-13 01:01:00 119 mm[Hg] Univer sity of [facility] Diastolic blood 2021-10-13 01:01:00 76 mm[Hg] Unive rsity of [facility] Heart rate 2021-10-13 01:01:00 92 /min Universi ty [facility] Body temperature 2021-10-13 01:01:00 36.83 Michael Univ ersity [facility] Respiratory rate 2021-10-13 01:01:00 18 /min [facility] Body height 2021-10-13 01:01:00 180.3 cm Universi ty of [facility] Body weight 2021-10-13 01:01:00 106.595 kg Universi ty [facility] BMI 2021-10-13 01:01:00 32.78 kg/m2 Universi ty [facility] Oxygen saturation in 2021-10-13 01:01:00 96 /min [facility] blood by [facility] Pulse oximetry Branch Height 2021-09-19 00:00:00 71 [in_i] [facility] BMI (Body Mass 2021-09-19 00:00:00 33.5 kg/m2 [facility] Body Weight 2021-09-19 00:00:00 240 [lb_av] [facility] height 2021-09-13 15:00:00 71 [in_i] [facility] weight 2021-09-13 15:00:00 235 [lb_av] [facility] temperature 2021-09-13 15:00:00 98.2 [degF] [facility] bmi 2021-09-13 15:00:00 32.77 kg/m2 [facility] blood pressure 2021-09-13 15:00:00 114 mm[Hg] [facility] blood pressure 2021-09-13 15:00:00 72 mm[Hg] [facility] Systolic blood 2021-06-21 21:06:00 128 mm[Hg] Univer sity of [facility] Diastolic blood 2021-06-21 21:06:00 76 mm[Hg] Unive rsity of pressure [facility] Heart rate 2021-06-21 21:06:00 104 /min Universi ty [facility] Body temperature 2021-06-21 21:06:00 36.83 [facility] rate 2021-06-21 21:06:00 16 /min [facility] Oxygen saturation in 2021-06-21 21:06:00 96 /min [facility] Arterial blood by [place] [facility] Pulse oximetry Branch Body height 2021-06-18 07:08:00 180.3 cm [facility] Body weight 2021-06-18 07:08:00 106.9 kg [facility] BMI 2021-06-18 07:08:00 32.87 kg/m2 [facility] Systolic blood 2021-06-18 23:12:00 142 mm[Hg] Univer sity of [facility] Diastolic blood 2021-06-18 23:12:00 78 mm[Hg] Unive rsity of [facility] Heart rate 2021-06-18 23:12:00 79 /min [facility] Body temperature 2021-06-18 23:12:00 36.72 Michael [facility] Respiratory rate 2021-06-18 23:12:00 16 /min Univ [facility] Oxygen saturation in 2021-06-18 23:12:00 96 /min [facility] of Arterial blood by [facility] jessica Pulse oximetry Branch Body height 2021-06-18 07:08:00 180.3 cm [facility] Body weight 2021-06-18 07:08:00 106.9 kg [facility] BMI 2021-06-18 07:08:00 32.87 kg/m2 [facility] Systolic blood 2022-02-15 17:39:00 139 mm[Hg] Univer sity of [facility] Diastolic blood 2022-02-15 17:39:00 79 mm[Hg] Unive rsity of [facility] Heart rate 2022-02-15 17:39:00 66 /min [facility] Body temperature 2022-02-15 17:39:00 36.78 Michael Univ [facility] Respiratory rate 2022-02-15 17:39:00 16 /min Univ [facility] Oxygen saturation in 2022-02-15 17:39:00 96 /min [facility]ial blood by [place] [facility] Pulse oximetry Branch Systolic blood 2022-02-07 14:14:00 131 mm[Hg] Univer sity of [facility] Diastolic blood 2022-02-07 14:14:00 93 mm[Hg] Unive rsity of pressure [facility] Heart rate 2022-02-07 14:14:00 86 /min Universi [facility] Body temperature 2022-02-07 14:14:00 36.89 Michael Univ ersity of [facility] Respiratory rate 2022-02-07 14:14:00 18 /min [facility] Oxygen saturation in 2022-02-07 14:14:00 95 /min [facility] Arterial blood by [facility] Pulse oximetry [place] Body height 2022-02-05 17:09:00 180.3 cm [facility] Body weight 2022-02-05 17:09:00 93.895 kg [facility] BMI 2022-02-05 17:09:00 28.87 kg/m2 [facility] Systolic blood 2021-07-10 20:12:00 131 mm[Hg] [facility] pressure Diastolic blood 2021-07-10 20:12:00 71 mm[Hg] [facility] pressure Heart rate 2021-07-10 20:12:00 82 /min [facility] Body temperature 2021-07-10 20:12:00 36.83 Michael [facility] Body height 2021-07-10 20:12:00 180.3 cm [facility] Oxygen saturation in 2021-07-10 20:12:00 98 /min [facility] Arterial blood by Pulse oximetry Respiratory rate 2021-06-17 05:15:00 16 /min [facility] Body weight 2021-06-17 00:40:00 102.059 kg [facility] BMI 2021-06-17 00:40:00 31.38 kg/m2 [facility] BP Diastolic 2017-05-22 00:00:00 76 mm[Hg] [facility] Height 2017-05-22 00:00:00 70 [in_i] [facility] BMI (Body Mass 2017-05-22 00:00:00 37.3 kg/m2 [facility] BP Systolic 2017-05-22 00:00:00 130 mm[Hg] [facility] Body Weight 2017-05-22 00:00:00 259.8 [lb_av] [facility] Systolic (mm Hg) 2017-05-04 00:30:00 Keegan rial [facility] Diastolic (mm Hg) 2017-05-04 00:30:00 Mem orial [facility] Respitory Rate 2017-05-04 00:30:00 Memori al [facility] Systolic (mm Hg) 2017-05-04 00:15:00 Keegan rial [place] Diastolic (mm Hg) 2017-05-04 00:15:00 Mem orial [place] Respitory Rate 2017-05-04 00:15:00 Memori al [place] Respitory Rate 2017-05-04 00:00:00 Memori al [place] Systolic (mm Hg) 2017-05-04 00:00:00 Keegan rial [place] Diastolic (mm Hg) 2017-05-04 00:00:00 Mem orial [place] Heart Rate 2017-05-03 18:35:00 [facility] [place] Heart Rate 2017-05-03 17:50:00 [facility] [place] BMI Calculated 2017-05-03 17:23:00 Memori al [place] Weight 2017-05-03 17:23:00 [facility] [place] Height 2017-05-03 17:23:00 180.34 cm [facility] Weight 2017-04-25 15:05:00 [facility] [place] BMI Calculated 2017-04-25 15:05:00 Memori al [facility] Height 2017-04-25 15:05:00 187.96 cm [facility] BP Diastolic 2017-02-26 00:00:00 74 mm[Hg] [facility] Height 2017-02-26 00:00:00 70 [in_i] [facility] BP Systolic 2017-02-26 00:00:00 122 mm[Hg] [facility] BP Diastolic 2016-11-23 00:00:00 74 mm[Hg] [facility] Height 2016-11-23 00:00:00 70 [in_i] [facility] BMI (Body Mass 2016-11-23 00:00:00 36.6 kg/m2 [facility] e Family Index) Practice BP Systolic 2016-11-23 00:00:00 118 mm[Hg] [facility] Body Weight 2016-11-23 00:00:00 255 [lb_av] [facility] BP Diastolic 2016-08-23 00:00:00 76 mm[Hg] [facility] Height 2016-08-23 00:00:00 70 [in_i] [...] Practice Body Weight 2015-04-26 00:00:00 262 [lb_av] [facility] Height 2015-02-24 00:00:00 70 [in_i] [facility] BMI (Body Mass 2015-02-24 00:00:00 39.17 kg/m2 [facility] [place] Practice BP Diastolic 2015-02-24 00:00:00 80 mm[Hg] [facility] BP Systolic 2015-02-24 00:00:00 122 mm[Hg] [facility] Body Weight 2015-02-24 00:00:00 273 [lb_av] [facility] Respitory Rate 2015-02-22 23:19:00 Memori al [place] Weight 2015-02-22 23:19:00 [facility] [place] Height 2015-02-22 23:19:00 182.88 cm [facility] [place] Temperature Oral (F) 2015-02-22 23:19:00 98.7 F [facility] [place] BMI Calculated 2015-02-22 23:19:00 Memori al [place] Systolic (mm Hg) 2015-02-22 23:19:00 Keegan rial [place] Diastolic (mm Hg) 2015-02-22 23:19:00 Mem orial [place] Heart Rate 2015-02-22 23:19:00 [facility] Respitory Rate 2015-02-19 17:24:00 Memori al [place] Systolic (mm Hg) 2015-02-19 13:40:00 Keegan rial [place] Diastolic (mm Hg) 2015-02-19 13:40:00 Mem orial [place] Respitory Rate 2015-02-19 13:40:00 Memori al [facility] Heart Rate 2015-02-19 13:40:00 [facility] Temperature Oral (F) 2015-02-19 13:40:00 99.1 F [facility] Temperature Oral (F) 2015-02-19 11:22:00 98.3 F [facility] [place] Systolic (mm Hg) 2015-02-19 11:22:00 Keegan rial [place] Diastolic (mm Hg) 2015-02-19 11:22:00 Mem orial [place] Heart Rate 2015-02-19 11:22:00 [facility] Respitory Rate 2015-02-19 11:22:00 Memori al [facility] Temperature Oral (F) 2015-02-19 06:36:00 98.3 F [facility] Heart Rate 2015-02-19 06:36:00 [facility] Systolic (mm Hg) 2015-02-19 06:36:00 Keegan rial [place] Diastolic (mm Hg) 2015-02-19 06:36:00 Mem orial [place] Height 2015-02-16 19:24:00 182.88 cm [facility] [place] BMI Calculated 2015-02-16 19:24:00 Memori al [place] Weight 2015-02-16 19:24:00 [facility] [place] BP Diastolic 2015-02-02 00:00:00 80 mm[Hg] [...] 2014-09-30 14:45:00 [facility] Height 2014-09-30 14:45:00 [facility] [place] Heart Rate 2014-09-30 14:45:00 [facility] [place] Diastolic (mm Hg) 2014-09-30 14:45:00 Mem orial [place] Systolic (mm Hg) 2014-09-30 14:45:00 Keegan Rios [...] [facility] Heart Rate 2013-06-08 14:45:00 [facility] [place] Diastolic (mm Hg) 2013-06-08 14:45:00 Mem orial [...] [facility] Weight 2013-05-05 15:45:00 [facility] [place] Heart Rate 2013-05-05 15:45:00 [facility] [place] Diastolic (mm Hg) 2013-05-05 15:45:00 Mem orial [place] Systolic (mm Hg) 2013-05-05 15:45:00 Keegan rial [...] Systolic (mm Hg) 2013-04-24 09:10:00 Keegan rial Gabre[place] Temperature Oral (F) 2013-04-24 09:10:00 97.1 F [facility] Heart Rate 2013-04-24 09:10:00 [facility] [place] Respitory Rate 2013-04-24 09:10:00 Bulmaro Barroso BMI Calculated 2013-04-24 04:40:00 Bulmaro Barroso Weight 2013-04-24 04:40:00 Shawn Rios Height 2013-04-24 04:40:00 182.88 cm Shawn Rios Respitory Rate 2013-04-24 04:40:00 Bulmaro Barroso Temperature Oral (F) 2013-04-24 04:40:00 97.7 F Shawn Rois Heart Rate 2013-04-24 04:40:00 Shawn Rios Diastolic (mm Hg) 2013-04-24 04:40:00 Saman Rios Systolic (mm Hg) 2013-04-24 04:40:00 Keegan khan [place] BP Diastolic 2013-04-15 00:00:00 80 mm[Hg] [facility] Height 2013-04-15 00:00:00 70 [in_i] [facility] BMI (Body Mass 2013-04-15 00:00:00 36.58 kg/m2 [facility] BP Systolic 2013-04-15 00:00:00 128 mm[Hg] [facility] Body Weight 2013-04-15 00:00:00 255 [lb_av] [facility] Procedures Procedure Date / Time Performing Clinician Source Performed CT THORACIC MYELOGRAM 2022-03-22 16:52:00 Chinyere Lozano [facility] IR SPINAL INJECTION 2022-03-22 16:29:17 Chinyere Lozano [facility] INDWELLING CATHETER Medical Bran ch LUMBAR/SACRUM WITH IMAGE BASIC METABOLIC PANEL 2022-03-22 13:45:00 Deuce Dinh [facility] (NA, K, CL, CO2, Medical Branch GLUCOSE, BUN, CREATININE, CA) CBC WITHOUT DIFF 2022-03-22 13:45:00 Deuce Dinh [facility] PROTHROMBIN TIME / INR 2022-03-22 13:45:00 Deuce Dinh [facility] ASSIGNMENT OF BENEFITS 2022-03-09 20:06:11 Doctor Unassigned, No [facility] AUTHORIZATION FOR 2022-03-02 06:01:00 Doctor Unassigned, No [facility] RELEASE OF [facility] POCT GLUCOSE (AUTOMATED) 2022-02-15 23:04:00 Ezra Serra versity of [facility] POCT GLUCOSE (AUTOMATED) 2022-02-15 17:37:00 Ezra Serra Uni versity of [facility] POCT GLUCOSE (AUTOMATED) 2022-02-15 17:37:00 Ezra Serra Uni versity of [facility] POCT GLUCOSE (AUTOMATED) 2022-02-15 13:47:00 Ezra Serra Uni versity of [facility] Branch POCT GLUCOSE (AUTOMATED) 2022-02-15 13:47:00 Ezra Serra Kortney versity of [facility] ABORH CONFIRMATION (LAB 2022-02-15 10:32:00 Sydnee [facility] ONLY) Medical Branch ABORH CONFIRMATION (LAB 2022-02-15 10:32:00 Sydnee [facility] ONLY) Medical Branch CBC WITH DIFF 2022-02-15 10:31:00 Toby Simran [facility] PROTHROMBIN TIME / INR 2022-02-15 10:31:00 [facility] 2022-02-15 10:31:00 Rian Dowell [facility] BASIC METABOLIC PANEL 2022-02-15 10:31:00 Simran Luis [facility] (NA, K, CL, CO2, Medical Branch GLUCOSE, BUN, CREATININE, CA) CBC WITH DIFF 2022-02-15 10:31:00 Toby Simran [facility] PROTHROMBIN TIME / INR 2022-02-15 10:31:00 Rian Dowell [facility] ACTIVATED PARTIAL 2022-02-15 10:31:00 Rian Dowell [facility] BASIC METABOLIC PANEL 2022-02-15 10:31:00 Simran Luis [facility] (NA, K, CL, CO2, Medical Branch GLUCOSE, BUN, CREATININE, CA) POCT GLUCOSE (AUTOMATED) 2022-02-15 10:22:00 Ezra Serra Uni versity of [facility] POCT GLUCOSE (AUTOMATED) 2022-02-15 10:22:00 Sweet, Ezra [facility] [place] [facility] POCT GLUCOSE (AUTOMATED) 2022-02-15 05:31:00 Sweet, Ezra Uni [facility] [place] [facility] POCT GLUCOSE (AUTOMATED) 2022-02-15 05:31:00 Sweet, Ezra Uni [facility] [place] [facility] POCT GLUCOSE (AUTOMATED) 2022-02-15 03:30:00 Sweet, Ezra Uni [facility] [place] [facility] POCT GLUCOSE (AUTOMATED) 2022-02-15 03:30:00 Sweet, Ezra Uni vers[facility] [place] [facility] POCT GLUCOSE (AUTOMATED) 2022-02-15 02:26:00 Sweet, Ezra Uni [facility] [place] [facility] POCT GLUCOSE (AUTOMATED) 2022-02-15 02:26:00 Sweet, Ezra Uni [facility] [place] [facility] POCT GLUCOSE (AUTOMATED) 2022-02-14 21:59:00 Sweet, Ezra Uni [facility] [place] [facility] POCT GLUCOSE (AUTOMATED) 2022-02-14 21:59:00 Maryse, Ezra Uni [facility] [place] [facility] POCT GLUCOSE (AUTOMATED) 2022-02-14 17:33:00 Sweet, Ezra Uni [facility] [place] [facility] POCT GLUCOSE (AUTOMATED) 2022-02-14 17:33:00 Sweet, Ezra Uni [facility] [place] [facility] POCT GLUCOSE (AUTOMATED) 2022-02-14 14:09:00 Sweet, Ezra Uni [facility] [place] [facility] POCT GLUCOSE (AUTOMATED) 2022-02-14 14:09:00 Maryse, Ezra Uni [facility] [place] [facility] CBC WITH DIFF 2022-02-14 10:50:00 [facility] Branch BASIC METABOLIC PANEL 2022-02-14 10:50:[facility], CL, CO2, Medical Branch GLUCOSE, BUN, CREATININE, CA) CBC WITH DIFF 2022-02-14 10:50[facility] PANEL 2022-02-14 10:50:00 [facility] (NA, K, CL, CO2, Medical Branch GLUCOSE, BUN, CREATININE, CA) POCT GLUCOSE (AUTOMATED) 2022-02-14 10:37:00 Ezra Serra Uni versity of [facility] POCT GLUCOSE (AUTOMATED) 2022-02-14 10:37:00 Ezra Serra Uni vers[facility] [place] [facility] POCT GLUCOSE (AUTOMATED) 2022-02-14 07:20:00 Ezra Serra Uni [facility] [place] [facility] POCT GLUCOSE (AUTOMATED) 2022-02-14 07:20:00 MaryseEzra Uni versity of [facility] POCT GLUCOSE (AUTOMATED) 2022-02-14 06:00:00 Ezra Serra Uni vers[facility] [place] [facility] POCT GLUCOSE (AUTOMATED) 2022-02-14 06:00:00 Ezra Serra Uni versity of [facility] POCT GLUCOSE (AUTOMATED) 2022-02-14 02:43:00 MaryseEzra Uni versity of [facility] POCT GLUCOSE (AUTOMATED) 2022-02-14 02:43:00 MaryseEzra Uni versity of [facility] Branch CT CERVICAL MYELOGRAM 2022-02-13 23:39:54 [place], Lynne Paola Un iversity of [facility] CT LUMBAR MYELOGRAM 2022-02-13 23:39:54 [place], Lynne Paola Univ ersity [facility] CT THORACIC MYELOGRAM 2022-02-13 23:39:54 [place], Lynne Paola Un [facility] [place] [facility] CT CERVICAL MYELOGRAM 2022-02-13 23:39:54 [place], Lynne Paola Un [facility] [place] [facility] CT THORACIC MYELOGRAM 2022-02-13 23:39:54 [place], Lynne Paola Un i[facility] [place] [facility] CT LUMBAR MYELOGRAM 2022-02-13 23:39:54 [place], Lynne Paola Univ [facility] [place] [facility] IR SPINAL INJECTION 2022-02-13 23:00:10 [place], Lynne Paola Univ ersity of [place] [facility]HE[facility] Medical Bran ch LUMBAR/SACRUM WITH IMAGE IR SPINAL INJECTION 2022-02-13 23:00:10 [place], Lynne Paola Univ [facility] [place] INDWELLING CATHETER Medical Bran ch LUMBAR/SACRUM WITH IMAGE INTUBATION 2022-02-13 20:53:00 Cortney Leos [facility] POCT GLUCOSE (AUTOMATED) 2022-02-13 17:44:00 SweetEzra Uni vers[facility] [place] [facility] POCT GLUCOSE (AUTOMATED) 2022-02-13 17:44:00 MaryseEzra Uni versity [facility] [place] [facility] POCT GLUCOSE (AUTOMATED) 2022-02-13 16:06:00 MaryseShaunaEzra Uni versity [facility] [place] [facility] POCT GLUCOSE (AUTOMATED) 2022-02-13 16:06:00 MaryseEzra Uni vers[facility] [place] [facility] POCT GLUCOSE (AUTOMATED) 2022-02-13 13:51:00 Maryse Ezra Uni [facility] [place] [facility] POCT GLUCOSE (AUTOMATED) 2022-02-13 13:51:00 MaryseEzra Uni vers[facility] [place] [facility] POCT GLUCOSE (AUTOMATED) 2022-02-13 10:56:00 Maryse Ezra Uni [facility] [place] [facility] POCT GLUCOSE (AUTOMATED) 2022-02-13 10:56:00 Ezra Serra Uni versity of [facility] CBC WITH DIFF 2022-02-13 08:47:00 [facility] CBC WITH DIFF 2022-02-13 08:47:00 [facility] BASIC METABOLIC PANEL 2022-02-13 08:47:00 [facility] (NA, K, CL, CO2, Medical Branch GLUCOSE, BUN, CREATININE, CA) BASIC METABOLIC PANEL 2022-02-13 08:47:00 [facility] (NA, K, CL, CO2, Medical Branch GLUCOSE, BUN, CREATININE, CA) POCT GLUCOSE (AUTOMATED) 2022-02-13 05:37:00 Maryse Ezra Uni [facility] [place] [facility] POCT GLUCOSE (AUTOMATED) 2022-02-13 05:37:00 Ezra Serra Uni [facility] [place] [facility] POCT GLUCOSE (AUTOMATED) 2022-02-13 01:58:00 Maryse Ezra Uni [facility] [place] [facility] POCT GLUCOSE (AUTOMATED) 2022-02-13 01:58:00 Ezra Serra Uni [facility] [place] [facility] POCT GLUCOSE (AUTOMATED) 2022-02-12 23:08:00 Maryse Ezra Uni [facility] [place] [facility] POCT GLUCOSE (AUTOMATED) 2022-02-12 23:08:00 Maryse Ezra Uni versity of [facility] POCT GLUCOSE (AUTOMATED) 2022-02-12 17:33:00 MaryseEzra Uni versity of [facility] POCT GLUCOSE (AUTOMATED) 2022-02-12 17:33:00 MaryseEzra Uni versity of [facility] POCT GLUCOSE (AUTOMATED) 2022-02-12 17:33:00 Maryse Ezra Uni versity of [facility] POCT GLUCOSE (AUTOMATED) 2022-02-12 14:14:00 Maryse Ezra Uni versity of [facility] POCT GLUCOSE (AUTOMATED) 2022-02-12 14:14:00 Ezra Serra Uni versity of [facility] POCT GLUCOSE (AUTOMATED) 2022-02-12 14:14:00 Ezra Serra Uni versity of [facility] CBC WITH DIFF 2022-02-12 11:28:00 [place] 2022-02-12 11:28:00 [place], [facility] BASIC METABOLIC PANEL 2022-02-12 11:28:00 [place] Lynne Guevara [facility] [place] (NA, K, CL, CO2, Medical Branch GLUCOSE, BUN, CREATININE, CA) CBC WITH DIFF 2022-02-12 11:28:00 [place], [facility] BASIC METABOLIC PANEL 2022-02-12 11:28:00 [place] Lynne Caballerose [facility] [place] (NA, K, CL, CO2, Medical Branch GLUCOSE, BUN, CREATININE, CA) MAGNESIUM 2022-02-12 11:28:00 [place], Lynne [facility] CBC WITH DIFF 2022-02-12 11:28:00 [place], [facility] MAGNESIUM 2022-02-12 11:28:00 [place], [facility] BASIC METABOLIC PANEL 2022-02-12 11:28:00 [place] Lynne Guevara [facility] [place] (NA, K, CL, CO2, Medical Branch GLUCOSE, BUN, CREATININE, CA) POCT GLUCOSE (AUTOMATED) 2022-02-12 08:54:00 Sweet, Ezra [facility] [place] [facility] POCT GLUCOSE (AUTOMATED) 2022-02-12 08:54:00 Sweet, Ezra [facility] [place] [facility] POCT GLUCOSE (AUTOMATED) 2022-02-12 08:54:00 Sweet, Ezra [facility] [place] [facility] [...] Medical Branch POCT GLUCOSE (AUTOMATED) 2022-02-11 14:10:00 Sweet, Ezra [facility] [place] [facility] POCT GLUCOSE (AUTOMATED) 2022-02-11 14:10:00 Sweet, Ezra [facility] [place] [facility] POCT GLUCOSE (AUTOMATED) 2022-02-11 14:10:00 Maryse, Ezra [facility] [place] [facility] CBC WITH DIFF 2022-02-11 12:12:00 [place] Lynne Paola [facility] CBC WITH DIFF 2022-02-11 12:12:00 [place] 2022-02-11 12:12:00 [place], Lynne Guevara [facility] MAGNESIUM 2022-02-11 12:11:00 [place], [facility] BASIC METABOLIC PANEL 2022-02-11 12:11:00 [place] Lynne Guevara [facility] [place] (NA, K, CL, CO2, Medical Branch GLUCOSE, BUN, CREATININE, CA) BASIC METABOLIC PANEL 2022-02-11 12:11:00 [place] Lynne Guevara [facility] [place] (NA, K, CL, CO2, Medical Branch GLUCOSE, BUN, CREATININE, CA) MAGNESIUM 2022-02-11 12:11:00 [place] Lynne Guevara [facility] MAGNESIUM 2022-02-11 12:11:00 [place], [facility] MET[facility]OLIC PANEL 2022-02-11 12:11:00 [place] Lynne Guevara [facility] [place] (NA, K, CL, CO2, Medical Branch GLUCOSE, BUN, CREATININE, CA) POCT GLUCOSE (AUTOMATED) 2022-02-11 03:06:00 zEra Serra versity of [facility] POCT GLUCOSE (AUTOMATED) 2022-02-11 03:06:00 Ezra Serra versity of [facility] POCT GLUCOSE (AUTOMATED) 2022-02-11 03:06:00 Ezra Serra versity of [facility] POCT GLUCOSE (AUTOMATED) 2022-02-10 23:09:00 Ezra Serra Uni versity of [facility] POCT GLUCOSE (AUTOMATED) 2022-02-10 23:09:00 Ezra Serra Uni versity of [facility] POCT GLUCOSE (AUTOMATED) 2022-02-10 23:09:00 Ezra Serra versity of [facility] CBC WITH DIFF 2022-02-10 11:17:00 Delroy [facility] MAGNESIUM 2022-02-10 11:17[facility] 2022-02-10 11:17:00 [facility] (NA, K, CL, CO2, Medical Branch GLUCOSE, BUN, CREATININE, CA) CBC WITH DIFF 2022-02-10 11:17:00 [facility]FF 2022-02-10 11:17:00 Movva, [facility] BASIC METABOLIC PANEL 2022-02-10 11:17:00 [facility] (NA, K, CL, CO2, Medical Branch GLUCOSE, BUN, CREATININE, CA) MAGNESIUM 2022-02-10 11:17:00 [facility] 2022-02-10 11:17:00 [facility] BASIC METABOLIC PANEL 2022-02-10 11:17:00 [facility] (NA, K, CL, CO2, Medical Branch GLUCOSE, BUN, CREATININE, CA) COMPUTERIZED AXIAL 2022-02-10 03:00:00 Anesthesiology [facility] TOMOGRAPHY Medical Branch COMPUTERIZED AXIAL 2022-02-10 03:00:00 Anesthesiology [facility] TOMOGRAPHY Medical Branch COMPUTERIZED AXIAL 2022-02-10 03:00:00 Anesthesiology [facility] TOMOGRAPHY [facility] POCT GLUCOSE (AUTOMATED) 2022-02-10 02:43:00 [facility]OMATED) 2022-02-10 02:43:00 Ezra Serra versity of [facility] POCT GLUCOSE (AUTOMATED) 2022-02-10 02:43:00 [facility] POCT GLUCOSE (AUTOMATED) 2022-02-09 22:33:00 [facility] POCT GLUCOSE (AUTOMATED) 2022-02-09 22:33:00 Ezra Serra versity of [facility] POCT GLUCOSE (AUTOMATED) 2022-02-09 22:33:00 Ezra Serra versity of [facility] CT ABDOMEN PELVIS W 2022-02-09 20:14:05 [place], [facility] CT HEAD WO CONTRAST 2022-02-09 20:14:05 [place], [facility] [place] [facility] CT THORAX W CONTRAST 2022-02-09 20:14:05 [place], Lynne Paola [facility] [place] [facility] CT ABDOMEN PELVIS W 2022-02-09 20:14:05 [place], [facility] [place] CONTRAST Medical Branch CT THORAX W CONTRAST 2022-02-09 20:14:05 [place], [facility] [place] [facility] CT HEAD WO CONTRAST 2022-02-09 20:14:05 [place], [facility] [place] [facility] CT ABDOMEN PELVIS W 2022-02-09 20:14:05 [place], [facility] [place] CONTRAST Medical Branch CT HEAD WO CONTRAST 2022-02-09 20:14:05 [place], [facility] [place] [facility] CT THORAX W CONTRAST 2022-02-09 20:14:05 [place], [facility] Uni versity of [facility] POCT GLUCOSE (AUTOMATED) 2022-02-09 17:35:00 Shauna Serrarick [facility] [place] [facility] POCT GLUCOSE (AUTOMATED) 2022-02-09 17:35:00 Sweet Ezra [facility] [place] [facility] POCT GLUCOSE (AUTOMATED) 2022-02-09 17:35:00 Shauna Serrarick [facility] [place] [facility] POCT GLUCOSE (AUTOMATED) 2022-02-09 13:55:00 Maryse Ezra [facility] [place] [facility] POCT GLUCOSE (AUTOMATED) 2022-02-09 13:55:00 Shauna Serrarick [facility] [place] [facility] POCT GLUCOSE (AUTOMATED) 2022-02-09 13:55:00 Ezra Serra [facility] [place] [facility] CBC WITH DIFF 2022-02-09 11:48:00 [place], [facility] of [facility] MAGNESIUM 2022-02-09 11:48:00 [place], [facility] BASIC METABOLIC PANEL 2022-02-09 11:48:00 [place], Lynne Paola [facility] [place] (NA, K, CL, CO2, Medical Branch GLUCOSE, BUN, CREATININE, CA) CBC WITH DIFF 2022-02-09 11:48:00 [place], [facility] [place] [facility] BASIC METABOLIC PANEL 2022-02-09 11:48:00 [place], Lynne Caballerose [facility] [place] (NA, K, CL, CO2, Medical Branch GLUCOSE, BUN, CREATININE, CA) MAGNESIUM 2022-02-09 11:48:00 [place] Lynne Guevara Universi ty [facility] CBC WITH DIFF 2022-02-09 11:48:00 [place], [facility] ty [facility] MAGNESIUM 2022-02-09 11:48:00 [place], [facility] ty [facility] BASIC METABOLIC PANEL 2022-02-09 11:48:00 [place] Lynne Paola [facility] [place] (NA, K, CL, CO2, Medical Branch GLUCOSE, BUN, CREATININE, CA) POCT GLUCOSE (AUTOMATED) 2022-02-09 02:40:00 Shauna Serrarick Uni versity of [facility] POCT GLUCOSE (AUTOMATED) 2022-02-09 02:40:00 Ezra Serra [facility] [place] [facility] POCT GLUCOSE (AUTOMATED) 2022-02-09 02:40:00 Maryse Ezra [facility] [place] [facility] POCT GLUCOSE (AUTOMATED) 2022-02-09 00:05:00 Maryse Ezra [facility] [place] [facility] POCT GLUCOSE (AUTOMATED) 2022-02-09 00:05:00 Maryse Ezra [facility] [place] [facility] POCT GLUCOSE (AUTOMATED) 2022-02-09 00:05:00 Shauna Serrarick [facility] [place] [facility] POCT GLUCOSE (AUTOMATED) 2022-02-08 17:57:00 Maryse Ezra [facility] [place] [facility] POCT GLUCOSE (AUTOMATED) 2022-02-08 17:57:00 Maryse Ezra [facility] [place] [facility] POCT GLUCOSE (AUTOMATED) 2022-02-08 17:57:00 Maryse Ezra [facility] [place] [facility] POCT GLUCOSE (AUTOMATED) 2022-02-08 14:26:00 Maryse Ezra [facility] [place] [facility] POCT GLUCOSE (AUTOMATED) 2022-02-08 14:26:00 Shauna Serrarick [facility] [place] [facility] POCT GLUCOSE (AUTOMATED) 2022-02-08 14:26:00 Shauna Serrarick [facility] [place] [facility] CBC WITH DIFF 2022-02-08 10:32:00 [place], Lynne Paola Universi ty of [facility] MAGNESIUM 2022-02-08 10:32:00 [place], [facility] BASIC METABOLIC PANEL 2022-02-08 10:32:00 [place], Lynne Paola [facility] [place] (NA, K, CL, CO2, Medical Branch GLUCOSE, BUN, CREATININE, CA) CBC WITH DIFF 2022-02-08 10:32:00 [place], Lynne [facility] Univers ty [facility] BASIC METABOLIC PANEL 2022-02-08 10:32:00 [place], Lynne Paola [facility] [place] (NA, K, CL, CO2, Medical Branch GLUCOSE, BUN, CREATININE, CA) MAGNESIUM 2022-02-08 10:32:00 [place], [facility]FF 2022-02-08 10:32:00 [place], [facility] MAGNESIUM 2022-02-08 10:32:00 [place], [facility] Univers ty [facility] BASIC METABOLIC PANEL 2022-02-08 10:32:00 [place], Ylnne Paola [facility] [place] (NA, K, CL, CO2, Medical Branch GLUCOSE, BUN, CREATININE, CA) POCT GLUCOSE (AUTOMATED) 2022-02-08 02:45:00 Ezra Serra Uni versity of [facility] POCT GLUCOSE (AUTOMATED) 2022-02-08 02:45:00 Ezra Serra [facility] [place] [facility] POCT GLUCOSE (AUTOMATED) 2022-02-08 02:45:00 Ezra Serra [facility] [place] [facility] POCT GLUCOSE (AUTOMATED) 2022-02-07 22:59:00 Ezra Serra [facility] [place] [facility] POCT GLUCOSE (AUTOMATED) 2022-02-07 22:59:00 Ezra Serra [facility] [place] [facility] POCT GLUCOSE (AUTOMATED) 2022-02-07 22:59:00 Ezra Serra [facility] [place] [facility] POCT GLUCOSE (AUTOMATED) 2022-02-07 17:26:00 Ezra Serra [facility] [place] [facility] POCT GLUCOSE (AUTOMATED) 2022-02-07 17:26:00 Ezra Serra Uni versity of [facility] POCT GLUCOSE (AUTOMATED) 2022-02-07 17:26:00 Ezra Serra Uni versity of [facility] POCT GLUCOSE (AUTOMATED) 2022-02-07 13:43:00 Ezra Serra Uni versity of [facility] POCT GLUCOSE (AUTOMATED) 2022-02-07 13:43:00 Ezra Serra Uni versity of [facility] POCT GLUCOSE (AUTOMATED) 2022-02-07 13:43:00 Ezra Serra Uni versity of [facility] CBC WITH DIFF 2022-02-07 10:02:00 [place], [facility] BASIC METABOLIC PANEL 2022-02-07 10:02:00 [place], Lynne Caballerose [facility] [place] (NA, K, CL, CO2, Medical Branch GLUCOSE, BUN, CREATININE, CA) MAGNESIUM 2022-02-07 10:02:00 [place], Lynne [facility] CBC WITH DIFF 2022-02-07 10:02:00 [place], [facility] MAGNESIUM 2022-02-07 10:02:00 [place], [facility] BASIC METABOLIC PANEL 2022-02-07 10:02:00 [place], Lynne Caballerose [facility] [place] (NA, K, CL, CO2, Medical Branch GLUCOSE, BUN, CREATININE, CA) CBC WITH DIFF 2022-02-07 10:02:00 [place], Lynne [facility] MAGNESIUM 2022-02-07 10:02:00 [place], Lynne [facility] BASIC METABOLIC PANEL 2022-02-07 10:02:00 [place], Lynne Caballerose [facility] [place] (NA, K, CL, CO2, Medical Branch GLUCOSE, BUN, CREATININE, CA) POCT GLUCOSE (AUTOMATED) 2022-02-07 03:42:00 Ezra Serra Uni versity of [facility] POCT GLUCOSE (AUTOMATED) 2022-02-07 03:42:00 Ezra Serra Uni versity of [facility] POCT GLUCOSE (AUTOMATED) 2022-02-07 03:42:00 Ezra Serra [facility] [place] [facility] POCT GLUCOSE (AUTOMATED) 2022-02-06 23:04:00 Maryse, Ezra [facility] [place] [facility] POCT GLUCOSE (AUTOMATED) 2022-02-06 23:04:00 Maryse, Ezra [facility] [place] [facility] POCT GLUCOSE (AUTOMATED) 2022-02-06 23:04:00 Ezra Serra [facility] [place] [facility] POCT GLUCOSE (AUTOMATED) 2022-02-06 17:52:00 MaryseShaunaEzra [facility] [place] [facility] POCT GLUCOSE (AUTOMATED) 2022-02-06 17:52:00 Shauna Serrarick [facility] [place] [facility] POCT GLUCOSE (AUTOMATED) 2022-02-06 17:52:00 MaryseEzra [facility] [place] [facility] POCT GLUCOSE (AUTOMATED) 2022-02-06 14:03:00 MaryseEzra [facility] [place] [facility] POCT GLUCOSE (AUTOMATED) 2022-02-06 14:03:00 MaryseEzra [facility] [place] [facility] POCT GLUCOSE (AUTOMATED) 2022-02-06 14:03:00 MaryseEzra Uni versity of [facility] CBC WITH DIFF 2022-02-06 11:03:00 [place], [facility]OL[facility] PANEL 2022-02-06 11:03:00 [place] Lynne Paola [facility] [place] (NA, K, CL, CO2, Medical Branch GLUCOSE, BUN, CREATININE, CA) MAGNESIUM 2022-02-06 11:03:00 [place], [facility] 2022-02-06 11:03:00 [place], [facility] 2022-02-06 11:03:00 [place], [facility] BASIC METABOLIC PANEL 2022-02-06 11:03:00 [place], Lynne Paola [facility] [place] (NA, K, CL, CO2, Medical Branch GLUCOSE, BUN, CREATININE, CA) CBC WITH DIFF 2022-02-06 11:03:00 [place], [facility] 2022-02-06 11:03:00 [place], Lynne [facility] BASIC METABOLIC PANEL 2022-02-06 11:03:00 Lyn[place] Borja Paola Un [facility] (NA, K, CL, CO2, Medical Branch GLUCOSE, BUN, CREATININE, CA) POCT GLUCOSE (AUTOMATED) 2022-02-06 02:58:00 Ezra Serra Uni versity of [facility] POCT GLUCOSE (AUTOMATED) 2022-02-06 02:58:00 Ezra Serra Uni versity of [facility] POCT GLUCOSE (AUTOMATED) 2022-02-06 02:58:00 Ezra Serra Uni versity of [facility] POCT GLUCOSE (AUTOMATED) 2022-02-06 01:40:00 Ezra Serra Uni versity of [facility] POCT GLUCOSE (AUTOMATED) 2022-02-06 01:40:00 Ezra Serra Uni versity of [facility] POCT GLUCOSE (AUTOMATED) 2022-02-06 01:40:00 Ezra Serra Uni versity of [facility] XR CHEST 1 VW 2022-02-05 23:35:00 Dalia [facility] XR CHEST 1 VW 2022-02-05 23:35:00 Dalia [facility] XR CHEST 1 2022-02-05 23:35:00 Dalia [facility] POCT GLUCOSE (AUTOMATED) 2022-02-05 22:57:00 Ezra Serra Uni versity of [facility] POCT GLUCOSE (AUTOMATED) 2022-02-05 22:57:00 Ezra Serra Uni versity of [facility] POCT GLUCOSE (AUTOMATED) 2022-02-05 22:57:00 Ezra Serra Uni versity of [facility] IR BIOPSY LUNG 2022-02-05 21:52:00 Doretha [facility] PERCUTANEOUS OR [facility] MEDASTINUM WITH FLUORO IR BIOPSY LUNG 2022-02-05 21:52:00 Doretha [facility] PERCUTANEOUS OR [facility] MEDASTINUM WITH FLUORO IR BIOPSY LUNG 2022-02-05 21:52:00 Doretha [facility] PERCUTANEOUS OR [facility] MEDASTINUM WITH FLUORO IR BIOPSY LUNG 2022-02-05 21:52:00 Doretha [facility] PERCUTANEOUS OR [facility] MEDASTINUM WITH FLUORO CT LUMBAR SPINE W 2022-02-05 21:48:03 [place], [facility] CONTRAST Medical Branch CT THORACIC SPINE W 2022-02-05 21:48:03 Silviava, [facility] CONTRAST Medical Branch CT LUMBAR SPINE W 2022-02-05 21:48:03 Silviava, [facility] CONTRAST [facility] CT THORACIC SPINE W 2022-02-05 21:48:03 Silviava, [facility] CONTRAST Medical Branch CT LUMBAR SPINE W 2022-02-05 21:48:03 Movva, [facility] CONTRAST [facility] CT THORACIC SPINE W 2022-02-05 [facility]:48[facility] CYTO ORGAN 2022-02-05 21:14:00 Doretha [facility] ASPIRATION-FNA Medical Branch CYTO ORGAN 2022-02-05 21:14:00 Doretha [facility] ASPIRATION-FNA Medical Branch CYTO ORGAN 2022-02-05 21:14:00 Doretha [facility] ASPIRATION-FNA Medical Branch OSI CT SPINE THORACIC 2022-02-05 19:41:00 Jean-Pierre Garvey [facility] er Center OSI CT SPINE LUMBAR 2022-02-05 19:41:00 Jean-Pierre Garvey [facility] er Center POCT GLUCOSE (AUTOMATED) 2022-02-05 14:37:00 Ezra Serra [facility] POCT GLUCOSE (AUTOMATED) 2022-02-05 14:37:00 Ezra Serra [facility] POCT GLUCOSE (AUTOMATED) 2022-02-05 14:37:00 Ezra Serra [facility] CBC WITH DIFF 2022-02-05 09:10:00 Doretha [facility] BASIC METABOLIC PANEL 2022-02-05 09:10:00 Del Coyne [facility] (NA, K, CL, CO2, Medical Branch GLUCOSE, BUN, CREATININE, CA) CBC WITH DIFF 2022-02-05 09:10:00 Doretha [facility] MAGNESIUM 2022-02-05 09:10:00 Dore[place], [facility] MAGNESIUM 2022-02-05 09:10:00 [place], [facility] BASIC METABOLIC PANEL 2022-02-05 09:10:00 [place], [facility] (NA, K, CL, CO2, Medical Branch GLUCOSE, BUN, CREATININE, CA) CBC WITH DIFF 2022-02-05 09:10:00 [place], [facility] MAGNESIUM 2022-02-05 09:10:00 [place], [facility] BASIC METABOLIC PANEL 2022-02-05 09:10:00 [place], [facility] (NA, K, CL, CO2, Medical Branch GLUCOSE, BUN, CREATININE, CA) POCT GLUCOSE (AUTOMATED) 2022-02-05 02:57:00 [facility]ra [facility] POCT GLUCOSE (AUTOMATED) 2022-02-05 02:57:00 Ezra Serra Uni versity of [facility] POCT GLUCOSE (AUTOMATED) 2022-02-05 02:57:00 Ezra Serra Uni versity of [facility] POCT GLUCOSE (AUTOMATED) 2022-02-04 22:56:00 Ezra Serra Uni vers[facility] of [facility] POCT GLUCOSE (AUTOMATED) 2022-02-04 22:56:00 Ezra Serra Uni vers[facility] of [facility] POCT GLUCOSE (AUTOMATED) 2022-02-04 22:56:00 [facility] / [facility] 2022-02-04 20:16:00 Del Coyne [facility] BASIC METABOLIC PANEL 2022-02-04 20:16:00 Doretha, [facility] (NA, K, CL, CO2, Medical Branch GLUCOSE, BUN, CREATININE, CA) PROTHROMBIN TIME / INR 2022-02-04 20:16:00 Del Coyne [facility] BASIC METABOLIC PANEL 2022-02-04 20:16:00 Doretha [facility] (NA, K, CL, CO2, Medical Branch GLUCOSE, BUN, CREATININE, CA) PROTHROMBIN TIME / INR 2022-02-04 20:16:00 [facility] BASIC METABOLIC PANEL 2022-02-04 20:16:00 [facility] Coyne [facility] (NA, K, CL, CO2, Medical Branch GLUCOSE, BUN, CREATININE, CA) POCT GLUCOSE (AUTOMATED) 2022-02-04 18:07:00 Yeh, [facility] POCT GLUCOSE (AUTOMATED) 2022-02-04 18:07:00 Yeh, Kingsley [facility] POCT GLUCOSE (AUTOMATED) 2022-02-04 18:07:00 [facility] ([facility]OMATED) 2022-02-04 14:15:00 YehKingsley [facility] POCT GLUCOSE (AUTOMATED) 2022-02-04 14:15:00 [facility], [facility] PO[facility]SE (AUTOMATED) 2022-02-04 14:15:00 YehKingsley [facility] CBC WITH DIFF 2022-02-04 10:12:00 [place], [facility] BASIC METABOLIC PANEL 2022-02-04 10:12:00 [place], Lynne [facility] [place] (NA, K, CL, CO2, Medical Branch GLUCOSE, BUN, CREATININE, CA) MAGNESIUM 2022-02-04 10:12:00 [place], [facility] CBC WITH DIFF 2022-02-04 10:12:00 [place], [facility] MAGNESIUM 2022-02-04 10:12:00 [place], [facility] BASIC METABOLIC PANEL 2022-02-04 10:12:00 [place], Lynne [facility] Un [facility] [place] (NA, K, CL, CO2, Medical Branch GLUCOSE, BUN, CREATININE, CA) CBC WITH DIFF 2022-02-04 10:12:00 [place], [facility] MAGNESIUM 2022-02-04 10:12:00 [place], [facility] BASIC METABOLIC PANEL 2022-02-04 10:12:00 [place] Lynne Paola [facility] [place] (NA, K, CL, CO2, Medical Branch GLUCOSE, BUN, CREATININE, CA) URINE CULTURE 2022-02-04 09:45:[facility] 2022-02-04 09:45:00 Amsabino [facility] URINE CULTURE 2022-02-04 09:45:00 Amsabino [facility] URINALYSIS 2022-02-04 09:44:00 Amsabino [facility] URINALYSIS 2022-02-04 09:44:00 Amsabino [facility] URINALYSIS 2022-02-04 09:44:00 [facility] POCT GLUCOSE (AUTOMATED) 2022-02-04 02:43:00 YeKingsley medina [facility] POCT GLUCOSE (AUTOMATED) 2022-02-04 02:43:00 [facility] PO[facility]SE (AUTOMATED) 2022-02-04 02:43:00 [facility] POCT [facility]UCOSE (AUTOMATED) 2022-02-03 22:27:00 YehKingsley [facility] POCT GLUCOSE (AUTOMATED) 2022-02-03 22:27:00 [facility] POCT GLUCOSE (AUTOMATED) 2022-02-03 22:27:00 Kingsley Sibley [facility] CT THORAX WO CONTRAST 2022-02-03 21:30:43 [place], Lynne Paola Un iversity of [facility] CT THORAX WO CONTRAST 2022-02-03 21:30:43 [place], Lynne Paola Un iversity of [facility] CT THORAX WO CONTRAST 2022-02-03 21:30:43 [place], Lynne Paola Un iversity of [facility] CT THORACIC SPINE WO 2022-02-03 21:30:07 [place], Lynne Paola [facility] [place] CONTRAST [facility] CT THORACIC SPINE WO 2022-02-03 21:30:07 [place], Lynne Paola [facility] CONTR[facility] CT THORACIC SPINE WO 2022-02-03 21:30:07 [place], Lynne Caballerose [facility] [place] CONTRAST [facility] CT LUMBAR SPINE WO 2022-02-03 21:29:26 [place], Lynne Guevara [facility] [place] CONTRAST [facility] CT LUMBAR SPINE WO 2022-02-03 21:29:26 [place], Lynne [facility]United [facility] CONTRAST [facility] CT LUMBAR SPINE WO 2022-02-03 21:29:26 [place], [facility] POCT GLUCOSE (AUTOMATED) 2022-02-03 17:27:00 [facility]) 2022-02-03 17:27:00 [facility] (AUTOMATED) 2022-02-03 17:27:00 [facility] (AUTOMATED) 2022-02-03 14:29:00 [facility] (AUTOMATED) 2022-02-03 14:29:00 [facility]) 2022-02-03 14:29:00 [facility] [facility] MRSA / MSSA SCREEN BY 2022-02-03 11:13:00 Roddy [facility] MRSA / MSSA SCREEN BY 2022-02-03 11:13:00 Roddy [facility] MRSA / MSSA SCREEN BY 2022-02-03 11:13:00 Roddy [facility] SEDIMENTATION RATE 2022-02-03 11:12:00 Fabien Guzmán [facility] CBC WITH DIFF 2022-02-03 11:12:00 Roddy [facility] MAGNESIUM 2022-02-03 11:12:00 Roddy [facility] CBC WITH DIFF 2022-02-03 11:12:00 Roddy [facility] BASIC METABOLIC PANEL 2022-02-03 11:12:00 [facility] (NA, K, CL, CO2, Medical Branch GLUCOSE, BUN, CREATININE, CA) SEDIMENTATION RATE 2022-02-03 11:12:00 Arielle [facility] MAGNESIUM 2022-02-03 11:12:00 [facility] BASIC METABOLIC PANEL 2022-02-03 11:12:00 [facility] (NA, K, CL, CO2, Medical Branch GLUCOSE, BUN, CREATININE, CA) SEDIMENTATION RATE 2022-02-03 11:12:00 Arielle [facility] CBC WITH DIFF 2022-02-03 11:12:00 Roddy [facility] MAGNESIUM 2022-02-03 11:12:00 [facility] BASIC METABOLIC PANEL 2022-02-03 11:12:00 sabino [facility] (NA, K, CL, CO2, Medical Branch GLUCOSE, BUN, CREATININE, CA) XR BONE SURVEY 2022-02-03 10:10:00 Roddy [facility] XR BONE SURVEY 2022-02-03 10:10:00 Roddy [facility] XR BONE SURVEY 2022-02-03 10:10:00 [facility] LIPID PANEL 2022-02-03 05:18:00 [facility] ([id number]TOTAL Medical Branch CHOLESTEROL, TRIGLYCERIDES, HDL) CBC WITH DIFF 2022-02-03 05:18:00 [facility] GLYCOSYLATED HEMOGLOBIN 2022-02-03 05:18[facility] CBC WITH DIFF 2022-02-03 05:18:00 [facility] BASIC METABOLIC PANEL 2022-02-03 05:18:00 [facility] (NA, K, CL, CO2, Medical Branch GLUCOSE, BUN, CREATININE, CA) PHOSPHORUS 2022-02-03 05:18:00 Amsabino [facility] GLYCOSYLATED HEMOGLOBIN 2022-02-03 05:18:00 [facility] Medical [place] LIPID PANEL 2022-02-03 05:18:00 [facility] ([id number])(TOTAL Medical Branch CHOLESTEROL, TRIGLYCERIDES, HDL) BLOOD CULTURE SCREEN 2022-02-03 05:18:00 [facility] C-REACTIVE PROTEIN 2022-02-03 05:18:[facility]LOOD [facility] SCREEN 2022-02-03 05:18[facility] PHOSPHORUS 2022-02-03 05:18:00 [facility] C-REACTIVE PROTEIN 2022-02-03 05:18:00 [facility] BASIC METABOLIC PANEL 2022-02-03 05:18:00 [facility] (NA, K, CL, CO2, Medical Branch GLUCOSE, BUN, CREATININE, CA) LIPID PANEL 2022-02-03 05:18:00 Roddy [facility] ([id number])(TOTAL Medical Branch CHOLESTEROL, TRIGLYCERIDES, HDL) CBC WITH DIFF 2022-02-03 05:18:00 [facility] GLYCOSYLATED HEMOGLOBIN 2022-02-03 05:18:00 [facility] BLOOD CULTURE SCREEN 2022-02-03 05:18:00 Roddy [facility] PHOSPHORUS 2022-02-03 05:18:00 [facility] C-REACTIVE PROTEIN 2022-02-03 05:18:00 [facility] BASIC METABOLIC PANEL 2022-02-03 05:18:00 [facility] (NA, K, CL, CO2, Medical Branch GLUCOSE, BUN, CREATININE, CA) OSI CT SPINE THORACIC 2022-02-02 19:41:00 Jean-Pierre Garvey [facility] er Center OSI CT SPINE LUMBAR 2022-02-02 19:41:00 Jean[facility]Pierre [facility] O[facility] CT CHEST 2022-02-02 19:41:00 Jean-Pierre Garvey [facility] er [place] OSI MRI SPINE LUMBAR 2022-01-30 21:27:00 Jean-Pierre Garvey [facility] er Center OSI CHEST 2022-01-30 21:27:00 Jean-Pierre Garvey [facility] OSI CT CHEST ABDOMEN 2022-01-30 21:26:00 Jean-Pierre Garvey [facility] PELVIS [facility] OSI CT ABDOMEN AND 2021-12-25 20:27:00 Jean-Pierre Garvey [facility] PELVIS [facility] XR, knee, 3 view 2021 00:00:00 Jennifer [facility] [id number] 2021-11-07 00:00:00 CIRILO.06 [facility] Hospi ashley Total Replacement of 2021-11-07 00:00:00 Jennifer Orthopedic Right Knee Joint Sports Medicine XR, knee, 4 or more view 2021-09-19 00:00:00 Kingsley el Orthopedic Sports Medicine POCT GLUCOSE (AUTOMATED) 2021-06-21 21:08:00 Mitch [facility] ([facility]OM[facility]) 2021-06-21 18:06:00 Mitch [facility] PO[facility]SE (AUTOMATED) 2021-06-21 13:21:00 Mitch Sherman [facility] PO[facility]SE (AUTOMATED) 2021-06-21 03:04:00 Mitch Sherman Uni [facility] XR CHEST 1 VW 2021-06-20 21:12:00 [facility] POCT GLUCOSE (AUTOMATED) 2021-06-20 20:52:00 Mitch Sherman [facility] [place] [facility] POCT GLUCOSE (AUTOMATED) 2021-06-20 16:29:00 Maite Shermanarg [facility] [place] [facility] POCT GLUCOSE (AUTOMATED) 2021-06-20 13:26:00 Maite Shermanarg [facility] [place] [facility] BASIC METABOLIC PANEL 2021-06-20 09:37:00 Zane [facility] (NA, K, CL, CO2, Medical Branch GLUCOSE, BUN, CREATININE, CA) CBC WITH DIFF 2021-06-20 09:37:00 Zane [facility] o f [place] [facility] POCT GLUCOSE (AUTOMATED) 2021-06-20 02:29:00 Maite Shermanarg [facility] [place] [facility] POCT GLUCOSE (AUTOMATED) 2021-06-19 21:46:00 Maite Shermanarg [facility] [place] [facility] POCT GLUCOSE (AUTOMATED) 2021-06-19 21:46:00 Maite Shermanarg [facility] [place] [facility] VANCOMYCIN TROUGH 2021-06-19 19:20:00 Abu Sean Ramos Univers ity [facility] VANCOMYCIN TROUGH 2021-06-19 19:20:00 Abu Atherabhijit, [facility]ct[facility] ity [facility] POCT GLUCOSE (AUTOMATED) 2021-06-19 16:52:00 John Mitch [facility] [place] [facility] POCT GLUCOSE (AUTOMATED) 2021-06-19 16:52:00 Maite Shermanarg [facility] [place] [facility] POCT GLUCOSE (AUTOMATED) 2021-06-19 13:08:00 Maite Shermanarg [facility] [place] [facility] POCT GLUCOSE (AUTOMATED) 2021-06-19 13:08:00 John Mitch [facility] [place] [facility] BASIC METABOLIC PANEL 2021-06-19 09:16:00 Abu Sean Ramos [facility] [place] (NA, K, CL, CO2, Medical Branch GLUCOSE, BUN, CREATININE, CA) CBC WITH DIFF 2021-06-19 09:16:00 Abu Sean Ramos [facility]it y [facility] BASIC METABOLIC PANEL 2021-06-19 09:16:00 Abu Sean Ramos [facility] [place] (NA, K, CL, CO2, Medical Branch GLUCOSE, BUN, CREATININE, CA) CBC WITH DIFF 2021-06-19 09:16:00 Sean Goode [facility] POCT GLUCOSE (AUTOMATED) 2021-06-19 00:56:00 ShermanMitch [facility] POCT GLUCOSE (AUTOMATED) 2021-06-19 00:56:00 Maite Shermanarg [facility] POCT GLUCOSE (AUTOMATED) 2021-06-18 22:26:00 John Mitch [facility] POCT GLUCOSE (AUTOMATED) 2021-06-18 22:26:00 Maite Shermanarg Uni [facility] BODY FLUID DIRECT COUNT 2021-06-18 22:19:00 Arturo [facility] AF[facility] CULTURE 2021-06-18 22:19:00 Arturo [facility] BODY FLUID 2021-06-18 22:19:00 Arturo [facility] CULTURE(AEROBIC/ANAEROBI Medical Branch C) BODY FLUID DIRECT COUNT 2021-06-18 22:19:00 Arturo [facility] AFB CULTURE 2021-06-18 22:19:00 Arturo [facility] o f [facility] BODY FLUID 2021-06-18 22:19:00 Arturo [facility] CULTURE(AEROBIC/ANAEROBI Medical Branch C) ASPIRATION JOINT LOWER 2021-06-18 21:03:00 Bong Morris [facility] ASPIRATION JOINT LOWER 2021-06-18 21:03:00 Bong Morris [facility] OSI MRI LOWER EXT 2021-06-18 18:40:00 Jean-Pierre Garvey [facility] POCT GLUCOSE (AUTOMATED) 2021-06-18 17:38:00 Sean Goode [facility] POCT GLUCOSE (AUTOMATED) 2021-06-18 17:38:00 Elvis Ramos [facility] MR KNEE RIGHT W WO 2021-06-18 17:08:31 [facility]ail [facility] MR KNEE RIGHT W WO 2021-06-18 17:08:31 Mikhail [facility] POCT GLUCOSE (AUTOMATED) 2021-06-18 12:58:00 Abu Rachel [facility] POCT GLUCOSE (AUTOMATED) 2021-06-18 12:58:00 Abu Rachel [facility] POCT GLUCOSE (AUTOMATED) 2021-06-18 06:44:00 Abu Darlene [facility] POCT GLUCOSE (AUTOMATED) 2021-06-18 06:44:00 Abu Darlene [facility] BLOOD CULTURE SCREEN 2021-06-18 06:20:00 Mikhail Goodwin [facility] BLOOD CULTURE SCREEN 2021-06-18 06:20:00 Mikhail Goodwin [facility] MA ARTHROCENTESIS 2021-06-18 06:02:02 Mikhail Goodwin [facility] ASPIR&/INJ [facility] JT/BURSA W/O US MA ARTHROCENTESIS 2021-06-18 06:02:02 Mikhail Goodwin [facility] ASPIR&/INJ [facility] JT/BURSA W/O US URIC ACID 2021-06-18 03:51:00 Mikhail Goodwin [facility] C-REACTIVE PROTEIN 2021-06-18 03:51:00 Mikhail Goodwin [facility] BASIC METABOLIC PANEL 2021-06-18 03:51:00 Mikhail Goodwin [facility] (NA, K, CL, CO2, [facility] Branch GLUCOSE, BUN, CREATININE, CA) SEDIMENTATION RATE 2021-06-18 03:51:00 Mikhail Goodwin [facility] CBC WITH DIFF 2021-06-18 03:51:00 Mikhail Goodwin [facility] URIC ACID 2021-06-18 03:51:00 Mikhail Goodwin [facility] C-REACTIVE PROTEIN 2021-06-18 03:51:00 Mikhail Goodwin [facility] BASIC METABOLIC PANEL 2021-06-18 03:51:00 Mikhail Goodwin [facility] (NA, K, CL, CO2, Medical Branch GLUCOSE, BUN, CREATININE, CA) SEDIMENTATION RATE 2021-06-18 03:51:00 Mikhail Goodwin [facility] y [facility] CBC WITH DIFF 2021-06-18 03:51:00 Mikhail Goodwin [facility] o f [facility] XR KNEE <3 VW RIGHT 2021-06-18 03:35:00 [facility] XR KNEE <3 VW RIGHT 2021-06-18 03:35:00 Mikhail Goodwin [facility] CONSENT/REFUSAL FOR 2021-06-18 03:05:21 Doctor Unassigned, No [facility] [place] [facility] Name [facility] CONSENT/REFUSAL FOR 2021-06-18 03:05:21 Doctor Unassigned, No [facility] [place] [facility] HOSPITAL ADMISSION 2021-06-17 05:01:00 Doctor Unassigned, No Uni [facility] XR KNEE 4+ VW RIGHT 2021-06-17 03:24:13 [facility] CBC WITH PLATELET AND 2021-06-17 02:40:00 [facility] DIFFERENTIAL COMPREHENSIVE METABOLIC 2021-06-17 02:40:00 [facility] PANEL SEDIMENTATION RATE 2021-06-17 02:40:00 Bharat Chawla [facility] ESTIMATED GFR 2021-06-17 02:40:00 [facility] C-REACTIVE PROTEIN 2021-06-17 02:40:00 [facility] CBC WITH PLATELET AND 2021-06-10 02:44:00 MaicoGraham trevino [facility] DIFFERENTIAL SEDIMENTATION RATE 2021-06-10 02:44:00 [facility]OL[facility] PANEL 2021-06-10 02:44:00 Maico, Graham [facility] URIC ACID LEVEL 2021-06-10 02:44:00 Graham [facility] ESTIMATED GFR 2021-06-10 02:44:00 Graham Nina [facility] ospital XR KNEE 4+ VW RIGHT 2021-06-10 01:48:29 MaicoGraham hanna [facility] C-REACTIVE PROTEIN 2021-06-09 20:54:00 Kymberly Hastings [facility] CELL COUNT AND 2021-05-26 17:00:00 [facility] DIFFERENTIAL, BODY FLUID MA ARTHROCENTESIS 2021-05-26 16:00:00 [facility] ASPIR&/INJ MAJOR JT/BURSA W/O US XR KNEE 4+ VW RIGHT 2021-05-26 15:43:26 [facility] CBC WITH PLATELET AND 2021-03-29 19:10:00 [facility] DIFFERENTIAL HEMOGLOBIN A1C 2021-03-29 19:10:00 [facility] MICROALBUMIN / 2021-03-29 19:10:00 [facility] CREATININE URINE RATIO COMPREHENSIVE METABOLIC 2021-03-29 19:10:00 [facility] PANEL WITH ADJUSTED CALCIUM LIPID PANEL 2021-03-29 19:10:00 [facility] PSA, TOTAL WITH REFLEX 2021-03-29 19:10:00 [facility] TO FREE XR KNEE 1 OR 2 VW RIGHT 2021-03-29 18:39:24 [facility] COLOGUARD 2021-02-17 01:12:00 [facility] HEMOGLOBIN A1C 2021-01-31 18:09:00 [facility] MICROALBUMIN / 2021-01-31 18:09:00 [facility] CREATININE URINE RATIO COMPREHENSIVE METABOLIC 2021-01-31 18:09:00 [facility] PANEL WITH ADJUSTED CALCIUM photo, eye, retina 2016-04-24 00:00:00 [facility] X-RAY OF SHOULDER 2 VIEW 2016-01-30 00:00:00 [facility] MRI of foot<sup>1</sup> 2015-02-18 06:00:00 Keegan Rios Emergency department 2013-04-24 06:00:00 Ernesto Rios visit for the evaluation and management of a patient, which requires these 3 rodriguez components: A detailed history; A detailed examination; and Medical decision making of moderate complexity. Counseling and/or coordination of care with o [place] operation<sup>2</sup> Operative procedure on [facility] foot<sup>2</sup> Tonsillectomy [facility] Plan of Care Planned Activity Planned Date Details Comments Source Future Scheduled 2022-03-30 Hepatitis C screening [facility] Test 07:24:29 (procedure) [code = Hospital [id number]] Future Scheduled 2022-03-30 COLONOSCOPY SCREENING [facility]odist [...] thodist Test 07:24:29 (procedure) [code = Hospital [id number]] Future Scheduled 2022-03-30 COLONOSCOPY SCREENING Me thodist [...] thodist Test 07:24:29 (procedure) [code = Hospital [id number]] Future Scheduled 2022-03-30 COLONOSCOPY SCREENING Me thodist [...] thodist Test 07:24:29 (procedure) [code = Hospital [id number]] Future Scheduled 2022-03-30 COLONOSCOPY SCREENING Me thodist [...] thodist Test 12:38:49 (procedure) [code = Hospital [id number]] Future Scheduled 2022-03-24 COLONOSCOPY SCREENING Me thodist [...] thodist Test 15:27:15 (procedure) [code = Hospital [id number]] Future Scheduled 2022-02-20 COLONOSCOPY SCREENING Me thodist [...] thodist Test 17:23:41 (procedure) [code = Hospital [id number]] Future Scheduled 2022-01-30 COLONOSCOPY SCREENING Me thodist [...] thodist Test 17:23:41 (procedure) [code = Hospital [id number]] Future Scheduled 2022-01-30 COLONOSCOPY SCREENING Me thodist [...] thodist Test 17:23:41 (procedure) [code = Hospital [id number]] Future Scheduled 2022-01-30 COLONOSCOPY SCREENING Me thodist [...] thodist Test 17:23:41 (procedure) [code = Hospital [id number]] Future Scheduled 2022-01-30 COLONOSCOPY SCREENING Me thodist [...] thodist Test 17:23:41 (procedure) [code = Hospital [id number]] Future Scheduled 2022-01-30 COLONOSCOPY SCREENING Me thodist [...] thodist Test 17:23:41 (procedure) [code = Hospital [id number]] Future Scheduled 2022-01-30 COLONOSCOPY SCREENING Me thodist [...] thodist Test 17:23:41 (procedure) [code = Hospital [id number]] Future Scheduled 2022-01-30 COLONOSCOPY SCREENING Me thodist [...] Refused) Future Scheduled I discussed at this [facility] ea Test time the patient has Orthope [...] motion and decreased risk of knee instability [employer]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 I discussed that risk factors for a [...] good symptom relief with conservative management in] [facility] Instructions [place] [facility] Encounters Start End Encounter Admission Attending Care Care Encounter Source Date/Time Date/Time Type Type Clinicians Facility Department ID 2022-03-20 Inpatient [facility] [id number] Univers 07:45:50 CHINYERE LOZANO i [facility] 2022-03-09 Inpatient R CHINYERE LOZANO [facility] [id number] Univers 16:54:24 CHINYERE LOZANO i [facility] 2022-03-09 Outpatient [facility] [id number] [place] 09:36:59 [id number] [facility] 2022-03-08 Outpatient [facility] [id number] [place] 16:30:08 [id number] [facility] 2022-01-31 Outpatient [facility] [id number] [place] 05:04:35 [id number] [facility] 2022-01-17 Outpatient Guru, STLMLC STLMLC [id number] Common 13:02:02 Jean-Pierre 40809 [facility] 2022-01-15 Outpatient STLMLC STLMLC [id number] Common 11:50:02 [facility] 2021-11-13 Inpatient Valentina Vilchis HCATO SURG [id number] [facility] 12:11:00 [id number] [facility] 2021-09-30 Outpatient STLMLC STLMLC [id number] Common 09:19:01 [facility] 2021-09-14 Outpatient STLMLC STLMLC [id number] Common 08:24:02 [facility] 2021-09-13 Outpatient STLMLC STLMLC [id number] Common 14:49:03 [facility] 2021-03-30 Outpatient 3 Jenae ENCPL AML [id number] [facility] 12:34:20 Saul [facility] [place] [facility] 2021-03-30 Outpatient 3 [id number] ENC[facility] AML [id number] [facility] 12:34:05 0723 [facility] [place] 2021-03-30 Outpatient 3 [id number] ENC[facility] REF [id number] [facility] 12:31:44 0717 [facility] [place] 2021-03-30 Outpatient 3 [id number] ENC[facility] REF [id number] [facility] 12:31:28 0716 [facility] [place] 2022-03-30 2022-04-12 Inpatient E YESSICA ENEDELIA MED [id number] T 04:31:00 19:10:00 DARLENE 2022-03-27 2022-03-27 Telephone RAYO Lozano [id number] Univers 00:00:00 00:00:00 Chinyere FORD 350.1.13.10 it [facility] 4.2.7.2.686 Noe as [id number] [place] [address] Branch 2022-03-23 2022-03-23 Telephone MELIZA Lozano [id number] Univers 00:00:00 00:00:00 Chinyere HEALTH 350.1.13.10 it [place] [id number] [place] [address] Branch OFFICE BUILDING 2022-03-23 2022-03-23 [facility] [id number] Univers 00:00:00 00:00:00 Chinyere HEALTH 350.1.13.10 it [place] [id number] [place] [address] Branch OFFICE BUILDING 2022-03-22 2022-03-22 [facility] 1.2.840.114 [id number] Univers 06:45:50 23:59:00 Encounter Chinyere Huerta HEALTH 350.1.13.10 ity of [place] [id number] [address] 2022-03-22 2022-03-22 Outpatient R CHINYERE LOZANO [facility] 1 [id number] Univers 06:45:28 23:59:00 CHINYERE LOZANO italysha of [facility] 2022-03-22 2022-03-22 [facility] 1.2.840.114 [id number] Univers 06:45:28 23:59:00 Encounter Chinyere Y HEALTH 350.1.13.10 ity of [place] [id number] [place] [id number] [place] 2022-03-21 2022-03-21 [facility] [id number] Univers 00:00:00 00:00:00 Chinyere HEALTH 350.1.13.10 it [place] [id number] [place] [address] Branch OFFICE BUILDING 2022-03-20 2022-03-20 [facility] [id number] Univers 00:00:00 00:00:00 Chinyere HEALTH 350.1.13.10 it [place] [id number] [place] [address] Branch OFFICE BUILDING 2022-03-16 2022-03-16 Outpatient R CARMELLIZ FOSTER [facility] 1 [id number] Univers 10:00:00 10:00:00 LIZ MOSS [facility] 2022-03-16 2022-03-16 Office Carmel [facility] 1.2.840.114 [id number] Univers 08:30:00 09:00:00 Visit Liz BOWEN 350.1.13.10 it y of [place].2.7.2.686 [place] [facility] [id number] [facility] 185 Branch 2022-03-16 2022-03-16 Outpatient R CARMELLIZ FOSTER [facility] 1 [id number] Univers 08:30:00 08:30:00 LIZ MOSS [facility] 2022-03-16 2022-03-16 Telephone LozanoRAYO [id number] Univers 00:00:00 00:00:00 Chinyerejaime DUKEY 350.1.13.10 it y of HOSPITAL 4.2.7.2.686 Noe as [id number] [facility] 038 [place] 2022-03-16 2022-03-16 Prep For RAYO Lozano 1.2.840.114 [id number] Univers 00:00:00 00:00:00 Surgery Chinyere FORD 350.1.13.10 it y of [place] [facility] 4.2.7.2.686 Noe as [id number] [facility] 038 Branch 2022-03-14 2022-03-14 Outpatient GERTRUDE RAYO [facility] [id number] [place] 14:15:00 14:15:00 Health 2022-03-09 2022-03-09 [facility] Demetrius [facility] 1.2.840.114 [id number] Univers 16:00:00 23:59:00 Encounter [facility] ANDRÉS 350.1.13.10 [place]y [place] [id number] [facility] 807 Branch ([facility]) 2022-03-09 2022-03-09 Outpatient CHINYERE LEIGH [facility] 1 [id number] Univers 14:15:00 15:58:36 CHINYERE LOZANO [facility] 2022-03-09 2022-03-09 Office Demetrius [facility] 1.2.840.114 [id number] Univers 14:15:00 15:58:36 Visit [facility] 350.1.13.10 it [place] [id number] [facility] MEDICAL 196 Branch OFFICE BUILDING 2022-03-09 2022-03-09 Orders Doctor RAYO 1.2.840.114 [id number] Univers 00:00:00 00:00:00 Only Unassigned, LOGAN 350.1.13.10 ity of [place] [facility] 4.2.7.2.686 Noe as [id number] [place] [address] Branch 2022-03-08 2022-03-08 Ancillary 1.2.840.1 [id number] Univers 20:15:00 20:20:00 Procedure 90225.1.1 it y of 3.412.2.7 [place] .3.430901 MD Reynoso [facility] 2022-03-08 2022-03-08 Ancillary EL 1.2.840.1 [id number] Univers 20:15:00 20:20:00 Procedure 46796.1.1 it y of 3.412.2.7 [place] .3.198571 MD Reynoso [facility] 2022-03-08 2022-03-08 Ancillary 1.2.840.1 [id number] Univers 20:10:00 20:15:00 Procedure 64545.1.1 it y of 3.412.2.7 [place] .3.236644 MD Reynoso [facility] 2022-03-08 2022-03-08 Ancillary EL 1.2.840.1 [id number] Univers 20:10:00 20:15:00 Procedure 19395.1.1 it y of 3.412.2.7 [place] .3.445509 MD Reynoso [facility] 2022-03-08 2022-03-08 Ancillary 1.2.840.1 [id number] Univers 20:05:00 20:10:00 Procedure 23972.1.1 it y of 3.412.2.7 [place] .3.245195 .8 [facility] 2022-03-08 2022-03-08 Ancillary EL 1.2.840.1 [id number] [id number] Univers 20:05:00 20:10:00 Procedure 52467.1.1 it y of 3.412.2.7 [place] .3.072762 .8 [facility] 2022-03-08 2022-03-08 Ancillary 1.2.840.1 [id number] [id number] Univers 20:00:00 20:05:00 Procedure 54968.1.1 it y of 3.412.2.7 [place] .3.330812 .8 [facility] 2022-03-08 2022-03-08 Ancillary EL 1.2.840.1 [id number] [id number] Univers 20:00:00 20:05:00 Procedure 75590.1.1 it y of 3.412.2.7 [place] .3.344253 .8 [facility] 2022-03-08 2022-03-08 Telephone Jessee Cabrera [facility] 1.2.840.11 [id number] Univers 00:00:00 00:00:00 Y HEALTH 350.1.13.10 i ty of [place] [id number] [facility] 196 Branch 2022-03-02 2022-03-02 Orders Doctor RAYO 1.2.840.114 [id number] Univers 00:00:00 00:00:00 Only Unassigned, LOGAN 350.1.13.10 ity of [place] [facility] 4.2.7.2.686 Noe as [id number] [facility] [address] 2022-02-21 2022-02-21 Multidisci RAI Gagnon 1.2.840.114 [id number] Univers 00:00:00 00:00:00 plinary Vihitha H 350.1.13.10 it y of Conference BUILDING 4.2.7.2.686 [place] [id number] [facility] [address] 2022-02-19 2022-02-19 Ancillary 1.2.840.1 [id number] Univers 20:25:00 20:30:00 Procedure 45096.1.1 it y of 3.412.2.7 [place] .3.279236 MD Byrne8 [facility] 2022-02-19 2022-02-19 Ancillary EL 1.2.840.1 [id number] 1100 [id number] Univers 20:25:00 20:30:00 Procedure 65211.1.1 it y of 3.412.2.7 [place] .3.858933 MD Byrne8 [facility] 2022-02-19 2022-02-19 Ancillary 1.2.840.1 [id number] 1100 [id number] Univers 20:20:00 20:25:00 Procedure 34743.1.1 it y of 3.412.2.7 [place] .3.565219 MD Reynoso [facility] 2022-02-19 2022-02-19 Ancillary EL 1.2.840.1 [id number] 1100 [id number] Univers 20:20:00 20:25:00 Procedure 95155.1.1 it y of 3.412.2.7 [place] .3.041564 MD Byrne8 [facility] 2022-02-19 2022-02-19 Ancillary 1.2.840.1 [id number] 1100 [id number] Univers 20:15:00 20:20:00 Procedure 19944.1.1 it y of 3.412.2.7 [place] .3.891579 MD Byrne8 [facility] 2022-02-19 2022-02-19 Ancillary EL 1.2.840.1 745560000 1100 [id number] Univers 20:15:00 20:20:00 Procedure 50853.1.1 it y of 3.412.2.7 [place] .3.200756 MD Byrne8 [facility] 2022-02-19 2022-02-19 Ancillary 1.2.840.1 031478552 1100 [id number] Univers 20:10:00 20:15:00 Procedure 58947.1.1 it y of 3.412.2.7 [place] .3.536744 MD Byrne8 [facility] 2022-02-19 2022-02-19 Ancillary EL 1.2.840.1 [id number] 1100 [id number] Univers 20:10:00 20:15:00 Procedure 44719.1.1 it y of 3.412.2.7 [place] .3.792818 MD Reynoso [facility] 2022-02-19 2022-02-19 Ancillary 1.2.840.1 [id number] 1100 [id number] Univers 20:05:00 20:10:00 Procedure 56251.1.1 it y of 3.412.2.7 [place] .3.947922 MD Byrne8 [facility] 2022-02-19 2022-02-19 Ancillary EL 1.2.840.1 [id number] 1100 [id number] Univers 20:05:00 20:10:00 Procedure 49014.1.1 it y of 3.412.2.7 [place] .3.050157 MD Reynoso [facility] 2022-02-19 2022-02-19 Ancillary 1.2.840.1 868886826 1100 [id number] Univers 20:00:00 20:05:00 Procedure 38256.1.1 it y of 3.412.2.7 [place] .3.672860 MD Reynoso [facility] 2022-02-19 2022-02-19 Ancillary EL 1.2.840.1 [id number] 1100 [id number] Univers 20:00:00 20:05:00 Procedure 19162.1.1 it y of 3.412.2.7 [place] .3.000008 MD Reynoso [facility] 2022-02-19 2022-02-19 Ancillary 1.2.840.1 823379125 1100 [id number] Univers 12:40:00 12:45:00 Procedure 02477.1.1 it y of 3.412.2.7 [place] .3.956030 MD Reynoso [facility] 2022-02-19 2022-02-19 Ancillary EL 1.2.840.1 [id number] 1100 [id number] Univers 12:40:00 12:45:00 Procedure 89475.1.1 it y of 3.412.2.7 [place] .3.368637 MD Byrne8 [facility] 2022-02-16 2022-02-16 Transition CHAVEZ ElizondoCynthia 1.2.840.114 991 85627 Univers 00:00:00 00:00:00 of Care Triny WOODY 350.1.13.10 it y of [facility] 4[facility]2.7.2.686 [phone] [address] 2022-02-02 2022-02-15 Inpatient U JESSEE CABRERA [facility] 1043 [id number] Univers 21:39:00 18:00:00 [facility] it y of [facility] 2022-02-02 2022-02-15 [facility] Ezra Serra 1.2.840.11 4 [id number] Univers 21:39:00 18:00:00 Encounter Toñito Kingsleychuckie FORD 350.1.13. 10 ity of [facility] 4.2.7.2.686 [place] [id number] [facility] [address] 2022-02-15 2022-02-15 Lab Andrzej Corona 1.2.840.1 [id number] 52 [id number] Univers 00:00:00 00:00:00 RequKarla Armstrong 72940.1.1 ity of n 3.412.2.7 [place] .3.374260 MD Byrne8 [facility] 2022-02-15 2022-02-15 Lab Andrzej Corona 1.2.840.1 [id number] 52 [id number] Univers 00:00:00 00:00:00 RequKarla Armstrong 30252.1.1 ity of n 3.412.2.7 [place] .3.311109 MD Byrne8 [facility] 2022-02-14 2022-02-14 Anesthesia Shoaib Ortiz 1.2.840.1 [id number] 3 [id number] Univers 23:59:59 23:59:59 Event 63292.1.1 ity of 3.104.2.7 [place] .3.673322 Medica l .8 Branch 2022-02-13 2022-02-13 Anesthesia Edgar Villela 1.2.840.1 1465955 803 [id number] Univers 14:45:00 17:55:00 Event Caridad Sotomayor 14670.1.1 ity of 3.104.2.7 [place] .3.217367 Medica l .8 Branch 2022-02-13 2022-02-13 Travel 1.2.840.1 1.2.893.719 0422 4327 Univers 00:00:00 00:00:00 34736.1.1 350.1.13.10 ity of 3.104.2.7 [place].3.698 [place] .[place] 084.8 Medica l .8 Branch 2022-02-09 2022-02-09 Surgery Anesthesiol 1.2.840.7 [id number] 9 [id number] Univers 13:00:00 14:50:00 ogy 21029.1.1 ity of 3.104.2.7 [place] .3.193607 Medica l .8 Branch 2022-02-09 2022-02-09 Anesthesia Abhay Casarez 1.2.840.1 10 28883760 [id number] Univers 13:50:00 14:09:00 Event Joanie Douglas 11078.1.1 ity of 3.104.2.7 [place] .3.560377 Medica l .8 Branch 2022-02-08 2022-02-08 Anesthesia Bhavana Jensen 1.2.840.2 [id number] Univers 23:59:59 23:59:59 Event 04181.1.1 ity of 3.104.2.7 [place] .3.809326 Medica l .8 Branch 2022-02-06 2022-02-[address] [facility], 1.2.840.0 [id number] 9 [id number] Univers 00:00:00 00:00:00 Management Care 89500.1.1 i ty of Transition 3.104.2.7 Noe as .3.262472 Medica l .8 Branch 2022-02-05 2022-02-05 Anesthesia Abhay Casarez 1.2.840.1 10 [id number] [facility] 14:20:00 15:54:00 Event Padmini Castillo 30159.1.1 ity of 3.104.2.7 [place] .3.068937 Medica l .8 Branch 2022-02-02 2022-02-02 Travel 1.2.840.1 1.2.236.900 1259 2757 Univers 00:00:00 00:00:00 64033.1.1 350.1.13.10 ity of 3.104.2.7 [place].3.698 [place]28[place] 084.8 Medica l .8 Branch 2022-01-31 2022-01-31 Emergency E PENELOPE BERNAL, [facility] [address] [facility] 03:02:00 21:53:00 MOHIT 2022-01-17 2022-01-17 OFFICE STLMLC STLMLC [id number] Co mmon 00:00:00 00:00:00 VISIT [facility] PT LEVEL 4 [facility] 2022-01-04 2022-01-04 (TEL) STLMLC STLMLC [id number] Co mmon 00:00:00 00:00:00 [facility] 2022-01-02 2022-01-02 Refill Dadabhoy, 1.2.840.1 [id number] 2100 [id number] Methodi 00:00:00 00:00:[address] [facility] 3.430.2.7 Hospit a .3.117742 l .8 2022-01-02 2022-01-02 Refill Dadabhoy, 1.2.840.1 716247094 2100 009417 Methodi 00:00:00 00:00:[address] [facility]im 3.430.2.7 Hospit a .3.248091 l .8 2021-12-21 2021-12-21 (TEL) STLMLC STLMLC 9641492 Co mmon 00:00:00 00:00:00 [facility] 2021 2021 Outpatient FOG_Patel_A AOSM AOSM 633 6722- Jennifer 00:00:00 00:00:00 Ramiro 862554 [facility]op [facility] Medicin e 2021 2021 Christi Diamond AOSM [place] - Ortho [id number] 8 Jennifer 00:00:00 00:00:00 Lindy, 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 [phone] 2021-11-24 2021-11-24 Outpatient FOG_Patel_A AOSM AOSM 633 Jennifer 00:00:00 00:00:00 Ramiro 959935 Orthop e dic Sports Medicin e 2021-11-21 2021-11-21 Refill Dadabhoy, 1.2.840.1 [id number] 2099 994473 Methodi 00:00:00 00:00:[address] Hashim 3.430.2.7 Hospit a .3.306422 l .8 2021-11-21 2021-11-21 Refill Dadabhoy, 1.2.840.1 [id number] 2099759 Methodi 00:00:00 00:00:[address] Hashim 3.430.2.7 Hospit a .3.320862 l .8 2021-11-18 2021-11-18 Refill Dadabhoy, 1.2.840.1 365521095 2099616 Methodi 00:00:00 00:00:[address] Hashim 3.430.2.7 Hospit a .3.459817 l .8 2021-11-18 2021-11-18 Refill Dadabhoy, 1.2.840.1 863233331 2099616 Methodi 00:00:00 00:00:[address] Hashim 3.430.2.7 Hospit a .3.379956 l .8 2021-11-09 2021-11-09 Outpatient FOG_Patel_A AOSM AOSM 633 6722-20 Jennifer 00:00:00 00:00:00 Ramiro 035211 Orthop e dic Sports Medicin e 2021-11-09 2021-11-09 Refill Dadabhoy, 1.2.840.1 [id number] 2100 573790 Methodi 00:00:00 00:00:[address] Hashim 3.430.2.7 Hospit a .3.361362 l .8 2021-11-09 2021-11-09 Refill Dadabhoy, 1.2.840.1 [id number] 2100 718137 Methodi 00:00:00 00:00:[address] Hashim 3.430.2.7 Hospit a .3.753170 l .8 2021-11-07 2021-11-08 Inpatient EL Valentina Sherman HCATO SURG Y000 [id number] [facility] 10:05:00 16:04:[address] [place] [address] Orthope dic Hospita l 2021-11-08 2021-11-08 Outpatient FOG_Patel_A AOSM AOSM 633 6722-20 Jennifer 00:00:00 00:00:00 Ramiro 384032 Orthop e dic Sports Medicin e 2021-11-07 2021-11-07 Outpatient FOG_Patel_A AOSM AOSM 633 6722-20 Jennifer 00:00:00 00:00:00 Ramiro 957631 Orthop e dic Sports Medicin e 2021-11-07 2021-11-07 Outpatient Valentina Sherman AOSM AOSM 06b 2u64a-4 00:00:00 00:00:00 R 158-11ed-b x86-322w1m 30e62c 2021-11-07 2021-11-07 Valentina [place]ET[place] - Ortho [id number] 6 Jennifer 00:00:00 00:00:00 MD John: Bety Abarca - Orthope [address] FOG_Surgery di c [address], [place], [place] [address] , Ph. [phone] 2021-11-06 2021-11-06 Refill Dadabhoy, 1.2.840.1 [id number] 2099 692297 Methodi 00:00:00 00:00:[address] Hashim 3.430.2.7 Hospit a .3.341461 l .8 2021-11-06 2021-11-06 Refill Dadabhoy, 1.2.840.1 [id number] 2099 934339 Methodi 00:00:00 00:00:[address] Hashim 3.430.2.7 Hospit a .3.693877 l .8 2021-11-02 2021-11-02 Outpatient FOG_Patel_A AOSM AOSM 633 6722-20 Jennifer 00:00:00 00:00:00 Ramiro 185543 Orthop e dic Sports Medicin e 2021-10-30 2021-10-30 Outpatient FOG_Patel_A AOSM AOSM 633 6722-20 Jennifer 00:00:00 00:00:00 Ramiro 804758 Orthop e dic Sports Medicin e 2021-10-20 2021-10-20 Refill Dadabhoy, 1.2.840.1 [id number] 2099 205129 Methodi 00:00:00 00:00:[address] Hashim 3.430.2.7 Hospit a .3.772627 l .8 2021-10-20 2021-10-20 Refill Dadabhoy, 1.2.840.1 [id number] 2099 594670 Methodi 00:00:00 00:00:[address] Hashim 3.430.2.7 Hospit a .3.862018 l .8 2021-10-19 2021-10-19 Outpatient FOG_Patel_A AOSM AOSM 633 6722-20 Jennifer 00:00:00 00:00:00 Ramiro 975914 Orthop e dic Sports Medicin e 2021-10-19 2021-10-19 Outpatient FOG_Loftis_ AOSM AOSM 634 4081-20 Jennifer 00:00:00 00:00:00 Rupesh 896442 Ortho pe dic Sports Medicin e 2021-10-16 2021-10-16 Outpatient FOG_Patel_A AOSM AOSM 633 Jennifer 00:00:00 00:00:00 Ramiro 086337 Orthop e dic Sports Medicin e 2021-10-13 2021-10-13 Mago RAYO Velazquez 1.2.298.503 8252 4782 Univers 00:00:00 00:00:00 (Out) Walter LOGAN 350.1.13.10 it y of [facility] 4.2.7.2.686 Noe as [phone] [address] 2021-10-13 2021-10-13 Telephone Provider, [facility] 1.2.840.114 95 049602 [facility] 00:00:00 00:00:00 [facility] Db HEALTH 350.1.13.10 it y of Urgent Care [place] 4.2.7.2.686 [place] RASHI?BLEA [phone] [place] dical [address] MEDICAL OFFICE [facility] 2021-10-12 2021-10-12 Outpatient R [facility] [id number] Univers 19:40:00 20:20:30 POONAM ity [facility] 2021-10-12 2021-10-12 Urgent [facility] 1.2.840.114 [id number] 96 Univers 19:40:00 20:20:30 Care Poonam HEALTH 350.1.13.10 it y of [place] 4.2.7.2.686 Noe as RASHI?BLEA [phone] Nc dical [address] MEDICAL OFFICE [facility] 2021-10-12 2021-10-12 Outpatient FOG_Patel_A AOSM AOSM 633 Jennifer 00:00:00 00:00:00 Ramiro 046719 Orthop e dic Sports Medicin e 2021-10-11 2021-10-11 Outpatient FOG_Patel_A AOSM AOSM 633 Jennifer 00:00:00 00:00:00 Ramiro 687996 Orthop e dic Sports Medicin e 2021-10-05 2021-10-05 Outpatient Valentina Vilchis HCATO 3DAY Y00 [id number] [facility] 08:00:00 23:00:00 74 [place] Orthope dic Hospita l 2021-10-05 2021-10-05 Outpatient Valentina Sherman [facility] G00 [id number] [facility] 15:57:00 15:57:00 02 [facility] 2021-10-02 2021-10-02 Outpatient FOG_Loftis_ AOSM AOSM 634 4081-20 Jennifer 00:00:00 00:00:00 Rupesh 879127 Ortho pe dic Sports Medicin e 2021-09-27 2021-09-27 Telemedici Camabhoalysha, 1.2.840.1 [id number] 2 [id number] Methodi 14:00:00 15:37:29 ne Irfan 60588.1.[address] Hashim 3.430.2.7 Hospit a .3.359167 l .8 2021-09-27 2021-09-27 Telemedici Dadabhoy, 1.2.840.1 [id number] 2 [id number] Methodi 14:00:00 15:37:29 ne Irfan 11839.1.[address] Hashim 3.430.2.7 Hospit a .3.756458 l .8 2021-09-25 2021-09-25 Outpatient FOG_Patel_A AOSM AOSM 633 Jennifer 00:00:00 00:00:00 Ramiro 138679 Orthop e dic Sports Medicin e 2021-09-22 2021-09-22 Outpatient FOG_Patel_A AOSM AOSM 633 Jennifer 12:59:00 12:59:00 Ramiro 692454 Orthop e dic Sports Medicin e 2021-09-21 2021-09-21 Outpatient FOG_Patel_A AOSM AOSM 633 Jennifer 01:45:00 01:45:00 Ramiro 559903 Orthop e dic Sports Medicin e 2021-09-20 2021-09-20 Outpatient FOG_Patel_A AOSM AOSM 633 Jennifer 01:53:00 01:53:00 Ramiro 798608 Orthop e dic Sports Medicin e 2021-09-19 2021-09-19 Outpatient FOG_Patel_A AOSM AOSM 633 6722-20 Jennifer 02:45:00 02:45:00 Ramiro 522006 Orthop e dic Sports Medicin e 2021-09-19 2021-09-19 Outpatient Valentina Sherman AOSM AOSM 02a 10o04-2 00:00:00 00:00:00 R 7ab-11ed-a [id number] r8332i 2021-09-19 2021-09-19 Valentina R AOSM [place] - Ortho [id number] Jennifer 00:00:00 00:00:00 MD John: Bety Abarca - Orthope [address] FOG_Ofc dic [facility] Spor [facility], [place] [address] , Ph. [phone] 2021-09-18 2021-09-18 Orders Betito, 1.2.840.1 [id number] 2100 603594 Methodi 00:00:00 00:00:00 Only Irfan 32160.1.[address] Hashim 3.430.2.7 Hospit a .3.298169 l .8 2021-09-18 2021-09-18 Orders Betito 1.2.840.1 [id number] 2099 787122 Methodi 00:00:00 00:00:00 Only Irfan 30076.1.[address] Hashim 3.430.2.7 Hospit a .3.885851 l .8 2021-09-15 2021-09-15 Orders Claus 1.2.840.1 [id number] 94585 62247 Methodi 00:00:00 00:00:00 Only Rita 65569.1.[address] 3.430.2.7 Hospit a .3.677775 l .8 2021-09-15 2021-09-15 Orders Claus 1.2.840.1 [id number] 47533 48188 Methodi 00:00:00 00:00:00 Only Rita 63861.1.[address] 3.430.2.7 Hospit a .3.166571 l .8 2021-09-14 2021-09-14 Outpatient FOG_Patel_A AOSM AOSM 633 6722-20 Jennifer 01:25:00 01:25:00 Ramiro 333463 Orthop e dic Sports Medicin e 2021-09-14 2021-09-14 (TEL) STLMLC STLMLC [id number] Co mmon 00:00:00 00:00:00 Spirit - [facility] 2021-09-13 2021-09-13 OFFICE STLMLC STLMLC [id number] Co mmon 00:00:00 00:00:00 VISIT [facility] PT LEVEL 3 - [facility] 2021-09-11 2021-09-11 Patient Felippi, 1.2.840.1 [id number] 76581 67044 Methodi 00:00:00 00:00:00 Outreach Kwan 85471.1.[address] 3.430.2.7 Hospit a .3.039829 l .8 2021-09-11 2021-09-11 Patient Felippi, 1.2.840.1 [id number] 59521 Methodi 00:00:00 00:00:00 Outreach Kwan 51779.1.[address] 3.430.2.7 Hospit a .3.832623 l .8 2021-09-04 2021-09-04 Orders Dadabhoy, 1.2.840.1 [id number] 2100 789492 Methodi 00:00:00 00:00:00 Only Irfan 91582.1.[address] Hashim 3.430.2.7 Hospit a .3.454626 l .8 2021-09-04 2021-09-04 Orders Dadabhoy, 1.2.840.1 [id number] 2099 509935 Methodi 00:00:00 00:00:00 Only Irfan 90191.1.[address] [facility]im 3.430.2.7 Hospit a .3.440940 l .8 2021-09-01 2021-09-01 Emergency EM Mena, HCATO HCATO [id number] 20 [facility] 19:25:00 20:59:00 [place] 947644 [place] [facility] 2021-09-01 2021-09-01 Emergency EM FOX San [id number] 90 [facility] 19:25:00 20:59:00 Christmarlneeer 60 [place] [facility] 2021-08-29 2021-08-29 Patient Johnny, 1.2.840.1 [id number] [id number] 6881 Methodi 00:00:00 00:00:00 Outreach Olufunmi 37638.1.[address] 3.430.2.7 Hospit a .3.775253 l .8 2021-08-29 2021-08-29 Patient Johnny, 1.2.840.1 [id number] 2083 Methodi 00:00:00 00:00:00 Outreach Olufunmi 31767.1.[address] 3.430.2.7 Hospit a .3.318576 l .8 2021-08-28 2021-08-28 Telephone Carlos, 1.2.840.1 [id number] 2100 698380 Methodi 00:00:00 00:00:[address] 3.430.2.7 Hospit a .3.713197 l .8 2021-08-28 2021-08-28 Telephone Carlos 1.2.840.1 [id number] 2100 010264 Methodi 00:00:00 00:00:[address] 3.430.2.7 Hospit a .3.251104 l .8 2021-07-27 2021-07-27 Orders Dadabhoalysha, 1.2.840.1 [id number] 2100 269598 Methodi 00:00:00 00:00:00 Only Irfan 57992.1.[address] [facility]im 3.430.2.7 Hospit a .3.907033 l .8 2021-07-27 2021-07-27 Orders Dadabhoy, 1.2.840.1 [id number] 2099 971094 Methodi 00:00:00 00:00:00 Only Irfan 47886.1.[address] Hashim 3.430.2.7 Hospit a .3.945515 l .8 2021-07-10 2021-07-10 Office Betito, 1.2.840.1 [id number] 2100 624240 Methodi 15:00:00 15:59:21 Visit Irfan 96132.1.[address] Hashim 3.430.2.7 Hospit a .3.193451 l .8 2021-07-10 2021-07-10 Office Betito, 1.2.840.1 [id number] 2100 202753 Methodi 15:00:00 15:59:21 Visit Irfoctavia 08577.1.[address] Hashim 3.430.2.7 Hospit a .3.685687 l .8 2021-07-10 2021-07-10 Pepe Gonzalez, 1.2.840.1 [id number] 033930 6617 Methodi 00:00:00 00:00:00 Only Evernice 42654.1.[address] 3.430.2.7 Hospit a .3.676089 l .8 2021-07-10 2021-07-10 Travel 1.2.840.1 1.2.219.698 5926 162336 Methodi 00:00:00 00:00:[address] 3.430.2.7 0.2.7.3.698 Ho spita .3.936338 084.8 l .8 2021-07-10 2021-07-10 Pepe Gonzalez, 1.2.840.1 [id number] 555863 8614 Methodi 00:00:00 00:00:00 Only Evernice 61435.1.[address] 3.430.2.7 Hospit a .3.906652 l .8 2021-07-10 2021-07-10 Travel 1.2.840.1 1.2.679.702 8186 427922 Methodi 00:00:00 00:00:[address] 3.430.2.7 0.2.7.3.698 Ho spita .3.272752 084.8 l .8 2021-06-30 2021-06-30 Patient Garret, 1.2.840.1 63 Methodi 00:00:00 00:00:00 Outreach Roberta 49837.1.[address] 3.430.2.7 Hospit a .3.008665 l .8 2021-06-30 2021-06-30 Patient Garret, 1.2.840.1 63 Methodi 00:00:00 00:00:00 Outreach Roberta 06238.1.[address] 3.430.2.7 Hospit a .3.718116 l .8 2021-06-22 2021-06-22 Telephone Betito, 1.2.840.1 [id number] Methodi 00:00:00 00:00:[address] Hashim 3.430.2.7 Hospit a .3.168174 l .8 2021-06-22 2021-06-22 Travel 1.2.840.1 1.2.480.603 8904 617063 Methodi 00:00:00 00:00:[address] 3.430.2.7 0.2.7.3.698 Ho spita .3.564692 084.8 l .8 2021-06-22 2021-06-22 Transition MECHELLE Deutsch 1.2.840.114 929 01017 Univers 00:00:00 00:00:00 of Care Maxim PELAEZY 350.1.13.10 [place] [phone] [facility] jessica [address] 2021-06-22 2021-06-22 Telephone Betito, 1.2.840.1 [id number] Methodi 00:00:00 00:00:[address] Hashim 3.430.2.7 Hospit a .3.157901 l .8 2021-06-22 2021-06-22 Travel 1.2.840.1 1.2.239.476 3066 924034 Methodi 00:00:00 00:00:[address] 3.430.2.7 0.2.7.3.698 Ho spita .3.355918 084.8 l .8 2021-06-17 2021-06-21 Hospital GoodwinMikhail Haroon [facility] 1.2.840.11 4 [id number] Univers 22:07:00 16:30:00 Encounter Elvis Ramos [facility] 350.1.13. 10 ity of Maite Shermanarg CLEAR 4.2.7.2.686 [facility] [phone] [address] ([facility]) 2021-06-17 2021-06-21 Inpatient X MITCH SHERMAN [facility] MAT 10 [id number] Univers 22:07:00 16:30:00 SHERMANMITCH SANABRIA ity [facility] 2021-06-18 2021-06-18 Surgery [facility] 1.2.503.687 8331 9055 Univers 16:00:00 18:12:00 [facility] 350.1.13.10 it y of CLEAR 4.2.7.2.686 [facility] [phone] [address] ([facility]) 2021-06-16 2021-06-17 Emergency Wingkun, 1.2.840.1 [id number] 881 [id number] Methodi 19:44:00 00:38:00 Clifton-Dylan 14152.1.[address] Go 3.430.2.7 Hospit a .3.064579 l .8 2021-06-16 2021-06-17 Emergency Wingkun, 1.2.840.1 [id number] 669 [id number] Methodi 19:44:00 00:38:00 Clifton-Dylan 57037.1.[address] Go 3.430.2.7 Hospit a .3.975000 l .8 2021-06-15 2021-06-15 Office Alize Brenner 1.2.840.1 [id number] 502 [id number] Methodi 13:30:00 14:11:00 Visit Niels 34697.1.[address] 3.430.2.7 Hospit a .3.492457 l .8 2021-06-15 2021-06-15 Office Alize Brenner 1.2.840.1 [id number] 084 1040787 Methodi 13:30:00 14:11:00 Visit Niels 55627.1.[address] 3.430.2.7 Hospit a .3.575353 l .8 2021-06-09 2021-06-10 Emergency Kendig, 1.2.840.1 [id number] 2099 300091 Methodi 20:47:00 01:38:[address] Emmanuel 3.430.2.7 Hosp mi .3.873446 l .8 2021-06-09 2021-06-10 Emergency Kend, 1.2.840.1 [id number] 2099 275027 Methodi 20:47:00 01:38:[address] Emmanuel 3.430.2.7 Hosp mi .3.317500 l .8 2021-05-26 2021-05-26 Office Alize Brenner 1.2.840.1 [id number] 409 0511673 Methodi 11:00:00 11:11:44 Visit Niels 05133.1.[address] 3.430.2.7 Hospit a .3.505208 l .8 2021-05-26 2021-05-26 Office Alize Brenner 1.2.840.1 [id number] 262 [id number] Methodi 11:00:00 11:11:44 Visit Niels 70840.1.[address] 3.430.2.7 Hospit a .3.981623 l .8 2021-05-26 2021-05-26 Outpatient ALIZE BRENNER [facility] 2100 094524 [place] 00:00:00 00:00:[address] 2021-05-26 2021-05-26 Telephone Alize Brenner 1.2.840.1 [id number] 2 [id number] Methodi 00:00:00 00:00:[address] 3.430.2.7 Hospit a .3.904015 l .8 2021-05-26 2021-05-26 Travel 1.2.840.1 1.2.726.546 3891 868739 Methodi 00:00:00 00:00:[address] 3.430.2.7 0.2.7.3.698 Ho spita .3.327223 084.8 l .8 2021-05-26 2021-05-26 Telephone Alize Brenner 1.2.840.1 [id number] 2 [id number] Methodi 00:00:00 00:00:[address] 3.430.2.7 Hospit a .3.905120 l .8 2021-05-26 2021-05-26 Travel 1.2.840.1 1.2.256.228 1698 597331 Methodi 00:00:00 00:00:[address] 3.430.2.7 0.2.7.3.698 Ho spita .3.501970 084.8 l .8 2021-05-24 2021-05-24 Pepe Sherwood, 1.2.840.1 [id number] 955689 8834 Methodi 00:00:00 00:00:00 Only Rosalia 03320.1.[address] 3.430.2.7 Hospit a .3.418536 l .8 2021-05-24 2021-05-24 Pepe Sherwood 1.2.840.1 014020200 779955 1683 Methodi 00:00:00 00:00:00 Only Rosalia 40221.1.[address] 3.430.2.7 Hospit a .3.323162 l .8 2021-05-15 2021-05-15 Treatment CamDeuce jeter 1.2.840.1 [id number] Methodi 10:30:00 11:30:00 Jeremi Gonzalez 39555.1. [address] 3.430.2.7 Hospit a .3.808569 l .8 2021-05-15 2021-05-15 Treatment Deuce Valentino 1.2.840.1 [id number] Methodi 10:30:00 11:30:00 Jeremi Gonzalez 27023.1. [address] 3.430.2.7 Hospit a .3.500280 l .8 2021-05-15 2021-05-15 Travel 1.2.840.1 1.2.940.967 1786 157038 Methodi 00:00:00 00:00:[address] 3.430.2.7 0.2.7.3.698 Ho spita .3.863382 084.8 l .8 2021-05-15 2021-05-15 Travel 1.2.840.1 1.2.436.798 8452 805263 Methodi 00:00:00 00:00:[address] 3.430.2.7 0.2.7.3.698 Ho spita .3.339578 084.8 l .8 2021-05-08 2021-05-08 Treatment Deuce Valentino 1.2.840.1 [id number] Methodi 11:30:00 12:30:00 Ozzy Rios 08641.1.[address] 3.430.2.7 Hospit a .3.228416 l .8 2021-05-08 2021-05-08 Treatment Deuce Valentino 1.2.840.1 791193512 [id number] Methodi 11:30:00 12:30:00 Oz[address] Rios 40979.1.[address] 3.430.2.7 Hospit a .3.603553 l .8 2021-05-08 2021-05-08 Travel 1.2.840.1 1.2.269.369 2033 841902 Methodi 00:00:00 00:00:[address] 3.430.2.7 0.2.7.3.698 Ho spita .3.213462 084.8 l .8 2021-05-08 2021-05-08 Plan of 1.2.840.1 [id number] 229256 2811 Methodi 00:00:00 00:00:[address] Documentat 3.430.2.7 Hos amadou ion .3.801972 l .8 2021-05-08 2021-05-08 Travel 1.2.840.1 1.2.556.181 6028 669938 Methodi 00:00:00 00:00:[address] 3.430.2.7 0.2.7.3.698 Ho spita .3.069504 084.8 l .8 2021-05-08 2021-05-08 Plan of 1.2.840.1 387102286 796345 3187 Methodi 00:00:00 00:00:[address] Documentat 3.430.2.7 Hos amadou ion .3.384960 l .8 2021-05-03 2021-05-03 Documentat Rios, 1.2.840.1 [id number] 514 [id number] Methodi 00:00:00 00:00:[address] ion Ozzy 61661.1.[address] 3.430.2.7 Hospit a .3.428999 l .8 2021-05-03 2021-05-03 Documentat Rios, 1.2.840.1 164258802 818 8562232 Methodi 00:00:00 00:00:[address] ion Ozzy 91758.1.[address] 3.430.2.7 Hospit a .3.881216 l .8 2021-04-28 2021-04-28 Treatment Deuce Valentino 1.2.840.1 227086859 [id number] Methodi 11:00:00 12:00:00 Kayley Devlin 79382.1.[address] 3.430.2.7 Hospit a .3.890918 l .8 2021-04-28 2021-04-28 Treatment Deuce Valentino 1.2.840.1 141910524 [id number] Methodi 11:00:00 12:00:00 Kayley Devlin 21438.1.[address] 3.430.2.7 Hospit a .3.608136 l .8 2021-04-26 2021-04-26 Telephone Carlos 1.2.840.1 [id number] 2100 149447 Methodi 00:00:00 00:00:[address] 3.430.2.7 Hospit a .3.001848 l .8 2021-04-26 2021-04-26 José Miguel Gonzalez 1.2.840.1 [id number] 2099 [id number] Methodi 00:00:00 00:00:[address] 3.430.2.7 Hospit a .3.379277 l .8 2021-04-25 2021-04-25 Treatment Deuce Valentino 1.2.840.1 [id number] Methodi 10:30:00 11:30:00 [address]43.1.[address] 3.430.2.7 Hospit a .3.331030 l .8 2021-04-25 2021-04-25 Treatment Deuce Valentinohelen 1.2.840.1 [id number] Methodi 10:30:00 11:30:00 Fabrici[address]gin[address]Allison julian [address]72.1.[address] 3.430.2.7 Hospit a .3.767791 l .8 2021-04-25 2021-04-25 Travel 1.2.840.1 1.2.550.244 9853 928122 Methodi 00:00:00 00:00:[address] 3.430.2.7 0.2.7.3.698 Ho spita .3.613944 084.8 l .8 2021-04-25 2021-04-25 Travel 1.2.840.1 1.2.691.671 5303 510819 Methodi 00:00:00 00:00:[address] 3.430.2.7 0.2.7.3.698 Ho spita .3.149025 084.8 l .8 2021-04-21 2021-04-21 Treatment Deuce Valentino 1.2.840.1 [id number] Methodi 10:30:00 11:30:00 Rashaun Qiuelle 08657.1.[address] 3.430.2.7 Hospit a .3.484219 l .8 2021-04-21 2021-04-21 Travel 1.2.840.1 1.2.952.658 5975 630471 Methodi 00:00:00 00:00:[address] 3.430.2.7 0.2.7.3.698 Ho spita .3.689620 084.8 l .8 2021-04-14 2021-04-14 Treatment Deuce Valentino 1.2.840.1 [id number] Methodi 10:30:00 11:30:00 Rasha[address] 3.430.2.7 Hospit a .3.548109 l .8 2021-04-14 2021-04-14 Travel 1.2.840.1 1.2.543.581 7690 779996 Methodi 00:00:00 00:00:[address] 3.430.2.7 0.2.7.3.698 Ho spita .3.553168 084.8 l .8 2021-04-11 2021-04-11 [facility] Betito, 1.2.840.1 [id number] 2099 194154 Methodi 11:20:00 12:12:05 Visit Deuce 11754.1.[address] Hashim 3.430.2.7 Hospit a .3.507491 l .8 2021-04-11 2021-04-11 Treatment Deuce Valentino 1.2.840.1 [id number] Methodi 10:00:00 11:00:00 Kayley Devlin 56475.1.[address] 3.430.2.7 Hospit a .3.639877 l .8 2021-04-11 2021-04-11 Travel 1.2.840.1 1.2.984.429 1221 907491 Methodi 00:00:00 00:00:[address] 3.430.2.7 0.2.7.3.698 Ho spita .3.151626 084.8 l .8 2021-04-07 2021-04-07 Documentat [facility] 1.2.840.1 [id number] Methodi 00:00:00 00:00:00 Allison luna 68394.1.1 719 s t 3.430.2.7 Hospit a .3.805192 l .8 2021-04-06 2021-04-06 Procedure Betito, 1.2.840.1 [id number] 21 [id number] Methodi 14:40:00 15:47:26 visit Deuce 57273.1.[address] Hashim 3.430.2.7 Hospit a .3.667091 l .8 2021-04-06 2021-04-06 Travel 1.2.840.1 1.2.838.592 0573 365891 Methodi 00:00:00 00:00:[address] 3.430.2.7 0.2.7.3.698 Ho spita .3.266783 084.8 l .8 2021-04-04 2021-04-04 Documentat Jernsletten 1.2.840.1 [id number] Methodi 00:00:00 00:00:00 jeremy Allison 68014.1.1 148 s t 3.430.2.7 Hospit a .3.272501 l .8 2021-04-02 2021-04-02 Orders Betito, 1.2.840.1 [id number] 2100 629501 Methodi 00:00:00 00:00:00 Only Irfoctavia 13079.1.[address] Hashim 3.430.2.7 Hospit a .3.555254 l .8 2021-03-31 2021-03-31 Treatment Deuce Valentino 1.2.840.1 [id number] Methodi 11:00:00 12:00:00 Kayley Devlin 50240.1.[address] 3.430.2.7 Hospit a .3.714088 l .8 2021-03-31 2021-03-31 Travel 1.2.840.1 1.2.347.369 2175 184142 Methodi 00:00:00 00:00:[address] 3.430.2.7 0.2.7.3.698 Ho spita .3.043568 084.8 l .8 2021-03-29 2021-03-29 Office Betito 1.2.840.1 [id number] 2100 064929 Methodi 11:20:00 12:04:24 Visit Irfoctavia 93108.1.[address] Hashim 3.430.2.7 Hospit a .3.037222 l .8 2021-03-29 2021-03-29 [facility] 74445 31224 [place] 00:00:00 00:00:00 IRFO[address]IA [address] 2021-03-28 2021-03-28 Treatment Deuce Valentino 1.2.840.1 [id number] Methodi 11:30:00 12:30:00 Fabriciovirginiaiesha Allison [address].1.[address] 3.430.2.7 Hospit a .3.166948 l .8 2021-03-28 2021-03-28 Travel 1.2.840.1 1.2.328.210 1600 649803 Methodi 00:00:00 00:00:[address] 3.430.2.7 0.2.7.3.698 Ho spita .3.448953 084.8 l .8 2021-03-28 2021-03-28 Patient Eb, 1.2.840.1 [id number] Methodi 00:00:00 00:00:00 [place] [address] 3.430.2.7 Hospit a .3.232663 l .8 2021-03-24 2021-03-24 Treatment Deuce Valentinohelen 1.2.840.1 [id number] Methodi 11:30:00 12:30:[address] 3.430.2.7 Hospit a .3.633878 l .8 2021-03-23 2021-03-23 Travel 1.2.840.1 1.2.617.374 6870 393914 Methodi 00:00:00 00:00:[address] 3.430.2.7 0.2.7.3.698 Ho spita .3.515671 084.8 l .8 2021-03-20 2021-03-20 Evaluation Deuce Valentino Elsy 1.2.840. 1 [id number] Methodi 11:30:00 12:30:00 Allison Qiu 26733.1.[address] 3.430.2.7 Hospit a .3.131856 l .8 2021-03-20 2021-03-20 Plan of 1.2.840.1 [id number] 011542 9682 Methodi 00:00:00 00:00:[address] Documentat 3.430.2.7 Hos amadou ion .3.236777 l .8 2021-03-202021-03-20 Travel 1.2.840.1 1.2.002.560 4433 600541 Methodi 00:00:00 00:00:[address] 3.430.2.7 0.2.7.3.698 Ho spita .3.387601 084.8 l .8 2021-03-13 2021-03-13 Travel 1.2.840.1 1.2.516.763 4579 192558 Methodi 00:00:00 00:00:[address] 3.430.2.7 0.2.7.3.698 Ho spita .3.036628 084.8 l .8 2021-03-08 2021-03-08 Orders Dadabhoy, 1.2.840.1 [id number] 2099 926056 Methodi 00:00:00 00:00:00 Only Irfan 93928.1.[address] Hashim 3.430.2.7 Hospit a .3.764019 l .8 2021-03-07 2021-03-07 Refill Aragon, 1.2.840.1 [id number] 2099 183488 Methodi 00:00:00 00:00:00 Jeana 86307.1.1 780 s t 3.430.2.7 Hospit a .3.954663 l .8 2021-03-02 2021-03-02 Refill Aragon, 1.2.840.1 [id number] 2099 078791 Methodi 00:00:00 00:00:00 Jeana 47595.1.1 152 s t 3.430.2.7 Hospit a .3.068235 l .8 2021-02-28 2021-02-28 Refill Dadabhoy, 1.2.840.1 [id number] 2099 627517 Methodi 00:00:00 00:00:[address] Hashim 3.430.2.7 Hospit a .3.045126 l .8 2021-02-14 2021-02-14 Travel 1.2.840.1 1.2.757.352 6000 858444 Methodi 00:00:00 00:00:[address] 3.430.2.7 0.2.7.3.698 Ho spita .3.500380 084.8 l .8 2021-01-31 2021-01-31 Office Betito, 1.2.840.1 [id number] 2099 937715 Methodi 11:20:00 12:33:36 Visit Irfan 03469.1.[address] Hashim 3.430.2.7 Hospit a .3.526833 l .8 2021-01-31 2021-01-31 Travel 1.2.840.1 1.2.142.059 7134 948879 Methodi 00:00:00 00:00:[address] 3.430.2.7 0.2.7.3.698 Ho spita .3.136725 084.8 l .8 2021-01-11 2021-01-11 Outpatient GRACEO, [facility] [id number] 290 [place] 00:00:00 00:00:00 ALFREDO 589 Method i 2020-12-12 2020-12-12 Outpatient ADELITA, [facility] [id number] 4589 [place] 00:00:00 00:00:00 ECHO 668 Method i 2020-12-09 2020-12-09 Outpatient [facility] [id number] [place] 00:00:00 00:00:00 601 Method i 2020 2020 Outpatient BETITO, [facility] [id number] [id number] [place] 00:00:00 00:00:00 IRFAN 892 Method i 2020-11-23 2020-11-23 Outpatient [facility] [id number] 619 [place] 00:00:00 00:00:00 955 Method i 2020-11-01 2020-11-01 Outpatient MAURAHOAlysha, [facility] [id number] [place] 00:00:00 00:00:00 IRFAN 568 Method i 2020-09-11 2020-09-24 Inpatient SYDNEE DIAS [facility] 014 [id number] 09830 [place] 00:00:00 00:00:00 681 Method i 2020-09-03 2020-09-11 Inpatient JONATHAN, [facility] 064 [id number] 87 [place] 00:00:00 00:00:00 AKIL 221 Method i 2020-08-29 2020-08-29 Outpatient BETITO, [facility] [id number] [place] 00:00:00 00:00:00 IRFAN 858 Method i 2020-08-15 2020-08-15 Outpatient CHRISSY, [facility] [id number] [id number] [place] 00:00:00 00:00:00 MALIA 535 Method i 2020-07-04 2020-07-04 Outpatient KAT, [facility] [id number] [place] 00:00:00 00:00:00 STORM 876 Method i 2020-06-24 2020-06-24 Outpatient ARTEM GARDINER [facility] 2100 [id number] [place] 00:00:00 00:00:00 415 Method i 2020-06-23 2020-06-23 Outpatient ZORAIDA, [facility] [id number] [place] 00:00:00 00:00:00 MAURICE 249 Method i 2020-06-22 2020-06-22 Outpatient KRISH, [facility] [id number] 863 [place] 00:00:00 00:00:00 OMER 382 Method i 2020-06-21 2020-06-21 Outpatient GILDARDO, [facility] [id number] [place] 00:00:00 00:00:00 RIVAS 026 Method i 2020-06-20 2020-06-20 Outpatient KAT, [facility] [id number] [place] 00:00:00 00:00:00 STORM 141 Method i 2020-06-20 2020-06-20 Outpatient ABDIFATAH AFAF [facility] 2100 [id number] [place] 00:00:00 00:00:[address] 2020-06-17 2020-06-17 Outpatient ABDIFATAH AFAF [facility] 2100 [id number] [place] 00:00:00 00:00:[address] 2020-06-16 2020-06-16 Outpatient EDKENYAKEN, [facility] [id number] [place] 00:00:00 00:00:00 MAURICE [address] 2020-06-15 2020-06-16 Outpatient KRISH, [facility] [id number] [place] 00:00:00 00:00:00 OMER [address] 2020-06-14 2020-06-14 Outpatient GILDARDO, [facility] [id number] 274 [place] 00:00:00 00:00:00 ROB [address] 2020-06-13 2020-06-13 Outpatient KAT, [facility] [id number] [place] 00:00:00 00:00:00 STORM [address] 2020-06-13 2020-06-13 Outpatient GARDINER, [facility] [id number] [id number] [place] 00:00:00 00:00:[address] 2020-06-10 2020-06-10 Outpatient GARDINER, [facility] 2100 [id number] [place] 00:00:00 00:00:[address] 2020-06-08 2020-06-08 Outpatient ROXANN, [facility] [id number] [place] 00:00:00 00:00:00 JOSETTE [address] 2020-06-06 2020-06-06 Outpatient GARDINER, [facility] 2100 [id number] [place] 00:00:00 00:00:[address] 2020-06-02 2020-06-02 Outpatient EDKENYAKEN, [facility] [id number] [place] 00:00:00 00:00:00 MAURICE [address] 2020-06-01 2020-06-01 Outpatient KRISH, [facility] [id number] [place] 00:00:00 00:00:00 OMER [address] 2020-05-31 2020-05-31 Outpatient GILDARDO, [facility] [id number] [place] 00:00:00 00:00:00 ROB [address] 2020-05-30 2020-05-30 Outpatient GARDINER, [facility] 2100 [id number] [place] 00:00:00 00:00:[address] 2020-05-27 2020-05-27 Outpatient ABDIFATAH, [facility] [id number] [id number] [place] 00:00:00 00:00:[address] 2020-05-26 2020-05-26 Outpatient EDEIKEN, [facility] [id number] [place] 00:00:00 00:00:00 MAURICE [address] 2020-05-25 2020-05-25 Outpatient KRISH, [facility] [id number] [place] 00:00:00 00:00:00 OMER [address] 2020-05-24 2020-05-24 Outpatient MARQUEZKO, [facility] [id number] [place] 00:00:00 00:00:00 RIVAS 030 Method i 2020-05-23 2020-05-23 Outpatient KAT, [facility] [id number] [place] 00:00:00 00:00:00 STORM 557 Method i 2020-05-23 2020-05-23 Outpatient ABDIFATAH, [facility] 2100 [id number] [place] 00:00:00 00:00:[address] 2020-05-20 2020-05-20 Outpatient EDKENYAKEN, [facility] [id number] [place] 00:00:00 00:00:00 MAURICE [address] 2020-05-19 2020-05-19 Outpatient EDEIKEN, [facility] [id number] [place] 00:00:00 00:00:00 MAURICE 939 Method i 2020-05-18 2020-05-18 Outpatient KRISH, [facility] [id number] [place] 00:00:00 00:00:00 OMER 917 Method i 2020-05-17 2020-05-17 Outpatient GILDARDO, [facility] [id number] [place] 00:00:00 00:00:00 RIVAS 457 Method i 2020-05-16 2020-05-16 Outpatient ROXANN, [facility] [id number] [place] 00:00:00 00:00:00 JOSETTE [address] 2020-05-16 2020-05-16 Outpatient [facility] [id number] [place] 00:00:00 00:00:[address] 2020-05-13 2020-05-13 Outpatient GARDINER, [facility] [id number] [id number] [place] 00:00:00 00:00:[address] 2020-05-12 2020-05-12 Outpatient EDEIKEN, [facility] [id number] [place] 00:00:00 00:00:00 MAURICE [address] 2020-05-11 2020-05-11 Outpatient ROXANN, [facility] [id number] [place] 00:00:00 00:00:00 JOSETTE [address] 2020-05-10 2020-05-10 Outpatient MARQUEZKO, [facility] [id number] [place] 00:00:00 00:00:00 RIVAS [address] 2020-05-09 2020-05-09 Outpatient GARDINER, A[facility] [id number] [id number] [place] 00:00:00 00:00:[address] 2020-05-06 2020-05-06 Outpatient GARDINER, A[facility] [id number] [id number] [place] 00:00:00 00:00:[address] 2020-05-05 2020-05-05 Outpatient EDKENYAKEN, [facility] [id number] [place] 00:00:00 00:00:00 MAURICE [address] 2020-05-04 2020-05-04 Outpatient KRISH, [facility] [id number] [place] 00:00:00 00:00:00 OMER [address] 2020-05-03 2020-05-03 Outpatient MARQUEZKO, [facility] [id number] [place] 00:00:00 00:00:00 RIVAS [address] 2020-05-02 2020-05-02 Outpatient GARDINER, A[facility] 2100 [id number] [place] 00:00:00 00:00:[address] 2020-04-29 2020-04-29 Outpatient GARDINER, AFA[facility] 2100 [id number] [place] 00:00:00 00:00:[address] 2020-04-28 2020-04-28 Outpatient NURKO, [facility] [id number] [place] 00:00:00 00:00:00 RIVAS [address] 2020-04-272020-04-27 Outpatient EDEIKEN, [facility] [id number] [place] 00:00:00 00:00:00 MAURICE [address] 2020-04-26 2020-04-26 Outpatient GILDARDO, [facility] [id number] [place] 00:00:00 00:00:00 RIVAS 183 Method i 2020-04-25 2020-04-25 Outpatient KAT, [facility] [id number] [place] 00:00:00 00:00:00 STORM [address] 2020-04-23 2020-04-23 Outpatient [facility] [id number] [place] 00:00:00 00:00:00 909 Method i 2020-04-12 2020-04-12 Outpatient EDANDRIY, [facility] 021 [id number] [place] 00:00:00 00:00:00 MAURICE 292 Method i 2020-04-07 2020-04-07 Outpatient EDANDRIY, [facility] [id number] [place] 00:00:00 00:00:00 MAURICE [address] 2020-04-07 2020-04-07 Outpatient KRISH, [facility] [id number] [place] 00:00:00 00:00:00 OMER 096 Method i 2020-04-06 2020-04-06 Outpatient Cerana_M VFP VFP [id number] [facility] 03:42:00 03:42:00 41698 Family Practic e 2020-04-06 2020-04-06 Outpatient DADABHOY, [facility] [id number] [place] 00:00:00 00:00:00 DEUCE [address] 2020-04-06 2020-04-06 Outpatient KRISH, [facility] [id number] [place] 00:00:00 00:00:00 OMER 340 Method i 2020-04-04 2020-04-04 Outpatient KAT, [facility] [id number] [place] 00:00:00 00:00:00 STORM 909 Method i 2020-03-28 2020-03-28 Outpatient ROXANN, [facility] [id number] [place] 00:00:00 00:00:00 JOSETTE 101 Method i 2020-03-28 2020-03-28 Outpatient KAT, [facility] [id number] [place] 00:00:00 00:00:00 STORM [address] 2020-03-17 2020-03-17 Outpatient EDEIKEN, [facility] [id number] [place] 00:00:00 00:00:00 MAURICE [address] 2020-03-16 2020-03-16 Outpatient KRONFOL, [facility] [id number] [place] 00:00:00 00:00:00 ZIAD [address] 2020-03-15 2020-03-15 Outpatient NURKO, [facility] [id number] [place] 00:00:00 00:00:00 RIVAS [address] 2020-03-14 2020-03-14 Outpatient ROXANN, [facility] [id number] [place] 00:00:00 00:00:00 JOSETTE [address] 2020-03-14 2020-03-14 Outpatient KAT, [facility] [id number] [place] 00:00:00 00:00:00 STORM 545 Method i 2020-03-11 2020-03-11 Outpatient GARDINER, A[facility] [id number] [id number] [place] 00:00:00 00:00:[address] 2020-03-10 2020-03-10 Outpatient EDEIKEN, [facility] [id number] [place] 00:00:00 00:00:00 MAURICE [address] 2020-03-09 2020-03-09 Outpatient KRONFOL, [facility] [id number] [place] 00:00:00 00:00:00 ZIAD [address] 2020-03-08 2020-03-08 Outpatient NURKO, [facility] [id number] [place] 00:00:00 00:00:00 RIVAS [address] 2020-03-07 2020-03-07 Outpatient ROXANN, [facility] [id number] [place] 00:00:00 00:00:00 JOSETTE [address] 2020-03-03 2020-03-03 Outpatient EDEIKEN, [facility] [id number] [place] 00:00:00 00:00:00 MAURICE [address] 2020-03-02 2020-03-02 Outpatient ROXANN, [facility] [id number] [place] 00:00:00 00:00:00 JOSETTE [address] 2020-03-01 2020-03-01 Outpatient NURKO, [facility] [id number] [place] 00:00:00 00:00:00 RIVAS [address] 2020-02-29 2020-02-29 Outpatient ROXANN, [facility] [id number] 1058 [place] 00:00:00 00:00:00 JOSETTE [address] 2020-02-25 2020-02-25 Outpatient EDEIKEN, [facility] [id number] [place] 00:00:00 00:00:00 MAURICE [address] 2020-02-24 2020-02-24 Outpatient KRONFOL, [facility] [id number] [place] 00:00:00 00:00:00 ZIAD [address] 2020-02-24 2020-02-24 Outpatient DADABHOY, [facility] [id number] [place] 00:00:00 00:00:00 IRFAN [address] 2020-02-23 2020-02-23 Outpatient NURKO, [facility] [id number] [place] 00:00:00 00:00:00 RIVAS [address] 2020-02-22 2020-02-22 Outpatient GARDINER, [facility] [id number] [place] 00:00:00 00:00:[address] 2020-02-19 2020-02-19 Outpatient GARDINER, A[facility] [id number] [id number] [place] 00:00:00 00:00:[address] 2020-02-18 2020-02-18 Outpatient EDEIKEN, [facility] [id number] [place] 00:00:00 00:00:00 MAURICE [address] 2020-02-17 2020-02-17 Outpatient KRONFOL, [facility] [id number] [place] 00:00:00 00:00:00 ZIAD [address] 2020-02-16 2020-02-16 Outpatient NURKO, [facility] [id number] [place] 00:00:00 00:00:00 RIVAS [address] 2020-02-15 2020-02-15 Outpatient GARDINER, [facility] [id number] [place] 00:00:00 00:00:[address] 2020-02-12 2020-02-12 Outpatient GARDINER, [facility] [id number] [id number] [place] 00:00:00 00:00:[address] 2020-02-11 2020-02-11 Outpatient EDEIKEN, [facility] [id number] [place] 00:00:00 00:00:00 MAURICE [address] 2020-02-10 2020-02-10 Outpatient KRONFOL, [facility] [id number] [place] 00:00:00 00:00:00 ANIYAHAD [address] 2020-02-09 2020-02-09 Outpatient KAT, [facility] [id number] [place] 00:00:00 00:00:00 STORM [address] 2020-02-08 2020-02-08 Outpatient NURKO, [facility] [id number] [place] 00:00:00 00:00:00 ROB [address] 2020-02-05 2020-02-05 Outpatient GARDINER, [facility] [id number] [place] 00:00:00 00:00:[address] 2020-02-04 2020-02-04 Outpatient EDEIKEN, [facility] [id number] [place] 00:00:00 00:00:00 MAURICE [address] 2020-02-03 2020-02-03 Outpatient EDEIKEN, [facility] [id number] [place] 00:00:00 00:00:00 MAURICE [address] 2020-01-25 2020-01-25 Outpatient KAT, [facility] [id number] [place] 00:00:00 00:00:00 STORM [address] 2020-01-18 2020-01-18 Outpatient KRISH, [facility] [id number] [place] 00:00:00 00:00:00 OMER [address] 2020-01-13 2020-01-13 Outpatient KRISH, [facility] [id number] [place] 00:00:00 00:00:00 OMER [address] 2020-01-11 2020-01-11 Outpatient KAT, [facility] [id number] [place] 00:00:00 00:00:00 STORM [address] 2019-12-30 2019-12-30 Outpatient KAT, [place] [address] [id number] [place] 00:00:00 00:00:00 STORM [address] 2019-12-28 2019-12-28 Outpatient KAT, [facility] [id number] [place] 00:00:00 00:00:00 STORM [address] 2019-12-28 2019-12-28 Outpatient KAT, [facility] [id number] 6231 [place] 00:00:00 00:00:00 STORM [address] 2019-12-15 2019-12-15 Outpatient DADABHOY, [facility] [id number] [place] 00:00:00 00:00:00 IRFAN [address] 2019-12-14 2019-12-14 Outpatient KAT, [facility] [id number] [place] 00:00:00 00:00:00 STORM [address] 2019-11-30 2019-11-30 Outpatient KAT, [facility] [id number] [place] 00:00:00 00:00:00 STORM [address] 2019-11-30 2019-11-30 Outpatient KAT, [facility] [id number] 1035 [place] 00:00:00 00:00:00 STORM [address] 2019-11-18 2019-11-18 Outpatient DADABHOY, [facility] [id number] [place] 00:00:00 00:00:00 IRFAN [address] 2019-11-16 2019-11-16 Outpatient KAT, [facility] [id number] [place] 00:00:00 00:00:00 STORM [address] 2019-11-12 2019-11-12 Outpatient KAT, [facility] [id number] [place] 00:00:00 00:00:00 STORM [address] 2019-11-02 2019-11-02 Outpatient KAT, [facility] [id number] [place] 00:00:00 00:00:00 STORM [address] 2019-10-30 2019-10-30 Outpatient KAT, [facility] [id number] [place] 00:00:00 00:00:00 STORM [address] 2019-10-30 2019-10-30 Outpatient KAT [facility] [id number] [place] 00:00:00 00:00:00 STORM 865 [facility] 2019-10-26 2019-10-26 Outpatient KAT [facility] [id number] [place] 00:00:00 00:00:00 STORM 098 [facility] 2017-06-27 2017-07-27 [facility] [id number] [place] 12:09:00 04:59:00 r Gabriel 19 l [facility] 2017-07-10 2017-07-11 [facility] 4572 [id number] [place] 14:51:00 04:59:00 r Gabriel 06 l [facility] 2017-06-03 2017-07-03 [facility] 4572 [id number] [place] 18:06:00 04:59:00 r Gabriel 18 l [facility] 2017-06-17 2017-06-18 [facility] [id number] [place] 14:32:00 04:59:00 r Gabriel 05 l [facility] 2017-06-03 2017-06-04 [facility] 4572 [id number] [place] 20:01:00 04:59:00 r Gabriel 04 l [facility] 2017-05-22 2017-05-22 [facility] - [id number] [place] 00:00:00 00:00:00 Zoran Ann MD: [id number] [facility] [address], [place] [address] , Ph. 2017-05-03 2017-05-04 [facility] [id number] [place] 18:23:00 01:10:00 Surgery r Gabriel 02 l [facility] 2017-03-28 2017-04-27 [facility] [id number] [place] 17:21:00 05:59:00 r Gabriel 17 l [facility] 2017-04-25 2017-04-26 [facility] [id number] [place] 14:33:00 05:59:00 r Gabriel 03 l [facility] 2017-04-18 2017-04-19 Outpatient [facility] [id number] [place] 11:00:00 05:59:00 r Gabriel 46 l [facility] 2017-03-28 2017-03-28 Outpatient [facility] [id number] [facility] 11:21:00 11:21:00 2017-02-26 2017-02-26 [place] [facility] [place] - [id number] [place] 00:00:00 00:00:00 Zoran Ann: [facility], [facility] [address], [place] [address] , Ph. 2016-11-22 2016-12-22 Wound Care [facility] 4572 [id number] [place] 15:55:00 04:59:00 r Gabriel 16 l [facility] 2016-11-23 2016-11-23 Joseph Medina [facility] [place] - [id number] [place] 00:00:00 00:00:00 Zoran Ann: 9055 [facility], [facility] [address], [place] [address] , Ph. 2016-10-11 2016-11-10 Wound Care [facility] 4572 [id number] [place] 14:30:00 04:59:00 r Gabriel 15 l [facility] 2016-09-06 2016-10-06 Wound Care [facility] 4572 [id number] [place] 14:53:00 04:59:00 r Gabriel 14 l [facility] 2016-08-02 2016-09-01 Wound Care [facility] 4572 [id number] [place] 17:02:00 04:59:00 r Gabriel 13 l [facility] 2016-08-23 2016-08-23 Joseph H [facility] [place] - [id number] [place] 00:00:00 00:00:00 Zoran Ann y MD: [id number] [facility] [address], [address], [place] [address] , Ph. 2016-06-28 2016-07-28 Wound Care nullFlavo [facility] 4572 [id number] Memoria 15:44:00 04:59:00 r [place] 12 l [facility] 2016-07-26 2016-07-26 Joseph Medina [facility]FP [place] - [id number] V illage 00:00:00 00:00:00 Zoran Ann y MD: [address] [facility] [address], [address], [place] [address] , Ph. 2016-06-26 2016-06-26 Joseph Medina [facility]FP [place] - [id number] V illage 00:00:00 00:00:00 Zoran Ann MD: [address] [facility] [address], [address], [place] [address] , Ph. 2016-05-24 2016-06-23 Wound Care nullFlavo [place] [id number] Memoria 15:11:00 04:59:00 r Gabriel 11 l [facility] 2016-06-14 2016-06-15 Outpatient nullFlavo [place] [id number] Memoria 16:29:00 04:59:00 r Gabriel 03 l [facility] 2016-04-24 2016-05-24 Wound Care nullFlavo [place] [id number] Memoria 14:30:00 04:59:00 r Gabriel 10 l [facility] 2016-04-24 2016-04-24 Joseph H [facility]FP [place] - [id number] V illage 00:00:00 00:00:00 Zoran Ann: [address] [facility] [address], [address], [place] [address] , Ph. 2016-03-16 2016-04-15 Wound Care nullFlavo [place] [id number] Memoria 16:00:00 05:59:00 r Gabriel 09 l [facility] 2016-03-15 2016-03-15 Joseph Medina [facility] [place] - [id number] V illage 00:00:00 00:00:00 Zoran Ann: [address] [facility] [address], [address], [place] [address] , Ph. 2016-02-15 2016-02-15 Joseph Carol VF [place] - [id number] V illage 00:00:00 00:00:00 Zoran Ann y : 9055 Practic [facility] [address], [place] [address] , Ph. 2016-01-13 2016-02-12 Wound Care [facility] 4572 [id number] Memoria 17:30:00 05:59:00 r [place] 07 l [facility] 2016-01-30 2016-01-30 Joseph H [facility]FP [place] - [id number] V illage 00:00:00 00:00:00 Zoran Ann: 9055 [facility] Practic Kaylee [facility], [address], [place] [address] , Ph. 2015-11-11 2015-12-11 Wound Care [facility] 4572 [id number] Memoria 17:21:00 04:59:00 r [place] 06 l [facility] 2015-09-23 2015-10-23 Wound Care [facility]Flavo [facility] 4572 [id number] Memoria 16:58:00 04:59:00 r [place] 05 l [facility] 2015-10-21 2015-10-22 Outpatient [facility]Fl[facility] 4572 [id number] Memoria 05:00:00 04:59:00 r [place] 32 l [facility] 2015-10-20 2015-10-20 [facility] [place] - [id number] V illage 00:00:00 00:00:00 Zoran Ann: 9055 Practic Kaylee [facility], [address], [place] [address] , Ph. 2015-08-16 2015-09-15 Wound Care [facility] 4572 [id number] Memoria 16:50:00 04:59:00 r [place] 04 l [facility] 2015-07-15 2015-08-14 Wound Care nullFlavo [facility] 4572 [id number] Memoria 19:10:00 04:59:00 r [place] 03 l [facility] 2015-06-13 2015-07-13 Wound Care [facility]Fl[facility] 4572 [id number] Memoria 18:56:00 04:59:00 r [place] 02 l [facility] 2015-04-25 2015-05-25 Wound Care [facility]Flavo [facility] 4572 [id number] Memoria 18:57:00 04:59:00 r [place] 01 l [facility] 2015-03-17 2015-04-16 Wound Care nullFlavo [facility] 4572 [id number] Memoria 14:00:00 05:59:00 r [place] 00 l [facility] 2015-02-15 2015-03-17 Wound Care [facility]Flavo [facility] 4572 [id number] Memoria 17:40:00 05:59:00 r [place] 00 l [facility] 2015-02-22 2015-02-23 EC nullFlavo [facility] [id number] Memoria 23:10:00 01:23:00 Emergency r Gabriel 01 l [facility] 2015-02-16 2015-02-19 Inpatient nullFlavo [facility] 33524 [id number] Memoria 16:42:00 17:48:00 r [place] 49 l [facility] 2014-09-30 2014-09-30 ESTABLISHE nullFlavo [place] [id number] af4-4 Memoria 14:45:00 14:45:00 D PT: Lt r Branch [id number] l Ft Wound Podiatry [id number] [facility] [place] 72958w 2013-07-01 2013-07-01 diabetic nullFlavo [place] [id number] 7-1 Memoria 19:20:00 19:20:00 shoes r Branch [id number] l Podiatry [id number]-dcfcfa Herm [place] 77523s 2013-07-01 2013-07-01 diabetic nullFlavo [place] [id number] 2-c Memoria 19:20:00 19:20:00 shoes r Branch [id number] l Podiatry [id number] Herm [place] [id number] 2013-05-05 2013-05-05 NEW PT: nullFlavo [place] [id number] -4 Memoria 15:45:00 15:45:00 DIABETIC: r Branch [id number] l POSSIBLE Podiatry [id number] Her [place] ULCER LT [id number] FT 2013-05-05 2013-05-05 NEW PT: nullFlavo Sarahi [id number] -9 Memoria 14:45:00 14:45:00 DIABETIC: r Branch [id number] l POSSIBLE Podiatry [id number] Her [place] ULCER LT [id number] FT 2013-05-05 2013-05-05 NEW PT: nullFlavo Sarahi [id number] -4 Memoria 14:45:00 14:45:00 DIABETIC: r [place] [id number]-[id number] l POSSIBLE Podiatry [id number] Her [place] ULCER LT [id number] FT 2013-04-24 2013-04-24 EC nullFlavo [facility] [id number] Memoria 03:15:00 09:14:00 Emergency r Gabriel [id number] l [address] 2013-04-23 2013-04-24 Emergency nullFlavo [id number] Memoria 21:15:00 03:14:00 r [place] 00 l Gabriel Results Test Description Test Time Test Comments Results Result Comments Source BASIC METABOLIC PANEL (NA, K, CL, CO2, GLUCOSE, BUN, 2022-03 14:40:05 CREATININE, CA) Test Item Value Reference Range Interpretation Comme nts NA (test code = 139 mmol/L 135-145 8262296153) K (test code = 4.8 mmol/L 3.5-5.0 Slight hemoly sis 7447058884) CL (test code = 103 mmol/L 98-108 8662055496) CO2 TOTAL (test code = 31 mmol/L 23-31 3323560823) AGAP (test code = 2-16 4253689532) BUN (test code = 14 mg/dL 7-23 Slight hemo lysis 4071115750) GLUCOSE (test code = 99 mg/dL 70-110 6681284890) CREATININE (test code = 0.77 mg/dL 0.60-1.25 6763067787) CALCIUM (test code = 8.7 mg/dL 8.6-10.6 2961316087) eGFR (test code = mL/min/1.73m2 9186569290) MILO (test code = MILO) Association of [...] or urine or abnormalities in imaging tests). [facility] (NA, K, CL, CO2, GLUCOSE, BUN, CREATININE, CA)2022-03-22 14:40:05 Test Item Value Reference Range Interpretation Comments NA (test code = 139 mmol/L 135-145 7541294331) K (test code = 4.8 mmol/L 3.5-5.0 Slight hemoly sis 7320781257) CL (test code = 103 mmol/L 98-108 4853207565) CO2 TOTAL (test 31 mmol/L 23-31 code = 0200642320) AGAP (test code = 2-16 7942440976) BUN (test code = 14 mg/dL 7-23 Slight hemo lysis 4298051080) GLUCOSE (test code 99 mg/dL 70-110 = 8858830831) CREATININE (test 0.77 mg/dL 0.60-1.25 code = 8975054098) CALCIUM (test code 8.7 mg/dL 8.6-10.6 = 1002544281) eGFR (test code = mL/min/1.73m2 9395559145) MILO (test code = Association of MILO) [...] or urine or abnormalities in imaging tests). [facility] / [id number] 14:25:00 Test Item Value Reference Range Interpretation Comments PROTIME PATIENT (test See_Comment H [Auto mated message] code = 5964-2) The system [employer] generated this result transmitted ref erence range: 10.1 - 1 2.6 Seconds. The reference range was not used to int erpret this result as normal/abnormal . INR (test code = 6301-6) Nor mal INR <1.1; Warfarin Therap eutic range 2.0 to 3. 0 or 2.5 to 3.5, dep ending upon the indica tions. Lab Interpretation (test Abnormal code = 66102-5) [facility] / [id number] 14:25:00 Test Item Value Reference Range Interpretation Comments PROTIME PATIENT (test See_Comment H [Auto mated message] code = 5964-2) The system [employer] generated this result transmitted ref erence range: 10.1 - 1 2.6 Seconds. The reference range was not used to int erpret this result as normal/abnormal . INR (test code = 6301-6) Nor mal INR <1.1; Warfarin Therap eutic range 2.0 to 3. 0 or 2.5 to 3.5, dep ending upon the indica tions. Lab Interpretation (test Abnormal code = 15552-2) [facility] WITHOUT [id number] 14:23:19 Test Item Value Reference Range Interpretation Comments WBC (test code = 6690-2) See_Comment H [A utomated message] The system [employer] generated this result transmit cesar reference range : 4.20 - 10.70 10*3/?L. The reference range was not used to interpret this result as normal/abnormal . RBC (test code = 789-8) See_Comment [Au tomated message] The system [employer] generated this result transmit cesar reference range [...] See_Comment H [Au tomated message] The system [employer] generated this result transmit cesar reference range : 150 - 328 10*3/?L. The reference range was not used to interpret this result as normal/abnormal . MPV (test code = 10.1 fL 9.8-13.0 11676-3) RDW-CV (test code = 19.8 % 12.1-15.4 H 788-0) RDW-SD (test code = 56.4 fL 38.5-51.6 H 87080-5) NRBC x10^3 (test code = See_Comment [Au tomated message] 5892108064) The system [employer] generated this result transmit cesar reference range : 10*3/?L. The reference range was not used to interpret this result as normal/abnormal . NRBC/100 WBC (test code See_Comment [Au tomated message] = 3494195329) The system [facility] generated this result transmit cesar reference range : 0.0 - 10.0 /100 WBC s. The reference r jay was not used to interpret this result as normal/abnormal . IPF % (test code = 6031220159) Lab Interpretation (test Abnormal code = 76188-0) [facility] WITHOUT [id number] 14:23:19 Test Item Value Reference Range Interpretation Comments WBC (test code = 6690-2) See_Comment H [A utomated message] The system [facility] generated this result transmit cesar reference range : 4.20 - 10.70 10*3/?L. The reference range was not used to interpret this result as normal/abnormal . RBC (test code = 789-8) See_Comment [Au tomated message] The system [employer] generated this result transmit cesar reference range [...] See_Comment H [Au tomated message] The system [facility] [employer] generated this result transmit cesar reference range : 150 - 328 10*3/?L. The reference range was not used to interpret this result as normal/abnormal . MPV (test code = 10.1 fL 9.8-13.0 39738-9) RDW-CV (test code = 19.8 % 12.1-15.4 H 788-0) RDW-SD (test code = 56.4 fL 38.5-51.6 H 78037-6) NRBC x10^3 (test code = See_Comment [Au tomated message] 9691702578) The system [employer] generated this result transmit cesar reference range : 10*3/?L. The reference range was not used to interpret this result as normal/abnormal . NRBC/100 WBC (test code See_Comment [Au tomated message] = 1122922253) The system [employer] generated this result transmit cesar reference range : 0.0 - 10.0 /100 WBC s. The reference r jay was not used to interpret this result as normal/abnormal . IPF % (test code = 4723716051) Lab Interpretation (test Abnormal code = 38652-7) [facility] GLUCOSE (AUTOMATED)2022-02-15 23:08:28 Test Item Value Reference Range Interpretation Comments POCT GLU (test code = 9232045364) 322 mg/dL 70-110 H Lab Interpretation (test code = Abnormal 80728-2) [facility] GLUCOSE (AUTOMATED)2022-02-15 17:39:31 Test Item Value Reference Range Interpretation Comments POCT GLU (test code = 9455171057) 269 mg/dL 70-110 H Lab Interpretation (test code = Abnormal 07789-2) [facility] GLUCOSE (AUTOMATED)2022-02-15 17:39:31 Test Item Value Reference Range Interpretation Comments POCT GLU (test code = 1308696485) 269 mg/dL 70-110 H Lab Interpretation (test code = Abnormal 47800-7) [facility] GLUCOSE (AUTOMATED)2022-02-15 13:50:39 Test Item Value Reference Range Interpretation Comments POCT GLU (test code = 1464607680) 172 mg/dL 70-110 H Lab Interpretation (test code = Abnormal 53664-2) [facility] Confirmation (Lab Only)2022-02-15 12:43:29 Test Item Value Reference Range Interpretation Comments ABO & RH (test code A Negative Performe d at [facility] = 20) Laboratory [facility] Blood [facility] [address] [facility] [address] [address]Rvsw Free: [phone] A No. [id number] [facility] Confirmation (Lab Only)2022-02-15 12:43:29 Test Item Value Reference Range Interpretation Comments ABO & RH (test code A Negative Performe d at [facility] = 20) Laboratory [facility] Blood [facility] [address] [facility] [address] [address]Vezk Free: [phone] A No. [id number] [facility] and Screen - ONCE [id number] 12:42:53 Test Item Value Reference Range Interpretation Comments ABO & RH (test A NEGATIVE anti-D negati ve by tube, code = 20) patient treated as Rh NegativePerform ed at [facility] Laboratory [facility] Blood [address] [address]Njsu Free: [phone] A No. [id number] IAT (test code Negative Performed at [facility] Laboratory = 1185) [facility] Blood [address] [address]Yunf Free: [phone] A No. [id number] [facility] and Screen - ONCE [id number] 12:42:53 Test Item Value Reference Range Interpretation Comments ABO & RH (test A NEGATIVE anti-D negati ve by tube, code = 20) patient treated as Rh NegativePerform ed at [facility] Laboratory [facility] Blood [address] [address]Hulz Free: [phone] A No. [id number] IAT (test code Negative Performed at [facility] Laboratory = 1185) [facility] Blood [address] [address]Gjdd Free: [phone] A No. [id number] [facility]2022-02-15 10:23:28 Test Item Value Reference Range Interpretation Comments POCT GLU (test code = 5383847870) 252 mg/dL 70-110 H Lab Interpretation (test code = Abnormal 35319-1) [facility] GLUCOSE (AUTOMATED)2022-02-15 05:35:40 Test Item Value Reference Range Interpretation Comments POCT GLU (test code = 8370555111) 257 mg/dL 70-110 H Lab Interpretation (test code = Abnormal 81564-6) [facility] GLUCOSE (AUTOMATED)2022-02-15 03:31:47 Test Item Value Reference Range Interpretation Comments POCT GLU (test code = 0236577131) 336 mg/dL 70-110 H Lab Interpretation (test code = Abnormal 28675-8) [facility] GLUCOSE (AUTOMATED)2022-02-15 02:33:32 Test Item Value Reference Range Interpretation Comments POCT GLU (test code = 0887046112) 309 mg/dL 70-110 H Lab Interpretation (test code = Abnormal 36776-5) [facility] GLUCOSE (AUTOMATED)2022-02-14 22:03:42 Test Item Value Reference Range Interpretation Comments POCT GLU (test code = 6760848749) 253 mg/dL 70-110 H Lab Interpretation (test code = Abnormal 70412-5) [facility] GLUCOSE (AUTOMATED)2022-02-14 17:38:54 Test Item Value Reference Range Interpretation Comments POCT GLU (test code = 0652874212) 320 mg/dL 70-110 H Lab Interpretation (test code = Abnormal 03697-7) [facility] GLUCOSE (AUTOMATED)2022-02-14 14:10:42 Test Item Value Reference Range Interpretation Comments POCT GLU (test code = 8358718521) 206 mg/dL 70-110 H Lab Interpretation (test code = Abnormal 17835-3) [facility] GLUCOSE (AUTOMATED)2022-02-14 10:39:55 Test Item Value Reference Range Interpretation Comments POCT GLU (test code = 1539771528) 209 mg/dL 70-110 H Lab Interpretation (test code = Abnormal 69631-0) [facility] GLUCOSE (AUTOMATED)2022-02-14 07:21:00 Test Item Value Reference Range Interpretation Comments POCT GLU (test code = 6287208826) 313 mg/dL 70-110 H Lab Interpretation (test code = Abnormal 49555-4) [facility]2022-02-14 06:02:33 Test Item Value Reference Range Interpretation Comments POCT GLU (test code = 1689772957) 326 mg/dL 70-110 H Lab Interpretation (test code = Abnormal 79321-9) [facility]2022-02-14 02:45:01 Test Item Value Reference Range Interpretation Comments POCT GLU (test code = 4790990288) 259 mg/dL 70-110 H Lab Interpretation (test code = Abnormal 67780-5) [facility]2022-02-13 18:19:56 Test Item Value Reference Range Interpretation Comments POCT GLU (test code = 4509830746) 249 mg/dL 70-110 H Lab Interpretation (test code = Abnormal 94966-8) [facility] GLUCOSE (AUTOMATED)2022-02-13 16:07:29 Test Item Value Reference Range Interpretation Comments POCT GLU (test code = 9207258394) 176 mg/dL 70-110 H Lab Interpretation (test code = Abnormal 11726-1) [facility] 13:51:54 Test Item Value Reference Range Interpretation Comments POCT GLU (test code = 8497630955) 191 mg/dL 70-110 H Lab Interpretation (test code = Abnormal 36927-1) [facility]22-[facility]-13 10:59:33 Test Item Value Reference Range Interpretation Comments POCT GLU (test code = 9308316163) 325 mg/dL 70-110 H Lab Interpretation (test code = Abnormal 13641-8) [facility]2022-02-13 05:39:29 Test Item Value Reference Range Interpretation Comments POCT GLU (test code = 7336864888) 294 mg/dL 70-110 H Lab Interpretation (test code = Abnormal 29769-7) [facility]22-[facility]-13 02:05:02 Test Item Value Reference Range Interpretation Comments POCT GLU (test code = 4146084558) 300 mg/dL 70-110 H Lab Interpretation (test code = Abnormal 33262-3) [facility]22-[facility]-12 23:08:56 Test Item Value Reference Range Interpretation Comments POCT GLU (test code = 3021380412) 280 mg/dL 70-110 H Lab Interpretation (test code = Abnormal 95756-6) [facility]2022-[facility]-12 17:34:08 Test Item Value Reference Range Interpretation Comments POCT GLU (test code = 5977357440) 312 mg/dL 70-110 H Lab Interpretation (test code = Abnormal 59932-4) [facility]22-[facility]-12 17:34:08 Test Item Value Reference Range Interpretation Comments POCT GLU (test code = 4453979992) 312 mg/dL 70-110 H Lab Interpretation (test code = Abnormal 96142-1) [facility] GLUCOSE (AUTOMATED)2022-02-12 14:15:54 Test Item Value Reference Range Interpretation Comments POCT GLU (test code = 5164291777) 242 mg/dL 70-110 H Lab Interpretation (test code = Abnormal 02900-9) [facility]12 14:15:54 Test Item Value Reference Range Interpretation Comments POCT GLU (test code = 1314064245) 242 mg/dL 70-110 H Lab Interpretation (test code = Abnormal 95498-8) [facility] GLUCOSE (AUTOMATED)2022-02-12 08:56:00 Test Item Value Reference Range Interpretation Comments POCT GLU (test code = 6371647140) 289 mg/dL 70-110 H Lab Interpretation (test code = Abnormal 93448-7) [facility]12 08:56:00 Test Item Value Reference Range Interpretation Comments POCT GLU (test code = 6579851374) 289 mg/dL 70-110 H Lab Interpretation (test code = Abnormal 08844-0) [facility]-12 05:05:55 Test Item Value Reference Range Interpretation Comments POCT GLU (test code = 0032820047) 390 mg/dL 70-110 H Lab Interpretation (test code = Abnormal 08753-3) [facility] GLUCOSE (AUTOMATED)2022-02-12 05:05:55 Test Item Value Reference Range Interpretation Comments POCT GLU (test code = 4770158636) 390 mg/dL 70-110 H Lab Interpretation (test code = Abnormal 46772-3) [facility] GLUCOSE (AUTOMATED)2022-02-12 02:10:28 Test Item Value Reference Range Interpretation Comments POCT GLU (test code = 6245964618) 458 mg/dL 70-110 HH Lab Interpretation (test code = Abnormal 19064-8) [facility] GLUCOSE (AUTOMATED)2022-02-12 02:10:28 Test Item Value Reference Range Interpretation Comments POCT GLU (test code = 2291043950) 458 mg/dL 70-110 HH Lab Interpretation (test code = Abnormal 27425-4) [facility] GLUCOSE (AUTOMATED)2022-02-11 23:02:31 Test Item Value Reference Range Interpretation Comments POCT GLU (test code = 8859537696) 386 mg/dL 70-110 H Lab Interpretation (test code = Abnormal 02568-2) [facility] GLUCOSE (AUTOMATED)2022-02-11 23:02:31 Test Item Value Reference Range Interpretation Comments POCT GLU (test code = 6477998102) 386 mg/dL 70-110 H Lab Interpretation (test code = Abnormal 99925-7) [facility] GLUCOSE (AUTOMATED)2022-02-11 17:30:37 Test Item Value Reference Range Interpretation Comments POCT GLU (test code = 7626683867) 172 mg/dL 70-110 H Lab Interpretation (test code = Abnormal 03294-1) [facility] GLUCOSE (AUTOMATED)2022-02-11 17:30:37 Test Item Value Reference Range Interpretation Comments POCT GLU (test code = 6679442107) 172 mg/dL 70-110 H Lab Interpretation (test code = Abnormal 70909-2) [facility] GLUCOSE (AUTOMATED)2022-02-11 14:11:16 Test Item Value Reference Range Interpretation Comments POCT GLU (test code = 5740564433) 142 mg/dL 70-110 H Lab Interpretation (test code = Abnormal 19589-7) [facility] GLUCOSE (AUTOMATED)2022-02-11 14:11:16 Test Item Value Reference Range Interpretation Comments POCT GLU (test code = 5535075515) 142 mg/dL 70-110 H Lab Interpretation (test code = Abnormal 03726-4) [facility] WITH [id number] 13:16:05 Test Item Value Reference Range Interpretation [...] RDW-SD (test code = 44.6 fL 38.5-51.6 72825-0) RDW-CV (test code = 16.2 % 12.1-15.4 H 788-0) PLT (test code = See_Comment H [Automated 777-3) message] The system which generated this result transmit cesar reference range : 150 - 328 10*3/ ?L. The reference range was not u sed to interpret th is result as normal/abnormal . MPV (test code = 10.1 fL 9.8-13.0 25988-8) NRBC/100 WBC (test See_Comment [Automat ed code = 9648926819) message] The system which generated this result transmit cesar reference range : 0.0 - 10.0 /100 WBCs. The reference range was not used to interpret this result as normal/abnormal . NRBC x10^3 (test code See_Comment [Auto mated = 8527265025) message] The system which generated this result transmit cesar reference range : 10*3/?L. The reference range was not used to interpret this result as normal/abnormal . GRAN MAT (NEUT) % 70.8 % (test code = 770-8) IMM GRAN % (test code 1.80 % = 3756489879) LYMPH % (test code = 12.3 % 736-9) MONO % (test code = 11.1 % 5905-5) EOS % (test code = 3.6 % 713-8) BASO % (test code = 0.4 % 706-2) GRAN MAT x10^3(ANC) 11.46 10*3/uL 1.99-6.95 H (test code = 0285997008) IMM GRAN x10^3 (test 0.29 10*3/uL 0.00-0.06 H code = 1774764589) LYMPH x10^3 (test code 1.99 10*3/uL 1.09-3.23 = 731-0) MONO x10^3 (test code 1.79 10*3/uL 0.36-1.02 H = 742-7) EOS x10^3 (test code = 0.58 10*3/uL 0.06-0.53 H 711-2) BASO x10^3 (test code 0.07 10*3/uL 0.01-0.09 = 704-7) REACT LYMPHS (test Rare code = 3226256912) Lab Interpretation Abnormal (test code = 67147-2) [facility] WITH [id number] 13:16:05 Test Item Value Reference Range Interpretation [...] RDW-SD (test code = 44.6 fL 38.5-51.6 52440-3) RDW-CV (test code = 16.2 % 12.1-15.4 H 788-0) PLT (test code = See_Comment H [Automated 777-3) message] The system which generated this result transmit cesar reference range : 150 - 328 10*3/ ?L. The reference range was not u sed to interpret th is result as normal/abnormal . MPV (test code = 10.1 fL 9.8-13.0 66851-0) NRBC/100 WBC (test See_Comment [Automat ed code = 0752095510) message] The system which generated this result transmit cesar reference range : 0.0 - 10.0 /100 WBCs. The reference range was not used to interpret this result as normal/abnormal . NRBC x10^3 (test code See_Comment [Auto mated = 4749335406) message] The system which generated this result transmit cesar reference range : 10*3/?L. The reference range was not used to interpret this result as normal/abnormal . GRAN MAT (NEUT) % 70.8 % (test code = 770-8) IMM GRAN % (test code 1.80 % = 1381492346) LYMPH % (test code = 12.3 % 736-9) MONO % (test code = 11.1 % 5905-5) EOS % (test code = 3.6 % 713-8) BASO % (test code = 0.4 % 706-2) GRAN MAT x10^3(ANC) 11.46 10*3/uL 1.99-6.95 H (test code = 2965769455) IMM GRAN x10^3 (test 0.29 10*3/uL 0.00-0.06 H code = 6071166248) LYMPH x10^3 (test code 1.99 10*3/uL 1.09-3.23 = 731-0) MONO x10^3 (test code 1.79 10*3/uL 0.36-1.02 H = 742-7) EOS x10^3 (test code = 0.58 10*3/uL 0.06-0.53 H 711-2) BASO x10^3 (test code 0.07 10*3/uL 0.01-0.09 = 704-7) REACT LYMPHS (test Rare code = 9803717562) Lab Interpretation Abnormal (test code = 26058-5) [facility] METABOLIC PANEL (NA, K, CL, CO2, GLUCOSE, BUN, CREATININE, CA)2022-02-11 12:55:57 Test Item Value Reference Range Interpretation Comments NA (test code = 134 mmol/L 135-145 L 2453831170) K (test code = 4.5 mmol/L 3.5-5.0 Slight 2388218270) hemolysis CL (test code = 102 mmol/L 98-108 5728690035) CO2 TOTAL (test code 25 mmol/L 23-31 = 9660999719) AGAP (test code = 2-16 4598332898) BUN (test code = 17 mg/dL 7-23 Slight 4783493983) hemolysis GLUCOSE (test code = 126 mg/dL 70-110 H 1882437373) CREATININE (test code 0.78 mg/dL 0.60-1.25 = 9083695845) CALCIUM (test code = 8.0 mg/dL 8.6-10.6 L 4166603959) eGFR (test code = mL/min/1.73m2 6091078455) MILO (test code = MILO) Association of [...] tests). Lab Interpretation Abnormal (test code = 78016-0) [facility] Test Item Value Reference Range Interpretation Comments MAGNESIUM (test code = 4569719587) 2.1 mg/dL 1.7-2.4 Lab Interpretation (test code = Normal 78640-4) [facility] (NA, K, CL, CO2, GLUCOSE, BUN, CREATININE, CA)2022-02-11 12:55:57 Test Item Value Reference Range Interpretation Comments NA (test code = 134 mmol/L 135-145 L 6829966800) K (test code = 4.5 mmol/L 3.5-5.0 Slight 6969660708) hemolysis CL (test code = 102 mmol/L 98-108 8624188780) CO2 TOTAL (test code 25 mmol/L 23-31 = 8850262055) AGAP (test code = 2-16 5590872889) BUN (test code = 17 mg/dL 7-23 Slight 8654563815) hemolysis GLUCOSE (test code = 126 mg/dL 70-110 H 9050903351) CREATININE (test code 0.78 mg/dL 0.60-1.25 = 7340282400) CALCIUM (test code = 8.0 mg/dL 8.6-10.6 L 6778021643) eGFR (test code = mL/min/1.73m2 5737331002) MILO (test code = MILO) Association of [...] tests). Lab Interpretation Abnormal (test code = 77286-3) [facility] Test Item Value Reference Range Interpretation Comments MAGNESIUM (test code = 1074852835) 2.1 mg/dL 1.7-2.4 Lab Interpretation (test code = Normal 38965-9) [facility] GLUCOSE (AUTOMATED)2022-02-11 03:08:56 Test Item Value Reference Range Interpretation Comments POCT GLU (test code = 9130342405) 204 mg/dL 70-110 H Lab Interpretation (test code = Abnormal 70324-6) [facility] GLUCOSE (AUTOMATED)2022-02-11 03:08:56 Test Item Value Reference Range Interpretation Comments POCT GLU (test code = 0468449719) 204 mg/dL 70-110 H Lab Interpretation (test code = Abnormal 12890-7) [facility] GLUCOSE (AUTOMATED)2022-02-10 23:12:20 Test Item Value Reference Range Interpretation Comments POCT GLU (test code = 0847989347) 140 mg/dL 70-110 H Lab Interpretation (test code = Abnormal 22841-8) [facility] 23:12:20 Test Item Value Reference Range Interpretation Comments POCT GLU (test code = 7668198436) 140 mg/dL 70-110 H Lab Interpretation (test code = Abnormal 61432-6) [facility] WITH [id number] 13:06:05 Test Item Value Reference Range Interpretation [...] RDW-SD (test code = 43.6 fL 38.5-51.6 57703-9) RDW-CV (test code = 15.9 % 12.1-15.4 H 788-0) PLT (test code = See_Comment H [Automated 777-3) message] The sy stem which generated this result transmitted reference range : 150 - 328 10*3/ ?L. The reference r jay was not used to interpret this result as normal/abnormal . MPV (test code = 10.0 fL 9.8-13.0 47724-7) NRBC/100 WBC (test See_Comment [Automat ed code = 3643030154) message] The system which generated this result transmitted reference range : 0.0 - 10.0 /100 WBCs. The refer ence range was not u sed to interpret th is result as normal/abnormal . NRBC x10^3 (test code See_Comment [Auto mated = 4117872518) message] The s ystem which generated this result transmitted reference range : 10*3/?L. The reference range was not used to interpret this result as normal/abnormal . GRAN MAT (NEUT) % 68.2 % (test code = 770-8) IMM GRAN % (test code 2.40 % = 3789265778) LYMPH % (test code = 13.1 % 736-9) MONO % (test code = 11.7 % 5905-5) EOS % (test code = 4.2 % 713-8) BASO % (test code = 0.4 % 706-2) GRAN MAT x10^3(ANC) 8.83 10*3/uL 1.99-6.95 H (test code = 3195179937) IMM GRAN x10^3 (test 0.31 10*3/uL 0.00-0.06 H code = 0635188720) LYMPH x10^3 (test code 1.70 10*3/uL 1.09-3.23 = 731-0) MONO x10^3 (test code 1.52 10*3/uL 0.36-1.02 H = 742-7) EOS x10^3 (test code = 0.55 10*3/uL 0.06-0.53 H 711-2) BASO x10^3 (test code 0.05 10*3/uL 0.01-0.09 = 704-7) Lab Interpretation Abnormal (test code = 55354-7) [facility] WITH [id number] 13:06:05 Test Item Value Reference Range Interpretation Comments WBC (test code = See_Comment H [Automated 7290-2) message] The sy stem which generated this result transmitted reference range : 4.20 - 10.70 10*3/?L. The reference range was not used to interpret this result as normal/abnormal . RBC (test code = See_Comment L [Automated 979-8) message] The sy stem which generated this [...] RDW-SD (test code = 43.6 fL 38.5-51.6 95323-3) RDW-CV (test code = 15.9 % 12.1-15.4 H 788-0) PLT (test code = See_Comment H [Automated 777-3) message] The sy stem which generated this result transmitted reference range : 150 - 328 10*3/ ?L. The reference r jay was not used to interpret this result as normal/abnormal . MPV (test code = 10.0 fL 9.8-13.0 89373-2) NRBC/100 WBC (test See_Comment [Automat ed code = 4395755090) message] The system which generated this result transmitted reference range : 0.0 - 10.0 /100 WBCs. The refer ence range was not u sed to interpret th is result as normal/abnormal . NRBC x10^3 (test code See_Comment [Auto mated = 2698964108) message] The s ystem which generated this result transmitted reference range : 10*3/?L. The reference range was not used to interpret this result as normal/abnormal . GRAN MAT (NEUT) % 68.2 % (test code = 770-8) IMM GRAN % (test code 2.40 % = 9761070663) LYMPH % (test code = 13.1 % 736-9) MONO % (test code = 11.7 % 5905-5) EOS % (test code = 4.2 % 713-8) BASO % (test code = 0.4 % 706-2) GRAN MAT x10^3(ANC) 8.83 10*3/uL 1.99-6.95 H (test code = 9379629314) IMM GRAN x10^3 (test 0.31 10*3/uL 0.00-0.06 H code = 2099797479) LYMPH x10^3 (test code 1.70 10*3/uL 1.09-3.23 = 731-0) MONO x10^3 (test code 1.52 10*3/uL 0.36-1.02 H = 742-7) EOS x10^3 (test code = 0.55 10*3/uL 0.06-0.53 H 711-2) BASO x10^3 (test code 0.05 10*3/uL 0.01-0.09 = 704-7) Lab Interpretation Abnormal (test code = 93332-4) [facility] METABOLIC PANEL (NA, K, CL, CO2, GLUCOSE, BUN, CREATININE, CA)2022-02-10 12:27:58 Test Item Value Reference Range Interpretation Comments NA (test code = 135 mmol/L 135-145 1119374391) K (test code = 4.1 mmol/L 3.5-5.0 1278743875) CL (test code = 101 mmol/L 98-108 0693213546) CO2 TOTAL (test code = 26 mmol/L 23-31 1969773576) AGAP (test code = 2-16 3929159310) BUN (test code = 16 mg/dL 7-23 5947507593) GLUCOSE (test code = 203 mg/dL 70-110 H 1171608929) CREATININE (test code = 0.80 mg/dL 0.60-1.25 7030763102) CALCIUM (test code = 8.0 mg/dL 8.6-10.6 L 9411577981) eGFR (test code = mL/min/1.73m2 7027502511) MILO (test code = MILO) Association of [...] tests). Lab Interpretation Abnormal (test code = 37346-4) [facility] 12:27:58 Test Item Value Reference Range Interpretation Comments MAGNESIUM (test code = 6867460138) 2.1 mg/dL 1.7-2.4 Lab Interpretation (test code = Normal 41745-0) [facility] (NA, K, CL, CO2, GLUCOSE, BUN, CREATININE, CA)2022-02-10 12:27:58 Test Item Value Reference Range Interpretation Comments NA (test code = 135 mmol/L 135-145 2747497114) K (test code = 4.1 mmol/L 3.5-5.0 5088808756) CL (test code = 101 mmol/L 98-108 6080407792) CO2 TOTAL (test code = 26 mmol/L 23-31 6491305054) AGAP (test code = 2-16 7873384180) BUN (test code = 16 mg/dL 7-23 6118767371) GLUCOSE (test code = 203 mg/dL 70-110 H 5543258942) CREATININE (test code = 0.80 mg/dL 0.60-1.25 7810032742) CALCIUM (test code = 8.0 mg/dL 8.6-10.6 L 8795354354) eGFR (test code = mL/min/1.73m2 0995571401) MILO (test code = MILO) Association of [...] tests). Lab Interpretation Abnormal (test code = 45430-8) [facility] 12:27:58 Test Item Value Reference Range Interpretation Comments MAGNESIUM (test code = 6329161271) 2.1 mg/dL 1.7-2.4 Lab Interpretation (test code = Normal 79909-1) [facility] GLUCOSE (AUTOMATED)2022-02-10 02:45:53 Test Item Value Reference Range Interpretation Comments POCT GLU (test code = 2068023319) 225 mg/dL 70-110 H Lab Interpretation (test code = Abnormal 17019-5) [facility] GLUCOSE (AUTOMATED)2022-02-10 02:45:53 Test Item Value Reference Range Interpretation Comments POCT GLU (test code = 9532595006) 225 mg/dL 70-110 H Lab Interpretation (test code = Abnormal 72008-2) [facility] GLUCOSE (AUTOMATED)2022-02-09 22:39:59 Test Item Value Reference Range Interpretation Comments POCT GLU (test code = 0554091452) 123 mg/dL 70-110 H Lab Interpretation (test code = Abnormal 91671-7) [facility] GLUCOSE (AUTOMATED)2022-02-09 22:39:59 Test Item Value Reference Range Interpretation Comments POCT GLU (test code = 3397684902) 123 mg/dL 70-110 H Lab Interpretation (test code = Abnormal 90010-8) [facility] GLUCOSE (AUTOMATED)2022-02-09 17:37:08 Test Item Value Reference Range Interpretation Comments POCT GLU (test code = 4770657877) 128 mg/dL 70-110 H Lab Interpretation (test code = Abnormal 00474-1) [facility] GLUCOSE (AUTOMATED)2022-02-09 17:37:08 Test Item Value Reference Range Interpretation Comments POCT GLU (test code = 4329824585) 128 mg/dL 70-110 H Lab Interpretation (test code = Abnormal 24100-1) [facility] GLUCOSE (AUTOMATED)2022-02-09 13:57:34 Test Item Value Reference Range Interpretation Comments POCT GLU (test code = 5853512260) 164 mg/dL 70-110 H Lab Interpretation (test code = Abnormal 34581-5) [facility] GLUCOSE (AUTOMATED)2022-02-09 13:57:34 Test Item Value Reference Range Interpretation Comments POCT GLU (test code = 1169128759) 164 mg/dL 70-110 H Lab Interpretation (test code = Abnormal 86945-2) [facility] WITH [id number] 13:08:46 Test Item Value Reference Range Interpretation [...] RDW-SD (test code = 42.7 fL 38.5-51.6 51970-0) RDW-CV (test code = 15.5 % 12.1-15.4 H 788-0) PLT (test code = See_Comment H [Automated 777-3) message] The sy stem which generated this result transmitted reference range : 150 - 328 10*3/ ?L. The reference r jay was not used to interpret this result as normal/abnormal . MPV (test code = 9.9 fL 9.8-13.0 46095-8) NRBC/100 WBC (test See_Comment [Automat ed code = 6678181520) message] The system which generated this result transmitted reference range : 0.0 - 10.0 /100 WBCs. The refer ence range was not u sed to interpret th is result as normal/abnormal . NRBC x10^3 (test code See_Comment [Auto mated = 7441809986) message] The s ystem which generated this result transmitted reference range : 10*3/?L. The reference range was not used to interpret this result as normal/abnormal . GRAN MAT (NEUT) % 63.9 % (test code = 770-8) IMM GRAN % (test code 3.70 % = 4633906518) LYMPH % (test code = 17.0 % 736-9) MONO % (test code = 11.8 % 5905-5) EOS % (test code = 3.0 % 713-8) BASO % (test code = 0.6 % 706-2) GRAN MAT x10^3(ANC) 9.23 10*3/uL 1.99-6.95 H (test code = 5657047251) IMM GRAN x10^3 (test 0.53 10*3/uL 0.00-0.06 H code = 9356404682) LYMPH x10^3 (test code 2.46 10*3/uL 1.09-3.23 = 731-0) MONO x10^3 (test code 1.71 10*3/uL 0.36-1.02 H = 742-7) EOS x10^3 (test code = 0.43 10*3/uL 0.06-0.53 711-2) BASO x10^3 (test code 0.08 10*3/uL 0.01-0.09 = 704-7) HYPERSEG NEUTS (test Present See_Comment A [Autom ated code = 785-8) message] The s ystem which generated this result transmitted reference range : (none). The reference range was not used to interpret this result as normal/abnormal . Lab Interpretation Abnormal (test code = 18116-9) [facility] WITH [id number] 13:08:46 Test Item Value Reference Range Interpretation Comments WBC (test code = See_Comment H [Automated 1190-2) message] The sy stem which generated this result transmitted reference range : 4.20 - 10.70 10*3/?L. The reference range was not used to interpret this result as normal/abnormal . RBC (test code = See_Comment L [Automated 939-8) message] The sy stem which generated this [...] RDW-SD (test code = 42.7 fL 38.5-51.6 19038-2) RDW-CV (test code = 15.5 % 12.1-15.4 H 788-0) PLT (test code = See_Comment H [Automated 777-3) message] The sy stem which generated this result transmitted reference range : 150 - 328 10*3/ ?L. The reference r jay was not used to interpret this result as normal/abnormal . MPV (test code = 9.9 fL 9.8-13.0 21427-7) NRBC/100 WBC (test See_Comment [Automat ed code = 4725162463) message] The system which generated this result transmitted reference range : 0.0 - 10.0 /100 WBCs. The refer ence range was not u sed to interpret th is result as normal/abnormal . NRBC x10^3 (test code See_Comment [Auto mated = 0773145203) message] The s ystem which generated this result transmitted reference range : 10*3/?L. The reference range was not used to interpret this result as normal/abnormal . GRAN MAT (NEUT) % 63.9 % (test code = 770-8) IMM GRAN % (test code 3.70 % = 0808520920) LYMPH % (test code = 17.0 % 736-9) MONO % (test code = 11.8 % 5905-5) EOS % (test code = 3.0 % 713-8) BASO % (test code = 0.6 % 706-2) GRAN MAT x10^3(ANC) 9.23 10*3/uL 1.99-6.95 H (test code = 0247530487) IMM GRAN x10^3 (test 0.53 10*3/uL 0.00-0.06 H code = 4572311164) LYMPH x10^3 (test code 2.46 10*3/uL 1.09-3.23 = 731-0) MONO x10^3 (test code 1.71 10*3/uL 0.36-1.02 H = 742-7) EOS x10^3 (test code = 0.43 10*3/uL 0.06-0.53 711-2) BASO x10^3 (test code 0.08 10*3/uL 0.01-0.09 = 704-7) HYPERSEG NEUTS (test Present See_Comment A [Autom ated code = 765-8) message] The [employer] which generated this result transmitted reference range : (none). The reference range was not used to interpret this result as normal/abnormal . Lab Interpretation Abnormal (test code = 31923-3) [facility] METABOLIC PANEL (NA, K, CL, CO2, GLUCOSE, BUN, CREATININE, CA)2022-02-09 12:45:07 Test Item Value Reference Range Interpretation Comments NA (test code = 134 mmol/L 135-145 L 0128998777) K (test code = 4.6 mmol/L 3.5-5.0 0075310185) CL (test code = 101 mmol/L 98-108 4466372688) CO2 TOTAL (test code = 26 mmol/L 23-31 6634955724) AGAP (test code = 2-16 9638077211) BUN (test code = 23 mg/dL 7-23 3718322158) GLUCOSE (test code = 148 mg/dL 70-110 H 7688281942) CREATININE (test code = 0.84 mg/dL 0.60-1.25 9776797440) CALCIUM (test code = 8.1 mg/dL 8.6-10.6 L 7267612779) eGFR (test code = mL/min/1.73m2 7699440667) MILO (test code = MILO) Association of [...] tests). Lab Interpretation Abnormal (test code = 02473-4) [facility] 12:[facility]:07 Test Item Value Reference Range Interpretation Comments MAGNESIUM (test code = 2255917182) 1.9 mg/dL 1.7-2.4 Lab Interpretation (test code = Normal 64882-0) [facility] (NA, K, CL, CO2, GLUCOSE, BUN, CREATININE, CA)2022-02-09 12:45:07 Test Item Value Reference Range Interpretation Comments NA (test code = 134 mmol/L 135-145 L 4737776490) K (test code = 4.6 mmol/L 3.5-5.0 0133256340) CL (test code = 101 mmol/L 98-108 1836723400) CO2 TOTAL (test code = 26 mmol/L 23-31 0707564530) AGAP (test code = 2-16 7184423587) BUN (test code = 23 mg/dL 7-23 5539272438) GLUCOSE (test code = 148 mg/dL 70-110 H 3530982613) CREATININE (test code = 0.84 mg/dL 0.60-1.25 2622269292) CALCIUM (test code = 8.1 mg/dL 8.6-10.6 L 3429400059) eGFR (test code = mL/min/1.73m2 8274681819) MILO (test code = MILO) Association of [...] tests). Lab Interpretation Abnormal (test code = 09206-3) [facility] Test Item Value Reference Range Interpretation Comments MAGNESIUM (test code = 2069373837) 1.9 mg/dL 1.7-2.4 Lab Interpretation (test code = Normal 42287-4) [facility] GLUCOSE (AUTOMATED)2022-02-09 02:51:53 Test Item Value Reference Range Interpretation Comments POCT GLU (test code = 9209217951) 302 mg/dL 70-110 H Lab Interpretation (test code = Abnormal 67425-6) [facility] GLUCOSE (AUTOMATED)2022-02-09 02:51:53 Test Item Value Reference Range Interpretation Comments POCT GLU (test code = 5019935547) 302 mg/dL 70-110 H Lab Interpretation (test code = Abnormal 62558-0) [facility] GLUCOSE (AUTOMATED)2022-02-09 00:06:23 Test Item Value Reference Range Interpretation Comments POCT GLU (test code = 6766670595) 168 mg/dL 70-110 H Lab Interpretation (test code = Abnormal 40869-5) [facility] GLUCOSE (AUTOMATED)2022-02-09 00:06:23 Test Item Value Reference Range Interpretation Comments POCT GLU (test code = 0098195584) 168 mg/dL 70-110 H Lab Interpretation (test code = Abnormal 66843-9) [facility] GLUCOSE (AUTOMATED)2022-02-08 17:58:07 Test Item Value Reference Range Interpretation Comments POCT GLU (test code = 5074436115) 139 mg/dL 70-110 H Lab Interpretation (test code = Abnormal 95955-8) [facility] GLUCOSE (AUTOMATED)2022-02-08 17:58:07 Test Item Value Reference Range Interpretation Comments POCT GLU (test code = 4343964873) 139 mg/dL 70-110 H Lab Interpretation (test code = Abnormal 51384-1) [facility] GLUCOSE (AUTOMATED)2022-02-08 14:27:40 Test Item Value Reference Range Interpretation Comments POCT GLU (test code = 0624527485) 132 mg/dL 70-110 H Lab Interpretation (test code = Abnormal 64378-8) [facility] GLUCOSE (AUTOMATED)2022-02-08 14:27:40 Test Item Value Reference Range Interpretation Comments POCT GLU (test code = 1318462764) 132 mg/dL 70-110 H Lab Interpretation (test code = Abnormal 50163-1) [facility] METABOLIC PANEL (NA, K, CL, CO2, GLUCOSE, BUN, CREATININE, CA)2022-02-08 11:22:58 Test Item Value Reference Range Interpretation Comments NA (test code = 134 mmol/L 135-145 L 4456514885) K (test code = 4.3 mmol/L 3.5-5.0 6449060440) CL (test code = 101 mmol/L 98-108 7494190447) CO2 TOTAL (test code = 31 mmol/L 23-31 5154225042) AGAP (test code = 2-16 2948934250) BUN (test code = 32 mg/dL 7-23 H 2078318190) GLUCOSE (test code = 130 mg/dL 70-110 H 7545323158) CREATININE (test code = 0.84 mg/dL 0.60-1.25 4956467970) CALCIUM (test code = 8.2 mg/dL 8.6-10.6 L 2279621928) eGFR (test code = mL/min/1.73m2 6721813371) MILO (test code = MILO) Association of [...] tests). Lab Interpretation Abnormal (test code = 23163-3) [facility] 11:22:58 Test Item Value Reference Range Interpretation Comments MAGNESIUM (test code = 3802577019) 2.1 mg/dL 1.7-2.4 Lab Interpretation (test code = Normal 35769-6) [facility] (NA, K, CL, CO2, GLUCOSE, BUN, CREATININE, CA)2022-02-08 11:22:58 Test Item Value Reference Range Interpretation Comments NA (test code = 134 mmol/L 135-145 L 5248005406) K (test code = 4.3 mmol/L 3.5-5.0 8229574241) CL (test code = 101 mmol/L 98-108 1546571378) CO2 TOTAL (test code = 31 mmol/L 23-31 3446039479) AGAP (test code = 2-16 2487663012) BUN (test code = 32 mg/dL 7-23 H 5964197254) GLUCOSE (test code = 130 mg/dL 70-110 H 1107330558) CREATININE (test code = 0.84 mg/dL 0.60-1.25 2658734223) CALCIUM (test code = 8.2 mg/dL 8.6-10.6 L 3711949179) eGFR (test code = mL/min/1.73m2 9421249813) MILO (test code = MILO) Association of [...] tests). Lab Interpretation Abnormal (test code = 57431-0) [facility] 11:22:58 Test Item Value Reference Range Interpretation Comments MAGNESIUM (test code = 6187771264) 2.1 mg/dL 1.7-2.4 Lab Interpretation (test code = Normal 99872-0) [facility] WITH [id number] 11:19:00 Test Item Value Reference Range Interpretation [...] RDW-SD (test code = 41.9 fL 38.5-51.6 56522-6) RDW-CV (test code = 15.2 % 12.1-15.4 788-0) PLT (test code = See_Comment H [Automated 777-3) message] The system which generated this result transmit cesar reference range : 150 - 328 10*3/ ?L. The reference range was not u sed to interpret th is result as normal/abnormal . MPV (test code = 9.5 fL 9.8-13.0 L 06924-6) NRBC/100 WBC (test See_Comment [Automat ed code = 6732113518) message] The system which generated this result transmit cesar reference range : 0.0 - 10.0 /100 WBCs. The reference range was not used to interpret this result as normal/abnormal . NRBC x10^3 (test code See_Comment [Auto mated = 1982295209) message] The system which generated this result transmit cesar reference range : 10*3/?L. The reference range was not used to interpret this result as normal/abnormal . GRAN MAT (NEUT) % 70.2 % (test code = 770-8) IMM GRAN % (test code 2.30 % = 6648289544) LYMPH % (test code = 17.5 % 736-9) MONO % (test code = 8.4 % 5905-5) EOS % (test code = 1.2 % 713-8) BASO % (test code = 0.4 % 706-2) GRAN MAT x10^3(ANC) 11.26 10*3/uL 1.99-6.95 H (test code = 8132515421) IMM GRAN x10^3 (test 0.37 10*3/uL 0.00-0.06 H code = 2054111051) LYMPH x10^3 (test code 2.81 10*3/uL 1.09-3.23 = 731-0) MONO x10^3 (test code 1.35 10*3/uL 0.36-1.02 H = 742-7) EOS x10^3 (test code = 0.20 10*3/uL 0.06-0.53 711-2) BASO x10^3 (test code 0.06 10*3/uL 0.01-0.09 = 704-7) Lab Interpretation Abnormal (test code = 10487-7) [facility] WITH [id number] 11:19:00 Test Item Value Reference Range Interpretation [...] RDW-SD (test code = 41.9 fL 38.5-51.6 66406-1) RDW-CV (test code = 15.2 % 12.1-15.4 788-0) PLT (test code = See_Comment H [Automated 777-3) message] The system which generated this result transmit cesar reference range : 150 - 328 10*3/ ?L. The reference range was not u sed to interpret th is result as normal/abnormal . MPV (test code = 9.5 fL 9.8-13.0 L 02718-9) NRBC/100 WBC (test See_Comment [Automat ed code = [id number]) message] The system which generated this result transmit cesar reference range : 0.0 - 10.0 /100 WBCs. The reference range was not used to interpret this result as normal/abnormal . NRBC x10^3 (test code See_Comment [Auto mated = [id number]) message] The system which generated this result transmit cesar reference range : 10*3/?L. The reference range was not used to interpret this result as normal/abnormal . GRAN MAT (NEUT) % 70.2 % (test code = 770-8) IMM GRAN % (test code 2.30 % = [id number]) LYMPH % (test code = 17.5 % 736-9) MONO % (test code = 8.4 % 5905-5) EOS % (test code = 1.2 % 713-8) BASO % (test code = 0.4 % 706-2) GRAN MAT x10^3(ANC) 11.26 10*3/uL 1.99-6.95 H (test code = [id number]) IMM GRAN x10^3 (test 0.37 10*3/uL 0.00-0.06 H code = [id number]) LYMPH x10^3 (test code 2.81 10*3/uL 1.09-3.23 = 731-0) MONO x10^3 (test code 1.35 10*3/uL 0.36-1.02 H = 742-7) EOS x10^3 (test code = 0.20 10*3/uL 0.06-0.53 711-2) BASO x10^3 (test code 0.06 10*3/uL 0.01-0.09 = 704-7) Lab Interpretation Abnormal (test code = 53181-9) [facility] GLUCOSE (AUTOMATED)2022-02-08 03:02:54 Test Item Value Reference Range Interpretation Comments POCT GLU (test code = 7735251488) 193 mg/dL 70-110 H Lab Interpretation (test code = Abnormal 53601-1) [facility] GLUCOSE (AUTOMATED)2022-02-08 03:02:54 Test Item Value Reference Range Interpretation Comments POCT GLU (test code = 2447570329) 193 mg/dL 70-110 H Lab Interpretation (test code = Abnormal 62658-3) [facility] GLUCOSE (AUTOMATED)2022-02-07 22:59:49 Test Item Value Reference Range Interpretation Comments POCT GLU (test code = 4471028998) 168 mg/dL 70-110 H Lab Interpretation (test code = Abnormal 36269-5) [facility] GLUCOSE (AUTOMATED)2022-02-07 22:59:49 Test Item Value Reference Range Interpretation Comments POCT GLU (test code = 9141373440) 168 mg/dL 70-110 H Lab Interpretation (test code = Abnormal 92918-3) [facility] GLUCOSE (AUTOMATED)2022-02-07 17:27:23 Test Item Value Reference Range Interpretation Comments POCT GLU (test code = 6179200359) 171 mg/dL 70-110 H Lab Interpretation (test code = Abnormal 15397-1) [facility] GLUCOSE (AUTOMATED)2022-02-07 17:27:23 Test Item Value Reference Range Interpretation Comments POCT GLU (test code = 1926544485) 171 mg/dL 70-110 H Lab Interpretation (test code = Abnormal 20054-4) [facility] GLUCOSE (AUTOMATED)2022-02-07 17:27:23 Test Item Value Reference Range Interpretation Comments POCT GLU (test code = 3966112562) 171 mg/dL 70-110 H Lab Interpretation (test code = Abnormal 28522-2) [facility] GLUCOSE (AUTOMATED)2022-02-07 17:27:23 Test Item Value Reference Range Interpretation Comments POCT GLU (test code = 1566421335) 171 mg/dL 70-110 H Lab Interpretation (test code = Abnormal 83723-8) [facility] GLUCOSE (AUTOMATED)2022-02-07 13:44:35 Test Item Value Reference Range Interpretation Comments POCT GLU (test code = 0113870314) 173 mg/dL 70-110 H Lab Interpretation (test code = Abnormal 82997-8) [facility] GLUCOSE (AUTOMATED)2022-02-07 13:44:35 Test Item Value Reference Range Interpretation Comments POCT GLU (test code = 1979709502) 173 mg/dL 70-110 H Lab Interpretation (test code = Abnormal 53406-8) [facility] GLUCOSE (AUTOMATED)2022-02-07 03:43:15 Test Item Value Reference Range Interpretation Comments POCT GLU (test code = 5700593454) 253 mg/dL 70-110 H Lab Interpretation (test code = Abnormal 01352-2) [facility] GLUCOSE (AUTOMATED)2022-02-07 03:43:15 Test Item Value Reference Range Interpretation Comments POCT GLU (test code = 6648951037) 253 mg/dL 70-110 H Lab Interpretation (test code = Abnormal 72801-1) [facility] GLUCOSE (AUTOMATED)2022-02-06 23:06:13 Test Item Value Reference Range Interpretation Comments POCT GLU (test code = 5673999924) 237 mg/dL 70-110 H Lab Interpretation (test code = Abnormal 49843-2) [facility] GLUCOSE (AUTOMATED)2022-02-06 23:06:13 Test Item Value Reference Range Interpretation Comments POCT GLU (test code = 8413450926) 237 mg/dL 70-110 H Lab Interpretation (test code = Abnormal 22247-0) [facility] GLUCOSE (AUTOMATED)2022-02-06 17:53:23 Test Item Value Reference Range Interpretation Comments POCT GLU (test code = 5766077888) 255 mg/dL 70-110 H Lab Interpretation (test code = Abnormal 34793-3) [facility] GLUCOSE (AUTOMATED)2022-02-06 17:53:23 Test Item Value Reference Range Interpretation Comments POCT GLU (test code = 7105842329) 255 mg/dL 70-110 H Lab Interpretation (test code = Abnormal 71170-2) [facility] GLUCOSE (AUTOMATED)2022-02-06 14:04:47 Test Item Value Reference Range Interpretation Comments POCT GLU (test code = 4726145461) 200 mg/dL 70-110 H Lab Interpretation (test code = Abnormal 69164-6) [facility] GLUCOSE (AUTOMATED)2022-02-06 14:04:47 Test Item Value Reference Range Interpretation Comments POCT GLU (test code = 1225059652) 200 mg/dL 70-110 H Lab Interpretation (test code = Abnormal 00786-8) [facility] GLUCOSE (AUTOMATED)2022-02-06 02:59:12 Test Item Value Reference Range Interpretation Comments POCT GLU (test code = 1748934529) 260 mg/dL 70-110 H Lab Interpretation (test code = Abnormal 97922-9) [facility] GLUCOSE (AUTOMATED)2022-02-06 02:59:12 Test Item Value Reference Range Interpretation Comments POCT GLU (test code = 2153221196) 260 mg/dL 70-110 H Lab Interpretation (test code = Abnormal 72027-1) [facility] GLUCOSE (AUTOMATED)2022-02-06 01:45:38 Test Item Value Reference Range Interpretation Comments POCT GLU (test code = 4724193953) 170 mg/dL 70-110 H Lab Interpretation (test code = Abnormal 36628-9) [facility] GLUCOSE (AUTOMATED)2022-02-06 01:45:38 Test Item Value Reference Range Interpretation Comments POCT GLU (test code = 4852522422) 170 mg/dL 70-110 H Lab Interpretation (test code = Abnormal 50417-9) [facility] GLUCOSE (AUTOMATED)2022-02-05 22:58:35 Test Item Value Reference Range Interpretation Comments POCT GLU (test code = 1813688665) 133 mg/dL 70-110 H Lab Interpretation (test code = Abnormal 85810-0) [facility] GLUCOSE (AUTOMATED)2022-02-05 22:58:35 Test Item Value Reference Range Interpretation Comments POCT GLU (test code = 7071119994) 133 mg/dL 70-110 H Lab Interpretation (test code = Abnormal 82483-6) [facility] GLUCOSE (AUTOMATED)2022-02-05 14:52:18 Test Item Value Reference Range Interpretation Comments POCT GLU (test code = 6519156021) 134 mg/dL 70-110 H Lab Interpretation (test code = Abnormal 58297-4) [facility] GLUCOSE (AUTOMATED)2022-02-05 14:52:18 Test Item Value Reference Range Interpretation Comments POCT GLU (test code = 9696012607) 134 mg/dL 70-110 H Lab Interpretation (test code = Abnormal 09393-1) [facility] WITH [id number] 09:58:07 Test Item Value Reference Range Interpretation [...] RDW-SD (test code = 41.7 fL 38.5-51.6 41162-5) RDW-CV (test code = 15.0 % 12.1-15.4 788-0) PLT (test code = See_Comment H [Automated 777-3) message] The system which generated this result transmit cesar reference range : 150 - 328 10*3/ ?L. The reference range was not u sed to interpret th is result as normal/abnormal . MPV (test code = 9.6 fL 9.8-13.0 L 76984-3) NRBC/100 WBC (test See_Comment [Automat ed code = 3497323918) message] The system which generated this result transmit cesar reference range : 0.0 - 10.0 /100 WBCs. The reference range was not used to interpret this result as normal/abnormal . NRBC x10^3 (test code See_Comment [Auto mated = 3206779821) message] The system which generated this result transmit cesar reference range : 10*3/?L. The reference range was not used to interpret this result as normal/abnormal . GRAN MAT (NEUT) % 75.9 % (test code = 770-8) IMM GRAN % (test code 0.80 % = 7130440974) LYMPH % (test code = 11.9 % 736-9) MONO % (test code = 6.6 % 5905-5) EOS % (test code = 4.4 % 713-8) BASO % (test code = 0.4 % 706-2) GRAN MAT x10^3(ANC) 16.15 10*3/uL 1.99-6.95 H (test code = 3946205456) IMM GRAN x10^3 (test 0.16 10*3/uL 0.00-0.06 H code = 0454142801) LYMPH x10^3 (test code 2.52 10*3/uL 1.09-3.23 = 731-0) MONO x10^3 (test code 1.40 10*3/uL 0.36-1.02 H = 742-7) EOS x10^3 (test code = 0.93 10*3/uL 0.06-0.53 H 711-2) BASO x10^3 (test code 0.09 10*3/uL 0.01-0.09 = 704-7) Lab Interpretation Abnormal (test code = 63710-2) [facility] WITH [id number] 09:58:07 Test Item Value Reference Range Interpretation [...] RDW-SD (test code = 41.7 fL 38.5-51.6 99212-6) RDW-CV (test code = 15.0 % 12.1-15.4 788-0) PLT (test code = See_Comment H [Automated 777-3) message] The system which generated this result transmit cesar reference range : 150 - 328 10*3/ ?L. The reference range was not u sed to interpret th is result as normal/abnormal . MPV (test code = 9.6 fL 9.8-13.0 L 66682-8) NRBC/100 WBC (test See_Comment [Automat ed code = 0303521951) message] The system which generated this result transmit cesar reference range : 0.0 - 10.0 /100 WBCs. The reference range was not used to interpret this result as normal/abnormal . NRBC x10^3 (test code See_Comment [Auto mated = 2024656345) message] The system which generated this result transmit cesar reference range : 10*3/?L. The reference range was not used to interpret this result as normal/abnormal . GRAN MAT (NEUT) % 75.9 % (test code = 770-8) IMM GRAN % (test code 0.80 % = 5622953734) LYMPH % (test code = 11.9 % 736-9) MONO % (test code = 6.6 % 5905-5) EOS % (test code = 4.4 % 713-8) BASO % (test code = 0.4 % 706-2) GRAN MAT x10^3(ANC) 16.15 10*3/uL 1.99-6.95 H (test code = 1889612676) IMM GRAN x10^3 (test 0.16 10*3/uL 0.00-0.06 H code = 6394909973) LYMPH x10^3 (test code 2.52 10*3/uL 1.09-3.23 = 731-0) MONO x10^3 (test code 1.40 10*3/uL 0.36-1.02 H = 742-7) EOS x10^3 (test code = 0.93 10*3/uL 0.06-0.53 H 711-2) BASO x10^3 (test code 0.09 10*3/uL 0.01-0.09 = 704-7) Lab Interpretation Abnormal (test code = 05238-0) [facility] METABOLIC PANEL (NA, K, CL, CO2, GLUCOSE, BUN, CREATININE, CA)2022-02-05 09:37:26 Test Item Value Reference Range Interpretation Comments NA (test code = 136 mmol/L 135-145 3521002590) K (test code = 3.8 mmol/L 3.5-5.0 5580521390) CL (test code = 102 mmol/L 98-108 3134246712) CO2 TOTAL (test code = 29 mmol/L 23-31 8836891430) AGAP (test code = 2-16 6121593479) BUN (test code = 14 mg/dL 7-23 9588515978) GLUCOSE (test code = 123 mg/dL 70-110 H 2691086109) CREATININE (test code = 0.84 mg/dL 0.60-1.25 9738419237) CALCIUM (test code = 8.6 mg/dL 8.6-10.6 5929274241) eGFR (test code = mL/min/1.73m2 5429046907) MILO (test code = MILO) Association of [...] tests). Lab Interpretation Abnormal (test code = 65682-3) [facility] Test Item Value Reference Range Interpretation Comments MAGNESIUM (test code = 7166782817) 1.9 mg/dL 1.7-2.4 Lab Interpretation (test code = Normal 21781-4) [facility] (NA, K, CL, CO2, GLUCOSE, BUN, CREATININE, CA)2022-02-05 09:37:26 Test Item Value Reference Range Interpretation Comments NA (test code = 136 mmol/L 135-145 1107828732) K (test code = 3.8 mmol/L 3.5-5.0 5725699175) CL (test code = 102 mmol/L 98-108 9887178736) CO2 TOTAL (test code = 29 mmol/L 23-31 9214845318) AGAP (test code = 2-16 4271352872) BUN (test code = 14 mg/dL 7-23 6797529028) GLUCOSE (test code = 123 mg/dL 70-110 H 6304696242) CREATININE (test code = 0.84 mg/dL 0.60-1.25 0198713599) CALCIUM (test code = 8.6 mg/dL 8.6-10.6 2029934314) eGFR (test code = mL/min/1.73m2 5005826759) MILO (test code = MILO) Association of [...] tests). Lab Interpretation Abnormal (test code = 05789-4) [facility] 09[facility]37[facility]26 Test Item Value Reference Range Interpretation Comments MAGNESIUM (test code = 0787665587) 1.9 mg/dL 1.7-2.4 Lab Interpretation (test code = Normal 17944-6) [facility] GLUCOSE (AUTOMATED)2022-02-05 03:19:53 Test Item Value Reference Range Interpretation Comments POCT GLU (test code = 0896216928) 125 mg/dL 70-110 H Lab Interpretation (test code = Abnormal 43003-2) [facility] GLUCOSE (AUTOMATED)2022-02-05 03:19:53 Test Item Value Reference Range Interpretation Comments POCT GLU (test code = 6154133725) 125 mg/dL 70-110 H Lab Interpretation (test code = Abnormal 90774-4) [facility] GLUCOSE (AUTOMATED)2022-02-04 22:57:26 Test Item Value Reference Range Interpretation Comments POCT GLU (test code = 7474320366) 108 mg/dL 70-110 Lab Interpretation (test code = Normal 00968-7) [facility] GLUCOSE (AUTOMATED)2022-02-04 22:57:26 Test Item Value Reference Range Interpretation Comments POCT GLU (test code = 2095369596) 108 mg/dL 70-110 Lab Interpretation (test code = Normal 79168-1) [facility] METABOLIC PANEL (NA, K, CL, CO2, GLUCOSE, BUN, CREATININE, CA)2022-02-04 20:43:32 Test Item Value Reference Range Interpretation Comments NA (test code = 138 mmol/L 135-145 7660113497) K (test code = 3.9 mmol/L 3.5-5.0 Slight 6718823300) hemolysis CL (test code = 101 mmol/L 98-108 2402289050) CO2 TOTAL (test code 29 mmol/L 23-31 = 5515065640) AGAP (test code = 2-16 0656115218) BUN (test code = 16 mg/dL 7-23 Slight 8143937751) hemolysis GLUCOSE (test code = 126 mg/dL 70-110 H 1437659924) CREATININE (test code 0.84 mg/dL 0.60-1.25 = 7367396810) CALCIUM (test code = 8.7 mg/dL 8.6-10.6 2847828427) eGFR (test code = mL/min/1.73m2 4558102378) MILO (test code = MILO) Association of [...] tests). Lab Interpretation Abnormal (test code = 04968-4) [facility] (NA, K, CL, CO2, GLUCOSE, BUN, CREATININE, CA)2022-02-04 20:43:32 Test Item Value Reference Range Interpretation Comments NA (test code = 138 mmol/L 135-145 7697159057) K (test code = 3.9 mmol/L 3.5-5.0 Slight 2364521014) hemolysis CL (test code = 101 mmol/L 98-108 2157796195) CO2 TOTAL (test code 29 mmol/L 23-31 = 1309346776) AGAP (test code = 2-16 4519609010) BUN (test code = 16 mg/dL 7-23 Slight 0439225504) hemolysis GLUCOSE (test code = 126 mg/dL 70-110 H 6061428245) CREATININE (test code 0.84 mg/dL 0.60-1.25 = 6799143216) CALCIUM (test code = 8.7 mg/dL 8.6-10.6 8483444728) eGFR (test code = mL/min/1.73m2 2473626256) MILO (test code = MILO) Association of [...] tests). Lab Interpretation Abnormal (test code = 39544-9) [facility] / [id number] 20:30:14 Test Item Value Reference Range Interpretation Comments PROTIME PATIENT (test See_Comment H [Auto mated message] code = 5964-2) The system [employer] generated this result transmitted ref erence range: 10.1 - 1 2.6 Seconds. The reference range was not used to int erpret this result as normal/abnormal . INR (test code = 6301-6) Nor mal INR <1.1; Warfarin Therap eutic range 2.0 to 3. 0 or 2.5 to 3.5, dep ending upon the indica tions. Lab Interpretation (test Abnormal code = 49580-7) [facility] / [id number] 20:30:14 Test Item Value Reference Range Interpretation Comments PROTIME PATIENT (test See_Comment H [Auto mated message] code = 5964-2) The system [employer] generated this result transmitted ref erence range: 10.1 - 1 2.6 Seconds. The reference range was not used to int erpret this result as normal/abnormal . INR (test code = 6301-6) Nor mal INR <1.1; Warfarin Therap eutic range 2.0 to 3. 0 or 2.5 to 3.5, dep ending upon the indica tions. Lab Interpretation (test Abnormal code = 22237-0) [facility] / [id number] 20:30:14 Test Item Value Reference Range Interpretation Comments PROTIME PATIENT (test See_Comment H [Auto mated message] code = 5964-2) The system [employer] generated this result transmitted ref erence range: 10.1 - 1 2.6 Seconds. The reference range was not used to int erpret this result as normal/abnormal . INR (test code = 6301-6) Nor mal INR <1.1; Warfarin Therap eutic range 2.0 to 3. 0 or 2.5 to 3.5, dep ending upon the indica tions. Lab Interpretation (test Abnormal code = 79315-7) [facility] / [id number] 20:30:14 Test Item Value Reference Range Interpretation Comments PROTIME PATIENT (test See_Comment H [Auto mated message] code = 5964-2) The system [employer] generated this result transmitted ref erence range: 10.1 - 1 2.6 Seconds. The reference range was not used to int erpret this result as normal/abnormal . INR (test code = 6301-6) Nor mal INR <1.1; Warfarin Therap eutic range 2.0 to 3. 0 or 2.5 to 3.5, dep ending upon the indica tions. Lab Interpretation (test Abnormal code = 43468-0) [facility] 18:10:47 Test Item Value Reference Range Interpretation Comments POCT GLU (test code = 8421370210) 116 mg/dL 70-110 H Lab Interpretation (test code = Abnormal 18036-4) [facility] GLUCOSE (AUTOMATED)2022-02-04 18:10:47 Test Item Value Reference Range Interpretation Comments POCT GLU (test code = 7763787667) 116 mg/dL 70-110 H Lab Interpretation (test code = Abnormal 98233-8) [facility] GLUCOSE (AUTOMATED)2022-02-04 14:17:06 Test Item Value Reference Range Interpretation Comments POCT GLU (test code = 7813852565) 144 mg/dL 70-110 H Lab Interpretation (test code = Abnormal 43762-6) [facility] GLUCOSE (AUTOMATED)2022-02-04 14:17:06 Test Item Value Reference Range Interpretation Comments POCT GLU (test code = 5512993787) 144 mg/dL 70-110 H Lab Interpretation (test code = Abnormal 41995-0) [facility] GLUCOSE (AUTOMATED)2022-02-04 03:00:39 Test Item Value Reference Range Interpretation Comments POCT GLU (test code = 6550482596) 148 mg/dL 70-110 H Lab Interpretation (test code = Abnormal 02186-7) [facility] GLUCOSE (AUTOMATED)2022-02-04 03:00:39 Test Item Value Reference Range Interpretation Comments POCT GLU (test code = 8609106638) 148 mg/dL 70-110 H Lab Interpretation (test code = Abnormal 63258-3) [facility] GLUCOSE (AUTOMATED)2022-02-03 22:38:46 Test Item Value Reference Range Interpretation Comments POCT GLU (test code = 9994128645) 101 mg/dL 70-110 Lab Interpretation (test code = Normal 17761-7) [facility] GLUCOSE (AUTOMATED)2022-02-03 22:38:46 Test Item Value Reference Range Interpretation Comments POCT GLU (test code = 4995515306) 101 mg/dL 70-110 Lab Interpretation (test code = Normal 71781-6) [facility] GLUCOSE (AUTOMATED)2022-02-03 17:28:33 Test Item Value Reference Range Interpretation Comments POCT GLU (test code = 3946434652) 150 mg/dL 70-110 H Lab Interpretation (test code = Abnormal 97478-3) [facility] GLUCOSE (AUTOMATED)2022-02-03 17:28:33 Test Item Value Reference Range Interpretation Comments POCT GLU (test code = 0522143703) 150 mg/dL 70-110 H Lab Interpretation (test code = Abnormal 30730-2) [facility] GLUCOSE (AUTOMATED)2022-02-03 14:30:38 Test Item Value Reference Range Interpretation Comments POCT GLU (test code = 5325345023) 116 mg/dL 70-110 H Lab Interpretation (test code = Abnormal 98011-0) [facility] GLUCOSE (AUTOMATED)2022-02-03 14:30:38 Test Item Value Reference Range Interpretation Comments POCT GLU (test code = 9978527623) 116 mg/dL 70-110 H Lab Interpretation (test code = Abnormal 59217-8) [facility]- XR KNEE 1 OR 2 V [id number] 13:46:00 [facility] [place] [employer] SSDName: ADONIS HUMMEL : 1950 Sex: MPatient Name: ADONIS HUMMEL Unit No: [id number] EXAMS: CPT CODE: [id number] XR KNEE 1 OR 2 VRT 71561 IMAGES PROVIDED: 2 FINDINGS: Postoperative changes from right total knee arthoplasty demonstrated without evidence of immediate complication. No acute fracture is visualized. IMPRESSION: Postoperative exam as above. at 1346 Reported and signed by: Francisco Mendoza M.D. CC: Valentina Sherman MD Technologist: WANG VERAS. RT(R) Transcribed D/ (8162) DianeSLJ [facility] NAME: ADONIS HUMMEL [address] [facility] PHYS: PATOCTAVIA. Valentina Sherman MD : 1950 AGE: 70 SEX: M [place], [place] [address] LOC: Y.520 A PHONE #: [phone] EXAM DATE: 11/07/2021 STATUS: ADM IN FAX #: [phone] RAD #: D/C DT PAGE 1 Signed Report Patient Name: ADONIS HUMMEL Unit No: [id number] EXAMS: CPT CODE: [id number] XR KNEE 1 OR 2 V RT 68570 (Continued) Orig Print D/T: S: 11/08/2021 (0520) [facility] NAME: ADONIS HUMMEL [address] [facility] PHYS: CIRILO. Valentina Sherman MD : 1950 AGE: 70 SEX: M [place] [address] LOC: Y.520 A PHONE #: [phone] EXAM DATE: 11/07/2021 STATUS: ADM IN FAX #: [phone] RAD #: D/C DT PAGE 2 Signed ReportBASIC METABOLIC [id number] 07:42:00 Test Item Value Reference Range Interpretation [...] RATE (test code = GFR) mL/mi n/1.73 k1Odniqobzv Range:Healthy Adults >90 mL/min/1.73 m2 For Chronic Kidney Disease: Stage II Mild Decrease i n GFR 60-90 Stage III Moderate Decrea se in GFR 30-59 St age IV Severe Decre ase in GFR 15-29 St age V Kidney Failur e <15 CREATININE (test code 1.33 mg/dL 0.55-1.30 H = CREAT) CALCIUM (test code = 8.7 mg/dL 8.2-10.1 N CA) SPECIMEN COMMENT: POD #1HGB [id number] 06:05:00 Test Item Value Reference Range Interpretation Comments HEMOGLOBIN (test code = HGB) 10.7 g/dL 12-16 L HEMATOCRIT (test code = HCT) 32.9 % 37-47 L SPECIMEN COMMENT: POD #1basic metabolic [id number] 03:36:00 Test Item Value Reference Range Interpretation [...] performing lab: (test code = performing lab:) [facility] metabolic [id number] 03:36:00 Test Item Value Reference Range Interpretation [...] performing lab: (test code = performing lab:) [facility] Test Item Value Reference Range Interpretation Comments GLUBED (test code = GLUBED) 227 mg/dL 60-125 H [id number] 21:48:00 Test Item Value Reference Range Interpretation Comments GLUBED (test code = GLUBED) 285 mg/dL 60-125 H [id number] 21:34:00 Test Item Value Reference Range Interpretation Comments glubed (test code = glubed) 285 mg/dL 60-125 H performing lab: (test code = performing lab:) [place] [id number] 21:34:00 Test Item Value Reference Range Interpretation Comments glubed (test code = glubed) 285 mg/dL 60-125 H performing lab: (test code = performing lab:) [place] [id number] 13:13:00 Test Item Value Reference Range Interpretation Comments GLUBED (test code = GLUBED) 131 mg/dL 60-125 H [id number] 12:49:00 Test Item Value Reference Range Interpretation Comments glubed (test code = glubed) 131 mg/dL 60-125 H performing lab: (test code = performing lab:) [place] [id number] 12:49:00 Test Item Value Reference Range Interpretation Comments glubed (test code = glubed) 131 mg/dL 60-125 H performing lab: (test code = performing lab:) [facility]2021-10-05 22:05:00 Test Item Value Reference [...] be considered for these patients.DONE A T: [facility] [address] [facility], [place], [place] [address] GLYCOSYLATED HEMOGLOBIN (HA1C)2021-10-05 22:05:00 Test Item Value Reference Range Interpretation Comments GLYCOSYLATED 5.9 % 4.8-5.9 N Any condition t hat shortens HEMOGLOBIN (HA1C) erythocyte survival or (test code = GLYHGB) decreas esmean erythrocyte age (e.g., anna very from acute blood los s,hemolytic anemia) will fa lsely lower HGBA1c resultsr egardless of the method used . HGBA1c results from [facility]in [facility]bell HbSS, HbCC, and HbSc must be interpreted with cautiongiven th e pathological pr ocesses, including anemi a,increased red cell turnov er, transfusion req uirements, thatadversely i mpact HGBA1c as a marker of long-term glycemiccontrol . Alternative for ms of testing such as fructosaminesho uld be considered for these patients. COMPREHENSIVE METABOLIC [id number] 17:05:00 Test Item Value Reference Range Interpretation [...] RATE (test code = GFR) mL/mi n/1.73 x2Puifbgeja Range:Healthy Adults >90 mL/min/1.73 m2 For Chronic [...] N TOTAL (test code = ALKP) PROTHROMBIN [id number] 17:02:00 Test Item Value Reference Range Interpretation [...] Patient is on Heparin Drip? NOTHROMBOPLASTIN TIME [id number] 17:02:00 Test Item Value Reference Range Interpretation Comments PTT ACTIVATED (test 37.0 secs 26.6-34.6 H Please n ote new code = APTT) normal range. IS PATIENT ON ANTICOAGULANTS ? NHas Lab been notified if Patient is on Heparin Drip? NOCBC W/AUTO [id number] 15:09:00 Test Item Value Reference Range Interpretation [...] Interpretation Comments POCT GLU (test code = 5516864722) 161 mg/dL 70-110 H Lab Interpretation (test code = Abnormal 97637-5) [facility] GLUCOSE (AUTOMATED)2021-06-21 18:10:43 Test Item Value Reference Range Interpretation Comments POCT GLU (test code = 8465146419) 173 mg/dL 70-110 H Lab Interpretation (test code = Abnormal 20599-4) [facility] GLUCOSE (AUTOMATED)2021-06-21 13:28:30 Test Item Value Reference Range Interpretation Comments POCT GLU (test code = 3019945715) 126 mg/dL 70-110 H Lab Interpretation (test code = Abnormal 51976-6) [facility] GLUCOSE (AUTOMATED)2021-06-21 03:08:07 Test Item Value Reference Range Interpretation Comments POCT GLU (test code = 2792513674) 127 mg/dL 70-110 H Lab Interpretation (test code = Abnormal 04541-9) [facility] GLUCOSE (AUTOMATED)2021-06-20 21:12:06 Test Item Value Reference Range Interpretation Comments POCT GLU (test code = 8849167933) 142 mg/dL 70-110 H Lab Interpretation (test code = Abnormal 90928-5) [facility] GLUCOSE (AUTOMATED)2021-06-20 16:30:19 Test Item Value Reference Range Interpretation Comments POCT GLU (test code = 8835149608) 122 mg/dL 70-110 H Lab Interpretation (test code = Abnormal 07398-4) [facility] GLUCOSE (AUTOMATED)2021-06-20 13:27:27 Test Item Value Reference Range Interpretation Comments POCT GLU (test code = 4532231724) 167 mg/dL 70-110 H Lab Interpretation (test code = Abnormal 49533-4) [facility] METABOLIC PANEL (NA, K, CL, CO2, GLUCOSE, BUN, CREATININE, CA)2021-06-20 09:58:38 Test Item Value Reference Range Interpretation Comments NA (test code = 140 mmol/L 135-145 0927260082) K (test code = 3.8 mmol/L 3.5-5.0 4239716396) CL (test code = 102 mmol/L 98-108 4852539862) CO2 TOTAL (test code = 34 mmol/L 23-31 H 4696342826) AGAP (test code = 2-16 6031144829) BUN (test code = 17 mg/dL 7-23 4385900028) GLUCOSE (test code = 133 mg/dL 70-110 H 1165805262) CREATININE (test code = 0.80 mg/dL 0.60-1.25 7551844123) CALCIUM (test code = 8.5 mg/dL 8.6-10.6 L 6002224264) eGFR (test code = mL/min/1.73m2 1349025874) MILO (test code = MILO) Association of [...] tests). Lab Interpretation Abnormal (test code = 97525-6) [facility] WITH [id number] 09:43:36 Test Item Value Reference Range Interpretation [...] RDW-SD (test code = 47.0 fL 38.5-51.6 05853-8) RDW-CV (test code = 16.5 % 12.1-15.4 H 788-0) PLT (test code = See_Comment H [Automated 777-3) message] The sy stem which generated this result transmitted reference range : 150 - 328 10*3/ ?L. The reference r jay was not used to interpret this result as normal/abnormal . MPV (test code = 9.1 fL 9.8-13.0 L 23278-1) NRBC/100 WBC (test See_Comment [Automat ed code = 6241515228) message] The system which generated this result transmitted reference range : 0.0 - 10.0 /100 WBCs. The refer ence range was not u sed to interpret th is result as normal/abnormal . NRBC x10^3 (test code <0.01 See_Comment [Auto mated = 2444256972) message] The s [employer] which generated this result transmitted reference range : 10*3/?L. The reference range was not used to interpret this result as normal/abnormal . GRAN MAT (NEUT) % 57.6 % (test code = 770-8) IMM GRAN % (test code 0.10 % = 4031619001) LYMPH % (test code = 24.4 % 736-9) MONO % (test code = 11.3 % 5905-5) EOS % (test code = 6.1 % 713-8) BASO % (test code = 0.5 % 706-2) GRAN MAT x10^3(ANC) 4.27 10*3/uL 1.99-6.95 (test code = 8926158663) IMM GRAN x10^3 (test <0.03 0.00-0.06 code = 7859740713) LYMPH x10^3 (test code 1.81 10*3/uL 1.09-3.23 = 731-0) MONO x10^3 (test code 0.84 10*3/uL 0.36-1.02 = 742-7) EOS x10^3 (test code = 0.45 10*3/uL 0.06-0.53 711-2) BASO x10^3 (test code 0.04 10*3/uL 0.01-0.09 = 704-7) Lab Interpretation Abnormal (test code = 76459-4) [facility] GLUCOSE (AUTOMATED)2021-06-20 02:43:28 Test Item Value Reference Range Interpretation Comments POCT GLU (test code = 6957806048) 129 mg/dL 70-110 H Lab Interpretation (test code = Abnormal 83401-3) [facility] GLUCOSE (AUTOMATED)2021-06-19 21:47:17 Test Item Value Reference Range Interpretation Comments POCT GLU (test code = 6465906883) 252 mg/dL 70-110 H Lab Interpretation (test code = Abnormal 85033-9) [facility] GLUCOSE (AUTOMATED)2021-06-19 21:47:17 Test Item Value Reference Range Interpretation Comments POCT GLU (test code = 7256950702) 252 mg/dL 70-110 H Lab Interpretation (test code = Abnormal 32350-2) [facility] 1430 2021-06-19 20:48:57 Test Item Value Reference Range Interpretation Comments VANCO TROUGH (test code 8.0 ug/mL 10.0-20.0 L = 7123124099) MILO (test code = MILO) Toxic Range: ?>20 ug/mL 15-20 ug/mL is recommended for severe infection or when Vancomycin KIERAN is greater than or equal to 2. Lab Interpretation (test Abnormal code = 66774-5) [facility] 1430 2021-06-19 20:48:57 Test Item Value Reference Range Interpretation Comments VANCO TROUGH (test code 8.0 ug/mL 10.0-20.0 L = 8931009339) MILO (test code = MILO) Toxic Range: ?>20 ug/mL 15-20 ug/mL is recommended for severe infection or when Vancomycin KIERAN is greater than or equal to 2. Lab Interpretation (test Abnormal code = 73883-9) [facility] GLUCOSE (AUTOMATED)2021-06-19 16:53:39 Test Item Value Reference Range Interpretation Comments POCT GLU (test code = 5240739999) 145 mg/dL 70-110 H Lab Interpretation (test code = Abnormal 95370-7) [facility] GLUCOSE (AUTOMATED)2021-06-19 16:53:39 Test Item Value Reference Range Interpretation Comments POCT GLU (test code = 1366496860) 145 mg/dL 70-110 H Lab Interpretation (test code = Abnormal 11008-3) [facility] GLUCOSE (AUTOMATED)2021-06-19 13:09:01 Test Item Value Reference Range Interpretation Comments POCT GLU (test code = 2347827432) 138 mg/dL 70-110 H Lab Interpretation (test code = Abnormal 26708-7) [facility] GLUCOSE (AUTOMATED)2021-06-19 13:09:01 Test Item Value Reference Range Interpretation Comments POCT GLU (test code = 5233164951) 138 mg/dL 70-110 H Lab Interpretation (test code = Abnormal 83777-9) [facility] Metabolic Panel (NA, K, CL, CO2, GLUCOSE, BUN, CREATININE, CA)2021-06-19 10:00:53 Test Item Value Reference Range Interpretation Comments NA (test code = 139 mmol/L 135-145 8921950186) K (test code = 4.0 mmol/L 3.5-5.0 Slight 2691485643) hemolysis CL (test code = 100 mmol/L 98-108 3008794833) CO2 TOTAL (test code 31 mmol/L 23-31 = 9297415274) AGAP (test code = 2-16 7800170438) BUN (test code = 15 mg/dL 7-23 Slight 4234426590) hemolysis GLUCOSE (test code = 166 mg/dL 70-110 H 1274889647) CREATININE (test code 0.72 mg/dL 0.60-1.25 = 2328023255) CALCIUM (test code = 8.3 mg/dL 8.6-10.6 L 6070185606) eGFR (test code = mL/min/1.73m2 9579511839) MILO (test code = MILO) Association of [...] tests). Lab Interpretation Abnormal (test code = 65001-8) [facility] Metabolic Panel (NA, K, CL, CO2, GLUCOSE, BUN, CREATININE, CA)2021-06-19 10:00:53 Test Item Value Reference Range Interpretation Comments NA (test code = 139 mmol/L 135-145 5054178918) K (test code = 4.0 mmol/L 3.5-5.0 Slight 5792565944) hemolysis CL (test code = 100 mmol/L 98-108 0594852127) CO2 TOTAL (test code 31 mmol/L 23-31 = 9807989749) AGAP (test code = 2-16 8620773772) BUN (test code = 15 mg/dL 7-23 Slight 3582835498) hemolysis GLUCOSE (test code = 166 mg/dL 70-110 H 4185012507) CREATININE (test code 0.72 mg/dL 0.60-1.25 = 9652558511) CALCIUM (test code = 8.3 mg/dL 8.6-10.6 L 0969879261) eGFR (test code = mL/min/1.73m2 7048070769) MILO (test code = MILO) Association of [...] tests). Lab Interpretation Abnormal (test code = 08154-0) [facility] with [id number] 09:51:10 Test Item Value Reference Range Interpretation [...] RDW-SD (test code = 46.8 fL 38.5-51.6 41954-9) RDW-CV (test code = 16.4 % 12.1-15.4 H 788-0) PLT (test code = See_Comment H [Automated 777-3) message] The sy stem which generated this result transmitted reference range : 150 - 328 10*3/ ?L. The reference r jay was not used to interpret this result as normal/abnormal . MPV (test code = 9.4 fL 9.8-13.0 L 50143-0) NRBC/100 WBC (test See_Comment [Automat ed code = 2405562280) message] The system which generated this result transmitted reference range : 0.0 - 10.0 /100 WBCs. The refer ence range was not u sed to interpret th is result as normal/abnormal . NRBC x10^3 (test code <0.01 See_Comment [Auto mated = 3164518375) message] The s ystem which generated this result transmitted reference range : 10*3/?L. The reference range was not used to interpret this result as normal/abnormal . GRAN MAT (NEUT) % 64.2 % (test code = 770-8) IMM GRAN % (test code 0.60 % = 3724020166) LYMPH % (test code = 21.1 % 736-9) MONO % (test code = 11.1 % 5905-5) EOS % (test code = 2.5 % 713-8) BASO % (test code = 0.5 % 706-2) GRAN MAT x10^3(ANC) 5.32 10*3/uL 1.99-6.95 (test code = 5096145443) IMM GRAN x10^3 (test 0.05 10*3/uL 0.00-0.06 code = 5860735974) LYMPH x10^3 (test code 1.75 10*3/uL 1.09-3.23 = 731-0) MONO x10^3 (test code 0.92 10*3/uL 0.36-1.02 = 742-7) EOS x10^3 (test code = 0.21 10*3/uL 0.06-0.53 711-2) BASO x10^3 (test code 0.04 10*3/uL 0.01-0.09 = 704-7) Lab Interpretation Abnormal (test code = 42402-0) [facility] with [id number] 09:51:10 Test Item Value Reference Range Interpretation Comments WBC (test code = See_Comment [Automated 6690-2) message] The sy stem which generated this result transmitted reference range : 4.20 - 10.70 10*3/?L. The reference range was not used to interpret this result as normal/abnormal . RBC (test code = See_Comment L [Automated 309-8) message] The sy stem which generated this [...] RDW-SD (test code = 46.8 fL 38.5-51.6 90653-0) RDW-CV (test code = 16.4 % 12.1-15.4 H 788-0) PLT (test code = See_Comment H [Automated 777-3) message] The sy stem which generated this result transmitted reference range : 150 - 328 10*3/ ?L. The reference r jay was not used to interpret this result as normal/abnormal . MPV (test code = 9.4 fL 9.8-13.0 L 72906-2) NRBC/100 WBC (test See_Comment [Automat ed code = 1597848142) message] The system which generated this result transmitted reference range : 0.0 - 10.0 /100 WBCs. The refer ence range was not u sed to interpret th is result as normal/abnormal . NRBC x10^3 (test code <0.01 See_Comment [Auto mated = 2412945735) message] The s ystem which generated this result transmitted reference range : 10*3/?L. The reference range was not used to interpret this result as normal/abnormal . GRAN MAT (NEUT) % 64.2 % (test code = 770-8) IMM GRAN % (test code 0.60 % = 6374237522) LYMPH % (test code = 21.1 % 736-9) MONO % (test code = 11.1 % 5905-5) EOS % (test code = 2.5 % 713-8) BASO % (test code = 0.5 % 706-2) GRAN MAT x10^3(ANC) 5.32 10*3/uL 1.99-6.95 (test code = 6039477931) IMM GRAN x10^3 (test 0.05 10*3/uL 0.00-0.06 code = 8067624086) LYMPH x10^3 (test code 1.75 10*3/uL 1.09-3.23 = 731-0) MONO x10^3 (test code 0.92 10*3/uL 0.36-1.02 = 742-7) EOS x10^3 (test code = 0.21 10*3/uL 0.06-0.53 711-2) BASO x10^3 (test code 0.04 10*3/uL 0.01-0.09 = 704-7) Lab Interpretation Abnormal (test code = 55181-2) [facility] GLUCOSE (AUTOMATED)2021-06-19 00:57:14 Test Item Value Reference Range Interpretation Comments POCT GLU (test code = 5348309831) 181 mg/dL 70-110 H Lab Interpretation (test code = Abnormal 85394-3) [facility] GLUCOSE (AUTOMATED)2021-06-19 00:57:14 Test Item Value Reference Range Interpretation Comments POCT GLU (test code = 5239977106) 181 mg/dL 70-110 H Lab Interpretation (test code = Abnormal 85099-7) [facility] FLUID MANUAL [id number] 23:14:46 Test Item Value Reference Range Interpretation Comments BF SEGS% (test code = 09788-0) 89 % 0-25 H BF LYMPHS% (test code = 57394-9) 8 % BF MACROPHAGE% (test code = 97792-2) 3 % BF #CELLS CNTD (test code = cells/uL 7053475587) Lab Interpretation (test code = Abnormal 51665-5) [facility] FLUID MANUAL [id number] 23:14:46 Test Item Value Reference Range Interpretation Comments BF SEGS% (test code = 15892-1) 89 % 0-25 H BF LYMPHS% (test code = 81441-0) 8 % BF MACROPHAGE% (test code = 44312-0) 3 % BF #CELLS CNTD (test code = cells/uL 2313372178) Lab Interpretation (test code = Abnormal 36135-9) [facility] FLUID DIRECT [id number] 23:14:16 Test Item Value Reference Range Interpretation Comments BF COLOR (test code = Bloody 5728307338) TURBIDITY (test code = Turbid 9731099734) BF WBC Count (test code See_Comment [Au tomated message] The = 3391511662) system which g enerated this result tra nsmitted reference range : 0 - 150 /?L. The refere nce range was not used to interpret this result as normal/abnormal . BF RBC Count (test code See_Comment [Au tomated message] The = 8406543200) system which g enerated this result tra nsmitted reference range : /?L. The reference r jay was not used to int erpret this result as normal/abnormal . [facility] FLUID DIRECT [id number] 23:14:16 Test Item Value Reference Range Interpretation Comments BF COLOR (test code = Bloody 2694536583) TURBIDITY (test code = Turbid 4806358360) BF WBC Count (test code See_Comment [Au tomated message] The = 8962167622) system which g enerated this result tra nsmitted reference range : 0 - 150 /?L. The refere nce range was not used to interpret this result as normal/abnormal . BF RBC Count (test code See_Comment [Au tomated message] The = 7483792427) system which g enerated this result tra nsmitted reference range : /?L. The reference r jay was not used to int erpret this result as normal/abnormal . [facility] GLUCOSE (AUTOMATED)2021-06-18 22:29:05 Test Item Value Reference Range Interpretation Comments POCT GLU (test code = 4279744113) 98 mg/dL 70-110 Lab Interpretation (test code = Normal 17388-1) [facility] GLUCOSE (AUTOMATED)2021-06-18 22:29:05 Test Item Value Reference Range Interpretation Comments POCT GLU (test code = 8154401609) 98 mg/dL 70-110 Lab Interpretation (test code = Normal 15625-4) [facility] GLUCOSE (AUTOMATED)2021-06-18 17:39:04 Test Item Value Reference Range Interpretation Comments POCT GLU (test code = 1531351835) 88 mg/dL 70-110 Lab Interpretation (test code = Normal 04154-7) [facility] GLUCOSE (AUTOMATED)2021-06-18 17:39:04 Test Item Value Reference Range Interpretation Comments POCT GLU (test code = 1607574668) 88 mg/dL 70-110 Lab Interpretation (test code = Normal 77530-6) [facility] GLUCOSE (AUTOMATED)2021-06-18 12:59:25 Test Item Value Reference Range Interpretation Comments POCT GLU (test code = 8093360275) 85 mg/dL 70-110 Lab Interpretation (test code = Normal 84633-7) [facility] GLUCOSE (AUTOMATED)2021-06-18 12:59:25 Test Item Value Reference Range Interpretation Comments POCT GLU (test code = 0210399524) 85 mg/dL 70-110 Lab Interpretation (test code = Normal 12727-1) [facility] GLUCOSE (AUTOMATED)2021-06-18 06:45:29 Test Item Value Reference Range Interpretation Comments POCT GLU (test code = 3918025799) 120 mg/dL 70-110 H Lab Interpretation (test code = Abnormal 98078-1) [facility] GLUCOSE (AUTOMATED)2021-06-18 06:45:29 Test Item Value Reference Range Interpretation Comments POCT GLU (test code = 0232617656) 120 mg/dL 70-110 H Lab Interpretation (test code = Abnormal 53746-7) [id number] 06:09:58 Test Item Value Reference Range Interpretation Comments URIC ACID (test code = 1281935548) 6.4 mg/dL 3.6-8.0 Lab Interpretation (test code = Normal 14473-5) [facility] [id number] 06:09:58 Test Item Value Reference Range Interpretation Comments URIC ACID (test code = 8674060363) 6.4 mg/dL 3.6-8.0 Lab Interpretation (test code = Normal 59837-5) [facility]-REACTIVE [id number] 05:01:18 Test Item Value Reference Range Interpretation Comments CRP (test code = 8377615276) 6.7 mg/dL <1.0 H Lab Interpretation (test code = Abnormal 40991-1) [facility]-REACTIVE [id number] 05:01:18 Test Item Value Reference Range Interpretation Comments CRP (test code = 4832171347) 6.7 mg/dL <1.0 H Lab Interpretation (test code = Abnormal 89828-0) [facility] METABOLIC PANEL (NA, K, CL, CO2, GLUCOSE, BUN, CREATININE, CA)2021-06-18 04:12:16 Test Item Value Reference Range Interpretation Comments NA (test code = 138 mmol/L 135-145 1369977937) K (test code = 4.0 mmol/L 3.5-5.0 5700301008) CL (test code = 104 mmol/L 98-108 9094024072) CO2 TOTAL (test code = 28 mmol/L 23-31 1969831353) AGAP (test code = 2-16 1625891211) BUN (test code = 15 mg/dL 7-23 1647893044) GLUCOSE (test code = 185 mg/dL 70-110 H 1227934417) CREATININE (test code = 0.91 mg/dL 0.60-1.25 5130253586) CALCIUM (test code = 8.0 mg/dL 8.6-10.6 L 9758756971) eGFR (test code = mL/min/1.73m2 1790979519) MILO (test code = MILO) Association of [...] tests). Lab Interpretation Abnormal (test code = 27279-8) [facility] METABOLIC PANEL (NA, K, CL, CO2, GLUCOSE, BUN, CREATININE, CA)2021-06-18 04:12:16 Test Item Value Reference Range Interpretation Comments NA (test code = 138 mmol/L 135-145 3749075833) K (test code = 4.0 mmol/L 3.5-5.0 6949040965) CL (test code = 104 mmol/L 98-108 8057708285) CO2 TOTAL (test code = 28 mmol/L 23-31 9640767087) AGAP (test code = 2-16 4257512196) BUN (test code = 15 mg/dL 7-23 0483248455) GLUCOSE (test code = 185 mg/dL 70-110 H 9224936065) CREATININE (test code = 0.91 mg/dL 0.60-1.25 8542051147) CALCIUM (test code = 8.0 mg/dL 8.6-10.6 L 4611049060) eGFR (test code = mL/min/1.73m2 9227434647) MILO (test code = MILO) Association of [...] tests). Lab Interpretation Abnormal (test code = 00761-1) [facility] [id number] 04:04:30 Test Item Value Reference Range Interpretation Comments ESR (test code = See_Comment H [Automated message] 9786272136) The system [employer] generated this result transmitted ref erence range: 0 - 15 m m/HR. The reference r jay was not used to interpret this result as normal/abnor mal. Lab Interpretation (test Abnormal code = 45623-2) [facility] [id number] 04:04:30 Test Item Value Reference Range Interpretation Comments ESR (test code = See_Comment H [Automated message] 0480232309) The system [employer] generated this result transmitted ref erence range: 0 - 15 m m/HR. The reference r jay was not used to interpret this result as normal/abnor mal. Lab Interpretation (test Abnormal code = 43508-0) [facility] WITH [id number] 03:59:38 Test Item Value Reference Range Interpretation [...] RDW-SD (test code = 46.5 fL 38.5-51.6 66077-2) RDW-CV (test code = 16.2 % 12.1-15.4 H 788-0) PLT (test code = See_Comment H [Automated 777-3) message] The sy stem which generated this result transmitted reference range : 150 - 328 10*3/ ?L. The reference r jay was not used to interpret this result as normal/abnormal . MPV (test code = 9.2 fL 9.8-13.0 L 54935-7) NRBC/100 WBC (test See_Comment [Automat ed code = 3333055344) message] The system which generated this result transmitted reference range : 0.0 - 10.0 /100 WBCs. The refer ence range was not u sed to interpret th is result as normal/abnormal . NRBC x10^3 (test code <0.01 See_Comment [Auto mated = 0185560304) message] The s ystem which generated this result transmitted reference range : 10*3/?L. The reference range was not used to interpret this result as normal/abnormal . GRAN MAT (NEUT) % 60.9 % (test code = 770-8) IMM GRAN % (test code 0.20 % = 8478594173) LYMPH % (test code = 21.7 % 736-9) MONO % (test code = 11.2 % 5905-5) EOS % (test code = 5.4 % 713-8) BASO % (test code = 0.6 % 706-2) GRAN MAT x10^3(ANC) 5.32 10*3/uL 1.99-6.95 (test code = 5897159761) IMM GRAN x10^3 (test <0.03 0.00-0.06 code = 0559202244) LYMPH x10^3 (test code 1.90 10*3/uL 1.09-3.23 = 731-0) MONO x10^3 (test code 0.98 10*3/uL 0.36-1.02 = 742-7) EOS x10^3 (test code = 0.47 10*3/uL 0.06-0.53 711-2) BASO x10^3 (test code 0.05 10*3/uL 0.01-0.09 = 704-7) Lab Interpretation Abnormal (test code = 35244-7) [facility] WITH [id number] 03:59:38 Test Item Value Reference Range Interpretation [...] RDW-SD (test code = 46.5 fL 38.5-51.6 06302-0) RDW-CV (test code = 16.2 % 12.1-15.4 H 788-0) PLT (test code = See_Comment H [Automated 777-3) message] The sy stem which generated this result transmitted reference range : 150 - 328 10*3/ ?L. The reference r jay was not used to interpret this result as normal/abnormal . MPV (test code = 9.2 fL 9.8-13.0 L 32262-7) NRBC/100 WBC (test See_Comment [Automat ed code = 3440976094) message] The system which generated this result transmitted reference range : 0.0 - 10.0 /100 WBCs. The refer ence range was not u sed to interpret th is result as normal/abnormal . NRBC x10^3 (test code <0.01 See_Comment [Auto mated = 4515168194) message] The s ystem which generated this result transmitted reference range : 10*3/?L. The reference range was not used to interpret this result as normal/abnormal . GRAN MAT (NEUT) % 60.9 % (test code = 770-8) IMM GRAN % (test code 0.20 % = 8113266290) LYMPH % (test code = 21.7 % 736-9) MONO % (test code = 11.2 % 5905-5) EOS % (test code = 5.4 % 713-8) BASO % (test code = 0.6 % 706-2) GRAN MAT x10^3(ANC) 5.32 10*3/uL 1.99-6.95 (test code = 4537018683) IMM GRAN x10^3 (test <0.03 0.00-0.06 code = 6065368722) LYMPH x10^3 (test code 1.90 10*3/uL 1.09-3.23 = 731-0) MONO x10^3 (test code 0.98 10*3/uL 0.36-1.02 = 742-7) EOS x10^3 (test code = 0.47 10*3/uL 0.06-0.53 711-2) BASO x10^3 (test code 0.05 10*3/uL 0.01-0.09 = 704-7) Lab Interpretation Abnormal (test code = 18430-8) [facility] 2021-05-26 18:07:01 Test Item Value Reference Range Interpretation Comments Misc fluid type (test Synovial code = 76298-0) Color, fluid (test Red code = 6824-7) Appearance, fluid Cloudy A (test code = 9335-1) RBC, fluid (test code SEE COMMENT See_Comment Many R BCs = 25978-2) seenUnable to quantitate due to fibrinous speci men Footnote------- -- [Automated message] The system which generated this result transmit cesar reference range : /CMM. The reference range was not used to interpret this result as normal/abnormal . Nucleated cells, SEE COMMENT See_Comment Many WBCs fluid ([place] = [place] [address]-4) quantitate due to fibrinous specimenFootnot e-- ------- [Automa cesar message] The system which generated this result transmit cesar reference range : /CMM. The reference range was not used to interpret this result as normal/abnormal . Fluid mononuclear Diff to follow cell (test code = 1407) Neutrophils, fluid 85 % (test code = 05415-6) Lymphocytes, fluid 10 % (test code = 81896-7) Eosinophils, fluid 1 % (test code = 32641-8) Macrophages, fluid 5 % Synovial Fluid: (test code = 52348-7) WBC 0- 150/mm3 RBC 0-1/mm3 Diferential: Le ss than 25% Neutrophils. Lymphocytes and monocytes/histo cyt es predominatePeri car dial, Peritonea l andPleural Flui d: WBC <500/mm3 RB C <100/mm3 Diferential: Le ss than 25% Neutrophils. Lymphocytes, macrophages and mesothelial michael l predominate Lab Interpretation Abnormal (test code = 41872-9) [facility] [id number] 18:07:01 Test Item Value Reference Range Interpretation Comments Misc fluid type (test Synovial code = 51939-4) Color, fluid (test Red code = 6824-7) Appearance, fluid Cloudy A (test code = 9335-1) RBC, fluid (test code SEE COMMENT See_Comment Many R BCs = 83124-1) seenUnable to quantitate due to fibrinous speci men Footnote------- -- [Automated message] The system which generated this result transmit cesar reference range : /CMM. The reference range was not used to interpret this result as normal/abnormal . Nucleated cells, SEE COMMENT See_Comment Many WBCs fluid (test [place] = [place] [address]-0) quantitate due to fibrinous specimenFootnot e-- ------- [Automa cesar message] The system which generated this result transmit cesar reference range : /CMM. The reference range was not used to interpret this result as normal/abnormal . Fluid mononuclear Diff to follow cell (test code = 1407) Neutrophils, fluid 85 % (test code = 72499-7) Lymphocytes, fluid 10 % (test code = 62495-4) Eosinophils, fluid 1 % (test code = 27998-5) Macrophages, fluid 5 % Synovial Fluid: (test code = 12628-8) WBC 0- 150/mm3 RBC 0-1/mm3 Diferential: Le ss than 25% Neutrophils. Lymphocytes and monocytes/histo cyt es predominatePeri car dial, Peritonea l andPleural Flui d: WBC <500/mm3 RB C <100/mm3 Diferential: Le ss than 25% Neutrophils. Lymphocytes, macrophages and mesothelial michael l predominate Lab Interpretation Abnormal (test code = 05377-9) [facility], [facility] [id number] [facility]:07:01 Test Item Value Reference Range Interpretation Comments Misc fluid type (test Synovial code = 44043-3) Color, fluid (test Red code = 6824-7) Appearance, fluid Cloudy A (test code = 9335-1) RBC, fluid (test code SEE COMMENT See_Comment Many R BCs = 83006-0) seenUnable to quantitate due to fibrinous speci men Footnote------- -- [Automated message] The system which generated this result transmit cesar reference range : /CMM. The reference range was not used to interpret this result as normal/abnormal . Nucleated cells, SEE COMMENT See_Comment Many WBCs fluid (test code = [place] [address]-3) quantitate due to fibrinous specimenFootnot e-- ------- [Automa cesar message] The system which generated this result transmit cesar reference range : /CMM. The reference range was not used to interpret this result as normal/abnormal . Fluid mononuclear Diff to follow cell (test code = 1407) Neutrophils, fluid 85 % (test code = 51390-4) Lymphocytes, fluid 10 % (test code = 79388-1) Eosinophils, fluid 1 % (test code = 19679-0) Macrophages, fluid 5 % Synovial Fluid: (test code = 13516-0) WBC 0- 150/mm3 RBC 0-1/mm3 Diferential: Le ss than 25% Neutrophils. Lymphocytes and monocytes/histo cyt es predominatePeri car dial, Peritonea l andPleural Flui d: WBC <500/mm3 RB C <100/mm3 Diferential: Le ss than 25% Neutrophils. Lymphocytes, macrophages and mesothelial michael l predominate Lab Interpretation Abnormal (test code = 50696-8) [facility] [id number] 18:07:01 Test Item Value Reference Range Interpretation Comments Misc fluid type (test Synovial code = 01227-1) Color, fluid (test Red code = 6824-7) Appearance, fluid Cloudy A (test code = 9335-1) RBC, fluid (test code SEE COMMENT See_Comment Many R BCs = 16907-5) seenUnable to quantitate due to fibrinous speci men Footnote------- -- [Automated message] The system which generated this result transmit csear reference range : /CMM. The reference range was not used to interpret this result as normal/abnormal . Nucleated cells, SEE COMMENT See_Comment Many WBCs fluid (test code = [place] [address]-2) quantitate due to fibrinous specimenFootnot e-- ------- [Automa cesar message] The system which generated this result transmit cesar reference range : /CMM. The reference range was not used to interpret this result as normal/abnormal . Fluid mononuclear Diff to follow cell (test code = 1407) Neutrophils, fluid 85 % (test code = 93965-2) Lymphocytes, fluid 10 % (test code = 89572-9) Eosinophils, fluid 1 % (test code = 27957-0) Macrophages, fluid 5 % Synovial Fluid: (test code = 28072-3) WBC 0- 150/mm3 RBC 0-1/mm3 Diferential: Le ss than 25% Neutrophils. Lymphocytes and monocytes/histo cyt es predominatePeri car dial, Peritonea l andPleural Flui d: WBC <500/mm3 RB C <100/mm3 Diferential: Le ss than 25% Neutrophils. Lymphocytes, macrophages and mesothelial michael l predominate Lab Interpretation Abnormal (test code = 42440-9) [facility] [id number] 18:07:01 Test Item Value Reference Range Interpretation Comments Misc fluid type (test Synovial code = 47231-4) Color, fluid (test Red code = 6824-7) Appearance, fluid Cloudy A (test code = 9335-1) RBC, fluid (test code SEE COMMENT See_Comment Many R BCs = 29458-4) seenUnable to quantitate due to fibrinous speci men Footnote------- -- [Automated message] The system which generated this result transmit cesar reference range : /CMM. The reference range was not used to interpret this result as normal/abnormal . Nucleated cells, SEE COMMENT See_Comment Many WBCs fluid (test [place] = [place] [address]-1) quantitate due to fibrinous specimenFootnot e-- ------- [Automa cesar message] The system which generated this result transmit cesar reference range : /CMM. The reference range was not used to interpret this result as normal/abnormal . Fluid mononuclear Diff to follow cell (test code = 1407) Neutrophils, fluid 85 % (test code = 93396-7) Lymphocytes, fluid 10 % (test code = 46819-0) Eosinophils, fluid 1 % (test code = 76442-2) Macrophages, fluid 5 % Synovial Fluid: (test code = 53005-6) WBC 0- 150/mm3 RBC 0-1/mm3 Diferential: Le ss than 25% Neutrophils. Lymphocytes and monocytes/histo cyt es predominatePeri car dial, Peritonea l andPleural Flui d: WBC <500/mm3 RB C <100/mm3 Diferential: Le ss than 25% Neutrophils. Lymphocytes, macrophages and mesothelial michael l predominate Lab Interpretation Abnormal (test code = 88017-0) [facility] [id number] 18:07:01 Test Item Value Reference Range Interpretation Comments Misc fluid type (test Synovial code = 03920-1) Color, fluid (test Red code = 6824-7) Appearance, fluid Cloudy A (test code = 9335-1) RBC, fluid (test code SEE COMMENT See_Comment Many R BCs = 76280-6) seenUnable to quantitate due to fibrinous speci men Footnote------- -- [Automated message] The system which generated this result transmit cesar reference range : /CMM. The reference range was not used to interpret this result as normal/abnormal . Nucleated cells, SEE COMMENT See_Comment Many WBCs fluid (test code = [place] [address]-8) quantitate due to fibrinous specimenFootnot e-- ------- [Automa cesar message] The system which generated this result transmit cesar reference range : /CMM. The reference range was not used to interpret this result as normal/abnormal . Fluid mononuclear Diff to follow cell (test code = 1407) Neutrophils, fluid 85 % (test code = 59994-0) Lymphocytes, fluid 10 % (test code = 21800-5) Eosinophils, fluid 1 % (test code = 76782-5) Macrophages, fluid 5 % Synovial Fluid: (test code = 78041-3) WBC 0- 150/mm3 RBC 0-1/mm3 Diferential: Le ss than 25% Neutrophils. Lymphocytes and monocytes/histo cyt es predominatePeri car dial, Peritonea l andPleural Flui d: WBC <500/mm3 RB C <100/mm3 Diferential: Le ss than 25% Neutrophils. Lymphocytes, macrophages and mesothelial michael l predominate Lab Interpretation Abnormal (test code = 39742-4) [facility] [id number] 18:07:01 Test Item Value Reference Range Interpretation Comments Misc fluid type (test Synovial code = 01716-0) Color, fluid (test Red code = 6824-7) Appearance, fluid Cloudy A (test code = 9335-1) RBC, fluid (test code SEE COMMENT See_Comment Many R BCs = 03490-6) seenUnable to quantitate due to fibrinous speci men Footnote------- -- [Automated message] The system which generated this result transmit cesar reference range : /CMM. The reference range was not used to interpret this result as normal/abnormal . Nucleated cells, SEE COMMENT See_Comment Many WBCs fluid (test code = [place] [address]-5) quantitate due to fibrinous specimenFootnot e-- ------- [Automa cesar message] The system which generated this result transmit cesar reference range : /CMM. The reference range was not used to interpret this result as normal/abnormal . Fluid mononuclear Diff to follow cell (test code = 1407) Neutrophils, fluid 85 % (test code = 73503-3) Lymphocytes, fluid 10 % (test code = 12781-2) Eosinophils, fluid 1 % (test code = 41454-9) Macrophages, fluid 5 % Synovial Fluid: (test code = 57578-3) WBC 0- 150/mm3 RBC 0-1/mm3 Diferential: Le ss than 25% Neutrophils. Lymphocytes and monocytes/histo cyt es predominatePeri car dial, Peritonea l andPleural Flui d: WBC <500/mm3 RB C <100/mm3 Diferential: Le ss than 25% Neutrophils. Lymphocytes, macrophages and mesothelial michael l predominate Lab Interpretation Abnormal (test code = 23261-0) [facility] [id number] 18:07:01 Test Item Value Reference Range Interpretation Comments Misc fluid type (test Synovial code = 73988-0) Color, fluid (test Red code = 6824-7) Appearance, fluid Cloudy A (test code = 9335-1) RBC, fluid (test code SEE COMMENT See_Comment Many R BCs = 14862-1) seenUnable to quantitate due to fibrinous speci men Footnote------- -- [Automated message] The system which generated this result transmit cesar reference range : /CMM. The reference range was not used to interpret this result as normal/abnormal . Nucleated cells, SEE COMMENT See_Comment Many WBCs fluid (test code = [place] [address]-4) quantitate due to fibrinous specimenFootnot e-- ------- [Automa cesar message] The system which generated this result transmit cesar reference range : /CMM. The reference range was not used to interpret this result as normal/abnormal . Fluid mononuclear Diff to follow cell (test code = 1407) Neutrophils, fluid 85 % (test code = 21855-9) Lymphocytes, fluid 10 % (test code = 61655-1) Eosinophils, fluid 1 % (test code = 67647-3) Macrophages, fluid 5 % Synovial Fluid: (test code = 53353-2) WBC 0- 150/mm3 RBC 0-1/mm3 Diferential: Le ss than 25% Neutrophils. Lymphocytes and monocytes/histo cyt es predominatePeri car dial, Peritonea l andPleural Flui d: WBC <500/mm3 RB C <100/mm3 Diferential: Le ss than 25% Neutrophils. Lymphocytes, macrophages and mesothelial michael l predominate Lab Interpretation Abnormal (test code = 58190-5) [facility] [id number] 18:07:01 Test Item Value Reference Range Interpretation Comments Misc fluid type (test Synovial code = 43408-1) Color, fluid (test Red code = 6824-7) Appearance, fluid Cloudy A (test code = 9335-1) RBC, fluid (test code SEE COMMENT See_Comment Many R BCs = 96241-1) seenUnable to quantitate due to fibrinous speci men Footnote------- -- [Automated message] The system which generated this result transmit cesar reference range : /CMM. The reference range was not used to interpret this result as normal/abnormal . Nucleated cells, SEE COMMENT See_Comment Many WBCs fluid (test code = [place] [address]-1) quantitate due to fibrinous specimenFootnot e-- ------- [Automa cesar message] The system which generated this result transmit cesar reference range : /CMM. The reference range was not used to interpret this result as normal/abnormal . Fluid mononuclear Diff to follow cell (test code = 1407) Neutrophils, fluid 85 % (test code = 52573-6) Lymphocytes, fluid 10 % (test code = 11081-9) Eosinophils, fluid 1 % (test code = 68243-9) Macrophages, fluid 5 % Synovial Fluid: (test code = 95722-6) WBC 0- 150/mm3 RBC 0-1/mm3 Diferential: Le ss than 25% Neutrophils. Lymphocytes and monocytes/histo cyt es predominatePeri car dial, Peritonea l andPleural Flui d: WBC <500/mm3 RB C <100/mm3 Diferential: Le ss than 25% Neutrophils. Lymphocytes, macrophages and mesothelial michael l predominate Lab Interpretation Abnormal (test code = 48145-2) [facility] [id number] 18:07:01 Test Item Value Reference Range Interpretation Comments Misc fluid type (test Synovial code = 48970-0) Color, fluid (test Red code = 6824-7) Appearance, fluid Cloudy A (test code = 9335-1) RBC, fluid (test code SEE COMMENT See_Comment Many R BCs = 14962-4) seenUnable to quantitate due to fibrinous speci men Footnote------- -- [Automated message] The system which generated this result transmit cesar reference range : /CMM. The reference range was not used to interpret this result as normal/abnormal . Nucleated cells, SEE COMMENT See_Comment Many WBCs fluid (test code = [place] [address]-9) quantitate due to fibrinous specimenFootnot e-- ------- [Automa cesar message] The system which generated this result transmit cesar reference range : /CMM. The reference range was not used to interpret this result as normal/abnormal . Fluid mononuclear Diff to follow cell (test code = 1407) Neutrophils, fluid 85 % (test code = 38520-7) Lymphocytes, fluid 10 % (test code = 98011-7) Eosinophils, fluid 1 % (test code = 64501-5) Macrophages, fluid 5 % Synovial Fluid: (test code = 78103-6) WBC 0- 150/mm3 RBC 0-1/mm3 Diferential: Le ss than 25% Neutrophils. Lymphocytes and monocytes/histo cyt es predominatePeri car dial, Peritonea l andPleural Flui d: WBC <500/mm3 RB C <100/mm3 Diferential: Le ss than 25% Neutrophils. Lymphocytes, macrophages and mesothelial michael l predominate Lab Interpretation Abnormal (test code = 18419-9) [facility] [id number] 18:07:01 Test Item Value Reference Range Interpretation Comments Misc fluid type (test Synovial code = 56337-2) Color, fluid (test Red code = 6824-7) Appearance, fluid Cloudy A (test code = 9335-1) RBC, fluid (test code SEE COMMENT See_Comment Many R BCs = 44474-4) seenUnable to quantitate due to fibrinous speci men Footnote------- -- [Automated message] The system which generated this result transmit cesar reference range : /CMM. The reference range was not used to interpret this result as normal/abnormal . Nucleated cells, SEE COMMENT See_Comment Many WBCs fluid (test [place] = [place] [address]-6) quantitate due to fibrinous specimenFootnot e-- ------- [Automa cesar message] The system which generated this result transmit cesar reference range : /CMM. The reference range was not used to interpret this result as normal/abnormal . Fluid mononuclear Diff to follow cell (test code = 1407) Neutrophils, fluid 85 % (test code = 04141-3) Lymphocytes, fluid 10 % (test code = 31997-3) Eosinophils, fluid 1 % (test code = 67143-7) Macrophages, fluid 5 % Synovial Fluid: (test code = 06734-6) WBC 0- 150/mm3 RBC 0-1/mm3 Diferential: Le ss than 25% Neutrophils. Lymphocytes and monocytes/histo cyt es predominatePeri car dial, Peritonea l andPleural Flui d: WBC <500/mm3 RB C <100/mm3 Diferential: Le ss than 25% Neutrophils. Lymphocytes, macrophages and mesothelial michael l predominate Lab Interpretation Abnormal (test code = 22366-4) [facility] [id number] 18:07:01 Test Item Value Reference Range Interpretation Comments Misc fluid type (test Synovial code = 13045-1) Color, fluid (test Red code = 6824-7) Appearance, fluid Cloudy A (test code = 9335-1) RBC, fluid (test code SEE COMMENT See_Comment Many R BCs = 69737-7) seenUnable to quantitate due to fibrinous speci men Footnote------- -- [Automated message] The system which generated this result transmit cesar reference range : /CMM. The reference range was not used to interpret this result as normal/abnormal . Nucleated cells, SEE COMMENT See_Comment Many WBCs fluid (test [place] = [place] [address]-0) quantitate due to fibrinous specimenFootnot e-- ------- [Automa cesar message] The system which generated this result transmit csear reference range : /CMM. The reference range was not used to interpret this result as normal/abnormal . Fluid mononuclear Diff to follow cell (test code = 1407) Neutrophils, fluid 85 % (test code = 78466-9) Lymphocytes, fluid 10 % (test code = 38407-4) Eosinophils, fluid 1 % (test code = 39759-0) Macrophages, fluid 5 % Synovial Fluid: (test code = 44393-4) WBC 0- 150/mm3 RBC 0-1/mm3 Diferential: Le ss than 25% Neutrophils. Lymphocytes and monocytes/histo cyt es predominatePeri car dial, Peritonea l andPleural Flui d: WBC <500/mm3 RB C <100/mm3 Diferential: Le ss than 25% Neutrophils. Lymphocytes, macrophages and mesothelial michael l predominate Lab Interpretation Abnormal (test code = 17967-8) [facility] body [id number] 18:07:01 Test Item Value Reference Range Interpretation Comments Misc fluid type (test Synovial code = 87195-4) Color, fluid (test Red code = 6824-7) Appearance, fluid Cloudy A (test code = 9335-1) RBC, fluid (test code SEE COMMENT See_Comment Many R BCs = 91305-7) seenUnable to quantitate due to fibrinous speci men Footnote------- -- [Automated message] The system which generated this result transmit cesar reference range : /CMM. The reference range was not used to interpret this result as normal/abnormal . Nucleated cells, SEE COMMENT See_Comment Many WBCs fluid (test [place] = [place] [address]-8) quantitate due to fibrinous specimenFootnot e-- ------- [Automa cesar message] The system which generated this result transmit cesar reference range : /CMM. The reference range was not used to interpret this result as normal/abnormal . Fluid mononuclear Diff to follow cell (test code = 1407) Neutrophils, fluid 85 % (test code = 75056-4) Lymphocytes, fluid 10 % (test code = 81768-5) Eosinophils, fluid 1 % (test code = 63623-5) Macrophages, fluid 5 % Synovial Fluid: (test code = 06559-2) WBC 0- 150/mm3 RBC 0-1/mm3 Diferential: Le ss than 25% Neutrophils. Lymphocytes and monocytes/histo cyt es predominatePeri car dial, Peritonea l andPleural Flui d: WBC <500/mm3 RB C <100/mm3 Diferential: Le ss than 25% Neutrophils. Lymphocytes, macrophages and mesothelial michael l predominate Lab Interpretation Abnormal (test code = 25172-6) [facility] [id number] 03:44:00 Test Item Value Reference Range Interpretation [...] calculated (test <100 Desira ble code = 78205-6) range <100 m g/dL for primary prevention; <70 mg/dL for patients with C HD or diabetic patients with > or = 2 CHD risk factors. LDL-C is now calculated using the Robb-Shane calculation, which is a validated novel method providin g better accuracy than the Friedewald equation in the estimation of LDL-C. Robb S S et al. KAROLINA. 2013;310(19): 8469-2909 (http://educati on .The CombineDiagnosti Yi De .com/faq/THL204 ) Cholesterol/HDL See_Comment [Automated ratio (test code = message] The 9830-1) system which generated this result transmitted reference range : <5.0 (calc). Th e reference range was not used to interpret this result as normal/abnormal . Non-HDL cholesterol See_Comment For deedee ents with (test code = diabetes plus 1 04873-1) major ASCVD ris k factor, treatin g [...] RAC) Organization Information: Site ID: RGA Name: [facility] Address: [address] [place] [address] Director: [place] Brittany MagnusThe University of [facility] CenterHemoglobin [id number] 03:44:00 Test Item Value Reference Range Interpretation [...] specif ic patient populat ions. Standards of [place] dical Care in Diabetes(ADA). [Automated mess age] The system [employer] generated this result transmitted ref erence range: <5.7 % o f total Hgb. The reference range was not used to int erpret this result as normal/abnormal . MILO (test code = FASTING:YES MILO) FASTING: YES RAC (test code = Performing RAC) Organization Information: Site ID: RGA Name: [facility] Address: [address] [place] [address] [facility] [id number] 03:44:00 Test Item Value Reference Interpretation Comments Range Creatinine, urine 86 mg/dL 20-320 (mg/dL) (test code = 2161-8) Microalbumin, urine 3.3 mg/dL See Note: Referenc e Range: (test code = Reference Range Not 16336-4) established Microalbumin/creati See_Comment H The ADA defines [...] RAC) Organization Information: Site ID: RGA [facility] Address: [address] [place], [place] [address] Director: Arley Agudelo Lab Interpretation Abnormal (test code = 11404-9) [facility] with reflex to [id number] 03:44:00 Test Item Value Reference Interpretation Comments Range PSA (test code = 5.3 ng/mL See_Comment H [Automated message] 4158-2) The system [employer] generated this result transmitted ref erence range: < OR = 4 .0. The reference range was not used to int erpret this result as normal/abnormal . PSA, free (test 1.0 ng/mL code = 11474-7) PSA, free percent See_Comment L PSA(ng/mL ) Free (test code = PSA(%) Estimate d(x) 53840-8) Probability of Cancer(as%)0-2. 5 (*) Approx. 12.6-4. 0(1) 0-27(2) 24(3)4. 1-10(4) 0-10 56 11-15 2 8 16-20 20 21-25 16 >or =26 8>10(+) N/A >50 References:(1)C atalona et al.:Urology 60: 469-474 (2002) (2)Karen et al.:J.Urol 168: 922-925 (2001) Free PSA(%) Sensitiv ity(%) Specificity(%) < or = 25 85 19 < or = 30 93 9 (3)Karen olivas t al.:KAROLINA 277: 7366-4662 (1996 ) (4)Karen et al.:KAROLINA 279: 4963-3205 (1997 ) (x)These estima francis vary with [...] Performing RAC) Organization Information: Site ID: Name: [facility] Address: [address] [place] [address], [place] [address] Director: Dr. Arley Agudelo Lab Interpretation Abnormal (test code = 14450-5) [facility] with Adjusted [id number] 03:44:00 Test Item Value Reference Interpretation Comments Range Glucose (test code 64 mg/dL 65-99 L Fasting reference = 2345-7) interval BUN (test code = 21 mg/dL 09-25 3094-0) Creatinine (test 1.19 mg/dL 0.70-1.18 H For patient s >49 code = 2160-0) years of age, the reference limit for Creatinine is approximately 1 3% higher for peopleidentifie d as -Debra n. EGFR Non-Afr. See_Comment [Automated me ssage] Georgian (test code The syst em which = 7615) generated this result transmit cesar reference range : > OR = 60 mL/min/1.73m2. The reference range was not used to interpret this result as normal/abnormal . EGFR See_Comment [Automated mes surendra] Georgian (test code The syst em which = [...] . Sodium (test code = 139 mmol/L 610-211 6285-2) Potassium (test 4.7 mmol/L 3.5-5.3 code = 2823-3) Chloride (test code 104 mmol/L 98-110 = 2075-0) CO2 (test code = 27 mmol/L 20-32 8-9) Calcium (test code 9.2 mg/dL 8.6-10.3 = 54083-4) Calcium (adjusted See_Comment [Automate d message] for albumin) (test The syste m which code = 98310-6) generated th is result transmit cesar reference range : 8.6 - 10.2 mg/dL (c alc). The reference r jay was not used to interpret this result as normal/abnormal . Protein (test code 9.4 g/dL 6.1-8.1 H = 2885-2) Albumin, S (test 3.3 g/dL 3.6-5.1 L code = 1751-7) Globulin, total See_Comment H [Automated message] (test code = The system [employer] h 89776-3) generated this result transmit cesar reference range : 1.9 - 3.7 g/dL (jessica c). The reference r jay was not used to interpret this result as normal/abnormal . Albumin/globulin See_Comment L [Automated message] ratio (test code = The syste m which 1758-0) generated this result transmit cesar reference range [...] RAC) Organization Information: Site ID: [facility]GA [facility] Address: [address] [place] [address] Director: Arely Agudelo Lab Interpretation Abnormal (test code = 77202-6) [facility] [id number] 03:44:00 Test Item Value Reference Range Interpretation [...] calculated (test <100 Desira ble code = 35891-2) range <100 m g/dL for primary prevention; <70 mg/dL for patients with C HD or diabetic patients with > or = 2 CHD risk factors. LDL-C is now calculated using the Robb-Lynn calculation, which is a validated novel method providin g better accuracy than the Friedewald equation in the estimation of LDL-C. Robb S S et al. KAROLINA. 2013;310(19): 0276-7858 (http://educati on .The CombineDiagnosti Yi De .com/faq/SLD450 ) Cholesterol/HDL See_Comment [Automated ratio (test code = message] The 9830-1) system which generated this result transmitted reference range : <5.0 (calc). Th e reference range was not used to interpret this result as normal/abnormal . Non-HDL cholesterol See_Comment For deedee ents with (test code = diabetes plus 1 43396-6) major ASCVD ris k factor, treatin g [...] RAC) Organization Information: Site ID: RGA Name: CEL-SCIAntwon Lab Address: [address] [place] [address] Director: Arley Agudelo [facility] HospitalHemoglobin [id number] 03:44:00 Test Item Value Reference Range Interpretation [...] specif ic patient populat ions. Standards of [place] dical Care in Diabetes(ADA). [Automated mess age] The system whGazoob h generated this result transmitted ref erence range: <5.7 % o f total Hgb. The reference range was not used to int erpret this result as normal/abnormal . MILO (test code = FASTING:YES MILO) FASTING: YES RAC (test code = Performing RAC) Organization Information: Site ID: DEJUAN Name: CEL-SCIGareth n Lab Address: [address] [place] [address] Director: Arley Agudelo [facility] HospitalMicroalbumin / creatinine urine [id number] 03:44:00 Test Item Value Reference Interpretation Comments Range Creatinine, urine 86 mg/dL 20-320 (mg/dL) (test code = 2161-8) Microalbumin, urine 3.3 mg/dL See Note: Referenc e Range: (test code = Reference [place] Not 17[address]-8) established Microalbumin/creati See_Comment H The ADA defines [...] RAC) Organization Information: Site ID: DEJUAN Name: CEL-SCIJoaquín on Lab Address: [address] [place] [address] Director: Arley Agudelo Lab Interpretation Abnormal (test code = 53893-6) [facility] HospitalPSA, total with reflex to [id number] 03:44:00 Test Item Value Reference Interpretation Comments Range PSA (test code = 5.3 ng/mL See_Comment H [Automated message] 5827-1) The system [employer] generated this result transmitted ref erence range: < OR = 4 .0. The reference range was not used to int erpret this result as normal/abnormal . PSA, free (test 1.0 ng/mL code = 38190-9) PSA, free percent See_Comment L PSA(ng/mL ) Free (test code = PSA(%) Estimate d(x) 63552-5) Probability of Cancer(as%)0-2. 5 (*) Approx. 12.6-4. 0(1) 0-27(2) 24(3)4. 1-10(4) 0-10 56 11-15 28 16-20 20 21-25 16 >or =26 8>10(+) N/ A >50 References:(1)Gregory ashby et al.:Urology 60: 469-474 (2001) (2)Karen et al.:J.Urol 168: 922-925 (2001) Free PSA(%) Sensitiv ity(%) Specificity(%) < or = 25 85 19 < or = 30 93 9 (3)Karen e t al.:KAR[place]INA 277: 8127-8874 (1996 ) (4)Catalona et al.:KAR[place]INA 279: 9772-7612 (1997 ) (x)These estima francis vary with [...] RAC) Organization Information: Site ID: IG Name: CEL-SCIJuan J as Lab Address: [address] [place] [address] ONEL Gonzalez [address] Director: Dr. Arley Agudelo Lab Interpretation Abnormal (test code = 39260-9) [facility] HospitalComprehensive Metabolic Panel with Adjusted [id number] 03:44:00 Test Item Value Reference Interpretation Comments [...] n. EGFR Non-Afr. See_Comment [Automated me ssage] Georgian (test code The syst em which = 3195) generated this result transmit cesar reference range : > OR = 60 mL/min/1.73m2. The reference range was not used to interpret this result as normal/abnormal . EGFR See_Comment [Automated mes surendra] Georgian (test code The syst em which = 4433) generated this result transmit cesar reference range [...] . Sodium (test code = 139 mmol/L 569-584 2493-2) Potassium (test 4.7 mmol/L 3.5-5.3 code = 2823-3) Chloride (test code 104 mmol/L 98-110 = 2075-0) CO2 (test code = 27 mmol/L 20-32 8-9) Calcium (test code 9.2 mg/dL 8.6-10.3 = 28782-7) Calcium (adjusted See_Comment [Automate d message] for albumin) (test The syste m which code = 48825-5) generated th is result transmit cesar reference range : 8.6 - 10.2 mg/dL (c alc). The reference r jay was not used to interpret this result as normal/abnormal . Protein (test code 9.4 g/dL 6.1-8.1 H = 2885-2) Albumin, S (test 3.3 g/dL 3.6-5.1 L code = 1751-7) Globulin, total See_Comment H [Automated message] (test code = The system [facility] [place] [address]-4) generated this result transmit cesar reference range [...] RAC) Organization Information: Site ID: RGA [facility]: [facility] Address: [address] [place] [address] Director: Arley Agudelo Lab Interpretation Abnormal (test code = 46078-0) [facility] HospitalLipid [id number] 03:44:00 Test Item Value Reference Range Interpretation Comments Cholesterol, total 90 mg/dL See_Comment [Automat ed (test code = 2092-) message ] The system which generated this [...] calculated (test <100 Desira ble code = 22386-5) range <100 m g/dL for primary prevention; <70 mg/dL for patients with C HD or diabetic patients with > or = 2 CHD risk factors. LDL-C is now calculated using the Robb-Shane calculation, which is a validated novel method providin g better accuracy than the Friedewald equation in the estimation of LDL-C. Robb S S et al. KAROLINA. 2013;310(19): 4571-4085 (http://educati on .[employer] .com/faq/ASZ080 ) Cholesterol/HDL See_Comment [Automated ratio (test code = message] The 9830-1) system which generated this result transmitted reference range : <5.0 (calc). Th e reference range was not used to interpret this result as normal/abnormal . Non-HDL cholesterol See_Comment For deedee ents with (test code = diabetes plus 1 76724-2) major ASCVD ris k factor, treatin g [...] RAC) Organization Information: Site ID: RGA Name: CEL-SCIAntwon marie Lab Address: [address] [place] [address] Director: Arley Agudelo [facility] HospitalHemoglobin [id number] 03:44:00 Test Item Value Reference Range Interpretation [...] in Diabetes(ADA). [Automated mess age] The system [employer] generated this result transmitted ref erence range: <5.7 % o f total Hgb. The reference range was not used to int erpret this result as normal/abnormal . MILO (test code = FASTING:YES MILO) FASTING: YES RAC (test code = Performing RAC) Organization Information: Site ID: RGA [facility]: [facility] Address: [address] [place] [address] Director: Arley Agudelo [facility] HospitalMicroalbumin / creatinine urine [id number] 03:44:00 Test Item Value Reference Interpretation Comments Range Creatinine, urine 86 mg/dL 20-320 (mg/dL) (test code = 2161-8) Microalbumin, urine 3.3 mg/dL See Note: Referenc e Range: (test code = Reference Range Not 94604-0) established Microalbumin/creati See_Comment H The ADA defines nine ratio (test abnormaliti es in code = 9318-7) albuminexcret ion as follows: Albumi kimberlyn Category Result (mcg/mg creatin ine) Normal to Mildl y increased <30Moderately increased 30-2 99 Severely increa sed > OR = 300 The AD A recommends that at least two of threespecimens collected withi n a 3-6 month perio d beabnormal befo re considering a patient to bewi thin a diagnostic category. [Auto mated message] The [employer] stem which generated this result transmit cesar reference range : <30 mcg/mg creat. T he reference range was not used to interpret this result as normal/abnormal . MILO (test code = FASTING:YES MILO) FASTING: YES RAC (test code = Performing RAC) Organization Information: Site ID: RGA Name: [employer] [facility] on Lab Address: [address] [place] [address] Director: Arley Agudelo Lab Interpretation Abnormal (test code = 39044-1) mallory Macias with reflex to [id number] 03:44:00 Test Item Value Reference Interpretation Comments Range PSA (test code = 5.3 ng/mL See_Comment H [Automated message] 7910-6) The system [employer] generated this result transmitted ref erence range: < OR = 4 .0. The reference range was not used to int erpret this result as normal/abnormal . PSA, free (test 1.0 ng/mL code = 95658-7) PSA, free percent See_Comment L PSA(ng/mL ) Free (test code = PSA(%) Estimate d(x) 59983-4) Probability of Cancer(as%)0-2. 5 (*) Approx. 12.6-4. 0(1) 0-27(2) 24(3)4. 1-10(4) 0-10 56 11-15 2 8 16-20 20 21-25 16 >o r =26 8>10(+) N/A >50 References:(1)C symone et al.:Urology 60: 469-474 (2002) (2)Karen et al.:J.Urol 168: 922-925 (2001) Free PSA(%) Sensitiv ity(%) Specificity(%) < or = 25 85 19 < or = 30 93 9 (3)Karen e t al.:KAROLINA 277: 5099-2581 (1996 ) (4)Catalona et al.:KAROLINA 279: 9765-3710 (1997 ) (x)These estima francis vary with [...] Performing RAC) Organization Information: Site ID: Name: CEL-SCI-Dall as Lab Address: [address] [place] [address] Director: Dr. Arley Agudelo Lab Interpretation Abnormal (test code = 07661-5) [facility] [id number] 03:44:00 Test Item Value Reference Interpretation Comments [...] n. EGFR Non-Afr. See_Comment [Automated me ssage] Georgian (test code The syst em which = 8995) generated this result transmit cesar reference range : > OR = 60 mL/min/1.73m2. The reference range was not used to interpret this result as normal/abnormal . EGFR See_Comment [Automated mes surendra] Georgian (test code The syst em which = 7362) generated this result transmit cesar reference range [...] . Sodium (test code = 139 mmol/L 290-470 1414-2) Potassium (test 4.7 mmol/L 3.5-5.3 code = 2823-3) Chloride (test code 104 mmol/L 98-110 = 2075-0) CO2 (test code = 27 mmol/L 20-32 8-9) Calcium (test code 9.2 mg/dL 8.6-10.3 = 17231-7) Calcium (adjusted See_Comment [Automate d message] for albumin) (test The syste m which code = 73910-6) generated th is result transmit cesar reference range : 8.6 - 10.2 mg/dL (c alc). The reference r jay was not used to interpret this result as normal/abnormal . Protein (test code 9.4 g/dL 6.1-8.1 H = 2885-2) Albumin, S (test 3.3 g/dL 3.6-5.1 L code = 1751-7) Globulin, total See_Comment H [Automated message] (test code = The system [employer] h 35527-8) generated this result transmit cesar reference range [...] RAC) Organization Information: Site ID: RGA Name: [facility] Address: [address] [place] [address] Director: Arley Agudelo Lab Interpretation Abnormal (test code = 75596-4) [facility]Lipid [id number] 03:44:00 Test Item Value Reference Range Interpretation [...] calculated (test <100 Desira ble code = 34790-8) range <100 m g/dL for primary prevention; <70 mg/dL for patients with C HD or diabetic patients with > or = 2 CHD risk factors. LDL-C is now calculated using the Robb-Shane calculation, which is a validated novel method providin g better accuracy than the Friedewald equation in the estimation of LDL-C. Robb S S et al. KAROLINA. 2013;310(19): 6612-6641 (http://educati on .[employer] .com/faq/EAW529 ) Cholesterol/HDL See_Comment [Automated ratio (test code = message] The 9830-1) system which generated this result transmitted reference range : <5.0 (calc). Th e reference range was not used to interpret this result as normal/abnormal . Non-HDL cholesterol See_Comment For deedee ents with (test code = diabetes plus 1 82447-0) major ASCVD ris k factor, treatin g [...] RAC) Organization Information: Site ID: RGA Name: CEL-SCICloud Engines n Lab Address: [address] [place] [address] Director: Arley [facility]Brownfield [facility] Medical CenterHemoglobin [id number] 03:44:00 Test Item Value Reference Range Interpretation [...] specif ic patient populat ions. Standards of [place] dical Care in Diabetes(ADA). [Automated mess age] The system [employer] generated this result transmitted ref erence range: <5.7 % o f total Hgb. The reference range was not used to int erpret this result as normal/abnormal . MILO (test code = FASTING:YES MILO) FASTING: YES RAC (test code = Performing RAC) Organization Information: Site ID: RGA [facility] Address: [address] [place] [address] Director: Arley Agudelo [facility] HospitalMicroalbumin / creatinine urine [id number] 03:44:00 Test Item Value Reference Interpretation Comments Range Creatinine, urine 86 mg/dL 20-320 (mg/dL) (test code = 2161-8) Microalbumin, urine 3.3 mg/dL See Note: Referenc e Range: (test code = Reference Range Not 43077-2) established Microalbumin/creati See_Comment H The ADA defines [...] RAC) Organization Information: Site ID: RGA [facility]: [facility] Address: [address] [place] [address] Director: Arley Agudelo Lab Interpretation Abnormal (test code = 39466-0) [facility] with reflex to [id number] 03:44:00 Test Item Value Reference Interpretation Comments Range PSA (test code = 5.3 ng/mL See_Comment H [Automated message] 1647-1) The system [employer] generated this result transmitted ref erence range: < OR = 4 .0. The reference range was not used to int erpret this result as normal/abnormal . PSA, free (test 1.0 ng/mL code = 01802-5) PSA, free percent See_Comment L PSA(ng/mL ) Free (test code = PSA(%) Estimate d(x) 63189-0) Probability of Cancer(as%)0-2. 5 (*) Approx. 12.6-4. 0(1) 0-27(2) 24(3)4. 1-10(4) 0-10 56 11-15 2 8 16-20 20 21-25 16 >or =26 8>10(+) N/A >5 0 References:(1)Gregory ashby et al.:Urology 60: 469-474 (2002) (2)Karen et al.:J.Urol 168: 922-925 (2001) Free PSA(%) Sensitiv ity(%) Specificity(%) < or = 25 85 19 < or = 30 93 9 (3)Karen olivas t al.:KAROLINA 277: 8351-1823 (1996 ) (4)Karen et al.:KAR[place]INA 279: 3760-5742 (1998 ) (x)These estima francis vary with age, [...] RAC) Organization Information: Site ID: IG Name: In[facility]u [employer] as Lab Address: [address] [place] [address] Director: Dr. Arley Agudelo Lab Interpretation Abnormal (test code = 20162-0) [facility] HospitalComprehensive Metabolic Panel with Adjusted [id number] 03:44:00 Test Item Value Reference Interpretation Comments [...] n. EGFR Non-Afr. See_Comment [Automated me ssage] Georgian (test code The syst em which = 9826) generated this result transmit cesar reference range : > OR = 60 mL/min/1.73m2. The reference range was not used to interpret this result as normal/abnormal . EGFR See_Comment [Automated mes surendra] Georgian (test code [facility] which = 2774) generated this result transmit cesar reference range : > OR = 60 mL/min/1.73m2. The reference range was not used to interpret this result as normal/abnormal . BUN/creatinine See_Comment [Automated m essage] ratio (test code = [facility] which 3097-3) generated this result transmit cesar reference range : 6 - 22 (calc). The reference range was not used to interpret this result as normal/abnormal . Sodium (test code = 139 mmol/L 161-978 2278-2) Potassium (test 4.7 mmol/L 3.5-5.3 code = 2823-3) Chloride (test code 104 mmol/L 98-110 = 2075-0) CO2 (test code = 27 mmol/L 20-32 2027-9) Calcium (test code 9.2 mg/dL 8.6-10.3 = 86722-1) Calcium (adjusted See_Comment [Automate d message] for albumin) (test [facility] which code = 54769-6) generated th is result transmit cesar reference range : 8.6 - 10.2 mg/dL (c alc). The reference r jay was not used to interpret this result as normal/abnormal . Protein (test code 9.4 g/dL 6.1-8.1 H = 2885-2) Albumin, S (test 3.3 g/dL 3.6-5.1 L code = 1751-7) Globulin, total See_Comment H [Automated message] (test code = The [place] [facility] [place] [address]-0) generated this result transmit cesar reference range : 1.9 - 3.7 g/dL (jessica c). The reference r jay was not used to interpret this result as normal/abnormal . Albumin/globulin See_Comment L [Automated message] ratio (test code = [facility] which 1759-0) generated this result transmit cesar [...] RAC) Organization Information: Site ID: RGA Name: [facility] Lab Address: [address] [place] [address] Director: Arley Agudelo Lab Interpretation Abnormal (test code = 02852-4) [facility] HospitalLipid [id number] 03:44:00 Test Item Value Reference Range Interpretation [...] calculated (test <100 Desira ble code = 20753-7) range <100 m g/dL for primary prevention; <70 mg/dL for patients with C HD or diabetic patients with > or = 2 CHD risk factors. LDL-C is now calculated using the Robb-Shane calculation, which is a validated novel method providin g better accuracy than the Friedewald equation in the estimation of LDL-C. Robb Prince S et al. KAROLINA. 2013;310(19): 5429-7627 (http://educati on .The [facility]Diagn[facility] .com/faq/UBR683 ) Cholesterol/HDL See_Comment [Automated ratio (test code = message] The 9830-1) system which generated this result transmitted reference range : <5.0 (calc). Th e reference range was not used to interpret this result as normal/abnormal . Non-HDL cholesterol See_Comment For deedee ents with (test code = diabetes plus 1 67289-5) major ASCVD ris k factor, treatin g [...] RAC) Organization Information: Site ID: RGA Name: [facility] Address: [address] [place] [address] Director: Arley Agudelo [facility] HospitalHemoglobin [id number] 03:44:00 Test Item Value Reference Range Interpretation [...] specif ic patient populat ions. Standards of [place] dical Care in Diabetes(ADA). [Automated mess age] The system [employer] generated this result transmitted ref erence range: <5.7 % o f total Hgb. The reference range was not used to int erpret this result as normal/abnormal . MILO (test code = FASTING:YES MILO) FASTING: YES RAC (test code = Performing RAC) Organization Information: Site ID: RGA Name: [facility] Address: [address] [place] [address] Director: Arley Agudelo [facility] HospitalMicroalbumin / creatinine urine [id number] 03:44:00 Test Item Value Reference Interpretation Comments Range Creatinine, urine 86 mg/dL 20-320 (mg/dL) (test code = 2161-8) Microalbumin, urine 3.3 mg/dL See Note: Referenc e Range: (test code = Reference Range Not 37084-6) established Microalbumin/creati See_Comment H The ADA defines [...] RAC) Organization Information: Site ID: RGA Name: CEL-SCIKaty on Lab Address: [address] [place] [address] Director: Arley Agudelo Lab Interpretation Abnormal (test code = 23013-3) [facility] HospitalPSA, total with reflex to [id number] 03:44:00 Test Item Value Reference Interpretation Comments Range PSA (test code = 5.3 ng/mL See_Comment H [Automated message] 1794-2) The system [employer] generated this result transmitted ref erence range: < OR = 4 .0. The reference range was not used to int erpret this result as normal/abnormal . PSA, free (test 1.0 ng/mL code = 25446-0) PSA, free percent See_Comment L PSA(ng/mL ) Free (test code = PSA(%) Estimate d(x) 51517-7) Probability of Cancer(as%)0-2. 5 (*) Approx. 12.6-4. 0(1) 0-27(2) 24(3)4.1-10(4) 0-10 56 11-15 28 16-20 20 21-25 16 >or = 26 8>10(+) N/A >50 References:(1)Gregory ashby et al.:Urology 60: 469-474 (2001) (2)Karen et al.:J.Urol 168: 922-925 (2001) Free PSA(%) Sensitiv ity(%) Specificity(%) < or = 25 85 19 < or = 30 93 9 (3)Karen olivas t al.:KAROLINA 277: 8615-4896 (1996 ) (4)Karen et al.:KAR[place]INA 279: 8572-6642 (1997 ) (x)These estima francis vary with [...] ofdisea se. [Automated mess age] The system [employer] h generated this result transmitted ref erence range: >25 % (c alc). The reference r jay was not used to interpret this result as normal/abnor mal. MILO (test code = FASTING:YES MILO) FASTING: YES RAC (test code = Performing RAC) Organization Information: Site ID: IG Name: CEL-SCI-Dall as Lab Address: [address] [place] [address] Director: Dr. Arley Agudelo Lab Interpretation Abnormal (test code = 91705-9) [facility] HospitalComprehensive Metabolic Panel with Adjusted [id number] 03:44:00 Test Item Value Reference Interpretation Comments [...] n. EGFR Non-Afr. See_Comment [Automated me ssage] Georgian (test code The syst em which = 2775) generated this result transmit cesar reference range : > OR = 60 mL/min/1.73m2. The reference range was not used to interpret this result as normal/abnormal . EGFR See_Comment [Automated mes surendra] Georgian (test code The syst em which = [...] . Sodium (test code = 139 mmol/L 614-483 8947-2) Potassium (test 4.7 mmol/L 3.5-5.3 code = 2823-3) Chloride (test code 104 mmol/L 98-110 = 2075-0) CO2 (test code = 27 mmol/L 20-32 8-9) Calcium (test code 9.2 mg/dL 8.6-10.3 = 10632-5) Calcium (adjusted See_Comment [Automate d message] for albumin) (test The syste m which code = 18133-0) generated th is result transmit cesar reference range : 8.6 - 10.2 mg/dL (c alc). The reference r jay was not used to interpret this result as normal/abnormal . Protein (test code 9.4 g/dL 6.1-8.1 H = 2885-2) Albumin, S (test 3.3 g/dL 3.6-5.1 L code = 1751-7) Globulin, total See_Comment H [Automated message] (test code = [place] [address]-3) generated this result transmit cesar reference range [...] RAC) Organization Information: Site ID: RGA Name: [facility] Address: [address] [place] [address] Director: Arley Agudelo Lab Interpretation Abnormal (test code = 49513-0) [facility] HospitalLipid [id number] 03:44:00 Test Item Value Reference Range Interpretation [...] calculated (test <100 Desira ble code = 27966-8) range <100 m g/dL for primary prevention; <70 mg/dL for patients with C HD or diabetic patients with > or = 2 CHD risk factors. LDL-C is now calculated using the Lydia calculation, which is a validated novel method fermínin g better accuracy than the Friedewald equation in the estimation of LDL-C. Robb Prince S et al. KAROLINA. 2013;310(19): 2148-7659 (http://educati on .[employer] .com/faq/FCP258 ) Cholesterol/HDL See_Comment [Automated ratio (test code = message] The 9830-1) system which generated this result transmitted reference range : <5.0 (calc). Th e reference range was not used to interpret this result as normal/abnormal . Non-HDL cholesterol See_Comment For deedee ents with (test code = diabetes plus 1 31941-0) major ASCVD ris k factor, treatin g [...] RAC) Organization Information: Site ID: RGA Name: CEL-SCIGareth cynhtia Lab Address: [address] [place] [address] Director: Arley Agudelo [facility] HospitalHemoglobin [id number] 03:44:00 Test Item Value Reference Range Interpretation Comments Hemoglobin A1C See_Comment For the purpo se of (test code = screening for t 4548-4) presence ofdiab etes: <5.7% Consisten t [...] in Diabetes(ADA). [Automated mess age] The system [employer] generated this result transmitted ref erence range: <5.7 % o f total Hgb. The reference range was not used to int erpret this result as normal/abnormal . MILO (test code = FASTING:YES MILO) FASTING: YES RAC (test code = Performing RAC) Organization Information: Site ID: DEJUAN Name: CEL-SCI-[employer] n Lab Address: [address] [place] [address] Director: Arley Agudelo [facility] HospitalMicroalbumin / creatinine urine [id number] 03:44:00 Test Item Value Reference Interpretation Comments Range Creatinine, urine 86 mg/dL 20-320 (mg/dL) (test code = 2161-8) Microalbumin, urine 3.3 mg/dL See Note: Referenc e Range: (test code = Reference Range Not 75898-7) established Microalbumin/creati See_Comment H The ADA defines [...] RAC) Organization Information: Site ID: DEJUAN Name: [employer] Lab Address: [address] [place] [address] Director: Arley Agudelo Lab Interpretation Abnormal (test code = 14031-4) [facility] HospitalPSA, total with reflex to [id number] 03:44:00 Test Item Value Reference Interpretation Comments Range PSA (test code = 5.3 ng/mL See_Comment H [Automated message] 2857-1) The system [employer] generated this result transmitted ref erence range: < OR = 4 .0. The reference range was not used to int erpret this result as normal/abnormal . PSA, free (test 1.0 ng/mL code = 67101-6) PSA, free percent See_Comment L PSA(ng/mL ) Free (test code = PSA(%) Estimate d(x) 36295-2) Probability of Cancer(as%)0-2. 5 (*) Approx. 12.6-4. 0(1) 0-27(2) 24(3)4. 1-10(4) 0-10 56 11-15 2 8 16-20 20 21-25 16 >or =26 8>10(+) N/A >50 References:(1)Gregory fletcher al.:Urology 60: 469-474 (2001) (2)Karen et al.:J.Urol 168: 922-925 (2001) Free PSA(%) Sensitiv ity(%) Specificity(%) < or = 25 85 19 < or = 30 93 9 (3)Karen e t al.:KAROLINA 277: 3876-7688 (1996 ) (4)Catalona et al.:KAROLINA 279: 5817-3133 (1997 ) (x)These estima francis vary with [...] RAC) Organization Information: Site ID: IG Name: [facility] Lab Address: [address] [place] [address], [place] [address] Director: Dr. Arley Agudelo Lab Interpretation Abnormal (test code = 22986-9) [facility] with Adjusted [id number] 03:44:00 Test Item Value Reference Interpretation Comments Range Glucose (test code 64 mg/dL 65-99 L Fasting reference = 2345-7) interval BUN (test code = 21 mg/dL - 3094-0) Creatinine (test 1.19 mg/dL 0.70-1.18 H For patient s >49 code = 2160-0) years of age, the reference limit for Creatinine is approximately 1 3% higher for peopleidentifie d as -Debra n. EGFR Non-Afr. See_Comment [Automated me ssage] Georgian (test code The syst em which = 2775) generated this result transmit cesar reference range : > OR = 60 mL/min/1.73m2. The reference range was not used to interpret this result as normal/abnormal . EGFR See_Comment [Automated mes surendra] Georgian (test code The syst em which = [...] . Sodium (test code = 139 mmol/L 577-153 6617-2) Potassium (test 4.7 mmol/L 3.5-5.3 code = 2823-3) Chloride (test code 104 mmol/L 98-110 = 2075-0) CO2 (test code = 27 mmol/L 20-32 2027-9) Calcium (test code 9.2 mg/dL 8.6-10.3 = 62750-4) Calcium (adjusted See_Comment [Automate d message] for albumin) (test The syste m which code = 45571-7) generated th is result transmit ceasr reference range : 8.6 - 10.2 mg/dL (c alc). The reference r jay was not used to interpret this result as normal/abnormal . Protein (test code 9.4 g/dL 6.1-8.1 H = 2885-2) Albumin, S (test 3.3 g/dL 3.6-5.1 L code = 1751-7) Globulin, total See_Comment H [Automated message] (test code = The [place] [facility] [place] [address]-6) generated this result transmit cesar reference range [...] RAC) Organization Information: Site ID: RGA [facility]: [facility] Address: [address] [place] [address] Director: Arley Agudelo Lab Interpretation Abnormal (test code = 54877-8) [facility] [id number] 03:44:00 Test Item Value Reference Range Interpretation [...] calculated (test <100 Desira ble code = 46313-8) range <100 m g/dL for primary prevention; <70 mg/dL for patients with C HD or diabetic patients with > or = 2 CHD risk factors. LDL-C is now calculated using the Robb-Shane calculation, which is a validated novel method providin g better accuracy than the Friedewald equation in the estimation of LDL-C. Robb S S et al. KAROLINA. 2013;310(19): 5993-3710 (http://educati on .[employer] .com/faq/TSA415 ) Cholesterol/HDL See_Comment [Automated ratio (test code = message] The 9830-1) system which generated this result transmitted reference range : <5.0 (calc). Th e reference range was not used to interpret this result as normal/abnormal . Non-HDL cholesterol See_Comment For deedee ents with (test code = diabetes plus 1 25772-7) major ASCVD ris k factor, treatin g [...] RAC) Organization Information: Site ID: RGA Name: [facility] Lab Address: [address] [place] [address] Director: Arley Agudelo [facility] Hospital[facility]em[facility] [id number] 03:44:00 Test Item Value Reference Range Interpretation [...] in Diabetes(ADA). [Automated mess age] The system [employer] generated this result transmitted ref erence range: <5.7 % o f total Hgb. The reference range was not used to int erpret this result as normal/abnormal . MILO (test code = FASTING:YES MILO) FASTING: YES RAC (test code = Performing RAC) Organization Information: Site ID: RGA Name: [facility] Address: [address] [place] [address] Director: Arley Agudelo [facility] HospitalMicroalbumin / creatinine urine [id number] 03:44:00 Test Item Value Reference Interpretation Comments Range Creatinine, urine 86 mg/dL 20-320 (mg/dL) (test code = 2161-8) Microalbumin, urine 3.3 mg/dL See Note: Referenc e Range: (test code = Reference Range Not 71345-2) established Microalbumin/creati See_Comment H The ADA defines [...] RAC) Organization Information: Site ID: DEJUAN Name: [facility] Lab Address: [address] [place] [address] Director: Arley Agudelo Lab Interpretation Abnormal (test code = 98128-4) [facility], total with reflex to [id number] 03:44:00 Test Item Value Reference Interpretation Comments Range PSA (test code = 5.3 ng/mL See_Comment H [Automated message] 9737-1) The system [employer] generated this result transmitted ref erence range: < OR = 4 .0. The reference range was not used to int erpret this result as normal/abnormal . PSA, free (test 1.0 ng/mL code = 37194-9) PSA, free percent See_Comment L PSA(ng/mL ) Free (test code = PSA(%) Estimate d(x) 02348-3) Probability of Cancer(as%)0-2. 5 (*) Approx. 12.6-4. 0(1) 0-27(2) 24(3)4. 1-10(4) 0-10 56 11-15 28 16-20 20 21-25 16 >or =26 8>10(+) N/ A >50 References:(1)Gregory ashby et al.:Urology 60: 469-474 (2002) (2)Karen et al.:J.Urol 168: 922-925 (2001) Free PSA(%) Sensitiv ity(%) Specificity(%) < or = 25 85 19 < or = 30 93 9 (3)Karen e t al.:KAROLINA 277: 5393-4694 (1996 ) (4)Catalona et al.:KAROLINA 279: 8564-8558 (1997 ) (x)These estima francis vary with [...] Performing RAC) Organization Information: Site ID: Name: [facility] Lab Address: [address] [place] [phone] Director: Dr. Arley Agudelo Lab Interpretation Abnormal (test code = 54590-5) [facility] HospitalCom[facility] Metabolic Panel with Adjusted [id number] 03:44:00 Test Item Value Reference Interpretation Comments [...] n. EGFR Non-Afr. See_Comment [Automated me ssage] Georgian (test code The syst em which = 2188) generated this result transmit cesar reference range : > OR = 60 mL/min/1.73m2. The reference range was not used to interpret this result as normal/abnormal . EGFR See_Comment [Automated mes surendra] Georgian (test code The syst em which = 9750) generated this result transmit cesar reference range : > OR = 60 mL/min/1.73m2. The reference range was not used to interpret this result as normal/abnormal . BUN/creatinine See_Comment [Automated m essage] ratio (test code = The [employer] which 3097-3) generated this result transmit cesar reference range : 6 - 22 (calc). The reference range was not used to interpret this result as normal/abnormal . Sodium (test code = 139 mmol/L 161-102 5609-2) Potassium (test 4.7 mmol/L 3.5-5.3 code = 2823-3) Chloride (test code 104 mmol/L 98-110 = 2075-0) CO2 (test code = 27 mmol/L 20-32 2027-9) Calcium (test code 9.2 mg/dL 8.6-10.3 = 03106-4) Calcium (adjusted See_Comment [Automate d message] for albumin) (test The [employer] which code = 87080-3) generated th is result transmit cesar reference range : 8.6 - 10.2 mg/dL (c alc). The reference r jay was not used to interpret this result as normal/abnormal . Protein (test code 9.4 g/dL 6.1-8.1 H = 2885-2) Albumin, S (test 3.3 g/dL 3.6-5.1 L code = 1751-7) Globulin, total See_Comment H [Automated message] (test code = The system [employer] h 32973-4) generated this result transmit cesar reference range : 1.9 - 3.7 g/dL (jessica c). The reference r jay was not used to interpret this result as normal/abnormal . Albumin/globulin See_Comment L [Automated message] ratio (test code = The [employer] which 1759-0) generated this result transmit cesar [...] RAC) Organization Information: Site ID: RGA Name: [facility] Lab Address: [address] [place] [address] Director: Arley Agudelo Lab Interpretation Abnormal (test code = 49562-4) [facility] [id number] 03:44:00 Test Item Value Reference Range Interpretation [...] calculated (test <100 Desira ble code = 42226-2) range <100 m g/dL for primary prevention; <70 mg/dL for patients with C HD or diabetic patients with > or = 2 CHD risk factors. LDL-C is now calculated using the Robb-Shane calculation, which is a validated novel method providin g better accuracy than the Friedewald equation in the estimation of LDL-C. Robb S S et al. KAR[place]INA. 2013;310(19): 2625-3555 (http://educati on .[employer] .com/faq/TWY066 ) Cholesterol/HDL See_Comment [Automated ratio (test code = message] The 9830-1) system which generated this result transmitted reference range : <5.0 (calc). Th e reference range was not used to interpret this result as normal/abnormal . Non-HDL cholesterol See_Comment For deedee ents with (test code = diabetes plus 1 85285-4) major ASCVD ris k factor, treatin g [...] RAC) Organization Information: Site ID: RGA Name: [facility] Address: [address] [place], [place] [address] Director: Arley Agudelo [facility] HospitalHemoglobin [id number] 03:44:00 Test Item Value Reference Range Interpretation [...] specif ic patient populat ions. Standards of [place] dical Care in Diabetes(ADA). [Automated mess age] The system [employer] generated this result transmitted ref erence range: <5.7 % o f total Hgb. The reference range was not used to int erpret this result as normal/abnormal . MILO (test code = FASTING:YES MILO) FASTING: YES RAC (test code = Performing RAC) Organization Information: Site ID: RGA Name: [facility] Address: [address] [place] [address] Director: Arley Agudelo [facility] HospitalMicroalbumin / creatinine urine [id number] 03:44:00 Test Item Value Reference Interpretation Comments Range Creatinine, urine 86 mg/dL 20-320 (mg/dL) (test code = 2161-8) Microalbumin, urine 3.3 mg/dL See Note: Referenc e Range: (test code = Reference Range Not 73516-4) established Microalbumin/creati See_Comment H The ADA defines [...] RAC) Organization Information: Site ID: RGA Name: [facility] Lab Address: [address] [place] [address] Director: Arley Agudelo Lab Interpretation Abnormal (test code = 44635-0) [facility] with reflex to [id number] 03:44:00 Test Item Value Reference Interpretation Comments Range PSA (test code = 5.3 ng/mL See_Comment H [Automated message] 7143-9) The system [employer] generated this result transmitted ref erence range: < OR = 4 .0. The reference range was not used to int erpret this result as normal/abnormal . PSA, free (test 1.0 ng/mL code = 06273-4) PSA, free percent See_Comment L PSA(ng/mL ) Free (test code = PSA(%) Estimate d(x) 52066-2) Probability of Cancer(as%)0-2. 5 (*) Approx. 12.6-4. 0(1) 0-27(2) 24(3)4. 1-10(4) 0-10 56 11-15 2 8 16-20 20 21-25 16 >o r =26 8>10(+) N/A >50 References:(1)Gregory ashby et al.:Urology 60: 469-474 (2002) (2)Karen et al.:J.Urol 168: 922-925 (2002) Free PSA(%) Sensitiv ity(%) Specificity(%) < or = 25 85 19 < or = 30 93 9 (3)Karen e t al.:KAROLINA 277: 2031-9926 (1996 ) (4)Karen et al.:KAR[place]INA 279: 9645-6269 (1997 ) (x)These estima francis vary with [...] P SA was performed using the Daniel CareSimplyImmunoas say method. Values obtained from differentassay methods cannot be used interchangeably . PSAlevels, rega rdless of value, shoul d not be interpreteda s absolute eviden ce of the presence or absence ofdisea se. [Automated mess age] The system [employer] h generated this result transmitted ref erence range: >25 % (c alc). The reference r jay was not used to interpret this result as normal/abnor mal. MILO (test code = FASTING:YES MILO) FASTING: YES RAC (test code = Performing RAC) Organization Information: Site ID: Name: [facility] as Lab Address: [address] [place] [address] Director: Dr. Arley Agudelo Lab Interpretation Abnormal (test code = 32258-2) [facility] HospitalCom[facility] Metabolic Panel with Adjusted [id number] 03:44:00 Test Item Value Reference Interpretation Comments [...] n. EGFR Non-Afr. See_Comment [Automated me ssage] Georgian (test code The syst em which = 2775) generated this result transmit cesar reference range : > OR = 60 mL/min/1.73m2. The reference range was not used to interpret this result as normal/abnormal . EGFR See_Comment [Automated mes surendra] Georgian (test code The [employer] which = 2774) generated this result transmit cesar reference range : > OR = 60 mL/min/1.73m2. The reference range was not used to interpret this result as normal/abnormal . BUN/creatinine See_Comment [Automated m essage] ratio (test code = The [employer] which 3097-3) generated this result transmit cesar reference range : 6 - 22 (calc). The reference range was not used to interpret this result as normal/abnormal . Sodium (test code = 139 mmol/L 492-358 2707-2) Potassium (test 4.7 mmol/L 3.5-5.3 code = 2823-3) Chloride (test code 104 mmol/L 98-110 = 2075-0) CO2 (test code = 27 mmol/L 20-32 2028-9) Calcium (test code 9.2 mg/dL 8.6-10.3 = 99735-7) Calcium (adjusted See_Comment [Automate d message] for albumin) (test The [facility] which code = 27387-2) generated th is result transmit cesar reference range : 8.6 - 10.2 mg/dL (c alc). The reference r jay was not used to interpret this result as normal/abnormal . Protein (test code 9.4 g/dL 6.1-8.1 H = 2885-2) Albumin, S (test 3.3 g/dL 3.6-5.1 L code = 1751-7) Globulin, total See_Comment H [Automated message] (test code = The system [employer] h 07266-0) generated this result transmit cesar reference range : 1.9 - 3.7 g/dL (jessica c). The reference r jay was not used to interpret this result as normal/abnormal . Albumin/globulin See_Comment L [Automated message] ratio (test code = The [employer] which 1759-0) generated this result transmit cesar [...] RAC) Organization Information: Site ID: RGA Name: [facility] Lab Address: [address] [place] [address] Director: Arley Agudelo Lab Interpretation Abnormal (test code = 42577-3) [facility] HospitalLip[facility] [id number] 03:44:00 Test Item Value Reference Range Interpretation [...] calculated (test <100 Desira ble code = 26392-6) range <100 m g/dL for primary prevention; <70 mg/dL for patients with C HD or diabetic patients with > or = 2 CHD risk factors. LDL-C is now calculated using the Lydia calculation, which is a validated novel method providin g better accuracy than the Friedewald equation in the estimation of LDL-C. Robb S S et al. KAROLINA. 2013;310(19): 1418-1965 (http://educati on .QuestDiagnosti Yi De .com/faq/JFT159 ) Cholesterol/HDL See_Comment [Automated ratio (test code = message] The 9830-1) system which generated this result transmitted reference range : <5.0 (calc). Th e reference range was not used to interpret this result as normal/abnormal . Non-HDL cholesterol See_Comment For deedee ents with (test code = diabetes plus 1 27214-6) major ASCVD ris k factor, treatin g [...] RAC) Organization Information: Site ID: RGA [facility] Address: [address] [place] [address] Director: Arley Agudelo [facility] HospitalHemoglobin [id number] 03:44:00 Test Item Value Reference Range Interpretation [...] in Diabetes(ADA). [Automated mess age] The system [employer] generated this result transmitted ref erence range: <5.7 % o f total Hgb. The reference range was not used to int erpret this result as normal/abnormal . MILO (test code = FASTING:YES MILO) FASTING: YES RAC (test code = Performing RAC) Organization Information: Site ID: DEJUAN Name: [facility] n Lab Address: [address] [place] [address] Director: Arley Agudelo [facility] HospitalMicroalbumin / creatinine urine [id number] 03:44:00 Test Item Value Reference Interpretation Comments Range Creatinine, urine 86 mg/dL 20-320 (mg/dL) (test code = 2161-8) Microalbumin, urine 3.3 mg/dL See Note: Referenc e Range: (test code = Reference Range Not 66339-0) established Microalbumin/creati See_Comment H The ADA defines [...] RAC) Organization Information: Site ID: DEJUAN Name: [facility] Lab Address: [address] [place] [address] Director: Arley Agudelo Lab Interpretation Abnormal (test code = 85897-7) [facility] HospitalPSA, total with reflex to [id number] 03:44:00 Test Item Value Reference Interpretation Comments Range PSA (test code = 5.3 ng/mL See_Comment H [Automated message] 3827-1) The system [employer] generated this result transmitted ref erence range: < OR = 4 .0. The reference range was not used to int erpret this result as normal/abnormal . PSA, free (test 1.0 ng/mL code = 47129-1) PSA, free percent See_Comment L PSA(ng/mL ) Free (test code = PSA(%) Estimate d(x) 51315-4) Probability of Cancer(as%)0-2. 5 (*) Approx. 12.6-4. 0(1) 0-27(2) 24(3)4. 1-10(4) 0-10 56 11-15 28 16-20 20 21-25 16 >or =26 8>10(+) N/A >50 References:(1)Gregory ashby et al.:Urology 60: 469-474 (2001) (2)Karen et al.:J.Urol 168: 922-925 (2001) Free PSA(%) Sensitiv ity(%) Specificity(%) < or = 25 85 19 < or = 30 93 9 (3)Karen e t al.:KAROLINA 277: 3175-8501 (1996 ) (4)Karen et al.:KAROLINA 279: 9319-2936 (1997 ) (x)These estima francis vary with [...] ofdisea se. [Automated mess age] The system [employer] generated this result transmitted ref erence range: >25 % (c alc). The reference r jay was not used to interpret this result as normal/abnor mal. MILO (test code = FASTING:YES MILO) FASTING: YES RAC (test code = Performing RAC) Organization Information: Site ID: IG Name: [facility] Address: [address] [place] [address], [place] [address] Director: Dr. Arley Agudelo Lab Interpretation Abnormal (test code = 01324-6) [facility] Metabolic Panel with Adjusted [id number] 03:44:00 Test Item Value Reference Interpretation Comments [...] n. EGFR Non-Afr. See_Comment [Automated me ssage] Georgian (test code The syst em which = 1805) generated this result transmit cesar reference range : > OR = 60 mL/min/1.73m2. The reference range was not used to interpret this result as normal/abnormal . EGFR See_Comment [Automated mes surendra] Georgian (test code The syst em which = 0304) generated this result transmit cesar reference range [...] . Sodium (test code = 139 mmol/L 189-900 1266-2) Potassium (test 4.7 mmol/L 3.5-5.3 code = 2823-3) Chloride (test code 104 mmol/L 98-110 = 2075-0) CO2 (test code = 27 mmol/L 20-32 8-9) Calcium (test code 9.2 mg/dL 8.6-10.3 = 03829-2) Calcium (adjusted See_Comment [Automate d message] for albumin) (test The syste m which code = 80592-0) generated th is result transmit cesar reference range : 8.6 - 10.2 mg/dL (c alc). The reference r jay was not used to interpret this result as normal/abnormal . Protein (test code 9.4 g/dL 6.1-8.1 H = 2885-2) Albumin, S (test 3.3 g/dL 3.6-5.1 L code = 1751-7) Globulin, total See_Comment H [Automated message] (test code = The [place] whic h 72135-7) generated this result transmit cesar reference range [...] RAC) Organization Information: Site ID: RGA [facility] Address: [address] [place] [address] Director: Arley Agudelo Lab Interpretation Abnormal (test code = 80319-4) [facility] CenterNnckiatgMkqyaphdv0821-96-26 14:33:34 Test Item Value Reference Range Interpretation [...] a neg ative Cologuard resul t, the [place] Cancer Society and U.S. Multi- Society Task [...] Screening , Am J Gastroenterolog y 2017; 112:0287-9189.T EST DESCRIPTION: Co mposite algorithmic gabrielle lysis [...] These estimates are d erived from a [place] cross-sectional screening study of 10,000 individuals at average risk for colore ctal cancer who were screened with both Colog uard and colonoscopy. (Tracy Lam al, N Eng [...] be accessed at the following locat ion: www.[employer] om/results . Additional de scription of the Cologuar d test process, radha olivas and precautions can be found at www.cologuar dAlumniFunder. [facility]2021-12-23 14:33:34 Test Item Value Reference Range Interpretation [...] w ith both Cologuard and colonoscopy. (I mperiale T. et al, N Eng l J Med 2014;370(14):12 86-1298) The normal valu e (reference rang e) for this assay is negative.COLOGU MARIA ELENA RE-SCREENING RECOMMENDATION: Periodic colorectal canc er screening is an important part of [facility] for asymptomatic in dividuals at average risk for colorectal canc er. Following a neg ative Cologuard resul t, the [place] Cancer Society and U.S. Multi- Society Task Force scre ening guidelines anna mmend a Cologuard re-sc reening interval of 3 y ears. References: Nathaly rican Cancer Society Guideline for Colorectal Cancer Screening: https://www.can cer.org/ca ncer/colon-rect al-cancer/ detection-diagn osis-stagi ng/acs-recommen dations.ht ml.; Jeff REDDY, Eliceo garzon CR, Kieran GARCIA, Co lorectal Cancer Screenin g: Recommendations for Physicians and Patients from the U.S. Multi-Society T ask Force on Colorectal C ancer Screening , Am J Gastroenterolog y 2017; 112:4676-5565.T EST DESCRIPTION: Co mposite algorithmic gabrielle lysis [...] with both Colog uard and colonoscopy. (Tracy Lam al, N Eng [...] be accessed at the following locat ion: www.[employer] om/results . Additional de scription of the Cologuar d test process, radha olivas and precautions can be found at www.cologuar d.[employer]. [facility] CenterZxkmvjogJrqewaroj6381-07-25 14:33:34 Test Item Value Reference Range Interpretation [...] w ith both Cologuard and colonoscopy. (Tracy Reveles, N Eng l J Med 2014;370(14):12 86-1297) The normal valu e (reference rang e) for this assay is negative.COLOGU MARIA ELENA RE-SCREENING RECOMMENDATION: Periodic colorectal canc er screening is an important part of [facility] healthcare for asymptomatic in dividuals at average risk for colorectal canc er. Following a neg ative Cologuachris resul t, the [place] Cancer Society and U.S. Multi- Society Task [...] Screening , Am J Gastroenterolog y 2017; 112:9458-5625.T EST DESCRIPTION: Co mposite algorithmic gabrielle lysis [...] with both Colog uard and colonoscopy. (Tracy Reveles, N Eng l J Med 2014;370(14):12 86-1297.) [...] be accessed at the following locat ion: www.[employer]/results . Additional de scription of the Cologuar d test process, radha olivas and precautions can be found at www.cologuar dAlumniFunder. [facility] HospitalPyomppitGjqysamlf9237-82-46 14:33:34 Test Item Value Reference Range Interpretation [...] w ith both Cologuard and colonoscopy. (Tracy Reveles, N Eng l J Med 2014;370(14):12 86-1297) The normal valu e (reference rang e) for this assay is negative.COLOGU MARIA ELENA RE-SCREENING RECOMMENDATION: Periodic colorectal canc er screening is an important part of prevent [facility]eep healthcare for asymptomatic in dividuals at average risk for colorectal canc er. Following a neg ative Cologuard resul t, the [place] Cancer Society and U.S. Multi- Society Task Force scre ening guidelines anna mmend a Cologuard re-sc reening interval of 3 y ears. References: Nathaly rican Cancer Society Guideline for Colorectal Cancer Screening: https://www.can cer.org/ca ncer/colon-rect al-cancer/ detection-diagn osis-stagi ng/acs-recommen dations.ht ml.; Jeff DK, Eliceo PINEDO, Kieran GARCIA, Co lorectal Cancer Screenin g: Recommendations for Physicians and Patients from the U.S. Multi-Society T ask Force on Colorectal C ancer Screening , Am J Gastroenterolog y 2017; 112:6614-9631.T EST DESCRIPTION: Co mposite algorithmic gabrielle lysis [...] be accessed at the following locat ion: www.[employer] om/results . Additional de scription of the Cologuar d test process, radha olivas and precautions can be found at www.cologuar dAlumniFunder. Mu-Ism ZiirfmwmOvzzsenge3881-89-87 14:33:34 Test Item Value Reference Range Interpretation [...] a neg ative Cologuard resul t, the [employer] and U.S. Multi- Society Task [...] Screening , Am J Gastroenterolog y 2017; 112:4705-2593.T EST DESCRIPTION: Co mposite algorithmic gabrielle lysis [...] be accessed at the following locat ion: www.[employer] om/results . Additional de scription of the Cologuar d test process, radha gs and precautions can be found at www.cologuar d.[employer]. [facility] Medical CenterPlxylfciTfystwqsq5205-13-91 14:33:34 Test Item Value Reference Range Interpretation [...] w ith both Cologuard and colonoscopy. (Tracy Cloud. et al, N Eng l J Med 2014;370(14):12 86-1297) The normal valu e (reference rang e) for this assay is negative.COLOGU MARIA ELENA RE-SCREENING RECOMMENDATION: Periodic colorectal canc er screening is an important part of prevent steward health care system healthcare for asymptomatic in dividuals at average risk for colorectal canc er. Following a neg ative Cologuard resul t, the [employer] and U.S. Multi- Society Task Force scre ening guidelines anna mmend a Cologuard re-sc reening interval of 3 y ears. References: Nathaly r[place] Cancer Society Guideline for Colorectal Cancer Screening: https://www.can cer.org/ca ncer/colon-rect al-cancer/ detection-diagn osis-stagi ng/acs-recommen dations.ht ml.; Jeff DK, Eliceo garzon CR, Kieran MotleyK, Co lorectal Cancer Screenin g: Recommendations for Physicians and Patients from the U.S. Multi-Society T ask Force on Colorectal C ancer Screening , Am J Gastroenterolog y 2017; 112:3455-4809.T EST DESCRIPTION: Co mposite algorithmic gabrielle lysis [...] be accessed at the following locat ion: www.[employer] om/results . Additional de scription of the Cologuar d test process, radha gs and precautions can be found at www.cologuar d.[employer]. [facility] HospitalVfyuxtsqRjcfsswsn8021-65-64 14:33:34 Test Item Value Reference Range Interpretation [...] w ith both Cologuard and colonoscopy. (Tracy Varghese et al, N Eng l J Med 2014;370(14):12 86-1297) The normal valu e (reference rang e) for this assay is negative.COLOGU MARIA ELENA RE-SCREENING RECOMMENDATION: Periodic colorectal canc er screening is an important part of prevent sandeep healthcare for asymptomatic in dividuals at average risk for colorectal canc er. Following a neg ative Cologuard resul t, the [employer] and U.S. Multi- Society Task [...] Screening , Am J Gastroenterolog y 2017; 112:8759-9645.T EST DESCRIPTION: Co mposite algorithmic gabrielle lysis [...] be accessed at the following locat ion: www.[employer] om/results . Additional de scription of the Cologuar d test process, radha olivas and precautions can be found at www.cologuar d.[employer]. Mu-Ism JpqyqmupVZEN-XiP-8 (COVID-19) RNA [Presence] in Respiratory specimen by ROCIO with probe wciuhmfyc5535-71-39 04:20:50 Test Item Value Reference Range Interpretation Comments SARS-CoV-2 (COVID-19) RNA Not detected Not-Detected [Presence] in Respiratory specimen by ROCIO with probe detection (test code = 86397-9) Whether patient is employed in a healthcare setting (test code = 61683-2) Whether the patient has symptoms related to condition of interest (test code = 52536-6) Patient was hospitalized because of this condition (test code = 61889-4) Whether the patient was admitted to intensive care unit (ICU) for condition of interest (test code = 24149-2) Whether patient resides in a congregate care setting (test code = 19663-7) MAMI VIVAS ETAXZEQV-QoP-7 (COVID-19) RNA [Presence] in Respiratory specimen by ROCIO with probe hdxiacvzq8639-24-93 02:08:21 Test Item Value Reference Range Interpretation Comments SARS-CoV-2 (COVID-19) RNA Not detected Not-Detected [Presence] in Respiratory specimen by ROCIO with probe detection (test code = 43628-9) [facility]-CoV-2 (COVID-19) RNA [Presence] in Respiratory specimen by ROCIO with probe jffgcbzzp6531-62-34 02:59:46 Test Item Value Reference Range Interpretation Comments SARS-CoV-2 (COVID-19) RNA Not detected Not-Detected [Presence] in Respiratory specimen by ROCIO with probe detection (test code = 01433-6) [facility] 17:35:00 Test Item Value Reference Range Interpretation Comments AGAP (test code = AGAP) 12.1 10.0-20.0 [facility] RegionYnwnmxzFSMNSQXHIPGX5554-04-86 17:35:00 Test Item Value Reference Range Interpretation Comments eGFR (test code = eGFR) [facility]RpkcvtwIOAPBXZUGLVD9059-33-87 17:35:00 Test Item Value Reference Range Interpretation Comments Potassium Lvl (test code = Potassium 4.1 3.5-5.1 Lvl) [facility] RegionHmqdgirJSWASIOFCMRO5852-81-15 17:35:00 Test Item Value Reference Range Interpretation Comments Sodium Lvl (test code = Sodium Lvl) 140 135-145 [facility] RegionZptpaygXYUQNKNMWXSJ7110-69-31 17:35:00 Test Item Value Reference Range Interpretation Comments BUN (test code = BUN) 14 7-22 [facility] RegionPixpqmnGXGNMKZUPZEX0972-23-16 17:35:00 Test Item Value Reference Range Interpretation Comments Creatinine Lvl (test code = Creatinine 1.19 0.50-1.40 Lvl) [facility] RegionTpgxrxpZASADGBCKKEN2908-27-08 17:35:00 Test Item Value Reference Range Interpretation Comments Glucose Lvl (test code = Glucose Lvl) 120 70-99 [facility] RegionLcidfkvSYEAPJCMBOHT7335-60-73 17:35:00 Test Item Value Reference Range Interpretation Comments Calcium Lvl (test code = Calcium Lvl) 8.7 8.5-10.5 [facility] RegionDzrogpeTZTIRJTHPLUL1064-24-59 17:35:00 Test Item Value Reference Range Interpretation Comments CO2 (test code = CO2) 26 24-32 [facility] RegionWuqxaxqGHZQCVZLFLKW7817-03-73 17:35:00 Test Item Value Reference Range Interpretation Comments Chloride Lvl (test code = Chloride Lvl) 106 95-109 [facility] CampusObixwioFTQKIRLFAR1686-95-56 17:35:00 Test Item Value Reference Range Interpretation Comments PTT (test code = PTT) 32.8 s 22.9-35.8 [place] [address]-03-02 17:35:00 Test Item Value Reference Range Interpretation Comments INR (test code = INR) 1.06 1 0.85-1.17 [facility] CampusDpzqggkAHYEZJZFOU6555-34-55 17:35:00 Test Item Value Reference Range Interpretation Comments PT (test code = PT) 13.8 s 12.0-14.7 [place] [address]-03-02 17:35:00 Test Item Value Reference Range Interpretation Comments MPV (test code = MPV) 8.1 7.4-10.4 [facility] CampusGvbbpkjXYLTKESTZM7337-43-76 17:35:00 Test Item Value Reference Range Interpretation Comments MCV (test code = MCV) 86.7 80.0-94.0 [place] [address]-03-02 17:35:00 Test Item Value Reference Range Interpretation Comments Hct (test code = Hct) 44.3 42.0-54.0 [place] [address]-03-02 17:35:00 Test Item Value Reference Range Interpretation Comments Hgb (test code = Hgb) 15.1 14.0-18.0 [place] [address]-03-02 17:35:00 Test Item Value Reference Range Interpretation Comments WBC (test code = WBC) 7.4 3.7-10.4 [place] [address]-03-02 17:35:00 Test Item Value Reference Range Interpretation Comments RBC (test code = RBC) 5.10 4.70-6.10 [place] [address]-03-02 17:35:00 Test Item Value Reference Range Interpretation Comments Platelet (test code = Platelet) 281 133-450 [facility] CampusQweuncxSGILZWRSAN2161-78-35 17:35:00 Test Item Value Reference Range Interpretation Comments RDW (test code = RDW) 14.2 11.5-14.5 [facility] CampusGqsgmgfTGFNSJNQEB3317-15-68 17:35:00 Test Item Value Reference Range Interpretation Comments MCHC (test code = MCHC) 34.1 32.0-36.0 [facility] CampusCrewoveFPLTTHRNIB1740-77-07 17:35:00 Test Item Value Reference Range Interpretation Comments MCH (test code = MCH) 29.5 pg 27.0-31.0 [place] 955888-03-02 17:35:00 Test Item Value Reference Range Interpretation Comments Basophils # (test code 0.1 See_Comment [Aut omated message] The = Basophils #) system which generated this result tra nsmitted reference range : <=0.2. The reference r jay was not used to int erpret this result as normal/abnormal . [facility] CampusBymexkyJYMESBOIKI2574-10-84 17:35:00 Test Item Value Reference Range Interpretation Comments Eosinophils # (test code 0.3 See_Comment [A utomated message] The = Eosinophils #) system whic h generated this result tra nsmitted reference range : <=0.5. The reference r jay was not used to int erpret this result as normal/abnormal . [facility] CampusLjdwhhiQVWNSANKXQ2422-98-85 17:35:00 Test Item Value Reference Range Interpretation Comments Monocytes # (test code 0.5 See_Comment [Aut omated message] The = Monocytes #) system which generated this result tra nsmitted reference range : <=0.8. The reference r jay was not used to int erpret this result as normal/abnormal . [facility] CampusRxxjtimUALBFXQTVO5127-67-24 17:35:00 Test Item Value Reference Range Interpretation Comments Lymphocytes # (test code = Lymphocytes 2.0 1.0-5.5 #) [facility] CampusSbcyojtLLZAZFXQGN1057-56-36 17:35:00 Test Item Value Reference Range Interpretation Comments Segs-Bands # (test code = Segs-Bands #) 4.4 1.5-8.1 [facility] CampusGsghwmhEGHDBHIAKW7711-23-34 17:35:00 Test Item Value Reference Range Interpretation Comments Basophils (test code = 1.4 See_Comment [Aut omated message] The Basophils) system which ge nerated this result tra nsmitted reference range : <=1.0. The reference r jay was not used to int erpret this result as normal/abnormal . [facility] CampusEvjgsbpETFRWFZKSE5687-34-42 17:35:00 Test Item Value Reference Range Interpretation Comments Eosinophils (test code = 4.2 See_Comment [A utomated message] The Eosinophils) system which ge nerated this result tra nsmitted reference range : <=4.0. The reference r jay was not used to int erpret this result as normal/abnormal . [facility] CampusDxzzinqDLZYTVQEIP0127-48-29 17:35:00 Test Item Value Reference Range Interpretation Comments Monocytes (test code = Monocytes) 7.1 2.0-12.0 [facility] CampusMtirftiPMTUBZALQT9996-32-59 17:35:00 Test Item Value Reference Range Interpretation Comments Segs (test code = Segs) 60.0 45.0-75.0 [facility] CampusJnuwkdiUEVFAHKGQU1533-09-73 17:35:00 Test Item Value Reference Range Interpretation Comments Lymphocytes (test code = Lymphocytes) 27.3 20.0-40.0 [facility] ResourcesCyvujhmZTIRISVKYXTO8001-62-11 17:35:00 Test Item Value Reference Range Interpretation Comments AGAP (test code = AGAP) 12.1 10.0-20.0 [place] [address]-03-02 17:35:00 Test Item Value Reference Range Interpretation Comments eGFR (test code = eGFR) 73 [facility] RegionTopywkoIODBZRELNDTY8902-43-92 17:35:00 Test Item Value Reference Range Interpretation Comments Potassium Lvl (test code = Potassium 4.1 3.5-5.1 Lvl) [facility] RegionLjwaogkZPKKGPSGLALD0026-92-49 17:35:00 Test Item Value Reference Range Interpretation Comments Sodium Lvl (test code = Sodium Lvl) 140 135-145 [facility] RegionDmcifnjVVTQNOOTWCZM4808-88-17 17:35:00 Test Item Value Reference Range Interpretation Comments BUN (test code = BUN) 14 7-22 [facility] RegionNhhfokcGUORRTZLOGVY9822-31-77 17:35:00 Test Item Value Reference Range Interpretation Comments Creatinine Lvl (test code = Creatinine 1.19 0.50-1.40 Lvl) [facility] RegionAgjpihgSAOBLCCCGTTE0537-86-32 17:35:00 Test Item Value Reference Range Interpretation Comments Glucose Lvl (test code = Glucose Lvl) 120 70-99 [facility] RegionUvvqgicIBUEDJPVPQIL7834-65-79 17:35:00 Test Item Value Reference Range Interpretation Comments Calcium Lvl (test code = Calcium Lvl) 8.7 8.5-10.5 [facility] RegionCxrbffaHTYXTNDHXMUU3919-92-66 17:35:00 Test Item Value Reference Range Interpretation Comments CO2 (test code = CO2) 26 24-32 [facility] RegionBrkrsfoMULWJTHIDBHP8215-34-24 17:35:00 Test Item Value Reference Range Interpretation Comments Chloride Lvl (test code = Chloride Lvl) 106 95-109 [facility] CampusRaabhpaFQOXKATAKH8822-18-50 17:35:00 Test Item Value Reference Range Interpretation Comments PTT (test code = PTT) 32.8 s 22.9-35.8 [facility] CampusXbrnlthKMVDEXOEYO3363-09-97 17:35:00 Test Item Value Reference Range Interpretation Comments INR (test code = INR) 1.06 1 0.85-1.17 [facility] CampusUzevjsdEOXDRBTRDQ0235-97-20 17:35:00 Test Item Value Reference Range Interpretation Comments PT (test code = PT) 13.8 s 12.0-14.7 [facility] CampusAhtlujoUEUWBCVEDY6364-84-24 17:35:00 Test Item Value Reference Range Interpretation Comments MPV (test code = MPV) 8.1 7.4-10.4 [facility] CampusCcwnlwvLIIUAKKQRD1678-00-31 17:35:00 Test Item Value Reference Range Interpretation Comments MCV (test code = MCV) 86.7 80.0-94.0 [place] [address]-03-02 17:35:00 Test Item Value Reference Range Interpretation Comments Hct (test code = Hct) 44.3 42.0-54.0 [facility] CampusWmpsouqSGJGAKDCDF8548-65-37 17:35:00 Test Item Value Reference Range Interpretation Comments Hgb (test code = Hgb) 15.1 14.0-18.0 [facility] CampusLkxxzvyYELSBJYKPF9046-65-95 17:35:00 Test Item Value Reference Range Interpretation Comments WBC (test code = WBC) 7.4 3.7-10.4 [place] [address]-03-02 17:35:00 Test Item Value Reference Range Interpretation Comments RBC (test code = RBC) 5.10 4.70-6.10 [facility] CampusGdgsstcCYKYGPCODX2215-08-49 17:35:00 Test Item Value Reference Range Interpretation Comments Platelet (test code = Platelet) 281 133-450 [facility] CampusUfndhcdWJUKXRFIWK0981-09-86 17:35:00 Test Item Value Reference Range Interpretation Comments RDW (test code = RDW) 14.2 11.5-14.5 [facility] CampusVdakposBZREAHDPBM3322-64-41 17:35:00 Test Item Value Reference Range Interpretation Comments MCHC (test code = MCHC) 34.1 32.0-36.0 [facility] CampusJwytgccHOKQGZQFQF1124-93-58 17:35:00 Test Item Value Reference Range Interpretation Comments MCH (test code = MCH) 29.5 pg 27.0-31.0 [facility] CampusWsrxodaLWJFRPBNWI3501-00-09 17:35:00 Test Item Value Reference Range Interpretation Comments Basophils # (test code 0.1 See_Comment [Aut omated message] The = Basophils #) system which generated this result tra nsmitted reference range : <=0.2. The reference r jay was not used to int erpret this result as normal/abnormal . [facility] CampusLqbwuniBOZXUXTAYA0846-16-07 17:35:00 Test Item Value Reference Range Interpretation Comments Eosinophils # (test code 0.3 See_Comment [A utomated message] The = Eosinophils #) system whic h generated this result tra nsmitted reference range : <=0.5. The reference r jay was not used to int erpret this result as normal/abnormal . [facility] CampusQkzdzyiBGIGZHHOQI5008-07-87 17:35:00 Test Item Value Reference Range Interpretation Comments Monocytes # (test code 0.5 See_Comment [Aut omated message] The = Monocytes #) system which generated this result tra nsmitted reference range : <=0.8. The reference r jay was not used to int erpret this result as normal/abnormal . [facility] CampusOrrfnrvXCQZZOGRLQ2956-62-76 17:35:00 Test Item Value Reference Range Interpretation Comments Lymphocytes # (test code = Lymphocytes 2.0 1.0-5.5 #) [facility] CampusFsbysapPHGKHZXMZS0899-31-79 17:35:00 Test Item Value Reference Range Interpretation Comments Segs-Bands # (test code = Segs-Bands #) 4.4 1.5-8.1 [facility] CampusWzscznfUMEZIQENBH5334-86-74 17:35:00 Test Item Value Reference Range Interpretation Comments Basophils (test code = 1.4 See_Comment [Aut omated message] The Basophils) system which ge nerated this result tra nsmitted reference range : <=1.0. The reference r jay was not used to int erpret this result as normal/abnormal . [facility] CampusFyaotfkADDRXPEUIK7553-39-53 17:35:00 Test Item Value Reference Range Interpretation Comments Eosinophils (test code = 4.2 See_Comment [A utomated message] The Eosinophils) system which ge nerated this result tra nsmitted reference range : <=4.0. The reference r jay was not used to int erpret this result as normal/abnormal . [facility] CampusWgnnoraXFAXLJCJJY0407-22-74 17:35:00 Test Item Value Reference Range Interpretation Comments Monocytes (test code = Monocytes) 7.1 2.0-12.0 [facility] CampusNpvpckdKVTPKMSMAI6061-16-78 17:35:00 Test Item Value Reference Range Interpretation Comments Segs (test code = Segs) 60.0 45.0-75.0 [facility] CampusXxomghpRSHAGSNLBD3010-35-34 17:35:00 Test Item Value Reference Range Interpretation Comments Lymphocytes (test code = Lymphocytes) 27.3 20.0-40.0 [facility] RegionKrvpnfvKYXNXZNVALES6426-49-21 17:35:00 Test Item Value Reference Range Interpretation Comments AGAP (test code = AGAP) 12.1 10.0-20.0 [facility] RegionZynievxRECIFUCFCGGV2747-03-23 17:35:00 Test Item Value Reference Range Interpretation Comments eGFR (test code = eGFR) 73 [facility] RegionRbrlgmwOGDVATUMGQRC1881-24-54 17:35:00 Test Item Value Reference Range Interpretation Comments Potassium Lvl (test code = Potassium 4.1 3.5-5.1 Lvl) [facility] RegionMtqgjcrVWFARVSZZUAJ3341-01-51 17:35:00 Test Item Value Reference Range Interpretation Comments Sodium Lvl (test code = Sodium Lvl) 140 135-145 [facility] RegionDqrfvwfCOXJRSPVJFJF8818-56-61 17:35:00 Test Item Value Reference Range Interpretation Comments BUN (test code = BUN) 14 7-22 [facility] RegionLirskjwLBCUWIVMKDAS1992-20-19 17:35:00 Test Item Value Reference Range Interpretation Comments Creatinine Lvl (test code = Creatinine 1.19 0.50-1.40 Lvl) [facility] RegionErmukrlDAYKFIPKPVBU6750-55-92 17:35:00 Test Item Value Reference Range Interpretation Comments Glucose Lvl (test code = Glucose Lvl) 120 70-99 [facility] RegionHnfeiyzPOXWUEZOAZOY0897-61-09 17:35:00 Test Item Value Reference Range Interpretation Comments Calcium Lvl (test code = Calcium Lvl) 8.7 8.5-10.5 [facility] RegionApeeenaDMMISURRUADL9839-33-57 17:35:00 Test Item Value Reference Range Interpretation Comments CO2 (test code = CO2) 26 24-32 [facility] RegionEdsmdmeVLTXARFTLLRN7219-73-39 17:35:00 Test Item Value Reference Range Interpretation Comments Chloride Lvl (test code = Chloride Lvl) 106 95-109 [facility] CampusJleovceVNZBQOLTME0431-09-55 17:35:00 Test Item Value Reference Range Interpretation Comments PTT (test code = PTT) 32.8 s 22.9-35.8 [facility] CampusBzhipldDUUPKLLGCD3571-68-63 17:35:00 Test Item Value Reference Range Interpretation Comments INR (test code = INR) 1.06 1 0.85-1.17 [facility] CampusKrnvqgoUOZPNBYNMV0333-13-23 17:35:00 Test Item Value Reference Range Interpretation Comments PT (test code = PT) 13.8 s 12.0-14.7 [facility] CampusHnlqaakROUGMLHXYG5555-73-55 17:35:00 Test Item Value Reference Range Interpretation Comments MPV (test code = MPV) 8.1 7.4-10.4 [place] [address]-03-02 17:35:00 Test Item Value Reference Range Interpretation Comments MCV (test code = MCV) 86.7 80.0-94.0 [facility] CampusOatkklqRCUWTNFTYI2823-87-36 17:35:00 Test Item Value Reference Range Interpretation Comments Hct (test code = Hct) 44.3 42.0-54.0 [place] [address]-03-02 17:35:00 Test Item Value Reference Range Interpretation Comments Hgb (test code = Hgb) 15.1 14.0-18.0 [facility] CampusFsgnfrbSSFVSNWAKE2648-09-18 17:35:00 Test Item Value Reference Range Interpretation Comments WBC (test code = WBC) 7.4 3.7-10.4 [facility] CampusFfoyrfiYNIAABDIMJ1283-09-77 17:35:00 Test Item Value Reference Range Interpretation Comments RBC (test code = RBC) 5.10 4.70-6.10 [facility] CampusQbforomSLRMWSKHDF1095-40-51 17:35:00 Test Item Value Reference Range Interpretation Comments Platelet (test code = Platelet) 281 133-450 [facility] CampusVvfmxojZFNNJYJLFR6992-15-59 17:35:00 Test Item Value Reference Range Interpretation Comments RDW (test code = RDW) 14.2 11.5-14.5 [facility] CampusWumxqftSUOGDJXNOE9876-24-45 17:35:00 Test Item Value Reference Range Interpretation Comments MCHC (test code = MCHC) 34.1 32.0-36.0 [facility] CampusMydcndoEWAPGFHHOR2849-67-74 17:35:00 Test Item Value Reference Range Interpretation Comments MCH (test code = MCH) 29.5 pg 27.0-31.0 [facility] CampusRbpkeesMTZAROSUVQ4729-81-89 17:35:00 Test Item Value Reference Range Interpretation Comments Basophils # (test code 0.1 See_Comment [Aut omated message] The = Basophils #) system which generated this result tra nsmitted reference range : <=0.2. The reference r jay was not used to int erpret this result as normal/abnormal . [facility] CampusCjxvdgcNXZXZKQNIB3252-59-98 17:35:00 Test Item Value Reference Range Interpretation Comments Eosinophils # (test code 0.3 See_Comment [A utomated message] The = Eosinophils #) system whic h generated this result tra nsmitted reference range : <=0.5. The reference r jay was not used to int erpret this result as normal/abnormal . [facility] CampusDtqwybqUMXRJHBTXW3159-47-85 17:35:00 Test Item Value Reference Range Interpretation Comments Monocytes # (test code 0.5 See_Comment [Aut omated message] The = Monocytes #) system which generated this result tra nsmitted reference range : <=0.8. The reference r jay was not used to int erpret this result as normal/abnormal . [facility] CampusAacvaagYVASTBYDTZ2011-05-01 17:35:00 Test Item Value Reference Range Interpretation Comments Lymphocytes # (test code = Lymphocytes 2.0 1.0-5.5 #) [facility] CampusTzwtbzhOICBRDLQCV4751-12-04 17:35:00 Test Item Value Reference Range Interpretation Comments Segs-Bands # (test code = Segs-Bands #) 4.4 1.5-8.1 [facility] CampusXrycamlOPBZYSYSED9234-06-23 17:35:00 Test Item Value Reference Range Interpretation Comments Basophils (test code = 1.4 See_Comment [Aut omated message] The Basophils) system which ge nerated this result tra nsmitted reference range : <=1.0. The reference r jay was not used to int erpret this result as normal/abnormal . [facility] CampusErqkyuxTCGNRFFNNK9549-91-55 17:35:00 Test Item Value Reference Range Interpretation Comments Eosinophils (test code = 4.2 See_Comment [A utomated message] The Eosinophils) system which ge nerated this result tra nsmitted reference range : <=4.0. The reference r jay was not used to int erpret this result as normal/abnormal . [facility] CampusTquchijQBEMEMCYUJ8415-49-61 17:35:00 Test Item Value Reference Range Interpretation Comments Monocytes (test code = Monocytes) 7.1 2.0-12.0 [place] [address]-03-02 17:35:00 Test Item Value Reference Range Interpretation Comments Segs (test code = Segs) 60.0 45.0-75.0 [facility] SurgeryLxumcazYNWGNALLGP2460-65-96 17:35:00 Test Item Value Reference Range Interpretation Comments Lymphocytes (test code = Lymphocytes) 27.3 20.0-40.0 [facility] metabolic 2000 panel - Serum or Gmroav1603-88-04 08:18:00 Test Item Value Reference Range Interpretation Comments glucose (test code = 157 mg/dL 65-99 [facility] glucose) urea nitrogen (BUN) (test 14 mg/dL 7-25 code = urea nitrogen (BUN)) creatinine (test code = 1.20 mg/dL 0.70-1.25 creatinine) eGFR non-afr. cymro (test 63 mL/min/1.73m2 > or = 60 code = eGFR non-afr. cymro) eGFR (test 73 mL/min/1.73m2 > or = [...] (test code = ALT) 35 U/L 9-46 [facility] Practice[facility] A[facility]c/Hemoglobin.total in [id number] 08:18:00 Test Item Value Reference Range Interpretation Comments hemoglobin A1C (test code 6.5 % of total HGB <5.7 H = hemoglobin A1C) EAG (mg/dL) (test code = 140 (calc) EAG (mg/dL)) EAG (mmol/L) (test code = 7.7 (calc) EAG (mmol/L)) [facility] Plasma 2016-07-27 00:38:00 Test Item Value Reference Range Interpretation Comments glucose (test code = 139 mg/dL 65-99 H glucose) urea nitrogen (BUN) (test 12 mg/dL 725 code = urea nitrogen (BUN)) creatinine (test code = 1.13 mg/dL 0.70-1.25 creatinine) eGFR non-afr. cymro (test 67 mL/min/1.73m2 > or = 60 code = eGFR non-afr. cymro) eGFR (test 78 mL/min/1.73m2 > or = [...] (test code = ALT) 38 U/L 9-46 [facility] [id number] 00:38:00 Test Item Value Reference Range Interpretation Comments hemoglobin A1C (test code 6.8 % of total HGB <5.7 H = hemoglobin A1C) EAG (mg/dL) (test code = 148 (calc) EAG (mg/dL)) EAG (mmol/L) (test code = 8.2 (calc) EAG (mmol/L)) [facility] - [facility] or Plasma 2016-04-25 05:42:00 Test Item Value Reference Range Interpretation Comments glucose (test code = 119 mg/dL 65-99 H glucose) urea nitrogen (BUN) (test 10 mg/dL 09-25 code = urea nitrogen (BUN)) creatinine (test code = 1.23 mg/dL 0.70-1.25 creatinine) eGFR non-afr. cymro (test 61 mL/min/1.73m2 > or = 60 code = eGFR non-afr. cymro) eGFR (test 70 mL/min/1.73m2 > or = [...] (test code = ALT) 30 U/L 9-46 [facility] - [facility] or [id number] 05:42:00 Test Item Value Reference Range Interpretation [...] mg/dL (calc) code = non HDL cholesterol) [facility] in Tolyi7172-54-12 05:42:00 Test Item Value Reference Range Interpretation Comments hemoglobin A1C (test code 7.4 % of total HGB <5.7 H = hemoglobin A1C) EAG (mg/dL) (test code = 166 (calc) EAG (mg/dL)) EAG (mmol/L) (test code = 9.2 (calc) EAG (mmol/L)) [facility] [id number] 01:16:00 Test Item Value Reference Range Interpretation Comments hemoglobin A1C (test code 8.0 % of total HGB <5.7 H = hemoglobin A1C) EAG (mg/dL) (test code = 183 (calc) EAG (mg/dL)) EAG (mmol/L) (test code = 10.1 (calc) EAG (mmol/L)) [facility] - [facility] or Plasma 2016-01-31 01:16:00 Test Item Value Reference Range Interpretation Comments glucose (test code = 189 mg/dL 65-99 H glucose) urea nitrogen (BUN) (test 15 mg/dL 09-25 code = urea nitrogen (BUN)) creatinine (test code = 1.17 mg/dL 0.70-1.25 creatinine) eGFR non-afr. cymro (test 65 mL/min/1.73m2 > or = 60 code = eGFR non-afr. cymro) eGFR (test 75 mL/min/1.73m2 > or = [...] (test code = ALT) 41 U/L 9-46 [facility] Plasma 2015-10-20 23:38:00 Test Item Value Reference Range Interpretation Comments glucose (test code = 132 mg/dL 65-99 H glucose) urea nitrogen (BUN) (test 15 mg/dL 7-25 code = urea nitrogen (BUN)) creatinine (test code = 1.45 mg/dL 0.70-1.25 H creatinine) eGFR non-afr. cymro (test 50 mL/min/1.73m2 > or = 60 L code = eGFR non-afr. cymro) eGFR (test 58 mL/min/1.73m2 > or = [...] (test code = ALT) 31 U/L 9-46 [facility].total in Aqbsx5759-25-52 23:38:00 Test Item Value Reference Range Interpretation Comments hemoglobin A1C (test code 6.1 % of total HGB <5.7 H = hemoglobin A1C) EAG (mg/dL) (test code = 128 (calc) EAG (mg/dL)) EAG (mmol/L) (test code = 7.1 (calc) EAG (mmol/L)) [facility] or [id number] 23:38:00 Test Item Value Reference Range Interpretation [...] mg/dL (calc) code = non HDL cholesterol) [facility] - [facility] Plasma 2015-04-26 00:00:00 Test Item Value Reference Range Interpretation Comments glucose (test code = 122 mg/dL 65-99 H glucose) urea nitrogen (BUN) (test 13 mg/dL 7-25 code = urea nitrogen (BUN)) creatinine (test code = 1.23 mg/dL 0.70-1.25 creatinine) eGFR non-afr. cymro (test 61 mL/min/1.73m2 > or = 60 code = eGFR non-afr. cymro) eGFR (test 71 mL/min/1.73m2 > or = [...] (test code = ALT) 39 U/L 9-46 [facility] - Serum or [id number] 00:00:00 Test Item Value Reference Range Interpretation [...] mg/dL (calc) code = non HDL cholesterol) [facility].total in [id number] 00:00:00 Test Item Value Reference Range Interpretation Comments hemoglobin A1C (test code 6.8 % of total HGB <5.7 H = hemoglobin A1C) EAG (mg/dL) (test code = 148 (calc) EAG (mg/dL)) EAG (mmol/L) (test code = 8.2 (calc) EAG (mmol/L)) [facility] CenterHvggijlmKSWSUKKTSQRW7084-91-30 12:31:00 Test Item Value Reference Range Interpretation Comments AGAP (test code = AGAP) 7.3 10.0-20.0 [facility]DgcnwdaHCDYKMDEHZYX9224-27-65 12:31:00 Test Item Value Reference Range Interpretation Comments Chloride Lvl (test code = Chloride Lvl) 106 95-109 [facility] RegionIdotefbRLNDRWHJXMYF6286-07-05 12:31:00 Test Item Value Reference Range Interpretation Comments CO2 (test code = CO2) 32 24-32 [facility] RegionWfqpookVDKAHJQHGKLZ1865-03-01 12:31:00 Test Item Value Reference Range Interpretation Comments Potassium Lvl (test code = Potassium 4.3 3.5-5.1 Lvl) [facility] RegionZtxypacWJFLAWDJPRUN3256-78-32 12:31:00 Test Item Value Reference Range Interpretation Comments eGFR (test code = eGFR) 76 [facility] RegionLsygigoAZICCCSXEMFJ0997-60-82 12:31:00 Test Item Value Reference Range Interpretation Comments Calcium Lvl (test code = Calcium Lvl) 8.4 8.5-10.5 [facility] RegionApijdoxGIPFPYCAINRB2300-19-54 12:31:00 Test Item Value Reference Range Interpretation Comments BUN (test code = BUN) 13 7-22 [facility] RegionSpwasygKTZKNRIHLSRI6629-42-14 12:31:00 Test Item Value Reference Range Interpretation Comments Glucose Lvl (test code = Glucose Lvl) 133 70-99 [facility] RegionAuekrjhDTFEASBWJXMW9950-75-23 12:31:00 Test Item Value Reference Range Interpretation Comments Sodium Lvl (test code = Sodium Lvl) 141 135-145 [facility] RegionNkopredVQIBAYUNURHS8431-01-09 12:31:00 Test Item Value Reference Range Interpretation Comments Creatinine Lvl (test code = Creatinine 1.16 0.50-1.40 Lvl) [facility] CampusWitzojkTTRWUKCHIE4150-94-04 12:31:00 Test Item Value Reference Range Interpretation Comments Segs-Bands # (test code = Segs-Bands #) 5.6 1.5-8.1 [facility] CampusTjnhumrFQSPDAJUWZ4525-33-25 12:31:00 Test Item Value Reference Range Interpretation Comments Eosinophils # (test code 0.5 See_Comment [A utomated message] The = Eosinophils #) system whic h generated this result tra nsmitted reference range : <=0.5. The reference r jay was not used to int erpret this result as normal/abnormal . [facility] CampusAveqkhpNYAURQOWWG5640-50-24 12:31:00 Test Item Value Reference Range Interpretation Comments Lymphocytes # (test code = Lymphocytes 2.4 1.0-5.5 #) [facility] CampusPeepbdkKDOZJNWBWA0672-31-03 12:31:00 Test Item Value Reference Range Interpretation Comments Monocytes # (test code 0.8 See_Comment [Aut omated message] The = Monocytes #) system which generated this result tra nsmitted reference range : <=0.8. The reference r jay was not used to int erpret this result as normal/abnormal . [facility] CampusBhihcdfTGBDROOPUL7583-24-89 12:31:00 Test Item Value Reference Range Interpretation Comments Basophils # (test code 0.1 See_Comment [Aut omated message] The = Basophils #) system which generated this result tra nsmitted reference range : <=0.2. The reference r jay was not used to int erpret this result as normal/abnormal . [facility] CampusNotcgenOQPUPCLJDR8118-23-82 12:31:00 Test Item Value Reference Range Interpretation Comments Basophils (test code = 1.1 See_Comment [Aut omated message] The Basophils) system which ge nerated this result tra nsmitted reference range : <=1.0. The reference r jay was not used to int erpret this result as normal/abnormal . [facility] CampusIazotkkFFSEFYHVRZ2789-87-81 12:31:00 Test Item Value Reference Range Interpretation Comments Eosinophils (test code = 5.7 See_Comment [A utomated message] The Eosinophils) system which ge nerated this result tra nsmitted reference range : <=4.0. The reference r jay was not used to int erpret this result as normal/abnormal . [facility] CampusHrvkhpjXNMTUCWUQF3000-58-90 12:31:00 Test Item Value Reference Range Interpretation Comments Monocytes (test code = Monocytes) 8.6 2.0-12.0 [facility] CampusVccewcyCMIKYZYWJX2914-62-18 12:31:00 Test Item Value Reference Range Interpretation Comments Segs (test code = Segs) 58.9 45.0-75.0 [place] 955885-12-19 12:31:00 Test Item Value Reference Range Interpretation Comments Lymphocytes (test code = Lymphocytes) 25.7 20.0-40.0 [facility] CampusCwsmqvlEVTFETRVZE7805-41-91 12:31:00 Test Item Value Reference Range Interpretation Comments Platelet (test code = Platelet) 203 133-450 [facility] CampusMyeaiexXYNWDUNVEW4591-23-40 12:31:00 Test Item Value Reference Range Interpretation Comments MPV (test code = MPV) 8.5 7.4-10.4 [facility] CampusAngrzazWBQYETXYHV7212-55-13 12:31:00 Test Item Value Reference Range Interpretation Comments Hgb (test code = Hgb) 13.7 14.0-18.0 [facility] CampusYwtpkjfWXQKIVVIKQ8598-75-70 12:31:00 Test Item Value Reference Range Interpretation Comments RBC (test code = RBC) 4.41 4.70-6.10 [facility] CampusZpijesgLJDJFKQFCT9183-12-04 12:31:00 Test Item Value Reference Range Interpretation Comments Hct (test code = Hct) 39.1 42.0-54.0 [facility] CampusGjepizvSRTPBCXAJO1207-56-01 12:31:00 Test Item Value Reference Range Interpretation Comments MCH (test code = MCH) 31.2 pg 27.0-31.0 [facility] CampusHtohkjyPSSFKAZDNA6830-23-24 12:31:00 Test Item Value Reference Range Interpretation Comments MCV (test code = MCV) 88.7 80.0-94.0 [facility] CampusMhzmqhoABXMJIESGV3961-96-23 12:31:00 Test Item Value Reference Range Interpretation Comments RDW (test code = RDW) 13.0 11.5-14.5 [facility] CampusIbhqpszESCRLHENFA8117-10-08 12:31:00 Test Item Value Reference Range Interpretation Comments MCHC (test code = MCHC) 35.1 32.0-36.0 [facility] CampusBmearabHQDIXFFRVZ2327-31-18 12:31:00 Test Item Value Reference Range Interpretation Comments WBC (test code = WBC) 9.4 3.7-10.4 [facility] RegionYvmlchyBNCNRNDFLBLF9014-71-00 12:31:00 Test Item Value Reference Range Interpretation Comments AGAP (test code = AGAP) 7.3 10.0-20.0 [facility] RegionVmzpustRMCPZBUZHOMC1659-36-52 12:31:00 Test Item Value Reference Range Interpretation Comments Chloride Lvl (test code = Chloride Lvl) 106 95-109 [facility] RegionNjzzvobSISIAPEBICTJ8787-17-36 12:31:00 Test Item Value Reference Range Interpretation Comments CO2 (test code = CO2) 32 24-32 [facility] RegionYeuxtnnCKWNKFGEIJMO2244-09-78 12:31:00 Test Item Value Reference Range Interpretation Comments Potassium Lvl (test code = Potassium 4.3 3.5-5.1 Lvl) [facility] RegionSfftzjaQZJNLHTVCYBW8901-14-75 12:31:00 Test Item Value Reference Range Interpretation Comments eGFR (test code = eGFR) 76 [facility] RegionKnoaqjmAVGVBGAQGSHR1664-54-37 12:31:00 Test Item Value Reference Range Interpretation Comments Calcium Lvl (test code = Calcium Lvl) 8.4 8.5-10.5 [facility] RegionBilofjmVRDKORXYJFLJ0728-29-05 12:31:00 Test Item Value Reference Range Interpretation Comments BUN (test code = BUN) 13 7-22 [facility] RegionNgmcxznGOHKJTCTRJKM7897-61-37 12:31:00 Test Item Value Reference Range Interpretation Comments Glucose Lvl (test code = Glucose Lvl) 133 70-99 [facility] RegionNiabzkvDXGMLKQOCHBC7704-11-66 12:31:00 Test Item Value Reference Range Interpretation Comments Sodium Lvl (test code = Sodium Lvl) 141 135-145 [facility] RegionIkhemlpDSLWKWFFQDIM2663-73-90 12:31:00 Test Item Value Reference Range Interpretation Comments Creatinine Lvl (test code = Creatinine 1.16 0.50-1.40 Lvl) [facility] CampusCuyenqkFTFDOTIZSZ6826-99-80 12:31:00 Test Item Value Reference Range Interpretation Comments Segs-Bands # (test code = Segs-Bands #) 5.6 1.5-8.1 [facility] CampusTgzzttxZHKFWQBHYP5680-12-80 12:31:00 Test Item Value Reference Range Interpretation Comments Eosinophils # (test code 0.5 See_Comment [A utomated message] The = Eosinophils #) system whic h generated this result tra nsmitted reference range : <=0.5. The reference r jay was not used to int erpret this result as normal/abnormal . [facility] CampusPygaqpdVJBCADMNWZ2245-68-61 12:31:00 Test Item Value Reference Range Interpretation Comments Lymphocytes # (test code = Lymphocytes 2.4 1.0-5.5 #) [facility] CampusGvevndjRRXOBIWRKR2520-11-82 12:31:00 Test Item Value Reference Range Interpretation Comments Monocytes # (test code 0.8 See_Comment [Aut omated message] The = Monocytes #) system which generated this result tra nsmitted reference range : <=0.8. The reference r jay was not used to int erpret this result as normal/abnormal . [facility] CampusAzclgjvUQWATJGXVT6746-23-67 12:31:00 Test Item Value Reference Range Interpretation Comments Basophils # (test code 0.1 See_Comment [Aut omated message] The = Basophils #) system which generated this result tra nsmitted reference range : <=0.2. The reference r jay was not used to int erpret this result as normal/abnormal . [facility] CampusDrdrtjsMUQMXSSOFL2584-57-30 12:31:00 Test Item Value Reference Range Interpretation Comments Basophils (test code = 1.1 See_Comment [Aut omated message] The Basophils) system which ge nerated this result tra nsmitted reference range : <=1.0. The reference r jay was not used to int erpret this result as normal/abnormal . [facility] CampusXgmpsabLILWWHZSLL3871-38-93 12:31:00 Test Item Value Reference Range Interpretation Comments Eosinophils (test code = 5.7 See_Comment [A utomated message] The Eosinophils) system which ge nerated this result tra nsmitted reference range : <=4.0. The reference r jay was not used to int erpret this result as normal/abnormal . [facility] CampusMjcauijDTJBTWUSVI1483-49-83 12:31:00 Test Item Value Reference Range Interpretation Comments Monocytes (test code = Monocytes) 8.6 2.0-12.0 [facility] CampusGekgcbgGBWPPGXRNR1137-31-08 12:31:00 Test Item Value Reference Range Interpretation Comments Segs (test code = Segs) 58.9 45.0-75.0 [facility] CampusCzzojspMRJOCGZWHX8152-40-30 12:31:00 Test Item Value Reference Range Interpretation Comments Lymphocytes (test code = Lymphocytes) 25.7 20.0-40.0 [facility] CampusShhhpacRELEZYUMOS4398-51-36 12:31:00 Test Item Value Reference Range Interpretation Comments Platelet (test code = Platelet) 203 133-450 [place] 955885-12-19 12:31:00 Test Item Value Reference Range Interpretation Comments MPV (test code = MPV) 8.5 7.4-10.4 [facility] CampusHzvvypwMXKEADSPIM0551-74-24 12:31:00 Test Item Value Reference Range Interpretation Comments Hgb (test code = Hgb) 13.7 14.0-18.0 [facility] CampusCvtxjlsJDJWKJHUWK0231-06-80 12:31:00 Test Item Value Reference Range Interpretation Comments RBC (test code = RBC) 4.41 4.70-6.10 [facility] CampusBewzjozAKXQUKXSGY1158-94-43 12:31:00 Test Item Value Reference Range Interpretation Comments Hct (test code = Hct) 39.1 42.0-54.0 [facility] CampusRqjqwxoHXWXQPJCNK3442-87-21 12:31:00 Test Item Value Reference Range Interpretation Comments MCH (test code = MCH) 31.2 pg 27.0-31.0 [facility] CampusDddyfzoXUOXKGHFPO7895-67-42 12:31:00 Test Item Value Reference Range Interpretation Comments MCV (test code = MCV) 88.7 80.0-94.0 [facility] CampusXeddaqxDCOTMENEUR4000-49-97 12:31:00 Test Item Value Reference Range Interpretation Comments RDW (test code = RDW) 13.0 11.5-14.5 [facility] CampusPfhdhclNEFMCPFXCR7249-56-81 12:31:00 Test Item Value Reference Range Interpretation Comments MCHC (test code = MCHC) 35.1 32.0-36.0 [facility] CampusNgrrtgtVQUHBTYPVR2845-55-57 12:31:00 Test Item Value Reference Range Interpretation Comments WBC (test code = WBC) 9.4 3.7-10.4 [facility] RegionOykcxhnMADNGEKRNSBL2218-26-44 12:31:00 Test Item Value Reference Range Interpretation Comments AGAP (test code = AGAP) 7.3 10.0-20.0 [facility] RegionTmlzowgWEUNJHFMELZD7343-13-04 12:31:00 Test Item Value Reference Range Interpretation Comments Chloride Lvl (test code = Chloride Lvl) 106 95-109 [facility] RegionXuuiarvJOFDFIRTLTAX1843-43-73 12:31:00 Test Item Value Reference Range Interpretation Comments CO2 (test code = CO2) 32 24-32 [facility] RegionLzvblaiUDOUCYYOGKEH6221-04-49 12:31:00 Test Item Value Reference Range Interpretation Comments Potassium Lvl (test code = Potassium 4.3 3.5-5.1 Lvl) [facility] RegionZiyzqhtXGEHILCSDPPV1365-42-96 12:31:00 Test Item Value Reference Range Interpretation Comments eGFR (test code = eGFR) 76 [facility] RegionGtxebdcYEUKNGCFOKEM3065-92-94 12:31:00 Test Item Value Reference Range Interpretation Comments Calcium Lvl (test code = Calcium Lvl) 8.4 8.5-10.5 [facility] RegionFoerpliVKXHVTCEHKVV3979-44-05 12:31:00 Test Item Value Reference Range Interpretation Comments BUN (test code = BUN) 13 7-22 [facility] RegionTcnocxeYEHNWIABVUYO5443-14-76 12:31:00 Test Item Value Reference Range Interpretation Comments Glucose Lvl (test code = Glucose Lvl) 133 70-99 [facility] RegionHpvmlknYZPFUAURVMTB1308-65-29 12:31:00 Test Item Value Reference Range Interpretation Comments Sodium Lvl (test code = Sodium Lvl) 141 135-145 [facility] RegionQslftouULXGGDLXIZPI2100-05-96 12:31:00 Test Item Value Reference Range Interpretation Comments Creatinine Lvl (test code = Creatinine 1.16 0.50-1.40 Lvl) [facility] CampusNfwnpulLJUTXWJTMK8817-71-31 12:31:00 Test Item Value Reference Range Interpretation Comments Segs-Bands # (test code = Segs-Bands #) 5.6 1.5-8.1 [facility] CampusVklruerFGRCHWJWPU2987-80-13 12:31:00 Test Item Value Reference Range Interpretation Comments Eosinophils # (test code 0.5 See_Comment [A utomated message] The = Eosinophils #) system ic h generated this result tra nsmitted reference range : <=0.5. The reference r jay was not used to int erpret this result as normal/abnormal . [facility] CampusNogiohvHMGIPVMGNL0474-34-94 12:31:00 Test Item Value Reference Range Interpretation Comments Lymphocytes # (test code = Lymphocytes 2.4 1.0-5.5 #) [facility] CampusUpbgyveYLRQCPBAIK5240-18-41 12:31:00 Test Item Value Reference Range Interpretation Comments Monocytes # (test code 0.8 See_Comment [Aut omated message] The = Monocytes #) system which generated this result tra nsmitted reference range : <=0.8. The reference r jay was not used to int erpret this result as normal/abnormal . [facility] CampusLjddbeiUXOESVPCUS4499-55-54 12:31:00 Test Item Value Reference Range Interpretation Comments Basophils # (test code 0.1 See_Comment [Aut omated message] The = Basophils #) system which generated this result tra nsmitted reference range : <=0.2. The reference r jay was not used to int erpret this result as normal/abnormal . [facility] CampusVpimwuxOGLVBCNDUS9616-10-75 12:31:00 Test Item Value Reference Range Interpretation Comments Basophils (test code = 1.1 See_Comment [Aut omated message] The Basophils) system which ge nerated this result tra nsmitted reference range : <=1.0. The reference r jay was not used to int erpret this result as normal/abnormal . [facility] CampusPrvydyeWNTETIZWEB4096-68-13 12:31:00 Test Item Value Reference Range Interpretation Comments Eosinophils (test code = 5.7 See_Comment [A utomated message] The Eosinophils) system which ge nerated this result tra nsmitted reference range : <=4.0. The reference r jay was not used to int erpret this result as normal/abnormal . [facility] CampusTcjzccvSQQPYLYAHF5606-30-17 12:31:00 Test Item Value Reference Range Interpretation Comments Monocytes (test code = Monocytes) 8.6 2.0-12.0 [facility] CampusJujvascVCWNHSMFDA8439-77-69 12:31:00 Test Item Value Reference Range Interpretation Comments Segs (test code = Segs) 58.9 45.0-75.0 [facility] CampusOxjebtvYKMRKICSOF4112-78-49 12:31:00 Test Item Value Reference Range Interpretation Comments Lymphocytes (test code = Lymphocytes) 25.7 20.0-40.0 [facility] CampusCqxpnhbGRFRVSEAKR3369-82-74 12:31:00 Test Item Value Reference Range Interpretation Comments Platelet (test code = Platelet) 203 133-450 [facility] CampusBsrztgyHHCCJKNASH6681-98-49 12:31:00 Test Item Value Reference Range Interpretation Comments MPV (test code = MPV) 8.5 7.4-10.4 [facility] CampusFxojbjjEQKBWGBBUT2896-03-03 12:31:00 Test Item Value Reference Range Interpretation Comments Hgb (test code = Hgb) 13.7 14.0-18.0 [facility] CampusFcdqrpeHORGENRTAG6580-34-38 12:31:00 Test Item Value Reference Range Interpretation Comments RBC (test code = RBC) 4.41 4.70-6.10 [facility] CampusMhesircJJLJQUIUBO7036-44-64 12:31:00 Test Item Value Reference Range Interpretation Comments Hct (test code = Hct) 39.1 42.0-54.0 [facility] CampusQmqkonkLHKJGEBLMM4154-23-96 12:31:00 Test Item Value Reference Range Interpretation Comments MCH (test code = MCH) 31.2 pg 27.0-31.0 [facility] CampusVcolcdeBMVMZJBBTR4928-33-27 12:31:00 Test Item Value Reference Range Interpretation Comments MCV (test code = MCV) 88.7 80.0-94.0 [facility] CampusOfzwnysXVHSRKCIXH1262-01-26 12:31:00 Test Item Value Reference Range Interpretation Comments RDW (test code = RDW) 13.0 11.5-14.5 [facility] CampusIwvpkhvUQNOXLRJIG1183-84-07 12:31:00 Test Item Value Reference Range Interpretation Comments MCHC (test code = MCHC) 35.1 32.0-36.0 [facility] CampusQjtjjzjDLGBVYOHHJ3432-97-03 12:31:00 Test Item Value Reference Range Interpretation Comments WBC (test code = WBC) 9.4 3.7-10.4 [facility] CampusLzqtcifYUOWMJKBHZ3647-54-09 12:59:00 Test Item Value Reference Range Interpretation Comments RDW (test code = RDW) 12.8 11.5-14.5 [facility] CampusKccjhthYEFWXLDCCP3597-13-38 12:59:00 Test Item Value Reference Range Interpretation Comments MPV (test code = MPV) 8.7 7.4-10.4 [facility] CampusXoioqdeIYMJCWLESH0073-93-62 12:59:00 Test Item Value Reference Range Interpretation Comments Basophils # (test code 0.1 See_Comment [Aut omated message] The = Basophils #) system which generated this result tra nsmitted reference range : <=0.2. The reference r jay was not used to int erpret this result as normal/abnormal . [facility] CampusMjdvbjpSZFDVQBSET8638-50-87 12:59:00 Test Item Value Reference Range Interpretation Comments Monocytes # (test code 0.7 See_Comment [Aut omated message] The = Monocytes #) system which generated this result tra nsmitted reference range : <=0.8. The reference r jay was not used to int erpret this result as normal/abnormal . [facility]JjwmlhnBWKHUSLLCL3564-75-85 12:59:00 Test Item Value Reference Range Interpretation Comments Eosinophils # (test code 0.5 See_Comment [A utomated message] The = Eosinophils #) system whic h generated this result tra nsmitted reference range : <=0.5. The reference r jay was not used to int erpret this result as normal/abnormal . [facility] CampusIeowaexCQHQVWKAOQ9321-40-83 12:59:00 Test Item Value Reference Range Interpretation Comments Segs (test code = Segs) 60.0 45.0-75.0 [facility] CampusLgncrosRXVYOQSCFQ1024-55-47 12:59:00 Test Item Value Reference Range Interpretation Comments Lymphocytes # (test code = Lymphocytes 2.1 1.0-5.5 #) [facility] CampusIogvsdeCBJMREVVQP7593-46-23 12:59:00 Test Item Value Reference Range Interpretation Comments Segs-Bands # (test code = Segs-Bands #) 5.2 1.5-8.1 [facility] CampusMrysglvVWDEJTUXFF7449-60-30 12:59:00 Test Item Value Reference Range Interpretation Comments Basophils (test code = 1.6 See_Comment [Aut omated message] The Basophils) system which ge nerated this result tra nsmitted reference range : <=1.0. The reference r jay was not used to int erpret this result as normal/abnormal . [facility] CampusLqzejhnEXODTSJZJI6860-31-27 12:59:00 Test Item Value Reference Range Interpretation Comments Eosinophils (test code = 5.7 See_Comment [A utomated message] The Eosinophils) system which ge nerated this result tra nsmitted reference range : <=4.0. The reference r jay was not used to int erpret this result as normal/abnormal . [facility] CampusAbekmwmGULLMSUJOZ3877-18-34 12:59:00 Test Item Value Reference Range Interpretation Comments Lymphocytes (test code = Lymphocytes) 24.2 20.0-40.0 [facility] CampusNrxvwbcOGILGROJJU6010-96-05 12:59:00 Test Item Value Reference Range Interpretation Comments Monocytes (test code = Monocytes) 8.5 2.0-12.0 [facility] ResourcesSalhgedLPOVIQVLGPUA7897-36-47 12:59:00 Test Item Value Reference Range Interpretation Comments AGAP (test code = AGAP) 9.3 10.0-20.0 [facility]GgfputnOBCPQZADUEJA3156-31-20 12:59:00 Test Item Value Reference Range Interpretation Comments eGFR (test code = eGFR) 74 [facility] RegionOggfrzgSBALQMUEVRKE2034-39-69 12:59:00 Test Item Value Reference Range Interpretation Comments Chloride Lvl (test code = Chloride Lvl) 106 95-109 [facility] RegionZyvgkajSDFPDUSFFJRU0515-69-82 12:59:00 Test Item Value Reference Range Interpretation Comments Potassium Lvl (test code = Potassium 4.3 3.5-5.1 Lvl) [facility] RegionRzklizxHNWQZXHVOQXS7418-64-55 12:59:00 Test Item Value Reference Range Interpretation Comments Calcium Lvl (test code = Calcium Lvl) 8.2 8.5-10.5 [facility] RegionTivahymHAOQIDJFXZKU1299-54-13 12:59:00 Test Item Value Reference Range Interpretation Comments CO2 (test code = CO2) 28 24-32 [facility] RegionOjswbsrWGQSRLLKAKIZ6852-29-27 12:59:00 Test Item Value Reference Range Interpretation Comments Creatinine Lvl (test code = Creatinine 1.18 0.50-1.40 Lvl) [facility] RegionCtwpwqfGAGKVDEJFEXU0398-74-59 12:59:00 Test Item Value Reference Range Interpretation Comments Glucose Lvl (test code = Glucose Lvl) 135 70-99 [facility] RegionTpajtydQEHSUWLPSWOM4887-37-34 12:59:00 Test Item Value Reference Range Interpretation Comments Sodium Lvl (test code = Sodium Lvl) 139 135-145 [facility] RegionSeyxfdwHISKJGMCSECK8377-52-05 12:59:00 Test Item Value Reference Range Interpretation Comments BUN (test code = BUN) 13 7-22 [facility] CampusYugxgcdDYCCIOTQMY3043-44-60 12:59:00 Test Item Value Reference Range Interpretation Comments MCH (test code = MCH) 31.1 pg 27.0-31.0 [facility] CampusFmjzizdNIMVGLTPYE8654-27-15 12:59:00 Test Item Value Reference Range Interpretation Comments MCV (test code = MCV) 88.4 80.0-94.0 [facility] CampusEokatrcYQFERHTEHR5724-06-23 12:59:00 Test Item Value Reference Range Interpretation Comments Hct (test code = Hct) 38.8 42.0-54.0 [place] 955885-12-18 12:59:00 Test Item Value Reference Range Interpretation Comments MCHC (test code = MCHC) 35.2 32.0-36.0 [facility] CampusQnunngtANUTGELUAX1869-98-01 12:59:00 Test Item Value Reference Range Interpretation Comments WBC (test code = WBC) 8.6 3.7-10.4 [facility] CampusEamwwbpVROTGXQEJH8884-60-38 12:59:00 Test Item Value Reference Range Interpretation Comments Hgb (test code = Hgb) 13.7 14.0-18.0 [place] [address]-12-18 12:59:00 Test Item Value Reference Range Interpretation Comments RBC (test code = RBC) 4.39 4.70-6.10 [facility] CampusAsxaxfnXCRDPOHLWF2603-82-81 12:59:00 Test Item Value Reference Range Interpretation Comments Platelet (test code = Platelet) 194 133-450 [facility] CampusFsptjgkFELQSUTQRB7434-92-09 12:59:00 Test Item Value Reference Range Interpretation Comments RDW (test code = RDW) 12.8 11.5-14.5 [facility] CampusKlcbaafCIWZACEICS7978-58-48 12:59:00 Test Item Value Reference Range Interpretation Comments MPV (test code = MPV) 8.7 7.4-10.4 [facility] CampusCwxoowyTVHGVPVLJN3749-46-00 12:59:00 Test Item Value Reference Range Interpretation Comments Basophils # (test code 0.1 See_Comment [Aut omated message] The = Basophils #) system which generated this result tra nsmitted reference range : <=0.2. The reference r jay was not used to int erpret this result as normal/abnormal . [facility] CampusLrzbnrmBTYPHMLDPO8006-30-57 12:59:00 Test Item Value Reference Range Interpretation Comments Monocytes # (test code 0.7 See_Comment [Aut omated message] The = Monocytes #) system which generated this result tra nsmitted reference range : <=0.8. The reference r jay was not used to int erpret this result as normal/abnormal . [facility] CampusHekymizKPPSZMRTXS3344-17-09 12:59:00 Test Item Value Reference Range Interpretation Comments Eosinophils # (test code 0.5 See_Comment [A utomated message] The = Eosinophils #) system whic h generated this result tra nsmitted reference range : <=0.5. The reference r jay was not used to int erpret this result as normal/abnormal . [facility] CampusCpjzgymBMBREDWFOO5886-04-22 12:59:00 Test Item Value Reference Range Interpretation Comments Segs (test code = Segs) 60.0 45.0-75.0 [facility] CampusEhspsinAQFPFHZYCL3532-09-28 12:59:00 Test Item Value Reference Range Interpretation Comments Lymphocytes # (test code = Lymphocytes 2.1 1.0-5.5 #) [facility] CampusOzhaqqhCXWTLBJVHQ7850-56-47 12:59:00 Test Item Value Reference Range Interpretation Comments Segs-Bands # (test code = Segs-Bands #) 5.2 1.5-8.1 [facility] CampusUbrabolRKPPNYUTUO1118-68-56 12:59:00 Test Item Value Reference Range Interpretation Comments Basophils (test code = 1.6 See_Comment [Aut omated message] The Basophils) system which ge nerated this result tra nsmitted reference range : <=1.0. The reference r jay was not used to int erpret this result as normal/abnormal . [facility] CampusOavghtwZDDFTPBMNG6164-64-30 12:59:00 Test Item Value Reference Range Interpretation Comments Eosinophils (test code = 5.7 See_Comment [A utomated message] The Eosinophils) system which ge nerated this result tra nsmitted reference range : <=4.0. The reference r jay was not used to int erpret this result as normal/abnormal . [facility] CampusCxkhbkqDKEBPGAZNO9149-63-29 12:59:00 Test Item Value Reference Range Interpretation Comments Lymphocytes (test code = Lymphocytes) 24.2 20.0-40.0 [facility] CampusOxspoilOKMJTCWFSI3699-52-43 12:59:00 Test Item Value Reference Range Interpretation Comments Monocytes (test code = Monocytes) 8.5 2.0-12.0 [facility] RegionQijxztzLJGXGWDEAYNX7566-32-55 12:59:00 Test Item Value Reference Range Interpretation Comments AGAP (test code = AGAP) 9.3 10.0-20.0 [facility] RegionLznufjuEJVWACICJTID6678-60-34 12:59:00 Test Item Value Reference Range Interpretation Comments eGFR (test code = eGFR) 74 [facility] RegionTdwiaocUZPVUNKJOUML6906-33-87 12:59:00 Test Item Value Reference Range Interpretation Comments Chloride Lvl (test code = Chloride Lvl) 106 95-109 [facility] RegionXhcqicdLCCZCJBVKHNB0027-42-06 12:59:00 Test Item Value Reference Range Interpretation Comments Potassium Lvl (test code = Potassium 4.3 3.5-5.1 Lvl) [facility] RegionHcjvaegHPWDGHOZCPTP1392-31-16 12:59:00 Test Item Value Reference Range Interpretation Comments Calcium Lvl (test code = Calcium Lvl) 8.2 8.5-10.5 [facility] RegionImsjlnpXRYMEKEESTKM9974-55-24 12:59:00 Test Item Value Reference Range Interpretation Comments CO2 (test code = CO2) 28 24-32 [facility] RegionIpaupylSEVFPLZDYCLK5909-79-34 12:59:00 Test Item Value Reference Range Interpretation Comments Creatinine Lvl (test code = Creatinine 1.18 0.50-1.40 Lvl) [facility] RegionIotebomJZOJDHFSKFKU6596-52-21 12:59:00 Test Item Value Reference Range Interpretation Comments Glucose Lvl (test code = Glucose Lvl) 135 70-99 [facility] RegionOchdvxaSOCXWYEXXLBV8026-49-79 12:59:00 Test Item Value Reference Range Interpretation Comments Sodium Lvl (test code = Sodium Lvl) 139 135-145 [facility] RegionBkaddcjOOVKDIGVACBQ5996-03-75 12:59:00 Test Item Value Reference Range Interpretation Comments BUN (test code = BUN) 13 7-22 [facility] CampusYnkzhcyGMOYSDFROC8275-61-10 12:59:00 Test Item Value Reference Range Interpretation Comments MCH (test code = MCH) 31.1 pg 27.0-31.0 [facility] CampusRydmwpmEYSGVGLVUN3143-26-51 12:59:00 Test Item Value Reference Range Interpretation Comments MCV (test code = MCV) 88.4 80.0-94.0 [facility] CampusZppslkjBXROIKRLTG4249-03-37 12:59:00 Test Item Value Reference Range Interpretation Comments Hct (test code = Hct) 38.8 42.0-54.0 [facility] CampusJxetappJBGTJUWEKY3990-58-30 12:59:00 Test Item Value Reference Range Interpretation Comments MCHC (test code = MCHC) 35.2 32.0-36.0 [facility] CampusUizthvbZMMSFCHXHU9147-63-29 12:59:00 Test Item Value Reference Range Interpretation Comments WBC (test code = WBC) 8.6 3.7-10.4 [facility] CampusQxprhbqZWAPNWVWKU8339-24-86 12:59:00 Test Item Value Reference Range Interpretation Comments Hgb (test code = Hgb) 13.7 14.0-18.0 [facility] CampusAijzrbkIPELFSXUCY7637-73-69 12:59:00 Test Item Value Reference Range Interpretation Comments RBC (test code = RBC) 4.39 4.70-6.10 [facility] CampusBlvkzmcZUFGULQMNA6480-21-48 12:59:00 Test Item Value Reference Range Interpretation Comments Platelet (test code = Platelet) 194 133-450 [facility] CampusLjftrpeMPHTJEIKJL7303-75-46 12:59:00 Test Item Value Reference Range Interpretation Comments RDW (test code = RDW) 12.8 11.5-14.5 [facility] CampusCnkcucsYAUUYUHSSP3421-85-21 12:59:00 Test Item Value Reference Range Interpretation Comments MPV (test code = MPV) 8.7 7.4-10.4 [facility] CampusOjskejqKPCJYRXOZW8792-48-91 12:59:00 Test Item Value Reference Range Interpretation Comments Basophils # (test code 0.1 See_Comment [Aut omated message] The = Basophils #) system which generated this result tra nsmitted reference range : <=0.2. The reference r jay was not used to int erpret this result as normal/abnormal . [facility] CampusImshrstXKYVTNSNYO2137-45-42 12:59:00 Test Item Value Reference Range Interpretation Comments Monocytes # (test code 0.7 See_Comment [Aut omated message] The = Monocytes #) system which generated this result tra nsmitted reference range : <=0.8. The reference r jay was not used to int erpret this result as normal/abnormal . [facility] CampusPkrhqimBVCYRVANSR3489-17-90 12:59:00 Test Item Value Reference Range Interpretation Comments Eosinophils # (test code 0.5 See_Comment [A utomated message] The = Eosinophils #) system whic h generated this result tra nsmitted reference range : <=0.5. The reference r jay was not used to int erpret this result as normal/abnormal . [facility] CampusPmjwrdgEOTFIOEUEI7867-32-97 12:59:00 Test Item Value Reference Range Interpretation Comments Segs (test code = Segs) 60.0 45.0-75.0 [facility] CampusUvemitoFKXWDYGWEP1593-30-51 12:59:00 Test Item Value Reference Range Interpretation Comments Lymphocytes # (test code = Lymphocytes 2.1 1.0-5.5 #) [facility] CampusJodkvkqFJHLBGXBJM5842-33-82 12:59:00 Test Item Value Reference Range Interpretation Comments Segs-Bands # (test code = Segs-Bands #) 5.2 1.5-8.1 [facility] CampusUkplijhNGAJJHHQKF9182-49-77 12:59:00 Test Item Value Reference Range Interpretation Comments Basophils (test code = 1.6 See_Comment [Aut omated message] The Basophils) system which ge nerated this result tra nsmitted reference range : <=1.0. The reference r jay was not used to int erpret this result as normal/abnormal . [facility] CampusIjzjaraSNZZALEXXS0383-99-68 12:59:00 Test Item Value Reference Range Interpretation Comments Eosinophils (test code = 5.7 See_Comment [A utomated message] The Eosinophils) system which ge nerated this result tra nsmitted reference range : <=4.0. The reference r jay was not used to int erpret this result as normal/abnormal . [facility] CampusGshwbgmLCCVQYVIZY1593-83-61 12:59:00 Test Item Value Reference Range Interpretation Comments Lymphocytes (test code = Lymphocytes) 24.2 20.0-40.0 [facility] CampusKxaembyNJAXXAIILM5810-99-98 12:59:00 Test Item Value Reference Range Interpretation Comments Monocytes (test code = Monocytes) 8.5 2.0-12.0 [facility] RegionHzpffxzCNHVNQNLTCUU1072-79-86 12:59:00 Test Item Value Reference Range Interpretation Comments AGAP (test code = AGAP) 9.3 10.0-20.0 [facility] RegionHhbaavvSKUOHPFJNXSF8129-85-46 12:59:00 Test Item Value Reference Range Interpretation Comments eGFR (test code = eGFR) 74 [facility] RegionUnkvllyPGMFAOCBOSRG6498-62-43 12:59:00 Test Item Value Reference Range Interpretation Comments Chloride Lvl (test code = Chloride Lvl) 106 95-109 [facility] RegionNysjpkrOBXXJPOQHFEC6065-77-39 12:59:00 Test Item Value Reference Range Interpretation Comments Potassium Lvl (test code = Potassium 4.3 3.5-5.1 Lvl) [facility] RegionCvggzfhFYKYKISVKBUO5177-09-23 12:59:00 Test Item Value Reference Range Interpretation Comments Calcium Lvl (test code = Calcium Lvl) 8.2 8.5-10.5 [facility] RegionXwfdcfcYOVIEDLMHJMJ1301-74-03 12:59:00 Test Item Value Reference Range Interpretation Comments CO2 (test code = CO2) 28 24-32 [facility] RegionTuytsejEISANAIYJVSE2570-49-50 12:59:00 Test Item Value Reference Range Interpretation Comments Creatinine Lvl (test code = Creatinine 1.18 0.50-1.40 Lvl) [facility] RegionUvmhjmmDVQTYKYHWHTG1052-91-13 12:59:00 Test Item Value Reference Range Interpretation Comments Glucose Lvl (test code = Glucose Lvl) 135 70-99 [facility] RegionIxotdleFSQFLFTIJTFG0091-56-04 12:59:00 Test Item Value Reference Range Interpretation Comments Sodium Lvl (test code = Sodium Lvl) 139 135-145 [facility] RegionCqhpgerEYOVLPTTAIGA6872-48-21 12:59:00 Test Item Value Reference Range Interpretation Comments BUN (test code = BUN) 13 7-22 [facility] CampusXqizwpvBOLCDVHXML7201-04-61 12:59:00 Test Item Value Reference Range Interpretation Comments MCH (test code = MCH) 31.1 pg 27.0-31.0 [facility] CampusJbcuklxQYSWSMVIWR3515-21-45 12:59:00 Test Item Value Reference Range Interpretation Comments MCV (test code = MCV) 88.4 80.0-94.0 [facility] CampusYsohrqlLPCHVJTPBN5430-08-47 12:59:00 Test Item Value Reference Range Interpretation Comments Hct (test code = Hct) 38.8 42.0-54.0 [facility] CampusNsxalzfWQWDSMNQKM4161-84-06 12:59:00 Test Item Value Reference Range Interpretation Comments MCHC (test code = MCHC) 35.2 32.0-36.0 [facility] CampusRpehkczAHTYJHTNYY1232-59-78 12:59:00 Test Item Value Reference Range Interpretation Comments WBC (test code = WBC) 8.6 3.7-10.4 [facility] CampusGmbofqfLFMVFKVQEI4490-18-52 12:59:00 Test Item Value Reference Range Interpretation Comments Hgb (test code = Hgb) 13.7 14.0-18.0 [facility] CampusNomfcwpHVEOXVPMMF6877-62-64 12:59:00 Test Item Value Reference Range Interpretation Comments RBC (test code = RBC) 4.39 4.70-6.10 [facility] ResourcesHgonvjbLVOKNANGFD5554-61-57 12:59:00 Test Item Value Reference Range Interpretation Comments Platelet (test code = Platelet) 194 133-450 [facility] ResourcesQtcnikhLCQYJLUNKQ0196-86-20 02:24:00 Test Item Value Reference Range Interpretation Comments Vanco Pk TLD (test code = Vanco Pk TLD) [address] [facility] ResourcesEoldvqoRAXAXOCZME0908-22-49 02:24:00 Test Item Value Reference Range Interpretation Comments Vanco Pk (test code = Vanco Pk) 19.4 [facility] ResourcesMybcyddCTURCOBZVT6409-99-61 02:24:00 Test Item Value Reference Range Interpretation Comments Vanco Pk TLD (test code = Vanco Pk TLD) [address] [facility]JwchdeyVXNIFYHHBZ3796-99-54 02:24:00 Test Item Value Reference Range Interpretation Comments Vanco Pk (test code = Vanco Pk) 19.4 [facility] ResourcesJqfacmrNAGURUHRVZ7518-04-10 02:24:00 Test Item Value Reference Range Interpretation Comments Vanco Pk TLD (test code = Vanco Pk TLD) [address] [facility] HeightsSdrdyliIRVGRAJXIA9196-34-02 02:24:00 Test Item Value Reference Range Interpretation Comments Vanco Pk (test code = Vanco Pk) 19.4 [facility] ResourcesOjmpefrXVUGHZNYZK7326-69-21 22:20:00 Test Item Value Reference Range Interpretation Comments Vanco Tr TND (test code = Vanco Tr TND) [facility] [facility] HeightsRzdtudkTBAJXFFQXG8080-21-02 22:20:00 Test Item Value Reference Range Interpretation Comments Vanco Tr (test code = Vanco Tr) 8.6 [facility] ResourcesQioaeebXBTWGYSOXV2610-82-42 22:20:00 Test Item Value Reference Range Interpretation Comments Vanco Tr TND (test code = Vanco Tr TND) [address] [facility] HeightsUfipfpwQKVMHOWTAS8803-11-06 22:20:00 Test Item Value Reference Range Interpretation Comments Vanco Tr (test code = Vanco Tr) 8.6 [facility] ResourcesIbbjnpbUILUSBBJUG1752-87-62 22:20:00 Test Item Value Reference Range Interpretation Comments Vanco Tr TND (test code = Vanco Tr TND) [facility] [facility]TpstbguBGXBLFCWNA6559-70-74 22:20:00 Test Item Value Reference Range Interpretation Comments Vanco Tr (test code = Vanco Tr) 8.6 [facility]2015-12-17 10:43:00 Test Item Value Reference Range Interpretation Comments Calcium Lvl (test code = Calcium Lvl) 8.2 8.5-10.5 [facility]2015-12-17 10:43:00 Test Item Value Reference Range Interpretation Comments Potassium Lvl (test code = Potassium 3.9 3.5-5.1 Lvl) [facility]2015-12-17 10:43:00 Test Item Value Reference Range Interpretation Comments Sodium Lvl (test code = Sodium Lvl) 141 135-145 [facility]2015-12-17 10:43:00 Test Item Value Reference Range Interpretation Comments Creatinine Lvl (test code = Creatinine 1.22 0.50-1.40 Lvl) [facility]2015-12-17 10:43:00 Test Item Value Reference Range Interpretation Comments Chloride Lvl (test code = Chloride Lvl) 105 95-109 [facility]2015-12-17 10:43:00 Test Item Value Reference Range Interpretation Comments CO2 (test code = CO2) 28 24-32 [facility]2015-12-17 10:43:00 Test Item Value Reference Range Interpretation Comments Glucose Lvl (test code = Glucose Lvl) 154 70-99 [facility]2015-12-17 10:43:00 Test Item Value Reference Range Interpretation Comments BUN (test code = BUN) 20 7-22 [facility]2015-12-17 10:43:00 Test Item Value Reference Range Interpretation Comments eGFR (test code = eGFR) 71 [facility]2015-12-17 10:43:00 Test Item Value Reference Range Interpretation Comments AGAP (test code = AGAP) 11.9 10.0-20.0 [facility]SjzkneiLTLACCIRJG0707-02-16 10:43:00 Test Item Value Reference Range Interpretation Comments Segs (test code = Segs) 54.0 45.0-75.0 [facility] CampusXhlcthrKRMQMRODXC4643-60-91 10:43:00 Test Item Value Reference Range Interpretation Comments Lymphocytes (test code = Lymphocytes) 30.3 20.0-40.0 [facility] CampusXvhnzhbXAGGHUOXFQ1704-24-25 10:43:00 Test Item Value Reference Range Interpretation Comments Eosinophils (test code = 6.2 See_Comment [A utomated message] The Eosinophils) system which ge nerated this result tra nsmitted reference range : <=4.0. The reference r jay was not used to int erpret this result as normal/abnormal . [facility] CampusWhgbhgqRZLDYERVSP4739-17-45 10:43:00 Test Item Value Reference Range Interpretation Comments Lymphocytes # (test code = Lymphocytes 2.4 1.0-5.5 #) [facility] CampusFylmjqnELETUXNPJE0955-51-37 10:43:00 Test Item Value Reference Range Interpretation Comments Basophils (test code = 1.2 See_Comment [Aut omated message] The Basophils) system which ge nerated this result tra nsmitted reference range : <=1.0. The reference r jay was not used to int erpret this result as normal/abnormal . [facility] CampusBtngqerFMHIDKXUJT7855-78-54 10:43:00 Test Item Value Reference Range Interpretation Comments Monocytes (test code = Monocytes) 8.3 2.0-12.0 [facility] CampusQdsjrekEXQYBGKJSI9885-12-67 10:43:00 Test Item Value Reference Range Interpretation Comments Segs-Bands # (test code = Segs-Bands #) 4.3 1.5-8.1 [facility] CampusUpuxitmZIJQOHCRKY0345-46-11 10:43:00 Test Item Value Reference Range Interpretation Comments Basophils # (test code 0.1 See_Comment [Aut omated message] The = Basophils #) system which generated this result tra nsmitted reference range : <=0.2. The reference r jay was not used to int erpret this result as normal/abnormal . [facility] CampusVnnmuutGACZHPENKV8728-35-68 10:43:00 Test Item Value Reference Range Interpretation Comments Eosinophils # (test code 0.5 See_Comment [A utomated message] The = Eosinophils #) system whic h generated this result tra nsmitted reference range : <=0.5. The reference r jay was not used to int erpret this result as normal/abnormal . [facility] CampusZkhzluoANBAMZTBOV7139-95-97 10:43:00 Test Item Value Reference Range Interpretation Comments Monocytes # (test code 0.7 See_Comment [Aut omated message] The = Monocytes #) system which generated this result tra nsmitted reference range : <=0.8. The reference r jay was not used to int erpret this result as normal/abnormal . [facility]AtrwynwXSHVKSXMIF9987-29-65 10:43:00 Test Item Value Reference Range Interpretation Comments RDW (test code = RDW) 12.9 11.5-14.5 [facility]NraeytcTBJZZHUFZD1005-50-91 10:43:00 Test Item Value Reference Range Interpretation Comments MCHC (test code = MCHC) 34.7 32.0-36.0 [facility] CampusCsxtjrrSGVHLGQWVR3231-36-12 10:43:00 Test Item Value Reference Range Interpretation Comments MPV (test code = MPV) 9.1 7.4-10.4 [facility] CampusIglxjsqJWVPLDQIDF1227-19-83 10:43:00 Test Item Value Reference Range Interpretation Comments Platelet (test code = Platelet) 214 133-450 [facility]SntqmduVUGCJDIDYC7139-13-57 10:43:00 Test Item Value Reference Range Interpretation Comments Hgb (test code = Hgb) 14.1 14.0-18.0 [facility] CampusBkwpcinQDTDVFGKAC5706-75-51 10:43:00 Test Item Value Reference Range Interpretation Comments MCV (test code = MCV) 89.2 80.0-94.0 [facility]OhetrzmPACMEUYAQT4579-29-16 10:43:00 Test Item Value Reference Range Interpretation Comments Hct (test code = Hct) 40.8 42.0-54.0 [facility]XqaaivxFPDRHCJRBP7575-54-10 10:43:00 Test Item Value Reference Range Interpretation Comments MCH (test code = MCH) 31.0 pg 27.0-31.0 [facility] CampusFlwwhntHPXCQTCFRN6799-71-36 10:43:00 Test Item Value Reference Range Interpretation Comments WBC (test code = WBC) 7.9 3.7-10.4 [facility] CampusEqrzdogFIPPTWDLQR3027-57-28 10:43:00 Test Item Value Reference Range Interpretation Comments RBC (test code = RBC) 4.57 4.70-6.10 [facility]QisunaxTVYVHGUEFJ0309-92-71 10:43:00 Test Item Value Reference Range Interpretation Comments INR (test code = INR) 1.06 0.85-1.17 [facility] CampusDlrvhpaLITGPDZKUT1858-85-22 10:43:00 Test Item Value Reference Range Interpretation Comments PTT (test code = PTT) 32.3 s 22.9-35.8 [facility] CampusRkrhdatBXJTIPHDDZ7314-08-08 10:43:00 Test Item Value Reference Range Interpretation Comments PT (test code = PT) 14.1 s 12.0-14.7 [facility]2015-12-17 10:43:00 Test Item Value Reference Range Interpretation Comments Calcium Lvl (test code = Calcium Lvl) 8.2 8.5-10.5 [facility]2015-12-17 10:43:00 Test Item Value Reference Range Interpretation Comments Potassium Lvl (test code = Potassium 3.9 3.5-5.1 Lvl) [facility]2015-12-17 10:43:00 Test Item Value Reference Range Interpretation Comments Sodium Lvl (test code = Sodium Lvl) 141 135-145 [facility]2015-12-17 10:43:00 Test Item Value Reference Range Interpretation Comments Creatinine Lvl (test code = Creatinine 1.22 0.50-1.40 Lvl) [facility]2015-12-17 10:43:00 Test Item Value Reference Range Interpretation Comments Chloride Lvl (test code = Chloride Lvl) 105 95-109 [facility]2015-12-17 10:43:00 Test Item Value Reference Range Interpretation Comments CO2 (test code = CO2) 28 24-32 [facility]2015-12-17 10:43:00 Test Item Value Reference Range Interpretation Comments Glucose Lvl (test code = Glucose Lvl) 154 70-99 [facility]2015-12-17 10:43:00 Test Item Value Reference Range Interpretation Comments BUN (test code = BUN) 20 7-22 [facility]2015-12-17 10:43:00 Test Item Value Reference Range Interpretation Comments eGFR (test code = eGFR) 71 [facility]2015-12-17 10:43:00 Test Item Value Reference Range Interpretation Comments AGAP (test code = AGAP) 11.9 10.0-20.0 [facility] CampusUpkkamyQSYSEHNPKI3278-57-71 10:43:00 Test Item Value Reference Range Interpretation Comments Segs (test code = Segs) 54.0 45.0-75.0 [facility] CampusIfdyvwxIDVTDKCIVG4383-26-41 10:43:00 Test Item Value Reference Range Interpretation Comments Lymphocytes (test code = Lymphocytes) 30.3 20.0-40.0 [facility] CampusRhodsfeXQNJFXPUIY7014-21-66 10:43:00 Test Item Value Reference Range Interpretation Comments Eosinophils (test code = 6.2 See_Comment [A utomated message] The Eosinophils) system which ge nerated this result tra nsmitted reference range : <=4.0. The reference r jay was not used to int erpret this result as normal/abnormal . [facility] CampusBarvhakOERETUBZPO5689-30-02 10:43:00 Test Item Value Reference Range Interpretation Comments Lymphocytes # (test code = Lymphocytes 2.4 1.0-5.5 #) [facility] CampusTyolnxlRTXQFZOTQL2038-25-31 10:43:00 Test Item Value Reference Range Interpretation Comments Basophils (test code = 1.2 See_Comment [Aut omated message] The Basophils) system which ge nerated this result tra nsmitted reference range : <=1.0. The reference r jay was not used to int erpret this result as normal/abnormal . [facility] CampusHuxuwhaIXWSPYDZAO9879-93-19 10:43:00 Test Item Value Reference Range Interpretation Comments Monocytes (test code = Monocytes) 8.3 2.0-12.0 [facility] CampusItwoyubQLZXEARPWH3996-65-54 10:43:00 Test Item Value Reference Range Interpretation Comments Segs-Bands # (test code = Segs-Bands #) 4.3 1.5-8.1 [facility] CampusMpzzszaTLJOOWEFWO9364-34-75 10:43:00 Test Item Value Reference Range Interpretation Comments Basophils # (test code 0.1 See_Comment [Aut omated message] The = Basophils #) system which generated this result tra nsmitted reference range : <=0.2. The reference r jay was not used to int erpret this result as normal/abnormal . [facility] CampusFzyvvyoURWRTBVDEX7644-71-65 10:43:00 Test Item Value Reference Range Interpretation Comments Eosinophils # (test code 0.5 See_Comment [A utomated message] The = Eosinophils #) system whic h generated this result tra nsmitted reference range : <=0.5. The reference r jay was not used to int erpret this result as normal/abnormal . [facility] CampusEcqsbszCPJQZLUNGK5347-51-48 10:43:00 Test Item Value Reference Range Interpretation Comments Monocytes # (test code 0.7 See_Comment [Aut omated message] The = Monocytes #) system which generated this result tra nsmitted reference range : <=0.8. The reference r jay was not used to int erpret this result as normal/abnormal . [facility] CampusBtarctnHKQACYIKKC7865-82-59 10:43:00 Test Item Value Reference Range Interpretation Comments RDW (test code = RDW) 12.9 11.5-14.5 [facility] CampusTbhiureZSAIAUDWHM2574-93-60 10:43:00 Test Item Value Reference Range Interpretation Comments MCHC (test code = MCHC) 34.7 32.0-36.0 [facility] CampusFsgrvhrAPWXRBCMHF5138-51-21 10:43:00 Test Item Value Reference Range Interpretation Comments MPV (test code = MPV) 9.1 7.4-10.4 [facility] CampusEocxchxLNKAMORKZZ3302-36-39 10:43:00 Test Item Value Reference Range Interpretation Comments Platelet (test code = Platelet) 214 133-450 [facility] CampusEtmmntyFQYUREVNPW2279-95-52 10:43:00 Test Item Value Reference Range Interpretation Comments Hgb (test code = Hgb) 14.1 14.0-18.0 [facility] CampusYcrwmpxAPAIJEIDLT2689-13-94 10:43:00 Test Item Value Reference Range Interpretation Comments MCV (test code = MCV) 89.2 80.0-94.0 [facility] CampusEgsnvyxXWXIFRQCQH2372-96-50 10:43:00 Test Item Value Reference Range Interpretation Comments Hct (test code = Hct) 40.8 42.0-54.0 [facility] CampusYgwswnrYYHGZCMFCS6300-00-11 10:43:00 Test Item Value Reference Range Interpretation Comments MCH (test code = MCH) 31.0 pg 27.0-31.0 [facility] CampusTtmsvoxFWZMCHWFYU7837-10-59 10:43:00 Test Item Value Reference Range Interpretation Comments WBC (test code = WBC) 7.9 3.7-10.4 [facility] CampusUfmvgfbVXNGYLFRIK9723-28-36 10:43:00 Test Item Value Reference Range Interpretation Comments RBC (test code = RBC) 4.57 4.70-6.10 [facility] CampusGrltpgsSCHEOXGZQL7920-11-34 10:43:00 Test Item Value Reference Range Interpretation Comments INR (test code = INR) 1.06 0.85-1.17 [facility] CampusWutybjqQZOEHVTFUU9587-90-97 10:43:00 Test Item Value Reference Range Interpretation Comments PTT (test code = PTT) 32.3 s 22.9-35.8 [place] 955885-12-17 10:43:00 Test Item Value Reference Range Interpretation Comments PT (test code = PT) 14.1 s 12.0-14.7 [facility]2015-12-17 10:43:00 Test Item Value Reference Range Interpretation Comments Calcium Lvl (test code = Calcium Lvl) 8.2 8.5-10.5 [facility]2015-12-17 10:43:00 Test Item Value Reference Range Interpretation Comments Potassium Lvl (test code = Potassium 3.9 3.5-5.1 Lvl) [facility]2015-12-17 10:43:00 Test Item Value Reference Range Interpretation Comments Sodium Lvl (test code = Sodium Lvl) 141 135-145 [facility]2015-12-17 10:43:00 Test Item Value Reference Range Interpretation Comments Creatinine Lvl (test code = Creatinine 1.22 0.50-1.40 Lvl) [facility]2015-12-17 10:43:00 Test Item Value Reference Range Interpretation Comments Chloride Lvl (test code = Chloride Lvl) 105 95-109 [facility]2015-12-17 10:43:00 Test Item Value Reference Range Interpretation Comments CO2 (test code = CO2) 28 24-32 [facility]2015-12-17 10:43:00 Test Item Value Reference Range Interpretation Comments Glucose Lvl (test code = Glucose Lvl) 154 70-99 [facility]2015-12-17 10:43:00 Test Item Value Reference Range Interpretation Comments BUN (test code = BUN) 20 7-22 [facility]2015-12-17 10:43:00 Test Item Value Reference Range Interpretation Comments eGFR (test code = eGFR) 71 [facility]2015-12-17 10:43:00 Test Item Value Reference Range Interpretation Comments AGAP (test code = AGAP) 11.9 10.0-20.0 [address]12-17 10:43:00 Test Item Value Reference Range Interpretation Comments Segs (test code = Segs) 54.0 45.0-75.0 [facility] CampusLbeqljzUTZANTAMTN0337-77-71 10:43:00 Test Item Value Reference Range Interpretation Comments Lymphocytes (test code = Lymphocytes) 30.3 20.0-40.0 [facility] CampusEvlkqafGCXVHLZLWN4769-53-53 10:43:00 Test Item Value Reference Range Interpretation Comments Eosinophils (test code = 6.2 See_Comment [A utomated message] The Eosinophils) system which ge nerated this result tra nsmitted reference range : <=4.0. The reference r jay was not used to int erpret this result as normal/abnormal . [facility] CampusGciuhnoSJTHCGKWUO1920-31-42 10:43:00 Test Item Value Reference Range Interpretation Comments Lymphocytes # (test code = Lymphocytes 2.4 1.0-5.5 #) [facility] CampusXvkdeycMASLVKJBXH0640-01-54 10:43:00 Test Item Value Reference Range Interpretation Comments Basophils (test code = 1.2 See_Comment [Aut omated message] The Basophils) system which ge nerated this result tra nsmitted reference range : <=1.0. The reference r jay was not used to int erpret this result as normal/abnormal . [facility] CampusFimdqkuZVPTXSRZCB9179-73-89 10:43:00 Test Item Value Reference Range Interpretation Comments Monocytes (test code = Monocytes) 8.3 2.0-12.0 [facility] CampusVaavrrhXTILTOREJI1475-25-24 10:43:00 Test Item Value Reference Range Interpretation Comments Segs-Bands # (test code = Segs-Bands #) 4.3 1.5-8.1 [facility] CampusIbcjemxQWICGCESIH2625-35-40 10:43:00 Test Item Value Reference Range Interpretation Comments Basophils # (test code 0.1 See_Comment [Aut omated message] The = Basophils #) system which generated this result tra nsmitted reference range : <=0.2. The reference r jay was not used to int erpret this result as normal/abnormal . [facility] CampusNexdgelEXWLZRLPWL6331-30-55 10:43:00 Test Item Value Reference Range Interpretation Comments Eosinophils # (test code 0.5 See_Comment [A utomated message] The = Eosinophils #) system whic h generated this result tra nsmitted reference range : <=0.5. The reference r jay was not used to int erpret this result as normal/abnormal . [facility] CampusZqfscgrUAKPTUXWUW7612-59-84 10:43:00 Test Item Value Reference Range Interpretation Comments Monocytes # (test code 0.7 See_Comment [Aut omated message] The = Monocytes #) system which generated this result tra nsmitted reference range : <=0.8. The reference r jay was not used to int erpret this result as normal/abnormal . [facility] CampusQfbrdkgQQPLARAMTQ2845-34-43 10:43:00 Test Item Value Reference Range Interpretation Comments RDW (test code = RDW) 12.9 11.5-14.5 [facility] CampusIipfyhiXFRJACRSSD5309-61-68 10:43:00 Test Item Value Reference Range Interpretation Comments MCHC (test code = MCHC) 34.7 32.0-36.0 [facility] CampusZuqxnjtFEFYCGMVNP8505-71-15 10:43:00 Test Item Value Reference Range Interpretation Comments MPV (test code = MPV) 9.1 7.4-10.4 [facility] CampusOptwmdeHOQRSRREMK0705-89-34 10:43:00 Test Item Value Reference Range Interpretation Comments Platelet (test code = Platelet) 214 133-450 [facility] CampusToecingPWXQKILUOO2821-10-50 10:43:00 Test Item Value Reference Range Interpretation Comments Hgb (test code = Hgb) 14.1 14.0-18.0 [facility] CampusGeyhcddMVNIYXIIJL1873-50-41 10:43:00 Test Item Value Reference Range Interpretation Comments MCV (test code = MCV) 89.2 80.0-94.0 [facility] CampusNmlkeuiHBYOEGYIKX7099-20-42 10:43:00 Test Item Value Reference Range Interpretation Comments Hct (test code = Hct) 40.8 42.0-54.0 [facility] CampusExjzwviTSJAEYKVOR2837-84-41 10:43:00 Test Item Value Reference Range Interpretation Comments MCH (test code = MCH) 31.0 pg 27.0-31.0 [facility] CampusQlsfrnmFCFWBVIEFA5718-59-69 10:43:00 Test Item Value Reference Range Interpretation Comments WBC (test code = WBC) 7.9 3.7-10.4 [facility] CampusTusgslrENOGZUWGPP0917-33-89 10:43:00 Test Item Value Reference Range Interpretation Comments RBC (test code = RBC) 4.57 4.70-6.10 [facility] CampusLssybhtZTRRLXATFL2202-40-80 10:43:00 Test Item Value Reference Range Interpretation Comments INR (test code = INR) 1.06 0.85-1.17 [facility] CampusYoneqnnRZWTAYZOGD7686-36-62 10:43:00 Test Item Value Reference Range Interpretation Comments PTT (test code = PTT) 32.3 s 22.9-35.8 [facility] CampusKeypxvdOSWFUDUFDA6933-72-74 10:43:00 Test Item Value Reference Range Interpretation Comments PT (test code = PT) 14.1 s 12.0-14.7 [facility]2015-12-16 19:45:00 Test Item Value Reference Range Interpretation Comments AST (test code = AST) 44 See_Comment [Auto mated message] The system which ge nerated this result transmit cesar reference range : <=37. The reference range was not used to interpr et this result as tu l/abnormal. [facility]2015-12-16 19:45:00 Test Item Value Reference Range Interpretation Comments Alk Phos (test code = Alk Phos) 54 39-136 [facility]2015-12-16 19:45:00 Test Item Value Reference Range Interpretation Comments Bili Total (test code = Bili Total) 1.0 0.2-1.3 [facility]2015-12-16 19:45:00 Test Item Value Reference Range Interpretation Comments ALT (test code = ALT) 56 See_Comment [Auto mated message] The system which ge nerated this result transmit cesar reference range : <=65. The reference range was not used to interpr et this result as tu l/abnormal. [facility]2015-12-16 19:45:00 Test Item Value Reference Range Interpretation Comments Albumin Lvl (test code = Albumin Lvl) 3.9 3.5-5.0 [facility]2015-12-16 19:45:00 Test Item Value Reference Range Interpretation Comments Total Protein (test code = Total 8.7 6.4-8.4 Protein) [facility]2015-12-16 19:45:00 Test Item Value Reference Range Interpretation Comments A/G Ratio (test code = A/G Ratio) 0.8 0.7-1.6 [facility] [id number] 19:45:00 Test Item Value Reference Range Interpretation Comments Globulin (test code = Globulin) 4.8 2.0-4.0 [facility] [id number] 19:45:00 Test Item Value Reference Range Interpretation Comments B/C Ratio (test code = B/C Ratio) 14 6-25 [facility] RNLWW4502-09-55 19:45:00 Test Item Value Reference Range Interpretation Comments Lactic Acid Lvl (test code = Lactic 1.9 0.5-2.2 Acid Lvl) [facility] HeightsTynrjhkJIGHQTRFPR9577-73-75 19:45:00 Test Item Value Reference Range Interpretation Comments INR (test code = INR) 1.07 0.85-1.17 [facility]OxuizlgWXATSKRHJD5202-30-63 19:45:00 Test Item Value Reference Range Interpretation Comments PTT (test code = PTT) 30.0 s 22.9-35.8 [facility] SurgeryGrryureKWKTCQGSFP4211-07-02 19:45:00 Test Item Value Reference Range Interpretation Comments PT (test code = PT) 14.2 s 12.0-14.7 [facility] SurgeryJnmwqldHKJNGMZQVM7536-24-36 19:45:00 Test Item Value Reference Range Interpretation Comments Sed Rate (test code = 15 See_Comment [Auto mated message] The Sed Rate) system which ge nerated this result transmit cesar reference range : <=15. The reference range was not used to interpr et this result as tu l/abnormal. [facility] HeightsGdgnrnlPWLBGIKYBT9726-10-57 19:45:00 Test Item Value Reference Range Interpretation Comments Prealbumin (test code = Prealbumin) 12.0 18.0-45.0 [facility] KNXKNPUNP6579-71-76 19:45:00 Test Item Value Reference Range Interpretation Comments Hgb A1C (test code = Hgb A1C) 6.7 [facility] [id number] 19:45:00 Test Item Value Reference Range Interpretation Comments AST (test code = AST) 44 See_Comment [Auto mated message] The system which ge nerated this result transmit cesar reference range : <=37. The reference range was not used to interpr et this result as tu l/abnormal. [facility] [id number] 19:45:00 Test Item Value Reference Range Interpretation Comments Alk Phos (test code = Alk Phos) 54 39-136 [facility]2015-12-16 19:45:00 Test Item Value Reference Range Interpretation Comments Bili Total (test code = Bili Total) 1.0 0.2-1.3 [facility]2015-12-16 19:45:00 Test Item Value Reference Range Interpretation Comments ALT (test code = ALT) 56 See_Comment [Auto mated message] The system which ge nerated this result transmit cesar reference range : <=65. The reference range was not used to interpr et this result as tu l/abnormal. [facility]2015-12-16 19:45:00 Test Item Value Reference Range Interpretation Comments Albumin Lvl (test code = Albumin Lvl) 3.9 3.5-5.0 [facility]2015-12-16 19:45:00 Test Item Value Reference Range Interpretation Comments Total Protein (test code = Total 8.7 6.4-8.4 Protein) [facility]2015-12-16 19:45:00 Test Item Value Reference Range Interpretation Comments A/G Ratio (test code = A/G Ratio) 0.8 0.7-1.6 [facility]2015-12-16 19:45:00 Test Item Value Reference Range Interpretation Comments Globulin (test code = Globulin) 4.8 2.0-4.0 [facility]2015-12-16 19:45:00 Test Item Value Reference Range Interpretation Comments B/C Ratio (test code = B/C Ratio) 14 6-25 [facility]2015-12-16 19:45:00 Test Item Value Reference Range Interpretation Comments Lactic Acid Lvl (test code = Lactic 1.9 0.5-2.2 Acid Lvl) [facility]PxvdedqWBAWOTSTTI2861-66-33 19:45:00 Test Item Value Reference Range Interpretation Comments INR (test code = INR) 1.07 0.85-1.17 [facility] CampusHvcxcdtOELMKUDRFT2381-53-02 19:45:00 Test Item Value Reference Range Interpretation Comments PTT (test code = PTT) 30.0 s 22.9-35.8 [facility] CampusSzltarlKBFQVABGIU5945-38-83 19:45:00 Test Item Value Reference Range Interpretation Comments PT (test code = PT) 14.2 s 12.0-14.7 [facility] HeightsBsapqwyDMBVKGFVXP3333-73-19 19:45:00 Test Item Value Reference Range Interpretation Comments Sed Rate (test code = 15 See_Comment [Auto mated message] The Sed Rate) system which ge nerated this result transmit cesar reference range : <=15. The reference range was not used to interpr et this result as tu l/abnormal. [facility] HeightsHzevxewMLFWDXBDRM3519-31-74 19:45:00 Test Item Value Reference Range Interpretation Comments Prealbumin (test code = Prealbumin) 12.0 18.0-45.0 [facility]SPECIAL [id number] 19:45:00 Test Item Value Reference Range Interpretation Comments Hgb A1C (test code = Hgb A1C) 6.7 [facility] ResourcesT[facility] [id number] 19:45:00 Test Item Value Reference Range Interpretation Comments AST (test code = AST) 44 See_Comment [Auto mated message] The system which ge nerated this result transmit cesar reference range : <=37. The reference range was not used to interpr et this result as tu l/abnormal. [facility] DAQRI [id number] 19:45:00 Test Item Value Reference Range Interpretation Comments Alk Phos (test code = Alk Phos) 54 39-136 [facility] DAQRI [id number] 19:45:00 Test Item Value Reference Range Interpretation Comments Bili Total (test code = Bili Total) 1.0 0.2-1.3 [facility] DAQRI [id number] 19:45:00 Test Item Value Reference Range Interpretation Comments ALT (test code = ALT) 56 See_Comment [Auto mated message] The system which ge nerated this result transmit cesar reference range : <=65. The reference range was not used to interpr et this result as tu l/abnormal. [facility] DAQRI [id number] 19:45:00 Test Item Value Reference Range Interpretation Comments Albumin Lvl (test code = Albumin Lvl) 3.9 3.5-5.0 [facility] ResourcesTapZ[facility] [id number] 19:45:00 Test Item Value Reference Range Interpretation Comments Total Protein (test code = Total 8.7 6.4-8.4 Protein) [facility] HermannCHEM [id number] 19:45:00 Test Item Value Reference Range Interpretation Comments A/G Ratio (test code = A/G Ratio) 0.8 0.7-1.6 [facility] ResourcesannCHEM [id number] 19:45:00 Test Item Value Reference Range Interpretation Comments Globulin (test code = Globulin) 4.8 2.0-4.0 [facility] ResourcesannCHEM [id number] 19:45:00 Test Item Value Reference Range Interpretation Comments B/C Ratio (test code = B/C Ratio) 14 6-25 [facility] ResourcesannCHEM [id number] 19:45:00 Test Item Value Reference Range Interpretation Comments Lactic Acid Lvl (test code = Lactic 1.9 0.5-2.2 Acid Lvl) [facility] [id number] 19:45:00 Test Item Value Reference Range Interpretation Comments INR (test code = INR) 1.07 0.85-1.17 [facility] [id number] 19:45:00 Test Item Value Reference Range Interpretation Comments PTT (test code = PTT) 30.0 s 22.9-35.8 [facility] [id number] 19:45:00 Test Item Value Reference Range Interpretation Comments PT (test code = PT) 14.2 s 12.0-14.7 [id number] 19:45:00 Test Item Value Reference Range Interpretation Comments Sed Rate (test code = 15 See_Comment [Auto mated message] The Sed Rate) system which ge nerated this result transmit cesar reference range : <=15. The reference range was not used to interpr et this result as tu l/abnormal. [facility] [id number] 19:45:00 Test Item Value Reference Range Interpretation Comments Prealbumin (test code = Prealbumin) 12.0 18.0-45.0 [facility]SPE[facility] [id number] 19:45:00 Test Item Value Reference Range Interpretation Comments Hgb A1C (test code = Hgb A1C) 6.7 [facility] [id number] 18:18:00 Test Item Value Reference Range Interpretation Comments UA Sq Epi (test code = None Seen (02/16/15 UA Sq Epi) 12:18 PM) [facility] [id number] 18:18:00 Test Item Value Reference Range Interpretation Comments Micro? (test code = Performed (02/16/15 12:18 Micro?) PM) [facility] [id number] 18:18:00 Test Item Value Reference Range Interpretation Comments UA Leuk Est (test Negative (02/16/15 12:18 code = UA Leuk Est) PM) [facility] [id number] 18:18:00 Test Item Value Reference Range Interpretation Comments UA Nitrite (test code Negative (02/16/15 = UA Nitrite) 12:18 PM) [facility] [id number] 18:18:00 Test Item Value Reference Range Interpretation Comments UA Bacteria (test code = None Seen (02/16/15 UA Bacteria) 12:18 PM) [facility] [id number] 18:18:00 Test Item Value Reference Range Interpretation Comments UA RBC (test code = 0-2 /HPF See_Comment [Automa cesar message] The UA RBC) system which ge nerated this result tra nsmitted reference range : <=2. The reference range was not used to interpr et this result as tu l/abnormal. [facility] [id number] 18:18:00 Test Item Value Reference Range Interpretation Comments UA WBC (test code = UA WBC) 0-2 /HPF [facility] [id number] 18:18:00 Test Item Value Reference Range Interpretation Comments UA Urobilinogen (test code = UA 1.0 0.1-1.0 Urobilinogen) [facility] [id number] 18:18:00 Test Item Value Reference Range Interpretation Comments UA Blood (test code = Negative (02/16/15 12:18 UA Blood) PM) [facility] [id number] 18:18:00 Test Item Value Reference Range Interpretation Comments UA Bili (test code = Negative *NA*(02/16/15 UA Bili) 12:18 PM) [facility] [id number] 18:18:00 Test Item Value Reference Range Interpretation Comments UA Ketones (test code Negative *NA*(02/16/15 = UA Ketones) 12:18 PM) [facility] [id number] 18:18:00 Test Item Value Reference Range Interpretation Comments UA Glucose (test code Negative (02/16/15 = UA Glucose) 12:18 PM) [facility] [id number] 18:18:00 Test Item Value Reference Range Interpretation Comments UA Mucus (test code = None Seen (02/16/15 UA Mucus) 12:18 PM) [facility] [id number] 18:18:00 Test Item Value Reference Range Interpretation Comments UA Protein (test code Negative (02/16/15 = UA Protein) 12:18 PM) [facility] [id number] 18:18:00 Test Item Value Reference Range Interpretation Comments UA pH (test code = UA pH) 6.0 1 5.0-8.0 [facility] [id number] 18:18:00 Test Item Value Reference Range Interpretation Comments UA Color (test code = Yellow *NA*(02/16/15 UA Color) 12:18 PM) [facility] [id number] 18:18:00 Test Item Value Reference Range Interpretation Comments UA Spec Grav (test code = UA Spec 1.025 1 Grav) [facility] [id number] 18:18:00 Test Item Value Reference Range Interpretation Comments UA Turbidity (test code = Clear (02/16/15 UA Turbidity) 12:18 PM) [facility] [id number] 18:18:00 Test Item Value Reference Range Interpretation Comments UA Sq Epi (test code = None Seen (02/16/15 UA Sq Epi) 12:18 PM) [facility] [id number] 18:18:00 Test Item Value Reference Range Interpretation Comments Micro? (test code = Performed (02/16/15 12:18 Micro?) PM) [facility] [id number] 18:18:00 Test Item Value Reference Range Interpretation Comments UA Leuk Est (test Negative (02/16/15 12:18 code = UA Leuk Est) PM) [facility] [id number] 18:18:00 Test Item Value Reference Range Interpretation Comments UA Nitrite (test code Negative (02/16/15 = UA Nitrite) 12:18 PM) [facility] [id number] 18:18:00 Test Item Value Reference Range Interpretation Comments UA Bacteria (test code = None Seen (02/16/15 UA Bacteria) 12:18 PM) [facility] [id number] 18:18:00 Test Item Value Reference Range Interpretation Comments UA RBC (test code = 0-2 /HPF See_Comment [Automa cesar message] The UA RBC) system which ge nerated this result tra nsmitted reference range : <=2. The reference range was not used to interpr et this result as tu l/abnormal. [facility] [id number] 18:18:00 Test Item Value Reference Range Interpretation Comments UA WBC (test code = UA WBC) 0-2 /HPF [facility] [id number] 18:18:00 Test Item Value Reference Range Interpretation Comments UA Urobilinogen (test code = UA 1.0 0.1-1.0 Urobilinogen) [facility] [id number] 18:18:00 Test Item Value Reference Range Interpretation Comments UA Blood (test code = Negative (02/16/15 12:18 UA Blood) PM) [facility] [id number] 18:18:00 Test Item Value Reference Range Interpretation Comments UA Bili (test code = Negative *NA*(02/16/15 UA Bili) 12:18 PM) [facility] [id number] 18:18:00 Test Item Value Reference Range Interpretation Comments UA Ketones (test code Negative *NA*(02/16/15 = UA Ketones) 12:18 PM) [facility] [id number] 18:18:00 Test Item Value Reference Range Interpretation Comments UA Glucose (test code Negative (02/16/15 = UA Glucose) 12:18 PM) [facility] [id number] 18:18:00 Test Item Value Reference Range Interpretation Comments UA Mucus (test code = None Seen (02/16/15 UA Mucus) 12:18 PM) [facility] [id number] 18:18:00 Test Item Value Reference Range Interpretation Comments UA Protein (test code Negative (02/16/15 = UA Protein) 12:18 PM) [facility] [id number] 18:18:00 Test Item Value Reference Range Interpretation Comments UA pH (test code = UA pH) 6.0 1 5.0-8.0 [facility] [id number] 18:18:00 Test Item Value Reference Range Interpretation Comments UA Color (test code = Yellow *NA*(02/16/15 UA Color) 12:18 PM) [facility] [id number] 18:18:00 Test Item Value Reference Range Interpretation Comments UA Spec Grav (test code = UA Spec 1.025 1 Grav) [facility] [id number] 18:18:00 Test Item Value Reference Range Interpretation Comments UA Turbidity (test code = Clear (02/16/15 UA Turbidity) 12:18 PM) [facility] [id number] 18:18:00 Test Item Value Reference Range Interpretation Comments UA Sq Epi (test code = None Seen (02/16/15 UA Sq Epi) 12:18 PM) [facility] [id number] 18:18:00 Test Item Value Reference Range Interpretation Comments Micro? (test code = Performed (02/16/15 12:18 Micro?) PM) [facility] [id number] 18:18:00 Test Item Value Reference Range Interpretation Comments UA Leuk Est (test Negative (02/16/15 12:18 code = UA Leuk Est) PM) [facility] [id number] 18:18:00 Test Item Value Reference Range Interpretation Comments UA Nitrite (test code Negative (02/16/15 = UA Nitrite) 12:18 PM) [facility] [id number] 18:18:00 Test Item Value Reference Range Interpretation Comments UA Bacteria (test code = None Seen (02/16/15 UA Bacteria) 12:18 PM) [facility] [id number] 18:18:00 Test Item Value Reference Range Interpretation Comments UA RBC (test code = 0-2 /HPF See_Comment [Automa cesar message] The UA RBC) system which ge nerated this result tra nsmitted reference range : <=2. The reference range was not used to interpr et this result as tu l/abnormal. [facility] [id number] 18:18:00 Test Item Value Reference Range Interpretation Comments UA WBC (test code = UA WBC) 0-2 /HPF [facility] [id number] 18:18:00 Test Item Value Reference Range Interpretation Comments UA Urobilinogen (test code = UA 1.0 0.1-1.0 Urobilinogen) [facility] [id number] 18:18:00 Test Item Value Reference Range Interpretation Comments UA Blood (test code = Negative (02/16/15 12:18 UA Blood) PM) [facility] [id number] 18:18:00 Test Item Value Reference Range Interpretation Comments UA Bili (test code = Negative *NA*(02/16/15 UA Bili) 12:18 PM) [facility] [id number] 18:18:00 Test Item Value Reference Range Interpretation Comments UA Ketones (test code Negative *NA*(02/16/15 = UA Ketones) 12:18 PM) [facility] [id number] 18:18:00 Test Item Value Reference Range Interpretation Comments UA Glucose (test code Negative (02/16/15 = UA Glucose) 12:18 PM) [facility] [id number] 18:18:00 Test Item Value Reference Range Interpretation Comments UA Mucus (test code = None Seen (02/16/15 UA Mucus) 12:18 PM) [facility] [id number] 18:18:00 Test Item Value Reference Range Interpretation Comments UA Protein (test code Negative (02/16/15 = UA Protein) 12:18 PM) [facility] [id number] 18:18:00 Test Item Value Reference Range Interpretation Comments UA pH (test code = UA pH) 6.0 1 5.0-8.0 [facility] [id number] 18:18:00 Test Item Value Reference Range Interpretation Comments UA Color (test code = Yellow *NA*(02/16/15 UA Color) 12:18 PM) [facility] [id number] 18:18:00 Test Item Value Reference Range Interpretation Comments UA Spec Grav (test code = UA Spec 1.025 1 Grav) [facility] [id number] 18:18:00 Test Item Value Reference Range Interpretation Comments UA Turbidity (test code = Clear (02/16/15 UA Turbidity) 12:18 PM) Shawn Rios
--- NOTE | 2022-04-24 16:02 | RAD REPORT ---
EXAM DESCRIPTION: RADChest Single View04/24/2022 3:53 pm CLINICAL HISTORY: DYSPNEA COMPARISON: Chest Single View dated 04/14/2022; Chest Single View dated 04/13/2022; Chest Single View dated 01/30/2022; Thorax Wo Con dated 04/13/2022 TECHNIQUE: Portable AP view of the chest. FINDINGS: Right arm PICC in place, with catheter tip at the level of the superior cavoatrial junctio n. Since the prior exam, there is new complete opacification of the right hemithorax. The trachea remain s midline. New central interstitial prominence on the left, with prominent vascular markings for stre aky airspace opacities. No pneumothorax. The cardiomediastinal contours are otherwise unremarkable. IMPRESSION: New complete opacification of the right hemithorax, which could relate to right bronchia l obstruction, atelectasis, or a large effusion, or a combination of these factors. No significant le ftward mediastinal shift. No central interstitial prominence on the left, may reflect central venous congestion or pulmonary ed emily.
[2022-04-24 16:37] LABS: Absolute Lymphocytes (CBC) 2.6 K/uL (0.7-4.9); Hematocrit 28.2 % (39.6-49.0); Lymphocytes % 2.1 % (15.3-44.8); MPV 7.8 fL (7.6-11.3)
--- NOTE | 2022-04-24 16:43 | RAD REPORT ---
EXAM DESCRIPTION: US - Extrem Venous W Compress Yomi - 04/24/2022 4:11 pm CLINICAL HISTORY: Swelling COMPARISON: None. TECHNIQUE: Real-time sonographic evaluation of bilateral lower extremity deep venous system was perf ormed. FINDINGS: The patient is status post left below-knee amputation. Normal compressibility, flow augmen tation, phasic flow and spontaneous flow is identified in the evaluated bilateral lower extremity rosemary p venous system. No intraluminal filling defects seen. Lobulated cystic lesion presently left groin, measuring 4.5 x 3.9 x 3.8 centimeter, with some deeper isoechoic components. This may relate to a complex cyst or seroma, or organizing hematoma. No interna l pulsatile flow to suggest a pseudoaneurysm. IMPRESSION: No evidence of deep venous thrombosis in the evaluated bilateral lower extremities. Lobulated cystic lesion as above, which may relate to a complex cyst or seroma, or organizing hematom a.
[2022-04-24 16:45] LABS: Protime INR 2.29
[2022-04-24] MEDS ORDERED: PANTOPRAZOLE 40 MG INJ ONE (16:53)
[2022-04-24] MEDS ORDERED: NA CHLORIDE 0.9% 100 ML ONE (16:53)
[2022-04-24] MEDS ORDERED: PIPERACIL/TAZO 3.375 GM VIAL IV ONE (16:54)
[2022-04-24 17:04] LABS: Albumin 1.8 g/dL (3.4-5.0); Bilirubin Direct 0.4 mg/dL (0-0.2); Bilirubin Total 0.6 mg/dL (0.2-1.0); Magnesium 2.5 mg/dL (1.6-2.4); Potassium 5.1 mmol/L (3.5-5.1)
[2022-04-24 17:05] LABS: Troponin High Sensitivity 106.2 pg/mL (<58.9)
[2022-04-24 17:14] LABS: SARS-COV-2 RT PCR NEGATIVE (NEGATIVE)
--- NOTE | 2022-04-24 17:16 | EDPHYS ---
Physician Documentation [facility] Name: Srikanth Hummel Age: 71 yrs Sex: Male : 1950 Arrival Date: 04/24/2022 Time: 15:09 Bed 4 Private MD: ED Physician Walter Gamino HPI: 04/24 16:54 This 71 yrs old Black Male presents to ER via EMS with complaints of Respiratory lara Distress. 16:54 The patient presents with decreased range of motion, pain, swelling, tenderness. The lara complaints affect the lateral aspect of right thigh, lateral aspect of right knee, lateral aspect of right calf, medial aspect of right thigh, medial aspect of right knee, medial aspect of right calf, right quadriceps, right knee and right willett. Context: resulted from knee replacement with secondary infection, with picc and abx. Onset: The symptoms/episode began/occurred 3 week(s) ago. Modifying factors: The symptoms are alleviated by remaining still, the symptoms are aggravated by movement, bending knee. The patient has shortness of breath at rest. Onset: The symptoms/episode began/occurred last night. The patient's shortness of breath is aggravated by nothing, is alleviated by nothing. hx of advanced lung cancer, metastatic. The patient presents with confusion, decreased mental status, decreased responsiveness, trouble concentrating. Possible causes: low blood sugar, sepsis, the patient has had a history of a fever. Associated signs and symptoms: Pertinent positives: productive cough, diaphoresis. Severity of symptoms: At their worst the symptoms were severe in the emergency department the symptoms are unchanged. Associated signs and symptoms: Pertinent positives: confusion, dizziness, lightheadedness, shortness of breath, weakness. Historical: - Allergies: 15:09 No Known Allergies; aa5 - PMHx: 15:09 diabetes mellitus; Hypertensive disorder; Lung CA; aa5 - PSHx: 15:09 left leg amputation; T8 spinal FX; aa5 - Immunization history:: Adult Immunizations unknown. - Family history:: not pertinent. - Social history:: Smoking status: unknown. ROS: 16:54 Eyes: Negative for injury, pain, redness, and discharge. lara 16:54 Cardiovascular: Positive for palpitations. 16:54 Respiratory: Positive for cough, shortness of breath, at rest. 16:54 MS/extremity: Positive for erythema, pain, swelling, tenderness, of the right leg, left aka. Exam: 16:54 Cardiovascular: Rate: tachycardic, actual rate is 105 bpm, Rhythm: regular, Pulses: [facility] Pulses are 4+ in bilateral radial, brachial, femoral, popliteal, posterior tibial and and dorsalis pedis arteries.. Heart sounds: normal, Edema: 3+ edema to level of right midcalf, JVD: is noted bilaterally, to the angle of the jaw. 16:54 ECG was reviewed by the Attending Physician. Vital Signs: 15:09 BP 144 / 109; Pulse 105; Resp 52 S; Temp 98.6(A); Pulse Ox 88% on Non-rebreather mask; aa5 16:30 BP 67 / 55; Pulse 91; Resp 12; Pulse Ox 97% ; bp 17:00 BP 70 / 51; Pulse 92; Resp 11; Pulse Ox 95% ; bp 18:00 BP 79 / 65; Pulse 92; Resp 12; Pulse Ox 97% ; bp 18:30 BP 86 / 46; Pulse 95; Resp 20; Pulse Ox 96% ; bp 19:00 BP 68 / 51; Pulse 90; Resp 15; Pulse Ox 96% ; bp 19:38 Weight 110 kg; tw5 MDM: 15:13 Patient medically screened. lara 17:07 Differential diagnosis: contusion, Anemia asthma, Bronchitis CHF exacerbation, Chronic lara Obstructive Pulmonary Disease Myocardial Infarction pneumonia, Pneumothorax pulmonary edema, Pulmonary Embolism reactive airway disease, Sepsis Unstable Angina. Antibiotic administration: zosyn / vanco. Differential Diagnosis altered mental status, sepsis, flu. Differential Diagnosis: CVA, electrolyte abnormality, hypoglycemia, pneumonia, sepsis, TIA. Immunization status: Pneumococcal vaccine: within last 5 years. Influenza vaccine: within last 5 years. Data reviewed: vital signs, nurses notes, EMS record, lab test result(s), EKG, radiologic studies, doppler, plain films. Consideration of Admission/Observation Patient was admitted/placed on observation. I considered the following discharge prescriptions or medication management in the emergency department Medications were administered in the Emergency Department. See MAR. Independent interpretation of the following test(s) in the Emergency Department X-Ray: My interpretation is right lung opacification. Discussion of test interpretation with radiology: I had a discussion with radiology regarding a test interpretation. right lung , opacification total, no shift. Test considered but Not performed: CT: ct chest with iv. Historians other than the Patient: Spouse/Significant Other: . Care significantly affected by the following chronic conditions: Diabetes, Hypertension, Cancer. Counseling: I had a detailed discussion with the patient and/or guardian regarding: the historical points, exam findings, and any diagnostic results supporting the discharge/admit diagnosis, lab results, radiology results, the need to transfer to another facility, for higher level of care, [facility] does not immediately have the required specialist. 19:37 ED course: ALL DISCUSSIONS WITH THE WERE EXPLAINING THE CRITICAL CONDITION OF HER [facility] , DISCUSSION WERE ABOUT CONSIDERATION OF HOSPICE CARE. THE DAUGHTER WANTS EVERYTHING DONE, STILL ENVISIONS XRT AND CHEMO. I TOLD HER KINDLY POSSIBLE I BELIEVE HIS PROGNOSIS AND LIKELIHOOD OF SURVIVAL IS POOR AT BEST. I HOPE SHE IS CORRECT. 04/24 15:16 Order name: Basic Metabolic Panel [facility] 04/24 15:16 Order name: CBC with Diff [facility] 04/24 15:16 Order name: LFT's lara 04/24 15:16 Order name: Magnesium [facility] 04/24 15:16 Order name: NT PRO-BNP 04/24 15:16 Order name: PT-INR [facility] 04/24 15:16 Order name: Troponin HS [facility] 04/24 15:16 Order name: Lipase [facility] 04/24 15:16 Order name: Blood Culture Adult (2) [facility] 04/24 15:16 Order name: COVID-19/FLU A+B [facility] 04/24 15:16 Order name: Lactate w/ 2H reflex if indic. [facility] 04/24 15:16 Order name: Type And Screen 04/24 15:43 Order name: ABG Arterial Blood Gas; Complete Time: 15:48 EDMS 04/24 16:45 Order name: Protime (+INR); Complete Time: 17:18 EDMS 04/24 15:16 Order name: XRAY Chest (1 view) [facility] 04/24 15:16 Order name: US Extremity Venous W Compression Yomi 04/24 15:16 Order name: BIPAP [facility] 04/24 16:03 Order name: RAD; Complete Time: 16:30 EDMS 04/24 16:43 Order name: US; Complete Time: 16:50 EDMS 04/24 16:45 Order name: CBC with Automated Diff; Complete Time: 19:26 EDMS 04/24 16:57 Order name: Lactate w/ 2H reflex if indic.; Complete Time: 17:18 [facility] 04/24 17:06 Order name: Basic Metabolic Panel; Complete Time: 17:18 [facility] 04/24 17:06 Order name: Liver (Hepatic) Function; Complete Time: 17:18 [facility] 04/24 17:06 Order name: Troponin High Sensitivity; Complete Time: 17:18 [facility] 04/24 17:06 Order name: NT PRO-BNP; Complete Time: 17:18 [facility] 04/24 17:06 Order name: Magnesium; Complete Time: 17:18 [facility] 04/24 17:06 Order name: Lipase; Complete Time: 17:18 [facility] 04/24 17:14 Order name: COVID-19/FLU A+B; Complete Time: 17:18 [facility] 04/24 17:21 Order name: Manual Differential; Complete Time: 19:26 [facility] 04/24 17:23 Order name: Type and Screen; Complete Time: 19:26 [facility] 04/24 15:16 Order name: EKG; Complete Time: 15:18 [facility] 04/24 15:16 Order name: Cardiac monitoring; Complete Time: 15:19 [facility] 04/24 15:16 Order name: EKG - Nurse/Tech; Complete Time: 18:34 [facility] 04/24 15:16 Order name: IV Saline Lock; Complete Time: 16:36 [facility] 04/24 15:16 Order name: Labs collected and sent; Complete Time: 16:36 [facility] 04/24 15:16 Order name: O2 Per Protocol; Complete Time: 15:19 [facility] 04/24 15:16 Order name: O2 Sat Monitoring; Complete Time: 15:19 [facility] 04/24 15:16 Order name: Montalvo; Complete Time: 15:20 [facility] 04/24 18:59 Order name: Misc. Order: remove nitro paste; Complete Time: 19:12 [facility] EC:54 Rate is 112 beats/min. Rhythm is regular. QRS [place] is Normal. PA interval is normal. [facility] QRS interval is normal. QT interval is normal. No Q waves. T waves are Normal. No ST changes noted. Clinical impression: LVH and Sinus tachycardia. Interpreted by me. Reviewed by me. Administered Medications: 15:18 Drug: Nitro-Bid (nitroglycerin) Ointment 2 % 1 inches Route: Transdermal; Site: ph anterior chest wall; 17:47 Follow up: Response: No adverse reaction ph 15:19 Drug: Lasix (furosemide) 60 mg Route: IVP; Site: PICC; ph 17:47 Follow up: Response: No adverse reaction ph 17:20 Drug: ProTONIX (pantoprazole) 80 mg Route: IVP; Site: PICC; ph 17:47 Follow up: Response: No adverse reaction ph 18:17 Drug: Zosyn (piperacillin-tazobactam) 3.375 grams Route: IVPB; Infused Over: 60 mins; ph Site: PICC; 19:22 Drug: vancoMYCIN 1 grams Route: IVPB; Infused Over: 2 hrs; Site: PICC; ph 19:22 Drug: NS 0.9% 500 ml Route: IV; Rate: bolus; Site: PICC; ph 19:23 Drug: NS 0.9% 1000 ml Route: IV; Rate: 125 ml/hr; Site: PICC; ph 19:39 Drug: Levophed (norepinephrine) 0.1 mcg/kg/min Route: IV; Rate: calculated rate; Site: [facility] PICC; 20:25 Drug: Sodium Bicarbonate 1 amp {Note: Given to life flight to administer.} Route: IVP; [facility] Site: Other; 20:25 Drug: Sodium Bicarbonate 1 amp {Note: given to life flight to administer.} Route: IVP; [facility] Site: Other; 20:26 Drug: D5W with Sodium Bicarbonate 100 mEq/L 1000 ml {Note: given to life flight to [facility] adminster.} Route: IV; Rate: 50 ml/hr; Site: Other; Disposition Summary: 04/24/22 17:16 Transfer Ordered Transfer Location: [facility] lara Reason: Higher level of care lara Condition: Critical lara Problem: an acute exacerbation lara Symptoms: have improved lara Accepting Physician: to [facility] dr kevin juárez, thank you(04/24/22 21:21) tw5 Diagnosis - Pleural condition, unspecified lara - 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, no shift lara - Hypoxemia lara - Elevated white blood cell count, unspecified lara - Disseminated malignant neoplasm, unspecified - LUNG CANCER lara - Unspecified combined systolic (congestive) and diastolic (congestive) heart failure lara - Edema, unspecified lara - Acute kidney failure, unspecified lara - Anemia, unspecified lara - Abnormal coagulation profile lara - Severe sepsis without septic shock lara Forms: - Medication Reconciliation Form lara - SBAR form lara Signatures: Dispatcher [employer] EDWalter Villarreal MD MD cha Calderon, Audri, RN RN aa5 Melonie Degroot RN RN Walter Mabry PA PA cp Bryson, James, RN RN jb4 Debra Jarquin tw5 Corrections: (The following items were deleted from the chart) 17:19 17:16 to icu , [facility] dr kevin juárez, thank you lara lara 19:12 17:19 to icu [facility] dr kevin juárez, thank you lara lara 19:14 19:12 to icu , [facility] dr kevin juárez, thank you [facility] lara 19:14 19:14 to icu , [facility] dr kevin juárez, thank you [facility] lara 19:14 19:14 Do not resuscitate lara lara 21:21 19:14 to icu , [facility] dr kevin juárez, thank you [facility] tw5
--- NOTE | 2022-04-24 17:16 | ER ---
Nurse's Notes [facility] [place], [place] Name: Srikanth Hummel Age: 71 yrs Sex: Male : 1950 Arrival Date: 04/24/2022 Time: 15:09 Bed 4 Private MD: Diagnosis: Pleural condition, unspecified;Malignant pleural effusion-total opacification right lung, no shift;Hypoxemia;Elevated white blood cell count, unspecified;Disseminated malignant neoplasm, unspecified-LUNG CANCER;Unspecified combined systolic (congestive) and diastolic (congestive) heart failure;Edema, unspecified;Acute kidney failure, unspecified;Anemia, unspecified;Abnormal coagulation profile;Severe sepsis without septic shock Presentation: 04/24 15:09 Chief complaint: EMS states: Difficulty breathing since last night, O2 sat 75% RA upon aa5 EMS arrival, pt given A\T\A neb tx and O2 sat increased to 85%. Respiratory distress noted upon arrival, pt awake, unable to speak in complete sentences due to SOB. HX of lung cancer. 15:09 Acuity: BRENDAN 1 aa5 15:09 Method Of Arrival: EMS: [facility] aa5 15:09 Coronavirus screen: shortness of breath. Ebola Screen: Patient denies travel to an [facility]-affected area in the 21 days before illness onset. Initial Sepsis Screen: Does the patient meet any 2 criteria? RR > 20 per min. HR > 90 bpm. Yes Does the patient have a suspected source of infection? Yes:. Risk Assessment: Do you want to hurt yourself or someone else? Patient reports no desire to harm self or others. Onset of symptoms was April 23, 2022. Triage Assessment: 15:10 General: Appears distressed, uncomfortable, ill, Behavior is cooperative, appropriate bp for age, agitated, anxious. Pain: Complains of pain in right leg and left leg. EENT: No deficits noted. Neuro: Level of Consciousness is awake, alert, obeys commands, Oriented to Appropriate for age. Cardiovascular: Rhythm is sinus tachycardia. Respiratory: Reports shortness of breath air hunger Breath sounds are diminished in right upper lobe, right middle lobe and right lower lobe Onset: The symptoms/episode began/occurred today, the patient has severe shortness of breath. GI: Abdomen is round. : No signs and/or symptoms were reported regarding the genitourinary system. Derm: Wound noted right leg. Musculoskeletal: Range of motion: limited in left knee and right knee. Historical: - Allergies: 15:09 No Known Allergies; aa5 - PMHx: 15:09 diabetes mellitus; Hypertensive disorder; Lung CA; aa5 - PSHx: 15:09 left leg amputation; T8 spinal FX; aa5 - Immunization history:: Adult Immunizations unknown. - Family history:: not pertinent. - Social history:: Smoking status: unknown. Screenin:30 [facility] ED Fall Risk Assessment (Adult) History of falling in the last 3 months, bp including since admission No falls in past 3 months (0 pts). Abuse screen: Denies threats or abuse. Denies injuries from another. Nutritional screening: Difficulty chewing/swallowing? Yes. Tuberculosis screening: No symptoms or risk factors identified. Assessment: 15:10 General: VENT AND RT AT /S. PT UNABLE TO MAKE WORDS 2/2 SOB. bp 16:30 Reassessment: Phlebotomy at bedside to collect blood cultures. ph 17:30 Reassessment: Phlebotomy at bedside attempting to collect blood cultures. DR LEW AT B/S WITH FAMILY. 18:30 Cardiovascular: Rhythm is sinus rhythm. bp 18:30 Reassessment: TRANSFER INITATED, ACCEPTANCE PENDING. bp 19:15 : Urine is tea colored. tw5 19:16 General:. Neuro:. Respiratory: Airway is patent Respiratory effort is even. tw5 19:27 Reassessment: LIFE FLIGHT AT /S. REPORT TO CAROLINA CONNELLY AT [facility] [id number] BED 1. bp 21:21 Reassessment: Pt remains in the care of life flight. Updated report called, pt jb4 transferred out. Vital Signs: 15:09 BP 144 / 109; Pulse 105; Resp 52 S; Temp 98.6(A); Pulse Ox 88% on Non-rebreather mask; aa5 16:30 BP 67 / 55; Pulse 91; Resp 12; Pulse Ox 97% ; bp 17:00 BP 70 / 51; Pulse 92; Resp 11; Pulse Ox 95% ; bp 18:00 BP 79 / 65; Pulse 92; Resp 12; Pulse Ox 97% ; bp 18:30 BP 86 / 46; Pulse 95; Resp 20; Pulse Ox 96% ; bp 19:00 BP 68 / 51; Pulse 90; Resp 15; Pulse Ox 96% ; bp 19:38 Weight 110 kg; tw5 ED Course: 15:09 Patient arrived in ED. ph 15:09 Arm band placed on Patient placed in an exam room, on a stretcher. aa5 15:13 Walter Gamino MD is Attending Physician. lara 15:16 Montalvo cath inserted, using sterile technique, 18 Fr., by me, balloon inflated, to sg5 gravity drainage. 15:25 Triage completed. aa5 15:30 Accessed PICC line. bp 15:30 Patient has correct armband on for positive identification. Bed in low position. Call bp light in reach. Side rails up X2. Adult w/ patient. 15:36 Alfred Ford, RN is Primary Nurse. bp 15:50 call placed to [facility] to initiate transfer; no answer, em1 call dropped. 15:55 Call placed to [facility] to initiate transfer; no answer, em1 call dropped. 15:58 call placed to [facility] Transfer [facility] to initiate transfer; spoke with Guillermina Bravo. em1 19:05 Administrative acceptance and bed assignment given by Guillermina Bravo [facility]. em1 19:15 Troponin HS Sent. tw5 19:15 PT-INR Sent. tw5 19:15 NT PRO-BNP Sent. tw5 19:15 Magnesium Sent. tw5 19:15 LFT's Sent. tw5 19:15 CBC with Diff Sent. tw5 19:15 Basic Metabolic Panel Sent. tw5 19:15 Lipase Sent. tw5 19:15 Blood Culture Adult (2) Sent. tw5 19:15 COVID-19/FLU A+B Sent. tw5 19:15 Lactate w/ 2H reflex if indic. Sent. tw5 19:15 No provider procedures requiring assistance completed. Patient transferred, IV remains tw5 in place. Administered Medications: 15:18 Drug: Nitro-Bid (nitroglycerin) Ointment 2 % 1 inches Route: Transdermal; Site: ph anterior chest wall; 17:47 Follow up: Response: No adverse reaction ph 15:19 Drug: Lasix (furosemide) 60 mg Route: IVP; Site: PICC; ph 17:47 Follow up: Response: No adverse reaction ph 17:20 Drug: ProTONIX (pantoprazole) 80 mg Route: IVP; Site: PICC; ph 17:47 Follow up: Response: No adverse reaction ph 18:17 Drug: Zosyn (piperacillin-tazobactam) 3.375 grams Route: IVPB; Infused Over: 60 mins; ph Site: PICC; 19:22 Drug: vancoMYCIN 1 grams Route: IVPB; Infused Over: 2 hrs; Site: PICC; ph 19:22 Drug: NS 0.9% 500 ml Route: IV; Rate: bolus; Site: PICC; ph 19:23 Drug: NS 0.9% 1000 ml Route: IV; Rate: 125 ml/hr; Site: PICC; ph 19:39 Drug: Levophed (norepinephrine) 0.1 mcg/kg/min Route: IV; Rate: calculated rate; Site: [facility] PICC; 20:25 Drug: Sodium Bicarbonate 1 amp {Note: Given to life flight to administer.} Route: IVP; [facility] Site: Other; 20:25 Drug: Sodium Bicarbonate 1 amp {Note: given to life flight to administer.} Route: IVP; [facility] Site: Other; 20:26 Drug: D5W with Sodium Bicarbonate 100 mEq/L 1000 ml {Note: given to life flight to [facility] adminster.} Route: IV; Rate: 50 ml/hr; Site: Other; Medication: 19:15 VIS not applicable for this client. tw5 Outcome: 17:16 ER care complete, transfer ordered by . lara 19:40 Transferred by helicopter to [facility]. tw 19:40 Transferred Transfer form completed. X-rays sent w/ patient. Note: bedside report given to life flight 19:40 Condition: stable 19:40 Discharge instructions given to family, Instructed on the need for transfer. 21:21 Patient left the ED. tw5 Signatures: Walter Gamino MD MD cha Martinez, Eric em1 Nkechi Waite, RN RN aa5 Melonie Degroot RN RN Shoaib Vale, GODWIN RN jb4 Alfred Ford, Debra Palma RN tw5 Mirella Cotton RN RN sg5 Corrections: (The following items were deleted from the chart) 15:59 15:55 Call placed to [facility] to initiate transfer; no em1 answer, call dropped em1 18:33 17:30 Reassessment: Phlebotomy at bedside attempting to collect blood cultures ph bp
[2022-04-24 17:20] LABS: Toxic Granulation 3+
[2022-04-24 17:21] LABS: Blood Morphology Comment NOT SEEN (NOT SEEN); Platelet Estimate ADEQ
[2022-04-24] MEDS ORDERED: NA CHLORIDE 0.9% 250 ML ONE (19:23)
[2022-04-24] MEDS ORDERED: VANCOMYCIN 1 GM/VIAL ONE (19:23)
[2022-04-24] MEDS ORDERED: NA CHLORIDE 0.9% 500 ML ONE (19:23)
[2022-04-24] MEDS ORDERED: NOREPINEPHRINE BITARTRATE/D5W 4 MG/250 ML BAG IV ONE (19:44)
[2022-04-24] MEDS ORDERED: SODIUM BICARB 50 MEQ/50ML VIAL ONE (20:07)
[2022-04-24] MEDS ORDERED: D5W 1,000 ML IV ONE (20:08)
[2022-04-24 21:28] VITALS: TEMP 98.6
[2022-04-24 21:32] VITALS: O2SAT 96
[2022-04-24 21:33] VITALS: BP 68/51
[2022-04-24 21:58] LABS: Arterial Blood Carboxyhemoglob 1.4 % (0-1.5); Blood Gas Oxyhemoglobin 89.1 % (94-97); Blood O2 Saturation 91.9 % (92-98.5)
--- NOTE | 2022-04-25 15:23 | EKG ---
Test Date: 2022-04-24 Test Time: 15:12:04 Drying Room Operator: ELIZABET MEASUREMENT RESULTS: Intervals: Rate: 112 NH: 164 QRSD: 82 QT: 354 QTc: 483 [place]: P: -7 NH: 164 QRS: -23 T: 54 INTERPRETIVE STATEMENTS: Sinus tachycardia with premature supraventricular complexes and fusion complexes Minimal voltage criteria for LVH, may be normal variant Borderline ECG Compared to ECG 01/30/2022 18:04:34 Atrial premature complex(es) now present Fusion complex(es) now present Left ventricular hypertrophy now present Electronically Signed On 04-25-22 15:20:05 [employer]ER by Jovi Smallwood
--- NOTE | 2022-04-26 16:33 | EKG ---
Test Date: 2022-04-24 Test Time: 15:13:28 Business Performance Analyst: ELIZABET MEASUREMENT RESULTS: Intervals: Rate: 110 NH: 166 QRSD: 82 QT: 338 QTc: 457 [place]: P: 1 NH: 166 QRS: -24 T: 21 INTERPRETIVE STATEMENTS: Sinus tachycardia with fusion complexes Minimal voltage criteria for LVH, may be normal variant Borderline ECG Compared to ECG 04/24/2022 15:12:04 Atrial premature complex(es) no longer present Electronically Signed On 04-26-22 16:30:28 TETRYL SCREEN OPERATOR by Jovi Smallwood
== END 2022-04-24 21:21 | disposition short-term general hospital (02) ==
LOC: ER 15:04
DX: C34.90 Malignant neoplasm of unspecified part of unspecified bronchus or lung (principal); J91.0 Malignant pleural effusion; A41.9 Sepsis, unspecified organism; R65.20 Severe sepsis without septic shock; N17.9 Acute kidney failure, unspecified; I50.9 Heart failure, unspecified; D72.829 Elevated white blood cell count, unspecified; R60.9 Edema, unspecified; D64.9 Anemia, unspecified; R79.1 Abnormal coagulation profile; E11.9 Type 2 diabetes mellitus without complications; I10 Essential (primary) hypertension; Z20.822 Contact with and (suspected) exposure to COVID-19
CPT/HCPCS: 93005; 87040; 85025; 80048; 36415; 86900; 83735; 86850; 85610; 86901; 80076; 83605; 84484; 83690; 83880; 0240U; 71045; 93970; 82805 ×2; 94660; 51702; 99291; 99292; J2543; C9113; J3370; J7050; J7040